=== PATIENT | male | born 1945 | race Caucasian/White ===

== ENCOUNTER 2016-10-09 22:50 | Inpatient (IN) | payer OTHER ==
[~2016-10-09] VITALS: Ht 167.6 cm; Wt 111.5 kg
[~2016-10-09 22:50] MED LIST: ASCO500T16 PO; B CO1CAP2 PO; CHOL1TAB42 PO; DIGO0.1267 PO; FRS/40 PO; HYDR-4079 PO; LISI-788 PO; LOVA10TA3 PO; MULT-506 PO; OMEP40CA PO; POTA20TA16 PO
[2016-10-09] MEDS ORDERED: HYDROCODONE/ACETAMOPHEN 5/325MG TAB PO ONE (23:45)
[2016-10-10] MEDS ORDERED: OXYC-164 PO (01:51)
--- NOTE | 2016-10-10 02:05 | EMERGENCY ROOM VISIT NOTE ---
ED Visit Note First contact with patient: 23:30 I saw this patient in conjunction with Farhan Key PA-C. I agree with his decision-making and treatment plan.
[2016-10-10] MEDS ORDERED: ONDANSETRON INJ 2 MG/ML 2 ML VIAL IV PRN (02:30)
[2016-10-10] MEDS ORDERED: OXYCODONE HCL IR 5 MG TAB (IMMEDIATE RELEASE) ONE (02:33)
[2016-10-10] MEDS: OXYCODONE HCL IR 5 MG TAB (IMMEDIATE RELEASE) PO PRN ×4 (02:36→21:30)
[2016-10-10] MEDS ORDERED: ALBUTEROL 0.083% NEBU SOLN 3 ML VIAL INH PRN (02:45)
[2016-10-10] MEDS ORDERED: IV FLUIDS COMPLETED PRN (02:45)
--- NOTE | 2016-10-10 03:34 | HISTORY & PHYSICAL EXAMINATION ---
DATE OF ADMISSION: 10/09/2016 PRIMARY CARE PHYSICIAN: Dr. Perry. CHIEF COMPLAINT: Status post fall in ice with the injury to the left knee. HISTORY OF PRESENT COMPLAINT: He is a 71-year-old male with significant past medical history including Yairvpk-Nivgo-Pswsf disease with bilateral drop feet, hypertensive heart disease, type 2 diabetes, atrial fibrillation, COPD, chronic kidney disease, peripheral vascular disease, tobacco use/disorder, apparently was outside and walking with a walker and he slipped on ice and fell and injured the left knee with swelling of the knee joint and painful knee joint. He could not get up and ambulance was called in and he was brought into the Emergency Room for further evaluation. At ER x-ray did show swelling in the patellar area, but no fracture, but he was unable to move around. From that point, he was advised for admission. 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 PAST SURGICAL HISTORY: Laparoscopic cholecystectomy, partial amputation of toes 10 years before, neck C-spine fusion by Dr. Conde in 2013. FAMILY HISTORY: Mother had CAD along with COPD. SOCIAL HISTORY: He is single. He has 4 children. He lives alone. He gets some home health. He smokes about half a pack to 1 pack per day. He does not drink and he has been mobile with a walker and he uses a walking boot in both the legs. REVIEW OF SYSTEMS: CENTRAL NERVOUS SYSTEM: No headache, no blurred vision, no numbness or tingling in the extremities negative. RESPIRATORY: No fevers, chills or rigors. No cough or phlegm. No shortness of breath. CARDIOVASCULAR: No chest pain, palpitation. GASTROINTESTINAL: No abdominal pain, nausea, vomiting. GENITOURINARY: No problem with urine or bowel habits. MUSCULOSKELETAL: He does have pain in the left knee with swelling status post fall and injury. Generally he does have swelling in both the legs, chronic in nature with some chronic skin changes and deformity in both the feet. ENT: No acute symptoms. ALLERGIES: PENICILLIN. MEDICATIONS: He has been on ascorbic acid 5 mg daily, aspirin 81 mg daily, Coreg 12.5 mg b.i.d., digoxin 0.125 mg daily, Advair Diskus 250/50 one puff b.i.d., Neurontin 300 mg t.i.d., Glimepiride 2 mg daily, lisinopril/HCTZ 1 tablet daily 20 mg/25, magnesium 400 mg daily, metformin 1000 mg b.i.d., multivitamin 1 tablet daily, niacin extended release 1000 mg twice daily, Flomax 0.4 mg daily, B complex 1 tablet daily, vitamin D 5000 units daily, Mevacor 10 mg at bedtime, omeprazole 40 mg daily, and oxycodone 10 mg q. 6 hourly p.r.n. PHYSICAL EXAMINATION: GENERAL: On examination in the Emergency Room, he was having some pain in the left knee, especially with any movement. HEENT: Unremarkable. VITAL SIGNS: Temperature was 36.6, pulse was 79, blood pressure 132/77, saturation 95% on room air. HEENT: Unremarkable. NECK: Supple. No JVD, no bruit. CHEST: Clear to auscultation bilaterally. HEART: S1, S2 regular. ABDOMEN: Soft, benign, nontender, no organomegaly. Bowel sounds present. EXTREMITIES: Bilaterally edema 1+, chronic skin changes and deformity of both the feet. Examination of the left knee showed swelling of the left knee, especially anteriorly, there may be fluid in the knee joint and some minor abrasion involving the anterior aspect of the knee. CENTRAL NERVOUS SYSTEM: Alert, awake, oriented x3. LABORATORY DATA: Noted today CBC, PRP, PT INR pending. X-ray of the knee did show swelling of the knee joint, but no definite fracture. The full report has been pending. IMPRESSION AND PLAN: 1. Mechanical fall with injury to the left knee. He has swelling of the left knee with some fluid, no obvious fracture. He cannot ambulate with this pain. He will be admitted to medical floor. Ortho evaluation in the morning. PT, OT and go from there. 2. Diabetes type 2. We will hold his oral diabetic medications and put him on sliding scale coverage while in the hospital. Check hemoglobin A1c. 3. Chronic obstructive pulmonary disease, moderate in nature. Continue with his inhalers. No acute exacerbations. 4. Nffchkr-Mkwdu-Rovid disease, has bilateral footdrop and uses specialized foot in both the legs. 5. Paroxysmal atrial fibrillation, does take only aspirin, but no anticoagulation, no acute issues at this time. 6. Chronic kidney disease, seems to be stable. We will monitor. 7. Hypertriglyceridemia. Continue with current medications. Will check his level tomorrow. 8. Gastrointestinal prophylaxis with proton pump inhibitors. 9. Deep venous thrombosis prophylaxis with subQ heparin. CODE STATUS: He will be a full code. In my clinical judgment, the beneficiary meets criteria as per CMS for 2 midnight stay in the hospital. PRABHAKAR
[2016-10-10 04:05] VITALS: BP 145/89; PULSE 78; TEMP 36.6; Ht 167.6 cm; Wt 111.5 kg
[2016-10-10] MEDS ORDERED: GLUCAGON FOR INJ 1 MG VIAL SQ PRN (04:15)
[2016-10-10] MEDS ORDERED: GLUCOSE 10 TABS/TUBE PO PRN (04:15)
[2016-10-10] MEDS ORDERED: GLUCOSE 40% GEL 15 GM TUBE PO PRN (04:15)
[2016-10-10] MEDS ORDERED: DEXTROSE 50% 50 ML SYR IV PRN (04:15)
[2016-10-10] MEDS ORDERED: NURSING VERBAL MED ORDER ONE (06:30)
[2016-10-10] MEDS ORDERED: OXYCODONE HCL IR 5 MG TAB (IMMEDIATE RELEASE) PO STA (06:30)
[2016-10-10 06:44] LABS: HEMATOCRIT 44.3 % (42-52); MEAN CELL VOLUME 92.7 fL (80-100); MEAN CORPUSCULAR HEMOGLOBIN 31.4 pg (25-34); MEAN CORPUSCULAR HGB CONC 33.9 g/dl (32-36); MEAN PLATELET VOLUME 11.6 fL (7.4-10.4); PLATELET COUNT 163 K/uL (130-400); RED BLOOD COUNT 4.78 M/uL (4.7-6.1); WHITE BLOOD COUNT 9.53 K/uL (4.8-10.8)
[2016-10-10 06:52] LABS: PARTIAL THROMBOPLASTIN RATIO 1.1; PROTHROMBIN TIME (PATIENT) 10.7 SECONDS (9.0-12.0)
[2016-10-10 07:05] VITALS: BP 123/68; PULSE 71; TEMP 36.6; O2SAT 93
[2016-10-10 07:15] LABS: BUN/CREATININE RATIO 25.9 (10-20); CALCIUM 9.5 mg/dl (8.5-10.1); CREATININE 0.86 mg/dl (0.60-1.40); POTASSIUM 3.8 mmol/L (3.5-5.1)
--- NOTE | 2016-10-10 07:34 | EMERGENCY ROOM VISIT NOTE ---
History First contact with patient: 23:30 Chief Complaint: KNEEPAIN Stated Complaint: DIABETES 1.5, MANAGED TYPE 2; INJURY-LEFT KNEE History of Present Illness The patient is a 71 year old male who presents to the Emergency Department via EMS for evaluation of his LEFT knee injury. The patient reports that he was ambulating outside his apartment complex this evening when he slipped on ice causing him to fall under a bent LEFT knee. He reports that he was unable to gather himself from the ground which forced him to contact emergency medical services. He initially was helped into his house, but it was obvious that he was unable to bear weight on the affected knee which prompted them to bring the patient to the emergency Department for further evaluation and management. The patient reports that he already walks with a walker secondary to weakness and instability. He reports increasing pain with attempts at weightbearing. He rates his current discomfort as an 8/10. He denies any numbness or tingling into the distal extremity. He denies any headaches, dizziness, lightheadedness , or chest pain prior to the fall. Currently, he denies any neck pain, headaches, chest pain, abdominal pain, low back pain, or other injury. The patient does take hydrocodone daily for ongoing pain control. He has not taken any medications prior to arrival in the emergency department. Review of Systems A complete 10-point Review of Systems was discussed with the patient, with pertinent positives and negatives listed in the History of Present Illness. All remaining Review of Systems questions can be considered negative unless otherwise specified. Past Medical/Surgical History Medical Problems: (1) Atrial fibrillation (2) Benign hypertension (3) Wrupopm-Rhger-Smjlv disease (4) Cholecystitis (5) CMT (Kgeqbvl-Uhjmn-Skeug disease) (6) COPD (chronic obstructive pulmonary disease) (7) Diabetes 1.5, managed as type 2 (8) Diabetes mellitus type 2 (9) Emphysema (10) Heart failure (11) Hyperlipidemia (12) Injury of left knee (13) Spinal stenosis in cervical region (14) Tobacco user Surgical Problems: (1) Hx of tonsillectomy (2) S/P cervical spinal fusion Family History Diabetes mellitus FHx: cancer FHx: gallbladder disease FHx: lung disease Hypertension Social History Smoking Status: Current Every Day Smoker Alcohol Use: none Drug Use: none Marital Status: Occupation Status: disabled Current/Historical Medications Scheduled Ascorbic Acid (Ascorbic Acid), 500 MG PO DAILY Aspirin Enteric Coated (Ecotrin Or Generic), 81 MG PO DAILY B Complex W/ C (Super B Complex/C), 1 TAB PO DAILY Carvedilol (Coreg), 12.5 MG PO BID Cholecalciferol (Vitamin D), 5,000 UNITS PO QPM Digoxin (Lanoxin), 0.125 MG PO DAILY Fluticasone Prop/Salmeterol (Advair Diskus 250/50 60 Dose), 1 PUFF INH BID Gabapentin (Neurontin), 300 MG PO TID Glimepiride (Glimepiride), 2 MG PO DAILY Lisinopril/Hctz (Zestoretic 20MG/25MG), 1 TAB PO DAILY Lovastatin (Mevacor), 10 MG PO HS Magnesium Oxide (Mag-Ox), Unknown Dose PO DAILY Metformin Hcl (Glucophage), 1,000 MG PO BID Multivitamin (Multivitamin), 1 TABLET PO DAILY Niacin Ext Rel (Niaspan Ext Rel), 1,000 MG PO AMHS Omeprazole (Prilosec), 40 MG PO DAILY Tamsulosin Hcl (Flomax), 0.4 MG PO HS Scheduled PRN Oxycodone Hcl (Oxycodone Hcl), 10 MG PO Q6 PRN for Pain Allergies Coded Allergies: Penicillins (Verified Allergy, Mild, RASH, 10/10/16) Physical Exam Vital Signs Date Time Temp Pulse Resp B/P Pulse Ox O2 Delivery O2 Flow Rate FiO2 10/10/16 02:13 81 18 130/70 94 Room Air 10/09/16 22:59 36.6 79 16 132/77 95 Room Air Pain Rating (0-10): 8 Physical Exam VITAL SIGNS - Vital signs and nursing notes were reviewed. GENERAL - 71-year-old male appearing his stated age and in noticeable discomfort throughout the exam. MUSCULOSKELETAL - LEFT knee with moderate edema and abrasion in the infrapatellar area. Moderate tenderness to palpation appreciated over the anterior surface of the knee and infrapatellar area. +3/5 strength appreciated LEFT versus right secondary to patient discomfort. Unable to lift his heel from the bed. Pain with manipulation of the patella. NEUROLOGIC/VASCULAR - Neurovascularly intact distally with +2/5 dorsalis pedis pulses palpated bilaterally. Normal sensation to light and sharp touch appreciated distally. Medical Decision & Procedures ER Provider Diagnostic Interpretation: X-ray of the LEFT knee demonstrates moderate degenerative changes in the infrapatellar area without acute fracture appreciated. The patella does appear to be high riding. Radiologist's impression unavailable at the time of dictation. Medications Administered Medications (Trade) Dose Ordered Sig/Katherine Route Start Time Stop Time Status Last Admin Dose Admin Acetaminophen/ Hydrocodone Bitart (Melville 5/325 Tab) 2 tab NOW ONCE PO 10/09/16 23:45 10/09/16 23:46 DC 10/09/16 23:45 2 TAB Oxycodone HCl (Roxicodone Immediate Rel Tab) 10 mg Q6 PRN PO 10/10/16 02:15 11/09/16 02:14 10/10/16 02:36 10 MG ED Course Patient was seen and evaluated by myself. Patient was provided 2 Melville for his complaints of pain. X-ray of the affected knee was obtained. Imaging results were reviewed by myself and my attending physician and reviewed with the patient who acknowledges understanding. The patient was placed in a knee immobilizer. Ambulatory trial was performed with nursing staff. The patient was found to be very unsteady on his feet and unable to bear significant amounts of weight. Daughter is not comfortable with the patient being discharged home and patient does not feel that he will be able to ambulate well either. Case was reviewed with the [facility] hospitalist who agrees to admit the patient for evaluation and management. Patient admitted in stable condition. Medical Decision Given the patient's presentation and exam findings, I did elect to perform the above-mentioned workup. The patient sustained a mechanical fall on the anterior surface of the knee. He has moderate reproducible tenderness to palpation in this area. I do not appreciate an acute fracture through the patella, however have the patella does appear somewhat high riding on lateral view of the x-ray. There is concern for possible patella tendon injury versus rupture, particularly given the fact the patient is unable to perform full extension while laying flat. His pain was adequately controlled the emergency department, however he had increasing pain and instability with attempted ambulation even with a walker. The patient's medical history is complicated by his Wvjlphq-Sujbp-Qzesa which already registered patient weak and unstable. Because of this, I'm not comfortable with the patient being discharged home in the care of his daughter. I do feel that he warrants evaluation from orthopedics as well as possible rehabilitation placement pending x-ray readings from radiology. Regardless, the patient will be admitted to the [facility] for continued management. Patient admitted in stable condition. In the evaluation and treatment of this patient, the following differential diagnoses were considered: Patellar Fracture, Tibial Plateau Fracture, Distal Femur Fracture, ACL Injury, PCL Injury, Collateral Ligament Injury, Pes Anserine Bursitis, Maisonneuve Fracture. Impression Primary Impression: Contusion of knee, left Additional Impressions: Fall due to ice or snow Patellar tendon rupture Departure Information Dispostion Still a Patient Condition FAIR Referrals Mohan Perry M.D. (PCP) Forms HOME CARE DOCUMENTATION FORM, IMPORTANT VISIT INFORMATION Patient Instructions [facility] Problem Qualifiers Additional Impressions: Fall due to ice or snow Encounter type: initial encounter Qualified Codes: W00.9XXA - Unspecified fall due to ice and snow, initial encounter Patellar tendon rupture Encounter type: initial encounter Laterality: left Qualified Codes: S86.812A - Strain of other muscle(s) and tendon(s) at lower leg level, left leg , initial encounter
--- NOTE | 2016-10-10 09:15 | DIAGNOSTIC IMAGING REPORT ---
LEFT KNEE 3 VIEWS CLINICAL HISTORY: Fall with left knee pain. FINDINGS: AP, crosstable lateral, and sunrise views of the left knee are obtained. No prior studies are available for comparison at the time of dictation. The skeletal structures are osteopenic. There is no radiographic evidence of fracture. There is moderate tricompartmental degenerative joint space narrowing, greatest in the lateral and patellofemoral compartments. There are large marginal osteophytes as well as large patellar enthesophytes. Chondrocalcinosis is present in the medial and lateral compartment. There is a joint effusion. Prepatellar soft tissue edema is noted. Foci of atherosclerotic calcification are seen in the popliteal artery. IMPRESSION: 1. Joint effusion and prepatellar soft tissue swelling. No acute fracture is identified. 2. Osteopenia with degenerative change and chondrocalcinosis as above. Electronically signed by: Eric Escalera M.D. 10/10/2016 9:13 AM Dictated Date/Time: 10/10/2016 9:11 AM
[2016-10-10] MEDS: HEPARIN SOD 5000 UNIT/0.5 ML CARP SQ SCH ×2 (10:11→16:03)
[2016-10-10] MEDS: INSULIN ASPART 100 UNITS/ML 3 ML PEN SC SCH ×4 (10:13→21:19)
[2016-10-10] MEDS: FLUTICASONE/SALMETEROL 250/50 (ADVAIR) 14 PUFF/1 INHALER INH SCH ×2 (10:14→21:01)
[2016-10-10] MEDS: ASPIRIN 81 MG ECTAB PO SCH (10:15)
[2016-10-10] MEDS: MAGNESIUM OXIDE 400 MG TAB PO SCH (10:16)
[2016-10-10] MEDS: GABAPENTIN 300 MG CAP PO SCH ×3 (10:16→21:01)
[2016-10-10] MEDS: MULTIVITAMIN TAB PO SCH (10:16)
[2016-10-10] MEDS: NIASPAN 500 MG TABCR PO SCH ×2 (10:17→21:06)
[2016-10-10] MEDS: LISINOPRIL/HCTZ 20/25MG TAB PO SCH (10:18)
[2016-10-10] MEDS: PANTOprazole SOD 40 MG TAB PO SCH (10:19)
[2016-10-10] MEDS: CARVEDILOL 12.5 MG TAB PO SCH ×2 (10:19→21:04)
[2016-10-10] MEDS: ASCORBIC ACID 500 MG TAB PO SCH (10:19)
[2016-10-10] MEDS: VITAMIN B COMPLEX TAB PO SCH (10:19)
--- NOTE | 2016-10-10 12:29 | Orthopedic Progress Note ---
Orthopedic Progress Note Date of Service Oct 10, 2016. Subjective Additional Notes: Fall onto left knee. Consult dictated. Objective See consult for exam. Date Time Temp Pulse Resp B/P Pulse Ox O2 Delivery O2 Flow Rate FiO2 10/10/16 07:30 Room Air 10/10/16 07:05 36.6 71 16 123/68 93 Room Air 10/10/16 04:05 Room Air 10/10/16 04:05 36.6 78 18 145/89 Room Air 10/10/16 03:31 78 18 145/89 95 10/10/16 02:13 81 18 130/70 94 Room Air 10/09/16 22:59 36.6 79 16 132/77 95 Room Air Laboratory Results 24 Hours: Test 10/10/16 06:18 Hematocrit 44.3 % Hemoglobin 15.0 g/dL Prothromb Time International Ratio 1.0 Prothrombin Time 10.7 SECONDS Assessment & Plan Assessment: Left knee effusion Left knee contusion with probable acute on chronic pain/effusion of left knee osteoarthritis. Plan: Consult dictated to consider aspiration and injection. The meds have been sent by pharmacy. Dr. Potts reviewed the films and would like to obtain a CT of the left knee prior to any steroid injection. CT left knee ordered to r/o tibial plateau fx. Discharge Planning Discharge Planning: uncertain
--- NOTE | 2016-10-10 12:43 | CONSULTATION REPORT ---
DATE OF ADMISSION: 10/10/2016 SUBJECTIVE AND CHIEF COMPLAINT: Left knee pain. HISTORY OF PRESENT ILLNESS: This is a patient who sustained a fall yesterday on 10/09/2016 when he slipped on ice surface. He states he has fallen on to the anterior aspect of the left knee; however, when he fell the knee also flexed behind him significantly more than what happened in recent years. He has significant pain, swelling and was unable to ambulate. He was brought to the Emergency Room here at [facility] where x-rays were performed because of his inability to ambulate and his history of living alone, it was felt that he should be admitted for orthopedic evaluation and also for pain management. Today, he states that the knee is feeling a little bit better that it can be examined a little more today, whereas yesterday he was unable to have the Emergency Room staff do much of an exam. PAST MEDICAL HISTORY: Zfmmfst-Jisad-Nopdw with bilateral footdrop, bilateral lower extremity neuropathy, hypertension, coronary artery disease, type 2 diabetes, atrial fibrillation, COPD, chronic kidney disease, peripheral vascular disease, history of tobacco use, GERD, hypercholesterolemia and benign prostatic hypertrophy. PAST SURGICAL HISTORY: Cholecystectomy, partial amputation of toes and a C spine fusion by Dr. Conde in 2012. FAMILY HISTORY: Noncontributory. SOCIAL HISTORY: The patient is single. He has 4 children and he lives alone. He is a tobacco user. He smokes approximately half to 1 pack per day. Denies alcohol use. ALLERGIES: No known drug allergies. CURRENT MEDICATIONS: Aspirin 81 mg p.o. daily, Coreg 12.5 mg b.i.d., ascorbic acid 5 mg p.o. daily, digoxin 0.125 mg p.o. daily, Advair Diskus 250/50 one puff b.i.d., Neurontin 300 mg p.o. t.i.d., glimepiride 2 mg 1 p.o. daily, lisinopril/HCTZ 20/25 mg 1 p.o. daily, magnesium 400 mg p.o. daily, metformin 1000 mg p.o. b.i.d., multivitamin p.o. daily, niacin extended release 1000 mg p.o. b.i.d., Flomax 0.4 mg p.o. daily, vitamin B complex 1 tablet p.o. daily, vitamin D 5000 units p.o. daily, Mevacor 10 mg 1 p.o. at bedtime, omeprazole 40 mg daily, and oxycodone 10 mg one every 6 hours p.r.n. pain. OBJECTIVE PHYSICAL EXAMINATION: GENERAL: The patient is alert and oriented x3. He is in no acute distress. He is a well-dressed, well-nourished 71-year-old male whose affect is appropriate. He is lying comfortably in bed; however, with any motion of his left knee there is moderate to severe pain within the left knee. MUSCULOSKELETAL: Upon inspection of the patient's left lower extremity he is noted to have moderate swelling of the left lower extremity, he has edema in bilateral lower extremities to the knee. There is an abrasion on the anterior aspect of the left knee that is covered with a bandage. There is no ecchymosis or erythema noted. He is noted to have a moderate joint effusion within the left knee. With palpation of the left knee, he has tenderness throughout the entire knee particularly at the medial aspect of the knee. There is no obvious palpable deformities. With motion of the patella, with the leg straight there is pain elicited. Any passive range of motion is difficult with the patient lying down. However, the patient was able to sit up at the bedside with passive flexion with gravity to approximately 80 degrees of flexion. With active range of motion he is able to extend his knee to approximately negative 15 degrees demonstrating the extensor mechanism of the knee to be intact. Strength testing of lower extremity is inhibited secondary to pain. SKIN: As previously noted, there is an abrasion on the anterior aspect of the left knee; however, there are no other scars or rashes noted. NEUROLOGIC: Sensation is decreased bilateral lower extremities in a stocking distribution. Neurovascularly the patient is intact left lower extremity with dorsalis pedis and posterior tib pulse +1/4. Capillary refill is approximately 2 seconds. Light touch is intact, however, there are paresthesias noted. The knee is slightly worsened on the left side today possibly secondary to inflammation within the left knee. X-RAY EXAM: Multiple views of the left knee demonstrate moderate to severe tricompartmental osteoarthritis of the knee. There is subchondral sclerosis and significant spurring noted. There are no fractures or dislocations noted. ASSESSMENT AND DIAGNOSES: 1. Left knee effusion. 2. Left knee contusion with fall on to the anterior aspect of the left knee and a hyperflexion injury. 3. Left knee osteoarthritis with probable acute on chronic inflammation within the left knee. PLAN: Above assessment was discussed with the patient and his daughter who is present. The daughter was also on the phone with another sibling with whom I had a conversation throughout the exam. At this time, it was discussed that the patient was feeling well enough to be discharged home and medicine felt that he was doing well enough, he certainly could be discharged home with a left knee brace or possible left knee immobilizer for comfort and follow up as an outpatient in our [facility] office this week for probable aspiration and injection of the left knee. If he is going to be here throughout today and overnight until tomorrow, we will order a 60 mL syringe with an 18 gauge needle for aspiration of the left knee and also an injection of 4 mL of 0.5% Marcaine plain and 2 mL of 80 mg per mL of Depo-Medrol to be injected into the knee after the aspiration is performed. We will continue to plan for aspiration and injection tomorrow if the patient is going to be here. Otherwise, we will see him on an outpatient basis. Thank you for the consult and allowing our participation in the care of this patient. We will continue to follow the patient through his admission. ADDENDUM: X-rays were reviewed by Dr. Potts and a CT of the knee was recommended to r/o occult fx. Will await results of CT scan before any aspiration and injection. PRABHAKAR
[2016-10-10] MEDS ORDERED: BUPIVACAINE 0.5 % 5 MG/1 ML MPF 30ML VIAL IA SCH (13:00)
[2016-10-10] MEDS ORDERED: METHYLPREDNISOLONE ACETATE 80 MG/ML VIAL IA SCH (13:00)
--- NOTE | 2016-10-10 14:09 | DIAGNOSTIC IMAGING REPORT ---
CT SCAN OF THE LEFT KNEE WITHOUT IV CONTRAST CLINICAL HISTORY: Left knee injury. COMPARISON STUDY: Radiograph of left knee dated 10/09/2016. TECHNIQUE: CT scan of left knee is performed from the distal femur to the proximal tibia and fibula. Images are reviewed in the axial, sagittal, and coronal planes. IV contrast was not administered for this examination. CT DOSE: 900.73 mGy.cm FINDINGS: The skeletal structures are osteopenic. There is mild cortical irregularity and buckling along the peripheral aspect of the medial femoral condyle. This is best seen on axial image #92. An impaction type fracture is suspected. No additional fracture is identified in the left knee. There is moderate tricompartmental degenerative joint space narrowing. Chondrocalcinosis is observed medial and lateral compartments. There are large marginal osteophytes as well as large patellar enthesophytes. There is a moderate joint effusion. Soft tissue edema is present around the knee. A benign-appearing sclerotic focus is noted in the proximal tibial metaphysis. There is near complete fatty atrophy of the regional musculature. Atherosclerotic calcification is observed in the popliteal artery. A popliteal cyst is incidentally noted. IMPRESSION: 1. There is mild cortical irregularity identified along the peripheral cortex of the medial femoral condyle. An impaction type fracture is suspected. 2. No additional findings are concerning for fracture. 3. Soft tissue edema, joint effusion, and popliteal cyst. 4. Osteopenia with degenerative change and chondrocalcinosis as above. Electronically signed by: Eric Escalera M.D. 10/10/2016 2:08 PM Dictated Date/Time: 10/10/2016 2:00 PM
[2016-10-10 14:50] VITALS: BP 110/66; PULSE 65; TEMP 36.5; O2SAT 92
[2016-10-10] MEDS: DIGOXIN 0.125 MG TAB PO SCH (16:05)
--- NOTE | 2016-10-10 19:08 | Progress Note ---
Medicine Progress Note Date & Time of Visit: Oct 10, 2016 at 19:03. Subjective Patient reports ongoing pain in left knee, states he is unable to move his knee due to excruciating pain and has not been able to ambulate or weight bear without significant pain. No other complaints at this time. Denies any N/V, CP, or SOB. Objective Last 8 Hrs Date Time Temp Pulse Resp B/P Pulse Ox O2 Delivery O2 Flow Rate FiO2 10/10/16 16:05 65 10/10/16 15:55 Room Air 10/10/16 14:50 36.5 65 18 110/66 92 Room Air Physical Exam: GENERAL: Patient is in no acute distress. HEENT: No acute trauma, normocephalic, mucous membranes moist, no nasal congestion, no scleral icterus. NECK: No stridor, trachea is midline. LUNGS: Clear to auscultation bilaterally, no wheeze, no rhonchi, breath sounds equal. HEART: Without murmurs gallops or rubs, regular rate and rhythm. ABDOMEN: Soft, nontender, bowel sounds positive EXTREMITIES: No cyanosis; left swollen, tender NEUROLOGIC: Oriented x 3, no acute motor or sensory deficits, no focal weakness. SKIN: No rash, no jaundice, no diaphoresis. Laboratory Results: Last 24 Hours Test 10/10/16 06:18 10/10/16 07:00 10/10/16 16:28 White Blood Count 9.53 K/uL Red Blood Count 4.78 M/uL Hemoglobin 15.0 g/dL Hematocrit 44.3 % Mean Corpuscular Volume 92.7 fL Mean Corpuscular Hemoglobin 31.4 pg Mean Corpuscular Hemoglobin Concent 33.9 g/dl RDW Standard Deviation 49.3 fL RDW Coefficient of Variation 14.5 % Platelet Count 163 K/uL Mean Platelet Volume 11.6 fL Prothrombin Time 10.7 SECONDS Prothromb Time International Ratio 1.0 Activated Partial Thromboplast Time 28.5 SECONDS Partial Thromboplastin Ratio 1.1 Sodium Level 138 mmol/L Potassium Level 3.8 mmol/L Chloride Level 99 mmol/L Carbon Dioxide Level 28 mmol/L Anion Gap 11.0 mmol/L Blood Urea Nitrogen 22 mg/dl Creatinine 0.86 mg/dl Est Creatinine Clear Calc Drug Dose 95.0 ml/min Estimated GFR () 102.5 Estimated GFR (Non- 88.5 BUN/Creatinine Ratio 25.9 Random Glucose 248 mg/dl Calcium Level 9.5 mg/dl Hepatitis C Antibody Screen NEG Bedside Glucose 229 mg/dl 222 mg/dl Assessment & Plan See H&P from this AM for more details. Current Inpatient Medications: Current Inpatient Medications Medications (Trade) Dose Ordered Sig/Katherine Route Start Time Stop Time Status Last Admin Dose Admin Ascorbic Acid (Vitamin C Tab) 500 mg DAILY PO 10/10/16 09:00 11/09/16 08:59 10/10/16 10:19 500 MG Aspirin (Ecotrin Tab) 81 mg DAILY PO 10/10/16 09:00 11/09/16 08:59 10/10/16 10:15 81 MG Carvedilol (Coreg Tab) 12.5 mg BID PO 10/10/16 09:00 11/09/16 08:59 10/10/16 10:19 12.5 MG Digoxin (Lanoxin Tab) 0.125 mg DAILY@1600 PO 10/10/16 16:00 11/09/16 15:59 10/10/16 16:05 0.125 MG Salmeterol Xinafoate/ Fluticasone (Advair Diskus 250/50 Inh) 1 puff BID INH 10/10/16 09:00 11/09/16 08:59 10/10/16 10:14 1 PUFF Gabapentin (Neurontin Cap) 300 mg TID PO 10/10/16 09:00 11/09/16 08:59 10/10/16 13:11 300 MG HCTZ/Lisinopril (Prinzide 20-25MG Tab) 1 tab DAILY PO 10/10/16 09:00 11/09/16 08:59 10/10/16 10:18 1 TAB Magnesium Oxide (Mag-Ox Tab) 400 mg DAILY PO 10/10/16 09:00 11/09/16 08:59 10/10/16 10:16 400 MG Multivitamins (Multivitamin Tab) 1 tab DAILY PO 10/10/16 09:00 11/09/16 08:59 10/10/16 10:16 1 TAB Niacin (Niaspan Extended Rel Tab) 1,000 mg AMHS PO 10/10/16 09:00 11/09/16 08:59 10/10/16 10:17 1,000 MG Tamsulosin HCl (Flomax Cap) 0.4 mg HS PO 10/10/16 21:00 11/09/16 20:59 Vitamin B Complex (Vitamin B Complex) 1 tab DAILY PO 10/10/16 09:00 11/09/16 08:59 10/10/16 10:19 1 TAB Cholecalciferol (Vitamin D Tab) 5,000 inter.unit QPM PO 10/10/16 21:00 11/09/16 20:59 Lovastatin (Mevacor Tab) 10 mg HS PO 10/10/16 21:00 11/09/16 20:59 Pantoprazole Sodium (Protonix Tab) 40 mg DAILY PO 10/10/16 09:00 11/09/16 08:59 10/10/16 10:19 40 MG Oxycodone HCl (Roxicodone Immediate Rel Tab) 10 mg Q6 PRN PO 10/10/16 02:15 11/09/16 02:14 10/10/16 16:03 10 MG Heparin Sodium (Porcine) (Heparin Sq 5000 Unit/0.5ml) 5,000 unit Q8H SQ 10/10/16 08:00 11/09/16 07:59 10/10/16 16:03 5,000 UNIT Ondansetron HCl (Zofran Inj) 4 mg Q6H PRN IV 10/10/16 02:30 11/09/16 02:29 Albuterol Sulfate (Ventolin 0.083% 2.5MG/3ML Neb) 2.5 mg Q6R PRN INH 10/10/16 02:45 11/09/16 02:44 Miscellaneous (Iv Fluids Completed) 1 ea PRN PRN N/A 10/10/16 02:45 10/10/17 02:44 Insulin Aspart (novoLOG ASPART) SLIDING SCALE G... ACHS SC 10/10/16 07:00 11/09/16 06:59 10/10/16 18:47 8 UNITS Glucose (Glucose 40% Gel) 15-30 GRAMS 15 GRAMS... UD PRN PO 10/10/16 04:15 11/09/16 04:14 Glucose (Glucose Chew Tab) 4-8 Tablets 4 Tabl... UD PRN PO 10/10/16 04:15 11/09/16 04:14 Dextrose (Dextrose 50% 50ML Syringe) 25-50ML OF 50% DW IV FOR... UD PRN IV 10/10/16 04:15 11/09/16 04:14 Glucagon (Glucagon Inj) 1 mg UD PRN SQ 10/10/16 04:15 11/09/16 04:14
[2016-10-10] MEDS: LOVASTATIN 20 MG TAB PO SCH (21:02)
[2016-10-10] MEDS: TAMSULOSIN HCL 0.4 MG CAP PO SCH (21:03)
[2016-10-10] MEDS: CHOLECALCIFEROL 1000 INTER.UNIT TAB PO SCH (21:05)
[2016-10-10 23:10] VITALS: BP 152/78; PULSE 80; TEMP 37; O2SAT 90
[2016-10-11] MEDS: HEPARIN SOD 5000 UNIT/0.5 ML CARP SQ SCH ×4 (00:26→23:31)
[2016-10-11] MEDS: OXYCODONE HCL IR 5 MG TAB (IMMEDIATE RELEASE) PO PRN ×4 (05:35→23:30)
[2016-10-11 06:50] LABS: CHOLESTEROL/HDL RATIO 4.8
[2016-10-11 07:40] LABS: ESTIMATED AVERAGE GLUCOSE 223 mg/dl; HA1C FLAG Normal (Normal)
[2016-10-11 08:11] VITALS: BP 124/74; PULSE 91; TEMP 37.3; O2SAT 90
[2016-10-11] MEDS: FLUTICASONE/SALMETEROL 250/50 (ADVAIR) 14 PUFF/1 INHALER INH SCH ×2 (09:16→20:50)
[2016-10-11] MEDS: ASPIRIN 81 MG ECTAB PO SCH (09:18)
[2016-10-11] MEDS: MAGNESIUM OXIDE 400 MG TAB PO SCH (09:18)
[2016-10-11] MEDS: CARVEDILOL 12.5 MG TAB PO SCH ×2 (09:18→20:57)
[2016-10-11] MEDS: PANTOprazole SOD 40 MG TAB PO SCH (09:19)
[2016-10-11] MEDS: LISINOPRIL/HCTZ 20/25MG TAB PO SCH (09:19)
[2016-10-11] MEDS: MULTIVITAMIN TAB PO SCH (09:19)
[2016-10-11] MEDS: GABAPENTIN 300 MG CAP PO SCH ×3 (09:19→20:52)
[2016-10-11] MEDS: NIASPAN 500 MG TABCR PO SCH ×2 (09:19→20:51)
[2016-10-11] MEDS: VITAMIN B COMPLEX TAB PO SCH (09:20)
[2016-10-11] MEDS: ASCORBIC ACID 500 MG TAB PO SCH (09:20)
[2016-10-11] MEDS: INSULIN ASPART 100 UNITS/ML 3 ML PEN SC SCH ×4 (09:23→20:57)
--- NOTE | 2016-10-11 10:32 | Orthopedic Progress Note ---
Orthopedic Progress Note Date of Service Oct 11, 2016. Subjective Additional Notes: Painful this AM. No new complaints. Nursing relates that the current Immobilizer is too big for his leg. They are in the process of getting him another size. Pt sitting at the side of the bed without immobilizer on. Objective calves soft nontender, N/V intact, A&O x3, toes mobile Left knee with effusion. Date Time Temp Pulse Resp B/P Pulse Ox O2 Delivery O2 Flow Rate FiO2 10/11/16 08:11 37.3 91 20 124/74 90 Room Air 10/11/16 00:15 Room Air 10/10/16 23:10 37.0 80 18 152/78 90 Room Air 10/10/16 16:05 65 10/10/16 15:55 Room Air 10/10/16 14:50 36.5 65 18 110/66 92 Room Air Assessment & Plan Assessment: Left knee effusion Left knee contusion with Medial Femoral Condyle cortical fracture noted on CT. Plan: With noted fracture, no injection will be given at this time. Plan for immobilizer for LLE and PWB with ambulation. If a proper size immobilizer can't be fitted, we may have to have [employer] from orthotics to make a hinged knee brace. Inhouse Planning Pain Management: Oxy IR Discharge Planning Discharge Planning: uncertain
[2016-10-11] MEDS ORDERED: OXYCODONE/ACETAMINOPHEN 10/325MG TAB PO ONE (11:15)
[2016-10-11 15:24] VITALS: BP 113/68; PULSE 69; TEMP 37.3; O2SAT 92
[2016-10-11] MEDS: DIGOXIN 0.125 MG TAB PO SCH (16:33)
--- NOTE | 2016-10-11 17:46 | Progress Note ---
Medicine Progress Note Date & Time of Visit: Oct 11, 2016 at 17:40. Subjective Patient reports feeling LLE pain despite taking the dose of pain medications he takes at home; has required additional doses of pain medication today as well. Still severely limited in mobility. Other than knee pain has no complaints. Denies any CP or SOB. Objective Last 8 Hrs Date Time Temp Pulse Resp B/P Pulse Ox O2 Delivery O2 Flow Rate FiO2 10/11/16 16:33 72 10/11/16 15:24 37.3 69 17 113/68 92 Room Air Physical Exam: GENERAL: Patient is in no acute distress. HEENT: No acute trauma, normocephalic, mucous membranes moist, no nasal congestion, no scleral icterus. NECK: No stridor, trachea is midline. LUNGS: Clear to auscultation bilaterally, no wheeze, no rhonchi, breath sounds equal. HEART: Without murmurs gallops or rubs, regular rate and rhythm. ABDOMEN: Soft, nontender, bowel sounds positive EXTREMITIES: No cyanosis; left swollen, tender NEUROLOGIC: Oriented x 3, no acute motor or sensory deficits, no focal weakness. SKIN: No rash, no jaundice, no diaphoresis. Laboratory Results: Last 24 Hours Test 10/10/16 20:39 10/11/16 05:50 10/11/16 08:07 10/11/16 11:46 Bedside Glucose 206 mg/dl 232 mg/dl 214 mg/dl Estimated Average Glucose 223 mg/dl Hemoglobin A1c 9.4 % Triglycerides Level 521 mg/dl Cholesterol Level 157 mg/dl HDL Cholesterol 33 mg/dl LDL Cholesterol, Calculated mg/dl VLDL Cholesterol, Calculated mg/dl Cholesterol/HDL Ratio 4.8 Test 10/11/16 17:17 Bedside Glucose 218 mg/dl Assessment & Plan Mechanical fall: -with CT of the knee showing: Left knee effusion, Left Medial Femoral Condylar cortical fracture -also with left knee contusion and persistent pain -continued pain control PRN -unable to ambulate with the pain; has a knee immobilizer and pain medications ordered -Ortho consulted, appreciate recs -PT, OT consulted -patient will likely need rehab upon discharge, CM consulted Diabetes mellitus Type II: poorly controlled -hold oral diabetic medications -place on sliding scale coverage while in the hospital with lantus -HbA1c: 9.4% COPD: chronic, moderate -not in acute exacerbation -continue with his home inhalers 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 Chronic kidney disease Stage I/II: -monitor -avoid nephrotoxins -at baseline Hypertriglyceridemia: -continue with current medications -labs show triglycerides over 500 Dispo: Await mera, placement. Current Inpatient Medications: Current Inpatient Medications Medications (Trade) Dose Ordered Sig/Katherine Route Start Time Stop Time Status Last Admin Dose Admin Ascorbic Acid (Vitamin C Tab) 500 mg DAILY PO 10/10/16 09:00 11/09/16 08:59 10/11/16 09:20 500 MG Aspirin (Ecotrin Tab) 81 mg DAILY PO 10/10/16 09:00 11/09/16 08:59 10/11/16 09:18 81 MG Carvedilol (Coreg Tab) 12.5 mg BID PO 10/10/16 09:00 11/09/16 08:59 10/11/16 09:18 12.5 MG Digoxin (Lanoxin Tab) 0.125 mg DAILY@1600 PO 10/10/16 16:00 11/09/16 15:59 10/11/16 16:33 0.125 MG Salmeterol Xinafoate/ Fluticasone (Advair Diskus 250/50 Inh) 1 puff BID INH 10/10/16 09:00 11/09/16 08:59 10/11/16 09:16 1 PUFF Gabapentin (Neurontin Cap) 300 mg TID PO 10/10/16 09:00 11/09/16 08:59 10/11/16 13:40 300 MG HCTZ/Lisinopril (Prinzide 20-25MG Tab) 1 tab DAILY PO 10/10/16 09:00 11/09/16 08:59 10/11/16 09:19 1 TAB Magnesium Oxide (Mag-Ox Tab) 400 mg DAILY PO 10/10/16 09:00 11/09/16 08:59 10/11/16 09:18 400 MG Multivitamins (Multivitamin Tab) 1 tab DAILY PO 10/10/16 09:00 11/09/16 08:59 10/11/16 09:19 1 TAB Niacin (Niaspan Extended Rel Tab) 1,000 mg AMHS PO 10/10/16 09:00 11/09/16 08:59 10/11/16 09:19 1,000 MG Tamsulosin HCl (Flomax Cap) 0.4 mg HS PO 10/10/16 21:00 11/09/16 20:59 10/10/16 21:03 0.4 MG Vitamin B Complex (Vitamin B Complex) 1 tab DAILY PO 10/10/16 09:00 11/09/16 08:59 10/11/16 09:20 1 TAB Cholecalciferol (Vitamin D Tab) 5,000 inter.unit QPM PO 10/10/16 21:00 11/09/16 20:59 10/10/16 21:05 5,000 INTER.UNIT Lovastatin (Mevacor Tab) 10 mg HS PO 10/10/16 21:00 11/09/16 20:59 10/10/16 21:02 10 MG Pantoprazole Sodium (Protonix Tab) 40 mg DAILY PO 10/10/16 09:00 11/09/16 08:59 10/11/16 09:19 40 MG Heparin Sodium (Porcine) (Heparin Sq 5000 Unit/0.5ml) 5,000 unit Q8H SQ 10/10/16 08:00 11/09/16 07:59 10/11/16 16:30 5,000 UNIT Ondansetron HCl (Zofran Inj) 4 mg Q6H PRN IV 10/10/16 02:30 11/09/16 02:29 Albuterol Sulfate (Ventolin 0.083% 2.5MG/3ML Neb) 2.5 mg Q6R PRN INH 10/10/16 02:45 11/09/16 02:44 Miscellaneous (Iv Fluids Completed) 1 ea PRN PRN N/A 10/10/16 02:45 10/10/17 02:44 Insulin Aspart (novoLOG ASPART) SLIDING SCALE G... ACHS SC 10/10/16 07:00 11/09/16 06:59 10/11/16 13:40 4 UNITS Glucose (Glucose 40% Gel) 15-30 GRAMS 15 GRAMS... UD PRN PO 10/10/16 04:15 11/09/16 04:14 Glucose (Glucose Chew Tab) 4-8 Tablets 4 Tabl... UD PRN PO 10/10/16 04:15 11/09/16 04:14 Dextrose (Dextrose 50% 50ML Syringe) 25-50ML OF 50% DW IV FOR... UD PRN IV 10/10/16 04:15 11/09/16 04:14 Glucagon (Glucagon Inj) 1 mg UD PRN SQ 10/10/16 04:15 11/09/16 04:14 Oxycodone HCl (Roxicodone Immediate Rel Tab) 10 mg Q4 PRN PO 10/11/16 18:00 10/25/16 17:59 10/11/16 17:32 10 MG Acetaminophen (Tylenol Tab) 650 mg Q6 PRN PO 10/11/16 17:00 11/10/16 16:59
--- NOTE | 2016-10-11 20:10 | PROGRESS NOTE ---
DATE: 10/11/2016 SUBJECTIVE: Ray was seen at the bedside today. He has complaints of pain in the left knee. Pain began after a mechanical fall. OBJECTIVE: Left knee examination shows moderate to large effusion in the knees. Calf is nontender. Knee is globally tender. Chronic Ivaonah-Dqpbq-Spbcu changes noted in both feet and hands. ASSESSMENT: Left nondisplaced hairline distal femur fracture. PLAN: I discussed the findings of the CAT scan with him. As exam does concur with fracture of the distal femur, we discussed options of treatment with immobilizer and ambulation as tolerated. I also discussed options of aspiration of the knee which would be a consideration if he has significant pain. I hope to try and avoid aspiration given that this would have slight increased risk of infection as well as bleeding. At this point of time, he will follow up in the orthopedic office in 10-14 days after discharge. He will continue on a knee immobilizer, but may take it off when in bed MTDD
[2016-10-11 20:45] VITALS: BP 123/65; PULSE 82
[2016-10-11] MEDS: TAMSULOSIN HCL 0.4 MG CAP PO SCH (20:51)
[2016-10-11] MEDS: CHOLECALCIFEROL 1000 INTER.UNIT TAB PO SCH (20:51)
[2016-10-11] MEDS: LOVASTATIN 20 MG TAB PO SCH (20:59)
[2016-10-11 23:18] VITALS: BP 105/64; PULSE 86; TEMP 37.1; O2SAT 92
[2016-10-12] MEDS: OXYCODONE HCL IR 5 MG TAB (IMMEDIATE RELEASE) PO PRN ×5 (03:38→20:54)
[2016-10-12 05:43] LABS: HEMATOCRIT 43.3 % (42-52); MEAN CELL VOLUME 93.3 fL (80-100); MEAN CORPUSCULAR HEMOGLOBIN 31.5 pg (25-34); MEAN CORPUSCULAR HGB CONC 33.7 g/dl (32-36); MEAN PLATELET VOLUME 11.2 fL (7.4-10.4); PLATELET COUNT 157 K/uL (130-400); RED BLOOD COUNT 4.64 M/uL (4.7-6.1); WHITE BLOOD COUNT 10.11 K/uL (4.8-10.8)
[2016-10-12 06:38] LABS: BUN/CREATININE RATIO 27.2 (10-20); CALCIUM 9.5 mg/dl (8.5-10.1); CREATININE 0.97 mg/dl (0.60-1.40); POTASSIUM 4.1 mmol/L (3.5-5.1)
[2016-10-12 07:28] VITALS: BP 109/70; PULSE 89; TEMP 36.8; O2SAT 88
[2016-10-12] MEDS: FLUTICASONE/SALMETEROL 250/50 (ADVAIR) 14 PUFF/1 INHALER INH SCH ×2 (08:39→20:51)
[2016-10-12] MEDS: ASPIRIN 81 MG ECTAB PO SCH (08:40)
[2016-10-12] MEDS: MAGNESIUM OXIDE 400 MG TAB PO SCH (08:40)
[2016-10-12 08:41] VITALS: BP 100/63; PULSE 98; O2SAT 90
[2016-10-12] MEDS: CARVEDILOL 12.5 MG TAB PO SCH ×2 (08:42→20:51)
[2016-10-12] MEDS: GABAPENTIN 300 MG CAP PO SCH ×3 (08:43→20:52)
[2016-10-12] MEDS: MULTIVITAMIN TAB PO SCH (08:43)
[2016-10-12] MEDS: NIASPAN 500 MG TABCR PO SCH ×2 (08:43→20:52)
[2016-10-12] MEDS: ASCORBIC ACID 500 MG TAB PO SCH (08:44)
[2016-10-12] MEDS: VITAMIN B COMPLEX TAB PO SCH (08:44)
[2016-10-12] MEDS: PANTOprazole SOD 40 MG TAB PO SCH (08:44)
[2016-10-12] MEDS: LISINOPRIL/HCTZ 20/25MG TAB PO SCH (08:44)
[2016-10-12] MEDS: HEPARIN SOD 5000 UNIT/0.5 ML CARP SQ SCH ×2 (08:47→15:55)
[2016-10-12] MEDS: INSULIN ASPART 100 UNITS/ML 3 ML PEN SC SCH ×4 (08:50→20:57)
--- NOTE | 2016-10-12 12:07 | DIAGNOSTIC IMAGING REPORT ---
ULTRASOUND VENOUS DOPPLER LWR EXT BILA CLINICAL HISTORY: Leg swelling. COMPARISON STUDY: 05/19/2013 FINDINGS: Real-time and color flow Doppler imaging were performed. Flow was seen within the femoral, popliteal and calf veins with no intraluminal thrombus demonstrated. The saphenous vein is patent. IMPRESSION: No evidence of lower extremity DVT. Electronically signed by: Justin Israel M.D. 10/12/2016 12:06 PM Dictated Date/Time: 10/12/2016 12:05 PM
[2016-10-12 15:04] VITALS: BP 113/63; PULSE 79; TEMP 36.7; O2SAT 90
[2016-10-12] MEDS ORDERED: PHARMACY GLYCEMIC MGMT CONSULT PRN (15:23)
[2016-10-12] MEDS ORDERED: BISACODYL 10 MG SUPP PR PRN (15:30)
--- NOTE | 2016-10-12 15:38 | Progress Note ---
Medicine Progress Note Date & Time of Visit: Oct 12, 2016 at 15:25. Subjective patient seen resting in bed, appears comfortable states his left knee pain seems to improving but still significant pain medication is adequate leg pain has resolved denies chest pain, dyspnea, dizziness ,nausea, palpitations no other symptom Objective Last 8 Hrs Date Time Temp Pulse Resp B/P Pulse Ox O2 Delivery O2 Flow Rate FiO2 10/12/16 15:04 36.7 79 16 113/63 90 Room Air 10/12/16 08:41 98 100/63 90 Room Air 10/12/16 07:28 36.8 89 16 109/70 88 Room Air Physical Exam: General- oriented x 3, not in distress, speaks in sentences with no effort Head- atraumatic Eyes- EOMI, anictericr Neck- supple, no JVD Lungs- clear breath sounds bilaterally Heart- normal rate, regular rhythm; no murmurs Abdomen- normal bowel sounds, soft, nontender Extremities- right knee: essentially normal left knee: no swelling, erythema, warmth, tenderness no pretibial edema, no calf tenderness; peripheral pulses intact Neuro- alert, oriented x 3; no gross focal deficits Skin- warm & dry Laboratory Results: Last 24 Hours Test 10/11/16 17:17 10/11/16 20:40 10/12/16 05:30 10/12/16 07:43 Bedside Glucose 218 mg/dl 193 mg/dl 206 mg/dl White Blood Count 10.11 K/uL Red Blood Count 4.64 M/uL Hemoglobin 14.6 g/dL Hematocrit 43.3 % Mean Corpuscular Volume 93.3 fL Mean Corpuscular Hemoglobin 31.5 pg Mean Corpuscular Hemoglobin Concent 33.7 g/dl RDW Standard Deviation 50.1 fL RDW Coefficient of Variation 14.8 % Platelet Count 157 K/uL Mean Platelet Volume 11.2 fL Sodium Level 133 mmol/L Potassium Level 4.1 mmol/L Chloride Level 93 mmol/L Carbon Dioxide Level 33 mmol/L Anion Gap 7.0 mmol/L Blood Urea Nitrogen 26 mg/dl Creatinine 0.97 mg/dl Est Creatinine Clear Calc Drug Dose 84.2 ml/min Estimated GFR () 91.9 Estimated GFR (Non- 79.3 BUN/Creatinine Ratio 27.2 Random Glucose 201 mg/dl Calcium Level 9.5 mg/dl Test 10/12/16 08:24 10/12/16 12:17 Bedside Glucose 209 mg/dl 265 mg/dl Assessment & Plan 71 year old male with history o f Charcot Fidelia Tooth Disease, CAD, A fib, DM, COPD, PVD presenting after a fall. Left, Distal Femoral Fracture, Non displaced, Hairline Moderate Joint Effusion s/p Mechanical fall - with CT of the knee showing: Left knee effusion, Left Medial Femoral Condylar cortical fracture - evaluated by Ortho appreciate the input - continue knee immobilizer, pain medication PRN awaiting acceptance to [facility] for further PT/OT Diabetes mellitus Type II: poorly controlled -hold oral diabetic medications - A1c 9.4 - Pharmacy Glycemic control consult History of CAD stable continue Aspirin, Carvedilol hold Lisinopril/HCTZ due to BP being low Paroxysmal atrial fibrillation - on Digoxin -only aspirin, but no anticoagulation - stable COPD: chronic, moderate -not in acute exacerbation -continue with his home inhalers 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 and uses specialized shoes with splints on both the legs however unable to use on the left leg due to knee immobilizer Chronic kidney disease Stage I/II: stable Hypertriglyceridemia: -continue with current medications -labs show triglycerides over 500 Dispo: awaiting acceptance to [facility] Current Inpatient Medications: Current Inpatient Medications Medications (Trade) Dose Ordered Sig/Katherine Route Start Time Stop Time Status Last Admin Dose Admin Ascorbic Acid (Vitamin C Tab) 500 mg DAILY PO 10/10/16 09:00 11/09/16 08:59 10/12/16 08:44 500 MG Aspirin (Ecotrin Tab) 81 mg DAILY PO 10/10/16 09:00 11/09/16 08:59 10/12/16 08:40 81 MG Carvedilol (Coreg Tab) 12.5 mg BID PO 10/10/16 09:00 11/09/16 08:59 10/11/16 20:57 12.5 MG Digoxin (Lanoxin Tab) 0.125 mg DAILY@1600 PO 10/10/16 16:00 11/09/16 15:59 10/11/16 16:33 0.125 MG Salmeterol Xinafoate/ Fluticasone (Advair Diskus 250/50 Inh) 1 puff BID INH 10/10/16 09:00 11/09/16 08:59 10/12/16 08:39 1 PUFF Gabapentin (Neurontin Cap) 300 mg TID PO 10/10/16 09:00 11/09/16 08:59 10/12/16 13:30 300 MG HCTZ/Lisinopril (Prinzide 20-25MG Tab) 1 tab DAILY PO 10/10/16 09:00 11/09/16 08:59 10/11/16 09:19 1 TAB Magnesium Oxide (Mag-Ox Tab) 400 mg DAILY PO 10/10/16 09:00 11/09/16 08:59 10/12/16 08:40 400 MG Multivitamins (Multivitamin Tab) 1 tab DAILY PO 10/10/16 09:00 11/09/16 08:59 10/12/16 08:43 1 TAB Niacin (Niaspan Extended Rel Tab) 1,000 mg AMHS PO 10/10/16 09:00 11/09/16 08:59 10/12/16 08:43 1,000 MG Tamsulosin HCl (Flomax Cap) 0.4 mg HS PO 10/10/16 21:00 11/09/16 20:59 10/11/16 20:51 0.4 MG Vitamin B Complex (Vitamin B Complex) 1 tab DAILY PO 10/10/16 09:00 11/09/16 08:59 10/12/16 08:44 1 TAB Cholecalciferol (Vitamin D Tab) 5,000 inter.unit QPM PO 10/10/16 21:00 11/09/16 20:59 10/11/16 20:51 5,000 INTER.UNIT Lovastatin (Mevacor Tab) 10 mg HS PO 10/10/16 21:00 11/09/16 20:59 10/11/16 20:59 10 MG Pantoprazole Sodium (Protonix Tab) 40 mg DAILY PO 10/10/16 09:00 11/09/16 08:59 10/12/16 08:44 40 MG Heparin Sodium (Porcine) (Heparin Sq 5000 Unit/0.5ml) 5,000 unit Q8H SQ 10/10/16 08:00 11/09/16 07:59 10/12/16 08:47 5,000 UNIT Ondansetron HCl (Zofran Inj) 4 mg Q6H PRN IV 10/10/16 02:30 11/09/16 02:29 Albuterol Sulfate (Ventolin 0.083% 2.5MG/3ML Neb) 2.5 mg Q6R PRN INH 10/10/16 02:45 11/09/16 02:44 Miscellaneous (Iv Fluids Completed) 1 ea PRN PRN N/A 10/10/16 02:45 10/10/17 02:44 Insulin Aspart (novoLOG ASPART) SLIDING SCALE G... ACHS SC 10/10/16 07:00 11/09/16 06:59 10/12/16 13:27 7 UNITS Glucose (Glucose 40% Gel) 15-30 GRAMS 15 GRAMS... UD PRN PO 10/10/16 04:15 11/09/16 04:14 Glucose (Glucose Chew Tab) 4-8 Tablets 4 Tabl... UD PRN PO 10/10/16 04:15 11/09/16 04:14 Dextrose (Dextrose 50% 50ML Syringe) 25-50ML OF 50% DW IV FOR... UD PRN IV 10/10/16 04:15 11/09/16 04:14 Glucagon (Glucagon Inj) 1 mg UD PRN SQ 10/10/16 04:15 11/09/16 04:14 Oxycodone HCl (Roxicodone Immediate Rel Tab) 10 mg Q4 PRN PO 10/11/16 18:00 10/25/16 17:59 10/12/16 12:18 10 MG Acetaminophen (Tylenol Tab) 650 mg Q6 PRN PO 10/11/16 17:00 11/10/16 16:59 Miscellaneous Information (Consult Glycemic Management Pharmacy) 1 ea UD PRN N/A 10/12/16 15:23 11/11/16 15:22 Insulin Glargine (Lantus Solostar Pen) 15 unit NOW ONCE SC 10/12/16 16:00 10/12/16 16:01
[2016-10-12] MEDS: DIGOXIN 0.125 MG TAB PO SCH (15:58)
[2016-10-12] MEDS ORDERED: DOCUSATE SODIUM/SENNA 50/8.6MG TAB PO ONE (16:00)
[2016-10-12] MEDS ORDERED: INSULIN GLARGINE SOLOSTAR 100 UNITS/ML 3 ML PEN SC ONE (16:00)
--- NOTE | 2016-10-12 20:03 | Pharmacy Progress Note ---
Glycemic Control Intl Consult Date of Service Oct 12, 2016. Scope Glycemic Pharmacist consulted by Dr Abbott on 10/12/2016 for glycemic control and to write orders per [facility] inpatient glycemic control protocol Objective Weight (Kilograms): 111.500 Accuchecks BSG (last 24hrs): Test 10/11/16 20:40 10/12/16 05:30 10/12/16 07:43 10/12/16 08:24 Bedside Glucose 193 mg/dl (70-99) 206 mg/dl (70-99) 209 mg/dl (70-99) Random Glucose 201 mg/dl (70-99) Test 10/12/16 12:17 10/12/16 16:46 Bedside Glucose 265 mg/dl (70-99) 235 mg/dl (70-99) Laboratory Data (last 24hrs) Test 10/12/16 05:30 Anion Gap 7.0 mmol/L BUN/Creatinine Ratio 27.2 Blood Urea Nitrogen 26 mg/dl Creatinine 0.97 mg/dl Potassium Level 4.1 mmol/L Sodium Level 133 mmol/L White Blood Count 10.11 K/uL HbA1c Test 10/11/16 05:50 Hemoglobin A1c 9.4 % (4.5-5.6) H Recent Pertinent Medications Outpatient Anti-diabetic Regimen: * Amaryl 2 mg QDB and metformin 1000 mg BID * A1c = 9.4 % 10/11/2016 The patient is currently receiving: * Correctional Insulin: Novolog Correction per scale ACHS Goal Range: Low 110 mg/dL - High 140 mg/dL Correction Factor: 20 mg/dL/unit * Prandial insulin: Per carb ratio of 1 unit per 15 grams CHO consumed Risk Factors for Insulin Resistance: * Steroids: methylpred 160 mg IA on 10/10/2016 * Infection: * Pressors: * IVF: * Recent Surgery * Diet: type 2 diet * Mechanical Ventilation: Assessment & Plan ASSESSMENT: * ADA & AACE recommend a goal blood sugar range 140-180 mg/dl for the majority of critically ill & non-critically ill patients. However, more stringent targets may be selected in individual cases. PLAN FOR INPATIENT GLYCEMIC CONTROL: * Basal insulin with LANTUS 15 units SQ x 1 dose tonight; re-evaluate tomorrow morning if Lantus 10 units or 15 units should be given * Continuing correction factor 20 mg/dl/unit * Continuing carb ratio 1 unit per 15 grams CHO consumed * Continuing goal range Low 110 mg/dL - High 140 mg/dL Will order AccuCheck at 0200 to determine if more insulin need in evening. * Please note that the plan above was derived based on current level of insulin resistance and hospital stress. These recommendations are appropriate for inpatient admission only. Plan of care upon discharge will need to be reassessed to avoid potential outpatient hypo/hyperglycemia. Thank you.
[2016-10-12 20:50] VITALS: BP 118/67; PULSE 88
[2016-10-12] MEDS: TAMSULOSIN HCL 0.4 MG CAP PO SCH (20:51)
[2016-10-12] MEDS: LOVASTATIN 20 MG TAB PO SCH (20:52)
[2016-10-12] MEDS: CHOLECALCIFEROL 1000 INTER.UNIT TAB PO SCH (20:53)
[2016-10-12 23:05] VITALS: BP 106/59; PULSE 80; TEMP 36.7; O2SAT 90
[2016-10-13] MEDS: HEPARIN SOD 5000 UNIT/0.5 ML CARP SQ SCH ×3 (00:40→16:18)
[2016-10-13] MEDS: OXYCODONE HCL IR 5 MG TAB (IMMEDIATE RELEASE) PO PRN ×5 (01:07→20:49)
[2016-10-13] MEDS ORDERED: INSULIN ASPART 100 UNITS/ML 3 ML PEN SC SCH (02:00)
[2016-10-13] MEDS: ACETAMINOPHEN 325 MG TAB PO PRN ×2 (02:27→09:05)
[2016-10-13 07:30] VITALS: BP 110/67; PULSE 75; TEMP 36.4; O2SAT 92
--- NOTE | 2016-10-13 08:43 | Pharmacy Progress Note ---
Glycemic: Assessment & Plan Date of Service Oct 13, 2016. Assessment & Plan Item Value Date Time Bedside Glucose 207 mg/dl H 10/13/16 0740 Bedside Glucose 182 mg/dl H 10/13/16 0202 Bedside Glucose 213 mg/dl H 10/12/16 2031 Bedside Glucose 235 mg/dl H 10/12/16 1646 Bedside Glucose 265 mg/dl H 10/12/16 1217 Bedside Glucose 209 mg/dl H 10/12/16 0824 Bedside Glucose 206 mg/dl H 10/12/16 0743 Hemoglobin A1c 9.4 % H 10/11/16 0550 PLAN: Adding low-dose basal insulin with Lantus. Will titrate over time. * Basal insulin: Lantus 15 units 10/12 @ 1600, then 10 units every 12 hours, give 1/2 dose for BSG < 110mg/dL * Correctional Insulin: Novolog Correction per scale ACHS Goal Range: Low 110 mg/dL - High 140 mg/dL Correction Factor: 20 mg/dL/unit * Prandial insulin: "tightened" carb ratio of 1 unit per 10 grams CHO consumed Pharmacy will continue to monitor patient daily and write orders per [facility] inpatient glycemic control protocol. Thanks. * Please note that the plan above was derived based on current level of insulin resistance and hospital stress. These recommendations are appropriate for inpatient admission only. Plan of care upon discharge will need to be reassessed to avoid potential outpatient hypo/hyperglycemia.
[2016-10-13] MEDS: MAGNESIUM HYDROXIDE SUSP 30 ML UDC PO PRN (09:05)
[2016-10-13] MEDS: GABAPENTIN 300 MG CAP PO SCH ×3 (09:05→20:48)
[2016-10-13] MEDS: FLUTICASONE/SALMETEROL 250/50 (ADVAIR) 14 PUFF/1 INHALER INH SCH ×2 (09:05→20:47)
[2016-10-13] MEDS: MULTIVITAMIN TAB PO SCH (09:06)
[2016-10-13] MEDS: ASCORBIC ACID 500 MG TAB PO SCH (09:06)
[2016-10-13] MEDS: PANTOprazole SOD 40 MG TAB PO SCH (09:06)
[2016-10-13] MEDS: ASPIRIN 81 MG ECTAB PO SCH (09:06)
[2016-10-13] MEDS: MAGNESIUM OXIDE 400 MG TAB PO SCH (09:06)
[2016-10-13] MEDS: VITAMIN B COMPLEX TAB PO SCH (09:06)
[2016-10-13] MEDS: NIASPAN 500 MG TABCR PO SCH ×2 (09:06→20:49)
[2016-10-13] MEDS: DOCUSATE SODIUM/SENNA 50/8.6MG TAB PO SCH (09:07)
[2016-10-13 09:11] VITALS: BP 110/66; PULSE 79; TEMP 37; O2SAT 91
[2016-10-13] MEDS: CARVEDILOL 12.5 MG TAB PO SCH ×2 (09:13→20:47)
[2016-10-13] MEDS: INSULIN ASPART 100 UNITS/ML 3 ML PEN SC SCH ×4 (09:32→20:45)
[2016-10-13] MEDS: INSULIN GLARGINE SOLOSTAR 100 UNITS/ML 3 ML PEN SC SCH ×2 (09:34→20:46)
--- NOTE | 2016-10-13 14:49 | Progress Note ---
Medicine Progress Note Date & Time of Visit: Oct 13, 2016 at 14:44. Subjective states he feels ok overall left knee pain controlled adequately still has left lower leg pain no other symptoms (+) BM today Objective Last 8 Hrs Date Time Temp Pulse Resp B/P Pulse Ox O2 Delivery O2 Flow Rate FiO2 10/13/16 09:11 37.0 79 14 110/66 91 Room Air 10/13/16 07:35 Room Air 10/13/16 07:30 36.4 75 16 110/67 92 Room Air Physical Exam: General- oriented x 3, not in distress, speaks in sentences with no effort Eyes- anicteric Neck- no JVD Lungs- clear breath sounds , no rales/wheeze b/l Heart- normal rate, regular rhythm; no murmurs Abdomen- normal bowel sounds, soft, nontender Extremities- right knee: essentially normal left knee: no swelling, erythema, warmth, tenderness left lower leg edema - mild, no calf tenderness, erythema, warmth; peripheral pulses intact Neuro- alert, oriented x 3; no gross focal deficits Skin- warm & dry Laboratory Results: Last 24 Hours Test 10/12/16 16:46 10/12/16 20:31 10/13/16 02:02 10/13/16 07:40 Bedside Glucose 235 mg/dl 213 mg/dl 182 mg/dl 207 mg/dl Test 10/13/16 11:39 10/13/16 14:41 Bedside Glucose 270 mg/dl Assessment & Plan 71 year old male with history o f Charcot Fidelia Tooth Disease, CAD, A fib, DM, COPD, PVD presenting after a fall. Left, Distal Femoral Fracture, Non displaced, Hairline Moderate Joint Effusion s/p Mechanical fall - with CT of the knee showing: Left knee effusion, Left Medial Femoral Condylar cortical fracture - evaluated by Ortho appreciate the input - continue knee immobilizer, pain medication PRN awaiting acceptance to [facility] for further PT/OT -- will check xrays of lower leg and ankle to r/o fracture patient would like to inquire about cast placement- not tolerating knee immobilizer Constipation Resolved continue Senokot S and Milk of Mg PRN Diabetes mellitus Type II: poorly controlled -hold oral diabetic medications - A1c 9.4 - Pharmacy Glycemic control consult now on Lantus and ISS History of CAD stable continue Aspirin, Carvedilol hold Lisinopril/HCTZ due to BP being low Paroxysmal atrial fibrillation - on Digoxin, Carvedilol - only aspirin, but no anticoagulation - stable COPD: chronic, moderate -not in acute exacerbation -continue with his home inhalers 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 and uses specialized shoes with splints on both the legs however unable to use on the left leg due to knee immobilizer Chronic kidney disease Stage I/II: stable Hypertriglyceridemia: -labs show triglycerides over 500 increase Lovastatin Dispo: awaiting acceptance to [facility] Current Inpatient Medications: Current Inpatient Medications Medications (Trade) Dose Ordered Sig/Katherine Route Start Time Stop Time Status Last Admin Dose Admin Ascorbic Acid (Vitamin C Tab) 500 mg DAILY PO 10/10/16 09:00 11/09/16 08:59 10/13/16 09:06 500 MG Aspirin (Ecotrin Tab) 81 mg DAILY PO 10/10/16 09:00 11/09/16 08:59 10/13/16 09:06 81 MG Carvedilol (Coreg Tab) 12.5 mg BID PO 10/10/16 09:00 11/09/16 08:59 10/13/16 09:13 12.5 MG Digoxin (Lanoxin Tab) 0.125 mg DAILY@1600 PO 10/10/16 16:00 11/09/16 15:59 10/12/16 15:58 0.125 MG Salmeterol Xinafoate/ Fluticasone (Advair Diskus 250/50 Inh) 1 puff BID INH 10/10/16 09:00 11/09/16 08:59 10/13/16 09:05 1 PUFF Gabapentin (Neurontin Cap) 300 mg TID PO 10/10/16 09:00 11/09/16 08:59 10/13/16 13:30 300 MG Magnesium Oxide (Mag-Ox Tab) 400 mg DAILY PO 10/10/16 09:00 11/09/16 08:59 10/13/16 09:06 400 MG Multivitamins (Multivitamin Tab) 1 tab DAILY PO 10/10/16 09:00 11/09/16 08:59 10/13/16 09:06 1 TAB Niacin (Niaspan Extended Rel Tab) 1,000 mg AMHS PO 10/10/16 09:00 11/09/16 08:59 10/13/16 09:06 1,000 MG Tamsulosin HCl (Flomax Cap) 0.4 mg HS PO 10/10/16 21:00 11/09/16 20:59 10/12/16 20:51 0.4 MG Vitamin B Complex (Vitamin B Complex) 1 tab DAILY PO 10/10/16 09:00 11/09/16 08:59 10/13/16 09:06 1 TAB Cholecalciferol (Vitamin D Tab) 5,000 inter.unit QPM PO 10/10/16 21:00 11/09/16 20:59 10/12/16 20:53 5,000 INTER.UNIT Lovastatin (Mevacor Tab) 10 mg HS PO 10/10/16 21:00 11/09/16 20:59 10/12/16 20:52 10 MG Pantoprazole Sodium (Protonix Tab) 40 mg DAILY PO 10/10/16 09:00 11/09/16 08:59 10/13/16 09:06 40 MG Heparin Sodium (Porcine) (Heparin Sq 5000 Unit/0.5ml) 5,000 unit Q8H SQ 10/10/16 08:00 11/09/16 07:59 10/13/16 09:33 5,000 UNIT Ondansetron HCl (Zofran Inj) 4 mg Q6H PRN IV 10/10/16 02:30 11/09/16 02:29 Albuterol Sulfate (Ventolin 0.083% 2.5MG/3ML Neb) 2.5 mg Q6R PRN INH 10/10/16 02:45 11/09/16 02:44 Miscellaneous (Iv Fluids Completed) 1 ea PRN PRN N/A 10/10/16 02:45 10/10/17 02:44 Insulin Aspart (novoLOG ASPART) SLIDING SCALE G... ACHS SC 10/10/16 07:00 11/09/16 06:59 10/13/16 13:34 11 UNITS Glucose (Glucose 40% Gel) 15-30 GRAMS 15 GRAMS... UD PRN PO 10/10/16 04:15 11/09/16 04:14 Glucose (Glucose Chew Tab) 4-8 Tablets 4 Tabl... UD PRN PO 10/10/16 04:15 11/09/16 04:14 Dextrose (Dextrose 50% 50ML Syringe) 25-50ML OF 50% DW IV FOR... UD PRN IV 10/10/16 04:15 11/09/16 04:14 Glucagon (Glucagon Inj) 1 mg UD PRN SQ 10/10/16 04:15 11/09/16 04:14 Oxycodone HCl (Roxicodone Immediate Rel Tab) 10 mg Q4 PRN PO 10/11/16 18:00 10/25/16 17:59 10/13/16 10:26 10 MG Acetaminophen (Tylenol Tab) 650 mg Q6 PRN PO 10/11/16 17:00 11/10/16 16:59 10/13/16 09:05 650 MG Miscellaneous Information (Consult Glycemic Management Pharmacy) 1 ea UD PRN N/A 10/12/16 15:23 11/11/16 15:22 Senna/Docusate Sodium (Senokot S Tab) 1 tab QAM PO 10/13/16 09:00 11/12/16 08:59 10/13/16 09:07 1 TAB Magnesium Hydroxide (Milk Of Magnesia Susp) 30 ml Q6H PRN PO 10/12/16 15:30 11/11/16 15:29 10/13/16 09:05 30 ML Bisacodyl (Dulcolax Supp) 10 mg DAILY PRN NC 10/12/16 15:30 11/11/16 15:29 Insulin Glargine (Lantus Solostar Pen) 10 unit BID SC 10/13/16 09:00 11/12/16 08:59 10/13/16 09:34 10 UNIT
[2016-10-13 15:05] VITALS: BP 117/67; PULSE 82; TEMP 36.6; O2SAT 87
[2016-10-13 15:38] LABS: BUN/CREATININE RATIO 23.3 (10-20); CALCIUM 9.1 mg/dl (8.5-10.1); CREATININE 1.2 mg/dl (0.60-1.40); POTASSIUM 4.5 mmol/L (3.5-5.1)
--- NOTE | 2016-10-13 15:57 | DIAGNOSTIC IMAGING REPORT ---
LEFT TIBIA AND FIBULA 2 VIEWS; LEFT ANKLE 2 VIEWS CLINICAL HISTORY: Left leg injury. Fall. FINDINGS: AP and lateral portable views of the left tibia and fibula as well as AP and lateral portable views of the left ankle are obtained. Correlation is made with CT of the left knee dated 10/12/2016. The skeletal structures are osteopenic. There is no radiographic evidence of fracture in the left tibia or fibula. No fracture is seen at the ankle joint. A benign-appearing sclerotic focus in the proximal tibial metaphysis is unchanged. Degenerative change is seen in the left knee and ankle. There is chronic appearing deformity of the calcaneus with apparent fusion at the talocalcaneal articulation. No ankle joint effusion is clearly identified. Soft tissue edema is present throughout the left lower extremity, greatest around the ankle. IMPRESSION: 1. There is no radiographic evidence of fracture involving the left tibia or fibula , and no fracture is seen at the ankle joint. 2. Soft tissue swelling is present throughout the left lower extremity. 3. Chronic appearing deformity and fusion is noted at the talocalcaneal articulation. 4. A benign-appearing sclerotic focus in the proximal tibial metaphysis is unchanged and was also seen on the recent CT scan of the knee. Electronically signed by: Eric Escalera M.D. 10/13/2016 3:55 PM Dictated Date/Time: 10/13/2016 3:50 PM
[2016-10-13 16:13] VITALS: PULSE 80
[2016-10-13] MEDS: DIGOXIN 0.125 MG TAB PO SCH (16:15)
[2016-10-13 20:30] VITALS: BP 120/66; PULSE 80
[2016-10-13] MEDS: TAMSULOSIN HCL 0.4 MG CAP PO SCH (20:47)
[2016-10-13] MEDS: LOVASTATIN 20 MG TAB PO SCH (20:47)
[2016-10-13] MEDS: CHOLECALCIFEROL 1000 INTER.UNIT TAB PO SCH (20:48)
[2016-10-13 23:07] VITALS: BP 107/63; PULSE 75; TEMP 37.1; O2SAT 91
[2016-10-14] MEDS: HEPARIN SOD 5000 UNIT/0.5 ML CARP SQ SCH ×4 (00:38→23:17)
[2016-10-14] MEDS: OXYCODONE HCL IR 5 MG TAB (IMMEDIATE RELEASE) PO PRN ×5 (00:40→21:24)
[2016-10-14 07:52] VITALS: BP 104/60; PULSE 89; TEMP 37; O2SAT 91
--- NOTE | 2016-10-14 08:16 | Orthopedic Progress Note ---
Orthopedic Progress Note Date of Service Oct 14, 2016. 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 and decreased use of hands.), feeling well Objective calves soft nontender, N/V intact, capillary refill less than 2 sec., A&O x3 Date Time Temp Pulse Resp B/P Pulse Ox O2 Delivery O2 Flow Rate FiO2 10/14/16 07:52 37.0 89 18 104/60 91 Room Air 10/14/16 00:00 Room Air 10/13/16 23:07 37.1 75 18 107/63 91 Room Air 10/13/16 20:30 80 120/66 10/13/16 16:15 80 10/13/16 16:13 80 10/13/16 16:00 Room Air 10/13/16 15:05 36.6 82 18 117/67 87 Room Air 10/13/16 09:11 37.0 79 14 110/66 91 Room Air Assessment & Plan Assessment: Left knee effusion Left knee contusion with Medial Femoral Condyle cortical fracture noted on CT. Plan: Discussed tx with patient. I stopped in last night about 8 PM but no family was present and patient was asleep. Discussed this AM about getting a hinged knee brace that locks in extension that slides on. We may have these at our office. Will discuss with our nurse and fit patient next week if we have them. OK to d/c patient when bed available at [facility]. With noted fracture, no injection will be given at this time. Plan for immobilizer for LLE and PWB with ambulation. If a proper size immobilizer can't be fitted, we may have to have [employer]en [employer] from orth[employer] to make a hinged knee brace. Inhouse Planning Pain Management: Oxy IR Discharge Planning Discharge Planning: uncertain
[2016-10-14] MEDS: GABAPENTIN 300 MG CAP PO SCH ×3 (08:40→21:14)
[2016-10-14] MEDS: MAGNESIUM OXIDE 400 MG TAB PO SCH (08:40)
[2016-10-14] MEDS: FLUTICASONE/SALMETEROL 250/50 (ADVAIR) 14 PUFF/1 INHALER INH SCH ×2 (08:40→21:13)
[2016-10-14] MEDS: ASPIRIN 81 MG ECTAB PO SCH (08:40)
[2016-10-14] MEDS: MULTIVITAMIN TAB PO SCH (08:40)
[2016-10-14] MEDS: VITAMIN B COMPLEX TAB PO SCH (08:41)
[2016-10-14] MEDS: DOCUSATE SODIUM/SENNA 50/8.6MG TAB PO SCH (08:41)
[2016-10-14] MEDS: CARVEDILOL 12.5 MG TAB PO SCH ×2 (08:41→21:13)
[2016-10-14] MEDS: ASCORBIC ACID 500 MG TAB PO SCH (08:41)
[2016-10-14] MEDS: NIASPAN 500 MG TABCR PO SCH ×2 (08:41→21:15)
[2016-10-14] MEDS: PANTOprazole SOD 40 MG TAB PO SCH (08:41)
[2016-10-14] MEDS: INSULIN ASPART 100 UNITS/ML 3 ML PEN SC SCH ×4 (09:40→21:20)
[2016-10-14] MEDS: INSULIN GLARGINE SOLOSTAR 100 UNITS/ML 3 ML PEN SC SCH ×2 (09:40→21:21)
[2016-10-14] MEDS: ACETAMINOPHEN 325 MG TAB PO PRN ×2 (09:41→19:28)
[2016-10-14 11:18] VITALS: BP 106/67
--- NOTE | 2016-10-14 11:22 | Pharmacy Progress Note ---
Glycemic: Assessment & Plan Date of Service Oct 14, 2016. Assessment & Plan ASSESSMENT: * Patient received 56 units of insulin yesterday, with BSGs all above goal range. * Lantus has only been added in the past day or so, so no changes at this time until basal insulin is closer to steady-state. Will titrate as needed until BSGs stable. * Novolog parameters were adjusted yesterday, with not much improvement in BSG control. Will further tighten slightly today. PLAN: * Basal insulin: Lantus 10 units every 12 hours -- give 1/2 dose for BSG < 110mg/dL * Correctional Insulin: Novolog Correction per scale ACHS Goal Range: Low 110 mg/dL - High 140 mg/dL Correction Factor: 20 mg/dL/unit * Prandial insulin: "tightened" carb ratio of 1 unit per 8 grams CHO consumed Pharmacy will continue to monitor patient daily and write orders per [facility] inpatient glycemic control protocol. Thanks. * Please note that the plan above was derived based on current level of insulin resistance and hospital stress. These recommendations are appropriate for inpatient admission only. Plan of care upon discharge will need to be reassessed to avoid potential outpatient hypo/hyperglycemia.
--- NOTE | 2016-10-14 15:51 | Progress Note ---
Medicine Progress Note Date & Time of Visit: Oct 14, 2016 at 15:46. Subjective patient states he feels tired today BSGs elevated no abdominal pain, nausea, dizziness, headache, chest pain, dyspnea knee pain about the same denies other symptoms Objective Last 8 Hrs Date Time Temp Pulse Resp B/P Pulse Ox O2 Delivery O2 Flow Rate FiO2 10/14/16 07:52 37.0 89 18 104/60 91 Room Air Physical Exam: General- oriented x 3, not in distress, speaks in sentences with no effort Eyes- anicteric Neck- no JVD Lungs- clear breath sounds , no rales/wheeze, bilaterally Heart- normal rate, regular rhythm; no murmurs Abdomen- normal bowel sounds, soft, nontender Extremities- right knee: essentially normal left knee: no swelling, erythema, warmth, tenderness left lower leg edema - no edema, calf tenderness, erythema, warmth; peripheral pulses intact Neuro- alert, oriented x 3; no gross focal deficits Skin- warm & dry Laboratory Results: Last 24 Hours Test 10/13/16 16:31 10/13/16 20:24 10/14/16 07:46 10/14/16 11:44 Bedside Glucose 233 mg/dl 240 mg/dl 199 mg/dl 283 mg/dl Assessment & Plan 71 year old male with history o f Charcot Fidelia Tooth Disease, CAD, A fib, DM, COPD, PVD presenting after a fall. Left, Distal Femoral Fracture, Non displaced, Hairline Moderate Joint Effusion s/p Mechanical fall - with CT of the knee showing: Left knee effusion, Left Medial Femoral Condylar cortical fracture - evaluated by Ortho appreciate the input -- will check xrays of lower leg and ankle to r/o fracture: no fractures noted reports pain with knee immobilizer discussed with ortho, will need brace in place of immobilizer on outpatient ff up, for now, may loosen immobilizer - continue knee immobilizer, pain medication PRN awaiting acceptance to [facility] for further PT/OT Constipation continue Senokot S and Milk of Mg PRN add PRN Lactulose Diabetes mellitus Type II: poorly controlled -hold oral diabetic medications - A1c 9.4 - Pharmacy Glycemic control consult now on Lantus and ISS, Pharmacy managing Insulin appreciate the input History of CAD stable continue Aspirin, Carvedilol hold Lisinopril/HCTZ due to BP being low Paroxysmal atrial fibrillation - on Digoxin, Carvedilol - only aspirin, but no anticoagulation - stable COPD: chronic, moderate -not in acute exacerbation -continue with his home inhalers Plckate-Jzqst-Wpoou 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 and uses specialized shoes with splints on both the legs however unable to use on the left leg due to knee immobilizer Chronic kidney disease Stage I/II: stable Hypertriglyceridemia: -labs show triglycerides over 500 increase Lovastatin Dispo: awaiting acceptance to [facility] Current Inpatient Medications: Current Inpatient Medications Medications (Trade) Dose Ordered Sig/Katherine Route Start Time Stop Time Status Last Admin Dose Admin Ascorbic Acid (Vitamin C Tab) 500 mg DAILY PO 10/10/16 09:00 11/09/16 08:59 10/14/16 08:41 500 MG Aspirin (Ecotrin Tab) 81 mg DAILY PO 10/10/16 09:00 11/09/16 08:59 10/14/16 08:40 81 MG Carvedilol (Coreg Tab) 12.5 mg BID PO 10/10/16 09:00 11/09/16 08:59 10/13/16 20:47 12.5 MG Digoxin (Lanoxin Tab) 0.125 mg DAILY@1600 PO 10/10/16 16:00 11/09/16 15:59 10/13/16 16:15 0.125 MG Salmeterol Xinafoate/ Fluticasone (Advair Diskus 250/50 Inh) 1 puff BID INH 10/10/16 09:00 11/09/16 08:59 10/14/16 08:40 1 PUFF Gabapentin (Neurontin Cap) 300 mg TID PO 10/10/16 09:00 11/09/16 08:59 10/14/16 14:44 300 MG Magnesium Oxide (Mag-Ox Tab) 400 mg DAILY PO 10/10/16 09:00 11/09/16 08:59 10/14/16 08:40 400 MG Multivitamins (Multivitamin Tab) 1 tab DAILY PO 10/10/16 09:00 11/09/16 08:59 10/14/16 08:40 1 TAB Niacin (Niaspan Extended Rel Tab) 1,000 mg AMHS PO 10/10/16 09:00 11/09/16 08:59 10/14/16 08:41 1,000 MG Tamsulosin HCl (Flomax Cap) 0.4 mg HS PO 10/10/16 21:00 11/09/16 20:59 10/13/16 20:47 0.4 MG Vitamin B Complex (Vitamin B Complex) 1 tab DAILY PO 10/10/16 09:00 11/09/16 08:59 10/14/16 08:41 1 TAB Cholecalciferol (Vitamin D Tab) 5,000 inter.unit QPM PO 10/10/16 21:00 11/09/16 20:59 10/13/16 20:48 5,000 INTER.UNIT Pantoprazole Sodium (Protonix Tab) 40 mg DAILY PO 10/10/16 09:00 11/09/16 08:59 10/14/16 08:41 40 MG Heparin Sodium (Porcine) (Heparin Sq 5000 Unit/0.5ml) 5,000 unit Q8H SQ 10/10/16 08:00 11/09/16 07:59 10/14/16 07:54 5,000 UNIT Ondansetron HCl (Zofran Inj) 4 mg Q6H PRN IV 10/10/16 02:30 11/09/16 02:29 Albuterol Sulfate (Ventolin 0.083% 2.5MG/3ML Neb) 2.5 mg Q6R PRN INH 10/10/16 02:45 11/09/16 02:44 Miscellaneous (Iv Fluids Completed) 1 ea PRN PRN N/A 10/10/16 02:45 10/10/17 02:44 Insulin Aspart (novoLOG ASPART) SLIDING SCALE G... ACHS SC 10/10/16 07:00 11/09/16 06:59 10/14/16 13:34 10 UNITS Glucose (Glucose 40% Gel) 15-30 GRAMS 15 GRAMS... UD PRN PO 10/10/16 04:15 11/09/16 04:14 Glucose (Glucose Chew Tab) 4-8 Tablets 4 Tabl... UD PRN PO 10/10/16 04:15 11/09/16 04:14 Dextrose (Dextrose 50% 50ML Syringe) 25-50ML OF 50% DW IV FOR... UD PRN IV 10/10/16 04:15 11/09/16 04:14 Glucagon (Glucagon Inj) 1 mg UD PRN SQ 10/10/16 04:15 11/09/16 04:14 Oxycodone HCl (Roxicodone Immediate Rel Tab) 10 mg Q4 PRN PO 10/11/16 18:00 10/25/16 17:59 10/14/16 12:07 10 MG Acetaminophen (Tylenol Tab) 650 mg Q6 PRN PO 10/11/16 17:00 11/10/16 16:59 10/14/16 09:41 650 MG Miscellaneous Information (Consult Glycemic Management Pharmacy) 1 ea UD PRN N/A 10/12/16 15:23 11/11/16 15:22 Senna/Docusate Sodium (Senokot S Tab) 1 tab QAM PO 10/13/16 09:00 11/12/16 08:59 10/14/16 08:41 1 TAB Magnesium Hydroxide (Milk Of Magnesia Susp) 30 ml Q6H PRN PO 10/12/16 15:30 11/11/16 15:29 10/13/16 09:05 30 ML Bisacodyl (Dulcolax Supp) 10 mg DAILY PRN [place] 10/12/16 15:30 11/11/16 15:29 Insulin Glargine (Lantus Solostar Pen) 10 unit BID SC 10/13/16 09:00 11/12/16 08:59 10/14/16 09:40 10 UNIT Lovastatin (Mevacor Tab) 20 mg HS PO 10/13/16 21:00 11/12/16 20:59 10/13/16 20:47 20 MG
[2016-10-14 16:06] VITALS: BP 99/60; PULSE 81; TEMP 36.7; O2SAT 88
[2016-10-14] MEDS: DIGOXIN 0.125 MG TAB PO SCH (16:21)
[2016-10-14] MEDS: LACTULOSE SYRUP 30 GM/45 ML UDP PO PRN (18:03)
[2016-10-14] MEDS: MAGNESIUM HYDROXIDE SUSP 30 ML UDC PO PRN (18:57)
[2016-10-14 21:12] VITALS: BP 139/76; PULSE 76
[2016-10-14] MEDS: TAMSULOSIN HCL 0.4 MG CAP PO SCH (21:14)
[2016-10-14] MEDS: LOVASTATIN 20 MG TAB PO SCH (21:14)
[2016-10-14] MEDS: CHOLECALCIFEROL 1000 INTER.UNIT TAB PO SCH (21:15)
[2016-10-14 23:45] VITALS: BP 126/72; PULSE 78; TEMP 36.9; O2SAT 90
[2016-10-15] MEDS: OXYCODONE HCL IR 5 MG TAB (IMMEDIATE RELEASE) PO PRN ×6 (02:25→23:57)
[2016-10-15] MEDS: ACETAMINOPHEN 325 MG TAB PO PRN ×3 (04:28→19:14)
[2016-10-15 07:32] LABS: BASO % 0.5 %; BASO ABS # 0.05 K/uL (0-0.2); COMPLETE YES; EOS % 1.9 %; HEMATOCRIT 41.5 % (42-52); IG% 0.5 %; LYMPH % 31.5 %; LYMPH ABS # 2.88 K/uL (1.2-3.4); MEAN CELL VOLUME 92.4 fL (80-100); MEAN CORPUSCULAR HEMOGLOBIN 30.7 pg (25-34); MEAN CORPUSCULAR HGB CONC 33.3 g/dl (32-36); MEAN PLATELET VOLUME 11.2 fL (7.4-10.4); MONO % 12.1 %; NEUT % 53.5 %; PLATELET COUNT 201 K/uL (130-400); RED BLOOD COUNT 4.49 M/uL (4.7-6.1); WHITE BLOOD COUNT 9.14 K/uL (4.8-10.8)
[2016-10-15 07:57] LABS: BUN/CREATININE RATIO 21.6 (10-20); CALCIUM 9.3 mg/dl (8.5-10.1); CREATININE 0.85 mg/dl (0.60-1.40); POTASSIUM 4.3 mmol/L (3.5-5.1)
[2016-10-15 08:05] VITALS: BP 106/68; PULSE 80; TEMP 36.6; O2SAT 92
[2016-10-15] MEDS: FLUTICASONE/SALMETEROL 250/50 (ADVAIR) 14 PUFF/1 INHALER INH SCH ×2 (08:11→20:22)
[2016-10-15] MEDS: GABAPENTIN 300 MG CAP PO SCH ×3 (08:12→20:24)
[2016-10-15] MEDS: PANTOprazole SOD 40 MG TAB PO SCH (08:12)
[2016-10-15] MEDS: NIASPAN 500 MG TABCR PO SCH ×2 (08:12→20:25)
[2016-10-15] MEDS: MAGNESIUM OXIDE 400 MG TAB PO SCH (08:12)
[2016-10-15] MEDS: DOCUSATE SODIUM/SENNA 50/8.6MG TAB PO SCH (08:12)
[2016-10-15] MEDS: VITAMIN B COMPLEX TAB PO SCH (08:12)
[2016-10-15] MEDS: CARVEDILOL 12.5 MG TAB PO SCH ×2 (08:13→20:26)
[2016-10-15] MEDS: ASPIRIN 81 MG ECTAB PO SCH (08:13)
[2016-10-15] MEDS: MULTIVITAMIN TAB PO SCH (08:13)
[2016-10-15] MEDS: ASCORBIC ACID 500 MG TAB PO SCH (08:13)
[2016-10-15] MEDS: HEPARIN SOD 5000 UNIT/0.5 ML CARP SQ SCH ×3 (08:15→23:56)
--- NOTE | 2016-10-15 09:06 | Pharmacy Progress Note ---
Glycemic: Assessment & Plan Date of Service Oct 15, 2016. Assessment & Plan The patient is currently receiving about 55 units of insulin per day. BSGs ranging 199 - 283 mg/dl over the past 24hrs. Patient's Blood sugar dropped from 247 to 187mg/dL overnight, even with 6 units of correctional insulin, he did not come back down into range. Patient requires more Lantus. * CHANGE: Basal insulin: INCREASE Lantus to 14 units every 12 hours * Correctional Insulin: Novolog Correction per scale ACHS Goal Range: Low 110 mg/dL - High 140 mg/dL Correction Factor: 20 mg/dL/unit * Prandial insulin: Per carb ratio of 1 unit per 8 grams CHO consumed Pharmacy will continue to monitor patient daily and write orders per [facility] inpatient glycemic control protocol. Thanks. * Please note that the plan above was derived based on current level of insulin resistance and hospital stress. These recommendations are appropriate for inpatient admission only. Plan of care upon discharge will need to be reassessed to avoid potential outpatient hypo/hyperglycemia.
[2016-10-15] MEDS: INSULIN ASPART 100 UNITS/ML 3 ML PEN SC SCH ×4 (09:11→20:33)
[2016-10-15] MEDS: INSULIN GLARGINE SOLOSTAR 100 UNITS/ML 3 ML PEN SC SCH ×2 (09:12→20:34)
[2016-10-15] MEDS: DIGOXIN 0.125 MG TAB PO SCH (15:36)
[2016-10-15 15:42] VITALS: BP 112/73; PULSE 69; TEMP 36.7; O2SAT 90
--- NOTE | 2016-10-15 15:48 | Progress Note ---
Medicine Progress Note Date & Time of Visit: Oct 15, 2016 at 15:45. Subjective in good spirits states his left knee pain is somewhat better still painful with ambulation denies chest pain, dyspnea, dizziness (+) BM today no other symptoms Objective Last 8 Hrs Date Time Temp Pulse Resp B/P Pulse Ox O2 Delivery O2 Flow Rate FiO2 10/15/16 15:36 77 10/15/16 08:39 Room Air 10/15/16 08:05 36.6 80 16 106/68 92 Room Air Physical Exam: General- oriented x 3, not in distress, speaks in sentences with no effort Eyes- anicteric Neck- no JVD Lungs- clear breath sounds bilaterally Heart- normal rate, regular rhythm; no murmurs Abdomen- normal bowel sounds, soft, nontender Extremities- right knee: essentially normal left knee: no swelling, erythema, warmth, tenderness left lower leg edema - no edema, calf tenderness, erythema, warmth; peripheral pulses intact Neuro- alert, oriented x 3; no gross focal deficits Skin- warm & dry Laboratory Results: Last 24 Hours Test 10/14/16 16:43 10/14/16 20:36 10/15/16 07:00 10/15/16 08:00 Bedside Glucose 247 mg/dl 247 mg/dl 187 mg/dl White Blood Count 9.14 K/uL Red Blood Count 4.49 M/uL Hemoglobin 13.8 g/dL Hematocrit 41.5 % Mean Corpuscular Volume 92.4 fL Mean Corpuscular Hemoglobin 30.7 pg Mean Corpuscular Hemoglobin Concent 33.3 g/dl Platelet Count 201 K/uL Mean Platelet Volume 11.2 fL Neutrophils (%) (Auto) 53.5 % Lymphocytes (%) (Auto) 31.5 % Monocytes (%) (Auto) 12.1 % Eosinophils (%) (Auto) 1.9 % Basophils (%) (Auto) 0.5 % Neutrophils # (Auto) 4.88 K/uL Lymphocytes # (Auto) 2.88 K/uL Monocytes # (Auto) 1.11 K/uL Eosinophils # (Auto) 0.17 K/uL Basophils # (Auto) 0.05 K/uL RDW Standard Deviation 50.2 fL RDW Coefficient of Variation 14.7 % Immature Granulocyte % (Auto) 0.5 % Immature Granulocyte # (Auto) 0.05 K/uL Sodium Level 135 mmol/L Potassium Level 4.3 mmol/L Chloride Level 97 mmol/L Carbon Dioxide Level 28 mmol/L Anion Gap 10.0 mmol/L Blood Urea Nitrogen 18 mg/dl Creatinine 0.85 mg/dl Est Creatinine Clear Calc Drug Dose 96.1 ml/min Estimated GFR () 103.0 Estimated GFR (Non- 88.9 BUN/Creatinine Ratio 21.6 Random Glucose 187 mg/dl Calcium Level 9.3 mg/dl Test 10/15/16 12:33 Bedside Glucose 250 mg/dl Assessment & Plan 71 year old male with history o f Charcot Fidelia Tooth Disease, CAD, A fib, DM, COPD, PVD presenting after a fall. Left, Distal Femoral Fracture, Non displaced, Hairline Moderate Joint Effusion s/p Mechanical fall - with CT of the knee showing: Left knee effusion, Left Medial Femoral Condylar cortical fracture - evaluated by Ortho -- xrays of lower leg and ankle to r/o fracture: no fractures noted reports pain with knee immobilizer discussed with ortho, will need brace in place of immobilizer on outpatient ff up, for now, may loosen immobilizer - continue knee immobilizer, pain medication PRN awaiting acceptance to [facility] for further PT/OT Constipation continue Senokot S and Milk of Mg PRN PRN Lactulose Diabetes mellitus Type II: poorly controlled -hold oral diabetic medications - A1c 9.4 - Pharmacy Glycemic control consult now on Lantus and ISS, Pharmacy managing Insulin appreciate the input History of CAD stable continue Aspirin, Carvedilol hold Lisinopril/HCTZ due to BP being low Paroxysmal atrial fibrillation - on Digoxin, Carvedilol - only aspirin, but no anticoagulation - stable COPD: chronic, moderate -not in acute exacerbation -continue with his home inhalers Rhnthoi-Qzezh-Ssvkx 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 and uses specialized shoes with splints on both the legs however unable to use on the left leg due to knee immobilizer Chronic kidney disease Stage I/II: stable Hypertriglyceridemia: -labs show triglycerides over 500 increase Lovastatin Dispo: awaiting acceptance to [facility] Current Inpatient Medications: Current Inpatient Medications Medications (Trade) Dose Ordered Sig/Katherine Route Start Time Stop Time Status Last Admin Dose Admin Ascorbic Acid (Vitamin C Tab) 500 mg DAILY PO 10/10/16 09:00 11/09/16 08:59 10/15/16 08:13 500 MG Aspirin (Ecotrin Tab) 81 mg DAILY PO 10/10/16 09:00 11/09/16 08:59 10/15/16 08:13 81 MG Carvedilol (Coreg Tab) 12.5 mg BID PO 10/10/16 09:00 11/09/16 08:59 10/15/16 08:13 12.5 MG Digoxin (Lanoxin Tab) 0.125 mg DAILY@1600 PO 10/10/16 16:00 11/09/16 15:59 10/15/16 15:36 0.125 MG Salmeterol Xinafoate/ Fluticasone (Advair Diskus 250/50 Inh) 1 puff BID INH 10/10/16 09:00 11/09/16 08:59 10/15/16 08:11 1 PUFF Gabapentin (Neurontin Cap) 300 mg TID PO 10/10/16 09:00 11/09/16 08:59 10/15/16 13:03 300 MG Magnesium Oxide (Mag-Ox Tab) 400 mg DAILY PO 10/10/16 09:00 11/09/16 08:59 10/15/16 08:12 400 MG Multivitamins (Multivitamin Tab) 1 tab DAILY PO 10/10/16 09:00 11/09/16 08:59 10/15/16 08:13 1 TAB Niacin (Niaspan Extended Rel Tab) 1,000 mg AMHS PO 10/10/16 09:00 11/09/16 08:59 10/15/16 08:12 1,000 MG Tamsulosin HCl (Flomax Cap) 0.4 mg HS PO 10/10/16 21:00 11/09/16 20:59 10/14/16 21:14 0.4 MG Vitamin B Complex (Vitamin B Complex) 1 tab DAILY PO 10/10/16 09:00 11/09/16 08:59 10/15/16 08:12 1 TAB Cholecalciferol (Vitamin D Tab) 5,000 inter.unit QPM PO 10/10/16 21:00 11/09/16 20:59 10/14/16 21:15 5,000 INTER.UNIT Pantoprazole Sodium (Protonix Tab) 40 mg DAILY PO 10/10/16 09:00 11/09/16 08:59 10/15/16 08:12 40 MG Heparin Sodium (Porcine) (Heparin Sq 5000 Unit/0.5ml) 5,000 unit Q8H SQ 10/10/16 08:00 11/09/16 07:59 10/15/16 15:32 5,000 UNIT Ondansetron HCl (Zofran Inj) 4 mg Q6H PRN IV 10/10/16 02:30 11/09/16 02:29 Albuterol Sulfate (Ventolin 0.083% 2.5MG/3ML Neb) 2.5 mg Q6R PRN INH 10/10/16 02:45 11/09/16 02:44 Miscellaneous (Iv Fluids Completed) 1 ea PRN PRN N/A 10/10/16 02:45 10/10/17 02:44 Insulin Aspart (novoLOG ASPART) SLIDING SCALE G... ACHS SC 10/10/16 07:00 11/09/16 06:59 10/15/16 13:06 13 UNITS Glucose (Glucose 40% Gel) 15-30 GRAMS 15 GRAMS... UD PRN PO 10/10/16 04:15 11/09/16 04:14 Glucose (Glucose Chew Tab) 4-8 Tablets 4 Tabl... UD PRN PO 10/10/16 04:15 11/09/16 04:14 Dextrose (Dextrose 50% 50ML Syringe) 25-50ML OF 50% DW IV FOR... UD PRN IV 10/10/16 04:15 11/09/16 04:14 Glucagon (Glucagon Inj) 1 mg UD PRN SQ 10/10/16 04:15 11/09/16 04:14 Oxycodone HCl (Roxicodone Immediate Rel Tab) 10 mg Q4 PRN PO 10/11/16 18:00 10/25/16 17:59 10/15/16 13:03 10 MG Acetaminophen (Tylenol Tab) 650 mg Q6 PRN PO 10/11/16 17:00 11/10/16 16:59 10/15/16 10:42 650 MG Miscellaneous Information (Consult Glycemic Management Pharmacy) 1 ea UD PRN N/A 10/12/16 15:23 11/11/16 15:22 Senna/Docusate Sodium (Senokot S Tab) 1 tab QAM PO 10/13/16 09:00 11/12/16 08:59 10/15/16 08:12 1 TAB Magnesium Hydroxide (Milk Of Magnesia Susp) 30 ml Q6H PRN PO 10/12/16 15:30 11/11/16 15:29 10/14/16 18:57 30 ML Bisacodyl (Dulcolax Supp) 10 mg DAILY PRN [place] 10/12/16 15:30 11/11/16 15:29 Lovastatin (Mevacor Tab) 20 mg HS PO 10/13/16 21:00 11/12/16 20:59 10/14/16 21:14 20 MG Lactulose (Chronulac Syrup) 30 gm TID PRN PO 10/14/16 15:45 11/13/16 15:44 10/14/16 18:03 30 GM Insulin Glargine (Lantus Solostar Pen) 14 unit BID SC 10/15/16 09:05 11/14/16 09:04 10/15/16 09:12 14 UNIT
[2016-10-15] MEDS: TAMSULOSIN HCL 0.4 MG CAP PO SCH (20:23)
[2016-10-15] MEDS: CHOLECALCIFEROL 1000 INTER.UNIT TAB PO SCH (20:24)
[2016-10-15] MEDS: LOVASTATIN 20 MG TAB PO SCH (20:24)
[2016-10-15 23:15] VITALS: BP 128/77; PULSE 82; TEMP 37; O2SAT 92
[2016-10-16] MEDS: OXYCODONE HCL IR 5 MG TAB (IMMEDIATE RELEASE) PO PRN ×5 (04:22→23:41)
[2016-10-16 07:39] VITALS: BP 119/69; PULSE 92; TEMP 36.9; O2SAT 90
[2016-10-16] MEDS: FLUTICASONE/SALMETEROL 250/50 (ADVAIR) 14 PUFF/1 INHALER INH SCH ×2 (08:05→21:01)
[2016-10-16] MEDS: VITAMIN B COMPLEX TAB PO SCH (08:05)
[2016-10-16] MEDS: GABAPENTIN 300 MG CAP PO SCH ×3 (08:06→21:00)
[2016-10-16] MEDS: MAGNESIUM OXIDE 400 MG TAB PO SCH (08:06)
[2016-10-16] MEDS: DOCUSATE SODIUM/SENNA 50/8.6MG TAB PO SCH (08:06)
[2016-10-16] MEDS: CARVEDILOL 12.5 MG TAB PO SCH ×2 (08:06→21:00)
[2016-10-16] MEDS: ASPIRIN 81 MG ECTAB PO SCH (08:06)
[2016-10-16] MEDS: NIASPAN 500 MG TABCR PO SCH ×2 (08:06→21:00)
[2016-10-16] MEDS: MULTIVITAMIN TAB PO SCH (08:07)
[2016-10-16] MEDS: ASCORBIC ACID 500 MG TAB PO SCH (08:07)
[2016-10-16] MEDS: PANTOprazole SOD 40 MG TAB PO SCH (08:07)
[2016-10-16] MEDS: HEPARIN SOD 5000 UNIT/0.5 ML CARP SQ SCH ×3 (08:12→23:40)
[2016-10-16] MEDS: INSULIN ASPART 100 UNITS/ML 3 ML PEN SC SCH ×4 (09:14→20:56)
[2016-10-16] MEDS: INSULIN GLARGINE SOLOSTAR 100 UNITS/ML 3 ML PEN SC SCH ×2 (09:15→20:57)
[2016-10-16] MEDS: ACETAMINOPHEN 325 MG TAB PO PRN ×2 (11:41→21:01)
--- NOTE | 2016-10-16 14:42 | Pharmacy Progress Note ---
Glycemic: Assessment & Plan Date of Service Oct 16, 2016. Assessment & Plan The patient received 55 units of insulin on 10/14, 68 units on 10/15. BSGs ranging 224-336 mg/dl over the past 24hrs. 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 Watch for possible lower BSG at suppertime due to insulin stacking. Will reassess in am. * Basal insulin: Lantus 16 units every 12 hours * Correctional Insulin: Novolog Correction per scale ACHS, also 0200 Goal Range: Low 110 mg/dL - High 140 mg/dL Correction Factor: 20 mg/dL/unit * Prandial insulin: Per carb ratio of 1 unit per 7 grams CHO consumed BSGs continue to improve, no other changes needed to inpatient regimen at this time. Pharmacy will continue to monitor patient daily and write orders per [facility] inpatient glycemic control protocol. Thanks. * Please note that the plan above was derived based on current level of insulin resistance and hospital stress. These recommendations are appropriate for inpatient admission only. Plan of care upon discharge will need to be reassessed to avoid potential outpatient hypo/hyperglycemia.
[2016-10-16 15:53] VITALS: BP 115/68; PULSE 70; TEMP 36.4; O2SAT 92
[2016-10-16] MEDS: DIGOXIN 0.125 MG TAB PO SCH (16:12)
[2016-10-16] MEDS: LACTULOSE SYRUP 30 GM/45 ML UDP PO PRN (18:53)
--- NOTE | 2016-10-16 18:57 | Progress Note ---
Medicine Progress Note Date & Time of Visit: Oct 16, 2016 at 18:54. Subjective sitting up in bed comfortable pain still moderate but well controlled no BM yet today, (+) flatus no other symptoms Objective Last 8 Hrs Date Time Temp Pulse Resp B/P Pulse Ox O2 Delivery O2 Flow Rate FiO2 10/16/16 16:12 72 10/16/16 15:53 36.4 70 18 115/68 92 Room Air 10/16/16 15:45 Room Air Physical Exam: General- oriented x 3, not in distress, speaks in sentences with no effort Lungs- clear breath sounds bilaterally, no rales/wheezes Heart- normal rate, regular rhythm; no murmurs Abdomen- normal bowel sounds, soft, nontender Extremities- right knee: essentially normal left knee:immobilizer in place Neuro- alert, oriented x 3; no gross focal deficits Skin- warm & dry Laboratory Results: Last 24 Hours Test 10/15/16 20:18 10/16/16 08:13 10/16/16 12:32 10/16/16 16:55 Bedside Glucose 234 mg/dl 229 mg/dl 336 mg/dl 242 mg/dl Assessment & Plan 71 year old male with history o f Charcot Fidelia Tooth Disease, CAD, A fib, DM, COPD, PVD presenting after a fall. Left, Distal Femoral Fracture, Non displaced, Hairline Moderate Joint Effusion s/p Mechanical fall - with CT of the knee showing: Left knee effusion, Left Medial Femoral Condylar cortical fracture - evaluated by Ortho -- xrays of lower leg and ankle to r/o fracture: no fractures noted reports pain with knee immobilizer discussed with ortho, will need brace in place of immobilizer on outpatient ff up, for now, may loosen immobilizer - continue knee immobilizer, pain medication PRN awaiting acceptance to [facility] for further PT/OT - stable overall Constipation continue Senokot S and Milk of Mg PRN PRN Lactulose Diabetes mellitus Type II: poorly controlled -hold oral diabetic medications - A1c 9.4 - Pharmacy Glycemic control consult now on Lantus and ISS, Pharmacy managing Insulin appreciate the input History of CAD stable continue Aspirin, Carvedilol hold Lisinopril/HCTZ due to BP being low Paroxysmal atrial fibrillation - on Digoxin, Carvedilol - only aspirin, but no anticoagulation - stable COPD: chronic, moderate -not in acute exacerbation -continue with his home inhalers 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 and uses specialized shoes with splints on both the legs however unable to use on the left leg due to knee immobilizer Chronic kidney disease Stage I/II: stable Hypertriglyceridemia: -labs show triglycerides over 500 increase Lovastatin Dispo: awaiting acceptance to [facility] Current Inpatient Medications: Current Inpatient Medications Medications (Trade) Dose Ordered Sig/Katherine Route Start Time Stop Time Status Last Admin Dose Admin Ascorbic Acid (Vitamin C Tab) 500 mg DAILY PO 10/10/16 09:00 11/09/16 08:59 10/16/16 08:07 500 MG Aspirin (Ecotrin Tab) 81 mg DAILY PO 10/10/16 09:00 11/09/16 08:59 10/16/16 08:06 81 MG Carvedilol (Coreg Tab) 12.5 mg BID PO 10/10/16 09:00 11/09/16 08:59 10/16/16 08:06 12.5 MG Digoxin (Lanoxin Tab) 0.125 mg DAILY@1600 PO 10/10/16 16:00 11/09/16 15:59 10/16/16 16:12 0.125 MG Salmeterol Xinafoate/ Fluticasone (Advair Diskus 250/50 Inh) 1 puff BID INH 10/10/16 09:00 11/09/16 08:59 10/16/16 08:05 1 PUFF Gabapentin (Neurontin Cap) 300 mg TID PO 10/10/16 09:00 11/09/16 08:59 10/16/16 13:23 300 MG Magnesium Oxide (Mag-Ox Tab) 400 mg DAILY PO 10/10/16 09:00 11/09/16 08:59 10/16/16 08:06 400 MG Multivitamins (Multivitamin Tab) 1 tab DAILY PO 10/10/16 09:00 11/09/16 08:59 10/16/16 08:07 1 TAB Niacin (Niaspan Extended Rel Tab) 1,000 mg AMHS PO 10/10/16 09:00 11/09/16 08:59 10/16/16 08:06 1,000 MG Tamsulosin HCl (Flomax Cap) 0.4 mg HS PO 10/10/16 21:00 11/09/16 20:59 1/20/17 20:23 0.4 MG Vitamin B Complex (Vitamin B Complex) 1 tab DAILY PO 10/10/16 09:00 11/09/16 08:59 10/16/16 08:05 1 TAB Cholecalciferol (Vitamin D Tab) 5,000 inter.unit QPM PO 10/10/16 21:00 11/09/16 20:59 10/15/16 20:24 5,000 INTER.UNIT Pantoprazole Sodium (Protonix Tab) 40 mg DAILY PO 10/10/16 09:00 11/09/16 08:59 10/16/16 08:07 40 MG Heparin Sodium (Porcine) (Heparin Sq 5000 Unit/0.5ml) 5,000 unit Q8H SQ 10/10/16 08:00 11/09/16 07:59 10/16/16 16:14 5,000 UNIT Ondansetron HCl (Zofran Inj) 4 mg Q6H PRN IV 10/10/16 02:30 11/09/16 02:29 Albuterol Sulfate (Ventolin 0.083% 2.5MG/3ML Neb) 2.5 mg Q6R PRN INH 10/10/16 02:45 11/09/16 02:44 Miscellaneous (Iv Fluids Completed) 1 ea PRN PRN N/A 10/10/16 02:45 10/10/17 02:44 Insulin Aspart (novoLOG ASPART) SLIDING SCALE G... ACHS SC 10/10/16 07:00 11/09/16 06:59 10/16/16 17:45 12 UNITS Glucose (Glucose 40% Gel) 15-30 GRAMS 15 GRAMS... UD PRN PO 10/10/16 04:15 11/09/16 04:14 Glucose (Glucose Chew Tab) 4-8 Tablets 4 Tabl... UD PRN PO 10/10/16 04:15 11/09/16 04:14 Dextrose (Dextrose 50% 50ML Syringe) 25-50ML OF 50% DW IV FOR... UD PRN IV 10/10/16 04:15 11/09/16 04:14 Glucagon (Glucagon Inj) 1 mg UD PRN SQ 10/10/16 04:15 11/09/16 04:14 Oxycodone HCl (Roxicodone Immediate Rel Tab) 10 mg Q4 PRN PO 10/11/16 18:00 10/25/16 17:59 10/16/16 18:53 10 MG Acetaminophen (Tylenol Tab) 650 mg Q6 PRN PO 10/11/16 17:00 11/10/16 16:59 10/16/16 11:41 650 MG Miscellaneous Information (Consult Glycemic Management Pharmacy) 1 ea UD PRN N/A 10/12/16 15:23 11/11/16 15:22 Senna/Docusate Sodium (Senokot S Tab) 1 tab QAM PO 10/13/16 09:00 11/12/16 08:59 10/16/16 08:06 1 TAB Magnesium Hydroxide (Milk Of Magnesia Susp) 30 ml Q6H PRN PO 10/12/16 15:30 11/11/16 15:29 10/14/16 18:57 30 ML Bisacodyl (Dulcolax Supp) 10 mg DAILY PRN [place] 10/12/16 15:30 11/11/16 15:29 Lovastatin (Mevacor Tab) 20 mg HS PO 10/13/16 21:00 11/12/16 20:59 10/15/16 20:24 20 MG Lactulose (Chronulac Syrup) 30 gm TID PRN PO 10/14/16 15:45 11/13/16 15:44 10/16/16 18:53 30 GM Insulin Glargine (Lantus Solostar Pen) 16 unit BID SC 10/16/16 21:00 11/15/16 20:59 Insulin Aspart (novoLOG ASPART) SLIDING SCALE G... 0200 SC 10/17/16 02:00 10/17/16 02:01
[2016-10-16 20:45] VITALS: BP 109/62; PULSE 77
[2016-10-16] MEDS: CHOLECALCIFEROL 1000 INTER.UNIT TAB PO SCH (20:59)
[2016-10-16] MEDS: TAMSULOSIN HCL 0.4 MG CAP PO SCH (20:59)
[2016-10-16] MEDS: LOVASTATIN 20 MG TAB PO SCH (20:59)
[2016-10-16 23:47] VITALS: BP 136/79; PULSE 91; TEMP 37.2; O2SAT 91
[2016-10-17] MEDS ORDERED: INSULIN ASPART 100 UNITS/ML 3 ML PEN SC SCH (02:00)
[2016-10-17] MEDS: OXYCODONE HCL IR 5 MG TAB (IMMEDIATE RELEASE) PO PRN ×4 (06:39→20:27)
[2016-10-17 08:11] VITALS: BP 122/75; PULSE 79; TEMP 36.9; O2SAT 90
[2016-10-17 08:30] VITALS: O2SAT 91
[2016-10-17] MEDS: CARVEDILOL 12.5 MG TAB PO SCH ×2 (08:31→21:10)
[2016-10-17] MEDS: FLUTICASONE/SALMETEROL 250/50 (ADVAIR) 14 PUFF/1 INHALER INH SCH ×2 (08:31→21:09)
[2016-10-17] MEDS: ASPIRIN 81 MG ECTAB PO SCH (08:31)
[2016-10-17] MEDS: MAGNESIUM OXIDE 400 MG TAB PO SCH (08:32)
[2016-10-17] MEDS: ASCORBIC ACID 500 MG TAB PO SCH (08:32)
[2016-10-17] MEDS: MULTIVITAMIN TAB PO SCH (08:32)
[2016-10-17] MEDS: PANTOprazole SOD 40 MG TAB PO SCH (08:32)
[2016-10-17] MEDS: GABAPENTIN 300 MG CAP PO SCH ×3 (08:32→21:11)
[2016-10-17] MEDS: VITAMIN B COMPLEX TAB PO SCH (08:32)
[2016-10-17] MEDS: NIASPAN 500 MG TABCR PO SCH ×2 (08:33→21:12)
[2016-10-17] MEDS: DOCUSATE SODIUM/SENNA 50/8.6MG TAB PO SCH (08:33)
[2016-10-17] MEDS: INSULIN ASPART 100 UNITS/ML 3 ML PEN SC SCH ×4 (08:38→21:18)
[2016-10-17] MEDS: INSULIN GLARGINE SOLOSTAR 100 UNITS/ML 3 ML PEN SC SCH ×2 (08:39→21:21)
[2016-10-17] MEDS: HEPARIN SOD 5000 UNIT/0.5 ML CARP SQ SCH ×2 (08:39→15:47)
[2016-10-17] MEDS ORDERED: INSULIN GLARGINE SOLOSTAR 100 UNITS/ML 3 ML PEN SC ONE ×2 (10:15)
[2016-10-17] MEDS: ACETAMINOPHEN 325 MG TAB PO PRN (13:20)
[2016-10-17 15:22] VITALS: BP 119/73; PULSE 69; TEMP 36.7; O2SAT 92
--- NOTE | 2016-10-17 15:27 | Pharmacy Progress Note ---
Glycemic: Assessment & Plan Date of Service Oct 17, 2016. Assessment & Plan * BSGs mostly elevated > 200mg/dl the past 24 hours. * Based upon the TDD of insulin yesterday will increase Lantus by 20 %. FBG this morning was 221 mg/dl despite 8 units of Novolog correction administered overnight. * Diet: AHA/DM2 * Post-prandial BSGs remain elevated throughout the day and are not correcting to goal BSG range. Therefore, will also tighten Novolog parameters. PLAN FOR INPATIENT GLYCEMIC REGIMEN: * Basal insulin: Increase - Lantus 20 units every 12 hours; 1/2 dose for BSG below 110 mg/dl * Correctional Insulin: Novolog Correction per scale ACHS Goal Range: Low 110 mg/dL - High 140 mg/dL Tighten - Correction Factor: 15 mg/dL/unit * Prandial insulin: Tighten - Per carb ratio of 1 unit per 5 grams CHO consumed Pharmacy will continue to monitor patient daily and write orders per [facility] inpatient glycemic control protocol. Thanks. * Please note that the plan above was derived based on current level of insulin resistance and hospital stress. These recommendations are appropriate for inpatient admission only. Plan of care upon discharge will need to be reassessed to avoid potential outpatient hypo/hyperglycemia.
[2016-10-17] MEDS: DIGOXIN 0.125 MG TAB PO SCH (15:48)
--- NOTE | 2016-10-17 17:31 | Progress Note ---
Medicine Progress Note Date & Time of Visit: Oct 17, 2016 at 17:27. Subjective sitting at the edge of the bed, talking to daughter via skype states knee pain is about the same no leg weakness/numbness no BM today Objective Last 8 Hrs Date Time Temp Pulse Resp B/P Pulse Ox O2 Delivery O2 Flow Rate FiO2 10/17/16 15:48 68 10/17/16 15:22 36.7 69 18 119/73 92 Room Air Physical Exam: General- oriented x 3, not in distress, speaks in sentences with no effort Lungs- clear breath sounds, no rales/wheezes, bilaterally Heart- normal rate, regular rhythm; no murmurs Abdomen- normal bowel sounds, soft, nontender Extremities- right knee: essentially normal left knee:mild knee swelling, no tenderness, lower leg essentially normal Neuro- alert, oriented x 3; no gross focal deficits Skin- warm & dry Laboratory Results: Last 24 Hours Test 10/16/16 20:36 10/17/16 01:57 10/17/16 07:45 10/17/16 12:26 Bedside Glucose 210 mg/dl 209 mg/dl 221 mg/dl 276 mg/dl Test 10/17/16 16:58 Bedside Glucose 184 mg/dl Assessment & Plan 71 year old male with history o f Charcot Fidelia Tooth Disease, CAD, A fib, DM, COPD, PVD presenting after a fall. Left, Distal Femoral Fracture, Non displaced, Hairline Moderate Joint Effusion s/p Mechanical fall - with CT of the knee showing: Left knee effusion, Left Medial Femoral Condylar cortical fracture - evaluated by Ortho -- xrays of lower leg and ankle to r/o fracture: no fractures noted reports pain with knee immobilizer discussed with ortho, will need brace in place of immobilizer on outpatient ff up, for now, may loosen immobilizer - continue knee immobilizer, pain medication PRN awaiting acceptance to [facility] for further PT/OT - pain well controlled, stable overall Constipation continue Senokot S and Milk of Mg PRN PRN Lactulose Diabetes mellitus Type II: poorly controlled -hold oral diabetic medications - A1c 9.4 - Pharmacy Glycemic control consult now on Lantus and ISS, Pharmacy managing Insulin appreciate the input improving History of CAD stable continue Aspirin, Carvedilol hold Lisinopril/HCTZ due to BP being low Paroxysmal atrial fibrillation - on Digoxin, Carvedilol, aspirin - but no anticoagulation - stable COPD: chronic, moderate -not in acute exacerbation -continue with his home inhalers Omrttrl-Zjbwe-Ycpjc 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 and uses specialized shoes with splints on both the legs however unable to use on the left leg due to knee immobilizer Chronic kidney disease Stage I/II: stable Hypertriglyceridemia: -labs show triglycerides over 500 increase Lovastatin Dispo: awaiting acceptance to [facility] Current Inpatient Medications: Current Inpatient Medications Medications (Trade) Dose Ordered Sig/Katherine Route Start Time Stop Time Status Last Admin Dose Admin Ascorbic Acid (Vitamin C Tab) 500 mg DAILY PO 10/10/16 09:00 11/09/16 08:59 10/17/16 08:32 500 MG Aspirin (Ecotrin Tab) 81 mg DAILY PO 10/10/16 09:00 11/09/16 08:59 10/17/16 08:31 81 MG Carvedilol (Coreg Tab) 12.5 mg BID PO 10/10/16 09:00 11/09/16 08:59 10/17/16 08:31 12.5 MG Digoxin (Lanoxin Tab) 0.125 mg DAILY@1600 PO 10/10/16 16:00 11/09/16 15:59 10/17/16 15:48 0.125 MG Salmeterol Xinafoate/ Fluticasone (Advair Diskus 250/50 Inh) 1 puff BID INH 10/10/16 09:00 11/09/16 08:59 10/17/16 08:31 1 PUFF Gabapentin (Neurontin Cap) 300 mg TID PO 10/10/16 09:00 11/09/16 08:59 10/17/16 13:10 300 MG Magnesium Oxide (Mag-Ox Tab) 400 mg DAILY PO 10/10/16 09:00 11/09/16 08:59 10/17/16 08:32 400 MG Multivitamins (Multivitamin Tab) 1 tab DAILY PO 10/10/16 09:00 11/09/16 08:59 10/17/16 08:32 1 TAB Niacin (Niaspan Extended Rel Tab) 1,000 mg AMHS PO 10/10/16 09:00 11/09/16 08:59 10/17/16 08:33 1,000 MG Tamsulosin HCl (Flomax Cap) 0.4 mg HS PO 10/10/16 21:00 11/09/16 20:59 10/16/16 20:59 0.4 MG Vitamin B Complex (Vitamin B Complex) 1 tab DAILY PO 10/10/16 09:00 11/09/16 08:59 10/17/16 08:32 1 TAB Cholecalciferol (Vitamin D Tab) 5,000 inter.unit QPM PO 10/10/16 21:00 11/09/16 20:59 10/16/16 20:59 5,000 INTER.UNIT Pantoprazole Sodium (Protonix Tab) 40 mg DAILY PO 10/10/16 09:00 11/09/16 08:59 10/17/16 08:32 40 MG Heparin Sodium (Porcine) (Heparin Sq 5000 Unit/0.5ml) 5,000 unit Q8H SQ 10/10/16 08:00 11/09/16 07:59 10/17/16 15:47 5,000 UNIT Ondansetron HCl (Zofran Inj) 4 mg Q6H PRN IV 10/10/16 02:30 11/09/16 02:29 Albuterol Sulfate (Ventolin 0.083% 2.5MG/3ML Neb) 2.5 mg Q6R PRN INH 10/10/16 02:45 11/09/16 02:44 Miscellaneous (Iv Fluids Completed) 1 ea PRN PRN N/A 10/10/16 02:45 10/10/17 02:44 Insulin Aspart (novoLOG ASPART) SLIDING SCALE G... ACHS SC 10/10/16 07:00 11/09/16 06:59 10/17/16 13:18 24 UNITS Glucose (Glucose 40% Gel) 15-30 GRAMS 15 GRAMS... UD PRN PO 10/10/16 04:15 11/09/16 04:14 Glucose (Glucose Chew Tab) 4-8 Tablets 4 Tabl... UD PRN PO 10/10/16 04:15 11/09/16 04:14 Dextrose (Dextrose 50% 50ML Syringe) 25-50ML OF 50% DW IV FOR... UD PRN IV 10/10/16 04:15 11/09/16 04:14 Glucagon (Glucagon Inj) 1 mg UD PRN SQ 10/10/16 04:15 11/09/16 04:14 Oxycodone HCl (Roxicodone Immediate Rel Tab) 10 mg Q4 PRN PO 10/11/16 18:00 10/25/16 17:59 10/17/16 15:42 10 MG Acetaminophen (Tylenol Tab) 650 mg Q6 PRN PO 10/11/16 17:00 11/10/16 16:59 10/17/16 13:20 650 MG Miscellaneous Information (Consult Glycemic Management Pharmacy) 1 ea UD PRN N/A 10/12/16 15:23 11/11/16 15:22 Senna/Docusate Sodium (Senokot S Tab) 1 tab QAM PO 10/13/16 09:00 11/12/16 08:59 10/17/16 08:33 1 TAB Magnesium Hydroxide (Milk Of Magnesia Susp) 30 ml Q6H PRN PO 10/12/16 15:30 11/11/16 15:29 10/14/16 18:57 30 ML Bisacodyl (Dulcolax Supp) 10 mg DAILY PRN [place] 10/12/16 15:30 11/11/16 15:29 Lovastatin (Mevacor Tab) 20 mg HS PO 10/13/16 21:00 11/12/16 20:59 10/16/16 20:59 20 MG Lactulose (Chronulac Syrup) 30 gm TID PRN PO 10/14/16 15:45 11/13/16 15:44 10/16/16 18:53 30 GM Insulin Aspart (novoLOG ASPART) SLIDING SCALE G... 0200 SC 10/18/16 02:00 11/17/16 01:59 Insulin Glargine (Lantus Solostar Pen) 20 unit BID SC 10/17/16 21:00 11/16/16 20:59
[2016-10-17] MEDS: LACTULOSE SYRUP 30 GM/45 ML UDP PO PRN (18:33)
[2016-10-17] MEDS: LOVASTATIN 20 MG TAB PO SCH (21:11)
[2016-10-17] MEDS: TAMSULOSIN HCL 0.4 MG CAP PO SCH (21:11)
[2016-10-17] MEDS: CHOLECALCIFEROL 1000 INTER.UNIT TAB PO SCH (21:12)
[2016-10-17 22:48] VITALS: BP 130/71; PULSE 87; TEMP 36.7; O2SAT 93
[2016-10-18] MEDS: HEPARIN SOD 5000 UNIT/0.5 ML CARP SQ SCH ×3 (00:10→16:03)
[2016-10-18] MEDS ORDERED: INSULIN ASPART 100 UNITS/ML 3 ML PEN SC SCH (02:00)
[2016-10-18] MEDS: OXYCODONE HCL IR 5 MG TAB (IMMEDIATE RELEASE) PO PRN ×4 (02:21→22:29)
[2016-10-18] MEDS: ACETAMINOPHEN 325 MG TAB PO PRN ×2 (04:28→12:09)
[2016-10-18 07:58] VITALS: BP 96/63; PULSE 79; TEMP 36.8; O2SAT 90
[2016-10-18] MEDS: INSULIN ASPART 100 UNITS/ML 3 ML PEN SC SCH ×4 (09:56→21:21)
[2016-10-18] MEDS: ASCORBIC ACID 500 MG TAB PO SCH (09:59)
[2016-10-18] MEDS: FLUTICASONE/SALMETEROL 250/50 (ADVAIR) 14 PUFF/1 INHALER INH SCH ×2 (09:59→21:15)
[2016-10-18] MEDS: DOCUSATE SODIUM/SENNA 50/8.6MG TAB PO SCH (10:00)
[2016-10-18] MEDS: MULTIVITAMIN TAB PO SCH (10:00)
[2016-10-18] MEDS: NIASPAN 500 MG TABCR PO SCH ×2 (10:00→21:15)
[2016-10-18] MEDS: PANTOprazole SOD 40 MG TAB PO SCH (10:00)
[2016-10-18] MEDS: VITAMIN B COMPLEX TAB PO SCH (10:01)
[2016-10-18] MEDS: ASPIRIN 81 MG ECTAB PO SCH (10:01)
[2016-10-18] MEDS: CARVEDILOL 12.5 MG TAB PO SCH ×2 (10:01→21:16)
[2016-10-18] MEDS: MAGNESIUM OXIDE 400 MG TAB PO SCH (10:03)
[2016-10-18] MEDS: GABAPENTIN 300 MG CAP PO SCH ×3 (10:04→21:16)
--- NOTE | 2016-10-18 10:37 | Pharmacy Progress Note ---
Glycemic Control: Progress Nt Date of Service Oct 18, 2016. Scope Glycemic Pharmacist consulted by Dr Abbott on 10/12/16 for glycemic control and to write orders per [facility] inpatient glycemic control protocol. Objective Accuchecks BSG (last 24hrs): Test 10/17/16 12:26 10/17/16 16:58 10/17/16 20:45 10/18/16 02:04 Bedside Glucose 276 mg/dl (70-99) 184 mg/dl (70-99) 238 mg/dl (70-99) 181 mg/dl (70-99) Test 10/18/16 08:16 Bedside Glucose 200 mg/dl (70-99) HbA1c: Test 10/11/16 05:50 Hemoglobin A1c 9.4 % (4.5-5.6) H Recent Pertinent Medications Outpatient Anti-diabetic Regimen: * Metformin 1000 mg po BID * Amaryl 2 mg po daily * A1c = 9.4 % on 10/11/16 The patient is currently receiving: * Basal insulin: Lantus 20 units every 12 hours - 1/2 dose for BSG < 110 mg/dL * Correctional Insulin: Novolog Correction per scale ACHS Goal Range: Low 110 mg/dL - High 140 mg/dL Correction Factor: 15 mg/dL/unit * Prandial insulin: Per carb ratio of 1 unit per 5 grams CHO consumed * Oral Agents: On hold Risk Factors for Insulin Resistance: * Diet: T2DM / AHA Assessment & Plan ASSESSMENT: * ADA & AACE recommend a goal blood sugar range 140-180 mg/dl for the majority of critically ill & non-critically ill patients. However, more stringent targets may be selected in individual cases. 10/18/16 * BSG's persistently elevated x24 hours despite change in correction factor and carb ratio yesterday, ranging 181-276 mg/dL * Received 103 units of insulin total yesterday, with about 39% percent as basal. AM fasting BSG elevated to 200 mg/dL this AM. OK to increase basal insulin - will do so by 10%. PLAN FOR INPATIENT GLYCEMIC CONTROL: * Continue to hold outpatient oral diabetes medications * Increase basal insulin with LANTUS 24 units SQ x1 this PM, then 22 units SQ q12 (1/2 dose for BSG < 110 mg/dL) * Correctional Insulin with NOVOLOG per scale ACHS or Q6hrs while NPO - eliminate overnight check * Goal Range: Low 110 mg/dL - High 140 mg/dL * Correction Factor: 15 mg/dL/unit * Nutritional / Prandial insulin per carb ratio of 1 unit per 5 grams CHO consumed * Please note that the plan above was derived based on current level of insulin resistance and hospital stress. These recommendations are appropriate for inpatient admission only. Plan of care upon discharge will need to be reassessed to avoid potential outpatient hypo/hyperglycemia. Thank you.
[2016-10-18] MEDS: INSULIN GLARGINE SOLOSTAR 100 UNITS/ML 3 ML PEN SC SCH (11:16)
[2016-10-18 15:22] VITALS: BP 109/66; PULSE 71; TEMP 37.1; O2SAT 92
[2016-10-18] MEDS: DIGOXIN 0.125 MG TAB PO SCH (16:01)
--- NOTE | 2016-10-18 19:35 | Progress Note ---
Medicine Progress Note Date & Time of Visit: Oct 18, 2016 at 19:35. delayed entry date of service 10/18/16 Subjective resting in bed, comfortable knee pain improving gradually no leg weakness denies chest pain, dyspnea, palpitations no other symptoms Objective Last 8 Hrs Date Time Temp Pulse Resp B/P Pulse Ox O2 Delivery O2 Flow Rate FiO2 10/18/16 16:01 68 10/18/16 15:22 37.1 71 18 109/66 92 Room Air Physical Exam: General- oriented x 3, not in distress, speaks in sentences with no effort Lungs- clear breath sounds bilaterally Heart- normal rate, regular rhythm; no murmurs Abdomen- normal bowel sounds, soft, nontender Extremities- right knee: essentially normal left knee:mild knee swelling, no tenderness, lower leg essentially normal Neuro- alert, oriented x 3; no gross focal deficits Skin- warm & dry Laboratory Results: Last 24 Hours Test 10/17/16 20:45 10/18/16 02:04 10/18/16 08:16 10/18/16 11:45 Bedside Glucose 238 mg/dl 181 mg/dl 200 mg/dl 260 mg/dl Test 10/18/16 16:57 Bedside Glucose 172 mg/dl Assessment & Plan 71 year old male with history of Charcot Fidelia Tooth Disease, CAD, A fib, DM, COPD, PVD presenting after a fall. Left, Distal Femoral Fracture, Non displaced, Hairline Moderate Joint Effusion s/p Mechanical fall - with CT of the knee showing: Left knee effusion, Left Medial Femoral Condylar cortical fracture - evaluated by Ortho -- xrays of lower leg and ankle to r/o fracture: no fractures noted reports pain with knee immobilizer discussed with ortho, will need brace in place of immobilizer on outpatient ff up, for now, may loosen immobilizer - continue knee immobilizer, pain medication PRN awaiting acceptance to [facility] for further PT/OT - pain remains well controlled patient is stable Constipation continue Senokot S and Milk of Mg PRN PRN Lactulose Diabetes mellitus Type II: poorly controlled -hold oral diabetic medications - A1c 9.4 - Pharmacy Glycemic control consult on Lantus and ISS, Pharmacy managing Insulin History of CAD stable continue Aspirin, Carvedilol hold Lisinopril/HCTZ due to BP being low Paroxysmal atrial fibrillation - on Digoxin, Carvedilol, aspirin - but no anticoagulation - stable COPD: chronic, moderate -not in acute exacerbation -continue with his home inhalers Drfvstm-Nqazd-Sorox 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 and uses specialized shoes with splints on both the legs however unable to use on the left leg due to knee immobilizer Chronic kidney disease Stage I/II: stable Hypertriglyceridemia: -labs show triglycerides over 500 increase Lovastatin Dispo: awaiting acceptance to [facility] Current Inpatient Medications: Current Inpatient Medications Medications (Trade) Dose Ordered Sig/Katherine Route Start Time Stop Time Status Last Admin Dose Admin Ascorbic Acid (Vitamin C Tab) 500 mg DAILY PO 10/10/16 09:00 11/09/16 08:59 10/18/16 09:59 500 MG Aspirin (Ecotrin Tab) 81 mg DAILY PO 10/10/16 09:00 11/09/16 08:59 10/18/16 10:01 81 MG Carvedilol (Coreg Tab) 12.5 mg BID PO 10/10/16 09:00 11/09/16 08:59 10/18/16 10:01 12.5 MG Digoxin (Lanoxin Tab) 0.125 mg DAILY@1600 PO 10/10/16 16:00 11/09/16 15:59 10/18/16 16:01 0.125 MG Salmeterol Xinafoate/ Fluticasone (Advair Diskus 250/50 Inh) 1 puff BID INH 10/10/16 09:00 11/09/16 08:59 10/18/16 09:59 1 PUFF Gabapentin (Neurontin Cap) 300 mg TID PO 10/10/16 09:00 11/09/16 08:59 10/18/16 15:12 300 MG Magnesium Oxide (Mag-Ox Tab) 400 mg DAILY PO 10/10/16 09:00 11/09/16 08:59 10/18/16 10:03 400 MG Multivitamins (Multivitamin Tab) 1 tab DAILY PO 10/10/16 09:00 11/09/16 08:59 10/18/16 10:00 1 TAB Niacin (Niaspan Extended Rel Tab) 1,000 mg AMHS PO 10/10/16 09:00 11/09/16 08:59 10/18/16 10:00 1,000 MG Tamsulosin HCl (Flomax Cap) 0.4 mg HS PO 10/10/16 21:00 11/09/16 20:59 10/17/16 21:11 0.4 MG Vitamin B Complex (Vitamin B Complex) 1 tab DAILY PO 10/10/16 09:00 11/09/16 08:59 10/18/16 10:01 1 TAB Cholecalciferol (Vitamin D Tab) 5,000 inter.unit QPM PO 10/10/16 21:00 11/09/16 20:59 10/17/16 21:12 5,000 INTER.UNIT Pantoprazole Sodium (Protonix Tab) 40 mg DAILY PO 10/10/16 09:00 11/09/16 08:59 10/18/16 10:00 40 MG Heparin Sodium (Porcine) (Heparin Sq 5000 Unit/0.5ml) 5,000 unit Q8H SQ 10/10/16 08:00 11/09/16 07:59 10/18/16 16:03 5,000 UNIT Ondansetron HCl (Zofran Inj) 4 mg Q6H PRN IV 10/10/16 02:30 11/09/16 02:29 Albuterol Sulfate (Ventolin 0.083% 2.5MG/3ML Neb) 2.5 mg Q6R PRN INH 10/10/16 02:45 11/09/16 02:44 Miscellaneous (Iv Fluids Completed) 1 ea PRN PRN N/A 10/10/16 02:45 10/10/17 02:44 Insulin Aspart (novoLOG ASPART) SLIDING SCALE G... ACHS SC 10/10/16 07:00 11/09/16 06:59 10/18/16 18:45 10 UNITS Glucose (Glucose 40% Gel) 15-30 GRAMS 15 GRAMS... UD PRN PO 10/10/16 04:15 11/09/16 04:14 Glucose (Glucose Chew Tab) 4-8 Tablets 4 Tabl... UD PRN PO 10/10/16 04:15 11/09/16 04:14 Dextrose (Dextrose 50% 50ML Syringe) 25-50ML OF 50% DW IV FOR... UD PRN IV 10/10/16 04:15 11/09/16 04:14 Glucagon (Glucagon Inj) 1 mg UD PRN SQ 10/10/16 04:15 11/09/16 04:14 Oxycodone HCl (Roxicodone Immediate Rel Tab) 10 mg Q4 PRN PO 10/11/16 18:00 10/25/16 17:59 10/18/16 16:00 10 MG Acetaminophen (Tylenol Tab) 650 mg Q6 PRN PO 10/11/16 17:00 11/10/16 16:59 10/18/16 12:09 650 MG Miscellaneous Information (Consult Glycemic Management Pharmacy) 1 ea UD PRN N/A 10/12/16 15:23 11/11/16 15:22 Senna/Docusate Sodium (Senokot S Tab) 1 tab QAM PO 10/13/16 09:00 11/12/16 08:59 10/18/16 10:00 1 TAB Magnesium Hydroxide (Milk Of Magnesia Susp) 30 ml Q6H PRN PO 10/12/16 15:30 11/11/16 15:29 10/14/16 18:57 30 ML Bisacodyl (Dulcolax Supp) 10 mg DAILY PRN [place] 10/12/16 15:30 11/11/16 15:29 Lovastatin (Mevacor Tab) 20 mg HS PO 10/13/16 21:00 11/12/16 20:59 10/17/16 21:11 20 MG Lactulose (Chronulac Syrup) 30 gm TID PRN PO 10/14/16 15:45 11/13/16 15:44 10/17/16 18:33 30 GM Insulin Glargine (Lantus Solostar Pen) 12 UNITS FOR BSG < 110 MG... BID SC 10/18/16 21:00 10/18/16 23:59 Insulin Glargine (Lantus Solostar Pen) 11 UNITS FOR BSG < 110 MG... BID SC 10/19/16 09:00 11/18/16 08:59
[2016-10-18 20:28] LABS: BASO % 0.6 %; BASO ABS # 0.06 K/uL (0-0.2); COMPLETE YES; EOS % 1.7 %; HEMATOCRIT 42.9 % (42-52); IG% 0.6 %; LYMPH % 29.5 %; LYMPH ABS # 2.78 K/uL (1.2-3.4); MEAN CELL VOLUME 93.7 fL (80-100); MEAN CORPUSCULAR HEMOGLOBIN 31.7 pg (25-34); MEAN CORPUSCULAR HGB CONC 33.8 g/dl (32-36); MEAN PLATELET VOLUME 10.7 fL (7.4-10.4); MONO % 7.5 %; NEUT % 60.1 %; PLATELET COUNT 228 K/uL (130-400); RED BLOOD COUNT 4.58 M/uL (4.7-6.1); WHITE BLOOD COUNT 9.42 K/uL (4.8-10.8)
[2016-10-18] MEDS ORDERED: INSULIN GLARGINE SOLOSTAR 100 UNITS/ML 3 ML PEN SC SCH (21:00)
[2016-10-18 21:13] VITALS: BP 144/73; PULSE 78
[2016-10-18 21:13] LABS: CALCIUM 9.7 mg/dl (8.5-10.1); POTASSIUM 4.5 mmol/L (3.5-5.1)
[2016-10-18] MEDS: LOVASTATIN 20 MG TAB PO SCH (21:16)
[2016-10-18] MEDS: CHOLECALCIFEROL 1000 INTER.UNIT TAB PO SCH (21:17)
[2016-10-18] MEDS: TAMSULOSIN HCL 0.4 MG CAP PO SCH (21:17)
[2016-10-18 23:45] VITALS: BP 139/70; PULSE 91; TEMP 36.8; O2SAT 92
[2016-10-19] MEDS: ACETAMINOPHEN 325 MG TAB PO PRN (00:23)
[2016-10-19] MEDS: HEPARIN SOD 5000 UNIT/0.5 ML CARP SQ SCH ×3 (00:28→15:57)
[2016-10-19] MEDS: OXYCODONE HCL IR 5 MG TAB (IMMEDIATE RELEASE) PO PRN ×4 (02:36→15:55)
[2016-10-19 07:11] VITALS: BP 136/72; PULSE 76; TEMP 36.4; O2SAT 94
[2016-10-19] MEDS: ASPIRIN 81 MG ECTAB PO SCH (08:43)
[2016-10-19] MEDS: FLUTICASONE/SALMETEROL 250/50 (ADVAIR) 14 PUFF/1 INHALER INH SCH (08:43)
[2016-10-19] MEDS: CARVEDILOL 12.5 MG TAB PO SCH (08:43)
[2016-10-19] MEDS: GABAPENTIN 300 MG CAP PO SCH ×2 (08:43→13:24)
[2016-10-19] MEDS: VITAMIN B COMPLEX TAB PO SCH (08:44)
[2016-10-19] MEDS: DOCUSATE SODIUM/SENNA 50/8.6MG TAB PO SCH (08:44)
[2016-10-19] MEDS: MAGNESIUM OXIDE 400 MG TAB PO SCH (08:44)
[2016-10-19] MEDS: PANTOprazole SOD 40 MG TAB PO SCH (08:44)
[2016-10-19] MEDS: MULTIVITAMIN TAB PO SCH (08:45)
[2016-10-19] MEDS: ASCORBIC ACID 500 MG TAB PO SCH (08:46)
[2016-10-19] MEDS: INSULIN ASPART 100 UNITS/ML 3 ML PEN SC SCH ×2 (08:54→13:24)
[2016-10-19] MEDS: NIASPAN 500 MG TABCR PO SCH (08:58)
[2016-10-19] MEDS ORDERED: INSULIN GLARGINE SOLOSTAR 100 UNITS/ML 3 ML PEN SC SCH (09:00)
--- NOTE | 2016-10-19 12:25 | Progress Note ---
Medicine Progress Note Date & Time of Visit: Oct 19, 2016 at 12:14. Subjective seen laying in bed, comfortable pain well controlled, no leg weakness no dyspnea, chest pain,dizziness, palpitations denies other symptoms states he is ready and would like to be discharged today Objective Last 8 Hrs Date Time Temp Pulse Resp B/P Pulse Ox O2 Delivery O2 Flow Rate FiO2 10/19/16 07:11 36.4 76 19 136/72 94 Room Air Physical Exam: General- oriented x 3, not in distress, speaks in sentences with no effort Lungs- clear breath sounds bilaterally, no rales/wheeze Heart- normal rate, regular rhythm; no murmurs Abdomen- normal bowel sounds, soft, nontender Extremities- right knee: essentially normal left knee:mild knee swelling, no tenderness, lower leg essentially normal Neuro- alert, oriented x 3; no gross focal deficits Skin- warm & dry Laboratory Results: Last 24 Hours Test 10/18/16 16:57 10/18/16 20:10 10/19/16 11:24 Bedside Glucose 172 mg/dl 254 mg/dl White Blood Count 9.42 K/uL Red Blood Count 4.58 M/uL Hemoglobin 14.5 g/dL Hematocrit 42.9 % Mean Corpuscular Volume 93.7 fL Mean Corpuscular Hemoglobin 31.7 pg Mean Corpuscular Hemoglobin Concent 33.8 g/dl Platelet Count 228 K/uL Mean Platelet Volume 10.7 fL Neutrophils (%) (Auto) 60.1 % Lymphocytes (%) (Auto) 29.5 % Monocytes (%) (Auto) 7.5 % Eosinophils (%) (Auto) 1.7 % Basophils (%) (Auto) 0.6 % Neutrophils # (Auto) 5.65 K/uL Lymphocytes # (Auto) 2.78 K/uL Monocytes # (Auto) 0.71 K/uL Eosinophils # (Auto) 0.16 K/uL Basophils # (Auto) 0.06 K/uL RDW Standard Deviation 49.8 fL RDW Coefficient of Variation 14.8 % Immature Granulocyte % (Auto) 0.6 % Immature Granulocyte # (Auto) 0.06 K/uL Sodium Level 137 mmol/L Potassium Level 4.5 mmol/L Chloride Level 97 mmol/L Carbon Dioxide Level 26 mmol/L Anion Gap 14.0 mmol/L Blood Urea Nitrogen 21 mg/dl Creatinine 1.00 mg/dl Est Creatinine Clear Calc Drug Dose 81.7 ml/min Estimated GFR () 88.6 Estimated GFR (Non- 76.5 BUN/Creatinine Ratio 21.0 Random Glucose 231 mg/dl Calcium Level 9.7 mg/dl Assessment & Plan 71 year old male with history of Charcot Fidelia Tooth Disease, CAD, A fib, DM, COPD, PVD presenting after a fall. Left, Distal Femoral Fracture, Non displaced, Hairline Moderate Joint Effusion s/p Mechanical fall - CT of the knee showing: Left knee effusion, Left Medial Femoral Condylar cortical fracture -- xrays of lower leg and ankle to r/o fracture: no fractures noted - evaluated by Ortho: BRYAN Burleson/ Dr. Potts no surgical intervention recommended at this time, knee immobilizer placed recommendations: Plan for immobilizer for LLE Partial Weight Bearing with ambulation. If a proper size immobilizer can't be fitted, we may have to have [place] Elizabeth from orthotics to make a hinged knee brace. continue pain management, PT/OT at [facility] ff up with [facility] BRYAN Burleson/Dr. Potts this week Constipation continue Senokot S and Milk of Mg PRN PRN Lactulose Diabetes mellitus Type II: poorly controlled - A1c 9.4 - Pharmacy Glycemic control consult on Lantus and ISS, Pharmacy managed Insulin - BSGs elevated continue usual Metformin and Glimepiride monitor BSGs AC and HS, use Insulin Sliding Scale as needed History of CAD stable continue Aspirin, Carvedilol, Lisinopril/HCTZ monitor BP closely Paroxysmal atrial fibrillation - on Digoxin, Carvedilol, aspirin - but no anticoagulation - stable COPD: chronic, moderate -not in acute exacerbation -continue with his home inhalers Lqgbolu-Qyedc-Xtjcb 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 and uses specialized shoes with splints on both the legs however unable to use on the left leg due to knee immobilizer Chronic kidney disease Stage I/II: stable Hypertriglyceridemia: -labs show triglycerides over 500 increase Lovastatin Dispo: dc to [facility] follow up with [facility] BRYAN Burleson/ Dr. Potts this week follow up with Primary Care Physician in 1 week Current Inpatient Medications: Current Inpatient Medications Medications (Trade) Dose Ordered Sig/Katherine Route Start Time Stop Time Status Last Admin Dose Admin Ascorbic Acid (Vitamin C Tab) 500 mg DAILY PO 10/10/16 09:00 11/09/16 08:59 10/19/16 08:46 500 MG Aspirin (Ecotrin Tab) 81 mg DAILY PO 10/10/16 09:00 11/09/16 08:59 10/19/16 08:43 81 MG Carvedilol (Coreg Tab) 12.5 mg BID PO 10/10/16 09:00 11/09/16 08:59 10/19/16 08:43 12.5 MG Digoxin (Lanoxin Tab) 0.125 mg DAILY@1600 PO 10/10/16 16:00 11/09/16 15:59 10/18/16 16:01 0.125 MG Salmeterol Xinafoate/ Fluticasone (Advair Diskus 250/50 Inh) 1 puff BID INH 10/10/16 09:00 11/09/16 08:59 10/19/16 08:43 1 PUFF Gabapentin (Neurontin Cap) 300 mg TID PO 10/10/16 09:00 11/09/16 08:59 10/19/16 08:43 300 MG Magnesium Oxide (Mag-Ox Tab) 400 mg DAILY PO 10/10/16 09:00 11/09/16 08:59 10/19/16 08:44 400 MG Multivitamins (Multivitamin Tab) 1 tab DAILY PO 10/10/16 09:00 11/09/16 08:59 10/19/16 08:45 1 TAB Niacin (Niaspan Extended Rel Tab) 1,000 mg AMHS PO 10/10/16 09:00 11/09/16 08:59 10/19/16 08:58 1,000 MG Tamsulosin HCl (Flomax Cap) 0.4 mg HS PO 10/10/16 21:00 11/09/16 20:59 10/18/16 21:17 0.4 MG Vitamin B Complex (Vitamin B Complex) 1 tab DAILY PO 10/10/16 09:00 11/09/16 08:59 10/19/16 08:44 1 TAB Cholecalciferol (Vitamin D Tab) 5,000 inter.unit QPM PO 10/10/16 21:00 11/09/16 20:59 10/18/16 21:17 5,000 INTER.UNIT Pantoprazole Sodium (Protonix Tab) 40 mg DAILY PO 10/10/16 09:00 11/09/16 08:59 10/19/16 08:44 40 MG Heparin Sodium (Porcine) (Heparin Sq 5000 Unit/0.5ml) 5,000 unit Q8H SQ 10/10/16 08:00 11/09/16 07:59 10/19/16 08:55 5,000 UNIT Ondansetron HCl (Zofran Inj) 4 mg Q6H PRN IV 10/10/16 02:30 11/09/16 02:29 Albuterol Sulfate (Ventolin 0.083% 2.5MG/3ML Neb) 2.5 mg Q6R PRN INH 10/10/16 02:45 11/09/16 02:44 Miscellaneous (Iv Fluids Completed) 1 ea PRN PRN N/A 10/10/16 02:45 10/10/17 02:44 Insulin Aspart (novoLOG ASPART) SLIDING SCALE G... ACHS SC 10/10/16 07:00 11/09/16 06:59 10/19/16 08:54 9 UNITS Glucose (Glucose 40% Gel) 15-30 GRAMS 15 GRAMS... UD PRN PO 10/10/16 04:15 11/09/16 04:14 Glucose (Glucose Chew Tab) 4-8 Tablets 4 Tabl... UD PRN PO 10/10/16 04:15 11/09/16 04:14 Dextrose (Dextrose 50% 50ML Syringe) 25-50ML OF 50% DW IV FOR... UD PRN IV 10/10/16 04:15 11/09/16 04:14 Glucagon (Glucagon Inj) 1 mg UD PRN SQ 10/10/16 04:15 11/09/16 04:14 Oxycodone HCl (Roxicodone Immediate Rel Tab) 10 mg Q4 PRN PO 10/11/16 18:00 10/25/16 17:59 10/19/16 11:08 10 MG Acetaminophen (Tylenol Tab) 650 mg Q6 PRN PO 10/11/16 17:00 11/10/16 16:59 10/19/16 00:23 650 MG Miscellaneous Information (Consult Glycemic Management Pharmacy) 1 ea UD PRN N/A 10/12/16 15:23 2/16/17 15:22 Senna/Docusate Sodium (Senokot S Tab) 1 tab QAM PO 10/13/16 09:00 11/12/16 08:59 10/19/16 08:44 1 TAB Magnesium Hydroxide (Milk Of Magnesia Susp) 30 ml Q6H PRN PO 10/12/16 15:30 11/11/16 15:29 10/14/16 18:57 30 ML Bisacodyl (Dulcolax Supp) 10 mg DAILY PRN [place] 10/12/16 15:30 11/11/16 15:29 Lovastatin (Mevacor Tab) 20 mg HS PO 10/13/16 21:00 11/12/16 20:59 10/18/16 21:16 20 MG Lactulose (Chronulac Syrup) 30 gm TID PRN PO 10/14/16 15:45 11/13/16 15:44 10/17/16 18:33 30 GM Insulin Glargine (Lantus Solostar Pen) 11 UNITS FOR BSG < 110 MG... BID SC 10/19/16 09:00 11/18/16 08:59 10/19/16 08:55 22 UNIT
[2016-10-19] MEDS ORDERED: MOMLX PO (12:56)
[2016-10-19] MEDS ORDERED: RXC5 PO (12:56)
[2016-10-19] MEDS ORDERED: SENN8.6T7 PO (12:56)
[2016-10-19] MEDS ORDERED: LVNIS80 SC ×2 (12:56→13:07)
[2016-10-19] MEDS ORDERED: MVC20 PO (12:56)
[2016-10-19] MEDS ORDERED: NVLGIPEN SC (12:56)
--- NOTE | 2016-10-19 13:04 | Discharge Instructions ---
Discharge Instructions Admission Reason for Admission: Diabetes 1.5, Managed As Type 2; Injury-Left Knee Discharge Discharge Diagnosis / Problem: LEFT DISTAL FEMORAL FRACTURE Discharge Goals Goal(s): Diagnostic testing, Therapeutic intervention Activity Recommendations Activity Level: Assistance Required Therapies: Physical Therapy, Occupational Therapy Weightbearing Status: Left partial FALL PRECAUTIONS . Additional Information Patient informed of condition: Yes Advance Directives: No (UNKNOWN) DNR: No (PATIENT IS FULL CODE) Level of Care: Skilled Communicable Disease: No Prognosis: Improving [place] Catheter: No Instructions / Follow-Up Instructions / Follow-Up FOLLOW UP WITH [facility] BRYAN JUAREZ/DR. ROLAND THIS WEEK. FOLLOW UP WITH PRIMARY CARE PHYSICIAN IN 1 WEEK. MONITOR BLOOD GLUCOSE WITH MEALS AND AT BEDTIME. INSULIN SLIDING SCALE NEEDED. MONITOR BLOOD PRESSURE AT LEAST TWICE DAILY. FALL PRECAUTIONS. PLEASE REFER TO ACCOMPANYING DISCHARGE SUMMARY FOR FURTHER DETAILS. Current Hospital Diet Patient's current hospital diet: AHA Diet (Heart Healthy), Diabetes Type 2 Diet Discharge Diet Recommended Diet: AHA Diet (Heart Healthy), Low Sodium Diet (2gm Na) Pending Studies Studies pending at discharge: yes List of pending studies: FOLLOW UP WITH ORTHO THIS WEEK Physician Orders On Transfer Special Precautions: FOLLOW UP WITH [facility] BRYAN JUAREZ/DR. ROLAND THIS WEEK. FOLLOW UP WITH PRIMARY CARE PHYSICIAN IN 1 WEEK. MONITOR BLOOD GLUCOSE WITH MEALS AND AT BEDTIME. INSULIN SLIDING SCALE NEEDED. MONITOR BLOOD PRESSURE AT LEAST TWICE DAILY. FALL PRECAUTIONS. PLEASE REFER TO ACCOMPANYING DISCHARGE SUMMARY FOR FURTHER DETAILS. Laboratory Results Hemoglobin A1c Test 10/11/16 05:50 Range/Units Estimated Average Glucose 223 mg/dl Hemoglobin A1c 9.4 H 4.5-5.6 % Lipid Panel Test 10/11/16 05:50 Range/Units Triglycerides Level 521 H 0-150 mg/dl Cholesterol Level 157 0-200 mg/dl HDL Cholesterol 33 mg/dl Cholesterol/HDL Ratio 4.8 LDL Cholesterol, Calculated mg/dl Medical Emergencies . Who to Call and When: Medical Emergencies: If at any time you feel your situation is an emergency, please call 911 immediately. . Non-Emergent Contact Non-Emergency issues call your: Primary Care Provider . 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 "Provider Documentation" section prepared by Sunday Abbott. Core Measure Problem Core Measures: None [place] Drug Monitoring Program Search Results: patient reviewed within database
--- NOTE | 2016-10-19 13:08 | Discharge Summary ---
Discharge Summary Admission Date: Oct 12, 2016 at 15:48 Discharge Date: Oct 19, 2016 Principal Diagnosis: Left, Distal Femoral Fracture, Non displaced, Hairline Moderate Joint Effusion s/p Mechanical fall Secondary Diagnoses/Problems: PLEASE REFER TO HOSPITAL COURSE BELOW. Consultations: ORTHO- PA TUCKER VELÁZQUEZ/DR. POTTS Pending Studies/Follow-Up: FOLLOW UP WITH [facility] BRYAN JUAREZ/DR. POTTS THIS WEEK. FOLLOW UP WITH PRIMARY CARE PHYSICIAN IN 1 WEEK. MONITOR BLOOD GLUCOSE WITH MEALS AND AT BEDTIME. INSULIN SLIDING SCALE NEEDED. MONITOR BLOOD PRESSURE AT LEAST TWICE DAILY. FALL PRECAUTIONS. PLEASE REFER TO ACCOMPANYING DISCHARGE SUMMARY FOR FURTHER DETAILS. Medication Reconciliation New Medications: Insulin Aspart (Novolog Flexpen) 100 Units/Ml Inj 0 UNITS SC ACHS for 15 Days Correctional Insulin with NOVOLOG per scale ACHS or Q6hrs while NPO Goal Range: Low 110 mg/dL - High 140 mg/dL Correction Factor: 15 mg/dL/unit Lovastatin (Lovastatin) 20 Mg Tab 20 MG PO HS for 30 Days, TAB Magnesium Hydroxide (Milk of Magnesia) 30 Ml Susp 30 ML PO Q6H PRN for constipation for 10 Days Oxycodone HCl (Oxycodone HCl) 5 Mg Tab 10 MG PO Q4 PRN for Pain, #10 TAB Sennosides-Docusate Sodium (Senokot S) 1 Tab Tab 1 TAB PO QAM for 10 Days, #10 TAB Continued Medications: Ascorbic Acid (Ascorbic Acid) 500 Mg Tab 500 MG PO DAILY, TAB Aspirin Enteric Coated (Ecotrin Or Generic) 81 Mg Tab 81 MG PO DAILY, 0 Refills B Complex W/ C (Super B Complex/C) 1 Cap Cap 1 TAB PO DAILY Carvedilol (Coreg) 12.5 Mg Tab 12.5 MG PO BID, TAB Cholecalciferol (Vitamin D) 5,000 Unit Tab 5000 UNITS PO QPM Digoxin (Lanoxin) 0.125 Mg Tab 0.125 MG PO DAILY, TAB Fluticasone Prop/Salmeterol (Advair Diskus 250/50 60 Dose) 1 Ea Aerp 1 PUFF INH BID, INHALER Gabapentin (Neurontin) 300 Mg Cap 300 MG PO TID, CAP Glimepiride (Glimepiride) 2 Mg Tab 2 MG PO DAILY Lisinopril/Hctz (Zestoretic 20MG/25MG) Tab 1 TAB PO DAILY, TAB Magnesium Oxide (Mag-Ox) 400 Mg Tab Unknown Dose PO DAILY, TAB Metformin Hcl (Glucophage) 1,000 Mg Tab 1000 MG PO BID, TAB Multivitamin (Multivitamin) Tab 1 TABLET PO DAILY, 0 Refills Niacin Ext Rel (Niaspan Ext Rel) 1,000 Mg Tabcr 1000 MG PO AMHS Omeprazole (Prilosec) 40 Mg Capcr 40 MG PO DAILY, CAP Tamsulosin Hcl (Flomax) 0.4 Mg Cap 0.4 MG PO HS, CAP Discontinued Medications: Lovastatin (Mevacor) 10 Mg Tab 10 MG PO HS, TAB Oxycodone Hcl (Oxycodone Hcl) 10 Mg Tab 10 MG PO Q6 PRN for Pain Admission Information HPI (per Admitting provider): DATE OF ADMISSION: 10/09/2016 PRIMARY CARE PHYSICIAN: Dr. Perry. CHIEF COMPLAINT: Status post fall in ice with the injury to the left knee. HISTORY OF PRESENT COMPLAINT: He is a 71-year-old male with significant past medical history including Vtcbvvt-Ldpoh-Jlbvm disease with bilateral drop feet, hypertensive heart disease, type 2 diabetes, atrial fibrillation, COPD, chronic kidney disease, peripheral vascular disease, tobacco use/disorder, apparently was outside and walking with a walker and he slipped on ice and fell and injured the left knee with swelling of the knee joint and painful knee joint. He could not get up and ambulance was called in and he was brought into the Emergency Room for further evaluation. At ER x-ray did show swelling in the patellar area, but no fracture, but he was unable to move around. From that point, he was advised for admission. PAST MEDICAL HISTORY: Significant for Yvrnvjc-Shaad-Invje disease with bilateral feet drop, neuropathy in other disease, hypertensive heart disease, type 2 diabetes, atrial fibrillation, COPD, chronic kidney disease, peripheral vascular disease, tobacco use/disorder, GERD, hypertriglyceridemia, vitamin D deficiency, hyperlipidemia and benign prostatic hypertrophy. PAST SURGICAL HISTORY: Laparoscopic cholecystectomy, partial amputation of toes 10 years before, neck C-spine fusion by Dr. Conde in 2012. FAMILY HISTORY: Mother had CAD along with COPD. SOCIAL HISTORY: He is single. He has 4 children. He lives alone. He gets some home health. He smokes about half a pack to 1 pack per day. He does not drink and he has been mobile with a walker and he uses a walking boot in both the legs. Physical Exam (per Admitting): GENERAL: On examination in the Emergency Room, he was having some pain in the left knee, especially with any movement. HEENT: Unremarkable. VITAL SIGNS: Temperature was 36.6, pulse was 79, blood pressure 132/77, saturation 95% on room air. HEENT: Unremarkable. NECK: Supple. No JVD, no bruit. CHEST: Clear to auscultation bilaterally. HEART: S1, S2 regular. ABDOMEN: Soft, benign, nontender, no organomegaly. Bowel sounds present. EXTREMITIES: Bilaterally edema 1+, chronic skin changes and deformity of both the feet. Examination of the left knee showed swelling of the left knee, especially anteriorly, there may be fluid in the knee joint and some minor abrasion involving the anterior aspect of the knee. CENTRAL NERVOUS SYSTEM: Alert, awake, oriented x3. Hospital Course 71 year old male with history of Charcot Fidelia Tooth Disease, CAD, A fib, DM, COPD, PVD presenting after a fall. Left, Distal Femoral Fracture, Non displaced, Hairline Moderate Joint Effusion s/p Mechanical fall - CT of the knee showing: Left knee effusion, Left Medial Femoral Condylar cortical fracture -- xrays of lower leg and ankle to r/o fracture: no fractures noted - evaluated by Ortho: BRYAN Velázquez/ Dr. Potts no surgical intervention recommended at this time, knee immobilizer placed recommendations: Plan for immobilizer for LLE Partial Weight Bearing with ambulation. If a proper size immobilizer can't be fitted, we may have to have [place] Elizabeth from orthotics to make a hinged knee brace. continue pain management, PT/OT at [facility] ff up with [facility] BRYAN Velázquez/Dr. Potts this week Constipation continue Senokot S and Milk of Mg PRN PRN Lactulose Diabetes mellitus Type II: poorly controlled - A1c 9.4 - Pharmacy Glycemic control consult on Lantus and ISS, Pharmacy managed Insulin - BSGs elevated continue usual Metformin and Glimepiride monitor BSGs AC and HS, use Insulin Sliding Scale as needed History of CAD stable continue Aspirin, Carvedilol, Lisinopril/HCTZ monitor BP closely Paroxysmal atrial fibrillation - on Digoxin, Carvedilol, aspirin - but no anticoagulation - stable COPD: chronic, moderate -not in acute exacerbation -continue with his home inhalers Hjwvrlk-Bijoa-Tlbsl 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 and uses specialized shoes with splints on both the legs however unable to use on the left leg due to knee immobilizer Chronic kidney disease Stage I/II: stable Hypertriglyceridemia: -labs show triglycerides over 500 increase Lovastatin Dispo: dc to [facility] follow up with [facility] BRYAN Velázquez/ Dr. Potts this week follow up with Primary Care Physician in 1 week Total time spent on discharge = 55 MINUTES This includes examination of the patient, discharge planning, medication reconciliation, and communication with other providers. Discharge Instructions Discharge Instructions Admission Reason for Admission: Diabetes 1.5, Managed As Type 2; Injury-Left Knee Discharge Discharge Diagnosis / Problem: LEFT DISTAL FEMORAL FRACTURE Discharge Goals Goal(s): Diagnostic testing, Therapeutic intervention Activity Recommendations Activity Level: Assistance Required Therapies: Physical Therapy, Occupational Therapy Weightbearing Status: Left partial FALL PRECAUTIONS . Additional Information Patient informed of condition: Yes Advance Directives: No (UNKNOWN) DNR: No (PATIENT IS FULL CODE) Level of Care: Skilled Communicable Disease: No Prognosis: Improving [place] Catheter: No Instructions / Follow-Up Instructions / Follow-Up FOLLOW UP WITH [facility] BRYAN JUAREZ/DR. POTTS THIS WEEK. FOLLOW UP WITH PRIMARY CARE PHYSICIAN IN 1 WEEK. MONITOR BLOOD GLUCOSE WITH MEALS AND AT BEDTIME. INSULIN SLIDING SCALE NEEDED. MONITOR BLOOD PRESSURE AT LEAST TWICE DAILY. FALL PRECAUTIONS. PLEASE REFER TO ACCOMPANYING DISCHARGE SUMMARY FOR FURTHER DETAILS. Current Hospital Diet Patient's current hospital diet: AHA Diet (Heart Healthy), Diabetes Type 2 Diet Discharge Diet Recommended Diet: AHA Diet (Heart Healthy), Low Sodium Diet (2gm Na) Pending Studies Studies pending at discharge: yes List of pending studies: FOLLOW UP WITH ORTHO THIS WEEK Physician Orders On Transfer Special Precautions: FOLLOW UP WITH [facility] BRYAN JUAREZ/DR. POTTS THIS WEEK. FOLLOW UP WITH PRIMARY CARE PHYSICIAN IN 1 WEEK. MONITOR BLOOD GLUCOSE WITH MEALS AND AT BEDTIME. INSULIN SLIDING SCALE NEEDED. MONITOR BLOOD PRESSURE AT LEAST TWICE DAILY. FALL PRECAUTIONS. PLEASE REFER TO ACCOMPANYING DISCHARGE SUMMARY FOR FURTHER DETAILS. Laboratory Results Hemoglobin A1c Test 10/11/16 05:50 Range/Units Estimated Average Glucose 223 mg/dl Hemoglobin A1c 9.4 H 4.5-5.6 % Lipid Panel Test 10/11/16 05:50 Range/Units Triglycerides Level 521 H 0-150 mg/dl Cholesterol Level 157 0-200 mg/dl HDL Cholesterol 33 mg/dl Cholesterol/HDL Ratio 4.8 LDL Cholesterol, Calculated mg/dl Medical Emergencies . Who to Call and When: Medical Emergencies: If at any time you feel your situation is an emergency, please call 911 immediately. . Non-Emergent Contact Non-Emergency issues call your: Primary Care Provider . Past History Medical & Surgical History: (1) Emphysema (2) COPD (chronic obstructive pulmonary disease) (3) Cholecystitis (4) Hyperlipidemia (5) Diabetic neuropathy (6) Heart failure (7) Tobacco user (8) Gout (9) Atrial fibrillation (10) Benign hypertension (11) CMT (Ratcxzn-Lgdki-Itvgw disease) (12) Dtbjrlh-Zxuam-Bxanl disease (13) Spinal stenosis in cervical region (14) Diabetes mellitus type 2 (15) Gastroesophageal reflux disease (16) Hypertensive heart disease (17) Hx of tonsillectomy (18) S/P cervical spinal fusion . "Provider Documentation" section prepared by Sunday Abbott. Core Measure Problem Core Measures: None [place] Drug Monitoring Program Search Results: patient reviewed within database
[2016-10-19 16:01] VITALS: BP 152/79; PULSE 82; TEMP 36.6; O2SAT 90
[2016-10-19] MEDS: DIGOXIN 0.125 MG TAB PO SCH (16:05)
[2016-10-29] MEDS ORDERED: TAMS0.4C38 PO (01:50)
[2016-10-29] MEDS ORDERED: ASPI81TA21 PO (10:24)
[2016-10-29] MEDS ORDERED: MAGN400T6 PO (15:31)
[2016-10-29] MEDS ORDERED: METF1000 PO (17:24)
[2016-10-29] MEDS ORDERED: ADVIN25/60 INH (17:25)
[2016-10-29] MEDS ORDERED: CARV12.52 PO (18:18)
[2016-10-29] MEDS ORDERED: GLIM2TAB2 PO (18:18)
[2016-10-29] MEDS ORDERED: GABA-113 PO (18:18)
[2016-10-31] MEDS ORDERED: CARV6.25 PO (11:25)
[2017-01-07] MEDS ORDERED: ZOLP5TAB6 PO (14:11)
[2017-01-07] MEDS ORDERED: CLB/200 PO (14:11)
[2017-01-07] MEDS ORDERED: CARV6.25 PO (14:11)
[2017-01-07] MEDS ORDERED: GLIM4TAB2 PO (14:11)
[2017-01-07] MEDS ORDERED: LISI-788 PO (14:11)
== END 2016-10-19 17:00 | DRG 534 ==
LOC: ENRESERVDT → ENRESERVTM → EDBD 22:50 → C.EDC 22:51 → C.MSW 10-10 02:34 → OBSVTOIN 10-12 15:48
PROVIDERS: ADMIT Internal Medicine; ATTEND Hospitalist
DX: S72.415A Nondisplaced unspecified condyle fracture of lower end of left femur, initial encounter for closed fracture (principal); I13.0 Hypertensive heart and chronic kidney disease with heart failure and stage 1 through stage 4 chronic kidney disease, or unspecified chronic kidney disease; S86.812A Strain of other muscle(s) and tendon(s) at lower leg level, left leg, initial encounter; W00.9XXA Unspecified fall due to ice and snow, initial encounter; E78.00 Pure hypercholesterolemia, unspecified; K21.9 Gastro-esophageal reflux disease without esophagitis; N40.0 Benign prostatic hyperplasia without lower urinary tract symptoms; I25.10 Atherosclerotic heart disease of native coronary artery without angina pectoris; J44.9 Chronic obstructive pulmonary disease, unspecified; I48.0 Paroxysmal atrial fibrillation; F17.210 Nicotine dependence, cigarettes, uncomplicated; E11.65 Type 2 diabetes mellitus with hyperglycemia; E11.22 Type 2 diabetes mellitus with diabetic chronic kidney disease; E11.40 Type 2 diabetes mellitus with diabetic neuropathy, unspecified; E78.1 Pure hyperglyceridemia; M25.462 Effusion, left knee; N18.2 Chronic kidney disease, stage 2 (mild); I50.9 Heart failure, unspecified; G60.0 Hereditary motor and sensory neuropathy; M21.372 Foot drop, left foot; M21.371 Foot drop, right foot; I73.9 Peripheral vascular disease, unspecified; M10.9 Gout, unspecified; E11.51 Type 2 diabetes mellitus with diabetic peripheral angiopathy without gangrene; S80.02XA Contusion of left knee, initial encounter; M17.12 Unilateral primary osteoarthritis, left knee; K59.00 Constipation, unspecified; E78.5 Hyperlipidemia, unspecified; E55.9 Vitamin D deficiency, unspecified; Z98.1 Arthrodesis status; Z89.429 Acquired absence of other toe(s), unspecified side; Z79.82 Long term (current) use of aspirin; Z79.51 Long term (current) use of inhaled steroids; Z79.891 Long term (current) use of opiate analgesic; Z79.84 Long term (current) use of oral hypoglycemic drugs; Z79.899 Other long term (current) drug therapy

== ENCOUNTER 2016-10-29 19:31 | Inpatient (IN) | payer OTHER ==
[~2016-10-29] VITALS: Ht 167.6 cm; Wt 107.7 kg
[~2016-10-29 19:31] MED LIST changes: +ADVIN25/60 INH; +ASPI81TA21 PO; +CARV12.52 PO; -FRS/40 PO; +GABA-113 PO; +GLIM2TAB2 PO; -HYDR-4079 PO; -LOVA10TA3 PO; +MAGN400T6 PO; +METF1000 PO; +MOMLX PO; +MVC20 PO; +NVLGIPEN SC; -POTA20TA16 PO; +RXC5 PO; +SENN8.6T7 PO; +TAMS0.4C38 PO
[2016-10-29] MEDS ORDERED: NSP500 PO (20:10)
[2016-10-29 20:24] LABS: BASO % 0.6 %; BASO ABS # 0.07 K/uL (0-0.2); COMPLETE YES; EOS % 2.4 %; HEMATOCRIT 47.6 % (42-52); IG% 0.3 %; LYMPH % 16.1 %; LYMPH ABS # 1.94 K/uL (1.2-3.4); MEAN CELL VOLUME 93.7 fL (80-100); MEAN CORPUSCULAR HEMOGLOBIN 31.9 pg (25-34); MEAN PLATELET VOLUME 10.9 fL (7.4-10.4); NEUT % 74.6 %; PLATELET COUNT 280 K/uL (130-400); RED BLOOD COUNT 5.08 M/uL (4.7-6.1); WHITE BLOOD COUNT 12.08 K/uL (4.8-10.8)
[2016-10-29] MEDS ORDERED: B COTAB PO (20:29)
[2016-10-29] MEDS ORDERED: PROAIR HFA INH (20:29)
[2016-10-29] MEDS ORDERED: ACET325T96 PO (20:29)
[2016-10-29] MEDS ORDERED: OXYC1TAB3 PO ×3 (20:29)
[2016-10-29] MEDS ORDERED: SENN-83 PO (20:29)
[2016-10-29] MEDS ORDERED: LISI-729 PO (20:29)
[2016-10-29] MEDS ORDERED: OMEP40CA41 PO (20:29)
[2016-10-29] MEDS ORDERED: LSN/10125 PO (20:29)
[2016-10-29] MEDS ORDERED: LNX125 PO (20:37)
[2016-10-29] MEDS ORDERED: LOVA20TA4 PO (20:37)
[2016-10-29] MEDS ORDERED: CLB/200 PO (20:37)
[2016-10-29] MEDS ORDERED: MULT-513 PO (20:37)
[2016-10-29] MEDS ORDERED: NVLG SQ (20:37)
[2016-10-29 20:44] LABS: BUN/CREATININE RATIO 15.1 (10-20); CALCIUM 9.7 mg/dl (8.5-10.1); CREATININE 2.4 mg/dl (0.60-1.40); POTASSIUM 4.6 mmol/L (3.5-5.1)
[2016-10-29] MEDS ORDERED: SODIUM CHLORIDE 0.9% 1000ML 1,000 ML IV ONE ×2 (20:45→23:45)
[2016-10-29] MEDS ORDERED: PANTOprazole INJ 80 MG in DEXTROSE 5% 100ML IV SCH (21:00)
[2016-10-29] MEDS ORDERED: BISA10SU13 PO (21:03)
[2016-10-29] MEDS ORDERED: ACET-1311 PO (21:03)
[2016-10-29] MEDS ORDERED: MOML PO (21:03)
[2016-10-29] MEDS ORDERED: PANTOprazole INJ 40 MG in DEXTROSE 5% 100ML IV SCH (21:15)
[2016-10-29 21:18] LABS: INR 1.1 (0.9-1.1); PARTIAL THROMBOPLASTIN RATIO 1.2
[2016-10-29] MEDS ORDERED: SODIUM CHLORIDE 0.9% 500ML 500 ML IV ONE (22:15)
--- NOTE | 2016-10-29 22:18 | EMERGENCY ROOM VISIT NOTE ---
ED Visit Note First contact with patient: 19:36 I have personally seen and evaluated the patient with the PA. I agree with the diagnosis and management decisions and have been personally involved in the case. Patient was given 750 mL of IV fluid in route by EMS. He remained hypotensive on arrival to the ER and was given an additional 250 mL. Patient's blood pressure remained low. His laboratory work reveals a creatinine that is 2.4, patient's baseline creatinine is normal at month. Patient was given an additional 500 mL bolus of normal saline solution. He seems to be doing well other than the hypertension. Given the patient's laboratory work, I suspect this is dehydration. Patient seems to have an acquired a viral illness with vomiting and diarrhea. He'll be evaluated by the hospitalist service for further management. Please see Jaret Bell PA-C's notes for further details of the history, physical and visit.
--- NOTE | 2016-10-29 22:21 | DIAGNOSTIC IMAGING REPORT ---
ABDOMEN 2VIEW W/PA CHEST RTN CLINICAL HISTORY: N/V/D pain COMPARISON STUDY: 11/18/2015 FINDINGS: The soft tissues, psoas shadows, renal outlines and intestinal gas pattern appear normal. There is no evidence for bowel obstruction. There is no evidence for free intraperitoneal air. No abnormal abdominal calcifications are seen. A frontal view of the chest was performed and is unremarkable. IMPRESSION: Normal study. Electronically signed by: Derik Nelson M.D. 10/29/2016 10:20 PM Dictated Date/Time: 10/29/2016 10:19 PM
[2016-10-29] MEDS ORDERED: METRONIDAZOLE / NSS 500 MG IV STA (22:47)
[2016-10-29] MEDS ORDERED: HYDROmorphone INJ 1 MG/ML SYR IV PRN (23:45)
[2016-10-29] MEDS ORDERED: ACETAMINOPHEN 325 MG TAB PO PRN (23:45)
[2016-10-29] MEDS ORDERED: GLUCOSE 10 TABS/TUBE PO PRN (23:45)
[2016-10-29] MEDS ORDERED: DEXTROSE 50% 50 ML SYR IV PRN (23:45)
[2016-10-29] MEDS ORDERED: LEVALBUTEROL/IPRATROPIUM NEB INH PRN (23:45)
[2016-10-29] MEDS ORDERED: PROMETHAZINE HCL INJ 12.5 MG in SODIUM CHLORIDE 0.9% 50ML 50 ML IV PRN (23:45)
[2016-10-29] MEDS ORDERED: GLUCAGON FOR INJ 1 MG VIAL SQ PRN (23:45)
[2016-10-29] MEDS ORDERED: OXYCODONE/ACETAMINOPHEN 5-325 TAB PO PRN (23:45)
[2016-10-29] MEDS ORDERED: GLUCOSE 40% GEL 15 GM TUBE PO PRN (23:45)
[2016-10-29] MEDS ORDERED: ONDANSETRON INJ 2 MG/ML 2 ML VIAL IV PRN (23:45)
[2016-10-30] VITALS (8 sets, daily range): BP systolic 89–111; BP diastolic 57–66; PULSE 84–88; TEMP 36.4–36.7; O2SAT 94–97; Ht 167.6 cm; Wt 107.7 kg
[2016-10-30] MEDS ORDERED: OXYCODONE/ACETAMINOPHEN 5-325 TAB PO ONE (01:15)
[2016-10-30] MEDS ORDERED: SODIUM CHLORIDE 0.9% 500ML 500 ML IV ONE (01:30)
[2016-10-30] MEDS ORDERED: LEVALBUTEROL 1.25MG/0.5ML NEB INH PRN (02:00)
[2016-10-30] MEDS: MAGNESIUM SULFATE 1GM / D5W 1 GM in PREMIXED IN D5W 100 ML IV SCH ×3 (02:00→03:00)
[2016-10-30] MEDS ORDERED: IPRATROPIUM BROMIDE NEB SOLN 0.02% 2.5 ML VIAL INH PRN (02:00)
--- NOTE | 2016-10-30 02:34 | EMERGENCY ROOM VISIT NOTE ---
ED Visit Note First contact with patient: 19:36 Chief Complaint: Diarrhea. History of Present Illness: Mr. Cherry is a 71-year-old white male who is brought into the ED via ambulance complaining of diarrhea. Historically patient was discharged from this institution on October 19 for a mechanical fall that resulted in a distal femur fracture. He was discharged to [facility] for rehabilitation. Daughter reports the patient's first 4-5 days he did not eat because he did not like the food. He presents via ambulance tonight and reports that yesterday he was noted to have a decrease in blood pressure by nursing personnel. Today shortly after breakfast he became nauseated and had one episode of vomiting approximately 12 hours ago and throughout the day he reports he's had 6-7 episodes of watery stools. Additionally he does report that nursing personnel did report he had a blood pressure of 70s systolic earlier today. During transport tonight to the ED EMS reports that he had a blood pressure in the 80s systolic and he was bolused with approximately 700 mL of normal saline. The patient's only complaint currently is diarrhea. He does report he had a transient episode of lightheadedness earlier today but that has subsequently resolved. He does report after having his episode after breakfast this morning he feared reoccurrence of vomiting and has not eaten for the rest of the day. He denies fevers, chills, sweats, skin eruptions, headache, dizziness, upper respiratory tract symptoms, cough, shortness of breath, chest pain, palpitations , abdominal pain, nausea, urinary symptoms, back pain, worsening leg pain. In reviewing his medical chart that was transferred with the patient it is been noted that at approximately 6:30 PM that today he had a blood pressure of 67/ 47. Laboratory tests were done today and it is noted that he had elevations of his BUN and creatinine to 34 and 1.9 respectively and his estimated GFR decreased from 60 on October 12 and today is 36.3. Review of Systems: As noted above in history of present illness. At least body systems were reviewed and found to be negative as noted above. Past Medical History: (1) Atrial fibrillation (2) Benign hypertension (3) Bmvyigp-Npbpm-Lpimj disease (4) Cholecystitis (5) CMT (Htrrhii-Yfsmo-Tddzi disease) (6) COPD (chronic obstructive pulmonary disease) (7) Diabetes mellitus type 2 (8) Emphysema (9) Heart failure (10) Hyperlipidemia (11) Knee pain (12) Spinal stenosis in cervical region (13) Tobacco user Surgical Problems: (1) Hx of tonsillectomy (2) S/P cervical spinal fusion Current Medications: Medications Dose Route/Sig Max Daily Dose Days Date Category Dose Instructions Milk Of Magnesia (Magnesium Hydroxide) 30 Ml Susp 30 Ml PO DAILY PRN 10/29/16 Reported Biscolax (Bisacodyl) 10 Mg Sup 10 Mg PO DAILY PRN 10/29/16 Reported Tylenol (Acetaminophen) 325 Mg Tab 650 Mg PO Q4 PRN 10/29/16 Reported Novolog (Insulin Aspart) 100 Units/Ml Inj 6 Units SQ TIDM 10/29/16 Reported HOLD IF EATS LESS THAN 25% OF MEAL Mevacor (Lovastatin) 20 Mg Tab 20 Mg PO HS 10/29/16 Reported Mvi With Minerals (Multivitamins/Minerals) Tab 1 Tab PO DAILY 10/29/16 Reported CeleBREX (Celecoxib) 200 Mg Cap 200 Mg PO BID 10/29/16 Reported Digoxin 0.125 Mg Tab 0.125 Mg PO QAM 10/29/16 Reported [Proair Hfa] 2 Puffs INH Q6 PRN 10/29/16 Reported Roxicodone Ir (Oxycodone HCl) 5 Mg Tab 5 Mg PO Q4H 10/29/16 Reported Roxicodone Ir (Oxycodone HCl) 5 Mg Tab 10 Mg PO Q4H PRN 10/29/16 Reported Senexon-S (Sennosides-Docusate Sodium) 1 Tab Tab 1 Tab PO QAM 10/29/16 Reported Roxicodone Ir (Oxycodone HCl) 5 Mg Tab 5 Mg PO TID 10/29/16 Reported Prinivil (Lisinopril) 5 Mg Tab 5 Mg PO DAILY 10/29/16 Reported Tylenol (Acetaminophen) 325 Mg Tab 650 Mg PO TID 10/29/16 Reported Prilosec (Omeprazole) 40 Mg Cap 40 Mg PO DAILY 10/29/16 Reported B-Complex +C (B Complex W/ C) 1 Tab Tab 1 Tab PO DAILY 10/29/16 Reported Flomax (Tamsulosin Hcl) 0.4 Mg Cap 0.4 Mg PO HS 10/10/16 Reported Vitamin D (Cholecalciferol) 5,000 Unit Tab 5,000 Units PO QPM 10/11/13 Reported Mag-Ox (Magnesium Oxide) 400 Mg Tab 400 Mg PO DAILY 10/11/13 Reported Coreg (Carvedilol) 12.5 Mg Tab 12.5 Mg PO BID 08/11/13 Reported Glimepiride 2 Mg Tab 2 Mg PO DAILY 08/11/13 Reported Neurontin (Gabapentin) 300 Mg Cap 300 Mg PO TID 08/11/13 Reported Advair Diskus 250/50 60 Dose (Fluticasone Prop/Salmeterol) 1 Ea Aerp 1 Puff INH BID 01/20/13 Reported Glucophage (Metformin Hcl) 1,000 Mg Tab 1,000 Mg PO BID 01/20/13 Reported Ascorbic Acid 500 Mg Tab 500 Mg PO DAILY 01/20/13 Reported Ecotrin Or Generic (Aspirin) 81 Mg Tab 81 Mg PO DAILY 01/14/12 Reported Niaspan Ext Rel (Niacin) 1,000 Mg Tabcr 1,000 Mg PO AMHS 06/09/09 Reported Allergies to Medications: Penicillin. Social History: Patient is not currently employed; he feels safe in his home environment; he denies tobacco use and admits to rare social alcohol use. Physical Examination: Vital Signs: Date Time Temp Pulse Resp B/P Pulse Ox O2 Delivery O2 Flow Rate FiO2 10/29/16 22:36 90 16 107/62 10/29/16 22:12 92 16 82/52 10/29/16 21:18 90 16 78/46 91 Room Air 10/29/16 20:22 88 16 83/61 90 Room Air 10/29/16 20:15 89 10/29/16 20:10 91 16 90/48 90 Room Air 10/29/16 20:05 87 16 86/53 91 10/29/16 20:01 86 16 82/55 91 Room Air 10/29/16 19:36 36.5 87 16 111/92 93 Room Air GENERAL: 71-year-old male in no acute distress, chronically ill-appearing, afebrile and hemodynamically stable. NEUROLOGICAL: Awake, alert and oriented to person, place and time. Answering questions appropriately and following commands. Good hand eye coordination. No focal motor sensory deficits. Cranial nerves II through XII grossly intact. SKIN: Warm, dry and pink. No soft tissue eruptions or trauma noted. HEENT: Atraumatic and normocephalic. PERRLA. Sclera white and conjunctiva pale. No drainage from naris. Oral cavity dry and pink. Pharynx is nonerythematous or edematous. Speech normal. No lymphadenopathy. Trachea midline. No jugular venous distention. BACK: No tenderness over the bony spine. No CVA tenderness. THORAX: Lungs sounds are clear to auscultation and equal bilaterally with symmetrical chest wall. No wheezing, rales or rhonchi. No crepitus, tenderness , subcutaneous air or deformities noted. HEART: Regular rate and rhythm. No gallops, rubs or murmurs are appreciated. ABDOMEN: Flat, soft and nontender. Decreased bowel sounds in all quadrants. No guarding, rigidity or organomegaly. RECTAL: External hemorrhoid noted at the 12 o'clock position with no active bleeding. Normal rectal tone. No palpable rectal masses. Stools are not melanotic but does test heme positive. EXTREMITIES: Moves all extremities well on command and with purpose. Contractures of the bilateral fingers were noted. Distal pulses and sensation intact. Lower extremity shows mild dependent edema but no calf tenderness or cords. There is chronic venous stasis changes in both feet. ED Course: Patient is assessed as noted above. Laboratory Testing: Test 10/29/16 19:30 10/29/16 20:32 10/29/16 20:49 10/29/16 22:20 Range/Units White Blood Count 12.08 4.8-10.8 K/uL Red Blood Count 5.08 4.7-6.1 M/uL Hemoglobin 16.2 14.0-18.0 g/dL Hematocrit 47.6 42-52 % Mean Corpuscular Volume 93.7 80-100 fL Mean Corpuscular Hemoglobin 31.9 25-34 pg Mean Corpuscular Hemoglobin Concent 34.0 32-36 g/dl Platelet Count 280 130-400 K/uL Mean Platelet Volume 10.9 7.4-10.4 fL Neutrophils (%) (Auto) 74.6 % Lymphocytes (%) (Auto) 16.1 % Monocytes (%) (Auto) 6.0 % Eosinophils (%) (Auto) 2.4 % Basophils (%) (Auto) 0.6 % Neutrophils # (Auto) 9.01 1.4-6.5 K/uL Lymphocytes # (Auto) 1.94 1.2-3.4 K/uL Monocytes # (Auto) 0.73 0.11-0.59 K/uL Eosinophils # (Auto) 0.29 0-0.5 K/uL Basophils # (Auto) 0.07 0-0.2 K/uL RDW Standard Deviation 49.2 36.4-46.3 fL RDW Coefficient of Variation 14.5 11.5-14.5 % Immature Granulocyte % (Auto) 0.3 % Immature Granulocyte # (Auto) 0.04 0.00-0.02 K/uL Sodium Level 137 136-145 mmol/L Potassium Level 4.6 3.5-5.1 mmol/L Chloride Level 101 98-107 mmol/L Carbon Dioxide Level 24 21-32 mmol/L Anion Gap 12.0 3-11 mmol/L Blood Urea Nitrogen 36 7-18 mg/dl Creatinine 2.40 0.60-1.40 mg/dl Est Creatinine Clear Calc Drug Dose 33.4 ml/min Estimated GFR () 30.7 Estimated GFR (Non- 26.5 BUN/Creatinine Ratio 15.1 10-20 Random Glucose 168 70-99 mg/dl Calcium Level 9.7 8.5-10.1 mg/dl Magnesium Level 1.1 1.8-2.4 mg/dl Total Bilirubin 0.7 0.2-1 mg/dl Direct Bilirubin 0.3 0-0.2 mg/dl Aspartate Amino Transf (AST/SGOT) 38 15-37 U/L Alanine Aminotransferase (ALT/SGPT) 198 12-78 U/L Alkaline Phosphatase 105 45-117 U/L Total Protein 8.3 6.4-8.2 gm/dl Albumin 3.5 3.4-5.0 gm/dl Digoxin Level 1.4 0.8-2.0 ng/ml Bedside Troponin I 0.040 0-0.045 ng/ml Prothrombin Time 12.0 9.0-12.0 SECONDS Prothromb Time International Ratio 1.1 0.9-1.1 Activated Partial Thromboplast Time 30.1 21.0-31.0 SECONDS Partial Thromboplastin Ratio 1.2 Bedside Lactic Acid Venous 1.46 0.90-1.70 mmol/L Shiga Toxin Test: Pending Stool Culture: Pending Acute Abdominal X-Ray Series: Was reviewed by myself and read by the radiologist and shows a normal PA chest with no signs of infiltrates, effusions or pneumothorax. Abdominal component shows a nonspecific bowel gas pattern without signs of bowel obstruction, no free abdominal air. Patient was hydrated with normal saline and received multiple fluid boluses because of his hypotension patient additionally received a 40 mg Protonix bolus and started on a Protonix drip. Patient was reassessed multiple times during his stay in the emergency department. Patient's case was reviewed with Dr. Blanc; she independently assessed the patient we agreed on diagnostic approach, treatment, disposition and plan. Patient's case was consulted with case management and Dr. Mckeon, [facility]ist; for medical observation/admission. Patient and daughter were educated about nima's findings. Clinical Impression: Hypotension. Acute renal failure. Heme positive stools; questionable GI bleed. Elevated liver enzymes; possible Tylenol induced for hepatitis. Decision-Making: Initially my differential diagnosis I considered viral diarrhea , GI bleed, perforated viscus, scheming bowel disease, C. difficile diarrhea, viral diarrhea, gastroenteritis and other causes. Disposition and Plan: Patient be brought in the hospital for observation/ admission by Dr. Mckeon; please see his notes and orders for final disposition and plan.
[2016-10-30] MEDS ORDERED: ACETAMINOPHEN 325 MG TAB PO PRN (03:45)
[2016-10-30 04:46] LABS: BASO % 0.8 %; BASO ABS # 0.06 K/uL (0-0.2); COMPLETE YES; EOS % 2.3 %; HEMATOCRIT 40.3 % (42-52); IG% 0.1 %; LYMPH % 27.2 %; LYMPH ABS # 2.04 K/uL (1.2-3.4); MEAN CELL VOLUME 93.3 fL (80-100); MEAN CORPUSCULAR HGB CONC 33.3 g/dl (32-36); MONO % 4.4 %; NEUT % 65.2 %; PLATELET COUNT 202 K/uL (130-400); RED BLOOD COUNT 4.32 M/uL (4.7-6.1)
[2016-10-30 05:06] LABS: BUN/CREATININE RATIO 16.2 (10-20); CALCIUM 8.5 mg/dl (8.5-10.1); CREATININE 2.4 mg/dl (0.60-1.40); MAGNESIUM 1.7 mg/dl (1.8-2.4); POTASSIUM 4.5 mmol/L (3.5-5.1)
--- NOTE | 2016-10-30 05:14 | HISTORY & PHYSICAL EXAMINATION ---
DATE OF ADMISSION: 10/29/2016 PRIMARY CARE DOCTOR: Dr. Perry. CHIEF COMPLAINT: Hypotension, diarrhea. HISTORY OF PRESENT ILLNESS: Medical history significant for COPD, ongoing tobacco abuse, Charcot-Fidelia- Tooth dse, hypertension, DM2 on oral meds, paroxysmal AFib off anticoagulation because of bleeding in the past. chronic pain 2 to OA, hx internal hemorrhoids/polyps on past colonoscopy Recent confinement last month for left femoral fracture, nondisplaced secondary to a mechanical fall. No surgical intervention. Patient discharged to [facility] for rehabilitation. Patient's appetite was not the best at the [facility]. Yesterday he had nausea, vomiting, diarrhea more than 5 times. No chest pain, no shortness of breath, no abdominal pain. No recent antibiotics. SBPs 70s at the rehab. Patient brought to the Emergency Room. SBP currently 113/62 after fluid bolus given in the Emergency Room. MEDICAL HISTORY: As above. SURGERIES: Cholecystectomy, toe amputation, and neck surgery. HOME MEDICATIONS: Include mag oxide, multivitamins, Niaspan, Prilosec, OxyIR, ProAir, Senokot, Flomax, Neurontin, NovoLog, lisinopril, Mevacor, Glucophage, ascorbic acid, Tylenol, aspirin, Dulcolax, Colace, Celebrex, vitamin D, digoxin, Advair Diskus, glimepiride. ALLERGIES: PENICILLIN. FAMILY HISTORY: Heart disease. PERSONAL AND SOCIAL HISTORY: Half pack daily. No chronic intake of alcoholic beverages. Retired [employer] employee. REVIEW OF SYSTEMS: As per HPI, all other ROS negative. PHYSICAL EXAMINATION: VITAL SIGNS: Blood pressure was noted to be 82/55 later 107/62; pulse rate 86, respirations 18, T 37, O2 sats 91% on room air. GENERAL: Noted to be obese, slightly uncomfortable, no respiratory distress. SKIN: Normal color. HEENT: [place] palpebral conjunctivae. Dry mucosa. NECK: Short neck. LUNGS: Decreased breath sounds. HEART: Regular rate and rhythm. ABDOMEN: Some distention, nontender. EXTREMITIES: Minimal LE edema, tender LLE (chronic) NEUROLOGIC: No gross focality. LABS: Hemoglobin was noted to be 16, hematocrit 47, white cell count 12, platelets 280. Sodium 137, potassium 4.6, chloride 106, CO2 of 24, BUN 36, creatinine 2.4, glucose 108. Lactic acid was 1.4. stool hemoccult positive at the ER ASSESSMENT: 1. Transient hypotension, ARF secondary to hypovolemia secondary to diarrheal illness. Rule out Clostridium difficile recent hospital confinement/rehab facility stay. home meds contributory to ARF PX currently normotensive after initial IV hydration given in the ER. 2. history of paroxysmal atrial fibrillation. px currently, normal sinus rhythm, off anticoagulation because of bleeding in the past. 3. chronic obstructive pulmonary disease, past tobacco abuse episodic hypoxemia noted in the ER px denies sob sx 4. chronic pain 2 to arthritis 5. DM2 on oral meds, suboptimal control as of recent HgA1c of 9.2 last 09/2016. PLAN: GMF stool C. dif, Flagyl for now for presumptive cdif in light of leukocytosis dc Flagyl if stool cdif negative baseline UA, monitor creatinine response to IVF appropriate to hold home NSAIDs, FLORA inhibitor until creatinine at baseline hold home antihypertensives until BP consistently stable Basal insulin, ISS BG goal 140-180 Carb count coverage indicated for suboptimal blood sugar control. Nicotine patch DVT prophylaxis. Heparin subQ. Full code. MTDD
[2016-10-30] MEDS ORDERED: MAGNESIUM SULFATE 1GM / D5W 1 GM in PREMIXED IN D5W 100 ML IV ONE (06:00)
[2016-10-30] MEDS: HEPARIN SOD 5000 UNIT/0.5 ML CARP SQ SCH ×4 (06:11→21:27)
[2016-10-30] MEDS ORDERED: OXYCODONE HCL IR 5 MG TAB (IMMEDIATE RELEASE) PO SCH (08:00)
[2016-10-30] MEDS: NICOTINE 14 MG/24 HR TDSY TD SCH (08:00)
[2016-10-30] MEDS ORDERED: METRONIDAZOLE / NSS 500 MG in PREMIXED NSS 100 ML IV SCH (08:00)
[2016-10-30] MEDS: FLUTICASONE/SALMETEROL 250/50 (ADVAIR) 14 PUFF/1 INHALER INH SCH ×2 (08:54→21:19)
[2016-10-30] MEDS: GABAPENTIN 100 MG CAP PO SCH ×2 (08:54→21:20)
[2016-10-30] MEDS: CEROVITE ADV FORMULA TAB PO SCH (08:54)
[2016-10-30] MEDS: ASPIRIN 81 MG ECTAB PO SCH (08:54)
[2016-10-30] MEDS: PANTOprazole SOD 40 MG TAB PO SCH (08:55)
[2016-10-30] MEDS: VITAMIN B COMPLEX TAB PO SCH (08:55)
[2016-10-30] MEDS: INSULIN GLARGINE SOLOSTAR 100 UNITS/ML 3 ML PEN SC SCH (09:08)
[2016-10-30] MEDS: INSULIN ASPART 100 UNITS/ML 3 ML PEN SC SCH ×4 (09:09→21:15)
[2016-10-30 09:48] LABS: URINE APPEARANCE CLOUDY (CLEAR); URINE BILIRUBIN NEG (NEG); URINE COLOR DK YELLOW; URINE NITRITE NEG (NEG); URINE SPECIFIC GRAVITY 1.014 (1.000-1.030); UROBILINOGEN NEG (NEG); ZZUR CULT IF INDIC CLEAN CATCH NO
[2016-10-30 09:49] LABS: MANUAL MICROSCOPIC REQUIRED? NO; REVIEW REQ? YES
[2016-10-30 09:56] LABS: URINE PATH CASTS 1-5 GRANULAR CASTS /lpf (0)
[2016-10-30] MEDS: OXYCODONE HCL IR 5 MG TAB (IMMEDIATE RELEASE) PO PRN ×2 (13:05→20:02)
[2016-10-30] MEDS ORDERED: DIGOXIN 0.125 MG TAB PO SCH (16:00)
--- NOTE | 2016-10-30 17:55 | Progress Note ---
Internal Med Progress Note Date of Service: Oct 30, 2016. Provider Documentation: SUBJECTIVE: Seen and examined at bedside. States having one loose BM this morning. Denies any abd pain, nausea, vomiting, dizziness. OBJECTIVE: Vital Signs-as noted below Physical Exam: General Appearance:Obese, no apparent distress Head: normocephalic, Atraumatic Eyes: normal inspection, EOMI, PERRLA, Anicteric Neck: supple, no JVD, Trachea midline Respiratory/Chest: decreased breath sounds, CTA, No accessory muscle use Cardiovascular: S1, S2, NSR, No murmur Abdomen/GI:Soft, Non tender, Bowel sounds present Extremities/Musculoskelatal:normal inspection, no edema Neurologic/Psych:AAOX3, grossly no focal neurological deficits Skin: normal color, warm Lab data as noted below. ASSESSMENT & PLAN: Diarrhea/Nausea/Vomiting: Likely Viral gastroenteritis: Also had transient Hypotension and lightheadedness at time of presentation Transferred from rehab facility (Placed for Left, Distal Femoral Fracture) Patient had only 1 Loose BM today, denies nausea, dizziness Stool: negative for C.diff Follow up stool studies DC IV Flagyl Continue IV fluids Hold antihypertensive meds for now Acute renal insufficiency: Likely prerenal Continue IV fluids Check renal USD Hold lisinopril Avoid nephrotoxic agents Positive FOBT: Hb stable H/O hemorrhoids May need colonoscopy as outpatient Continue to monitor H/O P.Afib: Currently in NSR Not on anticoagulation secondary to H/O bleeding in the past Chronic COPD: Former tobacco abuse Episodic hypoxemia noted in the ER Denies any symptoms Taper off oxygen as able Chronic pain: Secondary to arthritis Avoids NSAIDs secondary to renal insufficiency DM II Last HgA1c: 9.2 Painted on oral meds at home Basal insulin, ISS BG goal 140-180 DVT Px: Heparin subQ. Code Status: Full code Disposition: Patient prefers not to return to [facility] and wants to be discharged home PT/OT social work manager consulted Vital Signs: Date Time Temp Pulse Resp B/P Pulse Ox O2 Delivery O2 Flow Rate FiO2 10/30/16 15:53 83 10/30/16 15:28 36.4 84 18 108/63 95 Room Air 10/30/16 11:44 36.7 88 20 111/63 94 Room Air 10/30/16 08:00 Room Air 2.0 Nasal Cannula 10/30/16 07:44 36.4 88 18 107/66 97 Nasal Cannula 2.0 10/30/16 05:27 84 20 108/62 95 Room Air 10/30/16 03:08 85 99/57 10/30/16 01:40 36.4 20 89/57 Nasal Cannula 3.0 10/30/16 01:10 36.4 20 89/57 95 3.0 10/30/16 00:02 93 16 105/59 92 10/29/16 23:45 93 16 105/59 92 Nasal Cannula 2.0 10/29/16 23:35 87 Room Air 10/29/16 23:23 93 16 113/62 91 Room Air 10/29/16 22:36 90 16 107/62 10/29/16 22:12 92 16 82/52 10/29/16 21:18 90 16 78/46 91 Room Air 10/29/16 20:22 88 16 83/61 90 Room Air 10/29/16 20:15 89 10/29/16 20:10 91 16 90/48 90 Room Air 10/29/16 20:05 87 16 86/53 91 10/29/16 20:01 86 16 82/55 91 Room Air 10/29/16 19:36 36.5 87 16 111/92 93 Room Air Lab Results: Results Past 24 Hours Test 10/29/16 19:30 10/29/16 20:32 10/29/16 20:49 10/29/16 22:20 Range/Units White Blood Count 12.08 4.8-10.8 K/uL Red Blood Count 5.08 4.7-6.1 M/uL Hemoglobin 16.2 14.0-18.0 g/dL Hematocrit 47.6 42-52 % Mean Corpuscular Volume 93.7 80-100 fL Mean Corpuscular Hemoglobin 31.9 25-34 pg Mean Corpuscular Hemoglobin Concent 34.0 32-36 g/dl Platelet Count 280 130-400 K/uL Mean Platelet Volume 10.9 7.4-10.4 fL Neutrophils (%) (Auto) 74.6 % Lymphocytes (%) (Auto) 16.1 % Monocytes (%) (Auto) 6.0 % Eosinophils (%) (Auto) 2.4 % Basophils (%) (Auto) 0.6 % Neutrophils # (Auto) 9.01 1.4-6.5 K/uL Lymphocytes # (Auto) 1.94 1.2-3.4 K/uL Monocytes # (Auto) 0.73 0.11-0.59 K/uL Eosinophils # (Auto) 0.29 0-0.5 K/uL Basophils # (Auto) 0.07 0-0.2 K/uL RDW Standard Deviation 49.2 36.4-46.3 fL RDW Coefficient of Variation 14.5 11.5-14.5 % Immature Granulocyte % (Auto) 0.3 % Immature Granulocyte # (Auto) 0.04 0.00-0.02 K/uL Sodium Level 137 136-145 mmol/L Potassium Level 4.6 3.5-5.1 mmol/L Chloride Level 101 98-107 mmol/L Carbon Dioxide Level 24 21-32 mmol/L Anion Gap 12.0 3-11 mmol/L Blood Urea Nitrogen 36 7-18 mg/dl Creatinine 2.40 0.60-1.40 mg/dl Est Creatinine Clear Calc Drug Dose 33.4 ml/min Estimated GFR () 30.7 Estimated GFR (Non- 26.5 BUN/Creatinine Ratio 15.1 10-20 Random Glucose 168 70-99 mg/dl Calcium Level 9.7 8.5-10.1 mg/dl Magnesium Level 1.1 1.8-2.4 mg/dl Total Bilirubin 0.7 0.2-1 mg/dl Direct Bilirubin 0.3 0-0.2 mg/dl Aspartate Amino Transf (AST/SGOT) 38 15-37 U/L Alanine Aminotransferase (ALT/SGPT) 198 12-78 U/L Alkaline Phosphatase 105 45-117 U/L Total Protein 8.3 6.4-8.2 gm/dl Albumin 3.5 3.4-5.0 gm/dl Digoxin Level 1.4 0.8-2.0 ng/ml Bedside Troponin I 0.040 0-0.045 ng/ml Prothrombin Time 12.0 9.0-12.0 SECONDS Prothromb Time International Ratio 1.1 0.9-1.1 Activated Partial Thromboplast Time 30.1 21.0-31.0 SECONDS Partial Thromboplastin Ratio 1.2 Bedside Lactic Acid Venous 1.46 0.90-1.70 mmol/L Test 10/30/16 04:35 10/30/16 07:53 10/30/16 09:21 10/30/16 11:30 Range/Units White Blood Count 7.50 4.8-10.8 K/uL Red Blood Count 4.32 4.7-6.1 M/uL Hemoglobin 13.4 14.0-18.0 g/dL Hematocrit 40.3 42-52 % Mean Corpuscular Volume 93.3 80-100 fL Mean Corpuscular Hemoglobin 31.0 25-34 pg Mean Corpuscular Hemoglobin Concent 33.3 32-36 g/dl Platelet Count 202 130-400 K/uL Mean Platelet Volume 10.0 7.4-10.4 fL Neutrophils (%) (Auto) 65.2 % Lymphocytes (%) (Auto) 27.2 % Monocytes (%) (Auto) 4.4 % Eosinophils (%) (Auto) 2.3 % Basophils (%) (Auto) 0.8 % Neutrophils # (Auto) 4.89 1.4-6.5 K/uL Lymphocytes # (Auto) 2.04 1.2-3.4 K/uL Monocytes # (Auto) 0.33 0.11-0.59 K/uL Eosinophils # (Auto) 0.17 0-0.5 K/uL Basophils # (Auto) 0.06 0-0.2 K/uL RDW Standard Deviation 49.7 36.4-46.3 fL RDW Coefficient of Variation 14.5 11.5-14.5 % Immature Granulocyte % (Auto) 0.1 % Immature Granulocyte # (Auto) 0.01 0.00-0.02 K/uL Sodium Level 140 136-145 mmol/L Potassium Level 4.5 3.5-5.1 mmol/L Chloride Level 106 98-107 mmol/L Carbon Dioxide Level 24 21-32 mmol/L Anion Gap 10.0 3-11 mmol/L Blood Urea Nitrogen 39 7-18 mg/dl Creatinine 2.40 0.60-1.40 mg/dl Est Creatinine Clear Calc Drug Dose 33.4 ml/min Estimated GFR () 30.7 Estimated GFR (Non- 26.5 BUN/Creatinine Ratio 16.2 10-20 Random Glucose 167 70-99 mg/dl Lactic Acid Level 0.9 0.4-2.0 mmol/L Calcium Level 8.5 8.5-10.1 mg/dl Magnesium Level 1.7 1.8-2.4 mg/dl Total Bilirubin 0.4 0.2-1 mg/dl Direct Bilirubin 0.2 0-0.2 mg/dl Aspartate Amino Transf (AST/SGOT) 23 15-37 U/L Alanine Aminotransferase (ALT/SGPT) 133 12-78 U/L Alkaline Phosphatase 78 45-117 U/L Total Protein 6.4 6.4-8.2 gm/dl Albumin 2.9 3.4-5.0 gm/dl Bedside Glucose 149 70-99 mg/dl Urine Color DK YELLOW Urine Appearance CLOUDY CLEAR Urine pH 5.0 4.5-7.5 Urine Specific [place] 1.014 1.000-1.030 Urine Protein 1+ NEG Urine Glucose (UA) 2+ NEG Urine Ketones NEG NEG Urine Occult Blood NEG NEG Urine Nitrite NEG NEG Urine Bilirubin NEG NEG Urine Urobilinogen NEG NEG Urine Leukocyte Esterase NEG NEG Urine WBC (Auto) 1-5 0-5 /hpf Urine RBC (Auto) 0-4 0-4 /hpf Urine Hyaline Casts (Auto) >30 0-5 /lpf Urine Epithelial Cells (Auto) 10-20 0-5 /lpf Urine Bacteria (Auto) NEG NEG Urine Crystals URIC ACID NONE PRSENT Urine Pathogenic Casts 1-5 GRANULAR CASTS 0 /lpf Test 10/30/16 11:51 10/30/16 17:08 Range/Units Bedside Glucose 130 129 70-99 mg/dl Microbiology Results 10/30/16 MRSA DNA Surveillance Screen - Final, Complete Specimen Negative for MRSA by DNA Probe 10/30/16 C.difficile Toxin B Gene (PCR) - Final, Complete No C. difficile toxin B gene detected 10/29/16 Shiga Toxin Test - Preliminary, Resulted 10/29/16 Stool Culture - Preliminary, Resulted NO SALMONELLA ISOLATED TO DATE,...
[2016-10-30] MEDS ORDERED: LOVASTATIN 20 MG TAB PO SCH (21:00)
[2016-10-31 00:13] VITALS: BP 162/71; PULSE 84; TEMP 36.6; O2SAT 97
[2016-10-31] MEDS ORDERED: CARVEDILOL 3.125 MG TAB PO ONE (01:15)
[2016-10-31] MEDS: HEPARIN SOD 5000 UNIT/0.5 ML CARP SQ SCH ×2 (06:00→06:12)
[2016-10-31] MEDS: OXYCODONE HCL IR 5 MG TAB (IMMEDIATE RELEASE) PO PRN ×2 (06:26→11:59)
[2016-10-31 06:55] LABS: BUN/CREATININE RATIO 16.4 (10-20); CALCIUM 8.8 mg/dl (8.5-10.1); CREATININE 1.4 mg/dl (0.60-1.40); POTASSIUM 4.1 mmol/L (3.5-5.1)
[2016-10-31] MEDS: NICOTINE 14 MG/24 HR TDSY TD SCH (08:00)
[2016-10-31 08:23] VITALS: BP 137/70; PULSE 76; TEMP 36.5; O2SAT 96
[2016-10-31] MEDS: ASPIRIN 81 MG ECTAB PO SCH (09:42)
[2016-10-31] MEDS: GABAPENTIN 100 MG CAP PO SCH (09:43)
[2016-10-31] MEDS: VITAMIN B COMPLEX TAB PO SCH (09:43)
[2016-10-31] MEDS: PANTOprazole SOD 40 MG TAB PO SCH (09:43)
[2016-10-31] MEDS: FLUTICASONE/SALMETEROL 250/50 (ADVAIR) 14 PUFF/1 INHALER INH SCH (09:44)
[2016-10-31] MEDS: CEROVITE ADV FORMULA TAB PO SCH (09:44)
[2016-10-31] MEDS: INSULIN ASPART 100 UNITS/ML 3 ML PEN SC SCH ×2 (09:58→12:54)
[2016-10-31] MEDS: INSULIN GLARGINE SOLOSTAR 100 UNITS/ML 3 ML PEN SC SCH (09:59)
--- NOTE | 2016-10-31 11:05 | Progress Note ---
Internal Med Progress Note Date of Service: Oct 31, 2016. Provider Documentation: SUBJECTIVE: Seen and examined at bedside. States feeling well. Denies any abd pain, nausea, vomiting, dizziness, diarrhea. OBJECTIVE: Vital Signs-as noted below Physical Exam: General Appearance:Obese, no apparent distress Head: normocephalic, Atraumatic Eyes: normal inspection, EOMI, PERRLA, Anicteric Neck: supple, no JVD, Trachea midline Respiratory/Chest: decreased breath sounds, CTA, No accessory muscle use Cardiovascular: S1, S2, NSR, No murmur Abdomen/GI:Soft, Non tender, Bowel sounds present Extremities/Musculoskelatal:normal inspection, no edema Neurologic/Psych:AAOX3, grossly no focal neurological deficits Skin: normal color, warm Lab data as noted below. ASSESSMENT & PLAN: Diarrhea/Nausea/Vomiting: Likely Viral gastroenteritis: Also had transient Hypotension and lightheadedness at time of presentation Transferred from rehab facility (Placed for Left, Distal Femoral Fracture) Diarrhea, nausea, dizziness resolved Stool: negative for C.diff stool studies: negative to date DC IV Flagyl which was started empirically Discontinue IV fluids Will resume antihypertensive meds which were held Will his coreg dose to 6.25 BID from 12.5 BID Acute renal insufficiency: Likely prerenal Resolved Cr: levels wnl today DC IV fluids Avoid nephrotoxic agents Positive FOBT: Hb stable H/O hemorrhoids Advised to get colonoscopy as outpatient Continue to monitor H/O P.Afib: Currently in NSR Not on anticoagulation secondary to H/O bleeding in the past Chronic COPD: Former tobacco abuse Episodic hypoxemia noted in the ER Denies any symptoms Saturating 96% on RA Chronic pain: Secondary to arthritis Avoids NSAIDs secondary to renal insufficiency DM II Last HgA1c: 9.4 To resume oral meds at home Basal insulin, ISS BG goal 140-180 Diabetic diet Patient prefers to be only on pills Advised to discuss with PCP regarding need for Insulin therapy DVT Px: Heparin subQ. Code Status: Full code Disposition: Patient prefers not to return to [facility] and wants to be discharged home PT/OT social media assistant consulted Plan to discharge today: Home with home health services Vital Signs: Date Time Temp Pulse Resp B/P Pulse Ox O2 Delivery O2 Flow Rate FiO2 10/31/16 08:23 36.5 76 18 137/70 96 Room Air 10/31/16 08:00 Room Air 2.0 Nasal Cannula 10/31/16 00:13 36.6 84 20 162/71 97 Room Air 10/31/16 00:00 Room Air 10/30/16 16:00 95 Room Air 10/30/16 15:53 83 10/30/16 15:28 36.4 84 18 108/63 95 Room Air 10/30/16 11:44 36.7 88 20 111/63 94 Room Air Lab Results: Results Past 24 Hours Test 10/30/16 11:51 10/30/16 17:08 10/30/16 20:29 10/31/16 05:53 Range/Units Bedside Glucose 130 129 152 70-99 mg/dl Sodium Level 138 136-145 mmol/L Potassium Level 4.1 3.5-5.1 mmol/L Chloride Level 107 98-107 mmol/L Carbon Dioxide Level 20 21-32 mmol/L Anion Gap 11.0 3-11 mmol/L Blood Urea Nitrogen 23 7-18 mg/dl Creatinine 1.40 0.60-1.40 mg/dl Est Creatinine Clear Calc Drug Dose 57.3 ml/min Estimated GFR () 59.0 Estimated GFR (Non- 50.9 BUN/Creatinine Ratio 16.4 10-20 Random Glucose 148 70-99 mg/dl Calcium Level 8.8 8.5-10.1 mg/dl Test 10/31/16 08:13 Range/Units Bedside Glucose 135 70-99 mg/dl
[2016-10-31] MEDS ORDERED: CARV6.25 PO (11:25)
--- NOTE | 2016-10-31 11:32 | Discharge Instructions ---
Discharge Instructions Admission Reason for Admission: ARF Discharge Discharge Diagnosis / Problem: Viral gastroenteritis, TIO Discharge Goals Goal(s): Decrease discomfort, Improve function Activity Recommendations Activity Limitations: resume your previous activity Exercise/Sports Limitations: as tolerated Driving or Machine Use: No driving until cleared by PCP . Instructions / Follow-Up Instructions / Follow-Up Follow up with Dr. Perry on Nov 04 at 2:50pm Your blood pressure medication, Coreg is reduced from 12.5mg to 6.25mg twice a day Follow up with your doctor if your blood pressure is very high or low to get medication dosage adjusted Also follow up with your PCP regarding need for Insulin as your diabetes is not well controlled with oral medications. Follow up with your fibrous wallboard inspector for need for colonoscopy as advised Current Hospital Diet Patient's current hospital diet: AHA Diet (Heart Healthy), Diabetes Type 2 Diet Discharge Diet Recommended Diet: Diabetes Type 2 Diet Pending Studies Studies pending at discharge: no Laboratory Results Hemoglobin A1c Test 10/11/16 05:50 Range/Units Estimated Average Glucose 223 mg/dl Hemoglobin A1c 9.4 H 4.5-5.6 % Lipid Panel Test 10/11/16 05:50 Range/Units Triglycerides Level 521 H 0-150 mg/dl Cholesterol Level 157 0-200 mg/dl HDL Cholesterol 33 mg/dl Cholesterol/HDL Ratio 4.8 LDL Cholesterol, Calculated mg/dl Medical Emergencies . Who to Call and When: Medical Emergencies: If at any time you feel your situation is an emergency, please call 911 immediately. . Non-Emergent Contact Non-Emergency issues call your: Primary Care Provider Call Non-Emergent contact if: you have a fever, wound has increased pain, you have any medication questions . . "Provider Documentation" section prepared by Asa Fuentes. VTE Core Measure Inpt VTE Proph given/why not?: SCD's
[2016-10-31 11:49] VITALS: TEMP 36.5; O2SAT 96
[2016-10-31 12:30] VITALS: BP 142/80; PULSE 102; O2SAT 93
--- NOTE | 2016-10-31 19:17 | Discharge Summary ---
Discharge Summary Admission Date: Oct 29, 2016 at 22:59 Discharge Date: Oct 31, 2016 Discharge Disposition: Home with services Principal Diagnosis: Viral gastroenteritis, TIO Procedures: Chest/Abdomen X ray: Normal study. Pending Studies/Follow-Up: Follow up with Dr. Perry on Nov 04 at 2:50pm Your blood pressure medication, Coreg is reduced from 12.5mg to 6.25mg twice a day Follow up with your doctor if your blood pressure is very high or low to get medication dosage adjusted Also follow up with your PCP regarding need for Insulin as your diabetes is not well controlled with oral medications. Follow up with your self propelled dredge operator for need for colonoscopy as advised Medication Reconciliation New Medications: Carvedilol (Coreg) 6.25 Mg Tab 1 TAB PO BID for 30 Days, #60 TAB 1 Refill Continued Medications: Acetaminophen (Tylenol) 325 Mg Tab 650 MG PO Q4 PRN for MILD PAIN, TAB Ascorbic Acid (Ascorbic Acid) 500 Mg Tab 500 MG PO DAILY, TAB Aspirin Enteric Coated (Ecotrin Or Generic) 81 Mg Tab 81 MG PO DAILY, 0 Refills B Complex W/ C (B-Complex +C) 1 Tab Tab 1 TAB PO DAILY Bisacodyl (Biscolax) 10 Mg Sup 10 MG PO DAILY PRN for MOM NOT EFFECTIVE ON DAY 5 Cholecalciferol (Vitamin D) 5,000 Unit Tab 5000 UNITS PO QPM Digoxin (Digoxin) 0.125 Mg Tab 0.125 MG PO QAM Fluticasone Prop/Salmeterol (Advair Diskus 250/50 60 Dose) 1 Ea Aerp 1 PUFF INH BID, INHALER Gabapentin (Neurontin) 300 Mg Cap 300 MG PO TID, CAP Glimepiride (Glimepiride) 2 Mg Tab 2 MG PO DAILY Lisinopril (Prinivil) 5 Mg Tab 5 MG PO DAILY, TAB Lovastatin (Mevacor) 20 Mg Tab 20 MG PO HS, TAB Magnesium Hydroxide (Milk Of Magnesia) 30 Ml Susp 30 ML PO DAILY PRN for FOR NO BM 3 DAYS, ML Magnesium Oxide (Mag-Ox) 400 Mg Tab 400 MG PO DAILY, TAB Metformin Hcl (Glucophage) 1,000 Mg Tab 1000 MG PO BID, TAB Multivitamins/Minerals (Mvi With Minerals) Tab 1 TAB PO DAILY, TAB Niacin Ext Rel (Niaspan Ext Rel) 1,000 Mg Tabcr 1000 MG PO AMHS Omeprazole (Prilosec) 40 Mg Cap 40 MG PO DAILY, CAP Oxycodone Immediate Rel Tab (Roxicodone Ir) 5 Mg Tab 10 MG PO Q4H PRN for Severe Pain, TAB Oxycodone Immediate Rel Tab (Roxicodone Ir) 5 Mg Tab 5 MG PO Q4H, TAB Sennosides-Docusate Sodium (Senexon-S) 1 Tab Tab 1 TAB PO QAM Tamsulosin Hcl (Flomax) 0.4 Mg Cap 0.4 MG PO HS, CAP [Proair Hfa] () 2 PUFFS INH Q6 PRN for SOB/Wheezing Discontinued Medications: Acetaminophen Tab (Tylenol) 325 Mg Tab 650 MG PO TID for ROUTINE FOR PAIN, TAB Carvedilol (Coreg) 12.5 Mg Tab 12.5 MG PO BID, TAB Celecoxib (CeleBREX) 200 Mg Cap 200 MG PO BID, CAP Insulin Aspart (Novolog) 100 Units/Ml Inj 6 UNITS SQ TIDM HOLD IF EATS LESS THAN 25% OF MEAL Oxycodone Immediate Rel Tab (Roxicodone Ir) 5 Mg Tab 5 MG PO TID, TAB Hospital Course Diarrhea/Nausea/Vomiting: Likely Viral gastroenteritis: Also had transient Hypotension and lightheadedness at time of presentation Transferred from rehab facility (Placed for Left, Distal Femoral Fracture) Diarrhea, nausea, dizziness resolved Stool: negative for C.diff stool studies: negative to date DC IV Flagyl which was started empirically Discontinue IV fluids Will resume antihypertensive meds which were held Will his coreg dose to 6.25 BID from 12.5 BID Acute renal insufficiency: Likely prerenal Resolved Cr: levels wnl today DC IV fluids Avoid nephrotoxic agents Positive FOBT: Hb stable H/O hemorrhoids Advised to get colonoscopy as outpatient Continue to monitor H/O P.Afib: Currently in NSR Not on anticoagulation secondary to H/O bleeding in the past Chronic COPD: Former tobacco abuse Episodic hypoxemia noted in the ER Denies any symptoms Saturating 96% on RA Chronic pain: Secondary to arthritis Avoids NSAIDs secondary to renal insufficiency DM II Last HgA1c: 9.4 To resume oral meds at home Basal insulin, ISS BG goal 140-180 Diabetic diet Patient prefers to be only on pills Advised to discuss with PCP regarding need for Insulin therapy DVT Px: Heparin subQ. Code Status: Full code Disposition: Patient prefers not to return to [facility] and wants to be discharged home PT/OT older adult social work specialist consulted Plan to discharge today: Home with home health services Total time spent on discharge = This includes examination of the patient, discharge planning, medication reconciliation, and communication with other providers. Discharge Instructions Discharge Instructions Admission Reason for Admission: ARF Discharge Discharge Diagnosis / Problem: Viral gastroenteritis, TIO Discharge Goals Goal(s): Decrease discomfort, Improve function Activity Recommendations Activity Limitations: resume your previous activity Exercise/Sports Limitations: as tolerated Driving or Machine Use: No driving until cleared by PCP . Instructions / Follow-Up Instructions / Follow-Up Follow up with Dr. Perry on Nov 04 at 2:50pm Your blood pressure medication, Coreg is reduced from 12.5mg to 6.25mg twice a day Follow up with your doctor if your blood pressure is very high or low to get medication dosage adjusted Also follow up with your PCP regarding need for Insulin as your diabetes is not well controlled with oral medications. Follow up with your self propelled dredge operator for need for colonoscopy as advised Current Hospital Diet Patient's current hospital diet: AHA Diet (Heart Healthy), Diabetes Type 2 Diet Discharge Diet Recommended Diet: Diabetes Type 2 Diet Pending Studies Studies pending at discharge: no Laboratory Results Hemoglobin A1c Test 10/11/16 05:50 Range/Units Estimated Average Glucose 223 mg/dl Hemoglobin A1c 9.4 H 4.5-5.6 % Lipid Panel Test 10/11/16 05:50 Range/Units Triglycerides Level 521 H 0-150 mg/dl Cholesterol Level 157 0-200 mg/dl HDL Cholesterol 33 mg/dl Cholesterol/HDL Ratio 4.8 LDL Cholesterol, Calculated mg/dl Medical Emergencies . Who to Call and When: Medical Emergencies: If at any time you feel your situation is an emergency, please call 911 immediately. . Non-Emergent Contact Non-Emergency issues call your: Primary Care Provider Call Non-Emergent contact if: you have a fever, wound has increased pain, you have any medication questions . . "Provider Documentation" section prepared by Asa Fuentes. VTE Core Measure Inpt VTE Proph given/why not?: SCD's
[2016-10-31] MEDS ORDERED: CARVEDILOL 3.125 MG TAB PO SCH (20:00)
[2016-10-31] MEDS ORDERED: TAMSULOSIN HCL 0.4 MG CAP PO SCH (22:00)
[2016-11-08 16:46] LABS: NOROVIRUS RNA** TC 19098X NOT DETECTED
[2017-01-07] MEDS ORDERED: LISI-788 PO (14:11)
[2017-01-07] MEDS ORDERED: ZOLP5TAB6 PO (14:11)
[2017-01-07] MEDS ORDERED: CARV6.25 PO (14:11)
[2017-01-07] MEDS ORDERED: CLB/200 PO (14:11)
[2017-01-07] MEDS ORDERED: GLIM4TAB2 PO (14:11)
== END 2016-10-31 14:48 | disposition home health service (06) | DRG 392 ==
LOC: ENRESERVDT → ENRESERVTM → EDBD 19:31 → C.EDC 19:34 → C.MS4W 22:59 → EDBEDREQ 23:18
PROVIDERS: ADMIT Internal Medicine; ATTEND Internal Medicine
DX: K29.70 Gastritis, unspecified, without bleeding (principal); N17.9 Acute kidney failure, unspecified; E11.9 Type 2 diabetes mellitus without complications; E78.5 Hyperlipidemia, unspecified; E86.1 Hypovolemia; F17.210 Nicotine dependence, cigarettes, uncomplicated; I10 Essential (primary) hypertension; I48.0 Paroxysmal atrial fibrillation; I50.9 Heart failure, unspecified; J44.9 Chronic obstructive pulmonary disease, unspecified; M19.90 Unspecified osteoarthritis, unspecified site; R09.02 Hypoxemia

== ENCOUNTER → 2017-01-18 | Day surgery (SDC) | payer OTHER ==
[2017-01-07 09:38] VITALS: Ht 167.6 cm; Wt 104.5 kg
[~2017-01-18] VITALS: Ht 167.6 cm; Wt 104.5 kg
[~2017-01-18] MED LIST changes: +500ML BSS 0.3ML EPI 1:1000PF IRRIG ONE; +ACETAMINOPHEN 325 MG TAB PO PRN; +ALBU18002 INH; +AMVISC PLUS 0.8ML SYRINGE INT OCU ONE; +ATROPINE SULFATE 0.1 MG/ML 5ML SYR IV PRN; -B CO1CAP2 PO; +B COTAB PO; +BSS FLUSH ONE; +CANA1TAB PO; -CARV12.52 PO; +CARV6.25 PO; +CLB/200 PO; +CLIN150C PO; +CLIN150C15 PO; +CLIN300C2 PO; -DIGO0.1267 PO; +EpHEDrine SULFATE INJ 50 MG/ML AMP IV PRN; +EpINEphrine INJ 1MG/ML AMP 1 MG/ML AMP ONE; +FINA5TAB PO; -GLIM2TAB2 PO; +GLIM4TAB2 PO; +LACTATED RINGER'S 1000ML 500 ML IV SCH; +LIDOCAINE 3.5% OPH GEL PER APPLICATION CHARGE ONE; +LIDOCAINE HCL 1% MPF 2 ML VIAL ONE; +LNX125 PO; +LOVA20TA4 PO; -MAGN400T6 PO; +MIDAZOLAM HCL 1 MG/ML 2ML VIAL ONE; +MIX: 4ML BSS 1ML EPI 1:1000 PF INSTIL ONE; -MOMLX PO; -MULT-506 PO; +MULT-513 PO; -MVC20 PO; +NSP500 PO; -NVLGIPEN SC; +OCUCOAT 1 ML SOLN IO ONE; -OMEP40CA PO; +OMEP40CA41 PO; +OXYC1TAB3 PO; +PHENYLEPHRINE HCL 10% OP SOLN PER DROP CHARGE OPL SCH; +POVIDONE-IODINE OP SOLN 30 ML BTL ONE; +PRED20TA PO; +PROAIR HFA INH; +PROPARACAINE 0.5% OP SOLN PER DROP CHARGE OPL SCH; -RXC5 PO; +SACC250C3 PO; -SENN8.6T7 PO; +TOBRAMYCIN/DEXAMETHASONE OPH OINT PER APPLN CHARGE ONE; +ZOLP5TAB6 PO
[2017-01-18] MEDS: PHENYLEPHRINE HCL 2.5% OP SOLN PER DROP CHARGE OPL SCH ×2 (08:46→08:51)
[2017-01-18] MEDS: TROPICAMIDE 1% OP SOLN PER DROP CHARGE OPL SCH ×2 (08:47→08:52)
[2017-01-18] MEDS: CYCLOPENTOLATE HCL 1% OP SOLN PER DROP CHARGE OPL SCH ×2 (08:48→08:53)
[2017-01-18] MEDS: KETOROLAC 0.5% OP SOLN PER DROP CHARGE OPL SCH ×2 (08:49→08:54)
[2017-01-18] MEDS: GATIFLOXACIN OP SOLN PER DROP CHARGE OPL SCH ×2 (08:50→09:00)
--- NOTE | 2017-01-18 09:16 | History & Physical Bridge - [place] ---
H&P Re-Evaluation Bridge Note: I have examined the patient, reviewed the History & Physical and in the interval since the performance of the History & Physical I have noted the following changes of clinical significance: No changes noted
--- NOTE | 2017-01-18 09:50 | Discharge Instructions-[facility]urgCtr ---
Discharge Instructions Date of Service Jan 18, 2017. Visit Reason for Visit: Cataract Left Eye Discharge Discharge Diagnosis / Problem: cataract Discharge Goals Goal(s): Improve function Medications Stopped Medications Name(s): metformin, last dose 01/14/17 Activity Recommendations Activity Limitations: per Instructions/Follow-up section Anesthesia . Post Anesthesia Instructions: If you have had General Anesthesia or IV Sedation: * Do not drive today. * Resume driving when surgeon permits. * Do not make important decisions or sign legal documents today. * Call surgeon for: 1. Temperature elevations greater than 101 degrees F. 2. Uncontrollable pain. 3. Excessive bleeding. 4. Persistent nausea and vomiting. 5. Medication intolerance (nausea, vomiting or rash). * For nausea and vomiting use only clear liquids such as: tea, soda, bouillon until nausea subsides, then gradually increase diet as tolerated. * If you have any concerns or questions, call your surgeon's office. If physician is unavailable and it is an emergency, call 911 or go to the nearest emergency room. . Instructions / Follow-Up Instructions / Follow-Up ACTIVITY RECOMMENDATIONS: * No strenuous lifting, jogging or running for 4 days * No swimming or yard work for 1 week. * Limited bending is permitted, such as putting on shoes. RETURN TO SCHOOL/WORK: No work until seen by physician in office. MEDICATIONS: Resume previous medications unless instructed otherwise by your surgeon. This includes eye drops for glaucoma. Zymaxid/Gatifloxacin (tello cap) - one drop every 2 hours until bedtime Nevanac/Ilevro/Prolensa/Ketorolac (haile cap) - one drop every 4 hours until bedtime Prednisolone (white/pink cap, SHAKE WELL) - one drop every 2 hours until bedtime Starting tomorrow - all 3 drops every 4 hours until seen in the office Optive drops - as needed for discomfort SPECIAL CARE INSTRUCTIONS: * Wear eyeshield when sleeping, for four nights. * You may wear your own glasses or sunglasses while awake. * You may read or watch TV * You may shower and wash your face, but be gentle around the eye and pat dry. * Blurry vision and mild irritation are normal. * Call office if pain is more severe or vision becomes dark at . FOLLOW UP VISIT: Follow-up with Dr Morse tomorrow. Diet Recommendations Home Diet: resume previous diet Procedures Procedures Performed: Left Cataract Phacoemulsification With Intraocular Lens Implant Pending Studies Studies pending at discharge: no Medical Emergencies . Who to Call and When: Medical Emergencies: If at any time you feel your situation is an emergency, please call 911 immediately. . Non-Emergent Contact Non-Emergency issues call your: Clinical Education Assistant . . "Provider Documentation" section prepared by Bryce Morse. .
[2017-01-18 09:51] VITALS: TEMP 36.7
--- NOTE | 2017-01-18 09:51 | [facility] Operative Report ---
Operative Report Date of Service Jan 18, 2017. Operative Report 1. PREOPERATIVE DIAGNOSIS: Cataract of the left eye. 2. POSTOPERATIVE DIAGNOSIS: Same. 3. PROCEDURE: Phacoemulsification with intraocular lens implantation of the left eye. SURGEON: Dr. Bryce Morse. ANESTHESIA: Topical Lidocaine gel, 1% Non- Preserved intracameral Lidocaine, and monitored intravenous sedation. INDICATIONS FOR THE PROCEDURE: The patient is a 71 - year-old male with a history of cataract of the left eye causing significant visual impairment. The details of the proposed procedure were explained to the patient who asked appropriate questions and following discussion of all risks, benefits and alternatives agreed to have the procedure done. The patient had a know history of taking of flomax. 4. OPERATION AND FINDINGS: DESCRIPTION OF PROCEDURE: After informed consent was obtained, the patient was brought to the Operating Room at the [facility]. The patient was placed in a supine position and then the left eye was prepped and draped in the usual sterile fashion for intraocular surgery. A drop of topical Lidocaine gel was placed in the operative eye. A wire lid speculum was then placed in the fornices. A corneal paracentesis was then created temporally. The Non-Preserved Lidocaine was then instilled into the anterior chamber. Epinephrine with a 1:4 dilution was instilled into the anterior chamber. The anterior chamber was then pressurized with viscoelastic. A 2.0 mm clear corneal incision was then created temporally. A cystotome was inserted into the anterior chamber and used to create a tear in the anterior lens capsule. This capsular tear was then used to create a small flap and the flap was dragged in a counterclockwise direction in order to create a continuous curvilinear capsulorrhexis. Hydrodissection was accomplished with balanced salt solution. Phacoemulsification of the lens nucleus was then performed in a standard [id number] technique. The phaco time was 27 seconds with an average power of 13 %. The remaining cortical material was removed using irrigation aspiration. The capsular bag was then filled with viscoelastic. A Bausch & Lomb MI60L +23.0 diopters lens was then loaded into the injector and injected into the capsular bag. The remaining viscoelastic was removed with the irrigation aspiration handpiece. The wound was hydrated and then checked and found to be watertight. The intraocular pressure was checked and found to be adequate. The wire lid speculum was removed and the patient's face was cleaned and dried. TobraDex ointment was placed in the inferior fornix. The patient was discharged to the Recovery Room having tolerated the procedure well. There were no complications. The patient will be seen tomorrow in the office for follow-up. I attest to the content of the Intraoperative Record and any orders documented therein. Any exceptions are noted below.
--- NOTE | 2017-01-18 10:07 | Anesthesia Progress Nt - [facility] ---
Anesthesia Post Op Note Date & Time Jan 18, 2017 at 10:06 Vital Signs Pain Intensity: 0 Vital Signs Past 12 Hours Date Time Temp Pulse Resp B/P Pulse Ox O2 Delivery O2 Flow Rate FiO2 01/18/17 08:37 36.7 100 20 124/84 96 Room Air Notes Mental Status: alert / awake / arousable, participated in evaluation Pt Amnestic to Procedure: Yes Nausea / Vomiting: adequately controlled Pain: adequately controlled Airway Patency, RR, SpO2: stable & adequate BP & HR: stable & adequate Hydration State: stable & adequate Anesthetic Complications: no major complications apparent
[2017-01-18 10:22] VITALS: BP 152/88; PULSE 92; O2SAT 95
== END | disposition home or self-care (01) ==
LOC: X.SURG 08:17
PROVIDERS: ATTEND Ophthalmology
DX: H26.9 Unspecified cataract (principal); J44.9 Chronic obstructive pulmonary disease, unspecified; E78.5 Hyperlipidemia, unspecified; E11.9 Type 2 diabetes mellitus without complications; I10 Essential (primary) hypertension; K21.9 Gastro-esophageal reflux disease without esophagitis; F17.200 Nicotine dependence, unspecified, uncomplicated; E55.9 Vitamin D deficiency, unspecified; I73.9 Peripheral vascular disease, unspecified; E66.9 Obesity, unspecified; Z68.41 Body mass index [BMI] 40.0-44.9, adult; Z86.010 Personal history of colon polyps

== ENCOUNTER → 2017-02-08 | Day surgery (SDC) | payer OTHER ==
[2017-02-01 13:02] VITALS: Ht 167.6 cm; Wt 104.5 kg
[~2017-02-08] VITALS: Ht 167.6 cm; Wt 104.5 kg
[~2017-02-08] MED LIST changes: -PHENYLEPHRINE HCL 10% OP SOLN PER DROP CHARGE OPL SCH; +PHENYLEPHRINE HCL 10% OP SOLN PER DROP CHARGE OPR SCH; -PROPARACAINE 0.5% OP SOLN PER DROP CHARGE OPL SCH; +PROPARACAINE 0.5% OP SOLN PER DROP CHARGE OPR SCH; -ZOLP5TAB6 PO
[2017-02-08] MEDS: PHENYLEPHRINE HCL 2.5% OP SOLN PER DROP CHARGE OPR SCH ×2 (07:28→07:33)
[2017-02-08] MEDS: TROPICAMIDE 1% OP SOLN PER DROP CHARGE OPR SCH ×2 (07:29→07:34)
[2017-02-08] MEDS: CYCLOPENTOLATE HCL 1% OP SOLN PER DROP CHARGE OPR SCH ×2 (07:30→07:35)
[2017-02-08] MEDS: KETOROLAC 0.5% OP SOLN PER DROP CHARGE OPR SCH ×2 (07:31→07:36)
[2017-02-08] MEDS: GATIFLOXACIN OP SOLN PER DROP CHARGE OPR SCH ×2 (07:32→07:45)
--- NOTE | 2017-02-08 08:37 | Discharge Instructions-SurgCtr ---
Discharge Instructions Date of Service February 08, 2017. Visit Reason for Visit: Cataract Right Eye Discharge Discharge Diagnosis / Problem: cataract Discharge Goals Goal(s): Improve function Medications Stopped Medications Name(s): Metformin stopped Tuesday Activity Recommendations Activity Limitations: per Instructions/Follow-up section Anesthesia . Post Anesthesia Instructions: If you have had General Anesthesia or IV Sedation: * Do not drive today. * Resume driving when surgeon permits. * Do not make important decisions or sign legal documents today. * Call surgeon for: 1. Temperature elevations greater than 101 degrees F. 2. Uncontrollable pain. 3. Excessive bleeding. 4. Persistent nausea and vomiting. 5. Medication intolerance (nausea, vomiting or rash). * For nausea and vomiting use only clear liquids such as: tea, soda, bouillon until nausea subsides, then gradually increase diet as tolerated. * If you have any concerns or questions, call your surgeon's office. If physician is unavailable and it is an emergency, call 911 or go to the nearest emergency room. . Instructions / Follow-Up Instructions / Follow-Up ACTIVITY RECOMMENDATIONS: * No strenuous lifting, jogging or running for 4 days * No swimming or yard work for 1 week. * Limited bending is permitted, such as putting on shoes. RETURN TO SCHOOL/WORK: No work until seen by physician in office. MEDICATIONS: Resume previous medications unless instructed otherwise by your surgeon. This includes eye drops for glaucoma. Zymaxid/Gatifloxacin (tello cap) - one drop every 2 hours until bedtime Nevanac/Ilevro/Prolensa/Ketorolac (haile cap) - one drop every 4 hours until bedtime Prednisolone (white/pink cap, SHAKE WELL) - one drop every 2 hours until bedtime Starting tomorrow - all 3 drops every 4 hours until seen in the office Optive drops - as needed for discomfort SPECIAL CARE INSTRUCTIONS: * Wear eyeshield when sleeping, for four nights. * You may wear your own glasses or sunglasses while awake. * You may read or watch TV * You may shower and wash your face, but be gentle around the eye and pat dry. * Blurry vision and mild irritation are normal. * Call office if pain is more severe or vision becomes dark at . FOLLOW UP VISIT: Follow-up with Dr Morse tomorrow. Diet Recommendations Home Diet: resume previous diet Procedures Procedures Performed: Right Cataract Phacoemulsification With Intraocular Lens Implant Pending Studies Studies pending at discharge: no Medical Emergencies . Who to Call and When: Medical Emergencies: If at any time you feel your situation is an emergency, please call 911 immediately. . Non-Emergent Contact Non-Emergency issues call your: Resident Care Associate . . "Provider Documentation" section prepared by Bryce Morse. .
[2017-02-08 08:38] VITALS: TEMP 36.4
--- NOTE | 2017-02-08 08:38 | [facility] Operative Report ---
Operative Report Date of Service February 08, 2017. Operative Report 1. PREOPERATIVE DIAGNOSIS: Cataract of the right eye. 2. POSTOPERATIVE DIAGNOSIS: Same. 3. PROCEDURE: Phacoemulsification with intraocular lens implantation of the right eye. SURGEON: Dr. Bryce Morse. ANESTHESIA: Topical Lidocaine gel, 1% Non- Preserved intracameral Lidocaine, and monitored intravenous sedation. INDICATIONS FOR THE PROCEDURE: The patient is a 71 - year-old male with a history of cataract of the right eye causing significant visual impairment. The details of the proposed procedure were explained to the patient who asked appropriate questions and following discussion of all risks, benefits and alternatives agreed to have the procedure done. The patient had a know history of taking of flomax. 4. OPERATION AND FINDINGS: DESCRIPTION OF PROCEDURE: After informed consent was obtained, the patient was brought to the Operating Room at the [facility]. The patient was placed in a supine position and then the right eye was prepped and draped in the usual sterile fashion for intraocular surgery. A drop of topical Lidocaine gel was placed in the operative eye. A wire lid speculum was then placed in the fornices. A corneal paracentesis was then created temporally. The Non-Preserved Lidocaine was then instilled into the anterior chamber. Epinephrine with a 1:4 dilution was instilled into the anterior chamber. The anterior chamber was then pressurized with viscoelastic. A 2.0 mm clear corneal incision was then created temporally. A cystotome was inserted into the anterior chamber and used to create a tear in the anterior lens capsule. This capsular tear was then used to create a small flap and the flap was dragged in a counterclockwise direction in order to create a continuous curvilinear capsulorrhexis. Hydrodissection was accomplished with balanced salt solution. Phacoemulsification of the lens nucleus was then performed in a standard [id number] technique. The phaco time was 21 seconds with an average power of 11 %. The remaining cortical material was removed using irrigation aspiration. The capsular bag was then filled with viscoelastic. A Bausch & Lomb MI60L +23.0 diopters lens was then loaded into the injector and injected into the capsular bag. The remaining viscoelastic was removed with the irrigation aspiration handpiece. The wound was hydrated and then checked and found to be watertight. The intraocular pressure was checked and found to be adequate. The wire lid speculum was removed and the patient's face was cleaned and dried. TobraDex ointment was placed in the inferior fornix. The patient was discharged to the Recovery Room having tolerated the procedure well. There were no complications. The patient will be seen tomorrow in the office for follow-up. I attest to the content of the Intraoperative Record and any orders documented therein. Any exceptions are noted below.
--- NOTE | 2017-02-08 08:49 | Anesthesiology Progress Note ---
Anesthesia Post Op Note Date & Time February 08, 2017 at 08:49 Vital Signs Pain Intensity: 0 Vital Signs Past 12 Hours Date Time Temp Pulse Resp B/P Pulse Ox O2 Delivery O2 Flow Rate FiO2 02/08/17 08:38 36.4 89 16 146/89 95 Room Air 02/08/17 07:20 36.4 94 20 138/92 95 Room Air Notes Mental Status: alert / awake / arousable, participated in evaluation Pt Amnestic to Procedure: Yes Nausea / Vomiting: adequately controlled Pain: adequately controlled Airway Patency, RR, SpO2: stable & adequate BP & HR: stable & adequate Hydration State: stable & adequate Anesthetic Complications: no major complications apparent
[2017-02-08 08:57] VITALS: BP 158/81; PULSE 86; O2SAT 95
== END | disposition home or self-care (01) ==
LOC: X.SURG 07:00
PROVIDERS: ATTEND Ophthalmology
DX: H26.9 Unspecified cataract (principal); J44.9 Chronic obstructive pulmonary disease, unspecified; E11.36 Type 2 diabetes mellitus with diabetic cataract; I10 Essential (primary) hypertension; I48.91 Unspecified atrial fibrillation; E66.9 Obesity, unspecified; Z88.0 Allergy status to penicillin; F17.200 Nicotine dependence, unspecified, uncomplicated; Z90.49 Acquired absence of other specified parts of digestive tract

== ENCOUNTER 2017-04-30 11:43 | Emergency (ER) | payer OTHER ==
[~2017-04-30] VITALS: Ht 170.2 cm; Wt 104.0 kg
[~2017-04-30 11:43] MED LIST changes: -500ML BSS 0.3ML EPI 1:1000PF IRRIG ONE; -ACETAMINOPHEN 325 MG TAB PO PRN; -ALBU18002 INH; -AMVISC PLUS 0.8ML SYRINGE INT OCU ONE; -ATROPINE SULFATE 0.1 MG/ML 5ML SYR IV PRN; -BSS FLUSH ONE; -CANA1TAB PO; -CLIN150C PO; -CLIN150C15 PO; -CLIN300C2 PO; -EpHEDrine SULFATE INJ 50 MG/ML AMP IV PRN; -EpINEphrine INJ 1MG/ML AMP 1 MG/ML AMP ONE; -FINA5TAB PO; -LACTATED RINGER'S 1000ML 500 ML IV SCH; -LIDOCAINE 3.5% OPH GEL PER APPLICATION CHARGE ONE; -LIDOCAINE HCL 1% MPF 2 ML VIAL ONE; -MIDAZOLAM HCL 1 MG/ML 2ML VIAL ONE; -MIX: 4ML BSS 1ML EPI 1:1000 PF INSTIL ONE; -OCUCOAT 1 ML SOLN IO ONE; -PHENYLEPHRINE HCL 10% OP SOLN PER DROP CHARGE OPR SCH; -POVIDONE-IODINE OP SOLN 30 ML BTL ONE; -PRED20TA PO; -PROPARACAINE 0.5% OP SOLN PER DROP CHARGE OPR SCH; -SACC250C3 PO; -TOBRAMYCIN/DEXAMETHASONE OPH OINT PER APPLN CHARGE ONE
[2017-04-30 11:53] VITALS: TEMP 36.5; Ht 170.2 cm; Wt 104.0 kg
--- NOTE | 2017-04-30 12:17 | EMERGENCY ROOM VISIT NOTE ---
History Report prepared by Kristinaibxi: Dayami Salgado Under the Supervision of: Dr. Fco Bañuelos M.D. First contact with patient: 12:04 Chief Complaint: WOUND INFECTION Stated Complaint: LEG BLISTER Nursing Triage Summary: Had two smaller blisters on left can area and they went away by themselves. Today the blister is much larger. Due to hx of diabetes, pt is seeking evaluation. Denies pain to left leg. History of Present Illness The patient is a 72 year old male who presents to the Emergency Room with complaints of a worsening wound infection. He is accompanied by his daughter. Approximately 1 week ago, he noticed 2 small blisters on his left can, but they eventually resolved. He denies any recent injury or trauma to the area. Last night, he developed a large blister on the left can that continues to increase in size. He denies any pain or discomfort in the area. He has never experienced this type of lesion before. The patient is an insulin dependent type 2 diabetic. He takes daily Metformin. His daughter reports the patient has a history of osteomyelitis in his right foot back in 2013. He underwent 2 different surgeries to clean out the area, both performed by Dr. Gardner at [facility], and was on IV antibiotics for 6 months. The patient denies any history of autoimmune diseases. He denies any recent fevers, chills, cold symptoms, nausea, or vomiting. Source of History: patient Onset: last night Position: leg (left) Symptom Intensity: 0/10 Timing: worsening Associated Symptoms: No fevers, No chills, No nausea, No vomiting Review of Systems See HPI for pertinent positives and negatives. A total of ten systems were reviewed and were otherwise negative. 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) (6) COPD (chronic obstructive pulmonary disease) (7) Diabetes mellitus type 2 (8) Emphysema (9) Gastroesophageal reflux disease (10) Heart failure (11) Hyperlipidemia (12) Hypertensive heart disease (13) Hypotension (14) Knee pain (15) Tobacco user Surgical Problems: (1) Hx of tonsillectomy (2) S/P cervical spinal fusion Family History Diabetes mellitus FHx: cancer FHx: gallbladder disease FHx: lung disease Hypertension Social History Smoking Status: Current Every Day Smoker Alcohol Use: none Drug Use: none Marital Status: Housing Status: lives with family Occupation Status: disabled Current/Historical Medications Scheduled Ascorbic Acid (Ascorbic Acid), 500 MG PO QAM Aspirin Enteric Coated (Ecotrin Or Generic), 81 MG PO QAM B Complex W/ C (B-Complex +C), 1 TAB PO QAM Carvedilol (Coreg), 6.25 MG PO BID Celecoxib (CeleBREX), 200 MG PO BID Cholecalciferol (Vitamin D), 5,000 UNITS PO QAM Clindamycin Hcl (Clindamycin Hcl), 3 CAP PO QID Digoxin (Digoxin), 0.125 MG PO QAM Fluticasone Prop/Salmeterol (Advair Diskus 250/50 60 Dose), 1 PUFF INH BID Gabapentin (Neurontin), 300 MG PO TID Glimepiride (Glimepiride), 1 TAB PO QAM Lisinopril/Hctz (Zestoretic 20MG/25MG), 1 TAB PO QAM Lovastatin (Mevacor), 10 MG PO HS Metformin Hcl (Glucophage), 1,000 MG PO BID Multivitamins/Minerals (Mvi With Minerals), 1 TAB PO QAM Niacin Ext Rel (Niaspan Ext Rel), 1,000 MG PO BID Omeprazole (Prilosec), 40 MG PO QAM Saccharomyces Boulardii (Florastor), 1 CAP PO BID Tamsulosin Hcl (Flomax), 0.4 MG PO HS Scheduled PRN Albuterol Sulfate (Proair Respiclick), 2 PUFFS INH UD PRN for SOB/Wheezing Oxycodone Immediate Rel Tab (Roxicodone Ir), 10 MG PO Q6H PRN for Severe Pain Allergies Coded Allergies: Penicillins (Verified Allergy, Intermediate, RASH, 04/30/17) Physical Exam Vital Signs Date Time Temp Pulse Resp B/P (MAP) Pulse Ox O2 Delivery O2 Flow Rate FiO2 04/30/17 17:30 73 19 97/61 95 04/30/17 15:11 81 20 133/81 93 Room Air 04/30/17 11:53 36.5 94 20 160/76 96 Room Air Physical Exam GENERAL: Awake, alert, well-appearing, in no distress HENT: Normocephalic, atraumatic. Oropharynx unremarkable. EYES: Normal conjunctiva. Sclera non-icteric. NECK: Supple. No nuchal rigidity. FROM. No JVD. RESPIRATORY: Clear to auscultation. CARDIAC: Regular rate, normal rhythm. Extremities warm and well perfused. Pulses equal. ABDOMEN: Soft, non-distended. No tenderness to palpation. No rebound or guarding. No masses. RECTAL: Deferred. MUSCULOSKELETAL: Chest examination reveals no tenderness. The back is symmetrical on inspection without obvious abnormality. There is no CVA tenderness to palpation. No joint edema. LOWER EXTREMITIES: Thin blistering of 5 cm area of fluctuance in the anterior lower, left leg, with no significant induration, no warmth, no erythema, no crepitus. There is 1+ pitting edema bilaterally. Pulses are intact, distal motor and sensory are intact. NEURO: Normal sensorium. No sensory or motor deficits noted. SKIN: No rash or jaundice noted. Medical Decision & Procedures ER Provider Diagnostic Interpretation: Bedside US of the Left Leg: Positive cobblestoning, no signs of gas or air. Radiology results as stated below per my review and radiologist interpretation: LEFT TIBIA/FIBULA 2 VIEWS ROUTINE CLINICAL HISTORY: Right leg pain soft tissue lesion. Evaluate for osseous involvement. COMPARISON: None. DISCUSSION: Osteoarthritic changes are present within the knee. There are no acute fractures. There is no conventional radiographic evidence of osteomyelitis. There are nonaggressive linear parosteal calcifications at the mid tibial level anteriorly. There is anterior soft tissue lesion at the mid tibial level. IMPRESSION: 1. No acute fractures 2. Anterior pretibial soft tissue lesion 3. No evidence of osteomyelitis Electronically signed by: Justin Israel M.D. 04/30/2017 12:48 PM Laboratory Results 04/30/17 12:15 Red Blood Count 5.15, Mean Corpuscular Volume 93.0, Mean Corpuscular Hemoglobin 30.9, Mean Corpuscular Hemoglobin Concent 33.2, Mean Platelet Volume 11.1, Neutrophils (%) (Auto) 66.9, Lymphocytes (%) (Auto) 25.4, Monocytes (%) (Auto) 5.3, Eosinophils (%) (Auto) 1.4, Basophils (%) (Auto) 0.5, Neutrophils # (Auto) 5.84, Lymphocytes # (Auto) 2.21, Monocytes # (Auto) 0.46, Eosinophils # (Auto) 0.12, Basophils # (Auto) 0.04 04/30/17 12:15 Test 04/30/17 12:15 White Blood Count 8.71 K/uL (4.8-10.8) Red Blood Count 5.15 M/uL (4.7-6.1) Hemoglobin 15.9 g/dL (14.0-18.0) Hematocrit 47.9 % (42-52) Mean Corpuscular Volume 93.0 fL (80-100) Mean Corpuscular Hemoglobin 30.9 pg (25-34) Mean Corpuscular Hemoglobin Concent 33.2 g/dl (32-36) Platelet Count 187 K/uL (130-400) Mean Platelet Volume 11.1 fL (7.4-10.4) Neutrophils (%) (Auto) 66.9 % Lymphocytes (%) (Auto) 25.4 % Monocytes (%) (Auto) 5.3 % Eosinophils (%) (Auto) 1.4 % Basophils (%) (Auto) 0.5 % Neutrophils # (Auto) 5.84 K/uL (1.4-6.5) Lymphocytes # (Auto) 2.21 K/uL (1.2-3.4) Monocytes # (Auto) 0.46 K/uL (0.11-0.59) Eosinophils # (Auto) 0.12 K/uL (0-0.5) Basophils # (Auto) 0.04 K/uL (0-0.2) RDW Standard Deviation 49.6 fL (36.4-46.3) RDW Coefficient of Variation 14.6 % (11.5-14.5) Immature Granulocyte % (Auto) 0.5 % Immature Granulocyte # (Auto) 0.04 K/uL (0.00-0.02) Erythrocyte Sedimentation Rate 39 mm/hr (0-14) Anion Gap 7.0 mmol/L (3-11) Est Creatinine Clear Calc Drug Dose 85.9 ml/min Estimated GFR () 97.3 Estimated GFR (Non- 84.0 BUN/Creatinine Ratio 21.7 (10-20) Calcium Level 9.2 mg/dl (8.5-10.1) C-Reactive Protein 1.14 mg/dl (0-0.29) Beta-Hydroxybutyric Acid 2.95 mg/dL (0.2-2.81) Laboratory results reviewed by me Medications Administered Medications (Trade) Dose Ordered Sig/Katherine Route Start Time Stop Time Status Last Admin Dose Admin Clindamycin Phosphate 900 mg/ Dextrose 106 ml @ 106 mls/hr NOW ONCE IV 04/30/17 16:00 04/30/17 16:59 DC 04/30/17 16:00 106 MLS/HR ED Course 1206: The patient was evaluated in room B3B. A complete history and physical exam was performed. 1435: I reevaluated the patient. He is resting comfortably. I discussed my recommendation he remain in the hospital for further evaluation and management and he and his daughter verbalized complete understanding and agreement. 1449: I discussed the patients case with Dr. Alamo, [facility] Hospitalist. The patient will be further evaluated. 1510: Cefepime HCl 2000 mg/Dextrose 122.6 @ 200 mls/hr IV, Flagyl 500 mg IV, Vancomycin HCl 2000 mg/NSS 540 ml @ 200 mls/hr IV. 1525: Nursing informed me the patient would like to go home. 1600: Clindamycin Phosphate 900 mg/Dextrose 106 ml @ 106 mls/hr IV. 1640: I reevaluated the patient. He is feeling well. I discussed his results and discharge instructions and he verbalized complete understanding and agreement. Medical Decision I reviewed the patient's past medical history, medications, and the nursing notes as described above. The differential diagnoses considered include abscess, cellulitis, gas gangrene , osteomyelitis and possible pemphigus vulgaris. The patient is a 72 gentleman with a pmhx of DM, prior osteomyelitis with right foot who presents to the ED with worsening left lower leg blistering and redness per HPI. On arrival the patient is in NAD, AFVSS. Exam of lower leg shows 5cm area of blistering with surrounding erythema/edema. No crepitus. Bedside US negative for abscess or air/gas but with cobblestoning of soft tissue c/w cellulitis. Xray negative osseous involvement. WBC wnl. ESR and CRP elevated concerning for evolving infection. Considering the patient's h/o osteo in the setting of his uncontrolled DM I d/w patient option for hospital observation for IV abx vs discharge to oral abx and close f/u. Patient initally agreeable admission/observation however admitting team met with patient and he changed his mind preferring discharge. Considering the patient appears reliable and will have close f/u this option is reasonable. Patient given RX for clinda with inital IV dose given in ED. Patient agreeable with plan and d/c per instructions. Medication Reconcilliation Current Medication List: was personally reviewed by me Blood Pressure Screening Patient's blood pressure: Elevated blood pressure Blood pressure disposition: Elevated BP felt to be situational Consults Time Called: 1445 Consulting Physician: Amor [facility] Hospitalist Returned Call: [phone] I discussed the patients case with Amor Phillip Hospitalist. The patient will be further evaluated. Impression Primary Impression: Cellulitis Scribe Attestation The scribe's documentation has been prepared under my direction and personally reviewed by me in its entirety. I confirm that the note above accurately reflects all work, treatment, procedures, and medical decision making performed by me. Departure Information Dispostion Being Evaluated By Hospitalist Prescriptions Saccharomyces Boulardii (Florastor) 250 Mg Cap 1 CAP PO BID for 14 Days, #28 CAP Prov: Fco Bañuelos M.D. 04/30/17 Clindamycin Hcl (CLINDAMYCIN HCL) 150 Mg Cap 3 CAP PO QID for 10 Days, #120 CAP Prov: Fco Bañuelos M.D. 04/30/17 Referrals Mohan Perry M.D. (PCP) Patient Instructions Cellulitis Dc, My [facility], Osteomyelitis Dc Additional Instructions Please follow up with your primary care physician on Tuesday. You have a skin infection in your leg but there were no signs of bone involvement at this time. Your white blood cells were normal but your inflammatory markers were elevated. You were given the option for admission however you preferred discharge and close follow-up with your doctor. Take antibiotics as directed and probiotic to help prevent antibiotic associated diarrhea. Return to the emergency department for worsening symptoms as described in the accompanying instructions.
[2017-04-30 12:42] LABS: BASO % 0.5 %; BASO ABS # 0.04 K/uL (0-0.2); COMPLETE YES; EOS % 1.4 %; HEMATOCRIT 47.9 % (42-52); IG% 0.5 %; LYMPH % 25.4 %; LYMPH ABS # 2.21 K/uL (1.2-3.4); MEAN CORPUSCULAR HEMOGLOBIN 30.9 pg (25-34); MEAN CORPUSCULAR HGB CONC 33.2 g/dl (32-36); MEAN PLATELET VOLUME 11.1 fL (7.4-10.4); MONO % 5.3 %; NEUT % 66.9 %; PLATELET COUNT 187 K/uL (130-400); RED BLOOD COUNT 5.15 M/uL (4.7-6.1); WHITE BLOOD COUNT 8.71 K/uL (4.8-10.8)
--- NOTE | 2017-04-30 12:49 | DIAGNOSTIC IMAGING REPORT ---
LEFT TIBIA/FIBULA 2 VIEWS ROUTINE CLINICAL HISTORY: Right leg pain soft tissue lesion. Evaluate for osseous involvement. COMPARISON: None. DISCUSSION: Osteoarthritic changes are present within the knee. There are no acute fractures. There is no conventional radiographic evidence of osteomyelitis. There are nonaggressive linear parosteal calcifications at the mid tibial level anteriorly. There is anterior soft tissue lesion at the mid tibial level. IMPRESSION: 1. No acute fractures 2. Anterior pretibial soft tissue lesion 3. No evidence of osteomyelitis Electronically signed by: Justin Israel M.D. 04/30/2017 12:48 PM Dictated Date/Time: 04/30/2017 12:45 PM
[2017-04-30 12:55] LABS: BUN/CREATININE RATIO 21.7 (10-20); CALCIUM 9.2 mg/dl (8.5-10.1); CREATININE 0.92 mg/dl (0.60-1.40)
[2017-04-30 12:57] LABS: C-REACTIVE PROTEIN 1.14 mg/dl (0-0.29)
[2017-04-30 13:04] LABS: BETA-HYDROXYBUTYRATE 2.95 mg/dL (0.2-2.81)
[2017-04-30] MEDS ORDERED: ALBU18002 INH (13:53)
[2017-04-30] MEDS ORDERED: VANCOMYCIN INJ 2,000 MG in SODIUM CHLORIDE 0.9% 500ML 500 ML IV STA (15:10)
[2017-04-30] MEDS ORDERED: SODIUM CHLORIDE 0.9% 1000ML 1,000 ML IV STA (15:10)
[2017-04-30] MEDS ORDERED: CEFEPIME IV 2,000 MG in DEXTROSE 5% 100ML 100 ML IV STA (15:10)
[2017-04-30] MEDS ORDERED: METRONIDAZOLE 500MG / 100ML NSS IV STA (15:10)
[2017-04-30] MEDS ORDERED: CLINDAMYCIN 600 MG/54 ML D5W IV STA (15:35)
--- NOTE | 2017-04-30 15:43 | Medical Consult ---
Consultation Date of Consultation: Apr 30, 2017. Attending Physician: Reason for Consultation: Left can blister/cellulitis History of Present Illness Patient is a 72 yo male who presented to the hospital for complaints of left can blister that he first noticed yesterday, but has gotten larger since then. He states a week ago he had 2-3 small blisters which ruptured spontaneously but then this larger blister appeared yesterday just distal to the others. He states his legs are always red and swollen and actually believes the swelling is better today. He denies any injury to the area and states he has no pain or discomfort with the wound. No other complaints noted. Past Medical/Surgical History Medical Problems: (1) Cellulitis Status: Acute Family History Diabetes mellitus FHx: cancer FHx: gallbladder disease FHx: lung disease Hypertension Social History Smoking Status: Current Every Day Smoker Drug Use: none Marital Status: Housing Status: lives with family Occupation Status: disabled Allergies Coded Allergies: Penicillins (Verified Allergy, Intermediate, RASH, 04/30/17) Current Inpatient Medications Current Inpatient Medications Medications (Trade) Dose Ordered Sig/Katherine Route Start Time Stop Time Status Last Admin Dose Admin Vancomycin HCl 2000 mg/Sodium Chloride 540 ml @ 200 mls/hr ONE STAT IV 04/30/17 15:10 04/30/17 17:51 Cefepime HCl 2000 mg/Dextrose 122.6 ml @ 200 mls/hr NOW STAT IV 04/30/17 15:10 04/30/17 15:46 Sodium Chloride 1,000 ml @ 125 mls/hr Q8H STAT IV 04/30/17 15:10 04/30/17 23:09 Review of Systems Constitutional: No fever, No chills, No sweats, No weight loss, No fatigue Eyes: No worsening of vision, No eye pain, No redness, No diplopia ENT: No hearing loss, No nasal symptoms, No sore throat, No trouble swallowing Respiratory: No cough, No sputum, No wheezing, No shortness of breath Cardiovascular: + edema, No chest pain, No claudication, No palpitations Abdomen: No pain, No nausea, No vomiting, No diarrhea Musculoskeletal: No joint pain, No muscle pain, No calf pain Genitourinary - Male: + urinary frequency, No hematuria, No dysuria, No urinary urgency Neurologic: No memory loss, No weakness, No vertigo Psychiatric: No problem reported Endocrine: No problem reported Hematologic / Lymphatic: No problem reported Integumentary: + problem reported (blister on left can) Physical Exam Date Time Temp Pulse Resp B/P (MAP) Pulse Ox O2 Delivery O2 Flow Rate FiO2 04/30/17 15:11 81 20 133/81 93 Room Air 04/30/17 11:53 36.5 94 20 160/76 96 Room Air General Appearance: WD/WN, no apparent distress Head: normocephalic, atraumatic Eyes: PERRL, EOMI, sclerae normal ENT: hearing grossly normal Neck: supple, no JVD, no carotid bruits, trachea midline Respiratory/Chest: chest non-tender, lungs clear, normal breath sounds, no respiratory distress Cardiovascular: regular rate, rhythm, no JVD, no murmur, normal peripheral pulses Abdomen/GI: normal bowel sounds, non tender, soft, no organomegaly Extremities/Musculoskelatal: no calf tenderness, non-tender, + pedal edema, + swelling, + pertinent finding (left distal can with intact blister, non purulent, stasis skin changes to bilateral can noted ) Neurologic/Psych: no motor/sensory deficits, alert, normal mood/affect, oriented x 3 Skin: normal color, warm/dry Laboratory Results Last 24 Hours Test 04/30/17 12:15 White Blood Count 8.71 K/uL Red Blood Count 5.15 M/uL Hemoglobin 15.9 g/dL Hematocrit 47.9 % Mean Corpuscular Volume 93.0 fL Mean Corpuscular Hemoglobin 30.9 pg Mean Corpuscular Hemoglobin Concent 33.2 g/dl Platelet Count 187 K/uL Mean Platelet Volume 11.1 fL Neutrophils (%) (Auto) 66.9 % Lymphocytes (%) (Auto) 25.4 % Monocytes (%) (Auto) 5.3 % Eosinophils (%) (Auto) 1.4 % Basophils (%) (Auto) 0.5 % Neutrophils # (Auto) 5.84 K/uL Lymphocytes # (Auto) 2.21 K/uL Monocytes # (Auto) 0.46 K/uL Eosinophils # (Auto) 0.12 K/uL Basophils # (Auto) 0.04 K/uL RDW Standard Deviation 49.6 fL RDW Coefficient of Variation 14.6 % Immature Granulocyte % (Auto) 0.5 % Immature Granulocyte # (Auto) 0.04 K/uL Erythrocyte Sedimentation Rate 39 mm/hr Sodium Level 133 mmol/L Potassium Level 4.0 mmol/L Chloride Level 97 mmol/L Carbon Dioxide Level 29 mmol/L Anion Gap 7.0 mmol/L Blood Urea Nitrogen 20 mg/dl Creatinine 0.92 mg/dl Est Creatinine Clear Calc Drug Dose 85.9 ml/min Estimated GFR () 97.3 Estimated GFR (Non- 84.0 BUN/Creatinine Ratio 21.7 Random Glucose 332 mg/dl Calcium Level 9.2 mg/dl C-Reactive Protein 1.14 mg/dl Beta-Hydroxybutyric Acid 2.95 mg/dL Assessment & Plan Left Can Blister: -with possible early developing surrounding cellulitis -treat with PO abx as patient has not yet had a trial of outpatient treatment for this wound; PO cephalosporin or clindamycin -informed patient to leave the blister intact and informed him of the risk for infection should the blister slough off or is tampered with -also discussed with the patient the signs to watch for that could indicate worsening of his wound -[facility] for follow up appointment with Dr. Rodney, they stated they would contact him directly on his cell phone number to schedule an appointment for this upcoming week -x ray confirms soft tissue swelling, no evidence of osteomyelitis -informed patient also of the need to monitor and control blood glucose levels and the effect on wound healing -patient had osteomyelitis on the right foot following wound infection after surgery; would recommend outpatient follow up with wound care clinic for care of this blister although it is superficial, the patient would benefit from their expertise COPD: -stable -not in exacerbation -continue home meds Additional Copies To Mohan Perry M.D.
[2017-04-30] MEDS ORDERED: CLINDAMYCIN IV 900 MG in DEXTROSE 5% 100ML 100 ML IV ONE (16:00)
[2017-04-30] MEDS ORDERED: CLIN150C15 PO (16:49)
[2017-04-30] MEDS ORDERED: SACC250C3 PO (16:53)
[2017-04-30 17:30] VITALS: BP 97/61; PULSE 73; O2SAT 95
[2017-07-05] MEDS ORDERED: CANA1TAB PO (09:00)
== END 2017-04-30 17:22 | disposition home or self-care (01) ==
LOC: C.EDB 11:46
DX: S80.822A Blister (nonthermal), left lower leg, initial encounter (principal); X58.XXXA Exposure to other specified factors, initial encounter; E11.9 Type 2 diabetes mellitus without complications; Z98.890 Other specified postprocedural states; I10 Essential (primary) hypertension; I48.91 Unspecified atrial fibrillation; G60.0 Hereditary motor and sensory neuropathy; J44.9 Chronic obstructive pulmonary disease, unspecified; K21.9 Gastro-esophageal reflux disease without esophagitis; F17.200 Nicotine dependence, unspecified, uncomplicated; Z98.1 Arthrodesis status; Z90.89 Acquired absence of other organs; Z83.3 Family history of diabetes mellitus; Z82.49 Family history of ischemic heart disease and other diseases of the circulatory system; Z79.84 Long term (current) use of oral hypoglycemic drugs; Z79.82 Long term (current) use of aspirin; Z79.899 Other long term (current) drug therapy

== ENCOUNTER 2017-06-19 21:15 | Emergency (ER) | payer OTHER ==
[~2017-06-19] VITALS: Ht 165.1 cm; Wt 105.0 kg
[~2017-06-19 21:15] MED LIST changes: +ALBU18002 INH; +CLIN150C15 PO; -PROAIR HFA INH; +SACC250C3 PO
[2017-06-19 21:18] VITALS: TEMP 36.4; Ht 165.1 cm; Wt 105.0 kg
--- NOTE | 2017-06-19 21:47 | EMERGENCY ROOM VISIT NOTE ---
History Report prepared by Isatu: Edwige Xavier Under the Supervision of: Dr. Nella Seo D.O. First contact with patient: 21:31 Chief Complaint: WOUND INFECTION Stated Complaint: PAINFUL LEFT LEG WOUND History of Present Illness The patient is a 72 year old male who presents to the Emergency Room with complaints of a wound infection on his left lower leg. The patient reports that 5 weeks ago he noticed 3 fluid-filled bubbles on his leg. The patient states that he came to the ED and had tests and labs done, and was placed on Clindamycin for the skin infection. Per his family, the patient's skin looked like it was healing, but then he got a blister. Now his leg has been red, swollen, and painful. He rates the pain at a 5/10. Per his family, the patient was in pain tonight, and he states that he took Oxycodone for pain. The patient also notes a rash on his right arm. The patient denies a history of MRSA and blood clots, but has had VRE. The patient states that he is diabetic and takes baby aspirin daily. Pt denies headache, change in vision, fevers, chest pain, shortness of breath, nausea, vomiting, diarrhea, pain with urination, and melena. Source of History: patient, family Onset: 5 weeks ago Position: leg (left) Symptom Intensity: rated at a 5/10 Quality: other (wound infection ) Associated Symptoms: + rash (right arm ), No fevers, No chest pain, No SOB, No nausea, No vomiting, No melena Review of Systems See HPI for pertinent positives & negatives. A total of 10 systems reviewed and were otherwise negative. 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) (6) COPD (chronic obstructive pulmonary disease) (7) Diabetes mellitus type 2 (8) Emphysema (9) Gastroesophageal reflux disease (10) Heart failure (11) Hyperlipidemia (12) Hypertensive heart disease (13) Hypotension (14) Knee pain (15) Tobacco user Surgical Problems: (1) Hx of tonsillectomy (2) S/P cervical spinal fusion Family History Diabetes mellitus FHx: cancer FHx: gallbladder disease FHx: lung disease Hypertension Social History Smoking Status: Never Smoker Alcohol Use: none Drug Use: none Marital Status: Housing Status: lives with family Occupation Status: disabled Current/Historical Medications Scheduled Ascorbic Acid (Ascorbic Acid), 1,000 MG PO QAM Aspirin Enteric Coated (Ecotrin Or Generic), 81 MG PO QAM B Complex W/ C (B-Complex +C), 1 TAB PO QAM Carvedilol (Coreg), 6.25 MG PO BID Celecoxib (CeleBREX), 200 MG PO BID Cholecalciferol (Vitamin D), 5,000 UNITS PO QAM Clindamycin Hcl (Cleocin), 450 MG PO TID Digoxin (Digoxin), 0.125 MG PO QAM Finasteride (Proscar), 5 MG PO DAILY Fluticasone Prop/Salmeterol (Advair Diskus 250/50 60 Dose), 1 PUFF INH BID Gabapentin (Neurontin), 300 MG PO TID Glimepiride (Glimepiride), 1 TAB PO QAM Lisinopril/Hctz (Zestoretic 20MG/25MG), 1 TAB PO QAM Lovastatin (Mevacor), 10 MG PO HS Metformin Hcl (Glucophage), 1,000 MG PO BID Multivitamins/Minerals (Mvi With Minerals), 1 TAB PO QAM Niacin Ext Rel (Niaspan Ext Rel), 1,000 MG PO BID Omeprazole (Prilosec), 40 MG PO QAM Prednisone (Prednisone), 20 MG PO DAILY Tamsulosin Hcl (Flomax), 0.4 MG PO HS Scheduled PRN Albuterol Sulfate (Proair Respiclick), 2 PUFFS INH UD PRN for SOB/Wheezing Oxycodone Immediate Rel Tab (Roxicodone Ir), 10 MG PO Q6H PRN for Severe Pain Allergies Coded Allergies: Penicillins (Verified Allergy, Intermediate, RASH, 06/21/17) Physical Exam Vital Signs Date Time Temp Pulse Resp B/P (MAP) Pulse Ox O2 Delivery O2 Flow Rate FiO2 06/20/17 00:41 81 119/69 94 06/19/17 23:30 78 18 120/65 93 Room Air 06/19/17 21:18 36.4 91 18 142/76 92 Room Air Physical Exam GENERAL: alert, well appearing, well nourished, no distress, non-toxic, poor dentition EYE EXAM: normal conjunctiva, PERRL and EOM's grossly intact OROPHARYNX: no exudate, no erythema, lips, buccal mucosa, and tongue normal and mucous membranes are moist NECK: supple, no nuchal rigidity, no adenopathy, non-tender LUNGS: Clear to auscultation. Normal chest wall mechanics HEART: no murmurs, S1 normal and S2 normal ABDOMEN: abdomen soft, non-tender, normo-active bowel sounds, no masses, no rebound or guarding. BACK: Back is symmetrical on inspection and there is no deformity, no midline tenderness, no CVA tenderness. SKIN: no rashes and no bruising UPPER EXTREMITIES: upper extremities are grossly normal. LOWER EXTREMITIES: Right lower extremity: chronic deformity of the first and second digits. Left lower extremity: area of increased erythema around mid pre-tibial area with increased warmth, increased edema, and no calf tenderness. Central area appears as if a blister ruptured. No joint effusion. Good pulses distally. Surgical scars that are well-healed and chronic. NEURO EXAM: Normal sensorium, cranial nerves II-XII intact, normal speech, no weakness of arms, no weakness of legs. No drift. Finger to nose intact. Gross sensation intact. Medical Decision & Procedures ER Provider Diagnostic Interpretation: Radiology results have been interpreted by [facility]. US VENOUS LEFT LOWER EXTREMITY: No DVT demonstrated. Soft tissue edema. Laboratory Results 06/19/17 22:15 Red Blood Count 4.93, Mean Corpuscular Volume 94.5, Mean Corpuscular Hemoglobin 32.9, Mean Corpuscular Hemoglobin Concent 34.8, Mean Platelet Volume 11.3, Neutrophils (%) (Auto) 62.3, Lymphocytes (%) (Auto) 28.8, Monocytes (%) (Auto) 6.0, Eosinophils (%) (Auto) 1.8, Basophils (%) (Auto) 0.5, Neutrophils # (Auto) 6.75, Lymphocytes # (Auto) 3.11, Monocytes # (Auto) 0.65, Eosinophils # (Auto) 0.19, Basophils # (Auto) 0.05 06/19/17 22:15 Test 06/19/17 22:15 White Blood Count 10.81 K/uL (4.8-10.8) Red Blood Count 4.93 M/uL (4.7-6.1) Hemoglobin 16.2 g/dL (14.0-18.0) Hematocrit 46.6 % (42-52) Mean Corpuscular Volume 94.5 fL (80-100) Mean Corpuscular Hemoglobin 32.9 pg (25-34) Mean Corpuscular Hemoglobin Concent 34.8 g/dl (32-36) Platelet Count 201 K/uL (130-400) Mean Platelet Volume 11.3 fL (7.4-10.4) Neutrophils (%) (Auto) 62.3 % Lymphocytes (%) (Auto) 28.8 % Monocytes (%) (Auto) 6.0 % Eosinophils (%) (Auto) 1.8 % Basophils (%) (Auto) 0.5 % Neutrophils # (Auto) 6.75 K/uL (1.4-6.5) Lymphocytes # (Auto) 3.11 K/uL (1.2-3.4) Monocytes # (Auto) 0.65 K/uL (0.11-0.59) Eosinophils # (Auto) 0.19 K/uL (0-0.5) Basophils # (Auto) 0.05 K/uL (0-0.2) RDW Standard Deviation 51.1 fL (36.4-46.3) RDW Coefficient of Variation 14.9 % (11.5-14.5) Immature Granulocyte % (Auto) 0.6 % Immature Granulocyte # (Auto) 0.06 K/uL (0.00-0.02) Prothrombin Time 11.1 SECONDS (9.0-12.0) Prothromb Time International Ratio 1.0 (0.9-1.1) Anion Gap 13.0 mmol/L (3-11) Est Creatinine Clear Calc Drug Dose 63.9 ml/min Estimated GFR () 70.6 Estimated GFR (Non- 60.9 BUN/Creatinine Ratio 21.3 (10-20) Calcium Level 9.2 mg/dl (8.5-10.1) Laboratory results per my review. Medications Administered Medications (Trade) Dose Ordered Sig/Katherine Route Start Time Stop Time Status Last Admin Dose Admin Ceftriaxone Sodium (Rocephin Inj) 1 gm NOW STAT IV 06/19/17 23:20 06/19/17 23:22 DC 06/19/17 23:59 1 GM Insulin Human Regular (novoLIN-R U-100 PER UNIT) 2 units NOW STAT IV 06/19/17 23:49 06/19/17 23:50 DC 06/20/17 00:00 2 UNITS ED Course 2130: The patient was evaluated in room B4. A complete history and physical exam was performed. 0: Ordered Rocephin Inj 1 gm IV. 9: Ordered Insulin Human Regular 2 units IV. 2355: I updated the patient. 0010: Upon reevaluation, the patient is feeling better. I discussed the findings and the treatment plan with the patient. He verbalizes agreement and understanding. He was discharged home. Medical Decision Differential diagnosis: Etiologies such as cellulitis, abscess, MRSA infection, DVT, necrotizing fasciitis, dermatitis, drug eruption, as well as others were entertained.. No evidence of dvt, exam and labs not consistent with nec fasc, more likely cellulitis. Pt with poor Dm control. No evidence of DKA. Pt previously responded well to clindamycin. I feel this is reasonable given risk of MRSA despite no prior hx. Discussed close f/u, appt with wound clinic already scheduled for this week. Discussed sx to watch/return for, use of probiotics while on antibiotics, hydration, better DM control, adherence to a DM diet and frequent glucose checks. Pt verbalized understanding of all of this and was agreeable with plan. Medication Reconcilliation Current Medication List: was personally reviewed by me Blood Pressure Screening Patient's blood pressure: Elevated blood pressure Blood pressure disposition: Elevated BP felt to be situational Impression Primary Impression: Cellulitis Additional Impressions: Diabetes mellitus type 2 Hyperglycemia Scribe Attestation The scribe's documentation has been prepared under my direction and personally reviewed by me in its entirety. I confirm that the note above accurately reflects all work, treatment, procedures, and medical decision making performed by me. Departure Information Dispostion Home / Self-Care Referrals Mohan Perry M.D. (PCP) Forms HOME CARE DOCUMENTATION FORM, IMPORTANT VISIT INFORMATION, WORK / SCHOOL INSTRUCTIONS Patient Instructions My [facility] Additional Instructions Please take the antibiotics as prescribed. Please follow up with the wound care clinic as scheduled. Please consider using a probiotic daily while you're taking the antibiotics. Please take your blood sugar daily, adhere to a diabetic diet, drink plenty of water. Please check your blood sugars daily. Please elevate the leg when at rest to help minimize any additional swelling. If the area appears to be getting worse, you have increasing pain or swelling, increasing redness, redness streaking up the leg, worsening numbness or tingling , additional discoloration, fevers or chills, vomiting, or you have any other new concerns, please return the emergency room. Problem Qualifiers Primary Impression: Cellulitis Site of cellulitis: extremity Site of cellulitis of extremity: lower extremity Laterality: left Qualified Codes: L03.116 - Cellulitis of left lower limb
[2017-06-19 22:34] LABS: BASO % 0.5 %; BASO ABS # 0.05 K/uL (0-0.2); COMPLETE YES; EOS % 1.8 %; HEMATOCRIT 46.6 % (42-52); IG% 0.6 %; LYMPH % 28.8 %; LYMPH ABS # 3.11 K/uL (1.2-3.4); MEAN CELL VOLUME 94.5 fL (80-100); MEAN CORPUSCULAR HEMOGLOBIN 32.9 pg (25-34); MEAN CORPUSCULAR HGB CONC 34.8 g/dl (32-36); MEAN PLATELET VOLUME 11.3 fL (7.4-10.4); NEUT % 62.3 %; PLATELET COUNT 201 K/uL (130-400); RED BLOOD COUNT 4.93 M/uL (4.7-6.1); WHITE BLOOD COUNT 10.81 K/uL (4.8-10.8)
[2017-06-19 22:45] LABS: PROTHROMBIN TIME (PATIENT) 11.1 SECONDS (9.0-12.0)
[2017-06-19 23:20] LABS: BUN/CREATININE RATIO 21.3 (10-20); CALCIUM 9.2 mg/dl (8.5-10.1); CREATININE 1.2 mg/dl (0.60-1.40)
[2017-06-19] MEDS ORDERED: CEFTRIAXONE SOD INJ 1 GM ADDVIAL IV STA (23:20)
[2017-06-19 23:30] LABS: POTASSIUM 4.3 mmol/L (3.5-5.1)
[2017-06-19] MEDS ORDERED: NovoLIN-R INSULIN PER UNIT CHARGE IV STA (23:49)
[2017-06-20] MEDS ORDERED: CLIN150C PO (00:09)
[2017-06-20 00:41] VITALS: BP 119/69; PULSE 81; O2SAT 94
--- NOTE | 2017-06-20 07:10 | DIAGNOSTIC IMAGING REPORT ---
LEFT LOWER EXTREMITY VENOUS DOPPLER HISTORY: edema COMPARISON STUDY: None. FINDINGS: There is normal compressibility, flow, and augmentation within the left lower extremity deep venous system. There is calf subcutaneous edema resulting in suboptimal evaluation of the calf veins. IMPRESSION: No DVT within the visualized left lower extremity. Electronically signed by: Mina Buchanan M.D. 06/20/2017 7:09 AM Dictated Date/Time: 06/20/2017 7:08 AM
[2017-06-21] MEDS ORDERED: CLIN150C PO (03:04)
[2017-06-21] MEDS ORDERED: FINA5TAB PO (03:05)
[2017-06-21] MEDS ORDERED: PRED20TA PO (05:02)
[2017-07-05] MEDS ORDERED: CANA1TAB PO (09:00)
== END 2017-06-20 00:30 | disposition home or self-care (01) ==
LOC: C.EDB 21:17
DX: L03.116 Cellulitis of left lower limb (principal); E11.9 Type 2 diabetes mellitus without complications; Z79.82 Long term (current) use of aspirin; I48.91 Unspecified atrial fibrillation; G60.0 Hereditary motor and sensory neuropathy; J44.9 Chronic obstructive pulmonary disease, unspecified; K21.9 Gastro-esophageal reflux disease without esophagitis; E78.5 Hyperlipidemia, unspecified; Z98.1 Arthrodesis status; I50.9 Heart failure, unspecified; I11.0 Hypertensive heart disease with heart failure; Z79.899 Other long term (current) drug therapy

== ENCOUNTER 2017-06-21 02:20 | Emergency (ER) | payer OTHER ==
[~2017-06-21] VITALS: Ht 167.6 cm; Wt 104.5 kg
[~2017-06-21 02:20] MED LIST changes: +CLIN150C PO; -SACC250C3 PO
[2017-06-21 02:27] VITALS: TEMP 37; Ht 167.6 cm; Wt 104.5 kg
[2017-06-21] MEDS ORDERED: ALBUT/IPRATROP 3MG/0.5MG NEB 3 ML VIAL INH STA (03:00)
[2017-06-21] MEDS ORDERED: METHYLPREDNISOLONE 125 MG VIAL IV STA (03:00)
--- NOTE | 2017-06-21 03:03 | EMERGENCY ROOM VISIT NOTE ---
History Report prepared by Isatu: Edwige Xavier Under the Supervision of: Dr. Mercedes Blanc M.D. First contact with patient: 02:43 Chief Complaint: RESPIRATORY PROBLEMS Stated Complaint: BREATHING DIFFICULTY Nursing Triage Summary: pt brought to main ED from home. ALS reports pt has worstening sob tonight, hx copd and afib. pt currently being treated for cellulitis in left lower leg. ALS reports pt was 88% on room air, 97% on 6L NC. ALS attempted a duoneb, reports pt stated it makes breathing worse for him. pt denies cough. c/o sob beginning tonight. pt is a smoker, states "i'm quitting as of today, i'm sick of this." pt alert and oriented x4. pt able to ambulate from stretcher to litter. no edema noted. History of Present Illness The patient is a 72 year old male who presents to the Emergency Room with complaints of worsening respiratory problems beginning 3 hours prior to arrival. He states that he has been short of breath, but denies having a fever. The patient states that he does not have a nebulizer. The patient is currently being treated for cellulitis of his left leg. He reports that he smokes about a pack of cigarettes per day and that he is diabetic. Source of History: patient Onset: 3 hours prior to arrival Position: other (global) Quality: other (respiratory problems ) Timing: worsening Associated Symptoms: + SOB, No fevers Review of Systems See HPI for pertinent positives & negatives. A total of 10 systems reviewed and were otherwise negative. Past Medical & Surgical Medical Problems: (1) ARF (acute renal failure) (2) Atrial fibrillation (3) Benign hypertension (4) Splxzxa-Eyojn-Ephwu disease (5) CMT (Qsacurj-Lbkni-Zoldi disease) (6) COPD (chronic obstructive pulmonary disease) (7) Diabetes mellitus type 2 (8) Emphysema (9) Gastroesophageal reflux disease (10) Heart failure (11) Hyperlipidemia (12) Hypertensive heart disease (13) Hypotension (14) Knee pain (15) Tobacco user Surgical Problems: (1) Hx of tonsillectomy (2) S/P cervical spinal fusion Family History Diabetes mellitus FHx: cancer FHx: gallbladder disease FHx: lung disease Hypertension Social History Smoking Status: Current Every Day Smoker Alcohol Use: none Drug Use: none Marital Status: Housing Status: lives with family Occupation Status: disabled Current/Historical Medications Scheduled Ascorbic Acid (Ascorbic Acid), 1,000 MG PO QAM Aspirin Enteric Coated (Ecotrin Or Generic), 81 MG PO QAM B Complex W/ C (B-Complex +C), 1 TAB PO QAM Carvedilol (Coreg), 6.25 MG PO BID Celecoxib (CeleBREX), 200 MG PO BID Cholecalciferol (Vitamin D), 5,000 UNITS PO QAM Clindamycin Hcl (Cleocin), 450 MG PO TID Digoxin (Digoxin), 0.125 MG PO QAM Finasteride (Proscar), 5 MG PO DAILY Fluticasone Prop/Salmeterol (Advair Diskus 250/50 60 Dose), 1 PUFF INH BID Gabapentin (Neurontin), 300 MG PO TID Glimepiride (Glimepiride), 1 TAB PO QAM Lisinopril/Hctz (Zestoretic 20MG/25MG), 1 TAB PO QAM Lovastatin (Mevacor), 10 MG PO HS Metformin Hcl (Glucophage), 1,000 MG PO BID Multivitamins/Minerals (Mvi With Minerals), 1 TAB PO QAM Niacin Ext Rel (Niaspan Ext Rel), 1,000 MG PO BID Omeprazole (Prilosec), 40 MG PO QAM Prednisone (Prednisone), 20 MG PO DAILY Tamsulosin Hcl (Flomax), 0.4 MG PO HS Scheduled PRN Albuterol Sulfate (Proair Respiclick), 2 PUFFS INH UD PRN for SOB/Wheezing Oxycodone Immediate Rel Tab (Roxicodone Ir), 10 MG PO Q6H PRN for Severe Pain Allergies Coded Allergies: Penicillins (Verified Allergy, Intermediate, RASH, 06/21/17) Physical Exam Vital Signs Date Time Temp Pulse Resp B/P (MAP) Pulse Ox O2 Delivery O2 Flow Rate FiO2 06/21/17 06:32 109 20 112/76 93 06/21/17 05:59 112 18 99/68 93 Room Air 06/21/17 04:44 109 16 112/67 92 Nasal Cannula 2.0 06/21/17 03:55 93 Nasal Cannula 2.0 06/21/17 03:53 89 Room Air 06/21/17 03:00 111 20 133/75 90 Room Air 06/21/17 02:27 92 Room Air 06/21/17 02:27 92 Room Air 06/21/17 02:27 37.0 111 18 152/78 93 Room Air 06/21/17 02:26 110 Physical Exam Vital signs reviewed. General: Chronically-ill male, in no significant distress. Noted to be on room air. HEENT: No scleral icterus, PERRLA, neck supple. Atraumatic. Cardiovascular: Regular rate and rhythm, no extra sounds. Pulmonary: Wheezes throughout bilateral lung graff. Abdomen: Soft, nontender, nondistended, positive bowel sounds. Musculoskeletal: Atraumatic, no peripheral edema. Neurologic: Patient awake alert and oriented x 3, full strength in all 4 extremities. Cranial nerves 2 through 12 grossly intact. Skin: Warm, dry, no rash Medical Decision & Procedures ER Provider Diagnostic Interpretation: Chest X-ray: Mild pulmonary congestion. No focal lung consolidation. No failure. Laboratory Results 06/21/17 02:35 Red Blood Count 5.06, Mean Corpuscular Volume 94.1, Mean Corpuscular Hemoglobin 31.2, Mean Corpuscular Hemoglobin Concent 33.2, Mean Platelet Volume 11.2, Neutrophils (%) (Auto) 86.8, Lymphocytes (%) (Auto) 5.4, Monocytes (%) (Auto) 5.9, Eosinophils (%) (Auto) 1.4, Basophils (%) (Auto) 0.2, Neutrophils # (Auto) 10.67, Lymphocytes # (Auto) 0.66, Monocytes # (Auto) 0.73, Eosinophils # (Auto) 0.17, Basophils # (Auto) 0.03 06/21/17 02:35 Test 06/21/17 02:35 06/21/17 03:09 06/21/17 05:45 White Blood Count 12.30 K/uL (4.8-10.8) Red Blood Count 5.06 M/uL (4.7-6.1) Hemoglobin 15.8 g/dL (14.0-18.0) Hematocrit 47.6 % (42-52) Mean Corpuscular Volume 94.1 fL (80-100) Mean Corpuscular Hemoglobin 31.2 pg (25-34) Mean Corpuscular Hemoglobin Concent 33.2 g/dl (32-36) Platelet Count 177 K/uL (130-400) Mean Platelet Volume 11.2 fL (7.4-10.4) Neutrophils (%) (Auto) 86.8 % Lymphocytes (%) (Auto) 5.4 % Monocytes (%) (Auto) 5.9 % Eosinophils (%) (Auto) 1.4 % Basophils (%) (Auto) 0.2 % Neutrophils # (Auto) 10.67 K/uL (1.4-6.5) Lymphocytes # (Auto) 0.66 K/uL (1.2-3.4) Monocytes # (Auto) 0.73 K/uL (0.11-0.59) Eosinophils # (Auto) 0.17 K/uL (0-0.5) Basophils # (Auto) 0.03 K/uL (0-0.2) RDW Standard Deviation 50.7 fL (36.4-46.3) RDW Coefficient of Variation 14.9 % (11.5-14.5) Immature Granulocyte % (Auto) 0.3 % Immature Granulocyte # (Auto) 0.04 K/uL (0.00-0.02) Anion Gap 11.0 mmol/L (3-11) Est Creatinine Clear Calc Drug Dose 86.5 ml/min Estimated GFR () 99.9 Estimated GFR (Non- 86.2 BUN/Creatinine Ratio 27.4 (10-20) Calcium Level 9.2 mg/dl (8.5-10.1) Total Bilirubin 0.6 mg/dl (0.2-1) Direct Bilirubin 0.2 mg/dl (0-0.2) Aspartate Amino Transf (AST/SGOT) 44 U/L (15-37) Alanine Aminotransferase (ALT/SGPT) 67 U/L (12-78) Alkaline Phosphatase 186 U/L (45-117) Total Protein 7.4 gm/dl (6.4-8.2) Albumin 3.0 gm/dl (3.4-5.0) Bedside Troponin I 0.030 ng/ml (0-0.045) Bedside Glucose 278 mg/dl (70-99) Laboratory results per my review. Medications Administered Medications (Trade) Dose Ordered Sig/Katherine Route Start Time Stop Time Status Last Admin Dose Admin Albuterol/ Ipratropium (Duoneb) 3 ml NOW STAT INH 06/21/17 03:00 06/21/17 03:03 DC 06/21/17 03:10 3 ML Methylprednisolone Sodium Succinate (Solu-Medrol IV) 125 mg NOW STAT IV 06/21/17 03:00 06/21/17 03:03 DC 06/21/17 03:10 125 MG Insulin Human Regular (novoLIN-R U-100 PER UNIT) 6 units NOW STAT SC 06/21/17 03:45 06/21/17 03:46 DC 06/21/17 04:03 6 UNITS Insulin Human Regular (novoLIN-R U-100 PER UNIT) 6 units NOW STAT SC 06/21/17 05:02 06/21/17 05:04 DC 06/21/17 05:08 6 UNITS Oxycodone HCl (Roxicodone Immediate Rel Tab) 10 mg NOW STAT PO 06/21/17 05:50 06/21/17 05:51 DC 06/21/17 05:58 10 MG ECG Indication: SOB/dyspnea Rate (beats per minute): 110 Rhythm: sinus tachycardia Findings: no acute ischemic change, no ectopy ED Course 0258: Past medical records reviewed. The patient was evaluated in room B5. A complete history and physical examination was performed. 0300: Ordered Methylprednisolone Sodium Succinate 125 mg IV, Duoneb 3 ml INH. 0345: Ordered Insulin Human Regular 6 units SC. 0500: Upon reevaluation, the patient appeared to have improvement of his symptoms. I discussed findings with him. He verbalized agreement of the treatment plan. He was discharged home. Medical Decision Differential diagnosis: Etiologies such as infections, reactive airway disease, pneumonia, pneumothorax , COPD, CHF, cardiac ischemia, pulmonary embolism, musculoskeletal, gastrointestinal, as well as others were entertained. This patient was evaluated and appeared to be in no significant distress. IV access was obtained and laboratory work was drawn. The patient was placed on the rn cardiac and found to be in no distress. Patient's oxygenation fluctuates between 89 and 92% on room air. He was given a DuoNeb treatment, he had one in route. Patient was given IV site and Medrol 125 mg. Patient's blood sugar is noted to be elevated. He was given subcutaneous regular insulin 6 units. He did require a second dose for persistent hyperglycemia. I suspect the steroids have made this more difficult to control. The patient seems comfortable with the plan for discharge. I do not think the patient requires hospitalization at this time. He was strongly advised to follow-up with his PCP this week. Patient has an albuterol inhaler and does use Advair. He was strongly advised to stop smoking. He was given low-dose prednisone 20 mg daily for 4 more days. The patient was advised to watch his blood sugars closely and minimize any carbohydrate intake this week. He will return to the ER for worsening of symptoms or any medical concerns. Patient was discharged to care of his daughter. Medication Reconcilliation Current Medication List: was personally reviewed by me Blood Pressure Screening Patient's blood pressure: Elevated blood pressure Blood pressure disposition: Elevated BP felt to be situational Impression Primary Impression: COPD exacerbation Additional Impression: Hyperglycemia Scribe Attestation The scribe's documentation has been prepared under my direction and personally reviewed by me in its entirety. I confirm that the note above accurately reflects all work, treatment, procedures, and medical decision making performed by me. Departure Information Dispostion Home / Self-Care Prescriptions Prednisone (Prednisone) 20 Mg Tab 20 MG PO DAILY, #4 TAB Prov: Mercedes Blanc M.D. 06/21/17 Referrals Mohan Perry M.D. (PCP) Forms HOME CARE DOCUMENTATION FORM, IMPORTANT VISIT INFORMATION, WORK / SCHOOL INSTRUCTIONS Patient Instructions My [facility] Additional Instructions Diagnosis: COPD exacerbation, hyperglycemia Please stop smoking. Prednisone 20 mg daily for 4 more days, start tomorrow. Monitor your blood sugars closely, minimize any carbohydrate intake well on the prednisone. Follow-up with your physician this week for reevaluation. Return to the ER for worsening of symptoms or any medical concerns. Problem Qualifiers
[2017-06-21] MEDS ORDERED: CLIN150C PO (03:04)
[2017-06-21] MEDS ORDERED: FINA5TAB PO (03:05)
[2017-06-21 03:13] LABS: BASO % 0.2 %; BASO ABS # 0.03 K/uL (0-0.2); COMPLETE YES; EOS % 1.4 %; HEMATOCRIT 47.6 % (42-52); IG% 0.3 %; LYMPH % 5.4 %; LYMPH ABS # 0.66 K/uL (1.2-3.4); MEAN CELL VOLUME 94.1 fL (80-100); MEAN CORPUSCULAR HEMOGLOBIN 31.2 pg (25-34); MEAN CORPUSCULAR HGB CONC 33.2 g/dl (32-36); MEAN PLATELET VOLUME 11.2 fL (7.4-10.4); MONO % 5.9 %; NEUT % 86.8 %; PLATELET COUNT 177 K/uL (130-400); RED BLOOD COUNT 5.06 M/uL (4.7-6.1)
[2017-06-21 03:41] LABS: BUN/CREATININE RATIO 27.4 (10-20); CALCIUM 9.2 mg/dl (8.5-10.1); CREATININE 0.9 mg/dl (0.60-1.40)
[2017-06-21] MEDS ORDERED: NovoLIN-R INSULIN PER UNIT CHARGE SC STA ×2 (03:45→05:02)
[2017-06-21 03:55] VITALS: O2SAT 93
[2017-06-21 03:55] LABS: POTASSIUM 4.4 mmol/L (3.5-5.1)
[2017-06-21] MEDS ORDERED: PRED20TA PO (05:02)
[2017-06-21] MEDS ORDERED: OXYCODONE HCL IR 5 MG TAB (IMMEDIATE RELEASE) PO STA (05:50)
[2017-06-21 06:32] VITALS: BP 112/76; PULSE 109; O2SAT 93
--- NOTE | 2017-06-21 06:46 | DIAGNOSTIC IMAGING REPORT ---
CHEST ONE VIEW PORTABLE HISTORY: 72 years-old Male SOB acute shortness of breath with COPD. COMPARISON: Acute abdominal series radiographs 10/29/2016, chest radiograph 11/18/2015. TECHNIQUE: Portable upright AP view of the chest FINDINGS: Cardiomediastinal and hilar silhouettes are within normal limits. There is no pneumothorax or pleural effusion. There is improved aeration of the right lung base from prior study. Hazy right basilar opacity is unchanged from multiple comparisons. Degenerative changes are seen about the shoulders and spine. IMPRESSION: Improved aeration of the right lung base from comparison study. Hazy opacity of the medial right lung base suggest atelectasis or scarring. The above report was generated using voice recognition software. It may contain grammatical, syntax or spelling errors. Electronically signed by: Iván Murphy M.D. 06/21/2017 6:45 AM Dictated Date/Time: 06/21/2017 6:42 AM
[2017-07-05] MEDS ORDERED: CANA1TAB PO (09:00)
== END 2017-06-21 06:32 | disposition home or self-care (01) ==
LOC: EDBD 02:20 → C.EDB 02:21
DX: J44.1 Chronic obstructive pulmonary disease with (acute) exacerbation (principal); I48.91 Unspecified atrial fibrillation; L03.116 Cellulitis of left lower limb; F17.210 Nicotine dependence, cigarettes, uncomplicated; E11.65 Type 2 diabetes mellitus with hyperglycemia; G60.0 Hereditary motor and sensory neuropathy; K21.9 Gastro-esophageal reflux disease without esophagitis; I11.0 Hypertensive heart disease with heart failure; Z98.1 Arthrodesis status; Z83.3 Family history of diabetes mellitus; Z80.9 Family history of malignant neoplasm, unspecified; Z82.49 Family history of ischemic heart disease and other diseases of the circulatory system; Z79.82 Long term (current) use of aspirin; Z79.899 Other long term (current) drug therapy; Z79.84 Long term (current) use of oral hypoglycemic drugs

== ENCOUNTER 2017-11-10 10:25 | Inpatient (IN) | payer OTHER ==
[~2017-11-10] VITALS: Ht 167.6 cm; Wt 97.1 kg
[2017-11-10] VITALS (7 sets, daily range): BP systolic 94–117; BP diastolic 58–74; PULSE 94–108; TEMP 36.6–36.8; O2SAT 91–93; BMI 36.8
[~2017-11-10 10:25] MED LIST changes: +CANA1TAB PO; -CLIN150C PO; -CLIN150C15 PO; +CLIN300C2 PO; +FINA5TAB PO; +PRED20TA PO
[2017-11-10] MEDS ORDERED: ACETAMINOPHEN 325 MG TAB PO ONE (11:15)
[2017-11-10 11:44] LABS: HEMATOCRIT 49.2 % (42-52); HEMOGLOBIN 16.9 g/dL (14.0-18.0); MEAN CELL VOLUME 92.1 fL (80-100); MEAN CORPUSCULAR HEMOGLOBIN 31.6 pg (25-34); MEAN CORPUSCULAR HGB CONC 34.3 g/dl (32-36); MEAN PLATELET VOLUME 11.1 fL (7.4-10.4); PLATELET COUNT 137 K/uL (130-400); RED CELL DISTRIBUTION WIDTH CV 14.9 % (11.5-14.5); WHITE BLOOD COUNT 11.75 K/uL (4.8-10.8)
[2017-11-10] MEDS ORDERED: MELA1TAB5 PO (11:46)
--- NOTE | 2017-11-10 11:50 | DIAGNOSTIC IMAGING REPORT ---
CHEST ONE VIEW PORTABLE HISTORY: 72 years-old Male Sepsis acute sepsis. COMPARISON: Chest radiograph 06/21/2017, acute abdominal series radiographs 10/29/2016, chest radiograph 11/18/2015 TECHNIQUE: Portable AP view of the chest FINDINGS: Cardiomediastinal and hilar silhouettes are within normal limits. There is no pneumothorax. Mild blunting of the right costophrenic angle suggests trace effusion. Hazy subsegmental right basilar opacities are noted. Left lung is generally clear. No overt pulmonary edema. Fusion hardware of the cervical spine is noted. Advanced degenerative changes of the shoulders. IMPRESSION: 1. Subsegmental right basilar opacities suggest atelectasis or pneumonitis. 2. Suspected trace right pleural effusion. The above report was generated using voice recognition software. It may contain grammatical, syntax or spelling errors. Electronically signed by: Iván Murphy M.D. 11/10/2017 11:49 AM Dictated Date/Time: 11/10/2017 11:46 AM
[2017-11-10 11:52] LABS: INR 1.1 (0.9-1.1); PTT PATIENT 29.8 SECONDS (21.0-31.0)
[2017-11-10 11:58] LABS: INFLUENZA A PCR POS for Influ A (NEG); INFLUENZA B PCR Neg for Influ B (NEG)
[2017-11-10 12:03] LABS: CALCIUM 9.3 mg/dl (8.5-10.1); CREATININE 1.28 mg/dl (0.60-1.40); POTASSIUM 4.2 mmol/L (3.5-5.1)
[2017-11-10 12:06] LABS: BASO % 0.3 %; BASO ABS # 0.03 K/uL (0-0.2); IG# 0.03 K/uL (0.00-0.02); LYMPH % 9.9 %; LYMPH ABS # 1.16 K/uL (1.2-3.4); MONO % 11.7 %; MONO ABS # 1.37 K/uL (0.11-0.59); NEUT % 77.8 %; NEUT ABS # 9.16 K/uL (1.4-6.5); TOTAL PROTEIN 7.5 gm/dl (6.4-8.2)
[2017-11-10] MEDS ORDERED: OSELTAMIVIR PHOSPHATE 75 MG CAP PO STA (12:06)
[2017-11-10] MEDS ORDERED: LEVAQUIN 750MG / 150ML D5W IV STA (12:06)
[2017-11-10] MEDS ORDERED: ACETAMINOPHEN 325 MG TAB PO PRN (12:30)
[2017-11-10] MEDS ORDERED: CARVEDILOL 6.25 MG TAB PO ONE (13:54)
[2017-11-10] MEDS ORDERED: CHN/1 PO (14:24)
--- NOTE | 2017-11-10 14:29 | History and Physical ---
History & Physical Date & Time of Service: Nov 10, 2017 at 14:07 Chief Complaint: weakness, fall . Primary Care Physician: Mohan Perry M.D. . History of Present Illness Source: patient, family 72-year-old male followed by Dr. Rodney. History of atrial fibrillation, hypertensive heart disease, hypertension, COPD, diabetes mellitus type 2, and other problems noted below. Became ill about 4 days prior to admission with malaise and cough. He has a chronic cough, but no worse than baseline. Cough is not productive. He experienced some sweats, but no documented fever at home. Progressive weakness over the last 24 hours. He has Kdugwcx-Kjjtp-Uguew, usually ambulatory with cane or walker but spends much of the time in a wheelchair. He fell twice, once when he fell asleep in a wheelchair and slipped out and once when he tried to stand and ambulate. Injured his legs when he fell with abrasions and skin tears. Tried xxgf-hke-aeiaaak cold medicine without relief. 1 of his caretakers recently had a cold. No other sick contacts. . Past Medical/Surgical History Chronic and Resolved Medical Problems: (1) Atrial fibrillation Status: Chronic (2) Benign hypertension Status: Chronic (3) Tzdeynh-Hjwzq-Xszda disease Status: Chronic (4) CMT (Gdgekry-Xkjix-Humym disease) Status: Chronic (5) COPD (chronic obstructive pulmonary disease) Status: Chronic (6) Diabetes mellitus type 2 Status: Chronic (7) Emphysema Status: Chronic (8) Gastroesophageal reflux disease Status: Chronic (10) Hyperlipidemia Status: Chronic (11) Hypertensive heart disease Status: Chronic (12) Tobacco user Status: Chronic Surgical Problems: (1) Hx of tonsillectomy (2) S/P cervical spinal fusion . Family History MOTHER COPD (chronic obstructive pulmonary disease) Coronary artery disease DAUGHTER Imbwkmg-Tfyee-Qbrya disease Social History Smoking Status: Current Every Day Smoker Alcohol Use: none Drug Use: none Marital Status: single Occupational Status: retired Immunizations History of Influenza Vaccine: N/A History of Tetanus Vaccine?: Yes Tetanus Immunization Date: May 16, 2005 History of Pneumococcal: Yes Pneumococcal Date: May 16, 2005 History of Hepatitis B Vaccine: No Hepatitis Immunization Date: Jan 14, 2008 Multi-Drug Resistant Organisms History of MDRO: Yes Type of MDRO: VRE Allergies Coded Allergies: Penicillins (Verified Allergy, Intermediate, RASH, 11/10/17) Home Medications Scheduled Ascorbic Acid (Ascorbic Acid), 500 MG PO QAM Aspirin Enteric Coated (Ecotrin Or Generic), 81 MG PO QAM B Complex W/ C (B-Complex +C), 1 TAB PO QAM Canagliflozin (Invokana), 100 MG PO DAILY Carvedilol (Coreg), 6.25 MG PO BID Celecoxib (CeleBREX), 200 MG PO BID Cholecalciferol (Vitamin D), 5,000 UNITS PO QAM Digoxin (Digoxin), 0.125 MG PO QAM Finasteride (Proscar), 5 MG PO DAILY Fluticasone Prop/Salmeterol (Advair Diskus 250/50 60 Dose), 1 PUFF INH BID Gabapentin (Neurontin), 300 MG PO TID Glimepiride (Glimepiride), 4 MG PO QAM Lisinopril/Hctz (Zestoretic 20MG/25MG), 1 TAB PO QAM Lovastatin (Mevacor), 10 MG PO HS Melatonin (Kp Melatonin), 1 TAB PO HS Metformin Hcl (Glucophage), 1,000 MG PO BID Multivitamins/Minerals (Mvi With Minerals), 1 TAB PO QAM Niacin Ext Rel (Niaspan Ext Rel), 1,000 MG PO BID Omeprazole (Prilosec), 40 MG PO QAM Tamsulosin Hcl (Flomax), 0.4 MG PO HS Varenicline (Chantix), 1 MG PO BID Scheduled PRN Albuterol Sulfate (Proair Respiclick), 2 PUFFS INH UD PRN for SOB/Wheezing Oxycodone Immediate Rel Tab (Roxicodone Ir), 5-10 MG PO Q6H PRN for Severe Pain Review of Systems Constitutional: + fever, + sweats Eyes: No worsening of vision, No diplopia ENT: + sore throat Respiratory: + problem reported (as noted in HPI) Cardiovascular: No chest pain, No edema, No palpitations Abdomen: No pain, No nausea, No vomiting, No diarrhea, No GI bleeding Musculoskeletal: + joint pain (chronic) Genitourinary - Male: No hematuria, No dysuria Endocrine: + fatigue, + problem reported (has not been checking blood sugars), No excessive thirst, No excessive urination Hematologic / Lymphatic: No abnormal bleeding/bruising, No swollen lymph nodes Integumentary: No rash Physical Exam Vital Signs Date Time Temp Pulse Resp B/P (MAP) Pulse Ox O2 Delivery O2 Flow Rate FiO2 11/10/17 13:32 36.7 105 117/67 11/10/17 13:16 108 11/10/17 12:19 94 Nasal Cannula 2.0 11/10/17 12:19 119 22 113/57 92 Nasal Cannula 11/10/17 10:47 38.4 118 22 103/74 93 Room Air 11/10/17 10:39 121 General Appearance: + moderate distress, + obese Head: normocephalic, atraumatic Eyes: PERRL, EOMI, sclerae normal ENT: normal ENT inspection, + pertinent finding (edentulous) Neck: supple, no adenopathy, thyroid normal, trachea midline Respiratory/Chest: no respiratory distress, + pertinent finding (scattered rhonchi, diffuse mild wheezing) Cardiovascular: regular rate, rhythm, no JVD, + tachycardia, + pertinent finding (no murmur, gallop, rub appreciated; trace pretibial edema; pedal pulses diminished; capillary refill to toes less than 2 seconds) Abdomen/GI: normal bowel sounds, non tender, soft, no organomegaly, + pertinent finding (exam limited due to body habitus) Extremities/Musculoskelatal: normal capillary refill, + pertinent finding (CMT deformities of hands and feet) 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/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: 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 nml as tested (PERRL, EOMI, no dysarthria, no facial palsy), alert, oriented x 3, + pertinent finding (generalized weakness) Skin: normal color, no rash, + diaphoresis Lymphatic: no adenopathy (cervical, axillary) Diagnostics Laboratory Results Results Past 24 Hours Test 11/10/17 11:00 11/10/17 11:15 11/10/17 11:26 11/10/17 13:45 Range/Units Influenza Type A (RT-PCR) POS for Influ A NEG Influenza Type B (RT-PCR) Neg for Influ B NEG White Blood Count 11.75 4.8-10.8 K/uL Red Blood Count 5.34 4.7-6.1 M/uL Hemoglobin 16.9 14.0-18.0 g/dL Hematocrit 49.2 42-52 % Mean Corpuscular Volume 92.1 80-100 fL Mean Corpuscular Hemoglobin 31.6 25-34 pg Mean Corpuscular Hemoglobin Concent 34.3 32-36 g/dl Platelet Count 137 130-400 K/uL Mean Platelet Volume 11.1 7.4-10.4 fL Neutrophils (%) (Auto) 77.8 % Lymphocytes (%) (Auto) 9.9 % Monocytes (%) (Auto) 11.7 % Eosinophils (%) (Auto) 0.0 % Basophils (%) (Auto) 0.3 % Neutrophils # (Auto) 9.16 1.4-6.5 K/uL Lymphocytes # (Auto) 1.16 1.2-3.4 K/uL Monocytes # (Auto) 1.37 0.11-0.59 K/uL Eosinophils # (Auto) 0.00 0-0.5 K/uL Basophils # (Auto) 0.03 0-0.2 K/uL RDW Standard Deviation 50.0 36.4-46.3 fL RDW Coefficient of Variation 14.9 11.5-14.5 % Immature Granulocyte % (Auto) 0.3 % Immature Granulocyte # (Auto) 0.03 0.00-0.02 K/uL Prothrombin Time 11.2 9.0-12.0 SECONDS Prothromb Time International Ratio 1.1 0.9-1.1 Activated Partial Thromboplast Time 29.8 21.0-31.0 SECONDS Partial Thromboplastin Ratio 1.1 Sodium Level 131 136-145 mmol/L Potassium Level 4.2 3.5-5.1 mmol/L Chloride Level 94 98-107 mmol/L Carbon Dioxide Level 27 21-32 mmol/L Anion Gap 10.0 3-11 mmol/L Blood Urea Nitrogen 33 7-18 mg/dl Creatinine 1.28 0.60-1.40 mg/dl Est Creatinine Clear Calc Drug Dose 60.5 ml/min Estimated GFR () 65.3 Estimated GFR (Non- 56.3 BUN/Creatinine Ratio 26.0 10-20 Random Glucose 204 70-99 mg/dl Calcium Level 9.3 8.5-10.1 mg/dl Total Bilirubin 0.9 0.2-1 mg/dl Aspartate Amino Transf (AST/SGOT) 160 15-37 U/L Alanine Aminotransferase (ALT/SGPT) 139 12-78 U/L Alkaline Phosphatase 157 45-117 U/L Total Protein 7.5 6.4-8.2 gm/dl Albumin 3.0 3.4-5.0 gm/dl Globulin 4.5 2.5-4.0 gm/dl Albumin/Globulin Ratio 0.7 0.9-2 Bedside Lactic Acid Venous 2.03 0.90-1.70 mmol/L Microbiology Results 11/10/17 Blood Culture, Received Pending 11/10/17 Blood Culture, Received Pending Diagnostic Radiology Chest x-ray reviewed by the undersigned and formally reviewed by Radiology: no apparent infiltrates per my review subsegmental right basilar opacities suggesting atelectasis or pneumonitis and suspected trace right pleural effusion per Radiology . EKG EKG performed at 11:04 reviewed and demonstrated sinus tachycardia at 113/minute , poor R-wave progression, no acute ST or T-wave abnormalities. . Impression Assessment and Plan INFLUENZA A 4 day illness with fever, sweats, cough, malaise. Nasopharyngeal swab in ED positive for influenza A. Therapy initiated with oseltamivir which will be continued to complete 5 day course. Droplet isolation. POSSIBLE PNEUMONIA Chest x-ray demonstrated atelectasis versus infiltrate at right base. Blood cultures obtained in ED. Received IV levofloxacin. Transition to oral therapy with doxycycline. POSSIBLE SEPSIS Met criteria for sepsis per 2001 definition and current CMS guidelines (fever, tachycardia, tachypnea). Possible sepsis secondary to pulmonary source. Hemodynamically stable. Serum lactate 2.03. Recheck within 6 hours of presentation. Monitor vital signs and clinical status. HISTORY OF ATRIAL FIBRILLATION Rhythm currently sinus tachycardia. On warfarin in the past, but discontinued probably because of fall risk. Continue carvedilol. HYPERTENSIVE HEART DISEASE Continue carvedilol, lisinopril, hydrochlorothiazide. Monitor for CHF. HYPERTENSION Continue carvedilol, lisinopril, hydrochlorothiazide. COPD Supplemental oxygen as needed. Levalbuterol nebulizers PRN. ELEVATED TRANSAMINASES AST 160, ALT 139, alkaline phosphatase 157, total bilirubin 0.9. Hold lovastatin and niacin. Check ultrasound of right upper quadrant. Follow. DIABETES MELLITUS TYPE 2 Glycemic control at home uncertain because patient has not been testing his sugars recently. Random blood sugar in the ED 204. Check hemoglobin A1c. Hold oral agents during hospital stay. Lantus/NovoLog per protocol. ABRASIONS/SKIN TEARS LOWER EXTREMITIES Local care. Monitor. GENERALIZED WEAKNESS/FALLS Secondary to influenza. PT / OT. VTE PROPHYLAXIS Moderate risk for VTE. Subcutaneous enoxaparin. RESUSCITATION STATUS Discussed with patient. He has a living will. He would like resuscitation attempted in the event of a cardiopulmonary arrest if there is a reasonable chance of a meaningful recovery. However, he does not wish to have prolonged extraordinary measures continued if prognosis is poor. DISPOSITION Admit to Telemetry Unit. Family Medicine follow-up with Dr. Perry. . Advanced Directives Existing Living Will: No Existing Power of Regional Hr Manager: No VTE Prophylaxis VTE Risk Assessment Done? Y/N: Yes Risk Level: Moderate Given or contraindicated: Enoxaparin (Lovenox)SQ
[2017-11-10] MEDS ORDERED: GLUCOSE 40% GEL 15 GM TUBE PO PRN (15:00)
[2017-11-10] MEDS ORDERED: GLUCAGON FOR INJ 1 MG VIAL SQ PRN (15:00)
[2017-11-10] MEDS ORDERED: GLUCOSE 10 TABS/TUBE PO PRN (15:00)
[2017-11-10] MEDS ORDERED: DEXTROSE 50% 50 ML SYR IV PRN (15:00)
[2017-11-10] MEDS ORDERED: SODIUM CHLORIDE 0.9% 1000ML 1,000 ML IV SCH (15:00)
[2017-11-10] MEDS ORDERED: LEVALBUTEROL 0.63MG/3 ML NEB INH PRN (15:15)
[2017-11-10 15:52] LABS: HEMOGLOBIN A1C 8.1 % (4.5-5.6)
[2017-11-10] MEDS: OXYCODONE HCL IR 5 MG TAB (IMMEDIATE RELEASE) PO PRN ×2 (15:58→23:45)
[2017-11-10] MEDS: GABAPENTIN 300 MG CAP PO SCH ×2 (16:32→21:08)
[2017-11-10] MEDS: INSULIN ASPART 100 UNITS/ML 3 ML PEN SC SCH ×2 (17:46→21:00)
--- NOTE | 2017-11-10 18:05 | EMERGENCY ROOM VISIT NOTE ---
History Report prepared by Isatu: Mehul Adler Under the Supervision of: Dr. Martin Stafford M.D. First contact with patient: 10:52 Chief Complaint: FALL Stated Complaint: FALL History of Present Illness The patient is a 72 year old male who presents to the Emergency Room with complaints of two sudden falls occurring last night. The patient states that he fell asleep in his wheel chair last night, and he slid out of it. EMS had to help him get back into his wheelchair. He additionally states that he got up to go to the bathroom this morning, and he fell again. He states that he did not hit his head while falling. He states he only injured his can, mostly by trying to get back up, and denies any other injuries. The patient additionally notes that he has been feeling ill for the past three days. He states that he feels weak, and he has a cough, runny nose, body aches, fever up to 101, and a sore throat. The patient denies any chest pain, abdominal pain, vomiting, and rashes. He reports that he got his flu shot this year, and he states that he has not taken any Tylenol this morning. Source of History: patient Onset: last night Position: other (global) Quality: other (fall) Timing: other (sudden) Associated Symptoms: + fevers, + sorethroat, + cough, + weakness, No chest pain, No vomiting, No abdominal pain, No rash Note: Associated symptoms: Runny nose and body aches. Review of Systems See HPI for pertinent positives & negatives. A total of 10 systems reviewed and were otherwise negative. Past Medical & Surgical Medical Problems: (1) ARF (acute renal failure) (2) Benign hypertension (3) Kkrwjyv-Gtnik-Pzpoh disease (4) CMT (Hdnbzvf-Atlxz-Iwzbw disease) (5) COPD (chronic obstructive pulmonary disease) (6) Diabetes mellitus type 2 (7) Foot deformity (8) Foot drop (9) Gastroesophageal reflux disease (10) Gout (11) History of atrial fibrillation (12) History of diabetic ulcer of foot (13) Hyperlipidemia (14) Hypertensive heart disease (15) Hypotension (16) Influenza A (17) Knee pain (18) Loss of sensation (19) Pneumonia (20) Tobacco user Surgical Problems: (1) Hx of tonsillectomy (2) S/P cervical spinal fusion (3) Status post cholecystectomy Family History Diabetes mellitus FHx: cancer FHx: gallbladder disease FHx: lung disease Hypertension Social History Smoking Status: Current Every Day Smoker Alcohol Use: none Drug Use: none Marital Status: single Housing Status: lives with family Occupation Status: retired Current/Historical Medications Scheduled Ascorbic Acid (Ascorbic Acid), 500 MG PO QAM Aspirin Enteric Coated (Ecotrin Or Generic), 81 MG PO QAM B Complex W/ C (B-Complex +C), 1 TAB PO QAM Canagliflozin (Invokana), 100 MG PO DAILY Carvedilol (Coreg), 6.25 MG PO BID Celecoxib (CeleBREX), 200 MG PO BID Cholecalciferol (Vitamin D), 5,000 UNITS PO QAM Digoxin (Digoxin), 0.125 MG PO QAM Finasteride (Proscar), 5 MG PO DAILY Fluticasone Prop/Salmeterol (Advair Diskus 250/50 60 Dose), 1 PUFF INH BID Gabapentin (Neurontin), 300 MG PO TID Glimepiride (Glimepiride), 4 MG PO QAM Lisinopril/Hctz (Zestoretic 20MG/25MG), 1 TAB PO QAM Lovastatin (Mevacor), 10 MG PO HS Melatonin (Kp Melatonin), 1 TAB PO HS Metformin Hcl (Glucophage), 1,000 MG PO BID Multivitamins/Minerals (Mvi With Minerals), 1 TAB PO QAM Niacin Ext Rel (Niaspan Ext Rel), 1,000 MG PO BID Omeprazole (Prilosec), 40 MG PO QAM Tamsulosin Hcl (Flomax), 0.4 MG PO HS Varenicline (Chantix), 1 MG PO BID Scheduled PRN Albuterol Sulfate (Proair Respiclick), 2 PUFFS INH UD PRN for SOB/Wheezing Oxycodone Immediate Rel Tab (Roxicodone Ir), 5-10 MG PO Q6H PRN for Severe Pain Allergies Coded Allergies: Penicillins (Verified Allergy, Intermediate, RASH, 11/10/17) Physical Exam Vital Signs Date Time Temp Pulse Resp B/P (MAP) Pulse Ox O2 Delivery O2 Flow Rate FiO2 11/10/17 12:19 94 Nasal Cannula 2.0 11/10/17 12:19 119 22 113/57 92 Nasal Cannula 11/10/17 10:47 38.4 118 22 103/74 93 Room Air 11/10/17 10:39 121 Physical Exam Constitutional: Vital signs reviewed. Eyes: Pupils are equal round reactive to light. Conjunctiva are noninjected. ENT: Pharynx is clear without erythema or exudate. Mucous membranes are moist. Neck supple without meningeal signs. Respiratory: Clear to auscultation bilaterally. Breath sounds are equal bilaterally. Cardiovascular:Tachycardic rate and regular rhythm. No rubs or gallops. GI: Soft, nondistended and nontender. Bowel sounds are present. Musculoskeletal: No peripheral edema. No lower extremity tenderness. Abrasions along the left can without cellulitis. Healed ulcer on the right great toe. Integumentary: No cyanosis. Neurological: The patient is awake and alert. Psychiatric: Normal affect. Medical Decision & Procedures ER Provider Diagnostic Interpretation: Radiology results as stated below per my review and the radiologist's interpretation: CHEST ONE VIEW PORTABLE HISTORY: 72 years-old Male Sepsis acute sepsis. COMPARISON: Chest radiograph 06/21/2017, acute abdominal series radiographs 10/29/2016, chest radiograph 11/18/2015 TECHNIQUE: Portable AP view of the chest FINDINGS: Cardiomediastinal and hilar silhouettes are within normal limits. There is no pneumothorax. Mild blunting of the right costophrenic angle suggests trace effusion. Hazy subsegmental right basilar opacities are noted. Left lung is generally clear. No overt pulmonary edema. Fusion hardware of the cervical spine is noted. Advanced degenerative changes of the shoulders. IMPRESSION: 1. Subsegmental right basilar opacities suggest atelectasis or pneumonitis. 2. Suspected trace right pleural effusion. The above report was generated using voice recognition software. It may contain grammatical, syntax or spelling errors. Electronically signed by: Iván Murphy M.D. 11/10/2017 11:49 AM Dictated Date/Time: 11/10/2017 11:46 AM Laboratory Results 11/10/17 11:15 Red Blood Count 5.34, Mean Corpuscular Volume 92.1, Mean Corpuscular Hemoglobin 31.6, Mean Corpuscular Hemoglobin Concent 34.3, Mean Platelet Volume 11.1, Neutrophils (%) (Auto) 77.8, Lymphocytes (%) (Auto) 9.9, Monocytes (%) (Auto) 11.7, Eosinophils (%) (Auto) 0.0, Basophils (%) (Auto) 0.3, Neutrophils # (Auto ) 9.16, Lymphocytes # (Auto) 1.16, Monocytes # (Auto) 1.37, Eosinophils # (Auto ) 0.00, Basophils # (Auto) 0.03 11/10/17 11:15 Test 11/10/17 00:00 11/10/17 11:00 11/10/17 11:15 11/10/17 11:26 Urine Color DK YELLOW Urine Appearance CLEAR (CLEAR) Urine pH 5.0 (4.5-7.5) Urine Specific Dawn 1.030 (1.000-1.030) Urine Protein TRACE (NEG) Urine Glucose (UA) 3+ (NEG) Urine Ketones TRACE (NEG) Urine Occult Blood NEG (NEG) Urine Nitrite NEG (NEG) Urine Bilirubin NEG (NEG) Urine Urobilinogen NEG (NEG) Urine Leukocyte Esterase NEG (NEG) Urine WBC (Auto) 1-5 /hpf (0-5) Urine RBC (Auto) 0-4 /hpf (0-4) Urine Hyaline Casts (Auto) 1-5 /lpf (0-5) Urine Epithelial Cells (Auto) 5-10 /lpf (0-5) Urine Bacteria (Auto) NEG (NEG) Influenza Type A (RT-PCR) POS for Influ A (NEG) Influenza Type B (RT-PCR) Neg for Influ B (NEG) White Blood Count 11.75 K/uL (4.8-10.8) Red Blood Count 5.34 M/uL (4.7-6.1) Hemoglobin 16.9 g/dL (14.0-18.0) Hematocrit 49.2 % (42-52) Mean Corpuscular Volume 92.1 fL (80-100) Mean Corpuscular Hemoglobin 31.6 pg (25-34) Mean Corpuscular Hemoglobin Concent 34.3 g/dl (32-36) Platelet Count 137 K/uL (130-400) Mean Platelet Volume 11.1 fL (7.4-10.4) Neutrophils (%) (Auto) 77.8 % Lymphocytes (%) (Auto) 9.9 % Monocytes (%) (Auto) 11.7 % Eosinophils (%) (Auto) 0.0 % Basophils (%) (Auto) 0.3 % Neutrophils # (Auto) 9.16 K/uL (1.4-6.5) Lymphocytes # (Auto) 1.16 K/uL (1.2-3.4) Monocytes # (Auto) 1.37 K/uL (0.11-0.59) Eosinophils # (Auto) 0.00 K/uL (0-0.5) Basophils # (Auto) 0.03 K/uL (0-0.2) RDW Standard Deviation 50.0 fL (36.4-46.3) RDW Coefficient of Variation 14.9 % (11.5-14.5) Immature Granulocyte % (Auto) 0.3 % Immature Granulocyte # (Auto) 0.03 K/uL (0.00-0.02) Prothrombin Time 11.2 SECONDS (9.0-12.0) Prothromb Time International Ratio 1.1 (0.9-1.1) Activated Partial Thromboplast Time 29.8 SECONDS (21.0-31.0) Partial Thromboplastin Ratio 1.1 Anion Gap 10.0 mmol/L (3-11) Est Creatinine Clear Calc Drug Dose 60.5 ml/min Estimated GFR () 65.3 Estimated GFR (Non- 56.3 BUN/Creatinine Ratio 26.0 (10-20) Calcium Level 9.3 mg/dl (8.5-10.1) Total Bilirubin 0.9 mg/dl (0.2-1) Aspartate Amino Transf (AST/SGOT) 160 U/L (15-37) Alanine Aminotransferase (ALT/SGPT) 139 U/L (12-78) Alkaline Phosphatase 157 U/L (45-117) Total Protein 7.5 gm/dl (6.4-8.2) Albumin 3.0 gm/dl (3.4-5.0) Globulin 4.5 gm/dl (2.5-4.0) Albumin/Globulin Ratio 0.7 (0.9-2) Bedside Lactic Acid Venous 2.03 mmol/L (0.90-1.70) Laboratory results as reviewed by me. Medications Administered Medications (Trade) Dose Ordered Sig/Katherine Route Start Time Stop Time Status Last Admin Dose Admin Acetaminophen (Tylenol Tab) 650 mg ONE ONCE PO 11/10/17 11:15 11/10/17 11:16 DC 11/10/17 11:19 650 MG Levofloxacin (Levaquin / D5W) 750 mg NOW STAT IV 11/10/17 12:06 11/10/17 12:07 DC 11/10/17 12:16 750 MG Oseltamivir Phosphate (Tamiflu Cap) 75 mg NOW STAT PO 11/10/17 12:06 11/10/17 12:07 DC 11/10/17 12:19 75 MG ECG Per My Interpretation Indication: weakness Rate (beats per minute): 113 Rhythm: sinus tachycardia Findings: Q waves (Inferior), other (QS waves in the precordial leads) ED Course 1052: The patient was evaluated in room B10. A complete history and physical exam was performed. 1115: Tylenol Tab 650mg PO 1206: Tamiflu Cap 75mg PO, Levofloxacin 750mg IV 1207: I reevaluated the patient, and he states that he is feeling better. I discussed the treatment plan with him. 1221: I spoke with Dr. Garcia - [facility] Hospitalist. We discussed the patient and his results. The patient will be further evaluated. Medical Decision This is a 72-year-old male who presents with illness and fever. Differential diagnosis includes influenza, sepsis, SIRS, pneumonia, UTI, bronchitis. I did perform a limited focused review of portions of the patient's old chart on the electronic medical record. The patient has had no recent pertinent visits to this hospital. I did evaluate the patient as noted above. IV access was established. The patient was placed on a continuous sewing machine maintenance mechanic. I did order and personally review the patient's 12-lead EKG and chest x-ray as described above. His chest x-ray is concerning for a developing right lower lobe infiltrate. Blood cultures ordered. I did treat him with Levaquin IV. I did order and review the patient's blood work as noted in the electronic medical record. He does have hyponatremia. His white blood cell count is elevated. POC lactic acid is slightly elevated. PCR flu testing is positive for influenza A. Urinalysis does not show infection. I did discuss the test results with the patient. He was treated with Tylenol for his fever. He was also given Tamiflu. I did discuss the case with the hospitalist and nurse case manager. Medication Reconcilliation Current Medication List: was personally reviewed by me Blood Pressure Screening Patient's blood pressure: Normal blood pressure Consults Time Called: 1208 Consulting Physician: Dr. Jose Chinchilla Hospitalist Returned Call: [address] Jose Stone [facility] Hospitalist. We discussed the patient and his results. The patient will be further evaluated. Impression Primary Impression: Influenza A Additional Impressions: Right lower lobe pneumonia Hyponatremia Hyperglycemia Abnormal LFTs Scribe Attestation The scribe's documentation has been prepared under my direct and personally reviewed by me in its entirety. I confirm that the note above accurately reflects all work, treatment, procedures, and medical decision making performed by me. Departure Information Dispostion Being Evaluated By Hospitalist Referrals Mohan Perry M.D. (PCP) Patient Instructions My [facility] Problem Qualifiers Additional Impressions: Right lower lobe pneumonia Pneumonia type: due to unspecified organism Qualified Codes: J18.1 - Lobar pneumonia, unspecified organism
[2017-11-10] MEDS: GUAIFENESIN SUGAR FREE 100 MG/5 ML UDC PO PRN (18:28)
[2017-11-10] MEDS: HYDROmorphone INJ 1 MG/ML SYR IV PRN (18:28)
[2017-11-10 19:27] LABS: CALCIUM 8.9 mg/dl (8.5-10.1); CREATININE 1.28 mg/dl (0.60-1.40)
[2017-11-10] MEDS: NEOMYCIN/POLYMYX/BACITR OINT 15 GM TUBE EXT SCH (20:05)
[2017-11-10] MEDS: FLUTICASONE/SALMETEROL 250/50 (ADVAIR) 14 PUFF/1 INHALER INH SCH (20:06)
[2017-11-10] MEDS: CeleBREX 200 MG CAP PO SCH (20:06)
[2017-11-10] MEDS: VARENICLINE 0.5 MG TAB PO SCH (20:07)
[2017-11-10] MEDS: TAMSULOSIN HCL 0.4 MG CAP PO SCH (20:09)
[2017-11-10] MEDS: CARVEDILOL 6.25 MG TAB PO SCH (20:09)
[2017-11-10] MEDS: OSELTAMIVIR PHOSPHATE 75 MG CAP PO SCH (20:10)
[2017-11-10] MEDS: DOXYCYCLINE HYCLATE 100 MG CAP PO SCH (20:11)
[2017-11-10] MEDS: ENOXAPARIN 40 MG/0.4 ML SYR SC SCH (20:13)
--- NOTE | 2017-11-10 20:58 | DIAGNOSTIC IMAGING REPORT ---
ABDOMINAL ULTRASOUND, RIGHT UPPER QUADRANT HISTORY: elevated LFT's. COMPARISON: Abdominal ultrasound 09/26/2012. FINDINGS: Pancreas: Obscured by overlying bowel gas. Liver: The liver is echogenic consistent with fatty change. Mildly enlarged measuring 20 cm in length. Liver echotexture is also slightly heterogeneous. Gallbladder: The gallbladder is surgically absent. CBD: 8 mm. Right kidney: No hydronephrosis. IMPRESSION: 1. Mild hepatomegaly demonstrating fatty change. The liver echotexture is heterogeneous. No focal masses identified. 2. Cholecystectomy. 3. The pancreas was obscured by overlying bowel gas. Electronically signed by: Mina Buchanan M.D. 11/10/2017 8:57 PM Dictated Date/Time: 11/10/2017 8:55 PM
[2017-11-10] MEDS ORDERED: LOVASTATIN 20 MG TAB PO SCH (21:00)
[2017-11-10] MEDS ORDERED: NIASPAN 500 MG TABCR PO SCH (21:00)
[2017-11-10] MEDS: INSULIN GLARGINE SOLOSTAR 100 UNITS/ML 3 ML PEN SC SCH (21:11)
[2017-11-11 00:10] VITALS: BP 95/59; PULSE 81; TEMP 36.8; O2SAT 92
[2017-11-11 04:42] VITALS: BP 101/64; PULSE 75; TEMP 36.5; O2SAT 93
[2017-11-11 06:55] LABS: HEMATOCRIT 43.2 % (42-52); HEMOGLOBIN 14.8 g/dL (14.0-18.0); MEAN CELL VOLUME 91.5 fL (80-100); MEAN CORPUSCULAR HEMOGLOBIN 31.4 pg (25-34); MEAN CORPUSCULAR HGB CONC 34.3 g/dl (32-36); RED CELL DISTRIBUTION WIDTH CV 15.2 % (11.5-14.5); RED CELL DISTRIBUTION WIDTH SD 51.4 fL (36.4-46.3); WHITE BLOOD COUNT 11.87 K/uL (4.8-10.8)
[2017-11-11 07:27] LABS: ALBUMIN 2.4 gm/dl (3.4-5.0); CALCIUM 8.6 mg/dl (8.5-10.1); CREATININE 1.16 mg/dl (0.60-1.40); POTASSIUM 3.7 mmol/L (3.5-5.1)
[2017-11-11 07:28] LABS: MEAN PLATELET VOLUME 10.5 fL (7.4-10.4); PLATELET COUNT 99 K/uL (130-400)
[2017-11-11 07:29] LABS: TOTAL PROTEIN 6.6 gm/dl (6.4-8.2)
[2017-11-11 07:56] VITALS: BP 117/73; PULSE 87; TEMP 37.4; O2SAT 92
[2017-11-11] MEDS: INSULIN ASPART 100 UNITS/ML 3 ML PEN SC SCH ×4 (08:13→21:51)
[2017-11-11] MEDS: INSULIN GLARGINE SOLOSTAR 100 UNITS/ML 3 ML PEN SC SCH ×2 (08:14→21:51)
[2017-11-11] MEDS: FLUTICASONE/SALMETEROL 250/50 (ADVAIR) 14 PUFF/1 INHALER INH SCH ×2 (08:16→21:45)
[2017-11-11] MEDS: CeleBREX 200 MG CAP PO SCH (08:17)
[2017-11-11] MEDS: VARENICLINE 0.5 MG TAB PO SCH (08:18)
[2017-11-11] MEDS: CARVEDILOL 6.25 MG TAB PO SCH ×2 (08:19→21:00)
[2017-11-11] MEDS: ASPIRIN 81 MG ECTAB PO SCH (08:19)
[2017-11-11] MEDS: GABAPENTIN 300 MG CAP PO SCH ×3 (08:20→21:45)
[2017-11-11] MEDS: LISINOPRIL/HCTZ 20/25MG TAB PO SCH (08:20)
[2017-11-11] MEDS: FINASTERIDE 5 MG TAB PO SCH (08:21)
[2017-11-11] MEDS: PANTOprazole SOD 40 MG TAB PO SCH (08:21)
[2017-11-11] MEDS: OSELTAMIVIR PHOSPHATE 75 MG CAP PO SCH ×2 (08:21→21:45)
[2017-11-11] MEDS: ASCORBIC ACID 500 MG TAB PO SCH (08:22)
[2017-11-11] MEDS: DOXYCYCLINE HYCLATE 100 MG CAP PO SCH ×2 (08:22→21:45)
[2017-11-11] MEDS: HYDROmorphone INJ 1 MG/ML SYR IV PRN ×2 (08:22→20:04)
[2017-11-11] MEDS ORDERED: KETOROLAC TROMETHAMINE 10 MG TAB PO PRN (09:00)
[2017-11-11] MEDS: NEOMYCIN/POLYMYX/BACITR OINT 15 GM TUBE EXT SCH ×2 (09:00→21:44)
--- NOTE | 2017-11-11 09:04 | Progress Note ---
Internal Med Progress Note Date of Service: Nov 11, 2017. Provider Documentation: SUBJECTIVE: Seen and examined at bedside States feeling better today Less cough Has generalized weakness Denies chest pain, SOB, dizziness, abd pain Family at bedside No other complaints OBJECTIVE: Vital Signs-as noted below Physical Exam: Vitals signs as noted above General Appearance:Moderately built and nourished, no apparent distress Head: normocephalic, Atraumatic Eyes: normal inspection, EOMI, PERRL Neck: supple, Trachea midline Respiratory/Chest: Normal breath sounds, CTA Cardiovascular: S1, S2, No murmur Abdomen/GI:Soft, Non tender, Bowel sounds present Extremities/Musculoskelatal:normal inspection, no edema, LLE in bandage, Hands and feet deformities from CMT Neurologic/Psych:AAOX3, grossly no focal neurological deficits Skin: normal color, warm, Multiple abrasions on LE Lab data as noted below. ASSESSMENT & PLAN: Influenza A . Continue oseltamivir Day 2/ Droplet isolation. Oxygen support PRN, Wean of oxygen as able Possible Pneumonia/Pneumonitis Possible sepsis Chest x-ray suggestive of atelectasis/Pneumonitis Blood cultures:pending Continue levofloxacin >> doxycycline Lactate levels normalized H/O Afib On warfarin in the past, but discontinued probably because of fall risk. Continue carvedilol, Digoxin for rate control Hypertensive Heart disease: Continue carvedilol, lisinopril, hydrochlorothiazide. No signs of CHF/Volume overload HTN Continue carvedilol, lisinopril, hydrochlorothiazide. COPD Supplemental oxygen as needed. Levalbuterol nebulizers PRN. Continue home inhalers Elevated Transaminases Hold lovastatin, Celebrex, niacin. Ultrasound: Suggestive of fatty change Check Hepatitis panel Denies abd pain Monitor LFTs DM II Glycemic control at home uncertain because patient has not been testing his sugars recently. A1c:8.1 Hold oral agents Continue Lantus, ISS LE abrasions: 2/2 fall per patient Continue wound care H/O falls: PT/OT DVT Px: Lovenox SQ Code Status: Full Code Disposition: Monitor in Tele Family Medicine follow-up with Dr. Perry. Vital Signs: Date Time Temp Pulse Resp B/P (MAP) Pulse Ox O2 Delivery O2 Flow Rate FiO2 11/11/17 07:56 37.4 87 18 117/73 (88) 92 2.0 11/11/17 05:00 Nasal Cannula 2.0 11/11/17 04:42 36.5 75 18 101/64 (76) 93 Nasal Cannula 11/11/17 00:10 36.8 81 18 95/59 (71) 92 Nasal Cannula 2.0 11/11/17 00:00 Nasal Cannula 2.0 11/10/17 21:07 36.6 94 18 115/74 (88) 92 Nasal Cannula 2.0 11/10/17 20:00 93 Nasal Cannula 2.0 11/10/17 18:27 109/67 (81) 11/10/17 17:00 36.8 100 18 94/58 (70) 91 Nasal Cannula 2.0 11/10/17 16:00 92 Nasal Cannula 2.0 11/10/17 16:00 115/74 (88) 11/10/17 14:38 36.8 108 20 117/67 (84) 92 Nasal Cannula 2.0 11/10/17 13:32 36.7 105 117/67 11/10/17 13:30 92 Nasal Cannula 2.0 11/10/17 13:16 108 11/10/17 12:19 94 Nasal Cannula 2.0 11/10/17 12:19 119 22 113/57 92 Nasal Cannula 11/10/17 10:47 38.4 118 22 103/74 93 Room Air 11/10/17 10:39 121 Lab Results: Results Past 24 Hours Test 11/10/17 11:00 11/10/17 11:15 11/10/17 11:26 11/10/17 13:45 Range/Units Influenza Type A (RT-PCR) POS for Influ A NEG Influenza Type B (RT-PCR) Neg for Influ B NEG White Blood Count 11.75 4.8-10.8 K/uL Red Blood Count 5.34 4.7-6.1 M/uL Hemoglobin 16.9 14.0-18.0 g/dL Hematocrit 49.2 42-52 % Mean Corpuscular Volume 92.1 80-100 fL Mean Corpuscular Hemoglobin 31.6 25-34 pg Mean Corpuscular Hemoglobin Concent 34.3 32-36 g/dl Platelet Count 137 130-400 K/uL Mean Platelet Volume 11.1 7.4-10.4 fL Neutrophils (%) (Auto) 77.8 % Lymphocytes (%) (Auto) 9.9 % Monocytes (%) (Auto) 11.7 % Eosinophils (%) (Auto) 0.0 % Basophils (%) (Auto) 0.3 % Neutrophils # (Auto) 9.16 1.4-6.5 K/uL Lymphocytes # (Auto) 1.16 1.2-3.4 K/uL Monocytes # (Auto) 1.37 0.11-0.59 K/uL Eosinophils # (Auto) 0.00 0-0.5 K/uL Basophils # (Auto) 0.03 0-0.2 K/uL RDW Standard Deviation 50.0 36.4-46.3 fL RDW Coefficient of Variation 14.9 11.5-14.5 % Immature Granulocyte % (Auto) 0.3 % Immature Granulocyte # (Auto) 0.03 0.00-0.02 K/uL Prothrombin Time 11.2 9.0-12.0 SECONDS Prothromb Time International Ratio 1.1 0.9-1.1 Activated Partial Thromboplast Time 29.8 21.0-31.0 SECONDS Partial Thromboplastin Ratio 1.1 Sodium Level 131 136-145 mmol/L Potassium Level 4.2 3.5-5.1 mmol/L Chloride Level 94 98-107 mmol/L Carbon Dioxide Level 27 21-32 mmol/L Anion Gap 10.0 3-11 mmol/L Blood Urea Nitrogen 33 7-18 mg/dl Creatinine 1.28 0.60-1.40 mg/dl Est Creatinine Clear Calc Drug Dose 60.5 ml/min Estimated GFR () 65.3 Estimated GFR (Non- 56.3 BUN/Creatinine Ratio 26.0 10-20 Random Glucose 204 70-99 mg/dl Calcium Level 9.3 8.5-10.1 mg/dl Total Bilirubin 0.9 0.2-1 mg/dl Aspartate Amino Transf (AST/SGOT) 160 15-37 U/L Alanine Aminotransferase (ALT/SGPT) 139 12-78 U/L Alkaline Phosphatase 157 45-117 U/L Total Protein 7.5 6.4-8.2 gm/dl Albumin 3.0 3.4-5.0 gm/dl Globulin 4.5 2.5-4.0 gm/dl Albumin/Globulin Ratio 0.7 0.9-2 Bedside Lactic Acid Venous 2.03 0.90-1.70 mmol/L Estimated Average Glucose 186 mg/dl Hemoglobin A1c 8.1 4.5-5.6 % Lactic Acid Level 2.0 0.4-2.0 mmol/L Test 11/10/17 16:32 11/10/17 19:00 11/10/17 21:04 11/11/17 06:48 Range/Units Bedside Glucose 194 160 70-99 mg/dl Sodium Level 134 133 136-145 mmol/L Potassium Level 4.0 3.7 3.5-5.1 mmol/L Chloride Level 96 96 98-107 mmol/L Carbon Dioxide Level 28 28 21-32 mmol/L Anion Gap 10.0 9.0 3-11 mmol/L Blood Urea Nitrogen 37 37 7-18 mg/dl Creatinine 1.28 1.16 0.60-1.40 mg/dl Est Creatinine Clear Calc Drug Dose 60.5 65.3 ml/min Estimated GFR () 65.3 73.5 Estimated GFR (Non- 56.3 63.5 BUN/Creatinine Ratio 29.1 32.2 10-20 Random Glucose 205 152 70-99 mg/dl Lactic Acid Level 1.8 0.4-2.0 mmol/L Calcium Level 8.9 8.6 8.5-10.1 mg/dl White Blood Count 11.87 4.8-10.8 K/uL Red Blood Count 4.72 4.7-6.1 M/uL Hemoglobin 14.8 14.0-18.0 g/dL Hematocrit 43.2 42-52 % Mean Corpuscular Volume 91.5 80-100 fL Mean Corpuscular Hemoglobin 31.4 25-34 pg Mean Corpuscular Hemoglobin Concent 34.3 32-36 g/dl RDW Standard Deviation 51.4 36.4-46.3 fL RDW Coefficient of Variation 15.2 11.5-14.5 % Platelet Count 99 130-400 K/uL Mean Platelet Volume 10.5 7.4-10.4 fL Platelet Estimate DECREASED Total Bilirubin 0.9 0.2-1 mg/dl Aspartate Amino Transf (AST/SGOT) 254 15-37 U/L Alanine Aminotransferase (ALT/SGPT) 186 12-78 U/L Alkaline Phosphatase 129 45-117 U/L Total Protein 6.6 6.4-8.2 gm/dl Albumin 2.4 3.4-5.0 gm/dl Globulin 4.2 2.5-4.0 gm/dl Albumin/Globulin Ratio 0.6 0.9-2 Test 11/11/17 06:54 11/11/17 08:51 Range/Units Bedside Glucose 225 70-99 mg/dl Microbiology Results 11/10/17 Blood Culture, Received Pending 11/10/17 Blood Culture, Received Pending
[2017-11-11 12:20] VITALS: BP 93/56; PULSE 76; TEMP 36.5; O2SAT 93
[2017-11-11] MEDS: GUAIFENESIN SUGAR FREE 100 MG/5 ML UDC PO PRN (14:19)
[2017-11-11] MEDS: OXYCODONE HCL IR 5 MG TAB (IMMEDIATE RELEASE) PO PRN (14:20)
[2017-11-11 15:08] VITALS: Ht 167.6 cm; Wt 97.1 kg
[2017-11-11] MEDS: DIGOXIN 0.125 MG TAB PO SCH (16:48)
[2017-11-11 20:00] VITALS: BP 96/56; PULSE 76; TEMP 36.6; O2SAT 95
[2017-11-11] MEDS: VARENICLINE (CHANTIX) 1 MG TAB PO SCH (21:44)
[2017-11-11] MEDS: ENOXAPARIN 40 MG/0.4 ML SYR SC SCH (21:46)
[2017-11-11] MEDS: TAMSULOSIN HCL 0.4 MG CAP PO SCH (21:46)
[2017-11-11 23:56] VITALS: BP 122/70; PULSE 84; TEMP 37; O2SAT 94
[2017-11-12] VITALS (8 sets, daily range): BP systolic 101–109; BP diastolic 61–67; PULSE 80–91; TEMP 36.5–36.8; O2SAT 92–95
[2017-11-12] MEDS: HYDROmorphone INJ 1 MG/ML SYR IV PRN ×2 (01:42→20:50)
[2017-11-12 06:55] LABS: HEMATOCRIT 41.8 % (42-52); HEMOGLOBIN 14.2 g/dL (14.0-18.0); MEAN CELL VOLUME 91.5 fL (80-100); MEAN CORPUSCULAR HEMOGLOBIN 31.1 pg (25-34); RED CELL DISTRIBUTION WIDTH CV 15.2 % (11.5-14.5); RED CELL DISTRIBUTION WIDTH SD 51.1 fL (36.4-46.3); WHITE BLOOD COUNT 10.35 K/uL (4.8-10.8)
[2017-11-12 07:01] LABS: MEAN PLATELET VOLUME 10.4 fL (7.4-10.4); PLATELET COUNT 94 K/uL (130-400)
[2017-11-12] MEDS: CeleBREX 200 MG CAP PO SCH (07:17)
[2017-11-12] MEDS: OXYCODONE HCL IR 5 MG TAB (IMMEDIATE RELEASE) PO PRN (07:27)
[2017-11-12 07:29] LABS: ALBUMIN 2.3 gm/dl (3.4-5.0); CALCIUM 8.7 mg/dl (8.5-10.1); POTASSIUM 4.3 mmol/L (3.5-5.1); TOTAL PROTEIN 6.6 gm/dl (6.4-8.2)
[2017-11-12] MEDS: NEOMYCIN/POLYMYX/BACITR OINT 15 GM TUBE EXT SCH ×2 (07:38→20:25)
[2017-11-12] MEDS: GABAPENTIN 300 MG CAP PO SCH ×3 (07:38→20:25)
[2017-11-12] MEDS: GUAIFENESIN SUGAR FREE 100 MG/5 ML UDC PO PRN ×2 (07:38→20:23)
[2017-11-12] MEDS: ASCORBIC ACID 500 MG TAB PO SCH (07:39)
[2017-11-12] MEDS: FINASTERIDE 5 MG TAB PO SCH (07:39)
[2017-11-12] MEDS: PANTOprazole SOD 40 MG TAB PO SCH (07:39)
[2017-11-12] MEDS: ASPIRIN 81 MG ECTAB PO SCH (07:41)
[2017-11-12] MEDS: VARENICLINE (CHANTIX) 1 MG TAB PO SCH ×2 (07:41→20:25)
[2017-11-12] MEDS: DOXYCYCLINE HYCLATE 100 MG CAP PO SCH ×2 (07:41→20:25)
[2017-11-12] MEDS: LISINOPRIL/HCTZ 20/25MG TAB PO SCH (07:41)
[2017-11-12] MEDS: CARVEDILOL 6.25 MG TAB PO SCH ×2 (07:41→20:25)
[2017-11-12] MEDS: FLUTICASONE/SALMETEROL 250/50 (ADVAIR) 14 PUFF/1 INHALER INH SCH ×2 (07:41→20:24)
[2017-11-12] MEDS: OSELTAMIVIR PHOSPHATE 75 MG CAP PO SCH ×2 (07:42→20:26)
[2017-11-12 08:22] LABS: HEPATITIS A IGM TC 51813E NON-REACTIVE (NON-REACTIVE); HEPATITIS B CORE IGM TC51854R NON-REACTIVE (NON-REACTIVE)
[2017-11-12] MEDS: INSULIN ASPART 100 UNITS/ML 3 ML PEN SC SCH ×4 (08:40→20:46)
[2017-11-12] MEDS: INSULIN GLARGINE SOLOSTAR 100 UNITS/ML 3 ML PEN SC SCH ×2 (08:41→20:45)
[2017-11-12] MEDS: MAGNESIUM SULFATE 1GM / D5W 1 GM in PREMIXED IN D5W 100 ML IV SCH ×2 (09:59→10:51)
--- NOTE | 2017-11-12 10:01 | Progress Note ---
Internal Med Progress Note Date of Service: Nov 12, 2017. Provider Documentation: SUBJECTIVE: Seen and examined at bedside Overall Feels better today Less cough Has generalized weakness Denies chest pain, SOB, dizziness, abd pain Family at bedside No other complaints OBJECTIVE: Vital Signs-as noted below Physical Exam: Vitals signs as noted above General Appearance:Moderately built and nourished, no apparent distress Head: normocephalic, Atraumatic Eyes: normal inspection, EOMI, PERRL Neck: supple, Trachea midline Respiratory/Chest: Normal breath sounds, CTA Cardiovascular: S1, S2, No murmur Abdomen/GI:Soft, Non tender, Bowel sounds present Extremities/Musculoskelatal:normal inspection, no edema, LLE in bandage, Hands and feet deformities from CMT Neurologic/Psych:AAOX3, grossly no focal neurological deficits Skin: normal color, warm, Multiple abrasions on LE Lab data as noted below. ASSESSMENT & PLAN: Influenza A . Continue oseltamivir Day 3/5 Droplet isolation. Oxygen support PRN, Wean of oxygen as able Possible Pneumonia/Pneumonitis Possible sepsis Chest x-ray suggestive of atelectasis/Pneumonitis Blood cultures:No growth to date Continue levofloxacin >> doxycycline Lactate levels normalized Hypomagnesemia/Hyponatremia Likely secondary to diuretic Replace and monitor H/O Afib On warfarin in the past, but discontinued probably because of fall risk. Continue carvedilol, Digoxin for rate control Hypertensive Heart disease: Continue carvedilol, lisinopril, hydrochlorothiazide. No signs of CHF/Volume overload HTN Continue carvedilol, lisinopril, hydrochlorothiazide. COPD Supplemental oxygen as needed. Levalbuterol nebulizers PRN. Continue home inhalers Elevated Transaminases Hold lovastatin, Celebrex, niacin. Ultrasound: Suggestive of fatty change Acute Hepatitis panel negative Denies abd pain Monitor LFTs Consult GI and LFTs trending up DM II Glycemic control at home uncertain because patient has not been testing his sugars recently. A1c:8.1 Hold oral agents Continue Lantus, ISS LE abrasions: 2/2 fall per patient Continue wound care H/O falls: PT/OT DVT Px: Lovenox SQ Code Status: Full Code Disposition: Family Medicine follow-up with Dr. Perry. Vital Signs: Date Time Temp Pulse Resp B/P (MAP) Pulse Ox O2 Delivery O2 Flow Rate FiO2 11/12/17 08:23 36.8 90 20 109/66 (80) 92 Nasal Cannula 2.0 11/12/17 04:00 Nasal Cannula 2.0 11/12/17 03:09 36.7 80 20 101/61 (74) 94 Nasal Cannula 2.0 11/12/17 00:00 Nasal Cannula 2.0 11/11/17 23:56 37.0 84 20 122/70 (87) 94 Nasal Cannula 2.0 11/11/17 20:00 Nasal Cannula 2.0 11/11/17 20:00 36.6 76 18 96/56 (69) 95 Nasal Cannula 2.0 11/11/17 16:48 81 11/11/17 12:20 36.5 76 19 93/56 (68) 93 Lab Results: Results Past 24 Hours Test 11/11/17 11:28 11/11/17 16:15 11/11/17 20:27 11/12/17 06:41 Range/Units Bedside Glucose 194 162 212 70-99 mg/dl White Blood Count 10.35 4.8-10.8 K/uL Red Blood Count 4.57 4.7-6.1 M/uL Hemoglobin 14.2 14.0-18.0 g/dL Hematocrit 41.8 42-52 % Mean Corpuscular Volume 91.5 80-100 fL Mean Corpuscular Hemoglobin 31.1 25-34 pg Mean Corpuscular Hemoglobin Concent 34.0 32-36 g/dl RDW Standard Deviation 51.1 36.4-46.3 fL RDW Coefficient of Variation 15.2 11.5-14.5 % Platelet Count 94 130-400 K/uL Mean Platelet Volume 10.4 7.4-10.4 fL Sodium Level 132 136-145 mmol/L Potassium Level 4.3 3.5-5.1 mmol/L Chloride Level 96 98-107 mmol/L Carbon Dioxide Level 28 21-32 mmol/L Anion Gap 8.0 3-11 mmol/L Blood Urea Nitrogen 33 7-18 mg/dl Creatinine 1.00 0.60-1.40 mg/dl Est Creatinine Clear Calc Drug Dose 75.0 ml/min Estimated GFR () 88.0 Estimated GFR (Non- 75.9 BUN/Creatinine Ratio 33.3 10-20 Random Glucose 172 70-99 mg/dl Calcium Level 8.7 8.5-10.1 mg/dl Magnesium Level 1.4 1.8-2.4 mg/dl Total Bilirubin 0.7 0.2-1 mg/dl Direct Bilirubin 0.4 0-0.2 mg/dl Aspartate Amino Transf (AST/SGOT) 324 15-37 U/L Alanine Aminotransferase (ALT/SGPT) 266 12-78 U/L Alkaline Phosphatase 156 45-117 U/L Total Protein 6.6 6.4-8.2 gm/dl Albumin 2.3 3.4-5.0 gm/dl Test 11/12/17 06:58 Range/Units Bedside Glucose 263 70-99 mg/dl
--- NOTE | 2017-11-12 12:52 | Gastrointestinal Consultation ---
Gastrointestinal Consultation Date of Consultation: Nov 12, 2017 History of Present Illness Patient is a 72 year old male with a history of [id number], diabetes, COPD, atrial fibrillation, who presented with a viral febrile illness and is now tested positive for influenza A. I was asked to see him in regards to elevated transaminases. He was noted since admission to have elevations of AST/ALT that has been mildly increasing since admission. He denies any chronic liver disease, however, did have elevations to the several hundreds a few years ago with excessive tylenol useage. He has no evidence of decompensated liver disease such as ascites, bleeding, or peripheral edema. Evidence of prior hepatic encephalopathy. AST is 324 and ALT is 256. Normal bilirubin, normal INR on admission. Right upper quadrant ultrasound has shown fatty liver, no changes of chronic liver disease, no evidence of biliary extraction. He states he is feeling mildly better, but still feels weak and unwell. Past Medical/Surgical History Medical Problems: (1) Abnormal LFTs Status: Acute (2) Cellulitis Status: Acute (3) Cellulitis Status: Acute (4) COPD exacerbation Status: Acute (5) Hyperglycemia Status: Acute (6) Hyperglycemia Status: Acute (7) Hyperglycemia Status: Acute (8) Hyponatremia Status: Acute (9) Right lower lobe pneumonia Status: Acute Family History COPD (chronic obstructive pulmonary disease) MOTHER Onpvzov-Sgshb-Wpiqv disease DAUGHTER Coronary artery disease MOTHER Social History Smoking Status: Current Every Day Smoker Alcohol Use: none Drug Use: none Marital Status: single Housing Status: lives with family Occupation Status: retired Allergies Coded Allergies: Penicillins (Verified Allergy, Intermediate, RASH, 11/10/17) Current Medications Home Meds and Scripts Medications Dose Route/Sig Max Daily Dose Days Date Category Chantix (Varenicline) 1 Mg Tab 1 Mg PO BID 11/10/17 Reported Kp Melatonin (Melatonin) 3 Mg Tab 1 Tab PO HS 30 11/10/17 Reported Invokana (Canagliflozin) 100 Mg Tab 100 Mg PO DAILY 07/05/17 Reported Proscar (Finasteride) 5 Mg Tab 5 Mg PO DAILY 06/21/17 Reported Proair Respiclick (Albuterol Sulfate) 108 Mcg/Act Aer 2 Puffs INH UD PRN 04/30/17 Reported CeleBREX (Celecoxib) 200 Mg Cap 200 Mg PO BID 01/07/17 Reported Coreg (Carvedilol) 6.25 Mg Tab 6.25 Mg PO BID 01/07/17 Reported Zestoretic 20MG/25MG (HCTZ/Lisinopril) Tab 1 Tab PO QAM 01/07/17 Reported Glimepiride 4 Mg Tab 4 Mg PO QAM 01/07/17 Reported Mevacor (Lovastatin) 20 Mg Tab 10 Mg PO HS 10/29/16 Reported Mvi With Minerals (Multivitamins/Minerals) Tab 1 Tab PO QAM 10/29/16 Reported Digoxin 0.125 Mg Tab 0.125 Mg PO QAM 10/29/16 Reported Roxicodone Ir (Oxycodone HCl) 5 Mg Tab 5-10 Mg PO Q6H PRN 10/29/16 Reported Prilosec (Omeprazole) 40 Mg Cap 40 Mg PO QAM 10/29/16 Reported B-Complex +C (B Complex W/ C) 1 Tab Tab 1 Tab PO QAM 10/29/16 Reported Flomax (Tamsulosin Hcl) 0.4 Mg Cap 0.4 Mg PO HS 10/10/16 Reported Vitamin D (Cholecalciferol) 5,000 Unit Tab 5,000 Units PO QAM 10/11/13 Reported Neurontin (Gabapentin) 300 Mg Cap 300 Mg PO TID 08/11/13 Reported Advair Diskus 250/50 60 Dose (Fluticasone Prop/Salmeterol) 1 Ea Aerp 1 Puff INH BID 01/20/13 Reported Glucophage (Metformin Hcl) 1,000 Mg Tab 1,000 Mg PO BID 01/20/13 Reported Ascorbic Acid 500 Mg Tab 500 Mg PO QAM 01/20/13 Reported Ecotrin Or Generic (Aspirin) 81 Mg Tab 81 Mg PO QAM 01/14/12 Reported Niaspan Ext Rel (Niacin) 1,000 Mg Tabcr 1,000 Mg PO BID 06/09/09 Reported Review of Systems Constitutional: + see HPI, No fever, No chills, No sweats, No weight loss, No weakness, No fatigue, No problem reported Eyes: No see HPI, No worsening of vision, No eye pain, No redness, No discharge , No diplopia, No problem reported ENT: No see HPI, No hearing loss, No unusual epistaxis, No nasal symptoms, No sore throat, No tinnitus, No dental problems, No trouble swallowing, No pain on swallowing, No problem reported Respiratory: No see HPI, No cough, No sputum, No wheezing, No shortness of breath, No dyspnea on exertion, No dyspnea at rest, No hemoptysis, No problem reported Cardiac: No see HPI, No chest pain, No orthopnea, No PND, No edema, No claudication, No palpitations, No problem reported Abdomen: No see HPI, No pain, No nausea, No vomiting, No diarrhea, No constipation, No GI bleeding, No dysphagia, No odynophagia, No acolic stools, No jaundice, No dark urine, No problem reported Musculoskeletal: + see HPI Physical Exam Date Time Temp Pulse Resp B/P (MAP) Pulse Ox O2 Delivery O2 Flow Rate FiO2 11/12/17 08:23 36.8 90 20 109/66 (80) 92 Nasal Cannula 2.0 11/12/17 08:00 94 Nasal Cannula 2.0 11/12/17 04:00 Nasal Cannula 2.0 11/12/17 03:09 36.7 80 20 101/61 (74) 94 Nasal Cannula 2.0 11/12/17 00:00 Nasal Cannula 2.0 11/11/17 23:56 37.0 84 20 122/70 (87) 94 Nasal Cannula 2.0 11/11/17 20:00 Nasal Cannula 2.0 11/11/17 20:00 36.6 76 18 96/56 (69) 95 Nasal Cannula 2.0 11/11/17 16:48 81 General Appearance: WD/WN Eyes: normal inspection ENT: normal ENT inspection Neck: supple Respiratory/Chest: chest non-tender, lungs clear Cardiovascular: regular rate, rhythm, no edema Abdomen: normal bowel sounds, non tender Extremities: normal range of motion, non-tender 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, no motor/sensory deficits Laboratory Results Last 24 Hours Test 11/11/17 16:15 11/11/17 20:27 11/12/17 06:41 11/12/17 06:58 Bedside Glucose 162 mg/dl 212 mg/dl 263 mg/dl White Blood Count 10.35 K/uL Red Blood Count 4.57 M/uL Hemoglobin 14.2 g/dL Hematocrit 41.8 % Mean Corpuscular Volume 91.5 fL Mean Corpuscular Hemoglobin 31.1 pg Mean Corpuscular Hemoglobin Concent 34.0 g/dl RDW Standard Deviation 51.1 fL RDW Coefficient of Variation 15.2 % Platelet Count 94 K/uL Mean Platelet Volume 10.4 fL Sodium Level 132 mmol/L Potassium Level 4.3 mmol/L Chloride Level 96 mmol/L Carbon Dioxide Level 28 mmol/L Anion Gap 8.0 mmol/L Blood Urea Nitrogen 33 mg/dl Creatinine 1.00 mg/dl Est Creatinine Clear Calc Drug Dose 75.0 ml/min Estimated GFR () 88.0 Estimated GFR (Non- 75.9 BUN/Creatinine Ratio 33.3 Random Glucose 172 mg/dl Calcium Level 8.7 mg/dl Magnesium Level 1.4 mg/dl Total Bilirubin 0.7 mg/dl Direct Bilirubin 0.4 mg/dl Aspartate Amino Transf (AST/SGOT) 324 U/L Alanine Aminotransferase (ALT/SGPT) 266 U/L Alkaline Phosphatase 156 U/L Total Protein 6.6 gm/dl Albumin 2.3 gm/dl Impression Patient is a 72 year old male who presented to the hospital with influenza A now with mildly increasing transaminases. He has evidence of mildly increasing LFTs without cholestasis throughout admission. Elevation of liver transaminase levels is a frequent observation during systemic infections and this may be all due to influenza. Influenza it is not A virus that commonly causes dramatic elevations of liver function test, however, as it is in patients that seemed to have issues with hypoxia is he's having saturations are low 90s in spite of oxygen therapy. Tamiflu can also cause mild elevations, although not commonly. Fortunately he is not exhibiting any evidence of liver dysfunction. Hepatitis A, B, and C are all negative at this time. Plan 1. Continue to fall LFTs daily 2. Will add other infectious disease etiologies. 3. No obvious drug reaction from his medicine list. 4. Will continue to follow.
[2017-11-12] MEDS: DIGOXIN 0.125 MG TAB PO SCH (16:45)
[2017-11-12] MEDS ORDERED: GUAIFENESIN SUGAR FREE 100 MG/5 ML UDC PO PRN (18:30)
[2017-11-12] MEDS: TAMSULOSIN HCL 0.4 MG CAP PO SCH (20:27)
[2017-11-12] MEDS: ENOXAPARIN 40 MG/0.4 ML SYR SC SCH (20:27)
[2017-11-12] MEDS ORDERED: GUAIFENESIN 600 MG TABCR PO ONE (21:10)
[2017-11-13] MEDS: HYDROmorphone INJ 1 MG/ML SYR IV PRN ×2 (04:48→18:44)
[2017-11-13] MEDS: GUAIFENESIN SUGAR FREE 100 MG/5 ML UDC PO PRN ×2 (05:18→14:31)
[2017-11-13 07:06] LABS: HEMATOCRIT 41.4 % (42-52); HEMOGLOBIN 14.1 g/dL (14.0-18.0); MEAN CELL VOLUME 91.6 fL (80-100); MEAN CORPUSCULAR HEMOGLOBIN 31.2 pg (25-34); MEAN CORPUSCULAR HGB CONC 34.1 g/dl (32-36); MEAN PLATELET VOLUME 10.3 fL (7.4-10.4); PLATELET COUNT 114 K/uL (130-400); RED CELL DISTRIBUTION WIDTH CV 15.1 % (11.5-14.5); RED CELL DISTRIBUTION WIDTH SD 50.8 fL (36.4-46.3)
[2017-11-13] MEDS: OXYCODONE HCL IR 5 MG TAB (IMMEDIATE RELEASE) PO PRN ×2 (07:41→12:49)
[2017-11-13] MEDS: FLUTICASONE/SALMETEROL 250/50 (ADVAIR) 14 PUFF/1 INHALER INH SCH ×2 (07:42→20:07)
[2017-11-13] MEDS: VARENICLINE (CHANTIX) 1 MG TAB PO SCH ×2 (07:42→20:08)
[2017-11-13] MEDS: NEOMYCIN/POLYMYX/BACITR OINT 15 GM TUBE EXT SCH ×2 (07:42→20:08)
[2017-11-13] MEDS: ASPIRIN 81 MG ECTAB PO SCH (07:44)
[2017-11-13] MEDS: GABAPENTIN 300 MG CAP PO SCH ×3 (07:44→20:08)
[2017-11-13] MEDS: CARVEDILOL 6.25 MG TAB PO SCH ×2 (07:44→20:08)
[2017-11-13 07:45] LABS: ALBUMIN 2.3 gm/dl (3.4-5.0); CALCIUM 8.9 mg/dl (8.5-10.1); CREATININE 0.85 mg/dl (0.60-1.40); POTASSIUM 3.8 mmol/L (3.5-5.1)
[2017-11-13] MEDS: FINASTERIDE 5 MG TAB PO SCH (07:45)
[2017-11-13] MEDS: LISINOPRIL/HCTZ 20/25MG TAB PO SCH (07:45)
[2017-11-13] MEDS: PANTOprazole SOD 40 MG TAB PO SCH (07:45)
[2017-11-13] MEDS: DOXYCYCLINE HYCLATE 100 MG CAP PO SCH ×2 (07:46→20:07)
[2017-11-13] MEDS: OSELTAMIVIR PHOSPHATE 75 MG CAP PO SCH ×2 (07:46→20:08)
[2017-11-13] MEDS: ASCORBIC ACID 500 MG TAB PO SCH (07:47)
[2017-11-13] MEDS: GUAIFENESIN 600 MG TABCR PO SCH ×2 (07:47→20:08)
[2017-11-13 08:00] VITALS: O2SAT 93
[2017-11-13 08:23] VITALS: BP 115/72; PULSE 81; TEMP 36.7; O2SAT 95
[2017-11-13] MEDS: INSULIN ASPART 100 UNITS/ML 3 ML PEN SC SCH ×4 (08:32→20:56)
[2017-11-13] MEDS: INSULIN GLARGINE SOLOSTAR 100 UNITS/ML 3 ML PEN SC SCH ×2 (08:32→20:57)
--- NOTE | 2017-11-13 10:40 | Gastroenterology Progress Note ---
Progress Note Date of Service: Nov 13, 2017 Subjective Pt evaluation today including: conversation w/ patient Feels mildly improved, no abdominal discomfort Medications Current Inpatient Medications Medications (Trade) Dose Ordered Sig/Katherine Route Start Time Stop Time Status Last Admin Dose Admin Enoxaparin Sodium (Lovenox Inj) 40 mg HS SC 11/10/17 21:00 12/10/17 20:59 11/12/17 20:27 40 MG Ascorbic Acid (Vitamin C Tab) 500 mg QAM PO 11/11/17 09:00 12/11/17 08:59 11/13/17 07:47 500 MG Aspirin (Ecotrin Tab) 81 mg QAM PO 11/11/17 09:00 12/11/17 08:59 11/13/17 07:44 81 MG Carvedilol (Coreg Tab) 6.25 mg BID PO 11/10/17 21:00 12/10/17 20:59 11/13/17 07:44 6.25 MG Digoxin (Lanoxin Tab) 0.125 mg DAILY@1600 PO 11/11/17 16:00 12/11/17 15:59 11/12/17 16:45 0.125 MG Finasteride (Proscar Tab) 5 mg DAILY PO 11/11/17 09:00 12/11/17 08:59 11/13/17 07:45 5 MG Salmeterol Xinafoate/ Fluticasone (Advair Diskus 250/50 Inh) 1 puff BID INH 11/10/17 21:00 12/10/17 20:59 11/13/17 07:42 1 PUFF Gabapentin (Neurontin Cap) 300 mg TID PO 11/10/17 14:00 12/10/17 13:59 11/13/17 07:44 300 MG HCTZ/Lisinopril (Prinzide 20-25MG Tab) 1 tab QAM PO 11/11/17 09:00 12/11/17 08:59 11/13/17 07:45 1 TAB Oxycodone HCl (Roxicodone Immediate Rel Tab) 10 mg Q6H PRN PO 11/10/17 14:00 11/24/17 13:59 11/13/17 07:41 10 MG Tamsulosin HCl (Flomax Cap) 0.4 mg HS PO 11/10/17 21:00 12/10/17 20:59 11/12/17 20:27 0.4 MG Pantoprazole Sodium (Protonix Tab) 40 mg QAM PO 11/11/17 09:00 12/11/17 08:59 11/13/17 07:45 40 MG Insulin Glargine (Lantus Solostar Pen) BSG LANTUS units S... BID SC 11/10/17 21:00 12/10/17 20:59 11/13/17 08:32 17 UNITS Insulin Aspart (novoLOG ASPART) SLIDING SCALE G... ACHS SC 11/10/17 16:15 12/10/17 16:14 11/13/17 08:32 4 UNITS Doxycycline Hyclate (Vibramycin Cap) 100 mg BID PO 11/10/17 21:00 11/17/17 20:59 11/13/17 07:46 100 MG Oseltamivir Phosphate (Tamiflu Cap) 75 mg BID PO 11/10/17 21:00 11/15/17 20:59 11/13/17 07:46 75 MG Neomycin/ Polymyxin/ Bacitracin (Neosporin Oint) 1 appln BID EXT 11/10/17 21:00 12/10/17 20:59 11/13/17 07:42 1 APPLN Glucose (Glucose 40% Gel) 15-30 GRAMS 15 GRAMS... UD PRN PO 11/10/17 15:00 12/10/17 14:59 Glucose (Glucose Chew Tab) 4-8 Tablets 4 Tabl... UD PRN PO 11/10/17 15:00 12/10/17 14:59 Dextrose (Dextrose 50% 50ML Syringe) 25-50ML OF 50% DW IV FOR... UD PRN IV 11/10/17 15:00 12/10/17 14:59 Glucagon (Glucagon Inj) 1 mg UD PRN SQ 11/10/17 15:00 12/10/17 14:59 Levalbuterol (Xopenex 0.63 Mg/ 3 Ml Neb) 0.63 mg Q6H PRN INH 11/10/17 15:15 12/10/17 15:14 11/12/17 19:34 0.63 MG Hydromorphone HCl (Dilaudid Inj) 1 mg Q3H PRN IV 11/10/17 18:00 3/1/18 17:59 11/13/17 04:48 1 MG Guaifenesin (Robitussin Sugar Free Syrup) 100 mg Q6H PRN PO 11/10/17 18:00 12/10/17 17:59 11/13/17 05:18 100 MG Varenicline (Chantix) 1 mg BID PO 11/11/17 21:00 12/11/17 20:59 11/13/17 07:42 1 MG Senna/Docusate Sodium (Senokot S Tab) 1 tab BID PRN PO 11/12/17 18:30 12/12/17 18:29 Guaifenesin (Mucinex Contr Rel Tab) 600 mg Q12 PO 11/13/17 09:00 12/13/17 08:59 11/13/17 07:47 600 MG Objective Vital Signs Date Time Temp Pulse Resp B/P (MAP) Pulse Ox O2 Delivery O2 Flow Rate FiO2 11/13/17 08:23 36.7 81 16 115/72 (86) 95 Nasal Cannula 2.0 11/13/17 08:00 93 Nasal Cannula 2.0 11/13/17 00:30 Nasal Cannula 2.0 11/12/17 23:48 36.5 83 20 107/64 (78) 95 Nasal Cannula 2.0 11/12/17 21:00 Nasal Cannula 2.0 11/12/17 19:34 91 18 93 Nasal Cannula 2.0 11/12/17 16:45 80 11/12/17 16:00 92 Nasal Cannula 2.0 11/12/17 15:51 36.6 80 20 107/67 (80) 93 11/12/17 11:30 92 Nasal Cannula 2.0 Physical Exam General Appearance: WD/WN, no apparent distress Neck: supple Respiratory/Chest: chest non-tender, lungs clear, normal breath sounds Cardiovascular: regular rate, rhythm, no edema, no gallop Abdomen: normal bowel sounds, non tender, soft Extremities: normal range of motion, non-tender 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, no motor/sensory deficits Laboratory Results Last 24 Hours Test 11/12/17 12:43 11/12/17 13:06 11/12/17 16:37 11/12/17 19:46 Bedside Glucose 218 mg/dl 201 mg/dl 200 mg/dl Test 11/13/17 06:47 11/13/17 08:13 White Blood Count 9.60 K/uL Red Blood Count 4.52 M/uL Hemoglobin 14.1 g/dL Hematocrit 41.4 % Mean Corpuscular Volume 91.6 fL Mean Corpuscular Hemoglobin 31.2 pg Mean Corpuscular Hemoglobin Concent 34.1 g/dl RDW Standard Deviation 50.8 fL RDW Coefficient of Variation 15.1 % Platelet Count 114 K/uL Mean Platelet Volume 10.3 fL Sodium Level 131 mmol/L Potassium Level 3.8 mmol/L Chloride Level 94 mmol/L Carbon Dioxide Level 28 mmol/L Anion Gap 9.0 mmol/L Blood Urea Nitrogen 29 mg/dl Creatinine 0.85 mg/dl Est Creatinine Clear Calc Drug Dose 88.2 ml/min Estimated GFR () 102.3 Estimated GFR (Non- 88.3 BUN/Creatinine Ratio 33.8 Random Glucose 179 mg/dl Calcium Level 8.9 mg/dl Magnesium Level 1.7 mg/dl Total Bilirubin 0.9 mg/dl Direct Bilirubin 0.4 mg/dl Aspartate Amino Transf (AST/SGOT) 201 U/L Alanine Aminotransferase (ALT/SGPT) 256 U/L Alkaline Phosphatase 158 U/L Total Protein 7.0 gm/dl Albumin 2.3 gm/dl Bedside Glucose 195 mg/dl Assessment and Plan Patient is a 72 year old male who presented to the hospital with influenza A now with mildly increasing transaminases. He has evidence of mildly increasing LFTs without cholestasis throughout admission. Elevation of liver transaminase levels is a frequent observation during systemic infections and this may be all due to influenza. Influenza it is not A virus that commonly causes dramatic elevations of liver function test, however, as it is in patients that seemed to have issues with hypoxia is he's having saturations are low 90s in spite of oxygen therapy. Tamiflu can also cause mild elevations, although not commonly. Fortunately he is not exhibiting any evidence of liver dysfunction. Hepatitis A, B, and C are all negative at this time. Plan 1. Continue to fall LFTs daily they have improved with supportive care 2. Labs pending for other infectious etiologies 3. No obvious drug reaction from his medicine list. 4. Will continue to follow.
--- NOTE | 2017-11-13 15:12 | Progress Note ---
Internal Med Progress Note Date of Service: Nov 13, 2017. Provider Documentation: SUBJECTIVE: Seen and examined at bedside Complains of mild R knee pain Has cough with clear expectoration Denies chest pain, SOB, dizziness, abd pain No other complaints OBJECTIVE: Vital Signs-as noted below Physical Exam: Vitals signs as noted above General Appearance:Moderately built and nourished, no apparent distress Head: normocephalic, Atraumatic Eyes: normal inspection, EOMI, PERRL Neck: supple, Trachea midline Respiratory/Chest: Normal breath sounds, CTA Cardiovascular: S1, S2, No murmur Abdomen/GI:Soft, Non tender, Bowel sounds present Extremities/Musculoskelatal:normal inspection, no edema, LLE in bandage, Hands and feet deformities from CMT Neurologic/Psych:AAOX3, grossly no focal neurological deficits Skin: normal color, warm, Multiple abrasions on LE Lab data as noted below. ASSESSMENT & PLAN: Influenza A . Continue oseltamivir Day 4/5 Droplet isolation. Oxygen support PRN, Wean of oxygen as able Possible Pneumonia/Pneumonitis Possible sepsis Chest x-ray suggestive of atelectasis/Pneumonitis Blood cultures:No growth to date Continue levofloxacin >> doxycycline Lactate levels normalized Hypomagnesemia/Hyponatremia Likely secondary to diuretic Replace and monitor H/O Afib On warfarin in the past, but discontinued probably because of fall risk. Continue carvedilol, Digoxin for rate control Hypertensive Heart disease: Continue carvedilol, lisinopril, hydrochlorothiazide. No signs of CHF/Volume overload HTN Continue carvedilol, lisinopril, hydrochlorothiazide. COPD Supplemental oxygen as needed. Levalbuterol nebulizers PRN. Continue home inhalers Elevated Transaminases Hold lovastatin, Celebrex, niacin. Ultrasound: Suggestive of fatty change Acute Hepatitis panel negative Denies abd pain Monitor LFTs Appreciate GI Input Monitor LFTs Other labs pending DM II Glycemic control at home uncertain because patient has not been testing his sugars recently. A1c:8.1 Hold oral agents Continue Lantus, ISS LE abrasions: 2/2 fall per patient Continue wound care H/O falls: PT/OT DVT Px: Lovenox SQ Code Status: Full Code Disposition: Family Medicine follow-up with Dr. Perry May need Rehab PT/OT Likely plan to discharge in 1-2 days if stable Vital Signs: Date Time Temp Pulse Resp B/P (MAP) Pulse Ox O2 Delivery O2 Flow Rate FiO2 11/13/17 08:23 36.7 81 16 115/72 (86) 95 Nasal Cannula 2.0 11/13/17 08:00 93 Nasal Cannula 2.0 11/13/17 00:30 Nasal Cannula 2.0 11/12/17 23:48 36.5 83 20 107/64 (78) 95 Nasal Cannula 2.0 11/12/17 21:00 Nasal Cannula 2.0 11/12/17 19:34 91 18 93 Nasal Cannula 2.0 11/12/17 16:45 80 11/12/17 16:00 92 Nasal Cannula 2.0 11/12/17 15:51 36.6 80 20 107/67 (80) 93 Lab Results: Results Past 24 Hours Test 11/12/17 16:37 11/12/17 19:46 11/13/17 06:47 11/13/17 08:13 Range/Units Bedside Glucose 201 200 195 70-99 mg/dl White Blood Count 9.60 4.8-10.8 K/uL Red Blood Count 4.52 4.7-6.1 M/uL Hemoglobin 14.1 14.0-18.0 g/dL Hematocrit 41.4 42-52 % Mean Corpuscular Volume 91.6 80-100 fL Mean Corpuscular Hemoglobin 31.2 25-34 pg Mean Corpuscular Hemoglobin Concent 34.1 32-36 g/dl RDW Standard Deviation 50.8 36.4-46.3 fL RDW Coefficient of Variation 15.1 11.5-14.5 % Platelet Count 114 130-400 K/uL Mean Platelet Volume 10.3 7.4-10.4 fL Sodium Level 131 136-145 mmol/L Potassium Level 3.8 3.5-5.1 mmol/L Chloride Level 94 98-107 mmol/L Carbon Dioxide Level 28 21-32 mmol/L Anion Gap 9.0 3-11 mmol/L Blood Urea Nitrogen 29 7-18 mg/dl Creatinine 0.85 0.60-1.40 mg/dl Est Creatinine Clear Calc Drug Dose 88.2 ml/min Estimated GFR () 102.3 Estimated GFR (Non- 88.3 BUN/Creatinine Ratio 33.8 10-20 Random Glucose 179 70-99 mg/dl Calcium Level 8.9 8.5-10.1 mg/dl Magnesium Level 1.7 1.8-2.4 mg/dl Total Bilirubin 0.9 0.2-1 mg/dl Direct Bilirubin 0.4 0-0.2 mg/dl Aspartate Amino Transf (AST/SGOT) 201 15-37 U/L Alanine Aminotransferase (ALT/SGPT) 256 12-78 U/L Alkaline Phosphatase 158 45-117 U/L Total Protein 7.0 6.4-8.2 gm/dl Albumin 2.3 3.4-5.0 gm/dl Test 11/13/17 11:48 Range/Units Bedside Glucose 233 70-99 mg/dl
[2017-11-13 16:00] VITALS: O2SAT 93
[2017-11-13 16:05] VITALS: BP 100/64; PULSE 84; TEMP 36.7; O2SAT 94
[2017-11-13] MEDS: DIGOXIN 0.125 MG TAB PO SCH (16:48)
[2017-11-13] MEDS: TAMSULOSIN HCL 0.4 MG CAP PO SCH (20:08)
[2017-11-13] MEDS: ENOXAPARIN 40 MG/0.4 ML SYR SC SCH (20:52)
[2017-11-13] MEDS: MAGNESIUM OXIDE 400 MG TAB PO SCH (21:42)
[2017-11-13 22:49] VITALS: BP 112/60; PULSE 73; TEMP 36.6; O2SAT 96
[2017-11-14] MEDS: HYDROmorphone INJ 1 MG/ML SYR IV PRN ×2 (00:39→12:29)
[2017-11-14] MEDS: DOCUSATE SODIUM/SENNA 50/8.6MG TAB PO PRN ×2 (00:41→12:28)
[2017-11-14] MEDS: GUAIFENESIN SUGAR FREE 100 MG/5 ML UDC PO PRN ×2 (00:45→21:51)
[2017-11-14 07:17] VITALS: BP 109/69; PULSE 72; TEMP 36.5; O2SAT 94
[2017-11-14 07:49] LABS: HEMATOCRIT 40.4 % (42-52); HEMOGLOBIN 13.8 g/dL (14.0-18.0); MEAN CELL VOLUME 92.4 fL (80-100); MEAN CORPUSCULAR HEMOGLOBIN 31.6 pg (25-34); MEAN CORPUSCULAR HGB CONC 34.2 g/dl (32-36); MEAN PLATELET VOLUME 10.9 fL (7.4-10.4); PLATELET COUNT 119 K/uL (130-400); RED CELL DISTRIBUTION WIDTH CV 14.7 % (11.5-14.5); RED CELL DISTRIBUTION WIDTH SD 49.6 fL (36.4-46.3); WHITE BLOOD COUNT 8.87 K/uL (4.8-10.8)
[2017-11-14 08:00] VITALS: O2SAT 94
[2017-11-14 08:15] LABS: ALBUMIN 2.1 gm/dl (3.4-5.0); CALCIUM 9.3 mg/dl (8.5-10.1); CREATININE 0.83 mg/dl (0.60-1.40); POTASSIUM 3.8 mmol/L (3.5-5.1)
[2017-11-14 08:18] LABS: TOTAL PROTEIN 6.7 gm/dl (6.4-8.2)
[2017-11-14] MEDS: OXYCODONE HCL IR 5 MG TAB (IMMEDIATE RELEASE) PO PRN ×2 (08:22→19:40)
[2017-11-14] MEDS: NEOMYCIN/POLYMYX/BACITR OINT 15 GM TUBE EXT SCH ×2 (08:23→19:29)
[2017-11-14] MEDS: FLUTICASONE/SALMETEROL 250/50 (ADVAIR) 14 PUFF/1 INHALER INH SCH ×2 (08:24→19:29)
[2017-11-14] MEDS: CARVEDILOL 6.25 MG TAB PO SCH ×2 (08:24→19:31)
[2017-11-14] MEDS: ASCORBIC ACID 500 MG TAB PO SCH (08:25)
[2017-11-14] MEDS: DOXYCYCLINE HYCLATE 100 MG CAP PO SCH ×2 (08:25→19:34)
[2017-11-14] MEDS: GUAIFENESIN 600 MG TABCR PO SCH ×2 (08:25→20:37)
[2017-11-14] MEDS: PANTOprazole SOD 40 MG TAB PO SCH (08:25)
[2017-11-14] MEDS: OSELTAMIVIR PHOSPHATE 75 MG CAP PO SCH ×2 (08:25→19:33)
[2017-11-14] MEDS: VARENICLINE (CHANTIX) 1 MG TAB PO SCH ×2 (08:26→19:30)
[2017-11-14] MEDS: ASPIRIN 81 MG ECTAB PO SCH (08:26)
[2017-11-14] MEDS: GABAPENTIN 300 MG CAP PO SCH ×3 (08:26→19:33)
[2017-11-14] MEDS: FINASTERIDE 5 MG TAB PO SCH (08:26)
[2017-11-14] MEDS: LISINOPRIL/HCTZ 20/25MG TAB PO SCH (08:26)
[2017-11-14] MEDS: MAGNESIUM OXIDE 400 MG TAB PO SCH ×2 (08:27→19:33)
[2017-11-14] MEDS: INSULIN ASPART 100 UNITS/ML 3 ML PEN SC SCH ×4 (08:33→21:07)
[2017-11-14] MEDS: INSULIN GLARGINE SOLOSTAR 100 UNITS/ML 3 ML PEN SC SCH ×2 (08:34→21:06)
--- NOTE | 2017-11-14 13:44 | Progress Note ---
Progress Note Date of Service Nov 14, 2017. (Mary Salazar,C.R.N.P.) Progress Note Mr. Cherry is a 72 year old male with Influenza A and moderate transaminase elevation, improving. ASTwas 160 on arrival, peaked at 329, today 121 ALT 139 on arrival, peaked at 256, today 195. Alk Phos and bili have been normal. LFT elevation most likely caused by the Influenza A. GI will sign off. Please call us for any new/worsening GI issues. Please follow LFTs periodically (1-2 times/week) until resolution. (Mary Salazar,C.R.N.P.)
--- NOTE | 2017-11-14 15:49 | Progress Note ---
Internal Med Progress Note Date of Service: Nov 14, 2017. Provider Documentation: SUBJECTIVE: Seen and examined at bedside Complains of generalized pain from Physical therapy earlier today Less cough Denies chest pain, SOB, dizziness, abd pain No other complaints OBJECTIVE: Vital Signs-as noted below Physical Exam: Vitals signs as noted above General Appearance:Moderately built and nourished, no apparent distress Head: normocephalic, Atraumatic Eyes: normal inspection, EOMI, PERRL Neck: supple, Trachea midline Respiratory/Chest: Normal breath sounds, scattered wheezes Cardiovascular: S1, S2, No murmur Abdomen/GI:Soft, Non tender, Bowel sounds present Extremities/Musculoskelatal:normal inspection, no edema, LLE in bandage, Hands and feet deformities from CMT Neurologic/Psych:AAOX3, grossly no focal neurological deficits Skin: normal color, warm, Multiple abrasions on LE Lab data as noted below. ASSESSMENT & PLAN: Influenza A . Continue oseltamivir Day 01/28 Droplet isolation. Oxygen support PRN, Wean of oxygen as able Possible Pneumonia/Pneumonitis Possible sepsis Chest x-ray suggestive of atelectasis/Pneumonitis Blood cultures:No growth to date Continue levofloxacin >> doxycycline Day 01/30 Lactate levels normalized Wean off oxygen as able Hypomagnesemia/Hyponatremia Likely secondary to diuretic Replace and monitor H/O Afib On warfarin in the past, but discontinued probably because of fall risk. Continue carvedilol, Digoxin for rate control Hypertensive Heart disease: Continue carvedilol, lisinopril, hydrochlorothiazide. No signs of CHF/Volume overload HTN Continue carvedilol, lisinopril, hydrochlorothiazide. COPD Supplemental oxygen as needed. Levalbuterol nebulizers PRN. Continue home inhalers Add Pulmicort Elevated Transaminases Hold lovastatin, Celebrex, niacin. Ultrasound: Suggestive of fatty change Acute Hepatitis panel negative Denies abd pain Monitor LFTs Appreciate GI Input LFTs trending towards normal Other labs pending DM II Glycemic control at home uncertain because patient has not been testing his sugars recently. A1c:8.1 Hold oral agents Continue Lantus, ISS LE abrasions: 2/2 fall per patient Continue wound care H/O falls: PT/OT DVT Px: Lovenox SQ Code Status: Full Code Disposition: Family Medicine follow-up with Dr. Pilgram Needs Rehab placement PT/OT Plan to discharge allen accepted at Rehab facility Vital Signs: Date Time Temp Pulse Resp B/P (MAP) Pulse Ox O2 Delivery O2 Flow Rate FiO2 11/14/17 08:00 94 Nasal Cannula 1.0 11/14/17 07:17 36.5 72 18 109/69 (82) 94 Nasal Cannula 1.0 11/14/17 01:10 Nasal Cannula 1.0 11/13/17 22:49 36.6 73 22 112/60 (77) 96 Nasal Cannula 11/13/17 21:00 Nasal Cannula 1.0 11/13/17 16:48 82 11/13/17 16:05 36.7 84 24 100/64 (76) 94 Nasal Cannula 1.0 Lab Results: Results Past 24 Hours Test 11/13/17 16:34 11/13/17 20:44 11/14/17 07:13 11/14/17 07:38 Range/Units Bedside Glucose 216 235 164 70-99 mg/dl White Blood Count 8.87 4.8-10.8 K/uL Red Blood Count 4.37 4.7-6.1 M/uL Hemoglobin 13.8 14.0-18.0 g/dL Hematocrit 40.4 42-52 % Mean Corpuscular Volume 92.4 80-100 fL Mean Corpuscular Hemoglobin 31.6 25-34 pg Mean Corpuscular Hemoglobin Concent 34.2 32-36 g/dl RDW Standard Deviation 49.6 36.4-46.3 fL RDW Coefficient of Variation 14.7 11.5-14.5 % Platelet Count 119 130-400 K/uL Mean Platelet Volume 10.9 7.4-10.4 fL Sodium Level 132 136-145 mmol/L Potassium Level 3.8 3.5-5.1 mmol/L Chloride Level 94 98-107 mmol/L Carbon Dioxide Level 30 21-32 mmol/L Anion Gap 8.0 3-11 mmol/L Blood Urea Nitrogen 25 7-18 mg/dl Creatinine 0.83 0.60-1.40 mg/dl Est Creatinine Clear Calc Drug Dose 90.3 ml/min Estimated GFR () 103.3 Estimated GFR (Non- 89.2 BUN/Creatinine Ratio 29.8 10-20 Random Glucose 154 70-99 mg/dl Calcium Level 9.3 8.5-10.1 mg/dl Magnesium Level 1.5 1.8-2.4 mg/dl Total Bilirubin 0.9 0.2-1 mg/dl Direct Bilirubin 0.4 0-0.2 mg/dl Aspartate Amino Transf (AST/SGOT) 121 15-37 U/L Alanine Aminotransferase (ALT/SGPT) 195 12-78 U/L Alkaline Phosphatase 145 45-117 U/L Total Protein 6.7 6.4-8.2 gm/dl Albumin 2.1 3.4-5.0 gm/dl Test 11/14/17 11:55 Range/Units Bedside Glucose 283 70-99 mg/dl
[2017-11-14 16:00] VITALS: O2SAT 90
[2017-11-14] MEDS ORDERED: MAGNESIUM SULFATE 1GM / D5W 1 GM in PREMIXED IN D5W 100 ML IV ONE (16:00)
[2017-11-14] MEDS: DIGOXIN 0.125 MG TAB PO SCH (16:08)
[2017-11-14 16:31] VITALS: BP 90/60; PULSE 83; TEMP 36.4; O2SAT 90
[2017-11-14 19:22] VITALS: PULSE 84; O2SAT 90
[2017-11-14] MEDS: BUDESONIDE 0.5 MG/2 ML VIAL (PULMICORT) INH SCH (19:22)
[2017-11-14] MEDS: TAMSULOSIN HCL 0.4 MG CAP PO SCH (20:37)
[2017-11-14] MEDS: ENOXAPARIN 40 MG/0.4 ML SYR SC SCH (20:38)
[2017-11-14 23:16] VITALS: BP 120/71; PULSE 92; TEMP 36.8; O2SAT 90
[2017-11-15] MEDS: OXYCODONE HCL IR 5 MG TAB (IMMEDIATE RELEASE) PO PRN ×3 (05:26→17:05)
[2017-11-15 06:15] LABS: HEMOGLOBIN 14.1 g/dL (14.0-18.0); MEAN CELL VOLUME 91.3 fL (80-100); MEAN CORPUSCULAR HEMOGLOBIN 31.4 pg (25-34); MEAN CORPUSCULAR HGB CONC 34.4 g/dl (32-36); MEAN PLATELET VOLUME 10.5 fL (7.4-10.4); PLATELET COUNT 140 K/uL (130-400); RED CELL DISTRIBUTION WIDTH CV 14.5 % (11.5-14.5); RED CELL DISTRIBUTION WIDTH SD 48.7 fL (36.4-46.3)
[2017-11-15 06:45] LABS: ALBUMIN 2.2 gm/dl (3.4-5.0); CALCIUM 9.2 mg/dl (8.5-10.1); CREATININE 0.82 mg/dl (0.60-1.40); POTASSIUM 3.9 mmol/L (3.5-5.1)
[2017-11-15 07:17] VITALS: BP 111/65; PULSE 82; TEMP 36.3; O2SAT 91
[2017-11-15 07:25] VITALS: PULSE 81; O2SAT 90
[2017-11-15] MEDS: BUDESONIDE 0.5 MG/2 ML VIAL (PULMICORT) INH SCH ×2 (07:25→19:34)
[2017-11-15] MEDS ORDERED: MAGNESIUM SULFATE 1GM / D5W 1 GM in PREMIXED IN D5W 100 ML IV ONE (08:00)
[2017-11-15] MEDS: VARENICLINE (CHANTIX) 1 MG TAB PO SCH ×2 (08:13→21:54)
[2017-11-15] MEDS: GUAIFENESIN SUGAR FREE 100 MG/5 ML UDC PO PRN (08:13)
[2017-11-15] MEDS: MAGNESIUM OXIDE 400 MG TAB PO SCH ×2 (08:13→21:54)
[2017-11-15] MEDS: CARVEDILOL 6.25 MG TAB PO SCH ×2 (08:13→21:53)
[2017-11-15] MEDS: PANTOprazole SOD 40 MG TAB PO SCH (08:13)
[2017-11-15] MEDS: GUAIFENESIN 600 MG TABCR PO SCH ×2 (08:13→21:51)
[2017-11-15] MEDS: OSELTAMIVIR PHOSPHATE 75 MG CAP PO SCH ×2 (08:13→21:53)
[2017-11-15] MEDS: DOCUSATE SODIUM/SENNA 50/8.6MG TAB PO PRN (08:13)
[2017-11-15] MEDS: DOXYCYCLINE HYCLATE 100 MG CAP PO SCH ×2 (08:13→21:49)
[2017-11-15] MEDS: ASPIRIN 81 MG ECTAB PO SCH (08:14)
[2017-11-15] MEDS: ASCORBIC ACID 500 MG TAB PO SCH (08:14)
[2017-11-15] MEDS: GABAPENTIN 300 MG CAP PO SCH ×3 (08:14→21:49)
[2017-11-15] MEDS: LISINOPRIL/HCTZ 20/25MG TAB PO SCH (08:14)
[2017-11-15] MEDS: FINASTERIDE 5 MG TAB PO SCH (08:14)
[2017-11-15] MEDS: NEOMYCIN/POLYMYX/BACITR OINT 15 GM TUBE EXT SCH ×2 (08:14→21:55)
[2017-11-15] MEDS: FLUTICASONE/SALMETEROL 250/50 (ADVAIR) 14 PUFF/1 INHALER INH SCH ×2 (08:15→21:47)
[2017-11-15] MEDS: INSULIN GLARGINE SOLOSTAR 100 UNITS/ML 3 ML PEN SC SCH ×2 (08:22→21:02)
[2017-11-15] MEDS: INSULIN ASPART 100 UNITS/ML 3 ML PEN SC SCH ×4 (08:22→21:01)
[2017-11-15] MEDS ORDERED: NURSING VERBAL MED ORDER ONE ×2 (09:30→11:00)
[2017-11-15] MEDS ORDERED: BISACODYL 10 MG SUPP PR ONE (11:30)
[2017-11-15] MEDS: DICLOFENAC SOD 1% GEL 100 GM TUBE EXT PRN (12:13)
--- NOTE | 2017-11-15 13:01 | Progress Note ---
Internal Med Progress Note Date of Service: Nov 15, 2017. Provider Documentation: SUBJECTIVE: Seen and examined at bedside Complains of multiple joint pain (CMT) which is improving Minimal cough Denies chest pain, SOB, dizziness, abd pain No other complaints Still has constipation OBJECTIVE: Vital Signs-as noted below Physical Exam: Vitals signs as noted above General Appearance:Moderately built and nourished, no apparent distress Head: normocephalic, Atraumatic Eyes: normal inspection, EOMI, PERRL Neck: supple, Trachea midline Respiratory/Chest: Normal breath sounds, CTA Cardiovascular: S1, S2, No murmur Abdomen/GI:Soft, Non tender, Bowel sounds present Extremities/Musculoskelatal:normal inspection, no edema, LLE in bandage, Hands and feet deformities from CMT Neurologic/Psych:AAOX3, grossly no focal neurological deficits Skin: normal color, warm, Multiple abrasions on LE Lab data as noted below. ASSESSMENT & PLAN: Influenza A . Continue oseltamivir Day 5/ Droplet isolation. Oxygen support PRN, Wean of oxygen as able Possible Pneumonia/Pneumonitis Possible sepsis Chest x-ray suggestive of atelectasis/Pneumonitis Blood cultures:No growth to date Continue levofloxacin >> doxycycline Day 6/7 Lactate levels normalized Wean off oxygen as able Hypomagnesemia/Hyponatremia Likely secondary to diuretic Replace and monitor as needed H/O Afib On warfarin in the past, but discontinued probably because of fall risk. Continue carvedilol, Digoxin for rate control Hypertensive Heart disease: Continue carvedilol, lisinopril, hydrochlorothiazide. No signs of CHF/Volume overload HTN Continue carvedilol, lisinopril, hydrochlorothiazide. COPD Supplemental oxygen as needed. Levalbuterol nebulizers PRN. Continue home inhalers Elevated Transaminases Hold lovastatin, Celebrex, niacin. Ultrasound: Suggestive of fatty change Acute Hepatitis panel negative Denies abd pain Monitor LFTs Appreciate GI Input LFTs trending towards normal Other Serology pending DM II Glycemic control at home uncertain because patient has not been testing his sugars recently. A1c:8.1 Hold oral agents Continue Lantus, ISS Adjust ISS, Lantus for better glycemic ontrol LE abrasions: 2/2 fall per patient Continue wound care H/O falls: PT/OT Constipation: Continue bowel regimen DVT Px: Lovenox SQ Code Status: Full Code Disposition: Family Medicine follow-up with Dr. Perry Plan to discharge to [facility] when accepted. Medically stable for discharge. Vital Signs: Date Time Temp Pulse Resp B/P (MAP) Pulse Ox O2 Delivery O2 Flow Rate FiO2 11/15/17 09:30 Room Air 11/15/17 08:00 Room Air 11/15/17 07:25 81 16 90 Room Air 11/15/17 07:17 36.3 82 20 111/65 (80) 91 Room Air 11/15/17 00:00 Room Air 11/14/17 23:16 36.8 92 20 120/71 (87) 90 Room Air 11/14/17 19:22 84 16 90 Room Air 11/14/17 19:00 Room Air 11/14/17 16:31 36.4 83 18 90/60 (70) 90 Room Air 11/14/17 16:08 72 11/14/17 16:00 90 Room Air Lab Results: Results Past 24 Hours Test 11/14/17 17:18 11/14/17 19:59 11/15/17 05:58 11/15/17 08:07 Range/Units Bedside Glucose 245 187 156 70-99 mg/dl White Blood Count 8.60 4.8-10.8 K/uL Red Blood Count 4.49 4.7-6.1 M/uL Hemoglobin 14.1 14.0-18.0 g/dL Hematocrit 41.0 42-52 % Mean Corpuscular Volume 91.3 80-100 fL Mean Corpuscular Hemoglobin 31.4 25-34 pg Mean Corpuscular Hemoglobin Concent 34.4 32-36 g/dl RDW Standard Deviation 48.7 36.4-46.3 fL RDW Coefficient of Variation 14.5 11.5-14.5 % Platelet Count 140 130-400 K/uL Mean Platelet Volume 10.5 7.4-10.4 fL Sodium Level 133 136-145 mmol/L Potassium Level 3.9 3.5-5.1 mmol/L Chloride Level 97 98-107 mmol/L Carbon Dioxide Level 29 21-32 mmol/L Anion Gap 7.0 3-11 mmol/L Blood Urea Nitrogen 21 7-18 mg/dl Creatinine 0.82 0.60-1.40 mg/dl Est Creatinine Clear Calc Drug Dose 91.4 ml/min Estimated GFR () 103.8 Estimated GFR (Non- 89.6 BUN/Creatinine Ratio 26.0 10-20 Random Glucose 154 70-99 mg/dl Calcium Level 9.2 8.5-10.1 mg/dl Magnesium Level 1.7 1.8-2.4 mg/dl Total Bilirubin 1.0 0.2-1 mg/dl Direct Bilirubin 0.5 0-0.2 mg/dl Aspartate Amino Transf (AST/SGOT) 91 15-37 U/L Alanine Aminotransferase (ALT/SGPT) 176 12-78 U/L Alkaline Phosphatase 169 45-117 U/L Total Protein 7.0 6.4-8.2 gm/dl Albumin 2.2 3.4-5.0 gm/dl Test 11/15/17 11:40 Range/Units Bedside Glucose 241 70-99 mg/dl
[2017-11-15] MEDS ORDERED: POLYETHYLENE (MIRALAX) 17 GM PACK PO PRN (13:15)
[2017-11-15] MEDS: DOCUSATE SODIUM/SENNA 50/8.6MG TAB PO SCH ×2 (14:18→21:51)
[2017-11-15 14:35] LABS: ANA SCREEN TC 249X NEGATIVE (NEGATIVE)
[2017-11-15 15:23] VITALS: BP 125/74; PULSE 81; TEMP 36.3; O2SAT 92
[2017-11-15] MEDS: DIGOXIN 0.125 MG TAB PO SCH (15:35)
[2017-11-15 19:34] VITALS: PULSE 78; O2SAT 91
[2017-11-15 21:50] VITALS: BP 109/70; PULSE 76
[2017-11-15] MEDS: ENOXAPARIN 40 MG/0.4 ML SYR SC SCH (21:52)
[2017-11-15] MEDS: TAMSULOSIN HCL 0.4 MG CAP PO SCH (21:55)
[2017-11-16] VITALS (7 sets, daily range): BP systolic 90–116; BP diastolic 52–70; PULSE 12–91; TEMP 36.6–36.8; O2SAT 90–92
[2017-11-16] MEDS: OXYCODONE HCL IR 5 MG TAB (IMMEDIATE RELEASE) PO PRN ×3 (05:47→23:20)
[2017-11-16] MEDS: BUDESONIDE 0.5 MG/2 ML VIAL (PULMICORT) INH SCH ×2 (07:33→19:40)
[2017-11-16] MEDS: DOXYCYCLINE HYCLATE 100 MG CAP PO SCH ×2 (08:14→21:32)
[2017-11-16] MEDS: FLUTICASONE/SALMETEROL 250/50 (ADVAIR) 14 PUFF/1 INHALER INH SCH ×2 (08:14→21:25)
[2017-11-16] MEDS: ASPIRIN 81 MG ECTAB PO SCH (08:14)
[2017-11-16] MEDS: GUAIFENESIN 600 MG TABCR PO SCH ×2 (08:14→21:32)
[2017-11-16] MEDS: DICLOFENAC SOD 1% GEL 100 GM TUBE EXT PRN (08:14)
[2017-11-16] MEDS: GABAPENTIN 300 MG CAP PO SCH ×3 (08:14→21:30)
[2017-11-16] MEDS: PANTOprazole SOD 40 MG TAB PO SCH (08:14)
[2017-11-16] MEDS: VARENICLINE (CHANTIX) 1 MG TAB PO SCH ×2 (08:15→21:26)
[2017-11-16] MEDS: ASCORBIC ACID 500 MG TAB PO SCH (08:15)
[2017-11-16] MEDS: LISINOPRIL/HCTZ 20/25MG TAB PO SCH (08:15)
[2017-11-16] MEDS: CARVEDILOL 6.25 MG TAB PO SCH ×2 (08:15→21:31)
[2017-11-16] MEDS: NEOMYCIN/POLYMYX/BACITR OINT 15 GM TUBE EXT SCH ×2 (08:15→21:25)
[2017-11-16] MEDS: MAGNESIUM OXIDE 400 MG TAB PO SCH (08:15)
[2017-11-16] MEDS: FINASTERIDE 5 MG TAB PO SCH (08:15)
[2017-11-16] MEDS: INSULIN GLARGINE SOLOSTAR 100 UNITS/ML 3 ML PEN SC SCH ×2 (08:27→21:40)
[2017-11-16] MEDS: INSULIN ASPART 100 UNITS/ML 3 ML PEN SC SCH ×4 (08:28→21:39)
[2017-11-16 08:50] LABS: ALBUMIN 2.3 gm/dl (3.4-5.0); CALCIUM 9.3 mg/dl (8.5-10.1); CREATININE 0.85 mg/dl (0.60-1.40); POTASSIUM 4.3 mmol/L (3.5-5.1)
[2017-11-16 08:53] LABS: TOTAL PROTEIN 7.2 gm/dl (6.4-8.2)
[2017-11-16] MEDS: HYDROmorphone INJ 1 MG/ML SYR IV PRN ×3 (09:55→21:22)
[2017-11-16] MEDS: MAGNESIUM SULFATE 1GM / D5W 1 GM in PREMIXED IN D5W 100 ML IV SCH ×2 (09:56→11:12)
--- NOTE | 2017-11-16 12:19 | DIAGNOSTIC IMAGING REPORT ---
L FOREARM 2 VIEWS ROUTINE CLINICAL HISTORY: left arm pain pain COMPARISON: None. DISCUSSION: The bones and joint spaces appear intact. There is no evidence of fracture, dislocation or bony disease. There is no evidence for soft tissue swelling. IMPRESSION: Negative study. The above report was generated using voice recognition software. It may contain grammatical, syntax or spelling errors. Electronically signed by: Derik Nelson M.D. 11/16/2017 12:17 PM Dictated Date/Time: 11/16/2017 12:17 PM
--- NOTE | 2017-11-16 12:21 | DIAGNOSTIC IMAGING REPORT ---
L ELBOW MIN 3 VIEWS ROUTINE CLINICAL HISTORY: left arm pain pain COMPARISON: None. DISCUSSION: No evidence for acute bony abnormality. Slight cortical defect lateral margin radial head felt to be old. No significant joint effusion. Bony alignment is anatomic. There is no evidence for soft tissue swelling. IMPRESSION: No acute process. The above report was generated using voice recognition software. It may contain grammatical, syntax or spelling errors. Electronically signed by: Derik Nelson M.D. 11/16/2017 12:19 PM Dictated Date/Time: 11/16/2017 12:17 PM
--- NOTE | 2017-11-16 12:24 | DIAGNOSTIC IMAGING REPORT ---
L HUMERUS MIN 2 VIEWS ROUTINE CLINICAL HISTORY: left arm pain pain COMPARISON: None. DISCUSSION: Considerable degenerative change left shoulder. Narrowing acromiohumeral joint space. This may indicate deterioration of the rotator cuff. Humerus shows no well-defined acute abnormality. Cortical margins appear intact. There is no evidence for soft tissue swelling. IMPRESSION: No acute process of the left humerus. Significant degenerative change left shoulder The above report was generated using voice recognition software. It may contain grammatical, syntax or spelling errors. Electronically signed by: Derik Nelson M.D. 11/16/2017 12:22 PM Dictated Date/Time: 11/16/2017 12:21 PM
[2017-11-16] MEDS: DIGOXIN 0.125 MG TAB PO SCH (17:37)
--- NOTE | 2017-11-16 18:17 | Progress Note ---
Internal Med Progress Note Date of Service: Nov 16, 2017. Provider Documentation: SUBJECTIVE: Patient has been medically cleared for discharge and awaiting placement. Had been having left arm pain. No fractures on X rays. Patient to resume pain medications. OBJECTIVE: Vital Signs-as noted below Physical Exam: General Appearance: no apparent distress Head: normocephalic, Atraumatic Eyes: normal inspection, EOMI Neck: supple, Trachea midline Respiratory/Chest: Normal breath sounds, CTABL Cardiovascular: S1, S2, No murmur Abdomen/GI:Soft, Non tender, Bowel sounds present Extremities/Musculoskelatal:normal inspection, no edema, LLE in bandage, Hands and feet deformities from CMT Neurologic/Psych:AAOX3, grossly no focal neurological deficits Skin: normal color, warm, Multiple abrasions on LE ASSESSMENT & PLAN: Influenza A . Completed oseltamivir Day Droplet isolation stopped Possible Pneumonia/Pneumonitis Possible sepsis Chest x-ray suggestive of atelectasis/Pneumonitis Blood cultures:No growth to date have been treated with Levaquin and Doxycycline Hypomagnesemia/Hyponatremia Likely secondary to diuretic Needed IV magnesium repletion today H/O Afib On warfarin in the past, but discontinued probably because of fall risk. Continue carvedilol, Digoxin for rate control Hypertensive Heart disease: Continue carvedilol, lisinopril, hydrochlorothiazide. No signs of CHF/Volume overload HTN Continue carvedilol, lisinopril, hydrochlorothiazide. COPD Supplemental oxygen as needed. Levalbuterol nebulizers PRN. Continue home inhalers Elevated Transaminases Hold lovastatin, niacin; minimize doses of celebrex Ultrasound: Suggestive of fatty change Acute Hepatitis panel negative Denies abd pain DM II A1c:8.1 Hold oral agents Continue Lantus, ISS LE abrasions: 2/2 fall per patient Continue wound care H/O falls: PT/OT Constipation: Continue bowel regimen DVT Px: Lovenox SQ Code Status: Full Code Disposition: Family Medicine follow-up with Dr. Perry Medically stable for discharge. Vital Signs: Date Time Temp Pulse Resp B/P (MAP) Pulse Ox O2 Delivery O2 Flow Rate FiO2 11/16/17 17:37 62 11/16/17 16:00 Room Air 11/16/17 15:39 36.8 84 90/52 (65) 90 Room Air 12 11/16/17 12:28 36.7 82 12 98/62 (74) 90 Room Air 11/16/17 09:15 Room Air 11/16/17 07:54 Room Air 11/16/17 07:52 36.6 91 22 107/66 (80) 91 Room Air 11/16/17 07:37 81 16 90 Room Air 11/16/17 01:35 36.6 81 20 114/66 (82) 92 Room Air 11/16/17 00:00 Room Air 11/15/17 21:50 76 109/70 (83) 11/15/17 19:34 78 16 91 Room Air Lab Results: Results Past 24 Hours Test 11/15/17 20:44 11/16/17 07:58 11/16/17 08:11 11/16/17 12:40 Range/Units Bedside Glucose 198 181 253 70-99 mg/dl Sodium Level 132 136-145 mmol/L Potassium Level 4.3 3.5-5.1 mmol/L Chloride Level 95 98-107 mmol/L Carbon Dioxide Level 31 21-32 mmol/L Anion Gap 6.0 3-11 mmol/L Blood Urea Nitrogen 18 7-18 mg/dl Creatinine 0.85 0.60-1.40 mg/dl Est Creatinine Clear Calc Drug Dose 88.2 ml/min Estimated GFR () 102.3 Estimated GFR (Non- 88.3 BUN/Creatinine Ratio 21.4 10-20 Random Glucose 192 70-99 mg/dl Calcium Level 9.3 8.5-10.1 mg/dl Magnesium Level 1.4 1.8-2.4 mg/dl Total Bilirubin 1.1 0.2-1 mg/dl Direct Bilirubin 0.6 0-0.2 mg/dl Aspartate Amino Transf (AST/SGOT) 62 15-37 U/L Alanine Aminotransferase (ALT/SGPT) 132 12-78 U/L Alkaline Phosphatase 149 45-117 U/L Total Protein 7.2 6.4-8.2 gm/dl Albumin 2.3 3.4-5.0 gm/dl Test 11/16/17 16:40 Range/Units Bedside Glucose 223 70-99 mg/dl
[2017-11-16] MEDS: DOCUSATE SODIUM/SENNA 50/8.6MG TAB PO SCH (21:28)
[2017-11-16] MEDS: TAMSULOSIN HCL 0.4 MG CAP PO SCH (21:28)
[2017-11-16] MEDS: CeleBREX 100 MG CAP PO SCH (21:29)
[2017-11-16] MEDS: ENOXAPARIN 40 MG/0.4 ML SYR SC SCH (21:32)
[2017-11-17] VITALS: BP 112/71; PULSE 81; TEMP 36.8; O2SAT 91
[2017-11-17] MEDS: DICLOFENAC SOD 1% GEL 100 GM TUBE EXT PRN (00:36)
[2017-11-17] MEDS: GUAIFENESIN SUGAR FREE 100 MG/5 ML UDC PO PRN (02:23)
[2017-11-17] MEDS: HYDROmorphone INJ 1 MG/ML SYR IV PRN (05:19)
[2017-11-17 07:09] VITALS: PULSE 70; O2SAT 92
[2017-11-17] MEDS: BUDESONIDE 0.5 MG/2 ML VIAL (PULMICORT) INH SCH (07:09)
[2017-11-17 07:38] LABS: ALBUMIN 2.2 gm/dl (3.4-5.0); CALCIUM 9.3 mg/dl (8.5-10.1); CREATININE 0.84 mg/dl (0.60-1.40); POTASSIUM 4.4 mmol/L (3.5-5.1)
[2017-11-17 08:02] VITALS: BP 113/69; PULSE 70; TEMP 36.5; O2SAT 90
[2017-11-17] MEDS: CARVEDILOL 6.25 MG TAB PO SCH (09:56)
[2017-11-17] MEDS: ASCORBIC ACID 500 MG TAB PO SCH (09:57)
[2017-11-17] MEDS: CeleBREX 100 MG CAP PO SCH (09:57)
[2017-11-17] MEDS: ASPIRIN 81 MG ECTAB PO SCH (09:58)
[2017-11-17] MEDS: FINASTERIDE 5 MG TAB PO SCH (09:59)
[2017-11-17] MEDS: NEOMYCIN/POLYMYX/BACITR OINT 15 GM TUBE EXT SCH (10:00)
[2017-11-17] MEDS: LISINOPRIL/HCTZ 20/25MG TAB PO SCH (10:00)
[2017-11-17] MEDS: FLUTICASONE/SALMETEROL 250/50 (ADVAIR) 14 PUFF/1 INHALER INH SCH (10:00)
[2017-11-17] MEDS: DOXYCYCLINE HYCLATE 100 MG CAP PO SCH (10:01)
[2017-11-17] MEDS: GABAPENTIN 300 MG CAP PO SCH ×2 (10:01→14:14)
[2017-11-17] MEDS: PANTOprazole SOD 40 MG TAB PO SCH (10:02)
[2017-11-17] MEDS: GUAIFENESIN 600 MG TABCR PO SCH (10:02)
[2017-11-17] MEDS: VARENICLINE (CHANTIX) 1 MG TAB PO SCH (10:03)
[2017-11-17] MEDS: INSULIN ASPART 100 UNITS/ML 3 ML PEN SC SCH ×2 (10:07→13:16)
[2017-11-17] MEDS: INSULIN GLARGINE SOLOSTAR 100 UNITS/ML 3 ML PEN SC SCH (10:08)
[2017-11-17] MEDS: OXYCODONE HCL IR 5 MG TAB (IMMEDIATE RELEASE) PO PRN (10:11)
[2017-11-17] MEDS: MAGNESIUM SULFATE 1GM / D5W 1 GM in PREMIXED IN D5W 100 ML IV SCH ×2 (10:18→11:33)
--- NOTE | 2017-11-17 11:55 | Progress Note ---
Internal Med Progress Note Date of Service: Nov 17, 2017. Provider Documentation: SUBJECTIVE: Magnesium level low today as 1.6 and was given 2 grams of IV magnesium in addition to oral magnesium. Patient reports left arm pain improving OBJECTIVE: Vital Signs-as noted below Physical Exam: General Appearance: no apparent distress Head: normocephalic, Atraumatic Eyes: normal inspection, EOMI Neck: supple, Trachea midline Respiratory/Chest: Normal breath sounds, CTABL Cardiovascular: S1, S2, No murmur Abdomen/GI:Soft, Non tender, Bowel sounds present Extremities/Musculoskelatal:normal inspection, no edema, LLE in bandage, Hands and feet deformities from CMT Neurologic/Psych:AAOX3, grossly no focal neurological deficits Skin: normal color, warm ASSESSMENT & PLAN: Influenza A Completed oseltamivir Droplet isolation stopped Possible Pneumonia/Pneumonitis Possible sepsis Chest x-ray suggestive of atelectasis/Pneumonitis Blood cultures:No growth to date have been treated with Levaquin and Doxycycline Hypomagnesemia/Hyponatremia Needed IV magnesium repletions intermittently H/O Afib On warfarin in the past, but discontinued probably because of fall risk. Continue carvedilol, Digoxin for rate control Hypertensive Heart disease: Continue carvedilol, lisinopril, hydrochlorothiazide. No signs of CHF/Volume overload HTN Continue carvedilol, lisinopril, hydrochlorothiazide. COPD Supplemental oxygen as needed. Levalbuterol nebulizers PRN. Continue home inhalers Left arm pain: X rays without fractures, has left shoulder arthritis Elevated Transaminases resolving Ultrasound: Suggestive of fatty change Acute Hepatitis panel negative Can restart lovastatin, niacin, celebrex DM II A1c:8.1 Can resume oral agents on discharge Continue Lantus, ISS LE abrasions: 2/2 fall per patient Continue wound care H/O falls: PT/OT provided in the hospital Constipation: Continue bowel regimen Code Status: Full Code Disposition: Family Medicine follow-up with Dr. Perry 11/11/17 at 2:[address] [place] [id number] Vital Signs: Date Time Temp Pulse Resp B/P (MAP) Pulse Ox O2 Delivery O2 Flow Rate FiO2 11/17/17 08:30 Room Air 11/17/17 08:02 36.5 70 18 113/69 (84) 90 Room Air 11/17/17 07:09 70 16 92 Room Air 11/17/17 00:05 Room Air 11/17/17 00:00 36.8 81 22 112/71 (85) 91 Room Air 11/16/17 20:05 Room Air 11/16/17 19:44 36.7 87 16 116/70 (85) 91 Room Air 11/16/17 19:40 87 16 91 Room Air 11/16/17 17:37 62 11/16/17 16:00 Room Air 11/16/17 15:39 36.8 84 90/52 (65) 90 Room Air 12 11/16/17 12:28 36.7 82 12 98/62 (74) 90 Room Air Lab Results: Results Past 24 Hours Test 11/16/17 12:40 11/16/17 16:40 11/16/17 19:38 11/17/17 06:18 Range/Units Bedside Glucose 253 223 219 70-99 mg/dl Sodium Level 131 136-145 mmol/L Potassium Level 4.4 3.5-5.1 mmol/L Chloride Level 92 98-107 mmol/L Carbon Dioxide Level 34 21-32 mmol/L Anion Gap 5.0 3-11 mmol/L Blood Urea Nitrogen 21 7-18 mg/dl Creatinine 0.84 0.60-1.40 mg/dl Est Creatinine Clear Calc Drug Dose 89.2 ml/min Estimated GFR () 102.8 Estimated GFR (Non- 88.7 BUN/Creatinine Ratio 24.6 10-20 Random Glucose 150 70-99 mg/dl Calcium Level 9.3 8.5-10.1 mg/dl Magnesium Level 1.6 1.8-2.4 mg/dl Total Bilirubin 0.9 0.2-1 mg/dl Aspartate Amino Transf (AST/SGOT) 39 15-37 U/L Alanine Aminotransferase (ALT/SGPT) 101 12-78 U/L Alkaline Phosphatase 140 45-117 U/L Total Protein 7.0 6.4-8.2 gm/dl Albumin 2.2 3.4-5.0 gm/dl Globulin 4.8 2.5-4.0 gm/dl Albumin/Globulin Ratio 0.5 0.9-2
--- NOTE | 2017-11-17 12:09 | Discharge Instructions ---
Discharge Instructions Date of Service Nov 17, 2017. Admission Reason for Admission: Influenza A, Pneumonia Discharge Discharge Diagnosis / Problem: Influenza A /Pneumonia, Hypomagnesemia, Diabetes Discharge Goals Goal(s): Improve function Activity Recommendations Activity Limitations: per Instructions/Follow-up section Shower/Bathe: no limitations . Instructions / Follow-Up Instructions / Follow-Up Influenza A Completed oseltamivir Droplet isolation stopped Possible Pneumonia/Pneumonitis Possible sepsis Chest x-ray suggestive of atelectasis/Pneumonitis Blood cultures:No growth to date have been treated with Levaquin and Doxycycline Hypomagnesemia/Hyponatremia Needed IV magnesium repletions intermittently H/O Afib On warfarin in the past, but discontinued probably because of fall risk. Continue carvedilol, Digoxin for rate control Hypertensive Heart disease: Continue carvedilol, lisinopril, hydrochlorothiazide. No signs of CHF/Volume overload HTN Continue carvedilol, lisinopril, hydrochlorothiazide. COPD Supplemental oxygen as needed. Levalbuterol nebulizers PRN. Continue home inhalers Left arm pain: X rays without fractures, has left shoulder arthritis Elevated Transaminases resolving Ultrasound: Suggestive of fatty change Acute Hepatitis panel negative Can restart lovastatin, niacin, celebrex DM II A1c:8.1 Can resume oral agents on discharge Continue Lantus, ISS LE abrasions: 2/2 fall per patient Continue wound care H/O falls: PT/OT provided in the hospital Constipation: Continue bowel regimen Code Status: Full Code Disposition: Family Medicine follow-up with Dr. Perry 11/11/17 at 2:[address] [place] [id number] Current Hospital Diet Patient's current hospital diet: AHA Diet (Heart Healthy), Diabetes Type 2 Diet Discharge Diet Recommended Diet: AHA Diet (Heart Healthy), Diabetes Type 2 Diet Pending Studies Studies pending at discharge: no Laboratory Results 11/15/17 05:58 11/17/17 06:18 Test 11/10/17 00:00 11/10/17 11:00 11/10/17 11:15 11/10/17 11:26 Urine Color DK YELLOW Urine Appearance CLEAR (CLEAR) Urine pH 5.0 (4.5-7.5) Urine Specific [place] 1.030 (1.000-1.030) Urine Protein TRACE (NEG) Urine Glucose (UA) 3+ (NEG) Urine Ketones TRACE (NEG) Urine Occult Blood NEG (NEG) Urine Nitrite NEG (NEG) Urine Bilirubin NEG (NEG) Urine Urobilinogen NEG (NEG) Urine Leukocyte Esterase NEG (NEG) Urine WBC (Auto) 1-5 /hpf (0-5) Urine RBC (Auto) 0-4 /hpf (0-4) Urine Hyaline Casts (Auto) 1-5 /lpf (0-5) Urine Epithelial Cells (Auto) 5-10 /lpf (0-5) Urine Bacteria (Auto) NEG (NEG) Influenza Type A (RT-PCR) POS for Influ A (NEG) Influenza Type B (RT-PCR) Neg for Influ B (NEG) Immature Granulocyte % (Auto) 0.3 % White Blood Count 11.75 K/uL (4.8-10.8) Red Blood Count 5.34 M/uL (4.7-6.1) Hemoglobin 16.9 g/dL (14.0-18.0) Hematocrit 49.2 % (42-52) Mean Corpuscular Volume 92.1 fL (80-100) Mean Corpuscular Hemoglobin 31.6 pg (25-34) Mean Corpuscular Hemoglobin Concent 34.3 g/dl (32-36) Platelet Count 137 K/uL (130-400) Mean Platelet Volume 11.1 fL (7.4-10.4) Neutrophils (%) (Auto) 77.8 % Lymphocytes (%) (Auto) 9.9 % Monocytes (%) (Auto) 11.7 % Eosinophils (%) (Auto) 0.0 % Basophils (%) (Auto) 0.3 % Neutrophils # (Auto) 9.16 K/uL (1.4-6.5) Lymphocytes # (Auto) 1.16 K/uL (1.2-3.4) Monocytes # (Auto) 1.37 K/uL (0.11-0.59) Eosinophils # (Auto) 0.00 K/uL (0-0.5) Basophils # (Auto) 0.03 K/uL (0-0.2) Immature Granulocyte # (Auto) 0.03 K/uL (0.00-0.02) Prothrombin Time 11.2 SECONDS (9.0-12.0) Prothromb Time International Ratio 1.1 (0.9-1.1) Activated Partial Thromboplast Time 29.8 SECONDS (21.0-31.0) Partial Thromboplastin Ratio 1.1 Bedside Lactic Acid Venous 2.03 mmol/L (0.90-1.70) Test 11/10/17 13:45 11/10/17 19:00 11/11/17 06:48 11/11/17 09:37 Estimated Average Glucose 186 mg/dl Hemoglobin A1c 8.1 % (4.5-5.6) Lactic Acid Level 1.8 mmol/L (0.4-2.0) Platelet Estimate DECREASED Hepatitis A IgM Antibody NON-REACTIVE (NON-REACTIVE) Hepatitis B Surface Antigen NEG (NEG) Hepatitis B Core IgM Antibody NON-REACTIVE (NON-REACTIVE) Hepatitis C Antibody NON-REACTIVE (NON-REACTIVE) Hepatitis C Ab Signal/Cutoff Ratio 0.01 (LESS THAN 1.0) Test 11/12/17 13:06 11/15/17 05:58 11/16/17 07:58 11/16/17 19:38 Anti-Nuclear Antibody Screen NEGATIVE (NEGATIVE) Cytomegalovirus IgM Antibody <30.00 Au/mL Pamela-[place] Virus Capsid Ag IgG Ab >750.00 U/ML E-B Virus Capsid Ag IgM Ab Index < 36.00 U/ML Herpes Simplex Virus I IgM Ab (IFA) Negative (Negative) Herpes Simplex Virus II IgM Ab (IFA Negative (Negative) Red Blood Count 4.49 M/uL (4.7-6.1) Mean Corpuscular Volume 91.3 fL (80-100) Mean Corpuscular Hemoglobin 31.4 pg (25-34) Mean Corpuscular Hemoglobin Concent 34.4 g/dl (32-36) RDW Standard Deviation 48.7 fL (36.4-46.3) RDW Coefficient of Variation 14.5 % (11.5-14.5) Mean Platelet Volume 10.5 fL (7.4-10.4) Direct Bilirubin 0.6 mg/dl (0-0.2) Bedside Glucose 219 mg/dl (70-99) Test 11/17/17 06:18 Anion Gap 5.0 mmol/L (3-11) Est Creatinine Clear Calc Drug Dose 89.2 ml/min Estimated GFR () 102.8 Estimated GFR (Non- 88.7 BUN/Creatinine Ratio 24.6 (10-20) Calcium Level 9.3 mg/dl (8.5-10.1) Magnesium Level 1.6 mg/dl (1.8-2.4) Total Bilirubin 0.9 mg/dl (0.2-1) Aspartate Amino Transf (AST/SGOT) 39 U/L (15-37) Alanine Aminotransferase (ALT/SGPT) 101 U/L (12-78) Alkaline Phosphatase 140 U/L (45-117) Total Protein 7.0 gm/dl (6.4-8.2) Albumin 2.2 gm/dl (3.4-5.0) Globulin 4.8 gm/dl (2.5-4.0) Albumin/Globulin Ratio 0.5 (0.9-2) Date/Time Source Procedure Growth Status 11/10/17 11:15 Blood Blood Culture - Final NO GROWTH Complete Hemoglobin A1c Test 11/10/17 13:45 Range/Units Estimated Average Glucose 186 mg/dl Hemoglobin A1c 8.1 H 4.5-5.6 % Medical Emergencies . Who to Call and When: Medical Emergencies: If at any time you feel your situation is an emergency, please call 911 immediately. . Non-Emergent Contact Non-Emergency issues call your: Primary Care Provider Call Non-Emergent contact if: you have any medication questions . . "Provider Documentation" section prepared by Georges Bray. . VTE Core Measure Inpt VTE Proph given/why not?: Enoxaparin (Lovenox)SQ
--- NOTE | 2017-11-17 12:18 | Discharge Summary ---
Discharge Summary Date of Service Nov 17, 2017. Discharge Summary Admission Date: Nov 10, 2017 at 12:30 Discharge Date: Nov 17, 2017 Discharge Disposition: Rehab Principal Diagnosis: Influenza A /Pneumonia, Hypomagnesemia, Diabetes Medication Reconciliation New Medications: Magnesium Oxide (Mag-Ox) 400 Mg Tab 400 MG PO BID for 5 Days, #10 TAB Continued Medications: Albuterol Sulfate (Proair Respiclick) 108 Mcg/Act Aer 2 PUFFS INH UD PRN for SOB/Wheezing Ascorbic Acid (Ascorbic Acid) 500 Mg Tab 500 MG PO QAM Aspirin Enteric Coated (Ecotrin Or Generic) 81 Mg Tab 81 MG PO QAM B Complex W/ C (B-Complex +C) 1 Tab Tab 1 TAB PO QAM Canagliflozin (Invokana) 100 Mg Tab 100 MG PO DAILY Carvedilol (Coreg) 6.25 Mg Tab 6.25 MG PO BID Celecoxib (CeleBREX) 200 Mg Cap 200 MG PO BID Cholecalciferol (Vitamin D) 5,000 Unit Tab 5000 UNITS PO QAM Digoxin (Digoxin) 0.125 Mg Tab 0.125 MG PO QAM Finasteride (Proscar) 5 Mg Tab 5 MG PO DAILY, TAB Fluticasone Prop/Salmeterol (Advair Diskus 250/50 60 Dose) 1 Ea Aerp 1 PUFF INH BID, INHALER Gabapentin (Neurontin) 300 Mg Cap 300 MG PO TID, CAP Glimepiride (Glimepiride) 4 Mg Tab 4 MG PO QAM Lisinopril/Hctz (Zestoretic 20MG/25MG) Tab 1 TAB PO QAM Lovastatin (Mevacor) 20 Mg Tab 10 MG PO HS, TAB Melatonin (Kp Melatonin) 3 Mg Tab 1 TAB PO HS for 30 Days, #30 TAB Metformin Hcl (Glucophage) 1,000 Mg Tab 1000 MG PO BID, TAB Multivitamins/Minerals (Mvi With Minerals) Tab 1 TAB PO QAM Niacin Ext Rel (Niaspan Ext Rel) 1,000 Mg Tabcr 1000 MG PO BID Omeprazole (Prilosec) 40 Mg Cap 40 MG PO QAM Tamsulosin Hcl (Flomax) 0.4 Mg Cap 0.4 MG PO HS, CAP Varenicline (Chantix) 1 Mg Tab 1 MG PO BID, TAB Discontinued Medications: Oxycodone Immediate Rel Tab (Roxicodone Ir) 5 Mg Tab 5-10 MG PO Q6H PRN for Severe Pain Admission Information HPI (per Admitting provider): 72-year-old male followed by Dr. Rodney. History of atrial fibrillation, hypertensive heart disease, hypertension, COPD, diabetes mellitus type 2, and other problems noted below. Became ill about 4 days prior to admission with malaise and cough. He has a chronic cough, but no worse than baseline. Cough is not productive. He experienced some sweats, but no documented fever at home. Progressive weakness over the last 24 hours. He has [id number]-Neelg-Fpfdl, usually ambulatory with cane or walker but spends much of the time in a wheelchair. He fell twice, once when he fell asleep in a wheelchair and slipped out and once when he tried to stand and ambulate. Injured his legs when he fell with abrasions and skin tears. Tried [id number]-bip-aetkcog cold medicine without relief. 1 of his caretakers recently had a cold. No other sick contacts. . Physical Exam (per Admitting): General Appearance: + moderate distress, + obese Head: normocephalic, atraumatic Eyes: PERRL, EOMI, sclerae normal ENT: normal ENT inspection, + pertinent finding (edentulous) Neck: supple, no adenopathy, thyroid normal, trachea midline Respiratory/Chest: no respiratory distress, + pertinent finding (scattered rhonchi, diffuse mild wheezing) Cardiovascular: regular rate, rhythm, no JVD, + tachycardia, + pertinent finding (no murmur, gallop, rub appreciated; trace pretibial edema; pedal pulses diminished; capillary refill to toes less than 2 seconds) Abdomen/GI: normal bowel sounds, non tender, soft, no organomegaly, + pertinent finding (exam limited due to body habitus) Extremities/Musculoskelatal: normal capillary refill, + pertinent finding ( CMT deformities of hands and feet) Neurologic/Psych: checker II-XII nml as tested (PERRL, EOMI, no dysarthria, no facial palsy), alert, oriented x 3, + pertinent finding (generalized weakness) Skin: normal color, no rash, + diaphoresis Lymphatic: no adenopathy (cervical, axillary) Hospital Course Influenza A Completed oseltamivir Droplet isolation stopped Possible Pneumonia/Pneumonitis Possible sepsis Chest x-ray suggestive of atelectasis/Pneumonitis Blood cultures:No growth to date have been treated with Levaquin and Doxycycline Hypomagnesemia/Hyponatremia Needed IV magnesium repletions intermittently H/O Afib On warfarin in the past, but discontinued probably because of fall risk. Continue carvedilol, Digoxin for rate control Hypertensive Heart disease: Continue carvedilol, lisinopril, hydrochlorothiazide. No signs of CHF/Volume overload HTN Continue carvedilol, lisinopril, hydrochlorothiazide. COPD Supplemental oxygen as needed. Levalbuterol nebulizers PRN. Continue home inhalers Left arm pain: X rays without fractures, has left shoulder arthritis Elevated Transaminases resolving Ultrasound: Suggestive of fatty change Acute Hepatitis panel negative Can restart lovastatin, niacin, celebrex DM II A1c:8.1 Can resume oral agents on discharge Continue Lantus, ISS LE abrasions: 2/2 fall per patient Continue wound care H/O falls: PT/OT provided in the hospital Constipation: Continue bowel regimen Code Status: Full Code Disposition: Family Medicine follow-up with Dr. Perry 11/11/17 at 2:[address] [place], [place] [address] Total time spent on discharge = This includes examination of the patient, discharge planning, medication reconciliation, and communication with other providers. Discharge Instructions see above
[2017-11-17] MEDS ORDERED: MAGN400T5 PO (12:20)
[2017-11-17 14:04] VITALS: BP 113/69; PULSE 70; TEMP 36.5; O2SAT 90
== END 2017-11-17 14:38 | DRG 871 ==
LOC: EDBD 10:25 → C.EDB 10:26 → C.2T 12:30 → UNDOADMIN 12:30 → EDBEDREQ 12:40 → ENRESERV 13:53 → EDBEDREQ 11-12 10:35 → C.4E 11-12 11:27 → C.MS4W 11-16 11:34
PROVIDERS: ADMIT Hospitalist; ATTEND Hospitalist
DX: A41.9 Sepsis, unspecified organism (principal); J10.00 Influenza due to other identified influenza virus with unspecified type of pneumonia; J18.9 Pneumonia, unspecified organism; E87.1 Hypo-osmolality and hyponatremia; I10 Essential (primary) hypertension; E83.42 Hypomagnesemia; J44.9 Chronic obstructive pulmonary disease, unspecified; E11.9 Type 2 diabetes mellitus without complications; K21.9 Gastro-esophageal reflux disease without esophagitis; M10.9 Gout, unspecified; I48.91 Unspecified atrial fibrillation; M79.602 Pain in left arm; G60.0 Hereditary motor and sensory neuropathy; K59.00 Constipation, unspecified; E78.5 Hyperlipidemia, unspecified; F17.200 Nicotine dependence, unspecified, uncomplicated; Z79.82 Long term (current) use of aspirin; Z79.84 Long term (current) use of oral hypoglycemic drugs; Z79.899 Other long term (current) drug therapy; Z88.0 Allergy status to penicillin; Z91.81 History of falling

== ENCOUNTER 2017-11-28 20:49 | Inpatient (IN) | payer OTHER ==
[~2017-11-28] VITALS: Ht 167.6 cm; Wt 103.0 kg
[~2017-11-28 20:49] MED LIST changes: +CHN/1 PO; -CLIN300C2 PO; +MELA1TAB5 PO; -OXYC1TAB3 PO; -PRED20TA PO
[2017-11-28] MEDS ORDERED: SODIUM CHLORIDE 0.9% 1000ML 1,000 ML IV STA ×2 (21:14→23:58)
--- NOTE | 2017-11-28 21:18 | EMERGENCY ROOM VISIT NOTE ---
History Report prepared by Isatu: Mohan Garcia Under the Supervision of: Dr. Vincenzo Hudson M.D. First contact with patient: 21:11 Chief Complaint: WEAKNESS Stated Complaint: ELEVATED HR,LOW BP History of Present Illness The patient is a 72 year old male who presents to the Emergency Room with complaints of constant, weakness which began several days ago. The patient's daughter notes he was having a low blood pressure for the past several days with systolic pressures in the 70-80 range. He also reports that his heart rate was elevated to 120 today. The patient notes that he was recently released from [facility] after being treated for flu and pneumonia. The patient's daughter reports that the patient has not been drinking fluids regularly and notes that the patient has not had his prescribed beta abilio or Lisinopril for the past several days. The patient notes that he is currently taking Aspirin as well as Digoxin; his recent dig level was therapeutic. The patient reports a minor intermittent cough, vomiting this morning, constipation, experiencing baseline pain levels, a history fo A-fib, a history of hypertension, and a history of COPD. He also notes that he is diabetic, and that he was a life long smoker. The patient reports that his most recent sugar levels were 230. He also states that he quit smoking several weeks ago. The patient does not feel that a breathing treatment is neccesary at this time. The patient denies any chest pain , shortness of breath, history of congestive heart failure, blood in vomit, blood in stools, or any dark black stools. Source of History: patient, family (daughter ) Onset: several days ago Position: other (global ) Quality: other (weakness) Timing: constant Associated Symptoms: + cough, + vomiting, No chest pain, No SOB, No melena Note: Associated Symptoms: Low blood pressure, elevated heart rate, constipation, baseline pain levels Denies: History of congestive heart failure, blood in vomit, blood in stools, or any dark black stools. Review of Systems See HPI for pertinent positives and negatives. A total of ten systems were reviewed and were otherwise negative. Past Medical & Surgical Medical Problems: (1) ARF (acute renal failure) (2) Benign hypertension (3) Bkawtqf-Xbkys-Owwgz disease (4) CMT (Mafwfrx-Nmxyx-Zxhem disease) (5) COPD (chronic obstructive pulmonary disease) (6) Diabetes mellitus type 2 (7) Foot deformity (8) Foot drop (9) Gastroesophageal reflux disease (10) Gout (11) History of atrial fibrillation (12) History of diabetic ulcer of foot (13) Hyperlipidemia (14) Hypertensive heart disease (15) Hypotension (16) Influenza A (17) Knee pain (18) Loss of sensation (19) Pneumonia (20) Tobacco user Surgical Problems: (1) Hx of tonsillectomy (2) S/P cervical spinal fusion (3) Status post cholecystectomy Family History COPD (chronic obstructive pulmonary disease) MOTHER [place]bl-[place]un[place]eb[place] disease DAUGHTER Coronary artery disease MOTHER Social History Smoking Status: Former Smoker Alcohol Use: none Drug Use: none Marital Status: single Housing Status: lives with family Occupation Status: retired Current/Historical Medications Scheduled Ascorbic Acid (Ascorbic Acid), 500 MG PO QAM Aspirin (Aspirin Ec), 81 MG PO QAM B Complex W/ C (Vitamin B Complex-C), 1 CAP PO QAM Canagliflozin (Invokana), 100 MG PO DAILY Carvedilol (Coreg), 6.25 MG PO BID Celecoxib (CeleBREX), 200 MG PO BID Cholecalciferol (Vitamin D3 Ultra Strength), 5,000 UNITS PO QAM Digoxin (Digoxin), 0.125 MG PO DAILY Fluticasone Prop/Salmeterol (Advair Diskus 250/50 60 Dose), 1 PUFF INH BID Gabapentin (Neurontin), 300 MG PO TID Glimepiride (Glimepiride), 4 MG PO QAM Lisinopril/Hctz (Zestoretic 20MG/25MG), 1 TAB PO QAM Lovastatin (Mevacor), 10 MG PO HS Magnesium Oxide (Mag-Ox), 400 MG PO BID Melatonin (Kp Melatonin), 3 MG PO HS Metformin Hcl (Glucophage), 1,000 MG PO BID Multivitamin (Multivitamin), 1 TAB PO DAILY Niacin Ext Rel (Niaspan Ext Rel), 1,000 MG PO BID Omeprazole (Prilosec), 40 MG PO QAM Tamsulosin Hcl (Flomax), 0.4 MG PO HS Varenicline (Chantix), 1 MG PO BID Scheduled PRN Albuterol Sulfate (Proair Respiclick), 2 PUFFS INH UD PRN for SOB/Wheezing Allergies Coded Allergies: Penicillins (Verified Allergy, Intermediate, RASH, 11/10/17) Physical Exam Vital Signs Date Time Temp Pulse Resp B/P (MAP) Pulse Ox O2 Delivery O2 Flow Rate FiO2 11/29/17 00:02 88 20 109/71 96 Room Air 11/28/17 23:27 78 11/28/17 22:52 98 20 105/83 95 Room Air 11/28/17 22:16 102/57 11/28/17 22:03 87 20 89/58 95 Room Air 11/28/17 21:00 36.7 100 20 89/54 95 Room Air Physical Exam Physical Exam GENERAL: He is oriented to person, place, and time. He appears well-developed and well-nourished. He does not appear distressed. ____ HENT: Exam performed. Head: Normocephalic and atraumatic. Right Ear: External ear normal. No mastoid tenderness. Left Ear: External ear normal. No mastoid tenderness. Mouth/Throat: The oropharynx is clear and moist. No trismus in the jaw. No dental abscesses or uvula swelling. No oropharyngeal exudate or tonsillar abscesses. ____ EYES: Conjunctivae and EOM are normal. Pupils are equal, round, and reactive to light. Right eye exhibits no discharge. Left eye exhibits no discharge. No scleral icterus. ____ NECK: Normal range of motion. Neck supple. No JVD present. No spinous process tenderness present. No carotid bruit present. No rigidity. No tracheal deviation and normal range of motion present. No Brudzinski's sign and no Kernig 's sign noted. ____ CV: Tachycardic, regular rhythm, normal heart sounds and intact distal pulses. There is no peripheral edema. Palpable radial pulses bue. ____ PULM/CHEST: Scant expiratory wheezes and 1 plus pitting edema bilaterally. Chest Wall: He exhibits no tenderness. ____ ABD: The abdomen is soft. Bowel sounds are normal. He has no distension. No mass is present. There is no tenderness. There is no rebound, no guarding, no Noyola's sign and no tenderness at McBurney's point. Rovsig negative MUSC/SKEL: Normal range of motion. There is 1+ peripheral edema bilateral lower extremities, tenderness or deformity. LYMPH: No cervical adenopathy. ____ NEURO: He is alert and oriented to person, place, and time. He has normal strength. No cranial nerve deficit or sensory deficit. Coordination and gait normal. GCS eye subscore is 4. GCS verbal subscore is 5. GCS motor subscore is 6. Cerebellar tests wnl. ____ SKIN: Skin is warm and dry. He is not diaphoretic. ____ PSYCH: He has a normal mood and affect. His behavior is normal. Judgment and thought content normal. ____ Medical Decision & Procedures ER Provider Diagnostic Interpretation: Radiology results as stated below per my review and radiologist interpretation: CHEST ONE VIEW PORTABLE CLINICAL HISTORY: cough fever vomitting nausea. Vomiting. COMPARISON STUDY: 11/10/2017 FINDINGS: Minimal right basilar atelectatic or infiltrative change. This is unaltered from the prior exam. Lungs otherwise are clear. No significant cardiac enlargement. IMPRESSION: Minimal infiltrate versus atelectasis versus right base. No change from the prior study. The above report was generated using voice recognition software. It may contain grammatical, syntax or spelling errors. Electronically signed by: Derik Nelson M.D. 11/28/2017 9:57 PM Dictated Date/Time: 11/28/2017 9:56 PM Laboratory Results 11/28/17 21:35 Red Blood Count 4.76, Mean Corpuscular Volume 92.2, Mean Corpuscular Hemoglobin 30.9, Mean Corpuscular Hemoglobin Concent 33.5, Mean Platelet Volume 10.4, Neutrophils (%) (Auto) 50.8, Lymphocytes (%) (Auto) 39.7, Monocytes (%) (Auto) 7.2, Eosinophils (%) (Auto) 1.3, Basophils (%) (Auto) 0.7, Neutrophils # (Auto) 4.84, Lymphocytes # (Auto) 3.79, Monocytes # (Auto) 0.69, Eosinophils # (Auto) 0.12, Basophils # (Auto) 0.07 11/29/17 00:30 Test 11/28/17 21:35 11/28/17 21:50 11/28/17 23:20 11/28/17 23:34 White Blood Count 9.54 K/uL (4.8-10.8) Red Blood Count 4.76 M/uL (4.7-6.1) Hemoglobin 14.7 g/dL (14.0-18.0) Hematocrit 43.9 % (42-52) Mean Corpuscular Volume 92.2 fL (80-100) Mean Corpuscular Hemoglobin 30.9 pg (25-34) Mean Corpuscular Hemoglobin Concent 33.5 g/dl (32-36) Platelet Count 255 K/uL (130-400) Mean Platelet Volume 10.4 fL (7.4-10.4) Neutrophils (%) (Auto) 50.8 % Lymphocytes (%) (Auto) 39.7 % Monocytes (%) (Auto) 7.2 % Eosinophils (%) (Auto) 1.3 % Basophils (%) (Auto) 0.7 % Neutrophils # (Auto) 4.84 K/uL (1.4-6.5) Lymphocytes # (Auto) 3.79 K/uL (1.2-3.4) Monocytes # (Auto) 0.69 K/uL (0.11-0.59) Eosinophils # (Auto) 0.12 K/uL (0-0.5) Basophils # (Auto) 0.07 K/uL (0-0.2) RDW Standard Deviation 50.5 fL (36.4-46.3) RDW Coefficient of Variation 15.0 % (11.5-14.5) Immature Granulocyte % (Auto) 0.3 % Immature Granulocyte # (Auto) 0.03 K/uL (0.00-0.02) Prothrombin Time 12.7 SECONDS (9.0-12.0) Prothromb Time International Ratio 1.2 (0.9-1.1) Activated Partial Thromboplast Time 28.6 SECONDS (21.0-31.0) Partial Thromboplastin Ratio 1.1 Troponin I 0.015 ng/ml (0-0.045) Digoxin Level 0.7 ng/ml (0.8-2.0) Influenza Type A Antigen Neg for Influ A (NEG) Influenza Type B Antigen Neg for Influ B (NEG) Urine Color DK YELLOW Urine Appearance CLEAR (CLEAR) Urine pH 5.0 (4.5-7.5) Urine Specific Finley 1.030 (1.000-1.030) Urine Protein NEG (NEG) Urine Glucose (UA) 3+ (NEG) Urine Ketones TRACE (NEG) Urine Occult Blood NEG (NEG) Urine Nitrite NEG (NEG) Urine Bilirubin NEG (NEG) Urine Urobilinogen NEG (NEG) Urine Leukocyte Esterase NEG (NEG) Bedside Hemoglobin 14.6 g/dl (14.0-18.0) Bedside Hematocrit 43 % (42-52) Bedside Sodium 136 mEq/L (135-144) Bedside Potassium 4.6 mEq/L (3.3-5.0) Bedside Chloride 97 mEq/L (101-112) Bedside Total CO2 26 mEq/l (24-31) Bedside Blood Urea Nitrogen 31 mg/dl (7-18) Bedside Creatinine 1.6 mg/dl (0.6-1.3) Bedside Glucose (other) 140 mg/dl (70-99) Bedside Ionized Calcium (Matty) 1.19 mmol/l (1.12-1.32) Test 11/29/17 00:30 Anion Gap 9.0 mmol/L (3-11) Estimated GFR () 51.0 Estimated GFR (Non- 44.0 BUN/Creatinine Ratio 19.6 (10-20) Lactic Acid Level 2.0 mmol/L (0.4-2.0) Calcium Level 8.6 mg/dl (8.5-10.1) Magnesium Level 1.0 mg/dl (1.8-2.4) Total Bilirubin 0.8 mg/dl (0.2-1) Aspartate Amino Transf (AST/SGOT) 96 U/L (15-37) Alanine Aminotransferase (ALT/SGPT) 157 U/L (12-78) Alkaline Phosphatase 183 U/L (45-117) Total Protein 7.0 gm/dl (6.4-8.2) Albumin 2.8 gm/dl (3.4-5.0) Globulin 4.2 gm/dl (2.5-4.0) Albumin/Globulin Ratio 0.7 (0.9-2) Lipase 255 U/L (73-393) Procalcitonin 0.07 ng/ml (0-0.5) Thyroid Stimulating Hormone (TSH) 2.710 uIu/ml (0.300-4.500) Laboratory results reviewed by me Medications Administered Medications (Trade) Dose Ordered Sig/Katherine Route Start Time Stop Time Status Last Admin Dose Admin Sodium Chloride 1,000 ml @ 999 mls/hr Q1H1M STAT IV 11/28/17 21:14 11/28/17 22:14 DC 11/28/17 21:14 999 MLS/HR Aztreonam 2000 mg/ Dextrose 110 ml @ 100 mls/hr ONE STAT IV 11/28/17 23:43 11/29/17 00:48 DC 11/28/17 23:58 100 MLS/HR Vancomycin HCl (Vancomycin 1gm/ 270ml Nss) 1 gm NOW STAT IV 11/28/17 23:43 11/28/17 23:46 DC 11/29/17 00:29 1 GM Sodium Chloride 1,000 ml @ 125 mls/hr Q8H STAT IV 11/28/17 23:58 11/29/17 07:57 11/29/17 00:05 125 MLS/HR ECG Per My Interpretation Indication: SOB/dyspnea Rate (beats per minute): 84 Rhythm: sinus rhythm Findings: no ectopy, other (pr, qrs, qt levels within normal limits, no st elevation or depression. ) ED Course 2117: The patient was evaluated in room C7. A complete history and physical exam was performed. Patient was immediately seen on arrival in the emergency department. He is noted to be hypotensive and tachycardic. Large-bore intravenous access was obtained. Patient was placed on the monitor. Fluids were started.Ordered Sodium Chloride 1000 ml @ 999 mls/hr IV 2357: I re-evaluated the patient. His vital signs are stable status post IV fluids. The patient has acute kidney injury. Previous creatinine of 0.8, today his levels are 1.6. Elevation is likely due to not eating and drinking properly. Lactic acid levels are also elevated. Unclear if this is due to the patient not eating or drinking properly or due to possible pneumonia on chest x- ray. The patient will be treated imperially with broad spectrum antibiotics for pneumonia as he was recently in a senior living. I discussed the patient's case with Dr. Shanika Bales, he agrees with the treatment plan. Blood culture sent. Medical Decision vital signs are stable status post IV fluids. The patient has acute kidney injury. Previous creatinine of 0.8, today his levels are 1.6. Elevation is likely due to not eating and drinking properly. Lactic acid levels are also elevated. Unclear if this is due to the patient not eating or drinking properly or due to possible pneumonia on chest x-ray. The patient will be treated imperially with broad spectrum antibiotics for pneumonia as he was recently in a senior living. I discussed the patient's case with Dr. Shanika Bales, he agrees with the treatment plan. Blood culture sent. Medication Reconcilliation Current Medication List: was personally reviewed by me Blood Pressure Screening Patient's blood pressure: Normal blood pressure Consults Time Called: [phone] Consulting Physician: Dr. Shanika Stone [facility] Returned Call: [phone] I discussed the patient's case with Dr. Shanika Stone [facility]. He will evaluate the patient for further care and treatment. Impression Primary Impression: TIO (acute kidney injury) Additional Impressions: HCAP (healthcare-associated pneumonia) Sepsis Critical Care I have personally spent greater than 76 minutes of critical care time in the direct management of this patient. This includes bedside care, interpretation of diagnostic studies, and testing, discussion with consultants, patient, and family members, and other required patient management activities. This 76 minutes is in excess of all separately billable procedures. Scribe Attestation The scribe's documentation has been prepared under my direction and personally reviewed by me in its entirety. I confirm that the note above accurately reflects all work, treatment, procedures, and medical decision making performed by me. The chart was completed utilizing [employer] Speech voice recognition software. Grammatical errors, random word insertions, pronoun errors, and incomplete sentences are an occasional consequence of this system due to software limitations, ambient noise, and hardware issues. Any formal questions or concerns about the content, text, or information contained within the body of this dictation should be directly addressed to the physician for clarification. Departure Information Dispostion Being Evaluated By Hospitalist Referrals Mohan Perry M.D. (PCP) Patient Instructions My [facility] Problem Qualifiers Additional Impressions: Sepsis Sepsis type: sepsis due to unspecified organism Qualified Codes: A41.9 - Sepsis, unspecified organism
[2017-11-28] MEDS ORDERED: ALBU18002 INH (21:56)
[2017-11-28] MEDS ORDERED: ASCO500T16 PO (21:57)
[2017-11-28] MEDS ORDERED: ASPI81TA28 PO (21:58)
--- NOTE | 2017-11-28 21:58 | DIAGNOSTIC IMAGING REPORT ---
CHEST ONE VIEW PORTABLE CLINICAL HISTORY: cough fever vomitting nausea. Vomiting. COMPARISON STUDY: 11/10/2017 FINDINGS: Minimal right basilar atelectatic or infiltrative change. This is unaltered from the prior exam. Lungs otherwise are clear. No significant cardiac enlargement. IMPRESSION: Minimal infiltrate versus atelectasis versus right base. No change from the prior study. The above report was generated using voice recognition software. It may contain grammatical, syntax or spelling errors. Electronically signed by: Derik Nelson M.D. 11/28/2017 9:57 PM Dictated Date/Time: 11/28/2017 9:56 PM
[2017-11-28] MEDS ORDERED: B COCAP3 PO (21:59)
[2017-11-28 22:00] LABS: BASO % 0.7 %; BASO ABS # 0.07 K/uL (0-0.2); EOS % 1.3 %; EOS ABS # 0.12 K/uL (0-0.5); HEMATOCRIT 43.9 % (42-52); HEMOGLOBIN 14.7 g/dL (14.0-18.0); IG# 0.03 K/uL (0.00-0.02); LYMPH % 39.7 %; LYMPH ABS # 3.79 K/uL (1.2-3.4); MEAN CELL VOLUME 92.2 fL (80-100); MEAN CORPUSCULAR HEMOGLOBIN 30.9 pg (25-34); MEAN CORPUSCULAR HGB CONC 33.5 g/dl (32-36); MEAN PLATELET VOLUME 10.4 fL (7.4-10.4); MONO % 7.2 %; MONO ABS # 0.69 K/uL (0.11-0.59); NEUT % 50.8 %; NEUT ABS # 4.84 K/uL (1.4-6.5); PLATELET COUNT 255 K/uL (130-400); RED CELL DISTRIBUTION WIDTH SD 50.5 fL (36.4-46.3); WHITE BLOOD COUNT 9.54 K/uL (4.8-10.8)
[2017-11-28] MEDS ORDERED: CANA1TAB PO (22:00)
[2017-11-28] MEDS ORDERED: CARV6.252 PO (22:01)
[2017-11-28] MEDS ORDERED: CLB/200 PO (22:02)
[2017-11-28] MEDS ORDERED: CHOL500015 PO (22:04)
[2017-11-28] MEDS ORDERED: LNX125 PO (22:05)
[2017-11-28] MEDS ORDERED: GABA-113 PO (22:06)
[2017-11-28] MEDS ORDERED: ADVIN25/60 INH (22:06)
[2017-11-28] MEDS ORDERED: GLIM4TAB2 PO (22:08)
[2017-11-28] MEDS ORDERED: LISI-788 PO (22:09)
[2017-11-28 22:10] LABS: INR 1.2 (0.9-1.1); PTT PATIENT 28.6 SECONDS (21.0-31.0)
[2017-11-28] MEDS ORDERED: LOVA20TA4 PO (22:10)
[2017-11-28] MEDS ORDERED: MAGN400T6 PO (22:11)
[2017-11-28] MEDS ORDERED: MELA1TAB5 PO (22:12)
[2017-11-28] MEDS ORDERED: MULT-506 PO (22:13)
[2017-11-28] MEDS ORDERED: METF-384 PO (22:13)
[2017-11-28] MEDS ORDERED: NSP500 PO (22:16)
[2017-11-28] MEDS ORDERED: OMEP40CA41 PO (22:17)
[2017-11-28] MEDS ORDERED: TAMS0.4C38 PO (22:18)
[2017-11-28] MEDS ORDERED: CHN/1 PO (22:19)
[2017-11-28 23:10] LABS: INFLUENZA B ANTIGEN Neg for Influ B (NEG)
[2017-11-28] MEDS ORDERED: AZTREONAM IV 2,000 MG in DEXTROSE 5% 100ML 100 ML IV STA (23:43)
[2017-11-28] MEDS ORDERED: VANCOMYCIN 1GM/270ML NSS IV STA ×2 (23:43→23:58)
[2017-11-28 23:45] LABS: ISTAT CREATININE 1.6 mg/dl (0.6-1.3); ISTAT IONIZED CALCIUM 1.19 mmol/l (1.12-1.32); ISTAT POTASSIUM 4.6 mEq/L (3.3-5.0)
[2017-11-29 01:20] LABS: ALBUMIN 2.8 gm/dl (3.4-5.0); ALKALINE PHOSPHATASE 183 U/L (45-117); ALT/SGPT 157 U/L (12-78); AST/SGOT 96 U/L (15-37); BLOOD UREA NITROGEN 31 mg/dl (7-18); CALCIUM 8.6 mg/dl (8.5-10.1); CARBON DIOXIDE 26 mmol/L (21-32); CREATININE 1.57 mg/dl (0.60-1.40); GLUCOSE 140 mg/dl (70-99); LIPASE 255 U/L (73-393); POTASSIUM 4.3 mmol/L (3.5-5.1); SODIUM 135 mmol/L (136-145)
[2017-11-29] MEDS ORDERED: INSULIN ASPART 100 UNITS/ML 3 ML PEN SC ONE (02:47)
[2017-11-29] MEDS ORDERED: DOCUSATE SODIUM 100 MG CAP PO ONE (02:55)
[2017-11-29] MEDS ORDERED: POLYETHYLENE (MIRALAX) 17 GM PACK PO ONE (02:55)
[2017-11-29] MEDS ORDERED: GLUCOSE 10 TABS/TUBE PO PRN (03:00)
[2017-11-29] MEDS ORDERED: POLYETHYLENE (MIRALAX) 17 GM PACK PO PRN (03:00)
[2017-11-29] MEDS ORDERED: HYDROmorphone INJ 0.5 MG/0.5 ML SYR IV PRN (03:00)
[2017-11-29] MEDS ORDERED: DEXTROSE 50% 50 ML SYR IV PRN (03:00)
[2017-11-29] MEDS ORDERED: GLUCOSE 40% GEL 15 GM TUBE PO PRN (03:00)
[2017-11-29] MEDS ORDERED: GLUCAGON FOR INJ 1 MG VIAL SQ PRN (03:00)
[2017-11-29] MEDS ORDERED: TRAMADOL HCL 50 MG TAB PO PRN (03:00)
[2017-11-29] MEDS ORDERED: SODIUM CHLORIDE 0.9% 1000ML 1,000 ML IV ONE (03:00)
[2017-11-29] MEDS ORDERED: PROCHLORPERAZINE INJ 5 MG in SYRINGE 4 ML IV PRN (03:00)
[2017-11-29] MEDS ORDERED: ACETAMINOPHEN 325 MG TAB PO PRN (03:00)
[2017-11-29] MEDS: MAGNESIUM SULFATE 1GM / D5W 1 GM in PREMIXED IN D5W 100 ML IV SCH ×4 (04:16→07:17)
[2017-11-29 04:35] VITALS: BP 106/63; PULSE 81; TEMP 36.3; O2SAT 95; Ht 167.6 cm; Wt 103.0 kg
[2017-11-29] MEDS ORDERED: HEPARIN SOD 5000 UNIT/0.5 ML CARP SQ SCH (06:00)
[2017-11-29] MEDS: INSULIN ASPART 100 UNITS/ML 3 ML PEN SC SCH ×2 (06:30→11:00)
--- NOTE | 2017-11-29 06:34 | DIAGNOSTIC IMAGING REPORT ---
HEAD WITHOUT CONTRAST (CT) CLINICAL HISTORY: 72 years-old Male with allen. Acute headache TECHNIQUE: Multiple axial CT images of the head were obtained without contrast. A dose lowering technique was utilized adhering to the principles of ALARA. CT DOSE: 614.27 mGy.cm COMPARISON: None. FINDINGS: No acute intracranial hemorrhage, midline shift, intracranial mass, hydrocephalus, territorial ischemia or abnormal extra-axial collection. Mild atrophy. Ill-defined areas of low-attenuation within the periventricular white matter suggest chronic microvascular ischemic changes. Cerebral vascular calcifications are seen at the level of the skull base. The calvarium is intact. Mastoid air cells and middle ear cavities are clear. Mild to moderate mucosal thickening with bubbly secretions and air-fluid level of the right maxillary sinus. Mild left maxillary sinus disease. Mild ethmoid sinus disease. The right frontal sinus is completely opacified. Soft tissues are unremarkable. Orbits are within normal limits. IMPRESSION: No acute intracranial abnormality. The above report was generated using voice recognition software. It may contain grammatical, syntax or spelling errors. Electronically signed by: Iván Murphy M.D. 11/29/2017 6:33 AM Dictated Date/Time: 11/29/2017 6:31 AM
[2017-11-29 06:57] VITALS: BP 144/62; PULSE 87; TEMP 36.2; O2SAT 95
--- NOTE | 2017-11-29 07:46 | DIAGNOSTIC IMAGING REPORT ---
CT SCAN OF THE ABDOMEN AND PELVIS WITHOUT IV CONTRAST CLINICAL HISTORY: Generalized abdominal pain. Constipation. COMPARISON STUDY: Pelvic CT dated 03/17/2010. Chest CT dated 06/08/2009. TECHNIQUE: CT scan of the abdomen and pelvis is performed from the lung bases to the proximal femora. Images are reviewed in the axial, sagittal, and coronal planes. IV contrast was not administered for this examination as per the referring clinician. Note that the examination was performed in suboptimal fashion without oral and IV contrast. A dose lowering technique was utilized adhering to the principles of ALARA. CT DOSE: 1159.98 mGy.cm FINDINGS: Lung bases: The heart is normal in size and without pericardial effusion. The coronary arteries and aortic valve leaflets are densely calcified. There is a 1.5 cm pulmonary nodule at the right lung base seen on image #52. Foci of scarring versus atelectasis are present at both lung bases. No airspace consolidation or pleural effusion is identified. Calcified pleural plaque is seen at the right lung base. Liver: The unenhanced liver is normal in size, contour, and attenuation. There is no intrahepatic biliary ductal dilatation. There are scattered calcified hepatic granulomas. A subcentimeter hypodensity in the right lobe seen on image #94 likely represents a cyst but is too small for definitive characterization. Gallbladder: Surgically absent noting clips in the gallbladder fossa. Spleen: The spleen is mildly enlarged measuring 14.0 cm and length. Pancreas: Unremarkable. Adrenal glands: Unremarkable. Kidneys: The unenhanced kidneys demonstrate cortical atrophy and are without hydronephrosis. There is a punctate nonobstructing calculus in the lower pole the right kidney. No left renal calculi are identified. There is no evidence of contour deforming renal mass lesion. Abdominal vasculature: The abdominal aorta is normal in course and caliber noting moderate to advanced atherosclerotic calcification. Bowel: There is moderate colonic fecal retention. No bowel obstruction is seen. The appendix is well-visualized and normal. Peritoneum: There is no intraperitoneal free air or abdominal ascites. There is asymmetric atrophy of the left iliopsoas muscular tear. Lymphadenopathy: None. Pelvic viscera: The bladder, prostate, and seminal vesicles are normal as visualized. Skeletal structures: The skeletal structures are osteopenic. There is moderate to advanced lumbosacral spondylosis and scoliosis. Arthritic change is also seen in the hips and sacroiliac joints. No lytic or blastic lesions are seen. There are numerous healed right-sided rib fractures. IMPRESSION: 1. Suboptimal examination without oral and IV contrast 2. There are no acute infectious or inflammatory findings in the abdomen or pelvis. 3. Moderate colonic fecal retention. No bowel obstruction is identified. 4. There is a 1.5 cm pulmonary nodule at the right lung base. This is been seen dating back to at least 2008 when measured it up to 0.9 cm. A slow growing low-grade neoplasm such as carcinoid is a differential consideration. Nonemergent follow-up with a thoracic surgeon is recommended. 5. Nonobstructing right renal calculus. 6. Additional findings as above. Electronically signed by: Eric Escalera M.D. 11/29/2017 7:44 AM Dictated Date/Time: 11/29/2017 7:16 AM
[2017-11-29 08:00] VITALS: O2SAT 95
[2017-11-29] MEDS ORDERED: MULTIVITAMIN TAB PO SCH (08:00)
[2017-11-29] MEDS ORDERED: PANTOprazole SOD 40 MG TAB PO SCH (08:00)
[2017-11-29] MEDS ORDERED: NIASPAN 500 MG TABCR PO SCH (08:00)
[2017-11-29] MEDS ORDERED: DOCUSATE SODIUM 100 MG CAP PO SCH (08:00)
[2017-11-29] MEDS ORDERED: METOPROLOL TARTRATE 25 MG TAB PO SCH (08:00)
[2017-11-29] MEDS ORDERED: INSULIN GLARGINE SOLOSTAR 100 UNITS/ML 3 ML PEN SC SCH (08:00)
[2017-11-29] MEDS ORDERED: VARENICLINE 0.5 MG TAB PO SCH (08:00)
[2017-11-29] MEDS ORDERED: ASPIRIN 81 MG ECTAB PO SCH (08:00)
[2017-11-29] MEDS: GABAPENTIN 100 MG CAP PO SCH ×2 (08:22→13:04)
[2017-11-29] MEDS ORDERED: MAGNESIUM SULFATE 1GM / D5W 1 GM in PREMIXED IN D5W 100 ML IV SCH ×2 (09:15→11:30)
[2017-11-29] MEDS: OXYCODONE/ACETAMINOPHEN 5-325 TAB PO PRN ×2 (09:44→16:51)
--- NOTE | 2017-11-29 10:30 | HISTORY & PHYSICAL EXAMINATION ---
DATE OF ADMISSION: 11/29/2017 PRIMARY CARE PHYSICIAN: Dr. Perry. CHIEF COMPLAINT: Dizziness, weakness, elevated heart rate, and low BP as per records. HISTORY OF PRESENT ILLNESS: History is obtained from the patient and records. Medical history is significant for hypertension, PAFib not on anticoagulation due to bleeding hx, PVD, DM2 on oral meds, NAFLD, COPD, past tobacco abuse, Lydszqb-Zqhtu-Vvsic as per records, Recent confinement 3 weeks ago for influenza pneumonia. Patient discharged to [facility] for rehabilitation. Patient discharged home from [facility] about 5 days ago. At home, the patient noted by daughter to have decreased fluid intake. Usual cough symptoms. No chest pain. No shortness of breath. Achy lower abdominal pain. Constipated for 2 days, transient emesis. Vague achy headache symptoms. Heart beat little fast, blood pressure a little low. Patient denies unusual anxiety or depression. Patient brought to the Emergency Room initially 80s. SBP initially 80s later 100s after IVF bolus. Given IV Vancomycin, Azactam for possible sepsis. MEDICAL HISTORY: As above. 2D echo 2012 EF 55-60% aortic valve sclerosis, LVH SURGERIES: He has had nasal reconstruction, toe surgery, neck surgery, tonsillectomy HOME MEDICATIONS: Include ascorbic acid, aspirin, ProAir, vitamin D, Invokana, Coreg, Celebrex, vitamin D3, digoxin, Advair Diskus, glimepiride, Neurontin, lisinopril, Mevacor, melatonin, Glucophage, mag ox, multivitamins, Niaspan, Prilosec, Flomax and Chantix. ALLERGIES: PENICILLIN. FAMILY HISTORY: Heart disease. PERSONAL AND SOCIAL HISTORY: Past tobacco abuse. No chronic intake of alcohol. Retired [employer] employee. REVIEW OF SYSTEMS: As per HPI, all 10 systems reviewed, all other ROS negative. PHYSICAL EXAMINATION: VITAL SIGNS: Blood pressure was noted to be 89/54, later 100/60, DC 100, RR 18 T 36.7, and sats 95 on room air. GENERAL: Noted to be comfortable, obese and distress. SKIN: Normal color and warm. HEENT: alopecia. [place] palpebral conjunctivae, no ptosis, dry buccal mucosa NECK: Short neck, supple, nontender. LUNGS: Decreased breath sounds. No tenderness. HEART: RRRr. No murmur. ABDOMEN: Some distension. Hypogastric tenderness. EXTREMITIES: No edema. No tenderness, no gross deformities NEUROLOGIC: No gross deformities. Coherent. Slightly hard of hearing. Decreased lower extremity strength (chronic) LABORATORY DATA: Hemoglobin was noted to be 14 WBC 9.5 and platelets noted to be 255. Sodium noted to be 135, potassium 4.3, chloride 100, CO2 of 26, BUN 31, and creatinine 1.7 from 0.84. Hemoglobin A1c from 10/2017 was 8.1. EKG as per my interpretation rate 80, NSR, TW flattening inferior leads , low voltage Trace ketones in the UA. CT head showed no acute pathology. Chest x-ray, atelectasis. CT abdomen and pelvis showed moderate colonic fecal retention. ASSESSMENT: 1. Episodic hypotension multifactorial : ARF, ketonuria, clinical dehydration secondary to decreased p.o. intake as per daughter constipation mismatch between antihypertensive regimen (Coreg, etc) and patient baseline BP (review of inpatient BP monitoring from 05/2017 discloses a somewhat low SBP range of 90-110s) ro structural cardiac dysfunction 2. PAF, px NSR not on Coumadin secondary to past history of bleeding 3. hx PVD 4. Chronic obstructive pulmonary disease, no acute exacerbation 5. past tobacco abuse. 6. DM2, oral meds suboptimal control as of recent inpatient HgA1c of 8.1 in October,. 7. Recent confinement for flu pneumonia No new cough symptoms as per patient. PLAN: GMF Monitor creatinine response to IV fluids. Change Coreg to Lopressor. Hold home FLORA inhibitor, diuretics for now until creatinine at baseline. stop home NSAIDs. home ACEI may need to be initiated at a lower dos following normal renal function given borderline BP. TTE RE episodic hypotension bowel regimen hold off on additional antibiotics as patient does not have new cough symptoms and is not septic. PT/OT eval. ISS BG goal 140-180 DVT prophylaxis, Heparin subQ. Full code. MTDD
[2017-11-29 10:37] LABS: ALBUMIN 2.5 gm/dl (3.4-5.0); CALCIUM 8.5 mg/dl (8.5-10.1); CREATININE 1.12 mg/dl (0.60-1.40); POTASSIUM 3.9 mmol/L (3.5-5.1)
[2017-11-29 10:40] LABS: TOTAL PROTEIN 6.2 gm/dl (6.4-8.2)
[2017-11-29] MEDS ORDERED: NURSING VERBAL MED ORDER ONE (11:00)
[2017-11-29 15:53] VITALS: BP 120/76; PULSE 81; TEMP 36.3; O2SAT 96
[2017-11-29 16:00] VITALS: O2SAT 96
[2017-11-29] MEDS ORDERED: DIGOXIN 0.125 MG TAB PO SCH (16:00)
[2017-11-29 16:01] VITALS: BP 120/76; PULSE 81; TEMP 36.3; O2SAT 96
--- NOTE | 2017-11-29 16:56 | Progress Note ---
Internal Med Progress Note Date of Service: Nov 29, 2017. Provider Documentation: SUBJECTIVE: Patient denies pain or weakness OBJECTIVE: Exam: General- no acute distress Eyes- EOMI Neck- trachea midline, no JVD Lungs- CTABL Heart- RRR Abdomen- soft, nontender, + bowel sounds Extremities- no edema Neuro- no focal neurological deficits ASSESSMENT & PLAN: Patient was treated for low blood pressure (hypotension) with IV fluids, Hypotension likely due to dehydration vs blood pressure medications. Patient had inpatient echocardiogram performed which was ordered by the admitting physician as part of hypotension workup - full results pending Patient also treated for hypomagnesemia, admission serum magnesium was originally 1, Patient received IV magnesium and started on oral magnesium supplements. Patient is asked to stop medications that has diuretics for blood pressure control. Patient also has Chronic Kidney Disease and is asked to stop Celebrex for musculoskeletal pain and to see a nephrology doctor for chronic kidney disease DISPOSITION Discharge home with changes made to blood pressure medications Follow up 12/02/2017 1:20 PM Mohan Perry MD Internal Medicine [facility] 12/09/2017 1:50 PM Vianey Pickard MD Nephrology [facility] Vital Signs: Date Time Temp Pulse Resp B/P (MAP) Pulse Ox O2 Delivery O2 Flow Rate FiO2 11/29/17 16:01 36.3 81 18 96 Room Air 11/29/17 16:00 96 Room Air 11/29/17 15:53 36.3 81 18 120/76 (91) 96 Room Air 11/29/17 15:40 82 11/29/17 08:00 95 Room Air 11/29/17 06:57 36.2 87 20 144/62 (89) 95 Room Air 11/29/17 04:35 36.3 81 18 106/63 95 Room Air 11/29/17 02:18 88 20 140/86 96 11/29/17 01:30 81 20 97/54 97 Room Air 11/29/17 00:02 88 20 109/71 96 Room Air 11/28/17 23:27 78 11/28/17 22:52 98 20 105/83 95 Room Air 11/28/17 22:16 102/57 11/28/17 22:03 87 20 89/58 95 Room Air 11/28/17 21:00 36.7 100 20 89/54 95 Room Air Lab Results: Results Past 24 Hours Test 11/28/17 21:35 11/28/17 21:45 11/28/17 21:50 11/28/17 23:20 Range/Units White Blood Count 9.54 4.8-10.8 K/uL Red Blood Count 4.76 4.7-6.1 M/uL Hemoglobin 14.7 14.0-18.0 g/dL Hematocrit 43.9 42-52 % Mean Corpuscular Volume 92.2 80-100 fL Mean Corpuscular Hemoglobin 30.9 25-34 pg Mean Corpuscular Hemoglobin Concent 33.5 32-36 g/dl Platelet Count 255 130-400 K/uL Mean Platelet Volume 10.4 7.4-10.4 fL Neutrophils (%) (Auto) 50.8 % Lymphocytes (%) (Auto) 39.7 % Monocytes (%) (Auto) 7.2 % Eosinophils (%) (Auto) 1.3 % Basophils (%) (Auto) 0.7 % Neutrophils # (Auto) 4.84 1.4-6.5 K/uL Lymphocytes # (Auto) 3.79 1.2-3.4 K/uL Monocytes # (Auto) 0.69 0.11-0.59 K/uL Eosinophils # (Auto) 0.12 0-0.5 K/uL Basophils # (Auto) 0.07 0-0.2 K/uL RDW Standard Deviation 50.5 36.4-46.3 fL RDW Coefficient of Variation 15.0 11.5-14.5 % Immature Granulocyte % (Auto) 0.3 % Immature Granulocyte # (Auto) 0.03 0.00-0.02 K/uL Prothrombin Time 12.7 9.0-12.0 SECONDS Prothromb Time International Ratio 1.2 0.9-1.1 Activated Partial Thromboplast Time 28.6 21.0-31.0 SECONDS Partial Thromboplastin Ratio 1.1 Troponin I 0.015 0-0.045 ng/ml Digoxin Level 0.7 0.8-2.0 ng/ml Lactic Acid Level 2.7 0.4-2.0 mmol/L Influenza Type A Antigen Neg for Influ A NEG Influenza Type B Antigen Neg for Influ B NEG Urine Color DK YELLOW Urine Appearance CLEAR CLEAR Urine pH 5.0 4.5-7.5 Urine Specific [place] 1.030 1.000-1.030 Urine Protein NEG NEG Urine Glucose (UA) 3+ NEG Urine Ketones TRACE NEG Urine Occult Blood NEG NEG Urine Nitrite NEG NEG Urine Bilirubin NEG NEG Urine Urobilinogen NEG NEG Urine Leukocyte Esterase NEG NEG Test 11/28/17 23:34 11/29/17 00:30 11/29/17 04:11 11/29/17 07:44 Range/Units Bedside Hemoglobin 14.6 14.0-18.0 g/dl Bedside Hematocrit 43 42-52 % Bedside Sodium 136 135-144 mEq/L Bedside Potassium 4.6 3.3-5.0 mEq/L Bedside Chloride 97 101-112 mEq/L Bedside Total CO2 26 24-31 mEq/l Anion Gap 19.0 9.0 3-11 mmol/L Bedside Blood Urea Nitrogen 31 7-18 mg/dl Bedside Creatinine 1.6 0.6-1.3 mg/dl Bedside Glucose (other) 140 70-99 mg/dl Bedside Ionized Calcium (Matty) 1.19 1.12-1.32 mmol/l Sodium Level 135 136-145 mmol/L Potassium Level 4.3 3.5-5.1 mmol/L Chloride Level 100 98-107 mmol/L Carbon Dioxide Level 26 21-32 mmol/L Blood Urea Nitrogen 31 7-18 mg/dl Creatinine 1.57 0.60-1.40 mg/dl Estimated GFR () 51.0 Estimated GFR (Non- 44.0 BUN/Creatinine Ratio 19.6 10-20 Random Glucose 140 70-99 mg/dl Lactic Acid Level 2.0 0.4-2.0 mmol/L Calcium Level 8.6 8.5-10.1 mg/dl Magnesium Level 1.0 1.8-2.4 mg/dl Total Bilirubin 0.8 0.2-1 mg/dl Aspartate Amino Transf (AST/SGOT) 96 15-37 U/L Alanine Aminotransferase (ALT/SGPT) 157 12-78 U/L Alkaline Phosphatase 183 45-117 U/L Total Protein 7.0 6.4-8.2 gm/dl Albumin 2.8 3.4-5.0 gm/dl Globulin 4.2 2.5-4.0 gm/dl Albumin/Globulin Ratio 0.7 0.9-2 Lipase 255 73-393 U/L Procalcitonin 0.07 0-0.5 ng/ml Thyroid Stimulating Hormone (TSH) 2.710 0.300-4.500 uIu/ml Bedside Glucose 137 137 70-99 mg/dl Test 11/29/17 09:55 11/29/17 11:45 Range/Units Sodium Level 133 136-145 mmol/L Potassium Level 3.9 3.5-5.1 mmol/L Chloride Level 100 98-107 mmol/L Carbon Dioxide Level 26 21-32 mmol/L Anion Gap 7.0 3-11 mmol/L Blood Urea Nitrogen 26 7-18 mg/dl Creatinine 1.12 0.60-1.40 mg/dl Est Creatinine Clear Calc Drug Dose 69.0 ml/min Estimated GFR () 76.7 Estimated GFR (Non- 66.2 BUN/Creatinine Ratio 23.1 10-20 Random Glucose 128 70-99 mg/dl Calcium Level 8.5 8.5-10.1 mg/dl Magnesium Level 1.8 1.8-2.4 mg/dl Total Bilirubin 0.5 0.2-1 mg/dl Aspartate Amino Transf (AST/SGOT) 81 15-37 U/L Alanine Aminotransferase (ALT/SGPT) 128 12-78 U/L Alkaline Phosphatase 152 45-117 U/L Total Protein 6.2 6.4-8.2 gm/dl Albumin 2.5 3.4-5.0 gm/dl Globulin 3.7 2.5-4.0 gm/dl Albumin/Globulin Ratio 0.7 0.9-2 Bedside Glucose 129 70-99 mg/dl Microbiology Results 11/28/17 Blood Culture, Received Pending 11/28/17 Blood Culture, Received Pending
[2017-11-29] MEDS ORDERED: MGNO400 PO (17:04)
--- NOTE | 2017-11-29 17:04 | Discharge Instructions ---
Discharge Instructions Date of Service Nov 29, 2017. Admission Reason for Admission: ARF Discharge Discharge Diagnosis / Problem: hypotension, hypomagnesemia, CKD, dehydration Discharge Goals Goal(s): Improve disease control Activity Recommendations Activity Limitations: per Instructions/Follow-up section Shower/Bathe: no limitations . Instructions / Follow-Up Instructions / Follow-Up Patient was treated for low blood pressure (hypotension) with IV fluids, Hypotension likely due to dehydration vs blood pressure medications. Patient had inpatient echocardiogram performed which was ordered by the admitting physician as part of hypotension workup - full results pending Patient also treated for hypomagnesemia, admission serum magnesium was originally 1, Patient received IV magnesium and started on oral magnesium supplements. Patient is asked to stop medications that has diuretics for blood pressure control. Patient also has Chronic Kidney Disease and is asked to stop Celebrex for musculoskeletal pain and to see a nephrology doctor for chronic kidney disease DISPOSITION Discharge home with changes made to blood pressure medications Follow up 12/02/2017 1:20 PM Mohan Perry MD Internal Medicine [facility] 12/09/2017 1:50 PM Vianey Pickard MD Nephrology [facility] Current Hospital Diet Patient's current hospital diet: AHA Diet (Heart Healthy), Diabetes Type 2 Diet Discharge Diet Recommended Diet: AHA Diet (Heart Healthy), Diabetes Type 2 Diet Pending Studies Studies pending at discharge: yes List of pending studies: echocardiogram results Laboratory Results 11/28/17 21:35 Red Blood Count 4.76, Mean Corpuscular Volume 92.2, Mean Corpuscular Hemoglobin 30.9, Mean Corpuscular Hemoglobin Concent 33.5, Mean Platelet Volume 10.4, Neutrophils (%) (Auto) 50.8, Lymphocytes (%) (Auto) 39.7, Monocytes (%) (Auto) 7.2, Eosinophils (%) (Auto) 1.3, Basophils (%) (Auto) 0.7, Neutrophils # (Auto) 4.84, Lymphocytes # (Auto) 3.79, Monocytes # (Auto) 0.69, Eosinophils # (Auto) 0.12, Basophils # (Auto) 0.07 11/29/17 09:55 Test 11/28/17 21:35 11/28/17 21:50 11/28/17 23:20 11/28/17 23:34 White Blood Count 9.54 K/uL (4.8-10.8) Red Blood Count 4.76 M/uL (4.7-6.1) Hemoglobin 14.7 g/dL (14.0-18.0) Hematocrit 43.9 % (42-52) Mean Corpuscular Volume 92.2 fL (80-100) Mean Corpuscular Hemoglobin 30.9 pg (25-34) Mean Corpuscular Hemoglobin Concent 33.5 g/dl (32-36) Platelet Count 255 K/uL (130-400) Mean Platelet Volume 10.4 fL (7.4-10.4) Neutrophils (%) (Auto) 50.8 % Lymphocytes (%) (Auto) 39.7 % Monocytes (%) (Auto) 7.2 % Eosinophils (%) (Auto) 1.3 % Basophils (%) (Auto) 0.7 % Neutrophils # (Auto) 4.84 K/uL (1.4-6.5) Lymphocytes # (Auto) 3.79 K/uL (1.2-3.4) Monocytes # (Auto) 0.69 K/uL (0.11-0.59) Eosinophils # (Auto) 0.12 K/uL (0-0.5) Basophils # (Auto) 0.07 K/uL (0-0.2) RDW Standard Deviation 50.5 fL (36.4-46.3) RDW Coefficient of Variation 15.0 % (11.5-14.5) Immature Granulocyte % (Auto) 0.3 % Immature Granulocyte # (Auto) 0.03 K/uL (0.00-0.02) Prothrombin Time 12.7 SECONDS (9.0-12.0) Prothromb Time International Ratio 1.2 (0.9-1.1) Activated Partial Thromboplast Time 28.6 SECONDS (21.0-31.0) Partial Thromboplastin Ratio 1.1 Troponin I 0.015 ng/ml (0-0.045) Digoxin Level 0.7 ng/ml (0.8-2.0) Influenza Type A Antigen Neg for Influ A (NEG) Influenza Type B Antigen Neg for Influ B (NEG) Urine Color DK YELLOW Urine Appearance CLEAR (CLEAR) Urine pH 5.0 (4.5-7.5) Urine Specific [place] 1.030 (1.000-1.030) Urine Protein NEG (NEG) Urine Glucose (UA) 3+ (NEG) Urine Ketones TRACE (NEG) Urine Occult Blood NEG (NEG) Urine Nitrite NEG (NEG) Urine Bilirubin NEG (NEG) Urine Urobilinogen NEG (NEG) Urine Leukocyte Esterase NEG (NEG) Bedside Hemoglobin 14.6 g/dl (14.0-18.0) Bedside Hematocrit 43 % (42-52) Bedside Sodium 136 mEq/L (135-144) Bedside Potassium 4.6 mEq/L (3.3-5.0) Bedside Chloride 97 mEq/L (101-112) Bedside Total CO2 26 mEq/l (24-31) Bedside Blood Urea Nitrogen 31 mg/dl (7-18) Bedside Creatinine 1.6 mg/dl (0.6-1.3) Bedside Glucose (other) 140 mg/dl (70-99) Bedside Ionized Calcium (Matty) 1.19 mmol/l (1.12-1.32) Test 11/29/17 00:30 11/29/17 09:55 11/29/17 11:45 Lactic Acid Level 2.0 mmol/L (0.4-2.0) Lipase 255 U/L (73-393) Procalcitonin 0.07 ng/ml (0-0.5) Thyroid Stimulating Hormone (TSH) 2.710 uIu/ml (0.300-4.500) Anion Gap 7.0 mmol/L (3-11) Est Creatinine Clear Calc Drug Dose 69.0 ml/min Estimated GFR () 76.7 Estimated GFR (Non- 66.2 BUN/Creatinine Ratio 23.1 (10-20) Calcium Level 8.5 mg/dl (8.5-10.1) Magnesium Level 1.8 mg/dl (1.8-2.4) Total Bilirubin 0.5 mg/dl (0.2-1) Aspartate Amino Transf (AST/SGOT) 81 U/L (15-37) Alanine Aminotransferase (ALT/SGPT) 128 U/L (12-78) Alkaline Phosphatase 152 U/L (45-117) Total Protein 6.2 gm/dl (6.4-8.2) Albumin 2.5 gm/dl (3.4-5.0) Globulin 3.7 gm/dl (2.5-4.0) Albumin/Globulin Ratio 0.7 (0.9-2) Bedside Glucose 129 mg/dl (70-99) Date/Time Source Procedure Growth Status 11/28/17 21:40 Blood Blood Culture Pending Received Hemoglobin A1c Test 11/10/17 13:45 Range/Units Estimated Average Glucose 186 mg/dl Hemoglobin A1c 8.1 H 4.5-5.6 % Medical Emergencies . Who to Call and When: Medical Emergencies: If at any time you feel your situation is an emergency, please call 911 immediately. . Non-Emergent Contact Non-Emergency issues call your: Primary Care Provider, Fruit Raiser . . "Provider Documentation" section prepared by Georges Bray. .
--- NOTE | 2017-11-29 17:21 | ECHOCARDIOGRAM REPORT ---
*NOTICE TO RECEIVING LIBERTARIAN AGENCY This information is strictly Confidential and protected under [place] law. [place] law prohibits you from making any further disclosure of this information unless further disclosure is expressly permitted by the written consent of the person to whom it pertains or is authorized by law. A general authorization for the release of medical or other information is not sufficient for this purpose. Hospital accepts no responsibility if the information is made available to any other person, INCLUDING THE PATIENT. Interpretation Summary * Name: AVINASH LEE Study Date: 11/29/2017 07:38 AM BP: 106/63 mmHg * Patient Location: .[id number] HR: 76 * : 1945 (M/d/yyy) Gender: Male Height: 66 in * Age: 72 yrs Ethnicity: CA Weight: 224 lb * Ordering Physician: Donovan Carey * Referring Physician: Self, Referred * Performed By: Mukesh Klein RCS * * Reason For Study: Low BP * BSA: 2.1 m2 * -- Conclusions -- * The left ventricle is grossly normal size. * There is mild concentric left ventricular hypertrophy. * Left ventricular systolic function is normal. * Ejection Fraction = 60-65%. * The left atrial size is normal. * Right atrial size is normal. * Grossly normal heart valves. Procedure Details * A complete two-dimensional transthoracic echocardiogram was performed (2D, M-mode, Doppler and color flow Doppler). * There were technical limitations due to patient'sPoor acoustic windows secondary to severe lung disease. * A contrast injection of Definity was performed to improve assessment of LV function. * Contrast was injected into an intravenous site in the left arm. * One vial of Definity ultrasound contrast was diluted in normal saline to a total volume of 10 ml. A total of '3' ml of solution was administered during imaging. * Lot # [id number] of Definity utilized for procedure. * Expiration date . * The attending nurse who injected the contrast agent was Gerardo Cuellar RN. * The study was technically difficult. Left Ventricle * The left ventricle is grossly normal size. * There is mild concentric left ventricular hypertrophy. * Ejection Fraction = 60-65%. * Left ventricular systolic function is normal. * The left ventricular wall motion is normal. Right Ventricle * The right ventricle is normal size. * The right ventricular systolic function is normal. Atria * The left atrial size is normal. * Right atrial size is normal. * No ASD detected; PFO is not assessed. Mitral Valve * The mitral valve anatomy is normal. * Significant mitral regurgitation is absent. Tricuspid Valve * The tricuspid valve anatomy is normal. * Significant tricuspid regurgitation is absent. Aortic Valve * The aortic valve is not well visualized. * No hemodynamically significant valvular aortic stenosis. * There is no significant aortic regurgitation. Pulmonic Valve * The pulmonic valve is not well visualized. Great Vessels * The aortic root and proximal ascending aorta are normal sized. Pericardium/Pleural * There is no pericardial effusion. MMode 2D Measurements and Calculations IVSd 1.2 cm IVSs 1.5 cm LVIDd 4.9 cm LVIDs 3.3 cm LVPWd 1.1 cm LVPWs 1.4 cm IVS/LVPW 1.2 FS 32.1 % EDV(Teich) 111.6 ml ESV(Teich) 44.5 ml EF(Teich) 60.2 % EDV(cubed) 116.1 ml ESV(cubed) 36.3 ml EF(cubed) 68.7 % % IVS thick 21.9 % % LVPW thick 34.4 % LV mass(C)d 213.0 grams LV mass(C)dI 101.5 grams/m\S\2 LV mass(C)s 174.4 grams LV mass(C)sI 83.1 grams/m\S\2 SV(Teich) 67.1 ml SI(Teich) 32.0 ml/m\S\2 SV(cubed) 79.8 ml SI(cubed) 38.0 ml/m\S\2 Ao root diam 3.9 cm Ao root area 11.7 cm\S\2 ACS 1.5 cm LA dimension 3.8 cm LA/Ao 0.99 LVAd ap4 32.7 cm\S\2 LVLd ap4 8.6 cm EDV(MOD-sp4) 101.8 ml EDV(sp4-el) 105.5 ml LVAs ap4 16.5 cm\S\2 LVLs ap4 6.6 cm ESV(MOD-sp4) 34.8 ml ESV(sp4-el) 34.9 ml EF(MOD-sp4) 65.9 % EF(sp4-el) 66.9 % LVAd ap2 24.2 cm\S\2 LVLd ap2 7.6 cm EDV(MOD-sp2) 63.4 ml EDV(sp2-el) 65.3 ml LVAs ap2 14.2 cm\S\2 LVLs ap2 6.5 cm ESV(MOD-sp2) 25.3 ml ESV(sp2-el) 26.1 ml EF(MOD-sp2) 60.0 % EF(sp2-el) 60.0 % LVLd %diff -13.73 % EDV(MOD-bp) 85.0 ml LVLs %diff -0.52 % ESV(MOD-bp) 29.4 ml EF(MOD-bp) 65.4 % SV(MOD-sp4) 67.0 ml SI(MOD-sp4) 31.9 ml/m\S\2 SV(MOD-sp2) 38.0 ml SI(MOD-sp2) 18.1 ml/m\S\2 SV(MOD-bp) 55.5 ml SI(MOD-bp) 26.5 ml/m\S\2 SV(sp4-el) 70.6 ml SI(sp4-el) 33.6 ml/m\S\2 SV(sp2-el) 39.2 ml SI(sp2-el) 18.7 ml/m\S\2 Doppler Measurements and Calculations MV E max daryl 72.8 cm/sec MV A max daryl 59.2 cm/sec MV E/A 1.2 MV P1/2t max daryl 102.0 cm/sec MV P1/2t 59.5 msec MVA(P1/2t) 3.7 cm\S\2 MV dec slope 502.2 cm/sec\S\2 MV dec time 0.21 sec Ao V2 max 161.6 cm/sec Ao max PG 10.4 mmHg Ao max PG (full) 6.4 mmHg LV V1 max PG 4.0 mmHg LV V1 max 99.9 cm/sec PA V2 max 100.8 cm/sec PA max PG 4.1 mmHg
--- NOTE | 2017-11-29 18:45 | Discharge Summary ---
Discharge Summary Date of Service Nov 29, 2017. Discharge Summary Admission Date: Nov 29, 2017 at 01:48 Discharge Date: Nov 29, 2017 Discharge Disposition: Home Principal Diagnosis: hypotension, hypomagnesemia, CKD, dehydration Medication Reconciliation New Medications: Magnesium Oxide (Magnesium-Oxide) 400 Mg Tab 400 MG PO BID for 5 Days, #10 TAB Continued Medications: Albuterol Sulfate (Proair Respiclick) 108 Mcg/Act Aer 2 PUFFS INH UD PRN for SOB/Wheezing Ascorbic Acid (Ascorbic Acid) 500 Mg Tab 500 MG PO QAM Aspirin (Aspirin Ec) 81 Mg Tab 81 MG PO QAM B Complex W/ C (Vitamin B Complex-C) 1 Cap Cap 1 CAP PO QAM Canagliflozin (Invokana) 100 Mg Tab 100 MG PO DAILY Carvedilol (Coreg) 6.25 Mg Tab 6.25 MG PO BID Cholecalciferol (Vitamin D3 Ultra Strength) 5,000 Unit Cap 5000 UNITS PO QAM Digoxin (Digoxin) 0.125 Mg Tab 0.125 MG PO DAILY Fluticasone Prop/Salmeterol (Advair Diskus 250/50 60 Dose) 1 Ea Aerp 1 PUFF INH BID Gabapentin (Neurontin) 300 Mg Cap 300 MG PO TID Glimepiride (Glimepiride) 4 Mg Tab 4 MG PO QAM Lovastatin (Mevacor) 20 Mg Tab 10 MG PO HS Magnesium Oxide (Mag-Ox) 400 Mg Tab 400 MG PO BID, TAB Melatonin (Kp Melatonin) 3 Mg Tab 3 MG PO HS Metformin Hcl (Glucophage) 1,000 Mg Tab 1000 MG PO BID, TAB Multivitamin (Multivitamin) Tab 1 TAB PO DAILY, TAB Niacin Ext Rel (Niaspan Ext Rel) 1,000 Mg Tabcr 1000 MG PO BID Tamsulosin Hcl (Flomax) 0.4 Mg Cap 0.4 MG PO HS Varenicline (Chantix) 1 Mg Tab 1 MG PO BID Discontinued Medications: Celecoxib (CeleBREX) 200 Mg Cap 200 MG PO BID Lisinopril/Hctz (Zestoretic 20MG/25MG) Tab 1 TAB PO QAM, TAB Omeprazole (Prilosec) 40 Mg Cap 40 MG PO QAM Admission Information HPI (per Admitting provider): CHIEF COMPLAINT: Dizziness, weakness, elevated heart rate, and low BP as per records. HISTORY OF PRESENT ILLNESS: History is obtained from the patient and records. Medical history is significant for hypertension, PAFib not on anticoagulation due to bleeding hx, PVD, DM2 on oral meds, NAFLD, COPD, past tobacco abuse, Nsjtufj-Ohsbq-Uxgkm as per records, Recent confinement 3 weeks ago for influenza pneumonia. Patient discharged to [facility] for rehabilitation. Patient discharged home from [facility] about 5 days ago. At home, the patient noted by daughter to have decreased fluid intake. Usual cough symptoms. No chest pain. No shortness of breath. Achy lower abdominal pain. Constipated for 2 days, transient emesis. Vague achy headache symptoms. Heart beat little fast, blood pressure a little low. Patient denies unusual anxiety or depression. Patient brought to the Emergency Room initially 80s. SBP initially 80s later 100s after IVF bolus. Given IV Vancomycin, Azactam for possible sepsis. MEDICAL HISTORY: As above. 2D echo 2013 EF 55-60% aortic valve sclerosis, LVH SURGERIES: He has had nasal reconstruction, toe surgery, neck surgery, tonsillectomy HOME MEDICATIONS: Include ascorbic acid, aspirin, ProAir, vitamin D, Invokana, Coreg, Celebrex, vitamin D3, digoxin, Advair Diskus, glimepiride, Neurontin, lisinopril, Mevacor, melatonin, Glucophage, mag ox, multivitamins, Niaspan, Prilosec, Flomax and Chantix. ALLERGIES: PENICILLIN. FAMILY HISTORY: Heart disease. PERSONAL AND SOCIAL HISTORY: Past tobacco abuse. No chronic intake of alcohol. Retired [employer] employee. REVIEW OF SYSTEMS: As per HPI, all 10 systems reviewed, all other ROS negative. Physical Exam (per Admitting): PHYSICAL EXAMINATION: VITAL SIGNS: Blood pressure was noted to be 89/54, later 100/60, ME 100, RR 18 T 36.7, and sats 95 on room air. GENERAL: Noted to be comfortable, obese and distress. SKIN: Normal color and warm. HEENT: alopecia. [place] palpebral conjunctivae, no ptosis, dry buccal mucosa NECK: Short neck, supple, nontender. LUNGS: Decreased breath sounds. No tenderness. HEART: RRRr. No murmur. ABDOMEN: Some distension. Hypogastric tenderness. EXTREMITIES: No edema. No tenderness, no gross deformities NEUROLOGIC: No gross deformities. Coherent. Slightly hard of hearing. Decreased lower extremity strength (chronic) Hospital Course Patient was treated for low blood pressure (hypotension) with IV fluids, Hypotension likely due to dehydration vs blood pressure medications. Patient had inpatient echocardiogram performed which was ordered by the admitting physician as part of hypotension workup - full results pending Patient also treated for hypomagnesemia, admission serum magnesium was originally 1, Patient received IV magnesium and started on oral magnesium supplements. Patient is asked to stop medications that has diuretics for blood pressure control. Patient also has Chronic Kidney Disease and is asked to stop Celebrex for musculoskeletal pain and to see a nephrology doctor for chronic kidney disease DISPOSITION Discharge home with changes made to blood pressure medications Follow up 12/02/2017 1:20 PM Mohan Perry MD Internal Medicine [facility] 12/09/2017 1:50 PM Vianey Pickard MD Nephrology [facility] Total time spent on discharge = 60 minutes This includes examination of the patient, discharge planning, medication reconciliation, and communication with other providers. Discharge Instructions see above
[2017-11-29] MEDS ORDERED: VARENICLINE (CHANTIX) 1 MG TAB PO SCH (20:00)
[2017-11-29] MEDS ORDERED: MAGNESIUM OXIDE 400 MG TAB PO SCH (20:00)
[2017-11-29] MEDS ORDERED: LOVASTATIN 20 MG TAB PO SCH (21:00)
[2017-11-29] MEDS ORDERED: TAMSULOSIN HCL 0.4 MG CAP PO SCH (21:00)
--- NOTE | 2017-12-01 06:54 | EDITING REQUIRED CODING QUERY ---
CHRONIC KIDNEY DISEASE To promote full compliance with coding requirements relating to patient care, physician participation is requested in all cases of clinical coder uncertainty. Please assist us with the question(s) below: Coding Question(s): The record reflects the following clinical findings: Please specify the known or suspected type by placing an "X" within the parenthesis (x). If other, please document type. Please document staging if known: ( ) Stage I >90 Kidney damage with normal or elevated GFR. (x ) Stage II 60-89 Kidney damage with mildly decreased kidney function ( ) Stage III 30-59 Moderately decreased kidney function ( ) Stage IV 15-29 Severely decreased kidney function ( ) Stage V <15 Renal failure (or dialysis) ( ) End Stage ( ) Unknown Thank you! Oriana Hall
--- NOTE | 2017-12-01 06:56 | EDITING REQUIRED CODING QUERY ---
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 Please assist us with the question(s) below: Coding Question: Acute Kidney Failure was documented in the ED note and H&P; please clarify below to the best of your knowledge. Thank you so much for your help! (X) TIO, present on admission () TIO, ruled-out () Other, explain Thank you! Oriana Hall Principal Diagnosis: "_that condition established after study, to be chiefly responsible for occasioning the admission of the patient to the hospital for care." Co-Existing Principal Diagnosis: "_when two or more diagnoses equally meet the criteria for principal diagnosis as determined by the circumstances of admission, diagnostic work up, and/or therapy provided, and the Alphabetic Index, Tabular List, or another coding guideline does not provide sequencing direction, any one of the diagnoses may be sequenced first." "When the physician has documented what appears to be a current diagnosis in the body of the record, but has not included the diagnosis in the final diagnostic statement, the physician should be asked whether the diagnosis should be added." (Source Coding Clinic 2 QTR90. p3-4)
== END 2017-11-29 17:43 | disposition home or self-care (01) | DRG 315 ==
LOC: C.EDB 20:49 → C.MS4W 11-29 01:48 → ENRESERV 11-29 02:11
PROVIDERS: ADMIT Hospitalist; ATTEND Hospitalist
DX: I95.9 Hypotension, unspecified (principal); N17.9 Acute kidney failure, unspecified; E86.0 Dehydration; R82.4 Acetonuria; N18.2 Chronic kidney disease, stage 2 (mild); I12.9 Hypertensive chronic kidney disease with stage 1 through stage 4 chronic kidney disease, or unspecified chronic kidney disease; E11.9 Type 2 diabetes mellitus without complications; J44.9 Chronic obstructive pulmonary disease, unspecified; M10.9 Gout, unspecified; K21.9 Gastro-esophageal reflux disease without esophagitis; I48.0 Paroxysmal atrial fibrillation; G60.0 Hereditary motor and sensory neuropathy; E83.42 Hypomagnesemia; Z79.82 Long term (current) use of aspirin; Z79.84 Long term (current) use of oral hypoglycemic drugs; Z79.899 Other long term (current) drug therapy; Z87.01 Personal history of pneumonia (recurrent); Z87.891 Personal history of nicotine dependence; Z88.0 Allergy status to penicillin; Z82.5 Family history of asthma and other chronic lower respiratory diseases

== ENCOUNTER 2017-12-28 20:47 | Emergency (ER) | payer OTHER ==
[~2017-12-28] VITALS: Ht 167.6 cm; Wt 115.8 kg
[~2017-12-28 20:47] MED LIST changes: -ASPI81TA21 PO; +ASPI81TA28 PO; +B COCAP3 PO; -B COTAB PO; -CARV6.25 PO; +CARV6.252 PO; -CHOL1TAB42 PO; +CHOL500015 PO; -CLB/200 PO; -FINA5TAB PO; -LISI-788 PO; +MAGN400T6 PO; +METF-384 PO; -METF1000 PO; +MGNO400 PO; +MULT-506 PO; -MULT-513 PO; -OMEP40CA41 PO
[2017-12-28 21:08] VITALS: TEMP 37.1; Ht 167.6 cm; Wt 115.8 kg
--- NOTE | 2017-12-28 21:17 | DIAGNOSTIC IMAGING REPORT ---
SINGLE VIEW CHEST CLINICAL HISTORY: Change in mental status. Weakness. FINDINGS: An AP, portable, upright chest radiograph is compared to study dated 11/28/2017 and correlated with abdominal CT dated 11/29/2017. The examination is significantly degraded by portable technique and patient rotation. The cardiomediastinal silhouette is unremarkable. Chronic interstitial thickening is similar to previous. No airspace consolidation or large pleural effusion is identified. Mild bibasilar atelectasis is noted. The pulmonary nodule the right lung base seen by CT is not apparent on x-ray. No pneumothorax is seen. The skeletal structures are osteopenic. The bony thorax is grossly intact. Arthritic change is seen in the shoulders. Fusion hardware is noted in the lower cervical spine. IMPRESSION: No acute cardiopulmonary abnormality. Electronically signed by: Eric Escalera M.D. 12/28/2017 9:16 PM Dictated Date/Time: 12/28/2017 9:14 PM
[2017-12-28 21:25] LABS: BASO % 0.6 %; BASO ABS # 0.06 K/uL (0-0.2); EOS % 0.1 %; EOS ABS # 0.01 K/uL (0-0.5); HEMATOCRIT 46.6 % (42-52); HEMOGLOBIN 15.9 g/dL (14.0-18.0); IG# 0.03 K/uL (0.00-0.02); LYMPH % 13.2 %; LYMPH ABS # 1.23 K/uL (1.2-3.4); MEAN CELL VOLUME 93.4 fL (80-100); MEAN CORPUSCULAR HEMOGLOBIN 31.9 pg (25-34); MEAN CORPUSCULAR HGB CONC 34.1 g/dl (32-36); MEAN PLATELET VOLUME 10.5 fL (7.4-10.4); MONO % 11.5 %; MONO ABS # 1.07 K/uL (0.11-0.59); NEUT % 74.3 %; NEUT ABS # 6.89 K/uL (1.4-6.5); PLATELET COUNT 180 K/uL (130-400); RED CELL DISTRIBUTION WIDTH CV 15.1 % (11.5-14.5); RED CELL DISTRIBUTION WIDTH SD 51.4 fL (36.4-46.3); WHITE BLOOD COUNT 9.29 K/uL (4.8-10.8)
[2017-12-28] MEDS ORDERED: OXYCODONE/ACETAMINOPHEN 10/325MG TAB PO STA (21:39)
[2017-12-28 21:46] LABS: ALBUMIN 3.2 gm/dl (3.4-5.0); ALT/SGPT 140 U/L (12-78); BLOOD UREA NITROGEN 20 mg/dl (7-18); CALCIUM 9.6 mg/dl (8.5-10.1); CARBON DIOXIDE 27 mmol/L (21-32); CREATININE 1.04 mg/dl (0.60-1.40); GLUCOSE 144 mg/dl (70-99); LIPASE 172 U/L (73-393); POTASSIUM 4.1 mmol/L (3.5-5.1); SODIUM 134 mmol/L (136-145)
[2017-12-28 21:49] LABS: INR 1.1 (0.9-1.1); PTT PATIENT 28.6 SECONDS (21.0-31.0)
[2017-12-28 21:54] LABS: ALKALINE PHOSPHATASE 275 U/L (45-117); AST/SGOT 100 U/L (15-37); TOTAL PROTEIN 7.7 gm/dl (6.4-8.2)
[2017-12-28] MEDS ORDERED: FINA5TAB4 PO (21:54)
[2017-12-28] MEDS ORDERED: LSX20 PO (21:56)
[2017-12-28] MEDS ORDERED: MAGN500C PO (22:00)
[2017-12-28] MEDS ORDERED: MELATAB2 PO (22:00)
[2017-12-28] MEDS ORDERED: METO25TA56 PO (22:02)
[2017-12-28] MEDS ORDERED: OXYC-164 PO (22:05)
[2017-12-28] MEDS ORDERED: VNTHFA/IN INH (22:06)
[2017-12-28] MEDS ORDERED: ASCOGRA PO (22:07)
[2017-12-28] MEDS ORDERED: RANI150T3 PO (22:09)
[2017-12-28] MEDS ORDERED: TAMS0.4C38 PO (22:17)
[2017-12-28] MEDS ORDERED: LOVA10TA2 PO (22:19)
--- NOTE | 2017-12-29 00:09 | EMERGENCY ROOM VISIT NOTE ---
History Report prepared by Isatu: Raul Menendez Under the Supervision of: Dr. Zhang Banks D.O. First contact with patient: 21:00 Stated Complaint: WEAKNESS, UNABLE TO STAND History of Present Illness The patient is a 72 year old male who presents to the Emergency Room with complaints of constant weakness that began prior to arrival. He rates his pain as 0/10. The patient states that he went to sit on a toilet and was too weak to get up. He normally gets arounds his home with his wheelchair or with assitance from his aid. He states that he vomited 4 hours ago. Per family, the PCP reviewed his BNP which was high; he is scheduled to see Dr. Reynaga for a follow up appointment. He was previously admitted to [facility] for the flu and pneumonia. He denies chest pain, SOB, and abdominal pain. 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 A total of 10 systems reviewed and were otherwise negative. 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) (5) COPD (chronic obstructive pulmonary disease) (6) Diabetes mellitus type 2 (7) Foot deformity (8) Foot drop (9) Gastroesophageal reflux disease (10) Gout (11) History of atrial fibrillation (12) History of diabetic ulcer of foot (13) Hyperlipidemia (14) Hypertensive heart disease (15) Hypotension (16) Influenza A (17) Knee pain (18) Loss of sensation (19) Pneumonia (20) Tobacco user Surgical Problems: (1) Hx of tonsillectomy (2) S/P cervical spinal fusion (3) Status post cholecystectomy Family History COPD (chronic obstructive pulmonary disease) MOTHER Mqpebls-Nuoui-Pigze disease DAUGHTER Coronary artery disease MOTHER Social History Smoking Status: Current Every Day Smoker Alcohol Use: none Drug Use: none Marital Status: single Housing Status: lives with family Occupation Status: retired Current/Historical Medications Scheduled Ascorbic Acid (Ascorbic Acid), 1 GM PO DAILY Aspirin (Aspirin Ec), 81 MG PO QAM B Complex W/ C (Vitamin B Complex-C), 1 CAP PO QAM Canagliflozin (Invokana), 100 MG PO DAILY Cholecalciferol (Vitamin D3 Ultra Strength), 5,000 UNITS PO QPM Digoxin (Digoxin), 0.125 MG PO DAILY Finasteride (Proscar), 5 MG PO QPM Fluticasone Prop/Salmeterol (Advair Diskus 250/50 60 Dose), 1 PUFF INH BID Furosemide (Furosemide), 10 MG PO QAM Gabapentin (Neurontin), 300 MG PO TID Glimepiride (Glimepiride), 4 MG PO QAM Lovastatin (Mevacor), 10 MG PO QPM Magnesium Oxide (Mg Supplement (Magnesium), 500 MG PO DAILY Melatonin (Melatonin Maximum Strengt), 5 MG PO HS Metformin Hcl (Glucophage), 1,000 MG PO BID Metoprolol Tartrate (Lopressor) (Lopressor), 12.5 MG PO BID Multivitamin (Multivitamin), 1 TAB PO DAILY Niacin Ext Rel (Niaspan Ext Rel), 1,000 MG PO BID Ranitidine Hcl (Zantac), 150-300 MG PO DAILY Tamsulosin Hcl (Flomax), 0.4 MG PO QPM Varenicline (Chantix), 1 MG PO BID Scheduled PRN Albuterol Hfa (Ventolin Hfa), 2 PUFFS INH Q6H PRN for SOB/Wheezing Oxycodone Hcl (Oxycodone Hcl), 10 MG PO Q6H PRN for Pain Allergies Coded Allergies: Penicillins (Verified Allergy, Intermediate, RASH, 12/28/17) Physical Exam Vital Signs Date Time Temp Pulse Resp B/P (MAP) Pulse Ox O2 Delivery O2 Flow Rate FiO2 12/28/17 21:47 93 24 99/75 93 Room Air 12/28/17 21:08 37.1 94 22 130/95 94 Room Air 12/28/17 21:06 97 Physical Exam CONSTITUTIONAL/VITAL SIGNS: Reviewed / noted above. GENERAL: Non-toxic in appearance. Generalized weakness. INTEGUMENTARY: Warm, dry, and [place]. HEAD: Normocephalic. EYES: without scleral icterus or trauma. ENT/OROPHARYNX: clear and moist. LYMPHADENOPATHY/NECK: Is supple without lymphadenopathy or meningismus. RESPIRATORY: Lungs clear and equal. CARDIOVASCULAR: Regular rate and rhythm. GI/ABDOMEN: Soft and nontender. No organomegaly or pulsatile mass. No rebound or guarding. Normal bowel sounds. EXTREMITIES: Warm and well perfused. BACK: No CVA tenderness. NEUROLOGICAL: Intact without focal deficits. PSYCHIATRIC: normal affect. MUSCULOSKELETAL: Normally developed with good muscle tone. Medical Decision & Procedures ER Provider Diagnostic Interpretation: Radiology results as stated below per my review and radiologist interpretation: SINGLE VIEW CHEST CLINICAL HISTORY: Change in mental status. Weakness. FINDINGS: An AP, portable, upright chest radiograph is compared to study dated 11/28/2017 and correlated with abdominal CT dated 11/29/2017. The examination is significantly degraded by portable technique and patient rotation. The cardiomediastinal silhouette is unremarkable. Chronic interstitial thickening is similar to previous. No airspace consolidation or large pleural effusion is identified. Mild bibasilar atelectasis is noted. The pulmonary nodule the right lung base seen by CT is not apparent on x-ray. No pneumothorax is seen. The skeletal structures are osteopenic. The bony thorax is grossly intact. Arthritic change is seen in the shoulders. Fusion hardware is noted in the lower cervical spine. IMPRESSION: No acute cardiopulmonary abnormality. Electronically signed by: Eric Escalera M.D. 12/28/2017 9:16 PM Dictated Date/Time: 12/28/2017 9:14 PM Laboratory Results 12/28/17 21:03 Red Blood Count 4.99, Mean Corpuscular Volume 93.4, Mean Corpuscular Hemoglobin 31.9, Mean Corpuscular Hemoglobin Concent 34.1, Mean Platelet Volume 10.5, Neutrophils (%) (Auto) 74.3, Lymphocytes (%) (Auto) 13.2, Monocytes (%) (Auto) 11.5, Eosinophils (%) (Auto) 0.1, Basophils (%) (Auto) 0.6, Neutrophils # (Auto ) 6.89, Lymphocytes # (Auto) 1.23, Monocytes # (Auto) 1.07, Eosinophils # (Auto ) 0.01, Basophils # (Auto) 0.06 12/28/17 21:03 Test 12/28/17 21:03 12/28/17 22:09 White Blood Count 9.29 K/uL (4.8-10.8) Red Blood Count 4.99 M/uL (4.7-6.1) Hemoglobin 15.9 g/dL (14.0-18.0) Hematocrit 46.6 % (42-52) Mean Corpuscular Volume 93.4 fL (80-100) Mean Corpuscular Hemoglobin 31.9 pg (25-34) Mean Corpuscular Hemoglobin Concent 34.1 g/dl (32-36) Platelet Count 180 K/uL (130-400) Mean Platelet Volume 10.5 fL (7.4-10.4) Neutrophils (%) (Auto) 74.3 % Lymphocytes (%) (Auto) 13.2 % Monocytes (%) (Auto) 11.5 % Eosinophils (%) (Auto) 0.1 % Basophils (%) (Auto) 0.6 % Neutrophils # (Auto) 6.89 K/uL (1.4-6.5) Lymphocytes # (Auto) 1.23 K/uL (1.2-3.4) Monocytes # (Auto) 1.07 K/uL (0.11-0.59) Eosinophils # (Auto) 0.01 K/uL (0-0.5) Basophils # (Auto) 0.06 K/uL (0-0.2) RDW Standard Deviation 51.4 fL (36.4-46.3) RDW Coefficient of Variation 15.1 % (11.5-14.5) Immature Granulocyte % (Auto) 0.3 % Immature Granulocyte # (Auto) 0.03 K/uL (0.00-0.02) Prothrombin Time 11.4 SECONDS (9.0-12.0) Prothromb Time International Ratio 1.1 (0.9-1.1) Activated Partial Thromboplast Time 28.6 SECONDS (21.0-31.0) Partial Thromboplastin Ratio 1.1 Anion Gap 10.0 mmol/L (3-11) Est Creatinine Clear Calc Drug Dose 79.1 ml/min Estimated GFR () 83.9 Estimated GFR (Non- 72.4 BUN/Creatinine Ratio 18.8 (10-20) Calcium Level 9.6 mg/dl (8.5-10.1) Magnesium Level 1.7 mg/dl (1.8-2.4) Total Bilirubin 0.7 mg/dl (0.2-1) Direct Bilirubin 0.3 mg/dl (0-0.2) Aspartate Amino Transf (AST/SGOT) 100 U/L (15-37) Alanine Aminotransferase (ALT/SGPT) 140 U/L (12-78) Alkaline Phosphatase 275 U/L (45-117) Total Creatine Kinase 173 U/L (39-308) Creatine Kinase MB 2.0 ng/ml (0.5-3.6) Creatine Kinase MB Ratio 1.2 (0-3.0) Troponin I < 0.015 ng/ml (0-0.045) Total Protein 7.7 gm/dl (6.4-8.2) Albumin 3.2 gm/dl (3.4-5.0) Lipase 172 U/L (73-393) Thyroid Stimulating Hormone (TSH) 1.170 uIu/ml (0.300-4.500) Urine Color DK YELLOW Urine Appearance CLEAR (CLEAR) Urine pH 5.0 (4.5-7.5) Urine Specific [place] 1.036 (1.000-1.030) Urine Protein 2+ (NEG) Urine Glucose (UA) 3+ (NEG) Urine Ketones 1+ (NEG) Urine Occult Blood NEG (NEG) Urine Nitrite NEG (NEG) Urine Bilirubin NEG (NEG) Urine Urobilinogen NEG (NEG) Urine Leukocyte Esterase NEG (NEG) Urine WBC (Auto) 1-5 /hpf (0-5) Urine RBC (Auto) 0-4 /hpf (0-4) Urine Hyaline Casts (Auto) 0 /lpf (0-5) Urine Epithelial Cells (Auto) 5-10 /lpf (0-5) Urine Bacteria (Auto) NEG (NEG) Laboratory results as stated above per my review. Medications Administered Medications (Trade) Dose Ordered Sig/Katherine Route Start Time Stop Time Status Last Admin Dose Admin Oxycodone/ Acetaminophen (Percocet 10-325MG Tab) 1 tab NOW STAT PO 12/28/17 21:39 12/28/17 21:40 DC 12/28/17 21:46 1 TAB ECG Per My Interpretation Indication: weakness Rate (beats per minute): 94 Rhythm: normal sinus Findings: no ectopy, other (No ST elevation) ED Course 2100: Previous medical records were reviewed. The patient was evaluated in room A2. A complete history and physical examination was performed. 2138: Percocet, 10-325 mg, 1 tab, PO. 2330: I checked on the patient and he is resting comfortably. We are going to do an ambulatory trial and see if he can ambulate with a walker. 2355: On reevaluation, the patient is resting. I discussed the results and findings with the patient. He and his family verbalized agreement of the treatment plan. He was discharged home. Medical Decision Differential includes acute coronary syndrome, myocardial infarction, CVA, TIA, anemia, infection, pneumonia, UTI, pyelonephritis, poor nutrition, dehydration, electrolyte disturbance,hypoglycemia. This is a 72-year-old male who presents to the ED with a chief complaint of generalized weakness. The patient states that he normally gets around in a wheelchair and/or walker. He states that he has been relying on the electric wheelchair more recently. Today after sitting down on the toilet to urinate, he was unable to get up. He came in for this reason. The patient denies any chest pains, shortness of breath, fevers. He does report one episode of vomiting earlier today. He has no other specific complaints. His physical exam reveals no focal deficits but he does have some generalized weakness. His vital signs are normal. A 12-lead EKG shows a normal sinus rhythm at a rate of 94. Chest x-ray did not show acute process. The patient was reassessed. He states that he is feeling better. An ambulatory trial was performed and he was able to ambulate with a walker as per his baseline. He was felt to be stable for discharge. The patient desires to go home. Medication Reconcilliation Current Medication List: was personally reviewed by me Blood Pressure Screening Patient's blood pressure: Normal blood pressure Blood pressure disposition: Did not require urgent referral Impression Primary Impression: Weakness Scribe Attestation The scribe's documentation has been prepared under my direction and personally reviewed by me in its entirety. I confirm that the note above accurately reflects all work, treatment, procedures, and medical decision making performed by me. Departure Information Dispostion Home / Self-Care Referrals Mohan Perry M.D. (PCP) Additional Instructions Follow-up with your doctor for further care and evaluation in 1-2 days. Return to the emergency department for worsening or new symptoms or any concerns. You have been examined and treated today on an emergency basis only. This is not a substitute for, or an effort to provide, complete comprehensive medical care. It is impossible to recognize and treat all injuries or illnesses in a single emergency department visit. It is therefore important that you follow up closely with your doctor. Call as soon as possible for an appointment.
[2017-12-29 00:33] VITALS: BP 105/67; PULSE 82; O2SAT 95
[2017-12-30] MEDS ORDERED: OMEP40CA41 PO (15:51)
[2017-12-30] MEDS ORDERED: CALC500T72 PO (15:51)
[2018-01-02] MEDS ORDERED: SENN8.6T7 PO (16:35)
[2018-01-02] MEDS ORDERED: LDDP5 TD (16:35)
[2018-01-02] MEDS ORDERED: DRGTP12 TD (16:35)
[2018-01-02] MEDS ORDERED: LRS10 PO (16:35)
== END 2017-12-29 00:26 | disposition home or self-care (01) ==
LOC: EDBD 20:47 → C.EDA 20:48
DX: R53.1 Weakness (principal); N17.9 Acute kidney failure, unspecified; I10 Essential (primary) hypertension; J44.9 Chronic obstructive pulmonary disease, unspecified; E11.9 Type 2 diabetes mellitus without complications; K21.9 Gastro-esophageal reflux disease without esophagitis; M10.9 Gout, unspecified; E78.5 Hyperlipidemia, unspecified; F17.200 Nicotine dependence, unspecified, uncomplicated; Z79.82 Long term (current) use of aspirin; Z88.0 Allergy status to penicillin

== ENCOUNTER 2017-12-30 11:10 | Observation (INO) | payer OTHER ==
[~2017-12-30] VITALS: Ht 167.6 cm; Wt 100.1 kg
[~2017-12-30 11:10] MED LIST changes: -ALBU18002 INH; -ASCO500T16 PO; +ASCOGRA PO; -CARV6.252 PO; +FINA5TAB4 PO; +LOVA10TA2 PO; -LOVA20TA4 PO; +LSX20 PO; -MAGN400T6 PO; +MAGN500C PO; -MELA1TAB5 PO; +MELATAB2 PO; +METO25TA56 PO; -MGNO400 PO; +OXYC-164 PO; +RANI150T3 PO; +VNTHFA/IN INH
[2017-12-30 11:51] LABS: BASO % 0.5 %; BASO ABS # 0.03 K/uL (0-0.2); EOS % 0.2 %; EOS ABS # 0.01 K/uL (0-0.5); HEMATOCRIT 43.6 % (42-52); HEMOGLOBIN 14.7 g/dL (14.0-18.0); IG# 0.03 K/uL (0.00-0.02); LYMPH % 15.1 %; LYMPH ABS # 0.88 K/uL (1.2-3.4); MEAN CELL VOLUME 92.2 fL (80-100); MEAN CORPUSCULAR HEMOGLOBIN 31.1 pg (25-34); MEAN CORPUSCULAR HGB CONC 33.7 g/dl (32-36); MEAN PLATELET VOLUME 10.2 fL (7.4-10.4); MONO % 12.9 %; MONO ABS # 0.75 K/uL (0.11-0.59); NEUT % 70.8 %; NEUT ABS # 4.13 K/uL (1.4-6.5); PLATELET COUNT 138 K/uL (130-400); RED CELL DISTRIBUTION WIDTH CV 15.4 % (11.5-14.5); RED CELL DISTRIBUTION WIDTH SD 52.9 fL (36.4-46.3); WHITE BLOOD COUNT 5.83 K/uL (4.8-10.8)
[2017-12-30 12:00] LABS: PTT PATIENT 28.6 SECONDS (21.0-31.0)
[2017-12-30 12:03] LABS: ALBUMIN 2.8 gm/dl (3.4-5.0); CALCIUM 8.9 mg/dl (8.5-10.1)
[2017-12-30 12:14] LABS: TOTAL PROTEIN 7.3 gm/dl (6.4-8.2)
[2017-12-30] MEDS ORDERED: HYDROmorphone INJ 0.5 MG/0.5 ML SYR IV STA ×2 (12:30→14:22)
--- NOTE | 2017-12-30 13:50 | DIAGNOSTIC IMAGING REPORT ---
LEFT HIP 2 VIEWS HISTORY: bilat hip pain, no trauma COMPARISON: None. FINDINGS: There is no fracture or dislocation. Soft tissues are unremarkable. The visualized pelvic bones are intact. Cartilage spaces are maintained for age. Small marginal osteophytes at the left hip. IMPRESSION: Minor arthritic change within the left hip. No fracture or dislocation. Electronically signed by: Mina Buchanan M.D. 12/30/2017 1:49 PM Dictated Date/Time: 12/30/2017 1:48 PM
--- NOTE | 2017-12-30 13:50 | DIAGNOSTIC IMAGING REPORT ---
RIGHT HIP 2 VIEWS CLINICAL HISTORY: Right hip pain. FINDINGS: AP and frog-leg views of the right hip are correlated with pelvic CT dated 11/29/2017. The skeletal structures are osteopenic. No fracture is identified in the right hip. The visualized right hemipelvis appears maintained. Mild arthritic change and joint space narrowing is noted in the right hip. Sclerotic change is noted in the right sacroiliac joint. The overlying soft tissues are within normal limits. IMPRESSION: Osteopenia and mild arthritic change as above. No acute bony abnormality is seen in the right hip. Electronically signed by: Eric Escalera M.D. 12/30/2017 1:49 PM Dictated Date/Time: 12/30/2017 1:47 PM
--- NOTE | 2017-12-30 13:50 | DIAGNOSTIC IMAGING REPORT ---
CHEST ONE VIEW PORTABLE CLINICAL HISTORY: 72 years-old Male presenting with fever, recent pneumonia. TECHNIQUE: Portable upright AP view of the chest was obtained. COMPARISON: 12/28/2017. FINDINGS: Cardiomediastinal silhouette normal. Mildly low lung volumes with hypoventilatory changes. No focal opacity. No large effusion or pneumothorax. Chronic superior subluxation of the humeral heads suggesting bilateral chronic rotator cuff tears. Partially visualized cervical fusion hardware. Upper abdomen normal. IMPRESSION: 1. Mildly low lung volumes with hypoventilatory changes. No focal infiltrate to suggest pneumonia. Electronically signed by: Tulio Kruse M.D. 12/30/2017 1:49 PM Dictated Date/Time: 12/30/2017 1:47 PM
--- NOTE | 2017-12-30 13:57 | DIAGNOSTIC IMAGING REPORT ---
L-SPINE MIN 4 VIEWS ROUTINE CLINICAL HISTORY: Bilateral hip pain. No trauma. COMPARISON: Lumbar spine MRI April 20, 2013. FINDINGS: There is mild levoscoliosis of the lumbar spine. Vertebral body heights are maintained. There is no fracture or suspicious lesion. There is mild retrolisthesis of L5 on S1 which is likely due to severe facet arthrosis. There is severe multilevel disc space narrowing ossified ptosis and vacuum disc phenomenon. There is severe facet arthrosis. IMPRESSION: 1. No acute lumbar spine fracture or subluxation. 2. Severe multilevel degenerative disc disease and facet arthrosis. 3. Mild levoscoliosis of the lumbar spine and grade I anterolisthesis of L5 on S1 likely due to severe facet arthrosis. Electronically signed by: Darwin Bedolla M.D. 12/30/2017 1:55 PM Dictated Date/Time: 12/30/2017 1:48 PM
[2017-12-30] MEDS ORDERED: LORAZEPAM 1 MG TAB SL STA (15:26)
[2017-12-30] MEDS ORDERED: ACETAMINOPHEN 325 MG TAB PO PRN (15:45)
[2017-12-30] MEDS ORDERED: MAGNESIUM HYDROXIDE SUSP 30 ML UDC PO PRN (15:45)
[2017-12-30] MEDS ORDERED: ONDANSETRON INJ 2 MG/ML 2 ML VIAL IV PRN (15:45)
--- NOTE | 2017-12-30 15:48 | EMERGENCY ROOM VISIT NOTE ---
History Report prepared by Isatu: Ashley Otoole Under the Supervision of: Dr. Jaret Son M.D. First contact with patient: 11:24 Chief Complaint: HIP PAIN Stated Complaint: WEAK, FEVER 101, EXTREME HIP PAIN History of Present Illness The patient is a 72 year old male who presents to the Emergency Room with complaints of persistent hip pain starting 2 days ago. The pain is mostly in his right hip. The pain worsens with movement. He rates his discomfort as an 8-9 /10 at worst. He tried taking 20 mg of oxycodone at 0800 to no significant relief. He also took 650 mg of aspirin today at 1000. The patient has a history of chronic pain in his shoulders, knees, and lower back. He vomited 2 days ago. He has had a wound on his left leg. He was seen in the ED 2 days ago with weakness in the legs. He developed fever and hip pain after getting home. He denies any history of hip surgery. Pt denies LOC, headache, chills, diaphoresis , visual changes, neck pain, chest pain, breathing difficulties, nausea, abdominal pain, melena, hematochezia, urinary symptoms, numbness, lymphadenopathy, rash, or other complaints. Source of History: patient, family Onset: 2 days ago Position: other (right hip) Symptom Intensity: 8-9/10 Quality: other (pain) Timing: other (persistent) Modifying Factors (Worsening): movement Associated Symptoms: + fevers, + vomiting, + weakness Review of Systems See HPI for pertinent positives and negatives. A total of ten systems were reviewed and were otherwise negative. 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) (6) COPD (chronic obstructive pulmonary disease) (7) Diabetes mellitus type 2 (8) Foot deformity (9) Foot drop (10) Gastroesophageal reflux disease (11) Gout (12) Hip pain (13) History of atrial fibrillation (14) History of diabetic ulcer of foot (15) Hyperlipidemia (16) Hypertensive heart disease (17) Hypotension (18) Influenza A (19) Knee pain (20) Loss of sensation (21) Pneumonia (22) Tobacco user Surgical Problems: (1) Hx of tonsillectomy (2) S/P cervical spinal fusion (3) Status post cholecystectomy Family History COPD (chronic obstructive pulmonary disease) MOTHER Qbknjte-Bmwef-Wajgh disease DAUGHTER Coronary artery disease MOTHER Social History Smoking Status: Former Smoker Alcohol Use: none Drug Use: none Marital Status: single Housing Status: lives with family Occupation Status: retired Current/Historical Medications Scheduled Ascorbic Acid (Ascorbic Acid), 1 GM PO DAILY Aspirin (Aspirin Ec), 81 MG PO QAM B Complex W/ C (Vitamin B Complex-C), 1 CAP PO QAM Canagliflozin (Invokana), 100 MG PO DAILY Cholecalciferol (Vitamin D3 Ultra Strength), 5,000 UNITS PO QPM Digoxin (Digoxin), 0.125 MG PO DAILY Finasteride (Proscar), 5 MG PO QPM Fluticasone Prop/Salmeterol (Advair Diskus 250/50 60 Dose), 1 PUFF INH BID Furosemide (Furosemide), 10 MG PO QAM Gabapentin (Neurontin), 300 MG PO TID Glimepiride (Glimepiride), 4 MG PO QAM Lovastatin (Mevacor), 10 MG PO QPM Magnesium Oxide (Mg Supplement (Magnesium), 500 MG PO DAILY Melatonin (Melatonin Maximum Strengt), 5 MG PO HS Metformin Hcl (Glucophage), 1,000 MG PO BID Metoprolol Tartrate (Lopressor) (Lopressor), 12.5 MG PO BID Multivitamin (Multivitamin), 1 TAB PO DAILY Niacin Ext Rel (Niaspan Ext Rel), 1,000 MG PO BID Ranitidine Hcl (Zantac), 150-300 MG PO DAILY Tamsulosin Hcl (Flomax), 0.4 MG PO QPM Varenicline (Chantix), 1 MG PO BID Scheduled PRN Albuterol Hfa (Ventolin Hfa), 2 PUFFS INH Q6H PRN for SOB/Wheezing Oxycodone Hcl (Oxycodone Hcl), 10 MG PO Q6H PRN for Pain Allergies Coded Allergies: Penicillins (Verified Allergy, Intermediate, RASH, 12/30/17) Physical Exam Vital Signs Date Time Temp Pulse Resp B/P (MAP) Pulse Ox O2 Delivery O2 Flow Rate FiO2 12/30/17 15:33 64 18 126/88 94 12/30/17 14:45 69 14 96 12/30/17 14:31 129/72 12/30/17 14:15 66 16 95 12/30/17 14:01 113/55 12/30/17 13:15 74 18 12/30/17 13:10 69 24 94 12/30/17 13:01 98/56 12/30/17 12:56 96/60 12/30/17 12:40 71 20 92 12/30/17 12:36 37.0 12/30/17 12:10 73 20 94 12/30/17 11:44 78 12/30/17 11:42 109/63 12/30/17 11:40 78 16 95 12/30/17 11:30 94 Room Air 12/30/17 11:17 36.9 80 18 112/68 94 Room Air Physical Exam GENERAL: Awake, alert, uncomfortable-appearing, in no distress HENT: Normocephalic, atraumatic. Oropharynx unremarkable. EYES: Normal conjunctiva. Sclera non-icteric. NECK: Supple. No nuchal rigidity. FROM. No masses. RESPIRATORY: Clear to auscultation. No wheezes. No rales. Normal respiratory effort. CARDIAC: Normal rate. Normal rhythm. No murmurs. No rubs. Extremities warm and well perfused. Pulses equal. No JVD. GI: Soft, non-distended. No tenderness to palpation. No rebound or guarding. No masses. RECTAL: Deferred. MUSCULOSKELETAL: Atraumatic. Chest examination reveals no tenderness. The back is symmetrical on inspection without obvious abnormality. There is no CVA tenderness to palpation. No joint edema. LOWER EXTREMITIES: Calves are equal size bilaterally and non-tender. 1+ edema. No discoloration. Tenderness to palpation of the sciatic notch bilaterally, moderate right hip tenderness, ROM relatively well preserved although pain elicited on the right. NEURO: Normal sensorium. No sensory or motor deficits noted. SKIN: No rash or jaundice noted. Medical Decision & Procedures ER Provider Diagnostic Interpretation: Radiology results as stated below per my review and radiologist interpretation: CHEST ONE VIEW PORTABLE CLINICAL HISTORY: 72 years-old Male presenting with fever, recent pneumonia. TECHNIQUE: Portable upright AP view of the chest was obtained. COMPARISON: 12/28/2017. FINDINGS: Cardiomediastinal silhouette normal. Mildly low lung volumes with hypoventilatory changes. No focal opacity. No large effusion or pneumothorax. Chronic superior subluxation of the humeral heads suggesting bilateral chronic rotator cuff tears. Partially visualized cervical fusion hardware. Upper abdomen normal. IMPRESSION: 1. Mildly low lung volumes with hypoventilatory changes. No focal infiltrate to suggest pneumonia. Electronically signed by: Tulio Kruse M.D. 12/30/2017 1:49 PM Dictated Date/Time: 12/30/2017 1:47 PM LEFT HIP 2 VIEWS HISTORY: bilat hip pain, no trauma COMPARISON: None. FINDINGS: There is no fracture or dislocation. Soft tissues are unremarkable. The visualized pelvic bones are intact. Cartilage spaces are maintained for age. Small marginal osteophytes at the left hip. IMPRESSION: Minor arthritic change within the left hip. No fracture or dislocation. Electronically signed by: Mina Buchanan M.D. 12/30/2017 1:49 PM Dictated Date/Time: 12/30/2017 1:48 PM RIGHT HIP 2 VIEWS CLINICAL HISTORY: Right hip pain. FINDINGS: AP and frog-leg views of the right hip are correlated with pelvic CT dated 11/29/2017. The skeletal structures are osteopenic. No fracture is identified in the right hip. The visualized right hemipelvis appears maintained. Mild arthritic change and joint space narrowing is noted in the right hip. Sclerotic change is noted in the right sacroiliac joint. The overlying soft tissues are within normal limits. IMPRESSION: Osteopenia and mild arthritic change as above. No acute bony abnormality is seen in the right hip. Electronically signed by: Eric Escalera M.D. 12/30/2017 1:49 PM Dictated Date/Time: 12/30/2017 1:47 PM L-SPINE MIN 4 VIEWS ROUTINE CLINICAL HISTORY: Bilateral hip pain. No trauma. COMPARISON: Lumbar spine MRI April 20, 2013. FINDINGS: There is mild levoscoliosis of the lumbar spine. Vertebral body heights are maintained. There is no fracture or suspicious lesion. There is mild retrolisthesis of L5 on S1 which is likely due to severe facet arthrosis. There is severe multilevel disc space narrowing ossified ptosis and vacuum disc phenomenon. There is severe facet arthrosis. IMPRESSION: 1. No acute lumbar spine fracture or subluxation. 2. Severe multilevel degenerative disc disease and facet arthrosis. 3. Mild levoscoliosis of the lumbar spine and grade I anterolisthesis of L5 on S1 likely due to severe facet arthrosis. Electronically signed by: Darwin Bedolla M.D. 12/30/2017 1:55 PM Dictated Date/Time: 12/30/2017 1:48 PM Laboratory Results 12/30/17 11:35 Red Blood Count 4.73, Mean Corpuscular Volume 92.2, Mean Corpuscular Hemoglobin 31.1, Mean Corpuscular Hemoglobin Concent 33.7, Mean Platelet Volume 10.2, Neutrophils (%) (Auto) 70.8, Lymphocytes (%) (Auto) 15.1, Monocytes (%) (Auto) 12.9, Eosinophils (%) (Auto) 0.2, Basophils (%) (Auto) 0.5, Neutrophils # (Auto ) 4.13, Lymphocytes # (Auto) 0.88, Monocytes # (Auto) 0.75, Eosinophils # (Auto ) 0.01, Basophils # (Auto) 0.03 12/30/17 11:35 Test 12/30/17 11:30 12/30/17 11:35 12/30/17 15:36 Urine Color YELLOW Urine Appearance CLEAR (CLEAR) Urine pH 5.0 (4.5-7.5) Urine Specific [place] 1.027 (1.000-1.030) Urine Protein NEG (NEG) Urine Glucose (UA) 3+ (NEG) Urine Ketones TRACE (NEG) Urine Occult Blood NEG (NEG) Urine Nitrite NEG (NEG) Urine Bilirubin NEG (NEG) Urine Urobilinogen NEG (NEG) Urine Leukocyte Esterase NEG (NEG) White Blood Count 5.83 K/uL (4.8-10.8) Red Blood Count 4.73 M/uL (4.7-6.1) Hemoglobin 14.7 g/dL (14.0-18.0) Hematocrit 43.6 % (42-52) Mean Corpuscular Volume 92.2 fL (80-100) Mean Corpuscular Hemoglobin 31.1 pg (25-34) Mean Corpuscular Hemoglobin Concent 33.7 g/dl (32-36) Platelet Count 138 K/uL (130-400) Mean Platelet Volume 10.2 fL (7.4-10.4) Neutrophils (%) (Auto) 70.8 % Lymphocytes (%) (Auto) 15.1 % Monocytes (%) (Auto) 12.9 % Eosinophils (%) (Auto) 0.2 % Basophils (%) (Auto) 0.5 % Neutrophils # (Auto) 4.13 K/uL (1.4-6.5) Lymphocytes # (Auto) 0.88 K/uL (1.2-3.4) Monocytes # (Auto) 0.75 K/uL (0.11-0.59) Eosinophils # (Auto) 0.01 K/uL (0-0.5) Basophils # (Auto) 0.03 K/uL (0-0.2) RDW Standard Deviation 52.9 fL (36.4-46.3) RDW Coefficient of Variation 15.4 % (11.5-14.5) Immature Granulocyte % (Auto) 0.5 % Immature Granulocyte # (Auto) 0.03 K/uL (0.00-0.02) Erythrocyte Sedimentation Rate 60 mm/hr (0-14) Prothrombin Time 11.0 SECONDS (9.0-12.0) Prothromb Time International Ratio 1.0 (0.9-1.1) Activated Partial Thromboplast Time 28.6 SECONDS (21.0-31.0) Partial Thromboplastin Ratio 1.1 Anion Gap 9.0 mmol/L (3-11) Est Creatinine Clear Calc Drug Dose 76.9 ml/min Estimated GFR () 88.0 Estimated GFR (Non- 75.9 BUN/Creatinine Ratio 21.3 (10-20) Calcium Level 8.9 mg/dl (8.5-10.1) Magnesium Level 1.8 mg/dl (1.8-2.4) Total Bilirubin 0.7 mg/dl (0.2-1) Direct Bilirubin 0.3 mg/dl (0-0.2) Aspartate Amino Transf (AST/SGOT) 106 U/L (15-37) Alanine Aminotransferase (ALT/SGPT) 112 U/L (12-78) Alkaline Phosphatase 257 U/L (45-117) Troponin I 0.015 ng/ml (0-0.045) C-Reactive Protein 6.46 mg/dl (0-0.29) Total Protein 7.3 gm/dl (6.4-8.2) Albumin 2.8 gm/dl (3.4-5.0) Lipase 135 U/L (73-393) Thyroid Stimulating Hormone (TSH) 1.690 uIu/ml (0.300-4.500) Laboratory results reviewed by me Medications Administered Medications (Trade) Dose Ordered Sig/Katherine Route Start Time Stop Time Status Last Admin Dose Admin Hydromorphone HCl (Dilaudid Inj) 0.5 mg NOW STAT IV 12/30/17 12:30 12/30/17 12:33 DC 12/30/17 12:50 0.5 MG Hydromorphone HCl (Dilaudid Inj) 0.5 mg NOW STAT IV 12/30/17 14:22 12/30/17 14:25 DC 12/30/17 14:22 0.5 MG Lorazepam (Ativan Tab) 1 mg NOW STAT SL 12/30/17 15:26 12/30/17 15:27 DC 12/30/17 15:33 1 MG ECG Per My Interpretation Indication: weakness Rate (beats per minute): 73 Rhythm: normal sinus Findings: Q waves (anteroseptal), no acute ischemic change, no ectopy, other ( normal intervals) ED Course 1219: The patient was evaluated in room A11B. A complete history and physical exam was performed. 1230: Dilaudid Inj 0.5 mg IV. 1415: Upon reexamination, the patient was resting comfortably. I discussed the test results and treatment plan with him. The patient will be evaluated for further management. 1422: Dilaudid Inj 0.5 mg IV. 1429: I discussed the patient's case with Ewa Patton PA-C [facility] Hospitalist. The patient will be evaluated for further treatment and disposition. Medical Decision Triage Nursing notes reviewed. The patient's presentation and history were concerning for fever, recent pneumonia, hip pain and weakness. Etiologies such as soft tissue injury, fracture, dislocation, neurovascular compromise, pneumonia, septic joint, sciatica, as well as others were entertained. The patient was evaluated. He was given IV Dilaudid for comfort. He had tenderness in the sciatic notch. Record review indicated that he has had significant degenerative disc disease in the lumbar spine. He had elevated inflammatory markers but a normal white blood cell count. Given his recent infection this raises concerns about infectious etiology for the hip pain. He had arthritic changes in the spine and hips on normal imaging. The daughter stated he was having a tough time getting around today at home. He did take 2 doses of oxycodone at home which did not help. MRI imaging was ordered. He was given Ativan prior to imaging. Consultation was made with internal medicine. Patient was evaluated in the ER for further management. MRI results are pending. Medication Reconcilliation Current Medication List: was personally reviewed by me Blood Pressure Screening Patient's blood pressure: Normal blood pressure Blood pressure disposition: Did not require urgent referral Consults Time Called: [id number] Consulting Physician: JUDE Wong hospitalist Returned Call: [phone] Discussed the patient's case. The patient will be evaluated for further treatment and disposition. Impression Primary Impression: Hip pain Additional Impressions: Fever Ambulatory dysfunction Degenerative disc disease, lumbar Scribe Attestation The scribe's documentation has been prepared under my direction and personally reviewed by me in its entirety. I confirm that the note above accurately reflects all work, treatment, procedures, and medical decision making performed by me. Departure Information Dispostion Being Evaluated By Hospitalist Referrals Mohan Perry M.D. (PCP) Patient Instructions My [facility] Problem Qualifiers
[2017-12-30] MEDS ORDERED: CALC500T72 PO (15:51)
[2017-12-30] MEDS ORDERED: OMEP40CA41 PO (15:51)
[2017-12-30] MEDS ORDERED: ALBUTEROL HFA 8 GM INHALER INH PRN (16:00)
[2017-12-30] MEDS ORDERED: OXYCODONE HCL IR 5 MG TAB (IMMEDIATE RELEASE) PO PRN (16:00)
[2017-12-30] MEDS ORDERED: GLUCOSE 40% GEL 15 GM TUBE PO PRN (16:15)
[2017-12-30] MEDS ORDERED: GLUCOSE 10 TABS/TUBE PO PRN (16:15)
[2017-12-30] MEDS ORDERED: GLUCAGON FOR INJ 1 MG VIAL SQ PRN (16:15)
[2017-12-30] MEDS ORDERED: DEXTROSE 50% 50 ML SYR IV PRN (16:15)
[2017-12-30] MEDS ORDERED: IV FLUIDS COMPLETED PRN (16:30)
--- NOTE | 2017-12-30 16:57 | DIAGNOSTIC IMAGING REPORT ---
MRI THE RIGHT HIP NO CONTRAST CLINICAL HISTORY: Back and right hip pain. Fever. COMPARISON STUDY: Conventional radiographic study dated 12/30/2017 FINDINGS: Imaging was performed in the axial coronal and oblique sagittal views. There is no pathologic adenopathy. There are no areas of marrow edema to indicate occult fracture. There is no evidence of avascular necrosis. There is edema within the quadratus femoris muscle. The findings are indicative of a myotendinous injury.. IMPRESSION: 1. No evidence of occult fracture 2. No evidence of avascular necrosis 3. Edema within the right quadratus femoris muscle, indicative of a myotendinous injury Electronically signed by: Justin Israel M.D. 12/30/2017 4:56 PM Dictated Date/Time: 12/30/2017 4:47 PM
[2017-12-30] MEDS: DIGOXIN 0.125 MG TAB PO SCH (17:00)
--- NOTE | 2017-12-30 17:02 | History and Physical ---
History & Physical Date & Time of Service: Dec 30, 2017 at 16:17 Chief Complaint: Weak, Fever 101, Extreme Hip Pain Primary Care Physician: Mohan Perry M.D. History of Present Illness Source: patient, clinic records, hospital records Pt is 72 y/o M with PMH Cqiafib-Ohsfu-Gwxwg, DM II, WAGNER, CKD II, COPD, paroxysmal atrial fibrillation, hyperlipidemia, GERD, presented to ER with complaint of hip pain. Patient states some chronic low back pain however past couple of days been having bilateral hip pain. Right hip greater than left. Patient complains of pain in right buttock right lateral hip pain radiates right posterior leg to knee. He has been taking his oxycodone without relief. This morning took 20 mg without relief. Was on Celebrex in the past however that was discontinued secondary to CKD. History neuropathy denies any increased paresthesias. Chronic joint pain from Jgyvjnq-Frhdw-Xybzk and difficulty ambulating. Patient uses electric wheelchair and uses cane. Patient states 2 days ago had extreme lower extremity weakness and was on unable to get off the toilet. Patient and daughter concerned with patient's increased trouble with ambulation and completing daily tasks. Patient has home caregiver and home 8 hours a day to assist with ADLs. Patient denies any falls or head injury. Patient states 2 evenings ago had a temperature 101 F he took aspirin and fever resolved. States this morning had temperature 101F again took aspirin. Patient denies any noted erythema or rashes to hips or back. History of chronic wound to lower extremity and passive follow-up with wound clinic, wound has since closed and patient continues to wear tube socks. Patient history neck degenerative changes & surgery done by Dr. Conde in the past. Denies diaphoresis, N/V/D/C, TELLO, dizziness, syncope, vision changes, CP, SOB, orthopnea, palpitations, cough, sore throat, choking, otalgia, rhinorrhea, abdominal pain, extremity edema, urinary symptoms. Denies history surgery to L- spine or hips. Denies recent injury or trauma. Patient was seen in ER on 12/28/17 for lower extremity weakness and discharged home. Patient has history of admission 11/2017 hypertension secondary to dehydration versus BP meds. Hospitalization 10/2017 for influenza A and pneumonia. Past Medical/Surgical History Medical Problems: (1) Benign hypertension Status: Chronic (2) Axfvobs-Dmloc-Wrtcd disease Status: Chronic (3) CMT (Hfrdzts-Xalbo-Sstlk disease) Status: Chronic (4) COPD (chronic obstructive pulmonary disease) Status: Chronic (5) Diabetes mellitus type 2 Status: Chronic (6) Gastroesophageal reflux disease Status: Chronic (7) Gout Status: Chronic (8) Hyperlipidemia Status: Chronic (9) Hypertensive heart disease Status: Chronic (10) Tobacco user Status: Chronic Surgical Problems: (1) Hx of tonsillectomy Status: Chronic (2) S/P cervical spinal fusion Status: Chronic (3) Status post cholecystectomy Status: Chronic Family History COPD (chronic obstructive pulmonary disease) MOTHER Vutusfe-Gnyba-Llyzj disease DAUGHTER Coronary artery disease MOTHER Social History Smoking Status: Former Smoker (quit 2 months ago, on chantix) Smokeless Tobacco Use: No Alcohol Use: none Drug Use: none Marital Status: single Housing status: lives alone Occupational Status: retired Immunizations History of Influenza Vaccine: N/A History of Tetanus Vaccine?: Yes Tetanus Immunization Date: May 16, 2005 History of Pneumococcal: Yes Pneumococcal Date: May 16, 2005 History of Hepatitis B Vaccine: No Hepatitis Immunization Date: Jan 14, 2008 Allergies Coded Allergies: Penicillins (Verified Allergy, Intermediate, RASH, 12/30/17) Home Medications Scheduled Aspirin (Aspirin Ec), 81 MG PO QAM B Complex W/ C (Vitamin B Complex-C), 1 CAP PO QAM Calcium Ascorbate (Vitamin C), 1 TAB PO DAILY Canagliflozin (Invokana), 100 MG PO DAILY Cholecalciferol (Vitamin D3 Ultra Strength), 5,000 UNITS PO QPM Digoxin (Digoxin), 0.125 MG PO DAILY Finasteride (Proscar), 5 MG PO QPM Fluticasone Prop/Salmeterol (Advair Diskus 250/50 60 Dose), 1 PUFF INH BID Furosemide (Furosemide), 10 MG PO QAM Gabapentin (Neurontin), 300 MG PO TID Glimepiride (Glimepiride), 4 MG PO QAM Lovastatin (Mevacor), 10 MG PO QPM Magnesium Oxide (Mg Supplement (Magnesium), 500 MG PO DAILY Melatonin (Melatonin Maximum Strengt), 5 MG PO HS Metformin Hcl (Glucophage), 1,000 MG PO BID Metoprolol Tartrate (Lopressor) (Lopressor), 12.5 MG PO BID Multivitamin (Multivitamin), 1 TAB PO DAILY Niacin Ext Rel (Niaspan Ext Rel), 1,000 MG PO BID Omeprazole (Prilosec), 40 MG PO DAILY Tamsulosin Hcl (Flomax), 0.4 MG PO QPM Varenicline (Chantix), 1 MG PO BID Scheduled PRN Albuterol Hfa (Ventolin Hfa), 2 PUFFS INH Q6H PRN for SOB/Wheezing Oxycodone Hcl (Oxycodone Hcl), 10 MG PO Q6H PRN for Pain Review of Systems See HPI for pertinent positives & negatives. All other systems reviewed and were otherwise negative Physical Exam Vital Signs Date Time Temp Pulse Resp B/P (MAP) Pulse Ox O2 Delivery O2 Flow Rate FiO2 12/30/17 15:33 64 18 126/88 94 12/30/17 14:45 69 14 96 12/30/17 14:31 129/72 12/30/17 14:15 66 16 95 12/30/17 14:01 113/55 12/30/17 13:15 74 18 12/30/17 13:10 69 24 94 12/30/17 13:01 98/56 12/30/17 12:56 96/60 12/30/17 12:40 71 20 92 12/30/17 12:36 37.0 12/30/17 12:10 73 20 94 12/30/17 11:44 78 12/30/17 11:42 109/63 12/30/17 11:40 78 16 95 12/30/17 11:30 94 Room Air 12/30/17 11:17 36.9 80 18 112/68 94 Room Air General Appearance: no apparent distress, + obese Head: normocephalic, atraumatic Eyes: normal inspection, sclerae normal ENT: hearing grossly normal, pharynx normal, + pertinent finding (Mucous membranes moist) Neck: supple, trachea midline Respiratory/Chest: lungs clear, normal breath sounds, no respiratory distress Cardiovascular: regular rate, rhythm, + systolic murmur Abdomen/GI: normal bowel sounds, non tender, soft Back: no CVA tenderness, + pertinent finding (Tenderness lower lumbar region bilaterally. No rashes or discolorations to the skin noted. Limited range of motion secondary to tenderness.) Extremities/Musculoskelatal: no calf tenderness, non-tender, + pedal edema ( Mild), + pertinent finding (Active flexion bilateral hip reproduces pain to the posterior hips and buttocks. Active internal rotation bilateral hips with tenderness. Active external rotation bilateral hips without tenderness. Bilateral straight leg raise to approximately 45 tenderness. Left anterior lower leg with patches of erythema and dry skin no open areas no red streaking.) Neurologic/Psych: alert, normal mood/affect, oriented x 3 Skin: warm/dry Diagnostics Laboratory Results Results Past 24 Hours Test 12/30/17 11:30 12/30/17 11:35 12/30/17 15:36 Range/Units Urine Color YELLOW Urine Appearance CLEAR CLEAR Urine pH 5.0 4.5-7.5 Urine Specific [place] 1.027 1.000-1.030 Urine Protein NEG NEG Urine Glucose (UA) 3+ NEG Urine Ketones TRACE NEG Urine Occult Blood NEG NEG Urine Nitrite NEG NEG Urine Bilirubin NEG NEG Urine Urobilinogen NEG NEG Urine Leukocyte Esterase NEG NEG White Blood Count 5.83 4.8-10.8 K/uL Red Blood Count 4.73 4.7-6.1 M/uL Hemoglobin 14.7 14.0-18.0 g/dL Hematocrit 43.6 42-52 % Mean Corpuscular Volume 92.2 80-100 fL Mean Corpuscular Hemoglobin 31.1 25-34 pg Mean Corpuscular Hemoglobin Concent 33.7 32-36 g/dl Platelet Count 138 130-400 K/uL Mean Platelet Volume 10.2 7.4-10.4 fL Neutrophils (%) (Auto) 70.8 % Lymphocytes (%) (Auto) 15.1 % Monocytes (%) (Auto) 12.9 % Eosinophils (%) (Auto) 0.2 % Basophils (%) (Auto) 0.5 % Neutrophils # (Auto) 4.13 1.4-6.5 K/uL Lymphocytes # (Auto) 0.88 1.2-3.4 K/uL Monocytes # (Auto) 0.75 0.11-0.59 K/uL Eosinophils # (Auto) 0.01 0-0.5 K/uL Basophils # (Auto) 0.03 0-0.2 K/uL RDW Standard Deviation 52.9 36.4-46.3 fL RDW Coefficient of Variation 15.4 11.5-14.5 % Immature Granulocyte % (Auto) 0.5 % Immature Granulocyte # (Auto) 0.03 0.00-0.02 K/uL Erythrocyte Sedimentation Rate 60 0-14 mm/hr Prothrombin Time 11.0 9.0-12.0 SECONDS Prothromb Time International Ratio 1.0 0.9-1.1 Activated Partial Thromboplast Time 28.6 21.0-31.0 SECONDS Partial Thromboplastin Ratio 1.1 Sodium Level 132 136-145 mmol/L Potassium Level 4.0 3.5-5.1 mmol/L Chloride Level 97 98-107 mmol/L Carbon Dioxide Level 26 21-32 mmol/L Anion Gap 9.0 3-11 mmol/L Blood Urea Nitrogen 21 7-18 mg/dl Creatinine 1.00 0.60-1.40 mg/dl Est Creatinine Clear Calc Drug Dose 76.9 ml/min Estimated GFR () 88.0 Estimated GFR (Non- 75.9 BUN/Creatinine Ratio 21.3 10-20 Random Glucose 189 70-99 mg/dl Calcium Level 8.9 8.5-10.1 mg/dl Magnesium Level 1.8 1.8-2.4 mg/dl Total Bilirubin 0.7 0.2-1 mg/dl Direct Bilirubin 0.3 0-0.2 mg/dl Aspartate Amino Transf (AST/SGOT) 106 15-37 U/L Alanine Aminotransferase (ALT/SGPT) 112 12-78 U/L Alkaline Phosphatase 257 45-117 U/L Troponin I 0.015 0-0.045 ng/ml C-Reactive Protein 6.46 0-0.29 mg/dl Total Protein 7.3 6.4-8.2 gm/dl Albumin 2.8 3.4-5.0 gm/dl Lipase 135 73-393 U/L Thyroid Stimulating Hormone (TSH) 1.690 0.300-4.500 uIu/ml Microbiology Results 12/30/17 Urine Culture, Received Pending Diagnostic Radiology CXR: IMPRESSION: 1. Mildly low lung volumes with hypoventilatory changes. No focal infiltrate to suggest pneumonia. L-SPINE X-RAY: IMPRESSION: 1. No acute lumbar spine fracture or subluxation. 2. Severe multilevel degenerative disc disease and facet arthrosis. 3. Mild levoscoliosis of the lumbar spine and grade I anterolisthesis of L5 on S1 likely due to severe facet arthrosis. RIGHT HIP X-RAY: IMPRESSION: Osteopenia and mild arthritic change as above. No acute bony abnormality is seen in the right hip. LEFT HIP X-RAY: IMPRESSION: Minor arthritic change within the left hip. No fracture or dislocation. EKG EKG: Normal sinus rhythm, rate 73 Read by cardiology: Normal sinus rhythm Low voltage QRS Cannot rule out Inferior infarct (cited on or before 10-NOV-2017) Cannot rule out Anterior infarct (cited on or before 21-JUN-2017) Abnormal ECG When compared with ECG of 28-DEC-2017 20:59, No significant change was found Confirmed by PRATIBHA BOSE ([id number]) on 12/30/2017 1:47:00 PM Impression Assessment and Plan AMBULATORY DYSFUNCTION SECONDARY TO BILATERAL HIP PAIN/LUMBAR BACK PAIN patient reports increased lumbar spine pain and bilateral hip pain right greater than left. Pain right hip radiating to right upper leg. Denies injury or trauma. ER L-spine and bilateral hip x-rays no fractures. -Pending MRI L-spine and hip -Fentanyl patch -Morphine as needed severe pain -PT/OT eval -May need orthopedic consult, pain management consult -online education manager consult as patient may require further services/rehab FEVER Reported fever 101F 2 nights ago and this morning relieved with aspirin. No fever noted in ER. Negative UA. Negative CXR. No leukocytosis. no N/V/D or abdominal pain. No skin discolorations that states hip and back pain. Pending MRI. -Pending urine culture -will continue to monitor at this time [id number] -Continue gabapentin -hold oxycodone, fentanyl patch and morphine prn breakthrough pain DM II HA1c 8.1 on 11/13 -Hold home meds -Lantus, NovoLog sliding scale per protocol COPD No cough or wheezing or shortness of breath. -Continue home inhalers -Advair, albuterol as needed HISTORY OF PAROXYSMAL ATRIAL FIBRILLATION Current sinus rhythm. Not on Coumadin secondary to bleeding in past. -Continue beta-abilio, aspirin GERD -Continue PPI HYPERLIPIDEMIA -Continue statin WAGNER Liver functions at approximate baseline today -Continue to monitor CKD II Cr: 1. At baseline -Monitor renal function -Avoid nephrotoxic agents when possible HISTORY OF TOBACCO ABUSE Patient quit smoking 2 months ago is currently on Chantix -Continue Chantix DVT Prophylaxis -Heparin SQ Disposition admit MedSurg Full code code as per discussion with pt, however states does not want extended heroic measures if poor progress Follows with Dr Rodney for routine care Pt was seen with Dr Lee. See addendum ADDENDUM: This is a 72 year old male with a PMH of Mqhbtfu-Aqkrz-Yklfw, paroxysmal a. Fib , fatty liver - presents with worsening low back, bilateral hip and lower extremity pain. He uses a walker and an electric wheelchair to get around because of muscle atrophy from CMT. He states that he has required the wheelchair the past two days because the pain became severe. He gets oxycodone for pain by his PCP - for his CMT pain. States that this did not work for his back pain. MRI was done - reveals multilevel foraminal narrowing/spinal stenosis and degenerative changes at the lumbar (L2-L4) region. Plan: Will add a Fentanyl patch for pain, Oxycodone or Morphine for breakthrough pain will consult ortho and pain management. PT/OT discharge planning monitor signs of infection; as patient mentioned having a fever at home Resuscitation Status VTE Prophylaxis Will order VTE Prophylaxis: Yes Additional Copies To Mohan Perry M.D.
--- NOTE | 2017-12-30 17:03 | DIAGNOSTIC IMAGING REPORT ---
MRI LUMBAR SPINE W/O CONTRAST CLINICAL HISTORY: Back and bilateral hip pain. TECHNIQUE: Sagittal and axial T1, T2 and STIR images were obtained. COMPARISON STUDY: No previous studies for comparison. OBSERVATIONS: The vertebral bodies and posterior elements appear intact. There is no abnormal bony signal present to suggest a marrow replacement process. L1-2: There is a circumferential disc bulge present. There is no significant spinal stenosis. There is bilateral right greater than left foraminal narrowing. L2-3: There is a circumferential disc bulge and broad-based central disc protrusion. There is mild spinal stenosis. There is bilateral foraminal narrowing right greater than left. L3-4: There is a circumferential disc bulge. There is moderate spinal stenosis. There is severe bilateral foraminal narrowing. L4-5: There is a mild circumferential disc bulge. There is a slight triangular configuration of the thecal sac. There is mild bilateral foraminal narrowing L5-S1: There is a small central disc protrusion. There is mild spinal canal narrowing. There is facet joint arthropathy. There is bilateral foraminal narrowing. The conus medullaris and cauda equina appear normal. IMPRESSION: 1. Advanced multilevel spondylitic changes 2. Spinal stenosis, most severe at the L3-4 level. 3. Multilevel foraminal narrowing which is severe bilaterally at the L3-4 level. Electronically signed by: Justin Israel M.D. 12/30/2017 5:02 PM Dictated Date/Time: 12/30/2017 4:58 PM
[2017-12-30 18:00] VITALS: BP 135/77; PULSE 78; TEMP 36.7; O2SAT 96; Ht 167.6 cm; Wt 100.1 kg
[2017-12-30] MEDS ORDERED: FENTANYL 12 MCG/HR TDSY TD SCH (18:00)
[2017-12-30 18:12] VITALS: BP 135/77; PULSE 73; TEMP 36.7; O2SAT 96
[2017-12-30] MEDS: VARENICLINE (CHANTIX) 1 MG TAB PO SCH (19:05)
[2017-12-30] MEDS: HEPARIN SOD 5000 UNIT/0.5 ML CARP SQ SCH (19:09)
[2017-12-30] MEDS ORDERED: KETOROLAC TROMETHAMINE 15 MG/ML VIAL IV. STA (19:18)
[2017-12-30] MEDS: OXYCODONE HCL IR 5 MG TAB (IMMEDIATE RELEASE) PO PRN (19:40)
[2017-12-30] MEDS: INSULIN ASPART 100 UNITS/ML 3 ML PEN SC SCH (21:00)
[2017-12-30] MEDS ORDERED: NON-FORMULARY MEDICATION (Melatonin (Melatonin Maximum Strengt) 5 MG) PO SCH (21:00)
[2017-12-30] MEDS: FLUTICASONE/SALMETEROL 250/50 (ADVAIR) 14 PUFF/1 INHALER INH SCH (21:59)
[2017-12-30] MEDS: GABAPENTIN 300 MG CAP PO SCH (22:02)
[2017-12-30] MEDS: METOPROLOL TARTRATE 25 MG TAB PO SCH (22:02)
[2017-12-30] MEDS: INSULIN GLARGINE SOLOSTAR 100 UNITS/ML 3 ML PEN SC SCH (22:04)
[2017-12-30] MEDS: NIASPAN 500 MG TABCR PO SCH (22:05)
[2017-12-30] MEDS: TAMSULOSIN HCL 0.4 MG CAP PO SCH (22:05)
[2017-12-30] MEDS: FINASTERIDE 5 MG TAB PO SCH (22:05)
[2017-12-30] MEDS: LOVASTATIN 20 MG TAB PO SCH (22:05)
[2017-12-30] MEDS: CHOLECALCIFEROL 1000 INTER.UNIT TAB PO SCH (22:06)
[2017-12-30] MEDS: MoRPHine SULFATE 2 MG/ML CARP IV PRN (22:08)
[2017-12-30 22:15] VITALS: TEMP 37
[2017-12-30 23:30] VITALS: BP 131/66; PULSE 86; TEMP 36.9; O2SAT 93
[2017-12-30] MEDS: CHECK FENTANYL PATCH PLACEMENT SCH (23:58)
[2017-12-31] MEDS: OXYCODONE HCL IR 5 MG TAB (IMMEDIATE RELEASE) PO PRN ×5 (00:18→23:53)
[2017-12-31] MEDS: HEPARIN SOD 5000 UNIT/0.5 ML CARP SQ SCH ×2 (06:36→19:27)
[2017-12-31 07:49] VITALS: BP 138/79; PULSE 83; TEMP 37.3; O2SAT 94
[2017-12-31 07:52] LABS: HEMATOCRIT 41.8 % (42-52); HEMOGLOBIN 14.3 g/dL (14.0-18.0); MEAN CELL VOLUME 93.1 fL (80-100); MEAN CORPUSCULAR HEMOGLOBIN 31.8 pg (25-34); MEAN CORPUSCULAR HGB CONC 34.2 g/dl (32-36); MEAN PLATELET VOLUME 10.4 fL (7.4-10.4); PLATELET COUNT 132 K/uL (130-400); RED CELL DISTRIBUTION WIDTH CV 15.2 % (11.5-14.5); RED CELL DISTRIBUTION WIDTH SD 51.4 fL (36.4-46.3); WHITE BLOOD COUNT 5.51 K/uL (4.8-10.8)
[2017-12-31] MEDS: CHECK FENTANYL PATCH PLACEMENT SCH ×3 (08:00→23:53)
[2017-12-31] MEDS: MoRPHine SULFATE 2 MG/ML CARP IV PRN (08:06)
[2017-12-31 08:24] LABS: ALBUMIN 2.7 gm/dl (3.4-5.0); CALCIUM 8.9 mg/dl (8.5-10.1); CREATININE 0.91 mg/dl (0.60-1.40); POTASSIUM 3.9 mmol/L (3.5-5.1)
[2017-12-31 08:26] LABS: TOTAL PROTEIN 6.8 gm/dl (6.4-8.2)
[2017-12-31] MEDS: VARENICLINE (CHANTIX) 1 MG TAB PO SCH ×2 (09:26→18:01)
[2017-12-31] MEDS: FLUTICASONE/SALMETEROL 250/50 (ADVAIR) 14 PUFF/1 INHALER INH SCH ×2 (09:26→21:24)
[2017-12-31] MEDS: GABAPENTIN 300 MG CAP PO SCH ×3 (09:27→21:27)
[2017-12-31] MEDS: ASPIRIN 81 MG ECTAB PO SCH (09:27)
[2017-12-31] MEDS: NIASPAN 500 MG TABCR PO SCH ×2 (09:27→21:25)
[2017-12-31] MEDS: PANTOprazole SOD 40 MG TAB PO SCH (09:27)
[2017-12-31] MEDS: MAGNESIUM OXIDE 400 MG TAB PO SCH (09:28)
[2017-12-31] MEDS: FUROSEMIDE 20 MG TAB PO SCH (09:28)
[2017-12-31] MEDS: METOPROLOL TARTRATE 25 MG TAB PO SCH ×2 (09:30→21:27)
[2017-12-31] MEDS: INSULIN GLARGINE SOLOSTAR 100 UNITS/ML 3 ML PEN SC SCH ×2 (09:32→21:37)
[2017-12-31] MEDS: INSULIN ASPART 100 UNITS/ML 3 ML PEN SC SCH ×4 (09:34→21:36)
--- NOTE | 2017-12-31 10:31 | Orthopedic Consultation ---
Orthopedic Consultation Date of Consultation: Dec 31, 2017. Attending Physician: Sunday Abbott MD Reason for Consultation: Back and bilateral leg pain History of Present Illness This is a very pleasant 72-year-old male well-known to me from management in the past regarding his cervical spine. He notes decline in status beginning of this week. He was unable to get out of his chair. He required EMS visit to the home seen in the emergency room but eventually discharge as he was able to ambulate. Unfortunately he continued to decline and to return to the hospital. He describes his pain across lumbosacral junction bilateral buttocks and posterior thighs. It is markedly exacerbated by standing and walking. He still has some discomfort even at rest in bed. Denies any numbness and tingling in the thighs. He does have Fbwjgjs-Dnzhi-Wjccd disease affecting his lower extremities. This is well-established. He denies any loss of bowel or bladder function. He denies any recent significant trauma fall or event. Past Medical/Surgical History Medical Problems: (1) Abnormal LFTs Status: Acute (2) TIO (acute kidney injury) Status: Acute (3) Cellulitis Status: Acute (4) Cellulitis Status: Acute (5) COPD exacerbation Status: Acute (6) Degenerative disc disease, lumbar Status: Acute (7) Fever Status: Acute (8) HCAP (healthcare-associated pneumonia) Status: Acute (9) Hyperglycemia Status: Acute (10) Hyperglycemia Status: Acute (11) Hyperglycemia Status: Acute (12) Hyponatremia Status: Acute (13) Right lower lobe pneumonia Status: Acute (14) Sepsis Status: Acute (15) Weakness Status: Acute Family History COPD (chronic obstructive pulmonary disease) MOTHER Vhmizql-Sczbr-Ntfrr disease DAUGHTER Coronary artery disease MOTHER Social History Smoking Status: Former Smoker Smokeless Tobacco Use: No Alcohol Use: none Drug Use: none Marital Status: single Housing Status: lives with family Occupation Status: retired Allergies Coded Allergies: Penicillins (Verified Allergy, Intermediate, RASH, 12/30/17) Unclassified Drugs (Verified Allergy, Intermediate, 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, 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) See list of potentially neurotoxic medications Home Medications Scheduled Aspirin (Aspirin Ec), 81 MG PO QAM B Complex W/ C (Vitamin B Complex-C), 1 CAP PO QAM Calcium Ascorbate (Vitamin C), 1 TAB PO DAILY Canagliflozin (Invokana), 100 MG PO DAILY Cholecalciferol (Vitamin D3 Ultra Strength), 5,000 UNITS PO QPM Digoxin (Digoxin), 0.125 MG PO DAILY Finasteride (Proscar), 5 MG PO QPM Fluticasone Prop/Salmeterol (Advair Diskus 250/50 60 Dose), 1 PUFF INH BID Furosemide (Furosemide), 10 MG PO QAM Gabapentin (Neurontin), 300 MG PO TID Glimepiride (Glimepiride), 4 MG PO QAM Lovastatin (Mevacor), 10 MG PO QPM Magnesium Oxide (Mg Supplement (Magnesium), 500 MG PO DAILY Melatonin (Melatonin Maximum Strengt), 5 MG PO HS Metformin Hcl (Glucophage), 1,000 MG PO BID Metoprolol Tartrate (Lopressor) (Lopressor), 12.5 MG PO BID Multivitamin (Multivitamin), 1 TAB PO DAILY Niacin Ext Rel (Niaspan Ext Rel), 1,000 MG PO BID Omeprazole (Prilosec), 40 MG PO DAILY Tamsulosin Hcl (Flomax), 0.4 MG PO QPM Varenicline (Chantix), 1 MG PO BID Scheduled PRN Albuterol Hfa (Ventolin Hfa), 2 PUFFS INH Q6H PRN for SOB/Wheezing Oxycodone Hcl (Oxycodone Hcl), 10 MG PO Q6H PRN for Pain Current Inpatient Medications Current Inpatient Medications Medications (Trade) Dose Ordered Sig/Katherine Route Start Time Stop Time Status Last Admin Dose Admin Acetaminophen (Tylenol Tab) 650 mg Q4H PRN PO 12/30/17 15:45 01/29/18 15:44 Magnesium Hydroxide (Milk Of Magnesia Susp) 30 ml Q6H PRN PO 12/30/17 15:45 01/29/18 15:44 Ondansetron HCl (Zofran Inj) 4 mg Q6H PRN IV 12/30/17 15:45 01/29/18 15:44 Heparin Sodium (Porcine) (Heparin Sq 5000 Unit/0.5ml) 5,000 unit Q12H SQ 12/30/17 19:00 01/29/18 18:59 12/30/17 19:09 5,000 UNIT Albuterol (Ventolin Hfa Inhaler) 2 puffs Q6H PRN INH 12/30/17 16:00 01/29/18 15:59 Aspirin (Ecotrin Tab) 81 mg QAM PO 12/31/17 09:00 01/30/18 08:59 Digoxin (Lanoxin Tab) 0.125 mg DAILY@1600 PO 12/30/17 17:00 01/29/18 16:59 Finasteride (Proscar Tab) 5 mg QPM PO 12/30/17 21:00 01/29/18 20:59 12/30/17 22:05 5 MG Salmeterol Xinafoate/ Fluticasone (Advair Diskus 250/50 Inh) 1 puff BID INH 12/30/17 21:00 01/29/18 20:59 12/30/17 21:59 1 PUFF Furosemide (Lasix Tab) 10 mg QAM PO 12/31/17 09:00 01/30/18 08:59 Gabapentin (Neurontin Cap) 300 mg TID PO 12/30/17 21:00 01/29/18 20:59 12/30/17 22:02 300 MG Lovastatin (Mevacor Tab) 10 mg QPM PO 12/30/17 21:00 01/29/18 20:59 12/30/17 22:05 10 MG Metoprolol Tartrate (Lopressor Tab) 12.5 mg BID PO 12/30/17 21:00 01/29/18 20:59 12/30/17 22:02 12.5 MG Niacin (Niaspan Extended Rel Tab) 1,000 mg BID PO 12/30/17 21:00 01/29/18 20:59 12/30/17 22:05 1,000 MG Tamsulosin HCl (Flomax Cap) 0.4 mg QPM PO 12/30/17 21:00 01/29/18 20:59 12/30/17 22:05 0.4 MG Varenicline (Chantix) 1 mg BIDM PO 12/30/17 17:55 01/29/18 17:59 12/30/17 19:05 1 MG Cholecalciferol (Vitamin D Tab) 5,000 inter.unit QPM PO 12/30/17 21:00 01/29/18 20:59 12/30/17 22:06 5,000 INTER.UNIT Magnesium Oxide (Mag-Ox Tab) 400 mg DAILY PO 12/31/17 09:00 01/30/18 08:59 Pantoprazole Sodium (Protonix Tab) 40 mg DAILY PO 12/31/17 09:00 01/30/18 08:59 Morphine Sulfate (MoRPHine SULFATE INJ) 2 mg Q4 PRN IV 12/30/17 16:00 01/13/18 15:59 12/31/17 08:06 2 MG Insulin Glargine (Lantus Solostar Pen) 5 units Q12 SC 12/30/17 21:00 01/29/18 20:59 12/30/17 22:04 5 UNITS Insulin Aspart (novoLOG ASPART) SLIDING SCALE If C... ACHS SC 12/30/17 21:00 01/29/18 20:59 Glucose (Glucose 40% Gel) 15-30 GRAMS 15 GRAMS... UD PRN PO 12/30/17 16:15 01/29/18 16:14 Glucose (Glucose Chew Tab) 4-8 Tablets 4 Tabl... UD PRN PO 12/30/17 16:15 01/29/18 16:14 Dextrose (Dextrose 50% 50ML Syringe) 25-50ML OF 50% DW IV FOR... UD PRN IV 12/30/17 16:15 01/29/18 16:14 Glucagon (Glucagon Inj) 1 mg UD PRN SQ 12/30/17 16:15 01/29/18 16:14 Miscellaneous (Iv Fluids Completed) 1 ea PRN PRN N/A 12/30/17 16:30 12/30/18 16:29 Fentanyl (Duragesic Patch) 12 mcg Q72H TD 12/30/17 18:00 01/13/18 17:59 12/30/17 19:09 12 MCG Miscellaneous (Fentanyl Patch Remove & Waste) 1 ea Q3D@1759 N/A 01/02/18 17:59 02/01/18 17:58 Miscellaneous Information (Check Fentanyl Patch Placement) 1 ea QS N/A 12/31/17 00:00 01/30/18 00:00 12/30/17 23:58 1 EA Oxycodone HCl (Roxicodone Immediate Rel Tab) 10 mg Q4 PRN PO 12/30/17 18:45 01/13/18 18:44 12/31/17 05:38 10 MG Physical Exam Date Time Temp Pulse Resp B/P (MAP) Pulse Ox O2 Delivery O2 Flow Rate FiO2 12/31/17 07:49 37.3 83 18 138/79 (98) 94 Room Air 12/30/17 23:50 Room Air 12/30/17 23:30 36.9 86 20 131/66 (87) 93 Room Air 12/30/17 22:15 37.0 12/30/17 18:12 36.7 73 18 135/77 (96) 96 Room Air 12/30/17 18:00 36.7 78 16 135/77 96 Room Air 12/30/17 17:37 71 18 116/65 94 Room Air 12/30/17 15:33 64 18 126/88 94 12/30/17 14:45 69 14 96 12/30/17 14:31 129/72 12/30/17 14:15 66 16 95 12/30/17 14:01 113/55 12/30/17 13:15 74 18 12/30/17 13:10 69 24 94 12/30/17 13:01 98/56 12/30/17 12:56 96/60 12/30/17 12:40 71 20 92 12/30/17 12:36 37.0 12/30/17 12:10 73 20 94 12/30/17 11:44 78 12/30/17 11:42 109/63 12/30/17 11:40 78 16 95 12/30/17 11:30 94 Room Air 12/30/17 11:17 36.9 80 18 112/68 94 Room Air On physical exam he is alert and oriented. He demonstrates no gross tension signs. 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 He has full sensation over. Reasonable quad strength to testing. He does have soreness to palpation bilateral quadriceps and bilateral buttock musculature. Negative logroll. Laboratory Results Last 24 Hours Test 12/30/17 11:30 12/30/17 11:35 12/30/17 18:02 12/30/17 18:29 Urine Color YELLOW Urine Appearance CLEAR Urine pH 5.0 Urine Specific [place] 1.027 Urine Protein NEG Urine Glucose (UA) 3+ Urine Ketones TRACE Urine Occult Blood NEG Urine Nitrite NEG Urine Bilirubin NEG Urine Urobilinogen NEG Urine Leukocyte Esterase NEG White Blood Count 5.83 K/uL Red Blood Count 4.73 M/uL Hemoglobin 14.7 g/dL Hematocrit 43.6 % Mean Corpuscular Volume 92.2 fL Mean Corpuscular Hemoglobin 31.1 pg Mean Corpuscular Hemoglobin Concent 33.7 g/dl Platelet Count 138 K/uL Mean Platelet Volume 10.2 fL Neutrophils (%) (Auto) 70.8 % Lymphocytes (%) (Auto) 15.1 % Monocytes (%) (Auto) 12.9 % Eosinophils (%) (Auto) 0.2 % Basophils (%) (Auto) 0.5 % Neutrophils # (Auto) 4.13 K/uL Lymphocytes # (Auto) 0.88 K/uL Monocytes # (Auto) 0.75 K/uL Eosinophils # (Auto) 0.01 K/uL Basophils # (Auto) 0.03 K/uL RDW Standard Deviation 52.9 fL RDW Coefficient of Variation 15.4 % Immature Granulocyte % (Auto) 0.5 % Immature Granulocyte # (Auto) 0.03 K/uL Erythrocyte Sedimentation Rate 60 mm/hr Prothrombin Time 11.0 SECONDS Prothromb Time International Ratio 1.0 Activated Partial Thromboplast Time 28.6 SECONDS Partial Thromboplastin Ratio 1.1 Sodium Level 132 mmol/L Potassium Level 4.0 mmol/L Chloride Level 97 mmol/L Carbon Dioxide Level 26 mmol/L Anion Gap 9.0 mmol/L Blood Urea Nitrogen 21 mg/dl Creatinine 1.00 mg/dl Est Creatinine Clear Calc Drug Dose 76.9 ml/min Estimated GFR () 88.0 Estimated GFR (Non- 75.9 BUN/Creatinine Ratio 21.3 Random Glucose 189 mg/dl Calcium Level 8.9 mg/dl Magnesium Level 1.8 mg/dl Total Bilirubin 0.7 mg/dl Direct Bilirubin 0.3 mg/dl Aspartate Amino Transf (AST/SGOT) 106 U/L Alanine Aminotransferase (ALT/SGPT) 112 U/L Alkaline Phosphatase 257 U/L Troponin I 0.015 ng/ml C-Reactive Protein 6.46 mg/dl Total Protein 7.3 gm/dl Albumin 2.8 gm/dl Lipase 135 U/L Thyroid Stimulating Hormone (TSH) 1.690 uIu/ml Bedside Glucose 168 mg/dl Digoxin Level 0.6 ng/ml Test 12/30/17 20:18 12/31/17 07:35 12/31/17 08:17 Bedside Glucose 145 mg/dl 126 mg/dl White Blood Count 5.51 K/uL Red Blood Count 4.49 M/uL Hemoglobin 14.3 g/dL Hematocrit 41.8 % Mean Corpuscular Volume 93.1 fL Mean Corpuscular Hemoglobin 31.8 pg Mean Corpuscular Hemoglobin Concent 34.2 g/dl RDW Standard Deviation 51.4 fL RDW Coefficient of Variation 15.2 % Platelet Count 132 K/uL Mean Platelet Volume 10.4 fL Sodium Level 133 mmol/L Potassium Level 3.9 mmol/L Chloride Level 96 mmol/L Carbon Dioxide Level 29 mmol/L Anion Gap 8.0 mmol/L Blood Urea Nitrogen 22 mg/dl Creatinine 0.91 mg/dl Est Creatinine Clear Calc Drug Dose 84.5 ml/min Estimated GFR () 98.6 Estimated GFR (Non- 85.1 BUN/Creatinine Ratio 23.8 Random Glucose 125 mg/dl Calcium Level 8.9 mg/dl Total Bilirubin 0.9 mg/dl Aspartate Amino Transf (AST/SGOT) 97 U/L Alanine Aminotransferase (ALT/SGPT) 105 U/L Alkaline Phosphatase 214 U/L Total Protein 6.8 gm/dl Albumin 2.7 gm/dl Globulin 4.1 gm/dl Albumin/Globulin Ratio 0.7 Assessment & Plan Assessment severe multilevel spinal stenosis. Plan had a long discussion with this patient and his family he was in the room during our evaluation. The MRI demonstrates evidence of severe multilevel spinal stenosis with spondylolisthesis L5-S1. There are significant bilateral neural foraminal disease at the L5-S1 levels. This may very well account for his bilateral leg pain and weakness. However his laboratory chemistries demonstrate evidence of underlying inflammatory process possible infection. I am recommending that we continue with observation only. We may consider consultation with pain management Tuesday if we consider possible epidural injections. Obviously would like to avoid any surgical intervention if possible.
--- NOTE | 2017-12-31 10:36 | Progress Note ---
Medicine Progress Note Date & Time of Visit: Dec 31, 2017 at 10:36. Subjective Seen sleeping in bed but easily arousable States pain scale is about moderate Denies leg weakness or numbness No fever chills, headache, cough, abdominal pain, changes in urination or bowel movements No other symptoms Objective Last 8 Hrs Date Time Temp Pulse Resp B/P (MAP) Pulse Ox O2 Delivery O2 Flow Rate FiO2 12/31/17 07:49 37.3 83 18 138/79 (98) 94 Room Air Physical Exam: General-oriented 3 not in distress speaking sentences Head- atraumatic Eyes- PERRL, EOMI, anicteric ENT- oropharynx clear Neck- supple, no JVD, no adenopathy, no thyromegaly Lungs- clear breath sounds bilaterally Heart- regular rhythm; no murmur, normal rate Abdomen- normal bowel sounds, soft, nontender Extremities- no pretibial edema, no calf tenderness; peripheral pulses intact Neuro- alert, oriented x 3; no gross focal motor or sensory deficits Skin- warm & dry Laboratory Results: Last 24 Hours Test 12/30/17 11:30 12/30/17 11:35 12/30/17 18:02 12/30/17 18:29 Urine Color YELLOW Urine Appearance CLEAR Urine pH 5.0 Urine Specific [place] 1.027 Urine Protein NEG Urine Glucose (UA) 3+ Urine Ketones TRACE Urine Occult Blood NEG Urine Nitrite NEG Urine Bilirubin NEG Urine Urobilinogen NEG Urine Leukocyte Esterase NEG White Blood Count 5.83 K/uL Red Blood Count 4.73 M/uL Hemoglobin 14.7 g/dL Hematocrit 43.6 % Mean Corpuscular Volume 92.2 fL Mean Corpuscular Hemoglobin 31.1 pg Mean Corpuscular Hemoglobin Concent 33.7 g/dl Platelet Count 138 K/uL Mean Platelet Volume 10.2 fL Neutrophils (%) (Auto) 70.8 % Lymphocytes (%) (Auto) 15.1 % Monocytes (%) (Auto) 12.9 % Eosinophils (%) (Auto) 0.2 % Basophils (%) (Auto) 0.5 % Neutrophils # (Auto) 4.13 K/uL Lymphocytes # (Auto) 0.88 K/uL Monocytes # (Auto) 0.75 K/uL Eosinophils # (Auto) 0.01 K/uL Basophils # (Auto) 0.03 K/uL RDW Standard Deviation 52.9 fL RDW Coefficient of Variation 15.4 % Immature Granulocyte % (Auto) 0.5 % Immature Granulocyte # (Auto) 0.03 K/uL Erythrocyte Sedimentation Rate 60 mm/hr Prothrombin Time 11.0 SECONDS Prothromb Time International Ratio 1.0 Activated Partial Thromboplast Time 28.6 SECONDS Partial Thromboplastin Ratio 1.1 Sodium Level 132 mmol/L Potassium Level 4.0 mmol/L Chloride Level 97 mmol/L Carbon Dioxide Level 26 mmol/L Anion Gap 9.0 mmol/L Blood Urea Nitrogen 21 mg/dl Creatinine 1.00 mg/dl Est Creatinine Clear Calc Drug Dose 76.9 ml/min Estimated GFR () 88.0 Estimated GFR (Non- 75.9 BUN/Creatinine Ratio 21.3 Random Glucose 189 mg/dl Calcium Level 8.9 mg/dl Magnesium Level 1.8 mg/dl Total Bilirubin 0.7 mg/dl Direct Bilirubin 0.3 mg/dl Aspartate Amino Transf (AST/SGOT) 106 U/L Alanine Aminotransferase (ALT/SGPT) 112 U/L Alkaline Phosphatase 257 U/L Troponin I 0.015 ng/ml C-Reactive Protein 6.46 mg/dl Total Protein 7.3 gm/dl Albumin 2.8 gm/dl Lipase 135 U/L Thyroid Stimulating Hormone (TSH) 1.690 uIu/ml Bedside Glucose 168 mg/dl Digoxin Level 0.6 ng/ml Test 12/30/17 20:18 12/31/17 07:35 12/31/17 08:17 Bedside Glucose 145 mg/dl 126 mg/dl White Blood Count 5.51 K/uL Red Blood Count 4.49 M/uL Hemoglobin 14.3 g/dL Hematocrit 41.8 % Mean Corpuscular Volume 93.1 fL Mean Corpuscular Hemoglobin 31.8 pg Mean Corpuscular Hemoglobin Concent 34.2 g/dl RDW Standard Deviation 51.4 fL RDW Coefficient of Variation 15.2 % Platelet Count 132 K/uL Mean Platelet Volume 10.4 fL Sodium Level 133 mmol/L Potassium Level 3.9 mmol/L Chloride Level 96 mmol/L Carbon Dioxide Level 29 mmol/L Anion Gap 8.0 mmol/L Blood Urea Nitrogen 22 mg/dl Creatinine 0.91 mg/dl Est Creatinine Clear Calc Drug Dose 84.5 ml/min Estimated GFR () 98.6 Estimated GFR (Non- 85.1 BUN/Creatinine Ratio 23.8 Random Glucose 125 mg/dl Calcium Level 8.9 mg/dl Total Bilirubin 0.9 mg/dl Aspartate Amino Transf (AST/SGOT) 97 U/L Alanine Aminotransferase (ALT/SGPT) 105 U/L Alkaline Phosphatase 214 U/L Total Protein 6.8 gm/dl Albumin 2.7 gm/dl Globulin 4.1 gm/dl Albumin/Globulin Ratio 0.7 Date/Time Source Procedure Growth Status 12/30/17 19:42 Blood Blood Culture Pending Received 12/30/17 19:32 Blood Blood Culture Pending Received 12/30/17 11:30 Urine , Clean Catch Urine Culture Pending Received Assessment & Plan AMBULATORY DYSFUNCTION SECONDARY TO BILATERAL HIP PAIN/LUMBAR BACK PAIN patient reports increased lumbar spine pain and bilateral hip pain right greater than left. Pain right hip radiating to right upper leg. Denies injury or trauma. ER L-spine and bilateral hip x-rays no fractures. - MRI L-spine and hip: Moderate spinal stenosis Dr. Conde consulted, conservative management for now, appreciate recommendations -Continue fentanyl patch As needed morphine As needed oxycodone If pain uncontrolled, we will need consultation with pain medicine service -Continue physical therapy FEVER Reported fever 101F 2 nights ago and this morning relieved with aspirin. No fever noted in ER. Negative UA. Negative CXR. No leukocytosis. no N/V/D or abdominal pain. No skin discolorations that states hip and back pain. --Pending results of urine and blood culture --Patient remains afebrile, no leukocytosis-no focus of infection identified at this time [id number] -Continue gabapentin Oxycodone, fentanyl patch and morphine prn breakthrough pain DM II HA1c 8.1 on 11/13 -Hold home meds -Lantus, NovoLog sliding scale per protocol COPD Not exacerbation -Continue home inhalers -Advair, albuterol as needed HISTORY OF PAROXYSMAL ATRIAL FIBRILLATION Current sinus rhythm. Not on Coumadin secondary to bleeding in past. 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 At baseline -Monitor renal function -Avoid nephrotoxic agents when possible HISTORY OF TOBACCO ABUSE Patient quit smoking 2 months ago is currently on Chantix -Continue Chantix DVT Prophylaxis -Heparin SQ Disposition Pending May need transitioning to rehab/group home facility Follows with Dr Rodney for routine care Pt was seen with Dr Lee. See addendum Current Inpatient Medications: Current Inpatient Medications Medications (Trade) Dose Ordered Sig/Katherine Route Start Time Stop Time Status Last Admin Dose Admin Acetaminophen (Tylenol Tab) 650 mg Q4H PRN PO 12/30/17 15:45 01/29/18 15:44 Magnesium Hydroxide (Milk Of Magnesia Susp) 30 ml Q6H PRN PO 12/30/17 15:45 01/29/18 15:44 Ondansetron HCl (Zofran Inj) 4 mg Q6H PRN IV 12/30/17 15:45 01/29/18 15:44 Heparin Sodium (Porcine) (Heparin Sq 5000 Unit/0.5ml) 5,000 unit Q12H SQ 12/30/17 19:00 01/29/18 18:59 12/30/17 19:09 5,000 UNIT Albuterol (Ventolin Hfa Inhaler) 2 puffs Q6H PRN INH 12/30/17 16:00 01/29/18 15:59 Aspirin (Ecotrin Tab) 81 mg QAM PO 12/31/17 09:00 01/30/18 08:59 Digoxin (Lanoxin Tab) 0.125 mg DAILY@1600 PO 12/30/17 17:00 01/29/18 16:59 Finasteride (Proscar Tab) 5 mg QPM PO 12/30/17 21:00 01/29/18 20:59 12/30/17 22:05 5 MG Salmeterol Xinafoate/ Fluticasone (Advair Diskus 250/50 Inh) 1 puff BID INH 12/30/17 21:00 01/29/18 20:59 12/30/17 21:59 1 PUFF Furosemide (Lasix Tab) 10 mg QAM PO 12/31/17 09:00 01/30/18 08:59 Gabapentin (Neurontin Cap) 300 mg TID PO 12/30/17 21:00 01/29/18 20:59 12/30/17 22:02 300 MG Lovastatin (Mevacor Tab) 10 mg QPM PO 12/30/17 21:00 01/29/18 20:59 12/30/17 22:05 10 MG Metoprolol Tartrate (Lopressor Tab) 12.5 mg BID PO 12/30/17 21:00 01/29/18 20:59 12/30/17 22:02 12.5 MG Niacin (Niaspan Extended Rel Tab) 1,000 mg BID PO 12/30/17 21:00 01/29/18 20:59 12/30/17 22:05 1,000 MG Tamsulosin HCl (Flomax Cap) 0.4 mg QPM PO 12/30/17 21:00 01/29/18 20:59 12/30/17 22:05 0.4 MG Varenicline (Chantix) 1 mg BIDM PO 12/30/17 17:55 01/29/18 17:59 12/30/17 19:05 1 MG Cholecalciferol (Vitamin D Tab) 5,000 inter.unit QPM PO 12/30/17 21:00 01/29/18 20:59 12/30/17 22:06 5,000 INTER.UNIT Magnesium Oxide (Mag-Ox Tab) 400 mg DAILY PO 12/31/17 09:00 01/30/18 08:59 Pantoprazole Sodium (Protonix Tab) 40 mg DAILY PO 12/31/17 09:00 01/30/18 08:59 Morphine Sulfate (MoRPHine SULFATE INJ) 2 mg Q4 PRN IV 12/30/17 16:00 01/13/18 15:59 12/31/17 08:06 2 MG Insulin Glargine (Lantus Solostar Pen) 5 units Q12 SC 12/30/17 21:00 01/29/18 20:59 12/30/17 22:04 5 UNITS Insulin Aspart (novoLOG ASPART) SLIDING SCALE If C... ACHS SC 12/30/17 21:00 01/29/18 20:59 Glucose (Glucose 40% Gel) 15-30 GRAMS 15 GRAMS... UD PRN PO 12/30/17 16:15 01/29/18 16:14 Glucose (Glucose Chew Tab) 4-8 Tablets 4 Tabl... UD PRN PO 12/30/17 16:15 01/29/18 16:14 Dextrose (Dextrose 50% 50ML Syringe) 25-50ML OF 50% DW IV FOR... UD PRN IV 12/30/17 16:15 01/29/18 16:14 Glucagon (Glucagon Inj) 1 mg UD PRN SQ 12/30/17 16:15 01/29/18 16:14 Miscellaneous (Iv Fluids Completed) 1 ea PRN PRN N/A 12/30/17 16:30 12/30/18 16:29 Fentanyl (Duragesic Patch) 12 mcg Q72H TD 12/30/17 18:00 01/13/18 17:59 12/30/17 19:09 12 MCG Miscellaneous (Fentanyl Patch Remove & Waste) 1 ea Q3D@1759 N/A 01/02/18 17:59 02/01/18 17:58 Miscellaneous Information (Check Fentanyl Patch Placement) 1 ea QS N/A 12/31/17 00:00 01/30/18 00:00 12/30/17 23:58 1 EA Oxycodone HCl (Roxicodone Immediate Rel Tab) 10 mg Q4 PRN PO 12/30/17 18:45 01/13/18 18:44 12/31/17 05:38 10 MG
[2017-12-31 15:42] VITALS: BP_SYST 115; BP_DIAS 68; BP_DIAS 8; PULSE 79; TEMP 36.4; O2SAT 92
[2017-12-31] MEDS: DIGOXIN 0.125 MG TAB PO SCH (15:59)
[2017-12-31] MEDS: CHOLECALCIFEROL 1000 INTER.UNIT TAB PO SCH (21:25)
[2017-12-31] MEDS: FINASTERIDE 5 MG TAB PO SCH (21:25)
[2017-12-31] MEDS: TAMSULOSIN HCL 0.4 MG CAP PO SCH (21:26)
[2017-12-31] MEDS: LOVASTATIN 20 MG TAB PO SCH (21:26)
[2017-12-31 22:50] VITALS: BP 128/78; PULSE 74; TEMP 37.1; O2SAT 93
[2018-01-01] MEDS: HEPARIN SOD 5000 UNIT/0.5 ML CARP SQ SCH ×2 (05:45→19:00)
[2018-01-01 06:58] VITALS: BP 116/74; PULSE 73; TEMP 36.6; O2SAT 95
[2018-01-01 09:03] VITALS: BP 116/74; O2SAT 95
[2018-01-01] MEDS: CHECK FENTANYL PATCH PLACEMENT SCH ×2 (09:47→15:50)
[2018-01-01] MEDS: METOPROLOL TARTRATE 25 MG TAB PO SCH ×3 (09:49→21:37)
[2018-01-01] MEDS: NIASPAN 500 MG TABCR PO SCH ×2 (09:49→21:39)
[2018-01-01] MEDS: GABAPENTIN 300 MG CAP PO SCH ×3 (09:49→21:38)
[2018-01-01] MEDS: PANTOprazole SOD 40 MG TAB PO SCH (09:49)
[2018-01-01] MEDS: ASPIRIN 81 MG ECTAB PO SCH (09:50)
[2018-01-01] MEDS: MAGNESIUM OXIDE 400 MG TAB PO SCH (09:50)
[2018-01-01] MEDS: FLUTICASONE/SALMETEROL 250/50 (ADVAIR) 14 PUFF/1 INHALER INH SCH ×2 (09:51→21:35)
[2018-01-01] MEDS: FUROSEMIDE 20 MG TAB PO SCH (09:51)
[2018-01-01] MEDS: VARENICLINE (CHANTIX) 1 MG TAB PO SCH ×2 (09:52→19:01)
[2018-01-01] MEDS: INSULIN ASPART 100 UNITS/ML 3 ML PEN SC SCH ×4 (09:55→21:34)
[2018-01-01] MEDS: INSULIN GLARGINE SOLOSTAR 100 UNITS/ML 3 ML PEN SC SCH ×2 (09:57→21:34)
[2018-01-01 10:00] VITALS: BP 99/63; PULSE 73
[2018-01-01] MEDS: OXYCODONE HCL IR 5 MG TAB (IMMEDIATE RELEASE) PO PRN (10:07)
--- NOTE | 2018-01-01 10:53 | Progress Note ---
Progress Note Date of Service Jan 01, 2018. Progress Note Patient states he is overall improved today. Still has some pain in the buttock region but it is clearly better than yesterday. He is ambulating to the restroom with a walker without difficulty. On exam he is in the chair at the bedside. He demonstrates good strength bilateral lower extremities. He definitely appears more comfortable. Plan at this time will continue observation. I have emphasized we would very much like to avoid any surgical intervention as it would be multilevel in nature. He understands and agrees.
[2018-01-01] MEDS ORDERED: FENTANYL PATCH REMOVE & WASTE SCH (10:59)
[2018-01-01] MEDS ORDERED: FENTANYL 12 MCG/HR TDSY TD SCH (11:00)
[2018-01-01] MEDS: MoRPHine SULFATE 2 MG/ML CARP IV PRN ×2 (12:46→23:02)
[2018-01-01 15:02] VITALS: BP 106/67; PULSE 84; TEMP 36.5; O2SAT 94
[2018-01-01] MEDS: DIGOXIN 0.125 MG TAB PO SCH (15:55)
--- NOTE | 2018-01-01 17:01 | Progress Note ---
Medicine Progress Note Date & Time of Visit: Jan 01, 2018 at 16:57. Subjective Seen resting bedside chair comfortable in better spirits States he feels improved today Low back pain and hip pain resolving Has chronic pain on the shoulders and joints Denies chest pain shortness of breath palpitations nausea headache dizziness no other symptoms Objective Last 8 Hrs Date Time Temp Pulse Resp B/P (MAP) Pulse Ox O2 Delivery O2 Flow Rate FiO2 01/01/18 15:55 86 01/01/18 15:02 36.5 84 18 106/67 (80) 94 Room Air 01/01/18 10:00 73 99/63 (75) 01/01/18 09:03 95 Physical Exam: General-oriented 3 not in distress speaking sentences Head- atraumatic Eyes- anicteric Neck- supple, no JVD Lungs- clear breath sounds bilaterally, no rales no wheezes Heart- regular rhythm; no murmur, normal rate Abdomen- normal bowel sounds, soft, nontender Extremities- no pretibial edema, no calf tenderness; peripheral pulses intact Neuro- alert, oriented x 3; no gross focal motor or sensory deficit Skin- warm & dry Laboratory Results: Last 24 Hours Test 12/31/17 17:02 12/31/17 20:10 01/01/18 08:15 01/01/18 12:23 Bedside Glucose 159 mg/dl 193 mg/dl 157 mg/dl 219 mg/dl Assessment & Plan AMBULATORY DYSFUNCTION SECONDARY TO BILATERAL HIP PAIN/LUMBAR BACK PAIN patient reports increased lumbar spine pain and bilateral hip pain right greater than left. Pain right hip radiating to right upper leg. Denies injury or trauma. ER L-spine and bilateral hip x-rays no fractures. - MRI L-spine and hip: Moderate spinal stenosis Dr. Conde consulted, conservative management for now, appreciate recommendations -Pain improving -Continue fentanyl patch As needed morphine As needed oxycodone NSAIDs avoided due to having CKD stage II -Pain management consultation pending -Continue physical therapy FEVER Reported fever 101F 2 nights ago and this morning relieved with aspirin. No fever noted in ER. Negative UA. Negative CXR. No leukocytosis. no N/V/D or abdominal pain. No skin discolorations that states hip and back pain. Urine culture negative Blood cultures negative --Patient remains afebrile, no leukocytosis-no focus of infection identified at this time [id number] -Continue gabapentin Oxycodone, fentanyl patch and morphine prn breakthrough pain DM II HA1c 8.1 on 11/13 -Hold home meds -Lantus, NovoLog sliding scale per protocol COPD Not exacerbation -Continue home inhalers -Advair, albuterol as needed HISTORY OF PAROXYSMAL ATRIAL FIBRILLATION Current sinus rhythm. Not on Coumadin secondary to bleeding in past. 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 At baseline -Monitor renal function -Avoid nephrotoxic agents when possible HISTORY OF TOBACCO ABUSE Patient quit smoking 2 months ago is currently on Chantix -Continue Chantix DVT Prophylaxis -Heparin SQ Disposition Pending May need transitioning to rehab/assisted facility pending PT OT evaluation Follows with Dr Rodney for routine care Current Inpatient Medications: Current Inpatient Medications Medications (Trade) Dose Ordered Sig/Katherine Route Start Time Stop Time Status Last Admin Dose Admin Acetaminophen (Tylenol Tab) 650 mg Q4H PRN PO 12/30/17 15:45 01/29/18 15:44 12/31/17 19:57 650 MG Magnesium Hydroxide (Milk Of Magnesia Susp) 30 ml Q6H PRN PO 12/30/17 15:45 01/29/18 15:44 12/31/17 19:50 30 ML Ondansetron HCl (Zofran Inj) 4 mg Q6H PRN IV 12/30/17 15:45 01/29/18 15:44 Heparin Sodium (Porcine) (Heparin Sq 5000 Unit/0.5ml) 5,000 unit Q12H SQ 12/30/17 19:00 01/29/18 18:59 12/31/17 19:27 5,000 UNIT Albuterol (Ventolin Hfa Inhaler) 2 puffs Q6H PRN INH 12/30/17 16:00 01/29/18 15:59 Aspirin (Ecotrin Tab) 81 mg QAM PO 12/31/17 09:00 01/30/18 08:59 01/01/18 09:50 81 MG Digoxin (Lanoxin Tab) 0.125 mg DAILY@1600 PO 12/30/17 17:00 01/29/18 16:59 01/01/18 15:55 0.125 MG Finasteride (Proscar Tab) 5 mg QPM PO 12/30/17 21:00 01/29/18 20:59 12/31/17 21:25 5 MG Salmeterol Xinafoate/ Fluticasone (Advair Diskus 250/50 Inh) 1 puff BID INH 12/30/17 21:00 01/29/18 20:59 01/01/18 09:51 1 PUFF Furosemide (Lasix Tab) 10 mg QAM PO 12/31/17 09:00 01/30/18 08:59 01/01/18 09:51 10 MG Gabapentin (Neurontin Cap) 300 mg TID PO 12/30/17 21:00 01/29/18 20:59 01/01/18 13:26 300 MG Lovastatin (Mevacor Tab) 10 mg QPM PO 12/30/17 21:00 01/29/18 20:59 12/31/17 21:26 10 MG Metoprolol Tartrate (Lopressor Tab) 12.5 mg BID PO 12/30/17 21:00 01/29/18 20:59 12/31/17 21:27 12.5 MG Niacin (Niaspan Extended Rel Tab) 1,000 mg BID PO 12/30/17 21:00 01/29/18 20:59 01/01/18 09:49 1,000 MG Tamsulosin HCl (Flomax Cap) 0.4 mg QPM PO 12/30/17 21:00 01/29/18 20:59 12/31/17 21:26 0.4 MG Varenicline (Chantix) 1 mg BIDM PO 12/30/17 17:55 01/29/18 17:59 01/01/18 09:52 1 MG Cholecalciferol (Vitamin D Tab) 5,000 inter.unit QPM PO 12/30/17 21:00 01/29/18 20:59 12/31/17 21:25 5,000 INTER.UNIT Magnesium Oxide (Mag-Ox Tab) 400 mg DAILY PO 12/31/17 09:00 01/30/18 08:59 01/01/18 09:50 400 MG Pantoprazole Sodium (Protonix Tab) 40 mg DAILY PO 12/31/17 09:00 01/30/18 08:59 01/01/18 09:49 40 MG Insulin Glargine (Lantus Solostar Pen) 5 units Q12 SC 12/30/17 21:00 01/29/18 20:59 01/01/18 09:57 5 UNITS Insulin Aspart (novoLOG ASPART) SLIDING SCALE If C... ACHS SC 12/30/17 21:00 01/29/18 20:59 01/01/18 13:29 2 UNITS Glucose (Glucose 40% Gel) 15-30 GRAMS 15 GRAMS... UD PRN PO 12/30/17 16:15 01/29/18 16:14 Glucose (Glucose Chew Tab) 4-8 Tablets 4 Tabl... UD PRN PO 12/30/17 16:15 01/29/18 16:14 Dextrose (Dextrose 50% 50ML Syringe) 25-50ML OF 50% DW IV FOR... UD PRN IV 12/30/17 16:15 01/29/18 16:14 Glucagon (Glucagon Inj) 1 mg UD PRN SQ 12/30/17 16:15 01/29/18 16:14 Miscellaneous (Iv Fluids Completed) 1 ea PRN PRN N/A 12/30/17 16:30 12/30/18 16:29 Oxycodone HCl (Roxicodone Immediate Rel Tab) 10 mg Q4 PRN PO 12/30/17 18:45 01/13/18 18:44 01/01/18 10:07 10 MG Morphine Sulfate (MoRPHine SULFATE INJ) 4 mg Q4 PRN IV 12/31/17 10:45 01/13/18 15:59 01/01/18 12:46 4 MG Fentanyl (Duragesic Patch) 12 mcg Q72H TD 01/01/18 11:00 01/15/18 10:59 01/01/18 11:36 12 MCG Miscellaneous (Fentanyl Patch Remove & Waste) 1 ea Q3D N/A 01/01/18 10:59 01/31/18 10:58 Miscellaneous Information (Check Fentanyl Patch Placement) 1 ea QS N/A 01/01/18 16:00 01/31/18 15:59 01/01/18 15:50 1 EA Senna/Docusate Sodium (Senokot S Tab) 1 tab QAM PO 01/02/18 09:00 02/01/18 08:59
[2018-01-01] MEDS: TAMSULOSIN HCL 0.4 MG CAP PO SCH (21:37)
[2018-01-01] MEDS: LOVASTATIN 20 MG TAB PO SCH (21:38)
[2018-01-01] MEDS: CHOLECALCIFEROL 1000 INTER.UNIT TAB PO SCH (21:39)
[2018-01-01] MEDS: FINASTERIDE 5 MG TAB PO SCH (21:39)
[2018-01-01 22:55] VITALS: BP 120/71; PULSE 73; TEMP 36.6; O2SAT 94
[2018-01-02] VITALS (7 sets, daily range): BP systolic 105–121; BP diastolic 68–76; PULSE 78–98; TEMP 36.4–36.6; O2SAT 93–96
[2018-01-02] MEDS: HEPARIN SOD 5000 UNIT/0.5 ML CARP SQ SCH ×2 (06:23→18:23)
[2018-01-02 06:35] LABS: HEMOGLOBIN 13.3 g/dL (14.0-18.0); MEAN CORPUSCULAR HEMOGLOBIN 30.6 pg (25-34); MEAN CORPUSCULAR HGB CONC 33.3 g/dl (32-36); MEAN PLATELET VOLUME 10.4 fL (7.4-10.4); PLATELET COUNT 146 K/uL (130-400); RED CELL DISTRIBUTION WIDTH CV 15.2 % (11.5-14.5); RED CELL DISTRIBUTION WIDTH SD 51.6 fL (36.4-46.3); WHITE BLOOD COUNT 6.34 K/uL (4.8-10.8)
[2018-01-02] MEDS: CHECK FENTANYL PATCH PLACEMENT SCH ×3 (07:51→16:28)
[2018-01-02] MEDS: VARENICLINE (CHANTIX) 1 MG TAB PO SCH ×2 (08:37→16:30)
[2018-01-02] MEDS: GABAPENTIN 300 MG CAP PO SCH ×2 (08:39→13:41)
[2018-01-02] MEDS: FLUTICASONE/SALMETEROL 250/50 (ADVAIR) 14 PUFF/1 INHALER INH SCH (08:40)
[2018-01-02] MEDS: ASPIRIN 81 MG ECTAB PO SCH (08:41)
[2018-01-02] MEDS: FUROSEMIDE 20 MG TAB PO SCH (08:43)
[2018-01-02] MEDS: MAGNESIUM OXIDE 400 MG TAB PO SCH (08:44)
[2018-01-02] MEDS: NIASPAN 500 MG TABCR PO SCH (08:46)
[2018-01-02] MEDS: PANTOprazole SOD 40 MG TAB PO SCH (08:47)
[2018-01-02] MEDS: METOPROLOL TARTRATE 25 MG TAB PO SCH (08:57)
[2018-01-02] MEDS ORDERED: DOCUSATE SODIUM/SENNA 50/8.6MG TAB PO SCH (09:00)
[2018-01-02] MEDS: INSULIN ASPART 100 UNITS/ML 3 ML PEN SC SCH ×3 (09:09→18:21)
[2018-01-02] MEDS: INSULIN GLARGINE SOLOSTAR 100 UNITS/ML 3 ML PEN SC SCH (09:11)
[2018-01-02] MEDS: OXYCODONE HCL IR 5 MG TAB (IMMEDIATE RELEASE) PO PRN ×2 (10:16→16:56)
--- NOTE | 2018-01-02 10:28 | Pain Management Consultation ---
Pain Management Consultation Date of Consultation Jan 02, 2018. Reason for Consultation Right-sided hip pain Pain Location 1 - 2 - 3 - History 72-year-old male with history of Yxnqxiw-Uwikb-Alytc and persistent right hip pain starting 2 days prior to admission. He denies any trauma to the area. He states that since he had the addition of a fentanyl patch and his typical home dose of oxycodone he has had diminished pain. He notes that he has pain in almost every joint of his body. He states currently he has significant amount of right shoulder pain with any movement, though while he is talking to me he easily puts his right arm up above his head and a "hammock style" position and cradles his head with his hands. He states that he has had a long history of cervicalgia and lumbar ago and had a cervical fusion in the past by Dr. Conde. He was worked up for multifactorial multilevel lumbar spinal stenosis worst at L3-4 during this admission and surgery was deferred by Dr. Conde at this time. The patient reports that his pain over his lumbar spine is minimal and tolerable at this time. He reports that he has had recent fever and workup to date apparently has been negative. He admits that he has bilateral gluteal spasm and it feels like there is a "basketball in each buttock cheek". He does have recent history of skin ulceration over bilateral tibias and did see the wound clinic for healing purposes. He denies any other constitutional complaints, bowel or bladder incontinence, new motor weakness (patient has chronic bilateral foot drop), or falls. He does admit that he has assistance at home for activities of daily living as it has become difficult for him to move around. He admits to sleep disturbance secondary to pain as well as minor mood changes. He denies seeing rheumatology in the past and has not seen interventional pain management. He denies ever utilizing a TENS unit, massage therapy, iontophoresis. He states that his current narcotics are prescribed by his primary care physician. 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 (10) Diabetes mellitus type 2 (11) Gastroesophageal reflux disease (12) Hypertensive heart disease (13) Knee pain (14) Hypotension (15) ARF (acute renal failure) (16) Foot deformity (17) Foot drop (18) History of atrial fibrillation (19) Loss of sensation (20) History of diabetic ulcer of foot (21) Pneumonia (22) Influenza A (23) Hx of tonsillectomy (24) S/P cervical spinal fusion (25) Status post cholecystectomy Family History COPD (chronic obstructive pulmonary disease) MOTHER Uptujtu-Vhixl-Wqrka disease DAUGHTER Coronary artery disease MOTHER Family Hx Review: history personally reviewed by me Social / Work History Smoking Status: Former smoker Smokeless Tobacco Use: No Alcohol Use: none Drug Use: none Marital Status: single Housing Status: lives alone Occupation: retired Allergies Coded Allergies: Penicillins (Verified Allergy, Intermediate, RASH, 12/30/17) Unclassified Drugs (Verified Allergy, Intermediate, 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, 12/30/17) See list of potentially neurotoxic medications Acetaminophen (Verified Allergy, Unknown, to avoid due to FATTY LIVER, 01/01) Medications Current Inpatient Medications Medications (Trade) Dose Ordered Sig/Katherine Route Start Time Stop Time Status Last Admin Dose Admin Acetaminophen (Tylenol Tab) 650 mg Q4H PRN PO 12/30/17 15:45 01/29/18 15:44 12/31/17 19:57 650 MG Magnesium Hydroxide (Milk Of Magnesia Susp) 30 ml Q6H PRN PO 12/30/17 15:45 01/29/18 15:44 12/31/17 19:50 30 ML Ondansetron HCl (Zofran Inj) 4 mg Q6H PRN IV 12/30/17 15:45 01/29/18 15:44 Heparin Sodium (Porcine) (Heparin Sq 5000 Unit/0.5ml) 5,000 unit Q12H SQ 12/30/17 19:00 01/29/18 18:59 12/31/17 19:27 5,000 UNIT Albuterol (Ventolin Hfa Inhaler) 2 puffs Q6H PRN INH 12/30/17 16:00 01/29/18 15:59 Aspirin (Ecotrin Tab) 81 mg QAM PO 12/31/17 09:00 01/30/18 08:59 01/02/18 08:41 81 MG Digoxin (Lanoxin Tab) 0.125 mg DAILY@1600 PO 12/30/17 17:00 01/29/18 16:59 01/01/18 15:55 0.125 MG Finasteride (Proscar Tab) 5 mg QPM PO 12/30/17 21:00 01/29/18 20:59 01/01/18 21:39 5 MG Salmeterol Xinafoate/ Fluticasone (Advair Diskus 250/50 Inh) 1 puff BID INH 12/30/17 21:00 01/29/18 20:59 01/02/18 08:40 1 PUFF Furosemide (Lasix Tab) 10 mg QAM PO 12/31/17 09:00 01/30/18 08:59 01/02/18 08:43 10 MG Gabapentin (Neurontin Cap) 300 mg TID PO 12/30/17 21:00 01/29/18 20:59 01/02/18 08:39 300 MG Lovastatin (Mevacor Tab) 10 mg QPM PO 12/30/17 21:00 01/29/18 20:59 01/01/18 21:38 10 MG Metoprolol Tartrate (Lopressor Tab) 12.5 mg BID PO 12/30/17 21:00 01/29/18 20:59 01/02/18 08:57 12.5 MG Niacin (Niaspan Extended Rel Tab) 1,000 mg BID PO 12/30/17 21:00 01/29/18 20:59 01/02/18 08:46 1,000 MG Tamsulosin HCl (Flomax Cap) 0.4 mg QPM PO 12/30/17 21:00 01/29/18 20:59 01/01/18 21:37 0.4 MG Varenicline (Chantix) 1 mg BIDM PO 12/30/17 17:55 01/29/18 17:59 01/02/18 08:37 1 MG Cholecalciferol (Vitamin D Tab) 5,000 inter.unit QPM PO 12/30/17 21:00 01/29/18 20:59 01/01/18 21:39 5,000 INTER.UNIT Magnesium Oxide (Mag-Ox Tab) 400 mg DAILY PO 12/31/17 09:00 01/30/18 08:59 01/02/18 08:44 400 MG Pantoprazole Sodium (Protonix Tab) 40 mg DAILY PO 12/31/17 09:00 01/30/18 08:59 01/02/18 08:47 40 MG Insulin Glargine (Lantus Solostar Pen) 5 units Q12 SC 12/30/17 21:00 01/29/18 20:59 01/02/18 09:11 5 UNITS Insulin Aspart (novoLOG ASPART) SLIDING SCALE If C... ACHS SC 12/30/17 21:00 01/29/18 20:59 01/02/18 09:09 5 UNITS Glucose (Glucose 40% Gel) 15-30 GRAMS 15 GRAMS... UD PRN PO 12/30/17 16:15 01/29/18 16:14 Glucose (Glucose Chew Tab) 4-8 Tablets 4 Tabl... UD PRN PO 12/30/17 16:15 01/29/18 16:14 Dextrose (Dextrose 50% 50ML Syringe) 25-50ML OF 50% DW IV FOR... UD PRN IV 12/30/17 16:15 01/29/18 16:14 Glucagon (Glucagon Inj) 1 mg UD PRN SQ 12/30/17 16:15 01/29/18 16:14 Miscellaneous (Iv Fluids Completed) 1 ea PRN PRN N/A 12/30/17 16:30 12/30/18 16:29 Oxycodone HCl (Roxicodone Immediate Rel Tab) 10 mg Q4 PRN PO 12/30/17 18:45 01/13/18 18:44 01/01/18 10:07 10 MG Morphine Sulfate (MoRPHine SULFATE INJ) 4 mg Q4 PRN IV 12/31/17 10:45 01/13/18 15:59 01/01/18 23:02 4 MG Fentanyl (Duragesic Patch) 12 mcg Q72H TD 01/01/18 11:00 01/15/18 10:59 01/01/18 11:36 12 MCG Miscellaneous (Fentanyl Patch Remove & Waste) 1 ea Q3D N/A 01/01/18 10:59 01/31/18 10:58 Miscellaneous Information (Check Fentanyl Patch Placement) 1 ea QS N/A 01/01/18 16:00 01/31/18 15:59 01/02/18 07:51 1 EA Senna/Docusate Sodium (Senokot S Tab) 1 tab QAM PO 01/02/18 09:00 02/01/18 08:59 01/02/18 09:13 1 TAB Baclofen (Lioresal Tab) 10 mg HS PO 01/02/18 21:00 02/01/18 20:59 Lidocaine (Lidoderm Patch 5%) 1 patch QAM TD 01/03/18 09:00 02/02/18 08:59 Miscellaneous (Remove Lidoderm Patch) 1 ea DAILY@21 N/A 01/02/18 21:00 02/01/18 20:59 Review of Systems Constitutional: Negative for fever, chills, sweats currently Eyes: Negative for eye pain, photophobia, drainage Ear, nose, mouth, throat: Negative for ear pain, nasal congestion, mouth lesions , change in voice Respiratory: Negative for wheezing, sputum production Cardiovascular: Negative for chest pain, palpitations, calf pain Gastrointestinal: Negative for abdominal pain, belching, bloating Genitourinary: Negative for dysuria, urinary incontinence, urinary urgency Musculoskeletal: Positive for myofascial spasm over bilateral gluteal muscles Integumentary: Negative for nail changes, skin yellowing, pruritus Neurological: Negative for abnormal speech, seizure type activity Physical Exam Height & Weight: Height 5 feet, 6.00 inches. Weight 100.100 (Kilograms) 220 (Pounds) Last Vital Signs Documentation Date Time Temp Pulse Resp B/P (MAP) Pulse Ox O2 Delivery O2 Flow Rate FiO2 01/02/18 07:49 96 Room Air 01/02/18 07:47 36.4 90 14 111/71 (84) Exam: Constitutional: Well-developed, obese Psych: Awake, alert, and oriented 3 with normal affect and mood. Recent memory appears grossly intact Eyes: Pupils are equally round and reactive to light with normal size pupils, eyelids appear normal Ear, nose, mouth, and throat: Moist nasal and oral membranes, lips and tongues appear normal, no external ear abnormalities are noted Neck: The trachea is midline without deviation and no thyromegaly is noted Respiratory: Normal respiratory effort without distress, no audible wheezes or rhonchi CV: Normal S1 and S2, carotid upstroke is within normal limits Chest: Deferred GI/abdomen: Non-tender without guarding, no masses noted Musculoskeletal: Head is normocephalic and atraumatic, gait is not observed Cervical: Lordotic curve: Decreased with a well-healed midline surgical incision posteriorly Range of motion is decreased with extension, flexion, side- bending, rotation Tenderness: Mildly tender over the axial midline Facet provocation: Negative bilaterally Hoffmans maneuver: Negative bilaterally Step-off injuries: None Strength: Strength is grossly equal bilaterally with 5 out of 5 strength in all planes Sensation of upper extremities: Intact bilaterally Myofascial spasm: No appreciable spasm. No discrete trigger points noted Thoracic: Kyphotic curve: Normal Range of motion is normal with extension, flexion, side- bending, rotation Tenderness: Nontender over the axial midline Lumbar: Lordotic curve: Slightly decreased Range of motion is decreased with extension, flexion, side- bending, rotation Tenderness: Marginally tender over the axial midline Facet provocation: Negative bilaterally Straight leg raise: Negative bilaterally Step-off injuries: None Strength: Strength is equal bilaterally with 5 out of 5 strength in all planes with the exception of dorsiflexion bilaterally rated at 2 out of 5 Sensation of lower extremities: Slightly decreased in a nondermatomal distribution Deep tendon reflexes: Rated at 1 + in bilateral L4 and S1 Myofascial spasm: Moderate spasm noted over bilateral gluteal musculature and piriformis. No discrete trigger points noted Greater trochanters: Mildly tender bilaterally Sacroiliac joints: Moderately tender bilaterally Fabere and Gaenslens: Unable to perform secondary to body habitus Pathologic reflexes noted: None Skin: There are healing wounds over bilateral tibias Neuro: No nystagmus noted, the tongue is midline, the patient is able to rotate their head bilaterally : Deferred Laboratory Laboratory Review: results personally reviewed by ok Laboratory Results (Last CBC): 01/02/18 06:06 Imaging MRI Findings Patient: AVINASH LEE Address1: [address] [place] [address] [address] [facility] Rec: [id number] Address2: Acct ID: [id number] [facility] Zip: [place] [address] Date: 1945 Sex: M Room/Bed: Ref Phy: Mohan Perry M.D. SC: ASHLEY Att Phy: Report #: [id number] Cira Phy: Mohan Perry M.D. Test: LEJWO Admit Phy: Waiter/Waitress First Class: DANIEL Interpreting Phy: Justin Israel M.D. Diagnosis: WEAK, FEVER 101, EXTREME HIP PAIN Ordering Phy: Jaret Son MD Service Date: 12/30/17 Admit Date: 12/30/17 MNE: PWRSCRIBE CONF: DICTATED BY: Justin Israel M.D.]] CC: Jaret Son MD Pilgram, Philip A., M.D. Endcc: [~ rep ct add3]] MRI THE RIGHT HIP NO CONTRAST CLINICAL HISTORY: Back and right hip pain. Fever. COMPARISON STUDY: Conventional radiographic study dated 12/30/2017 FINDINGS: Imaging was performed in the axial coronal and oblique sagittal views. There is no pathologic adenopathy. There are no areas of marrow edema to indicate occult fracture. There is no evidence of avascular necrosis. There is edema within the quadratus femoris muscle. The findings are indicative of a myotendinous injury.. IMPRESSION: 1. No evidence of occult fracture 2. No evidence of avascular necrosis 3. Edema within the right quadratus femoris muscle, indicative of a myotendinous injury Patient: AVINASH LEE Farrah Address1: [address] [place] [address] [address] [facility] Rec: [id number] Address2: Acct ID: [id number] [facility] Zip: [place] [id number] Date: 1945 Sex: M Room/Bed: Ref Phy: Mohan Perry M.D. SC: ASHLEY Att Phy: Report #: [id number] Cira Phy: Mohan Perry M.D. Test: LSWOC Admit Phy: Waiter/Waitress First Class: DANIEL Interpreting Phy: Justin Israel M.D. Diagnosis: WEAK, FEVER 101, EXTREME HIP PAIN Ordering Phy: Jaret Son MD Service Date: 12/30/17 Admit Date: 12/30/17 MNE: PWRSCRIBE CONF: DICTATED BY: Justin Israel M.D.]] CC: Jaret Son MD Pilgram, Philip A., M.D. Endcc: [~ rep ct add3]] MRI LUMBAR SPINE W/O CONTRAST CLINICAL HISTORY: Back and bilateral hip pain. TECHNIQUE: Sagittal and axial T1, T2 and STIR images were obtained. COMPARISON STUDY: No previous studies for comparison. OBSERVATIONS: The vertebral bodies and posterior elements appear intact. There is no abnormal bony signal present to suggest a marrow replacement process. L1-2: There is a circumferential disc bulge present. There is no significant spinal stenosis. There is bilateral right greater than left foraminal narrowing. L2-3: There is a circumferential disc bulge and broad-based central disc protrusion. There is mild spinal stenosis. There is bilateral foraminal narrowing right greater than left. L3-4: There is a circumferential disc bulge. There is moderate spinal stenosis. There is severe bilateral foraminal narrowing. L4-5: There is a mild circumferential disc bulge. There is a slight triangular configuration of the thecal sac. There is mild bilateral foraminal narrowing L5-S1: There is a small central disc protrusion. There is mild spinal canal narrowing. There is facet joint arthropathy. There is bilateral foraminal narrowing. The conus medullaris and cauda equina appear normal. IMPRESSION: 1. Advanced multilevel spondylitic changes 2. Spinal stenosis, most severe at the L3-4 level. 3. Multilevel foraminal narrowing which is severe bilaterally at the L3-4 level. Radiology Findings Patient: AVINASH LEE Address1: [address] [place] [address] [address] [facility] Rec: [id number] Address2: Acct ID: [id number] [facility] Zip: [place] [id number] Date: 1945 Sex: M Room/Bed: Ref Phy: Mohan Perry M.D. SC: SAHLEY Att Phy: Report #: [id number] Cira Phy: Mohan Perry M.D. Test: HIP Admit Phy: Waiter/Waitress First Class: KAROL Interpreting Phy: Mina Buchanan MD Diagnosis: WEAK, FEVER 101, EXTREME HIP PAIN Ordering Phy: Jaret Son MD Service Date: 12/30/17 Admit Date: 12/30/17 MNE: PWRSCRIBE CONF: DICTATED BY: Mina Buchanan M.D.]] CC: Jaret Son MD Pilgram, Philip A., M.D. Endcc: [~ rep ct add3]] LEFT HIP 2 VIEWS HISTORY: bilat hip pain, no trauma COMPARISON: None. FINDINGS: There is no fracture or dislocation. Soft tissues are unremarkable. The visualized pelvic bones are intact. Cartilage spaces are maintained for age. Small marginal osteophytes at the left hip. IMPRESSION: Minor arthritic change within the left hip. No fracture or dislocation. Patient: AVINASH LEE Address1: [address] [facility] Rec: [id number] Address2: Acct ID: [id number] [facility] Zip: [place] [address] Date: 1945 Sex: M Room/Bed: Ref Phy: Mohan Perry M.D. SC: ASHLEY Att Phy: Report #: [id number] Cira Phy: Mohan Perry M.D. Test: HIP Admit Phy: Waiter/Waitress First Class: KAROL Interpreting Phy: Eric Escalera M.D. Diagnosis: WEAK, FEVER 101, EXTREME HIP PAIN Ordering Phy: Jaret Son MD Service Date: 12/30/17 Admit Date: 12/30/17 MNE: PWRSCRIBE CONF: DICTATED BY: Eric Escalera M.D.]] CC: Jaret Son MD Pilgram, Philip A., M.D. Endcc: [~ rep ct add3]] RIGHT HIP 2 VIEWS CLINICAL HISTORY: Right hip pain. FINDINGS: AP and frog-leg views of the right hip are correlated with pelvic CT dated 11/29/2017. The skeletal structures are osteopenic. No fracture is identified in the right hip. The visualized right hemipelvis appears maintained. Mild arthritic change and joint space narrowing is noted in the right hip. Sclerotic change is noted in the right sacroiliac joint. The overlying soft tissues are within normal limits. IMPRESSION: Osteopenia and mild arthritic change as above. No acute bony abnormality is seen in the right hip. Patient: AVINASH LEE Address1: [address] Med Rec: [id number] Address2: Acct ID: [id number] [facility] Zip: [place] [address] Date: 1945 Sex: M Room/Bed: Ref Phy: Mohan Perry M.D. SC: ASHLEY Abdul Phy: Report #: [id number] [facility] Phy: Mohan Perry M.D. Test: LS Admit Phy: Waiter/Waitress First Class: KAROL Interpreting Phy: Darwin Bedolla MD Diagnosis: WEAK, FEVER 101, EXTREME HIP PAIN Ordering Phy: Jaret Son MD Service Date: 12/30/17 Admit Date: 12/30/17 MNE: PWRSCRIBE CONF: DICTATED BY: Darwin Bedolla MD]] CC: Jaret Son MD Pilgram, Philip A., M.D. Endcc: [~ rep ct add3]] L-SPINE MIN 4 VIEWS ROUTINE CLINICAL HISTORY: Bilateral hip pain. No trauma. COMPARISON: Lumbar spine MRI April 20, 2013. FINDINGS: There is mild levoscoliosis of the lumbar spine. Vertebral body heights are maintained. There is no fracture or suspicious lesion. There is mild retrolisthesis of L5 on S1 which is likely due to severe facet arthrosis. There is severe multilevel disc space narrowing ossified ptosis and vacuum disc phenomenon. There is severe facet arthrosis. IMPRESSION: 1. No acute lumbar spine fracture or subluxation. 2. Severe multilevel degenerative disc disease and facet arthrosis. 3. Mild levoscoliosis of the lumbar spine and grade I anterolisthesis of L5 on S1 likely due to severe facet arthrosis. Past Records Previous Records: none available for review [place] Drug Monitoring Program Search Results: patient reviewed within database Opioid Risk Assessment Risk assessment performed, minimal risk identified Assessment 1. Eppnbdk-Uywuc-Rizmj disease 2. Right-sided hip pain 3. Left-sided shoulder pain 4. Lumbago 5. Multifactorial multilevel lumbar spinal stenosis 6. Opiate dependency Recommendations 1. I discussed with the patient that I could not sanction fentanyl patches for long-term use as he is not tried lesser pain management techniques including iontophoresis, TENS unit, Lidoderm patch, massage therapy. I do not have issue with him using fentanyl in the very short-term (2 weeks) to recover from this current flare but I do not agree with long-term utilization prior to failing all other conservative measures. 2. Recommend maintaining home dosage of oxycodone. 3. Recommend utilization of Lidoderm patch 4. Recommend utilization of baclofen 10 mg p.o. nightly and possibly as needed to minimize myofascial spasm 5. Recommend course of outpatient physical therapy. 6. Recommend possible outpatient rheumatologic evaluation. 7. There are no plans for interventional pain injections at this time, as the patient reports that his predominant pain is his chronic right shoulder pain which is already being worked up by orthopedics as an outpatient 8. Please call with any questions, will sign off at this time.
[2018-01-02] MEDS: DIGOXIN 0.125 MG TAB PO SCH (16:29)
--- NOTE | 2018-01-02 16:29 | Progress Note ---
Medicine Progress Note Date & Time of Visit: Jan 02, 2018 at 16:25. Subjective seen resting in bed, comfortable states his back pain and hip pain is well controlled ambulating with no problems, using the walker states he is much improved, ready and would like to be discharged today denies other symptoms Objective Last 8 Hrs Date Time Temp Pulse Resp B/P (MAP) Pulse Ox O2 Delivery O2 Flow Rate FiO2 01/02/18 15:08 36.5 78 18 117/70 (86) 93 Room Air 01/02/18 11:41 36.6 98 14 105/68 (80) 95 Room Air 01/02/18 09:00 121/76 (91) Physical Exam: General-oriented 3 not in distress speaking sentences Eyes- anicteric Neck- no JVD Lungs- clear breath sounds bilaterally Heart- regular rhythm; no murmur, normal rate Abdomen- normal bowel sounds, soft, nontender Extremities- no pretibial edema, no calf tenderness Neuro- alert, oriented x 3; no gross focal motor or sensory deficit Skin- warm & dry Laboratory Results: Last 24 Hours Test 01/01/18 17:02 01/01/18 20:39 01/02/18 06:06 01/02/18 07:58 Bedside Glucose 296 mg/dl 269 mg/dl 187 mg/dl White Blood Count 6.34 K/uL Red Blood Count 4.35 M/uL Hemoglobin 13.3 g/dL Hematocrit 40.0 % Mean Corpuscular Volume 92.0 fL Mean Corpuscular Hemoglobin 30.6 pg Mean Corpuscular Hemoglobin Concent 33.3 g/dl RDW Standard Deviation 51.6 fL RDW Coefficient of Variation 15.2 % Platelet Count 146 K/uL Mean Platelet Volume 10.4 fL Test 01/02/18 12:05 Bedside Glucose 243 mg/dl Assessment & Plan AMBULATORY DYSFUNCTION SECONDARY TO BILATERAL HIP PAIN/LUMBAR BACK PAIN patient reports increased lumbar spine pain and bilateral hip pain right greater than left. Pain right hip radiating to right upper leg. Denies injury or trauma. ER L-spine and bilateral hip x-rays no fractures. - MRI L-spine and hip: Moderate spinal stenosis Dr. Conde consulted, conservative management for now -Pain improved significantly - Consulted Pain Management- Dr. Pickard, recommend: short term Fentanyl patch (2 weeks) Lidoderm patch Baclofen at -Ff up with [facility] in 1-2 weeks -Continue physical therapy FEVER Reported fever 101F 2 nights ago and this morning relieved with aspirin. No fever noted in ER. Negative UA. Negative CXR. No leukocytosis. no N/V/D or abdominal pain. No skin discolorations that states hip and back pain. Urine culture negative Blood cultures negative --Patient remains afebrile, no leukocytosis-no focus of infection identified at this time [id number] -Continue gabapentin DM II HA1c 8.1 on 11/13 continue usual medications at home monitor as outpatient COPD Not exacerbation -Continue home inhalers -Advair, albuterol as needed HISTORY OF PAROXYSMAL ATRIAL FIBRILLATION Current sinus rhythm. Not on Coumadin secondary to bleeding in past. 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 At baseline -Monitor renal function -Avoid nephrotoxic agents when possible HISTORY OF TOBACCO ABUSE Patient quit smoking 2 months ago is currently on Chantix -Continue Chantix DVT Prophylaxis -Heparin SQ Disposition d/c home ff up with PCP in 3-5 days ff up with [facility] Management [facility] in 1 week Current Inpatient Medications: Current Inpatient Medications Medications (Trade) Dose Ordered Sig/Katherine Route Start Time Stop Time Status Last Admin Dose Admin Acetaminophen (Tylenol Tab) 650 mg Q4H PRN PO 12/30/17 15:45 01/29/18 15:44 12/31/17 19:57 650 MG Magnesium Hydroxide (Milk Of Magnesia Susp) 30 ml Q6H PRN PO 12/30/17 15:45 01/29/18 15:44 12/31/17 19:50 30 ML Ondansetron HCl (Zofran Inj) 4 mg Q6H PRN IV 12/30/17 15:45 01/29/18 15:44 Heparin Sodium (Porcine) (Heparin Sq 5000 Unit/0.5ml) 5,000 unit Q12H SQ 12/30/17 19:00 01/29/18 18:59 12/31/17 19:27 5,000 UNIT Albuterol (Ventolin Hfa Inhaler) 2 puffs Q6H PRN INH 12/30/17 16:00 01/29/18 15:59 Aspirin (Ecotrin Tab) 81 mg QAM PO 4/7/18 09:00 01/30/18 08:59 01/02/18 08:41 81 MG Digoxin (Lanoxin Tab) 0.125 mg DAILY@1600 PO 12/30/17 17:00 01/29/18 16:59 01/01/18 15:55 0.125 MG Finasteride (Proscar Tab) 5 mg QPM PO 12/30/17 21:00 01/29/18 20:59 01/01/18 21:39 5 MG Salmeterol Xinafoate/ Fluticasone (Advair Diskus 250/50 Inh) 1 puff BID INH 12/30/17 21:00 01/29/18 20:59 01/02/18 08:40 1 PUFF Furosemide (Lasix Tab) 10 mg QAM PO 12/31/17 09:00 01/30/18 08:59 01/02/18 08:43 10 MG Gabapentin (Neurontin Cap) 300 mg TID PO 12/30/17 21:00 01/29/18 20:59 01/02/18 13:41 300 MG Lovastatin (Mevacor Tab) 10 mg QPM PO 12/30/17 21:00 01/29/18 20:59 01/01/18 21:38 10 MG Metoprolol Tartrate (Lopressor Tab) 12.5 mg BID PO 12/30/17 21:00 01/29/18 20:59 01/02/18 08:57 12.5 MG Niacin (Niaspan Extended Rel Tab) 1,000 mg BID PO 12/30/17 21:00 01/29/18 20:59 01/02/18 08:46 1,000 MG Tamsulosin HCl (Flomax Cap) 0.4 mg QPM PO 12/30/17 21:00 01/29/18 20:59 01/01/18 21:37 0.4 MG Varenicline (Chantix) 1 mg BIDM PO 12/30/17 17:55 01/29/18 17:59 01/02/18 08:37 1 MG Cholecalciferol (Vitamin D Tab) 5,000 inter.unit QPM PO 12/30/17 21:00 01/29/18 20:59 01/01/18 21:39 5,000 INTER.UNIT Magnesium Oxide (Mag-Ox Tab) 400 mg DAILY PO 12/31/17 09:00 5/7/18 08:59 01/02/18 08:44 400 MG Pantoprazole Sodium (Protonix Tab) 40 mg DAILY PO 12/31/17 09:00 01/30/18 08:59 01/02/18 08:47 40 MG Insulin Glargine (Lantus Solostar Pen) 5 units Q12 SC 12/30/17 21:00 01/29/18 20:59 01/02/18 09:11 5 UNITS Insulin Aspart (novoLOG ASPART) SLIDING SCALE If C... ACHS SC 12/30/17 21:00 01/29/18 20:59 01/02/18 12:59 6 UNITS Glucose (Glucose 40% Gel) 15-30 GRAMS 15 GRAMS... UD PRN PO 12/30/17 16:15 01/29/18 16:14 Glucose (Glucose Chew Tab) 4-8 Tablets 4 Tabl... UD PRN PO 12/30/17 16:15 01/29/18 16:14 Dextrose (Dextrose 50% 50ML Syringe) 25-50ML OF 50% DW IV FOR... UD PRN IV 12/30/17 16:15 01/29/18 16:14 Glucagon (Glucagon Inj) 1 mg UD PRN SQ 12/30/17 16:15 01/29/18 16:14 Miscellaneous (Iv Fluids Completed) 1 ea PRN PRN N/A 12/30/17 16:30 12/30/18 16:29 Oxycodone HCl (Roxicodone Immediate Rel Tab) 10 mg Q4 PRN PO 12/30/17 18:45 01/13/18 18:44 01/02/18 10:16 10 MG Morphine Sulfate (MoRPHine SULFATE INJ) 4 mg Q4 PRN IV 12/31/17 10:45 01/13/18 15:59 01/01/18 23:02 4 MG Fentanyl (Duragesic Patch) 12 mcg Q72H TD 01/01/18 11:00 01/15/18 10:59 01/01/18 11:36 12 MCG Miscellaneous (Fentanyl Patch Remove & Waste) 1 ea Q3D N/A 01/01/18 10:59 01/31/18 10:58 Miscellaneous Information (Check Fentanyl Patch Placement) 1 ea QS N/A 01/01/18 16:00 01/31/18 15:59 01/02/18 07:51 1 EA Senna/Docusate Sodium (Senokot S Tab) 1 tab QAM PO 01/02/18 09:00 02/01/18 08:59 01/02/18 09:13 1 TAB Baclofen (Lioresal Tab) 10 mg HS PO 01/02/18 21:00 02/01/18 20:59 Lidocaine (Lidoderm Patch 5%) 1 patch QAM TD 01/03/18 09:00 02/02/18 08:59 Miscellaneous (Remove Lidoderm Patch) 1 ea DAILY@21 N/A 01/02/18 21:00 02/01/18 20:59
[2018-01-02] MEDS ORDERED: LRS10 PO (16:35)
[2018-01-02] MEDS ORDERED: DRGTP12 TD (16:35)
[2018-01-02] MEDS ORDERED: SENN8.6T7 PO (16:35)
[2018-01-02] MEDS ORDERED: LDDP5 TD (16:35)
--- NOTE | 2018-01-02 16:44 | Discharge Instructions ---
Discharge Instructions Date of Service Jan 02, 2018. Admission Reason for Admission: Ambulatory Dysfunction, Hip Pain Discharge Discharge Diagnosis / Problem: INTRACTABLE BACK PAIN Discharge Goals Goal(s): Diagnostic testing, Therapeutic intervention Activity Recommendations Activity Limitations: as noted below (RESUME ACTIVITY GRADUALLY TOLERATED. ALWAYS USE WALKER.) Lifting Limitations: until after follow-up appointment Exercise/Sports Limitations: until after follow-up appointment Driving or Machine Use: NO DRIVING WHILE USING FENTANYL PATCH AND BACLOFEN. . Instructions / Follow-Up Instructions / Follow-Up PLEASE REFER TO YOUR NEW MEDICATION LIST AND FOLLOW INSTRUCTIONS CAREFULLY. CALL YOUR PRIMARY CARE PHYSICIAN OR RETURN TO ER IMMEDIATELY IF WITH RECURRENCE OF SYMPTOMS, INCREASING BACK OR LEG PAIN, WEAKNESS/NUMBNESS/TINGLING SENSATION OF LEGS, INCONTINENCE. FOLLOW UP WITH DR. CHAPA ON WEDNESDAY JANUARY 10, 2018 AT 11:05AM. FOLLOW UP WITH PAIN MANAGEMENT CLINIC- DR. JONES OR DR. ROSS IN 1-2 WEEKS. ADDRESS:[address] [place] [address], [place] [address] TELEPHONE: Current Hospital Diet Patient's current hospital diet: AHA Diet (Heart Healthy), Diabetes Type 2 Diet Discharge Diet Recommended Diet: AHA Diet (Heart Healthy), Diabetes Type 2 Diet Procedures Procedures Performed: MRI LUMBAR SPINE Pending Studies Studies pending at discharge: no Laboratory Results Hemoglobin A1c Test 11/10/17 13:45 Range/Units Estimated Average Glucose 186 mg/dl Hemoglobin A1c 8.1 H 4.5-5.6 % Medical Emergencies . Who to Call and When: Medical Emergencies: If at any time you feel your situation is an emergency, please call 911 immediately. . Non-Emergent Contact Non-Emergency issues call your: Primary Care Provider, Specialist (PAIN MANAGEMENT CLINIC) Call Non-Emergent contact if: you have a fever, your pain is not controlled, your pain is worsening, you have any medication questions . . "Provider Documentation" section prepared by Sunday Abbott. . [place] Drug Monitoring Program Search Results: patient reviewed within database, no issues identified
--- NOTE | 2018-01-02 16:45 | Progress Note ---
Medicine Progress Note Date & Time of Visit: Jan 02, 2018 at 16:45. Subjective duplicate template Objective Last 8 Hrs Date Time Temp Pulse Resp B/P (MAP) Pulse Ox O2 Delivery O2 Flow Rate FiO2 01/02/18 16:29 78 01/02/18 15:08 36.5 78 18 117/70 (86) 93 Room Air 01/02/18 11:41 36.6 98 14 105/68 (80) 95 Room Air 01/02/18 09:00 121/76 (91) Physical Exam: General-oriented 3 not in distress speaking sentences Eyes- anicteric Neck- no JVD Lungs- clear breath sounds bilaterally Heart- regular rhythm; no murmur, normal rate Abdomen- normal bowel sounds, soft, nontender Extremities- no pretibial edema, no calf tenderness Neuro- alert, oriented x 3; no gross focal motor or sensory deficit Skin- warm & dry Laboratory Results: Last 24 Hours Test 01/01/18 17:02 01/01/18 20:39 01/02/18 06:06 01/02/18 07:58 Bedside Glucose 296 mg/dl 269 mg/dl 187 mg/dl White Blood Count 6.34 K/uL Red Blood Count 4.35 M/uL Hemoglobin 13.3 g/dL Hematocrit 40.0 % Mean Corpuscular Volume 92.0 fL Mean Corpuscular Hemoglobin 30.6 pg Mean Corpuscular Hemoglobin Concent 33.3 g/dl RDW Standard Deviation 51.6 fL RDW Coefficient of Variation 15.2 % Platelet Count 146 K/uL Mean Platelet Volume 10.4 fL Test 01/02/18 12:05 Bedside Glucose 243 mg/dl Assessment & Plan AMBULATORY DYSFUNCTION SECONDARY TO BILATERAL HIP PAIN/LUMBAR BACK PAIN patient reports increased lumbar spine pain and bilateral hip pain right greater than left. Pain right hip radiating to right upper leg. Denies injury or trauma. ER L-spine and bilateral hip x-rays no fractures. - MRI L-spine and hip: Moderate spinal stenosis Dr. Conde consulted, conservative management for now -Pain improved significantly - Consulted Pain Management- Dr. Pickard, recommend: short term Fentanyl patch (2 weeks) Lidoderm patch Baclofen at HS -Ff up with [facility] Management Clinic in 1-2 weeks -Continue physical therapy FEVER Reported fever 101F 2 nights ago and this morning relieved with aspirin. No fever noted in ER. Negative UA. Negative CXR. No leukocytosis. no N/V/D or abdominal pain. No skin discolorations that states hip and back pain. Urine culture negative Blood cultures negative --Patient remains afebrile, no leukocytosis-no focus of infection identified at this time [id number] -Continue gabapentin DM II HA1c 8.1 on 11/13 continue usual medications at home monitor as outpatient COPD Not exacerbation -Continue home inhalers -Advair, albuterol as needed HISTORY OF PAROXYSMAL ATRIAL FIBRILLATION Current sinus rhythm. Not on Coumadin secondary to bleeding in past. 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 At baseline -Monitor renal function -Avoid nephrotoxic agents when possible HISTORY OF TOBACCO ABUSE Patient quit smoking 2 months ago is currently on Chantix -Continue Chantix DVT Prophylaxis -Heparin SQ Disposition d/c home ff up with PCP in 3-5 days ff up with [facility] in 1 week Current Inpatient Medications: Current Inpatient Medications Medications (Trade) Dose Ordered Sig/Katherine Route Start Time Stop Time Status Last Admin Dose Admin Acetaminophen (Tylenol Tab) 650 mg Q4H PRN PO 12/30/17 15:45 01/29/18 15:44 12/31/17 19:57 650 MG Magnesium Hydroxide (Milk Of Magnesia Susp) 30 ml Q6H PRN PO 12/30/17 15:45 01/29/18 15:44 12/31/17 19:50 30 ML Ondansetron HCl (Zofran Inj) 4 mg Q6H PRN IV 12/30/17 15:45 01/29/18 15:44 Heparin Sodium (Porcine) (Heparin Sq 5000 Unit/0.5ml) 5,000 unit Q12H SQ 12/30/17 19:00 01/29/18 18:59 12/31/17 19:27 5,000 UNIT Albuterol (Ventolin Hfa Inhaler) 2 puffs Q6H PRN INH 12/30/17 16:00 01/29/18 15:59 Aspirin (Ecotrin Tab) 81 mg QAM PO 12/31/17 09:00 01/30/18 08:59 01/02/18 08:41 81 MG Digoxin (Lanoxin Tab) 0.125 mg DAILY@1600 PO 12/30/17 17:00 01/29/18 16:59 01/02/18 16:29 0.125 MG Finasteride (Proscar Tab) 5 mg QPM PO 12/30/17 21:00 01/29/18 20:59 01/01/18 21:39 5 MG Salmeterol Xinafoate/ Fluticasone (Advair Diskus 250/50 Inh) 1 puff BID INH 12/30/17 21:00 01/29/18 20:59 01/02/18 08:40 1 PUFF Furosemide (Lasix Tab) 10 mg QAM PO 12/31/17 09:00 01/30/18 08:59 01/02/18 08:43 10 MG Gabapentin (Neurontin Cap) 300 mg TID PO 12/30/17 21:00 01/29/18 20:59 01/02/18 13:41 300 MG Lovastatin (Mevacor Tab) 10 mg QPM PO 12/30/17 21:00 01/29/18 20:59 01/01/18 21:38 10 MG Metoprolol Tartrate (Lopressor Tab) 12.5 mg BID PO 12/30/17 21:00 01/29/18 20:59 01/02/18 08:57 12.5 MG Niacin (Niaspan Extended Rel Tab) 1,000 mg BID PO 12/30/17 21:00 01/29/18 20:59 01/02/18 08:46 1,000 MG Tamsulosin HCl (Flomax Cap) 0.4 mg QPM PO 12/30/17 21:00 01/29/18 20:59 01/01/18 21:37 0.4 MG Varenicline (Chantix) 1 mg BIDM PO 12/30/17 17:55 01/29/18 17:59 01/02/18 16:30 1 MG Cholecalciferol (Vitamin D Tab) 5,000 inter.unit QPM PO 12/30/17 21:00 01/29/18 20:59 01/01/18 21:39 5,000 INTER.UNIT Magnesium Oxide (Mag-Ox Tab) 400 mg DAILY PO 12/31/17 09:00 01/30/18 08:59 01/02/18 08:44 400 MG Pantoprazole Sodium (Protonix Tab) 40 mg DAILY PO 12/31/17 09:00 01/30/18 08:59 01/02/18 08:47 40 MG Insulin Glargine (Lantus Solostar Pen) 5 units Q12 SC 12/30/17 21:00 01/29/18 20:59 01/02/18 09:11 5 UNITS Insulin Aspart (novoLOG ASPART) SLIDING SCALE If C... ACHS SC 12/30/17 21:00 01/29/18 20:59 01/02/18 12:59 6 UNITS Glucose (Glucose 40% Gel) 15-30 GRAMS 15 GRAMS... UD PRN PO 12/30/17 16:15 01/29/18 16:14 Glucose (Glucose Chew Tab) 4-8 Tablets 4 Tabl... UD PRN PO 12/30/17 16:15 01/29/18 16:14 Dextrose (Dextrose 50% 50ML Syringe) 25-50ML OF 50% DW IV FOR... UD PRN IV 12/30/17 16:15 01/29/18 16:14 Glucagon (Glucagon Inj) 1 mg UD PRN SQ 12/30/17 16:15 01/29/18 16:14 Miscellaneous (Iv Fluids Completed) 1 ea PRN PRN N/A 12/30/17 16:30 12/30/18 16:29 Oxycodone HCl (Roxicodone Immediate Rel Tab) 10 mg Q4 PRN PO 12/30/17 18:45 01/13/18 18:44 01/02/18 10:16 10 MG Morphine Sulfate (MoRPHine SULFATE INJ) 4 mg Q4 PRN IV 12/31/17 10:45 01/13/18 15:59 01/01/18 23:02 4 MG Fentanyl (Duragesic Patch) 12 mcg Q72H TD 01/01/18 11:00 01/15/18 10:59 01/01/18 11:36 12 MCG Miscellaneous (Fentanyl Patch Remove & Waste) 1 ea Q3D N/A 01/01/18 10:59 01/31/18 10:58 Miscellaneous Information (Check Fentanyl Patch Placement) 1 ea QS N/A 01/01/18 16:00 01/31/18 15:59 01/02/18 16:28 1 EA Senna/Docusate Sodium (Senokot S Tab) 1 tab QAM PO 01/02/18 09:00 02/01/18 08:59 01/02/18 09:13 1 TAB Baclofen (Lioresal Tab) 10 mg HS PO 01/02/18 21:00 02/01/18 20:59 Lidocaine (Lidoderm Patch 5%) 1 patch QAM TD 01/03/18 09:00 02/02/18 08:59 Miscellaneous (Remove Lidoderm Patch) 1 ea DAILY@21 N/A 01/02/18 21:00 02/01/18 20:59
[2018-01-02] MEDS ORDERED: FENTANYL PATCH REMOVE & WASTE SCH (17:59)
[2018-01-02] MEDS ORDERED: BACLOFEN 10 MG TAB PO SCH (21:00)
[2018-01-03] MEDS ORDERED: LIDODERM (LIDOCAINE) PATCH 5% TD SCH (09:00)
--- NOTE | 2018-01-03 15:18 | Discharge Summary ---
Discharge Summary Date of Service Jan 03, 2018. Discharge Summary Admission Date: Dec 30, 2017 at 15:54 Discharge Date: Jan 02, 2018 Discharge Disposition: Home Principal Diagnosis: AMBULATORY DYSFUNCTION SECONDARY TO BILATERAL HIP PAIN/LUMBAR BACK PAIN Secondary Diagnoses/Problems: Please refer to hospital course below. Procedures: MRI LUMBAR SPINE W/O CONTRAST CLINICAL HISTORY: Back and bilateral hip pain. TECHNIQUE: Sagittal and axial T1, T2 and STIR images were obtained. COMPARISON STUDY: No previous studies for comparison. OBSERVATIONS: The vertebral bodies and posterior elements appear intact. There is no abnormal bony signal present to suggest a marrow replacement process. L1-2: There is a circumferential disc bulge present. There is no significant spinal stenosis. There is bilateral right greater than left foraminal narrowing. L2-3: There is a circumferential disc bulge and broad-based central disc protrusion. There is mild spinal stenosis. There is bilateral foraminal narrowing right greater than left. L3-4: There is a circumferential disc bulge. There is moderate spinal stenosis. There is severe bilateral foraminal narrowing. L4-5: There is a mild circumferential disc bulge. There is a slight triangular configuration of the thecal sac. There is mild bilateral foraminal narrowing L5-S1: There is a small central disc protrusion. There is mild spinal canal narrowing. There is facet joint arthropathy. There is bilateral foraminal narrowing. The conus medullaris and cauda equina appear normal. IMPRESSION: 1. Advanced multilevel spondylitic changes 2. Spinal stenosis, most severe at the L3-4 level. 3. Multilevel foraminal narrowing which is severe bilaterally at the L3-4 level. Electronically signed by: Justin Israel M.D. 12/30/2017 5:02 PM MRI THE RIGHT HIP NO CONTRAST CLINICAL HISTORY: Back and right hip pain. Fever. COMPARISON STUDY: Conventional radiographic study dated 12/30/2017 FINDINGS: Imaging was performed in the axial coronal and oblique sagittal views. There is no pathologic adenopathy. There are no areas of marrow edema to indicate occult fracture. There is no evidence of avascular necrosis. There is edema within the quadratus femoris muscle. The findings are indicative of a myotendinous injury.. IMPRESSION: 1. No evidence of occult fracture 2. No evidence of avascular necrosis 3. Edema within the right quadratus femoris muscle, indicative of a myotendinous injury Electronically signed by: Justin Israel M.D. 12/30/2017 4:56 PM Consultations: Ortho Dr. Conde, Pain Management Dr. Jones Pending Studies/Follow-Up: Please refer to hospital course below. Medication Reconciliation New Medications: Baclofen (Baclofen) 10 Mg Tab 10 MG PO HS for 10 Days, #10 TAB 0 Refills no driving while taking Baclofen Fentanyl (Fentanyl) 12 Mcg Tdsy 12 MCG TD Q72H for 7 Days, #3 PATCH 0 Refills Lidocaine (Lidocaine) 1 Patch Tdsy 1 PATCH TD QAM for 10 Days, #10 PATCH 0 Refills Sennosides-Docusate Sodium (Senokot S) 1 Tab Tab 1 TAB PO QAM for 10 Days, #10 TAB 1 Refill Continued Medications: Albuterol Hfa (Ventolin Hfa) 200 Puffs/87483 Mcg Aers 2 PUFFS INH Q6H PRN for SOB/Wheezing, #1 INHALER Aspirin (Aspirin Ec) 81 Mg Tab 81 MG PO QAM B Complex W/ C (Vitamin B Complex-C) 1 Cap Cap 1 CAP PO QAM Calcium Ascorbate (Vitamin C) 500 Mg Tab 1 TAB PO DAILY Canagliflozin (Invokana) 100 Mg Tab 100 MG PO DAILY Cholecalciferol (Vitamin D3 Ultra Strength) 5,000 Unit Cap 5000 UNITS PO QPM Digoxin (Digoxin) 0.125 Mg Tab 0.125 MG PO DAILY Finasteride (Proscar) 5 Mg Tab 5 MG PO QPM, TAB Fluticasone Prop/Salmeterol (Advair Diskus 250/50 60 Dose) 1 Ea Aerp 1 PUFF INH BID Furosemide (Furosemide) 20 Mg Tab 10 MG PO QAM Gabapentin (Neurontin) 300 Mg Cap 300 MG PO TID Glimepiride (Glimepiride) 4 Mg Tab 4 MG PO QAM Lovastatin (Mevacor) 10 Mg Tab 10 MG PO QPM, TAB Magnesium Oxide (Mg Supplement (Magnesium) 500 Mg Cap 500 MG PO DAILY Melatonin (Melatonin Maximum Strengt) 5 Mg Tab 5 MG PO HS for 30 Days, #30 TAB 1 Refill Metformin Hcl (Glucophage) 1,000 Mg Tab 1000 MG PO BID, TAB Metoprolol Tartrate (Lopressor) (Lopressor) 25 Mg Tab 12.5 MG PO BID, TAB Multivitamin (Multivitamin) Tab 1 TAB PO DAILY, TAB Niacin Ext Rel (Niaspan Ext Rel) 1,000 Mg Tabcr 1000 MG PO BID Omeprazole (Prilosec) 40 Mg Cap 40 MG PO DAILY, CAP Oxycodone Hcl (Oxycodone Hcl) 10 Mg Tab 10 MG PO Q6H PRN for Pain for 30 Days, #120 TAB Tamsulosin Hcl (Flomax) 0.4 Mg Cap 0.4 MG PO QPM, CAP Varenicline (Chantix) 1 Mg Tab 1 MG PO BID Admission Information HPI (per Admitting provider): Pt is 72 y/o M with PMH Nuqjtdf-Rgjkr-Qdhmb, DM II, WAGNER, CKD II, COPD, paroxysmal atrial fibrillation, hyperlipidemia, GERD, presented to ER with complaint of hip pain. Patient states some chronic low back pain however past couple of days been having bilateral hip pain. Right hip greater than left. Patient complains of pain in right buttock right lateral hip pain radiates right posterior leg to knee. He has been taking his oxycodone without relief. This morning took 20 mg without relief. Was on Celebrex in the past however that was discontinued secondary to CKD. History neuropathy denies any increased paresthesias. Chronic joint pain from Tpvxmrp-Yuezv-Boqzr and difficulty ambulating. Patient uses electric wheelchair and uses cane. Patient states 2 days ago had extreme lower extremity weakness and was on unable to get off the toilet. Patient and daughter concerned with patient's increased trouble with ambulation and completing daily tasks. Patient has home caregiver and home 8 hours a day to assist with ADLs. Patient denies any falls or head injury. Patient states 2 evenings ago had a temperature 101 F he took aspirin and fever resolved. States this morning had temperature 101F again took aspirin. Patient denies any noted erythema or rashes to hips or back. History of chronic wound to lower extremity and passive follow-up with wound clinic, wound has since closed and patient continues to wear tube socks. Patient history neck degenerative changes & surgery done by Dr. Conde in the past. Denies diaphoresis, N/V/D/C, TELLO, dizziness, syncope, vision changes, CP, SOB, orthopnea, palpitations, cough, sore throat, choking, otalgia, rhinorrhea, abdominal pain, extremity edema, urinary symptoms. Denies history surgery to L- spine or hips. Denies recent injury or trauma. Patient was seen in ER on 12/28/17 for lower extremity weakness and discharged home. Patient has history of admission 11/2017 hypertension secondary to dehydration versus BP meds. Hospitalization 10/2017 for influenza A and pneumonia. Physical Exam (per Admitting): General Appearance: no apparent distress, + obese Head: normocephalic, atraumatic Eyes: normal inspection, sclerae normal ENT: hearing grossly normal, pharynx normal, + pertinent finding (Mucous membranes moist) Neck: supple, trachea midline Respiratory/Chest: lungs clear, normal breath sounds, no respiratory distress Cardiovascular: regular rate, rhythm, + systolic murmur Abdomen/GI: normal bowel sounds, non tender, soft Back: no CVA tenderness, + pertinent finding (Tenderness lower lumbar region bilaterally. No rashes or discolorations to the skin noted. Limited range of motion secondary to tenderness.) Extremities/Musculoskelatal: no calf tenderness, non-tender, + pedal edema ( Mild), + pertinent finding (Active flexion bilateral hip reproduces pain to the posterior hips and buttocks. Active internal rotation bilateral hips with tenderness. Active external rotation bilateral hips without tenderness. Bilateral straight leg raise to approximately 45 tenderness. Left anterior lower leg with patches of erythema and dry skin no open areas no red streaking.) Neurologic/Psych: alert, normal mood/affect, oriented x 3 Skin: warm/dry Hospital Course AMBULATORY DYSFUNCTION SECONDARY TO BILATERAL HIP PAIN/LUMBAR BACK PAIN patient reports increased lumbar spine pain and bilateral hip pain right greater than left. Pain right hip radiating to right upper leg. Denies injury or trauma. ER L-spine and bilateral hip x-rays no fractures. - MRI L-spine and hip: Moderate spinal stenosis Dr. Conde consulted, conservative management for now -Pain improved significantly - Consulted Pain Management- Dr. Jones, recommend: short term Fentanyl patch (2 weeks) Lidoderm patch Baclofen at -Ff up with Pain Management Clinic in 1-2 weeks -Continue physical therapy FEVER Reported fever 101F 2 nights ago and this morning relieved with aspirin. No fever noted in ER. Negative UA. Negative CXR. No leukocytosis. no N/V/D or abdominal pain. No skin discolorations that states hip and back pain. Urine culture negative Blood cultures negative --Patient remains afebrile, no leukocytosis-no focus of infection identified at this time [id number] -Continue gabapentin DM II HA1c 8.1 on 11/13 continue usual medications at home monitor as outpatient COPD Not exacerbation -Continue home inhalers -Advair, albuterol as needed HISTORY OF PAROXYSMAL ATRIAL FIBRILLATION Current sinus rhythm. Not on Coumadin secondary to bleeding in past. 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 At baseline -Monitor renal function -Avoid nephrotoxic agents when possible HISTORY OF TOBACCO ABUSE Patient quit smoking 2 months ago is currently on Chantix -Continue Chantix DVT Prophylaxis -Heparin SQ Disposition d/c home ff up with PCP in 3-5 days ff up with Pain Management Clinic in 1 week Total time spent on discharge = This includes examination of the patient, discharge planning, medication reconciliation, and communication with other providers. Discharge Instructions Discharge Instructions Date of Service Jan 02, 2018. Admission Reason for Admission: Ambulatory Dysfunction, Hip Pain Discharge Discharge Diagnosis / Problem: INTRACTABLE BACK PAIN Discharge Goals Goal(s): Diagnostic testing, Therapeutic intervention Activity Recommendations Activity Limitations: as noted below (RESUME ACTIVITY GRADUALLY TOLERATED. ALWAYS USE WALKER.) Lifting Limitations: until after follow-up appointment Exercise/Sports Limitations: until after follow-up appointment Driving or Machine Use: NO DRIVING WHILE USING FENTANYL PATCH AND BACLOFEN. . Instructions / Follow-Up Instructions / Follow-Up PLEASE REFER TO YOUR NEW MEDICATION LIST AND FOLLOW INSTRUCTIONS CAREFULLY. CALL YOUR PRIMARY CARE PHYSICIAN OR RETURN TO ER IMMEDIATELY IF WITH RECURRENCE OF SYMPTOMS, INCREASING BACK OR LEG PAIN, WEAKNESS/NUMBNESS/TINGLING SENSATION OF LEGS, INCONTINENCE. FOLLOW UP WITH DR. CHAPA ON WEDNESDAY JANUARY 10, 2018 AT 11:05AM. FOLLOW UP WITH PAIN MANAGEMENT CLINIC- DR. JONES OR DR. ROSS IN 1-2 WEEKS. ADDRESS:[address] [place] [address], [place] [address] TELEPHONE: Current Hospital Diet Patient's current hospital diet: AHA Diet (Heart Healthy), Diabetes Type 2 Diet Discharge Diet Recommended Diet: AHA Diet (Heart Healthy), Diabetes Type 2 Diet Procedures Procedures Performed: MRI LUMBAR SPINE Pending Studies Studies pending at discharge: no Laboratory Results Hemoglobin A1c Test 11/10/17 13:45 Range/Units Estimated Average Glucose 186 mg/dl Hemoglobin A1c 8.1 H 4.5-5.6 % Medical Emergencies . Who to Call and When: Medical Emergencies: If at any time you feel your situation is an emergency, please call 911 immediately. . Non-Emergent Contact Non-Emergency issues call your: Primary Care Provider, Specialist (PAIN MANAGEMENT CLINIC) Call Non-Emergent contact if: you have a fever, your pain is not controlled, your pain is worsening, you have any medication questions . . "Provider Documentation" section prepared by Sunday Abbott. . [place] Drug Monitoring Program Search Results: patient reviewed within database, no issues identified <Electronically signed by Sunday Abbott MD> Signed: 01/02/18 1644 Signed: The status of this report is Signed * If report status is Draft, the document has not been finalized by the responsible provider.
== END 2018-01-02 18:37 | disposition home health service (06) ==
LOC: C.EDB 11:12 → UNDOADMOB 15:54 → C.MSN 15:54 → EDBEDREQ 15:59 → ENRESERV 16:06
PROVIDERS: ADMIT Family Medicine; ATTEND Internal Medicine
DX: R26.2 Difficulty in walking, not elsewhere classified (principal); M48.061 Spinal stenosis, lumbar region without neurogenic claudication; M25.551 Pain in right hip; M25.511 Pain in right shoulder; M51.36 Other intervertebral disc degeneration, lumbar region; G60.0 Hereditary motor and sensory neuropathy; J44.9 Chronic obstructive pulmonary disease, unspecified; E11.9 Type 2 diabetes mellitus without complications; K21.9 Gastro-esophageal reflux disease without esophagitis; I48.0 Paroxysmal atrial fibrillation; E78.5 Hyperlipidemia, unspecified; I11.9 Hypertensive heart disease without heart failure; Z87.01 Personal history of pneumonia (recurrent); Z90.89 Acquired absence of other organs; Z98.1 Arthrodesis status; Z90.49 Acquired absence of other specified parts of digestive tract; Z83.6 Family history of other diseases of the respiratory system; Z82.0 Family history of epilepsy and other diseases of the nervous system; Z82.49 Family history of ischemic heart disease and other diseases of the circulatory system; Z87.891 Personal history of nicotine dependence; Z79.82 Long term (current) use of aspirin; Z79.84 Long term (current) use of oral hypoglycemic drugs; Z88.0 Allergy status to penicillin; N18.2 Chronic kidney disease, stage 2 (mild)

== ENCOUNTER 2018-04-28 21:21 | Observation (INO) | payer OTHER ==
[~2018-04-28] VITALS: Ht 167.6 cm; Wt 107.0 kg
[~2018-04-28 21:21] MED LIST changes: +ASCO100061 PO; -ASCOGRA PO; -B COCAP3 PO; +B-COTAB18 PO; +BACL10TA PO; -CANA1TAB PO; -CHN/1 PO; -CHOL500015 PO; +CHOLCAP5 PO; +CLB/200 PO; +EMPA1TAB PO; +FINA5TAB PO; -FINA5TAB4 PO; +FNTTP25 TD; -LOVA10TA2 PO; +LOVA10TA3 PO; -LSX20 PO; +NALO1TAB2 PO; +OMEP40CA41 PO; -OXYC-164 PO; +OXYC-90 PO; -RANI150T3 PO; +RANI150T85 PO; +SENN-91 PO; -TAMS0.4C38 PO
[2018-04-28] MEDS ORDERED: ONDANSETRON INJ 2 MG/ML 2 ML VIAL IV STA (21:28)
[2018-04-28] MEDS ORDERED: MoRPHine SULFATE 4 MG/ML 1 ML CARP\\VIAL IV STA (21:28)
[2018-04-28 21:52] LABS: BASO % 0.4 %; BASO ABS # 0.04 K/uL (0-0.2); EOS % 1.4 %; EOS ABS # 0.15 K/uL (0-0.5); HEMOGLOBIN 14.1 g/dL (14.0-18.0); IG# 0.05 K/uL (0.00-0.02); LYMPH % 22.6 %; LYMPH ABS # 2.39 K/uL (1.2-3.4); MEAN CELL VOLUME 91.5 fL (80-100); MEAN CORPUSCULAR HGB CONC 32.8 g/dl (32-36); MEAN PLATELET VOLUME 11.2 fL (7.4-10.4); MONO % 7.3 %; MONO ABS # 0.77 K/uL (0.11-0.59); NEUT % 67.8 %; NEUT ABS # 7.17 K/uL (1.4-6.5); PLATELET COUNT 180 K/uL (130-400); RED CELL DISTRIBUTION WIDTH CV 15.6 % (11.5-14.5); RED CELL DISTRIBUTION WIDTH SD 52.6 fL (36.4-46.3); WHITE BLOOD COUNT 10.57 K/uL (4.8-10.8)
--- NOTE | 2018-04-28 22:02 | DIAGNOSTIC IMAGING REPORT ---
CHEST ONE VIEW PORTABLE CLINICAL HISTORY: CHEST PAIN dyspnea COMPARISON STUDY: 03/23/2018 FINDINGS: Mild accentuation basal lung markings. Mid and upper lungs are clear. Diaphragms smooth. IMPRESSION: Mild basilar bronchitis. The above report was generated using voice recognition software. It may contain grammatical, syntax or spelling errors. Electronically signed by: Derik Nelson M.D. 04/28/2018 10:01 PM Dictated Date/Time: 04/28/2018 10:01 PM
--- NOTE | 2018-04-28 22:04 | DIAGNOSTIC IMAGING REPORT ---
L SHOULDER MIN 2 VIEWS ROUTINE CLINICAL HISTORY: left shoulder pain pain COMPARISON: None. DISCUSSION: Secondary evidence for rotator cuff tear. Narrowing of the left acromiohumeral space. Findings of calcific synovitis and/or tendinitis. There is no evidence for fracture. There is no evidence for soft tissue swelling. IMPRESSION: 1. Secondary evidence for rotator cuff tear. 2. Moderate degenerative change. 3. Calcific synovitis and/or tendinitis. 4. No evidence for fracture. The above report was generated using voice recognition software. It may contain grammatical, syntax or spelling errors. Electronically signed by: Derik Nelson M.D. 04/28/2018 10:03 PM Dictated Date/Time: 04/28/2018 10:02 PM
[2018-04-28 22:05] LABS: PTT PATIENT 29.5 SECONDS (21.0-31.0)
[2018-04-28] MEDS ORDERED: HYDROmorphone INJ 1 MG/ML SYR IV STA (22:10)
[2018-04-28 22:25] LABS: CALCIUM 9.4 mg/dl (8.5-10.1); CKMB 3.5 ng/ml (0.5-3.6); CREATININE 0.97 mg/dl (0.60-1.40); POTASSIUM 4.2 mmol/L (3.5-5.1)
--- NOTE | 2018-04-28 22:32 | EMERGENCY ROOM VISIT NOTE ---
History First contact with patient: 21:21 Chief Complaint: SHOULDER PAIN Stated Complaint: L SHOULDER PAIN History of Present Illness History is obtained from the patient as well as the paramedics and the daughter who arrived The patient is a 73 year old male who presents to the Emergency Room with complaints of left shoulder pain. It started this evening. He does have a history of arthritis. It started on top of the shoulder now moves into his chest. It hurts a little bit with movement but mostly with breathing. He has had no fall or trauma. No not new numbness weakness no fever or chills. No cough. No recent illness. No lower extremity pain or swelling beyond his baseline. No headache neck pain or stiffness. Review of Systems As above. All other systems reviewed were negative unless otherwise stated in history. At least 10 were reviewed Past Medical/Surgical History Medical Problems: (1) Afib (2) Ambulatory dysfunction (3) ARF (acute renal failure) (4) Arthritis (5) Benign hypertension (6) Vpnuegc-Qkefo-Lckez disease (7) Chest pain (8) CMT (Dhnlyek-Nnyty-Xhhgf disease) (9) COPD (chronic obstructive pulmonary disease) (10) Diabetes mellitus type 2 (11) Foot deformity (12) Foot drop (13) Gastroesophageal reflux disease (14) Gout (15) Hip pain (16) History of atrial fibrillation (17) History of diabetic ulcer of foot (18) Hyperlipidemia (19) Hypertensive heart disease (20) Hypotension (21) Influenza A (22) Loss of sensation (23) Pneumonia (24) Tobacco user Surgical Problems: (1) Hx of tonsillectomy (2) S/P cervical spinal fusion (3) Status post cholecystectomy Old medical records were reviewed. Nurse's notes were reviewed and I agree with. Family History COPD (chronic obstructive pulmonary disease) MOTHER Owjxqhm-Kttem-Ixxko disease DAUGHTER Coronary artery disease MOTHER Noncontributory Social History Smoking Status: Former Smoker Alcohol Use: none Drug Use: none Marital Status: Housing Status: lives with family Occupation Status: retired Current/Historical Medications Scheduled Ascorbic Acid (Ascorbic Acid), 1,000 MG PO QAM Aspirin (Aspirin Ec), 81 MG PO QAM B-Complex Vitamins (Vitamin B Complex), 1 TAB PO QPM Baclofen (Lioresal), 10 MG PO HS Cholecalciferol (Vitamin D3), 5,000 UNITS PO QPM Digoxin (Digoxin), 0.125 MG PO QAM Empagliflozin (Jardiance), 10 MG PO QAM Fentanyl (Fentanyl), 25 MCG TD Q72H Finasteride (Proscar), 5 MG PO QPM Fluticasone Prop/Salmeterol (Advair Diskus 250/50 60 Dose), 1 PUFFS INH BID Gabapentin (Neurontin), 300 MG PO TID Glimepiride (Glimepiride), 2 TAB PO DAILY Lovastatin (Mevacor), 10 MG PO HS Magnesium Oxide (Mg Supplement (Magnesium), 500 MG PO BID Melatonin (Melatonin Maximum Strengt), 5 MG PO HS Metformin Hcl (Glucophage), 1,000 MG PO BIDM Metoprolol Tartrate (Lopressor) (Lopressor), 12.5 MG PO BID Multivitamin (Multivitamin), 1 TAB PO DAILY Niacin Ext Rel (Niaspan Ext Rel), 1,000 MG PO BID Omeprazole (Prilosec), 40 MG PO QAM Sennosides-Docusate Sodium (Senna S), 1 TAB PO QAM Scheduled PRN Albuterol Hfa (Ventolin Hfa), 2 PUFFS INH Q6H PRN for SOB/Wheezing Celecoxib (CeleBREX), 200 MG PO DAILY PRN for Pain Naloxegol Oxalate (Movantik), 25 MG PO DAILY PRN for Constipation Oxycodone Ir (Roxicodone Ir), 10 MG PO Q6H PRN for Pain Ranitidine (Zantac), 150 MG PO BID PRN for GI Upset Allergies Coded Allergies: Penicillins (Verified Allergy, Intermediate, RASH, 12/30/17) Physical Exam Vital Signs Date Time Temp Pulse Resp B/P (MAP) Pulse Ox O2 Delivery O2 Flow Rate FiO2 04/28/18 23:10 88 15 149/77 94 Room Air 04/28/18 21:39 76 04/28/18 21:25 37.1 79 12 164/87 94 Room Air Physical Exam General: Well developed well nourished uncomfortable appearing older male who appears in pain secondary left shoulder pain but in no acute respiratory distress, breathing comfortably on room air. Normal speech HEENT: Normal cephalic atraumatic. Pupils are equal round and reactive to light. Sclerae anicteric. Extraocular movements are intact. Oropharynx is pink with moist mucous membranes. No swelling of the mouth lips or tongue. Neck: Supple with a midline trachea. No meningeal signs or stiffness, no JVD or bruits. No Stridor. Chest: Clear to auscultation bilaterally. No wheezes or rhonchi. No increased work of breathing. Heart: Regular rate and rhythm without murmurs or gallops. Abdomen: Soft nontender, nondistended without rebound guarding or rigidity. Extremities: No cyanosis clubbing or edema. No calf tenderness or assymetry Spine/Back. Non tender to palpation. No CVA tenderness Skin: Good turgor without rashes. Neurologic exam: Cranial nerves two through 12 are intact. Motor and sensation are intact and symmetrical throughout. Medical Decision & Procedures ER Provider Diagnostic Interpretation: EKG: Normal sinus rhythm with first-degree AV block. Rate is 74. Poor R-wave progression. No acute ischemic changes or ectopy. When compared to the most recent EKG on 04-08-2018 there is no acute change Chest x-ray: No acute infiltrate failure or pneumothorax seen Note: I have personally interpreted the x-ray and clinical decision-making is based upon my interpretation Shoulder x-ray: No fracture. There are findings that suggest rotator cuff injuries/calcific tendinitis Chest CT: Please refer to report. No evidence of PE Laboratory Results 04/28/18 21:40 Red Blood Count 4.70, Mean Corpuscular Volume 91.5, Mean Corpuscular Hemoglobin 30.0, Mean Corpuscular Hemoglobin Concent 32.8, Mean Platelet Volume 11.2, Neutrophils (%) (Auto) 67.8, Lymphocytes (%) (Auto) 22.6, Monocytes (%) (Auto) 7.3, Eosinophils (%) (Auto) 1.4, Basophils (%) (Auto) 0.4, Neutrophils # (Auto) 7.17, Lymphocytes # (Auto) 2.39, Monocytes # (Auto) 0.77, Eosinophils # (Auto) 0.15, Basophils # (Auto) 0.04 04/28/18 21:40 Test 04/28/18 21:40 04/28/18 21:48 04/28/18 23:27 04/28/18 23:31 White Blood Count 10.57 K/uL (4.8-10.8) Red Blood Count 4.70 M/uL (4.7-6.1) Hemoglobin 14.1 g/dL (14.0-18.0) Hematocrit 43.0 % (42-52) Mean Corpuscular Volume 91.5 fL (80-100) Mean Corpuscular Hemoglobin 30.0 pg (25-34) Mean Corpuscular Hemoglobin Concent 32.8 g/dl (32-36) Platelet Count 180 K/uL (130-400) Mean Platelet Volume 11.2 fL (7.4-10.4) Neutrophils (%) (Auto) 67.8 % Lymphocytes (%) (Auto) 22.6 % Monocytes (%) (Auto) 7.3 % Eosinophils (%) (Auto) 1.4 % Basophils (%) (Auto) 0.4 % Neutrophils # (Auto) 7.17 K/uL (1.4-6.5) Lymphocytes # (Auto) 2.39 K/uL (1.2-3.4) Monocytes # (Auto) 0.77 K/uL (0.11-0.59) Eosinophils # (Auto) 0.15 K/uL (0-0.5) Basophils # (Auto) 0.04 K/uL (0-0.2) RDW Standard Deviation 52.6 fL (36.4-46.3) RDW Coefficient of Variation 15.6 % (11.5-14.5) Immature Granulocyte % (Auto) 0.5 % Immature Granulocyte # (Auto) 0.05 K/uL (0.00-0.02) Prothrombin Time 10.7 SECONDS (9.0-12.0) Prothromb Time International Ratio 1.0 (0.9-1.1) Activated Partial Thromboplast Time 29.5 SECONDS (21.0-31.0) Partial Thromboplastin Ratio 1.1 D-Dimer 1680 ug/L FEU (0-500) Anion Gap 9.0 mmol/L (3-11) Est Creatinine Clear Calc Drug Dose 80.6 ml/min Estimated GFR () 90.7 Estimated GFR (Non- 78.2 BUN/Creatinine Ratio 28.5 (10-20) Calcium Level 9.4 mg/dl (8.5-10.1) Total Creatine Kinase 124 U/L (39-308) Creatine Kinase MB 3.5 ng/ml (0.5-3.6) Creatine Kinase MB Ratio 2.8 (0-3.0) Bedside Troponin I 0.030 ng/ml (0-0.045) Medications Administered Medications (Trade) Dose Ordered Sig/Katherine Route Start Time Stop Time Status Last Admin Dose Admin Morphine Sulfate (MoRPHine SULFATE INJ) 4 mg NOW STAT IV 04/28/18 21:28 04/28/18 21:32 DC 04/28/18 21:46 4 MG Ondansetron HCl (Zofran Inj) 4 mg NOW STAT IV 04/28/18 21:28 04/28/18 21:32 DC 04/28/18 21:46 4 MG Hydromorphone HCl (Dilaudid Inj) 1 mg NOW STAT IV 04/28/18 22:10 04/28/18 22:11 DC 04/28/18 22:17 1 MG ECG Indication: chest pain Rate (beats per minute): 74 Rhythm: normal sinus Findings: 1st degree AV block Change: no significant change Change: No significant change when compared to 04-08-2018. Poor R-wave progression. Medical Decision This patient comes in as described above appears placed in room C6. He is here for treatment and evaluation of left shoulder pain. He appears uncomfortable. IV access established and given 4 mg morphine for IV Zofran and felt that it did not help. EKG does not show any acute ischemic changes troponin was negative. Chest x-ray is unremarkable. He has no pneumothorax or acute abnormality seen. His daughter arrived and talk to her at length he was given additional IV Dilaudid and he said that morphine typically does not help him. His d-dimer did come back elevated. I did do a chest CT there is no evidence of PE or pneumonia or pneumothorax. Symptoms are atypical for cardiac disease. Impression Primary Impression: Left sided chest pain Additional Impressions: Left shoulder pain Pleurisy Departure Information Referrals Mohan Perry M.D. (PCP) Patient Instructions My [facility] Problem Qualifiers
[2018-04-28] MEDS ORDERED: OPTIRAY 320 IV PRN (22:45)
--- NOTE | 2018-04-28 22:52 | DIAGNOSTIC IMAGING REPORT ---
(CHEST FOR PE) ANGIO WITH CT DOSE: 755.12 mGy.cm HISTORY: Chest pain dyspnea TECHNIQUE: Multiaxial CT images of the chest were performed following the intravenous administration of contrast to evaluate the pulmonary arteries. Maximal intensity projection images were also obtained. A dose lowering technique was utilized adhering to the principles of ALARA. COMPARISON STUDY: 03/23/2018 FINDINGS: Thoracic aorta is unremarkable. Pulmonary vasculature enhances appropriately. There are no filling defects. Lung parenchyma shows moderate emphysematous change. There are findings of mild peribronchial thickening in the mid to lower lung regions suggesting bronchitis. There are no focal infiltrates. 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 There are several old right-sided rib fractures. Chronic pleural plaques are identified bilaterally. IMPRESSION: 1. No evidence for pulmonary embolus. 2. Mild/moderate basilar bronchitis. 3. Stable baseline emphysematous change. 4. 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 The above report was generated using voice recognition software. It may contain grammatical, syntax or spelling errors. Electronically signed by: Derik Nelson M.D. 04/28/2018 10:51 PM Dictated Date/Time: 04/28/2018 10:48 PM
[2018-04-28] MEDS ORDERED: NITROGLYCERIN 0.4 MG SL PER TAB CHARGE SL STA (23:46)
[2018-04-29] VITALS (7 sets, daily range): BP systolic 96–150; BP diastolic 58–82; PULSE 68–93; TEMP 36.5–36.8; O2SAT 90–93; Ht 167.6 cm; Wt 107.0 kg
[2018-04-29] MEDS ORDERED: KETOROLAC TROMETHAMINE 30 MG/ML VIAL IV STA (00:07)
[2018-04-29] MEDS ORDERED: KETOROLAC TROMETHAMINE 15 MG/ML VIAL ONE (00:12)
[2018-04-29] MEDS ORDERED: ATOR-22 PO (00:13)
[2018-04-29] MEDS ORDERED: GLUCOSE 40% GEL 15 GM TUBE PO PRN (00:15)
[2018-04-29] MEDS ORDERED: GLUCOSE 10 TABS/TUBE PO PRN (00:15)
[2018-04-29] MEDS ORDERED: RANITIDINE HCL 150 MG TAB PO PRN (00:15)
[2018-04-29] MEDS ORDERED: CARBOHYDRATES FOR HYPOGLYCEMIA PO PRN (00:15)
[2018-04-29] MEDS ORDERED: LORAZEPAM 2 MG/ML 1 ML VIAL IV PRN (00:15)
[2018-04-29] MEDS ORDERED: ACETAMINOPHEN 325 MG TAB PO PRN (00:15)
[2018-04-29] MEDS ORDERED: OXYCODONE/ACETAMINOPHEN 5-325 TAB PO PRN (00:15)
[2018-04-29] MEDS ORDERED: GLUCAGON FOR INJ 1 MG VIAL SQ PRN (00:15)
[2018-04-29] MEDS ORDERED: DEXTROSE 50% 50 ML SYR IV PRN (00:15)
[2018-04-29] MEDS ORDERED: PROCHLORPERAZINE INJ 5 MG in SYRINGE 4 ML IV PRN (00:15)
[2018-04-29] MEDS ORDERED: GABA-112 PO (00:17)
[2018-04-29] MEDS ORDERED: GLIM4TAB2 PO (00:19)
[2018-04-29] MEDS ORDERED: EMPA1TAB PO (00:21)
[2018-04-29] MEDS ORDERED: OXYB5TAB PO (00:26)
[2018-04-29] MEDS ORDERED: RAMI2.5C PO (00:27)
[2018-04-29 00:44] LABS: ALBUMIN 3.2 gm/dl (3.4-5.0); TOTAL PROTEIN 7.6 gm/dl (6.4-8.2)
[2018-04-29] MEDS ORDERED: KETOROLAC TROMETHAMINE 15 MG/ML VIAL IV. STA (00:51)
[2018-04-29] MEDS ORDERED: GABAPENTIN 300 MG CAP PO ONE (01:00)
[2018-04-29] MEDS ORDERED: INSULIN ASPART 100 UNITS/ML 3 ML PEN SC ONE (01:00)
[2018-04-29] MEDS ORDERED: SODIUM CHLORIDE 0.9% 1000ML 1,000 ML IV ONE (01:00)
[2018-04-29] MEDS ORDERED: MAGNESIUM SULFATE 1GM / D5W 100 ML IV ONE (01:15)
[2018-04-29] MEDS ORDERED: BACLOFEN 10 MG TAB PO ONE (01:15)
[2018-04-29] MEDS ORDERED: OXYCODONE/ACETAMINOPHEN 5-325 TAB PO ONE (01:15)
[2018-04-29] MEDS ORDERED: IV FLUIDS COMPLETED PRN (01:30)
[2018-04-29] MEDS ORDERED: OXYCODONE HCL IR 5 MG TAB (IMMEDIATE RELEASE) PO ONE (01:42)
[2018-04-29] MEDS ORDERED: INSULIN GLARGINE SOLOSTAR 100 UNITS/ML 3 ML PEN SC ONE (02:50)
[2018-04-29] MEDS: KETOROLAC TROMETHAMINE 15 MG/ML VIAL IV. PRN ×2 (04:52→10:54)
[2018-04-29] MEDS: ENOXAPARIN 40 MG/0.4 ML SYR SC SCH (06:20)
[2018-04-29] MEDS: HYDROmorphone INJ 1 MG/ML SYR IV PRN ×2 (06:26→23:12)
[2018-04-29 07:13] LABS: BASO % 0.4 %; BASO ABS # 0.04 K/uL (0-0.2); EOS % 0.2 %; EOS ABS # 0.02 K/uL (0-0.5); HEMATOCRIT 42.7 % (42-52); HEMOGLOBIN 13.6 g/dL (14.0-18.0); IG# 0.02 K/uL (0.00-0.02); LYMPH % 13.5 %; LYMPH ABS # 1.44 K/uL (1.2-3.4); MEAN CELL VOLUME 91.4 fL (80-100); MEAN CORPUSCULAR HEMOGLOBIN 29.1 pg (25-34); MEAN CORPUSCULAR HGB CONC 31.9 g/dl (32-36); MEAN PLATELET VOLUME 11.2 fL (7.4-10.4); MONO % 11.9 %; MONO ABS # 1.27 K/uL (0.11-0.59); NEUT % 73.8 %; NEUT ABS # 7.84 K/uL (1.4-6.5); PLATELET COUNT 173 K/uL (130-400); RED CELL DISTRIBUTION WIDTH CV 15.5 % (11.5-14.5); RED CELL DISTRIBUTION WIDTH SD 52.2 fL (36.4-46.3); WHITE BLOOD COUNT 10.63 K/uL (4.8-10.8)
--- NOTE | 2018-04-29 07:22 | HISTORY & PHYSICAL EXAMINATION ---
DATE OF ADMISSION: 04/29/2018 PRIMARY CARE PHYSICIAN: Mohan Perry MD CHIEF COMPLAINT: Left shoulder pain, chest pain. HISTORY OF PRESENT ILLNESS: History obtained from patient, daughter, and records. Medical history significant for PAFib, off Coumadin, secondary to GI bleed, hypertension, PVD as per records, DM2 on oral meds, Vnidsyo-Duhge-Ctiir neuropathy, chronic pain on narcotics, history of bilateral lower extremity venous ulcers. Recent confinement 3 weeks ago for a fall secondary to left knee pain. Last night, the patient was watching television when he experienced pleuritic left-sided upper chest pain and shoulder pain. No cough, no diaphoresis,no fever, no chills No trauma. No previous episodes. Some shortness of breath because of inability to take a deep breath. Unrelieved by narcotics at home and Nitro at the ER. MEDICAL HISTORY: As above. Cardiac workup from admission in 02/2018 for left-sided chest pain. A 2D echo showed EF 55% and grade 1 diastolic dysfunction, no pericardial effusion. Chest pain felt to be atypical for angina. SURGERIES: He has had tonsillectomy, neck surgery, cholecystectomy, nasal reconstruction, toe surgery. HOME MEDICATIONS: Include Ventolin, ascorbic acid, aspirin, B complex, baclofen, Celebrex, vitamin D3, digoxin, Jardiance, Advair Diskus, fentanyl patch, Proscar, gabapentin, Mevacor, magnesium, melatonin, Glucophage, Lopressor, Senokot-S, multivitamins, Movantik, Niaspan, Prilosec, Oxy.IR, Zantac. ALLERGIES: PENICILLIN. FAMILY HISTORY: There is a family history of heart disease. PERSONAL AND SOCIAL HISTORY: Past smoker. No EtOH intake. 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 REVIEW OF SYSTEMS: As per HPI, all 10 systems reviewed, all other ROS negative. PHYSICAL EXAMINATION: VITAL SIGNS: Blood pressure was noted to be 149/70, pulse rate 88, RR 15, temperature 36.6, sats 94 on room air. GENERAL: Noted to be obese, uncomfortable, moaning in pain. No respiratory distress. SKIN: Normal color, warm. HEENT: Alopecia. [place] palpebral conjunctivae. No ptosis. Dry mucosa. NECK: Short neck. Supple. CHEST: Decreased breath sounds. No tenderness. HEART: Regular rate rhythm, no murmur. ABDOMEN: Some distention, nontender. EXTREMITIES: Chronic hand muscle atrophy/contractures.Tenderness on the superior shoulder, minimal pain on range of motion. NEUROLOGIC: No gross deformity. No facial asymmetry. Gait and stance not assessed. LABORATORY DATA: Hemoglobin was noted to be 14.1, WBC 10 platelets 180. Sodium noted to be 135, potassium 4.2, glucose 159. Point of care troponin was noted to be 0.03. EKG as per my interpretation 75, NSR, 1AVB, some T-wave flattening inversion in inferior leads, PRWP, low voltage. CTA showed no PE, bronchitis, stable hamartoma right lung base. Left shoulder x-ray rotator cuff tear, synovial, calcific tendinitis, degenerative disease ASSESSMENT: 1. Atypical chest pain likely musculoskeletal Abnormal left shoulder x-ray Anxiety contributory. 2. Hypertension, slightly elevated 3. chronic pain on narcotics 4. History of PAF Patient normal sinus rhythm not on Coumadin due to hx GI bleed 5. PVD as per records 6. DM2, on oral meds, suboptimal control as of recent inpatient hemoglobin A1c of 8.6 last 03/2018. 7. Chronic obstructive pulmonary disease. Past tobacco use Pulmo status at baseline. 8. Ozvgjcy-Yhcsk-Iszld neuropathy. PLAN: Observation PCU NSAID trial for musculoskeletal pain. Home in a.m. if patient comfortable and next troponin negative. May benefit from Orthopedics opinion if still w/ left shoulder discomfort in a.m. Basal insulin, ISS BG goal 140-180, carb count coverage DVT prophylaxis, Lovenox subQ. Full code. MTDD
[2018-04-29 07:48] LABS: BLOOD UREA NITROGEN 31 mg/dl (7-18); CALCIUM 9.3 mg/dl (8.5-10.1); CARBON DIOXIDE 27 mmol/L (21-32); CREATININE 0.98 mg/dl (0.60-1.40); GLUCOSE 190 mg/dl (70-99); POTASSIUM 4.5 mmol/L (3.5-5.1); SODIUM 135 mmol/L (136-145)
[2018-04-29] MEDS: OXYCODONE HCL IR 5 MG TAB (IMMEDIATE RELEASE) PO PRN ×2 (08:26→15:32)
[2018-04-29] MEDS: OXYBUTYNIN CHLORIDE 5 MG TABCR PO SCH (08:27)
[2018-04-29] MEDS: FLUTICASONE/SALMETEROL 250/50 (ADVAIR) 14 PUFF/1 INHALER INH SCH ×2 (08:27→21:26)
[2018-04-29] MEDS: PANTOprazole SOD 40 MG TAB PO SCH (08:28)
[2018-04-29] MEDS: METOPROLOL TARTRATE 25 MG TAB PO SCH ×2 (08:29→21:00)
[2018-04-29] MEDS: INSULIN ASPART 100 UNITS/ML 3 ML PEN SC SCH ×4 (08:32→21:30)
[2018-04-29] MEDS: GABAPENTIN 100 MG CAP PO SCH ×2 (08:33→17:04)
[2018-04-29] MEDS: ASPIRIN 81 MG ECTAB PO SCH (08:34)
[2018-04-29] MEDS: MULTIVITAMIN TAB PO SCH (08:34)
[2018-04-29] MEDS: NIASPAN 500 MG TABCR PO SCH ×2 (08:34→21:26)
[2018-04-29] MEDS: DOCUSATE SODIUM/SENNA 50/8.6MG TAB PO SCH (08:35)
[2018-04-29] MEDS ORDERED: ATORVASTATIN 20 MG TAB PO SCH (09:00)
[2018-04-29] MEDS ORDERED: GABAPENTIN 300 MG CAP PO SCH ×2 (09:00→21:00)
[2018-04-29] MEDS ORDERED: LIDODERM (LIDOCAINE) PATCH 5% TD ONE (12:15)
[2018-04-29] MEDS ORDERED: LIDOCAINE/EPINEPHRINE 2% 1:200,000 20 ML SDV INFIL ONE (14:30)
[2018-04-29] MEDS ORDERED: METHYLPREDNISOLONE ACETATE 80 MG/ML VIAL IA ONE (14:30)
[2018-04-29] MEDS: DIGOXIN 0.125 MG TAB PO SCH (15:33)
--- NOTE | 2018-04-29 16:22 | Progress Note ---
Medicine Progress Note Date & Time of Visit: Apr 29, 2018 at 16:05. Subjective Pt was seen and examined Sitting in bed with no distress eating lunch Pt said that he continue to have tenderness in his left shoulder He said that pain improves with the pain med He said that sometimes the shoulder pain radiates around the right side of her chest He said that movement of the left shoulder increases the pain Denies any chest pain, palpitation, dizziness and SOB Objective Last 8 Hrs Date Time Temp Pulse Resp B/P (MAP) Pulse Ox O2 Delivery O2 Flow Rate FiO2 04/29/18 15:36 36.7 68 24 122/77 (92) 92 Room Air 04/29/18 15:33 69 04/29/18 10:56 36.7 70 20 106/62 (77) 93 Room Air Physical Exam: General- No acute Head- atraumatic Eyes- PERRL, EOMI ENT- oropharynx clear Neck- supple, no JVD Lungs- clear to auscultation Heart- regular rhythm, tenderness on palpation Abdomen- normal bowel sounds, soft, nontender Extremities- no calf tenderness Neuro- alert, oriented x 3; PERRL, EOMI; no facial palsy; Skin- warm & dry Laboratory Results: Last 24 Hours Test 04/28/18 21:28 04/28/18 21:40 04/28/18 21:48 04/29/18 00:54 Creatine Kinase MB Ratio 2.8 White Blood Count 10.57 K/uL Red Blood Count 4.70 M/uL Hemoglobin 14.1 g/dL Hematocrit 43.0 % Mean Corpuscular Volume 91.5 fL Mean Corpuscular Hemoglobin 30.0 pg Mean Corpuscular Hemoglobin Concent 32.8 g/dl Platelet Count 180 K/uL Mean Platelet Volume 11.2 fL Neutrophils (%) (Auto) 67.8 % Lymphocytes (%) (Auto) 22.6 % Monocytes (%) (Auto) 7.3 % Eosinophils (%) (Auto) 1.4 % Basophils (%) (Auto) 0.4 % Neutrophils # (Auto) 7.17 K/uL Lymphocytes # (Auto) 2.39 K/uL Monocytes # (Auto) 0.77 K/uL Eosinophils # (Auto) 0.15 K/uL Basophils # (Auto) 0.04 K/uL RDW Standard Deviation 52.6 fL RDW Coefficient of Variation 15.6 % Immature Granulocyte % (Auto) 0.5 % Immature Granulocyte # (Auto) 0.05 K/uL Prothrombin Time 10.7 SECONDS Prothromb Time International Ratio 1.0 Activated Partial Thromboplast Time 29.5 SECONDS Partial Thromboplastin Ratio 1.1 D-Dimer 1680 ug/L FEU Sodium Level 135 mmol/L Potassium Level 4.2 mmol/L Chloride Level 102 mmol/L Carbon Dioxide Level 24 mmol/L Anion Gap 9.0 mmol/L Blood Urea Nitrogen 28 mg/dl Creatinine 0.97 mg/dl Est Creatinine Clear Calc Drug Dose 80.6 ml/min Estimated GFR () 90.7 Estimated GFR (Non- 78.2 BUN/Creatinine Ratio 28.5 Random Glucose 159 mg/dl Calcium Level 9.4 mg/dl Magnesium Level 1.6 mg/dl Total Bilirubin 0.7 mg/dl Direct Bilirubin 0.2 mg/dl Aspartate Amino Transf (AST/SGOT) 33 U/L Alanine Aminotransferase (ALT/SGPT) 43 U/L Alkaline Phosphatase 133 U/L Total Creatine Kinase 124 U/L Creatine Kinase MB 3.5 ng/ml Total Protein 7.6 gm/dl Albumin 3.2 gm/dl Lipase 271 U/L Bedside Troponin I 0.030 ng/ml Digoxin Level 0.7 ng/ml Test 04/29/18 00:56 04/29/18 06:49 04/29/18 07:41 04/29/18 11:53 Bedside Glucose 195 mg/dl 178 mg/dl 148 mg/dl White Blood Count 10.63 K/uL Red Blood Count 4.67 M/uL Hemoglobin 13.6 g/dL Hematocrit 42.7 % Mean Corpuscular Volume 91.4 fL Mean Corpuscular Hemoglobin 29.1 pg Mean Corpuscular Hemoglobin Concent 31.9 g/dl Platelet Count 173 K/uL Mean Platelet Volume 11.2 fL Neutrophils (%) (Auto) 73.8 % Lymphocytes (%) (Auto) 13.5 % Monocytes (%) (Auto) 11.9 % Eosinophils (%) (Auto) 0.2 % Basophils (%) (Auto) 0.4 % Neutrophils # (Auto) 7.84 K/uL Lymphocytes # (Auto) 1.44 K/uL Monocytes # (Auto) 1.27 K/uL Eosinophils # (Auto) 0.02 K/uL Basophils # (Auto) 0.04 K/uL RDW Standard Deviation 52.2 fL RDW Coefficient of Variation 15.5 % Immature Granulocyte % (Auto) 0.2 % Immature Granulocyte # (Auto) 0.02 K/uL Sodium Level 135 mmol/L Potassium Level 4.5 mmol/L Chloride Level 101 mmol/L Carbon Dioxide Level 27 mmol/L Anion Gap 8.0 mmol/L Blood Urea Nitrogen 31 mg/dl Creatinine 0.98 mg/dl Est Creatinine Clear Calc Drug Dose 78.9 ml/min Estimated GFR () 89.5 Estimated GFR (Non- 77.3 BUN/Creatinine Ratio 31.6 Random Glucose 190 mg/dl Calcium Level 9.3 mg/dl Troponin I < 0.015 ng/ml Assessment & Plan Atypical chest pain Mostly musculoskeletal due to the shoulder pain Tenderness on palpation Troponin negative EKG showed no ischemic changes Continue Aspirin, statin and metoprolol Currently denies any chest pain Chronic pain syndrome Chronic Shoulder pain Xray of L shoulder showed secondary evidence for rotator cuff tear. Calcific synovitis and/or tendinitis. On fentanyl patch, gabapentin, Toradol and prn Dilaudid Ortho consulted Pt does not want any surgical intervention at this time Case discussed with ortho team that plan to do left shoulder injection Hypertension BP stable History of PAF Currently on normal sinus rhythm Continue digoxin Not on coumadin due to hx GI bleed DM2 HbA1c of 8.6 last 03/2018. Continue Lantus Monitor BS COPD Stable Faqetzz-Lowtb-Zikup neuropathy. Stable DVT px on Lovenox CODE STATUS FULL CODE Current Inpatient Medications: Current Inpatient Medications Medications (Trade) Dose Ordered Sig/Katherine Route Start Time Stop Time Status Last Admin Dose Admin Ioversol (Optiray 320) 100 ml UD PRN IV 04/28/18 22:45 05/02/18 22:44 Enoxaparin Sodium (Lovenox Inj) 40 mg Q24H SC 04/29/18 06:00 05/29/18 05:59 04/29/18 06:20 40 MG Sodium Chloride 1,000 ml @ 60 mls/hr [id number] ONCE IV 04/29/18 01:00 04/29/18 17:39 04/29/18 01:18 60 MLS/HR Acetaminophen (Tylenol Tab) 650 mg Q4H PRN PO 04/29/18 00:15 05/29/18 00:14 Insulin Aspart (novoLOG ASPART) SLIDING SCALE If C... ACHS SC 04/29/18 07:00 05/29/18 06:59 04/29/18 08:32 2 UNITS Glucose (Glucose 40% Gel) 15-30 GRAMS 15 GRAMS... UD PRN PO 04/29/18 00:15 05/29/18 00:14 Glucose (Glucose Chew Tab) 4-8 Tablets 4 Tabl... UD PRN PO 04/29/18 00:15 05/29/18 00:14 Dextrose (Dextrose 50% 50ML Syringe) 25-50ML 25ML FOR ... UD PRN IV 04/29/18 00:15 05/29/18 00:14 Glucagon (Glucagon Inj) 1 mg UD PRN SQ 04/29/18 00:15 05/29/18 00:14 Carbohydrates (Carbohydrates For Hypoglycemia) 15-30 GRAMS 15 grams if BSG 54-69... UD PRN PO 04/29/18 00:15 05/29/18 00:14 Hydromorphone HCl (Dilaudid Inj) 1 mg Q6H PRN IV 04/29/18 00:15 05/13/18 00:14 04/29/18 06:26 1 MG Aspirin (Ecotrin Tab) 81 mg QAM PO 04/29/18 09:00 05/29/18 08:59 04/29/18 08:34 81 MG Baclofen (Lioresal Tab) 10 mg HS PO 04/29/18 21:00 05/29/18 20:59 Digoxin (Lanoxin Tab) 0.125 mg DAILY@1600 PO 04/29/18 16:00 05/29/18 15:59 04/29/18 15:33 0.125 MG Fentanyl (Duragesic Patch) 25 mcg Q3D@0900 TD 05/01/18 09:00 05/15/18 08:59 Finasteride (Proscar Tab) 5 mg QPM PO 04/29/18 21:00 05/29/18 20:59 Salmeterol Xinafoate/ Fluticasone (Advair Diskus 250/50 Inh) 1 puff BID INH 04/29/18 09:00 05/29/18 08:59 04/29/18 08:27 1 PUFF Metoprolol Tartrate (Lopressor Tab) 12.5 mg BID PO 04/29/18 09:00 05/29/18 08:59 04/29/18 08:29 12.5 MG Multivitamins (Multivitamin Tab) 1 tab DAILY PO 04/29/18 09:00 05/29/18 08:59 04/29/18 08:34 1 TAB Niacin (Niaspan Extended Rel Tab) 1,000 mg BID PO 04/29/18 09:00 05/29/18 08:59 04/29/18 08:34 1,000 MG Ranitidine HCl (zANTac TAB) 150 mg BID PRN PO 04/29/18 00:15 05/29/18 00:14 Senna/Docusate Sodium (Senokot S Tab) 1 tab QAM PO 04/29/18 09:00 05/29/18 08:59 Lovastatin (Mevacor Tab) 10 mg HS PO 04/29/18 21:00 05/29/18 20:59 Miscellaneous Information (Order Awaiting Action) 1 ea QS N/A 04/29/18 08:00 05/29/18 07:59 Pantoprazole Sodium (Protonix Tab) 40 mg QAM PO 04/29/18 09:00 05/29/18 08:59 04/29/18 08:28 40 MG Prochlorperazine Edisylate 5 mg/ Syringe 5 ml @ 5 mls/min Q6H PRN IV 04/29/18 00:15 05/29/18 00:14 Lorazepam (Ativan Inj) 0.25 mg Q4H PRN IV 04/29/18 00:15 05/29/18 00:14 Miscellaneous (Iv Fluids Completed) 1 ea PRN PRN N/A 04/29/18 01:30 04/29/19 01:29 Gabapentin (Neurontin Cap) 300 mg HS PO 04/29/18 21:00 05/29/18 08:59 Gabapentin (Neurontin Cap) 100 mg BIDPC PO 04/29/18 09:00 05/29/18 08:59 04/29/18 08:33 100 MG Oxybutynin Chloride (Ditropan-Xl Tab) 5 mg DAILY PO 04/29/18 09:00 05/29/18 08:59 04/29/18 08:27 5 MG Oxycodone HCl (Roxicodone Immediate Rel Tab) 10 mg Q4H PRN PO 04/29/18 01:45 05/13/18 01:44 04/29/18 15:32 10 MG Insulin Glargine (Lantus Solostar Pen) 10 units DAILY SC 04/30/18 09:00 05/30/18 08:59 Ketorolac Tromethamine (Toradol Inj) 15 mg Q6H PRN IV. 04/29/18 03:00 05/04/18 02:59 04/29/18 10:54 15 MG Lidocaine (Lidoderm Patch 5%) 1 patch QAM TD 04/30/18 09:00 05/30/18 08:59 Miscellaneous (Remove Lidoderm Patch) 1 ea DAILY@21 N/A 04/29/18 21:00 05/29/18 20:59
--- NOTE | 2018-04-29 16:39 | ORTHOPEDIC CONSULTATION ---
DATE OF CONSULTATION: 04/29/2018 HISTORY OF PRESENT ILLNESS: This is a 73-year-old gentleman well known to our orthopedic service, seen at the request of Dr. Yo Hodges and Dr. Rodney. The patient presented to [facility] with aggravating shoulder and chest pain on the left side, underwent workup for potential cardiac causes and was then admitted to the telemetry unit for further care and management. The patient had a pleuritic-type pain without trauma. He had a similar episode prior to this several years ago. Some shortness of breath, difficulty in taking deep breaths, unrelieved by narcotics and Nitro at the ER. PAST MEDICAL HISTORY: AFib, chronic Coumadin use, history of GI bleed, hypertension, peripheral vascular disease, diabetes mellitus type 2, Charcot-Fidelia tooth, neuroarthropathy, chronic pain, bilateral lower extremity venous ulcers. PAST SURGICAL HISTORY: Bilateral foot surgery, tonsillectomy, neck fusion, cholecystectomy, nasal reconstruction. ALLERGIES: PENICILLIN. MEDICATIONS: Ventolin, ascorbic acid, aspirin, B complex, baclofen, Celebrex, vitamin D3, digoxin, Jardiance, Advair Diskus, fentanyl patch, Proscar, gabapentin, Mevacor, magnesium, melatonin, Glucophage, Lopressor, Senokot S, multivitamins, Movantik, Niaspan, Prilosec, OxyIR, and Zantac. SOCIAL HISTORY: He is retired. He is a past smoker, stopped smoking. Denies drug use. PHYSICAL EXAMINATION: GENERAL: This is a pleasant 73-year-old gentleman lying supine in his hospital room bed. Speech clear and fluent. Affect is appropriate. EXTREMITIES: Examination of left shoulder demonstrates skin warm, dry, and intact. Cap refill less than 2 seconds. Radial pulse 2/4. He has wasting in bilateral upper and lower extremities consistent with Fxcdxeu-Ihcdb-Wlnql disorder. He has limited abduction and external rotation of the left compared to the right. He has weakness of the rotator cuff musculature and he has a positive drop arm test on the left. Positive empty can test on the left. He has tenderness over the anterior aspect of the shoulder and tenderness over the bicipital groove and he has a positive Speed's test. He has pain with cross arm impingement of the left. Radiographs of the left shoulder demonstrate advanced rotator cuff arthropathy with loss of the normal alignment of the shoulder with proximal migration of the humeral head. He has sclerosis at the glenohumeral joint. He also has sclerosis at the acromiohumeral joint. Marginal osteophyte, subchondral sclerosis are noted throughout the shoulder. IMPRESSION: 1. Left shoulder degenerative joint disease. 2. Left shoulder rotator cuff arthropathy. 3. Left shoulder osteoarthritis. 4. Changes related to Xejkqlm-Wsyds-Guxgx disorder. RECOMMENDATIONS: At this time, patient will be given a steroid injection of the left shoulder, ice to the affected area, and follow up as an outpatient with Dr. Gardner in clinic at [facility]. PROCEDURE NOTE: After obtaining verbal consent from the patient, I explained him the potential risks and benefits of steroid injection. The patient then underwent a sterile prep of the left shoulder with Betadine and alcohol and 1 mL of Depo-Medrol 80 mg and 6 mL of 0.5% Marcaine plain was injected in the left shoulder joint in the anterior approach with a 22 gauge needle. The injection progressed without difficulty. The patient tolerated the procedure well. Sterile Band-Aid was placed over the site. Thank you for the opportunity to consult in care of this patient. Will follow up as an outpatient.
[2018-04-29] MEDS ORDERED: FINASTERIDE 5 MG TAB PO SCH (21:00)
[2018-04-29] MEDS ORDERED: LOVASTATIN 20 MG TAB PO SCH (21:00)
[2018-04-29] MEDS ORDERED: BACLOFEN 10 MG TAB PO SCH (21:00)
[2018-04-30 00:04] VITALS: BP 118/68; PULSE 74; TEMP 36.7; O2SAT 92
[2018-04-30 03:16] VITALS: BP 145/71; PULSE 81; TEMP 36.5; O2SAT 92
[2018-04-30] MEDS: OXYCODONE HCL IR 5 MG TAB (IMMEDIATE RELEASE) PO PRN ×2 (03:28→08:35)
[2018-04-30] MEDS: ENOXAPARIN 40 MG/0.4 ML SYR SC SCH (06:16)
[2018-04-30 07:44] VITALS: BP 148/77; PULSE 96; TEMP 36.4; O2SAT 93
[2018-04-30] MEDS: NIASPAN 500 MG TABCR PO SCH (08:20)
[2018-04-30] MEDS: FLUTICASONE/SALMETEROL 250/50 (ADVAIR) 14 PUFF/1 INHALER INH SCH (08:21)
[2018-04-30] MEDS: METOPROLOL TARTRATE 25 MG TAB PO SCH (08:21)
[2018-04-30] MEDS: PANTOprazole SOD 40 MG TAB PO SCH (08:21)
[2018-04-30] MEDS: OXYBUTYNIN CHLORIDE 5 MG TABCR PO SCH (08:22)
[2018-04-30] MEDS: ASPIRIN 81 MG ECTAB PO SCH (08:22)
[2018-04-30] MEDS: MULTIVITAMIN TAB PO SCH (08:22)
[2018-04-30] MEDS: GABAPENTIN 100 MG CAP PO SCH (08:23)
[2018-04-30] MEDS: DOCUSATE SODIUM/SENNA 50/8.6MG TAB PO SCH (08:24)
[2018-04-30] MEDS: INSULIN ASPART 100 UNITS/ML 3 ML PEN SC SCH ×2 (08:27→11:58)
[2018-04-30] MEDS ORDERED: LIDODERM (LIDOCAINE) PATCH 5% TD SCH (09:00)
[2018-04-30] MEDS ORDERED: INSULIN GLARGINE SOLOSTAR 100 UNITS/ML 3 ML PEN SC SCH (09:00)
[2018-04-30] MEDS: HYDROmorphone INJ 1 MG/ML SYR IV PRN (11:11)
[2018-04-30 11:16] VITALS: BP 109/70; PULSE 82; TEMP 36.4; O2SAT 94
[2018-04-30] MEDS ORDERED: METHYLPREDNISOLONE ACETATE 80 MG/ML VIAL IA ONE (14:30)
[2018-04-30 14:45] VITALS: BP 109/70; PULSE 82; TEMP 36.4; O2SAT 94
[2018-04-30 14:52] VITALS: BP 104/63; PULSE 90; TEMP 36.4; O2SAT 92
--- NOTE | 2018-04-30 14:56 | Orthopedic Progress Note ---
Orthopedic Progress Note Date of Service Apr 30, 2018. Subjective Reports: feeling well, Denies: complaints (right shoulder mild discomfort, left shoulder pain resolved), chest pain, SOB, nausea / vomiting, light headedness, calf pain Additional Notes: Left shoulder improved. Objective calves soft nontender, capillary refill less than 2 sec., A&O x3 Left shoulder AROM/PROM improved. Limited pain with palpation and motion left shoulder. Radial pulse 2/4 b UE. CMT changes B UE. Date Time Temp Pulse Resp B/P (MAP) Pulse Ox O2 Delivery O2 Flow Rate FiO2 04/30/18 14:45 36.4 82 20 94 Room Air 04/30/18 11:16 36.4 82 109/70 (83) 94 Room Air 04/30/18 08:00 Room Air 04/30/18 07:44 36.4 96 20 148/77 (100) 93 Room Air 04/30/18 03:16 36.5 81 16 145/71 (95) 92 Room Air 04/30/18 00:04 36.7 74 18 118/68 (85) 92 Room Air 04/29/18 20:00 Room Air 04/29/18 19:18 36.8 79 22 96/58 (71) 90 Room Air 04/29/18 15:36 36.7 68 24 122/77 (92) 92 Room Air 04/29/18 15:33 69 Assessment & Plan Assessment: 1. Left shoulder degenerative joint disease. 2. Left shoulder rotator cuff arthropathy. 3. Left shoulder osteoarthritis. 4. Changes related to Eahxhmi-Tsais-Mrjla disorder. Plan: Activity as tolerated. F/U w/ Dr Kendra lazo shoulder pain as outpatient. Thank you for the consultation.
--- NOTE | 2018-04-30 15:34 | Progress Note ---
Medicine Progress Note Date & Time of Visit: Apr 30, 2018 at 15:31. Subjective Pt was seen and examined Sitting in bed with no distress Pt said that his left shoulder feels much better He said that he does not have any pain in the left shoulder Pt said that his HR increased during therapy and now back to normal. Pt said that today, he is able to take a deep breath without discomfort Denies any chest pain, palpitation, dizziness and SOB Objective Last 8 Hrs Date Time Temp Pulse Resp B/P (MAP) Pulse Ox O2 Delivery O2 Flow Rate FiO2 04/30/18 14:52 36.4 90 20 104/63 (77) 92 Room Air 04/30/18 14:45 36.4 82 20 94 Room Air 04/30/18 11:16 36.4 82 109/70 (83) 94 Room Air 04/30/18 08:00 Room Air 04/30/18 07:44 36.4 96 20 148/77 (100) 93 Room Air Physical Exam: General- No acute Head- atraumatic Eyes- PERRL, EOMI ENT- oropharynx clear Neck- supple, no JVD Lungs- clear to auscultation Heart- irregular rhythm Abdomen- normal bowel sounds, soft, nontender Extremities- no calf tenderness Neuro- alert, oriented x 3; PERRL, EOMI; no facial palsy; Skin- warm & dry Laboratory Results: Last 24 Hours Test 04/29/18 16:24 04/29/18 20:35 04/30/18 06:05 04/30/18 07:42 Bedside Glucose 156 mg/dl 263 mg/dl 235 mg/dl Magnesium Level 2.3 mg/dl Test 04/30/18 11:14 Bedside Glucose 288 mg/dl Assessment & Plan Atypical chest pain Mostly musculoskeletal due to the shoulder pain Tenderness on palpation Troponin negative EKG showed no ischemic changes Continue Aspirin, statin and metoprolol Currently denies any chest pain Resolved Chronic pain syndrome Chronic Shoulder pain Xray of L shoulder showed secondary evidence for rotator cuff tear. Calcific synovitis and/or tendinitis. On fentanyl patch, gabapentin, Toradol and prn Dilaudid Ortho consulted Pt does not want any surgical intervention at this time Had left shoulder injection yesterday by Dr. Gardner Pain improved Hypertension BP stable History of PAF Currently on Afib with rate control Case discussed with cardiology (unofficial consult) As per cardiology, no intervention needed since pt HR control and asymptomatic Continue digoxin Not on coumadin due to hx GI bleed Follow up with cardiology Dr. Reynaga DM2 HbA1c of 8.6 last 03/2018. Continue Lantus Monitor BS COPD Stable Qjbyjtr-Wgvvn-Sgyap neuropathy. Stable DVT px on Lovenox CODE STATUS FULL CODE Disposition Discharge home today Current Inpatient Medications: Current Inpatient Medications Medications (Trade) Dose Ordered Sig/Katherine Route Start Time Stop Time Status Last Admin Dose Admin Ioversol (Optiray 320) 100 ml UD PRN IV 04/28/18 22:45 05/02/18 22:44 Enoxaparin Sodium (Lovenox Inj) 40 mg Q24H SC 04/29/18 06:00 05/29/18 05:59 04/30/18 06:16 40 MG Acetaminophen (Tylenol Tab) 650 mg Q4H PRN PO 04/29/18 00:15 05/29/18 00:14 Insulin Aspart (novoLOG ASPART) SLIDING SCALE If C... ACHS SC 04/29/18 07:00 05/29/18 06:59 04/30/18 11:58 7 UNITS Glucose (Glucose 40% Gel) 15-30 GRAMS 15 GRAMS... UD PRN PO 04/29/18 00:15 05/29/18 00:14 Glucose (Glucose Chew Tab) 4-8 Tablets 4 Tabl... UD PRN PO 04/29/18 00:15 05/29/18 00:14 Dextrose (Dextrose 50% 50ML Syringe) 25-50ML 25ML FOR ... UD PRN IV 04/29/18 00:15 05/29/18 00:14 Glucagon (Glucagon Inj) 1 mg UD PRN SQ 04/29/18 00:15 05/29/18 00:14 Carbohydrates (Carbohydrates For Hypoglycemia) 15-30 GRAMS 15 grams if BSG 54-69... UD PRN PO 04/29/18 00:15 05/29/18 00:14 Hydromorphone HCl (Dilaudid Inj) 1 mg Q6H PRN IV 04/29/18 00:15 18 00:14 04/30/18 11:11 1 MG Aspirin (Ecotrin Tab) 81 mg QAM PO 04/29/18 09:00 05/29/18 08:59 85/18 08:22 81 MG Baclofen (Lioresal Tab) 10 mg HS PO 04/29/18 21:00 05/29/18 20:59 04/29/18 21:26 10 MG Digoxin (Lanoxin Tab) 0.125 mg DAILY@1600 PO 04/29/18 16:00 05/29/18 15:59 04/29/18 15:33 0.125 MG Fentanyl (Duragesic Patch) 25 mcg Q3D@0900 TD 05/01/18 09:00 05/15/18 08:59 Finasteride (Proscar Tab) 5 mg QPM PO 04/29/18 21:00 05/29/18 20:59 04/29/18 21:26 5 MG Salmeterol Xinafoate/ Fluticasone (Advair Diskus 250/50 Inh) 1 puff BID INH 04/29/18 09:00 05/29/18 08:59 04/30/18 08:21 1 PUFF Metoprolol Tartrate (Lopressor Tab) 12.5 mg BID PO 04/29/18 09:00 05/29/18 08:59 04/30/18 08:21 12.5 MG Multivitamins (Multivitamin Tab) 1 tab DAILY PO 04/29/18 09:00 05/29/18 08:59 04/30/18 08:22 1 TAB Niacin (Niaspan Extended Rel Tab) 1,000 mg BID PO 04/29/18 09:00 05/29/18 08:59 04/29/18 21:26 1,000 MG Ranitidine HCl (zANTac TAB) 150 mg BID PRN PO 04/29/18 00:15 05/29/18 00:14 Senna/Docusate Sodium (Senokot S Tab) 1 tab QAM PO 04/29/18 09:00 05/29/18 08:59 Lovastatin (Mevacor Tab) 10 mg HS PO 04/29/18 21:00 05/29/18 20:59 04/29/18 21:26 10 MG Miscellaneous Information (Order Awaiting Action) 1 ea QS N/A 04/29/18 08:00 05/29/18 07:59 Pantoprazole Sodium (Protonix Tab) 40 mg QAM PO 04/29/18 09:00 05/29/18 08:59 04/30/18 08:21 40 MG Prochlorperazine Edisylate 5 mg/ Syringe 5 ml @ 5 mls/min Q6H PRN IV 04/29/18 00:15 05/29/18 00:14 Lorazepam (Ativan Inj) 0.25 mg Q4H PRN IV 04/29/18 00:15 05/29/18 00:14 Miscellaneous (Iv Fluids Completed) 1 ea PRN PRN N/A 04/29/18 01:30 04/29/19 01:29 Gabapentin (Neurontin Cap) 300 mg HS PO 04/29/18 21:00 05/29/18 08:59 04/29/18 21:26 300 MG Gabapentin (Neurontin Cap) 100 mg BIDPC PO 04/29/18 09:00 05/29/18 08:59 04/30/18 08:23 100 MG Oxybutynin Chloride (Ditropan-Xl Tab) 5 mg DAILY PO 04/29/18 09:00 05/29/18 08:59 04/30/18 08:22 5 MG Oxycodone HCl (Roxicodone Immediate Rel Tab) 10 mg Q4H PRN PO 04/29/18 01:45 05/13/18 01:44 04/30/18 08:35 10 MG Insulin Glargine (Lantus Solostar Pen) 10 units DAILY SC 04/30/18 09:00 05/30/18 08:59 04/30/18 08:28 10 UNITS Ketorolac Tromethamine (Toradol Inj) 15 mg Q6H PRN IV. 04/29/18 03:00 05/04/18 02:59 04/29/18 10:54 15 MG Lidocaine (Lidoderm Patch 5%) 1 patch QAM TD 04/30/18 09:00 05/30/18 08:59 04/30/18 08:36 1 PATCH Miscellaneous (Remove Lidoderm Patch) 1 ea DAILY@21 N/A 04/29/18 21:00 05/29/18 20:59 04/29/18 21:00 1 EA
[2018-04-30] MEDS: DIGOXIN 0.125 MG TAB PO SCH (16:01)
--- NOTE | 2018-04-30 16:04 | Discharge Instructions ---
Discharge Instructions Date of Service Apr 30, 2018. Admission Reason for Admission: Chest Pain Discharge Discharge Diagnosis / Problem: Atypical chest pain, Left shoulder pain Discharge Goals Goal(s): Decrease discomfort, Improve function, Improve disease control Activity Recommendations Activity Limitations: resume your previous activity (as tolerated ) . Instructions / Follow-Up Instructions / Follow-Up Follow up with your primary care provider Dr. Perry ( Office will call you tomorrow for the appointment) Follow up with ortho as needed Follow up with cardiology dr. 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 Who to Call and When: Medical Emergencies: If at any time you feel your situation is an emergency, please call 911 immediately. . Non-Emergent Contact Non-Emergency issues call your: Primary Care Provider Call Non-Emergent contact if: temperature is above 101, your pain is not controlled, your pain is worsening, you have any medication questions . . "Provider Documentation" section prepared by Yo Hodges. .
[2018-05-01] MEDS ORDERED: FENTANYL 25 MCG/HR TDSY TD SCH (09:00)
== END 2018-04-30 16:26 | disposition home or self-care (01) ==
LOC: EDBD 21:21 → C.EDC 21:23 → C.2T 23:56 → ENRESERV 04-29 00:03
PROVIDERS: ADMIT Internal Medicine; ATTEND Internal Medicine
DX: R07.89 Other chest pain (principal); M25.512 Pain in left shoulder; G89.4 Chronic pain syndrome; M75.102 Unspecified rotator cuff tear or rupture of left shoulder, not specified as traumatic; M19.012 Primary osteoarthritis, left shoulder; I10 Essential (primary) hypertension; I48.0 Paroxysmal atrial fibrillation; E11.51 Type 2 diabetes mellitus with diabetic peripheral angiopathy without gangrene; I73.9 Peripheral vascular disease, unspecified; J44.9 Chronic obstructive pulmonary disease, unspecified; G60.0 Hereditary motor and sensory neuropathy; Z79.82 Long term (current) use of aspirin; Z79.01 Long term (current) use of anticoagulants; Z88.0 Allergy status to penicillin; Z87.891 Personal history of nicotine dependence; Z90.49 Acquired absence of other specified parts of digestive tract; Z98.1 Arthrodesis status

== ENCOUNTER 2019-07-29 14:34 | Inpatient (IN) ==
[2019-07-29] MEDS ORDERED: ONDANSETRON INJ 2 MG/ML 2 ML VIAL IV STA (15:08)
[2019-07-29] MEDS ORDERED: HYDROmorphone INJ 1 MG/ML SYRINGE IV STA ×2 (15:08→16:29)
--- NOTE | 2019-07-29 15:58 | XRay Report ---
AP CHEST WITH LEFT-SIDED RIB SERIES CLINICAL HISTORY: Fall. Left-sided chest wall injury. FINDINGS: An AP upright chest radiograph with 4 additional views from a left-sided rib series is comp ared to chest x-ray and chest CT dated 04/28/2018. The AP views degraded by patient rotation. The heart is enlarged. The pulmonary vasculature is noncongested. Emphysematous change and chronic interstitia l thickening are similar to previous. There is bibasilar scarring/atelectasis. No airspace consolidat ion or large pleural effusion is identified. No pneumothorax is seen. The skeletal structures are ost eopenic. There is no radiographic evidence of acute/distracted left-sided rib fracture on the rib ser ies. The remainder of the bony thorax is grossly intact. Fusion hardware is noted in the lower cervic al spine. Advanced arthritic changes seen in the shoulders. Superior subluxation of the humeral heads suggest chronic rotator cuff injuries. There is atherosclerotic calcification of the carotid bulbs. IMPRESSION: 1. Cardiomegaly and emphysema with no acute cardiopulmonary abnormality. 2. There is no radiographic evidence of acute/distracted left-sided rib fracture on the rib series as clinically queried. Electronically signed by: Eric Escalera M.D. 07/29/2019 3:56 PM
[2019-07-29 16:00] LABS: Basophils # (auto) 0.05 K/uL (0-0.2); Basophils % (auto) 0.5 %; Eosinophils # (auto) 0.15 K/uL (0-0.5); Eosinophils % (auto) 1.5 %; Hematocrit (blood only) 45.4 % (42-52); Immature Granulocytes # (auto) 0.25 K/uL (0.00-0.02); Immature Granulocytes % (auto) 2.6 %; Lymphocytes # (auto) 2.33 K/uL (1.2-3.4); Lymphocytes % (auto) 23.9 %; Mean Corpuscular Hemoglobin 29.5 pg (25-34); Mean Corpuscular Volume 89.4 fL (80-100); Mean Platelet Volume 11.6 fL (7.4-10.4); Monocytes # (auto) 0.71 K/uL (0.11-0.59); Monocytes % (auto) 7.3 %; Neutrophils # (auto) 6.24 K/uL (1.4-6.5); Neutrophils % (auto) 64.2 %; Platelet Count 216 K/uL (130-400); RDW Coefficient of Variation 17.2 % (11.5-14.5); RDW Standard Deviation 55.6 fL (36.4-46.3); Red Blood Count 5.08 M/uL (4.7-6.1); White Blood Count 9.73 K/uL (4.8-10.8)
--- NOTE | 2019-07-29 16:00 | XRay Report ---
SINGLE VIEW PELVIS CLINICAL HISTORY: Fall. FINDINGS: 2 AP supine pelvic radiographs are correlated with pelvic CT dated 11/29/2017. The skeletal s tructures are osteopenic. There is no radiographic evidence of fracture involving the hips or bony pe lvis. Mild degenerative joint space narrowing is seen in the hips. Degenerative sclerosis is noted in the sacroiliac joints. Lumbosacral spondylosis is partially visualized. The overlying soft tissues a re within normal limits. No bowel obstruction is seen. IMPRESSION: No acute osseous abnormality is identified. Electronically signed by: Eric Escalera M.D. 07/29/2019 3:58 PM
[2019-07-29 16:08] LABS: BUN Creatinine Ratio 35.7 (10-20); Calcium 9.7 mg/dl (8.5-10.1); Creatinine Clr Calc Pharmacy 79.6 ml/min; Est GFR (Non-African American) 77.7; Potassium 5.1 mmol/L (3.5-5.1)
[2019-07-29 16:17] LABS: INR 1.1 (0.9-1.1); Partial Thromboplastin Ratio 1.1; Partial Thromboplastin Time 29.5 Seconds (21.0-31.0); Prothrombin Time 10.8 Seconds (9.0-12.0)
[2019-07-29] MEDS ORDERED: IOVERSOL 100ml IV PRN (16:45)
--- NOTE | 2019-07-29 17:06 | CT Scan Report ---
CT SCAN OF THE BRAIN WITHOUT IV CONTRAST CLINICAL HISTORY: Trauma. Fall. COMPARISON STUDY: CT of the brain dated 11/29/2017. TECHNIQUE: Unenhanced axial CT scan of the brain is performed from the vertex to the skull base. A do se lowering technique was utilized adhering to the principles of ALARA. FINDINGS: Brain parenchyma: There are age-related involutional changes noting mild subcortical and periventric ular microangiopathic change. There is no hemorrhage, mass effect, or evidence of acute territorial i schemia by CT criteria. Granados-white matter differentiation is preserved. No extra-axial fluid collecti on is seen. Ventricles, sulci, cisterns: Prominent secondary to involutional change. Intracranial vasculature: There is atherosclerotic calcification of the cavernous carotid and vertebr al arteries. Calvarium: There is no depressed calvarial fracture. Sinuses and mastoids: There is evidence of previous paranasal sinus surgery. There is complete opacif ication of the right frontal sinuses. Mild mucosal thickening is noted in the right maxillary antrum and the anterior left ethmoid sinuses. The mastoid air cells are well pneumatized. Orbits: The bony orbits are grossly intact. There are bilateral ocular lens implants. IMPRESSION: There is no hemorrhage, mass effect, or evidence of acute territorial ischemia by CT emily madsen. Electronically signed by: Eric Escalera M.D. 07/29/2019 5:05 PM
--- NOTE | 2019-07-29 17:12 | CT Scan Report ---
CT SCAN OF THE CERVICAL SPINE CLINICAL HISTORY: Fall. COMPARISON STUDY: MRI of the cervical spine dated 04/20/2013. TECHNIQUE: CT scan of the cervical spine is performed from the skull base to the upper thoracic spine . Images are reviewed in the axial, sagittal, and coronal planes. IV contrast was not administered fo r this examination. A dose lowering technique was utilized adhering to the principles of ALARA. FINDINGS: Skeletal structures: The skeletal structures are osteopenic. There is no evidence of fracture or subl uxation involving the cervical spine. Vertebral body height and alignment are maintained. There is st raightening of the cervical lordosis. There is postoperative change from anterior fusion and posterio r fusion seen from C3-C5. There is near complete bony incorporation at these levels. The orthopedic h ardware appears intact. The odontoid process and lateral masses are intact. The atlantoaxial articula tion is preserved noting productive degenerative change. The remaining spinous processes appear intac t. Intervertebral discs: There is advanced disc space narrowing seen at C6-C7 mild disc space narrowing is noted at C2-C3.. Central canal: Grossly patent. Soft tissues: The prevertebral and paraspinous soft tissues are within normal limits. There is athero sclerotic calcification of the carotid bulbs. Calvarium: The visualized calvarium at the skull base appears intact. Brain parenchyma: Partially visualized brain parenchyma the skull base is within normal limits. Sinuses and mastoids: The visualized paranasal sinuses are clear. The mastoid air cells are well pneu matized. Cerumen is noted in the left external auditory canal. Lung apices: Clear as visualized. IMPRESSION: 1. There is no evidence of fracture or subluxation involving the cervical spine. 2. Osteopenia with postoperative and spondylotic change as above. Electronically signed by: Eric Escalera M.D. 07/29/2019 5:10 PM
--- NOTE | 2019-07-29 17:37 | CT Scan Report ---
CT SCAN OF THE CHEST, ABDOMEN, AND PELVIS WITH IV CONTRAST; CT SCAN OF THE THORACIC SPINE WITHOUT IV CONTRAST CLINICAL HISTORY: Fall. COMPARISON STUDY: Chest CT scans dated 04/28/2018 and 06/08/2009. Abdominal CT dated 11/29/2017. TECHNIQUE: Following the IV administration of 94 of Optiray 320, CT scan of the chest, abdomen, and p ron was performed from the thoracic inlet to the proximal femora. Images are reviewed in the axial, sagittal, and coronal planes. IV contrast was administered without complication. Additionally, unen hanced CT scan of the thoracic spine is performed from the lower cervical spine to the upper lumbar s pine. The thoracic spinal CT scanner is reviewed in the axial, sagittal, and coronal planes. IV contr ast was not administered specifically for the thoracic spine CT A dose lowering technique was utilize d adhering to the principles of ALARA. CT DOSE: 3948.53 mGy.cm FINDINGS: CHEST: Thyroid: Imaged portions of the thyroid gland are normal in size and attenuation. Thoracic aorta: There is atherosclerotic calcification of the thoracic aorta, which is normal in haseeb viraj and demonstrates bovine variant arch anatomy. No dissection is seen. Pulmonary vasculature: The main pulmonary arteries are dilated suggesting pulmonary artery hypertensi on. There are no filling defects identified in the central pulmonary vessels to indicate pulmonary em bolus. Note that this examination was not protocoled for evaluation of the pulmonary arteries. Heart: The heart is enlarged and without pericardial effusion. The coronary arteries are densely calc ified. Lungs and pleural spaces: Exam is change is noted. There is no airspace consolidation, pleural effusi on, or pneumothorax. Calcified pleural plaque is noted at the right lung base. There is bibasilar sca rring/atelectasis. The trachea and central airways are clear. A 1.6 cm nodule at the right lung base seen on image #181 contains macroscopic fat and has been present dating back to 2008. This likely rep resents a hamartoma. Mediastinum: There is no mediastinal hematoma or lymphadenopathy. Vandana: Clear. Axillae: There is no axillary lymphadenopathy. Bony thorax: See below for dedicated assessment of the thoracic spine. The skeletal structures are os teopenic. There are acute nondistracted left lateral 7th and posterior 8th and 9th rib fractures. The re are numerous chronic/healed right-sided rib fractures. No acute right-sided rib fracture is identi fied. Advanced arthritic change is seen in the partially visualized right shoulder. No lytic or blast ic lesions are identified. THORACIC SPINE: Vertebral body height and alignment are maintained throughout the thoracic spine. The re is no evidence of fracture or malalignment. Anterior osteophytes are seen throughout. The transver se and spinous processes are intact. There is mild multilevel degenerative disc space narrowing. Ther e is no evidence of large disc herniation or high-grade central canal stenosis by CT. There is no kenny dence of high-grade neural foraminal stenosis. The paraspinous soft tissues are normal in appearance. ABDOMEN AND PELVIS: Liver: The contrast-enhanced liver is enlarged, measuring 23.6 cm in length. The liver demonstrates d iffusely diminished attenuation consistent with hepatic steatosis. There is minimal central intrahepa tic biliary ductal dilatation. The hepatic veins and portal veins are patent. Gallbladder: Surgically absent noting clips in the gallbladder fossa. There are intraluminal filling defects within the distal common bile duct near the pancreatic head (axial images #160 and #167). Thi s is highly concerning for choledocholithiasis. Spleen: Normal in size and attenuation. Pancreas: Unremarkable. Adrenal glands: Unremarkable. Kidneys: The contrast enhanced kidneys demonstrate cortical atrophy and are without hydronephrosis. T he kidneys enhance symmetrically. There is a 3 mm nonobstructing calculus in the right lower pole. Abdominal vasculature: The abdominal aorta is normal in course and caliber noting advanced atheroscle rotic calcification. Bowel: There is moderate colonic fecal retention. No bowel obstruction is seen. The appendix is well -visualized and normal. Peritoneum: There is no intraperitoneal free air or abdominal ascites. There is a fat-containing umbi lical hernia. Lymphadenopathy: None. Pelvic viscera: The prostate gland is diminutive and heterogeneous. The bladder is distended but othe rwise normal as imaged. Skeletal structures: The skeletal structures are osteopenic. The lumbosacral spine and bony pelvis ap pear intact. There is moderate to advanced lumbosacral spondylosis. No lytic or blastic lesions are s een. Bursal fluid is noted around the right hip. There is asymmetric atrophy of the left iliopsoas mu sculature as compared to the right. IMPRESSION: 1. There are acute nondistracted left 7th, 8th, and 9th rib fractures as above. 2. Cardiomegaly and emphysema. 3. There is no airspace consolidation, pleural effusion, or pneumothorax. 4. There is no evidence of fracture or malalignment involving the thoracic spine. 5. There is no evidence of solid organ injury in the abdomen or pelvis. 6. Hepatomegaly and hepatic steatosis. 7. 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 This is been slowly growing dating back to at least 2008. 8. Findings are highly concerning for choledocholithiasis. Follow-up with GI is recommended. 9. Right-sided nephrolithiasis. 10. Additional findings as above. Electronically signed by: Eric Escalera M.D. 07/29/2019 5:34 PM
[2019-07-29] MEDS ORDERED: HYDROmorphone INJ 0.5 MG/0.5 ML SYR IV STA (18:42)
--- NOTE | 2019-07-29 20:32 | Emergency Department Note ---
Entered by Brittany Holbrook acting as a scribe for Vincenzo Hudson History of Present Illness General Chief complaint: Fall Time Seen by Provider: 07/29/19 14:49 Source: patient History of Present Illness Onset (ago): hour(s) 1 Location: left (left-sided pain from fall) Pain Consistency: + other (episode) Maximum Pain Intensity: 8 Relieved By: + none Associated symptoms: + denies other symptoms (back pain and elbow pain), + chest pain (left lateral chest pain) and + other (LUQ abdominal pain) The patient is a 74 year old M who presents to the Emergency Room with complaints of an episode of a fall that occurred 1 hour ago. He states that he was walking into [facility] when he tripped and fell on the curb. He notes that he fell on his left-side which is where he states he has pain. He adds that his pain is located in the LUQ of his abdomen and the left lateral chest. He denies experiencing any back pain and elbow pain. He states that he is on Elliquis and baby aspirin. He notes that he has a history of chronic pain. Home Medications Home Medications Medication Instructions Recorded Confirmed Type albuterol sulfate [Ventolin HFA] 2 puff INHALATION Q6H PRN 01/06/19 07/29/19 History apixaban [Eliquis] 5 mg PO BID 01/06/19 07/29/19 History ascorbic acid (vitamin C) [Vitamin 1,000 mg PO DAILY 01/06/19 07/29/19 History C] aspirin 81 mg PO DAILY 01/06/19 07/29/19 History atorvastatin [Lipitor] 20 mg PO DAILY 01/06/19 07/29/19 History baclofen 10 mg PO DAILY 01/06/19 07/29/19 History celecoxib [Celebrex] 200 mg PO BID PRN 01/06/19 07/29/19 History cholecalciferol (vitamin D3) 5,000 unit PO DAILY 01/06/19 07/29/19 History [Vitamin D3] digoxin [Digox] 125 mcg PO DAILY 01/06/19 07/29/19 History empagliflozin [Jardiance] 10 mg PO DAILY 01/06/19 07/29/19 History fentanyl 1 patch TRANSDERMAL Q72H 01/06/19 07/29/19 History finasteride 5 mg PO DAILY 01/06/19 07/29/19 History glimepiride 4 mg PO QAM 01/06/19 07/29/19 History metformin 1,000 mg PO BID 01/06/19 07/29/19 History metoprolol succinate 12.5 mg PO BID 01/06/19 07/29/19 History omeprazole 40 mg PO DAILY 01/06/19 07/29/19 History oxycodone 10 mg PO Q6H PRN 01/06/19 07/29/19 History pregabalin [Lyrica] 25 mg PO TID 01/06/19 07/29/19 History ranitidine HCl 150 mg PO BID PRN 01/06/19 07/29/19 History B-complex with vitamin C [Super B 1 tab PO DAILY 07/19/19 07/29/19 History Complex-Vitamin C] fluticasone propion-salmeterol 1 inh INHALATION BID 07/19/19 07/29/19 History [Advair Diskus] furosemide 20 mg PO 3XWK 07/19/19 07/29/19 History omega 4-lpk-lpp-fish oil [Fish Oil] 1 cap PO DAILY 07/19/19 07/29/19 History ramipril 5 mg PO BID 07/19/19 07/29/19 History varenicline [Chantix] 1 mg PO BID 07/19/19 07/29/19 History sulfamethoxazole-trimethoprim 1 tab PO BID 07/29/19 07/29/19 History [Bactrim DS] Allergies Allergy/AdvReac Type Severity Reaction Status Date / Time Penicillins Allergy Intermediate RASH Verified 07/29/19 14:54 Past Med/Surg History Social History Preferred Language: Irish Communication Ability: Effective Visual Impairment: Limited Hearing Ability: Hard of Hearing Beliefs That Will Affect Care: None marital status: Single Current Living Situation: Alone current occupational status: retired Feels Safe at Home: Yes Smoking Status: Current some day smoker packs per day: 0.5 ; Hx Alcohol Use: No Hx Substance Use: No Review of Systems See HPI for pertinent positives & negatives. and A total of 10 systems reviewed and were otherwise negative Physical Exam Vital Signs Vital Signs - 24 hr 07/29/19 14:41 07/29/19 16:55 07/29/19 17:50 Temperature 36.6 C Temperature Source Oral Sepsis Recent Fever Within 48 Hours No Sepsis New/Unexplained Change in Mental Status No Sepsis Action Taken by Nursing No Action Required Pulse Rate 79 Pulse Rate [Right Finger] 78 79 Respiratory Rate 21 19 20 Respiratory Effort / Characteristics Non-Labored Spontaneous Respiratory Depth Normal Respiratory Pattern Regular Blood Pressure 135/85 Blood Pressure [Left Arm] 135/85 114/73 Blood Pressure Mean 101 Blood Pressure Mean [Left Arm] 101 86 Pulse Oximetry 96 96 95 Oxygen Delivery Method Room Air Room Air Room Air 07/29/19 19:00 Temperature Temperature Source Sepsis Recent Fever Within 48 Hours Sepsis New/Unexplained Change in Mental Status Sepsis Action Taken by Nursing Pulse Rate Pulse Rate [Right Finger] 82 Respiratory Rate 20 Respiratory Effort / Characteristics Respiratory Depth Respiratory Pattern Blood Pressure Blood Pressure [Left Arm] 123/95 Blood Pressure Mean Blood Pressure Mean [Left Arm] 104 Pulse Oximetry 96 Oxygen Delivery Method GENERAL: He is oriented to person, place, and time. He appears well-developed and well-nourished. He does not appear distressed. HENT: Exam performed. - Head: Normocephalic and atraumatic. - Right Ear: External ear normal. No mastoid tenderness. - Left Ear: External ear normal. No mastoid tenderness. - Mouth/Throat: The oropharynx is clear and moist. No trismus in the jaw. No dental abscesses or uvula swelling. No oropharyngeal exudate or tonsillar abscesses. EYES: Conjunctivae and EOM are normal. Pupils are equal, round, and reactive to light. Right eye exhibits no discharge. Left eye exhibits no discharge. No scleral icterus. NECK: Normal range of motion. Neck supple. No JVD present. No spinous process tenderness present. No carotid bruit present. No rigidity. No tracheal deviation and normal range of motion present. No Brudzinski's sign and no Kernig's sign noted. CV: Normal rate, regular rhythm, normal heart sounds and intact distal pulses. There is no peripheral edema. Palpable radial pulses bue. PULM/CHEST: Effort normal and breath sounds normal. No respiratory distress. No stridor. He has no wheezes. He has no rales. - Chest Wall: Pain on palpation of the inferior lateral ribs on the left, no crepitus bilaterally. ABD: The abdomen is soft. Bowel sounds are normal. He has no distension. No mass is present. Pain with palpation of the LUQ. There is no rebound, no guarding, no Noyola's sign and no tenderness at McBurney's point. Rovsig negative. MUSC/SKEL: No C, T, or L-spine tenderness. Pelvis stable. LYMPH: No cervical adenopathy. NEURO: Motor and sensation grossly normal. SKIN: Skin is warm and dry. He is not diaphoretic. PSYCH: He has a normal mood and affect. Behavior is normal. Judgment and thought content normal. Course 1501: The patient was evaluated in room C10. A complete history and physical exam was performed. 1832: The patients vital signs are stable. The labs are within normal limits. The imaging shows a left-sided 7th, 8th, and 9th rib fracture. I had a long discussion with the patient and the patients family at bedside. The patient states that he still has increasing pain. The patients family states the patients pain will be too much to handle at home. The patient will be admitted to the hospital service for pain management. 1836: I reviewed the patient's case with Dr. Bray, [facility] Hospitalist. He will evaluate the patient for further management. Administered Medications Ioversol (Optiray 320 100ml) 94 ml IV ONCE PRN PRN Reason: Interaction Checking Stop: 08/02/19 16:44 Last Admin: 07/29/19 16:45 Dose: 94 ml Documented by: [id number] Discontinued Medications Hydromorphone HCl (Dilaudid) 1 mg IV NOW STA Stop: 07/29/19 15:09 Last Admin: 07/29/19 15:28 Dose: 1 mg Documented by: [id number] Hydromorphone HCl (Dilaudid) 1 mg IV NOW STA Stop: 07/29/19 16:30 Last Admin: 07/29/19 16:40 Dose: 1 mg Documented by: [id number] Hydromorphone HCl (Dilaudid) 0.5 mg IV NOW STA Stop: 07/29/19 18:43 Last Admin: 07/29/19 19:01 Dose: 0.5 mg Documented by: [id number] Ondansetron HCl (Zofran) 4 mg IV NOW STA Stop: 07/29/19 15:09 Last Admin: 07/29/19 15:28 Dose: 4 mg Documented by: [id number] Medical Decision Making Medical Records Attestation: I reviewed the patient's medical records. Home Medications Current Medication List: was personally reviewed by me Laboratory Data Attestation: I reviewed the patient's lab results. Result diagrams: 07/29/19 15:20 07/29/19 15:20 Lab Results 07/29/19 07/29/19 07/29/19 Range/Units 15:20 15:20 15:20 WBC 9.73 (4.8-10.8) K/uL RBC 5.08 (4.7-6.1) M/uL Hgb 15.0 (14.0-18.0) g/dL Hct 45.4 (42-52) % MCV 89.4 (80-100) fL MCH 29.5 (25-34) pg MCHC 33.0 (32-36) g/dL RDW Std Deviation 55.6 H (36.4-46.3) fL RDW Coeff of Naomi 17.2 H (11.5-14.5) % Plt Count 216 (130-400) K/uL MPV 11.6 H (7.4-10.4) fL Immature Gran % (Auto) 2.6 % Neut % (Auto) 64.2 % Lymph % (Auto) 23.9 % Cloud % (Auto) 7.3 % Eos % (Auto) 1.5 % Baso % (Auto) 0.5 % Immature Gran # (Auto) 0.25 H (0.00-0.02) K/uL Neut # (Auto) 6.24 (1.4-6.5) K/uL Lymph # (Auto) 2.33 (1.2-3.4) K/uL Cloud # (Auto) 0.71 H (0.11-0.59) K/uL Eos # (Auto) 0.15 (0-0.5) K/uL Baso # (Auto) 0.05 (0-0.2) K/uL PT 10.8 (9.0-12.0) Seconds INR 1.1 (0.9-1.1) APTT 29.5 (21.0-31.0) Seconds PTT Ratio 1.1 Sodium 134 L (136-145) mmol/L Potassium 5.1 (3.5-5.1) mmol/L Chloride 100 (98-107) mmol/L Carbon Dioxide 27 (21-32) mmol/L Anion Gap 7.0 (3-11) BUN 35 H (7-18) mg/dl Creatinine 0.97 (0.6-1.4) mg/dl Est Cr Clr Drug Dosing 79.6 ml/min Est GFR ( Amer) 90.0 Est GFR (Non-Af Amer) 77.7 BUN/Creatinine Ratio 35.7 H (10-20) Glucose 229 H (70-99) mg/dl Calcium 9.7 (8.5-10.1) mg/dl Imaging Data Radiologist's Impression: Radiology results as stated below per my review and the radiologist's interpretation: CT SCAN OF THE CHEST, ABDOMEN, AND PELVIS WITH IV CONTRAST; CT SCAN OF THE THORACIC SPINE WITHOUT IV CONTRAST CLINICAL HISTORY: Fall. COMPARISON STUDY: Chest CT scans dated 04/28/2018 and 06/08/2009. Abdominal CT dated 11/29/2017. TECHNIQUE: Following the IV administration of 94 of Optiray 320, CT scan of the chest, abdomen, and pelvis was performed from the thoracic inlet to the proximal femora. Images are reviewed in the axial, sagittal, and coronal planes. IV contrast was administered without complication. Additionally, unenhanced CT scan of the thoracic spine is performed from the lower cervical spine to the upper lumbar spine. The thoracic spinal CT scanner is reviewed in the axial, sagittal, and coronal planes. IV contrast was not administered specifically for the thoracic spine CT A dose lowering technique was utilized adhering to the principles of ALARA. CT DOSE: 3948.53 mGy.cm FINDINGS: CHEST: Thyroid: Imaged portions of the thyroid gland are normal in size and attenuation. Thoracic aorta: There is atherosclerotic calcification of the thoracic aorta, which is normal in caliber and demonstrates bovine variant arch anatomy. No dissection is seen. Pulmonary vasculature: The main pulmonary arteries are dilated suggesting pulmonary artery hypertension. There are no filling defects identified in the central pulmonary vessels to indicate pulmonary embolus. Note that this examination was not protocoled for evaluation of the pulmonary arteries. Heart: The heart is enlarged and without pericardial effusion. The coronary arteries are densely calcified. Lungs and pleural spaces: Exam is change is noted. There is no airspace consolidation, pleural effusion, or pneumothorax. Calcified pleural plaque is noted at the right lung base. There is bibasilar scarring/atelectasis. The trachea and central airways are clear. A 1.6 cm nodule at the right lung base seen on image #181 contains macroscopic fat and has been present dating back to 2008. 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 Mediastinum: There is no mediastinal hematoma or lymphadenopathy. Vandana: Clear. Axillae: There is no axillary lymphadenopathy. Bony thorax: See below for dedicated assessment of the thoracic spine. The skeletal structures are osteopenic. There are acute nondistracted left lateral 7th and posterior 8th and 9th rib fractures. There are numerous chronic/healed right-sided rib fractures. No acute right-sided rib fracture is identified. Advanced arthritic change is seen in the partially visualized right shoulder. No lytic or blastic lesions are identified. THORACIC SPINE: Vertebral body height and alignment are maintained throughout the thoracic spine. There is no evidence of fracture or malalignment. Anterior osteophytes are seen throughout. The transverse and spinous processes are intact. There is mild multilevel degenerative disc space narrowing. There is no evidence of large disc herniation or high-grade central canal stenosis by CT. There is no evidence of high-grade neural foraminal stenosis. The paraspinous soft tissues are normal in appearance. ABDOMEN AND PELVIS: Liver: The contrast-enhanced liver is enlarged, measuring 23.6 cm in length. The liver demonstrates diffusely diminished attenuation consistent with hepatic steatosis. There is minimal central intrahepatic biliary ductal dilatation. The hepatic veins and portal veins are patent. Gallbladder: Surgically absent noting clips in the gallbladder fossa. There are intraluminal filling defects within the distal common bile duct near the pancreatic head (axial images #160 and #167). This is highly concerning for choledocholithiasis. Spleen: Normal in size and attenuation. Pancreas: Unremarkable. Adrenal glands: Unremarkable. Kidneys: The contrast enhanced kidneys demonstrate cortical atrophy and are without hydronephrosis. The kidneys enhance symmetrically. There is a 3 mm nonobstructing calculus in the right lower pole. Abdominal vasculature: The abdominal aorta is normal in course and caliber noting advanced atherosclerotic calcification. Bowel: There is moderate colonic fecal retention. No bowel obstruction is seen. The appendix is well-visualized and normal. Peritoneum: There is no intraperitoneal free air or abdominal ascites. There is a fat-containing umbilical hernia. Lymphadenopathy: None. Pelvic viscera: The prostate gland is diminutive and heterogeneous. The bladder is distended but otherwise normal as imaged. Skeletal structures: The skeletal structures are osteopenic. The lumbosacral spine and bony pelvis appear intact. There is moderate to advanced lumbosacral spondylosis. No lytic or blastic lesions are seen. Bursal fluid is noted around the right hip. There is asymmetric atrophy of the left iliopsoas musculature as compared to the right. IMPRESSION: 1. There are acute nondistracted left 7th, 8th, and 9th rib fractures as above. 2. Cardiomegaly and emphysema. 3. There is no airspace consolidation, pleural effusion, or pneumothorax. 4. There is no evidence of fracture or malalignment involving the thoracic spine. 5. There is no evidence of solid organ injury in the abdomen or pelvis. 6. Hepatomegaly and hepatic steatosis. 7. 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 This is been slowly growing dating back to at least 2008. 8. Findings are highly concerning for choledocholithiasis. Follow-up with GI is recommended. 9. Right-sided nephrolithiasis. 10. Additional findings as above. Electronically signed by: Eric Escalera M.D. 07/29/2019 5:[address] SCAN OF THE CERVICAL SPINE CLINICAL HISTORY: Fall. COMPARISON STUDY: MRI of the cervical spine dated 04/20/2013. TECHNIQUE: CT scan of the cervical spine is performed from the skull base to the upper thoracic spine. Images are reviewed in the axial, sagittal, and coronal planes. IV contrast was not administered for this examination. A dose lowering technique was utilized adhering to the principles of ALARA. FINDINGS: Skeletal structures: The skeletal structures are osteopenic. There is no evidence of fracture or subluxation involving the cervical spine. Vertebral body height and alignment are maintained. There is straightening of the cervical lordosis. There is postoperative change from anterior fusion and posterior fusion seen from C3-C5. There is near complete bony incorporation at these levels. The orthopedic hardware appears intact. The odontoid process and lateral masses are intact. The atlantoaxial articulation is preserved noting productive degenerative change. The remaining spinous processes appear intact. Intervertebral discs: There is advanced disc space narrowing seen at C6-C7 mild disc space narrowing is noted at C2-C3.. Central canal: Grossly patent. Soft tissues: The prevertebral and paraspinous soft tissues are within normal limits. There is atherosclerotic calcification of the carotid bulbs. Calvarium: The visualized calvarium at the skull base appears intact. Brain parenchyma: Partially visualized brain parenchyma the skull base is within normal limits. Sinuses and mastoids: The visualized paranasal sinuses are clear. The mastoid air cells are well pneumatized. Cerumen is noted in the left external auditory canal. Lung apices: Clear as visualized. IMPRESSION: 1. There is no evidence of fracture or subluxation involving the cervical spine. 2. Osteopenia with postoperative and spondylotic change as above. Electronically signed by: Eric Escalera M.D. 07/29/2019 5:[address] SCAN OF THE BRAIN WITHOUT IV CONTRAST CLINICAL HISTORY: Trauma. Fall. COMPARISON STUDY: CT of the brain dated 11/29/2017. TECHNIQUE: Unenhanced axial CT scan of the brain is performed from the vertex to the skull base. A dose lowering technique was utilized adhering to the [facility] of SHANNA. FINDINGS: Brain parenchyma: There are age-related involutional changes noting mild subcortical and periventricular microangiopathic change. There is no hemorrhage, mass effect, or evidence of acute territorial ischemia by CT criteria. Granados- white matter differentiation is preserved. No extra-axial fluid collection is seen. Ventricles, sulci, cisterns: Prominent secondary to involutional change. Intracranial vasculature: There is atherosclerotic calcification of the cavernous carotid and vertebral arteries. Calvarium: There is no depressed calvarial fracture. Sinuses and mastoids: There is evidence of previous paranasal sinus surgery. There is complete opacification of the right frontal sinuses. Mild mucosal thickening is noted in the right maxillary antrum and the anterior left ethmoid sinuses. The mastoid air cells are well pneumatized. Orbits: The bony orbits are grossly intact. There are bilateral ocular lens implants. IMPRESSION: There is no hemorrhage, mass effect, or evidence of acute territorial ischemia by CT criteria. Electronically signed by: Eric Escalera M.D. 07/29/2019 5:05 PM AP CHEST WITH LEFT-SIDED RIB SERIES CLINICAL HISTORY: Fall. Left-sided chest wall injury. FINDINGS: An AP upright chest radiograph with 4 additional views from a left- sided rib series is compared to chest x-ray and chest CT dated 04/28/2018. The AP views degraded by patient rotation. The heart is enlarged. The pulmonary vasculature is noncongested. Emphysematous change and chronic interstitial thickening are similar to previous. There is bibasilar scarring/atelectasis. No airspace consolidation or large pleural effusion is identified. No pneumothorax is seen. The skeletal structures are osteopenic. There is no radiographic evidence of acute/distracted left-sided rib fracture on the rib series. The remainder of the bony thorax is grossly intact. Fusion hardware is noted in the lower cervical spine. Advanced arthritic changes seen in the shoulders. Superior subluxation of the humeral heads suggest chronic rotator cuff injuries. There is atherosclerotic calcification of the carotid bulbs. IMPRESSION: 1. Cardiomegaly and emphysema with no acute cardiopulmonary abnormality. 2. There is no radiographic evidence of acute/distracted left-sided rib fracture on the rib series as clinically queried. Electronically signed by: Eric Escalera M.D. 07/29/2019 3:56 PM SINGLE VIEW PELVIS CLINICAL HISTORY: Fall. FINDINGS: 2 AP supine pelvic radiographs are correlated with pelvic CT dated 11/29/2017. The skeletal structures are osteopenic. There is no radiographic evide nce of fracture involving the hips or bony pelvis. Mild degenerative joint space narrowing is seen in the hips. Degenerative sclerosis is noted in the sacroiliac joints. Lumbosacral spondylosis is partially visualized. The overlying soft tissues are within normal limits. No bowel obstruction is seen. IMPRESSION: No acute osseous abnormality is identified. Electronically signed by: Eric Escalera M.D. 07/29/2019 3:[address] SCAN OF THE CHEST, ABDOMEN, AND PELVIS WITH IV CONTRAST; CT SCAN OF THE THORACIC SPINE WITHOUT IV CONTRAST CLINICAL HISTORY: Fall. COMPARISON STUDY: Chest CT scans dated 04/28/2018 and 06/08/2009. Abdominal CT dated 11/29/2017. TECHNIQUE: Following the IV administration of 94 of Optiray 320, CT scan of the chest, abdomen, and pelvis was performed from the thoracic inlet to the proximal femora. Images are reviewed in the axial, sagittal, and coronal planes. IV contrast was administered without complication. Additionally, unenhanced CT scan of the thoracic spine is performed from the lower cervical spine to the upper lumbar spine. The thoracic spinal CT scanner is reviewed in the axial, sagittal, and coronal planes. IV contrast was not administered specifically for the thoracic spine CT A dose lowering technique was utilized adhering to the principles of ALARA. CT DOSE: 3948.53 mGy.cm FINDINGS: CHEST: Thyroid: Imaged portions of the thyroid gland are normal in size and attenuation. Thoracic aorta: There is atherosclerotic calcification of the thoracic aorta, which is normal in caliber and demonstrates bovine variant arch anatomy. No dissection is seen. Pulmonary vasculature: The main pulmonary arteries are dilated suggesting pulmonary artery hypertension. There are no filling defects identified in the ce ntral pulmonary vessels to indicate pulmonary embolus. Note that this examination was not protocoled for evaluation of the pulmonary arteries. Heart: The heart is enlarged and without pericardial effusion. The coronary arteries are densely calcified. Lungs and pleural spaces: Exam is change is noted. There is no airspace consolidation, pleural effusion, or pneumothorax. Calcified pleural plaque is noted at the right lung base. There is bibasilar scarring/atelectasis. The trachea and central airways are clear. A 1.6 cm nodule at the right lung base seen on image #181 contains macroscopic fat and has been present dating back to 2008. 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 Mediastinum: There is no mediastinal hematoma or lymphadenopathy. Vandana: Clear. Axillae: There is no axillary lymphadenopathy. Bony thorax: See below for dedicated assessment of the thoracic spine. The skeletal structures are osteopenic. There are acute nondistracted left lateral 7th and posterior 8th and 9th rib fractures. There are numerous chronic/healed right-sided rib fractures. No acute right-sided rib fracture is identified. Advanced arthritic change is seen in the partially visualized right shoulder. No lytic or blastic lesions are identified. THORACIC SPINE: Vertebral body height and alignment are maintained throughout the thoracic spine. There is no evidence of fracture or malalignment. Anterior osteophytes are seen throughout. The transverse and spinous processes are intact. There is mild multilevel degenerative disc space narrowing. There is no evidence of large disc herniation or high-grade central canal stenosis by CT. There is no evidence of high-grade neural foraminal stenosis. The paraspinous soft tissues are normal in appearance. ABDOMEN AND PELVIS: Liver: The contrast-enhanced liver is enlarged, measuring 23.6 cm in length. The liver demonstrates diffusely diminished attenuation consistent with hepatic steatosis. There is minimal central intrahepatic biliary ductal dilatation. The hepatic veins and portal veins are patent. Gallbladder: Surgically absent noting clips in the gallbladder fossa. There are intraluminal filling defects within the distal common bile duct near the pancreatic head (axial images #160 and #167). This is highly concerning for choledocholithiasis. Spleen: Normal in size and attenuation. Pancreas: Unremarkable. Adrenal glands: Unremarkable. Kidneys: The contrast enhanced kidneys demonstrate cortical atrophy and are without hydronephrosis. The kidneys enhance symmetrically. There is a 3 mm nonobstructing calculus in the right lower pole. Abdominal vasculature: The abdominal aorta is normal in course and caliber noting advanced atherosclerotic calcification. Bowel: There is moderate colonic fecal retention. No bowel obstruction is seen. The appendix is well-visualized and normal. Peritoneum: There is no intraperitoneal free air or abdominal ascites. There is a fat-containing umbilical hernia. Lymphadenopathy: None. Pelvic viscera: The prostate gland is diminutive and heterogeneous. The bladder is distended but otherwise normal as imaged. Skeletal structures: The skeletal structures are osteopenic. The lumbosacral spine and bony pelvis appear intact. There is moderate to advanced lumbosacral spondylosis. No lytic or blastic lesions are seen. Bursal fluid is noted around the right hip. There is asymmetric atrophy of the left iliopsoas musculature as compared to the right. IMPRESSION: 1. There are acute nondistracted left 7th, 8th, and 9th rib fractures as above. 2. Cardiomegaly and emphysema. 3. There is no airspace consolidation, pleural effusion, or pneumothorax. 4. There is no evidence of fracture or malalignment involving the thoracic spine. 5. There is no evidence of solid organ injury in the abdomen or pelvis. 6. Hepatomegaly and hepatic steatosis. 7. 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 This is been slowly growing dating back to at least 2008. 8. Findings are highly concerning for choledocholithiasis. Follow-up with GI is recommended. 9. Right-sided nephrolithiasis. 10. Additional findings as above. Electronically signed by: Eric Escalera M.D. 07/29/2019 5:[address] SCAN OF THE CHEST, ABDOMEN, AND PELVIS WITH IV CONTRAST; CT SCAN OF THE THORACIC SPINE WITHOUT IV CONTRAST CLINICAL HISTORY: Fall. COMPARISON STUDY: Chest CT scans dated 04/28/2018 and 06/08/2009. Abdominal CT dated 11/29/2017. TECHNIQUE: Following the IV administration of 94 of Optiray 320, CT scan of the chest, abdomen, and pelvis was performed from the thoracic inlet to the proximal femora. Images are reviewed in the axial, sagittal, and coronal planes. IV contrast was administered without complication. Additionally, unenhanced CT scan of the thoracic spine is performed from the lower cervical spine to the upper lumbar spine. The thoracic spinal CT scanner is reviewed in the axial, sagittal, and coronal planes. IV contrast was not administered specifically for the thoracic spine CT A dose lowering technique was utilized adhering to the principles of ALARA. CT DOSE: 3948.53 mGy.cm FINDINGS: CHEST: Thyroid: Imaged portions of the thyroid gland are normal in size and attenuation. Thoracic aorta: There is atherosclerotic calcification of the thoracic aorta, which is normal in caliber and demonstrates bovine variant arch anatomy. No dissection is seen. Pulmonary vasculature: The main pulmonary arteries are dilated suggesting pulmonary artery hypertension. There are no filling defects identified in the central pulmonary vessels to indicate pulmonary embolus. Note that this examination was not protocoled for evaluation of the pulmonary arteries. Heart: The heart is enlarged and without pericardial effusion. The coronary arteries are densely calcified. Lungs and pleural spaces: Exam is change is noted. There is no airspace consolidation, pleural effusion, or pneumothorax. Calcified pleural plaque is noted at the right lung base. There is bibasilar scarring/atelectasis. The trachea and central airways are clear. A 1.6 cm nodule at the right lung base seen on image #181 contains macroscopic fat and has been present dating back to 2008. 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 Mediastinum: There is no mediastinal hematoma or lymphadenopathy. Vandana: Clear. Axillae: There is no axillary lymphadenopathy. Bony thorax: See below for dedicated assessment of the thoracic spine. The skel etal structures are osteopenic. There are acute nondistracted left lateral 7th and posterior 8th and 9th rib fractures. There are numerous chronic/healed right-sided rib fractures. No acute right-sided rib fracture is identified. Advanced arthritic change is seen in the partially visualized right shoulder. No lytic or blastic lesions are identified. THORACIC SPINE: Vertebral body height and alignment are maintained throughout the thoracic spine. There is no evidence of fracture or malalignment. Anterior osteophytes are seen throughout. The transverse and spinous processes are intact. There is mild multilevel degenerative disc space narrowing. There is no evidence of large disc herniation or high-grade central canal stenosis by CT. There is no evidence of high-grade neural foraminal stenosis. The paraspinous soft tissues are normal in appearance. ABDOMEN AND PELVIS: Liver: The contrast-enhanced liver is enlarged, measuring 23.6 cm in length. The liver demonstrates diffusely diminished attenuation consistent with hepatic steatosis. There is minimal central intrahepatic biliary ductal dilatation. The hepatic veins and portal veins are patent. Gallbladder: Surgically absent noting clips in the gallbladder fossa. There are intraluminal filling defects within the distal common bile duct near the pancreatic head (axial images #160 and #167). This is highly concerning for choledocholithiasis. Spleen: Normal in size and attenuation. Pancreas: Unremarkable. Adrenal glands: Unremarkable. Kidneys: The contrast enhanced kidneys demonstrate cortical atrophy and are without hydronephrosis. The kidneys enhance symmetrically. There is a 3 mm nonobstructing calculus in the right lower pole. Abdominal vasculature: The abdominal aorta is normal in course and caliber noting advanced atherosclerotic calcification. Bowel: There is moderate colonic fecal retention. No bowel obstruction is seen. The appendix is well-visualized and normal. Peritoneum: There is no intraperitoneal free air or abdominal ascites. There is a fat-containing umbilical hernia. Lymphadenopathy: None. Pelvic viscera: The prostate gland is diminutive and heterogeneous. The bladder is distended but otherwise normal as imaged. Skeletal structures: The skeletal structures are osteopenic. The lumbosacral spine and bony pelvis appear intact. There is moderate to advanced lumbosacral spondylosis. No lytic or blastic lesions are seen. Bursal fluid is noted around the right hip. There is asymmetric atrophy of the left iliopsoas musculature as compared to the right. IMPRESSION: 1. There are acute nondistracted left 7th, 8th, and 9th rib fractures as above. 2. Cardiomegaly and emphysema. 3. There is no airspace consolidation, pleural effusion, or pneumothorax. 4. There is no evidence of fracture or malalignment involving the thoracic spine. 5. There is no evidence of solid organ injury in the abdomen or pelvis. 6. Hepatomegaly and hepatic steatosis. 7. 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 This is been slowly growing dating back to at least 2008. 8. Findings are highly concerning for choledocholithiasis. Follow-up with GI is recommended. 9. Right-sided nephrolithiasis. 10. Additional findings as above. Electronically signed by: Eric Escalera M.D. 07/29/2019 5:34 PM Blood Pressure Blood Pressure Findings: Elevated blood pressure Blood Pressure Disposition: further management by hospitalist PARKER Narrative 1501: The patient was evaluated in room C10. A complete history and physical exam was performed. 1832: The patients vital signs are stable. The labs are within normal limits. The imaging shows a left-sided 7th, 8th, and 9th rib fracture. I had a long discussion with the patient and the patients family at bedside. The patient states that he still has increasing pain. The patients family states the patients pain will be too much to handle at home. The patient will be admitted to the hospital service for pain management. 1836: I reviewed the patient's case with Amor Ortega Hospitalist. He will evaluate the patient for further management. Impression & Plan Multiple closed fractures of ribs of left side, Fall Discharge Plan Visit Data Chief Complaint: Fall ED Provider: Vincenzo Hudson Discharge Problem: Multiple closed fractures of ribs of left side, Fall Patient Disposition: Admitted As Inpatient Discharge Instructions Interventions: ED Discharge Assessment Last Done: 07/29/19 20:25 Discharge Problem: Multiple closed fractures of ribs of left side Qualifiers: Encounter type: initial encounter Qualified Code(s): S22.42XA - Multiple fractures of ribs, left side, initial encounter for closed fracture Fall Qualifiers: Encounter type: initial encounter Qualified Code(s): W19.XXXA - Unspecified fall, initial encounter The scribe's documentation has been prepared under my direction and personally reviewed by me in its entirety. I confirm that the note above accurately reflect s all work, treatment, procedures, and medical decision making performed by me.
[2019-07-29] MEDS ORDERED: NITROGLYCERIN SL 0.4 MG/TAB TAB SL PRN (20:35)
[2019-07-29] MEDS ORDERED: ALBUTEROL HFA 8 GM INHALER INH PRN (20:35)
[2019-07-29] MEDS ORDERED: ONDANSETRON INJ 2 MG/ML 2 ML VIAL IV PRN (20:35)
[2019-07-29] MEDS ORDERED: CARBOHYDRATES FOR HYPOGLYCEMIA PO PRN (20:45)
[2019-07-29] MEDS ORDERED: GLUCOSE 40% GEL 15 GM TUBE PO PRN (20:45)
[2019-07-29] MEDS ORDERED: GLUCOSE 10 TABS/TUBE PO PRN (20:45)
[2019-07-29] MEDS ORDERED: DEXTROSE 50% 50 ML SYRINGE IV PRN (20:45)
[2019-07-29] MEDS ORDERED: GLUCAGON FOR INJ 1 MG VIAL IM PRN (20:45)
[2019-07-29] MEDS: FLUTICASONE/SALMETEROL 250/50 (ADVAIR) 14 PUFF/1 INHALER INH SCH (21:33)
[2019-07-29] MEDS: DIGOXIN 0.125 MG TAB PO SCH (21:35)
[2019-07-29] MEDS: VARENICLINE 1 MG TAB PO SCH (21:37)
[2019-07-29] MEDS: SULFAMETHOXAZOLE/TRIMETHOPRIM DS 800/160MG TAB PO SCH (21:38)
[2019-07-29] MEDS: METOPROLOL SUCC 25MG EXT REL TAB PO SCH (21:42)
[2019-07-29] MEDS: ENALAPRIL MALEATE 10 MG TAB PO SCH (21:43)
[2019-07-29] MEDS: APIXABAN 5 MG TABLET PO SCH (21:46)
[2019-07-29] MEDS: PREGABALIN 25 MG CAP PO SCH (21:57)
[2019-07-29] MEDS: HYDROmorphone INJ 0.5 MG/0.5 ML SYR IV PRN (21:58)
[2019-07-29] MEDS ORDERED: fentaNYL 25 MCG/HR TDSY TD SCH (22:00)
[2019-07-29] MEDS: INSULIN GLARGINE SOLOSTAR 100 UNITS/ML 3 ML PEN SC SCH (22:02)
[2019-07-29] MEDS: INSULIN ASPART 100 UNITS/ML 3 ML PEN SC SCH (22:03)
--- NOTE | 2019-07-29 22:36 | History and Physical Report ---
DATE OF ADMISSION: 07/29/2019 CHIEF COMPLAINT: Status post fall and left-sided rib fracture. HISTORY OF PRESENT ILLNESS: A 74-year-old male with past medical history significant for type 2 diabetes, hypertriglyceridemia, diabetes with peripheral vascular disease, COPD, history of lung nodule, paroxysmal atrial fibrillation on Eliquis, chronic kidney disease stage III, hypertension, morbid obesity, GERD, BPH, bilateral foot drop, rotator cuff arthropathy of left shoulder, Lxzevuv-Ceyes-Xhjiw disease, neuropathy, tobacco use disorder, degenerative cervical spine stenosis. Presents with fall and left-sided rib fractures. The patient's daughter who is a nurse says that the patient was having chronic arthritis with severe pains which is limiting his ambulation, he generally uses a walker. A few days back he had left hip steroid shot which helped his pain in the left hip and today is the first time he went outside after a long time. They went to the [facility] pharmacy. He was using a cane and tripped over the curb and fell down on the left side. He did not hit his head, no loss of consciousness. Severe pain in his left ribcage on the posterior aspect. Imaging studies showed acute nondistracted left 7th, 8th, and 9th rib fractures. No pneumothorax. 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 There is question of choledocholithiasis, right-sided nephrolithiasis, moderate colon fecal retention. The patient also has significant pain medications at home and he recently was also having rash in his pannus and also cellulitis of the sacrum. He is on Bactrim started on 07/24/2019, to be taken until 08/03/2019. Daughter saw yesterday and the cellulitis seemed to be improving. Rash in the pannus also much improved using nystatin. No recent fever, chills. No headache, no dizziness, no blurred visions, no earache, no runny nose, no sore throat, no difficulty swallowing. Occasional cough. Has some shortness of breath on exertion from his COPD. No chest pain. Appetite is good. Does not sleep well. He is supposed to get a sleep study done by the end of this month. No nausea, no vomiting, no abdominal pain No diarrhea, somewhat is constipated. No blood in the stools or black stools. No burning micturition, no hematuria. Currently no Swelling in the legs. He takes Lasix 3 times a week, but did not take for the last 4 days. He is elevating his legs while sleeping. Currently resting comfortably and hemodynamically stable. On movement, he is having pain in his left ribcage.Had an episode of palpitations couple of days ago with sweating. ALLERGIES: PENICILLINS. PAST MEDICAL HISTORY: As mentioned above. PAST SURGICAL HISTORY: Colonoscopy with polypectomy, laparoscopic cholecystectomy with cholangiography, partial amputation of left big toe due to ingrown nail, reconstruction of the nose septum in high school after fracture, cataract surgeries, bilateral cervical spinal fusion surgery. MEDICATIONS: The patient is on nystatin 365421 apply b.i.d., Bactrim 1 tablet b.i.d. until 08/03/2019, Lasix 20 mg 3 times a week, fentanyl patch 25 mcg q. 72 hours, ramipril 5 mg p.o. b.i.d., oxycodone 10 mg p.o. q. 6 hours p.r.n., digoxin 125 mcg p.o. daily, metformin 1000 mg p.o. b.i.d., Eliquis 5 mg p.o. b.i.d., omega 3 fatty acids 1 capsule daily, Glimepiride 4 mg p.o. daily, Celebrex 200 mg p.o. b.i.d. p.r.n., baclofen 10 mg p.o. at bedtime, Proscar 5 mg p.o. daily, Chantix 1 tablet p.o. b.i.d., Lyrica 25 mg p.o. t.i.d., atorvastatin 20 mg p.o. daily, Lopressor 12.5 mg p.o. b.i.d., Advair Diskus 250/50 mcg 1 puff b.i.d., Jardiance 10 mg p.o. daily, Prilosec 40 mg p.o. daily, albuterol 2 puffs every 6 hours p.r.n., Zantac 150 mg p.o. b.i.d., aspirin 81 mg p.o. daily, B complex 1 tablet daily, vitamin D 5000 units p.o. daily, vitamin C 500 mg p.o. daily. FAMILY HISTORY: Significant for mother had CAD, COPD; daughter has Cpjjygl-Nhxgv-Zfzvy disease. SOCIAL HISTORY: . Smokes half pack a day for 57 years. Alcohol rarely. No drug use. REVIEW OF SYSTEMS: As per HPI. Rest of review of systems negative. PHYSICAL EXAMINATION: GENERAL: The patient is obese, not in acute distress. VITAL SIGNS: Temperature 36.6, pulse 82, respiratory rate 20, blood pressure 123/95, oxygen 96% on room air. HEENT: No pallor, no icterus. Pupils equal, round, and reactive to light. NECK: No JVD, no neck masses, no carotid bruits. CARDIOVASCULAR: S1, S2 heard, regular rate and rhythm, no murmur, no gallop. RESPIRATORY SYSTEM: Normal AP diameter. No accessory muscle use. No wheezing, no crackles. ABDOMEN: Soft, bowel sounds present, nontender. No distention. CENTRAL NERVOUS SYSTEM: Alert and awake and oriented. Cranial nerves II-XII grossly intact. Moves extremities. Nonfocal. EXTREMITIES: Mild chronic erythematous changes in the lower extremity, no edema seen. LABORATORY DATA: WBC 9.7, hemoglobin 15, hematocrit 45.4, platelets 216. PT 10.8, INR 1.1, APTT 29.5. Sodium 134, potassium 5.1, chloride 100, bicarbonate 27, BUN 35, creatinine 0.9, serum glucose 229, calcium 9.7. There are acute nondistracted left 7th, 8th and 9th rib fractures, cardiomegaly and emphysema. No airspace consolidation, pleural effusion, or pneumothorax. No evidence of fracture of thoracic spine. No evidence of solid organ injury in the abdomen or pelvis. Hepatomegaly and hepatic steatosis. A 1.6 cm nodule in the right lung base consistent with microscope fat and likely represents hamartoma. This has been slowly growing dating back to at least 2008. Findings are highly concerning for choledocholithiasis. Followup with GI is recommended. Right-sided nephrolithiasis. Chronic moderate colonic fecal retention. Fat-containing umbilical hernia. CT of the head, no acute findings. Cervical spine CT, no acute findings. ASSESSMENT AND PLAN: This is a 74-year-old male who presents with mechanical fall at [facility] and comes with left-sided rib fracture. 1. Mechanical fall, left-sided rib fractures, left 7th, 8th and 9th rib fractures, nondistracted, pain controlled. Placed him on IV Dilaudid p.r.n. PT/OT when stable. Monitor in the hospital. 2. Palpitations. The patient had palpitations a couple of days ago in the night with some sweating. History of atrial fibrillation, currently seems stable. We will monitor in the med/surg tele. Continue his Home Lopressor, digoxin and eliquis.. 3. Question of choledocholithiasis on the CAT scan of the abdomen and pelvis. We will get gallbladder ultrasound. NPO after midnight for ultrasound. Consult GI for further recommendations. 6. Chronic arthritis. Continue his home pain medications of oxycodone and Duragesic patch. PT and OT when stable. May need placement. 7. Diabetes, hold his Jardiance, glimepiride, and Metformin. We will place on Lantus 5 units b.i.d. and insulin sliding scale. Follow hemoglobin A1c. Diabetic diet. 8. Benign prostatic hyperplasia, continue his Proscar. 9. Diabetic neuropathy, on Lyrica. 10. Hyperlipidemia, on statin. 11. High blood pressure, on Lopressor, Ramipril, and Lasix. Monitor his blood pressure. 12. Sacral cellulitis, not able to examine today because the patient has pain with movement. Daughter says checked yesterday and , it was improving. Continue Bactrim until 08/03/2019, . Rash in the pannus, on nystatin, improving. 13. Gastroesophageal reflux disease, on Prilosec. 14. Tobacco abuse disorder, needs counseling. 15. History of chronic obstructive pulmonary disease. Albuterol p.r.n. and Advair Diskus, currently stable. 16. History of lung nodule, seems stable. Follow up with PCP. 17. Morbid obesity, supposed to get sleep study at the end of this month. 18. Chronic back pain,lumbar stenosis. Seen by Dr. Conde, and requests consult for . 19. Constipation. On Ct owusu. Will start on miralax daily for now. 20.. Deep venous thrombosis prophylaxis, on Eliquis. DISPOSITION: Admit to med/surg tele. Level 1 full code. PT and OT prior to discharge. Social service to help with discharge planning. [facility]
[2019-07-29] MEDS: CHECK FENTANYL PATCH PLACEMENT SCH (23:46)
[2019-07-29] MEDS: OXYCODONE HCL IR 5 MG TAB (IMMEDIATE RELEASE) PO PRN (23:48)
[2019-07-30] MEDS: HYDROmorphone INJ 0.5 MG/0.5 ML SYR IV PRN ×3 (03:18→14:02)
[2019-07-30 05:53] LABS: Basophils # (auto) 0.06 K/uL (0-0.2); Basophils % (auto) 0.5 %; Eosinophils # (auto) 0.18 K/uL (0-0.5); Eosinophils % (auto) 1.6 %; Hematocrit (blood only) 43.6 % (42-52); Hemoglobin 14.6 g/dL (14.0-18.0); Immature Granulocytes # (auto) 0.17 K/uL (0.00-0.02); Immature Granulocytes % (auto) 1.5 %; Lymphocytes # (auto) 2.83 K/uL (1.2-3.4); Lymphocytes % (auto) 24.6 %; Mean Corpuscular Hemoglobin 29.8 pg (25-34); Mean Corpuscular Hgb Conc 33.5 g/dL (32-36); Mean Platelet Volume 10.6 fL (7.4-10.4); Monocytes # (auto) 0.87 K/uL (0.11-0.59); Monocytes % (auto) 7.6 %; Neutrophils % (auto) 64.2 %; Platelet Count 201 K/uL (130-400); RDW Coefficient of Variation 17.5 % (11.5-14.5); RDW Standard Deviation 56.9 fL (36.4-46.3); White Blood Count 11.51 K/uL (4.8-10.8)
[2019-07-30 06:21] LABS: Estimated Average Glucose 249 mg/dl; Hemoglobin A1C 10.3 % (4.5-5.6)
[2019-07-30 06:26] LABS: BUN Creatinine Ratio 32.7 (10-20); Calcium 9.5 mg/dl (8.5-10.1); Creatinine Clr Calc Pharmacy 64.6 ml/min; Est GFR (African American) 72.5; Est GFR (Non-African American) 62.6; Magnesium 1.7 mg/dl (1.8-2.4); Potassium 5.1 mmol/L (3.5-5.1)
[2019-07-30] MEDS ORDERED: MAGNESIUM SULFATE / D5W 1 GM/100 ML BAG IV ONE (06:56)
[2019-07-30] MEDS: PREGABALIN 25 MG CAP PO SCH ×3 (08:01→20:51)
[2019-07-30] MEDS: FLUTICASONE/SALMETEROL 250/50 (ADVAIR) 14 PUFF/1 INHALER INH SCH ×2 (08:01→20:41)
[2019-07-30] MEDS: METOPROLOL SUCC 25MG EXT REL TAB PO SCH ×2 (08:01→20:42)
[2019-07-30] MEDS: OXYCODONE HCL IR 5 MG TAB (IMMEDIATE RELEASE) PO PRN ×2 (08:01→16:55)
[2019-07-30] MEDS: PANTOprazole 40 MG TAB PO SCH (08:02)
[2019-07-30] MEDS: ASCORBIC ACID 500 MG TAB PO SCH (08:02)
[2019-07-30] MEDS: VITAMIN B COMPLEX TAB PO SCH (08:02)
[2019-07-30] MEDS: FINASTERIDE 5 MG TAB PO SCH (08:02)
[2019-07-30] MEDS: BACLOFEN 10 MG TAB PO SCH (08:02)
[2019-07-30] MEDS: ENALAPRIL MALEATE 10 MG TAB PO SCH ×2 (08:02→20:43)
[2019-07-30] MEDS: VARENICLINE 1 MG TAB PO SCH ×2 (08:03→20:44)
[2019-07-30] MEDS: CHOLECALCIFEROL 1,000 UNITS TAB PO SCH (08:03)
[2019-07-30] MEDS: SULFAMETHOXAZOLE/TRIMETHOPRIM DS 800/160MG TAB PO SCH ×2 (08:03→20:44)
[2019-07-30] MEDS: ATORVASTATIN 20 MG TAB PO SCH (08:03)
[2019-07-30] MEDS: APIXABAN 5 MG TABLET PO SCH (08:04)
[2019-07-30] MEDS: CHECK FENTANYL PATCH PLACEMENT SCH ×2 (08:09→18:00)
[2019-07-30] MEDS ORDERED: ASPIRIN 81 MG ECTAB PO SCH (09:00)
--- NOTE | 2019-07-30 09:01 | Ultrasound Report ---
US gallbladder HISTORY: 74 years-old Male choledocholithiasis? Acute upper abdominal pain with history of recent fa ll. Question choledocholithiasis described on recent CT abdomen and pelvis COMPARISON: CT abdomen and pelvis 07/29/2018 TECHNIQUE: Multiple real-time sonographic images of the abdominal right upper quadrant were obtained assessing grayscale appearance and color flow FINDINGS: Hepatomegaly with hepatic steatosis. Visualized pancreas appears unremarkable. Cholecystectomy. Commo n bile duct is dilated measuring up to 9.5 mm. No significant intrahepatic biliary ductal dilation. P reviously described choledocholithiasis not identified by ultrasound. The imaged right kidney is unre markable. IMPRESSION: 1. Cholecystectomy. 2. Mild dilation of the common bile duct with previously questioned choledocholithiasis not appreciat ed by ultrasound. 3. Hepatomegaly with hepatic steatosis. The above report was generated using voice recognition software. It may contain grammatical, syntax o r spelling errors. Electronically signed by: Iván Murphy M.D. 07/30/2019 9:00 AM
[2019-07-30] MEDS: INSULIN ASPART 100 UNITS/ML 3 ML PEN SC SCH ×4 (09:45→20:44)
[2019-07-30] MEDS: INSULIN GLARGINE SOLOSTAR 100 UNITS/ML 3 ML PEN SC SCH ×2 (09:46→20:46)
[2019-07-30] MEDS: POLYETHYLENE (MIRALAX) 17 GM PACK PO SCH (09:51)
--- NOTE | 2019-07-30 10:01 | Gastrointestinal Consultation ---
Date of Consultation July 30, 2019 Assessment & Plan (1) Choledocholithiasis: Pt with CT with distal bile duct stones and intermittent abdominal pain (though unsure if from constipation or choledocholithiasis). 1. Discussed recommendation for ERCP including procedure, possible complications with the pt and his two daughters at bedside. Pt and family would like to go forward with ERCP during this admission. 2. ERCP planned for this . Hold Eliquis 3 days prior. Present on Admission?: Yes Supervising Physician Co-Signing Physician Notes I performed a history and physical examination of the patient, including specifically on physical exam - soft, nontender abdomen. I have discussed the patient's management with Mary. Please refer to the nurse practitioner's note for the documented findings and plan of care. 74 yrs old male patient admitted after a fall and management of pain related to multi level rib fractures. CT scan of the abdomen found incidental Choledocholithiasis. He reports intermittent RUQ biliary type abdominal pain. Labs showed mild elevation in ALP. Plan: ERCP on once Eliquis is held for 3 days. History of Present Illness Reason for Consultation: Choledocholithiasis Requesting Physician: Dr. Carey Attending Physician: Charissa Doty MD History of Present Illness Mr. Ray Cherry is a 74 ye old male pt of Dr. Perry with a hx of 74-year-old male with hx of DM-2, PVD, neuropathy, COPD, A-fib on Eliquis, CKD- 3, HTN, morbid obesity, GERD, BPH, bilat foot drop, osteoarthritis and Charcot- Fidelia Tooth disease. He fell yesterday and was brought to [facility] ED. GI is consulted for choledocholithiasis. The pt tells me that he has intermittent generalized abdominal pain, across both sides of the lower abdomen and also in the RUQ and epigastric area. He tells me that this pain is similar to when he had pancreatitis years ago. He is S/P distant cholecystectomy. He lives with his daughter Sharon. He does have ongoing constipation, present on imaging and recognized by the pt and family. He reports passing a BM about every 2-3 days. To address this, he just started using one Colace daily. On arrival, CT abd/pelvis and thoracic spine with acute fx of three ribs as well as old right sided rib fx. The CT also suggests fatty liver and distal bile duct choledocholithiasis. LFTs and lipase are normal. WBC is mildly elevated at 11. He denies any jaundice, icterus, dark urine or acholic stools. Allergies Allergy/AdvReac Type Severity Reaction Status Date / Time Penicillins Allergy Intermediate RASH Verified 07/29/19 14:54 Home Medications Home Medications Medication Instructions Recorded Confirmed Type albuterol sulfate [Ventolin HFA] 2 puff INHALATION Q6H PRN 01/06/19 07/29/19 History apixaban [Eliquis] 5 mg PO BID 01/06/19 07/29/19 History ascorbic acid (vitamin C) [Vitamin 1,000 mg PO DAILY 01/06/19 07/29/19 History C] aspirin 81 mg PO DAILY 01/06/19 07/29/19 History atorvastatin [Lipitor] 20 mg PO DAILY 01/06/19 07/29/19 History baclofen 10 mg PO DAILY 01/06/19 07/29/19 History celecoxib [Celebrex] 200 mg PO BID PRN 01/06/19 07/29/19 History cholecalciferol (vitamin D3) 5,000 unit PO DAILY 01/06/19 07/29/19 History [Vitamin D3] digoxin [Digox] 125 mcg PO DAILY 01/06/19 07/29/19 History empagliflozin [Jardiance] 10 mg PO DAILY 01/06/19 07/29/19 History fentanyl 1 patch TRANSDERMAL Q72H 01/06/19 07/29/19 History finasteride 5 mg PO DAILY 01/06/19 07/29/19 History glimepiride 4 mg PO QAM 01/06/19 07/29/19 History metformin 1,000 mg PO BID 01/06/19 07/29/19 History metoprolol succinate 12.5 mg PO BID 01/06/19 07/29/19 History omeprazole 40 mg PO DAILY 01/06/19 07/29/19 History oxycodone 10 mg PO Q6H PRN 01/06/19 07/29/19 History pregabalin [Lyrica] 25 mg PO TID 01/06/19 07/29/19 History ranitidine HCl 150 mg PO BID PRN 01/06/19 07/29/19 History B-complex with vitamin C [Super B 1 tab PO DAILY 07/19/19 07/29/19 History Complex-Vitamin C] fluticasone propion-salmeterol 1 inh INHALATION BID 07/19/19 07/29/19 History [Advair Diskus] furosemide 20 mg PO 3XWK 07/19/19 07/29/19 History omega 9-wuf-ome-fish oil [Fish Oil] 1 cap PO DAILY 07/19/19 07/29/19 History ramipril 5 mg PO BID 07/19/19 07/29/19 History varenicline [Chantix] 1 mg PO BID 07/19/19 07/29/19 History sulfamethoxazole-trimethoprim 1 tab PO BID 07/29/19 07/29/19 History [Bactrim DS] Patient History Social History Preferred Language: Russian Communication Ability: Effective Visual Impairment: Limited Hearing Ability: Hard of Hearing Horticultural Agent Required: No Beliefs That Will Affect Care: None marital status: Current Living Situation: Alone current occupational status: retired Feels Safe at Home: Yes Safety Concerns: Feels Safe At This Time Smoking Status: Former smoker packs per day: 0.5 ; Hx Alcohol Use: No Hx Substance Use: No Review of Systems Review of Systems: ROS: M/S: Right sided thoracic back pain since fall. Gen: Denies weakness, fevers, weight loss Eyes: No eye redness, or pain, no recent vision changes Resp: No SOB, no cough Cardio: No palpitations/irregular beats, no chest pain GI: + intermittent abdominal pain, see HPI. + constipation. No nausea/vomiting : Denies pain on urination Skin: No jaundice, itching or new rashes Physical Exam Constitutional: WD/WN, vitals as above + obese Eyes: PERRL, conjunctivae normal, anicteric sclerae ENMT: external ear and nose normal, oropharynx normal Neck: trachea midline, no thyromegaly Respiratory: normal respiratory effort, lungs clear to auscultation Though painful with deep breath, he is able to take deep breaths and no adventitious lung sounds are present. Cardiovascular: Rate/Rhythm: regular rate and regular rhythm Trace bilateral lower leg edema. Gastrointestinal (Abdomen): normal bowel sounds, soft, nontender, no hepatosplenomegaly large, soft, non tender abdomen (obese) Skin: no rashes, warm and dry Neurologic: PERRL, EOMI, accommodation nl, no face palsy, no dysarthria Psychiatric: A+Ox3, euthymic affect Lymphatic: no cervical or axillary lymphadenopathy Results & Data Vital Signs (Past 12 Hours) Vital Signs Temp Pulse Pulse Resp BP Pulse Ox 07/30/19 07:26 36.3 C L 76 18 126/74 93 07/30/19 04:31 36.4 C L 78 18 122/69 95 07/29/19 22:52 36.5 C 81 20 100/58 L 92 07/29/19 22:[address] with IV, no oral 07/29: Are acute nondistracted left lateral 7th and posterior 8th and 9th rib fractures. There are numerous chronic/healed right-sided rib fractures. No acute right-sided rib fracture is identified. Advanced arthritic change is seen in the partially visualized right shoulder. No lytic or blastic lesions are identified. THORACIC SPINE: Vertebral body height and alignment are maintained throughout the thoracic spine. There is no evidence of fracture or malalignment. Anterior osteophytes are seen throughout. The transverse and spinous processes are intact. There is mild multilevel degenerative disc space narrowing. There is no evidence of large disc herniation or high-grade central canal stenosis by CT. There is no evidence of high-grade neural foraminal stenosis. The paraspinous soft tissues are normal in appearance. ABDOMEN AND PELVIS: Liver: The contrast-enhanced liver is enlarged, measuring 23.6 cm in length. The liver demonstrates diffusely diminished attenuation consistent with hepatic steatosis. There is minimal central intrahepatic biliary ductal dilatation. The hepatic veins and portal veins are patent. Gallbladder: Surgically absent noting clips in the gallbladder fossa. There are intraluminal filling defects within the distal common bile duct near the pancreatic head (axial images #160 and #167). This is highly concerning for choledocholithiasis. US on 07/30/19: 1. Cholecystectomy. 2. Mild dilation of the common bile duct with previously questioned choledocholithiasis not appreciated by ultrasound. 3. Hepatomegaly with hepatic steatosis.
[2019-07-30 10:12] LABS: Bilirubin Direct 0.2 mg/dl (0-0.2); Bilirubin,Total 0.5 mg/dl (0.2-1)
[2019-07-30] MEDS: DIGOXIN 0.125 MG TAB PO SCH (16:57)
--- NOTE | 2019-07-30 18:25 | Hospitalist Progress Note ---
Date of Service July 30, 2019 Assessment & Plan (1) Multiple closed fractures of ribs of left side: S/p losing balance and fall cont pain control , insentive spirometry pt denies of any SOB , florez (2) Choledocholithiasis: incidental finding in CT abdomen /pelvis USG of liver shows , no stone in biliary duct appreciate input form GI recommends ERCP needs to hold Eliquis for 3 days prior to procedure diet ordered tolerating well no pain or discomfort on rt upper quadrant HX OF PAROXYSMAL AFIB: cont on Digoxin Eliquis on hold for possible ERCP on thrusday (3) Spinal stenosis, lumbar region with neurogenic claudication: Appreciate input from Spinal surgery Dr Conde Patient had a MRI from December 2017 of lumbar spine : demonstrate severe multilevel facet arthropathy with significant spinal stenosis at L3-4. repeat MRI ordered to assess new changes (4) Diabetes mellitus type 2, uncontrolled: cont Insulin SSI CODE STATUS : FULL CODE DVT prophylaxis : eliquis on hold ordered for SCD and teds encourage to ambulate DISPOSITION : expected to be discharged home when medically stable Subjective complains of tenderness and pain on left chest wall no cough no fever or chills diet advanced no nausea vomiting or abdominal pain Physical Exam Constitutional: WD/WN, vitals as above + obese Eyes: PERRL, conjunctivae normal, anicteric sclerae ENMT: external ear and nose normal, oropharynx normal Neck: trachea midline, no thyromegaly Respiratory: normal respiratory effort, lungs clear to auscultation Cardiovascular: Rate/Rhythm: regular rate and regular rhythm Gastrointestinal (Abdomen): normal bowel sounds, soft, nontender, no hepatosplenomegaly Skin: no rashes, warm and dry Neurologic: PERRL, EOMI, accommodation nl, no face palsy, no dysarthria Psychiatric: A+Ox3, euthymic affect Lymphatic: no cervical or axillary lymphadenopathy Results & Data Vital Signs (Past 12 Hours) Vital Signs Temp Pulse Pulse Resp BP Pulse Ox 07/30/19 16:57 80 07/30/19 15:40 95 07/30/19 14:29 36.4 C L 80 20 115/63 93 07/30/19 11:00 36.7 C 89 20 122/76 94 07/30/19 07:26 36.3 C L 76 18 126/74 93 (1) Multiple closed fractures of ribs of left side Encounter type: initial encounter Qualified Code(s): S22.42XA - Multiple fractures of ribs, left side, initial encounter for closed fracture
[2019-07-30] MEDS: HYDROmorphone INJ 1 MG/ML SYRINGE IV PRN (22:05)
[2019-07-31] MEDS: CHECK FENTANYL PATCH PLACEMENT SCH ×3 (00:05→15:18)
[2019-07-31] MEDS: HYDROmorphone INJ 1 MG/ML SYRINGE IV PRN ×4 (01:28→22:19)
--- NOTE | 2019-07-31 06:50 | Gastroenterology Progress Note ---
Date of Service July 31, 2019 Assessment & Plan (1) Choledocholithiasis: Pt with CT with distal bile duct stones and intermittent abdominal pain. 1. ERCP planned for this . 2. Continue to Hold Eliquis. 3. May have regular diet until dinner on 08/01 which should be clear liquids. Then NPO after midnight 08/01 for ERCP on 08/02. Supervising Physician Co-Signing Physician Notes I have discussed the patient's management with Mary. Please refer to the nurse practitioner's note for the documented findings and plan of care. Subjective Mr. Cherry is a 74 yr old male admitted for a fall. Findings of choledocholithiasis on imaging and pt reports intermittent biliary colic type pain. Plavix held. Plan is for ERCP on 08/02. Pt awake, alert, oriented. Tells me he has rib and back pain, no abdominal pain today. Review of Systems Review of Systems: ROS: M/S: Right sided thoracic back pain since fall. Gen: Denies weakness, fevers, weight loss Eyes: No eye redness, or pain, no recent vision changes Resp: No SOB, no cough Cardio: No palpitations/irregular beats, no chest pain GI: + intermittent abdominal pain, see HPI. + constipation. No nausea/vomiting : Denies pain on urination Skin: No jaundice, itching or new rashes Physical Exam Constitutional: WD/WN, vitals as above + obese Eyes: PERRL, conjunctivae normal, anicteric sclerae ENMT: external ear and nose normal, oropharynx normal Neck: trachea midline, no thyromegaly Respiratory: normal respiratory effort, lungs clear to auscultation Cardiovascular: Rate/Rhythm: regular rate and regular rhythm Gastrointestinal (Abdomen): normal bowel sounds, soft, nontender, no hepatosplenomegaly Skin: no rashes, warm and dry Neurologic: PERRL, EOMI, accommodation nl, no face palsy, no dysarthria Psychiatric: A+Ox3, euthymic affect Lymphatic: no cervical or axillary lymphadenopathy Results & Data Vital Signs (Past 12 Hours) Vital Signs Temp Pulse Pulse Resp BP Pulse Ox 07/30/19 23:23 36.5 C 78 20 123/71 94 07/30/19 19:04 80
[2019-07-31] MEDS: FLUTICASONE/SALMETEROL 250/50 (ADVAIR) 14 PUFF/1 INHALER INH SCH ×2 (08:01→21:16)
[2019-07-31] MEDS: VARENICLINE 1 MG TAB PO SCH ×2 (08:02→21:18)
[2019-07-31] MEDS: METOPROLOL SUCC 25MG EXT REL TAB PO SCH ×2 (08:02→21:17)
[2019-07-31] MEDS: ENALAPRIL MALEATE 10 MG TAB PO SCH ×2 (08:02→21:17)
[2019-07-31] MEDS: FUROSEMIDE 20 MG TAB PO SCH (08:02)
[2019-07-31] MEDS: PANTOprazole 40 MG TAB PO SCH (08:02)
[2019-07-31] MEDS: FINASTERIDE 5 MG TAB PO SCH (08:02)
[2019-07-31] MEDS: ASCORBIC ACID 500 MG TAB PO SCH (08:03)
[2019-07-31] MEDS: VITAMIN B COMPLEX TAB PO SCH (08:03)
[2019-07-31] MEDS: ATORVASTATIN 20 MG TAB PO SCH (08:03)
[2019-07-31] MEDS: SULFAMETHOXAZOLE/TRIMETHOPRIM DS 800/160MG TAB PO SCH ×2 (08:03→21:16)
[2019-07-31] MEDS: BACLOFEN 10 MG TAB PO SCH (08:04)
[2019-07-31] MEDS: POLYETHYLENE (MIRALAX) 17 GM PACK PO SCH (08:04)
[2019-07-31] MEDS: CHOLECALCIFEROL 1,000 UNITS TAB PO SCH (08:04)
[2019-07-31] MEDS: INSULIN GLARGINE SOLOSTAR 100 UNITS/ML 3 ML PEN SC SCH ×2 (08:05→21:19)
[2019-07-31] MEDS: INSULIN ASPART 100 UNITS/ML 3 ML PEN SC SCH ×4 (08:05→21:18)
[2019-07-31] MEDS: PREGABALIN 25 MG CAP PO SCH ×3 (08:10→21:22)
--- NOTE | 2019-07-31 10:16 | Orthopedic Consultation ---
Date of Consultation July 31, 2019 Assessment & Plan (1) Spinal stenosis, lumbar region with neurogenic claudication: Patient does have an MRI from December 2017 of lumbar spine available for review. Does demonstrate severe multilevel facet arthropathy with significant spinal stenosis at L3-4. I discussed with this patient updating MRI lumbar spine to review its findings and make further recommendations. Patient understands and agrees with this plan. Present on Admission?: Yes History of Present Illness Reason for Consultation: Patient is complaining of back pain and bilateral leg weakness. Attending Physician: Charissa Doty MD History of Present Illness This is a 74-year-old male known to me that presents with worsening back and bilateral leg pain. Is been admitted after a fall and having suffered some fractured ribs. He is other multiple medical issues he is being managed for. He states he is noticed a steady decline in his strength in his lower extremities. He does have a history of Charcot Fidelia tooth disease which complicates his presentation. Allergies Allergy/AdvReac Type Severity Reaction Status Date / Time Penicillins Allergy Intermediate RASH Verified 07/29/19 14:54 Home Medications Home Medications Medication Instructions Recorded Confirmed Type albuterol sulfate [Ventolin HFA] 2 puff INHALATION Q6H PRN 01/06/19 07/29/19 History apixaban [Eliquis] 5 mg PO BID 01/06/19 07/29/19 History ascorbic acid (vitamin C) [Vitamin 1,000 mg PO DAILY 01/06/19 07/29/19 History C] aspirin 81 mg PO DAILY 01/06/19 07/29/19 History atorvastatin [Lipitor] 20 mg PO DAILY 01/06/19 07/29/19 History baclofen 10 mg PO DAILY 01/06/19 07/29/19 History celecoxib [Celebrex] 200 mg PO BID PRN 01/06/19 07/29/19 History cholecalciferol (vitamin D3) 5,000 unit PO DAILY 01/06/19 07/29/19 History [Vitamin D3] digoxin [Digox] 125 mcg PO DAILY 01/06/19 07/29/19 History empagliflozin [Jardiance] 10 mg PO DAILY 01/06/19 07/29/19 History fentanyl 1 patch TRANSDERMAL Q72H 01/06/19 07/29/19 History finasteride 5 mg PO DAILY 01/06/19 07/29/19 History glimepiride 4 mg PO QAM 01/06/19 07/29/19 History metformin 1,000 mg PO BID 01/06/19 07/29/19 History metoprolol succinate 12.5 mg PO BID 01/06/19 07/29/19 History omeprazole 40 mg PO DAILY 01/06/19 07/29/19 History oxycodone 10 mg PO Q6H PRN 01/06/19 07/29/19 History pregabalin [Lyrica] 25 mg PO TID 01/06/19 07/29/19 History ranitidine HCl 150 mg PO BID PRN 01/06/19 07/29/19 History B-complex with vitamin C [Super B 1 tab PO DAILY 07/19/19 07/29/19 History Complex-Vitamin C] fluticasone propion-salmeterol 1 inh INHALATION BID 07/19/19 07/29/19 History [Advair Diskus] furosemide 20 mg PO 3XWK 07/19/19 07/29/19 History omega 4-kxf-ove-fish oil [Fish Oil] 1 cap PO DAILY 07/19/19 07/29/19 History ramipril 5 mg PO BID 07/19/19 07/29/19 History varenicline [Chantix] 1 mg PO BID 07/19/19 07/29/19 History sulfamethoxazole-trimethoprim 1 tab PO BID 07/29/19 07/29/19 History [Bactrim DS] Patient History Social History Preferred Language: Portuguese Communication Ability: Effective Visual Impairment: Limited Hearing Ability: Hard of Hearing Vacuum System Tester Required: No Beliefs That Will Affect Care: None marital status: Current Living Situation: Alone current occupational status: retired Feels Safe at Home: Yes Safety Concerns: Feels Safe At This Time Smoking Status: Former smoker packs per day: 0.5 ; Hx Alcohol Use: No Hx Substance Use: No Physical Exam Physical Exam: On exam he is in the chair at the bedside. He has weakness to plantar flexion dorsiflexion lower extremities. His quadriceps are 4-4+ or 5 bilaterally. Sensory intact. He is uncomfortable to palpation lumbosacral junction. Sensory is diminished bilaterally. Results & Data Vital Signs (Past 12 Hours) Vital Signs Temp Pulse Resp BP Pulse Ox 07/31/19 07:11 36.4 C L 77 20 118/67 95 07/30/19 23:23 36.5 C 78 20 123/71 94
[2019-07-31] MEDS: OXYCODONE HCL IR 5 MG TAB (IMMEDIATE RELEASE) PO PRN (12:18)
[2019-07-31] MEDS: DIGOXIN 0.125 MG TAB PO SCH (15:54)
--- NOTE | 2019-07-31 18:28 | Hospitalist Progress Note ---
Date of Service July 31, 2019 Assessment & Plan (1) Multiple closed fractures of ribs of left side: S/p losing balance and fall cont pain control , inc entive spirometry pt denies of any SOB , florez (2) Choledocholithiasis: incidental finding in CT abdomen /pelvis USG of liver shows , no stone in biliary duct appreciate input form GI pt has hx of intermittent rt upper quadrent colicky pain no symptom at present recommends ERCP needs to hold Eliquis for 3 days prior to procedure ( has been on hold since admission ) ERCP procedure scheduled for Thrusday HX OF PAROXYSMAL AFIB: cont on Digoxin Eliquis on hold for possible ERCP on thrusday (3) Spinal stenosis, lumbar region with neurogenic claudication: Appreciate input from Spinal surgery Dr Conde Patient had a MRI from December 2017 of lumbar spine : demonstrate severe multilevel facet arthropathy with significant spinal stenosis at L3-4. repeat MRI ordered to assess new changes (4) Diabetes mellitus type 2, uncontrolled: cont Insulin SSI CODE STATUS : FULL CODE DVT prophylaxis : eliquis on hold ordered for SCD and teds encourage to ambulate DISPOSITION : expected to be discharged home when medically stable Subjective no complain of abdominal pain or nausea still has left sided chest wall pain /rib pain while taking deep breath no cough no fever or chills Physical Exam Constitutional: WD/WN, vitals as above + obese Eyes: PERRL, conjunctivae normal, anicteric sclerae ENMT: external ear and nose normal, oropharynx normal Neck: trachea midline, no thyromegaly Respiratory: normal respiratory effort, lungs clear to auscultation Cardiovascular: Rate/Rhythm: regular rate and regular rhythm Gastrointestinal (Abdomen): normal bowel sounds, soft, nontender, no hepatosplenomegaly Skin: no rashes, warm and dry Neurologic: PERRL, EOMI, accommodation nl, no face palsy, no dysarthria Psychiatric: A+Ox3, euthymic affect Lymphatic: no cervical or axillary lymphadenopathy Results & Data Vital Signs (Past 12 Hours) Vital Signs Temp Pulse Pulse Resp BP Pulse Ox 07/31/19 15:54 78 07/31/19 15:01 36.5 C 78 20 101/62 93 07/31/19 07:11 36.4 C L 77 20 118/67 95 (1) Multiple closed fractures of ribs of left side Encounter type: initial encounter Qualified Code(s): S22.42XA - Multiple fractures of ribs, left side, initial encounter for closed fracture
[2019-07-31] MEDS: fentaNYL 25 MCG/HR TDSY TD SCH (21:55)
[2019-08-01] MEDS: CHECK FENTANYL PATCH PLACEMENT SCH ×3 (00:35→16:01)
[2019-08-01] MEDS: HYDROmorphone INJ 1 MG/ML SYRINGE IV PRN ×3 (04:14→17:33)
[2019-08-01] MEDS: OXYCODONE HCL IR 5 MG TAB (IMMEDIATE RELEASE) PO PRN ×3 (07:22→21:53)
[2019-08-01] MEDS: CHOLECALCIFEROL 1,000 UNITS TAB PO SCH (07:33)
[2019-08-01] MEDS: PREGABALIN 25 MG CAP PO SCH ×3 (07:33→20:50)
[2019-08-01] MEDS: VITAMIN B COMPLEX TAB PO SCH (07:33)
[2019-08-01] MEDS: METOPROLOL SUCC 25MG EXT REL TAB PO SCH ×2 (07:34→21:03)
[2019-08-01] MEDS: ENALAPRIL MALEATE 10 MG TAB PO SCH ×2 (07:34→21:03)
[2019-08-01] MEDS: POLYETHYLENE (MIRALAX) 17 GM PACK PO SCH (07:35)
[2019-08-01] MEDS: FINASTERIDE 5 MG TAB PO SCH (07:35)
[2019-08-01] MEDS: FLUTICASONE/SALMETEROL 250/50 (ADVAIR) 14 PUFF/1 INHALER INH SCH ×2 (07:35→20:52)
[2019-08-01] MEDS: SULFAMETHOXAZOLE/TRIMETHOPRIM DS 800/160MG TAB PO SCH ×2 (07:35→20:52)
[2019-08-01] MEDS: ATORVASTATIN 20 MG TAB PO SCH (07:35)
[2019-08-01] MEDS: BACLOFEN 10 MG TAB PO SCH (07:35)
[2019-08-01] MEDS: VARENICLINE 1 MG TAB PO SCH ×2 (07:35→20:51)
[2019-08-01] MEDS: PANTOprazole 40 MG TAB PO SCH (07:35)
[2019-08-01] MEDS: ASCORBIC ACID 500 MG TAB PO SCH (07:35)
[2019-08-01] MEDS: INSULIN ASPART 100 UNITS/ML 3 ML PEN SC SCH ×4 (09:15→20:56)
[2019-08-01] MEDS: INSULIN GLARGINE SOLOSTAR 100 UNITS/ML 3 ML PEN SC SCH ×2 (09:16→20:55)
--- NOTE | 2019-08-01 11:08 | Gastroenterology Progress Note ---
Date of Service August 01, 2019 Assessment & Plan (1) Choledocholithiasis: Pt with CT with distal bile duct stones and intermittent abdominal pain. 1. ERCP planned for tomorrow. 2. Continue to Hold Eliquis. 3. May have regular diet until dinner on 08/01, then NPO after midnight. T4. Pt is somewhat reluctant to go through with ERCP during this admission (OK with doing ERCP in 6 weeks). He is fearful that undergoing ERCP will cause more rib pain which we explained is unlikely. He agreed to be NPO after midnight, then tomorrow morning, with the help of his daughter (who is not available right now), decide for or against ERCP. Supervising Physician Co-Signing Physician Notes I performed a history and physical examination of the patient, including specifically on physical exam - soft, nontender abdomen. I have discussed the patient's management with Mary. Please refer to the nurse practitioner's note for the documented findings and plan of care. Tentative ERCP tomorrow. Subjective Recall that Mr. Ray Cherry is a 74 yr old male who presented for a fall, with rib fx's. Choledocholethiasis was seen on imaging and when pt was questioned he reported a hx of biliary colic type pain. Eliquis held (most recent dose 07/30) with plan for ERCP on 08/02. Pt's ribs more painful today. Review of Systems Review of Systems: ROS: M/S: Right sided thoracic back pain since fall. Gen: Denies weakness, fevers, weight loss Eyes: No eye redness, or pain, no recent vision changes Resp: No SOB, no cough Cardio: No palpitations/irregular beats, no chest pain GI: + intermittent abdominal pain, see HPI. + constipation. No nausea/vomiting : Denies pain on urination Skin: No jaundice, itching or new rashes Physical Exam Constitutional: WD/WN, vitals as above + obese Eyes: PERRL, conjunctivae normal, anicteric sclerae ENMT: external ear and nose normal, oropharynx normal Neck: trachea midline, no thyromegaly Respiratory: normal respiratory effort, lungs clear to auscultation Cardiovascular: Rate/Rhythm: regular rate and regular rhythm Gastrointestinal (Abdomen): normal bowel sounds, soft, nontender, no hepatosplenomegaly Skin: no rashes, warm and dry Neurologic: PERRL, EOMI, accommodation nl, no face palsy, no dysarthria Psychiatric: A+Ox3, euthymic affect Lymphatic: no cervical or axillary lymphadenopathy Results & Data Vital Signs (Past 12 Hours) Vital Signs Temp Pulse Pulse Resp BP Pulse Ox 08/01/19 07:30 36.5 C 74 16 113/72 93 07/31/19 23:09 36.8 C 80 16 96/62 L 94
[2019-08-01] MEDS: ACETAMINOPHEN 325 MG TAB PO PRN (15:53)
[2019-08-01] MEDS: DIGOXIN 0.125 MG TAB PO SCH (15:54)
--- NOTE | 2019-08-01 16:40 | Hospitalist Progress Note ---
Date of Service August 01, 2019 Assessment & Plan (1) Multiple closed fractures of ribs of left side: S/p losing balance and fall cont pain control , incentive spirometry pt denies of any SOB , florez Pain due to multiple rib fractures Pain more difficult to control, as patient has also history of chronic pain Says at home takes oxycodone, which has not been adequate while in the hospital IV Dilaudid was added and patient complains that also is inadequate Pain management consulted for their input Patient has been considering not to undergo ERCP tomorrow, he also declined MR today due to being uncomfortable/pain (2) Choledocholithiasis: incidental finding in CT abdomen /pelvis USG of liver shows , no stone in biliary duct appreciate input form GI pt has hx of intermittent rt upper quadrant colicky pain no symptom at present recommends ERCP needs to hold Eliquis for 3 days prior to procedure ( has been on hold since admission ) ERCP procedure scheduled for (08/02/2019) HX OF PAROXYSMAL AFIB: cont on Digoxin Eliquis on hold for possible ERCP on (3) Spinal stenosis, lumbar region with neurogenic claudication: Appreciate input from Spinal surgery Dr Conde Patient had a MRI from December 2017 of lumbar spine : demonstrate severe multilevel facet arthropathy with significant spinal stenosis at L3-4. repeat MRI ordered to assess new changes (4) Diabetes mellitus type 2, uncontrolled: cont Insulin SSI CODE STATUS : FULL CODE DVT prophylaxis : Eliquis on hold ordered for SCD and teds encourage to ambulate DISPOSITION : expected to be discharged home when medically stable Subjective Elderly male, lying in bed, appears uncomfortable due to pain. Patient says that he has a chronic pain but also now exacerbated with acute rib fractures. He cannot get comfortable and is even considering not to proceed with ERCP tomorrow. He otherwise denies any fevers, chills, shortness of breath, chest pain. He mostly has pain in his rib cage area and his joints. Patient then seen again by me in the evening, both patient's daughters present at the bedside. 1 of his daughters is RN working at endoscopy suite. She will be also present here in the morning, wondering about the pain management options/nerve block. Review of Systems Review of Systems: All systems reviewed & are unremarkable except as noted in HPI & below Constitutional: + body aches; no fever and no chills Respiratory: no cough and no dyspnea Cardiovascular: no chest pain, no dyspnea on exertion, no palpitations and no edema Gastrointestinal: no abdominal pain, no nausea and no vomiting Physical Exam Physical Exam: Constitutional: Elderly male lying in bed, appears uncomfortable due to pain, WD/WN + obese Eyes: PERRL, conjunctivae normal, anicteric sclerae ENMT: external ear and nose normal, oropharynx normal Neck: trachea midline, no thyromegaly Respiratory: normal respiratory effort, lungs clear to auscultation Cardiovascular: Rate/Rhythm: regular rate and regular rhythm Gastrointestinal (Abdomen): normal bowel sounds, soft, nontender, no hepatosplenomegaly Skin: warm and dry Neurologic: PERRL, EOMI, accommodation nl, no face palsy, no dysarthria Psychiatric: A+Ox3, euthymic affect Lymphatic: no cervical or axillary lymphadenopathy Results & Data Vital Signs (Past 12 Hours) Vital Signs Temp Pulse Pulse Resp BP BP Pulse Ox 08/01/19 15:54 75 08/01/19 15:23 36.4 C L 75 17 125/67 94 08/01/19 07:30 36.5 C 74 16 113/72 93 Laboratory Results 08/01/19 08/01/19 08/01/19 Range/Units 12:13 12:11 12:09 POC Glucose 295 H 247 H 301 H* (70-99) 08/01/19 07/31/19 Range/Units 08:54 20:23 POC Glucose 247 H 216 H (70-99) Medications Administered Current Inpatient Medications Acetaminophen (Tylenol) 650 mg PO Q4H PRN PRN Reason: Pain or Fever Stop: 08/28/19 20:34 Last Admin: 08/01/19 15:53 Dose: 650 mg Documented by: Albuterol (Ventolin Hfa) 2 puffs INH Q6H PRN PRN Reason: Shortness Of Breath Stop: 08/28/19 20:34 Ascorbic Acid (Vitamin C) 1,000 mg PO DAILY [facility] Stop: 08/29/19 08:59 Last Admin: 08/01/19 07:35 Dose: 1,000 mg Documented by: Atorvastatin Calcium (Lipitor) 20 mg PO DAILY [facility] Stop: 08/29/19 08:59 Last Admin: 08/01/19 07:35 Dose: 20 mg Documented by: Baclofen (Lioresal) 10 mg PO DAILY [facility] Stop: 08/29/19 08:59 Last Admin: 08/01/19 07:35 Dose: 10 mg Documented by: Dextrose (Dextrose 50%) 25 - 50 ml IV UD PRN; Protocol PRN Reason: Hypoglycemia Protocol Stop: 08/28/19 20:44 Digoxin (Lanoxin) 0.125 mg PO DAILY@1600 [facility] Stop: 08/28/19 20:34 Last Admin: 08/01/19 15:54 Dose: 0.125 mg Documented by: Enalapril Maleate (Vasotec) 20 mg PO BID [facility] Stop: 08/28/19 20:59 Last Admin: 08/01/19 07:34 Dose: 20 mg Documented by: Fentanyl (Duragesic) 25 mcg TD Q72H [facility] Stop: 08/14/19 21:44 Last Admin: 07/31/19 21:55 Dose: 25 mcg Documented by: Finasteride (Proscar) 5 mg PO DAILY [facility] Stop: 08/29/19 08:59 Last Admin: 08/01/19 07:35 Dose: 5 mg Documented by: Furosemide (Lasix) 20 mg PO TuThSa@0900 [facility] Stop: 08/30/19 08:59 Last Admin: 07/31/19 08:02 Dose: 20 mg Documented by: Glucagon (Glucagen) 1 mg IM UD PRN; Protocol PRN Reason: Hypoglycemia Protocol Stop: 08/28/19 20:44 Glucose (Glucose 40%) 15 - 30 gm PO UD PRN; Protocol PRN Reason: Hypoglycemia Protocol Stop: 08/28/19 20:44 Glucose (Dex4 Glucose) 4 - 8 tabs PO UD PRN; Protocol PRN Reason: Hypoglycemia Protocol Stop: 08/28/19 20:44 Hydromorphone HCl (Dilaudid) 2 mg IV Q5H PRN PRN Reason: Pain Stop: 08/14/19 20:41 Insulin Aspart (Novolog Flexpen) 0 units SC ACHS [facility] Stop: 08/28/19 20:59 Last Admin: 08/01/19 12:56 Dose: 12 units Documented by: Insulin Glargine (Lantus Solostar Pen) 5 units SC BID [facility] Stop: 08/28/19 20:59 Last Admin: 08/01/19 09:16 Dose: 5 units Documented by: Metoprolol Succinate (Toprol Xl) 12.5 mg PO BID [facility] Stop: 08/28/19 20:59 Last Admin: 08/01/19 07:34 Dose: 12.5 mg Documented by: Miscellaneous (Fentanyl Patch Check Placement) 1 ea N/A QS [facility] Stop: 08/29/19 00:00 Last Admin: 08/01/19 16:01 Dose: 1 ea Documented by: Miscellaneous (Carbohydrates For Hypoglycemia) 15 - 30 gm PO UD PRN PRN Reason: Hypoglycemia Treatment Stop: 08/28/19 20:44 Miscellaneous (Fentanyl Patch Remove & Waste) 1 ea N/A Q3D@2144 [facility] Stop: 08/30/19 21:43 Last Admin: 07/31/19 21:54 Dose: 1 ea Documented by: Nitroglycerin (Nitrostat) 0.4 mg SL UD PRN PRN Reason: Chest Pain Stop: 08/28/19 20:34 Ondansetron HCl (Zofran) 4 mg IV Q6H PRN PRN Reason: Nausea Stop: 08/28/19 20:34 Oxycodone HCl (Roxicodone Immediate Rel) 10 mg PO Q4 PRN PRN Reason: Pain Stop: 08/12/19 20:34 Last Admin: 08/01/19 13:00 Dose: 10 mg Documented by: Pantoprazole Sodium (Protonix) 40 mg PO DAILY [facility]; Protocol Stop: 08/29/19 08:59 Last Admin: 08/01/19 07:35 Dose: 40 mg Documented by: Polyethylene Glycol (Miralax Powder Packet) 17 gm PO DAILY [facility] Stop: 08/29/19 08:59 Last Admin: 08/01/19 07:35 Dose: 17 gm Documented by: Pregabalin (Lyrica) 25 mg PO TID [facility] Stop: 08/28/19 20:59 Last Admin: 08/01/19 13:00 Dose: 25 mg Documented by: Ranitidine HCl (Zantac) 150 mg PO BID PRN PRN Reason: Gastric Reflux Stop: 08/28/19 20:34 Fluticasone/Salmeterol (Advair Diskus 250/50) 1 puffs INH BID [facility] Stop: 08/28/19 20:59 Last Admin: 08/01/19 07:35 Dose: 1 puffs Documented by: Trimethoprim/Sulfamethoxazole (Septra Ds 800/160mg Tab) 1 tab PO BID [facility] Stop: 08/08/19 20:59 Last Admin: 08/01/19 07:35 Dose: 1 tab Documented by: Varenicline (Chantix) 1 mg PO BID [facility] Stop: 08/28/19 20:59 Last Admin: 08/01/19 07:35 Dose: 1 mg Documented by: Vitamin B Complex (Vitamin B Complex) 1 tab PO DAILY [facility] Stop: 08/29/19 08:59 Last Admin: 08/01/19 07:33 Dose: 1 tab Documented by: Vitamin D (Vitamin D3) 5,000 units PO DAILY [facility] Stop: 08/29/19 08:59 Last Admin: 08/01/19 07:33 Dose: 5,000 units Documented by: (1) Multiple closed fractures of ribs of left side Encounter type: initial encounter Qualified Code(s): S22.42XA - Multiple fractures of ribs, left side, initial encounter for closed fracture
--- NOTE | 2019-08-01 17:16 | Anesthesiology Consultation ---
Date of Service August 01, 2019 Assessment & Plan (1) Encounter for pre-operative examination: Chart Review Chart Review: Acceptable Risk for Surgery and carpentry specialist initiated Consults Requested none Additional Notes Repeat EKG ordered (Patient presented with a history of fall with rib fractures. By description, the fall sounds mechanical, but will order updated EKG for preoperative clearance.) In addition, will recheck PRP tomorrow morning due to last K being 5.1. Patient to be further evaluated by the attending anesthesiologist on the day of surgery. History Surgery Operation Date: 08/02/19 12:15 Proposed Procedures p Endoscopic Retrograde Cholangiopancreatogram - Anahy Hall MD Height/Weight Height: 5 ft 5 in Weight: 106 kg Allergies Allergy/AdvReac Type Severity Reaction Status Date / Time Penicillins Allergy Intermediate RASH Verified 07/29/19 14:54 Medications Home Medications Medication Instructions Recorded Confirmed Last Taken albuterol sulfate [Ventolin HFA] 2 puff INHALATION Q6H PRN 01/06/19 07/29/19 Unknown apixaban [Eliquis] 5 mg PO BID 01/06/19 07/29/19 07/19/19 5mg ascorbic acid (vitamin C) [Vitamin 1,000 mg PO DAILY 01/06/19 07/29/19 07/19/19 C] 1gm aspirin 81 mg PO DAILY 01/06/19 07/29/19 07/19/19 81mg atorvastatin [Lipitor] 20 mg PO DAILY 01/06/19 07/29/19 07/19/19 20mg baclofen 10 mg PO DAILY 01/06/19 07/29/19 07/19/19 10mg celecoxib [Celebrex] 200 mg PO BID PRN 01/06/19 07/29/19 Unknown cholecalciferol (vitamin D3) 5,000 unit PO DAILY 01/06/19 07/29/19 07/19/19 [Vitamin D3] digoxin [Digox] 125 mcg PO DAILY 01/06/19 07/29/19 07/19/19 empagliflozin [Jardiance] 10 mg PO DAILY 01/06/19 07/29/19 07/19/19 fentanyl 1 patch TRANSDERMAL Q72H 01/06/19 07/29/19 07/19/19 finasteride 5 mg PO DAILY 01/06/19 07/29/19 07/19/19 glimepiride 4 mg PO QAM 01/06/19 07/29/19 07/19/19 metformin 1,000 mg PO BID 01/06/19 07/29/19 07/19/19 1gm metoprolol succinate 12.5 mg PO BID 01/06/19 07/29/19 07/19/19 12.5mg omeprazole 40 mg PO DAILY 01/06/19 07/29/19 07/19/19 oxycodone 10 mg PO Q6H PRN 01/06/19 07/29/19 07/19/19 pregabalin [Lyrica] 25 mg PO TID 01/06/19 07/29/19 07/19/19 25mg ranitidine HCl 150 mg PO BID PRN 01/06/19 07/29/19 Unknown B-complex with vitamin C [Super B 1 tab PO DAILY 07/19/19 07/29/19 07/19/19 Complex-Vitamin C] fluticasone propion-salmeterol 1 inh INHALATION BID 07/19/19 07/29/19 07/19/19 [Advair Diskus] 1puff furosemide 20 mg PO 3XWK 07/19/19 07/29/19 07/19/19 omega 3-[id number]-[id number]-fish oil [Fish Oil] 1 cap PO DAILY 07/19/19 07/29/19 07/19/19 ramipril 5 mg PO BID 07/19/19 07/29/19 07/19/19 varenicline [Chantix] 1 mg PO BID 07/19/19 07/29/19 07/19/19 1mg sulfamethoxazole-trimethoprim 1 tab PO BID 07/29/19 07/29/19 Unknown [Bactrim DS] Active Medications Generic Name Dose Route Start Last Admin Trade Name Freq PRN Reason Stop Dose Admin Acetaminophen 650 mg 07/29/19 20:35 08/01/19 15:53 Tylenol PO 08/28/19 20:34 650 mg Q4H PRN Administration Pain or Fever Ascorbic Acid 1,000 mg 07/30/19 09:00 08/01/19 07:35 Vitamin C PO 08/29/19 08:59 1,000 mg DAILY [facility] Administration Atorvastatin Calcium 20 mg 07/30/19 09:00 08/01/19 07:35 Lipitor PO 08/29/19 08:59 20 mg DAILY [facility] Administration Baclofen 10 mg 07/30/19 09:00 08/01/19 07:35 Lioresal PO 08/29/19 08:59 10 mg DAILY [facility] Administration Digoxin 0.125 mg 07/29/19 20:35 08/01/19 15:54 Lanoxin PO 08/28/19 20:34 0.125 mg DAILY@1600 [facility] Administration Enalapril Maleate 20 mg 07/29/19 21:00 08/01/19 07:34 Vasotec PO 08/28/19 20:59 20 mg BID [facility] Administration Fentanyl 25 mcg 07/31/19 21:45 07/31/19 21:55 Duragesic TD 08/14/19 21:44 25 mcg Q72H [facility] Administration Finasteride 5 mg 07/30/19 09:00 08/01/19 07:35 Proscar PO 08/29/19 08:59 5 mg DAILY [facility] Administration Furosemide 20 mg 07/31/19 09:00 07/31/19 08:02 Lasix PO 08/30/19 08:59 20 mg TuThSa@0900 [facility] Administration Hydromorphone HCl 2 mg 08/01/19 16:39 08/01/19 17:33 Dilaudid IV 08/14/19 20:41 2 mg Q5H PRN Administration Pain Insulin Aspart 0 units 07/29/19 21:00 08/01/19 12:56 Novolog Flexpen SC 08/28/19 20:59 12 units ACHS [facility] Administration Insulin Glargine 5 units 07/29/19 21:00 08/01/19 09:16 Lantus Solostar Pen SC 08/28/19 20:59 5 units BID [facility] Administration Metoprolol Succinate 12.5 mg 07/29/19 21:00 08/01/19 07:34 Toprol Xl PO 08/28/19 20:59 12.5 mg BID [facility] Administration Miscellaneous 1 ea 07/30/19 00:00 08/01/19 16:01 Fentanyl Patch Check Placement N/A 08/29/19 00:00 1 ea QS [facility] Administration Miscellaneous 1 ea 07/31/19 21:44 07/31/19 21:54 Fentanyl Patch Remove & Waste N/A 08/30/19 21:43 1 ea Q3D@2144 [facility] Administration Oxycodone HCl 10 mg 07/30/19 18:39 08/01/19 13:00 Roxicodone Immediate Rel PO 08/12/19 20:34 10 mg Q4 PRN Administration Pain Pantoprazole Sodium 40 mg 07/30/19 09:00 08/01/19 07:35 Protonix PO 08/29/19 08:59 40 mg DAILY [facility] Administration Protocol Polyethylene Glycol 17 gm 07/30/19 09:00 08/01/19 07:35 Miralax Powder Packet PO 08/29/19 08:59 17 gm DAILY [facility] Administration Pregabalin 25 mg 07/29/19 21:00 08/01/19 13:00 Lyrica PO 08/28/19 20:59 25 mg TID [facility] Administration Fluticasone/Salmeterol 1 puffs 07/29/19 21:00 08/01/19 07:35 Advair Diskus 250/50 INH 08/28/19 20:59 1 puffs BID [facility] Administration Trimethoprim/Sulfamethoxazole 1 tab 07/29/19 21:00 08/01/19 07:35 Septra Ds 800/160mg Tab PO 08/08/19 20:59 1 tab BID [facility] Administration Varenicline 1 mg 07/29/19 21:00 08/01/19 07:35 Chantix PO 08/28/19 20:59 1 mg BID [facility] Administration Vitamin B Complex 1 tab 07/30/19 09:00 08/01/19 07:33 Vitamin B Complex PO 08/29/19 08:59 1 tab DAILY [facility] Administration Vitamin D 5,000 units 07/30/19 09:00 08/01/19 07:33 Vitamin D3 PO 08/29/19 08:59 5,000 units DAILY [facility] Administration Past Medical History Medical History Spinal stenosis, lumbar region with neurogenic claudication Choledocholithiasis Multiple closed fractures of ribs of left side (Acute) Diabetic peripheral neuropathy associated with type 2 diabetes mellitus (Chronic) Gastroesophageal reflux disease (Acute) Hypertensive heart disease (Acute) Tobacco user (Acute 09/27/11) COPD (chronic obstructive pulmonary disease) (Chronic) Hyperlipidemia (Chronic) CMT (Dupeydi-Olfzq-Bpdvi disease) (Chronic) Acquired claw toe of right foot (Acute) Acquired hallux valgus of right foot (Acute) Diabetes mellitus with diabetic polyneuropathy (Acute) Hallux valgus (acquired), left foot (Acute) Left foot drop (Acute) Right foot drop (Acute) Past Family History Family History Other COPD (chronic obstructive pulmonary disease) Coronary heart disease Past Surgical History Surgical History Hx of tonsillectomy (Chronic) S/P cervical spinal fusion (Chronic) Status post cholecystectomy (Chronic) S/P cataract extraction (Acute) S/P foot surgery, right (Acute) Social History Smoking Status: Former smoker Hx Alcohol Use: No Hx Substance Use: No Physical Exam Vital Signs Last Vital Signs Temp 36.4 C L 08/01/19 15:23 Pulse 75 08/01/19 15:54 Resp 17 08/01/19 15:23 BP 125/67 08/01/19 15:23 Pulse Ox 94 08/01/19 15:23 Testing Laboratory Results 07/30/19 05:19 07/30/19 05:19 PT 10.8 Seconds (9.0-12.0) 07/29/19 15:20 INR 1.1 (0.9-1.1) 07/29/19 15:20 APTT 29.5 Seconds (21.0-31.0) 07/29/19 15:20 Hemoglobin A1c 10.3 % (4.5-5.6) H 07/30/19 05:19 08/01/19 08/01/19 08/01/19 12:13 12:11 12:09 POC Glucose 295 H 247 H 301 H* 08/01/19 08:54 POC Glucose 247 H Electrocardiogram Date: 01/06/19 A.Flutter (rate of 86), Left anterior fascicular block, Inferior infarct , age undetermined, Anterolateral infarct , age undetermined, When compared with ECG of 30-APR-2018 07:35, Atrial flutter has replaced Atrial fibrillation Echocardiogram Date: 03/23/19 EF: 55-60% LV Function: normal moderate aortic valve sclerosis without significant stenosis, grade 1 diastolic dysfunction Other Testing 07/29/19 - Chest CT IMPRESSION: 1. There are acute nondistracted left 7th, 8th, and 9th rib fractures as above. 2. Cardiomegaly and emphysema. 3. There is no airspace consolidation, pleural effusion, or pneumothorax. 4. There is no evidence of fracture or malalignment involving the thoracic spine. 5. There is no evidence of solid organ injury in the abdomen or pelvis. 6. Hepatomegaly and hepatic steatosis. 7. 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 This is been slowly growing dating back to at least 2 009. 8. Findings are highly concerning for choledocholithiasis. Follow-up with GI is recommended. 9. Right-sided nephrolithiasis. 10. Additional findings as above.
[2019-08-02] MEDS: CHECK FENTANYL PATCH PLACEMENT SCH ×3 (00:16→17:32)
[2019-08-02] MEDS: HYDROmorphone INJ 1 MG/ML SYRINGE IV PRN ×2 (00:25→08:40)
[2019-08-02] MEDS ORDERED: Nursing to Pharmacy Communication ONE ×2 (01:50→19:00)
[2019-08-02] MEDS: INSULIN ASPART 100 UNITS/ML 3 ML PEN SC SCH ×4 (02:44→18:50)
[2019-08-02] MEDS: OXYCODONE HCL IR 5 MG TAB (IMMEDIATE RELEASE) PO PRN ×2 (03:01→16:48)
[2019-08-02] MEDS: ACETAMINOPHEN 325 MG TAB PO PRN (05:18)
[2019-08-02 06:26] LABS: Basophils # (auto) 0.03 K/uL (0-0.2); Basophils % (auto) 0.2 %; Eosinophils # (auto) 0.08 K/uL (0-0.5); Eosinophils % (auto) 0.6 %; Hematocrit (blood only) 42.8 % (42-52); Hemoglobin 14.2 g/dL (14.0-18.0); Immature Granulocytes # (auto) 0.05 K/uL (0.00-0.02); Immature Granulocytes % (auto) 0.3 %; Lymphocytes # (auto) 1.73 K/uL (1.2-3.4); Lymphocytes % (auto) 12.1 %; Mean Corpuscular Hemoglobin 29.3 pg (25-34); Mean Corpuscular Hgb Conc 33.2 g/dL (32-36); Mean Corpuscular Volume 88.4 fL (80-100); Mean Platelet Volume 11.7 fL (7.4-10.4); Monocytes # (auto) 1.05 K/uL (0.11-0.59); Monocytes % (auto) 7.3 %; Neutrophils # (auto) 11.35 K/uL (1.4-6.5); Neutrophils % (auto) 79.5 %; Platelet Count 202 K/uL (130-400); RDW Coefficient of Variation 17.3 % (11.5-14.5); RDW Standard Deviation 56.1 fL (36.4-46.3); Red Blood Count 4.84 M/uL (4.7-6.1); White Blood Count 14.29 K/uL (4.8-10.8)
[2019-08-02 06:52] LABS: BUN Creatinine Ratio 34.6 (10-20); Calcium 9.4 mg/dl (8.5-10.1); Est GFR (African American) 71.8; Est GFR (Non-African American) 61.9
--- NOTE | 2019-08-02 07:43 | Hospitalist Progress Note ---
Date of Service August 02, 2019 Assessment & Plan (1) Multiple closed fractures of ribs of left side: Osteoporosis with current osteoporotic fracture of L sided ribs S/p losing balance and fall cont pain control , incentive spirometry pt denies of any SOB , florez Pain due to multiple rib fractures Pain more difficult to control, as patient has also history of chronic pain Says at home takes oxycodone, which has not been adequate while in the hospital, pain management was consulted, and recommended to increase his oxycodone to 10 to 20 mg every 4 hours as needed cont. IV Dilaudid as needed for now Pain management consulted for their input, plan for nerve block tomorrow 8 AM (08/03/2019) (2) Choledocholithiasis: incidental finding in CT abdomen /pelvis USG of liver shows , no stone in biliary duct appreciate input form GI pt has hx of intermittent rt upper quadrant colicky pain no symptom at present recommends ERCP needs to hold Eliquis for 3 days prior to procedure ( has been on hold since admission ) ERCP procedure scheduled for today (08/02/2019) HX OF PAROXYSMAL AFIB: cont on Digoxin Eliquis on hold for possible ERCP on (3) Spinal stenosis, lumbar region with neurogenic claudication: Appreciate input from Spinal surgery Dr Conde Patient had a MRI from December 2017 of lumbar spine : demonstrate severe multilevel facet arthropathy with significant spinal stenosis at L3-4. repeat MRI ordered to assess new changes (patient declined the study as he was in too much pain, plan for nerve block and pain meds adjustment) (4) Diabetes mellitus type 2, uncontrolled: cont Insulin SSI CODE STATUS : FULL CODE DVT prophylaxis : Eliquis on hold ordered for SCD and teds encourage to ambulate DISPOSITION : will obtain PT/OT after his procedures, for now, expected to be discharged home when medically stable Subjective No acute events overnight. Patient is still complaining of pain especially in his rib cage area due to multiple rib fracture. Plan for ERCP later today. Pain management also evaluated the patient, plan for nerve block tomorrow a.m. also will increase his oxycodone to 15 mg every 4 hours as needed. Currently patient denies any fevers, chills, nausea, vomiting, increased abdominal pain. Both of patient's daughters are present at the bedside, and aware of all the updates. Review of Systems Review of Systems: All systems reviewed & are unremarkable except as noted in HPI & below Constitutional: + body aches; no fever and no chills Respiratory: no cough and no dyspnea Cardiovascular: no palpitations and no edema Gastrointestinal: no abdominal pain, no nausea and no vomiting Physical Exam Physical Exam: Physical Exam: Constitutional: Elderly male lying in bed, appears uncomfortable due to pain, WD/WN + obese Eyes: PERRL, conjunctivae normal, anicteric sclerae ENMT: external ear and nose normal, oropharynx normal Neck: trachea midline, no thyromegaly Respiratory: normal respiratory effort, lungs clear to auscultation Cardiovascular: Rate/Rhythm: regular rate and regular rhythm Gastrointestinal (Abdomen): normal bowel sounds, soft, nontender, no guarding Skin: warm and dry Neurologic: PERRL, EOMI, accommodation nl, no face palsy, no dysarthria Psychiatric: A+Ox3, euthymic affect Lymphatic: no cervical or axillary lymphadenopathy Results & Data Vital Signs (Past 12 Hours) Vital Signs Temp Pulse Resp BP Pulse Ox 08/01/19 23:06 36.5 C 75 16 126/65 94 Laboratory Results 08/02/19 08/02/19 08/02/19 Range/Units 05:57 05:57 05:19 WBC 14.29 H (4.8-10.8) K/uL RBC 4.84 (4.7-6.1) M/uL Hgb 14.2 (14.0-18.0) g/dL Hct 42.8 (42-52) % MCV 88.4 (80-100) fL MCH 29.3 (25-34) pg MCHC 33.2 (32-36) g/dL RDW Std Deviation 56.1 H (36.4-46.3) fL RDW Coeff of Naomi 17.3 H (11.5-14.5) % Plt Count 202 (130-400) K/uL MPV 11.7 H (7.4-10.4) fL Immature Gran % (Auto) 0.3 % Neut % (Auto) 79.5 % Lymph % (Auto) 12.1 % [place] % (Auto) 7.3 % Eos % (Auto) 0.6 % Baso % (Auto) 0.2 % Immature Gran # (Auto) 0.05 H (0.00-0.02) K/uL Neut # (Auto) 11.35 H (1.4-6.5) K/uL Lymph # (Auto) 1.73 (1.2-3.4) K/uL [place] # (Auto) 1.05 H (0.11-0.59) K/uL Eos # (Auto) 0.08 (0-0.5) K/uL Baso # (Auto) 0.03 (0-0.2) K/uL Sodium 129 L (136-145) mmol/L Potassium 5.0 (3.5-5.1) mmol/L Chloride 99 (98-107) mmol/L Carbon Dioxide 23 (21-32) mmol/L Anion Gap 7.0 (3-11) BUN 40 H (7-18) mg/dl Creatinine 1.17 (0.6-1.4) mg/dl Est Cr Clr Drug Dosing 64.0 ml/min Est GFR ( Amer) 71.8 Est GFR (Non-Af Amer) 61.9 BUN/Creatinine Ratio 34.6 H (10-20) Glucose 208 H (70-99) mg/dl POC Glucose 193 H (70-99) Calcium 9.4 (8.5-10.1) mg/dl 08/02/19 08/01/19 08/01/19 Range/Units 02:42 20:29 18:29 WBC (4.8-10.8) K/uL RBC (4.7-6.1) M/uL Hgb (14.0-18.0) g/dL Hct (42-52) % MCV (80-100) fL MCH (25-34) pg MCHC (32-36) g/dL RDW Std Deviation (36.4-46.3) fL RDW Coeff of Naomi (11.5-14.5) % Plt Count (130-400) K/uL MPV (7.4-10.4) fL Immature Gran % (Auto) % Neut % (Auto) % Lymph % (Auto) % [place] % (Auto) % Eos % (Auto) % Baso % (Auto) % Immature Gran # (Auto) (0.00-0.02) K/uL Neut # (Auto) (1.4-6.5) K/uL Lymph # (Auto) (1.2-3.4) K/uL [place] # (Auto) (0.11-0.59) K/uL Eos # (Auto) (0-0.5) K/uL Baso # (Auto) (0-0.2) K/uL Sodium (136-145) mmol/L Potassium (3.5-5.1) mmol/L Chloride (98-107) mmol/L Carbon Dioxide (21-32) mmol/L Anion Gap (3-11) BUN (7-18) mg/dl Creatinine (0.6-1.4) mg/dl Est Cr Clr Drug Dosing ml/min Est GFR ( Amer) Est GFR (Non-Af Amer) BUN/Creatinine Ratio (10-20) Glucose (70-99) mg/dl POC Glucose 200 H 222 H 221 H (70-99) Calcium (8.5-10.1) mg/dl 08/01/19 08/01/19 08/01/19 Range/Units 12:13 12:11 12:09 WBC (4.8-10.8) K/uL RBC (4.7-6.1) M/uL Hgb (14.0-18.0) g/dL Hct (42-52) % MCV (80-100) fL MCH (25-34) pg MCHC (32-36) g/dL RDW Std Deviation (36.4-46.3) fL RDW Coeff of Naomi (11.5-14.5) % Plt Count (130-400) K/uL MPV (7.4-10.4) fL Immature Gran % (Auto) % Neut % (Auto) % Lymph % (Auto) % [place] % (Auto) % Eos % (Auto) % Baso % (Auto) % Immature Gran # (Auto) (0.00-0.02) K/uL Neut # (Auto) (1.4-6.5) K/uL Lymph # (Auto) (1.2-3.4) K/uL [place] # (Auto) (0.11-0.59) K/uL Eos # (Auto) (0-0.5) K/uL Baso # (Auto) (0-0.2) K/uL Sodium (136-145) mmol/L Potassium (3.5-5.1) mmol/L Chloride (98-107) mmol/L Carbon Dioxide (21-32) mmol/L Anion Gap (3-11) BUN (7-18) mg/dl Creatinine (0.6-1.4) mg/dl Est Cr Clr Drug Dosing ml/min Est GFR ( Amer) Est GFR (Non-Af Amer) BUN/Creatinine Ratio (10-20) Glucose (70-99) mg/dl POC Glucose 295 H 247 H 301 H* (70-99) Calcium (8.5-10.1) mg/dl 08/01/19 Range/Units 08:54 WBC (4.8-10.8) K/uL RBC (4.7-6.1) M/uL Hgb (14.0-18.0) g/dL Hct (42-52) % MCV (80-100) fL MCH (25-34) pg MCHC (32-36) g/dL RDW Std Deviation (36.4-46.3) fL RDW Coeff of Naomi (11.5-14.5) % Plt Count (130-400) K/uL MPV (7.4-10.4) fL Immature Gran % (Auto) % Neut % (Auto) % Lymph % (Auto) % [place] % (Auto) % Eos % (Auto) % Baso % (Auto) % Immature Gran # (Auto) (0.00-0.02) K/uL Neut # (Auto) (1.4-6.5) K/uL Lymph # (Auto) (1.2-3.4) K/uL [place] # (Auto) (0.11-0.59) K/uL Eos # (Auto) (0-0.5) K/uL Baso # (Auto) (0-0.2) K/uL Sodium (136-145) mmol/L Potassium (3.5-5.1) mmol/L Chloride (98-107) mmol/L Carbon Dioxide (21-32) mmol/L Anion Gap (3-11) BUN (7-18) mg/dl Creatinine (0.6-1.4) mg/dl Est Cr Clr Drug Dosing ml/min Est GFR ( Amer) Est GFR (Non-Af Amer) BUN/Creatinine Ratio (10-20) Glucose (70-99) mg/dl POC Glucose 247 H (70-99) Calcium (8.5-10.1) mg/dl Medications Administered Current Inpatient Medications Acetaminophen (Tylenol) 650 mg PO Q4H PRN PRN Reason: Pain or Fever Stop: 08/28/19 20:34 Last Admin: 08/02/19 05:18 Dose: 650 mg Documented by: Albuterol (Ventolin Hfa) 2 puffs INH Q6H PRN PRN Reason: Shortness Of Breath Stop: 08/28/19 20:34 Ascorbic Acid (Vitamin C) 1,000 mg PO DAILY [facility] Stop: 08/29/19 08:59 Last Admin: 08/01/19 07:35 Dose: 1,000 mg Documented by: Atorvastatin Calcium (Lipitor) 20 mg PO DAILY [facility] Stop: 08/29/19 08:59 Last Admin: 08/01/19 07:35 Dose: 20 mg Documented by: Baclofen (Lioresal) 10 mg PO DAILY [facility] Stop: 08/29/19 08:59 Last Admin: 08/01/19 07:35 Dose: 10 mg Documented by: Dextrose (Dextrose 50%) 25 - 50 ml IV UD PRN; Protocol PRN Reason: Hypoglycemia Protocol Stop: 08/28/19 20:44 Digoxin (Lanoxin) 0.125 mg PO DAILY@1600 [facility] Stop: 08/28/19 20:34 Last Admin: 08/01/19 15:54 Dose: 0.125 mg Documented by: Enalapril Maleate (Vasotec) 20 mg PO BID [facility] Stop: 08/28/19 20:59 Last Admin: 08/01/19 21:03 Dose: Not Given Documented by: Fentanyl (Duragesic) 25 mcg TD Q72H [facility] Stop: 08/14/19 21:44 Last Admin: 07/31/19 21:55 Dose: 25 mcg Documented by: Finasteride (Proscar) 5 mg PO DAILY [facility] Stop: 08/29/19 08:59 Last Admin: 08/01/19 07:35 Dose: 5 mg Documented by: Furosemide (Lasix) 20 mg PO TuThSa@0900 [facility] Stop: 08/30/19 08:59 Last Admin: 07/31/19 08:02 Dose: 20 mg Documented by: Glucagon (Glucagen) 1 mg IM UD PRN; Protocol PRN Reason: Hypoglycemia Protocol Stop: 12/03/19 20:44 Glucose (Glucose 40%) 15 - 30 gm PO UD PRN; Protocol PRN Reason: Hypoglycemia Protocol Stop: 08/28/19 20:44 Glucose (Dex4 Glucose) 4 - 8 tabs PO UD PRN; Protocol PRN Reason: Hypoglycemia Protocol Stop: 08/28/19 20:44 Hydromorphone HCl (Dilaudid) 2 mg IV Q5H PRN PRN Reason: Pain Stop: 08/14/19 20:41 Last Admin: 08/02/19 00:25 Dose: 2 mg Documented by: Insulin Aspart (Novolog Flexpen) 0 units SC Q6 [facility] Stop: 09/01/19 01:59 Last Admin: 08/02/19 05:20 Dose: 2 units Documented by: Insulin Glargine (Lantus Solostar Pen) 5 units SC BID [facility] Stop: 08/28/19 20:59 Last Admin: 08/01/19 20:55 Dose: 5 units Documented by: Metoprolol Succinate (Toprol Xl) 12.5 mg PO BID [facility] Stop: 08/28/19 20:59 Last Admin: 08/01/19 21:03 Dose: Not Given Documented by: Miscellaneous (Fentanyl Patch Check Placement) 1 ea N/A QS [facility] Stop: 08/29/19 00:00 Last Admin: 08/02/19 00:16 Dose: 1 ea Documented by: Miscellaneous (Carbohydrates For Hypoglycemia) 15 - 30 gm PO UD PRN PRN Reason: Hypoglycemia Treatment Stop: 08/28/19 20:44 Miscellaneous (Fentanyl Patch Remove & Waste) 1 ea N/A Q3D@2144 [facility] Stop: 08/30/19 21:43 Last Admin: 07/31/19 21:54 Dose: 1 ea Documented by: Nitroglycerin (Nitrostat) 0.4 mg SL UD PRN PRN Reason: Chest Pain Stop: 08/28/19 20:34 Ondansetron HCl (Zofran) 4 mg IV Q6H PRN PRN Reason: Nausea Stop: 08/28/19 20:34 Oxycodone HCl (Roxicodone Immediate Rel) 10 mg PO Q4 PRN PRN Reason: Pain Stop: 08/12/19 20:34 Last Admin: 08/02/19 03:01 Dose: 10 mg Documented by: Pantoprazole Sodium (Protonix) 40 mg PO DAILY [facility]; Protocol Stop: 08/29/19 08:59 Last Admin: 08/01/19 07:35 Dose: 40 mg Documented by: Polyethylene Glycol (Miralax Powder Packet) 17 gm PO DAILY [facility] Stop: 08/29/19 08:59 Last Admin: 08/01/19 07:35 Dose: 17 gm Documented by: Pregabalin (Lyrica) 25 mg PO TID [facility] Stop: 08/28/19 20:59 Last Admin: 08/01/19 20:50 Dose: 25 mg Documented by: Ranitidine HCl (Zantac) 150 mg PO BID PRN PRN Reason: Gastric Reflux Stop: 08/28/19 20:34 Fluticasone/Salmeterol (Advair Diskus 250/50) 1 puffs INH BID [facility] Stop: 08/28/19 20:59 Last Admin: 08/01/19 20:52 Dose: 1 puffs Documented by: Trimethoprim/Sulfamethoxazole (Septra Ds 800/160mg Tab) 1 tab PO BID [facility] Stop: 08/08/19 20:59 Last Admin: 08/01/19 20:52 Dose: 1 tab Documented by: Varenicline (Chantix) 1 mg PO BID [facility] Stop: 08/28/19 20:59 Last Admin: 08/01/19 20:51 Dose: 1 mg Documented by: Vitamin B Complex (Vitamin B Complex) 1 tab PO DAILY [facility] Stop: 08/29/19 08:59 Last Admin: 08/01/19 07:33 Dose: 1 tab Documented by: Vitamin D (Vitamin D3) 5,000 units PO DAILY [facility] Stop: 08/29/19 08:59 Last Admin: 08/01/19 07:33 Dose: 5,000 units Documented by: (1) Multiple closed fractures of ribs of left side Encounter type: initial encounter Qualified Code(s): S22.42XA - Multiple fractures of ribs, left side, initial encounter for closed fracture
[2019-08-02] MEDS: FLUTICASONE/SALMETEROL 250/50 (ADVAIR) 14 PUFF/1 INHALER INH SCH ×2 (08:31→20:37)
[2019-08-02] MEDS: ATORVASTATIN 20 MG TAB PO SCH (08:31)
[2019-08-02] MEDS: CHOLECALCIFEROL 1,000 UNITS TAB PO SCH (08:31)
[2019-08-02] MEDS: METOPROLOL SUCC 25MG EXT REL TAB PO SCH ×2 (08:31→20:42)
[2019-08-02] MEDS: BACLOFEN 10 MG TAB PO SCH (08:31)
[2019-08-02] MEDS: ENALAPRIL MALEATE 10 MG TAB PO SCH ×2 (08:32→20:43)
[2019-08-02] MEDS: VARENICLINE 1 MG TAB PO SCH ×2 (08:32→20:38)
[2019-08-02] MEDS: VITAMIN B COMPLEX TAB PO SCH (08:32)
[2019-08-02] MEDS: ASCORBIC ACID 500 MG TAB PO SCH (08:32)
[2019-08-02] MEDS: SULFAMETHOXAZOLE/TRIMETHOPRIM DS 800/160MG TAB PO SCH ×2 (08:32→20:38)
[2019-08-02] MEDS: PANTOprazole 40 MG TAB PO SCH (08:33)
[2019-08-02] MEDS: FINASTERIDE 5 MG TAB PO SCH (08:33)
[2019-08-02] MEDS: PREGABALIN 25 MG CAP PO SCH ×3 (08:40→20:37)
[2019-08-02] MEDS: FUROSEMIDE 20 MG TAB PO SCH (08:42)
[2019-08-02] MEDS: INSULIN GLARGINE SOLOSTAR 100 UNITS/ML 3 ML PEN SC SCH ×3 (09:42→20:45)
--- NOTE | 2019-08-02 11:05 | Pain Management Consultation ---
Date of Consultation August 02, 2019 Assessment & Plan (1) Multiple closed fractures of ribs of left side: Encounter type: initial encounter Qualified Code(s): S22.42XA - Multiple fractures of ribs, left side, initial encounter for closed fracture Present on Admission?: Yes (2) CMT (Ksrgsms-Jfaon-Jrjaf disease): Present on Admission?: Yes (3) Cellulitis: Site of cellulitis: buttock Qualified Code(s): L03.317 - Cellulitis of buttock Present on Admission?: Yes (4) Opioid dependence: 1. Will recommend addition of Lidoderm patches applied to the left posterior lateral chest wall recommend application of 2 patches to the affected area x12 hours/day and off for 12 hours 2. We briefly discussed his potential candidacy for rib block of the left seventh, eighth and ninth rib. The side effects versus benefits of this procedure were discussed at length. After discussing the case further with Dr. Garcia/Neeraj the patient will be scheduled in the OR for the rib block at 8 AM. Please continue to hold Eliquis therapy. Patient will also be n.p.o. after midnight. 3. Recommend that the sacral region be visualized and documented during the day today whenever the patient is out of bed-this was discussed with the nursing staff who will relate to hospitalist service 4. We will consider increasing OxyIR to 10-20 mg every 4 hours PRN for breakthrough pain 5. Could consider increasing fentanyl, but will hold at 25 mcg every 72 hours dosing pending response to above Present on Admission?: Yes History of Present Illness Reason for Consultation: Intractable chest wall pain with history of multiple rib fractures status post fall Attending Physician: Adrian Oh MD History of Present Illness Mr. Lee is a 74-year-old white male who was admitted after the patient suffered a fall on 07/29/2019 with left sided chest wall pain. The patient was found to have 3 non-distracted lateral rib fractures of the left seventh, eighth and ninth ribs. The patient has significant past medical history for type 2 diabetes mellitus, hypertriglyceridemia, peripheral vascular disease, COPD, history of lung nodule, paroxysmal atrial fibrillation on Eliquis which has been held over the past few days, chronic kidney disease, hypertension, morbid obesity, Klwdjcw-Mmjgw-Ketnx disease, peripheral neuropathy and opioid dependency due to severe osteoarthritis. The patient has been on chronic opiate therapy currently utilizing fentanyl 25 mcg every 72 hours and OxyIR 10 mg 40-70 mg total daily dosing. Patient also has history of choledocholithiasis and ERCP is being considered today. The patient also has a history of intergluteal wound/cellulitis and has been on Bactrim therapy started by his PCP on 07/24/2019. Nobody has reportedly visualized to the intergluteal region upon this admission as the patient is too painful to roll although has been out of bed at least once daily. The patient is reporting his pain is slightly improved today with the use of ice in the lateral chest wall. He reports sharp pain in the left posterior lateral chest wall with movement and any deep breathing. He is unable to cough due to the discomfort. The patient has been minimally ambulatory recently due to significant right-sided hip pain although did undergo a steroid injection into the hip which was significantly helpful at diminishing the severity of his pain and allowed him to ambulate which led to his fall. Patient has chronic axial low back pain but denies axial thoracic pain at this time. He denies any fevers, chills or night sweats. He reports difficulties with sedation and cognitive side effects with hydromorphone IV. He reports that he is able to typically tolerate his OxyIR without side effects. Patient has no further contours complaints. Plan of care discussed with Dr. Concepción Pickard. Pain Assessment Full Body Front + Back: 1. Left lateral and anterior chest wall 2. Left posterior and lateral chest wall Pain scale - at its best (0-10): 4 Pain scale - at its worst (0-10): 9 Allergies Allergy/AdvReac Type Severity Reaction Status Date / Time Penicillins Allergy Intermediate RASH Verified 07/29/19 14:54 Home Medications Home Medications Medication Instructions Recorded Confirmed Type albuterol sulfate [Ventolin HFA] 2 puff INHALATION Q6H PRN 01/06/19 07/29/19 History apixaban [Eliquis] 5 mg PO BID 01/06/19 07/29/19 History ascorbic acid (vitamin C) [Vitamin 1,000 mg PO DAILY 01/06/19 07/29/19 History C] aspirin 81 mg PO DAILY 01/06/19 07/29/19 History atorvastatin [Lipitor] 20 mg PO DAILY 01/06/19 07/29/19 History baclofen 10 mg PO DAILY 01/06/19 07/29/19 History celecoxib [Celebrex] 200 mg PO BID PRN 01/06/19 07/29/19 History cholecalciferol (vitamin D3) 5,000 unit PO DAILY 01/06/19 07/29/19 History [Vitamin D3] digoxin [Digox] 125 mcg PO DAILY 01/06/19 07/29/19 History empagliflozin [Jardiance] 10 mg PO DAILY 01/06/19 07/29/19 History fentanyl 1 patch TRANSDERMAL Q72H 01/06/19 07/29/19 History finasteride 5 mg PO DAILY 01/06/19 07/29/19 History glimepiride 4 mg PO QAM 01/06/19 07/29/19 History metformin 1,000 mg PO BID 01/06/19 07/29/19 History metoprolol succinate 12.5 mg PO BID 01/06/19 07/29/19 History omeprazole 40 mg PO DAILY 01/06/19 07/29/19 History oxycodone 10 mg PO Q6H PRN 01/06/19 07/29/19 History pregabalin [Lyrica] 25 mg PO TID 01/06/19 07/29/19 History ranitidine HCl 150 mg PO BID PRN 01/06/19 07/29/19 History B-complex with vitamin C [Super B 1 tab PO DAILY 07/19/19 07/29/19 History Complex-Vitamin C] fluticasone propion-salmeterol 1 inh INHALATION BID 07/19/19 07/29/19 History [Advair Diskus] furosemide 20 mg PO 3XWK 07/19/19 07/29/19 History omega 6-crc-wet-fish oil [Fish Oil] 1 cap PO DAILY 07/19/19 07/29/19 History ramipril 5 mg PO BID 07/19/19 07/29/19 History varenicline [Chantix] 1 mg PO BID 07/19/19 07/29/19 History sulfamethoxazole-trimethoprim 1 tab PO BID 07/29/19 07/29/19 History [Bactrim DS] Pain History Pain Intensity Pain scale - at its best (0-10): 4 Pain scale - at its worst (0-10): 9 Patient History Medical History Hallux valgus (acquired), left foot (Chronic) Acquired hallux valgus of right foot (Chronic) 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) Diabetes mellitus with diabetic polyneuropathy (Chronic) Left foot drop (Chronic) Right foot drop (Chronic) Spinal stenosis, lumbar region with neurogenic claudication (Chronic) Choledocholithiasis Multiple closed fractures of ribs of left side (Acute) Diabetic peripheral neuropathy associated with type 2 diabetes mellitus (Chronic) Gastroesophageal reflux disease (Acute) Hypertensive heart disease (Acute) Tobacco user (Acute 09/27/11) COPD (chronic obstructive pulmonary disease) (Chronic) Hyperlipidemia (Chronic) CMT (Qkyppcc-Pucpm-Gfaoe disease) (Chronic) Surgical History S/P cataract extraction (Resolved) S/P foot surgery, right (Resolved) Hx of tonsillectomy (Chronic) S/P cervical spinal fusion (Chronic) Status post cholecystectomy (Chronic) Family History Other COPD (chronic obstructive pulmonary disease) Coronary heart disease Social History Preferred Language: Japanese Communication Ability: Effective Visual Impairment: Limited Hearing Ability: Hard of Hearing Metabolic Specialist Required: No Beliefs That Will Affect Care: None marital status: Current Living Situation: Alone current occupational status: retired Feels Safe at Home: Yes Safety Concerns: Feels Safe At This Time Smoking Status: Former smoker packs per day: 0.5 ; Hx Alcohol Use: No Hx Substance Use: No Physical Exam Physical Exam: General: Mr. Lee is lying quietly in exam room in no acute distress accompanied by his daughter. Speech and thought process appropriate. Mood and affect was appropriate. Cognition was intact. Chest: Ice pack in place in the left posterior lateral chest wall. Patient is tender to AP and lateral compression of the chest wall. He is tender to palpation along the posterior lateral chest wall to direct palpation at approximate level of the T7-9 ribs. Patient is nontender over the costosternal junction. Extremities: Patient has significant thickening of MCP, PIP and DIP joints on bilateral hands with flexion contraction. Chronic erythematous change involving the foot and ankle and distal pretibial region bilaterally with trace edema. Significant hallux valgus as well as acquired claw toe of the right foot. There is no overt skin breakdown appreciated of the feet bilaterally. Lumbosacral spine: Patient unwilling to logroll for physical exam. Neurologic: Cranial nerves grossly intact. Results Diagnostic Review CT: enhanced, non enhanced and reports reviewed CT Findings: [place], [place] [phone] CT Scan Report Patient: AVINASH LEE Date: 07/29/19 MR#: [id number]: [address] Acct ID:[id number]: Date: 1945City Zip: [place] [address] Age: 74Location: ED Sex: M Room/Bed: Att Phy:Diagnosis: FALL Cira Phy: Mohan Perry, LINDSAYervana Date: 07/29/19 Fam Phy:Interpreting Phy: Eric Escalera MD Admit Phy: Ordering Phy: Vincenzo Hudson M.D. cc: ~ CT SCAN OF THE CHEST, ABDOMEN, AND PELVIS WITH IV CONTRAST; CT SCAN OF THE THORACIC SPINE WITHOUT IV CONTRAST CLINICAL HISTORY: Fall. COMPARISON STUDY: Chest CT scans dated 04/28/2018 and 06/08/2009. Abdominal CT dated 11/29/2017. TECHNIQUE: Following the IV administration of 94 of Optiray 320, CT scan of the chest, abdomen, and pelvis was performed from the thoracic inlet to the proximal femora. Images are reviewed in the axial, sagittal, and coronal planes. IV contrast was administered without complication. Additionally, unenhanced CT scan of the thoracic spine is performed from the lower cervical spine to the upper lumbar spine. The thoracic spinal CT scanner is reviewed in the axial, sagittal, and coronal planes. IV contrast was not administered specifically for the thoracic spine CT A dose lowering technique was utilized adhering to the principles of ALARA. CT DOSE: 3948.53 mGy.cm FINDINGS: CHEST: Thyroid: Imaged portions of the thyroid gland are normal in size and attenuation. Thoracic aorta: There is atherosclerotic calcification of the thoracic aorta, which is normal in caliber and demonstrates bovine variant arch anatomy. No dissection is seen. Pulmonary vasculature: The main pulmonary arteries are dilated suggesting pulmonary artery hypertension. There are no filling defects identified in the central pulmonary vessels to indicate pulmonary embolus. Note that this examination was not protocoled for evaluation of the pulmonary arteries. Heart: The heart is enlarged and without pericardial effusion. The coronary arteries are densely calcified. Lungs and pleural spaces: Exam is change is noted. There is no airspace consolidation, pleural effusion, or pneumothorax. Calcified pleural plaque is noted at the right lung base. There is bibasilar scarring/atelectasis. The trachea and central airways are clear. A 1.6 cm nodule at the right lung base seen on image #181 contains macroscopic fat and has been present dating back to 2008. 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 Mediastinum: There is no mediastinal hematoma or lymphadenopathy. Vandana: Clear. Axillae: There is no axillary lymphadenopathy. Bony thorax: See below for dedicated assessment of the thoracic spine. The skeletal structures are osteopenic. There are acute nondistracted left lateral 7th and posterior 8th and 9th rib fractures. There are numerous chronic/healed right-sided rib fractures. No acute right-sided rib fracture is identified. Advanced arthritic change is seen in the partially visualized right shoulder. No lytic or blastic lesions are identified. THORACIC SPINE: Vertebral body height and alignment are maintained throughout the thoracic spine. There is no evidence of fracture or malalignment. Anterior osteophytes are seen throughout. The transverse and spinous processes are intact. There is mild multilevel degenerative disc space narrowing. There is no evidence of large disc herniation or high-grade central canal stenosis by CT. There is no evidence of high-grade neural foraminal stenosis. The paraspinous soft tissues are normal in appearance. ABDOMEN AND PELVIS: Liver: The contrast-enhanced liver is enlarged, measuring 23.6 cm in length. The liver demonstrates diffusely diminished attenuation consistent with hepatic steatosis. There is minimal central intrahepatic biliary ductal dilatation. The hepatic veins and portal veins are patent. Gallbladder: Surgically absent noting clips in the gallbladder fossa. There are intraluminal filling defects within the distal common bile duct near the panc reatic head (axial images #160 and #167). This is highly concerning for choledocholithiasis. Spleen: Normal in size and attenuation. Pancreas: Unremarkable. Adrenal glands: Unremarkable. Kidneys: The contrast enhanced kidneys demonstrate cortical atrophy and are without hydronephrosis. The kidneys enhance symmetrically. There is a 3 mm nonobstructing calculus in the right lower pole. Abdominal vasculature: The abdominal aorta is normal in course and caliber noting advanced atherosclerotic calcification. Bowel: There is moderate colonic fecal retention. No bowel obstruction is seen. The appendix is well-visualized and normal. Peritoneum: There is no intraperitoneal free air or abdominal ascites. There is a fat-containing umbilical hernia. Lymphadenopathy: None. Pelvic viscera: The prostate gland is diminutive and heterogeneous. The bladder is distended but otherwise normal as imaged. Skeletal structures: The skeletal structures are osteopenic. The lumbosacral spine and bony pelvis appear intact. There is moderate to advanced lumbosacral spondylosis. No lytic or blastic lesions are seen. Bursal fluid is noted around the right hip. There is asymmetric atrophy of the left iliopsoas musculature as compared to the right. IMPRESSION: 1. There are acute nondistracted left 7th, 8th, and 9th rib fractures as above. 2. Cardiomegaly and emphysema. 3. There is no airspace consolidation, pleural effusion, or pneumothorax. 4. There is no evidence of fracture or malalignment involving the thoracic spine. 5. There is no evidence of solid organ injury in the abdomen or pelvis. 6. Hepatomegaly and hepatic steatosis. 7. 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 This is been slowly growing dating back to at least 2 009. 8. Findings are highly concerning for choledocholithiasis. Follow-up with GI is recommended. 9. Right-sided nephrolithiasis. 10. Additional findings as above. Electronically signed by: Eric Escalera M.D. 07/29/2019 5:34 PM Dictated: 07/29/191710 Transcribed: 07/29/191710 [place], [place] [phone] CT Scan Report Patient: AVINASH LEE Date: 07/29/19 MR#: [id number]: [address] Acct ID:[id number]: Date: 1945[facility] [place] Zip: [place] [address] Age: 74Location: ED Sex: M Room/Bed: Att Phy:Diagnosis: FALL Cira Phy: Mohan Perry MDService Date: 07/29/19 [facility] Phy:Interpreting Phy: Eric Escalera MD Admit Phy: Ordering Phy: Vincenzo Hudson M.D. cc: ~ CT SCAN OF THE CERVICAL SPINE CLINICAL HISTORY: Fall. COMPARISON STUDY: MRI of the cervical spine dated 04/20/2013. TECHNIQUE: CT scan of the cervical spine is performed from the skull base to the upper thoracic spine. Images are reviewed in the axial, sagittal, and coronal planes. IV contrast was not administered for this examination. A dose lowering technique was utilized adhering to the principles of ALARA. FINDINGS: Skeletal structures: The skeletal structures are osteopenic. There is no evidence of fracture or subluxation involving the cervical spine. Vertebral body height and alignment are maintained. There is straightening of the cervical lordosis. There is postoperative change from anterior fusion and posterior fusion seen from C3-C5. There is near complete bony incorporation at these levels. The orthopedic hardware appears intact. The odontoid process and lateral masses are intact. The atlantoaxial articulation is preserved noting productive degenerative change. The remaining spinous processes appear intact. Intervertebral discs: There is advanced disc space narrowing seen at C6-C7 mild disc space narrowing is noted at C2-C3.. Central canal: Grossly patent. Soft tissues: The prevertebral and paraspinous soft tissues are within normal limits. There is atherosclerotic calcification of the carotid bulbs. Calvarium: The visualized calvarium at the skull base appears intact. Brain parenchyma: Partially visualized brain parenchyma the skull base is within normal limits. Sinuses and mastoids: The visualized paranasal sinuses are clear. The mastoid air cells are well pneumatized. Cerumen is noted in the left external auditory canal. Lung apices: Clear as visualized. IMPRESSION: 1. There is no evidence of fracture or subluxation involving the cervical spine. 2. Osteopenia with postoperative and spondylotic change as above. Electronically signed by: Eric Escalera M.D. 07/29/2019 5:10 PM Dictated: 07/29/191705 Transcribed: 07/29/191705 Radiology: reports reviewed Radiology Findings: [facility], [place] [phone] XRay Report Patient: AVINASH LEE Date: 07/29/19 MR#: [id number]: [address] Acct ID:[id number]: Date: 1945[facility] [place] Zip: [place] [address] Age: 74Location: ED Sex: M Room/Bed: Att Phy:Diagnosis: FALL Cira Phy: Mohan Perry MDService Date: 07/29/19 Fam Phy:Interpreting Phy: Eric Escalera MD Admit Phy: Ordering Phy: Vincenzo Hudson M.D. cc: ~ SINGLE VIEW PELVIS CLINICAL HISTORY: Fall. FINDINGS: 2 AP supine pelvic radiographs are correlated with pelvic CT dated 11/29/2017. The skeletal structures are osteopenic. There is no radiographic evidence of fracture involving the hips or bony pelvis. Mild degenerative joint space narrowing is seen in the hips. Degenerative sclerosis is noted in the sacroiliac joints. Lumbosacral spondylosis is partially visualized. The overlying soft tissues are within normal limits. No bowel obstruction is seen. IMPRESSION: No acute osseous abnormality is identified. Electronically signed by: Eric Escalera M.D. 07/29/2019 3:58 PM Dictated: 07/29/19 1556 Transcribed: 07/29/19 1556 [place], [place] [phone] XRay Report Patient: AVINASH LEE Date: 07/29/19 MR#: [id number]: [address] Acct ID:[id number]: Date: 1945[facility] [place] Zip: [place] [address] Age: 74Location: ED Sex: M Room/Bed: Att Phy:Diagnosis: FALL Cira Phy: Mohan Perry, MDService Date: 07/29/19 Fam Phy:Interpreting Phy: Eric Escalera MD Admit Phy: Ordering Phy: Vincenzo Hudson M.D. cc: ~ AP CHEST WITH LEFT-SIDED RIB SERIES CLINICAL HISTORY: Fall. Left-sided chest wall injury. FINDINGS: An AP upright chest radiograph with 4 additional views from a left-si ded rib series is compared to chest x-ray and chest CT dated 04/28/2018. The AP views degraded by patient rotation. The heart is enlarged. The pulmonary vasculature is noncongested. Emphysematous change and chronic interstitial thickening are similar to previous. There is bibasilar scarring/atelectasis. No airspace consolidation or large pleural effusion is identified. No pneumothorax is seen. The skeletal structures are osteopenic. There is no radiographic evidence of acute/distracted left-sided rib fracture on the rib series. The remainder of the bony thorax is grossly intact. Fusion hardware is noted in the lower cervical spine. Advanced arthritic changes seen in the shoulders. Superior subluxation of the humeral heads suggest chronic rotator cuff injuries. There is atherosclerotic calcification of the carotid bulbs. IMPRESSION: 1. Cardiomegaly and emphysema with no acute cardiopulmonary abnormality. 2. There is no radiographic evidence of acute/distracted left-sided rib fracture on the rib series as clinically queried. Electronically signed by: Eric Escalera M.D. 07/29/2019 3:56 PM Dictated: 07/29/19 1553 Transcribed: 07/29/19 1553
--- NOTE | 2019-08-02 12:03 | History & Physical Bridge Note ---
Date of Service August 02, 2019 History & Physical Bridge Note I have examined the patient, reviewed the History & Physical and in the interval since the performance of the History & Physical I have noted the following changes of clinical significance: no changes noted
[2019-08-02] MEDS ORDERED: INDOMETHACIN 50 MG SUPP PR ONE (12:24)
[2019-08-02] MEDS ORDERED: ONDANSETRON INJ 2 MG/ML 2 ML VIAL IV PRN (13:24)
[2019-08-02] MEDS ORDERED: ePHEDrine sulfate 50 MG/ML AMP IV PRN (13:24)
[2019-08-02] MEDS ORDERED: ATROPINE SULFATE 0.1 MG/ML 10ML SYR IV PRN (13:24)
[2019-08-02] MEDS ORDERED: fentaNYL citrate 100 MCG/2 ML VIAL ONE (13:25)
[2019-08-02] MEDS ORDERED: PROPOFOL IV EMULSION 10 MG/ML 20 ML VIAL IV ONE ×2 (13:25→14:10)
[2019-08-02] MEDS ORDERED: ONDANSETRON INJ 2 MG/ML 2 ML VIAL ONE (14:10)
[2019-08-02] MEDS ORDERED: ROCURONIUM BROMIDE 10 MG/ML 5 ML VIAL ONE ×2 (14:10→14:35)
[2019-08-02] MEDS ORDERED: LIDOCAINE HCL 2% 2 ML VIAL/AMP(20MG/ML) INFIL ONE (14:10)
[2019-08-02] MEDS ORDERED: PHENYLEPHRINE HCL 10 MG/ML VIAL ONE (14:11)
[2019-08-02] MEDS ORDERED: NEOSTIGMINE METHYLSULFATE 5 MG/5 ML SYR ONE (14:30)
[2019-08-02] MEDS ORDERED: GLYCOPYRROLATE 0.2 MG/ML VIAL ONE (14:30)
--- NOTE | 2019-08-02 14:51 | Operative Report ---
Post Operative Report Pre & Post Diagnosis Operation Date: 08/02/19 12:15 Pre-Op Diagnosis: Common Bile Duct Stones Post-Op Diagnosis: Common Bile Duct Stones Operation Date: 08/03/19 07:15 <No data on this case meets the specified criteria> I identified the patient and participated in the time-out.: Yes Procedure Operation Date: 08/02/19 12:15 Actual Procedures p Endoscopic Retrograde Cholangiopancreatogram(Not Applicable) - Anahy Hall MD Operation Date: 08/03/19 07:15 <No data on this case meets the specified criteria> Surgeon Anahy Hall MD Golf Ball Winder None Estimated Blood Loss 0 Findings See Below (CBD stones removed) Specimens None Description of Procedure ERCP I attest to the content of the Intraoperative Record and any orders documented therein. Any exceptions are noted below.
--- NOTE | 2019-08-02 15:06 | Fluoroscopy Report ---
FL ERCP biliary ductal CLINICAL HISTORY: 74 years-old Male presenting with ERCP IN OR. TECHNIQUE: Fluoroscopy was provided for endoscopic retrograde cholangiopancreatography. 15 fluoroscop ic image(s) recorded. COMPARISON: CT from 07/29/2019 and ultrasound of the right upper quadrant from 07/30/2019. FINDINGS: Procedure: An endoscope projects over the descending duodenum. A catheter was inserted into the commo n bile duct, which was opacified with contrast. Cholecystectomy clips evident. Filling defect within the distal common duct as seen on recent CT. Balloon clearance of the duct was performed several time s. No intrahepatic biliary duct dilatation is apparent. No abnormal distention of the cystic duct. No filling defects within the intrahepatic biliary tree. Peritoneal spillage: No evidence of peritoneal spillage of contrast. Extrahepatic bile ducts: Mild distention of the common bile duct may in part relate to a reservoir ef fect in the post cholecystectomy state as well as the choledocholithiasis in the distal common duct. Contrast extends into the small bowel by the conclusion of the exam. Intrahepatic bile ducts: Mild intrahepatic biliary ductal prominence likely a reservoir effect in the post cholecystectomy state as well as due to forced injection of contrast. Fluoroscopy dosage (mGy): 101.43. Fluoroscopy time: 137 seconds. Number or time of high level fluoroscopy (HLF), digital spot, or digital subtraction images: 0. IMPRESSION: Clearance of distal common bile duct choledocholithiasis. No evidence of choledocholithiasis at the c onclusion of the procedure. Electronically signed by: Tulio Kruse M.D. 08/02/2019 3:04 PM
[2019-08-02] MEDS: fentaNYL citrate 100 MCG/2 ML VIAL IV PRN ×3 (15:07→15:25)
--- NOTE | 2019-08-02 15:44 | GI REPORT ---
Patient Name: Ray Cherry Procedure Date: 08/02/2019 2:33 PM Date of : 1945 Admit Type: Inpatient Age: 74 Gender: Male Attending MD: Anahy Hall MD Procedure: Upper GI endoscopy Providers: Anahy Hall MD Referring MD: Adrian Oh Md Indications: Abdominal pain in the right upper quadrant Medicines: Propofol per Anesthesia Complications: No immediate complications. Estimated Blood Loss: Estimated blood loss: none. Procedure: Pre-Anesthesia Assessment: - Prior to the procedure, a History and Physical was performed, and patient medications, allergies and sensitivities were reviewed. The patient's tolerance of previous anesthesia was reviewed. - The risks and benefits of the procedure and the sedation options and risks were discussed with the patient. All questions were answered and informed consent was obtained. - Patient identification and proposed procedure were verified prior to the procedure by the physician and the nurse. The procedure was verified in the procedure room. - Pre-procedure physical examination revealed no contraindications to sedation. After obtaining informed consent, the endoscope was passed under direct vision. Throughout the procedure, the patient's blood pressure, pulse, and oxygen saturations were monitored continuously. The Scope was introduced through the mouth, and advanced to the second part of duodenum. The upper GI endoscopy was accomplished without difficulty. The patient tolerated the procedure well. Findings: One tongue of salmon-colored mucosa was present at 40 cm. The maximum longitudinal extent of these esophageal mucosal changes was 1 cm in length. Biopsies were taken with a cold forceps for histology. Verification of patient identification for the specimen was done by the physician and nurse using the patient's name and date. The entire examined stomach was normal. A single 8 mm sessile polyp was found in the distal duodenal bulb at the sweep. This could also represent a prominent minor papilla hence did not resect. Will need EUS to clarify. The duodenal bulb and second portion of the duodenum were normal. Impression: - New [place]-colored mucosa classified as Tim's stage C0-M1 per [place] criteria. Biopsied. - Normal stomach. - A single duodenal polyp Vs Prominent minor papilla. - Normal duodenal bulb and second portion of the duodenum. Recommendation: - Perform an upper endoscopic ultrasound (UEUS) at appointment to be scheduled to evaluate the duodenal polyp/ EMR. - Await pathology results. - Repeat upper endoscopy for surveillance based on pathology results. Anahy Hall MD 08/02/2019 3:44:27 PM This report has been signed electronically. Note Initiated On: 08/02/2019 2:33 PM Number of Addenda: 0 I attest to the content of the Intraoperative Record and orders documented therein, exceptions below {[id number]}
--- NOTE | 2019-08-02 15:44 | Anesthesiology Consultation ---
Date of Service August 02, 2019 Assessment & Plan (1) Encounter for pre-operative examination: Chart Review Chart Review: Acceptable Risk for Surgery Consults Requested none History Surgery Operation Date: 08/02/19 12:15 Proposed Procedures p Endoscopic Retrograde Cholangiopancreatogram - Anahy Hall MD Operation Date: 08/03/19 07:15 Proposed Procedures p Left 7, 8, 9 Intercostal Nerve Block - Bishnu Connelly MD, FIPP Height/Weight Height: 5 ft 5 in Weight: 106 kg Allergies Allergy/AdvReac Type Severity Reaction Status Date / Time Penicillins Allergy Intermediate RASH Verified 07/29/19 14:54 Medications Home Medications Medication Instructions Recorded Confirmed Last Taken albuterol sulfate [Ventolin HFA] 2 puff INHALATION Q6H PRN 01/06/19 07/29/19 Unknown apixaban [Eliquis] 5 mg PO BID 01/06/19 07/29/19 07/19/19 5mg ascorbic acid (vitamin C) [Vitamin 1,000 mg PO DAILY 01/06/19 07/29/19 07/19/19 C] 1gm aspirin 81 mg PO DAILY 01/06/19 07/29/19 07/19/19 81mg atorvastatin [Lipitor] 20 mg PO DAILY 01/06/19 07/29/19 07/19/19 20mg baclofen 10 mg PO DAILY 01/06/19 07/29/19 07/19/19 10mg celecoxib [Celebrex] 200 mg PO BID PRN 01/06/19 07/29/19 Unknown cholecalciferol (vitamin D3) 5,000 unit PO DAILY 01/06/19 07/29/19 07/19/19 [Vitamin D3] digoxin [Digox] 125 mcg PO DAILY 01/06/19 07/29/19 07/19/19 empagliflozin [Jardiance] 10 mg PO DAILY 01/06/19 07/29/19 07/19/19 fentanyl 1 patch TRANSDERMAL Q72H 01/06/19 07/29/19 07/19/19 finasteride 5 mg PO DAILY 01/06/19 07/29/19 07/19/19 glimepiride 4 mg PO QAM 01/06/19 07/29/19 07/19/19 metformin 1,000 mg PO BID 01/06/19 07/29/19 07/19/19 1gm metoprolol succinate 12.5 mg PO BID 01/06/19 07/29/19 07/19/19 12.5mg omeprazole 40 mg PO DAILY 01/06/19 07/29/19 07/19/19 oxycodone 10 mg PO Q6H PRN 01/06/19 07/29/19 07/19/19 pregabalin [Lyrica] 25 mg PO TID 01/06/19 07/29/19 07/19/19 25mg ranitidine HCl 150 mg PO BID PRN 01/06/19 07/29/19 Unknown B-complex with vitamin C [Super B 1 tab PO DAILY 07/19/19 07/29/19 07/19/19 Complex-Vitamin C] fluticasone propion-salmeterol 1 inh INHALATION BID 07/19/19 07/29/19 07/19/19 [Advair Diskus] 1puff furosemide 20 mg PO 3XWK 07/19/19 07/29/19 07/19/19 omega 2-ekh-qju-fish oil [Fish Oil] 1 cap PO DAILY 07/19/19 07/29/19 07/19/19 ramipril 5 mg PO BID 07/19/19 07/29/19 07/19/19 varenicline [Chantix] 1 mg PO BID 07/19/19 07/29/19 07/19/19 1mg sulfamethoxazole-trimethoprim 1 tab PO BID 07/29/19 07/29/19 Unknown [Bactrim DS] Active Medications Generic Name Dose Route Start Last Admin Trade Name Jose Jq PRN Reason Stop Dose Admin Acetaminophen 650 mg 07/29/19 20:35 08/02/19 05:18 Tylenol PO 08/28/19 20:34 650 mg Q4H PRN Administration Pain or Fever Ascorbic Acid 1,000 mg 07/30/19 09:00 08/02/19 08:32 Vitamin C PO 08/29/19 08:59 1,000 mg DAILY BETHANY Administration Atorvastatin Calcium 20 mg 07/30/19 09:00 08/02/19 08:31 Lipitor PO 08/29/19 08:59 20 mg DAILY BETHANY Administration Baclofen 10 mg 07/30/19 09:00 08/02/19 08:31 Lioresal PO 08/29/19 08:59 10 mg DAILY BETHANY Administration Digoxin 0.125 mg 07/29/19 20:35 08/01/19 15:54 Lanoxin PO 08/28/19 20:34 0.125 mg DAILY@1600 BETHANY Administration Enalapril Maleate 20 mg 07/29/19 21:00 08/02/19 08:32 Vasotec PO 08/28/19 20:59 20 mg BID BETHANY Administration Fentanyl 25 mcg 07/31/19 21:45 07/31/19 21:55 Duragesic TD 08/14/19 21:44 25 mcg Q72H BETHANY Administration Fentanyl Citrate 25 mcg 08/02/19 13:24 08/02/19 15:25 Fentanyl Citrate IV 08/02/19 18:24 25 mcg Q5M PRN Administration PACU Use Only-Pain Finasteride 5 mg 07/30/19 09:00 08/02/19 08:33 Proscar PO 08/29/19 08:59 5 mg DAILY BETHANY Administration Furosemide 20 mg 07/31/19 09:00 08/02/19 08:42 Lasix PO 08/30/19 08:59 20 mg TuThSa@0900 BETHANY Administration Hydromorphone HCl 2 mg 08/01/19 16:39 08/02/19 08:40 Dilaudid IV 08/14/19 20:41 2 mg Q5H PRN Administration Pain Insulin Aspart 0 units 08/02/19 02:00 08/02/19 05:20 Novolog Flexpen SC 09/01/19 01:59 2 units Q6 BETHANY Administration Insulin Glargine 3 units 08/02/19 10:00 08/02/19 09:55 Lantus Solostar Pen SC 09/01/19 09:59 3 units BID BETHANY Administration Metoprolol Succinate 12.5 mg 07/29/19 21:00 08/02/19 08:31 Toprol Xl PO 08/28/19 20:59 12.5 mg BID BETHANY Administration Miscellaneous 1 ea 07/30/19 00:00 08/02/19 08:29 Fentanyl Patch Check Placement N/A 08/29/19 00:00 1 ea QS BETHANY Administration Miscellaneous 1 ea 07/31/19 21:44 07/31/19 21:54 Fentanyl Patch Remove & Waste N/A 08/30/19 21:43 1 ea Q3D@2144 BETHANY Administration Pantoprazole Sodium 40 mg 07/30/19 09:00 08/02/19 08:33 Protonix PO 08/29/19 08:59 40 mg DAILY BETHANY Administration Protocol Polyethylene Glycol 17 gm 07/30/19 09:00 08/01/19 07:35 Miralax Powder Packet PO 08/29/19 08:59 17 gm DAILY BETHANY Administration Pregabalin 25 mg 07/29/19 21:00 08/02/19 08:40 Lyrica PO 08/28/19 20:59 25 mg TID BETHANY Administration Fluticasone/Salmeterol 1 puffs 07/29/19 21:00 08/02/19 08:31 Advair Diskus 250/50 INH 08/28/19 20:59 1 puffs BID BETHANY Administration Trimethoprim/Sulfamethoxazole 1 tab 07/29/19 21:00 08/02/19 08:32 Septra Ds 800/160mg Tab PO 08/08/19 20:59 1 tab BID BETHANY Administration Varenicline 1 mg 07/29/19 21:00 08/02/19 08:32 Chantix PO 08/28/19 20:59 1 mg BID BETHANY Administration Vitamin B Complex 1 tab 07/30/19 09:00 08/02/19 08:32 Vitamin B Complex PO 08/29/19 08:59 1 tab DAILY BETHANY Administration Vitamin D 5,000 units 07/30/19 09:00 08/02/19 08:31 Vitamin D3 PO 08/29/19 08:59 5,000 units DAILY BETHANY Administration NPO Date Last Intake of Fluids: 08/01/19 Time Last Intake of Fluids: 17:15 Date Last Intake of Solids: 08/01/19 Time Last Intake of Solids: 20:00 Past Medical History Medical History Hallux valgus (acquired), left foot (Chronic) Acquired hallux valgus of right foot (Chronic) 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) Diabetes mellitus with diabetic polyneuropathy (Chronic) Left foot drop (Chronic) Right foot drop (Chronic) Spinal stenosis, lumbar region with neurogenic claudication (Chronic) Choledocholithiasis Multiple closed fractures of ribs of left side (Acute) Diabetic peripheral neuropathy associated with type 2 diabetes mellitus (Chronic) Gastroesophageal reflux disease (Acute) Hypertensive heart disease (Acute) Tobacco user (Acute 09/27/11) COPD (chronic obstructive pulmonary disease) (Chronic) Hyperlipidemia (Chronic) CMT (Zgmwnjz-Zkadd-Wzrbo disease) (Chronic) Past Family History Family History Other COPD (chronic obstructive pulmonary disease) Coronary heart disease Past Surgical History Surgical History S/P cataract extraction (Resolved) S/P foot surgery, right (Resolved) Hx of tonsillectomy (Chronic) S/P cervical spinal fusion (Chronic) Status post cholecystectomy (Chronic) Social History Smoking Status: Former smoker Hx Alcohol Use: No Hx Substance Use: No Physical Exam Vital Signs Last Vital Signs Temp 97.2 F L 08/02/19 15:02 Pulse 75 08/02/19 15:10 Resp 16 08/02/19 15:10 BP 150/117 H 08/02/19 15:10 Pulse Ox 98 08/02/19 15:10 Testing Laboratory Results 08/02/19 05:57 08/02/19 05:57 PT 10.8 Seconds (9.0-12.0) 07/29/19 15:20 INR 1.1 (0.9-1.1) 07/29/19 15:20 APTT 29.5 Seconds (21.0-31.0) 07/29/19 15:20 Hemoglobin A1c 10.3 % (4.5-5.6) H 07/30/19 05:19 08/02/19 05:19 POC Glucose 193 H Electrocardiogram Date: 01/06/19 A.Flutter (rate of 86), Left anterior fascicular block, Inferior infarct , age undetermined, Anterolateral infarct , age undetermined, When compared with ECG of 30-APR-2018 07:35, Atrial flutter has replaced Atrial fibrillation Echocardiogram Date: 03/23/19 EF: 55-60% LV Function: normal moderate aortic valve sclerosis without significant stenosis, grade 1 diastolic dysfunction Other Testing 07/29/19 - Chest CT IMPRESSION: 1. There are acute nondistracted left 7th, 8th, and 9th rib fractures as above. 2. Cardiomegaly and emphysema. 3. There is no airspace consolidation, pleural effusion, or pneumothorax. 4. There is no evidence of fracture or malalignment involving the thoracic spine. 5. There is no evidence of solid organ injury in the abdomen or pelvis. 6. Hepatomegaly and hepatic steatosis. 7. 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 This is been slowly growing dating back to at least 2008. 8. Findings are highly concerning for choledocholithiasis. Follow-up with GI is recommended. 9. Right-sided nephrolithiasis. 10. Additional findings as above.
--- NOTE | 2019-08-02 15:51 | GI REPORT ---
Patient Name: Ray Cherry Procedure Date: 08/02/2019 1:34 PM Date of : 1945 Admit Type: Inpatient Age: 74 Gender: Male Attending MD: Anahy Hall MD Procedure: ERCP Providers: Anahy Hall MD Referring MD: Adrian Oh Md Indications: Abdominal pain of suspected biliary origin, Bile duct stone on Computed Tomogram Scan, For therapy of bile duct stone(s) Medicines: General Anesthesia Complications: No immediate complications. Estimated Blood Loss: Estimated blood loss: none. Procedure: Pre-Anesthesia Assessment: - Prior to the procedure, a History and Physical was performed, and patient medications, allergies and sensitivities were reviewed. The patient's tolerance of previous anesthesia was reviewed. - The risks and benefits of the procedure and the sedation options and risks were discussed with the patient. All questions were answered and informed consent was obtained. - Patient identification and proposed procedure were verified prior to the procedure by the physician and the nurse. The procedure was verified in the procedure room. - Pre-procedure physical examination revealed no contraindications to sedation. After obtaining informed consent, the scope was passed under direct vision. Throughout the procedure, the patient's blood pressure, pulse, and oxygen saturations were monitored continuously. The Scope was introduced through the mouth, and advanced to the duodenum and used to inject contrast into the bile duct. The ERCP was accomplished without difficulty. The patient tolerated the procedure well. Findings: A wedding transportation driver film of the abdomen was obtained. Surgical clips, consistent with a previous cholecystectomy, were seen in the area of the right upper quadrant of the abdomen. The esophagus was successfully intubated under direct vision. The scope was advanced to a normal major papilla in the descending duodenum without detailed examination of the pharynx, larynx and associated structures, and upper GI tract. The upper GI tract was grossly normal. A 0.035 inch straight standard wire was passed into the biliary tree. The Fusion OMNI sphincterotome was passed over the guidewire and the bile duct was then deeply cannulated. Contrast was injected. I personally interpreted the bile duct images. Ductal flow of contrast was adequate. Image quality was adequate. Contrast extended to the main bile duct. The main bile duct was dilated. The largest diameter was 10 mm. The lower third of the main bile duct contained multiple stones, the largest of which was 10 mm in diameter. Biliary sphincterotomy was made with a monofilament traction (standard) sphincterotome using ERBE electrocautery. There was no post-sphincterotomy bleeding. Bile duct orifice was successfully dilated with a 10 mm balloon dilator. The biliary tree was swept with an 11.5 mm balloon starting at the bifurcation. Many stones were removed. No stones remained. Indomethacin 100 mg was given via suppository to decrease the risk of post-ERCP pancreatitis (PEP). Pancreatic duct was not cannulated nor injected with contrast. Impression: - Choledocholithiasis was found. Complete removal was accomplished by biliary sphincterotomy, sphincteroplasty and balloon extraction. Recommendation: - Return patient to [facility] for [facility] care. - Avoid aspirin and nonsteroidal anti-inflammatory medicines for 5 days. - Resume Eliquis (apixaban) at prior dose in 2 days. Anahy Hall MD 08/02/2019 3:51:31 PM This report has been signed electronically. Note Initiated On: 08/02/2019 1:34 PM Number of Addenda: 0 I attest to the content of the Intraoperative Record and orders documented therein, exceptions below {[id number]}
--- NOTE | 2019-08-02 15:57 | Anesthesiology Progress Note ---
Date of Service August 02, 2019 Anesthesia Post Procedure Vital Signs Vital Signs: Temp Pulse Pulse Resp BP Pulse Ox 08/02/19 15:50 97.5 F L 77 17 136/75 96 08/02/19 15:40 97.5 F L 77 17 142/75 H 98 08/02/19 15:30 97.5 F L 66 17 138/72 97 08/02/19 15:20 97.5 F L 76 17 146/75 H 98 08/02/19 15:10 75 16 150/117 H 98 08/02/19 15:02 97.2 F L 93 H 18 182/136 H 98 08/02/19 08:18 97.7 F 75 18 120/69 95 08/01/19 23:06 97.7 F 75 16 126/65 94 Pain Intensity Left Abdomen: Pain Intensity: 8 Left Ribs: Pain Intensity: 2 Right Shoulder: Pain Intensity: 4 Left Back: Pain Intensity: 2 Transfer of Care Handoff Completed per policy Notes Mental Status: alert / awake / arousable and participated in evaluation Patient Amnestic to Procedure: Yes Nausea / Vomiting: adequately controlled Pain: adequately controlled Airway Patency, RR, SpO2: stable & adequate BP & HR: stable & adequate Hydration State: stable & adequate Anesthetic Complications: no major complications apparent and Pt Satisfied with anesthetic care
[2019-08-02] MEDS: LIDOCAINE 5% 1 PATCH TD SCH (17:25)
[2019-08-02] MEDS: SENNA 8.6 MG TAB PO SCH (17:32)
[2019-08-02] MEDS: DIGOXIN 0.125 MG TAB PO SCH (17:33)
[2019-08-02] MEDS: POLYETHYLENE (MIRALAX) 17 GM PACK PO SCH (17:37)
[2019-08-02] MEDS ORDERED: INSULIN GLARGINE SOLOSTAR 100 UNITS/ML 3 ML PEN SC SCH (21:00)
[2019-08-02] MEDS ORDERED: INSULIN ASPART 100 UNITS/ML 3 ML PEN SC SCH (21:00)
[2019-08-03] MEDS: CHECK FENTANYL PATCH PLACEMENT SCH ×3 (00:09→17:20)
[2019-08-03] MEDS: INSULIN ASPART 100 UNITS/ML 3 ML PEN SC SCH ×5 (00:10→21:06)
[2019-08-03] MEDS: OXYCODONE HCL IR 5 MG TAB (IMMEDIATE RELEASE) PO PRN ×3 (05:06→21:19)
[2019-08-03] MEDS ORDERED: fentaNYL citrate 100 MCG/2 ML VIAL ONE (06:30)
[2019-08-03] MEDS ORDERED: PROPOFOL IV EMULSION 10 MG/ML 20 ML VIAL IV ONE (06:30)
[2019-08-03] MEDS ORDERED: EPINEPHrine INJ 1 MG/ML AMP ONE (06:59)
[2019-08-03] MEDS ORDERED: TRIAMCINOLONE ACET 40 MG/ML VIAL ONE (06:59)
[2019-08-03] MEDS ORDERED: BUPIVACAINE 0.5 % 5 MG/1 ML MPF 30ML VIAL ONE (06:59)
[2019-08-03] MEDS ORDERED: DEXAMETHASONE **PF** INJ 10 MG/ML VIAL ONE (06:59)
[2019-08-03] MEDS ORDERED: EPINEPHrine HCL INJ 1 MG/ML 30ML ONE (07:00)
[2019-08-03] MEDS ORDERED: LIDOCAINE HCL 1% 20 ML VIAL ONE (07:00)
[2019-08-03] MEDS ORDERED: MIDAZOLAM HCL 1 MG/ML 2ML VIAL ONE (07:05)
[2019-08-03] MEDS ORDERED: IOPAMIDOL INJ 61% 15 ML VIAL ONE (07:35)
--- NOTE | 2019-08-03 07:41 | History & Physical Bridge Note ---
Date of Service August 03, 2019 History & Physical Bridge Note I have examined the patient, reviewed the History & Physical and in the interval since the performance of the History & Physical I have noted the following changes of clinical significance: no changes noted
[2019-08-03] MEDS ORDERED: ePHEDrine sulfate 50 MG/ML AMP IV PRN (07:44)
[2019-08-03] MEDS ORDERED: fentaNYL citrate 100 MCG/2 ML VIAL IV PRN (07:44)
[2019-08-03] MEDS ORDERED: ATROPINE SULFATE 0.1 MG/ML 10ML SYR IV PRN (07:44)
[2019-08-03] MEDS ORDERED: ONDANSETRON INJ 2 MG/ML 2 ML VIAL IV PRN (07:44)
--- NOTE | 2019-08-03 08:54 | Operative Report ---
Post Operative Report Pre & Post Diagnosis Operation Date: 08/03/19 07:15 Pre-Op Diagnosis: left 7th, 8th, 9th rib fractures Post-Op Diagnosis: left 7th, 8th, 9th rib fractures I identified the patient and participated in the time-out.: Yes Procedure Operation Date: 08/03/19 07:15 Actual Procedures p Left 7, 8, 9 Intercostal Nerve Block(Left) - Bishnu Connelly MD, LACI Surgeon Bishnu Connelly MD, LACI [employer] Sales Agent None Estimated Blood Loss 0 Findings Consistent with Post-Op Diagnosis Specimens None Drains None Anesthesia Type Local Complications none Disposition Disposition: Recovery Room Indications Rib fractures. Description of Procedure INTERCOSTAL NERVE BLOCK Diagnosis: Intercostal neuralgia. Side/Level injected: Left seventh, eighth and ninth intercostal nerves Surgeon: Dr. Connelly Prior to starting, the Patients diagnosis and the procedure were reviewed with the patient in detail. Possible risks and complications including infection, bleeding, damage to surrounding structures and increased pain were discussed. Alternative therapies were also reviewed. Patients questions were answered and they agreed to proceed. Informed consent was obtained. Allergies and medication list was reviewed. The patient was brought to the procedure room and placed in prone position. Immediately prior to starting the procedure, a ``time out was conducted with the staff and the patient where the patient was identified, proposed procedure was verified, consent was reviewed and the proper site for the planned procedure was identified. Monitors used included intermittent blood pressure with automated device, continuous pulse oximetry and level of consciousness. Patient was not given any intravenous sedation and constant verbal contact was m aintained throughout the procedure. Biplanar fluoroscopy was used to assist in placement of the needle as well as to evaluate final needle position prior to the injection. On examination, no signs of skin breakdown or infection were noted at the injection site. The site was cleansed with DuraPrep followed by Betadine. Sterile drapes were applied. Next, appropriate rib on the appropriate side identified under fluoroscopy to true AP view. Skin was infiltrated with 1 cc of 1% Xylocaine MPF. A 22 gauge, 3.5 needle was introduced through the anesthetized area and placed at the inferior edge of the rib. C-arm was lateral view and the needle was then ``walked off the inferior margin of the rib into the neurovascular bundle. No blood, paresthesia or air was aspirated upon removed the stylette. 0.5 mL of Omnipaque M3 100 was injected. Spread on the neurovascular bundle was noted. No vascular uptake was seen. 2.5 ml of 0.5% bupivacaine MPF containing 1:100,000 epinephrine containing 25 milligrams of Kenalog was injected. Needle was flushed with additional local anesthetic and withdrawn. Hemostasis was noted. Band-Aids were applied at the site. Chest x-ray was obtained to evaluate for any hemo or pneumothorax. Patient tolerated the procedure uneventfully without complications. Patient was brought to recovery area and observed. Vital signs were stable prior to dis charge. Patient was discharged home with standard discharge instructions after approximately 30 minutes with an adult hazmat tanker driver. I attest to the content of the Intraoperative Record and any orders documented therein. Any exceptions are noted below.
--- NOTE | 2019-08-03 09:07 | Anesthesiology Progress Note ---
Date of Service August 03, 2019 Anesthesia Post Procedure Vital Signs Vital Signs: Temp Pulse Pulse Pulse Resp BP Pulse Ox 08/03/19 08:55 36.3 C L 71 14 107/64 96 08/03/19 08:45 61 12 94/57 L 95 08/03/19 08:35 36.6 C 66 16 86/55 L 95 08/03/19 06:25 36.5 C 76 16 118/73 95 08/03/19 03:34 36.5 C 77 17 116/68 94 08/03/19 00:00 36.4 C L 78 16 116/67 95 08/02/19 20:34 96 08/02/19 19:21 36.4 C L 76 18 107/66 96 08/02/19 18:20 36.6 C 55 L 18 105/69 99 08/02/19 17:33 66 08/02/19 17:20 36.4 C L 66 18 111/68 96 08/02/19 16:50 36.4 C L 71 16 147/84 H 98 08/02/19 16:20 36.7 C 75 16 135/74 94 08/02/19 15:50 36.4 C L 77 17 136/75 96 08/02/19 15:40 36.4 C L 77 17 142/75 H 98 08/02/19 15:30 36.4 C L 66 17 138/72 97 08/02/19 15:20 36.4 C L 76 17 146/75 H 98 08/02/19 15:10 75 16 150/117 H 98 08/02/19 15:02 36.2 C L 93 H 18 182/136 H 98 Pain Intensity Left Abdomen: Pain Intensity: 8 Left Ribs: Pain Intensity: 2 Right Shoulder: Pain Intensity: 4 Left Back: Pain Intensity: 8 Transfer of Care Handoff Completed per policy Notes Mental Status: alert / awake / arousable and participated in evaluation Nausea / Vomiting: adequately controlled Pain: adequately controlled Airway Patency, RR, SpO2: stable & adequate BP & HR: stable & adequate Hydration State: stable & adequate Anesthetic Complications: no major complications apparent and Pt Satisfied with anesthetic care
--- NOTE | 2019-08-03 10:36 | XRay Report ---
XR chest 1V portable CLINICAL HISTORY: Post-Op COMPARISON STUDY: No previous studies for comparison. FINDINGS: No evidence for pneumothorax. Interval bibasilar parenchymal infiltrative change. The lungs are clear. IMPRESSION: 1. No evidence of pneumothorax. 2. Mild bibasilar parenchymal infiltrates. The above report was generated using voice recognition software. It may contain grammatical, syntax or spelling errors. Electronically signed by: Derik Nelson M.D. 08/03/2019 10:34 AM
[2019-08-03] MEDS ORDERED: Nursing to Pharmacy Communication ONE (11:19)
[2019-08-03] MEDS: PREGABALIN 25 MG CAP PO SCH ×3 (11:32→20:53)
[2019-08-03] MEDS: FLUTICASONE/SALMETEROL 250/50 (ADVAIR) 14 PUFF/1 INHALER INH SCH ×2 (11:35→20:53)
[2019-08-03] MEDS: LIDOCAINE 5% 1 PATCH TD SCH (11:35)
[2019-08-03] MEDS: POLYETHYLENE (MIRALAX) 17 GM PACK PO SCH (11:38)
[2019-08-03] MEDS: CHOLECALCIFEROL 1,000 UNITS TAB PO SCH (11:40)
[2019-08-03] MEDS: BACLOFEN 10 MG TAB PO SCH (11:40)
[2019-08-03] MEDS: PANTOprazole 40 MG TAB PO SCH (11:41)
[2019-08-03] MEDS: ENALAPRIL MALEATE 10 MG TAB PO SCH ×2 (11:41→20:53)
[2019-08-03] MEDS: METOPROLOL SUCC 25MG EXT REL TAB PO SCH ×2 (11:41→20:59)
[2019-08-03] MEDS: ASCORBIC ACID 500 MG TAB PO SCH (11:42)
[2019-08-03] MEDS: ATORVASTATIN 20 MG TAB PO SCH (11:42)
[2019-08-03] MEDS: VITAMIN B COMPLEX TAB PO SCH (11:42)
[2019-08-03] MEDS: VARENICLINE 1 MG TAB PO SCH ×2 (11:43→20:55)
[2019-08-03] MEDS: SULFAMETHOXAZOLE/TRIMETHOPRIM DS 800/160MG TAB PO SCH ×2 (11:43→20:59)
[2019-08-03] MEDS: FINASTERIDE 5 MG TAB PO SCH (11:43)
[2019-08-03] MEDS: SENNA 8.6 MG TAB PO SCH (11:43)
[2019-08-03] MEDS: INSULIN GLARGINE SOLOSTAR 100 UNITS/ML 3 ML PEN SC SCH ×2 (11:51→20:55)
--- NOTE | 2019-08-03 13:47 | Hospitalist Progress Note ---
Date of Service August 03, 2019 Assessment & Plan (1) Multiple closed fractures of ribs of left side: Osteoporosis with current osteoporotic fracture of L sided ribs S/p losing balance and fall cont pain control , incentive spirometry pt denies of any SOB , florez Pain due to multiple rib fractures Pain more difficult to control, as patient has also history of chronic pain Says at home takes oxycodone, which has not been adequate while in the hospital, pain management was consulted, and recommended to increase his oxycodone to 10 to 20 mg every 4 hours as needed cont. IV Dilaudid as needed for now Pain management consulted for their input, pt is now s/p left 7,8,9 intercostal nerve block (08/03/2019) (2) Choledocholithiasis: incidental finding in CT abdomen /pelvis USG of liver shows no stone in biliary duct pt has hx of intermittent rt upper quadrant colicky pain Held Eliquis for 3 days prior to procedure ( has been on hold since admission ) , plan to re-start tomorrow (08/04/2019) Pt now s/p ERCP with sphincterotomy, balloon extraction of stones (08/02/2019) Tolerated procedure well, denies any abdominal pain, nausea, vomiting HX OF PAROXYSMAL AFIB: cont on Digoxin Eliquis held for procedures (ERCP and nerve block), will restart tomorrow (3) Spinal stenosis, lumbar region with neurogenic claudication: Appreciate input from Spinal surgery Dr Conde Patient had a MRI from December 2017 of lumbar spine : demonstrate severe multilevel facet arthropathy with significant spinal stenosis at L3-4. repeat MRI ordered to assess new changes (patient declined the study as he was in too much pain, plan for nerve block and pain meds adjustment) (4) Diabetes mellitus type 2, uncontrolled: cont Insulin SSI CODE STATUS : FULL CODE DVT prophylaxis : Eliquis on hold, will restart tomorrow ordered for SCD and teds encourage to ambulate DISPOSITION : will obtain PT/OT after his procedures, for now, expected to be discharged home when medically stable Subjective Patient is currently lying in bed, in no acute distress. He underwent ERCP with sphincterotomy, balloon extraction of stones yesterday (08/02/2019). Tolerated procedure well, then this morning he underwent left 7, 8, 9 intercostal nerve block for his rib pain due to rib fractures. He says that he still has pain, however he certainly looks more comfortable than previously. He says he did not have any issues after ERCP, and denies any abdominal pain, nausea, vomiting. Also denies any fevers, chills, chest pain, shortness of breath. He is very concerned about his ambulation, says that he was only able to stand for a few seconds and had to quit PT/OT session. Review of Systems Review of Systems: All systems reviewed & are unremarkable except as noted in HPI & below Constitutional: + body aches; no fever and no chills Respiratory: no cough and no dyspnea Cardiovascular: no chest pain, no dyspnea on exertion and no palpitations Gastrointestinal: no abdominal pain, no nausea and no vomiting Physical Exam Physical Exam: Physical Exam: Constitutional: Elderly male lying in bed, in no acute distress, WD/WN + obese Eyes: PERRL, conjunctivae normal, anicteric sclerae ENMT: external ear and nose normal, oropharynx normal Neck: trachea midline, no thyromegaly Respiratory: normal respiratory effort, lungs clear to auscultation Cardiovascular: Rate/Rhythm: regular rate and regular rhythm Gastrointestinal (Abdomen): normal bowel sounds, soft, nontender, no guarding Skin: warm and dry Neurologic: PERRL, EOMI, accommodation nl, no face palsy, no dysarthria Psychiatric: A+Ox3, euthymic affect Lymphatic: no cervical or axillary lymphadenopathy Results & Data Vital Signs (Past 12 Hours) Vital Signs Temp Pulse Pulse Resp BP BP Pulse Ox 08/03/19 13:14 36.4 C L 67 18 91/57 L 95 08/03/19 12:15 36.4 C L 62 18 107/67 95 08/03/19 11:15 36.5 C 69 18 92/56 L 93 08/03/19 10:47 73 18 98/62 L 95 08/03/19 10:00 65 13 117/60 97 08/03/19 09:50 36.6 C 62 12 109/61 85 L 08/03/19 09:40 63 12 85 L 08/03/19 09:30 60 18 104/54 L 96 08/03/19 09:20 67 16 101/58 L 95 08/03/19 09:10 65 16 101/63 98 08/03/19 08:55 36.3 C L 71 14 107/64 96 08/03/19 08:45 61 12 94/57 L 95 08/03/19 08:35 36.6 C 66 16 86/55 L 95 08/03/19 06:25 36.5 C 76 16 118/73 95 08/03/19 03:34 36.5 C 77 17 116/68 94 Laboratory Results 08/03/19 08/03/19 08/03/19 Range/Units 11:18 08:37 05:01 POC Glucose 179 H 165 H 176 H (70-99) 08/03/19 08/02/19 08/02/19 Range/Units 00:08 20:27 17:02 POC Glucose 181 H 208 H 231 H (70-99) 08/02/19 Range/Units 16:05 POC Glucose 223 H (70-99) Medications Administered Current Inpatient Medications Acetaminophen (Tylenol) 650 mg PO Q4H PRN PRN Reason: Pain or Fever Stop: 08/28/19 20:34 Last Admin: 08/02/19 05:18 Dose: 650 mg Documented by: Albuterol (Ventolin Hfa) 2 puffs INH Q6H PRN PRN Reason: Shortness Of Breath Stop: 08/28/19 20:34 Ascorbic Acid (Vitamin C) 1,000 mg PO DAILY [facility] Stop: 08/29/19 08:59 Last Admin: 08/03/19 11:42 Dose: 1,000 mg Documented by: Atorvastatin Calcium (Lipitor) 20 mg PO DAILY [facility] Stop: 08/29/19 08:59 Last Admin: 08/03/19 11:42 Dose: 20 mg Documented by: Baclofen (Lioresal) 10 mg PO DAILY [facility] Stop: 08/29/19 08:59 Last Admin: 08/03/19 11:40 Dose: 10 mg Documented by: Dextrose (Dextrose 50%) 25 - 50 ml IV UD PRN; Protocol PRN Reason: Hypoglycemia Protocol Stop: 08/28/19 20:44 Digoxin (Lanoxin) 0.125 mg PO DAILY@1600 [facility] Stop: 08/28/19 20:34 Last Admin: 08/02/19 17:33 Dose: 0.125 mg Documented by: Enalapril Maleate (Vasotec) 20 mg PO BID [facility] Stop: 08/28/19 20:59 Last Admin: 08/03/19 11:41 Dose: Not Given Documented by: Fentanyl (Duragesic) 25 mcg TD Q72H [facility] Stop: 08/14/19 21:44 Last Admin: 07/31/19 21:55 Dose: 25 mcg Documented by: Finasteride (Proscar) 5 mg PO DAILY [facility] Stop: 08/29/19 08:59 Last Admin: 08/03/19 11:43 Dose: 5 mg Documented by: Furosemide (Lasix) 20 mg PO TuThSa@0900 [facility] Stop: 08/30/19 08:59 Last Admin: 08/02/19 08:42 Dose: 20 mg Documented by: Glucagon (Glucagen) 1 mg IM UD PRN; Protocol PRN Reason: Hypoglycemia Protocol Stop: 08/28/19 20:44 Glucose (Glucose 40%) 15 - 30 gm PO UD PRN; Protocol PRN Reason: Hypoglycemia Protocol Stop: 08/28/19 20:44 Glucose (Dex4 Glucose) 4 - 8 tabs PO UD PRN; Protocol PRN Reason: Hypoglycemia Protocol Stop: 08/28/19 20:44 Insulin Aspart (Novolog Flexpen) 0 units SC ACHS [facility] Stop: 09/02/19 11:29 Last Admin: 08/03/19 13:07 Dose: 8 units Documented by: Insulin Glargine (Lantus Solostar Pen) 3 units SC BID [facility] Stop: 09/01/19 09:59 Last Admin: 08/03/19 11:51 Dose: 3 units Documented by: Lidocaine (Lidoderm 5%) 2 patch TD QAM [facility] Stop: 09/01/19 08:59 Last Admin: 08/03/19 11:35 Dose: 2 patch Documented by: Metoprolol Succinate (Toprol Xl) 12.5 mg PO BID [facility] Stop: 08/28/19 20:59 Last Admin: 08/03/19 11:41 Dose: Not Given Documented by: Miscellaneous (Fentanyl Patch Check Placement) 1 ea N/A QS [facility] Stop: 08/29/19 00:00 Last Admin: 08/03/19 11:36 Dose: 1 ea Documented by: Miscellaneous (Carbohydrates For Hypoglycemia) 15 - 30 gm PO UD PRN PRN Reason: Hypoglycemia Treatment Stop: 08/28/19 20:44 Miscellaneous (Fentanyl Patch Remove & Waste) 1 ea N/A Q3D@2144 [facility] Stop: 08/30/19 21:43 Last Admin: 07/31/19 21:54 Dose: 1 ea Documented by: Miscellaneous (Remove Lidoderm Patch) 1 ea N/A DAILY@2100 [facility] Stop: 09/01/19 20:59 Last Admin: 08/02/19 20:39 Dose: 1 ea Documented by: Nitroglycerin (Nitrostat) 0.4 mg SL UD PRN PRN Reason: Chest Pain Stop: 08/28/19 20:34 Ondansetron HCl (Zofran) 4 mg IV Q6H PRN PRN Reason: Nausea Stop: 08/28/19 20:34 Oxycodone HCl (Roxicodone Immediate Rel) 15 mg PO Q4 PRN PRN Reason: Pain Stop: 08/12/19 20:34 Last Admin: 08/03/19 12:36 Dose: 15 mg Documented by: Pantoprazole Sodium (Protonix) 40 mg PO DAILY [facility]; Protocol Stop: 08/29/19 08:59 Last Admin: 08/03/19 11:41 Dose: 40 mg Documented by: Polyethylene Glycol (Miralax Powder Packet) 17 gm PO DAILY [facility] Stop: 08/29/19 08:59 Last Admin: 08/03/19 11:38 Dose: 17 gm Documented by: Pregabalin (Lyrica) 25 mg PO TID [facility] Stop: 08/28/19 20:59 Last Admin: 08/03/19 13:10 Dose: 25 mg Documented by: Ranitidine HCl (Zantac) 150 mg PO BID PRN PRN Reason: Gastric Reflux Stop: 08/28/19 20:34 Fluticasone/Salmeterol (Advair Diskus 250/50) 1 puffs INH BID [facility] Stop: 08/28/19 20:59 Last Admin: 08/03/19 11:35 Dose: 1 puffs Documented by: Sennosides (Senokot) 8.6 mg PO QAM [facility] Stop: 09/01/19 15:29 Last Admin: 08/03/19 11:43 Dose: 8.6 mg Documented by: Trimethoprim/Sulfamethoxazole (Septra Ds 800/160mg Tab) 1 tab PO BID [facility] Stop: 08/08/19 20:59 Last Admin: 08/03/19 11:43 Dose: 1 tab Documented by: Varenicline (Chantix) 1 mg PO BID [facility] Stop: 08/28/19 20:59 Last Admin: 08/03/19 11:43 Dose: 1 mg Documented by: Vitamin B Complex (Vitamin B Complex) 1 tab PO DAILY [facility] Stop: 08/29/19 08:59 Last Admin: 08/03/19 11:42 Dose: 1 tab Documented by: Vitamin D (Vitamin D3) 5,000 units PO DAILY [facility] Stop: 08/29/19 08:59 Last Admin: 08/03/19 11:40 Dose: 5,000 units Documented by: (1) Multiple closed fractures of ribs of left side Encounter type: initial encounter Qualified Code(s): S22.42XA - Multiple fractures of ribs, left side, initial encounter for closed fracture
[2019-08-03] MEDS ORDERED: LIDOCAINE 2% JELLY 5 ML TUBE ONE (14:29)
--- NOTE | 2019-08-03 15:08 | Gastroenterology Progress Note ---
Date of Service August 03, 2019 Assessment & Plan (1) Choledocholithiasis: Post ERCP day #1. 1. Advance to regular consistency diet. 2. May restart Eliquis PM. 3. OK to restart ASA 81mg now. 4. OP EUS to investigate duodenal polyp in 3 - 6 months. Our office will contact the pt to arrange. 5. GI will sign off. Please notify us if new GI issues. Supervising Physician Co-Signing Physician Notes I performed a history and physical examination of the patient, including specifically on physical exam - soft, nontender abdomen. I have discussed the patient's management with Mary. Please refer to the nurse practitioner's note for the documented findings and plan of care. Feels great today after nerve block. No abdominal pain. EUS as OP. Recall GI if needed. Subjective Pt admitted for fall, rib fx. Imaging with choledocholithiasis. He is post procedure day #1 from ERCP with sphincterotomy, balloon extraction of stones. Today he underwent nerve block for rib pain and is comfortable. No melena/hematochezia. Hb stable post ERCP at 14. Review of Systems Review of Systems: ROS: M/S: Right sided thoracic back pain since fall. Gen: Denies weakness, fevers, weight loss Eyes: No eye redness, or pain, no recent vision changes Resp: No SOB, no cough Cardio: No palpitations/irregular beats, no chest pain GI: no further abdominal pain. No nausea/vomiting : Denies pain on urination Skin: No jaundice, itching or new rashes Physical Exam Constitutional: WD/WN, vitals as above + obese Eyes: PERRL, conjunctivae normal, anicteric sclerae ENMT: external ear and nose normal, oropharynx normal Neck: trachea midline, no thyromegaly Respiratory: normal respiratory effort, lungs clear to auscultation Cardiovascular: Rate/Rhythm: regular rate and regular rhythm Gastrointestinal (Abdomen): normal bowel sounds, soft, nontender, no hepatosplenomegaly Skin: no rashes, warm and dry Neurologic: PERRL, EOMI, accommodation nl, no face palsy, no dysarthria Psychiatric: A+Ox3, euthymic affect Lymphatic: no cervical or axillary lymphadenopathy Results & Data Vital Signs (Past 12 Hours) Vital Signs Temp Pulse Pulse Resp BP BP Pulse Ox 08/03/19 13:14 36.4 C L 67 18 91/57 L 95 08/03/19 12:15 36.4 C L 62 18 107/67 95 08/03/19 11:15 36.5 C 69 18 92/56 L 93 08/03/19 10:47 73 18 98/62 L 95 08/03/19 10:00 65 13 117/60 97 08/03/19 09:50 36.6 C 62 12 109/61 85 L 08/03/19 09:40 63 12 85 L 08/03/19 09:30 60 18 104/54 L 96 08/03/19 09:20 67 16 101/58 L 95 08/03/19 09:10 65 16 101/63 98 08/03/19 08:55 36.3 C L 71 14 107/64 96 08/03/19 08:45 61 12 94/57 L 95 08/03/19 08:35 36.6 C 66 16 86/55 L 95 08/03/19 06:25 36.5 C 76 16 118/73 95 08/03/19 03:34 36.5 C 77 17 116/68 94 Diagnostic Findings EGD 08/02 with [facility], single duodenal polyp. ERCP 08/02 with choledocholithiasis, removal with sphincterotomy, balloon extraction.
[2019-08-03] MEDS: DIGOXIN 0.125 MG TAB PO SCH (17:20)
[2019-08-03] MEDS: ASPIRIN 81 MG ECTAB PO SCH (20:55)
[2019-08-03] MEDS: fentaNYL 25 MCG/HR TDSY TD SCH (21:09)
[2019-08-04] MEDS: CHECK FENTANYL PATCH PLACEMENT SCH ×4 (00:49→23:54)
[2019-08-04] MEDS: OXYCODONE HCL IR 5 MG TAB (IMMEDIATE RELEASE) PO PRN ×4 (01:29→19:21)
[2019-08-04] MEDS: PREGABALIN 25 MG CAP PO SCH ×3 (08:47→22:17)
[2019-08-04] MEDS: INSULIN GLARGINE SOLOSTAR 100 UNITS/ML 3 ML PEN SC SCH ×2 (08:48→22:11)
[2019-08-04] MEDS: INSULIN ASPART 100 UNITS/ML 3 ML PEN SC SCH ×5 (08:49→22:15)
[2019-08-04] MEDS: ASCORBIC ACID 500 MG TAB PO SCH (08:49)
[2019-08-04] MEDS: FUROSEMIDE 20 MG TAB PO SCH (08:50)
[2019-08-04] MEDS: METOPROLOL SUCC 25MG EXT REL TAB PO SCH ×2 (08:50→22:13)
[2019-08-04] MEDS: PANTOprazole 40 MG TAB PO SCH (08:50)
[2019-08-04] MEDS: FINASTERIDE 5 MG TAB PO SCH (08:50)
[2019-08-04] MEDS: VITAMIN B COMPLEX TAB PO SCH (08:50)
[2019-08-04] MEDS: SENNA 8.6 MG TAB PO SCH (08:51)
[2019-08-04] MEDS: ENALAPRIL MALEATE 10 MG TAB PO SCH ×2 (08:51→22:13)
[2019-08-04] MEDS: ATORVASTATIN 20 MG TAB PO SCH (08:52)
[2019-08-04] MEDS: BACLOFEN 10 MG TAB PO SCH (08:52)
[2019-08-04] MEDS: SULFAMETHOXAZOLE/TRIMETHOPRIM DS 800/160MG TAB PO SCH ×2 (08:53→22:12)
[2019-08-04] MEDS: FLUTICASONE/SALMETEROL 250/50 (ADVAIR) 14 PUFF/1 INHALER INH SCH ×2 (08:53→22:10)
[2019-08-04] MEDS: CHOLECALCIFEROL 1,000 UNITS TAB PO SCH (08:53)
[2019-08-04] MEDS: LIDOCAINE 5% 1 PATCH TD SCH (08:54)
[2019-08-04] MEDS: VARENICLINE 1 MG TAB PO SCH ×2 (08:54→22:11)
[2019-08-04] MEDS: ASPIRIN 81 MG ECTAB PO SCH (08:54)
[2019-08-04] MEDS: POLYETHYLENE (MIRALAX) 17 GM PACK PO SCH (08:57)
[2019-08-04] MEDS ORDERED: APIXABAN 5 MG TABLET PO SCH ×2 (09:00→21:00)
--- NOTE | 2019-08-04 09:18 | Orthopedic Progress Note ---
Date of Service August 04, 2019 Assessment & Plan (1) Spinal stenosis, lumbar region with neurogenic claudication: I did have a discussion with this patient this morning regarding obtaining an MRI lumbar spine if he is more comfortable. He is concerned he would not be able to tolerate a scan at this point. He is comfortable waiting to have it done an outpatient basis hopefully in an open scanner. Present on Admission?: Yes Subjective Patient still struggling with some rib pain on the left side. Overall he does feel improvement however. Physical Exam Physical Exam: Patient is in bed does appear more comfortable. Neurologic status unchanged. Results & Data Vital Signs (Past 12 Hours) Vital Signs Temp Pulse Resp BP Pulse Ox 08/04/19 07:48 36.5 C 75 16 146/83 H 95 08/04/19 04:11 36.7 C 76 16 117/67 92 08/04/19 00:00 36.6 C 77 16 134/73 94
--- NOTE | 2019-08-04 12:54 | Anesthesiology Progress Note ---
Date of Service August 04, 2019 Anesthesia Post Procedure Vital Signs Vital Signs: Temp Pulse Pulse Pulse Resp BP BP 08/04/19 07:48 36.5 C 75 16 146/83 H 08/04/19 04:11 36.7 C 76 16 117/67 08/04/19 00:00 36.6 C 77 16 134/73 08/03/19 20:51 72 119/63 08/03/19 19:36 36.7 C 72 16 102/64 08/03/19 17:20 82 08/03/19 17:19 82 08/03/19 15:54 36.6 C 72 17 99/63 L 08/03/19 13:14 36.4 C L 67 18 91/57 L Pulse Ox 08/04/19 07:48 95 08/04/19 04:11 92 08/04/19 00:00 94 08/03/19 20:51 08/03/19 19:36 93 08/03/19 17:20 08/03/19 17:19 08/03/19 15:54 93 08/03/19 13:14 95 Pain Intensity Left Abdomen: Pain Intensity: 8 Left Ribs: Pain Intensity: 7 Right Shoulder: Pain Intensity: 7 Left Back: Pain Intensity: 4 Notes Mental Status: alert / awake / arousable and participated in evaluation Nausea / Vomiting: adequately controlled Pain: adequately controlled Airway Patency, RR, SpO2: stable & adequate BP & HR: stable & adequate Hydration State: stable & adequate Anesthetic Complications: no major complications apparent and Pt Satisfied with anesthetic care
[2019-08-04] MEDS: DIGOXIN 0.125 MG TAB PO SCH (15:20)
--- NOTE | 2019-08-04 17:57 | Hospitalist Progress Note ---
Date of Service August 04, 2019 Assessment & Plan (1) Multiple closed fractures of ribs of left side: Osteoporosis with current osteoporotic fracture of L sided ribs S/p losing balance and fall cont pain control , incentive spirometry pt denies of any SOB , florez Pain due to multiple rib fractures Pain more difficult to control, as patient has also history of chronic pain Consulted pain management, pt is now s/p left 7,8,9 intercostal nerve block (08/03/2019) -at home takes oxycodone, which has not been adequate while in the hospital, pain management was consulted, and recommended to increase his oxycodone to 10- 20 mg every 4 hours as needed (2) Choledocholithiasis: incidental finding in CT abdomen /pelvis USG of liver shows no stone in biliary duct pt has hx of intermittent rt upper quadrant colicky pain Held Eliquis for 3 days prior to procedure, will re-start today (08/04/2019) Pt now s/p ERCP with sphincterotomy, balloon extraction of stones (08/02/2019) Tolerated procedure well, denies any abdominal pain, nausea, vomiting HX OF PAROXYSMAL AFIB: cont on Digoxin Eliquis held for procedures (ERCP and nerve block), restarted on 08/04 (3) Spinal stenosis, lumbar region with neurogenic claudication: Appreciate input from Spinal surgery Dr Conde Patient had a MRI from December 2017 of lumbar spine : demonstrate severe multilevel facet arthropathy with significant spinal stenosis at L3-4. repeat MRI ordered to assess new changes (patient declined the study as he was in too much pain) Discussed possible MRI with patient now when his pain is better controlled, pt decided to do this as an outpatient, patient says that he discussed this with Dr. Conde and both agreed that they can wait until he feels better, from his recent multiple rib fracture, and then undergo MRI in an outpatient setting (4) Diabetes mellitus type 2, uncontrolled: cont Insulin SSI CODE STATUS : FULL CODE DVT prophylaxis : Eliquis held d/t procedures, will re-start today ordered for SCD and teds encourage to ambulate DISPOSITION : Plan to discharge to an acute rehab Subjective No acute events overnight. Patient says that he still has pain, and that the nerve block did not quite take pain away. However he looks much more comfortable, and he denies any fevers, chills, chest pain, shortness of breath, abdominal pain, nausea or vomiting. Daughter at the bedside, discussed patient's clinical course, will aim for better pain control. Daughter also agrees that patient looks much more comfortable after the nerve block, but still concerns about his ambulation and function after discharge and function after discharge. Review of Systems Review of Systems: All systems reviewed & are unremarkable except as noted in HPI & below Constitutional: + body aches; no fever and no chills Respiratory: no cough, no chest congestion and no dyspnea Cardiovascular: no chest pain, no dyspnea on exertion, no palpitations and no edema Gastrointestinal: no abdominal pain, no nausea and no vomiting Physical Exam Physical Exam: Physical Exam: Constitutional: Elderly male lying in bed, in no acute distress, WD/WN + obese Eyes: PERRL, EOMI, conjunctivae normal, anicteric sclerae ENMT: external ear and nose normal, oropharynx normal Neck: trachea midline, no thyromegaly Respiratory: normal respiratory effort, lungs clear to auscultation, no wheezing, rhonchi or crackles Cardiovascular: Rate/Rhythm: regular rate and regular rhythm Gastrointestinal (Abdomen): normal bowel sounds, soft, obese, nontender, no guarding Skin: warm and dry Neurologic: PERRL, EOMI, accommodation nl, no facial asymmetry palsy, no dysarthria, moves all 4 extrem. spontaneously Psychiatric: A+Ox3, euthymic affect Lymphatic: no cervical or axillary lymphadenopathy Results & Data Vital Signs (Past 12 Hours) Vital Signs Temp Pulse Pulse Resp BP BP Pulse Ox 08/04/19 15:50 36.6 C 80 17 130/71 92 08/04/19 15:20 80 08/04/19 07:48 36.5 C 75 16 146/83 H 95 Laboratory Results 08/04/19 08/04/19 08/04/19 Range/Units 17:25 12:03 08:19 POC Glucose 269 H 236 H 211 H (70-99) 08/03/19 08/03/19 Range/Units 20:31 17:03 POC Glucose 218 H 290 H (70-99) Medications Administered Current Inpatient Medications Acetaminophen (Tylenol) 650 mg PO Q4H PRN PRN Reason: Pain or Fever Stop: 08/28/19 20:34 Last Admin: 08/02/19 05:18 Dose: 650 mg Documented by: Albuterol (Ventolin Hfa) 2 puffs INH Q6H PRN PRN Reason: Shortness Of Breath Stop: 08/28/19 20:34 Apixaban (Eliquis) 5 mg PO BID [facility] Stop: 09/03/19 20:59 Apixaban (Eliquis) 5 mg PO BID [facility] Stop: 08/05/19 21:01 Ascorbic Acid (Vitamin C) 1,000 mg PO DAILY [facility] Stop: 08/29/19 08:59 Last Admin: 08/04/19 08:49 Dose: 1,000 mg Documented by: Aspirin (Ecotrin Ectab) 81 mg PO QAM [facility] Stop: 09/02/19 20:59 Last Admin: 08/04/19 08:54 Dose: 81 mg Documented by: Atorvastatin Calcium (Lipitor) 20 mg PO DAILY [facility] Stop: 08/29/19 08:59 Last Admin: 08/04/19 08:52 Dose: 20 mg Documented by: Baclofen (Lioresal) 10 mg PO DAILY [facility] Stop: 08/29/19 08:59 Last Admin: 08/04/19 08:52 Dose: 10 mg Documented by: Dextrose (Dextrose 50%) 25 - 50 ml IV UD PRN; Protocol PRN Reason: Hypoglycemia Protocol Stop: 08/28/19 20:44 Digoxin (Lanoxin) 0.125 mg PO DAILY@1600 [facility] Stop: 08/28/19 20:34 Last Admin: 08/04/19 15:20 Dose: 0.125 mg Documented by: Enalapril Maleate (Vasotec) 20 mg PO BID [facility] Stop: 08/28/19 20:59 Last Admin: 08/04/19 08:51 Dose: 20 mg Documented by: Fentanyl (Duragesic) 25 mcg TD Q72H [facility] Stop: 08/14/19 21:44 Last Admin: 08/03/19 21:09 Dose: 25 mcg Documented by: Finasteride (Proscar) 5 mg PO DAILY [facility] Stop: 08/29/19 08:59 Last Admin: 08/04/19 08:50 Dose: 5 mg Documented by: Furosemide (Lasix) 20 mg PO TuThSa@0900 [facility] Stop: 08/30/19 08:59 Last Admin: 08/04/19 08:50 Dose: 20 mg Documented by: Glucagon (Glucagen) 1 mg IM UD PRN; Protocol PRN Reason: Hypoglycemia Protocol Stop: 08/28/19 20:44 Glucose (Glucose 40%) 15 - 30 gm PO UD PRN; Protocol PRN Reason: Hypoglycemia Protocol Stop: 08/28/19 20:44 Glucose (Dex4 Glucose) 4 - 8 tabs PO UD PRN; Protocol PRN Reason: Hypoglycemia Protocol Stop: 08/28/19 20:44 Insulin Aspart (Novolog Flexpen) 0 units SC ACHS [facility] Stop: 09/02/19 11:29 Last Admin: 08/04/19 17:34 Dose: 15 units Documented by: Insulin Glargine (Lantus Solostar Pen) 3 units SC BID [facility] Stop: 09/01/19 09:59 Last Admin: 08/04/19 08:48 Dose: 3 units Documented by: Lidocaine (Lidoderm 5%) 2 patch TD QAM [facility] Stop: 09/01/19 08:59 Last Admin: 08/04/19 08:54 Dose: 2 patch Documented by: Metoprolol Succinate (Toprol Xl) 12.5 mg PO BID [facility] Stop: 08/28/19 20:59 Last Admin: 08/04/19 08:50 Dose: 12.5 mg Documented by: Miscellaneous (Fentanyl Patch Check Placement) 1 ea N/A QS [facility] Stop: 08/29/19 00:00 Last Admin: 08/04/19 15:22 Dose: 1 ea Documented by: Miscellaneous (Carbohydrates For Hypoglycemia) 15 - 30 gm PO UD PRN PRN Reason: Hypoglycemia Treatment Stop: 08/28/19 20:44 Miscellaneous (Fentanyl Patch Remove & Waste) 1 ea N/A Q3D@2144 [facility] Stop: 08/30/19 21:43 Last Admin: 08/03/19 21:08 Dose: 1 ea Documented by: Miscellaneous (Remove Lidoderm Patch) 1 ea N/A DAILY@2100 [facility] Stop: 09/01/19 20:59 Last Admin: 08/03/19 20:56 Dose: 1 ea Documented by: Nitroglycerin (Nitrostat) 0.4 mg SL UD PRN PRN Reason: Chest Pain Stop: 08/28/19 20:34 Ondansetron HCl (Zofran) 4 mg IV Q6H PRN PRN Reason: Nausea Stop: 08/28/19 20:34 Oxycodone HCl (Roxicodone Immediate Rel) 15 mg PO Q4 PRN PRN Reason: Pain Stop: 08/12/19 20:34 Last Admin: 08/04/19 14:59 Dose: 15 mg Documented by: Pantoprazole Sodium (Protonix) 40 mg PO DAILY [facility]; Protocol Stop: 08/29/19 08:59 Last Admin: 08/04/19 08:50 Dose: 40 mg Documented by: Polyethylene Glycol (Miralax Powder Packet) 17 gm PO DAILY [facility] Stop: 08/29/19 08:59 Last Admin: 08/04/19 08:57 Dose: 17 gm Documented by: Pregabalin (Lyrica) 25 mg PO TID [facility] Stop: 08/28/19 20:59 Last Admin: 08/04/19 13:41 Dose: 25 mg Documented by: Ranitidine HCl (Zantac) 150 mg PO BID PRN PRN Reason: Gastric Reflux Stop: 08/28/19 20:34 Fluticasone/Salmeterol (Advair Diskus 250/50) 1 puffs INH BID [facility] Stop: 08/28/19 20:59 Last Admin: 08/04/19 08:53 Dose: 1 puffs Documented by: Sennosides (Senokot) 8.6 mg PO QAM [facility] Stop: 09/01/19 15:29 Last Admin: 08/04/19 08:51 Dose: 8.6 mg Documented by: Trimethoprim/Sulfamethoxazole (Septra Ds 800/160mg Tab) 1 tab PO BID [facility] Stop: 08/08/19 20:59 Last Admin: 08/04/19 08:53 Dose: 1 tab Documented by: Varenicline (Chantix) 1 mg PO BID [facility] Stop: 08/28/19 20:59 Last Admin: 08/04/19 08:54 Dose: 1 mg Documented by: Vitamin B Complex (Vitamin B Complex) 1 tab PO DAILY [facility] Stop: 08/29/19 08:59 Last Admin: 08/04/19 08:50 Dose: 1 tab Documented by: Vitamin D (Vitamin D3) 5,000 units PO DAILY [facility] Stop: 08/29/19 08:59 Last Admin: 08/04/19 08:53 Dose: 5,000 units Documented by: (1) Multiple closed fractures of ribs of left side Encounter type: initial encounter Qualified Code(s): S22.42XA - Multiple fractures of ribs, left side, initial encounter for closed fracture
[2019-08-04] MEDS ORDERED: BISACODYL 10 MG SUPP PR ONE (18:55)
[2019-08-04] MEDS ORDERED: BISACODYL 10 MG SUPP PR STA (19:02)
[2019-08-04] MEDS ORDERED: BISACODYL 10 MG SUPP PR PRN (22:53)
[2019-08-05 05:09] LABS: Hematocrit (blood only) 40.7 % (42-52); Hemoglobin 13.5 g/dL (14.0-18.0); Mean Corpuscular Hemoglobin 29.3 pg (25-34); Mean Corpuscular Hgb Conc 33.2 g/dL (32-36); Mean Corpuscular Volume 88.5 fL (80-100); Mean Platelet Volume 10.9 fL (7.4-10.4); Platelet Count 209 K/uL (130-400); RDW Coefficient of Variation 16.9 % (11.5-14.5); RDW Standard Deviation 54.7 fL (36.4-46.3); White Blood Count 8.03 K/uL (4.8-10.8)
[2019-08-05 05:35] LABS: BUN Creatinine Ratio 36.6 (10-20); Calcium 9.7 mg/dl (8.5-10.1); Creatinine Clr Calc Pharmacy 74.2 ml/min; Est GFR (African American) 85.7
--- NOTE | 2019-08-05 08:11 | Hospitalist Progress Note ---
Date of Service August 05, 2019 Assessment & Plan (1) Multiple closed fractures of ribs of left side: Osteoporosis with current osteoporotic fracture of L sided ribs S/p losing balance and fall cont pain control , incentive spirometry pt denies of any SOB , florez Pain due to multiple rib fractures Pain more difficult to control, as patient has also history of chronic pain Consulted pain management, pt is now s/p left 7,8,9 intercostal nerve block (08/03/2019) -at home takes oxycodone, which has not been adequate while in the hospital, pain management was consulted, and recommended to increase his oxycodone to 10- 20 mg every 4 hours as needed Opiate-induced constipation -Patient says he did not have a bowel movement for some time -We will adjust his bowel regimen -Discussed the importance of bowel regimen to prevent constipation, while on opiates (2) Choledocholithiasis: incidental finding in CT abdomen /pelvis USG of liver shows no stone in biliary duct pt has hx of intermittent rt upper quadrant colicky pain Held Eliquis for 3 days prior to procedure, re-started yesterday (08/04/2019) Pt now s/p ERCP with sphincterotomy, balloon extraction of stones (08/02/2019) Tolerated procedure well, denies any abdominal pain, nausea, vomiting HX OF PAROXYSMAL AFIB: cont on Digoxin Eliquis held for procedures (ERCP and nerve block), restarted on 08/04 (3) Spinal stenosis, lumbar region with neurogenic claudication: Appreciate input from Spinal surgery Dr Conde Patient had a MRI from December 2017 of lumbar spine : demonstrate severe multilevel facet arthropathy with significant spinal stenosis at L3-4. repeat MRI ordered to assess new changes (patient declined the study as he was in too much pain) Discussed possible MRI with patient now when his pain is better controlled, pt decided to do this as an outpatient, patient says that he discussed this with Dr. Conde and both agreed that they can wait until he feels better, from his recent multiple rib fracture, and then undergo MRI in an outpatient setting (4) Diabetes mellitus type 2, uncontrolled: cont Insulin SSI CODE STATUS : FULL CODE DVT prophylaxis : Eliquis ordered for SCD and teds encourage to ambulate DISPOSITION : Plan to discharge to an acute rehab Subjective No acute events overnight, patient still says that he is uncomfortable due to pain, he has chronic pain in addition to this new fracture, also uncomfortable laying in bed but feels too weak to ambulate. He also mentions that he has not had a bowel movement for some time. Discussed with him that this is something to watch out for especially because of his opiate use, discussed a bowel regimen to follow. He otherwise denies fevers, chills, chest pain, shortness of breath, palpitations, nausea, vomiting. Review of Systems Review of Systems: All systems reviewed & are unremarkable except as noted in HPI & below Constitutional: + body aches; no fever and no chills Respiratory: no cough, no dyspnea and no pain on inspiration Cardiovascular: no chest pain, no dyspnea on exertion, no palpitations and no edema Gastrointestinal: + abdominal pain and + constipation; no nausea and no vomiting Physical Exam Physical Exam: Physical Exam: Constitutional: Elderly male lying in bed, in no acute distress, WD/WN + obese Eyes: PERRL, EOMI, conjunctivae normal, anicteric sclerae ENMT: external ear and nose normal, oropharynx normal Neck: trachea midline, no thyromegaly Respiratory: normal respiratory effort, lungs clear to auscultation, no wheezing, rhonchi or crackles Cardiovascular: Rate/Rhythm: regular rate and regular rhythm Gastrointestinal (Abdomen): + bowel sounds,obese and somewhat distended, mildly tender to palp. diffusely, no guarding Skin: warm and dry Neurologic: PERRL, EOMI, accommodation nl, no facial asymmetry palsy, no dysarthria, moves all 4 extrem. spontaneously Psychiatric: A+Ox3, euthymic affect Lymphatic: no cervical or axillary lymphadenopathy Results & Data Vital Signs (Past 12 Hours) Vital Signs Temp Pulse Resp BP Pulse Ox 08/04/19 22:55 36.6 C 70 16 130/77 93 Laboratory Results 08/05/19 08/05/19 08/04/19 Range/Units 04:51 04:51 22:08 WBC 8.03 (4.8-10.8) K/uL RBC 4.60 L (4.7-6.1) M/uL Hgb 13.5 L (14.0-18.0) g/dL Hct 40.7 L (42-52) % MCV 88.5 (80-100) fL MCH 29.3 (25-34) pg MCHC 33.2 (32-36) g/dL RDW Std Deviation 54.7 H (36.4-46.3) fL RDW Coeff of Naomi 16.9 H (11.5-14.5) % Plt Count 209 (130-400) K/uL MPV 10.9 H (7.4-10.4) fL Sodium 131 L (136-145) mmol/L Potassium 5.0 (3.5-5.1) mmol/L Chloride 98 (98-107) mmol/L Carbon Dioxide 25 (21-32) mmol/L Anion Gap 8.0 (3-11) BUN 37 H (7-18) mg/dl Creatinine 1.01 (0.6-1.4) mg/dl Est Cr Clr Drug Dosing 74.2 ml/min Est GFR ( Amer) 85.7 Est GFR (Non-Af Amer) 74.0 BUN/Creatinine Ratio 36.6 H (10-20) Glucose 225 H (70-99) mg/dl POC Glucose 240 H (70-99) Calcium 9.7 (8.5-10.1) mg/dl 08/04/19 08/04/19 08/04/19 Range/Units 20:38 17:25 12:03 WBC (4.8-10.8) K/uL RBC (4.7-6.1) M/uL Hgb (14.0-18.0) g/dL Hct (42-52) % MCV (80-100) fL MCH (25-34) pg MCHC (32-36) g/dL RDW Std Deviation (36.4-46.3) fL RDW Coeff of Naomi (11.5-14.5) % Plt Count (130-400) K/uL MPV (7.4-10.4) fL Sodium (136-145) mmol/L Potassium (3.5-5.1) mmol/L Chloride (98-107) mmol/L Carbon Dioxide (21-32) mmol/L Anion Gap (3-11) BUN (7-18) mg/dl Creatinine (0.6-1.4) mg/dl Est Cr Clr Drug Dosing ml/min Est GFR ( Amer) Est GFR (Non-Af Amer) BUN/Creatinine Ratio (10-20) Glucose (70-99) mg/dl POC Glucose 271 H 269 H 236 H (70-99) Calcium (8.5-10.1) mg/dl 08/04/19 Range/Units 08:19 WBC (4.8-10.8) K/uL RBC (4.7-6.1) M/uL Hgb (14.0-18.0) g/dL Hct (42-52) % MCV (80-100) fL MCH (25-34) pg MCHC (32-36) g/dL RDW Std Deviation (36.4-46.3) fL RDW Coeff of Naomi (11.5-14.5) % Plt Count (130-400) K/uL MPV (7.4-10.4) fL Sodium (136-145) mmol/L Potassium (3.5-5.1) mmol/L Chloride (98-107) mmol/L Carbon Dioxide (21-32) mmol/L Anion Gap (3-11) BUN (7-18) mg/dl Creatinine (0.6-1.4) mg/dl Est Cr Clr Drug Dosing ml/min Est GFR ( Amer) Est GFR (Non-Af Amer) BUN/Creatinine Ratio (10-20) Glucose (70-99) mg/dl POC Glucose 211 H (70-99) Calcium (8.5-10.1) mg/dl Medications Administered Current Inpatient Medications Acetaminophen (Tylenol) 650 mg PO Q4H PRN PRN Reason: Pain or Fever Stop: 08/28/19 20:34 Last Admin: 08/02/19 05:18 Dose: 650 mg Documented by: Albuterol (Ventolin Hfa) 2 puffs INH Q6H PRN PRN Reason: Shortness Of Breath Stop: 08/28/19 20:34 Apixaban (Eliquis) 5 mg PO BID [facility] Stop: 09/03/19 20:59 Last Admin: 08/04/19 21:58 Dose: 5 mg Documented by: Ascorbic Acid (Vitamin C) 1,000 mg PO DAILY [facility] Stop: 08/29/19 08:59 Last Admin: 08/04/19 08:49 Dose: 1,000 mg Documented by: Aspirin (Ecotrin Ectab) 81 mg PO QAM [facility] Stop: 09/02/19 20:59 Last Admin: 08/04/19 08:54 Dose: 81 mg Documented by: Atorvastatin Calcium (Lipitor) 20 mg PO DAILY [facility] Stop: 08/29/19 08:59 Last Admin: 08/04/19 08:52 Dose: 20 mg Documented by: Baclofen (Lioresal) 10 mg PO DAILY [facility] Stop: 08/29/19 08:59 Last Admin: 08/04/19 08:52 Dose: 10 mg Documented by: Bisacodyl (Dulcolax) 10 mg OK BID PRN PRN Reason: Constipation Stop: 09/03/19 22:52 Dextrose (Dextrose 50%) 25 - 50 ml IV UD PRN; Protocol PRN Reason: Hypoglycemia Protocol Stop: 08/28/19 20:44 Digoxin (Lanoxin) 0.125 mg PO DAILY@1600 [facility] Stop: 08/28/19 20:34 Last Admin: 08/04/19 15:20 Dose: 0.125 mg Documented by: Enalapril Maleate (Vasotec) 20 mg PO BID [facility] Stop: 08/28/19 20:59 Last Admin: 08/04/19 22:13 Dose: 20 mg Documented by: Fentanyl (Duragesic) 25 mcg TD Q72H [facility] Stop: 08/14/19 21:44 Last Admin: 08/03/19 21:09 Dose: 25 mcg Documented by: Finasteride (Proscar) 5 mg PO DAILY [facility] Stop: 08/29/19 08:59 Last Admin: 08/04/19 08:50 Dose: 5 mg Documented by: Furosemide (Lasix) 20 mg PO TuThSa@0900 [facility] Stop: 08/30/19 08:59 Last Admin: 08/04/19 08:50 Dose: 20 mg Documented by: Glucagon (Glucagen) 1 mg IM UD PRN; Protocol PRN Reason: Hypoglycemia Protocol Stop: 08/28/19 20:44 Glucose (Glucose 40%) 15 - 30 gm PO UD PRN; Protocol PRN Reason: Hypoglycemia Protocol Stop: 08/28/19 20:44 Glucose (Dex4 Glucose) 4 - 8 tabs PO UD PRN; Protocol PRN Reason: Hypoglycemia Protocol Stop: 08/28/19 20:44 Insulin Aspart (Novolog Flexpen) 0 units SC ACHS [facility] Stop: 09/02/19 11:29 Last Admin: 08/04/19 22:15 Dose: 8 units Documented by: Insulin Glargine (Lantus Solostar Pen) 5 units SC BID [facility] Stop: 09/04/19 08:59 Lidocaine (Lidoderm 5%) 2 patch TD QAM [facility] Stop: 09/01/19 08:59 Last Admin: 08/04/19 08:54 Dose: 2 patch Documented by: Metoprolol Succinate (Toprol Xl) 12.5 mg PO BID [facility] Stop: 08/28/19 20:59 Last Admin: 08/04/19 22:13 Dose: 12.5 mg Documented by: Miscellaneous (Fentanyl Patch Check Placement) 1 ea N/A QS [facility] Stop: 08/29/19 00:00 Last Admin: 08/04/19 23:54 Dose: 1 ea Documented by: Miscellaneous (Carbohydrates For Hypoglycemia) 15 - 30 gm PO UD PRN PRN Reason: Hypoglycemia Treatment Stop: 08/28/19 20:44 Miscellaneous (Fentanyl Patch Remove & Waste) 1 ea N/A Q3D@2144 [facility] Stop: 08/30/19 21:43 Last Admin: 08/03/19 21:08 Dose: 1 ea Documented by: Miscellaneous (Remove Lidoderm Patch) 1 ea N/A DAILY@2100 [facility] Stop: 09/01/19 20:59 Last Admin: 08/04/19 22:13 Dose: 1 ea Documented by: Nitroglycerin (Nitrostat) 0.4 mg SL UD PRN PRN Reason: Chest Pain Stop: 08/28/19 20:34 Ondansetron HCl (Zofran) 4 mg IV Q6H PRN PRN Reason: Nausea Stop: 08/28/19 20:34 Oxycodone HCl (Roxicodone Immediate Rel) 15 mg PO Q4 PRN PRN Reason: Pain Stop: 08/12/19 20:34 Last Admin: 08/04/19 19:21 Dose: 15 mg Documented by: Pantoprazole Sodium (Protonix) 40 mg PO DAILY [facility]; Protocol Stop: 08/29/19 08:59 Last Admin: 08/04/19 08:50 Dose: 40 mg Documented by: Polyethylene Glycol (Miralax Powder Packet) 17 gm PO DAILY [facility] Stop: 08/29/19 08:59 Last Admin: 08/04/19 08:57 Dose: 17 gm Documented by: Pregabalin (Lyrica) 25 mg PO TID [facility] Stop: 08/28/19 20:59 Last Admin: 08/04/19 22:17 Dose: 25 mg Documented by: Ranitidine HCl (Zantac) 150 mg PO BID PRN PRN Reason: Gastric Reflux Stop: 08/28/19 20:34 Fluticasone/Salmeterol (Advair Diskus 250/50) 1 puffs INH BID [facility] Stop: 08/28/19 20:59 Last Admin: 08/04/19 22:10 Dose: 1 puffs Documented by: Sennosides (Senokot) 8.6 mg PO QAM [facility] Stop: 09/01/19 15:29 Last Admin: 08/04/19 08:51 Dose: 8.6 mg Documented by: Trimethoprim/Sulfamethoxazole (Septra Ds 800/160mg Tab) 1 tab PO BID [facility] Stop: 08/08/19 20:59 Last Admin: 08/04/19 22:12 Dose: 1 tab Documented by: Varenicline (Chantix) 1 mg PO BID [facility] Stop: 08/28/19 20:59 Last Admin: 08/04/19 22:11 Dose: 1 mg Documented by: Vitamin B Complex (Vitamin B Complex) 1 tab PO DAILY [facility] Stop: 08/29/19 08:59 Last Admin: 08/04/19 08:50 Dose: 1 tab Documented by: Vitamin D (Vitamin D3) 5,000 units PO DAILY [facility] Stop: 08/29/19 08:59 Last Admin: 08/04/19 08:53 Dose: 5,000 units Documented by: (1) Multiple closed fractures of ribs of left side Encounter type: initial encounter Qualified Code(s): S22.42XA - Multiple fractures of ribs, left side, initial encounter for closed fracture
[2019-08-05] MEDS: CHECK FENTANYL PATCH PLACEMENT SCH ×3 (08:38→23:36)
[2019-08-05] MEDS: ATORVASTATIN 20 MG TAB PO SCH (08:39)
[2019-08-05] MEDS: OXYCODONE HCL IR 5 MG TAB (IMMEDIATE RELEASE) PO PRN ×3 (08:39→18:59)
[2019-08-05] MEDS: FLUTICASONE/SALMETEROL 250/50 (ADVAIR) 14 PUFF/1 INHALER INH SCH ×2 (08:39→20:41)
[2019-08-05] MEDS: CHOLECALCIFEROL 1,000 UNITS TAB PO SCH (08:39)
[2019-08-05] MEDS: FINASTERIDE 5 MG TAB PO SCH (08:40)
[2019-08-05] MEDS: ASCORBIC ACID 500 MG TAB PO SCH (08:40)
[2019-08-05] MEDS: PANTOprazole 40 MG TAB PO SCH (08:40)
[2019-08-05] MEDS: SENNA 8.6 MG TAB PO SCH (08:41)
[2019-08-05] MEDS: ENALAPRIL MALEATE 10 MG TAB PO SCH ×2 (08:41→20:42)
[2019-08-05] MEDS: VITAMIN B COMPLEX TAB PO SCH (08:41)
[2019-08-05] MEDS: SULFAMETHOXAZOLE/TRIMETHOPRIM DS 800/160MG TAB PO SCH ×2 (08:41→20:43)
[2019-08-05] MEDS: ASPIRIN 81 MG ECTAB PO SCH (08:41)
[2019-08-05] MEDS: METOPROLOL SUCC 25MG EXT REL TAB PO SCH ×2 (08:41→20:43)
[2019-08-05] MEDS: BACLOFEN 10 MG TAB PO SCH (08:41)
[2019-08-05] MEDS: APIXABAN 2.5 MG TAB PO SCH ×2 (08:42→20:43)
[2019-08-05] MEDS: PREGABALIN 25 MG CAP PO SCH ×3 (08:42→20:45)
[2019-08-05] MEDS: VARENICLINE 1 MG TAB PO SCH ×2 (08:42→20:42)
[2019-08-05] MEDS: LIDOCAINE 5% 1 PATCH TD SCH ×2 (08:43→11:06)
[2019-08-05] MEDS: INSULIN GLARGINE SOLOSTAR 100 UNITS/ML 3 ML PEN SC SCH ×2 (08:44→20:44)
[2019-08-05] MEDS: POLYETHYLENE (MIRALAX) 17 GM PACK PO SCH (08:46)
[2019-08-05] MEDS: INSULIN ASPART 100 UNITS/ML 3 ML PEN SC SCH ×4 (08:46→20:46)
[2019-08-05] MEDS ORDERED: APIXABAN 2.5 MG TAB PO SCH (09:00)
[2019-08-05] MEDS: DIGOXIN 0.125 MG TAB PO SCH (16:27)
[2019-08-05] MEDS: SOD PHOSPHATE/SOD BIPHOSPHATE ENEMA 132 ML BTL PR SCH (19:01)
[2019-08-06] MEDS: OXYCODONE HCL IR 5 MG TAB (IMMEDIATE RELEASE) PO PRN ×4 (02:14→17:47)
[2019-08-06 05:01] LABS: Hematocrit (blood only) 42.9 % (42-52); Hemoglobin 14.2 g/dL (14.0-18.0); Mean Corpuscular Hemoglobin 29.3 pg (25-34); Mean Corpuscular Hgb Conc 33.1 g/dL (32-36); Mean Corpuscular Volume 88.6 fL (80-100); Mean Platelet Volume 11.3 fL (7.4-10.4); Platelet Count 216 K/uL (130-400); RDW Coefficient of Variation 16.7 % (11.5-14.5); RDW Standard Deviation 54.8 fL (36.4-46.3); Red Blood Count 4.84 M/uL (4.7-6.1); White Blood Count 9.69 K/uL (4.8-10.8)
[2019-08-06 05:27] LABS: BUN Creatinine Ratio 35.1 (10-20); Calcium 9.5 mg/dl (8.5-10.1); Creatinine Clr Calc Pharmacy 65.7 ml/min; Est GFR (African American) 74.1; Est GFR (Non-African American) 63.9; Magnesium 1.6 mg/dl (1.8-2.4); Potassium 5.2 mmol/L (3.5-5.1)
[2019-08-06] MEDS: SOD PHOSPHATE/SOD BIPHOSPHATE ENEMA 132 ML BTL PR SCH (08:32)
--- NOTE | 2019-08-06 08:32 | Pain Management Progress Note ---
Date of Service August 06, 2019 Assessment & Plan (1) Multiple closed fractures of ribs of left side: Encounter type: initial encounter Qualified Code(s): S22.42XA - Multiple fractures of ribs, left side, initial encounter for closed fracture (2) CMT (Nfywyon-Luste-Abamf disease): (3) Cellulitis: Site of cellulitis: buttock Qualified Code(s): L03.317 - Cellulitis of buttock (4) Opioid dependence: 1. Recommend continuation of Lyrica, Lidoderm patches, bowel regimen at this time. 2. Recommend increasing fentanyl to 37.5 mcg every 72 hours and continuing OxyIR 15 mg p.o. every 6 as needed pain. 3. Recommend solitary dose of mag citrate this morning to augment bowel regimen. Consider Relistor should this fail to to produce bowel movement. 4. Pleased with the patient has had mild response to the intercostal nerve block. Could consider repeat as an outpatient. 5. Will follow back up with the patient tomorrow morning to confirm efficacy of increased narcotics as well as bowel regimen. Subjective 74-year-old white male admitted after a fall on 07/29/2019 and diagnosed with with left sided 7 through 9 rib fractures. He is status post a left 7 through 9 intercostal nerve block performed on 08/03/2019 with mild benefit in diminishing his overall pain. He continues on fentanyl 25 mcg every 72 hour patches as well as OxyIR 15 mg p.o. every 6 as needed. He notes his pain is still significant with coughing and deep breathing. Pain is 5 out of 10 at rest but can escalate to 8 out of 10 with movement or coughing. Pain is characterized as sharp and stabbing not radicular. He denies any side effects from Lyrica or opiate dosing with the exception of constipation. He does note a small bowel movement yesterday but still feels that he has significant stool volume. He denies any other constitutional complaints on today's examination. Physical Exam Physical Exam: General: 74yoM moving from bed to chair with the assist of 2 nurses this morning and appears to have no acute distress at this time. Speech and thought process appropriate. Mood and affect was appropriate. Cognition was intact. Cervical spine: A posterior cervical fusion is noted with loss of typical cervical lordosis. Chest: Moderate tenderness over the left posteriolateral chest wall. Patient is tender to AP and lateral compression of the chest wall. He is tender to palpation along the posterior lateral chest wall to direct palpation at approximate level of the T7-9 ribs. Injection sites from intercostal nerve block are well-healed without erythema fluctuance drainage. Extremities: Patient has significant thickening of MCP, PIP and DIP joints on bilateral hands with flexion contraction. Chronic erythematous change involving the foot and ankle and distal pretibial region bilaterally with trace edema. Significant hallux valgus as well as acquired claw toe of the right foot. OPTi foam noted over the sacral region. Lumbosacral spine: Loss of lumbar lordosis is noted without significant tenderness on examination today. Neurologic: Cranial nerves grossly intact. Gait is slow with the assist of a rolling walker.
[2019-08-06] MEDS: POLYETHYLENE (MIRALAX) 17 GM PACK PO SCH (08:35)
[2019-08-06] MEDS: PREGABALIN 25 MG CAP PO SCH ×3 (08:36→20:51)
[2019-08-06] MEDS: FLUTICASONE/SALMETEROL 250/50 (ADVAIR) 14 PUFF/1 INHALER INH SCH ×2 (08:37→20:39)
[2019-08-06] MEDS: METOPROLOL SUCC 25MG EXT REL TAB PO SCH ×2 (08:38→20:47)
[2019-08-06] MEDS: PANTOprazole 40 MG TAB PO SCH (08:38)
[2019-08-06] MEDS: BACLOFEN 10 MG TAB PO SCH (08:39)
[2019-08-06] MEDS: CHOLECALCIFEROL 1,000 UNITS TAB PO SCH (08:39)
[2019-08-06] MEDS: SULFAMETHOXAZOLE/TRIMETHOPRIM DS 800/160MG TAB PO SCH (08:39)
[2019-08-06] MEDS: ASPIRIN 81 MG ECTAB PO SCH (08:40)
[2019-08-06] MEDS: ENALAPRIL MALEATE 10 MG TAB PO SCH ×2 (08:40→20:47)
[2019-08-06] MEDS: ASCORBIC ACID 500 MG TAB PO SCH (08:40)
[2019-08-06] MEDS: FINASTERIDE 5 MG TAB PO SCH (08:40)
[2019-08-06] MEDS: ATORVASTATIN 20 MG TAB PO SCH (08:41)
[2019-08-06] MEDS: VARENICLINE 1 MG TAB PO SCH ×2 (08:41→20:40)
[2019-08-06] MEDS: SENNA 8.6 MG TAB PO SCH (08:41)
[2019-08-06] MEDS: VITAMIN B COMPLEX TAB PO SCH (08:41)
[2019-08-06] MEDS: LIDOCAINE 5% 1 PATCH TD SCH (08:44)
[2019-08-06] MEDS ORDERED: MAGNESIUM CITRATE 296 ML/BTL PO SCH (08:45)
[2019-08-06] MEDS: APIXABAN 5 MG TABLET PO SCH ×2 (08:47→20:40)
[2019-08-06] MEDS: INSULIN ASPART 100 UNITS/ML 3 ML PEN SC SCH ×5 (08:55→20:49)
[2019-08-06] MEDS: INSULIN GLARGINE SOLOSTAR 100 UNITS/ML 3 ML PEN SC SCH ×2 (08:57→20:42)
[2019-08-06] MEDS ORDERED: fentaNYL 12 MCG/HR TDSY TD SCH (09:00)
[2019-08-06] MEDS ORDERED: fentaNYL 25 MCG/HR TDSY TD SCH (09:00)
[2019-08-06] MEDS ORDERED: SODIUM POLYSTYRENE SULFONATE 15G/60ML SUSP PO ONE (09:00)
[2019-08-06] MEDS: CHECK FENTANYL PATCH PLACEMENT SCH ×2 (09:01→16:12)
--- NOTE | 2019-08-06 09:28 | Hospitalist Progress Note ---
Date of Service August 06, 2019 Assessment & Plan (1) Multiple closed fractures of ribs of left side: Osteoporosis with current osteoporotic fracture of L sided ribs S/p losing balance and fall cont pain control , incentive spirometry pt denies of any SOB , florez Pain due to multiple rib fractures Pain more difficult to control, as patient has also history of chronic pain Pain management consulted for their input, pt is now s/p left 7,8,9 intercostal nerve block (08/03/2019) At home takes oxycodone, which has not been adequate while in the hospital, pain management was consulted, and recommended to increase his oxycodone to 10 to 20 mg every 6 hours as needed, and increase fentanyl to 37.5 MCG every 72 hours -Continue Lyrica, Lidoderm patches Opiate-induced constipation -Very difficult to manage, patient received multiple different bowel regimens, will adjust again -Discussed the importance of bowel regimen to prevent constipation, while on opiates Sacral cellulitis -Started treatment with Bactrim, with his PCP prior to his admission to the hospital, he finished his course, will d/c -continue wound care,plan to bring a special pillow for him to help take pressure off sacrum Mild hyperkalemia - K 5.2 -Most likely secondary to current Bactrim use -We will discontinue Bactrim as patient has finished his antibiotic course for cellulitis -We will give Kayexalate, and will continue to monitor (2) Choledocholithiasis: incidental finding in CT abdomen /pelvis USG of liver shows no stone in biliary duct pt has hx of intermittent R upper quadrant colicky pain Held Eliquis for 3 days prior to procedure, re-started on (08/04/2019) Pt now s/p ERCP with sphincterotomy, balloon extraction of stones (08/02/2019) Tolerated procedure well Hx of paroxysmal Afib: cont on Digoxin Eliquis held for procedures (ERCP and nerve block), re-started on 08/04 (3) Spinal stenosis, lumbar region with neurogenic claudication: Appreciate input from Spinal surgery Dr Conde Patient had a MRI from December 2017 of lumbar spine : demonstrate severe multilevel facet arthropathy with significant spinal stenosis at L3-4. repeat MRI ordered to assess new changes (patient declined the study as he was in too much pain) Patient discussed with Dr. Conde, that he can do MRI in an outpatient setting, and he will follow-up with Dr. Conde (4) Diabetes mellitus type 2, uncontrolled: cont Insulin SSI CODE STATUS : FULL CODE DVT prophylaxis : Eliquis ordered for SCD and teds encourage to ambulate DISPOSITION : Plan to discharge to acute rehab Subjective Pt is sitting up in chair, in no acute distress. Nursing staff at the bedside. Denies any fever, chills, chest pain, shortness of breath, nausea, vomiting. Also discussed the next steps and discharge, pt thinks he is not ready to return home after this hospital stay and agrees that he needs PT. Today K mildly elevated, will give Kayexalate. Pain management following, appreciate their input. Review of Systems Review of Systems: All systems reviewed & are unremarkable except as noted in HPI & below Constitutional: no fever and no chills Respiratory: no cough, no dyspnea and no pain on inspiration Cardiovascular: no chest pain, no dyspnea on exertion, no palpitations and no edema Gastrointestinal: + abdominal pain and + constipation; no nausea and no vomiting Physical Exam Physical Exam: Physical Exam: Constitutional: Elderly male lying in bed, in no acute distress, WD/WN + obese Eyes: PERRL, EOMI, conjunctivae normal, anicteric sclerae ENMT: external ear and nose normal, oropharynx normal Neck: trachea midline, no thyromegaly Respiratory: normal respiratory effort, lungs clear to auscultation Cardiovascular: Rate/Rhythm: regular rate and regular rhythm Gastrointestinal (Abdomen): + bowel sounds, soft, but somewhat distended,mildly tender to palp. diffusely, obese, no guarding Skin: warm and dry Neurologic: PERRL, EOMI, accommodation nl, no facial asymmetry, no dysarthria, moves all 4 extremities spontaneously Psychiatric: A+Ox3, euthymic affect Lymphatic: no cervical or axillary lymphadenopathy Results & Data Vital Signs (Past 12 Hours) Vital Signs Temp Pulse Resp BP Pulse Ox 08/06/19 07:00 36.4 C L 58 L 16 118/73 94 08/05/19 22:56 36.5 C 73 16 115/71 93 Laboratory Results 08/06/19 08/06/19 08/06/19 Range/Units 08:01 04:46 04:46 WBC 9.69 (4.8-10.8) K/uL RBC 4.84 (4.7-6.1) M/uL Hgb 14.2 (14.0-18.0) g/dL Hct 42.9 (42-52) % MCV 88.6 (80-100) fL MCH 29.3 (25-34) pg MCHC 33.1 (32-36) g/dL RDW Std Deviation 54.8 H (36.4-46.3) fL RDW Coeff of Naomi 16.7 H (11.5-14.5) % Plt Count 216 (130-400) K/uL MPV 11.3 H (7.4-10.4) fL Sodium 132 L (136-145) mmol/L Potassium 5.2 H (3.5-5.1) mmol/L Chloride 99 (98-107) mmol/L Carbon Dioxide 24 (21-32) mmol/L Anion Gap 9.0 (3-11) BUN 40 H (7-18) mg/dl Creatinine 1.14 (0.6-1.4) mg/dl Est Cr Clr Drug Dosing 65.7 ml/min Est GFR ( Amer) 74.1 Est GFR (Non-Af Amer) 63.9 BUN/Creatinine Ratio 35.1 H (10-20) Glucose 234 H (70-99) mg/dl POC Glucose 206 H (70-99) Calcium 9.5 (8.5-10.1) mg/dl Magnesium 1.6 L (1.8-2.4) mg/dl 08/05/19 08/05/19 08/05/19 Range/Units 20:33 17:06 12:11 WBC (4.8-10.8) K/uL RBC (4.7-6.1) M/uL Hgb (14.0-18.0) g/dL Hct (42-52) % MCV (80-100) fL MCH (25-34) pg MCHC (32-36) g/dL RDW Std Deviation (36.4-46.3) fL RDW Coeff of Naomi (11.5-14.5) % Plt Count (130-400) K/uL MPV (7.4-10.4) fL Sodium (136-145) mmol/L Potassium (3.5-5.1) mmol/L Chloride (98-107) mmol/L Carbon Dioxide (21-32) mmol/L Anion Gap (3-11) BUN (7-18) mg/dl Creatinine (0.6-1.4) mg/dl Est Cr Clr Drug Dosing ml/min Est GFR ( Amer) Est GFR (Non-Af Amer) BUN/Creatinine Ratio (10-20) Glucose (70-99) mg/dl POC Glucose 222 H 214 H 260 H (70-99) Calcium (8.5-10.1) mg/dl Magnesium (1.8-2.4) mg/dl Medications Administered Current Inpatient Medications Acetaminophen (Tylenol) 650 mg PO Q4H PRN PRN Reason: Pain or Fever Stop: 08/28/19 20:34 Last Admin: 08/02/19 05:18 Dose: 650 mg Documented by: Albuterol (Ventolin Hfa) 2 puffs INH Q6H PRN PRN Reason: Shortness Of Breath Stop: 08/28/19 20:34 Apixaban (Eliquis) 5 mg PO BID [facility] Stop: 09/05/19 08:59 Last Admin: 08/06/19 08:47 Dose: 5 mg Documented by: Ascorbic Acid (Vitamin C) 1,000 mg PO DAILY [facility] Stop: 08/29/19 08:59 Last Admin: 08/06/19 08:40 Dose: 1,000 mg Documented by: Aspirin (Ecotrin Ectab) 81 mg PO QAM [facility] Stop: 09/02/19 20:59 Last Admin: 08/06/19 08:40 Dose: 81 mg Documented by: Atorvastatin Calcium (Lipitor) 20 mg PO DAILY [facility] Stop: 08/29/19 08:59 Last Admin: 08/06/19 08:41 Dose: 20 mg Documented by: Baclofen (Lioresal) 10 mg PO DAILY [facility] Stop: 08/29/19 08:59 Last Admin: 08/06/19 08:39 Dose: 10 mg Documented by: Bisacodyl (Dulcolax) 10 mg PA BID PRN PRN Reason: Constipation Stop: 09/03/19 22:52 Last Admin: 08/05/19 16:27 Dose: 10 mg Documented by: Dextrose (Dextrose 50%) 25 - 50 ml IV UD PRN; Protocol PRN Reason: Hypoglycemia Protocol Stop: 08/28/19 20:44 Digoxin (Lanoxin) 0.125 mg PO DAILY@1600 [facility] Stop: 08/28/19 20:34 Last Admin: 08/05/19 16:27 Dose: 0.125 mg Documented by: Diphenhydramine HCl (Benadryl Capsule) 25 mg PO HS PRN PRN Reason: insomnia Stop: 09/04/19 22:03 Enalapril Maleate (Vasotec) 20 mg PO BID [facility] Stop: 08/28/19 20:59 Last Admin: 08/06/19 08:40 Dose: 20 mg Documented by: Fentanyl (Duragesic) 25 mcg TD Q72H [facility] Stop: 08/20/19 08:59 Last Admin: 08/06/19 08:57 Dose: 25 mcg Documented by: Fentanyl (Duragesic) 12 mcg TD Q72H [facility] Stop: 08/20/19 08:59 Last Admin: 08/06/19 08:51 Dose: 12 mcg Documented by: Finasteride (Proscar) 5 mg PO DAILY [facility] Stop: 08/29/19 08:59 Last Admin: 08/06/19 08:40 Dose: 5 mg Documented by: Furosemide (Lasix) 20 mg PO TuThSa@0900 [facility] Stop: 08/30/19 08:59 Last Admin: 08/04/19 08:50 Dose: 20 mg Documented by: Glucagon (Glucagen) 1 mg IM UD PRN; Protocol PRN Reason: Hypoglycemia Protocol Stop: 08/28/19 20:44 Glucose (Glucose 40%) 15 - 30 gm PO UD PRN; Protocol PRN Reason: Hypoglycemia Protocol Stop: 08/28/19 20:44 Glucose (Dex4 Glucose) 4 - 8 tabs PO UD PRN; Protocol PRN Reason: Hypoglycemia Protocol Stop: 08/28/19 20:44 Insulin Aspart (Novolog Flexpen) 0 units SC ACHS [facility] Stop: 09/02/19 11:29 Last Admin: 08/06/19 08:55 Dose: 9 units Documented by: Insulin Glargine (Lantus Solostar Pen) 5 units SC BID [facility] Stop: 09/04/19 08:59 Last Admin: 08/06/19 08:57 Dose: 5 units Documented by: Lidocaine (Lidoderm 5%) 2 patch TD QAM [facility] Stop: 09/01/19 08:59 Last Admin: 08/06/19 08:44 Dose: 2 patch Documented by: Magnesium Citrate (Citrate) 148 ml PO TODAY@0845 [facility] Stop: 08/06/19 12:00 Metoprolol Succinate (Toprol Xl) 12.5 mg PO BID [facility] Stop: 08/28/19 20:59 Last Admin: 08/06/19 08:38 Dose: 12.5 mg Documented by: Miscellaneous (Carbohydrates For Hypoglycemia) 15 - 30 gm PO UD PRN PRN Reason: Hypoglycemia Treatment Stop: 08/28/19 20:44 Miscellaneous (Remove Lidoderm Patch) 1 ea N/A DAILY@2100 [facility] Stop: 09/01/19 20:59 Last Admin: 08/05/19 20:47 Dose: 1 ea Documented by: Miscellaneous (Fentanyl Patch Check Placement) 1 ea N/A QS [facility] Stop: 09/05/19 15:59 Miscellaneous (Fentanyl Patch Remove & Waste) 1 ea N/A Q3D@0845 [facility] Stop: 09/05/19 08:44 Last Admin: 08/06/19 08:56 Dose: 1 ea Documented by: Nitroglycerin (Nitrostat) 0.4 mg SL UD PRN PRN Reason: Chest Pain Stop: 08/28/19 20:34 Ondansetron HCl (Zofran) 4 mg IV Q6H PRN PRN Reason: Nausea Stop: 08/28/19 20:34 Oxycodone HCl (Roxicodone Immediate Rel) 15 mg PO Q4 PRN PRN Reason: Pain Stop: 08/12/19 20:34 Last Admin: 08/06/19 07:34 Dose: 15 mg Documented by: Pantoprazole Sodium (Protonix) 40 mg PO DAILY [facility]; Protocol Stop: 08/29/19 08:59 Last Admin: 08/06/19 08:38 Dose: 40 mg Documented by: Polyethylene Glycol (Miralax Powder Packet) 17 gm PO DAILY [facility] Stop: 08/29/19 08:59 Last Admin: 08/06/19 08:35 Dose: 17 gm Documented by: Pregabalin (Lyrica) 25 mg PO TID [facility] Stop: 08/28/19 20:59 Last Admin: 08/06/19 08:36 Dose: 25 mg Documented by: Ranitidine HCl (Zantac) 150 mg PO BID PRN PRN Reason: Gastric Reflux Stop: 08/28/19 20:34 Fluticasone/Salmeterol (Advair Diskus 250/50) 1 puffs INH BID [facility] Stop: 08/28/19 20:59 Last Admin: 08/06/19 08:37 Dose: 1 puffs Documented by: Sennosides (Senokot) 8.6 mg PO QAM [facility] Stop: 09/01/19 15:29 Last Admin: 08/06/19 08:41 Dose: 8.6 mg Documented by: Sodium Biphosphate/Sodium Phosphate (Fleet Enema) 132 ml PA DAILY [facility] Stop: 09/04/19 19:14 Last Admin: 08/06/19 08:32 Dose: Not Given Documented by: Trimethoprim/Sulfamethoxazole (Septra Ds 800/160mg Tab) 1 tab PO BID [facility] Stop: 08/08/19 20:59 Last Admin: 08/06/19 08:39 Dose: 1 tab Documented by: Varenicline (Chantix) 1 mg PO BID [facility] Stop: 08/28/19 20:59 Last Admin: 08/06/19 08:41 Dose: 1 mg Documented by: Vitamin B Complex (Vitamin B Complex) 1 tab PO DAILY [facility] Stop: 08/29/19 08:59 Last Admin: 08/06/19 08:41 Dose: 1 tab Documented by: Vitamin D (Vitamin D3) 5,000 units PO DAILY [facility] Stop: 08/29/19 08:59 Last Admin: 08/06/19 08:39 Dose: 5,000 units Documented by: (1) Multiple closed fractures of ribs of left side Encounter type: initial encounter Qualified Code(s): S22.42XA - Multiple fractures of ribs, left side, initial encounter for closed fracture
[2019-08-06] MEDS ORDERED: INSULIN GLARGINE SOLOSTAR 100 UNITS/ML 3 ML PEN SC ONE (09:45)
[2019-08-06] MEDS: ACETAMINOPHEN 325 MG TAB PO PRN (15:02)
[2019-08-06] MEDS: DIGOXIN 0.125 MG TAB PO SCH (17:09)
[2019-08-06] MEDS ORDERED: SOD PHOSPHATE/SOD BIPHOSPHATE ENEMA 132 ML BTL PR STA (18:24)
[2019-08-07] MEDS: CHECK FENTANYL PATCH PLACEMENT SCH ×4 (00:19→23:56)
[2019-08-07] MEDS: OXYCODONE HCL IR 5 MG TAB (IMMEDIATE RELEASE) PO PRN ×5 (03:35→22:28)
[2019-08-07] MEDS: FLUTICASONE/SALMETEROL 250/50 (ADVAIR) 14 PUFF/1 INHALER INH SCH ×2 (07:46→22:14)
[2019-08-07] MEDS: METOPROLOL SUCC 25MG EXT REL TAB PO SCH ×2 (07:47→23:55)
[2019-08-07] MEDS: ENALAPRIL MALEATE 10 MG TAB PO SCH ×2 (07:48→23:55)
[2019-08-07] MEDS: CHOLECALCIFEROL 1,000 UNITS TAB PO SCH (07:48)
[2019-08-07] MEDS: BACLOFEN 10 MG TAB PO SCH (07:48)
[2019-08-07] MEDS: PANTOprazole 40 MG TAB PO SCH (07:48)
[2019-08-07] MEDS: ASCORBIC ACID 500 MG TAB PO SCH (07:49)
[2019-08-07] MEDS: ASPIRIN 81 MG ECTAB PO SCH (07:49)
[2019-08-07] MEDS: FINASTERIDE 5 MG TAB PO SCH (07:49)
[2019-08-07] MEDS: ATORVASTATIN 20 MG TAB PO SCH (07:49)
[2019-08-07] MEDS: VITAMIN B COMPLEX TAB PO SCH (07:49)
[2019-08-07] MEDS: SENNA 8.6 MG TAB PO SCH (07:49)
[2019-08-07] MEDS: FUROSEMIDE 20 MG TAB PO SCH (07:49)
[2019-08-07] MEDS: VARENICLINE 1 MG TAB PO SCH ×2 (07:49→22:15)
[2019-08-07] MEDS: APIXABAN 5 MG TABLET PO SCH ×2 (07:49→22:15)
[2019-08-07] MEDS: LIDOCAINE 5% 1 PATCH TD SCH (07:50)
[2019-08-07] MEDS: SOD PHOSPHATE/SOD BIPHOSPHATE ENEMA 132 ML BTL PR SCH (07:50)
--- NOTE | 2019-08-07 08:21 | Pain Management Progress Note ---
Date of Service August 07, 2019 Assessment & Plan (1) Multiple closed fractures of ribs of left side: Encounter type: initial encounter Qualified Code(s): S22.42XA - Multiple fractures of ribs, left side, initial encounter for closed fracture (2) CMT (Wuqdwvo-Axyji-Djqpw disease): (3) Cellulitis: Site of cellulitis: buttock Qualified Code(s): L03.317 - Cellulitis of buttock (4) Opioid dependence: 1. Recommend continuation of current doses of fentanyl 37 mcg every 72 hours, OxyIR 50 mg p.o. every 6 as needed, Lyrica, Lidoderm patches, bowel regimen at discharge through his current PCP prescriber. 2. Pleased with the patient has had mild response to the intercostal nerve block. Could consider repeat as an outpatient, but recommend conservative management at this time as he seems to be improving. 3. Please call with any questions, will sign off at this time. Subjective 74-year-old white male admitted after a fall on 07/29/2019 and diagnosed with with left sided 7 through 9 rib fractures. He is status post a left 7 through 9 intercostal nerve block performed on 08/03/2019 with mild benefit in diminishing his overall pain. He reports significant benefit with escalation of fentanyl dosing to 37 mcg every 72 hour patches yesterday as well as continuation of OxyIR 15 mg p.o. every 6 as needed. He notes his pain is now tolerable rating it about 6 out of 10 and only escalates with more forceful coughing and deep breathing. Pain is 5-6 out of 10 currently. Pain is characterized as aching at rest but as sharp and stabbing with activity. He denies any side effects from Lyrica or opiate dosing with the exception of constipation which was alleviated yesterday with enema dosing. He reports he slept better last evening than he has in a significant portion of time. He denies any other constitutional complaints on today's examination. Physical Exam Physical Exam: General: 74yoM sitting in the bedside chair in no acute distress at this time. Speech and thought process appropriate. Mood and affect was appropriate. Cognition was intact. Cervical spine: A posterior cervical fusion is noted with loss of typical cervical lordosis. Chest: Mild to moderate tenderness over the left posteriolateral chest wall. Patient is tender to AP and lateral compression of the chest wall. He is tender to palpation along the posterior lateral chest wall to direct palpation at approximate level of the T7-9 ribs. Extremities: Patient has significant thickening of MCP, PIP and DIP joints on bilateral hands with flexion contraction. Chronic erythematous change involving the foot and ankle and distal pretibial region bilaterally with trace edema. Significant hallux valgus as well as acquired claw toe of the right foot. Lumbosacral spine: Loss of lumbar lordosis is noted without significant tenderness on examination today. Neurologic: Cranial nerves grossly intact. Gait not observed this morning
[2019-08-07] MEDS: INSULIN GLARGINE SOLOSTAR 100 UNITS/ML 3 ML PEN SC SCH ×2 (08:29→22:18)
[2019-08-07] MEDS: INSULIN ASPART 100 UNITS/ML 3 ML PEN SC SCH ×4 (08:30→22:15)
[2019-08-07] MEDS: POLYETHYLENE (MIRALAX) 17 GM PACK PO SCH (08:34)
[2019-08-07] MEDS: PREGABALIN 25 MG CAP PO SCH ×3 (08:35→22:15)
[2019-08-07 10:14] LABS: Hematocrit (blood only) 43.5 % (42-52); Hemoglobin 14.6 g/dL (14.0-18.0); Mean Corpuscular Hemoglobin 29.8 pg (25-34); Mean Corpuscular Hgb Conc 33.6 g/dL (32-36); Mean Corpuscular Volume 88.8 fL (80-100); Mean Platelet Volume 10.8 fL (7.4-10.4); Platelet Count 258 K/uL (130-400); RDW Coefficient of Variation 16.9 % (11.5-14.5); RDW Standard Deviation 54.6 fL (36.4-46.3); White Blood Count 12.15 K/uL (4.8-10.8)
[2019-08-07 10:49] LABS: BUN Creatinine Ratio 45.2 (10-20); Calcium 10.1 mg/dl (8.5-10.1); Creatinine Clr Calc Pharmacy 69.6 ml/min; Est GFR (African American) 79.1; Est GFR (Non-African American) 68.2; Potassium 5.1 mmol/L (3.5-5.1)
[2019-08-07] MEDS: DIGOXIN 0.125 MG TAB PO SCH (16:29)
--- NOTE | 2019-08-07 21:54 | Hospitalist Progress Note ---
Date of Service August 07, 2019 Assessment & Plan (1) Multiple closed fractures of ribs of left side: Osteoporosis with current osteoporotic fracture of L sided ribs S/p losing balance and fall cont pain control , incentive spirometry pt denies of any SOB , florez Pain due to multiple rib fractures Pain more difficult to control, as patient has also history of chronic pain Pain management consulted for their input, pt is now s/p left 7,8,9 intercostal nerve block (08/03/2019) At home takes oxycodone, which has not been adequate while in the hospital, pain management was consulted, and recommended to increase his oxycodone to 10 to 20 mg every 6 hours as needed, and increase fentanyl to 37.5 MCG every 72 hours -Continue Lyrica, Lidoderm patches Opiate-induced constipation -Patient finally had a bowel movement last night -Very difficult to manage, patient received multiple different bowel regimens, including several enemas -Discussed the importance of bowel regimen to prevent constipation, while on opiates Sacral cellulitis -Started treatment with Bactrim, with his PCP prior to his admission to the hospital, he finished his course, and bactrim was d/c'ed -continue wound care, use a special pillow to sit on to help take pressure off sacrum Mild hyperkalemia - resolved, K 5.1 today and Cr 1.08 - expect normal K level now when bactrim was stopped - yesterday K mildly elevated at 5.2 (2) Choledocholithiasis: incidental finding in CT abdomen /pelvis USG of liver shows no stone in biliary duct pt has a hx of intermittent R upper quadrant colicky pain Held Eliquis for 3 days prior to procedure, then re-started on (08/04/2019) Pt now s/p ERCP with sphincterotomy, balloon extraction of stones (08/02/2019) Tolerated procedure well, denies any abdominal pain, nausea, vomiting Hx of paroxysmal Afib cont on Digoxin Eliquis held for procedures (ERCP and nerve block), re-started on 08/04 (3) Spinal stenosis, lumbar region with neurogenic claudication: Appreciate input from Spinal surgery Dr Conde Patient had a MRI from December 2017 of lumbar spine : demonstrate severe multilevel facet arthropathy with significant spinal stenosis at L3-4. repeat MRI ordered to assess new changes (patient declined the study as he was in too much pain) Patient discussed with Dr. Conde, that he can do MRI in an outpatient setting, and he will follow-up with Dr. Conde (4) Diabetes mellitus type 2, uncontrolled: cont Insulin SSI CODE STATUS : FULL CODE DVT prophylaxis : Eliquis ordered for SCD and teds encourage to ambulate DISPOSITION : Plan to discharge to an acute rehab Subjective No acute events overnight. Patient finally had a large bowel movement yesterday, (constipation, opiate induced), and feels much better now. Denies any fevers, chills, chest pain or shortness of breath, abdominal discomfort now resolved, denies any nausea or vomiting. Daughter present at the bedside, discussed discharge to acute rehab, plans to take him tomorrow morning. Review of Systems Review of Systems: All systems reviewed & are unremarkable except as noted in HPI & below Constitutional: no fever and no chills Respiratory: no cough, no chest congestion and no dyspnea Cardiovascular: no chest pain, no dyspnea on exertion, no palpitations and no edema Gastrointestinal: no abdominal pain, no nausea and no vomiting Physical Exam Physical Exam: Physical Exam: Constitutional: Elderly male lying in bed, in no acute distress, WD/WN + obese Eyes: PERRL, EOMI, conjunctivae normal, anicteric sclerae ENMT: external ear and nose normal, oropharynx normal Neck: trachea midline, no thyromegaly Respiratory: normal respiratory effort, lungs clear to auscultation Cardiovascular: Rate/Rhythm: regular rate and regular rhythm Gastrointestinal (Abdomen): normal bowel sounds, soft, nontender, obese, no guarding Skin: warm and dry Neurologic: PERRL, EOMI, accommodation nl, no facial asymmetry, no dysarthria, moves all 4 extremities spontaneously Psychiatric: A+Ox3, euthymic affect Lymphatic: no cervical or axillary lymphadenopathy Results & Data Vital Signs (Past 12 Hours) Vital Signs Temp Pulse Pulse Resp BP Pulse Ox 08/07/19 16:29 68 08/07/19 15:22 36.8 C 68 16 93/53 L 93 Laboratory Results 08/07/19 08/07/19 08/07/19 Range/Units 20:23 17:00 11:58 WBC (4.8-10.8) K/uL RBC (4.7-6.1) M/uL Hgb (14.0-18.0) g/dL Hct (42-52) % MCV (80-100) fL MCH (25-34) pg MCHC (32-36) g/dL RDW Std Deviation (36.4-46.3) fL RDW Coeff of Naomi (11.5-14.5) % Plt Count (130-400) K/uL MPV (7.4-10.4) fL Sodium (136-145) mmol/L Potassium (3.5-5.1) mmol/L Chloride (98-107) mmol/L Carbon Dioxide (21-32) mmol/L Anion Gap (3-11) BUN (7-18) mg/dl Creatinine (0.6-1.4) mg/dl Est Cr Clr Drug Dosing ml/min Est GFR ( Amer) Est GFR (Non-Af Amer) BUN/Creatinine Ratio (10-20) Glucose (70-99) mg/dl POC Glucose 237 H 204 H 203 H (70-99) Calcium (8.5-10.1) mg/dl 08/07/19 08/07/19 08/07/19 Range/Units 09:58 09:58 08:12 WBC 12.15 H (4.8-10.8) K/uL RBC 4.90 (4.7-6.1) M/uL Hgb 14.6 (14.0-18.0) g/dL Hct 43.5 (42-52) % MCV 88.8 (80-100) fL MCH 29.8 (25-34) pg MCHC 33.6 (32-36) g/dL RDW Std Deviation 54.6 H (36.4-46.3) fL RDW Coeff of Naomi 16.9 H (11.5-14.5) % Plt Count 258 (130-400) K/uL MPV 10.8 H (7.4-10.4) fL Sodium 131 L (136-145) mmol/L Potassium 5.1 (3.5-5.1) mmol/L Chloride 97 L (98-107) mmol/L Carbon Dioxide 28 (21-32) mmol/L Anion Gap 6.0 (3-11) BUN 49 H (7-18) mg/dl Creatinine 1.08 (0.6-1.4) mg/dl Est Cr Clr Drug Dosing 69.6 ml/min Est GFR ( Amer) 79.1 Est GFR (Non-Af Amer) 68.2 BUN/Creatinine Ratio 45.2 H (10-20) Glucose 218 H (70-99) mg/dl POC Glucose 176 H (70-99) Calcium 10.1 (8.5-10.1) mg/dl Medications Administered Current Inpatient Medications Acetaminophen (Tylenol) 650 mg PO Q4H PRN PRN Reason: Pain or Fever Stop: 08/28/19 20:34 Last Admin: 08/06/19 15:02 Dose: 650 mg Documented by: Albuterol (Ventolin Hfa) 2 puffs INH Q6H PRN PRN Reason: Shortness Of Breath Stop: 08/28/19 20:34 Apixaban (Eliquis) 5 mg PO BID [facility] Stop: 09/05/19 08:59 Last Admin: 08/07/19 07:49 Dose: 5 mg Documented by: Ascorbic Acid (Vitamin C) 1,000 mg PO DAILY [facility] Stop: 08/29/19 08:59 Last Admin: 08/07/19 07:49 Dose: 1,000 mg Documented by: Aspirin (Ecotrin Ectab) 81 mg PO QAM [facility] Stop: 09/02/19 20:59 Last Admin: 08/07/19 07:49 Dose: 81 mg Documented by: Atorvastatin Calcium (Lipitor) 20 mg PO DAILY [facility] Stop: 08/29/19 08:59 Last Admin: 08/07/19 07:49 Dose: 20 mg Documented by: Baclofen (Lioresal) 10 mg PO DAILY [facility] Stop: 08/29/19 08:59 Last Admin: 08/07/19 07:48 Dose: 10 mg Documented by: Bisacodyl (Dulcolax) 10 mg [place] BID PRN PRN Reason: Constipation Stop: 09/03/19 22:52 Last Admin: 08/05/19 16:27 Dose: 10 mg Documented by: Dextrose (Dextrose 50%) 25 - 50 ml IV UD PRN; Protocol PRN Reason: Hypoglycemia Protocol Stop: 08/28/19 20:44 Digoxin (Lanoxin) 0.125 mg PO DAILY@1600 [facility] Stop: 08/28/19 20:34 Last Admin: 08/07/19 16:29 Dose: 0.125 mg Documented by: Diphenhydramine HCl (Benadryl Capsule) 25 mg PO HS PRN PRN Reason: insomnia Stop: 09/04/19 22:03 Enalapril Maleate (Vasotec) 20 mg PO BID [facility] Stop: 08/28/19 20:59 Last Admin: 08/07/19 07:48 Dose: 20 mg Documented by: Fentanyl (Duragesic) 25 mcg TD Q72H [facility] Stop: 08/20/19 08:59 Last Admin: 08/06/19 08:57 Dose: 25 mcg Documented by: Fentanyl (Duragesic) 12 mcg TD Q72H [facility] Stop: 08/20/19 08:59 Last Admin: 08/06/19 08:51 Dose: 12 mcg Documented by: Finasteride (Proscar) 5 mg PO DAILY [facility] Stop: 08/29/19 08:59 Last Admin: 08/07/19 07:49 Dose: 5 mg Documented by: Furosemide (Lasix) 20 mg PO TuThSa@0900 [facility] Stop: 08/30/19 08:59 Last Admin: 08/07/19 07:49 Dose: 20 mg Documented by: Glucagon (Glucagen) 1 mg IM UD PRN; Protocol PRN Reason: Hypoglycemia Protocol Stop: 08/28/19 20:44 Glucose (Glucose 40%) 15 - 30 gm PO UD PRN; Protocol PRN Reason: Hypoglycemia Protocol Stop: 08/28/19 20:44 Glucose (Dex4 Glucose) 4 - 8 tabs PO UD PRN; Protocol PRN Reason: Hypoglycemia Protocol Stop: 08/28/19 20:44 Insulin Aspart (Novolog Flexpen) 0 units SC ACHS [facility] Stop: 09/02/19 09:59 Last Admin: 08/07/19 18:26 Dose: 10 units Documented by: Insulin Glargine (Lantus Solostar Pen) 7 units SC BID [facility] Stop: 09/05/19 20:59 Last Admin: 08/07/19 08:29 Dose: 7 units Documented by: Lidocaine (Lidoderm 5%) 2 patch TD QAM [facility] Stop: 09/01/19 08:59 Last Admin: 08/07/19 07:50 Dose: 2 patch Documented by: Magnesium Oxide (Mag-Ox) 400 mg PO QAM [facility] Stop: 09/06/19 19:44 Metoprolol Succinate (Toprol Xl) 12.5 mg PO BID [facility] Stop: 08/28/19 20:59 Last Admin: 08/07/19 07:47 Dose: 12.5 mg Documented by: Miscellaneous (Carbohydrates For Hypoglycemia) 15 - 30 gm PO UD PRN PRN Reason: Hypoglycemia Treatment Stop: 08/28/19 20:44 Miscellaneous (Remove Lidoderm Patch) 1 ea N/A DAILY@2100 [facility] Stop: 09/01/19 20:59 Last Admin: 08/06/19 20:44 Dose: 1 ea Documented by: Miscellaneous (Fentanyl Patch Check Placement) 1 ea N/A QS [facility] Stop: 09/05/19 15:59 Last Admin: 08/07/19 16:28 Dose: 1 ea Documented by: Miscellaneous (Fentanyl Patch Remove & Waste) 1 ea N/A Q3D@0845 [facility] Stop: 09/05/19 08:44 Last Admin: 08/06/19 08:56 Dose: 1 ea Documented by: Nitroglycerin (Nitrostat) 0.4 mg SL UD PRN PRN Reason: Chest Pain Stop: 08/28/19 20:34 Ondansetron HCl (Zofran) 4 mg IV Q6H PRN PRN Reason: Nausea Stop: 08/28/19 20:34 Oxycodone HCl (Roxicodone Immediate Rel) 15 mg PO Q4 PRN PRN Reason: Pain Stop: 08/12/19 20:34 Last Admin: 08/07/19 18:31 Dose: 15 mg Documented by: Pantoprazole Sodium (Protonix) 40 mg PO DAILY [facility]; Protocol Stop: 08/29/19 08:59 Last Admin: 08/07/19 07:48 Dose: 40 mg Documented by: Polyethylene Glycol (Miralax Powder Packet) 17 gm PO DAILY [facility] Stop: 08/29/19 08:59 Last Admin: 08/07/19 08:34 Dose: 17 gm Documented by: Pregabalin (Lyrica) 25 mg PO TID [facility] Stop: 08/28/19 20:59 Last Admin: 08/07/19 13:39 Dose: 25 mg Documented by: Ranitidine HCl (Zantac) 150 mg PO BID PRN PRN Reason: Gastric Reflux Stop: 08/28/19 20:34 Fluticasone/Salmeterol (Advair Diskus 250/50) 1 puffs INH BID [facility] Stop: 08/28/19 20:59 Last Admin: 08/07/19 07:46 Dose: 1 puffs Documented by: Sennosides (Senokot) 8.6 mg PO QAM [facility] Stop: 09/01/19 15:29 Last Admin: 08/07/19 07:49 Dose: 8.6 mg Documented by: Sodium Biphosphate/Sodium Phosphate (Fleet Enema) 132 ml [place] DAILY [facility] Stop: 09/04/19 19:14 Last Admin: 08/07/19 07:50 Dose: Not Given Documented by: Varenicline (Chantix) 1 mg PO BID [facility] Stop: 08/28/19 20:59 Last Admin: 08/07/19 07:49 Dose: 1 mg Documented by: Vitamin B Complex (Vitamin B Complex) 1 tab PO DAILY [facility] Stop: 08/29/19 08:59 Last Admin: 08/07/19 07:49 Dose: 1 tab Documented by: Vitamin D (Vitamin D3) 5,000 units PO DAILY [facility] Stop: 08/29/19 08:59 Last Admin: 08/07/19 07:48 Dose: 5,000 units Documented by: (1) Multiple closed fractures of ribs of left side Encounter type: initial encounter Qualified Code(s): S22.42XA - Multiple fractures of ribs, left side, initial encounter for closed fracture
[2019-08-07] MEDS: MAGNESIUM OXIDE 400 MG TAB PO SCH (22:14)
[2019-08-08] MEDS: OXYCODONE HCL IR 5 MG TAB (IMMEDIATE RELEASE) PO PRN ×3 (04:08→13:12)
[2019-08-08] MEDS: CHECK FENTANYL PATCH PLACEMENT SCH ×2 (07:44→15:14)
[2019-08-08] MEDS: FLUTICASONE/SALMETEROL 250/50 (ADVAIR) 14 PUFF/1 INHALER INH SCH (08:18)
[2019-08-08] MEDS: MAGNESIUM OXIDE 400 MG TAB PO SCH (08:19)
[2019-08-08] MEDS: APIXABAN 5 MG TABLET PO SCH (08:20)
[2019-08-08] MEDS: ASCORBIC ACID 500 MG TAB PO SCH (08:20)
[2019-08-08] MEDS: VARENICLINE 1 MG TAB PO SCH (08:20)
[2019-08-08] MEDS: FINASTERIDE 5 MG TAB PO SCH (08:21)
[2019-08-08] MEDS: SENNA 8.6 MG TAB PO SCH (08:21)
[2019-08-08] MEDS: ASPIRIN 81 MG ECTAB PO SCH (08:21)
[2019-08-08] MEDS: METOPROLOL SUCC 25MG EXT REL TAB PO SCH (08:23)
[2019-08-08] MEDS: VITAMIN B COMPLEX TAB PO SCH (08:23)
[2019-08-08] MEDS: PANTOprazole 40 MG TAB PO SCH (08:23)
[2019-08-08] MEDS: ATORVASTATIN 20 MG TAB PO SCH (08:24)
[2019-08-08] MEDS: BACLOFEN 10 MG TAB PO SCH (08:24)
[2019-08-08] MEDS: ENALAPRIL MALEATE 10 MG TAB PO SCH (08:24)
[2019-08-08] MEDS: SOD PHOSPHATE/SOD BIPHOSPHATE ENEMA 132 ML BTL PR SCH (08:25)
[2019-08-08] MEDS: CHOLECALCIFEROL 1,000 UNITS TAB PO SCH (08:25)
[2019-08-08] MEDS: POLYETHYLENE (MIRALAX) 17 GM PACK PO SCH (08:33)
[2019-08-08] MEDS: PREGABALIN 25 MG CAP PO SCH ×2 (08:33→13:30)
[2019-08-08] MEDS: INSULIN GLARGINE SOLOSTAR 100 UNITS/ML 3 ML PEN SC SCH (08:37)
[2019-08-08] MEDS: INSULIN ASPART 100 UNITS/ML 3 ML PEN SC SCH ×2 (08:39→13:06)
[2019-08-08] MEDS: LIDOCAINE 5% 1 PATCH TD SCH (08:39)
[2019-08-08] MEDS ORDERED: POLYETHYLENE (MIRALAX) 17 GM PACK PO PRN (09:26)
--- NOTE | 2019-08-08 10:43 | Discharge Summary ---
Date of Service August 08, 2019 Admission HPI Per Admitting Provider A 74-year-old male with past medical history significant for type 2 diabetes, hypertriglyceridemia, diabetes with peripheral vascular disease, COPD, history of lung nodule, paroxysmal atrial fibrillation on Eliquis, chronic kidney disease stage III, hypertension, morbid obesity, GERD, BPH, bilateral foot drop, rotator cuff arthropathy of left shoulder, Brvuxkj-Plrbw-Wdrbm disease, neuropathy, tobacco use disorder, degenerative cervical spine stenosis. Presents with fall and left-sided rib fractures. The patient's daughter who is a nurse says that the patient was having chronic arthritis with severe pains which is limiting his ambulation, he generally uses a walker. A few days back he had left hip steroid shot which helped his pain in the left hip and today is the first time he went outside after a long time. They went to the [facility] pharmacy. He was using a cane and tripped over the curb and fell down on the left side. He did not hit his head, no loss of consciousness. Severe pain in his left ribcage on the posterior aspect. Imaging studies showed acute nondistracted left 7th, 8th, and 9th rib fractures. No pneumothorax. 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 There is question of choledocholithiasis, right-sided nephrolithiasis, moderate colon fecal retention. The patient also has significant pain medications at home and he recently was also having rash in his pannus and also cellulitis of the sacrum. He is on Bactrim started on 07/24/2019, to be taken until 08/03/2019. Daughter saw yesterday and the cellulitis seemed to be improving. Rash in the pannus also much improved using nystatin. No recent fever, chills. No headache, no dizziness, no blurred visions, no earache, no runny nose, no sore throat, no difficulty swallowing. Occasional cough. Has some shortness of breath on exertion from his COPD. No chest pain. Appetite is good. Does not sleep well. He is supposed to get a sleep study done by the end of this month. No nausea, no vomiting, no abdominal pain No diarrhea, somewhat is constipated. No blood in the stools or black stools. No burning micturition, no hematuria. Currently no Swelling in the legs. He takes Lasix 3 times a week, but did not take for the last 4 days. He is elevating his legs while sleeping. Currently resting comfortably and hemodynamically stable. On movement, he is having pain in his left ribcage.Had an episode of palpitations couple of days ago with sweating. Admission Exam Per Admitting Provider GENERAL: The patient is obese, not in acute distress. VITAL SIGNS: Temperature 36.6, pulse 82, respiratory rate 20, blood pressure 123/95, oxygen 96% on room air. HEENT: No pallor, no icterus. Pupils equal, round, and reactive to light. NECK: No JVD, no neck masses, no carotid bruits. CARDIOVASCULAR: S1, S2 heard, regular rate and rhythm, no murmur, no gallop. RESPIRATORY SYSTEM: Normal AP diameter. No accessory muscle use. No wheezing, no crackles. ABDOMEN: Soft, bowel sounds present, nontender. No distention. CENTRAL NERVOUS SYSTEM: Alert and awake and oriented. Cranial nerves II-XII grossly intact. Moves extremities. Nonfocal. EXTREMITIES: Mild chronic erythematous changes in the lower extremity, no edema seen. Principal Diagnosis Multiple closed fractures of ribs of left side, Pain d/t rib fractures and chronic pain, Opiate induced constipation, Sacral cellulitis, pAfib, spinal stenosis, DM type 2 Discharge Exam Physical Exam: Constitutional: Elderly male lying in bed, in no acute distress, WD/WN + obese Eyes: PERRL, EOMI, conjunctivae normal, anicteric sclerae ENMT: external ear and nose normal, oropharynx normal Neck: trachea midline, no thyromegaly Respiratory: normal respiratory effort, lungs clear to auscultation Cardiovascular: Rate/Rhythm: regular rate and regular rhythm Gastrointestinal (Abdomen): normal bowel sounds, soft, nontender, obese, no guarding Skin: warm and dry Neurologic: PERRL, EOMI, accommodation nl, no facial asymmetry, no dysarthria, moves all 4 extremities spontaneously Psychiatric: A+Ox3, euthymic affect Lymphatic: no cervical or axillary lymphadenopathy Discharge Data Allergies Allergy/AdvReac Type Severity Reaction Status Date / Time Penicillins Allergy Intermediate RASH Verified 07/29/19 14:54 Consultations 07/29/19 18:36 ED Decision to Admit Stat 07/29/19 20:35 Consult Case Management - Discharge Planning Routine 07/30/19 08:00 Consult Gastroenterology Routine Consult Orthopedic Surgery Routine 08/01/19 09:57 Consult Pain Management Routine Procedures Performed Operation Date: 08/02/19 12:15 Actual Procedures p Endoscopic Retrograde Cholangiopancreatogram(Not Applicable) - Anahy Hall MD Operation Date: 08/03/19 07:15 Actual Procedures p Left 7, 8, 9 Intercostal Nerve Block(Left) - Bishnu Connelly MD, FIPP Ordered Studies 07/29/19 15:05 CT abd pelvis IV con only Stat 07/29/19 15:07 CT cervical spine wo con Stat CT head/brain wo con Stat 07/29/19 16:29 CT chest w con Stat CT thoracic spine wo con Stat 07/30/19 00:00 US gallbladder Routine 08/02/19 12:15 FL ERCP biliary ductal Routine 08/03/19 07:15 FL fluoroscopy <1hr Routine FL spine 1V any level Routine Hospital Course (1) Multiple closed fractures of ribs of left side: Osteoporosis with current osteoporotic fracture of L sided ribs S/p losing balance and fall cont pain control , incentive spirometry pt denies of any SOB , florez Pain due to multiple rib fractures Pain more difficult to control, as patient has also history of chronic pain Pain management consulted for their input, pt is now s/p left 7,8,9 intercostal nerve block (08/03/2019) At home takes oxycodone, which has not been adequate while in the hospital, pain management was consulted, and recommended to increase his oxycodone to 15 mg every 4 hours as needed, and increase fentanyl to 37.5 MCG every 72 hours -Continue Lyrica, Lidoderm patches Opiate-induced constipation -Now resolved -difficult to manage, patient required multiple different bowel regimens, including several enemas -Discussed the importance of bowel regimen to prevent constipation, while on opiates Sacral cellulitis -Started treatment with Bactrim, with his PCP prior to his admission to the hospital, he finished his course, and bactrim was d/c'ed -continue wound care, use a special pillow to sit on to help take pressure off sacrum Mild hyperkalemia - resolved, K 5.1 yesterday and Cr 1.08 - expect normal K level now when bactrim was stopped - previously K mildly elevated at 5.2 (2) Choledocholithiasis: incidental finding in CT abdomen /pelvis USG of liver shows no stone in biliary duct pt has a hx of intermittent R upper quadrant colicky pain Held Eliquis for 3 days prior to procedure, then re-started on (08/04/2019) Pt now s/p ERCP with sphincterotomy, balloon extraction of stones (08/02/2019) Tolerated procedure well, denies any abdominal pain, nausea, vomiting Hx of paroxysmal Afib cont on Digoxin Eliquis held for procedures (ERCP and nerve block), re-started on 08/04 (3) Spinal stenosis, lumbar region with neurogenic claudication: Appreciate input from Spinal surgery Dr Conde Patient had a MRI from December 2017 of lumbar spine : demonstrate severe multilevel facet arthropathy with significant spinal stenosis at L3-4. repeat MRI ordered to assess new changes (patient declined the study as he was in too much pain) Patient discussed with Dr. Conde, that he can do MRI in an outpatient setting, and he will follow-up with Dr. Conde (4) Diabetes mellitus type 2, uncontrolled: - held pt's outpt oral medications while inpt - currently here on Lantus 7 units BID and Insulin Novolog sliding scale CODE STATUS : FULL CODE DVT prophylaxis : Eliquis ordered for SCD and teds encourage to ambulate DISPOSITION : Plan to discharge to acute rehab Total Time Total Time Spent Total Time Spent (In Minutes): 40 Total Time Includes: Examination of the Patient, Discharge Planning, Medication Reconciliation and Communication With Other Providers Discharge Plan Discharge Items Patient Disposition: Transfer Inpatient Rehab Fac Reason For Visit: FALL Discharge Diagnosis: Multiple closed fractures of ribs of left side, Pain d/t rib fractures and chronic pain, Opiate induced constipation, Sacral cellulitis, pAfib, spinal stenosis, DM type 2 Activity: Resume your previous activity Activity Comment: as tolerated, follow instructions from physical therapist Non-emergency contact: Primary Care Provider Call non-emergency contact if: you have any medication questions and your symptoms worsen Follow-up/Referrals: Mohan Perry MD [Primary Care Provider] - Diet: Carb Consistent or DM2 Addtl Attending Provider Instructions: Your oxycodone was increased to 15 mg, you can take it every 4 hours as needed, to control your pain. Your fentanyl was increased to 37mcg, every 72 hours, to control your pain. Make sure you use laxatives as needed to help move your bowels -- you should take Senokot twice a day, unless you have loose stools. You can also use MiraLAX daily as needed, or suppository daily as needed, if you do not have a bowel movement. You should have a bowel movement every day. Pending Studies at Discharge: No Stand-Alone Forms: [facility] [employer], Opioid Pain Management Skilled Items Patient informed of condition?: Yes DNR: No Discharge Level of Care: Acute rehab Communicable Disease: No Discharge Prognosis: Stable Lines: None Urinary Catheter: No Medications and DC Order Prescriptions: New sennosides [Senokot] 8.6 mg Tablet 8.6 mg PO BID 7 Days Qty: 14 RF: 0 acetaminophen [Mapap (acetaminophen)] 325 mg Tablet 650 mg PO Q4H PRN (Reason: pain) 7 Days Qty: 7 RF: 0 polyethylene glycol 3350 [Miralax] 17 gram Powder In Packet 17 g PO DAILY PRN (Reason: constipation) 7 Days Qty: 10 RF: 0 magnesium oxide 400 mg (241.3 mg magnesium) Tablet 400 mg PO QAM 7 Days Qty: 7 RF: 0 bisacodyl [Laxative (bisacodyl)] 10 mg Suppository 10 mg [place] BID PRN (Reason: constipation) 7 Days Qty: 8 RF: 0 lidocaine 5 % Adhesive Patch,Medicated 2 patch transdermal QAM 7 Days Qty: 15 RF: 0 oxycodone 5 mg Tablet 15 mg PO Q4 PRN (Reason: pain) 3 Days Qty: 20 RF: 0 fentanyl 12 mcg/hr Patch 72 Hour 12 mcg transdermal Q72H 3 Days Qty: 1 RF: 0 Continued celecoxib [Celebrex] 200 mg Capsule 200 mg PO BID PRN (Reason: Pain) RF: 0 ascorbic acid (vitamin C) [Vitamin C] 1,000 mg Tablet 1,000 mg PO DAILY RF: 0 atorvastatin [Lipitor] 20 mg Tablet 20 mg PO DAILY RF: 0 omeprazole 40 mg Capsule,Delayed Release(Dr/Ec) 40 mg PO DAILY RF: 0 aspirin 81 mg Tablet,Delayed Release (Dr/Ec) 81 mg PO DAILY RF: 0 baclofen 10 mg Tablet 10 mg PO DAILY RF: 0 metformin 1,000 mg Tablet 1,000 mg PO BID RF: 0 ranitidine HCl 150 mg Tablet 150 mg PO BID PRN (Reason: Gastric Reflux) RF: 0 glimepiride 4 mg Tablet 4 mg PO QAM RF: 0 digoxin [Digox] 125 mcg Tablet 125 mcg PO DAILY RF: 0 metoprolol succinate 25 mg Tablet Extended Release 24 Hr 12.5 mg PO BID RF: 0 fentanyl 25 mcg/hr Patch 72 Hour 1 patch TRANSDERMAL Q72H RF: 0 albuterol sulfate [Ventolin HFA] 90 mcg/actuation Hfa Aerosol Inhaler 2 puff INHALATION Q6H PRN (Reason: Shortness Of Breath) RF: 0 finasteride 5 mg Tablet 5 mg PO DAILY RF: 0 pregabalin [Lyrica] 25 mg Capsule 25 mg PO TID RF: 0 Eliquis 5 mg Tablet 5 mg PO BID RF: 0 Jardiance 10 mg Tablet 10 mg PO DAILY RF: 0 cholecalciferol (vitamin D3) [Vitamin D3] 5,000 unit Tablet 5,000 unit PO DAILY RF: 0 ramipril 5 mg Capsule 5 mg PO BID RF: 0 B-complex with vitamin C [Super B Complex-Vitamin C] Tablet 1 tab PO DAILY RF: 0 Chantix 1 mg Tablet 1 mg PO BID RF: 0 omega 1-kqj-qty-fish oil [Fish Oil] 1,000 mg (120 mg-180 mg) Capsule 1 cap PO DAILY RF: 0 furosemide 20 mg Tablet 20 mg PO [id number] RF: 0 fluticasone propion-salmeterol [Advair Diskus] 250-50 mcg/dose Blister With Device 1 inh INHALATION BID RF: 0 Changed oxycodone 10 mg Tablet 15 mg PO Q6H PRN (Reason: Pain) Qty: 0 RF: 0 Discontinued sulfamethoxazole-trimethoprim [Bactrim DS] 800-160 mg Tablet 1 tab PO BID RF: 0 Discharge Orders: Discharge Order (Routine); Ordered 08/08/19 Ordered By: Adrian Malagon/Other Patient Handouts: DVT Prevent, Falls Change Living Space, Falls Prevent Prepare What Do Admission Data Admit Date/Time: 07/30/19 18:32 Attending Provider: Adrian Oh Admit Provider: Jamel Eckert Primary Care Provider: Mohan Perry Other Providers: Sharda Suazo ; Charissa Doty ; Georges Bray ; Mary Salazar ; Willem Marcos ; Marylu Coffey ; Luis Lizarraga ; Iesha Trent ; Aristeo Germain ; Leslie Bermudez ; Woo Tavares ; Anjel Adamson ; Cathy Bender ; Penelope Meredith ; Angle Mariee ; Zarina Mcfadden ; Anahy Hall ; James Conde ; Bishnu Connelly Other Interventions: Discharge Summary Assessment (RN) Last Done: 08/08/19 10:38
[2019-08-08] MEDS: ACETAMINOPHEN 325 MG TAB PO PRN (14:44)
[2019-08-08] MEDS: DIGOXIN 0.125 MG TAB PO SCH (15:29)
[2019-08-08] MEDS ORDERED: SENNA 8.6 MG TAB PO SCH (21:00)
== END 2019-08-08 17:40 | DRG 543 ==
LOC: ED 14:34 → 2W 14:34 → SUATTDRO 07-30 18:32 → 3E 07-31 22:07

== ENCOUNTER 2019-09-27 12:54 | Inpatient (IN) ==
[2019-09-27] MEDS ORDERED: SODIUM CHLORIDE 0.9% 1000ML 1,000 ML IV SCH (13:30)
[2019-09-27 13:32] LABS: Appearance Urine Clear (Clear); Bacteria Urine Automated Negative (Negative); Bilirubin Urine Negative (Negative); Blood Urine Negative (Negative); Cast Urine Automated 0 /lpf (0-5); Color Urine Yellow; Epithelial Cell Urine Auto 0-5 /lpf (0-5); Glucose Urine UA 3+ (Negative); Ketones Urine Negative (Negative); Leukocyte Esterase Urine Negative (Negative); Nitrite Urine Negative (Negative); Protein Urine 2+ (Negative); RBC Urine Automated 0-4 /hpf (0-4); Specific Gravity Urine 1.028 (1.000-1.030); Urobilinogen Urine Negative (Negative)
--- NOTE | 2019-09-27 13:43 | XRay Report ---
XR chest 1V portable HISTORY: 74 years-old Male weakness acute weakness COMPARISON: Chest radiograph 08/03/2018, CT abdomen and pelvis 07/29/2019. TECHNIQUE: Portable AP view of the chest FINDINGS: Cardiac silhouette is mildly enlarged, unchanged. Pulmonary vascular congestion is noted with mild in terstitial opacities redemonstrated within the left midlung and lung bases. No pneumothorax, large pl eural effusion or overt pulmonary edema. Ill-defined 1.47 m nodular opacity project over the lateral right lung base. Degenerative changes of the shoulders and spine. Fusion hardware of the cervical spi ne. Subacute appearing mildly displaced fractures of the posterior left eighth and ninth ribs appear new from comparison. IMPRESSION: 1. Mildly displaced acute or subacute fractures of the posterior left eighth and ninth ribs, new from 08/03/2019. No pneumothorax. 2. Mild cardiomegaly with interstitial opacities of the lung bases and left midlung suggestive of ate lectasis/scarring with superimposed pneumonitis considered less likely. 3. 1.4 cm pulmonary nodule of the basal right lower lobe redemonstrated. ACT 112: Negative or not required by law. The above report was generated using voice recognition software. It may contain grammatical, syntax o r spelling errors. Electronically signed by: Iván Murphy M.D. 09/27/2019 1:41 PM
--- NOTE | 2019-09-27 14:02 | CT Scan Report ---
CT head/brain wo con CLINICAL HISTORY: 74 years-old Male with weakness. Acute weakness TECHNIQUE: Multiple axial CT images of the head were obtained without contrast. A dose lowering tech nique was utilized adhering to the principles of ALARA. CT DOSE: 788.63 mGycm COMPARISON: Head CT 07/29/2019. FINDINGS: No acute intracranial hemorrhage, midline shift, intracranial mass, hydrocephalus, territorial ischem ia or abnormal extra-axial collection. Mild age-related involutional changes. Mild patchy white matte r hypodensities are suggestive of chronic microvascular ischemic disease. Cerebral vascular calcifica tions are noted. The calvarium is intact. Mastoid air cells are clear. Mild mucosal thickening of the paranasal sinus es with near complete opacification of the right frontal sinuses. 2.0 cm focus of polypoid mucosal th ickening involves the mid right maxillary antrum. Soft tissues and orbits are unremarkable. Prior morgan ateral cataract repair. IMPRESSION: No acute intracranial abnormality. ACT 112: Negative or not required by law. The above report was generated using voice recognition software. It may contain grammatical, syntax o r spelling errors. Electronically signed by: Iván Murphy M.D. 09/27/2019 2:01 PM
[2019-09-27 14:09] LABS: Influenza A virus by PCR Neg for Influ A (Neg); Influenza B virus by PCR Neg for Influ B (Neg)
[2019-09-27 14:23] LABS: Basophils # (auto) 0.04 K/uL (0-0.2); Basophils % (auto) 0.4 %; Eosinophils # (auto) 0.03 K/uL (0-0.5); Eosinophils % (auto) 0.3 %; Hematocrit (blood only) 44.6 % (42-52); Hemoglobin 14.4 g/dL (14.0-18.0); Immature Granulocytes # (auto) 0.05 K/uL (0.00-0.02); Immature Granulocytes % (auto) 0.4 %; Lymphocytes # (auto) 1.48 K/uL (1.2-3.4); Lymphocytes % (auto) 13.1 %; Mean Corpuscular Hemoglobin 29.6 pg (25-34); Mean Corpuscular Hgb Conc 32.3 g/dL (32-36); Mean Corpuscular Volume 91.6 fL (80-100); Monocytes # (auto) 1.31 K/uL (0.11-0.59); Monocytes % (auto) 11.6 %; Neutrophils # (auto) 8.38 K/uL (1.4-6.5); Neutrophils % (auto) 74.2 %; Platelet Count 207 K/uL (130-400); Red Blood Count 4.87 M/uL (4.7-6.1); White Blood Count 11.29 K/uL (4.8-10.8)
[2019-09-27 14:41] LABS: Albumin Level 3.1 gm/dl (3.4-5.0); BUN Creatinine Ratio 27.2 (10-20); Calcium 9.4 mg/dl (8.5-10.1); Creatinine Clr Calc Pharmacy 85.1 ml/min; Est GFR (African American) 98.5; Potassium 4.4 mmol/L (3.5-5.1)
[2019-09-27 14:52] LABS: Albumin Globulin Ratio 0.7 (0.9-2); Bilirubin,Total 0.5 mg/dl (0.2-1); Globulin 4.6 gm/dl (2.5-4.0); Thyroid Stimulating Hormone 1.79 uIu/ml (0.300-4.500); Total Protein 7.7 gm/dl (6.4-8.2); Troponin I 0.017 ng/ml (0-0.045)
[2019-09-27 17:26] LABS: Amphetamines+Metham, Urine Neg (Neg); Barbiturates, Urine Neg (Neg); Benzodiazepine, Urine Neg (Neg); Cocaine, Urine Neg (Neg); MDMA (Ecstacy), Urine Neg (Neg); Methadone, Urine Neg (Neg); Opiate, Urine Neg (Neg); Phencyclidine, Urine Neg (Neg)
[2019-09-27] MEDS ORDERED: OXYCODONE HCL IR 5 MG TAB (IMMEDIATE RELEASE) PO STA (17:47)
--- NOTE | 2019-09-27 18:10 | Emergency Department Note ---
Entered by Loretta Joseph acting as a scribe for Mercedes Blanc MD History of Present Illness General Chief complaint: Illness Time Seen by Provider: 09/27/19 12:59 Source: patient and family (daughter) History of Present Illness Provider complaint: weakness Onset (ago): hour(s) 2 Location: left and right Pain Consistency: + constant Quality: + other (weakness) Associated symptoms: + other (Positive right shoulder pain; Positive right eye dryness; Positive skin hot to touch; Negative fall; Negative diarrhea ); no chest pain, no fever/chills, no headaches, no nausea/vomiting and no shortness of breath Treatments prior to arrival: other (Oxycodone adminsitration; ) The patient, who is a 74 year old male with a medical history of choledocholithiasis, gout and arthritis, presents to the Emergency Room with complaints of generalized weakness that occurred earlier this morning. The patient states that he was using the bathroom when he was unable to get up. The patient denies a fall, chest pain, vomiting, diarrhea, shortness of breath or headache. The patient expresses that he has constant dryness in his right eye. The patient expresses that he has constant pain to his right shoulder. The patient denies any other pain. The patient explains that he currently uses an electric wheelchair and is able to transfer himself from the chair to the toilet without difficulties. The patient expresses that this episode is unusual for him. The patient's daughter states that the patient's skin was hot to touch however he did not present with a fever. The patient's daughter was informed by the home nurse that the patient took two 10 mg oxycodone tablets for breakthrough pain and was concerned he took too many. The patient denies a history of a stroke. The patient confirms that he received his flu vaccination. Home Medications Home Medications Medication Instructions Recorded Confirmed Type Eliquis 5 mg PO BID 01/06/19 09/27/19 History Jardiance 10 mg PO QAM 01/06/19 09/27/19 History albuterol sulfate [Ventolin HFA] 2 puff INHALATION Q6H PRN 01/06/19 09/27/19 History ascorbic acid (vitamin C) [Vitamin 1,000 mg PO QAM 01/06/19 09/27/19 History C] aspirin 81 mg PO QAM 01/06/19 09/27/19 History atorvastatin [Lipitor] 20 mg PO HS 01/06/19 09/27/19 History baclofen 10 mg PO HS 01/06/19 09/27/19 History celecoxib [Celebrex] 200 mg PO BID PRN 01/06/19 09/27/19 History cholecalciferol (vitamin D3) 5,000 unit PO HS 01/06/19 09/27/19 History [Vitamin D3] digoxin [Digox] 125 mcg PO DAILY@1600 01/06/19 09/27/19 History finasteride 5 mg PO QDD 01/06/19 09/27/19 History glimepiride 4 mg PO QAM 01/06/19 09/27/19 History metformin 1,000 mg PO BID 01/06/19 09/27/19 History metoprolol succinate 12.5 mg PO BID 01/06/19 09/27/19 History omeprazole 40 mg PO QAM 01/06/19 09/27/19 History pregabalin [Lyrica] 25 mg PO TID 01/06/19 09/27/19 History B-complex with vitamin C [Super B 1 tab PO HS 07/19/19 09/27/19 History Complex-Vitamin C] Chantix 1 mg PO BID 07/19/19 09/27/19 History fluticasone propion-salmeterol 1 inh INHALATION BID 07/19/19 09/27/19 History [Advair Diskus] furosemide 20 mg PO TUTHSA@0800 07/19/19 09/27/19 History omega 4-dra-phe-fish oil [Fish Oil] 1 cap PO QDD 07/19/19 09/27/19 History ramipril 5 mg PO BID 07/19/19 09/27/19 History diclofenac sodium 2 g TOPICAL BID 09/27/19 09/27/19 History fentanyl 1 patch TRANSDERMAL Q72H 09/27/19 09/27/19 History magnesium 500 mg PO HS 09/27/19 09/27/19 History nystatin 1 applic TOPICAL BID 09/27/19 09/27/19 History oxycodone 15 mg PO Q6H PRN 09/27/19 09/27/19 History polyethylene glycol 3350 [Miralax] 17 g PO QAM 09/27/19 09/27/19 History prednisolone acetate 1 drp OPHTHALMIC (EYE) QID 09/27/19 09/27/19 History Allergies Allergy/AdvReac Type Severity Reaction Status Date / Time Penicillins Allergy Intermediate RASH Verified 09/27/19 14:58 Past Med/Surg History Medical History 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) Acquired hallux valgus of right foot (Chronic) 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) COPD (chronic obstructive pulmonary disease) (Chronic) Degenerative disc disease Diabetes mellitus with diabetic polyneuropathy (Chronic) Diabetic peripheral neuropathy associated with type 2 diabetes mellitus (Chronic) Gastroesophageal reflux disease (Acute) Hallux valgus (acquired), left foot (Chronic) Hyperlipidemia (Chronic) Hypertensive heart disease (Acute) Left foot drop (Chronic) Multiple closed fractures of ribs of left side (Acute) Right foot drop (Chronic) Spinal stenosis, lumbar region with neurogenic claudication (Chronic) Tobacco user (Acute 09/27/11) Surgical History Hx of tonsillectomy (Chronic) S/P cataract extraction (Resolved) S/P cervical spinal fusion (Chronic) S/P foot surgery, right (Resolved) Status post cholecystectomy (Chronic) Family History Other COPD (chronic obstructive pulmonary disease) Coronary heart disease Social History Preferred Language: Upper Sorbian Communication Ability: Effective Visual Impairment: Limited Hearing Ability: Hard of Hearing Doping Supervisor Required: No Beliefs That Will Affect Care: None marital status: Current Living Situation: Alone current occupational status: retired Other Information That Helps Us Care for You: No Feels Safe at Home: Yes Safety Concerns: Feels Safe At This Time Smoking Status: Former smoker packs per day: 0.5 ; Hx Alcohol Use: No Hx Substance Use: No Review of Systems See HPI for pertinent positives & negatives. and A total of 10 systems reviewed and were otherwise negative Physical Exam Vital Signs Vital Signs - 24 hr 09/27/19 12:55 09/27/19 13:00 09/27/19 15:10 Temperature 37.4 C Temperature Source Oral Pulse Rate 104 H Pulse Rate [Apical] 87 Pulse Rhythm Regular Pulse Strength Normal Respiratory Rate 24 25 H Respiratory Effort / Characteristics Non-Labored Spontaneous Non-Labored Respiratory Depth Normal Normal Respiratory Pattern Regular Blood Pressure 142/87 H Blood Pressure [Left Arm] 113/60 Blood Pressure Mean 105 Blood Pressure Mean [Left Arm] 77 Blood Pressure Position Lying Blood Pressure Position [Left Arm] Sitting Pulse Oximetry 86 L 91 93 Oxygen Delivery Method Room Air Nasal Cannula Room Air Oxygen Flow Rate 2 Sepsis Recent Fever Within 48 Hours Yes Sepsis New/Unexplained Change in Mental Status No Sepsis Action Taken by Nursing Physician Notified 09/27/19 17:00 Temperature Temperature Source Pulse Rate Pulse Rate [Apical] 92 H Pulse Rhythm Pulse Strength Respiratory Rate 14 Respiratory Effort / Characteristics Non-Labored Spontaneous Respiratory Depth Normal Respiratory Pattern Regular Blood Pressure Blood Pressure [Left Arm] 140/77 Blood Pressure Mean Blood Pressure Mean [Left Arm] 98 Blood Pressure Position Blood Pressure Position [Left Arm] Lying Pulse Oximetry 92 Oxygen Delivery Method Room Air Oxygen Flow Rate Sepsis Recent Fever Within 48 Hours Sepsis New/Unexplained Change in Mental Status Sepsis Action Taken by Nursing Vital signs reviewed. General: Chronically illl-appearing male, in no significant distress. HEENT: No scleral icterus, PERRLA, neck supple. Atraumatic. Cardiovascular: Regular rate and rhythm, no extra sounds. Pulmonary: Clear to auscultation bilaterally, normal work of breathing. Abdomen: Soft, nontender, obese, nondistended, positive bowel sounds. Musculoskeletal: Atraumatic, no peripheral edema. Arthritic changes to the distal hands and feet. Small ecchymotic area to the right AC region of the shoulder. debilitated and arthritis BLE Neurologic: Patient awake alert and oriented x 3 Skin: Warm, dry, no rash Course Course 1313: Past medical records reviewed. The patient was evaluated in room A11. A complete history and physical exam was performed. 1658: I reviewed the patient's case with Ligia Francisco [facility] Hospitalist. She will evaluate the patient for further management. Consultations Consultation #1: I reviewed the patient's case with Ligia Francisco [facility] Hospitalist. She will evaluate the patient for further management. Time: 16:58 Administered Medications Sodium Chloride (Nss 1000ml) 1,000 mls @ 125 mls/hr IV .Q8H BETHANY Stop: 09/27/19 21:29 Last Admin: 09/27/19 13:39 Dose: 125 mls/hr Documented by: [id number] Discontinued Medications Oxycodone HCl (Roxicodone Immediate Rel) 10 mg PO NOW STA Stop: 09/27/19 17:48 Last Admin: 09/27/19 18:41 Dose: 10 mg Documented by: [id number] Medical Decision Making Differential Diagnosis Differential Diagnosis includes but is not limited to dehydration, stroke, anemia, hypoglycemia, hyponatremia, hypernatremia, urinary tract infection, pneumonia, bronchitis, sepsis, gastroenteritis, additional abdominal pathology, metabolic abnormalities and infections, medication misuse, as well as others were entertained. Medical Records Attestation: I reviewed the patient's medical records. Home Medications Current Medication List: was personally reviewed by me Laboratory Data Attestation: I reviewed the patient's lab results. Result diagrams: 09/27/19 14:11 09/27/19 14:11 Lab Results 09/27/19 09/27/19 09/27/19 Range/Units 13:08 13:08 13:26 WBC (4.8-10.8) K/uL RBC (4.7-6.1) M/uL Hgb (14.0-18.0) g/dL Hct (42-52) % MCV (80-100) fL MCH (25-34) pg MCHC (32-36) g/dL RDW Std Deviation (36.4-46.3) fL RDW Coeff of Naomi (11.5-14.5) % Plt Count (130-400) K/uL MPV (7.4-10.4) fL Immature Gran % (Auto) % Neut % (Auto) % Lymph % (Auto) % [place] % (Auto) % Eos % (Auto) % Baso % (Auto) % Immature Gran # (Auto) (0.00-0.02) K/uL Neut # (Auto) (1.4-6.5) K/uL Lymph # (Auto) (1.2-3.4) K/uL [place] # (Auto) (0.11-0.59) K/uL Eos # (Auto) (0-0.5) K/uL Baso # (Auto) (0-0.2) K/uL Sodium (136-145) mmol/L Potassium (3.5-5.1) mmol/L Chloride (98-107) mmol/L Carbon Dioxide (21-32) mmol/L Anion Gap (3-11) BUN (7-18) mg/dl Creatinine (0.6-1.4) mg/dl Est Cr Clr Drug Dosing ml/min Est GFR ( Amer) Est GFR (Non-Af Amer) BUN/Creatinine Ratio (10-20) Glucose (70-99) mg/dl Calcium (8.5-10.1) mg/dl Total Bilirubin (0.2-1) mg/dl AST (15-37) U/L ALT (12-78) U/L Alkaline Phosphatase (45-117) U/L Troponin I (0-0.045) ng/ml Total Protein (6.4-8.2) gm/dl Albumin (3.4-5.0) gm/dl Globulin (2.5-4.0) gm/dl Albumin/Globulin Ratio (0.9-2) TSH (0.300-4.500) uIu/ml Urine Color Yellow Urine Appearance Clear (Clear) Urine pH 7.0 (4.5-7.5) Ur Specific [place] 1.028 (1.000-1.030) Urine Protein 2+ H (Negative) Urine Glucose (UA) 3+ H (Negative) Urine Ketones Negative (Negative) Urine Blood Negative (Negative) Urine Nitrite Negative (Negative) Urine Bilirubin Negative (Negative) Urine Urobilinogen Negative (Negative) Ur Leukocyte Esterase Negative (Negative) Urine WBC (Auto) 1-5 (0-5) /hpf Urine RBC (Auto) 0-4 (0-4) /hpf U Hyaline Cast (Auto) 0 (0-5) /lpf U Epithel Cells (Auto) 0-5 (0-5) /lpf Urine Bacteria (Auto) Negative (Negative) Urine Opiates Screen Neg (Neg) Ur Methadone, Qual Neg (Neg) Urine Barbiturates Neg (Neg) Ur Phencyclidine (PCP) Neg (Neg) U Amphetamin/Meth Scrn Neg (Neg) MDMA (Ecstasy) Screen Neg (Neg) U Benzodiazepines Scrn Neg (Neg) Ur Cocaine Metabolite Neg (Neg) U Marijuana (THC) Screen Neg (Neg) Influenza Type A (PCR) Neg for Influ A (Neg) Influenza Type B (PCR) Neg for Influ B (Neg) 09/27/19 09/27/19 Range/Units 14:11 14:11 WBC 11.29 H (4.8-10.8) K/uL RBC 4.87 (4.7-6.1) M/uL Hgb 14.4 (14.0-18.0) g/dL Hct 44.6 (42-52) % MCV 91.6 (80-100) fL MCH 29.6 (25-34) pg MCHC 32.3 (32-36) g/dL RDW Std Deviation 54.0 H (36.4-46.3) fL RDW Coeff of Naomi 16.0 H (11.5-14.5) % Plt Count 207 (130-400) K/uL MPV 11.0 H (7.4-10.4) fL Immature Gran % (Auto) 0.4 % Neut % (Auto) 74.2 % Lymph % (Auto) 13.1 % [place] % (Auto) 11.6 % Eos % (Auto) 0.3 % Baso % (Auto) 0.4 % Immature Gran # (Auto) 0.05 H (0.00-0.02) K/uL Neut # (Auto) 8.38 H (1.4-6.5) K/uL Lymph # (Auto) 1.48 (1.2-3.4) K/uL [place] # (Auto) 1.31 H (0.11-0.59) K/uL Eos # (Auto) 0.03 (0-0.5) K/uL Baso # (Auto) 0.04 (0-0.2) K/uL Sodium 135 L (136-145) mmol/L Potassium 4.4 (3.5-5.1) mmol/L Chloride 100 (98-107) mmol/L Carbon Dioxide 29 (21-32) mmol/L Anion Gap 6.0 (3-11) BUN 24 H (7-18) mg/dl Creatinine 0.90 (0.6-1.4) mg/dl Est Cr Clr Drug Dosing 85.1 ml/min Est GFR ( Amer) 98.5 Est GFR (Non-Af Amer) 85.0 BUN/Creatinine Ratio 27.2 H (10-20) Glucose 206 H (70-99) mg/dl Calcium 9.4 (8.5-10.1) mg/dl Total Bilirubin 0.5 (0.2-1) mg/dl AST 17 (15-37) U/L ALT 27 (12-78) U/L Alkaline Phosphatase 120 H (45-117) U/L Troponin I 0.017 (0-0.045) ng/ml Total Protein 7.7 (6.4-8.2) gm/dl Albumin 3.1 L (3.4-5.0) gm/dl Globulin 4.6 H (2.5-4.0) gm/dl Albumin/Globulin Ratio 0.7 L (0.9-2) TSH 1.790 (0.300-4.500) uIu/ml Urine Color Urine Appearance (Clear) Urine pH (4.5-7.5) Ur Specific [place] (1.000-1.030) Urine Protein (Negative) Urine Glucose (UA) (Negative) Urine Ketones (Negative) Urine Blood (Negative) Urine Nitrite (Negative) Urine Bilirubin (Negative) Urine Urobilinogen (Negative) Ur Leukocyte Esterase (Negative) Urine WBC (Auto) (0-5) /hpf Urine RBC (Auto) (0-4) /hpf U Hyaline Cast (Auto) (0-5) /lpf U Epithel Cells (Auto) (0-5) /lpf Urine Bacteria (Auto) (Negative) Urine Opiates Screen (Neg) Ur Methadone, Qual (Neg) Urine Barbiturates (Neg) Ur Phencyclidine (PCP) (Neg) U Amphetamin/Meth Scrn (Neg) MDMA (Ecstasy) Screen (Neg) U Benzodiazepines Scrn (Neg) Ur Cocaine Metabolite (Neg) U Marijuana (THC) Screen (Neg) Influenza Type A (PCR) (Neg) Influenza Type B (PCR) (Neg) Imaging Data Radiologist's Impression: Radiology results as stated below per my review and the radiologist's interpretation: XR chest 1V portable HISTORY: 74 years-old Male weakness acute weakness COMPARISON: Chest radiograph 08/03/2018, CT abdomen and pelvis 07/29/2019. TECHNIQUE: Portable AP view of the chest FINDINGS: Cardiac silhouette is mildly enlarged, unchanged. Pulmonary vascular congestion is noted with mild interstitial opacities redemonstrated within the left midlung and lung bases. No pneumothorax, large pleural effusion or overt pulmonary edema. Ill-defined 1.47 m nodular opacity project over the lateral right lung base. Degenerative changes of the shoulders and spine. Fusion hardware of the cervical spine. Subacute appearing mildly displaced fractures of the posterior l eft eighth and ninth ribs appear new from comparison. IMPRESSION: 1. Mildly displaced acute or subacute fractures of the posterior left eighth and ninth ribs, new from 08/03/2019. No pneumothorax. 2. Mild cardiomegaly with interstitial opacities of the lung bases and left midlung suggestive of atelectasis/scarring with superimposed pneumonitis considered less likely. 3. 1.4 cm pulmonary nodule of the basal right lower lobe redemonstrated. ACT 112: Negative or not required by law. The above report was generated using voice recognition software. It may contain grammatical, syntax or spelling errors. Electronically signed by: Iván Murphy M.D. 09/27/2019 1:[address] head/brain wo con CLINICAL HISTORY: 74 years-old Male with weakness. Acute weakness TECHNIQUE: Multiple axial CT images of the head were obtained without contrast. A dose lowering technique was utilized adhering to the principles of ALARA. CT DOSE: 788.63 mGycm COMPARISON: Head CT 07/29/2019. FINDINGS: No acute intracranial hemorrhage, midline shift, intracranial mass, hydrocephalus, territorial ischemia or abnormal extra-axial collection. Mild age-related involutional changes. Mild patchy white matter hypodensities are suggestive of chronic microvascular ischemic disease. Cerebral vascular calcifications are noted. The calvarium is intact. Mastoid air cells are clear. Mild mucosal thickening of the paranasal sinuses with near complete opacification of the right frontal sinuses. 2.0 cm focus of polypoid mucosal thickening involves the mid right maxillary antrum. Soft tissues and orbits are unremarkable. Prior bilateral cataract repair. IMPRESSION: No acute intracranial abnormality. ACT 112: Negative or not required by law. The above report was generated using voice recognition software. It may contain grammatical, syntax or spelling errors. Electronically signed by: Iván Murphy M.D. 09/27/2019 2:01 PM ECG Data Indication: + tachycardia Rate (beats per minute): 92 Rhythm: + atrial flutter ECG [place]: + Left axis deviation ECG Findings: + Other (Previous inferior infarct; Previous anterior lateral infarct; No ectopy; No acute ischemia) Comparison ECG Date: from (08/02/19) Change: the following changes noted (T wave abnormality inferiorly has resolved;) Blood Pressure Blood Pressure Findings: Normal blood pressure MDM Narrative This patient was evaluated and appeared to be in no significant distress. Physical examination reveals a deconditioned debilitated elderly male. Patient has significant arthritic deformity of the hands, right shoulder and lower extremities. He states he is unable to ambulate, he does stand for a pivot to the toilet and back to his chair from an electronic wheelchair. Patient has caregivers in his home 12 hours a day. He is on chronic narcotics including fentanyl and OxyIR. It appears that the patient may be misusing his Oxy IR, he admits to to 10 mg tablets this morning. The timeline is unclear as he states this was after he was found unable to get up off of the toilet. He recently had his fentanyl patch increased to 37.5 mcg. He does have significant reason for chronic pain however it is concerning that he may be taking too much too often. Patient's daughters do not feel comfortable with the current situation. He has agreed to stay for physical therapy but adamantly refuses admission to an inpatient rehab. Case management will likely need to be heavily involved. [facility] for further management. Impression & Plan Generalized weakness, Narcotic dependency, continuous, Total self-care deficit Discharge Plan Visit Data *Final* Discharge Date/Time: 09/27/19 19:04 Chief Complaint: Illness ED Provider: Mercedes Blanc Discharge Problem: Generalized weakness, Narcotic dependency, continuous, Total self-care deficit Patient Disposition: Admitted As Inpatient Discharge Instructions Interventions: ED Discharge Assessment Last Done: 09/27/19 19:04 The scribe's documentation has been prepared under my direction and personally reviewed by me in its entirety. I confirm that the note above accurately reflects all work, treatment, procedures, and medical decision making performed by me.
--- NOTE | 2019-09-27 18:45 | History & Physical Report ---
Date of Service September 27, 2019 Assessment & Plan (1) Ambulatory dysfunction: (2) Generalized weakness: (3) CMT (Dbmjfne-Nqzfp-Cowmn disease): This is a 74-year-old male with PMH of DM II COPD, chronic pain with opioid dependence, paroxysmal atrial fibrillation on Eliquis, CKD 3, Charcot-M tyrone-Tooth disease, neuropathy, recent rib fractures, rotator cuff arthropathy of left shoulder, cervical spine stenosis and other medical problems listed below who presents after episode of generalized weakness and ambulatory dysfunction earlier today. 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 Denies recent falls, confusion, head trauma Ambulates with motorized chair at baseline and can pivot transfer with at least 1 assist but usually 2 (4) Ribs, multiple fractures: CXR with mildly displaced acute or subacute fractures of the posterior left eighth and ninth ribs, new from 08/03/2019. No pneumothorax Contributing to overall pain. Denies falls but cannot fully recall due to living alone, heavy narcotic use Continue home pain regimen (5) Degenerative disc disease: History of diffuse degenerative disease of spine Has outpatient evaluation scheduled with Dr. Conde in October 11 Daughter requesting orthopedic consult while patient is hospitalized Routine consult with Dr. Acevedo placed (6) Narcotic dependency, continuous: During July admission, fentanyl dose increased to 37.5 and oxycodone increased to 15 mg every 6 hours as needed Patient has been taking 20mg oxycodone Q6H regularly due to being unable to cut the pills on his own Concern that opioids are contributing to falls and that patient needs more supervision at home vs. placement Pain mgmt involved with care- routine consult placed (7) Diabetes mellitus type 2, uncontrolled: A1c of 10.3 in Jul 2019 Hold home agents SSI while in-patient BSG AC HS (8) Sacral back pain: H/o sacral cellulitis on bactrim Skin breakdown without open wounds visualized. Area unclean with matted fecal material Wound care consult place for care, patient sedentary with limited mobility- high risk for ulcer (9) Skin abnormalities: Continue nystatin cream for groin and abdominal folds (10) Paroxysmal atrial fibrillation: Rate controlled. Continue digoxin and Toprol Anticoagulated on Eliquis DVT Ppx: Continue Eliquis Code status: FULL PCP: Vicky Dispo: OBSERVATION med/surg. PT/OT consults placed, case mgmt placed Patient seen in collaboration with Dr. Hodges. Please see addendum. History of Present Illness Chief Complaint: Ambulatory dysfunction Primary Care Provider: Mohan Perry MD This is a 74-year-old male with PMH of DM II COPD, chronic pain with opioid dependence, paroxysmal atrial fibrillation on Eliquis, CKD 3, Charcot-Fidelia- Tooth disease, neuropathy, recent rib fractures, rotator cuff arthropathy of left shoulder, cervical spine stenosis and other medical problems listed below who presents after episode of generalized weakness and ambulatory dysfunction earlier today. Patient is limited in mobility due to chronic arthritis and severe pain but is able to ambulate with motorized chair and pivot support transferring on and off the toilet. Patient has daughter who is a nurse and cares for him frequently, but she is on vacation in [place]. Also has [facility] present for approximately 8 hours a day. Patient with long-term narcotic use and during July admission, was seen by pain management and fentanyl patch was increased to 37.5 transdermal patch and oxycodone was increased from 10 to 15 mg every 6 hours as needed. Patient states he receives his oxycodone 10 mg tablets and with arthritic deformities in hands, states that he is unable to cut them in half, so he has been taking oxycodone 20 mg Q6H. Remembers getting up during the night and taking a dose of oxy 20mg around 0300. Woke up this morning on his toilet and was unable to get up on his own. Thinks he fell asleep there but is unsure of the exact events or timing. Waited for 2 hours until home health arrived and was able to assist patient. He feels much weaker than usual. Denies taking more pain medications than usual, but cannot remember exact activities last night. Was recently dispensed 180 tabs of 10mg oxycodone on September 05 by PCP, per review of PDMP. New fentanyl patch placed yesterday as well. Patient currently endorsing pain in left shoulder, hips and sacrum. History of sacral cellulitis on Bactrim that daughter reports has healed. Patient not interested in placement but daughter at bedside feels that patient needs more oversight with medication as well as help with ADLs. Denies fever, chills, lightheadedness, visual changes, chest pain, palpitations, shortness of breath, nausea, vomiting, abdominal pain, dysuria, diarrhea or constipation. Allergies Allergy/AdvReac Type Severity Reaction Status Date / Time Penicillins Allergy Intermediate RASH Verified 09/27/19 14:58 Home Medications Home Medications Medication Instructions Recorded Confirmed Type Eliquis 5 mg PO BID 01/06/19 09/27/19 History Jardiance 10 mg PO QAM 01/06/19 09/27/19 History albuterol sulfate [Ventolin HFA] 2 puff INHALATION Q6H PRN 01/06/19 09/27/19 History ascorbic acid (vitamin C) [Vitamin 1,000 mg PO QAM 01/06/19 09/27/19 History C] aspirin 81 mg PO QAM 01/06/19 09/27/19 History atorvastatin [Lipitor] 20 mg PO HS 01/06/19 09/27/19 History baclofen 10 mg PO HS 01/06/19 09/27/19 History celecoxib [Celebrex] 200 mg PO BID PRN 01/06/19 09/27/19 History cholecalciferol (vitamin D3) 5,000 unit PO HS 01/06/19 09/27/19 History [Vitamin D3] digoxin [Digox] 125 mcg PO DAILY@1600 01/06/19 09/27/19 History finasteride 5 mg PO QDD 01/06/19 09/27/19 History glimepiride 4 mg PO QAM 01/06/19 09/27/19 History metformin 1,000 mg PO BID 01/06/19 09/27/19 History metoprolol succinate 12.5 mg PO BID 01/06/19 09/27/19 History omeprazole 40 mg PO QAM 01/06/19 09/27/19 History pregabalin [Lyrica] 25 mg PO TID 01/06/19 09/27/19 History B-complex with vitamin C [Super B 1 tab PO HS 07/19/19 09/27/19 History Complex-Vitamin C] Chantix 1 mg PO BID 07/19/19 09/27/19 History fluticasone propion-salmeterol 1 inh INHALATION BID 07/19/19 09/27/19 History [Advair Diskus] furosemide 20 mg PO TUTHSA@0800 07/19/19 09/27/19 History omega 1-dzz-trz-fish oil [Fish Oil] 1 cap PO QDD 07/19/19 09/27/19 History ramipril 5 mg PO BID 07/19/19 09/27/19 History diclofenac sodium 2 g TOPICAL BID 09/27/19 09/27/19 History fentanyl 1 patch TRANSDERMAL Q72H 09/27/19 09/27/19 History magnesium 500 mg PO HS 09/27/19 09/27/19 History nystatin 1 applic TOPICAL BID 09/27/19 09/27/19 History oxycodone 15 mg PO Q6H PRN 09/27/19 09/27/19 History polyethylene glycol 3350 [Miralax] 17 g PO QAM 09/27/19 09/27/19 History prednisolone acetate 1 drp OPHTHALMIC (EYE) QID 09/27/19 09/27/19 History Past Med/Surg History Medical History 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) Acquired hallux valgus of right foot (Chronic) Choledocholithiasis CMT (Pllxvpd-Pgavv-Phska disease) (Chronic) COPD (chronic obstructive pulmonary disease) (Chronic) Degenerative disc disease Diabetes mellitus with diabetic polyneuropathy (Chronic) Diabetic peripheral neuropathy associated with type 2 diabetes mellitus (Chronic) Gastroesophageal reflux disease (Acute) Hallux valgus (acquired), left foot (Chronic) Hyperlipidemia (Chronic) Hypertensive heart disease (Acute) Left foot drop (Chronic) Multiple closed fractures of ribs of left side (Acute) Right foot drop (Chronic) Spinal stenosis, lumbar region with neurogenic claudication (Chronic) Tobacco user (Acute 09/27/11) Surgical History Hx of tonsillectomy (Chronic) S/P cataract extraction (Resolved) S/P cervical spinal fusion (Chronic) S/P foot surgery, right (Resolved) Status post cholecystectomy (Chronic) Family History Other COPD (chronic obstructive pulmonary disease) Coronary heart disease Social History Preferred Language: Pashto Communication Ability: Effective Visual Impairment: Limited Hearing Ability: Hard of Hearing Physical Therapy Aid Required: No Beliefs That Will Affect Care: None marital status: Current Living Situation: Alone current occupational status: retired Other Information That Helps Us Care for You: No Feels Safe at Home: Yes Safety Concerns: Feels Safe At This Time Smoking Status: Former smoker packs per day: 0.5 ; Hx Alcohol Use: No Hx Substance Use: No Review of Systems Review of Systems: At least ten systems reviewed and negative except as noted in the HPI. Physical Exam Physical Exam: General Appearance: WD/WN, vitals as above, NAD, sitting up in bed, occasionally grimacing in pain, poorly groomed, appears chronically ill Head: normocephalic, atraumatic Eyes: normal inspection, PERRL, conjunctivae normal, matting of bilateral eyelids but no no scleral injection ENT: external ear and nose normal, oropharynx normal Neck: trachea midline, no thyromegaly normal visual inspection Respiratory: normal respiratory effort, lungs clear to auscultation, no wheeze, rales, rhonchi. Normal insp/exp effort, no accessory muscle use Cardiovascular: regular rate, rhythm, no murmur, normal peripheral pulses. Vessels: no JVD or carotid bruit Chest: normal inspection of chest Abdomen/GI: normal bowel sounds, soft, nontender, no hepatosplenomegaly Extremities/Musculoskelatal: no cyanosis or clubbing, extremities motor strength 5/5 Neurologic: PERRL, EOMI, accommodation nl, no face palsy, no dysarthria, CN's II-XI intact bilaterally and moves all extremities Psychiatric: A+Ox3, euthymic affect Skin: no rashes, normal color, warm/dry. +anterior LLE with chronic skin change. Sacrum erythematous but no open wound. Presence of dried fecal material surrounding backside. Erythematous rash present in groin folds and under abdominal fold. Results & Data Vital Signs (Past 12 Hours) Vital Signs Temp Pulse Pulse Resp BP BP Pulse Ox 09/27/19 15:10 87 25 H 113/60 93 09/27/19 13:00 91 09/27/19 12:55 37.4 C 104 H 24 142/87 H 86 L Laboratory Results Short CBC 09/27/19 Range/Units 14:11 WBC 11.29 H (4.8-10.8) K/uL Hgb 14.4 (14.0-18.0) g/dL Hct 44.6 (42-52) % Plt Count 207 (130-400) K/uL BMP 09/27/19 14:11 Sodium 135 L Potassium 4.4 Chloride 100 Carbon Dioxide 29 BUN 24 H Creatinine 0.90 Glucose 206 H Calcium 9.4 Cardiac Enzymes 09/27/19 Range/Units 14:11 Troponin I 0.017 (0-0.045) ng/ml Liver Function 09/27/19 Range/Units 14:11 Total Bilirubin 0.5 (0.2-1) mg/dl AST 17 (15-37) U/L ALT 27 (12-78) U/L Alkaline Phosphatase 120 H (45-117) U/L Albumin 3.1 L (3.4-5.0) gm/dl Urine 09/27/19 Range/Units 13:08 Urine Color Yellow Urine Appearance Clear (Clear) Urine pH 7.0 (4.5-7.5) Ur Specific [place] 1.028 (1.000-1.030) Urine Protein 2+ H (Negative) Urine Glucose (UA) 3+ H (Negative) Diagnostic Findings CT head: IMPRESSION: No acute intracranial abnormality. CXR: IMPRESSION: 1. Mildly displaced acute or subacute fractures of the posterior left eighth and ninth ribs, new from 08/03/2019. No pneumothorax. 2. Mild cardiomegaly with interstitial opacities of the lung bases and left midlung suggestive of atelectasis/scarring with superimposed pneumonitis considered less likely. 3. 1.4 cm pulmonary nodule of the basal right lower lobe redemonstrated. Supervising Physician Co-Signing Physician Notes Pt was seen and examined. Agreed with Ligia ROQUE exam, assessment and plan. 74-year-old male with PMH of DM II COPD, chronic pain with opioid dependence, paroxysmal atrial fibrillation on Eliquis, CKD 3, Ixxhnpi-Lunrb-Niazw disease, neuropathy, recent rib fractures, rotator cuff arthropathy of left shoulder, cervical spine stenosis who presents to the ER for generalized weakness and ambulatory dysfunction. Pt said that this morning he felt weak and was not able to get up from the toilet seat. He was prescribed oxycodone 15mg but he has been taking 20mg q6hr because he is not able to cut the 10mg to half tab. CT head showed no acute intracranial abnormality. No focal neuro deficit on exam. Will do PT/OT eval. Fall precaution. Will consult pain management for narcotic management. MD Carroll
[2019-09-27] MEDS ORDERED: POLYETHYLENE (MIRALAX) 17 GM PACK PO PRN (19:59)
[2019-09-27] MEDS ORDERED: ALBUTEROL HFA 8 GM INHALER INH PRN (19:59)
[2019-09-27] MEDS ORDERED: NON-FORMULARY MEDICATION (Fentanyl 1 PATCH) TD SCH (19:59)
[2019-09-27] MEDS: VARENICLINE 1 MG TAB PO SCH (21:17)
[2019-09-27] MEDS: FLUTICASONE/SALMETEROL 250/50 (ADVAIR) 14 PUFF/1 INHALER INH SCH (21:17)
[2019-09-27] MEDS: ATORVASTATIN 20 MG TAB PO SCH (21:18)
[2019-09-27] MEDS: PREGABALIN 25 MG CAP PO SCH (21:18)
[2019-09-27] MEDS: BACLOFEN 10 MG TAB PO SCH (21:18)
[2019-09-27] MEDS: NYSTATIN CR 15 GM TUBE EXT SCH (21:18)
[2019-09-27] MEDS: prednisoLONE acetate 1% OP SUSP 5 ML BTL OP SCH (21:18)
[2019-09-27] MEDS: METOPROLOL SUCC 25MG EXT REL TAB PO SCH (21:19)
[2019-09-27] MEDS: ENALAPRIL MALEATE 10 MG TAB PO SCH (21:20)
[2019-09-27] MEDS: CHOLECALCIFEROL 1,000 UNITS TAB PO SCH (21:21)
[2019-09-27] MEDS: VITAMIN B COMPLEX TAB PO SCH (21:22)
[2019-09-27] MEDS: DICLOFENAC SOD 1% GEL 100 GM TUBE EXT SCH (21:22)
[2019-09-27] MEDS ORDERED: CARBOHYDRATES FOR HYPOGLYCEMIA PO PRN (22:54)
[2019-09-27] MEDS ORDERED: GLUCOSE 10 TABS/TUBE PO PRN (22:54)
[2019-09-27] MEDS ORDERED: GLUCOSE 40% GEL 15 GM TUBE PO PRN (22:54)
[2019-09-27] MEDS ORDERED: GLUCAGON FOR INJ 1 MG VIAL SQ PRN (22:54)
[2019-09-27] MEDS ORDERED: DEXTROSE 50% 50 ML SYRINGE IV PRN (22:54)
[2019-09-27] MEDS ORDERED: INSULIN GLARGINE SOLOSTAR 100 UNITS/ML 3 ML PEN SC STA (22:56)
[2019-09-27] MEDS: INSULIN ASPART 100 UNITS/ML 3 ML PEN SC SCH (23:51)
[2019-09-27] MEDS: OXYCODONE HCL IR 5 MG TAB (IMMEDIATE RELEASE) PO PRN (23:59)
[2019-09-28] MEDS: CHECK FENTANYL PATCH PLACEMENT SCH ×8 (01:08→23:42)
[2019-09-28 06:46] LABS: Hematocrit (blood only) 40.5 % (42-52); Hemoglobin 12.9 g/dL (14.0-18.0); Mean Corpuscular Hgb Conc 31.9 g/dL (32-36); Mean Platelet Volume 10.8 fL (7.4-10.4); Platelet Count 175 K/uL (130-400); RDW Coefficient of Variation 16.1 % (11.5-14.5); RDW Standard Deviation 54.1 fL (36.4-46.3); Red Blood Count 4.45 M/uL (4.7-6.1); White Blood Count 7.73 K/uL (4.8-10.8)
[2019-09-28 07:16] LABS: BUN Creatinine Ratio 28.1 (10-20); Calcium 9.1 mg/dl (8.5-10.1); Creatinine Clr Calc Pharmacy 99.5 ml/min; Est GFR (African American) 105.1; Est GFR (Non-African American) 90.7; Potassium 4.1 mmol/L (3.5-5.1)
--- NOTE | 2019-09-28 08:10 | Pain Management Consultation ---
Date of Consultation September 28, 2019 Assessment & Plan (1) Opioid dependence: * Recommend patient be continued on transdermal fentanyl 37 mcg every 72 hours as well as 15 mg oxycodone for breakthrough and not 20 mg as he is taking. When discharged, it is recommended that he be prescribed and milligrams oxycodone as well as 5 mg oxycodone so he can take a total of 15 mg and try not to cut the 10 mg pill as he is unable to do so due to deformities of his hands. Present on Admission?: Yes (2) Chronic pain associated with significant psychosocial dysfunction: * Recommend patient be prescribed History of Present Illness Attending Physician: Stefani Andrew DO Allergies Allergy/AdvReac Type Severity Reaction Status Date / Time Penicillins Allergy Intermediate RASH Verified 09/27/19 14:58 Home Medications Home Medications Medication Instructions Recorded Confirmed Type Eliquis 5 mg PO BID 01/06/19 09/27/19 History Jardiance 10 mg PO QAM 01/06/19 09/27/19 History albuterol sulfate [Ventolin HFA] 2 puff INHALATION Q6H PRN 01/06/19 09/27/19 History ascorbic acid (vitamin C) [Vitamin 1,000 mg PO QAM 01/06/19 09/27/19 History C] aspirin 81 mg PO QAM 01/06/19 09/27/19 History atorvastatin [Lipitor] 20 mg PO HS 01/06/19 09/27/19 History baclofen 10 mg PO HS 01/06/19 09/27/19 History celecoxib [Celebrex] 200 mg PO BID PRN 01/06/19 09/27/19 History cholecalciferol (vitamin D3) 5,000 unit PO HS 01/06/19 09/27/19 History [Vitamin D3] digoxin [Digox] 125 mcg PO DAILY@1600 01/06/19 09/27/19 History finasteride 5 mg PO QDD 01/06/19 09/27/19 History glimepiride 4 mg PO QAM 01/06/19 09/27/19 History metformin 1,000 mg PO BID 01/06/19 09/27/19 History metoprolol succinate 12.5 mg PO BID 01/06/19 09/27/19 History omeprazole 40 mg PO QAM 01/06/19 09/27/19 History pregabalin [Lyrica] 25 mg PO TID 01/06/19 09/27/19 History B-complex with vitamin C [Super B 1 tab PO HS 07/19/19 09/27/19 History Complex-Vitamin C] Chantix 1 mg PO BID 07/19/19 09/27/19 History fluticasone propion-salmeterol 1 inh INHALATION BID 07/19/19 09/27/19 History [Advair Diskus] furosemide 20 mg PO TUTHSA@0800 07/19/19 09/27/19 History omega 3-tek-izq-fish oil [Fish Oil] 1 cap PO QDD 07/19/19 09/27/19 History ramipril 5 mg PO BID 07/19/19 09/27/19 History diclofenac sodium 2 g TOPICAL BID 09/27/19 09/27/19 History fentanyl 1 patch TRANSDERMAL Q72H 09/27/19 09/27/19 History magnesium 500 mg PO HS 09/27/19 09/27/19 History nystatin 1 applic TOPICAL BID 09/27/19 09/27/19 History oxycodone 15 mg PO Q6H PRN 09/27/19 09/27/19 History polyethylene glycol 3350 [Miralax] 17 g PO QAM 09/27/19 09/27/19 History prednisolone acetate 1 drp OPHTHALMIC (EYE) QID 09/27/19 09/27/19 History Pain History Chief Complaint Chief Complaint: Mr. Cherry is a 74-year-old male who [facility] with amatory dysfunction and chronic pain with psychosocial dysfunction. He has history of mild conditions including peripheral neuropathy, lumbar spinal stenosis, will be dependent, as is chronic opiate use. He has been managed with use of transdermal fentanyl 37 mcg every 6 hours and oxycodone 20 mg every 6 hours. He was admitted as he was found on a commode confused after he took his oxycodone. Although he does not remember specific details, he feels that he took his oxycodone more frequently and after short duration that he was typically taking it instead of every 6 hours. He has been on this regimen since last admission in July and has not experienced any ill effects recently. He reports that he experiences pain in both lower extremities, bilateral knees, as well as right shoulders. He has been on chronic opiate therapy for "many years". 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 Prior to his last admission July, he was a transdermal fentanyl and oxycodone with persistent pain and therefore his transdermal fentanyl was increased to 37 mcg with improved efficacy. Also, because he is unable to cut the 10 mg oxycodone pill that is prescribed to him to make a total of 15 mg, he typically uses 20 mg oxycodone for breakthrough. Pain Location Full Body Front + Back: 1. 2. 3. 4. 5. Pain Intensity [facility] Combined Pain Scale: 6-Mod to Severe - Significant limit ations of ADLs. Hard to do anything Cause Cause of Pain: Spontaneous Timing Timing: all day and episodic Character Pain character: burning, dull, sharp and intermittent Activity Factors Exacerbated by: prolonged standing and lying in bed Previous Treatment Treatments: surgery and heat Medications: Acetaminophen and Gabapentin Current Therapy Current Medication Therapy: Opiods Patient History Medical History 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) Acquired hallux valgus of right foot (Chronic) Choledocholithiasis CMT (Chupfeb-Kjhnc-Rlwue disease) (Chronic) COPD (chronic obstructive pulmonary disease) (Chronic) Degenerative disc disease Diabetes mellitus with diabetic polyneuropathy (Chronic) Diabetic peripheral neuropathy associated with type 2 diabetes mellitus (Chronic) Gastroesophageal reflux disease (Acute) Hallux valgus (acquired), left foot (Chronic) Hyperlipidemia (Chronic) Hypertensive heart disease (Acute) Left foot drop (Chronic) Multiple closed fractures of ribs of left side (Acute) Right foot drop (Chronic) Spinal stenosis, lumbar region with neurogenic claudication (Chronic) Tobacco user (Acute 09/27/11) Surgical History Hx of tonsillectomy (Chronic) S/P cataract extraction (Resolved) S/P cervical spinal fusion (Chronic) S/P foot surgery, right (Resolved) Status post cholecystectomy (Chronic) Family History Other COPD (chronic obstructive pulmonary disease) Coronary heart disease Social History Preferred Language: Arabic Communication Ability: Effective Visual Impairment: Limited Hearing Ability: Hard of Hearing Patent Leather Sorter Required: No Beliefs That Will Affect Care: None marital status: Current Living Situation: Alone current occupational status: retired Other Information That Helps Us Care for You: No Feels Safe at Home: Yes Safety Concerns: Feels Safe At This Time Smoking Status: Former smoker packs per day: 0.5 ; Hx Alcohol Use: No Hx Substance Use: No Physical Exam Constitutional: WD/WN, vitals as above no acute distress and no physical limitations Musculoskeletal: Spine: + loss of normal cervical lordosis, + pain with cervical ROM, + pain with thoraco-lumbar ROM and + paraspinal tenderness; normal thoraco-lumbar ROM Extremities: + abnormal strength (4/5 in lower extremities) Shoulder: + deformity (Right side), + limited ROM (Right side), + ROM with crepitation (Right shoulder) and + joint line tenderness Knee: + limited ROM of knee Skin: Trauma: + abrasion Neurologic: Motor/Sensory: + sensory deficit (Feet)
[2019-09-28] MEDS: INSULIN ASPART 100 UNITS/ML 3 ML PEN SC SCH ×4 (08:14→20:59)
[2019-09-28] MEDS: fentaNYL 25 MCG/HR TDSY TD SCH (08:15)
--- NOTE | 2019-09-28 08:15 | Electrocardiogram Report ---
Test Reason : Blood Pressure : / mmHG Vent. Rate : 092 BPM Atrial Rate : 241 BPM P-R Int : 000 ms QRS Dur : 106 ms QT Int : 356 ms P-R-T Axes : 000 -76 067 degrees QTc Int : 440 ms Atrial flutter Left axis deviation Inferior infarct (cited on or before 06-JAN-2019) Anterolateral infarct (cited on or before 06-JAN-2019) Abnormal ECG When compared with ECG of 02-AUG-2019 13:06, Nonspecific T wave abnormality no longer evident in Inferior leads Confirmed by Kyrie Schneider ([id number]) on 09/27/2019 5:51:13 PM Referred By: REFERRED SELF Confirmed By:John Schneider
[2019-09-28] MEDS: FLUTICASONE/SALMETEROL 250/50 (ADVAIR) 14 PUFF/1 INHALER INH SCH ×2 (08:16→21:04)
[2019-09-28] MEDS: INSULIN GLARGINE SOLOSTAR 100 UNITS/ML 3 ML PEN SC SCH ×2 (08:16→20:58)
[2019-09-28] MEDS: fentaNYL 12 MCG/HR TDSY TD SCH (08:16)
[2019-09-28] MEDS: PANTOprazole 40 MG TAB PO SCH (08:17)
[2019-09-28] MEDS: DICLOFENAC SOD 1% GEL 100 GM TUBE EXT SCH ×2 (08:17→21:00)
[2019-09-28] MEDS: ASPIRIN 81 MG ECTAB PO SCH (08:17)
[2019-09-28] MEDS: ENALAPRIL MALEATE 10 MG TAB PO SCH ×2 (08:17→21:05)
[2019-09-28] MEDS: VARENICLINE 1 MG TAB PO SCH ×2 (08:17→21:08)
[2019-09-28] MEDS: METOPROLOL SUCC 25MG EXT REL TAB PO SCH ×2 (08:17→21:07)
[2019-09-28] MEDS: MAGNESIUM OXIDE 400 MG TAB PO SCH (08:17)
[2019-09-28] MEDS: ASCORBIC ACID 500 MG TAB PO SCH (08:17)
[2019-09-28] MEDS: prednisoLONE acetate 1% OP SUSP 5 ML BTL OP SCH ×4 (08:18→21:08)
[2019-09-28] MEDS: NYSTATIN CR 15 GM TUBE EXT SCH ×2 (08:18→21:09)
[2019-09-28] MEDS: POLYETHYLENE (MIRALAX) 17 GM PACK PO SCH (08:18)
[2019-09-28] MEDS: PREGABALIN 25 MG CAP PO SCH ×3 (08:20→21:00)
[2019-09-28] MEDS: OXYCODONE HCL IR 5 MG TAB (IMMEDIATE RELEASE) PO PRN ×2 (08:37→19:20)
--- NOTE | 2019-09-28 16:11 | Hospitalist Progress Note ---
Date of Service September 28, 2019 Assessment & Plan (1) Ambulatory dysfunction: present at baseline. uses motorized scooter (2) Generalized weakness: self-limited episode with unclear etiology. (3) CMT (Yqdwwxm-Xzhuf-Mipha disease): contributes to falls, severe chronic pain, narcotic use, and weakness (4) Ribs, multiple fractures: has a fall from Nov with rib fractures in the same area, now displaced without further falls reported. PT/OT to help guide placement needs. Pain control as needed. (5) Degenerative disc disease: h/o spinal stenosis and has an outpatient consultation with Dr. Conde coming up as patient feels this is worsening and contributing to worsened subjective leg weakness. 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 Pain management saw him and adjusted his medication regimen. Seems to be doing well with this. (7) Diabetes mellitus type 2, uncontrolled: Uncontrolled A1C that is significantly improved from 10 to 7.5, Basal/Bolus insulin as needed, currently at goal. (8) Sacral back pain: H/o sacral cellulitis on bactrim Skin breakdown without open wounds visualized on admission. Area unclean with matted fecal material Wound care consult place for care, patient sedentary with limited mobility- high risk for ulcer. (9) Skin abnormalities: Continue nystatin cream for groin and abdominal folds (10) Paroxysmal atrial fibrillation: Rate controlled. Continue digoxin and Toprol Anticoagulated on Eliquis (11) Tobacco use: cont Chantix per home regimen. (12) DVT prophylaxis: Eliquis Full Code Dispo-uncertain, pending PT/OT recommendations. Stefani Andrew DO [facility] Hospitalist Subjective 74 yo M who presented to the ER after a severe episode of weakness. He reports intermittent episodes of weakness in his legs over the past year and has come to rely more on his motorized scooter. He has known spinal stenosis and feels this may have gotten worse, so has an upcoming appointment with Ortho Spine. He reports severe chronic pain for which he was recently issued an increased dose of fentanyl and oxycodone. He manages his own medications and felt he might have taken too many mediations too close together prior to the onset of weakness that drove him to remain seated on the toilet for a few hours until the home health nurse arrived. He denies any respiratory symptoms, UTI symptoms or other infectious symptoms. Workup included a head CT and CXR which were negative. He is moving around his baseline today. Review of Systems Review of Systems: All systems reviewed & are unremarkable except as noted in HPI & below Physical Exam Physical Exam: CONSTITUTIONAL: WNWD, vitals as above, generally well- appearing EYES: normal conjunctivae, no scleral icterus ENT: MMM RESPIRATORY: clear to auscultation bilaterally, no crackles, rales or wheezes, normal respiratory effort CARDIOVASCULAR: regular rate and rhythm, S1 and 2 heard without murmurs, gallops or rubs, no JVD, no peripheral edema GASTROINTESTINAL: soft, nontender, nondistended MUSCULOSKELETAL: strength 5/5 throughout, head is normocephalic and atraumatic, severe joint destruction in hands and feet limiting mobility. SKIN: warm and dry NEUROLOGIC: CN 2-12 grossly intact, no sensory deficit, normal cognition, normal speech, no gross focal deficits. PSYCHIATRIC: alert cooperative and oriented to person, place and time. Results & Data Vital Signs (Past 12 Hours) Vital Signs Temp Pulse Resp BP Pulse Ox 09/28/19 15:39 36.4 C L 80 20 120/73 96 09/28/19 07:09 36.7 C 79 16 147/70 H 94 Laboratory Results Short CBC 09/28/19 Range/Units 06:29 WBC 7.73 (4.8-10.8) K/uL Hgb 12.9 L (14.0-18.0) g/dL Hct 40.5 L (42-52) % Plt Count 175 (130-400) K/uL BMP 09/28/19 06:29 Sodium 135 L Potassium 4.1 Chloride 102 Carbon Dioxide 29 BUN 22 H Creatinine 0.77 Glucose 175 H Calcium 9.1 Medications Administered Current Inpatient Medications Acetaminophen (Tylenol) 650 mg PO Q4H PRN PRN Reason: pain/fever Stop: 10/27/19 19:58 Albuterol (Ventolin Hfa) 2 puffs INH Q6H PRN PRN Reason: Shortness Of Breath Stop: 10/27/19 19:58 Ascorbic Acid (Vitamin C) [facility]: 10/28/19 08:59 Last Admin: 09/28/19 08:17 Dose: 1,000 mg Documented by: Aspirin (Ecotrin Ectab) [facility]: 10/28/19 08:59 Last Admin: 09/28/19 08:17 Dose: 81 mg Documented by: Atorvastatin Calcium (Lipitor) 20 mg PO [facility] Stop: 10/27/19 20:59 Last Admin: 09/27/19 21:18 Dose: 20 mg Documented by: Baclofen (Lioresal) 10 mg PO [facility] Stop: 10/27/19 20:59 Last Admin: 09/27/19 21:18 Dose: 10 mg Documented by: Dextrose (Dextrose 50%) 25 - 50 ml IV UD PRN; Protocol PRN Reason: Hypoglycemia Protocol Stop: 10/27/19 22:53 Diclofenac Sodium (Voltaren 1% Top) 2 gm EXT BID [facility] Stop: 10/27/19 20:59 Last Admin: 09/28/19 08:17 Dose: 2 gm Documented by: Digoxin (Lanoxin) 0.125 mg PO DAILY@1600 [facility] Stop: 10/28/19 15:59 Enalapril Maleate (Vasotec) 20 mg PO BID [facility] Stop: 10/27/19 20:59 Last Admin: 09/28/19 08:17 Dose: 20 mg Documented by: Fentanyl (Duragesic) 12 mcg TD Q3D [facility] Stop: 10/12/19 08:59 Last Admin: 09/28/19 08:16 Dose: 12 mcg Documented by: Fentanyl (Duragesic) 25 mcg TD Q3D [facility] Stop: 10/12/19 08:59 Last Admin: 09/28/19 08:15 Dose: 25 mcg Documented by: Finasteride (Proscar) 5 mg PO QDD [facility] Stop: 10/28/19 16:29 Fish Oil (Ralph-3 (Purified Fish Oil)) 1 gm PO QDD [facility] Stop: 10/28/19 16:29 Furosemide (Lasix) 20 mg PO TUTHSA@0800 [facility] Stop: 10/29/19 07:59 Glucagon (Glucagen) 1 mg SQ UD PRN; Protocol PRN Reason: Hypoglycemia Protocol Stop: 10/27/19 22:53 Glucose (Dex4 Glucose) 4 - 8 tabs PO UD PRN; Protocol PRN Reason: Hypoglycemia Protocol Stop: 10/27/19 22:53 Glucose (Glucose 40%) 15 - 30 gm PO UD PRN; Protocol PRN Reason: Hypoglycemia Protocol Stop: 10/27/19 22:53 Insulin Aspart (Novolog Flexpen) 0 units SC ACHS [facility] Stop: 10/27/19 22:59 Last Admin: 09/28/19 12:19 Dose: 5 units Documented by: Insulin Glargine (Lantus Solostar Pen) 20 units SC BID [facility] Stop: 10/28/19 08:59 Last Admin: 09/28/19 08:16 Dose: 20 units Documented by: Magnesium Oxide (Mag-Ox) 400 mg PO DAILY [facility] Stop: 10/28/19 08:59 Last Admin: 09/28/19 08:17 Dose: 400 mg Documented by: Metoprolol Succinate (Toprol Xl) 12.5 mg PO BID [facility] Stop: 10/27/19 20:59 Last Admin: 09/28/19 08:17 Dose: 12.5 mg Documented by: Miconazole Nitrate (Desenex) 1 appln EXT PRN PRN PRN Reason: Affected Skin Folds Stop: 10/28/19 07:42 Miscellaneous (Fentanyl Patch Remove & Waste) 1 ea N/A Q72H [facility] Stop: 10/28/19 08:58 Last Admin: 09/28/19 08:15 Dose: 1 ea Documented by: Miscellaneous (Fentanyl Patch Check Placement) 1 ea N/A QS [facility] Stop: 10/28/19 00:00 Last Admin: 09/28/19 08:15 Dose: 1 ea Documented by: Miscellaneous (Fentanyl Patch Remove & Waste) 1 ea N/A Q72H [facility] Stop: 10/28/19 08:58 Last Admin: 09/28/19 08:15 Dose: 1 ea Documented by: Miscellaneous (Fentanyl Patch Check Placement) 1 ea N/A QS [facility] Stop: 10/28/19 00:00 Last Admin: 09/28/19 08:15 Dose: 1 ea Documented by: Miscellaneous (Carbohydrates For Hypoglycemia) 15 - 30 gm PO UD PRN PRN Reason: Hypoglycemia Protocol Stop: 10/27/19 22:53 Nystatin (Nystatin) 1 appln EXT BID [facility] Stop: 10/27/19 20:59 Last Admin: 09/28/19 08:18 Dose: 1 appln Documented by: Oxycodone HCl (Roxicodone Immediate Rel) 15 mg PO Q6H PRN PRN Reason: Pain Stop: 10/11/19 19:58 Last Admin: 09/28/19 08:37 Dose: 15 mg Documented by: Pantoprazole Sodium (Protonix) 40 mg PO QAM [facility] Stop: 10/28/19 08:59 Last Admin: 09/28/19 08:17 Dose: 40 mg Documented by: Polyethylene Glycol (Miralax Powder Packet) 17 gm PO DAILY PRN PRN Reason: Constipation Stop: 10/27/19 19:58 Polyethylene Glycol (Miralax Powder Packet) 17 gm PO QAM [facility] Stop: 10/28/19 08:59 Last Admin: 09/28/19 08:18 Dose: 17 gm Documented by: Prednisolone Acetate (Pred Forte 1%) 1 drops OP QID [facility] Stop: 10/27/19 20:59 Last Admin: 09/28/19 12:19 Dose: 1 drops Documented by: Pregabalin (Lyrica) 25 mg PO TID [facility] Stop: 10/27/19 20:59 Last Admin: 09/28/19 14:14 Dose: 25 mg Documented by: Fluticasone/Salmeterol (Advair Diskus 250/50) 1 puffs INH BID [facility] Stop: 10/27/19 20:59 Last Admin: 09/28/19 08:16 Dose: 1 puffs Documented by: Varenicline (Chantix) 1 mg PO BID [facility] Stop: 10/27/19 20:59 Last Admin: 09/28/19 08:17 Dose: 1 mg Documented by: Vitamin B Complex (Vitamin B Complex) 1 tab PO [facility] Stop: 10/27/19 20:59 Last Admin: 09/27/19 21:22 Dose: 1 tab Documented by: Vitamin D (Vitamin D3) 5,000 units PO [facility] Stop: 10/27/19 20:59 Last Admin: 09/27/19 21:21 Dose: 5,000 units Documented by:
[2019-09-28] MEDS: OMEGA-3 (PURIFIED FISH OIL) 1 GM CAP PO SCH (17:02)
[2019-09-28] MEDS: DIGOXIN 0.125 MG TAB PO SCH (17:02)
[2019-09-28] MEDS: FINASTERIDE 5 MG TAB PO SCH (17:03)
[2019-09-28] MEDS: MICONAZOLE NITRATE POWDER 43 GM EXT PRN ×2 (17:11→21:10)
[2019-09-28] MEDS: BACLOFEN 10 MG TAB PO SCH (21:01)
[2019-09-28] MEDS: CHOLECALCIFEROL 1,000 UNITS TAB PO SCH (21:05)
[2019-09-28] MEDS: ATORVASTATIN 20 MG TAB PO SCH (21:08)
[2019-09-28] MEDS: VITAMIN B COMPLEX TAB PO SCH (21:09)
[2019-09-29 07:17] LABS: Hematocrit (blood only) 40.3 % (42-52); Hemoglobin 12.9 g/dL (14.0-18.0); Mean Corpuscular Hemoglobin 28.9 pg (25-34); Mean Corpuscular Volume 90.2 fL (80-100); Mean Platelet Volume 11.3 fL (7.4-10.4); Platelet Count 178 K/uL (130-400); RDW Coefficient of Variation 15.9 % (11.5-14.5); RDW Standard Deviation 52.6 fL (36.4-46.3); Red Blood Count 4.47 M/uL (4.7-6.1); White Blood Count 7.42 K/uL (4.8-10.8)
[2019-09-29 07:44] LABS: BUN Creatinine Ratio 28.7 (10-20); Calcium 9.3 mg/dl (8.5-10.1); Creatinine Clr Calc Pharmacy 100.8 ml/min; Est GFR (African American) 105.6; Est GFR (Non-African American) 91.1; Potassium 4.2 mmol/L (3.5-5.1)
[2019-09-29] MEDS: VARENICLINE 1 MG TAB PO SCH ×3 (09:02→20:59)
[2019-09-29] MEDS: CHECK FENTANYL PATCH PLACEMENT SCH ×4 (09:04→15:40)
[2019-09-29] MEDS: INSULIN ASPART 100 UNITS/ML 3 ML PEN SC SCH ×4 (09:05→21:02)
[2019-09-29] MEDS: FLUTICASONE/SALMETEROL 250/50 (ADVAIR) 14 PUFF/1 INHALER INH SCH ×2 (09:07→20:49)
[2019-09-29] MEDS: FUROSEMIDE 20 MG TAB PO SCH (09:07)
[2019-09-29] MEDS: INSULIN GLARGINE SOLOSTAR 100 UNITS/ML 3 ML PEN SC SCH ×2 (09:08→21:00)
[2019-09-29] MEDS: PREGABALIN 25 MG CAP PO SCH ×3 (09:08→20:50)
[2019-09-29] MEDS: ASPIRIN 81 MG ECTAB PO SCH (09:08)
[2019-09-29] MEDS: MAGNESIUM OXIDE 400 MG TAB PO SCH (09:09)
[2019-09-29] MEDS: POLYETHYLENE (MIRALAX) 17 GM PACK PO SCH (09:09)
[2019-09-29] MEDS: prednisoLONE acetate 1% OP SUSP 5 ML BTL OP SCH ×4 (09:10→20:50)
[2019-09-29] MEDS: PANTOprazole 40 MG TAB PO SCH (09:10)
[2019-09-29] MEDS: DICLOFENAC SOD 1% GEL 100 GM TUBE EXT SCH ×2 (09:13→20:53)
[2019-09-29] MEDS: ENALAPRIL MALEATE 10 MG TAB PO SCH ×2 (09:13→20:51)
[2019-09-29] MEDS: ASCORBIC ACID 500 MG TAB PO SCH (09:13)
[2019-09-29] MEDS: METOPROLOL SUCC 25MG EXT REL TAB PO SCH ×2 (09:14→20:51)
[2019-09-29] MEDS: NYSTATIN CR 15 GM TUBE EXT SCH ×2 (09:23→20:50)
[2019-09-29] MEDS: MICONAZOLE NITRATE POWDER 43 GM EXT PRN (09:24)
[2019-09-29] MEDS: OXYCODONE HCL IR 5 MG TAB (IMMEDIATE RELEASE) PO PRN (15:36)
[2019-09-29] MEDS: DIGOXIN 0.125 MG TAB PO SCH (15:39)
--- NOTE | 2019-09-29 16:55 | Hospitalist Progress Note ---
Date of Service September 29, 2019 Assessment & Plan (1) Ambulatory dysfunction: present at baseline. uses motorized scooter (2) Generalized weakness: self-limited episode with unclear etiology. Appears to have improved and he is close to baseline, but lacks confidence to go home at this time. Awaiting PT/OT to re-evaluate and make solid recommendations. (3) CMT (Jvqzjlh-Rfpjm-Kxvtj disease): contributes to falls, severe chronic pain, narcotic use, and weakness (4) Ribs, multiple fractures: has a fall from Nov with rib fractures in the same area, now displaced without further falls reported. PT/OT to help guide placement needs. Pain control as needed. (5) Degenerative disc disease: h/o spinal stenosis and has an outpatient consultation with Dr. Conde coming up as patient feels this is worsening and contributing to worsened subjective leg weakness. (6) Narcotic dependency, continuous: alf opioid use. Pain management saw him and adjusted his medication regimen. (7) Diabetes mellitus type 2, uncontrolled: Uncontrolled A1C that is significantly improved from 10 to 7.5, Basal/Bolus insulin as needed, currently at goal. (8) Sacral back pain: H/o sacral cellulitis on bactrim Skin breakdown without open wounds visualized on admission. Area unclean with matted fecal material Wound care consult place for care, patient sedentary with limited mobility- high risk for ulcer. (9) Skin abnormalities: Continue nystatin cream for groin and abdominal folds (10) Paroxysmal atrial fibrillation: Rate controlled. Continue digoxin and Toprol Anticoagulated on Eliquis (11) Tobacco use: cont Chantix per home regimen. (12) DVT prophylaxis: Eliquis Full Code Dispo-uncertain, pending PT/OT recommendations. Stefani Andrew DO [facility] Hospitalist Subjective feeling better today weakness is improved but he doesn't feel safe to go home would like to reliably work with PT and OT before making the decision to leave. pain is under control. tolerating PO Review of Systems Review of Systems: All systems reviewed & are unremarkable except as noted in HPI & below Physical Exam Physical Exam: CONSTITUTIONAL: WNWD, vitals as above, generally well- appearing EYES: normal conjunctivae, no scleral icterus ENT: MMM RESPIRATORY: clear to auscultation bilaterally, no crackles, rales or wheezes, normal respiratory effort CARDIOVASCULAR: regular rate and rhythm, S1 and 2 heard without murmurs, gallops or rubs, no JVD, no peripheral edema GASTROINTESTINAL: soft, nontender, nondistended MUSCULOSKELETAL: strength 5/5 throughout, head is normocephalic and atraumatic, severe joint destruction in hands and feet limiting mobility. Some TTP on lower anterior left rib cage. SKIN: warm and dry NEUROLOGIC: CN 2-12 grossly intact, no sensory deficit, normal cognition, normal speech, no gross focal deficits. PSYCHIATRIC: alert cooperative and oriented to person, place and time. Results & Data Vital Signs (Past 12 Hours) Vital Signs Temp Pulse Pulse Resp BP Pulse Ox 09/29/19 15:56 36.4 C L 80 16 113/69 95 09/29/19 15:39 80 09/29/19 15:38 80 94 09/29/19 09:10 78 134/77 09/29/19 07:29 36.5 C 77 16 138/74 94 Laboratory Results Short CBC 09/29/19 Range/Units 06:50 WBC 7.42 (4.8-10.8) K/uL Hgb 12.9 L (14.0-18.0) g/dL Hct 40.3 L (42-52) % Plt Count 178 (130-400) K/uL BMP 09/29/19 06:50 Sodium 134 L Potassium 4.2 Chloride 98 Carbon Dioxide 28 BUN 22 H Creatinine 0.76 Glucose 204 H Calcium 9.3 Medications Administered Current Inpatient Medications Acetaminophen (Tylenol) 650 mg PO Q4H PRN PRN Reason: pain/fever Stop: 10/27/19 19:58 Albuterol (Ventolin Hfa) 2 puffs INH Q6H PRN PRN Reason: Shortness Of Breath Stop: 10/27/19 19:58 Apixaban (Eliquis) 5 mg PO BID [facility] Stop: 10/29/19 20:59 Ascorbic Acid (Vitamin C) 1,000 mg PO QAM [facility] Stop: 10/28/19 08:59 Last Admin: 09/29/19 09:13 Dose: 1,000 mg Documented by: Aspir[facility] ([facility]rin [facility]ctab) [facility]: 10/28/19 08:59 Last Admin: 09/29/19 09:08 Dose: 81 mg Documented by: Atorvastatin Calcium (Lipitor) 20 mg PO [facility] Stop: 10/27/19 20:59 Last Admin: 09/28/19 21:08 Dose: 20 mg Documented by: Baclofen (Lioresal) 10 mg PO [facility] Stop: 10/27/19 20:59 Last Admin: 09/28/19 21:01 Dose: 10 mg Documented by: Dextrose (Dextrose 50%) 25 - 50 ml IV UD PRN; Protocol PRN Reason: Hypoglycemia Protocol Stop: 10/27/19 22:53 Diclofenac Sodium (Voltaren 1% Top) 2 gm EXT BID [facility] Stop: 10/27/19 20:59 Last Admin: 09/29/19 09:13 Dose: 2 gm Documented by: Digoxin (Lanoxin) 0.125 mg PO DAILY@1600 [facility] Stop: 10/28/19 15:59 Last Admin: 09/29/19 15:39 Dose: 0.125 mg Documented by: Enalapril Maleate (Vasotec) 20 mg PO BID [facility] Stop: 10/27/19 20:59 Last Admin: 09/29/19 09:13 Dose: 20 mg Documented by: Fentanyl (Duragesic) 12 mcg TD Q3D [facility] Stop: 10/12/19 08:59 Last Admin: 09/28/19 08:16 Dose: 12 mcg Documented by: Fentanyl (Duragesic) 25 mcg TD Q3D [facility] Stop: 10/12/19 08:59 Last Admin: 09/28/19 08:15 Dose: 25 mcg Documented by: Finasteride (Proscar) 5 mg PO QDD [facility] Stop: 10/28/19 16:29 Last Admin: 09/28/19 17:03 Dose: 5 mg Documented by: Fish Oil (Cabazon-3 (Purified Fish Oil)) 1 gm PO QDD [facility] Stop: 10/28/19 16:29 Last Admin: 09/28/19 17:02 Dose: 1 gm Documented by: Furosemide (Lasix) 20 mg PO TUTHSA@0800 [facility] Stop: 10/29/19 07:59 Last Admin: 09/29/19 09:07 Dose: 20 mg Documented by: Glucagon (Glucagen) 1 mg SQ UD PRN; Protocol PRN Reason: Hypoglycemia Protocol Stop: 10/27/19 22:53 Glucose (Dex4 Glucose) 4 - 8 tabs PO UD PRN; Protocol PRN Reason: Hypoglycemia Protocol Stop: 10/27/19 22:53 Glucose (Glucose 40%) 15 - 30 gm PO UD PRN; Protocol PRN Reason: Hypoglycemia Protocol Stop: 10/27/19 22:53 Insulin Aspart (Novolog Flexpen) 0 units SC ACHS [facility] Stop: 10/27/19 22:59 Last Admin: 09/29/19 12:52 Dose: 24 units Documented by: Insulin Glargine (Lantus Solostar Pen) 20 units SC BID [facility] Stop: 10/28/19 08:59 Last Admin: 09/29/19 09:08 Dose: 20 units Documented by: Magnesium Oxide (Mag-Ox) 400 mg PO DAILY [facility] Stop: 10/28/19 08:59 Last Admin: 09/29/19 09:09 Dose: 400 mg Documented by: Metoprolol Succinate (Toprol Xl) 12.5 mg PO BID [facility] Stop: 10/27/19 20:59 Last Admin: 09/29/19 09:14 Dose: 12.5 mg Documented by: Miconazole Nitrate (Desenex) 1 appln EXT PRN PRN PRN Reason: Affected Skin Folds Stop: 10/28/19 07:42 Last Admin: 09/29/19 09:24 Dose: 1 appln Documented by: Miscellaneous (Fentanyl Patch Remove & Waste) 1 ea N/A Q72H [facility] Stop: 10/28/19 08:58 Last Admin: 09/28/19 08:15 Dose: 1 ea Documented by: Miscellaneous (Fentanyl Patch Check Placement) 1 ea N/A QS [facility] Stop: 10/28/19 00:00 Last Admin: 09/29/19 15:39 Dose: 1 ea Documented by: Miscellaneous (Fentanyl Patch Remove & Waste) 1 ea N/A Q72H [facility] Stop: 10/28/19 08:58 Last Admin: 09/28/19 08:15 Dose: 1 ea Documented by: Miscellaneous (Fentanyl Patch Check Placement) 1 ea N/A QS [facility] Stop: 10/28/19 00:00 Last Admin: 09/29/19 15:40 Dose: 1 ea Documented by: Miscellaneous (Carbohydrates For Hypoglycemia) 15 - 30 gm PO UD PRN PRN Reason: Hypoglycemia Protocol Stop: 10/27/19 22:53 Nystatin (Nystatin) 1 appln EXT BID [facility] Stop: 10/27/19 20:59 Last Admin: 09/29/19 09:23 Dose: 1 appln Documented by: Oxycodone HCl (Roxicodone Immediate Rel) 15 mg PO Q6H PRN PRN Reason: Pain Stop: 10/11/19 19:58 Last Admin: 09/29/19 15:36 Dose: 15 mg Documented by: Pantoprazole Sodium (Protonix) 40 mg PO QAM [facility] Stop: 10/28/19 08:59 Last Admin: 09/29/19 09:10 Dose: 40 mg Documented by: Polyethylene Glycol (Miralax Powder Packet) 17 gm PO DAILY PRN PRN Reason: Constipation Stop: 10/27/19 19:58 Polyethylene Glycol (Miralax Powder Packet) 17 gm PO QAM [facility] Stop: 10/28/19 08:59 Last Admin: 09/29/19 09:09 Dose: 17 gm Documented by: Prednisolone Acetate (Pred Forte 1%) 1 drops OP QID [facility] Stop: 10/27/19 20:59 Last Admin: 09/29/19 12:53 Dose: 1 drops Documented by: Pregabalin (Lyrica) 25 mg PO TID [facility] Stop: 10/27/19 20:59 Last Admin: 09/29/19 13:43 Dose: 25 mg Documented by: Fluticasone/Salmeterol (Advair Diskus 250/50) 1 puffs INH BID [facility] Stop: 10/27/19 20:59 Last Admin: 09/29/19 09:07 Dose: 1 puffs Documented by: Varenicline (Chantix) 1 mg PO BID [facility] Stop: 10/27/19 20:59 Last Admin: 09/29/19 09:02 Dose: Not Given Documented by: Vitamin B Complex (Vitamin B Complex) 1 tab PO [facility] Stop: 10/27/19 20:59 Last Admin: 09/28/19 21:09 Dose: 1 tab Documented by: Vitamin D (Vitamin D3) 5,000 units PO [facility] Stop: 10/27/19 20:59 Last Admin: 09/28/19 21:05 Dose: 5,000 units Documented by:
[2019-09-29] MEDS: FINASTERIDE 5 MG TAB PO SCH (17:07)
[2019-09-29] MEDS: OMEGA-3 (PURIFIED FISH OIL) 1 GM CAP PO SCH (17:08)
--- NOTE | 2019-09-29 17:40 | XRay Report ---
XR chest 1V portable HISTORY: recent rib fx with displacement, check if dev eff COMPARISON: Chest 09/27/2019. FINDINGS: Left posterior rib fractures are again noted. These are not significantly changed and appea r to be healing. No pneumothorax. No pleural effusions. Left basilar linear densities favor subsegmen bharat atelectasis. The heart is normal in size. There is mild central pulmonary vascular congestion wit hout overt edema. Redemonstration of the 1.4 cm nodule within the right lung base. IMPRESSION: 1. Healing left posterior rib fractures. No pneumothorax. 2. Redemonstration of the 1.4 cm right lower lobe nodule. ACT 112: Negative or not required by law. Electronically signed by: Mina Buchanan M.D. 09/29/2019 5:39 PM
[2019-09-29] MEDS: ACETAMINOPHEN 325 MG TAB PO PRN (20:08)
[2019-09-29] MEDS: APIXABAN 5 MG TABLET PO SCH (20:48)
[2019-09-29] MEDS: ATORVASTATIN 20 MG TAB PO SCH (20:49)
[2019-09-29] MEDS: BACLOFEN 10 MG TAB PO SCH (20:49)
[2019-09-29] MEDS: VITAMIN B COMPLEX TAB PO SCH (20:52)
[2019-09-29] MEDS: CHOLECALCIFEROL 1,000 UNITS TAB PO SCH (20:52)
[2019-09-30] MEDS: CHECK FENTANYL PATCH PLACEMENT SCH ×8 (00:11→23:19)
[2019-09-30] MEDS: PREGABALIN 25 MG CAP PO SCH ×3 (08:18→20:55)
[2019-09-30] MEDS: APIXABAN 5 MG TABLET PO SCH ×2 (08:18→20:45)
[2019-09-30] MEDS: PANTOprazole 40 MG TAB PO SCH (08:18)
[2019-09-30] MEDS: ASCORBIC ACID 500 MG TAB PO SCH (08:18)
[2019-09-30] MEDS: ASPIRIN 81 MG ECTAB PO SCH (08:19)
[2019-09-30] MEDS: MAGNESIUM OXIDE 400 MG TAB PO SCH (08:19)
[2019-09-30] MEDS: ENALAPRIL MALEATE 10 MG TAB PO SCH ×2 (08:19→20:47)
[2019-09-30] MEDS: METOPROLOL SUCC 25MG EXT REL TAB PO SCH ×2 (08:19→20:54)
[2019-09-30] MEDS: VARENICLINE 1 MG TAB PO SCH (08:19)
[2019-09-30] MEDS: INSULIN ASPART 100 UNITS/ML 3 ML PEN SC SCH ×4 (08:20→21:03)
[2019-09-30] MEDS: FLUTICASONE/SALMETEROL 250/50 (ADVAIR) 14 PUFF/1 INHALER INH SCH ×2 (08:20→20:44)
[2019-09-30] MEDS: DICLOFENAC SOD 1% GEL 100 GM TUBE EXT SCH ×2 (08:21→20:47)
[2019-09-30] MEDS: INSULIN GLARGINE SOLOSTAR 100 UNITS/ML 3 ML PEN SC SCH ×3 (08:21→20:57)
[2019-09-30] MEDS: NYSTATIN CR 15 GM TUBE EXT SCH ×2 (08:22→20:47)
[2019-09-30] MEDS: POLYETHYLENE (MIRALAX) 17 GM PACK PO SCH (08:22)
[2019-09-30] MEDS: prednisoLONE acetate 1% OP SUSP 5 ML BTL OP SCH ×4 (08:22→20:48)
[2019-09-30] MEDS: OXYCODONE HCL IR 5 MG TAB (IMMEDIATE RELEASE) PO PRN ×2 (11:10→21:36)
[2019-09-30] MEDS: ACETAMINOPHEN 325 MG TAB PO PRN (16:08)
[2019-09-30] MEDS: DIGOXIN 0.125 MG TAB PO SCH (16:08)
[2019-09-30] MEDS: OMEGA-3 (PURIFIED FISH OIL) 1 GM CAP PO SCH (16:09)
[2019-09-30] MEDS: FINASTERIDE 5 MG TAB PO SCH (16:09)
--- NOTE | 2019-09-30 19:16 | Hospitalist Progress Note ---
Date of Service September 30, 2019 Assessment & Plan (1) Ambulatory dysfunction: present at baseline. uses motorized scooter (2) Generalized weakness: self-limited episode with unclear etiology. Appears to have improved and he is close to baseline, but lacks confidence to go home at this time. Awaiting PT/OT to re-evaluate and make solid recommendations. (3) CMT (Ihqkzfb-Lhlah-Wognt disease): contributes to falls, severe chronic pain, narcotic use, and weakness (4) Ribs, multiple fractures: has a fall from Nov with rib fractures in the same area, now displaced without further falls reported. PT/OT to help guide placement needs. Pain control as needed. (5) Degenerative disc disease: h/o spinal stenosis and has an outpatient consultation with Dr. Conde coming up as patient feels this is worsening and contributing to worsened subjective leg weakness. (6) Narcotic dependency, continuous: penitentiary opioid use. Pain management saw him and adjusted his medication regimen. (7) Diabetes mellitus type 2, uncontrolled: Uncontrolled A1C that is significantly improved from 10 to 7.5, Basal/Bolus insulin as needed, currently at goal. (8) Sacral back pain: H/o sacral cellulitis on bactrim Skin breakdown without open wounds visualized on admission. Area unclean with matted fecal material Wound care consult place for care, patient sedentary with limited mobility- high risk for ulcer. (9) Skin abnormalities: Continue nystatin cream for groin and abdominal folds (10) Paroxysmal atrial fibrillation: Rate controlled. Continue digoxin and Toprol Anticoagulated on Eliquis (11) Tobacco use: discontinue this now in case it may be contributing to symptoms of weakness. (12) DVT prophylaxis: Eliquis Full Code Dispo-uncertain, pending PT/OT recommendations. Stefani Andrew DO [facility] Hospitalist Subjective we spoke about medications somewhat, and the fact that chantix is a new medication pain is controlled still feeling subjectively weak but improved since admission. Review of Systems Review of Systems: All systems reviewed & are unremarkable except as noted in HPI & below Physical Exam Physical Exam: CONSTITUTIONAL: WNWD, vitals as above, generally well- appearing EYES: normal conjunctivae, no scleral icterus ENT: MMM RESPIRATORY: clear to auscultation bilaterally, no crackles, rales or wheezes, normal respiratory effort CARDIOVASCULAR: regular rate and rhythm, S1 and 2 heard without murmurs, gallops or rubs, no JVD, no peripheral edema GASTROINTESTINAL: soft, nontender, nondistended MUSCULOSKELETAL: strength 5/5 throughout, head is normocephalic and atraumatic, severe joint destruction in hands and feet limiting mobility. Some TTP on lower anterior left rib cage. SKIN: warm and dry NEUROLOGIC: CN 2-12 grossly intact, no sensory deficit, normal cognition, normal speech, no gross focal deficits. PSYCHIATRIC: alert cooperative and oriented to person, place and time. Results & Data Vital Signs (Past 12 Hours) Vital Signs Temp Pulse Resp BP Pulse Ox 09/30/19 15:18 36.8 C 79 16 132/83 98 09/30/19 07:40 36.7 C 64 18 143/75 H 95 Medications Administered Current Inpatient Medications Acetaminophen (Tylenol) 650 mg PO Q4H PRN PRN Reason: pain/fever Stop: 10/27/19 19:58 Last Admin: 09/30/19 16:08 Dose: 650 mg Documented by: Albuterol (Ventolin Hfa) 2 puffs INH Q6H PRN PRN Reason: Shortness Of Breath Stop: 10/27/19 19:58 Apixaban (Eliquis) 5 mg PO BID [facility] Stop: 10/29/19 20:59 Last Admin: 09/30/19 08:18 Dose: 5 mg Documented by: Ascorbic Acid (Vitamin C) 1,000 mg PO QAM [facility] Stop: 10/28/19 08:59 Last Admin: 09/30/19 08:18 Dose: 1,000 mg Documented by: Aspirin (Ecotrin Ectab) 81 mg PO QAM [facility] Stop: 10/28/19 08:59 Last Admin: 09/30/19 08:19 Dose: 81 mg Documented by: Atorvastatin Calcium (Lipitor) 20 mg PO [facility] Stop: 10/27/19 20:59 Last Admin: 09/29/19 20:49 Dose: 20 mg Documented by: Baclofen (Lioresal) 10 mg PO HS [facility] Stop: 10/27/19 20:59 Last Admin: 09/29/19 20:49 Dose: 10 mg Documented by: Dextrose (Dextrose 50%) 25 - 50 ml IV UD PRN; Protocol PRN Reason: Hypoglycemia Protocol Stop: 10/27/19 22:53 Diclofenac Sodium (Voltaren 1% Top) 2 gm EXT BID [facility] Stop: 10/27/19 20:59 Last Admin: 09/30/19 08:21 Dose: 2 gm Documented by: Digoxin (Lanoxin) 0.125 mg PO DAILY@1600 [facility] Stop: 10/28/19 15:59 Last Admin: 09/30/19 16:08 Dose: 0.125 mg Documented by: Enalapril Maleate (Vasotec) 20 mg PO BID [facility] Stop: 10/27/19 20:59 Last Admin: 09/30/19 08:19 Dose: 20 mg Documented by: Fentanyl (Duragesic) 12 mcg TD Q3D [facility] Stop: 10/12/19 08:59 Last Admin: 09/28/19 08:16 Dose: 12 mcg Documented by: Fentanyl (Duragesic) 25 mcg TD Q3D [facility] Stop: 10/12/19 08:59 Last Admin: 09/28/19 08:15 Dose: 25 mcg Documented by: Finasteride (Proscar) 5 mg PO QDD [facility] Stop: 10/28/19 16:29 Last Admin: 09/30/19 16:09 Dose: 5 mg Documented by: Fish Oil (Jermyn-3 (Purified Fish Oil)) 1 gm PO QDD [facility] Stop: 10/28/19 16:29 Last Admin: 09/30/19 16:09 Dose: 1 gm Documented by: Furosemide (Lasix) 20 mg PO TUTHSA@0800 [facility] Stop: 10/29/19 07:59 Last Admin: 09/29/19 09:07 Dose: 20 mg Documented by: Glucagon (Glucagen) 1 mg SQ UD PRN; Protocol PRN Reason: Hypoglycemia Protocol Stop: 10/27/19 22:53 Glucose (Dex4 Glucose) 4 - 8 tabs PO UD PRN; Protocol PRN Reason: Hypoglycemia Protocol Stop: 10/27/19 22:53 Glucose (Glucose 40%) 15 - 30 gm PO UD PRN; Protocol PRN Reason: Hypoglycemia Protocol Stop: 10/27/19 22:53 Insulin Aspart (Novolog Flexpen) 0 units SC ACHS [facility] Stop: 10/27/19 22:59 Last Admin: 09/30/19 17:51 Dose: 19 units Documented by: Insulin Glargine (Lantus Solostar Pen) 25 units SC BID [facility] Stop: 10/30/19 08:59 Last Admin: 09/30/19 08:58 Dose: 25 units Documented by: Magnesium Oxide (Mag-Ox) 400 mg PO DAILY [facility] Stop: 10/28/19 08:59 Last Admin: 09/30/19 08:19 Dose: 400 mg Documented by: Metoprolol Succinate (Toprol Xl) 12.5 mg PO BID [facility] Stop: 10/27/19 20:59 Last Admin: 09/30/19 08:19 Dose: 12.5 mg Documented by: Miconazole Nitrate (Desenex) 1 appln EXT PRN PRN PRN Reason: Affected Skin Folds Stop: 10/28/19 07:42 Last Admin: 09/29/19 09:24 Dose: 1 appln Documented by: Miscellaneous (Fentanyl Patch Remove & Waste) 1 ea N/A Q72H [facility] Stop: 10/28/19 08:58 Last Admin: 09/28/19 08:15 Dose: 1 ea Documented by: Miscellaneous (Fentanyl Patch Check Placement) 1 ea N/A QS [facility] Stop: 10/28/19 00:00 Last Admin: 09/30/19 16:07 Dose: 1 ea Documented by: Miscellaneous (Fentanyl Patch Remove & Waste) 1 ea N/A Q72H [facility] Stop: 10/28/19 08:58 Last Admin: 09/28/19 08:15 Dose: 1 ea Documented by: Miscellaneous (Fentanyl Patch Check Placement) 1 ea N/A QS [facility] Stop: 10/28/19 00:00 Last Admin: 09/30/19 16:07 Dose: 1 ea Documented by: Miscellaneous (Carbohydrates For Hypoglycemia) 15 - 30 gm PO UD PRN PRN Reason: Hypoglycemia Protocol Stop: 10/27/19 22:53 Nystatin (Nystatin) 1 appln EXT BID [facility] Stop: 10/27/19 20:59 Last Admin: 09/30/19 08:22 Dose: 1 appln Documented by: Oxycodone HCl (Roxicodone Immediate Rel) 15 mg PO Q6H PRN PRN Reason: Pain Stop: 10/11/19 19:58 Last Admin: 09/30/19 11:10 Dose: 15 mg Documented by: Pantoprazole Sodium (Protonix) 40 mg PO QAM [facility] Stop: 10/28/19 08:59 Last Admin: 09/30/19 08:18 Dose: 40 mg Documented by: Polyethylene Glycol (Miralax Powder Packet) 17 gm PO DAILY PRN PRN Reason: Constipation Stop: 10/27/19 19:58 Polyethylene Glycol (Miralax Powder Packet) 17 gm PO QAM [facility] Stop: 10/28/19 08:59 Last Admin: 09/30/19 08:22 Dose: 17 gm Documented by: Prednisolone Acetate (Pred Forte 1%) 1 drops OP QID [facility] Stop: 10/27/19 20:59 Last Admin: 09/30/19 16:09 Dose: 1 drops Documented by: Pregabalin (Lyrica) 25 mg PO TID [facility] Stop: 10/27/19 20:59 Last Admin: 09/30/19 12:59 Dose: 25 mg Documented by: Fluticasone/Salmeterol (Advair Diskus 250/50) 1 puffs INH BID [facility] Stop: 10/27/19 20:59 Last Admin: 09/30/19 08:20 Dose: 1 puffs Documented by: Varenicline (Chantix) 1 mg PO BID [facility] Stop: 10/27/19 20:59 Last Admin: 09/30/19 08:19 Dose: 1 mg Documented by: Vitamin B Complex (Vitamin B Complex) 1 tab PO HS [facility] Stop: 10/27/19 20:59 Last Admin: 09/29/19 20:52 Dose: 1 tab Documented by: Vitamin D (Vitamin D3) 5,000 units PO HS [facility] Stop: 10/27/19 20:59 Last Admin: 09/29/19 20:52 Dose: 5,000 units Documented by:
[2019-09-30] MEDS: VITAMIN B COMPLEX TAB PO SCH (20:44)
[2019-09-30] MEDS: BACLOFEN 10 MG TAB PO SCH (20:45)
[2019-09-30] MEDS: ATORVASTATIN 20 MG TAB PO SCH (20:45)
[2019-09-30] MEDS: CHOLECALCIFEROL 1,000 UNITS TAB PO SCH (20:46)
[2019-10-01 06:06] LABS: Estimated Average Glucose 169 mg/dl; Hemoglobin A1C 7.5 % (4.5-5.6)
[2019-10-01] MEDS: MICONAZOLE NITRATE POWDER 43 GM EXT PRN (07:11)
[2019-10-01] MEDS: OXYCODONE HCL IR 5 MG TAB (IMMEDIATE RELEASE) PO PRN ×3 (07:14→22:07)
[2019-10-01] MEDS: CHECK FENTANYL PATCH PLACEMENT SCH ×6 (07:47→23:40)
[2019-10-01] MEDS: fentaNYL 25 MCG/HR TDSY TD SCH (08:47)
[2019-10-01] MEDS: fentaNYL 12 MCG/HR TDSY TD SCH (08:47)
[2019-10-01] MEDS: ASPIRIN 81 MG ECTAB PO SCH (08:53)
[2019-10-01] MEDS: FLUTICASONE/SALMETEROL 250/50 (ADVAIR) 14 PUFF/1 INHALER INH SCH ×2 (08:53→20:58)
[2019-10-01] MEDS: APIXABAN 5 MG TABLET PO SCH ×2 (08:54→20:59)
[2019-10-01] MEDS: PREGABALIN 25 MG CAP PO SCH ×3 (08:54→21:12)
[2019-10-01] MEDS: MAGNESIUM OXIDE 400 MG TAB PO SCH ×2 (08:54→21:00)
[2019-10-01] MEDS: NYSTATIN CR 15 GM TUBE EXT SCH ×2 (08:55→20:58)
[2019-10-01] MEDS: prednisoLONE acetate 1% OP SUSP 5 ML BTL OP SCH ×4 (08:55→20:58)
[2019-10-01] MEDS: METOPROLOL SUCC 25MG EXT REL TAB PO SCH ×2 (08:56→20:59)
[2019-10-01] MEDS: PANTOprazole 40 MG TAB PO SCH (08:56)
[2019-10-01] MEDS: ENALAPRIL MALEATE 10 MG TAB PO SCH ×2 (08:57→20:59)
[2019-10-01] MEDS: ASCORBIC ACID 500 MG TAB PO SCH (08:58)
[2019-10-01] MEDS: DICLOFENAC SOD 1% GEL 100 GM TUBE EXT SCH ×2 (09:00→20:59)
[2019-10-01] MEDS: INSULIN GLARGINE SOLOSTAR 100 UNITS/ML 3 ML PEN SC SCH ×2 (09:06→21:00)
[2019-10-01] MEDS: INSULIN ASPART 100 UNITS/ML 3 ML PEN SC SCH ×4 (09:07→21:01)
[2019-10-01] MEDS: POLYETHYLENE (MIRALAX) 17 GM PACK PO SCH (09:13)
[2019-10-01] MEDS: DIGOXIN 0.125 MG TAB PO SCH (15:54)
[2019-10-01] MEDS: OMEGA-3 (PURIFIED FISH OIL) 1 GM CAP PO SCH (15:55)
[2019-10-01] MEDS: FINASTERIDE 5 MG TAB PO SCH (15:55)
--- NOTE | 2019-10-01 18:00 | Hospitalist Progress Note ---
Date of Service October 01, 2019 Assessment & Plan (1) Ambulatory dysfunction: present at baseline. uses motorized scooter. Was able to ambulate with walking device in the hallway with PT today. However, patient declines rehab as a transition to home. May benefit from home PT/OT (2) Generalized weakness: self-limited episode with unclear etiology. Appears to have improved and he is close to baseline, but lacks confidence to go home at this time. Awaiting PT/OT to re-evaluate and make solid recommendations. (3) CMT (Vjostxc-Figke-Smmyl disease): terminal disease, contributes to falls, severe chronic pain, narcotic use, and weakness (4) Ribs, multiple fractures: has a fall from Nov with rib fractures in the same area, now displaced without further falls reported. PT/OT to help guide placement needs. Pain control as needed. (5) Degenerative disc disease: h/o spinal stenosis and has an outpatient consultation with Dr. Conde coming up as patient feels this is worsening and contributing to worsened subjective leg weakness. 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 Pain management saw him and adjusted his medication regimen. (7) Diabetes mellitus type 2, uncontrolled: Uncontrolled A1C that is significantly improved from 10 to 7.5, Basal/Bolus insulin as needed, currently at goal. (8) Sacral back pain: H/o sacral cellulitis on bactrim Skin breakdown without open wounds visualized on admission. Pt states this is getting better. Cont wound care. (9) Skin abnormalities: Continue nystatin cream for groin and abdominal folds (10) Paroxysmal atrial fibrillation: Rate controlled. Continue digoxin and Toprol Anticoagulated on Eliquis (11) Tobacco use: Chantix discontinued yesterday (12) DVT prophylaxis: Eliquis Full Code Dispo-likely to home with home health for PT/OT. Stefani Andrew DO [facility] Hospitalist Subjective doing well today feeling stronger and ambulated in the hallway with his cane with PT today appears to have more pep and confidence in going home tomorrow I reviewed his medications with daughter Shantell who is a nurse, by phone this evening, and we discussed potential changes to discuss with his primary care physician moving forward Review of Systems Review of Systems: All systems reviewed & are unremarkable except as noted in HPI & below Physical Exam Physical Exam: CONSTITUTIONAL: WNWD, vitals as above, generally well-lexy earing EYES: normal conjunctivae, no scleral icterus ENT: MMM RESPIRATORY: clear to auscultation bilaterally, no crackles, rales or wheezes, normal respiratory effort CARDIOVASCULAR: regular rate and rhythm, S1 and 2 heard without murmurs, gallops or rubs, no JVD, no peripheral edema GASTROINTESTINAL: soft, nontender, nondistended MUSCULOSKELETAL: strength 5/5 throughout, head is normocephalic and atraumatic, severe joint destruction in hands and feet limiting mobility. SKIN: warm and dry NEUROLOGIC: CN 2-12 grossly intact, no sensory deficit, normal cognition, normal speech, no gross focal deficits. PSYCHIATRIC: alert cooperative and oriented to person, place and time. Results & Data Vital Signs (Past 12 Hours) Vital Signs Temp Pulse Pulse Resp BP Pulse Ox 10/01/19 15:54 78 10/01/19 07:02 36.5 C 78 18 156/84 H 98 Medications Administered Current Inpatient Medications Acetaminophen (Tylenol) 650 mg PO Q4H PRN PRN Reason: pain/fever Stop: 10/27/19 19:58 Last Admin: 09/30/19 16:08 Dose: 650 mg Documented by: Albuterol (Ventolin Hfa) 2 puffs INH Q6H PRN PRN Reason: Shortness Of Breath Stop: 10/27/19 19:58 Apixaban (Eliquis) 5 mg PO BID [facility] Stop: 10/29/19 20:59 Last Admin: 10/01/19 08:54 Dose: 5 mg Documented by: Ascorbic Acid (Vitamin C) 1,000 mg PO QAM [facility] Stop: 10/28/19 08:59 Last Admin: 10/01/19 08:58 Dose: 1,000 mg Documented by: Aspirin (Ecotrin Ectab) 81 mg PO QAM [facility] Stop: 10/28/19 08:59 Last Admin: 10/01/19 08:53 Dose: 81 mg Documented by: Atorvastatin Calcium (Lipitor) 20 mg PO [facility] Stop: 10/27/19 20:59 Last Admin: 09/30/19 20:45 Dose: 20 mg Documented by: Dextrose (Dextrose 50%) 25 - 50 ml IV UD PRN; Protocol PRN Reason: Hypoglycemia Protocol Stop: 10/27/19 22:53 Diclofenac Sodium (Voltaren 1% Top) 2 gm EXT BID [facility] Stop: 10/27/19 20:59 Last Admin: 10/01/19 09:00 Dose: 2 gm Documented by: Digoxin (Lanoxin) 0.125 mg PO DAILY@1600 [facility] Stop: 10/28/19 15:59 Last Admin: 10/01/19 15:54 Dose: 0.125 mg Documented by: Enalapril Maleate (Vasotec) 20 mg PO BID [facility] Stop: 10/27/19 20:59 Last Admin: 10/01/19 08:57 Dose: 20 mg Documented by: Fentanyl (Duragesic) 12 mcg TD Q3D [facility] Stop: 10/12/19 08:59 Last Admin: 10/01/19 08:47 Dose: 12 mcg Documented by: Fentanyl (Duragesic) 25 mcg TD Q3D [facility] Stop: 10/12/19 08:59 Last Admin: 10/01/19 08:47 Dose: 25 mcg Documented by: Finasteride (Proscar) 5 mg PO QDD [facility] Stop: 10/28/19 16:29 Last Admin: 10/01/19 15:55 Dose: 5 mg Documented by: Fish Oil (Martin-3 (Purified Fish Oil)) 1 gm PO QDD [facility] Stop: 10/28/19 16:29 Last Admin: 10/01/19 15:55 Dose: 1 gm Documented by: Furosemide (Lasix) 20 mg PO TUTHSA@0800 [facility] Stop: 10/29/19 07:59 Last Admin: 09/29/19 09:07 Dose: 20 mg Documented by: Glucagon (Glucagen) 1 mg SQ UD PRN; Protocol PRN Reason: Hypoglycemia Protocol Stop: 10/27/19 22:53 Glucose (Dex4 Glucose) 4 - 8 tabs PO UD PRN; Protocol PRN Reason: Hypoglycemia Protocol Stop: 10/27/19 22:53 Glucose (Glucose 40%) 15 - 30 gm PO UD PRN; Protocol PRN Reason: Hypoglycemia Protocol Stop: 10/27/19 22:53 Insulin Aspart (Novolog Flexpen) 0 units SC ACHS [facility] Stop: 10/27/19 22:59 Last Admin: 10/01/19 17:38 Dose: 18 units Documented by: Insulin Glargine (Lantus Solostar Pen) 25 units SC BID [facility] Stop: 10/30/19 08:59 Last Admin: 10/01/19 09:06 Dose: 25 units Documented by: Magnesium Oxide (Mag-Ox) 400 mg PO BID [facility] Stop: 10/31/19 20:59 Metoprolol Succinate (Toprol Xl) 12.5 mg PO BID [facility] Stop: 10/27/19 20:59 Last Admin: 10/01/19 08:56 Dose: 12.5 mg Documented by: Miconazole Nitrate (Desenex) 1 appln EXT PRN PRN PRN Reason: Affected Skin Folds Stop: 10/28/19 07:42 Last Admin: 10/01/19 07:11 Dose: 1 appln Documented by: Miscellaneous (Fentanyl Patch Remove & Waste) 1 ea N/A Q72H [facility] Stop: 10/28/19 08:58 Last Admin: 10/01/19 08:47 Dose: 1 ea Documented by: Miscellaneous (Fentanyl Patch Check Placement) 1 ea N/A QS [facility] Stop: 10/28/19 00:00 Last Admin: 10/01/19 15:54 Dose: 1 ea Documented by: Miscellaneous (Fentanyl Patch Remove & Waste) 1 ea N/A Q72H [facility] Stop: 10/28/19 08:58 Last Admin: 10/01/19 08:47 Dose: 1 ea Documented by: Miscellaneous (Fentanyl Patch Check Placement) 1 ea N/A QS [facility] Stop: 10/28/19 00:00 Last Admin: 10/01/19 15:54 Dose: 1 ea Documented by: Miscellaneous (Carbohydrates For Hypoglycemia) 15 - 30 gm PO UD PRN PRN Reason: Hypoglycemia Protocol Stop: 10/27/19 22:53 Nystatin (Nystatin) 1 appln EXT BID [facility] Stop: 10/27/19 20:59 Last Admin: 10/01/19 08:55 Dose: 1 appln Documented by: Oxycodone HCl (Roxicodone Immediate Rel) 15 mg PO Q6H PRN PRN Reason: Pain Stop: 10/11/19 19:58 Last Admin: 10/01/19 15:52 Dose: 15 mg Documented by: Pantoprazole Sodium (Protonix) 40 mg PO QAM [facility] Stop: 10/28/19 08:59 Last Admin: 10/01/19 08:56 Dose: 40 mg Documented by: Polyethylene Glycol (Miralax Powder Packet) 17 gm PO DAILY PRN PRN Reason: Constipation Stop: 10/27/19 19:58 Polyethylene Glycol (Miralax Powder Packet) 17 gm PO QAM [facility] Stop: 10/28/19 08:59 Last Admin: 10/01/19 09:13 Dose: 17 gm Documented by: Prednisolone Acetate (Pred Forte 1%) 1 drops OP QID [facility] Stop: 10/27/19 20:59 Last Admin: 10/01/19 16:00 Dose: 1 drops Documented by: Pregabalin (Lyrica) 25 mg PO TID [facility] Stop: 10/27/19 20:59 Last Admin: 10/01/19 14:14 Dose: 25 mg Documented by: Fluticasone/Salmeterol (Advair Diskus 250/50) 1 puffs INH BID [facility] Stop: 10/27/19 20:59 Last Admin: 10/01/19 08:53 Dose: 1 puffs Documented by: Vitamin B Complex (Vitamin B Complex) 1 tab PO [facility] Stop: 10/27/19 20:59 Last Admin: 09/30/19 20:44 Dose: 1 tab Documented by: Vitamin D (Vitamin D3) 5,000 units PO HS [facility] Stop: 10/27/19 20:59 Last Admin: 09/30/19 20:46 Dose: 5,000 units Documented by:
[2019-10-01] MEDS: VITAMIN B COMPLEX TAB PO SCH (20:59)
[2019-10-01] MEDS: CHOLECALCIFEROL 1,000 UNITS TAB PO SCH (20:59)
[2019-10-01] MEDS: ATORVASTATIN 20 MG TAB PO SCH (20:59)
[2019-10-02] MEDS: ACETAMINOPHEN 325 MG TAB PO PRN ×2 (02:46→14:28)
[2019-10-02] MEDS: MICONAZOLE NITRATE POWDER 43 GM EXT PRN (02:46)
[2019-10-02] MEDS: OXYCODONE HCL IR 5 MG TAB (IMMEDIATE RELEASE) PO PRN ×2 (04:05→13:21)
[2019-10-02 05:48] LABS: Hematocrit (blood only) 40.1 % (42-52); Hemoglobin 12.6 g/dL (14.0-18.0); Mean Corpuscular Hemoglobin 28.9 pg (25-34); Mean Corpuscular Hgb Conc 31.4 g/dL (32-36); Platelet Count 207 K/uL (130-400); RDW Coefficient of Variation 15.4 % (11.5-14.5); RDW Standard Deviation 52.4 fL (36.4-46.3); Red Blood Count 4.36 M/uL (4.7-6.1)
[2019-10-02 06:21] LABS: BUN Creatinine Ratio 25.2 (10-20); Calcium 9.3 mg/dl (8.5-10.1); Creatinine Clr Calc Pharmacy 89.1 ml/min; Est GFR (African American) 100.4; Est GFR (Non-African American) 86.6; Magnesium 1.7 mg/dl (1.8-2.4); Potassium 4.2 mmol/L (3.5-5.1)
[2019-10-02] MEDS: CHECK FENTANYL PATCH PLACEMENT SCH ×2 (08:40)
[2019-10-02] MEDS: FUROSEMIDE 20 MG TAB PO SCH (08:40)
[2019-10-02] MEDS: APIXABAN 5 MG TABLET PO SCH (08:41)
[2019-10-02] MEDS: FLUTICASONE/SALMETEROL 250/50 (ADVAIR) 14 PUFF/1 INHALER INH SCH (08:41)
[2019-10-02] MEDS: ASPIRIN 81 MG ECTAB PO SCH (08:41)
[2019-10-02] MEDS: PREGABALIN 25 MG CAP PO SCH ×2 (08:42→13:21)
[2019-10-02] MEDS: DICLOFENAC SOD 1% GEL 100 GM TUBE EXT SCH (08:43)
[2019-10-02] MEDS: POLYETHYLENE (MIRALAX) 17 GM PACK PO SCH (08:43)
[2019-10-02] MEDS: MAGNESIUM OXIDE 400 MG TAB PO SCH (08:43)
[2019-10-02] MEDS: NYSTATIN CR 15 GM TUBE EXT SCH (08:43)
[2019-10-02] MEDS: ENALAPRIL MALEATE 10 MG TAB PO SCH (08:44)
[2019-10-02] MEDS: METOPROLOL SUCC 25MG EXT REL TAB PO SCH (08:44)
[2019-10-02] MEDS: PANTOprazole 40 MG TAB PO SCH (08:45)
[2019-10-02] MEDS: prednisoLONE acetate 1% OP SUSP 5 ML BTL OP SCH ×3 (08:45→12:22)
[2019-10-02] MEDS: ASCORBIC ACID 500 MG TAB PO SCH (08:46)
[2019-10-02] MEDS: INSULIN ASPART 100 UNITS/ML 3 ML PEN SC SCH ×2 (08:53→13:13)
[2019-10-02] MEDS: INSULIN GLARGINE SOLOSTAR 100 UNITS/ML 3 ML PEN SC SCH (08:54)
[2019-10-02] MEDS: MAGNESIUM SULFATE / D5W 1 GM/100 ML BAG IV SCH ×2 (11:13→12:21)
--- NOTE | 2019-10-02 13:04 | Discharge Summary ---
Date of Service October 02, 2019 Admission HPI Per Admitting Provider This is a 74-year-old male with PMH of DM II COPD, chronic pain with opioid dependence, paroxysmal atrial fibrillation on Eliquis, CKD 3, Efdlzlg-Msbim-Jqchd disease, neuropathy, recent rib fractures, rotator cuff arth ropathy of left shoulder, cervical spine stenosis and other medical problems listed below who presents after episode of generalized weakness and ambulatory dysfunction earlier today. Patient is limited in mobility due to chronic arthritis and severe pain but is able to ambulate with motorized chair and pivot support transferring on and off the toilet. Patient has daughter who is a nurse and cares for him frequently, but she is on vacation in [place]. Also has [employer] [facility] present for approximately 8 hours a day. Patient with long-term narcotic use and during July admission, was seen by pain management and fentanyl patch was increased to 37.5 transdermal patch and oxycodone was increased from 10 to 15 mg every 6 hours as needed. Patient states he receives his oxycodone 10 mg tablets and with arthritic deformities in hands, states that he is unable to cut them in half, so he has been taking oxycodone 20 mg Q6H. Remembers getting up during the night and taking a dose of oxy 20mg around 0300. Woke up this morning on his toilet and was unable to get up on his own. Thinks he fell asleep there but is unsure of the exact events or timing. Waited for 2 hours until home health arrived and was able to assist patient. He feels much weaker than usual. Denies taking more pain medications than usual, but cannot remember exact activities last night. Was recently dispensed 180 tabs of 10mg oxycodone on September 05 by PCP, per review of PDMP. New fentanyl patch placed yesterday as well. Patient currently endorsing pain in left shoulder, hips and sacrum. History of sacral cellulitis on Bactrim that daughter reports has healed. Patient not interested in placement but daughter at bedside feels that patient needs more oversight with medication as well as help with ADLs. Denies fever, chills, lightheadedness, visual changes, chest pain, palpitations, shortness of breath, nausea, vomiting, abdominal pain, dysuria, diarrhea or constipation. Admission Exam Per Admitting Provider General Appearance: WD/WN, vitals as above, NAD, sitting up in bed, occasionally grimacing in pain, poorly groomed, appears chronically ill Head: normocephalic, atraumatic Eyes: normal inspection, PERRL, conjunctivae normal, matting of bilateral eyelids but no no scleral injection ENT: external ear and nose normal, oropharynx normal Neck: trachea midline, no thyromegaly normal visual inspection Respiratory: normal respiratory effort, lungs clear to auscultation, no wheeze, rales, rhonchi. Normal insp/exp effort, no accessory muscle use Cardiovascular: regular rate, rhythm, no murmur, normal peripheral pulses. Vessels: no JVD or carotid bruit Chest: normal inspection of chest Abdomen/GI: normal bowel sounds, soft, nontender, no hepatosplenomegaly Extremities/Musculoskelatal: no cyanosis or clubbing, extremities motor strength 5/5 Neurologic: PERRL, EOMI, accommodation nl, no face palsy, no dysarthria, CN's II-XI intact bilaterally and moves all extremities Psychiatric: A+Ox3, euthymic affect Skin: no rashes, normal color, warm/dry. +anterior LLE with chronic skin change. Sacrum erythematous but no open wound. Presence of dried fecal material surrounding backside. Erythematous rash present in groin folds and under abdominal fold. Principal Diagnosis ambulatory dysfunction, narcotic dependence, smoking, weakness-improved, subacute displaced left rib fractures. Discharge Data Allergies Allergy/AdvReac Type Severity Reaction Status Date / Time Penicillins Allergy Intermediate RASH Verified 09/27/19 14:58 Consultations 09/27/19 17:02 ED Decision to Admit Stat 09/27/19 19:59 Consult Case Management - Discharge Planning Routine 09/28/19 08:00 Consult Orthopedic Surgery Routine Consult Pain Management Routine Ordered Studies 09/27/19 13:20 CT head/brain wo con Stat Hospital Course (1) Ambulatory dysfunction: (2) Generalized weakness: (3) CMT (Gexhkyi-Ipadw-Tfcwh disease): (4) Ribs, multiple fractures: (5) Degenerative disc disease: (6) Narcotic dependency, continuous: (7) Diabetes mellitus type 2, uncontrolled: (8) Tobacco use: 74-year-old man with multiple medical problems presented to the ER after an episode of weakness and ambulatory dysfunction. He has been more dependent on motorized wheelchair at the last 6 to 12 months. He is notably on long-term narcotics for severe chronic joint pain in the ER chest x-ray revealed mildly displaced acute or subacute fractures of the posterior left eighth and ninth ribs which were new from August 04, 2019, at time when he was noted to have fallen and had rib fractures in the same area. The new displacement did cause him some discomfort but not severe pain. There was no evidence of pneumothorax or other organ injury beneath this. He has been taking his narcotics differently than he was prescribed and it was thought his episode of weakness may have been related to that, however it was unclear. He also has a history of spinal stenosis and felt that this had become worsened. He already has an outpatient consultation with Dr. Conde coming up, and the patient feels this is contributing to his subjective leg weakness. On physical exam he has full s trength intact throughout. He was admitted to the hospitalist service for further work-up and monitoring. Pain management was consulted and recommended continuation on his fentanyl patch at 37 mcg every 72 hours as well as 15 mg oxycodone for breakthrough and not the 20 mg he is currently taking. Lab work revealed his previously uncontrolled A1c of 10 was improved to 7.5 and he was praised for his efforts. PT and OT were consulted and work with the patient over the next couple of days. He continued to do well and improved from a strength and mentation standpoint. Chantix was discontinued and his medications were reviewed in depth with his daughter who is also a nurse. Multiple medication changes were recommended to her to further discuss with the primary care physician on follow-up. At time of discharge he was hemodynamically stable and afebrile and tolerating p.o. He was oxygenating well on room air. He was mentating and ambulating at baseline and considered safe to return home with current nursing care and family support in place. Total Time Total Time Spent Total Time Spent (In Minutes): 60 Total Time Includes: Examination of the Patient, Discharge Planning, Medication Reconciliation and Communication With Other Providers Discharge Plan Discharge Items Patient Disposition: Home - Home Health Services Reason For Visit: ABULATORY DYSFUNCTION, NARCOTIC DEPENDENCE Discharge Diagnosis: ambulatory dysfunction, narcotic dependence, smoking, weakness-improved, subacute displaced left rib fractures. Condition on Discharge: Good Goals: Quit smoking Activity: Resume your previous activity Non-emergency contact: Primary Care Provider Call non-emergency contact if: you have any medication questions, your symptoms worsen and your pain is not controlled Follow-up/Referrals: Mohan Perry MD [Primary Care Provider] - Diet: Carb Consistent or DM2 and Heart Healthy Addtl Attending Provider Instructions: Please take all medications as instructed on discharge list below. Pending Studies at Discharge: No Stand-Alone Forms: My [facility] [employer], Opioid Pain Management, Smoking Cessation Medications and DC Order Prescriptions: New magnesium oxide 400 mg (241.3 mg magnesium) Tablet 400 mg PO BID 30 Days Qty: 60 RF: 1 cholecalciferol (vitamin D3) 2,000 unit tablet 2,000 units PO DAILY Qty: 30 RF: 1 Continued ascorbic acid (vitamin C) [Vitamin C] 1,000 mg Tablet 1,000 mg PO QAM RF: 0 atorvastatin [Lipitor] 20 mg Tablet 20 mg PO HS RF: 0 omeprazole 40 mg Capsule,Delayed Release(Dr/Ec) 40 mg PO QAM RF: 0 aspirin 81 mg Tablet,Delayed Release (Dr/Ec) 81 mg PO QAM RF: 0 metformin 1,000 mg Tablet 1,000 mg PO BID RF: 0 glimepiride 4 mg Tablet 4 mg PO QAM RF: 0 digoxin [Digox] 125 mcg Tablet 125 mcg PO DAILY@1600 RF: 0 metoprolol succinate 25 mg Tablet Extended Release 24 Hr 12.5 mg PO BID RF: 0 albuterol sulfate [Ventolin HFA] 90 mcg/actuation Hfa Aerosol Inhaler 2 puff INHALATION Q6H PRN (Reason: Shortness Of Breath) RF: 0 finasteride 5 mg Tablet 5 mg PO QDD RF: 0 pregabalin [Lyrica] 25 mg Capsule 25 mg PO TID RF: 0 Eliquis 5 mg Tablet 5 mg PO BID RF: 0 Jardiance 10 mg Tablet 10 mg PO QAM RF: 0 ramipril 5 mg Capsule 5 mg PO BID RF: 0 B-complex with vitamin C [Super B Complex-Vitamin C] Tablet 1 tab PO HS RF: 0 omega 8-odc-cab-fish oil [Fish Oil] 1,000 mg (120 mg-180 mg) Capsule 1 cap PO QDD RF: 0 furosemide 20 mg Tablet 20 mg PO TUTHSA@0800 RF: 0 fluticasone propion-salmeterol [Advair Diskus] 250-50 mcg/dose Blister With Device 1 inh INHALATION BID RF: 0 polyethylene glycol 3350 [Miralax] 17 gram Powder In Packet 17 g PO QAM RF: 0 oxycodone 10 mg tablet 15 mg PO Q6H PRN (Reason: Pain) RF: 0 fentanyl 37.5 mcg/hour Patch 72 Hour 1 patch TRANSDERMAL Q72H RF: 0 prednisolone acetate 1 % Drops,Suspension 1 drp OPHTHALMIC (EYE) QID RF: 0 nystatin 100,000 unit/gram Cream 1 applic TOPICAL BID RF: 0 diclofenac sodium 1 % Gel 2 g TOPICAL BID RF: 0 Discontinued celecoxib [Celebrex] 200 mg Capsule 200 mg PO BID PRN (Reason: Pain) RF: 0 baclofen 10 mg Tablet 10 mg PO HS RF: 0 cholecalciferol (vitamin D3) [Vitamin D3] 5,000 unit Tablet 5,000 unit PO HS RF: 0 Chantix 1 mg Tablet 1 mg PO BID RF: 0 magnesium 250 mg Tablet 500 mg PO HS RF: 0 Discharge Orders: Discharge Order (Routine); Ordered 10/02/19 Ordered By: Stefani Andrew Admission Data Admit Date/Time: 09/27/19 17:51 Attending Provider: Stefani Andrew Admit Provider: Yo Hodges Primary Care Provider: Mohan Perry Other Providers: Yo Hodges ; Jaret Acevedo ; Concepción Pickard Other Interventions: Discharge Summary Assessment (RN) Last Done: 10/02/19 13:39 DC Date/Time DO NOT enter until pt leaves facility: 10/02/19 14:50
--- NOTE | 2019-10-05 09:39 | Coding Query ---
CODING QUERY To promote full compliance with coding requirements relating to patient care, provider participation is requested in all cases of hand shoes sewer uncertainty. Please assist us with the question(s) below: Coding Question(s): Patient admitted with ambulatory dysfunction and weakness. Multiple arthropathy, on Fentanyl and Oxycodone. Patient presecribed 10 mg dose Oxy and because he could not split the pill, had been taking the full 20 mg Oxy pill. Please document , if known or suspected, the etiology of the ambulatory dysfunction and weakness- & reason for admission. Thanks for you help! Monty Lamb [facility] Physician's Response(s): No clear understanding of the cause. Possibly could have been from taking narcotics too close together, but that is from an uncertain patient report. ?2/2 polypharmacy. It is simply not clear, and then he improved. Principal Diagnosis: "that condition established after study, to be chiefly responsible for occasioning the admission of the patient to the hospital for care." Co-Existing Principal Diagnosis: "when two or more diagnoses equally meet the criteria for principal diagnosis as determined by the circumstances of admission, diagnostic work up, and/or therapy provided, and the Alphabetic Index, Tabular List, or another coding guideline does not provide sequencing direction, any one of the diagnoses may be sequenced first." "When the physician has documented what appears to be a current diagnosis in the body of the record, but has not included the diagnosis in the final diagnostic statement, the physician should be asked whether the diagnosis should be added." (Source Coding [facility] 2 QTR90. p3-4) PRABHAKAR
== END 2019-10-02 14:50 | disposition home health service (06) | DRG 92 ==
LOC: 2W 12:54 → ED 12:54 → SUATTDRO 17:51 → 2W 19:04 → 3E 09-29 07:26

== ENCOUNTER 2019-10-29 19:25 | Inpatient (IN) ==
--- NOTE | 2019-10-29 20:23 | Emergency Department Note ---
Entered by Vincent Adams acting as a scribe for [place] DO History of Present Illness General Chief complaint: Hypotension Stated complaint: BLOOD PRESSURE LOW Time Seen by Provider: 10/29/19 19:46 Source: patient and family (daughter) Limitations: no limitations History of Present Illness Onset (ago): hour(s) (earlier today) Location: head Pain Consistency: + constant Maximum Pain Intensity: 7 Quality: + constant Associated symptoms: + denies other symptoms (neck pain, back pain, abdominal pain, hip pain, leg pain, increased swelling, ) and + other (trouble urinating) Treatments prior to arrival: other (oxycodone) The patient is a 74 year old male who presents to the Emergency Room with complaints of constant hypotension starting earlier today. The patient's mario r states the patient fell this morning while he was trying to put on his shorts. The patient states he lost his balance and fell at 0700. He notes he hit his head. The daughter states the patient felt okay after the fall. She states the patient went to his doctors appointment and then came home. She states the patient took 2 oxycodone when he got home. She notes the patient was really tired when he got home. She states the patient noted his hands were shaking. She states she took the patient's BP and it was between 80 and 90 systolic. She states the patient's pupils were dilated. She states she took the patient's fentanyl patch out. The patient states he has been having somre trouble urinati ng for the past few days. The patient denies being in any pain, having neck pain, headaches, hip pain, neck pain, back pain, leg pain, abdominal pain, and increased swelling. She states the patient's BP is normally around 120 to 140 systolic. She states the patient takes Eliquis. The patient denies hitting his abdomen or chest. The patient states he took 4 oxycodone total today and states that is normal for him. Home Medications Home Medications Medication Instructions Recorded Confirmed Type Eliquis 5 mg PO BID 01/06/19 10/10/19 History Jardiance 10 mg PO QAM 01/06/19 10/10/19 History albuterol sulfate [Ventolin HFA] 2 puff INHALATION Q6H PRN 01/06/19 10/10/19 History ascorbic acid (vitamin C) [Vitamin 1,000 mg PO QAM 01/06/19 10/10/19 History C] aspirin 81 mg PO QAM 01/06/19 10/10/19 History digoxin [Digox] 125 mcg PO DAILY@1600 01/06/19 10/10/19 History finasteride 5 mg PO QDD 01/06/19 10/10/19 History glimepiride 4 mg PO QAM 01/06/19 10/10/19 History metformin 1,000 mg PO BID 01/06/19 10/10/19 History metoprolol succinate 12.5 mg PO BID 01/06/19 10/10/19 History omeprazole 40 mg PO QAM 01/06/19 10/10/19 History pregabalin [Lyrica] 25 mg PO TID 01/06/19 10/10/19 History B-complex with vitamin C [Super B 1 tab PO HS 07/19/19 10/10/19 History Complex-Vitamin C] fluticasone propion-salmeterol 1 inh INHALATION BID 07/19/19 10/10/19 History [Advair Diskus] furosemide 20 mg PO TUTHSA@0800 07/19/19 10/10/19 History omega 2-dhd-uws-fish oil [Fish Oil] 1 cap PO QDD 07/19/19 10/10/19 History ramipril 5 mg PO BID 07/19/19 10/10/19 History diclofenac sodium 2 g TOPICAL BID 09/27/19 10/10/19 History fentanyl 1 patch TRANSDERMAL Q72H 09/27/19 10/10/19 History nystatin 1 applic TOPICAL BID 09/27/19 10/10/19 History oxycodone 15 mg PO Q6H PRN 09/27/19 10/10/19 History polyethylene glycol 3350 [Miralax] 17 g PO QAM 09/27/19 10/10/19 History prednisolone acetate 1 drp OPHTHALMIC (EYE) QID 09/27/19 10/10/19 History cholecalciferol (vitamin D3) 2,000 units PO DAILY #30 tab 10/02/19 10/10/19 Rx magnesium oxide 400 mg PO BID 30 Days #60 tab 10/02/19 10/10/19 Rx acetaminophen [Tylenol Extra 1,000 mg PO Q6H PRN 10/10/19 10/10/19 History Strength] multivitamin 1 tab PO DAILY 10/10/19 10/10/19 History Allergies Allergy/AdvReac Type Severity Reaction Status Date / Time Penicillins Allergy Intermediate RASH Verified 10/10/19 15:19 Past Med/Surg History Medical History 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) Acquired hallux valgus of right foot (Chronic) Choledocholithiasis CMT (Sexuavv-Zjsot-Knzba disease) (Chronic) COPD (chronic obstructive pulmonary disease) (Chronic) Degenerative disc disease Diabetes mellitus with diabetic polyneuropathy (Chronic) Diabetic peripheral neuropathy associated with type 2 diabetes mellitus (Chronic) Gastroesophageal reflux disease (Acute) Hallux valgus (acquired), left foot (Chronic) Hyperlipidemia (Chronic) Hypertensive heart disease (Acute) Left foot drop (Chronic) Multiple closed fractures of ribs of left side (Acute) Right foot drop (Chronic) Spinal stenosis, lumbar region with neurogenic claudication (Chronic) Tobacco user (Acute 09/27/11) Surgical History Hx of tonsillectomy (Chronic) S/P cataract extraction (Resolved) S/P cervical spinal fusion (Chronic) S/P foot surgery, right (Resolved) Status post cholecystectomy (Chronic) Family History Other COPD (chronic obstructive pulmonary disease) Coronary heart disease Social History Preferred Language: [place] Communication Ability: Effective Visual Impairment: Limited Hearing Ability: Hard of Hearing Spool Sander Required: No Beliefs That Will Affect Care: None marital status: Current Living Situation: Alone current occupational status: retired Feels Safe at Home: Yes Smoking Status: Current every day smoker packs per day: 0.5 ; Hx Alcohol Use: No Hx Substance Use: No Review of Systems See HPI for pertinent positives & negatives. and A total of 10 systems reviewed and were otherwise negative Physical Exam Vital Signs Vital Signs - 24 hr 10/29/19 19:28 10/29/19 20:34 10/29/19 22:04 Temperature 36.3 C L Temperature Source Oral Pulse Rate 71 Pulse Rate [Right Finger] 84 71 Pulse Rhythm [Right Finger] Regular Pulse Strength [Right Finger] Normal Respiratory Rate 20 20 18 Respiratory Effort / Characteristics Non-Labored Spontaneous Non-Labored Spontaneous Respiratory Depth Normal Normal Respiratory Pattern Regular Regular Blood Pressure 111/62 Blood Pressure [Right Arm] 96/54 L 94/57 L Blood Pressure Mean 78 Blood Pressure Mean [Right Arm] 68 69 Blood Pressure Position [Right Arm] Lying Pulse Oximetry 97 96 92 Oxygen Delivery Method Room Air Room Air Room Air Sepsis Recent Fever Within 48 Hours No Sepsis New/Unexplained Change in Mental Status No Sepsis Action Taken by Nursing No Action Required GENERAL: The patient is awake and alert. He is not anxious appearing. EYES: The conjunctivae are clear. The pupils are constricted and minimally reactive bilaterally. EARS, NOSE, MOUTH AND THROAT: The nose is without any evidence of any deformity. Mucous membranes are moist. Tongue is midline. NECK: The neck is nontender and supple. RESPIRATORY: Normal respiratory effort was noted. There were no retractions or conversational dyspnea. Diminished breath sounds are noted at both bases. There were faint rales at both bases. CARDIOVASCULAR: Irregular rhythm was noted to auscultation. No definite murmur was noted. GASTROINTESTINAL: The abdomen is soft. Abdomen is nontender. BACK: No midline tenderness or or step-off noted range of motion in flexion extension as well as rotation no signs of muscle spasm noted MUSCULOSKELETAL/EXTREMITIES: There is no evidence of gross deformity full range of motion is noted in the hips and shoulders. SKIN: Pedal edema was noted bilaterally. NEUROLOGIC: Patient is awake alert and oriented x3. Strength was symmetric. There is no facial droop. Patient is able to extend both legs. Course Course 1951: The patient was evaluated in room C4, and a complete history and physical examination were performed. 2140: I discussed the patient's case with Dr. Aurelio Chinchilla Hospitalist. He will evaluate the patient for further management. Administered Medications Discontinued Medications Sodium Chloride (Nss 1000ml) 1,000 mls @ 999 mls/hr IV .Q1H1M ONE Stop: 10/29/19 22:32 Last Admin: 10/29/19 22:03 Dose: 999 mls/hr Documented by: [id number] Medical Decision Making Differential Diagnosis Differential Diagnosis includes but is not limited to dehydration, stroke, anemia, hypoglycemia, hyponatremia, hypernatremia, urinary tract infection, pneumonia, bronchitis, sepsis, gastroenteritis, additional abdominal pathology, metabolic abnormalities and infections. Medical Records Attestation: I reviewed the patient's medical records. Home Medications Current Medication List: was personally reviewed by me Laboratory Data Attestation: I reviewed the patient's lab results. Result diagrams: 10/29/19 20:28 10/29/19 20:28 Lab Results 10/29/19 10/29/19 10/29/19 Range/Units 20:28 20:28 20:28 WBC 9.17 (4.8-10.8) K/uL RBC 5.07 (4.7-6.1) M/uL Hgb 14.5 (14.0-18.0) g/dL Hct 43.3 (42-52) % MCV 85.4 (80-100) fL MCH 28.6 (25-34) pg MCHC 33.5 (32-36) g/dL RDW Std Deviation 49.5 H (36.4-46.3) fL RDW Coeff of Naomi 15.8 H (11.5-14.5) % Plt Count 236 (130-400) K/uL MPV 11.7 H (7.4-10.4) fL Immature Gran % (Auto) 0.5 % Neut % (Auto) 59.8 % Lymph % (Auto) 27.3 % [place] % (Auto) 8.6 % Eos % (Auto) 3.1 % Baso % (Auto) 0.7 % Immature Gran # (Auto) 0.05 H (0.00-0.02) K/uL Neut # (Auto) 5.49 (1.4-6.5) K/uL Lymph # (Auto) 2.50 (1.2-3.4) K/uL [place] # (Auto) 0.79 H (0.11-0.59) K/uL Eos # (Auto) 0.28 (0-0.5) K/uL Baso # (Auto) 0.06 (0-0.2) K/uL PT 10.6 (9.0-12.0) Seconds INR 1.0 (0.9-1.1) APTT 33.3 H (21.0-31.0) Seconds PTT Ratio 1.2 Sodium 130 L (136-145) mmol/L Potassium 5.3 H (3.5-5.1) mmol/L Chloride 95 L (98-107) mmol/L Carbon Dioxide 26 (21-32) mmol/L Anion Gap 9.0 (3-11) BUN 90 H (7-18) mg/dl Creatinine 2.18 H (0.6-1.4) mg/dl Est Cr Clr Drug Dosing Not Reportable Est GFR ( Amer) 33.8 Est GFR (Non-Af Amer) 29.2 BUN/Creatinine Ratio 41.4 H (10-20) Glucose 166 H (70-99) mg/dl Calcium 9.4 (8.5-10.1) mg/dl Magnesium 2.1 (1.8-2.4) mg/dl Total Bilirubin 0.3 (0.2-1) mg/dl AST 24 (15-37) U/L ALT 40 (12-78) U/L Alkaline Phosphatase 142 H (45-117) U/L Total Creatine Kinase 134 (39-308) U/L Troponin I < 0.015 (0-0.045) ng/ml Total Protein 7.8 (6.4-8.2) gm/dl Albumin 3.4 (3.4-5.0) gm/dl Globulin 4.4 H (2.5-4.0) gm/dl Albumin/Globulin Ratio 0.8 L (0.9-2) TSH 3.360 (0.300-4.500) uIu/ml Urine Color Urine Appearance (Clear) Urine pH (4.5-7.5) Ur Specific [place] (1.000-1.030) Urine Protein (Negative) Urine Glucose (UA) (Negative) Urine Ketones (Negative) Urine Blood (Negative) Urine Nitrite (Negative) Urine Bilirubin (Negative) Urine Urobilinogen (Negative) Ur Leukocyte Esterase (Negative) 10/29/19 Range/Units 20:35 WBC (4.8-10.8) K/uL RBC (4.7-6.1) M/uL Hgb (14.0-18.0) g/dL Hct (42-52) % MCV (80-100) fL MCH (25-34) pg MCHC (32-36) g/dL RDW Std Deviation (36.4-46.3) fL RDW Coeff of Naomi (11.5-14.5) % Plt Count (130-400) K/uL MPV (7.4-10.4) fL Immature Gran % (Auto) % Neut % (Auto) % Lymph % (Auto) % [place] % (Auto) % Eos % (Auto) % Baso % (Auto) % Immature Gran # (Auto) (0.00-0.02) K/uL Neut # (Auto) (1.4-6.5) K/uL Lymph # (Auto) (1.2-3.4) K/uL [place] # (Auto) (0.11-0.59) K/uL Eos # (Auto) (0-0.5) K/uL Baso # (Auto) (0-0.2) K/uL PT (9.0-12.0) Seconds INR (0.9-1.1) APTT (21.0-31.0) Seconds PTT Ratio Sodium (136-145) mmol/L Potassium (3.5-5.1) mmol/L Chloride (98-107) mmol/L Carbon Dioxide (21-32) mmol/L Anion Gap (3-11) BUN (7-18) mg/dl Creatinine (0.6-1.4) mg/dl Est Cr Clr Drug Dosing Est GFR ( Amer) Est GFR (Non-Af Amer) BUN/Creatinine Ratio (10-20) Glucose (70-99) mg/dl Calcium (8.5-10.1) mg/dl Magnesium (1.8-2.4) mg/dl Total Bilirubin (0.2-1) mg/dl AST (15-37) U/L ALT (12-78) U/L Alkaline Phosphatase (45-117) U/L Total Creatine Kinase (39-308) U/L Troponin I (0-0.045) ng/ml Total Protein (6.4-8.2) gm/dl Albumin (3.4-5.0) gm/dl Globulin (2.5-4.0) gm/dl Albumin/Globulin Ratio (0.9-2) TSH (0.300-4.500) uIu/ml Urine Color Yellow Urine Appearance Clear (Clear) Urine pH 5.0 (4.5-7.5) Ur Specific [place] 1.014 (1.000-1.030) Urine Protein Negative (Negative) Urine Glucose (UA) 2+ H (Negative) Urine Ketones Negative (Negative) Urine Blood Negative (Negative) Urine Nitrite Negative (Negative) Urine Bilirubin Negative (Negative) Urine Urobilinogen Negative (Negative) Ur Leukocyte Esterase Negative (Negative) Imaging Data Radiologist's Impression: Radiology results as stated below per my review and the radiologist's interpretation: ABDOMEN AND PELVIS CT WITHOUT CONTRAST CT DOSE: 3337.93 mGy.cm HISTORY: weak, dysuria TECHNIQUE: Multiaxial CT images of the abdomen and pelvis were performed without contrast. A dose lowering technique was utilized adhering to the principles of ALARA. COMPARISON STUDY: Abdomen and pelvis CT 07/29/2019. FINDINGS: Stable 1.5 cm nodule within the base of the right lower lobe containing fat. Therefore, this likely represents a hamartoma. Right posterior calcified plaque is again noted. A few bibasilar linear densities consistent with subsegmental atelectasis. No pneumoperitoneum. No pneumatosis. Multiple healing left-sided rib fractures. There are also old, healed right-sided rib fractures. No acute rib fractures identified. The bladder is mildly distended. No bladder wall thickening. The prostate gland is normal in size. Advanced degenerative changes within the lumbar spine. The unenhanced spleen, adrenal glands, and pancreas are unremarkable. Prior cholecystectomy. Hepatic steatosis. Mild bilateral perinephric edema which is likely chronic. No hydronephrosis. There is a punctate stone within the lower pole of the right kidney. No ureteral stones. Normal caliber abdominal aorta. No retroperitoneal lymphadenopathy. Chronic atrophy of the left iliopsoas muscle. This remains unchanged. Suboptimal evaluation for bowel pathology due to the lack of intravenous and oral contrast. However, there is no definite bowel wall thickening or obstruction. Normal appendix. Moderate stool within the colon. IMPRESSION: 1. Right-sided nephrolithiasis. No ureteral stones. No hydronephrosis. 2. The bladder is mildly distended. No bladder wall thickening. 3. No definite bowel wall thickening or obstruction. 4. Cholecystectomy. 5. Hepatic steatosis. 6. Stable 1.5 cm nodule within the base of the right lower lobe consistent with a hamartoma. ACT 112: Negative or not required by law. Electronically signed by: Mina Buchanan M.D. 10/29/2019 9:[address] DOSE: HISTORY: fall TECHNIQUE: Multiaxial CT images of the cervical spine were performed and reformatted in the sagittal and coronal plane without the use of contrast. A dose lowering technique was utilized adhering to the principles of ALARA. COMPARISON: Cervical spine CT 07/29/2019. FINDINGS: No fractures. No subluxation. Prevertebral soft tissues and the C1-C2 interval are intact. No pneumothorax. Anterior and posterior cervical spinal fusion from C3 through C5. The hardware appears intact. Straightening of the cervical spine. IMPRESSION: No fractures within the cervical spine. ACT 112: Negative or not required by law. Electronically signed by: Mina Buchanan M.D. 10/29/2019 9:21 PM XR chest 1V portable HISTORY: Fall. weakness COMPARISON: Chest 10/10/2019. FINDINGS: There are low lung volumes. Mild interstitial thickening which is likely chronic. This is similar to the prior study. A few bibasilar linear densities favor subsegmental atelectasis or scarring. No new focal lung consolidations to suggest pneumonia. No evidence for pulmonary edema. No pleural effusions. No pneumothorax. The heart is normal in size. Old, healed left-sided rib fractures. IMPRESSION: Chronic changes as described above. No acute process within the chest. ACT 112: Negative or not required by law. Electronically signed by: Mina Buchanan M.D. 10/29/2019 8:[address]AST CT DOSE: HISTORY: Fall. weak TECHNIQUE: Multiaxial CT images of the head were performed without the use of intravenous contrast. Automated exposure control was utilized for this study. A dose lowering technique was utilized adhering to the principles of ALARA. Comparison: Head CT 09/27/2019. Findings: Chronic opacification of the right frontal sinus and mild mucosal thickening within the anterior ethmoid air cells. There is a 2 cm polypoid focus within the right maxillary sinus. This remains unchanged. The mastoid air cells are clear. The calvarium and skull base are intact. There is no mass, hematoma, midline shift, acute infarct. White matter hypodensity is nonspecific but suggestive of microvascular ischemic change. The ventricles and sulci demonstrate mild age-related involutional changes. Impression: No significant change compared to the prior study. No acute intracranial abnormality. ACT 112: Negative or not required by law. Electronically signed by: Mina Buchanan M.D. 10/29/2019 9:16 PM ECG Data Attestation: I personally reviewed and interpreted this ECG as follows: Indication: + weakness Rate (beats per minute): 75 Rhythm: + atrial flutter ECG ST segments: no ST depression and no ST elevation ECG Findings: + Poor R wave progression and + Other (low voltage throughout); no PVCs Comparison ECG Date: from (10/10/19) Change: no significant change Blood Pressure Blood Pressure Findings: Normal blood pressure Blood Pressure Disposition: did not require urgent referral MDM Narrative The patient is a 74-year-old male who presented to the emergency department for an evaluation of low blood pressure. The patient arrives at the emergency department with his daughter who is a nurse. She states that she was concerned that the patient may have taken too much of his pain medication because of his pupillary exam as well as his low blood pressure. The patient had no specific c omplaints. He did not have any abdominal tenderness on physical exam. The patient was treated with IV fluids in the emergency department. I discussed the patient's laboratory and radiographic studies with him. At this time he was found to have an elevated creatinine as well as an elevated potassium. It is possible the patient may be having signs of renal insufficiency. He does have a cardiac history so he was only given 1 fluid bolus in the emergency department. I discussed the patient's case with the on-call [facility] hospitalist group. They have agreed to evaluate the patient in the emergency department for further management and disposition. Impression & Plan Renal failure, Hypotension, Dehydration Discharge Plan Visit Data Chief Complaint: Hypotension Stated Complaint: BLOOD PRESSURE LOW ED Provider: [place] Discharge Problem: Renal failure, Hypotension, Dehydration Patient Disposition: Being Evaluated by Hospitalist Forms Stand Alone Forms: My [facility] [employer] Prescriptions Prescriptions: No Action ascorbic acid (vitamin C) [Vitamin C] 1,000 mg Tablet 1,000 mg PO QAM RF: 0 omeprazole 40 mg Capsule,Delayed Release(Dr/Ec) 40 mg PO QAM RF: 0 aspirin 81 mg Tablet,Delayed Release (Dr/Ec) 81 mg PO QAM RF: 0 metformin 1,000 mg Tablet 1,000 mg PO BID RF: 0 glimepiride 4 mg Tablet 4 mg PO QAM RF: 0 digoxin [Digox] 125 mcg Tablet 125 mcg PO DAILY@1600 RF: 0 metoprolol succinate 25 mg Tablet Extended Release 24 Hr 12.5 mg PO BID RF: 0 albuterol sulfate [Ventolin HFA] 90 mcg/actuation Hfa Aerosol Inhaler 2 puff INHALATION Q6H PRN (Reason: Shortness Of Breath) RF: 0 finasteride 5 mg Tablet 5 mg PO QDD RF: 0 pregabalin [Lyrica] 25 mg Capsule 25 mg PO TID RF: 0 Eliquis 5 mg Tablet 5 mg PO BID RF: 0 Jardiance 10 mg Tablet 10 mg PO QAM RF: 0 ramipril 5 mg Capsule 5 mg PO BID RF: 0 B-complex with vitamin C [Super B Complex-Vitamin C] Tablet 1 tab PO HS RF: 0 omega 8-yzu-uwe-fish oil [Fish Oil] 1,000 mg (120 mg-180 mg) Capsule 1 cap PO QDD RF: 0 furosemide 20 mg Tablet 20 mg PO TUTHSA@0800 RF: 0 fluticasone propion-salmeterol [Advair Diskus] 250-50 mcg/dose Blister With Device 1 inh INHALATION BID RF: 0 polyethylene glycol 3350 [Miralax] 17 gram Powder In Packet 17 g PO QAM RF: 0 oxycodone 10 mg tablet 15 mg PO Q6H PRN (Reason: Pain) RF: 0 fentanyl 37.5 mcg/hour Patch 72 Hour 1 patch TRANSDERMAL Q72H RF: 0 prednisolone acetate 1 % Drops,Suspension 1 drp OPHTHALMIC (EYE) QID RF: 0 nystatin 100,000 unit/gram Cream 1 applic TOPICAL BID RF: 0 diclofenac sodium 1 % Gel 2 g TOPICAL BID RF: 0 magnesium oxide 400 mg (241.3 mg magnesium) Tablet 400 mg PO BID 30 Days Qty: 60 RF: 1 cholecalciferol (vitamin D3) 2,000 unit tablet 2,000 units PO DAILY Qty: 30 RF: 1 multivitamin Tablet 1 tab PO DAILY RF: 0 acetaminophen [Tylenol Extra Strength] 500 mg Tablet 1,000 mg PO Q6H PRN (Reason: Pain) RF: 0 Referrals Referrals: Mohan Perry MD [Primary Care Provider] - Discharge Problem: Renal failure Qualifiers: Renal failure chronicity: unspecified chronicity Qualified Code(s): N19 - Unspecified kidney failure Hypotension Qualifiers: Hypotension type: unspecified hypotension type Qualified Code(s): I95.9 - Hypotension, unspecified The scribe's documentation has been prepared under my direction and personally reviewed by me in its entirety. I confirm that the note above accurately reflects all work, treatment, procedures, and medical decision making performed by me.
--- NOTE | 2019-10-29 20:46 | XRay Report ---
XR chest 1V portable HISTORY: Fall. weakness COMPARISON: Chest 10/10/2019. FINDINGS: There are low lung volumes. Mild interstitial thickening which is likely chronic. This is s imilar to the prior study. A few bibasilar linear densities favor subsegmental atelectasis or scarrin g. No new focal lung consolidations to suggest pneumonia. No evidence for pulmonary edema. No pleural effusions. No pneumothorax. The heart is normal in size. Old, healed left-sided rib fractures. IMPRESSION: Chronic changes as described above. No acute process within the chest. ACT 112: Negative or not required by law. Electronically signed by: Mina Buchanan M.D. 10/29/2019 8:45 PM
[2019-10-29 20:57] LABS: Basophils # (auto) 0.06 K/uL (0-0.2); Basophils % (auto) 0.7 %; Eosinophils # (auto) 0.28 K/uL (0-0.5); Eosinophils % (auto) 3.1 %; Hematocrit (blood only) 43.3 % (42-52); Hemoglobin 14.5 g/dL (14.0-18.0); Immature Granulocytes # (auto) 0.05 K/uL (0.00-0.02); Immature Granulocytes % (auto) 0.5 %; Lymphocytes % (auto) 27.3 %; Mean Corpuscular Hemoglobin 28.6 pg (25-34); Mean Corpuscular Hgb Conc 33.5 g/dL (32-36); Mean Corpuscular Volume 85.4 fL (80-100); Mean Platelet Volume 11.7 fL (7.4-10.4); Monocytes # (auto) 0.79 K/uL (0.11-0.59); Monocytes % (auto) 8.6 %; Neutrophils # (auto) 5.49 K/uL (1.4-6.5); Neutrophils % (auto) 59.8 %; Platelet Count 236 K/uL (130-400); RDW Coefficient of Variation 15.8 % (11.5-14.5); RDW Standard Deviation 49.5 fL (36.4-46.3); Red Blood Count 5.07 M/uL (4.7-6.1); White Blood Count 9.17 K/uL (4.8-10.8)
[2019-10-29 20:57] LABS: Appearance Urine Clear (Clear); Bilirubin Urine Negative (Negative); Blood Urine Negative (Negative); Color Urine Yellow; Glucose Urine UA 2+ (Negative); Ketones Urine Negative (Negative); Leukocyte Esterase Urine Negative (Negative); Nitrite Urine Negative (Negative); Protein Urine Negative (Negative); Specific Gravity Urine 1.014 (1.000-1.030); Urobilinogen Urine Negative (Negative)
[2019-10-29 21:01] LABS: Alanine Aminotransferase 40 U/L (12-78); Albumin Level 3.4 gm/dl (3.4-5.0); Aspartate Aminotransferase 24 U/L (15-37); BUN Creatinine Ratio 41.4 (10-20); Blood Urea Nitrogen 90 mg/dl (7-18); Calcium 9.4 mg/dl (8.5-10.1); Carbon Dioxide 26 mmol/L (21-32); Chloride 95 mmol/L (98-107); Est GFR (African American) 33.8; Est GFR (Non-African American) 29.2; Glucose 166 mg/dl (70-99); Magnesium 2.1 mg/dl (1.8-2.4); Potassium 5.3 mmol/L (3.5-5.1); Sodium 130 mmol/L (136-145)
[2019-10-29 21:03] LABS: Partial Thromboplastin Ratio 1.2; Partial Thromboplastin Time 33.3 Seconds (21.0-31.0); Prothrombin Time 10.6 Seconds (9.0-12.0)
[2019-10-29 21:12] LABS: Albumin Globulin Ratio 0.8 (0.9-2); Alkaline Phosphatase 142 U/L (45-117); Bilirubin,Total 0.3 mg/dl (0.2-1); Creatine Kinase 134 U/L (39-308); Globulin 4.4 gm/dl (2.5-4.0); Total Protein 7.8 gm/dl (6.4-8.2); Troponin I < 0.015 ng/ml (0-0.045)
--- NOTE | 2019-10-29 21:12 | CT Scan Report ---
ABDOMEN AND PELVIS CT WITHOUT CONTRAST CT DOSE: 3337.93 mGy.cm HISTORY: weak, dysuria TECHNIQUE: Multiaxial CT images of the abdomen and pelvis were performed without contrast. A dose lo wering technique was utilized adhering to the principles of ALARA. COMPARISON STUDY: Abdomen and pelvis CT 07/29/2019. FINDINGS: Stable 1.5 cm nodule within the base of the right lower lobe containing fat. Therefore, thi s likely represents a hamartoma. Right posterior calcified plaque is again noted. A few bibasilar tiffani ear densities consistent with subsegmental atelectasis. No pneumoperitoneum. No pneumatosis. Multiple healing left-sided rib fractures. There are also old, healed right-sided rib fractures. No acute rib fractures identified. The bladder is mildly distended. No bladder wall thickening. The prostate glan d is normal in size. Advanced degenerative changes within the lumbar spine. The unenhanced spleen, ad renal glands, and pancreas are unremarkable. Prior cholecystectomy. Hepatic steatosis. Mild bilateral perinephric edema which is likely chronic. No hydronephrosis. There is a punctate stone within the l ower pole of the right kidney. No ureteral stones. Normal caliber abdominal aorta. No retroperitoneal lymphadenopathy. Chronic atrophy of the left iliopsoas muscle. This remains unchanged. Suboptimal ev aluation for bowel pathology due to the lack of intravenous and oral contrast. However, there is no d efinite bowel wall thickening or obstruction. Normal appendix. Moderate stool within the colon. IMPRESSION: 1. Right-sided nephrolithiasis. No ureteral stones. No hydronephrosis. 2. The bladder is mildly distended. No bladder wall thickening. 3. No definite bowel wall thickening or obstruction. 4. Cholecystectomy. 5. Hepatic steatosis. 6. Stable 1.5 cm nodule within the base of the right lower lobe consistent with a hamartoma. ACT 112: Negative or not required by law. Electronically signed by: Mina Buchanan M.D. 10/29/2019 9:10 PM
--- NOTE | 2019-10-29 21:18 | CT Scan Report ---
HEAD CT NONCONTRAST CT DOSE: HISTORY: Fall. weak TECHNIQUE: Multiaxial CT images of the head were performed without the use of intravenous contrast. A utomated exposure control was utilized for this study. A dose lowering technique was utilized adheri ng to the principles of ALARA. Comparison: Head CT 09/27/2019. Findings: Chronic opacification of the right frontal sinus and mild mucosal thickening within the ant erior ethmoid air cells. There is a 2 cm polypoid focus within the right maxillary sinus. This remain s unchanged. The mastoid air cells are clear. The calvarium and skull base are intact. There is no ma ss, hematoma, midline shift, acute infarct. White matter hypodensity is nonspecific but suggestive of microvascular ischemic change. The ventricles and sulci demonstrate mild age-related involutional ch anges. Impression: No significant change compared to the prior study. No acute intracranial abnormality. ACT 112: Negative or not required by law. Electronically signed by: Mina Buchanan M.D. 10/29/2019 9:16 PM
--- NOTE | 2019-10-29 21:22 | CT Scan Report ---
CERVICAL SPINE CT CT DOSE: HISTORY: fall TECHNIQUE: Multiaxial CT images of the cervical spine were performed and reformatted in the sagittal and coronal plane without the use of contrast. A dose lowering technique was utilized adhering to th e principles of ALARA. COMPARISON: Cervical spine CT 07/29/2019. FINDINGS: No fractures. No subluxation. Prevertebral soft tissues and the C1-C2 interval are intact. No pneumothorax. Anterior and posterior cervical spinal fusion from C3 through C5. The hardware appea rs intact. Straightening of the cervical spine. IMPRESSION: No fractures within the cervical spine. ACT 112: Negative or not required by law. Electronically signed by: Mina Buchanan M.D. 10/29/2019 9:21 PM
[2019-10-29] MEDS ORDERED: SODIUM CHLORIDE 0.9% 1000ML 1,000 ML IV ONE (21:32)
[2019-10-29] MEDS ORDERED: SODIUM CHLORIDE 0.9% 1000ML 1,000 ML IV SCH (22:15)
[2019-10-29 23:02] LABS: BUN Creatinine Ratio 42.5 (10-20); Blood Urea Nitrogen 88 mg/dl (7-18); Calcium 9.3 mg/dl (8.5-10.1); Carbon Dioxide 26 mmol/L (21-32); Chloride 97 mmol/L (98-107); Est GFR (Non-African American) 31.1; Glucose 141 mg/dl (70-99); Potassium 5.4 mmol/L (3.5-5.1); Sodium 131 mmol/L (136-145)
[2019-10-29] MEDS ORDERED: INSULIN HUMAN REGULAR PER UNIT 10 UNITS in SYRINGE 9.9 ML IV STA (23:42)
[2019-10-29] MEDS ORDERED: DEXTROSE 50% 50 ML SYRINGE IV STA (23:42)
--- NOTE | 2019-10-30 | History & Physical Report ---
Date of Service October 30, 2019 Assessment & Plan (1) Encephalopathy: Hypovolemia, ARF on CRI, recent outpatient diuretic change/antibiotic Rx for leg/toe infection Opiate toxicity, chronic pain on narcotics Improved mentation after initial IV hydration at the ER Hyperkalemia secondary to decreased renal function and home medications AF/AFL, rate controlled on Eliquis LE cellulitis, right great toe infection, improved on outpatient antibiotic regimen, no sepsis COPD as per records, pulmonary status at baseline PVD as per records DM2 on oral meds, well-controlled as of recent hemoglobin A1c of 7.26 September 2019 Bnazrhd-Jcdfx-Pjhaa neuropathy, Functional disability - possibility of patient transitioning to assisted living facility as per daughter past tobacco use Medical telemetry IVF Hold diuretics, FLORA inhibitor, Bactrim, for now Hold fentanyl patch until patient mentation at baseline Regular insulin for hyperkalemia Doxycycline for LE cellulitis, right great toe infection (safer renal side effect profile ) Basal insulin, ISS BG goal 265015, carb count coverage PT OT eval DVT prophylaxis Eliquis dosed for renal function Full code Patient daughter requesting updates from providers. Miss Shantell Cherry, contact #[phone]. History of Present Illness Episodic twitching as per daughter. Primary Care Provider: Mohan Perry MD History obtained from patient, daughter, and records. Medical history significant for AFib/atrial flutter on Eliquis, hypertension, COPD as per records, PVD as per records, DM2 on oral meds, Dauhwqg-Trjaz-Eiuzg neuropathy, chronic pain on narcotics, history of bilateral lower extremity venous ulcers, past tobacco use. Recent confinement last month for ambulatory dysfunction. Patient seen at PCPs office last week for right great toe infection. No fever, no chills. Patient told PCP that legs were more swollen than usual and he could not catch his breath particularly at night. Sores noted on both lower legs as per notes. Patient prescribed torsemide daily in place of home Lasix. Keflex and Bactrim prescriptions given for leg/right great toe infections. Improved swelling, infection with compliance as per patient/daughter. Yesterday morning, patient lost his balance leading to a fall at his home while trying to put on his shorts. Some head trauma without LOC. Patient daughter (retired nurse help desk specialist) checked on patient at his home. Patient was later noted to be sleepier than usual. SBP noted to be 80 to 90s. Pupils were pinpoint as per daughter. Patient daughter took off patient's fentanyl patch. Episodic twitching as per daughter. Patient brought to the ER for evaluation. MEDICAL HISTORY: As above. SURGERIES: He has had tonsillectomy, neck surgery, cholecystectomy, nasal reconstruction, toe surgery, cataract surgery FAMILY HISTORY: There is a family history of heart disease, COPD, Htepkay-Ipggb-Gtoxu disease. PERSONAL AND SOCIAL HISTORY: Past smoker. Occasional EtOH intake. 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 Allergies Allergy/AdvReac Type Severity Reaction Status Date / Time Penicillins Allergy Intermediate RASH Verified 10/10/19 15:19 sulfamethoxazole AdvReac Mild arf, Verified 10/30/19 00:01 [From Bactrim] hyperkalemia trimethoprim [From Bactrim] AdvReac Mild arf, Verified 10/30/19 00:01 hyperkalemia Home Medications Home Medications Medication Instructions Recorded Confirmed Type Eliquis 5 mg PO BID 01/06/19 10/29/19 History Jardiance 10 mg PO QAM 01/06/19 10/29/19 History albuterol sulfate [Ventolin HFA] 2 puff INHALATION Q6H PRN 01/06/19 10/29/19 History ascorbic acid (vitamin C) [Vitamin 1,000 mg PO QAM 01/06/19 10/29/19 History C] aspirin 81 mg PO QAM 01/06/19 10/29/19 History digoxin [Digox] 125 mcg PO DAILY@1600 01/06/19 10/29/19 History finasteride 5 mg PO QDD 01/06/19 10/29/19 History glimepiride 4 mg PO QAM 01/06/19 10/29/19 History metformin 1,000 mg PO BID 01/06/19 10/29/19 History metoprolol succinate 12.5 mg PO BID 01/06/19 10/29/19 History omeprazole 40 mg PO QAM 01/06/19 10/29/19 History pregabalin [Lyrica] 25 mg PO TID 01/06/19 10/29/19 History B-complex with vitamin C [Super B 1 tab PO HS 07/19/19 10/29/19 History Complex-Vitamin C] fluticasone propion-salmeterol 1 inh INHALATION BID 07/19/19 10/29/19 History [Advair Diskus] omega [id number]-[id number]-fish oil [Fish Oil] 1 cap PO QDD 07/19/19 10/29/19 History ramipril 5 mg PO BID 07/19/19 10/29/19 History diclofenac sodium 2 g TOPICAL BID 09/27/19 10/29/19 History fentanyl 1 patch TRANSDERMAL Q72H 09/27/19 10/29/19 History nystatin 1 applic TOPICAL BID 09/27/19 10/29/19 History oxycodone 15 mg PO Q6H PRN 09/27/19 10/29/19 History polyethylene glycol 3350 [Miralax] 17 g PO QAM 09/27/19 10/29/19 History prednisolone acetate 1 drp OPHTHALMIC (EYE) QID 09/27/19 10/29/19 History cholecalciferol (vitamin D3) 2,000 units PO DAILY #30 tab 10/02/19 10/29/19 Rx magnesium oxide 400 mg PO BID 30 Days #60 tab 10/02/19 10/29/19 Rx acetaminophen [Tylenol Extra 1,000 mg PO Q6H PRN 10/10/19 10/29/19 History Strength] multivitamin 1 tab PO DAILY 10/10/19 10/29/19 History celecoxib [Celebrex] 200 mg PO BID PRN 10/29/19 10/29/19 History cephalexin [Keflex] 500 mg PO TID 10/29/19 10/29/19 History fenofibrate nanocrystallized 48 mg PO DAILY 10/29/19 10/29/19 History [Tricor] lactobacillus combination no.4 0 cell PO DAILY 10/29/19 10/29/19 History [Probiotic] menthol-zinc oxide [Calmoseptine] 1 applic TOPICAL UD PRN 10/29/19 10/29/19 History pravastatin [Pravachol] 20 mg PO DAILY 10/29/19 10/29/19 History sulfamethoxazole-trimethoprim 1 tab PO BID 10/29/19 10/29/19 History [Bactrim DS] torsemide 20 mg PO DAILY 10/29/19 10/29/19 History Past Med/Surg History Medical History 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) Acquired hallux valgus of right foot (Chronic) Choledocholithiasis CMT (Pthwlck-Yfdqp-Xowoo disease) (Chronic) COPD (chronic obstructive pulmonary disease) (Chronic) Degenerative disc disease Diabetes mellitus with diabetic polyneuropathy (Chronic) Diabetic peripheral neuropathy associated with type 2 diabetes mellitus (Chronic) Gastroesophageal reflux disease (Acute) Hallux valgus (acquired), left foot (Chronic) Hyperlipidemia (Chronic) Hypertensive heart disease (Acute) Left foot drop (Chronic) Multiple closed fractures of ribs of left side (Acute) Right foot drop (Chronic) Spinal stenosis, lumbar region with neurogenic claudication (Chronic) Tobacco user (Acute 09/27/11) Surgical History Hx of tonsillectomy (Chronic) S/P cataract extraction (Resolved) S/P cervical spinal fusion (Chronic) S/P foot surgery, right (Resolved) Status post cholecystectomy (Chronic) Family History Other COPD (chronic obstructive pulmonary disease) Coronary heart disease Social History Preferred Language: Azeri Communication Ability: Effective Visual Impairment: Limited Hearing Ability: Hard of Hearing 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 Beliefs That Will Affect Care: None marital status: Unknown Current Living Situation: Personal Care Facility current occupational status: retired Other Information That Helps Us Care for You: No Feels Safe at Home: Yes Smoking Status: Current some day smoker Tobacco Type: cigarettes ; packs per day: 0.5 ; Cigarettes Per Day: 1 every two weeks ; Hx Alcohol Use: No Hx Substance Use: No Review of Systems Review of Systems: As per HPI, all 10 systems reviewed, all other ROS negative Physical Exam Physical Exam: GENERAL: Comfortable, slightly hard of hearing, obese, episodic myoclonic jerks, no respiratory distress SKIN: Normal color, warm HEENT: [place] palpebral conjunctivae, no ptosis, dry buccal mucosa NECK : Supple, short neck, no tenderness CHEST : CTA, no tenderness HEART : RRR, no obvious murmurs ABDOMEN: Some distention, nontender EXTREMITIES : Bilateral LE venous stasis with some open sores with scant serosanguineous drainage with minimal LE tenderness, dressing around LLE, dressing over Rt great toe, no other conspicuous deformities noted NEUROLOGIC : Coherent, slightly hard of hearing, no facial asymmetry, episodic myoclonic jerks, gait and stance not assessed, no other gross focality Results & Data Vital Signs (Past 12 Hours) Vital Signs Temp Pulse Pulse Resp BP BP Pulse Ox 10/29/19 22:04 71 18 94/57 L 92 10/29/19 20:34 84 20 96/54 L 96 10/29/19 19:28 36.3 C L 71 20 111/62 97 Laboratory Results Laboratory Results WBC 9.17 K/uL (4.8-10.8) 10/29/19: RBC 5.07 M/uL (4.7-6.1) 10/29/19 20: Hgb 14.5 g/dL (14.0-18.0) 10/29/19: Hct 43.3 % (42-52) 10/29/19 20: MCV 85.4 fL (80-100) 10/29/19 20: MCH 28.6 pg (25-34) 10/29/19: MCHC 33.5 g/dL (32-36) 10/29/19: RDW Std Deviation 49.5 fL (36.4-46.3) H 10/29/19: RDW Coeff of Naomi 15.8 % (11.5-14.5) H 10/29/19: Plt Count 236 K/uL (130-400) 10/29/19 20: MPV 11.7 fL (7.4-10.4) H 10/29/19 20: Immature Gran % (Auto) 0.5 % 10/29/19 20: Neut % (Auto) 59.8 % 10/29/19 20: Lymph % (Auto) 27.3 % 10/29/19 20: Levy % (Auto) 8.6 % 10/29/19 20: Eos % (Auto) 3.1 % 10/29/19 20: Baso % (Auto) 0.7 % 10/29/19 20: Immature Gran # (Auto) 0.05 K/uL (0.00-0.02) H 10/29/19 20: Neut # (Auto) 5.49 K/uL (1.4-6.5) 10/29/19 20:28 Lymph # (Auto) 2.50 K/uL (1.2-3.4) 10/29/19 20:28 Levy # (Auto) 0.79 K/uL (0.11-0.59) H 10/29/19 20:28 Eos # (Auto) 0.28 K/uL (0-0.5) 10/29/19 20:28 Baso # (Auto) 0.06 K/uL (0-0.2) 10/29/19 20:28 PT 10.6 Seconds (9.0-12.0) 10/29/19 20: INR 1.0 (0.9-1.1) 10/29/19 20: APTT 33.3 Seconds (21.0-31.0) H 10/29/19 20: PTT Ratio 1.2 10/29/19 20:28 Sodium 131 mmol/L (136-145) L 10/29/19 22:34 Potassium 5.4 mmol/L (3.5-5.1) H 10/29/19 22:34 Chloride 97 mmol/L (98-107) L 10/29/19 22:34 Carbon Dioxide 26 mmol/L (21-32) 10/29/19 22:34 Anion Gap 8.0 (3-11) 10/29/19 22:34 BUN 88 mg/dl (7-18) H 10/29/19 22:34 Creatinine 2.07 mg/dl (0.6-1.4) H 10/29/19 22:34 Est Cr Clr Drug Dosing Not Reportable 10/29/19 22:34 Est GFR ( Amer) 36.0 10/29/19 22:34 Est GFR (Non-Af Amer) 31.1 10/29/19 22:34 BUN/Creatinine Ratio 42.5 (10-20) H 10/29/19 22:34 Glucose 141 mg/dl (70-99) H 10/29/19 22:34 Lactate 1.8 mmol/L (0.4-2.0) 10/29/19 22:34 Calcium 9.3 mg/dl (8.5-10.1) 10/29/19 22:34 Magnesium 2.1 mg/dl (1.8-2.4) 10/29/19 20:28 Total Bilirubin 0.3 mg/dl (0.2-1) 10/29/19 20: AST 24 U/L (15-37) 10/29/19 20: ALT 40 U/L (12-78) 10/29/19 20: Alkaline Phosphatase 142 U/L (45-117) H 10/29/19 20: Total Creatine Kinase 134 U/L (39-308) 10/29/19 20: Troponin I < 0.015 ng/ml (0-0.045) 10/29/19 20: Total Protein 7.8 gm/dl (6.4-8.2) 10/29/19 20: Albumin 3.4 gm/dl (3.4-5.0) 10/29/19 Globulin 4.4 gm/dl (2.5-4.0) H 10/29/19 20: Albumin/Globulin Ratio 0.8 (0.9-2) L 10/29/19: TSH 3.360 uIu/ml (0.300-4.500) 10/29/19 20: Urine Color Yellow 10/29/19 20:35 Urine Appearance Clear (Clear) 10/29/19 20: Urine pH 5.0 (4.5-7.5) 10/29/19 20: Ur Specific [place] 1.014 (1.000-1.030) 10/29/19 20: Urine Protein Negative (Negative) 10/29/19 20:35 Urine Glucose (UA) 2+ (Negative) H 10/29/19 20:35 Urine Ketones Negative (Negative) 10/29/19 20:35 Urine Blood Negative (Negative) 10/29/19 20:35 Urine Nitrite Negative (Negative) 10/29/19 20:35 Urine Bilirubin Negative (Negative) 10/29/19 20:35 Urine Urobilinogen Negative (Negative) 10/29/19 20: Ur Leukocyte Esterase Negative (Negative) 10/29/19 20:[address] head: No significant change compared to the prior study. No acute intracranial abnormality. CT cervical spine: No fractures within the cervical spine. CT abdomen pelvis: 1. Right-sided nephrolithiasis. No ureteral stones. No hydronephrosis. 2. The bladder is mildly distended. No bladder wall thickening. 3. No definite bowel wall thickening or obstruction. 4. Cholecystectomy. 5. Hepatic steatosis. 6. Stable 1.5 cm nodule within the base of the right lower lobe consistent with a hamartoma. Chest x-ray : Chronic changes as described above. No acute process within the chest. EKG as per my interpretation : Rate 75, LAD, LAFB, septal infarct, inferior infarct, low voltage
[2019-10-30 00:40] LABS: Amphetamines+Metham, Urine Neg (Neg); Barbiturates, Urine Neg (Neg); Benzodiazepine, Urine Neg (Neg); Cocaine, Urine Neg (Neg); MDMA (Ecstacy), Urine Neg (Neg); Methadone, Urine Neg (Neg); Opiate, Urine Pos (Neg); Phencyclidine, Urine Neg (Neg)
[2019-10-30] MEDS ORDERED: DEXTROSE 50% 50 ML SYRINGE IV PRN (01:59)
[2019-10-30] MEDS ORDERED: PROMETHAZINE HCL 12.5 MG in SODIUM CHLORIDE 0.9% 50 ML IV PRN (01:59)
[2019-10-30] MEDS ORDERED: GLUCAGON FOR INJ 1 MG VIAL SQ PRN (01:59)
[2019-10-30] MEDS ORDERED: GLUCOSE 10 TABS/TUBE PO PRN (01:59)
[2019-10-30] MEDS ORDERED: NITROGLYCERIN SL 0.4 MG/TAB TAB SL PRN (01:59)
[2019-10-30] MEDS ORDERED: GLUCOSE 40% GEL 15 GM TUBE PO PRN (01:59)
[2019-10-30] MEDS ORDERED: CARBOHYDRATES FOR HYPOGLYCEMIA PO PRN (01:59)
[2019-10-30] MEDS ORDERED: INSULIN GLARGINE SOLOSTAR 100 UNITS/ML 3 ML PEN SC STA (02:11)
[2019-10-30] MEDS ORDERED: PATIENT'S HEIGHT AND/OR WEIGHT NEEDED SCH (02:15)
[2019-10-30] MEDS: OXYCODONE HCL IR 5 MG TAB (IMMEDIATE RELEASE) PO PRN ×4 (02:21→21:09)
[2019-10-30] MEDS: INSULIN ASPART 100 UNITS/ML 3 ML PEN SC SCH ×5 (02:25→21:15)
[2019-10-30 03:13] LABS: Basophils # (auto) 0.06 K/uL (0-0.2); Basophils % (auto) 0.7 %; Eosinophils # (auto) 0.22 K/uL (0-0.5); Eosinophils % (auto) 2.6 %; Hematocrit (blood only) 43.3 % (42-52); Hemoglobin 14.4 g/dL (14.0-18.0); Immature Granulocytes # (auto) 0.05 K/uL (0.00-0.02); Immature Granulocytes % (auto) 0.6 %; Lymphocytes # (auto) 2.34 K/uL (1.2-3.4); Lymphocytes % (auto) 27.6 %; Mean Corpuscular Hemoglobin 28.6 pg (25-34); Mean Corpuscular Hgb Conc 33.3 g/dL (32-36); Mean Corpuscular Volume 85.9 fL (80-100); Mean Platelet Volume 11.2 fL (7.4-10.4); Monocytes # (auto) 0.82 K/uL (0.11-0.59); Monocytes % (auto) 9.7 %; Neutrophils % (auto) 58.8 %; Platelet Count 214 K/uL (130-400); RDW Coefficient of Variation 15.7 % (11.5-14.5); RDW Standard Deviation 49.4 fL (36.4-46.3); Red Blood Count 5.04 M/uL (4.7-6.1); White Blood Count 8.49 K/uL (4.8-10.8)
[2019-10-30] MEDS: ACETAMINOPHEN 325 MG TAB PO PRN (03:33)
[2019-10-30 03:34] LABS: Blood Urea Nitrogen 82 mg/dl (7-18); Calcium 9.2 mg/dl (8.5-10.1); Carbon Dioxide 27 mmol/L (21-32); Chloride 97 mmol/L (98-107); Est GFR (African American) 38.5; Est GFR (Non-African American) 33.2; Glucose 123 mg/dl (70-99); Potassium 4.8 mmol/L (3.5-5.1); Sodium 132 mmol/L (136-145)
[2019-10-30] MEDS ORDERED: SODIUM CHLORIDE 0.9% 1000ML 1,000 ML IV ONE (03:50)
[2019-10-30] MEDS: FLUTICASONE/VILANTEROL 100/25MCG 14 PUFFS/INHALER INH SCH (08:37)
[2019-10-30] MEDS: APIXABAN 5 MG TABLET PO SCH ×2 (08:37→21:17)
[2019-10-30] MEDS: FENOFIBRATE NANOCRYSTALLIZED 48 MG TABLET PO SCH (08:38)
[2019-10-30] MEDS: ASPIRIN 81 MG ECTAB PO SCH (08:38)
[2019-10-30] MEDS: PRAVASTATIN SOD 20 MG TAB PO SCH (08:38)
[2019-10-30] MEDS: MULTIVITAMIN TAB PO SCH (08:38)
[2019-10-30] MEDS ORDERED: DOXYCYCLINE HYCLATE 100 MG in DEXTROSE 5% 100 ML IV SCH (09:00)
--- NOTE | 2019-10-30 11:52 | Electrocardiogram Report ---
Test Reason : Blood Pressure : / mmHG Vent. Rate : 075 BPM Atrial Rate : 220 BPM P-R Int : 000 ms QRS Dur : 102 ms QT Int : 366 ms P-R-T Axes : 096 -47 -61 degrees QTc Int : 408 ms Atrial flutter with variable A-V block Low voltage QRS Left anterior fascicular block Anterolateral infarct (cited on or before 06-JAN-2019) Cannot rule out Inferior infarct , age undetermined Abnormal ECG When compared with ECG of 10-OCT-2019 13:45, No significant change was found Confirmed by Woo Bernard ([id number]) on 10/30/2019 11:52:41 AM Referred By: REFERRED SELF Confirmed By:Woo Bernard
[2019-10-30] MEDS ORDERED: CeleBREX 200 MG CAP PO PRN (15:24)
[2019-10-30] MEDS ORDERED: NON-FORMULARY MEDICATION (Fentanyl 1 PATCH) TD SCH (15:30)
[2019-10-30] MEDS ORDERED: fentaNYL 12 MCG/HR TDSY TD SCH (16:00)
[2019-10-30] MEDS ORDERED: fentaNYL 25 MCG/HR TDSY TD SCH (16:00)
[2019-10-30] MEDS: CHECK FENTANYL PATCH PLACEMENT SCH ×2 (16:35)
[2019-10-30] MEDS: FINASTERIDE 5 MG TAB PO SCH (16:36)
--- NOTE | 2019-10-30 16:42 | XRay Report ---
RIGHT SHOULDER 3 VIEWS HISTORY: fall, limited ROM of R shoulder COMPARISON: None. FINDINGS: There is no fracture or dislocation. Soft tissues are unremarkable. Narrowing of the subacr omial space consistent with chronic rotator cuff injury. There is moderate degenerative changes withi n the right shoulder. Cervical spinal fusion hardware is partially visualized. The right clavicle lexy ears intact. IMPRESSION: 1. No fracture or dislocation within the right shoulder. 2. Narrowing of the subacromial space consistent with chronic rotator cuff injury. ACT 112: Negative or not required by law. Electronically signed by: Mina Buchanan M.D. 10/30/2019 4:41 PM
[2019-10-30] MEDS: DIGOXIN 0.125 MG TAB PO SCH (17:00)
[2019-10-30] MEDS: LIDOCAINE 5% 1 PATCH TD SCH (17:01)
[2019-10-30] MEDS: TROLAMINE SALICYLATE 10% CRM 255 APPLN/85 GM TUBE EXT PRN (17:09)
--- NOTE | 2019-10-30 18:58 | Hospitalist Progress Note ---
Date of Service October 30, 2019 Assessment & Plan (1) Toe infection: Recent Bactrim use in addition to Keflex. Toe infection is improved, however, the patient had some confusion on arrival in addition to TIO likely from the Bactrim use. Continue Keflex and doxycycline now. Wound care nurse to see. (2) Acute metabolic encephalopathy: Resolved with improvement in renal function (3) TIO (acute kidney injury): Improved with IV fluids overnight. Continue 1 more bag of IV fluids and trend BMP in a.m. (4) Hyperkalemia: Secondary to TIO. This has trended down and is now within normal range. (5) Opioid dependence: Restarted opiates including fentanyl patch and oxycodone 15 mg every 6 hours. He has been on these long-term. 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 He actually had his head with his recent fall and likely did not sustain a major injury. (7) Ambulatory dysfunction: Chronic, uses scooter more now with worsening spinal stenosis and comorbidities. (8) Fall: Multiple falls in the last 6 months. Minimize offensive medications. (9) Diabetic peripheral neuropathy associated with type 2 diabetes mellitus: Continue medical management (10) DMII (diabetes mellitus, type 2): Basal bolus insulin while hospitalized (11) Zzjwhql-Rzisv-Yyqkx disease: Continue medical management of pain. (12) DVT prophylaxis: Eliquis Full code Disposition-uncertain disposition at this time. PT/OT for recommendations. 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 The patient is now reporting right shoulder immobility and an x-ray was performed revealing no acute fracture or dislocation. Soft tissue injury is probable. He is now mentating at baseline. He is mostly wheelchair-bound from a mobility standpoint. Medications were reviewed with his daughter and care plan was reviewed with his daughter and the patient in the room. All questions were answered. Review of systems reveals chronic pain but an overall improvement since yesterday. The patient does report cold intolerance. Review of Systems Review of Systems: All systems reviewed & are unremarkable except as noted in Subjective Physical Exam Physical Exam: CONSTITUTIONAL: WNWD, vitals as above,NAD, appears cold under many heavy blankets and still cannot get warm EYES: normal conjunctivae, no scleral icterus ENT: MMM RESPIRATORY: clear to auscultation bilaterally, no crackles, rales or wheezes, normal respiratory effort CARDIOVASCULAR: regular rate and rhythm, S1 and 2 heard without murmurs, gallops or rubs, no JVD, no peripheral edema GASTROINTESTINAL: normal bowel sounds, soft, nontender, nondistended MUSCULOSKELETAL: strength 5/5 throughout, head is normocephalic and atraumatic SKIN: warm and dry, multiple wounds on feet and on toe NEUROLOGIC: CN 2-12 grossly intact, normal cognition, normal speech PSYCHIATRIC: alert cooperative and oriented to person, place and time. Results & Data ([facility]) Vital Signs (Past 12 Hours) Vital Signs Temp Pulse Pulse Resp BP Pulse Ox 10/30/19 17:31 85 10/30/19 17:00 101 H 10/30/19 15:51 36.5 C 81 18 126/70 93 10/30/19 11:23 36.7 C 78 16 116/73 94 10/30/19 07:59 36.5 C 75 18 114/66 95 10/30/19 07:09 77 Laboratory Results Short CBC 10/29/19 10/30/19 Range/Units 20:28 03:04 WBC 9.17 8.49 (4.8-10.8) K/uL Hgb 14.5 14.4 (14.0-18.0) g/dL Hct 43.3 43.3 (42-52) % Plt Count 236 214 (130-400) K/uL BMP 10/29/19 10/29/19 10/30/19 20:28 22:34 03:04 Sodium 130 L 131 L 132 L Potassium 5.3 H 5.4 H 4.8 Chloride 95 L 97 L 97 L Carbon Dioxide 26 26 27 BUN 90 H 88 H 82 H Creatinine 2.18 H 2.07 H 1.96 H Glucose 166 H 141 H 123 H Calcium 9.4 9.3 9.2 Cardiac Enzymes 10/29/19 Range/Units 20:28 Total Creatine Kinase 134 (39-308) U/L Troponin I < 0.015 (0-0.045) ng/ml Liver Function 10/29/19 Range/Units 20:28 Total Bilirubin 0.3 (0.2-1) mg/dl AST 24 (15-37) U/L ALT 40 (12-78) U/L Alkaline Phosphatase 142 H (45-117) U/L Albumin 3.4 (3.4-5.0) gm/dl Urine 10/29/19 Range/Units 20:35 Urine Color Yellow Urine Appearance Clear (Clear) Urine pH 5.0 (4.5-7.5) Ur Specific [place] 1.014 (1.000-1.030) Urine Protein Negative (Negative) Urine Glucose (UA) 2+ H (Negative) Medications Administered Current Inpatient Medications Acetaminophen (Tylenol) 650 mg PO Q4H PRN PRN Reason: Pain or Fever Stop: 11/29/19 01:58 Last Admin: 10/30/19 03:33 Dose: 650 mg Documented by: Apixaban (Eliquis) 5 mg PO BID [facility] Stop: 11/29/19 08:59 Last Admin: 10/30/19 08:37 Dose: 5 mg Documented by: Ascorbic Acid (Vitamin C) 1,000 mg PO QAM [facility] Stop: 11/30/19 08:59 Aspirin (Ecotrin Ectab) 81 mg PO QAM [facility] Stop: 11/29/19 08:59 Last Admin: 10/30/19 08:38 Dose: 81 mg Documented by: Celecoxib (Celebrex) 200 mg PO BID PRN PRN Reason: Pain Stop: 11/29/19 15:23 Cephalexin HCl (Keflex) 250 mg PO TID [facility]; Protocol Stop: 11/09/19 20:59 Dextrose (Dextrose 50%) 25 - 50 ml IV UD PRN; Protocol PRN Reason: Hypoglycemia Protocol Stop: 11/29/19 01:58 Digoxin (Lanoxin) 0.125 mg PO DAILY@1600 [facility] Stop: 11/29/19 15:59 Last Admin: 10/30/19 17:00 Dose: 0.125 mg Documented by: Fenofibrate (Fenofibrate) 48 mg PO DAILY [facility] Stop: 11/29/19 08:59 Last Admin: 10/30/19 08:38 Dose: 48 mg Documented by: Fentanyl (Duragesic) 12 mcg TD Q3D@0900 [facility] Stop: 11/13/19 15:59 Last Admin: 10/30/19 16:28 Dose: 12 mcg Documented by: Fentanyl (Duragesic) 25 mcg TD Q3D@0900 [facility] Stop: 11/13/19 15:59 Last Admin: 10/30/19 16:28 Dose: 25 mcg Documented by: Finasteride (Proscar) 5 mg PO QDD [facility] Stop: 11/29/19 16:29 Last Admin: 10/30/19 16:36 Dose: 5 mg Documented by: Fluticasone/Vilanterol (Breo Ellipta 100/25 Mcg Inh) 1 puffs INH DAILY [facility] Stop: 11/29/19 08:59 Last Admin: 10/30/19 08:37 Dose: 1 puffs Documented by: Glucagon (Glucagen) 1 mg SQ UD PRN; Protocol PRN Reason: Hypoglycemia Protocol Stop: 11/29/19 01:58 Glucose (Dex4 Glucose) 4 - 8 tabs PO UD PRN; Protocol PRN Reason: Hypoglycemia Protocol Stop: 11/29/19 01:58 Glucose (Glucose 40%) 15 - 30 gm PO UD PRN; Protocol PRN Reason: Hypoglycemia Protocol Stop: 11/29/19 01:58 Promethazine HCl 12.5 mg/ (Sodium Chloride) 50.5 mls @ 202 mls/hr IV Q6H PRN PRN Reason: Nausea And Vomiting Stop: 11/29/19 01:58 Insulin Aspart (Novolog Flexpen) 0 units SC ACHS [facility] Stop: 11/29/19 01:58 Last Admin: 10/30/19 17:03 Dose: 8 units Documented by: Insulin Glargine (Lantus Solostar Pen) 10 units SC HS [facility] Stop: 11/29/19 20:59 Lidocaine (Lidoderm 5%) 1 patch TD QAM [facility] Stop: 11/29/19 15:59 Last Admin: 10/30/19 17:01 Dose: 1 patch Documented by: Magnesium Oxide (Mag-Ox) 400 mg PO BID [facility] Stop: 11/29/19 20:59 Metoprolol Succinate (Toprol Xl) 12.5 mg PO BID [facility] Stop: 11/29/19 20:59 Miscellaneous (Carbohydrates For Hypoglycemia) 15 - 30 gm PO UD PRN PRN Reason: Hypoglycemia Protocol Stop: 11/29/19 01:58 Miscellaneous (Remove Lidoderm Patch) 1 ea N/A DAILY@2100 [facility] Stop: 11/29/19 22:59 Miscellaneous (Fentanyl Patch Remove & Waste) 1 ea N/A Q72H [facility] Stop: 12/02/19 08:58 Miscellaneous (Fentanyl Patch Check Placement) 1 ea N/A QS [facility] Stop: 11/29/19 15:59 Last Admin: 10/30/19 16:35 Dose: 1 ea Documented by: Miscellaneous (Fentanyl Patch Remove & Waste) 1 ea N/A Q72H [facility] Stop: 12/02/19 08:58 Miscellaneous (Fentanyl Patch Check Placement) 1 ea N/A QS [facility] Stop: 11/29/19 15:59 Last Admin: 10/30/19 16:35 Dose: 1 ea Documented by: Multivitamins (Multivitamin Tab) 1 tab PO DAILY [facility] Stop: 11/29/19 08:59 Last Admin: 10/30/19 08:38 Dose: 1 tab Documented by: Nitroglycerin (Nitrostat) 0.4 mg SL UD PRN PRN Reason: Chest Pain Stop: 11/29/19 01:58 Oxycodone HCl (Roxicodone Immediate Rel) 5 mg PO Q4H PRN PRN Reason: Pain Stop: 11/13/19 01:58 Last Admin: 10/30/19 16:29 Dose: 5 mg Documented by: Oxycodone HCl (Roxicodone Immediate Rel) 15 mg PO Q6H PRN PRN Reason: Pain Stop: 11/13/19 15:23 Pantoprazole Sodium (Protonix) 40 mg PO QAM [facility] Stop: 11/30/19 08:59 Polyethylene Glycol (Miralax Powder Packet) 17 gm PO QAM [facility] Stop: 11/30/19 08:59 Pravastatin Sodium (Pravachol) 20 mg PO DAILY [facility] Stop: 11/29/19 08:59 Last Admin: 10/30/19 08:38 Dose: 20 mg Documented by: Pregabalin (Lyrica) 25 mg PO TID [facility] Stop: 11/29/19 20:59 Trolamine Salicylate (Myoflex) 1 appln EXT TID PRN PRN Reason: Pain Stop: 11/29/19 15:20 Last Admin: 10/30/19 17:09 Dose: 1 appln Documented by: Vitamin B Complex (Vitamin B Complex) 1 tab PO HS [facility] Stop: 11/29/19 20:59 Vitamin D (Vitamin D3) 2,000 units PO DAILY [facility] Stop: 11/30/19 08:59 (1) Fall Encounter type: initial encounter Qualified Code(s): W19.XXXA - Unspecified fall, initial encounter
[2019-10-30] MEDS: PREGABALIN 25 MG CAP PO SCH (21:09)
[2019-10-30] MEDS: VITAMIN B COMPLEX TAB PO SCH (21:10)
[2019-10-30] MEDS: MAGNESIUM OXIDE 400 MG TAB PO SCH (21:11)
[2019-10-30] MEDS: METOPROLOL SUCC 25MG EXT REL TAB PO SCH (21:12)
[2019-10-30] MEDS: cephALEXin 250 MG CAP PO SCH (21:12)
[2019-10-30] MEDS: INSULIN GLARGINE SOLOSTAR 100 UNITS/ML 3 ML PEN SC SCH (21:14)
[2019-10-31] MEDS: CHECK FENTANYL PATCH PLACEMENT SCH ×8 (00:46→23:22)
[2019-10-31] MEDS: OXYCODONE HCL IR 5 MG TAB (IMMEDIATE RELEASE) PO PRN ×4 (02:00→23:20)
[2019-10-31] MEDS: TROLAMINE SALICYLATE 10% CRM 255 APPLN/85 GM TUBE EXT PRN ×3 (03:19→16:27)
[2019-10-31] MEDS: ACETAMINOPHEN 325 MG TAB PO PRN (04:36)
[2019-10-31] MEDS: INSULIN ASPART 100 UNITS/ML 3 ML PEN SC SCH ×4 (08:04→20:49)
[2019-10-31] MEDS: LIDOCAINE 5% 1 PATCH TD SCH (08:19)
[2019-10-31] MEDS: FLUTICASONE/VILANTEROL 100/25MCG 14 PUFFS/INHALER INH SCH (08:19)
[2019-10-31] MEDS: APIXABAN 5 MG TABLET PO SCH ×2 (08:20→20:48)
[2019-10-31] MEDS: FENOFIBRATE NANOCRYSTALLIZED 48 MG TABLET PO SCH (08:20)
[2019-10-31] MEDS: ASPIRIN 81 MG ECTAB PO SCH (08:21)
[2019-10-31] MEDS: cephALEXin 250 MG CAP PO SCH ×3 (08:21→20:47)
[2019-10-31] MEDS: PRAVASTATIN SOD 20 MG TAB PO SCH (08:21)
[2019-10-31] MEDS: METOPROLOL SUCC 25MG EXT REL TAB PO SCH ×2 (08:21→20:44)
[2019-10-31] MEDS: MULTIVITAMIN TAB PO SCH (08:21)
[2019-10-31] MEDS: MAGNESIUM OXIDE 400 MG TAB PO SCH ×2 (08:22→20:47)
[2019-10-31] MEDS: PANTOprazole 40 MG TAB PO SCH (08:22)
[2019-10-31] MEDS: ASCORBIC ACID 500 MG TAB PO SCH (08:22)
[2019-10-31] MEDS: CHOLECALCIFEROL 1,000 UNITS 25 MCG TAB PO SCH (08:22)
[2019-10-31] MEDS: POLYETHYLENE (MIRALAX) 17 GM PACK PO SCH (08:23)
[2019-10-31] MEDS: PREGABALIN 25 MG CAP PO SCH ×3 (08:33→20:55)
[2019-10-31] MEDS ORDERED: INSULIN GLARGINE SOLOSTAR 100 UNITS/ML 3 ML PEN SC SCH (09:00)
--- NOTE | 2019-10-31 12:22 | Hospitalist Progress Note ---
Date of Service October 31, 2019 Assessment & Plan (1) Toe infection: Chronic toe infection on on right foot secondary to Mqldulz-Tvddi-Phdng Antibiotic changed to p.o. Keflex and doxycycline, patient is clinically improved No fever, No pain or discomfort on right foot Present on Admission?: Yes (2) Acute metabolic encephalopathy: Possible secondary to acute renal failure and electrolyte imbalance Resolved, mental status back to baseline, alert awake oriented x3 conversing appropriately, (3) TIO (acute kidney injury): Possible secondary to antibiotic induced: P.o. Bactrim Baseline creatinine 1-0.8 Admitted with creatinine 2.18 Bactrim discontinued, given IV fluids creatinine gradually improving to 1.96, Repeat BMP, avoid NSAIDs, contrast studies (4) Hyperkalemia: Admitted with potassium 5.4, secondary to acute renal failure, antibiotic induced: Bactrim Potassium level improved to normal with IV fluids and discontinuation of Bactrim (5) Opioid dependence: Restarted opiates including fentanyl patch and oxycodone 15 mg every 6 hours. He has been on these long-term for his chronic joint pains (6) Paroxysmal atrial fibrillation: Continue Eliquis (7) Ambulatory dysfunction: Chronic, uses scooter more now with worsening spinal stenosis and comorbidities. (8) Fall: Multiple falls in the last 6 months. Order for PT OT, fall precaution (9) Diabetic peripheral neuropathy associated with type 2 diabetes mellitus: Continue medical management (10) DMII (diabetes mellitus, type 2): Basal bolus insulin while hospitalized (11) Izfobss-Dbkzs-Fhczx disease: Continue medical management of pain. (12) DVT prophylaxis: Eliquis Full code Disposition- Expected to be discharged home in next 1-2 days, Patient has: nurse aide evaluator to help with his ADL approximately 12-13 hours a day Home health visiting nurse as well Patient will benefit with wound care clinic [id number] will be scheduled prior to patient's being discharged Update given to patient's daughter Shantell over phone Subjective Doing well, sitting up in chair, no fever chills no cough no shortness of breath Right great to wound healing well, no active drainage, patient denies of any pain or discomfort, able to bear weight Review of Systems Review of Systems: As per HPI, all 10 systems reviewed, all other ROS negative Physical Exam Constitutional: WD/WN, vitals as above no acute distress Eyes: PERRL, conjunctivae normal, anicteric sclerae ENMT: external ear and nose normal, oropharynx normal Neck: trachea midline, no thyromegaly Respiratory: normal respiratory effort, lungs clear to auscultation Cardiovascular: RRR, no murmur, no edema Gastrointestinal (Abdomen): normal bowel sounds, soft, nontender, no hepatosplenomegaly Musculoskeletal: Extremities: + hand abnormality (Multiple different fingers joints secondary to Klplbzg-Yyzol-Zrtnj) Bilateral and + foot abnormality (Called in toes secondary to patient's known diagnosis of Mensuep-Riwzz-Kcisf, wound on right great toe bandage present no active drainage noted) Bilateral Neurologic: PERRL, EOMI, accommodation nl, no face palsy, no dysarthria Psychiatric: A+Ox3, euthymic affect Results & Data ([facility]) Vital Signs (Past 12 Hours) Vital Signs Temp Pulse Pulse Resp BP Pulse Ox 10/31/19 11:17 36.4 C L 75 16 133/72 97 10/31/19 07:34 75 10/31/19 07:19 36.5 C 74 16 119/72 95 10/31/19 03:00 36.4 C L 75 20 135/77 96 (1) Fall Encounter type: initial encounter Qualified Code(s): W19.XXXA - Unspecified fall, initial encounter
[2019-10-31] MEDS: DIGOXIN 0.125 MG TAB PO SCH (16:25)
[2019-10-31] MEDS: FINASTERIDE 5 MG TAB PO SCH (16:26)
[2019-10-31] MEDS ORDERED: SODIUM CHLORIDE 0.9% 1000ML 1,000 ML IV SCH (16:45)
[2019-10-31] MEDS: INSULIN GLARGINE SOLOSTAR 100 UNITS/ML 3 ML PEN SC SCH (20:48)
[2019-10-31] MEDS: VITAMIN B COMPLEX TAB PO SCH (20:50)
[2019-11-01] MEDS: OXYCODONE HCL IR 5 MG TAB (IMMEDIATE RELEASE) PO PRN ×2 (08:07→14:07)
[2019-11-01] MEDS: PREGABALIN 25 MG CAP PO SCH ×2 (08:07→14:08)
[2019-11-01] MEDS: MAGNESIUM OXIDE 400 MG TAB PO SCH (08:08)
[2019-11-01] MEDS: PRAVASTATIN SOD 20 MG TAB PO SCH (08:08)
[2019-11-01] MEDS: FLUTICASONE/VILANTEROL 100/25MCG 14 PUFFS/INHALER INH SCH (08:09)
[2019-11-01] MEDS: cephALEXin 250 MG CAP PO SCH ×2 (08:09→14:03)
[2019-11-01] MEDS: MULTIVITAMIN TAB PO SCH (08:09)
[2019-11-01] MEDS: ASPIRIN 81 MG ECTAB PO SCH (08:09)
[2019-11-01] MEDS: FENOFIBRATE NANOCRYSTALLIZED 48 MG TABLET PO SCH (08:09)
[2019-11-01] MEDS: APIXABAN 5 MG TABLET PO SCH (08:09)
[2019-11-01] MEDS: PANTOprazole 40 MG TAB PO SCH (08:09)
[2019-11-01] MEDS: LIDOCAINE 5% 1 PATCH TD SCH (08:10)
[2019-11-01] MEDS: CHOLECALCIFEROL 1,000 UNITS 25 MCG TAB PO SCH (08:10)
[2019-11-01] MEDS: ASCORBIC ACID 500 MG TAB PO SCH (08:10)
[2019-11-01] MEDS: POLYETHYLENE (MIRALAX) 17 GM PACK PO SCH (08:11)
[2019-11-01] MEDS: CHECK FENTANYL PATCH PLACEMENT SCH ×4 (08:11→15:27)
[2019-11-01] MEDS: INSULIN ASPART 100 UNITS/ML 3 ML PEN SC SCH ×2 (08:12→12:07)
[2019-11-01] MEDS: METOPROLOL SUCC 25MG EXT REL TAB PO SCH (08:12)
[2019-11-01 08:43] LABS: Calcium 9.9 mg/dl (8.5-10.1); Creatinine Clr Calc Pharmacy 80.3 ml/min; Est GFR (African American) 94.7; Est GFR (Non-African American) 81.7; Potassium 4.4 mmol/L (3.5-5.1)
[2019-11-01 11:07] LABS: Codeine Urine NEGATIVE ng/mL (<50); Hydrocodone Urine NEGATIVE ng/mL (<50); Hydromor Urine NEGATIVE ng/mL (<50); Morphine Urine NEGATIVE ng/mL (<50); Norhydrocodone Conf Ur NEGATIVE ng/mL (<50); Noroxycodone Urine 1630 ng/mL (<50); Oxycodone Urine 1940 ng/mL (<50); Oxymorph Urine NEGATIVE ng/mL (<50)
[2019-11-01] MEDS: DIGOXIN 0.125 MG TAB PO SCH (15:28)
[2019-11-01] MEDS: TROLAMINE SALICYLATE 10% CRM 255 APPLN/85 GM TUBE EXT PRN (15:28)
[2019-11-01] MEDS: FINASTERIDE 5 MG TAB PO SCH (15:30)
--- NOTE | 2019-11-01 15:58 | Hospitalist Progress Note ---
Date of Service November 01, 2019 Assessment & Plan (1) Toe infection: Chronic toe infection on on right foot secondary to Zjvbkbd-Mmnls-Uqgwk Antibiotic changed to p.o. Keflex and doxycycline, patient is clinically improved No fever, No pain or discomfort on right foot DC doxycycline, patient will be discharged with p.o. Keflex only (2) Acute metabolic encephalopathy: Possible secondary to acute renal failure and electrolyte imbalance Resolved, mental status back to baseline, alert awake oriented x3 conversing appropriately, (3) TIO (acute kidney injury): Possible secondary to antibiotic induced: P.o. Bactrim Baseline creatinine 1-0.8 Admitted with creatinine 2.18 Bactrim discontinued, given IV fluids creatinine gradually improving to 1.96, Right knee improved to approximate baseline, stable to be discharged home today (4) Hyperkalemia: Admitted with potassium 5.4, secondary to acute renal failure, antibiotic induced: Bactrim Potassium level improved to normal with IV fluids and discontinuation of Bactrim Bactrim added to patient's allergy list (5) Opioid dependence: Restarted opiates including fentanyl patch and oxycodone 15 mg every 6 hours. He has been on these long-term for his chronic joint pains (6) Paroxysmal atrial fibrillation: Continue Eliquis (7) Ambulatory dysfunction: Chronic, uses scooter more now with worsening spinal stenosis and comorbidities. (8) Fall: Multiple falls in the last 6 months. Order for PT OT, fall precaution/appreciate input Patient is 12 hours aid service at home, stable to be return home with previous service (9) Diabetic peripheral neuropathy associated with type 2 diabetes mellitus: Continue medical management (10) DMII (diabetes mellitus, type 2): Basal bolus insulin while hospitalized (11) Sfeyesq-Nadwo-Sfcfn disease: Continue medical management of pain. (12) DVT prophylaxis: Eliquis Full code Disposition- Stable to be discharged home today Patient has: rehab aide to help with his ADL approximately 12-13 hours a day Home health visiting nurse as well Follow-up with wound clinic in 3 to 4 weeks Daughter Shantell updated at bedside Subjective No complaint of pain or discomfort on right great toe, no fever or chills Feeling fine, stable to be discharged home today Review of Systems Review of Systems: As per HPI, all 10 systems reviewed, all other ROS negative Physical Exam Constitutional: WD/WN, vitals as above no acute distress Eyes: PERRL, conjunctivae normal, anicteric sclerae ENMT: external ear and nose normal, oropharynx normal Neck: trachea midline, no thyromegaly Respiratory: normal respiratory effort, lungs clear to auscultation Cardiovascular: RRR, no murmur, no edema Gastrointestinal (Abdomen): normal bowel sounds, soft, nontender, no hepatosplenomegaly Musculoskeletal: Extremities: + hand abnormality (Multiple different fingers joints secondary to Fygshja-Bzjpc-Jwced) and + foot abnormality (Deformities in toes secondary to patient's known diagnosis of Oflygwd-Virdr-Yoiff, wound on right great toe bandage present no active drainage noted) Bilateral Neurologic: PERRL, EOMI, accommodation nl, no face palsy, no dysarthria Psychiatric: A+Ox3, euthymic affect Results & Data ([facility]) Vital Signs (Past 12 Hours) Vital Signs Temp Pulse Pulse Resp BP Pulse Ox 11/01/19 15:44 74 11/01/19 15:39 36.3 C L 76 16 123/71 96 11/01/19 15:28 69 11/01/19 11:46 36.5 C 78 20 111/71 95 11/01/19 08:07 36.7 C 70 20 119/73 93 11/01/19 07:15 73 (1) Fall Encounter type: initial encounter Qualified Code(s): W19.XXXA - Unspecified fall, initial encounter
--- NOTE | 2019-11-02 15:24 | Discharge Summary ---
Date of Service November 02, 2019 Admission HPI Per Admitting Provider History obtained from patient, daughter, and records. Medical history significant for AFib/atrial flutter on Eliquis, hypertension, COPD as per records, PVD as per records, DM2 on oral meds, Kqyduam-Sqexz-Zsjev neuropathy, chronic pain on narcotics, history of bilateral lower extremity venous ulcers, past tobacco use. Recent confinement last month for ambulatory dysfunction. Patient seen at PCPs office last week for right great toe infection. No fever, no chills. Patient told PCP that legs were more swollen than usual and he could not catch his breath particularly at night. Sores noted on both lower legs as per notes. Patient prescribed torsemide daily in place of home Lasix. Keflex and Bactrim prescriptions given for leg/right great toe infections. Improved swelling, infection with compliance as per patient/daughter. Yesterday morning, patient lost his balance leading to a fall at his home while trying to put on his shorts. Some head trauma without LOC. Patient daughter (retired nurse social organization professor) checked on patient at his home. Patient was later noted to be sleepier than usual. SBP noted to be 80 to 90s. Pupils were pinpoint as per daughter. Patient daughter took off patient's fentanyl patch. Episodic twitching as per daughter. Patient brought to the ER for evaluation. MEDICAL HISTORY: As above. SURGERIES: He has had tonsillectomy, neck surgery, cholecystectomy, nasal reconstruction, toe surgery, cataract surgery FAMILY HISTORY: There is a family history of heart disease, COPD, Tyrvbbq-Rikjl-Ytcuy disease. PERSONAL AND SOCIAL HISTORY: Past smoker. Occasional EtOH intake. 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 Principal Diagnosis Infection of toe/Nbpwbym-Puxpq-Prrzm disease/type 2 diabetes Discharge Exam Constitutional WD/WN, vitals as above no acute distress Eyes PERRL, conjunctivae normal, anicteric sclerae ENMT external ear and nose normal, oropharynx normal Neck trachea midline, no thyromegaly Respiratory normal respiratory effort, lungs clear to auscultation Cardiovascular RRR, no murmur, no edema Gastrointestinal (Abdomen) normal bowel sounds, soft, nontender, no hepatosplenomegaly Musculoskeletal Extremities: + hand abnormality (Multiple different fingers joints secondary to Kkpprro-Vlvve-Nktnf) and + foot abnormality (Deformities in toes secondary to patient's known diagnosis of Phkquwn-Sijov-Cyblq, wound on right great toe bandage present no active drainage noted) Neurologic PERRL, EOMI, accommodation nl, no face palsy, no dysarthria Psychiatric A+Ox3, euthymic affect Discharge Data Allergies Allergy/AdvReac Type Severity Reaction Status Date / Time Penicillins Allergy Intermediate RASH Verified 10/10/19 15:19 sulfamethoxazole AdvReac Mild arf, Verified 10/30/19 00:01 [From Bactrim] hyperkalemia trimethoprim [From Bactrim] AdvReac Mild arf, Verified 10/30/19 00:01 hyperkalemia Consultations 10/29/19 21:43 ED Decision to Admit Stat 10/30/19 01:59 Consult Case Management - Discharge Planning Routine 10/30/19 06:06 Consult Case Management - Discharge Planning Routine Ordered Studies 10/29/19 19:59 CT abd pelvis wo con Stat CT cervical spine wo con Stat CT head/brain wo con Stat Hospital Course (1) Toe infection: Chronic toe infection on on right foot secondary to Lpdgirx-Yuevt-Bfgis Antibiotic changed to p.o. Keflex and doxycycline, patient is clinically improved No fever, No pain or discomfort on right foot DC doxycycline, patient will be discharged with p.o. Keflex only (2) Acute metabolic encephalopathy: Possible secondary to acute renal failure and electrolyte imbalance Resolved, mental status back to baseline, alert awake oriented x3 conversing a ppropriately, (3) TIO (acute kidney injury): Possible secondary to antibiotic induced: P.o. Bactrim Baseline creatinine 1-0.8 Admitted with creatinine 2.18 Bactrim discontinued, given IV fluids creatinine gradually improving to 1.96, Right knee improved to approximate baseline, stable to be discharged home today (4) Hyperkalemia: Admitted with potassium 5.4, secondary to acute renal failure, antibiotic induced: Bactrim Potassium level improved to normal with IV fluids and discontinuation of Bactrim Bactrim added to patient's allergy list (5) Opioid dependence: Restarted opiates including fentanyl patch and oxycodone 15 mg every 6 hours. He has been on these long-term for his chronic joint pains (6) Paroxysmal atrial fibrillation: Continue Eliquis (7) Ambulatory dysfunction: Chronic, uses scooter more now with worsening spinal stenosis and comorbidities. (8) Fall: Multiple falls in the last 6 months. Order for PT OT, fall precaution/appreciate input Patient is 12 hours aid service at home, stable to be return home with previous service (9) Diabetic peripheral neuropathy associated with type 2 diabetes mellitus: Continue medical management (10) DMII (diabetes mellitus, type 2): Basal bolus insulin while hospitalized (11) Nqfhuwg-Arjxs-Efxrz disease: Continue medical management of pain. (12) DVT prophylaxis: Eliquis Full code Disposition- Stable to be discharged home today Patient has: physical therapist aide to help with his ADL approximately 12-13 hours a day Home health visiting nurse as well Follow-up with wound clinic in 3 to 4 weeks Daughter Shantell updated at bedside Total Time Total Time Spent Total Time Spent (In Minutes): Approximately 40 minutes Total Time Includes: Examination of the Patient, Discharge Planning and Medication Reconciliation Discharge Plan Discharge Items Patient Disposition: Home - Home Health Services Reason For Visit: BLOOD PRESSURE LOW Discharge Diagnosis: Infection of toe/Kbmjxzp-Tprlu-Bpdfx disease/type 2 diabetes Activity: Resume your previous activity Non-emergency contact: Primary Care Provider Call non-emergency contact if: you have any medication questions Follow-up/Referrals: Mohan Perry MD [Primary Care Provider] - 11/05/19 2:45 pm Juliocesar Branch, [Physician] - (please call to schedule you an appointment in 2 to 3 weeks) Diet: Carb Consistent or DM2 Addtl Attending Provider Instructions: Please follow-up with wound care clinic in 2-3 weeks for wound check Do not take high-dose aspirin, Aleve, Motrin, Advil, naproxen, ibuprofen, Celebrex-this is a group of pain medication/drugs will call worsening of your kidney function Continue to take torsemide 20 mg dose reduced to 3 times a week, can take extra dose as needed for increased leg swelling Pending Studies at Discharge: No Stand-Alone Forms: My Certain, Smoking Cessation Medications and DC Order Prescriptions: New cephalexin 250 mg Capsule 250 mg PO TID 4 Days Qty: 12 RF: 0 Continued ascorbic acid (vitamin C) [Vitamin C] 1,000 mg Tablet 1,000 mg PO QAM RF: 0 omeprazole 40 mg Capsule,Delayed Release(Dr/Ec) 40 mg PO QAM RF: 0 aspirin 81 mg Tablet,Delayed Release (Dr/Ec) 81 mg PO QAM RF: 0 metformin 1,000 mg Tablet 1,000 mg PO BID RF: 0 glimepiride 4 mg Tablet 4 mg PO QAM RF: 0 digoxin [Digox] 125 mcg Tablet 125 mcg PO DAILY@1600 RF: 0 metoprolol succinate 25 mg Tablet Extended Release 24 Hr 12.5 mg PO BID RF: 0 albuterol sulfate [Ventolin HFA] 90 mcg/actuation Hfa Aerosol Inhaler 2 puff INHALATION Q6H PRN (Reason: Shortness Of Breath) RF: 0 finasteride 5 mg Tablet 5 mg PO QDD RF: 0 pregabalin [Lyrica] 25 mg Capsule 25 mg PO TID RF: 0 Eliquis 5 mg Tablet 5 mg PO BID RF: 0 Jardiance 10 mg Tablet 10 mg PO QAM RF: 0 pravastatin [Pravachol] 20 mg tablet 20 mg PO DAILY RF: 0 fenofibrate nanocrystallized [Tricor] 48 mg tablet 48 mg PO DAILY RF: 0 Calmoseptine 0.44-20.6 % Ointment 1 applic TOPICAL UD PRN (Reason: REDNESS ON BUTT) RF: 0 Probiotic 3 billion cell Capsule 0 cell PO DAILY RF: 0 ramipril 5 mg Capsule 5 mg PO BID RF: 0 B-complex with vitamin C [Super B Complex-Vitamin C] Tablet 1 tab PO HS RF: 0 omega 4-olj-vbs-fish oil [Fish Oil] 1,000 mg (120 mg-180 mg) Capsule 1 cap PO QDD RF: 0 fluticasone propion-salmeterol [Advair Diskus] 250-50 mcg/dose Blister With Device 1 inh INHALATION BID RF: 0 polyethylene glycol 3350 [Miralax] 17 gram Powder In Packet 17 g PO QAM RF: 0 oxycodone 10 mg tablet 15 mg PO Q6H PRN (Reason: Pain) RF: 0 fentanyl 37.5 mcg/hour Patch 72 Hour 1 patch TRANSDERMAL Q72H RF: 0 prednisolone acetate 1 % Drops,Suspension 1 drp OPHTHALMIC (EYE) QID RF: 0 nystatin 100,000 unit/gram Cream 1 applic TOPICAL BID RF: 0 diclofenac sodium 1 % Gel 2 g TOPICAL BID RF: 0 magnesium oxide 400 mg (241.3 mg magnesium) Tablet 400 mg PO BID 30 Days Qty: 60 RF: 1 cholecalciferol (vitamin D3) 2,000 unit tablet 2,000 units PO DAILY Qty: 30 RF: 1 multivitamin Tablet 1 tab PO DAILY RF: 0 acetaminophen [Tylenol Extra Strength] 500 mg Tablet 1,000 mg PO Q6H PRN (Reason: Pain) RF: 0 Changed torsemide 20 mg tablet 20 mg PO UD Qty: 30 RF: 3 Discontinued sulfamethoxazole-trimethoprim [Bactrim DS] 800-160 mg tablet 1 tab PO BID RF: 0 cephalexin [Keflex] 500 mg capsule 500 mg PO TID RF: 0 celecoxib [Celebrex] 200 mg Capsule 200 mg PO BID PRN (Reason: Pain) RF: 0 Discharge Orders: Discharge Order (Routine); Ordered 11/01/19 Ordered By: Charissa Doty Admission Data Admit Date/Time: 10/30/19 00:07 Attending Provider: Charissa Doty Admit Provider: Donovan Carey Primary Care Provider: Mohan Perry Other Providers: Donovan Carey Other Interventions: Discharge Summary Assessment (RN) Last Done: 11/01/19 16:07 DC Date/Time DO NOT enter until pt leaves facility: 11/01/19 17:12
== END 2019-11-01 17:12 | disposition home health service (06) | DRG 682 ==
LOC: ED 19:25 → SUATTDRO 10-30 00:07 → 2W 10-30 00:07

== ENCOUNTER 2019-11-06 00:14 | Inpatient (IN) ==
[2019-11-06 01:12] LABS: Basophils # (auto) 0.07 K/uL (0-0.2); Basophils % (auto) 0.5 %; Eosinophils # (auto) 0.24 K/uL (0-0.5); Eosinophils % (auto) 1.9 %; Hematocrit (blood only) 41.2 % (42-52); Hemoglobin 13.7 g/dL (14.0-18.0); Immature Granulocytes # (auto) 0.06 K/uL (0.00-0.02); Immature Granulocytes % (auto) 0.5 %; Lymphocytes # (auto) 2.05 K/uL (1.2-3.4); Mean Corpuscular Hemoglobin 28.5 pg (25-34); Mean Corpuscular Hgb Conc 33.3 g/dL (32-36); Mean Corpuscular Volume 85.7 fL (80-100); Mean Platelet Volume 11.3 fL (7.4-10.4); Monocytes # (auto) 0.99 K/uL (0.11-0.59); Monocytes % (auto) 7.7 %; Neutrophils # (auto) 9.38 K/uL (1.4-6.5); Neutrophils % (auto) 73.4 %; Platelet Count 220 K/uL (130-400); RDW Standard Deviation 49.8 fL (36.4-46.3); Red Blood Count 4.81 M/uL (4.7-6.1); White Blood Count 12.79 K/uL (4.8-10.8)
[2019-11-06 01:18] LABS: Appearance Urine Clear (Clear); Bacteria Urine Automated Negative (Negative); Bilirubin Urine Negative (Negative); Blood Urine Negative (Negative); Cast Urine Automated 0 /lpf (0-5); Color Urine Dark Yellow; Epithelial Cell Urine Auto 0-5 /lpf (0-5); Glucose Urine UA 3+ (Negative); Ketones Urine Negative (Negative); Leukocyte Esterase Urine Negative (Negative); Nitrite Urine Negative (Negative); Protein Urine 1+ (Negative); RBC Urine Automated 0-4 /hpf (0-4); Specific Gravity Urine 1.021 (1.000-1.030); Urobilinogen Urine Negative (Negative); WBC Urine Automated 0 /hpf (0-5)
[2019-11-06 01:31] LABS: Alanine Aminotransferase 35 U/L (12-78); Albumin Level 3.3 gm/dl (3.4-5.0); Aspartate Aminotransferase 21 U/L (15-37); BUN Creatinine Ratio 35.9 (10-20); Bilirubin Direct < 0.1 mg/dl (0-0.2); Blood Urea Nitrogen 48 mg/dl (7-18); Calcium 9.5 mg/dl (8.5-10.1); Carbon Dioxide 29 mmol/L (21-32); Chloride 100 mmol/L (98-107); Est GFR (African American) 60.4; Est GFR (Non-African American) 52.1; Glucose 210 mg/dl (70-99); Magnesium 1.9 mg/dl (1.8-2.4); Potassium 4.3 mmol/L (3.5-5.1); Sodium 136 mmol/L (136-145)
[2019-11-06 01:36] LABS: Alkaline Phosphatase 136 U/L (45-117); Bilirubin,Total 0.3 mg/dl (0.2-1); Total Protein 7.8 gm/dl (6.4-8.2); Troponin I < 0.015 ng/ml (0-0.045)
[2019-11-06] MEDS ORDERED: cefTRIAXone SODIUM 2,000 MG/70 ML BAG IV STA (01:42)
[2019-11-06] MEDS ORDERED: VANCOMYCIN CONSULT ACTIVE PRN ×2 (01:42→04:07)
[2019-11-06] MEDS ORDERED: VANCOMYCIN HCL 2,000 MG in SODIUM CHLORIDE 0.9% 500 ML IV ONE (01:42)
[2019-11-06] MEDS ORDERED: SODIUM CHLORIDE 0.9% 1000ML 1,000 ML IV ONE (01:48)
[2019-11-06] MEDS ORDERED: ONDANSETRON INJ 2 MG/ML 2 ML VIAL IV PRN (04:07)
[2019-11-06] MEDS ORDERED: VANCOMYCIN HCL 1,000 MG in SODIUM CHLORIDE 0.9% 250 ML IV SCH (04:07)
[2019-11-06] MEDS ORDERED: ACETAMINOPHEN 325 MG TAB PO PRN (04:07)
[2019-11-06] MEDS ORDERED: NYSTATIN CR 15 GM TUBE EXT PRN (04:07)
[2019-11-06] MEDS ORDERED: ALBUTEROL HFA 8 GM INHALER INH PRN (04:07)
[2019-11-06] MEDS ORDERED: NON-FORMULARY MEDICATION (Fentanyl 1 PATCH) TD SCH (04:07)
[2019-11-06] MEDS: SODIUM CHLORIDE 0.9% 1000ML 1,000 ML IV SCH ×3 (04:40→23:31)
[2019-11-06] MEDS ORDERED: CEFEPIME CONSULT ACTIVE PRN (05:00)
[2019-11-06] MEDS: OXYCODONE HCL IR 5 MG TAB (IMMEDIATE RELEASE) PO PRN ×4 (05:02→23:38)
[2019-11-06] MEDS ORDERED: prednisoLONE acetate 1% OP SUSP 5 ML BTL OP PRN (05:13)
[2019-11-06] MEDS ORDERED: CARBOHYDRATES FOR HYPOGLYCEMIA PO PRN (05:15)
[2019-11-06] MEDS ORDERED: GLUCAGON FOR INJ 1 MG VIAL IM PRN (05:15)
[2019-11-06] MEDS ORDERED: DEXTROSE 50% 50 ML SYRINGE IV PRN (05:15)
[2019-11-06] MEDS ORDERED: GLUCOSE 10 TABS/TUBE PO PRN (05:15)
[2019-11-06] MEDS ORDERED: GLUCOSE 40% GEL 15 GM TUBE PO PRN (05:15)
--- NOTE | 2019-11-06 05:49 | History and Physical Report ---
DATE OF ADMISSION: 11/06/2019 CHIEF COMPLAINT: Right foot infection. HISTORY OF PRESENT ILLNESS: This is a 74-year-old male with past medical history significant for type 2 diabetes; hypertriglyceridemia; hyperlipidemia; peripheral vascular disease; COPD; moderate lung nodule; chronic kidney disease stage III; morbid obesity; GERD; BPH; bilateral foot drops; history of partial amputation of the left toe; left rotator cuff arthropathy; lumbar back pain; radiculopathy affecting left lower extremity; Ftjfomd-Gekon-Nuewj disease; tobacco disorder; degenerative cervical spinal stenosis; AFib, atrial flutter, on Eliquis; chronic pain, on narcotics; bilateral lower extremity venous ulcers. He has been having infection of the right great toe about a month now, initially treated with Bactrim and Keflex, but had developed renal failure and hyperkalemia with Bactrim. He was admitted to the hospital on 10/28/2019 because of fall and some lethargy and thought to be from toe infection and TIO from Bactrim and the antibiotic was changed to Keflex and doxycycline and he seemed to be improved. At that time, he also had hyperkalemia, which improved with discontinuation of Bactrim and fluids and he was discharged back home with Keflex, but it was not getting better, so he came to the ER early in the morning on 11/05/2019 and he was advised to get admitted to the hospital for IV antibiotics. The patient wanted to go home and discharged on oral doxycycline and Omnicef. He lives alone. He is wheelchair bound. He walks few steps. He has a caregiver who comes home daily, but last few days, his daughter is living with him.He was notified to come back to ER if anything changes, but in the evening again he was developing some low-grade fever about 99.5 and also having some chills and the daughter brought him to the hospital again. His lab work showed white count of 12.7 and lactate 3. So we are called for admission. Currently resting comfortably and hemodynamically stable. He is afebrile. He is also having decubitus ulcers in the sacral region. He has some superficial wounds in the left lower extremity from bumping into things and has some blisters on his right big toe and second toe and some erythematous changes in the foot. Otherwise, he is doing okay. Denies any headache. No blurred vision, double vision. No earache, no runny nose, no sore throat, no cough. Appetite is okay. No dysphagia, no odynophagia. No chest pain, no shortness of breath, no nausea, no vomiting, no abdominal pain. Normal bowel and bladder movements. No blood in stool or black stools. No hematuria or burning micturition. ALLERGIES: PENICILLIN, BACTRIM. PAST MEDICAL HISTORY: As mentioned above. PAST SURGICAL HISTORY: Colonoscopy with polypectomy, EGDs, laparoscopic cholecystectomy with cholangiography, nerve block in the right ribs, neck spine fusion surgery below C2, partial amputation of the left big toe, reconstructions of nose septum in high school after fracture, cataract surgeries. MEDICATIONS: Currently, the patient is on Tylenol Extra Strength 1000 mg p.o. q. 6 hours p.r.n., albuterol 2 puffs q. 6 hours p.r.n., ascorbic acid 1000 mg p.o. a.m., aspirin 81 mg p.o. a.m., atorvastatin 20 mg p.o. daily, B complex with vitamin C 1 tablet p.o. at bedtime, cefdinir 300 mg p.o. b.i.d., vitamin D 1000 units p.o. daily, diclofenac sodium 2 g topically b.i.d., digoxin 125 mcg p.o. daily, doxycycline 100 mg p.o. b.i.d., Eliquis 5 mg p.o. b.i.d., fenofibrate 48 mg p.o. daily, fentanyl patch q. 72 hours, finasteride 5 mg p.o. daily, Advair Diskus one inhalation b.i.d., glimepiride 4 mg p.o. a.m., Jardiance 10 mg p.o. a.m., lidocaine patch topical as directed, magnesium 400 mg p.o. b.i.d., metformin 1000 mg p.o. b.i.d., Toprol-XL 12.5 mg p.o. b.i.d., multivitamin 1 tablet daily, nystatin topical b.i.d. p.r.n., omega 3 fish oil 1 capsule daily, omeprazole 40 mg p.o. daily, oxycodone 50 mg p.o. q. 6 hours p.r.n., MiraLax 17 grams p.o. daily, pravastatin 20 mg p.o. daily, prednisolone acetate 1 drop ophthalmic q.i.d. p.r.n., Lyrica 25 mg p.o. t.i.d., probiotic daily, ramipril 5 mg p.o. b.i.d., torsemide 20 mg p.o. Tuesday, Tuesday, Tuesday. FAMILY HISTORY: Significant for mother had CAD, COPD; daughter has Vundzmw-Eomqv-Cepbr disease. SOCIAL HISTORY: , lives alone, has caregiver. Smokes on average half pack a day for 57 years. Alcohol rarely. No drug use. REVIEW OF SYSTEMS: As per HPI. Rest of review of systems negative. PHYSICAL EXAMINATION: GENERAL: The patient is obese, currently not in acute distress. VITAL SIGNS: Temperature 36.5, pulse 78, respiratory rate 18, blood pressure 107/58, oxygen 92% on room air. HEENT: No pallor, no icterus. NECK: No JVD, no neck masses. CARDIOVASCULAR: S1, S2 heard, regular rate and rhythm, no murmur, no gallop. RESPIRATORY SYSTEM: Normal AP diameter. No accessory muscle use. No wheezing, no crackles. ABDOMEN: Soft, bowel sounds present, nontender. No distention. CENTRAL NERVOUS SYSTEM: Alert and oriented. Obeys commands. Moves extremities. EXTREMITIES: Multiple finger joints deformity secondary to patient's known diagnosis of Cegnxnt-Aljmc-Uyisl. Wound in the right great toe with some blisters seen and also some blisters in the right second toe and left lower extremity has some superficial wounds. No drainage seen. Lower extremity edema present. SKIN: Stage II sacral decubitus ulcer present. LABORATORY DATA: WBC 12.7, hemoglobin 13.7, hematocrit 41.2, platelets 220. Sodium 136, potassium 4.3, chloride 100, bicarbonate 29, BUN 48, creatinine 1.35. Serum glucose 210. Lactate 3, calcium 9.5, magnesium 1.9, total bilirubin 0.3, direct bilirubin less than 0.1, AST 21, ALT 35, alkaline phosphatase 136. Troponin I less than 0.015. Urinalysis, +3 glucose. Digoxin 0.9. ASSESSMENT AND PLAN: This is a 74-year-old male who presents with ongoing infection of the right great toe. 1. Ongoing infection of great toe and also cellulitis that started in the right foot, superficial wounds on the left lower extremity from the bumping on things and also stage II sacral decubitus ulcer, history of VRE in the past as per daughter. Lactic acid 3 in the ER. Though his hemodynamics are stable, possible early sepsis with elevated lactic acid and elevated white count and ongoing infection. We will empirically treat him with IV cefepime and IV vancomycin. Blood cultures drawn in the ER when he came in the morning. We will follow the cultures. Because of his ongoing infection, not responding to oral antibiotics, we will consult ID in the a.m. for further recommendations. The patient states if he needs IV antibiotics, he wants to go home with IV antibiotics. Social service to help with discharge planning. 2. Diabetes. We will hold his home p.o. medication, place on Lantus 8 units b.i.d. and insulin sliding scale and follow his blood sugars. 3. Chronic pain syndrome. Continue his home fentanyl patch and oxycodone p.r.n. 4. Diabetic peripheral neuropathy. Continue pregabalin. 5. History of paroxysmal atrial fibrillation, rate controlled with Toprol-XL, digoxin. Continue his Eliquis. 6. Ambulatory dysfunction. Using a wheelchair, has help at home and history of falls. PT and OT when stable. 7. History of Afegatn-Vozkx-Vfzip disease. Needs followup with systems consultant. 8. Chronic kidney disease stage III, baseline creatinine of 1.3. Has lower extremity edema, on torsemide, which will continue. 9. Hyperlipidemia, on fenofibrate and statin. 10. Benign prostatic hypertrophy, on Proscar. 11. Hypertension, on Toprol-XL, ramipril. We will monitor his blood pressure. 12. History of chronic obstructive pulmonary disease. Continue home inhalers, currently stable. 13. Peripheral vascular disease, on statin and Eliquis. 14. Deep venous thrombosis prophylaxis, on Eliquis. 15. Disposition: Admit to medical floor. Expect to discharge home and follow with his family doctor. Level 1 full code. Social service to help with discharge planning. We will follow the repeat lactic acid. MTDD
[2019-11-06] MEDS ORDERED: CEFEPIME 2,000 MG in SYRINGE 7.5 ML IV SCH (06:00)
--- NOTE | 2019-11-06 06:05 | Emergency Department Note ---
Entered by Shiv Polo acting as a scribe for ED Provider Note Name: Ray Cherry Age: 74 Arrives Via: Walk in Informant: Patient CC: Right leg redness HPI: The patient is a 74 year old male who presents to the emergency department with complaints of worsening right leg redness beginning today. The patient states that he has had an infection on his right big toe for a few weeks. He notes that he came into the emergency department today, but he reports that he was discharged home. The patient states that his right leg has been getting r luc since discharge. He notes that he is on Doxycycline and Cefdinir. He reports that he as on Keflex until today, and he states that he just started Doxycycline today. He also complains of a low fever. He denies any pain, vomiting, LOC, SOB, CP, diarrhea, and urinary/bowel issues. ROS: See above HPI for pertinent positives & negatives. A total of 10 systems reviewed and were otherwise negative. Past Medical History: Please see past medical history Past Surgical History: Tonsillectomy, cervical spinal fusion, cholecystectomy Family History: CAD, COPD Social History: Lives in personal care facility, retired, current some day smoker, does not use alcohol/drugs Home Medications: Please see medication list Allergies: Penicillin, sulfamethoxazole, trimethoprim Physical: Vitals: BP 121/65, Pulse 79, Resp 20, Temp 97.7 F, O2 Sat 97 Exam: GENERAL: Patient is chronically unwell appearing and in minimal distress. EYES: No scleral icterus, unremarkable pupils. ENT: Mucous membranes moist, no nasal congestion. NECK: No masses appreciated, no meningismus, trachea is midline. RESPIRATORY: No dyspnea. Clear to auscultation and equal bilaterally. No wheeze, no rhonchi. CARDIOVASCULAR: Regular rate and rhythm. No murmurs, rubs, gallops appreciated. GASTROINTESTINAL: Abdomen soft, non-tender, no peritonitis. Bowel sounds positive. No masses appreciated. BACK: No midline tenderness, no CVA tenderness EXTREMITIES: Normal motion all extremities, no cyanosis. Erythema of right lower leg from just below the knee to the toes, anterior can primarily, right foot has swelling and erythema of most of toes with drainage from multiple spots on the right great toe including under the nail bed, multiple ulcerations and blisters of the foot, moderate edema of bilateral feet, wound dressing over left lower leg. NEUROLOGIC: Alert and oriented, no acute motor or sensory deficits, no focal weakness, cranial nerves grossly intact. SKIN: No rash, no jaundice, no diaphoresis. ED Course: Prior Medical Record, Triage/Nursing Notes, Medications, Allergies reviewed by Me 0031: The patient was evaluated in room B9. A complete history and physical exam was performed. 0036: Per review of EMR, the patient has no wound cultures in the system. Labs earlier today showed an elevated lactic acid. The patient has no foot X-rays within the system. 0142: [facility]. [facility], was paged. 0153: Upon reevaluation, the patient is stable. I discussed the findings and the treatment plan with the patient. She expresses agreement and understanding. [facility] The patient will be evaluated for further management. Vital Signs: reviewed and remarkable for wnl Labs: Reviewed and remarkable for +lactic acidosis Interventions: Saline lock, nss bolus, rocephin IV, Vanco IV Imaging: TOE X-RAY: Xray Results per my interpretation: 3 view, severe arthritic changes and deformity with difficulty ruling out evidence of osteo Consults: 0153: I [facility] the [facility] will evaluate the patient for further management. Blood pressure: Normal. No Referral necessary Disposition: Hospitalization Medical Decision Makin yr old chronically unwell male with DMII, CMT Dz, chronic pain, PAF, GERD, HTN, COPD, HLP, amongst others. Admitted last week after syncope and right foot infection in setting of acute renal failure on bactrim. Improving in hospital and infection resolving on doxy/keflex. Discharged 4 days ago on keflex and since infection worsening. Seen this morning and advised to stay though he declined. He looks dehydrated and labs with elevated lactic acid which is above his baseline. Fluids started though will hold on 30ml/kg bolus given concerns for overload and fact BP and HR good without him looking severe sepsis. Infection of toe is quite poor and now with spreading up leg. Vanco/Rocephin for coverage. He will need to come in for further management. Impression: Right foot cellulitis Right toe infection Failure of outpatient therapy hyperglycemia and lactic acidosis Lamberto Mandujano MD The scribe's documentation has been prepared under my direction and personally reviewed by me in its entirety. I confirm that the note above accurately reflects all work, treatment, procedures, and medical decision making performed by me. Impression & Plan Cellulitis of foot, right, Infection of toe, Failure of outpatient treatment, Hyperglycemia, Acidosis, lactic Past Med/Surg History Medical History 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) Acquired hallux valgus of right foot (Chronic) TIO (acute kidney injury) Choledocholithiasis CMT (Bgjqios-Kpkul-Nfcuu disease) (Chronic) COPD (chronic obstructive pulmonary disease) (Chronic) Degenerative disc disease Diabetes mellitus with diabetic polyneuropathy (Chronic) Diabetic peripheral neuropathy associated with type 2 diabetes mellitus (Chronic) DMII (diabetes mellitus, type 2) Gastroesophageal reflux disease (Acute) Hallux valgus (acquired), left foot (Chronic) History of infection with vancomycin resistant Enterococcus (VRE) Hyperlipidemia (Chronic) Hypertensive heart disease (Acute) Left foot drop (Chronic) Multiple closed fractures of ribs of left side (Acute) Renal failure (Acute) Right foot drop (Chronic) Spinal stenosis, lumbar region with neurogenic claudication (Chronic) Tobacco user (Acute 09/27/11) Surgical History Hx of tonsillectomy (Chronic) S/P cataract extraction (Resolved) S/P cervical spinal fusion (Chronic) S/P foot surgery, right (Resolved) Status post cholecystectomy (Chronic) Social History Preferred Language: Uzbek Communication Ability: Effective Visual Impairment: Limited Hearing Ability: Hard of Hearing Cement Handler Required: No Beliefs That Will Affect Care: None marital status: Unknown Current Living Situation: Alone and Other Current Living Situation Comment: "55 and older community" current occupational status: retired Other Information That Helps Us Care for You: No Feels Safe at Home: Yes Safety Concerns: Feels Safe At This Time Smoking Status: Former smoker Tobacco Type: cigarettes ; packs per day: 0.5 ; Cigarettes Per Day: 1 every two weeks ; Do You Dip or Chew Tobacco: No ; Second Hand Exposure: No ; Hx Alcohol Use: No Hx Substance Use: No Results & Data Vital Signs Vital Signs - 24 hr 11/06/19 00:22 11/06/19 01:56 Temperature 36.5 C Temperature Source Oral Pulse Rate 79 Pulse Rate [Apical] 78 Respiratory Rate 20 18 Blood Pressure 121/65 Blood Pressure [Left Arm] 107/58 L Blood Pressure Mean 83 Blood Pressure Mean [Left Arm] 74 Blood Pressure Position Sitting Pulse Oximetry 97 92 Oxygen Delivery Method Room Air Room Air Sepsis Recent Fever Within 48 Hours No Sepsis Action Taken by Nursing No Action Required Home Medications Current Medication List: was personally reviewed by me Laboratory Data Attestation: I reviewed the patient's lab results. Result diagrams: 11/06/19 00:37 11/06/19 00:37 Lab Results 11/06/19 11/06/19 11/06/19 Range/Units 00:37 00:37 00:37 WBC 12.79 H (4.8-10.8) K/uL RBC 4.81 (4.7-6.1) M/uL Hgb 13.7 L (14.0-18.0) g/dL Hct 41.2 L (42-52) % MCV 85.7 (80-100) fL MCH 28.5 (25-34) pg MCHC 33.3 (32-36) g/dL RDW Std Deviation 49.8 H (36.4-46.3) fL RDW Coeff of Naomi 16.0 H (11.5-14.5) % Plt Count 220 (130-400) K/uL MPV 11.3 H (7.4-10.4) fL Immature Gran % (Auto) 0.5 % Neut % (Auto) 73.4 % Lymph % (Auto) 16.0 % [place] % (Auto) 7.7 % Eos % (Auto) 1.9 % Baso % (Auto) 0.5 % Immature Gran # (Auto) 0.06 H (0.00-0.02) K/uL Neut # (Auto) 9.38 H (1.4-6.5) K/uL Lymph # (Auto) 2.05 (1.2-3.4) K/uL Denali # (Auto) 0.99 H (0.11-0.59) K/uL Eos # (Auto) 0.24 (0-0.5) K/uL Baso # (Auto) 0.07 (0-0.2) K/uL Sodium 136 (136-145) mmol/L Potassium 4.3 (3.5-5.1) mmol/L Chloride 100 (98-107) mmol/L Carbon Dioxide 29 (21-32) mmol/L Anion Gap 7.0 (3-11) BUN 48 H (7-18) mg/dl Creatinine 1.35 (0.6-1.4) mg/dl Est Cr Clr Drug Dosing Not Reportable Est GFR ( Amer) 60.4 Est GFR (Non-Af Amer) 52.1 BUN/Creatinine Ratio 35.9 H (10-20) Glucose 210 H (70-99) mg/dl Lactate (0.4-2.0) mmol/L Calcium 9.5 (8.5-10.1) mg/dl Magnesium 1.9 (1.8-2.4) mg/dl Total Bilirubin 0.3 (0.2-1) mg/dl Direct Bilirubin < 0.1 (0-0.2) mg/dl AST 21 (15-37) U/L ALT 35 (12-78) U/L Alkaline Phosphatase 136 H (45-117) U/L Troponin I < 0.015 (0-0.045) ng/ml Total Protein 7.8 (6.4-8.2) gm/dl Albumin 3.3 L (3.4-5.0) gm/dl Urine Color Urine Appearance (Clear) Urine pH (4.5-7.5) Ur Specific [place] (1.000-1.030) Urine Protein (Negative) Urine Glucose (UA) (Negative) Urine Ketones (Negative) Urine Blood (Negative) Urine Nitrite (Negative) Urine Bilirubin (Negative) Urine Urobilinogen (Negative) Ur Leukocyte Esterase (Negative) Urine WBC (Auto) (0-5) /hpf Urine RBC (Auto) (0-4) /hpf U Hyaline Cast (Auto) (0-5) /lpf U Epithel Cells (Auto) (0-5) /lpf Urine Bacteria (Auto) (Negative) Digoxin 0.9 (0.8-2.0) ng/ml 11/06/19 11/06/19 Range/Units 01:04 01:05 WBC (4.8-10.8) K/uL RBC (4.7-6.1) M/uL Hgb (14.0-18.0) g/dL Hct (42-52) % MCV (80-100) fL MCH (25-34) pg MCHC (32-36) g/dL RDW Std Deviation (36.4-46.3) fL RDW Coeff of Naomi (11.5-14.5) % Plt Count (130-400) K/uL MPV (7.4-10.4) fL Immature Gran % (Auto) % Neut % (Auto) % Lymph % (Auto) % Den[place] % (Auto) % Eos % (Auto) % Baso % (Auto) % Immature Gran # (Auto) (0.00-0.02) K/uL Neut # (Auto) (1.4-6.5) K/uL Lymph # (Auto) (1.2-3.4) K/uL Den[place] # (Auto) (0.11-0.59) K/uL Eos # (Auto) (0-0.5) K/uL Baso # (Auto) (0-0.2) K/uL Sodium (136-145) mmol/L Potassium (3.5-5.1) mmol/L Chloride (98-107) mmol/L Carbon Dioxide (21-32) mmol/L Anion Gap (3-11) BUN (7-18) mg/dl Creatinine (0.6-1.4) mg/dl Est Cr Clr Drug Dosing Est GFR ( Amer) Est GFR (Non-Af Amer) BUN/Creatinine Ratio (10-20) Glucose (70-99) mg/dl Lactate 3.0 H* (0.4-2.0) mmol/L Calcium (8.5-10.1) mg/dl Magnesium (1.8-2.4) mg/dl Total Bilirubin (0.2-1) mg/dl Direct Bilirubin (0-0.2) mg/dl AST (15-37) U/L ALT (12-78) U/L Alkaline Phosphatase (45-117) U/L Troponin I (0-0.045) ng/ml Total Protein (6.4-8.2) gm/dl Albumin (3.4-5.0) gm/dl Urine Color Dark Yellow Urine Appearance Clear (Clear) Urine pH 5.0 (4.5-7.5) Ur Specific [place] 1.021 (1.000-1.030) Urine Protein 1+ H (Negative) Urine Glucose (UA) 3+ H (Negative) Urine Ketones Negative (Negative) Urine Blood Negative (Negative) Urine Nitrite Negative (Negative) Urine Bilirubin Negative (Negative) Urine Urobilinogen Negative (Negative) Ur Leukocyte Esterase Negative (Negative) Urine WBC (Auto) 0 (0-5) /hpf Urine RBC (Auto) 0-4 (0-4) /hpf U Hyaline Cast (Auto) 0 (0-5) /lpf U Epithel Cells (Auto) 0-5 (0-5) /lpf Urine Bacteria (Auto) Negative (Negative) Digoxin (0.8-2.0) ng/ml Administered Medications Cefepime HCl 2,000 mg/ Syringe 20 mls @ 5.5 mls/min IV Q24H BETHANY; Protocol Stop: 11/16/19 05:59 Last Admin: 11/06/19 05:51 Dose: 5.5 mls/min Documented by: [id number] Sodium Chloride (Nss 1000ml) 1,000 mls @ 100 mls/hr IV .Q10H BETHANY Stop: 12/06/19 04:06 Last Admin: 11/06/19 04:40 Dose: 100 mls/hr Documented by: [id number] Oxycodone HCl (Roxicodone Immediate Rel) 15 mg PO Q6H PRN PRN Reason: Pain Stop: 11/20/19 04:06 Last Admin: 11/06/19 05:02 Dose: 15 mg Documented by: [id number] Discontinued Medications Vancomycin HCl 2,000 mg/ (Sodium Chloride) 540 mls @ 200 mls/hr IV NOW ONE Stop: 11/06/19 04:11 Last Infusion: 11/06/19 05:19 Dose: 0 mls/hr Documented by: [id number] Admin: 11/06/19 02:25 Dose: 200 mls/hr Documented by: [id number] Ceftriaxone Sodium (Rocephin) 2,000 mg in 70 mls @ 140 mls/hr IV NOW STA Stop: 11/06/19 02:11 Last Infusion: 11/06/19 03:40 Dose: 0 mls/hr Documented by: [id number] Admin: 11/06/19 01:50 Dose: 140 mls/hr Documented by: [id number] Sodium Chloride (Nss 1000ml) 1,000 mls @ 999 mls/hr IV .Q1H1M ONE Stop: 11/06/19 02:48 Last Infusion: 11/06/19 03:39 Dose: 0 mls/hr Documented by: [id number] Admin: 11/06/19 01:50 Dose: 999 mls/hr Documented by: [id number] Discharge Plan Visit Data *Final* Discharge Date/Time: 11/06/19 03:36 Chief Complaint: Fever Stated Complaint: FEVER,CHILLS,CELLULITIS-HERE EARLIER TODAY ED Provider: Lamberto Mandujano Discharge Problem: Cellulitis of foot, right, Infection of toe, Failure of outpatient treatment, Hyperglycemia, Acidosis, lactic Patient Disposition: Admitted As Inpatient Discharge Instructions Interventions: ED Discharge Assessment Last Done: 11/06/19 03:36 The scribe's documentation has been prepared under my direction and personally reviewed by me in its entirety. I confirm that the note above accurately refl ects all work, treatment, procedures, and medical decision making performed by me.
--- NOTE | 2019-11-06 06:43 | XRay Report ---
XR toe(s) RT min 2V CLINICAL HISTORY: infection multiple right toes COMPARISON: Right foot radiographs January 14, 2012. FINDINGS: Chronic deformity of multiple metatarsophalangeal joints is noted. Irregularity of the seco nd and third metatarsal heads is unchanged since radiographs of January 06, 2020. There is fusion of th e interphalangeal joint of the right great toe. No acute fracture is noted. No soft tissue gas is not ed. There is soft tissue swelling. There is moderate osteoarthritis of the right first metatarsophala ngeal joint. Tarsometatarsal joints are intact. There is no definite bony destruction to suggest oste omyelitis by radiography. IMPRESSION: 1. Chronic deformity of multiple metatarsophalangeal joints and the second and third metatarsal heads which is unchanged since radiographs of January 14, 2012. 2. Moderate osteoarthritis within multiple articulations. 3. No definite bony destruction to suggest osteomyelitis by radiography. ACT 112: Negative or not required by law. Electronically signed by: Darwin Bedolla M.D. 11/06/2019 6:41 AM
--- NOTE | 2019-11-06 08:44 | Pharmacy Report ---
Pharmacy Abx Initial Consult - Date of Service November 06, 2019 - Pharmacy Dosing Scope Date of Consult: 11/06/2019 Consultation requested by: Dr. Eckert Pharmacy is consulted to initiate vancomycin and cefepime IV dosing therapy, order appropriate labs and adjust drug dose/frequency. - Subjective The patient is a 74 year old M admitted on 11/06/19 02:45 with worsening foot infection. - Objective Height: 5 ft 5 in Weight: 106.5 kg Vital Signs (Past 12hrs): Vital Signs Temp Pulse Pulse Pulse Resp BP BP 11/06/19 07:45 36.5 C 78 16 119/62 11/06/19 04:10 36.8 C 73 16 11/06/19 01:56 78 18 107/58 L 11/06/19 00:22 36.5 C 79 20 121/65 BP Pulse Ox 11/06/19 07:45 94 11/06/19 04:10 130/71 94 11/06/19 01:56 92 11/06/19 00:22 97 Lab Results (24hrs): Laboratory Tests (24 Hours) 11/06/19 11/06/19 00:37 00:37 WBC 12.79 H Neut # (Auto) 9.38 H Creatinine 1.35 Est Cr Clr Drug Dosing Not Reportable Micro Results: 11/06/19 01:15 Aerobic Blood Culture - Pending Blood Anaerobic Blood Culture - Pending 11/06/19 00:37 Aerobic Blood Culture - Pending Blood Anaerobic Blood Culture - Pending - Risk Factors for Resistance * Hospitalization for 48 hours or more within the past 90 days * Antimicrobial use within the last 90 days (keflex) - Assessment & Plan Assessment 74 year old M admitted with worsening cellulitis. Plan vancomycin/cefepime for treatment of worsening cellulitis Vancomycin IV * Estimated PK Parameters: Vd 0.65 L/kg, Hamzah 0.047 hr-1, t1/2 14.7 hr * Loading dose: 2000 mg (19 mg/kg) * Maintenance dose: 1250 mg IV (11.6 mg/kg) every 16 hours * Goal trough level for cellulitis : ~15 mcg/mL * Trough ordered for 11/07/2019 prior to 3rd dose to ensure no accumulation. * A less than traditional dose has been selected due to likelihood of drug accumulation in obese patient. Cefepime * Target dose = 2 gm IV q8 hours .... for creatinine clearance 30-60 mL/min c hange dose to cefepime 2 gm IV q12 hours. Pharmacy will continue to follow and will adjust dose/frequency as necessary. Thank you.
[2019-11-06] MEDS ORDERED: LACTOBACILLUS COMBINATION NO 4 PO SCH (09:00)
[2019-11-06] MEDS ORDERED: fentaNYL 12 MCG/HR TDSY TD SCH (09:00)
[2019-11-06] MEDS: FLUTICASONE/VILANTEROL 100/25MCG 14 PUFFS/INHALER INH SCH (09:01)
[2019-11-06] MEDS: POLYETHYLENE (MIRALAX) 17 GM PACK PO SCH (09:01)
[2019-11-06] MEDS: CHOLECALCIFEROL 1,000 UNITS 25 MCG TAB PO SCH (09:02)
[2019-11-06] MEDS: ENALAPRIL MALEATE 10 MG TAB PO SCH ×2 (09:02→21:18)
[2019-11-06] MEDS: ASCORBIC ACID 500 MG TAB PO SCH (09:02)
[2019-11-06] MEDS: METOPROLOL SUCC 25MG EXT REL TAB PO SCH ×2 (09:02→21:18)
[2019-11-06] MEDS: ASPIRIN 81 MG ECTAB PO SCH (09:02)
[2019-11-06] MEDS: PANTOprazole 40 MG TAB PO SCH (09:02)
[2019-11-06] MEDS: APIXABAN 5 MG TABLET PO SCH ×2 (09:02→21:19)
[2019-11-06] MEDS: FENOFIBRATE NANOCRYSTALLIZED 48 MG TABLET PO SCH (09:02)
[2019-11-06] MEDS: MAGNESIUM OXIDE 400 MG TAB PO SCH ×2 (09:02→21:20)
[2019-11-06] MEDS: PRAVASTATIN SOD 20 MG TAB PO SCH (09:03)
[2019-11-06] MEDS: LIDOCAINE 5% 1 PATCH TD SCH (09:03)
[2019-11-06] MEDS: PREGABALIN 25 MG CAP PO SCH ×3 (09:03→21:32)
[2019-11-06] MEDS: ATORVASTATIN 20 MG TAB PO SCH (09:03)
[2019-11-06] MEDS: MULTIVITAMIN TAB PO SCH (09:03)
[2019-11-06] MEDS: CHECK FENTANYL PATCH PLACEMENT SCH ×6 (09:08→23:39)
[2019-11-06] MEDS: DICLOFENAC SOD 1% GEL 100 GM TUBE EXT SCH ×2 (09:09→21:17)
[2019-11-06] MEDS: INSULIN GLARGINE SOLOSTAR 100 UNITS/ML 3 ML PEN SC SCH ×2 (09:11→21:21)
[2019-11-06] MEDS: INSULIN ASPART 100 UNITS/ML 3 ML PEN SC SCH ×4 (09:12→21:22)
--- NOTE | 2019-11-06 14:07 | Infectious Disease Consult ---
Date of Consultation November 06, 2019 Assessment & Plan (1) Cellulitis of foot, right: can continue IV abx for now, follow blood cultures, if negative, would suggest resume outpt po abx or would suggest IV Dalvance x 2 at [facility] post d/c. History of Present Illness Attending Physician: Charissa Doty MD pt admitted wtih left leg ulcers. has been on multiple po abx recently, tmp, keflex, doxy, omnicef. Does not follow with ID at [facility]. states he follows with [facility]. does not appear to follow with wound center either. he does not know who is managing wounds, only states he has [facility] home nursing at his house. He was in ER yesterday and was d/c home returned later in the day with pain, and was admitted for IV abx. states today he is feeling better and would like to be d/c home with IV abx. 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 blood cultures pending. denies f/c. no abd pain, no n/v/d. denies pain or drainage from wounds currenlty. no wound eval pending. afebrile. on cefepime and vanco, wbc 12, no wound culture obtained, x ray unchanged from 2011, no osteo. Allergies Allergy/AdvReac Type Severity Reaction Status Date / Time Penicillins Allergy Intermediate RASH Verified 11/06/19 01:27 sulfamethoxazole AdvReac Mild arf, Verified 11/06/19 01:27 [From Bactrim] hyperkalemia trimethoprim [From Bactrim] AdvReac Mild arf, Verified 11/06/19 01:27 hyperkalemia Home Medications Home Medications Medication Instructions Recorded Confirmed Type Eliquis 5 mg PO BID 01/06/19 11/06/19 History Jardiance 10 mg PO QAM 01/06/19 11/06/19 History albuterol sulfate [Ventolin HFA] 2 puff INHALATION Q6H PRN 01/06/19 11/06/19 History ascorbic acid (vitamin C) [Vitamin 1,000 mg PO QAM 01/06/19 11/06/19 History C] aspirin 81 mg PO QAM 01/06/19 11/06/19 History digoxin [Digox] 125 mcg PO DAILY@1600 01/06/19 11/06/19 History finasteride 5 mg PO QDD 01/06/19 11/06/19 History glimepiride 4 mg PO QAM 01/06/19 11/06/19 History metformin 1,000 mg PO BID 01/06/19 11/06/19 History metoprolol succinate 12.5 mg PO BID 01/06/19 11/06/19 History omeprazole 40 mg PO QAM 01/06/19 11/06/19 History pregabalin [Lyrica] 25 mg PO TID 01/06/19 11/06/19 History B-complex with vitamin C [Super B 1 tab PO HS 07/19/19 11/06/19 History Complex-Vitamin C] fluticasone propion-salmeterol 1 inh INHALATION BID 07/19/19 11/06/19 History [Advair Diskus] omega 1-lxz-hhi-fish oil [Fish Oil] 1 cap PO QDD 07/19/19 11/06/19 History ramipril 5 mg PO BID 07/19/19 11/06/19 History diclofenac sodium 2 g TOPICAL BID 09/27/19 11/06/19 History fentanyl 1 patch TRANSDERMAL Q72H 09/27/19 11/06/19 History nystatin 1 applic TOPICAL BID PRN 09/27/19 11/06/19 History oxycodone 15 mg PO Q6H PRN 09/27/19 11/06/19 History polyethylene glycol 3350 [Miralax] 17 g PO QAM 09/27/19 11/06/19 History prednisolone acetate 1 drp OPHTHALMIC (EYE) QID PRN 09/27/19 11/06/19 History cholecalciferol (vitamin D3) 2,000 units PO DAILY #30 tab 10/02/19 11/06/19 Rx magnesium oxide 400 mg PO BID 30 Days #60 tab 10/02/19 11/06/19 Rx acetaminophen [Tylenol Extra 1,000 mg PO Q6H PRN 10/10/19 11/06/19 History Strength] multivitamin 1 tab PO DAILY 10/10/19 11/06/19 History Probiotic 0 cell PO DAILY 10/29/19 11/06/19 History fenofibrate nanocrystallized 48 mg PO DAILY 10/29/19 11/06/19 History [Tricor] pravastatin [Pravachol] 20 mg PO DAILY 10/29/19 11/06/19 History cefdinir 300 mg PO BID #14 cap 11/05/19 11/06/19 Rx doxycycline hyclate 100 mg PO BID 7 Days #14 tab 11/05/19 11/06/19 Rx lidocaine 1 patch TOPICAL UD 11/05/19 11/06/19 History torsemide 20 mg PO MOWEFR 11/05/19 11/06/19 History atorvastatin 20 mg PO DAILY 11/06/19 11/06/19 History Patient History Medical History 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) Acquired hallux valgus of right foot (Chronic) TIO (acute kidney injury) Choledocholithiasis CMT (Fgtyssf-Hxlfq-Xwjeg disease) (Chronic) COPD (chronic obstructive pulmonary disease) (Chronic) Degenerative disc disease Diabetes mellitus with diabetic polyneuropathy (Chronic) Diabetic peripheral neuropathy associated with type 2 diabetes mellitus (Chronic) DMII (diabetes mellitus, type 2) Gastroesophageal reflux disease (Acute) Hallux valgus (acquired), left foot (Chronic) History of infection with vancomycin resistant Enterococcus (VRE) Hyperlipidemia (Chronic) Hypertensive heart disease (Acute) Left foot drop (Chronic) Multiple closed fractures of ribs of left side (Acute) Renal failure (Acute) Right foot drop (Chronic) Spinal stenosis, lumbar region with neurogenic claudication (Chronic) Tobacco user (Acute 09/27/11) Surgical History Hx of tonsillectomy (Chronic) S/P cataract extraction (Resolved) S/P cervical spinal fusion (Chronic) S/P foot surgery, right (Resolved) Status post cholecystectomy (Chronic) Family History Other COPD (chronic obstructive pulmonary disease) Coronary heart disease Social History Preferred Language: Amharic Communication Ability: Effective Visual Impairment: Limited Hearing Ability: Hard of Hearing Cone Machine Feeder Required: No Beliefs That Will Affect Care: None marital status: Current Living Situation: Alone and Other Current Living Situation Comment: "55 and older community" current occupational status: retired Other Information That Helps Us Care for You: No Feels Safe at Home: Yes Safety Concerns: Feels Safe At This Time Smoking Status: Former smoker Tobacco Type: cigarettes ; packs per day: 0.5 ; Cigarettes Per Day: 1 every two weeks ; Do You Dip or Chew Tobacco: No ; Second Hand Exposure: No ; Hx Alcohol Use: No Hx Substance Use: No Review of Systems Review of Systems: All systems reviewed & are unremarkable except as noted in HPI & below Physical Exam Constitutional: WD/WN, vitals as above Eyes: PERRL, conjunctivae normal, anicteric sclerae ENMT: external ear and nose normal, oropharynx normal Neck: normal visual inspection Respiratory: normal respiratory effort, lungs clear to auscultation Cardiovascular: RRR, no murmur, no edema Gastrointestinal (Abdomen): normal bowel sounds, soft, nontender, no hepatosplenomegaly Musculoskeletal: Head/Neck/Chest: normocephalic, head atraumatic and neck supple Skin: no rashes, warm and dry + wound (dressing c/d/i) Psychiatric: A+Ox3, euthymic affect Results & Data ([facility]) Vital Signs (Past 12 Hours) Vital Signs Temp Pulse Pulse Resp BP BP Pulse Ox 11/06/19 07:45 36.5 C 78 16 119/62 94 11/06/19 04:10 36.8 C 73 16 130/71 94 PG Care Time/CCT Total # of Minutes Spent Total Time Spent with Patient: Total time spent is greater than 50% in coordination of care (as documented) at patient's floor/unit and/or counseling patient: Coding Level of Care Code 78658 Inpt Consult Level 4 Diagnoses Cellulitis of foot, right L03.115
--- NOTE | 2019-11-06 14:31 | Hospitalist Progress Note ---
Date of Service November 06, 2019 Assessment & Plan (1) Cellulitis of foot, right: persistent recent admission with similar complain , was discharged with PO Keflex readmitted with worsening of symptom rt great toe -noted worsening of erythema , pus drainage on IV Cefepime and Vancomycin wound swab and blood culture ordered ID eval requested , appreciate input pt may need bedside debridement , wound care Dr Branch consulted (2) Jlfxffw-Svgql-Ekmuk disease: with underlying Type 2 DM recurrent toe cellulitis , non healing wounds possible due to to deformity , friction injury pt reports of wearing special shoes given evidence of new blood filled blister , fitting of the shoes may need to be evaluated by Orthotics -can be done after discharge from hospital wound care consulted , appreciate input depending on further healing /tx of great to ulcer during the hospital stay on discharge pt will need instructions for wt bearing status , and avoid close toe shoes till the wound is healed (3) TIO (acute kidney injury): underlying CKD stage 3 worsening of renal function possible due to dehydration , poor PO intake in setting of recurrent cellulitis of rt foot ordered IV fluids monitor BMP CODE STATUS : FULL CODE DISPOSITION : lives at home , has 12 hrs day aid service Daughter now living with him since the last discharge from hospital possible DC home with home health , support will need PT/OT eval prior to dc home Admission and Anticipated Discharge Date Admission Date: November 06, 2019 Subjective pt sitting on chair wants to know if he can be discharged home /willing to do IV abx at home says he could not sleep in the hospital bed, the recliner is not comfortable wants to go home today has wound clinic follow up tomorrow 11/07/19 does not have any fever since yesterday he feels fine rt great toe wound -noted to have drainage with pus /blood filled /black blisters noted on rt great toe which was not there few days Before ( was discharged a week back ) counselling provided -pt may need bedside debridement /I & D then ongoing wound care and needs arrangements for IV antibiotics pt lives alone with home day care provider coming in given this is his 2nd admission with same wound in matter of weeks cultures results are still not available it will be prudent to stay in hospital for at least 1-2 days will let wound team know , pt will be seen by wound care physician Dr Branch in AM Review of Systems Review of Systems: All systems reviewed & are unremarkable except as noted in HPI & below Constitutional: no fever, no chills, no fatigue and no malaise Integumentary: + new lesions (blood filled blisters on rt great toe ), + non- healing lesions (on rt great toe ) and + wounds (rt great toe non healing wound ) Physical Exam Constitutional: WD/WN, vitals as above no acute distress Eyes: PERRL, conjunctivae normal, anicteric sclerae ENMT: external ear and nose normal, oropharynx normal Neck: trachea midline, no thyromegaly Respiratory: normal respiratory effort, lungs clear to auscultation Cardiovascular: RRR, no murmur, no edema Gastrointestinal (Abdomen): normal bowel sounds, soft, nontender, no hepatosplenomegaly Musculoskeletal: chronic deformity on bilateral hands and toe for known Dx of Charcoe Fidelia Tooth joints open wound noted near the nail base of rt great toe , with pus coming out multiple dark blood filled blisters with black base on rt great toe Neurologic: PERRL, EOMI, accommodation nl, no face palsy, no dysarthria Psychiatric: A+Ox3, euthymic affect Results & Data ([facility]) Vital Signs (Past 12 Hours) Vital Signs Temp Pulse Pulse Resp BP BP Pulse Ox 11/06/19 07:45 36.5 C 78 16 119/62 94 11/06/19 04:10 36.8 C 73 16 130/71 94
[2019-11-06] MEDS: VANCOMYCIN HCL 1,250 MG in SODIUM CHLORIDE 0.9% 250 ML IV SCH (17:27)
[2019-11-06] MEDS: FINASTERIDE 5 MG TAB PO SCH ×2 (17:37→19:15)
[2019-11-06] MEDS: DIGOXIN 0.125 MG TAB PO SCH ×2 (17:37→19:15)
[2019-11-06] MEDS: CEFEPIME 2,000 MG in SYRINGE 7.5 ML IV SCH (18:59)
[2019-11-06] MEDS: VITAMIN B COMPLEX TAB PO SCH (21:16)
[2019-11-07] MEDS: CEFEPIME 2,000 MG in SYRINGE 7.5 ML IV SCH ×3 (05:55→22:42)
[2019-11-07] MEDS: OXYCODONE HCL IR 5 MG TAB (IMMEDIATE RELEASE) PO PRN ×3 (05:55→18:09)
[2019-11-07] MEDS ORDERED: VANCOMYCIN TROUGH ONE (07:30)
[2019-11-07 07:54] LABS: Basophils # (auto) 0.02 K/uL (0-0.2); Basophils % (auto) 0.3 %; Eosinophils % (auto) 2.7 %; Hematocrit (blood only) 37.6 % (42-52); Hemoglobin 12.3 g/dL (14.0-18.0); Immature Granulocytes # (auto) 0.05 K/uL (0.00-0.02); Immature Granulocytes % (auto) 0.7 %; Lymphocytes # (auto) 1.32 K/uL (1.2-3.4); Mean Corpuscular Hemoglobin 28.7 pg (25-34); Mean Corpuscular Hgb Conc 32.7 g/dL (32-36); Mean Corpuscular Volume 87.9 fL (80-100); Mean Platelet Volume 11.7 fL (7.4-10.4); Monocytes # (auto) 0.55 K/uL (0.11-0.59); Monocytes % (auto) 7.5 %; Neutrophils # (auto) 5.18 K/uL (1.4-6.5); Neutrophils % (auto) 70.8 %; Platelet Count 173 K/uL (130-400); RDW Coefficient of Variation 16.1 % (11.5-14.5); Red Blood Count 4.28 M/uL (4.7-6.1); White Blood Count 7.32 K/uL (4.8-10.8)
[2019-11-07] MEDS: SODIUM CHLORIDE 0.9% 1000ML 1,000 ML IV SCH (08:13)
[2019-11-07] MEDS: VANCOMYCIN HCL 1,250 MG in SODIUM CHLORIDE 0.9% 250 ML IV SCH (08:13)
[2019-11-07 08:23] LABS: BUN Creatinine Ratio 31.3 (10-20); Calcium 9.1 mg/dl (8.5-10.1); Creatinine Clr Calc Pharmacy 81.6 ml/min; Est GFR (Non-African American) 82.8; Magnesium 1.9 mg/dl (1.8-2.4); Potassium 4.4 mmol/L (3.5-5.1)
[2019-11-07] MEDS: LIDOCAINE 5% 1 PATCH TD SCH (09:16)
[2019-11-07] MEDS: APIXABAN 5 MG TABLET PO SCH ×2 (09:16→21:17)
[2019-11-07] MEDS: TORSEMIDE 20 MG TAB PO SCH (09:16)
[2019-11-07] MEDS: PANTOprazole 40 MG TAB PO SCH (09:16)
[2019-11-07] MEDS: ASCORBIC ACID 500 MG TAB PO SCH (09:16)
[2019-11-07] MEDS: MAGNESIUM OXIDE 400 MG TAB PO SCH ×2 (09:16→21:19)
[2019-11-07] MEDS: MULTIVITAMIN TAB PO SCH (09:17)
[2019-11-07] MEDS: PRAVASTATIN SOD 20 MG TAB PO SCH (09:17)
[2019-11-07] MEDS: POLYETHYLENE (MIRALAX) 17 GM PACK PO SCH (09:17)
[2019-11-07] MEDS: METOPROLOL SUCC 25MG EXT REL TAB PO SCH ×2 (09:18→21:20)
[2019-11-07] MEDS: ENALAPRIL MALEATE 10 MG TAB PO SCH ×2 (09:18→21:20)
[2019-11-07] MEDS: ATORVASTATIN 20 MG TAB PO SCH (09:18)
[2019-11-07] MEDS: FENOFIBRATE NANOCRYSTALLIZED 48 MG TABLET PO SCH (09:19)
[2019-11-07] MEDS: ASPIRIN 81 MG ECTAB PO SCH (09:19)
[2019-11-07] MEDS: FLUTICASONE/VILANTEROL 100/25MCG 14 PUFFS/INHALER INH SCH (09:19)
[2019-11-07] MEDS: CHECK FENTANYL PATCH PLACEMENT SCH ×4 (09:20→15:32)
[2019-11-07] MEDS: PREGABALIN 25 MG CAP PO SCH ×3 (09:20→21:17)
[2019-11-07] MEDS: CHOLECALCIFEROL 1,000 UNITS 25 MCG TAB PO SCH (09:21)
[2019-11-07] MEDS: DICLOFENAC SOD 1% GEL 100 GM TUBE EXT SCH ×2 (09:25→21:22)
[2019-11-07] MEDS: INSULIN GLARGINE SOLOSTAR 100 UNITS/ML 3 ML PEN SC SCH ×2 (09:25→21:18)
[2019-11-07] MEDS: INSULIN ASPART 100 UNITS/ML 3 ML PEN SC SCH ×4 (09:31→21:19)
--- NOTE | 2019-11-07 14:21 | Pharmacy Report ---
Pharmacy Abx Dose Short Note - Date of Service November 07, 2019 - Assessment & Plan Assessment 74 year old M receiving vancomycin for cellulitis of foot Day # 2 of antimicrobial therapy. Plan Vancomycin * Trough level came back slightly subtherapeutic today at ~13 mcg/ml - however drawn before steady state * Anticipate patient to accumulate vancomycin d/t BMI >/=35 kg/m2 therefore will continue with current vancomycin regimen for now * Scr is improving - will monitor. Waiting wound cx results from toe Cefepime * Target dose = 2 gm IV q8 hours - adjust to dosing today (CrCl >60 ml/min) Pharmacy will continue to follow and will adjust dose/frequency as necessary. Thank you.
[2019-11-07] MEDS: FINASTERIDE 5 MG TAB PO SCH (15:39)
[2019-11-07] MEDS: DIGOXIN 0.125 MG TAB PO SCH (15:39)
[2019-11-07] MEDS: ACETAMINOPHEN 500 MG TAB PO PRN (15:53)
--- NOTE | 2019-11-07 20:40 | Hospitalist Progress Note ---
Date of Service November 07, 2019 Assessment & Plan (1) Cellulitis of foot, right: Presented with worsening infection right foot with purulent drainage from toe, bullae, cellulitis. Did not meet criteria for sepsis, although WBC and lactic acid elevated. Blood cultures and wound cultures obtained. Receiving IV vancomycin and cefepime. ID and Wound Care consulted. (2) Toe infection: As noted above. (3) Hypertensive heart disease: Compensated. (4) Atrial flutter: Rate controlled. Continue metoprolol, digoxin, apixaban. (5) Hypertension: Continue metoprolol and enalapril. (6) COPD (chronic obstructive pulmonary disease): Pulm status stable. (7) CKD (chronic kidney disease), stage III: Recent TIO attributed to TMP/sulfa. TIO resolved. Creatinine today = 0.92. Follow. (8) Diabetes mellitus type 2 with complications: Hgb A1C 7.5 09/30/19. Hold oral agents during hospital stay. Lantus / NovoLog per protocol. FBS today = 176. (9) Chronic pain associated with significant psychosocial dysfunction: Continue usual analgesics. (10) DVT prophylaxis: Receiving apixaban for atrial fib / flutter. (11) Discharge planning issues: Anticipated discharge to home, probably with home health services. Family Medicine follow-up with Dr. Perry. Admission and Anticipated Discharge Date Admission Date: November 06, 2019 Subjective Recheck for foot ulcer and other problems. Patient seen in their room around 1530. No fever. No foot pain. Seen earlier today by Wound Care Team. Still receiving IV fluids and complaining of frequent urination. Chronic right shoulder pain. Review of Systems: Constitutional- as noted above. Cardiac- no chest pain. Pulmonary- no cough or SOB. GI- no nausea, vomiting, diarrhea, melena, hematochezia. - no urinary symptoms. Otherwise, as noted above. Physical Exam Constitutional: no acute distress Respiratory: no respiratory distress Auscultation: lungs clear to auscultation bilaterally Cardiovascular: Rate/Rhythm: regular rate and regular rhythm Heart Sounds: no gallop, no murmur and no cardiac rub Vessels: no JVD Extremities: + edema (1+); no calf tenderness Gastrointestinal (Abdomen): normal bowel sounds, soft, nontender, no hepatosplenomegaly Musculoskeletal: right foot bandaged Skin: no rashes, warm and dry Psychiatric: Orientation: alert and oriented x 3 Results & Data ([facility]) Vital Signs (Past 12 Hours) Vital Signs Temp Pulse Pulse Resp BP Pulse Ox 11/07/19 15:39 80 11/07/19 14:59 36.4 C L 80 16 106/63 95 Laboratory Results 11/07/19 07:19 11/07/19 07:19 Microbiology 11/07/19 11:45 Toe,Right Great Gram Stain - Final 11/06/19 21:00 Toe,Right Great Gram Stain - Final 11/06/19 21:00 Toe,Right Great Wound Culture - Preliminary Pin-point growth present, reincubating. 11/06/19 00:37 Blood Aerobic Blood Culture - Preliminary No growth in Aerobic bottle after 24 hours. 11/06/19 00:37 Blood Anaerobic Blood Culture - Preliminary No growth in Anaerobic bottle after 24 hours. 11/06/19 01:15 Blood Aerobic Blood Culture - Preliminary No growth in Aerobic bottle after 24 hours. 11/06/19 01:15 Blood Anaerobic Blood Culture - Preliminary No growth in Anaerobic bottle after 24 hours.
[2019-11-07] MEDS: VITAMIN B COMPLEX TAB PO SCH (21:22)
[2019-11-08] MEDS: VANCOMYCIN HCL 1,250 MG in SODIUM CHLORIDE 0.9% 250 ML IV SCH ×2 (01:32→16:35)
[2019-11-08] MEDS: CHECK FENTANYL PATCH PLACEMENT SCH ×8 (01:32→23:36)
[2019-11-08] MEDS: OXYCODONE HCL IR 5 MG TAB (IMMEDIATE RELEASE) PO PRN ×4 (03:51→23:38)
[2019-11-08] MEDS: CEFEPIME 2,000 MG in SYRINGE 7.5 ML IV SCH ×3 (06:16→23:12)
[2019-11-08 07:48] LABS: BUN Creatinine Ratio 29.8 (10-20); Calcium 9.4 mg/dl (8.5-10.1); Creatinine Clr Calc Pharmacy 68.3 ml/min; Est GFR (African American) 77.3; Est GFR (Non-African American) 66.7; Potassium 4.4 mmol/L (3.5-5.1)
[2019-11-08] MEDS: LACTOBACILLUS ACIDOPHILUS (FLORANEX) TAB PO SCH ×4 (08:27→21:13)
[2019-11-08] MEDS: ASPIRIN 81 MG ECTAB PO SCH (08:28)
[2019-11-08] MEDS: FLUTICASONE/VILANTEROL 100/25MCG 14 PUFFS/INHALER INH SCH (08:28)
[2019-11-08] MEDS: APIXABAN 5 MG TABLET PO SCH ×2 (08:29→21:13)
[2019-11-08] MEDS: FENOFIBRATE NANOCRYSTALLIZED 48 MG TABLET PO SCH (08:29)
[2019-11-08] MEDS: PRAVASTATIN SOD 20 MG TAB PO SCH (08:31)
[2019-11-08] MEDS: MULTIVITAMIN TAB PO SCH (08:31)
[2019-11-08] MEDS: MAGNESIUM OXIDE 400 MG TAB PO SCH ×2 (08:31→21:14)
[2019-11-08] MEDS: METOPROLOL SUCC 25MG EXT REL TAB PO SCH ×2 (08:31→21:15)
[2019-11-08] MEDS: PANTOprazole 40 MG TAB PO SCH (08:32)
[2019-11-08] MEDS: ENALAPRIL MALEATE 10 MG TAB PO SCH ×2 (08:32→21:15)
[2019-11-08] MEDS: ASCORBIC ACID 500 MG TAB PO SCH (08:33)
[2019-11-08] MEDS: CHOLECALCIFEROL 1,000 UNITS 25 MCG TAB PO SCH (08:33)
[2019-11-08] MEDS: LIDOCAINE 5% 1 PATCH TD SCH (08:36)
[2019-11-08] MEDS: DICLOFENAC SOD 1% GEL 100 GM TUBE EXT SCH ×2 (08:37→21:17)
[2019-11-08] MEDS: POLYETHYLENE (MIRALAX) 17 GM PACK PO SCH (08:58)
[2019-11-08] MEDS ORDERED: fentaNYL 25 MCG/HR TDSY TD SCH (09:00)
[2019-11-08] MEDS: PREGABALIN 25 MG CAP PO SCH ×3 (09:27→21:26)
[2019-11-08] MEDS: INSULIN GLARGINE SOLOSTAR 100 UNITS/ML 3 ML PEN SC SCH ×2 (09:28→21:17)
[2019-11-08] MEDS: INSULIN ASPART 100 UNITS/ML 3 ML PEN SC SCH ×4 (10:02→21:18)
[2019-11-08] MEDS ORDERED: fentaNYL 12 MCG/HR TDSY TD SCH (11:30)
--- NOTE | 2019-11-08 11:32 | Infectious Disease Progress Nt ---
Date of Service November 08, 2019 Assessment & Plan (1) Cellulitis of foot, right: can continue IV abx for now, follow blood cultures, if negative, would suggest resume outpt po abx or would suggest IV Dalvance x 2 at [facility] post d/c. Admission and Anticipated Discharge Date Admission Date: November 06, 2019 Subjective 11/06, 11/07 wound culture pending, blood cultures negative. afebrile, remains on cefepime and vanco, tolerating well. Results & Data ([facility]) Vital Signs (Past 12 Hours) Vital Signs Temp Pulse Resp BP BP Pulse Ox 11/08/19 11:04 36.8 C 74 18 132/68 96 11/08/19 08:02 36.7 C 78 18 121/67 95 11/07/19 23:33 36.4 C L 65 16 101/52 L 95 Laboratory Results Microbiology 11/06/19 00:37 Blood Aerobic Blood Culture - Preliminary No growth in Aerobic bottle after 48 hours. 11/06/19 00:37 Blood Anaerobic Blood Culture - Preliminary No growth in Anaerobic bottle after 48 hours. 11/06/19 01:15 Blood Aerobic Blood Culture - Preliminary No growth in Aerobic bottle after 48 hours. 11/06/19 01:15 Blood Anaerobic Blood Culture - Preliminary No growth in Anaerobic bottle after 48 hours. 11/07/19 11:45 Toe,Right Great Gram Stain - Final 11/06/19 21:00 Toe,Right Great Gram Stain - Final 11/06/19 21:00 Toe,Right Great Wound Culture - Preliminary Pin-point growth present, reincubating. PG Care Time/CCT Total # of Minutes Spent Total Time Spent with Patient: Total time spent is greater than 50% in coordination of care (as documented) at patient's floor/unit and/or counseling patient: Coding Level of Care Code 06920 Subseq Hosp Care Lvl 1 Diagnoses Cellulitis of foot, right L03.115
--- NOTE | 2019-11-08 14:46 | Wound Consultation ---
Date of Consultation November 08, 2019 History of Present Illness Reason for Consultation: diabetic foot ulcer Attending Physician: Jaret Garcia MD Allergies Allergy/AdvReac Type Severity Reaction Status Date / Time Penicillins Allergy Intermediate RASH Verified 11/06/19 01:27 sulfamethoxazole AdvReac Mild arf, Verified 11/06/19 01:27 [From Bactrim] hyperkalemia trimethoprim [From Bactrim] AdvReac Mild arf, Verified 11/06/19 01:27 hyperkalemia Home Medications Home Medications Medication Instructions Recorded Confirmed Type Eliquis 5 mg PO BID 01/06/19 11/06/19 History Jardiance 10 mg PO QAM 01/06/19 11/06/19 History albuterol sulfate [Ventolin HFA] 2 puff INHALATION Q6H PRN 01/06/19 11/06/19 History ascorbic acid (vitamin C) [Vitamin 1,000 mg PO QAM 01/06/19 11/06/19 History C] aspirin 81 mg PO QAM 01/06/19 11/06/19 History digoxin [Digox] 125 mcg PO DAILY@1600 01/06/19 11/06/19 History finasteride 5 mg PO QDD 01/06/19 11/06/19 History glimepiride 4 mg PO QAM 01/06/19 11/06/19 History metformin 1,000 mg PO BID 01/06/19 11/06/19 History metoprolol succinate 12.5 mg PO BID 01/06/19 11/06/19 History omeprazole 40 mg PO QAM 01/06/19 11/06/19 History pregabalin [Lyrica] 25 mg PO TID 01/06/19 11/06/19 History B-complex with vitamin C [Super B 1 tab PO HS 07/19/19 11/06/19 History Complex-Vitamin C] fluticasone propion-salmeterol 1 inh INHALATION BID 07/19/19 11/06/19 History [Advair Diskus] omega 7-kyo-ufd-fish oil [Fish Oil] 1 cap PO QDD 07/19/19 11/06/19 History ramipril 5 mg PO BID 07/19/19 11/06/19 History diclofenac sodium 2 g TOPICAL BID 09/27/19 11/06/19 History fentanyl 1 patch TRANSDERMAL Q72H 09/27/19 11/06/19 History nystatin 1 applic TOPICAL BID PRN 09/27/19 11/06/19 History oxycodone 15 mg PO Q6H PRN 09/27/19 11/06/19 History polyethylene glycol 3350 [Miralax] 17 g PO QAM 09/27/19 11/06/19 History prednisolone acetate 1 drp OPHTHALMIC (EYE) QID PRN 09/27/19 11/06/19 History cholecalciferol (vitamin D3) 2,000 units PO DAILY #30 tab 10/02/19 11/06/19 Rx magnesium oxide 400 mg PO BID 30 Days #60 tab 10/02/19 11/06/19 Rx acetaminophen [Tylenol Extra 1,000 mg PO Q6H PRN 10/10/19 11/06/19 History Strength] multivitamin 1 tab PO DAILY 10/10/19 11/06/19 History Probiotic 0 cell PO DAILY 10/29/19 11/06/19 History fenofibrate nanocrystallized 48 mg PO DAILY 10/29/19 11/06/19 History [Tricor] pravastatin [Pravachol] 20 mg PO DAILY 10/29/19 11/06/19 History cefdinir 300 mg PO BID #14 cap 11/05/19 11/06/19 Rx doxycycline hyclate 100 mg PO BID 7 Days #14 tab 11/05/19 11/06/19 Rx lidocaine 1 patch TOPICAL UD 11/05/19 11/06/19 History torsemide 20 mg PO MOWEFR 11/05/19 11/06/19 History atorvastatin 20 mg PO DAILY 11/06/19 11/06/19 History Patient History Medical History (Updated 11/08/19 @ 00:03 by Background Lisandro) 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) Acquired hallux valgus of right foot (Chronic) Atrial flutter Choledocholithiasis (Resolved) CKD (chronic kidney disease), stage III CMT (Dvkcvtz-Uvurp-Jabbt disease) (Chronic) COPD (chronic obstructive pulmonary disease) (Chronic) Degenerative disc disease 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) Diabetic peripheral neuropathy associated with type 2 diabetes mellitus (Chronic) Gastroesophageal reflux disease (Acute) Hallux valgus (acquired), left foot (Chronic) History of infection with vancomycin resistant Enterococcus (VRE) Hyperlipidemia (Chronic) Hypertension Hypertensive heart disease (Acute) Left foot drop (Chronic) Multiple closed fractures of ribs of left side (Acute) Pneumonia (Resolved) Right foot drop (Chronic) Spinal stenosis, lumbar region with neurogenic claudication (Chronic) Surgical History (Updated 11/07/19 @ 21:33 by Jaret Garcia MD) Hx of tonsillectomy (Inactive) S/P cataract extraction (Resolved) S/P cervical spinal fusion (Inactive) S/P foot surgery, right Status post cholecystectomy (Inactive) Family History Other COPD (chronic obstructive pulmonary disease) Coronary heart disease Social History Preferred Language: Greenlandic Communication Ability: Effective Visual Impairment: Limited Hearing Ability: Hard of Hearing Lines Tender Required: No Beliefs That Will Affect Care: None marital status: Current Living Situation: Alone and Other Current Living Situation Comment: "55 and older community" current occupational status: retired Other Information That Helps Us Care for You: No Feels Safe at Home: Yes Safety Concerns: Feels Safe At This Time Smoking Status: Former smoker Tobacco Type: cigarettes ; packs per day: 0.5 ; Cigarettes Per Day: 1 every two weeks ; Do You Dip or Chew Tobacco: No ; Second Hand Exposure: No ; Hx Alcohol Use: No Hx Substance Use: No Results & Data Vital Signs (Past 12 Hours) Vital Signs Temp Pulse Resp BP BP Pulse Ox 11/08/19 11:04 36.8 C 74 18 132/68 96 11/08/19 08:02 36.7 C 78 18 121/67 95 PG Care Time/CCT Total # of Minutes Spent Total Time Spent with Patient: Total time spent is greater than 50% in coordination of care (as documented) at patient's floor/unit and/or counseling patient: Coding
--- NOTE | 2019-11-08 15:11 | Wound Consultation ---
Date of Consultation November 07, 2019 Assessment & Plan (1) Diabetic foot ulcer associated with type 2 diabetes mellitus: This is a 74-year-old male with diabetic foot ulcer in the setting of cellulitis and chronic venous insufficiency. Wound needed debridement. After obtaining permission topical Xylocaine was applied. Using scissors and forceps nonviable skin, fibrin and slough were removed. Scant bleeding was controlled with pressure. Patient tolerated the procedure well with no complications. This represents non-excisional debridement less than 20 cm. Wound culture was obtained. Wounds on foot legs will be dressed with Aquacel Ag and OPTi foam. We will see patient in the office after discharge. Thank for limited participate in the care of this patient. Please hesitate to call with any questions. (2) Cellulitis of foot, right: History of Present Illness Reason for Consultation: Diabetic foot ulcer Attending Physician: Jaret Garcia MD History of Present Illness This is a 74-year-old male who is known to the wound clinic with a medical history including hypertension, atrial flutter, CKD stage III, type 2 diabetes, Tdsgydk-Tjfpj-Ffakk disease, chronic pain, GERD, gout, hypertensive heart disease, COPD, dyslipidemia and chronic venous stasis was admitted with cellulitis and failure of outpatient therapy. Wound is being dressed with foam. Currently on IV antibiotics. Patient was admitted October 30 and discharged with oral antibiotics. He returned twice on Tuesday and was finally agreeable to admission. Patient has no other complaints. Denies fevers or chills at this time. Allergies Allergy/AdvReac Type Severity Reaction Status Date / Time Penicillins Allergy Intermediate RASH Verified 11/06/19 01:27 sulfamethoxazole AdvReac Mild arf, Verified 11/06/19 01:27 [From Bactrim] hyperkalemia trimethoprim [From Bactrim] AdvReac Mild arf, Verified 11/06/19 01:27 hyperkalemia Home Medications Home Medications Medication Instructions Recorded Confirmed Type Eliquis 5 mg PO BID 01/06/19 11/06/19 History Jardiance 10 mg PO QAM 01/06/19 11/06/19 History albuterol sulfate [Ventolin HFA] 2 puff INHALATION Q6H PRN 01/06/19 11/06/19 History ascorbic acid (vitamin C) [Vitamin 1,000 mg PO QAM 01/06/19 11/06/19 History C] aspirin 81 mg PO QAM 01/06/19 11/06/19 History digoxin [Digox] 125 mcg PO DAILY@1600 01/06/19 11/06/19 History finasteride 5 mg PO QDD 01/06/19 11/06/19 History glimepiride 4 mg PO QAM 01/06/19 11/06/19 History metformin 1,000 mg PO BID 01/06/19 11/06/19 History metoprolol succinate 12.5 mg PO BID 01/06/19 11/06/19 History omeprazole 40 mg PO QAM 01/06/19 11/06/19 History pregabalin [Lyrica] 25 mg PO TID 01/06/19 11/06/19 History B-complex with vitamin C [Super B 1 tab PO HS 07/19/19 11/06/19 History Complex-Vitamin C] fluticasone propion-salmeterol 1 inh INHALATION BID 07/19/19 11/06/19 History [Advair Diskus] omega 8-wgz-nli-fish oil [Fish Oil] 1 cap PO QDD 07/19/19 11/06/19 History ramipril 5 mg PO BID 07/19/19 11/06/19 History diclofenac sodium 2 g TOPICAL BID 09/27/19 11/06/19 History fentanyl 1 patch TRANSDERMAL Q72H 09/27/19 11/06/19 History nystatin 1 applic TOPICAL BID PRN 09/27/19 11/06/19 History oxycodone 15 mg PO Q6H PRN 09/27/19 11/06/19 History polyethylene glycol 3350 [Miralax] 17 g PO QAM 09/27/19 11/06/19 History prednisolone acetate 1 drp OPHTHALMIC (EYE) QID PRN 09/27/19 11/06/19 History cholecalciferol (vitamin D3) 2,000 units PO DAILY #30 tab 10/02/19 11/06/19 Rx magnesium oxide 400 mg PO BID 30 Days #60 tab 10/02/19 11/06/19 Rx acetaminophen [Tylenol Extra 1,000 mg PO Q6H PRN 10/10/19 11/06/19 History Strength] multivitamin 1 tab PO DAILY 10/10/19 11/06/19 History Probiotic 0 cell PO DAILY 10/29/19 11/06/19 History fenofibrate nanocrystallized 48 mg PO DAILY 10/29/19 11/06/19 History [Tricor] pravastatin [Pravachol] 20 mg PO DAILY 10/29/19 11/06/19 History cefdinir 300 mg PO BID #14 cap 11/05/19 11/06/19 Rx doxycycline hyclate 100 mg PO BID 7 Days #14 tab 11/05/19 11/06/19 Rx lidocaine 1 patch TOPICAL UD 11/05/19 11/06/19 History torsemide 20 mg PO MOWEFR 11/05/19 11/06/19 History atorvastatin 20 mg PO DAILY 11/06/19 11/06/19 History Patient History Medical History (Updated 11/08/19 @ 15:08 by Juliocesar Branch DO) 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) Acquired hallux valgus of right foot (Chronic) Atrial flutter Choledocholithiasis (Resolved) CKD (chronic kidney disease), stage III CMT (Titufer-Nyrrm-Nhfta disease) (Chronic) COPD (chronic obstructive pulmonary disease) (Chronic) Degenerative disc disease 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) Diabetic foot ulcer associated with type 2 diabetes mellitus Diabetic peripheral neuropathy associated with type 2 diabetes mellitus (Chronic) Gastroesophageal reflux disease (Acute) Hallux valgus (acquired), left foot (Chronic) History of infection with vancomycin resistant Enterococcus (VRE) Hyperlipidemia (Chronic) Hypertension Hypertensive heart disease (Acute) Left foot drop (Chronic) Multiple closed fractures of ribs of left side (Acute) Pneumonia (Resolved) Right foot drop (Chronic) Spinal stenosis, lumbar region with neurogenic claudication (Chronic) Surgical History (Updated 11/07/19 @ 21:33 by Jaret Garcia MD) Hx of tonsillectomy (Inactive) S/P cataract extraction (Resolved) S/P cervical spinal fusion (Inactive) S/P foot surgery, right Status post cholecystectomy (Inactive) Family History Other COPD (chronic obstructive pulmonary disease) Coronary heart disease Social History Preferred Language: Tamazight Communication Ability: Effective Visual Impairment: Limited Hearing Ability: Hard of Hearing Spice Cleaner Required: No Beliefs That Will Affect Care: None marital status: Current Living Situation: Alone and Other Current Living Situation Comment: "55 and older community" current occupational status: retired Other Information That Helps Us Care for You: No Feels Safe at Home: Yes Safety Concerns: Feels Safe At This Time Smoking Status: Former smoker Tobacco Type: cigarettes ; packs per day: 0.5 ; Cigarettes Per Day: 1 every two weeks ; Do You Dip or Chew Tobacco: No ; Second Hand Exposure: No ; Hx Alcohol Use: No Hx Substance Use: No Review of Systems Review of Systems: All systems reviewed & are unremarkable except as noted in HPI & below Physical Exam Constitutional: WD/WN, vitals as above Eyes: PERRL, conjunctivae normal, anicteric sclerae ENMT: external ear and nose normal, oropharynx normal Ears: no hearing impairment Skin: Wound measuring is recorded in nursing documentation. Patient's right distal foot/great toe there are 2 fluid-filled blisters. Periwound is erythematous. There is no drainage at this time. Neurologic: awake; not confused Psychiatric: A+Ox3, euthymic affect Results & Data Vital Signs (Past 12 Hours) Vital Signs Temp Pulse Pulse Resp BP Pulse Ox 11/07/19 14:59 36.4 C L 80 16 106/63 95 11/07/19 07:52 36.6 C 76 16 104/60 96 Diagnostic Findings X-ray of right great toe showed no definitive evidence of osteomyelitis. PG Care Time/CCT Total # of Minutes Spent Total Time Spent with Patient: Total time spent is greater than 50% in coordination of care (as documented) at patient's floor/unit and/or counseling patient: Coding Level of Care Code 57840 Inpt Consult Level 3 Diagnoses Diabetic foot ulcer associated with type 2 diabetes mellitus E11.621; L97.509 Cellulitis of foot, right L03.115
[2019-11-08] MEDS ORDERED: VANCOMYCIN TROUGH ONE (15:30)
[2019-11-08] MEDS: FINASTERIDE 5 MG TAB PO SCH (16:37)
--- NOTE | 2019-11-08 16:38 | Pharmacy Report ---
Pharmacy Abx Dose Short Note - Date of Service November 08, 2019 - Assessment & Plan Assessment 74 year old M receiving vancomycin/cefepime for treatment of R foot infection Day # 3 of antimicrobial therapy. Plan Vancomycin * Trough level of 16.1 mcg/mL is therapeutic. (Dose at midnight hung 1.5 hours late but okay with current trough as patient is improving). * Continue dose of 1250 mg IV every 16 hours * Goal trough level for foot infection : ~15 mcg/mL * Re-order troughs based upon clinical picture. Pharmacy will continue to follow and will adjust dose/frequency as necessary. Thank you.
[2019-11-08] MEDS: DIGOXIN 0.125 MG TAB PO SCH (16:40)
[2019-11-08] MEDS: ACETAMINOPHEN 500 MG TAB PO PRN (18:51)
[2019-11-08] MEDS ORDERED: MICONAZOLE NITRATE POWDER 43 GM EXT PRN (19:18)
[2019-11-08] MEDS: VITAMIN B COMPLEX TAB PO SCH (21:16)
--- NOTE | 2019-11-08 22:03 | Hospitalist Progress Note ---
Date of Service November 08, 2019 Assessment & Plan (1) Cellulitis of foot, right: Presented with worsening infection right foot with purulent drainage from toe, bullae, cellulitis. Did not meet criteria for sepsis, although WBC and lactic acid elevated. Blood cultures and wound cultures obtained. Receiving IV vancomycin and cefepime. ID and Wound Care consulted. Blood cultures negative so far. (2) Toe infection: As noted above. (3) Hypertensive heart disease: Compensated. (4) Atrial flutter: Rate controlled. Continue metoprolol, digoxin, apixaban. (5) Hypertension: Continue metoprolol and enalapril. (6) COPD (chronic obstructive pulmonary disease): Pulm status stable. (7) CKD (chronic kidney disease), stage III: Recent TIO attributed to TMP/sulfa. TIO resolved. Creatinine today = 1.10. Follow. (8) Diabetes mellitus type 2 with complications: Hgb A1C 7.5 09/30/19. Hold oral agents during hospital stay. Lantus / NovoLog per protocol. FBS today = 206. (9) Chronic pain associated with significant psychosocial dysfunction: Continue usual analgesics. (10) DVT prophylaxis: Receiving apixaban for atrial fib / flutter. (11) Discharge planning issues: Anticipated discharge to home, probably with home health services. Family Medicine follow-up with Dr. Perry. Admission and Anticipated Discharge Date Admission Date: November 06, 2019 Subjective Recheck for foot ulcer and other problems. Patient seen in their room around 1910. No fever. No foot pain. Chronic right shoulder pain. Review of Systems: Constitutional- as noted above. Cardiac- no chest pain. Pulmonary- no cough or SOB. GI- no nausea, vomiting, diarrhea, melena, hematochezia. - no urinary symptoms. Otherwise, as noted above. Physical Exam Constitutional: no acute distress Respiratory: no respiratory distress Auscultation: lungs clear to auscultation bilaterally Cardiovascular: Rate/Rhythm: regular rate and regular rhythm Heart Sounds: no gallop, no murmur and no cardiac rub Vessels: no JVD Extremities: + edema (1+); no calf tenderness Gastrointestinal (Abdomen): normal bowel sounds, soft, nontender, no hepatosplenomegaly Musculoskeletal: right foot bandaged Skin: no rashes, warm and dry Psychiatric: Orientation: alert and oriented x 3 Results & Data ([facility]) Vital Signs (Past 12 Hours) Vital Signs Temp Pulse Pulse Resp BP Pulse Ox 11/08/19 16:40 80 11/08/19 15:13 36.7 C 80 16 123/70 95 11/08/19 11:04 36.8 C 74 18 132/68 96 Laboratory Results 11/07/19 07:19 11/08/19 07:01
[2019-11-09] MEDS: CEFEPIME 2,000 MG in SYRINGE 7.5 ML IV SCH ×2 (06:08→14:03)
[2019-11-09 07:28] LABS: Hematocrit (blood only) 38.1 % (42-52); Hemoglobin 12.5 g/dL (14.0-18.0); Mean Corpuscular Hemoglobin 28.1 pg (25-34); Mean Corpuscular Hgb Conc 32.8 g/dL (32-36); Mean Corpuscular Volume 85.6 fL (80-100); Mean Platelet Volume 11.3 fL (7.4-10.4); Platelet Count 198 K/uL (130-400); RDW Coefficient of Variation 16.1 % (11.5-14.5); RDW Standard Deviation 50.3 fL (36.4-46.3); Red Blood Count 4.45 M/uL (4.7-6.1)
[2019-11-09 07:59] LABS: BUN Creatinine Ratio 28.2 (10-20); Calcium 9.9 mg/dl (8.5-10.1); Creatinine Clr Calc Pharmacy 66.4 ml/min; Est GFR (African American) 74.8; Est GFR (Non-African American) 64.6; Potassium 4.6 mmol/L (3.5-5.1)
[2019-11-09] MEDS: OXYCODONE HCL IR 5 MG TAB (IMMEDIATE RELEASE) PO PRN ×2 (10:21→16:31)
[2019-11-09] MEDS: PANTOprazole 40 MG TAB PO SCH (10:23)
[2019-11-09] MEDS: VANCOMYCIN HCL 1,250 MG in SODIUM CHLORIDE 0.9% 250 ML IV SCH (10:23)
[2019-11-09] MEDS: LIDOCAINE 5% 1 PATCH TD SCH (10:23)
[2019-11-09] MEDS: ASCORBIC ACID 500 MG TAB PO SCH (10:24)
[2019-11-09] MEDS: LACTOBACILLUS ACIDOPHILUS (FLORANEX) TAB PO SCH ×3 (10:24→17:37)
[2019-11-09] MEDS: FENOFIBRATE NANOCRYSTALLIZED 48 MG TABLET PO SCH (10:24)
[2019-11-09] MEDS: CHOLECALCIFEROL 1,000 UNITS 25 MCG TAB PO SCH (10:25)
[2019-11-09] MEDS: METOPROLOL SUCC 25MG EXT REL TAB PO SCH (10:25)
[2019-11-09] MEDS: ASPIRIN 81 MG ECTAB PO SCH (10:25)
[2019-11-09] MEDS: ENALAPRIL MALEATE 10 MG TAB PO SCH (10:25)
[2019-11-09] MEDS: MAGNESIUM OXIDE 400 MG TAB PO SCH (10:25)
[2019-11-09] MEDS: TORSEMIDE 20 MG TAB PO SCH (10:25)
[2019-11-09] MEDS: CHECK FENTANYL PATCH PLACEMENT SCH ×4 (10:26→16:44)
[2019-11-09] MEDS: MULTIVITAMIN TAB PO SCH (10:26)
[2019-11-09] MEDS: APIXABAN 5 MG TABLET PO SCH (10:26)
[2019-11-09] MEDS: PRAVASTATIN SOD 20 MG TAB PO SCH (10:26)
[2019-11-09] MEDS: FLUTICASONE/VILANTEROL 100/25MCG 14 PUFFS/INHALER INH SCH (10:27)
[2019-11-09] MEDS: POLYETHYLENE (MIRALAX) 17 GM PACK PO SCH (10:28)
[2019-11-09] MEDS: DICLOFENAC SOD 1% GEL 100 GM TUBE EXT SCH (10:28)
[2019-11-09] MEDS: INSULIN GLARGINE SOLOSTAR 100 UNITS/ML 3 ML PEN SC SCH (10:30)
[2019-11-09] MEDS: INSULIN ASPART 100 UNITS/ML 3 ML PEN SC SCH ×3 (10:32→17:41)
[2019-11-09] MEDS: PREGABALIN 25 MG CAP PO SCH ×2 (10:53→14:03)
--- NOTE | 2019-11-09 15:29 | Hospitalist Progress Note ---
Date of Service November 09, 2019 Assessment & Plan (1) Cellulitis of foot, right: Presented with worsening infection right foot with purulent drainage from toe, bullae, cellulitis. Did not meet criteria for sepsis, although WBC and lactic acid elevated. Blood cultures and wound cultures obtained. X-ray of right toes showed chronic changes, no apparent osteomyelitis. ID and Wound Care consulted. Blood cultures negative. Received IV vancomycin and cefepime with improvement. Discharge on cefdinir and doxycycline to complete total of 14 day course of therapy. (Was taking cefdinir and doxy, but only for 1 day before admission.) Ongoing wound care as directed by Wound Care Nursing. Foot care discussed. Has appointment for follow-up in [facility]ound Clinic next week. (2) Toe infection: As noted above. (3) Hypertensive heart disease: Compensated. Continue torsemide 3 times a week. (4) Atrial flutter: Rate controlled. Continue metoprolol, digoxin, apixaban. (5) Hypertension: Continue metoprolol and enalapril. (6) COPD (chronic obstructive pulmonary disease): Pulm status stable. (7) CKD (chronic kidney disease), stage III: Recent TIO attributed to TMP/sulfa. TIO resolved. Creatinine stable at 1.13. Follow. (8) Diabetes mellitus type 2 with complications: Hgb A1C 7.5 09/30/19. Hold oral agents during hospital stay. Lantus / NovoLog per protocol. FBS today = 230. Discharge on usual regimen. Follow and titrate Rx. (9) Chronic pain associated with significant psychosocial dysfunction: Continue usual analgesics. (10) DVT prophylaxis: Receiving apixaban for atrial fib / flutter. (11) Discharge planning issues: Discharge to home, probably with home health services. Family Medicine follow-up with Dr. Perry. Arrangements made for follow-up at [facility]. Admission and Anticipated Discharge Date Admission Date: November 06, 2019 Subjective Recheck for foot ulcer and other problems. Patient seen in their room around 1530. Daughter visiting. No fever. No foot pain. Seen early today by Wound Care Nursing for wound check and dressing change. Cellulitis improved. No nausea, vomiting, diarrhea. Patient would like to go home. Physical Exam Constitutional: no acute distress Respiratory: no respiratory distress Auscultation: lungs clear to auscultation bilaterally Cardiovascular: Rate/Rhythm: regular rate and regular rhythm Heart Sounds: no gallop, no murmur and no cardiac rub Vessels: no JVD Extremities: + edema (1+); no calf tenderness Gastrointestinal (Abdomen): normal bowel sounds, soft, nontender, no hepatosplenomegaly Musculoskeletal: right foot with new dressing Please refer to Wound Care Nursing assessment Skin: no rashes, warm and dry Psychiatric: Orientation: alert and oriented x 3 Results & Data ([facility]) Vital Signs (Past 12 Hours) Vital Signs Temp Pulse Resp BP Pulse Ox 11/09/19 07:37 36.5 C 72 18 138/69 97 Laboratory Results 11/09/19 06:49 11/09/19 06:49 Microbiology 11/06/19 21:00 Toe,Right Great Gram Stain - Final 11/06/19 21:00 Toe,Right Great Wound Culture - Final Low counts mixed probable skin microbiota. No further identifications or sensitivities to follow. 11/07/19 11:45 Toe,Right Great Gram Stain - Final 11/07/19 11:45 Toe,Right Great Wound Culture - Final No growth 11/06/19 00:37 Blood Aerobic Blood Culture - Preliminary No growth in Aerobic bottle after 48 hours. 11/06/19 00:37 Blood Anaerobic Blood Culture - Preliminary No growth in Anaerobic bottle after 48 hours. 11/06/19 01:15 Blood Aerobic Blood Culture - Preliminary No growth in Aerobic bottle after 48 hours. 11/06/19 01:15 Blood Anaerobic Blood Culture - Preliminary No growth in Anaerobic bottle after 48 hours.
[2019-11-09] MEDS: ACETAMINOPHEN 500 MG TAB PO PRN (15:34)
[2019-11-09] MEDS: DIGOXIN 0.125 MG TAB PO SCH (16:34)
[2019-11-09] MEDS: FINASTERIDE 5 MG TAB PO SCH (17:38)
--- NOTE | 2019-11-10 10:10 | Discharge Summary ---
Date of Service Date of Admission: 11/06/19 Date of Discharge: 11/09/19 Admission HPI Per Admitting Provider This is a 74-year-old male with past medical history significant for type 2 diabetes; hypertriglyceridemia; hyperlipidemia; peripheral vascular disease; COPD; moderate lung nodule; chronic kidney disease stage III; morbid obesity; GERD; BPH; bilateral foot drops; history of partial amputation of the left toe; left rotator cuff arthropathy; lumbar back pain; radiculopathy affecting left lower extremity; Clrgckc-Vznnl-Pfqlt disease; tobacco disorder; degenerative cervical spinal stenosis; AFib, atrial flutter, on Eliquis; chronic pain, on narcotics; bilateral lower extremity venous ulcers. He has been having infection of the right great toe about a month now, initially treated with Bactrim and Keflex, but had developed renal failure and hyperkalemia with Bactrim. He was admitted to the hospital on 10/28/2019 because of fall and some lethargy and thought to be from toe infection and TIO from Bactrim and the antibiotic was changed to Keflex and doxycycline and he seemed to be improved. At that time, he also had hyperkalemia, which improved with discontinuation of Bactrim and fluids and he was discharged back home with Keflex, but it was not getting better, so he came to the ER early in the morning on 11/05/2019 and he was advised to get admitted to the hospital for IV antibiotics. The patient wanted to go home and discharged on oral doxycycline and Omnicef. He lives alone. He is wheelchair bound. He walks few steps. He has a caregiver who comes home daily, but last few days, his daughter is living with him.He was notified to come back to ER if anything changes, but in the evening again he was developing some low-grade fever about 99.5 and also having some chills and the daughter brought him to the hospital again. His lab work showed white count of 12.7 and lactate 3. So we are called for admission. Currently resting comfortably and hemodynamically stable. He is afebrile. He is also having decubitus ulcers in the sacral region. He has some superficial wounds in the left lower extremity from bumping into things and has some blisters on his right big toe and second toe and some erythematous changes in the foot. Otherwise, he is doing okay. Denies any headache. No blurred vision, double vision. No earache, no runny nose, no sore throat, no cough. Appetite is okay. No dysphagia, no odynophagia. No chest pain, no shortness of breath, no nausea, no vomiting, no abdominal pain. Normal bowel and bladder movements. No blood in stool or black stools. No hematuria or burning micturition. Principal Diagnosis ulcer right great toe cellulitis right great toe + foot Discharge Data Allergies Allergy/AdvReac Type Severity Reaction Status Date / Time Penicillins Allergy Intermediate RASH Verified 11/06/19 01:27 sulfamethoxazole AdvReac Mild arf, Verified 11/06/19 01:27 [From Bactrim] hyperkalemia trimethoprim [From Bactrim] AdvReac Mild arf, Verified 11/06/19 01:27 hyperkalemia Consultations 11/06/19 01:44 ED Decision to Admit Stat 11/06/19 04:07 Consult Case Management - Discharge Planning Routine 11/06/19 08:00 Consult Infectious Diseases Routine 11/06/19 15:58 Consult Wound Care Provider Routine Hospital Course (1) Cellulitis of foot, right: Presented with worsening infection right foot with purulent drainage from toe, bullae, cellulitis. Did not meet criteria for sepsis, although WBC and lactic acid elevated. Blood cultures and wound cultures obtained. X-ray of right toes showed chronic changes, no apparent osteomyelitis. ID and Wound Care consulted. Blood cultures negative. Received IV vancomycin and cefepime with improvement. Discharged on cefdinir and doxycycline to complete total of 14 day course of th erapy. (Was taking cefdinir and doxy, but only for 1 day before admission.) Ongoing wound care as directed by Wound Care Nursing. Foot care discussed. Has appointment for follow-up in [facility] Clinic next week. (2) Toe infection: As noted above. (3) Hypertensive heart disease: Compensated. Continue torsemide 3 times a week. (4) Atrial flutter: Rate controlled. Continue metoprolol, digoxin, apixaban. (5) Hypertension: Continue metoprolol and enalapril. (6) COPD (chronic obstructive pulmonary disease): Pulm status stable. (7) CKD (chronic kidney disease), stage III: Recent TIO attributed to TMP/sulfa. TIO resolved. Creatinine stable at 1.13. Follow. (8) Diabetes mellitus type 2 with complications: Hgb A1C 7.5 09/30/19. Hold oral agents during hospital stay. Lantus / NovoLog per protocol. FBS day of discharge 230. Discharge on usual regimen. Follow and titrate Rx. (9) Chronic pain associated with significant psychosocial dysfunction: Continue usual analgesics. (10) DVT prophylaxis: Receiving apixaban for atrial fib / flutter. (11) Discharge planning issues: Discharged to home with home health services. Family Medicine follow-up with Dr. Perry. Arrangements made for follow-up at [facility]. Total Time Total Time Spent Total Time Spent (In Minutes): 45 Discharge Plan Discharge Items Patient Disposition: Home - Home Health Services Reason For Visit: FEVER, FOOT INFECTION Discharge Diagnosis: infection foot and toe Activity: Resume your previous activity Non-emergency contact: Primary Care Provider and Hospitalist Call non-emergency contact if: you have any medication questions, your symptoms worsen and you have a fever Follow-up/Referrals: Mohan Perry MD [Primary Care Provider] - 11/16/19 1:20 pm (11/16/2019 1:20 PM Mohan Perry MD) Juliocesar Branch DO [Physician] - 11/15/19 8:00 am Diet: Carb Consistent or DM2 and Heart Healthy Addtl Attending Provider Instructions: MEDICATION CHANGES: Continue taking cefdinir and doxycycline as previously prescribed. New prescriptions sent to [facility] to extend treatment for 4 additional days. SUMMARY OF TEST RESULTS: Blood cultures did not show any infection in blood stream. RECOMMENDATIONS FOR FOLLOW-UP: Follow-up with [facility] as scheduled. OTHER INSTRUCTIONS: Avoid pressure on toes and feet. Elevate feet when able to reduce swelling. Avoid pressure on back and buttocks. Reposition yourself often. Wound care as directed by Wound Care Nursing. Seek medical attention if you have: * temperature above 101 * chest pain or trouble breathing * abdominal pain, nausea, vomiting * diarrhea, dark stools or bloody stools * any unanswered questions or concerns Call 911 if symptoms are severe. Please take good care of yourself. Call if you have any questions or problems. You can reach a [facility] hospitalist on duty at [facility] 24 hours a day by calling [phone]. My cell # is [phone]. Pending Studies at Discharge: No Stand-Alone Forms: My [facility], Smoking Cessation Medications and DC Order Prescriptions: New cefdinir 300 mg capsule 300 mg PO BID Qty: 8 RF: 0 doxycycline hyclate 100 mg tablet 100 mg PO BID Qty: 8 RF: 0 Continued ascorbic acid (vitamin C) [Vitamin C] 1,000 mg Tablet 1,000 mg PO QAM RF: 0 omeprazole 40 mg Capsule,Delayed Release(Dr/Ec) 40 mg PO QAM RF: 0 aspirin 81 mg Tablet,Delayed Release (Dr/Ec) 81 mg PO QAM RF: 0 metformin 1,000 mg Tablet 1,000 mg PO BID RF: 0 glimepiride 4 mg Tablet 4 mg PO QAM RF: 0 digoxin [Digox] 125 mcg Tablet 125 mcg PO DAILY@1600 RF: 0 metoprolol succinate 25 mg Tablet Extended Release 24 Hr 12.5 mg PO BID RF: 0 albuterol sulfate [Ventolin HFA] 90 mcg/actuation Hfa Aerosol Inhaler 2 puff INHALATION Q6H PRN (Reason: Shortness Of Breath) RF: 0 finasteride 5 mg Tablet 5 mg PO QDD RF: 0 pregabalin [Lyrica] 25 mg Capsule 25 mg PO TID RF: 0 Eliquis 5 mg Tablet 5 mg PO BID RF: 0 Jardiance 10 mg Tablet 10 mg PO QAM RF: 0 pravastatin [Pravachol] 20 mg tablet 20 mg PO DAILY RF: 0 fenofibrate nanocrystallized [Tricor] 48 mg tablet 48 mg PO DAILY RF: 0 Probiotic 3 billion cell Capsule 0 cell PO DAILY RF: 0 ramipril 5 mg Capsule 5 mg PO BID RF: 0 B-complex with vitamin C [Super B Complex-Vitamin C] Tablet 1 tab PO HS RF: 0 omega 6-byz-lev-fish oil [Fish Oil] 1,000 mg (120 mg-180 mg) Capsule 1 cap PO QDD RF: 0 fluticasone propion-salmeterol [Advair Diskus] 250-50 mcg/dose Blister With Device 1 inh INHALATION BID RF: 0 polyethylene glycol 3350 [Miralax] 17 gram Powder In Packet 17 g PO QAM RF: 0 oxycodone 10 mg tablet 15 mg PO Q6H PRN (Reason: Pain) RF: 0 fentanyl 37.5 mcg/hour Patch 72 Hour 1 patch TRANSDERMAL Q72H RF: 0 prednisolone acetate 1 % Drops,Suspension 1 drp OPHTHALMIC (EYE) QID PRN (Reason: prn) RF: 0 nystatin 100,000 unit/gram Cream 1 applic TOPICAL BID PRN (Reason: redness) RF: 0 diclofenac sodium 1 % Gel 2 g TOPICAL BID RF: 0 magnesium oxide 400 mg (241.3 mg magnesium) Tablet 400 mg PO BID 30 Days Qty: 60 RF: 1 cholecalciferol (vitamin D3) 2,000 unit tablet 2,000 units PO DAILY Qty: 30 RF: 1 multivitamin Tablet 1 tab PO DAILY RF: 0 acetaminophen [Tylenol Extra Strength] 500 mg Tablet 1,000 mg PO Q6H PRN (Reason: Pain) RF: 0 lidocaine 5 % adhesive patch,medicated 1 patch topical UD RF: 0 torsemide 20 mg tablet 20 mg PO MOWEFR RF: 0 Discharge Orders: Discharge Order (Routine); Ordered 11/09/19 Ordered By: Jaret Garcia Admission Data Admit Date/Time: 11/06/19 02:45 Attending Provider: Jaret Garcia Admit Provider: Jamel Eckert Primary Care Provider: Mohan Perry Other Providers: Jamel Eckert ; Concepción Wilson ; Juliocesar Branch ; Charissa Doty Other Interventions: Discharge Summary Assessment (RN) Last Done: 11/09/19 17:25 DC Date/Time DO NOT enter until pt leaves facility: 11/09/19 18:27
== END 2019-11-09 18:27 | disposition home health service (06) | DRG 603 ==
LOC: ED 00:14 → 3W 02:45 → SUATTDRO 02:45 → 3W 03:36

== ENCOUNTER 2020-04-13 16:31 | Inpatient (IN) ==
--- NOTE | 2020-04-13 16:48 | Emergency Department Note ---
Impression & Plan Sepsis, Fever, Ulcer, Pneumonia ED Provider Note NAME: AVINASH LEE AGE: 75 SEX: M : 1945 ARRIVES VIA: Ambulance INFORMANT: Patient ED PROVIDER(S): Gregorio Izaguirre DO CHIEF COMPLAINT: fever and shaking HPI: Patient is a 75-year-old male who presents the ER for confusion. He was found passed out on the toilet by his daughter. He has an extensive history of multiple infections and just finished up several antibiotics for multiple infected ulcers per patient about two days ago. He notes that he has been shaking since early this morning. He is unable to stop. He has a cough which is unchanged. No new sputum. No increased frequency. He denies any headache or neck pain. He has chronic right shoulder pain. Denies any chest pain, dysuria urgency, or frequency. Does not believe the wounds are worsening. No other exacerbating or remitting factors. No exposure with anyone has coronavirus. He notes one family member is been tested as they are traveling but they have absolutely no symptoms. ROS: See above HPI for pertinent positives & negatives. A total of 10 systems reviewed and were otherwise negative. PAST MEDICAL HISTORY:See Below PAST SURGICAL HISTORY:See Below FAMILY HISTORY:See Below SOCIAL HISTORY:See Below HOME MEDICATIONS:See Below ALLERGIES:See Below VITALS:See Below PHYSICAL EXAMINATION: GENERAL: Sitting up in bed, alert, chronically ill-appearing, agitated, shaking EYE EXAM: normal conjunctiva. OROPHARYNX: no exudate, no erythema, lips, buccal mucosa, and tongue normal and mucous membranes are moist NECK: supple, no nuchal rigidity, no adenopathy, non-tender LUNGS: Clear to auscultation. Normal chest wall mechanics HEART: no murmurs, S1 normal and S2 normal BUTTOCKS: 2 small open wounds at the base of the sacrum. No drainage or discharge. No surrounding erythema. ABDOMEN: abdomen soft, non-tender, normo-active bowel sounds, no masses, no rebound or guarding. BACK: Back is symmetrical on inspection and there is no deformity, no midline tenderness, no CVA tenderness. UPPER EXTREMITIES: upper extremities are grossly normal. LOWER EXTREMITIES: Several small ulcers on bilateral lower extremities. NEURO EXAM: Normal sensorium, cranial nerves II-XII grossly intact, normal speech, no gross weakness of arms, no gross weakness of legs. MEDICAL DECISION MAKING: Patient is a 75-year-old male past medical history of diabetes, multiple foot ulcers hypertension, A. fib and CKD that presents the ER for confusion. Upon arrival he is found to be febrile and tachycardic. IVs were established and blood work was obtained. Labs show no significant leukocytosis or anemia. INR was unremarkable. He was taking a NOAC. BMP with LFTs bilirubin was negative. Troponin was detectable but not positive. UA was clean. Patient was given IV antibiotics. Chest x-ray with questionable right lower lobe infiltrate. He was covered with IV antibiotics as discussed previously. He had no exposure to COVID. Discussed with hospitalist and patient was admitted for further work-up. Triage Nursing notes reviewed. Prior medical records reviewed Vital Signs: reviewed and remarkable for febrile Differential diagnosis: Differential diagnosis includes etiologies such as sepsis, UTI, pneumonia, metabolic, electrolyte abnormalities, cardiac sources, intracerebral event, toxicologic, neurological, as well as others were entertained. ER treatment provided: See below Diagnostics interpreted by me: ECG: A. fib rate of 93 Left axis No PVCs Poor baseline Cardiac Monitoring: An order was placed for continuous cardiac monitoring. The monitor shows a rate of 98 with sinus rhythm. Laboratory studies: As stated above and show below. Imaging studies: Portable AP upright 1 view of the chest shows questionable infiltrate. Consultation(s): Discussed with hospitalist for admission. 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) Diabetic foot ulcer associated with type 2 diabetes mellitus Diabetic peripheral neuropathy associated with type 2 diabetes mellitus (Chronic) Gastroesophageal reflux disease (Acute) Hallux valgus (acquired), left foot (Chronic) History of infection with vancomycin resistant Enterococcus (VRE) Hyperlipidemia (Chronic) Hypertension Hypertensive heart disease (Acute) Hypertrophy of nasal turbinates Left foot drop (Chronic) Perirectal abscess Pneumonia (Resolved) Right foot drop (Chronic) Spinal stenosis, lumbar region with neurogenic claudication (Chronic) Surgical History H/O reduction of closed fracture nasal bone fracture Hx of tonsillectomy (Inactive) S/P cataract extraction (Resolved) S/P cervical spinal fusion (Inactive) S/P foot surgery, right Status post cholecystectomy (Inactive) Status post left foot surgery Social History Preferred Language: [place] Communication Ability: Effective Visual Impairment: Limited Hearing Ability: Hard of Hearing Generator Repairer Required: No Beliefs That Will Affect Care: None marital status: Current Living Situation: Alone and Other Current Living Situation Comment: "55 and older community" current occupational status: retired Feels Safe at Home: Yes Smoking Status: Current every day smoker Tobacco Type: cigarettes ; packs per day: 0.5 ; Cigarettes Per Day: 1 every two weeks ; Second Hand Exposure: No ; Hx Alcohol Use: No Hx Substance Use: No Allergies Allergies Allergy/AdvReac Type Severity Reaction Status Date / Time Penicillins Allergy Intermediate RASH Verified 04/13/20 18:09 sulfamethoxazole AdvReac Mild arf, Verified 04/13/20 18:09 [From Bactrim] hyperkalemia trimethoprim [From Bactrim] AdvReac Mild arf, Verified 04/13/20 18:09 hyperkalemia Home Meds Home Medications Medication Instructions Recorded Confirmed Eliquis 5 mg PO BID 01/06/19 04/13/20 Jardiance 10 mg PO QAM 01/06/19 04/13/20 albuterol sulfate [Ventolin HFA] 2 puff INHALATION Q6H PRN 01/06/19 04/13/20 ascorbic acid (vitamin C) [Vitamin 1,000 mg PO QAM 01/06/19 04/13/20 C] digoxin [Digox] 125 mcg PO DAILY@1600 01/06/19 04/13/20 finasteride 5 mg PO QDD 01/06/19 04/13/20 glimepiride 4 mg PO QAM 01/06/19 04/13/20 metformin 1,000 mg PO BID 01/06/19 04/13/20 metoprolol succinate 12.5 mg PO BID 01/06/19 04/13/20 omeprazole 40 mg PO QAM 01/06/19 04/13/20 B-complex with vitamin C [Super B 1 tab PO QPM 07/19/19 04/13/20 Complex-Vitamin C] fluticasone propion-salmeterol 1 inh INHALATION BID 07/19/19 04/13/20 [Advair Diskus] omega 6-[id number]-fish oil [Fish Oil] 1 cap PO QDD 07/19/19 04/13/20 ramipril 5 mg PO BID 07/19/19 04/13/20 diclofenac sodium 2 g TOPICAL BID 09/27/19 04/13/20 oxycodone 15 mg PO Q6H PRN 09/27/19 04/13/20 polyethylene glycol 3350 [Miralax] 17 g PO QAM 09/27/19 04/13/20 prednisolone acetate 1 drp OPHTHALMIC (EYE) QID PRN 09/27/19 04/13/20 acetaminophen [Tylenol Extra 1,000 mg PO Q6H PRN 10/10/19 04/13/20 Strength] multivitamin 1 tab PO QAM 10/10/19 04/13/20 fenofibrate nanocrystallized 48 mg PO HS 10/29/19 04/13/20 [Tricor] pravastatin [Pravachol] 20 mg PO HS 10/29/19 04/13/20 lidocaine 1 patch TOPICAL UD 11/05/19 04/13/20 torsemide 20 mg PO MOWEFR 11/05/19 04/13/20 celecoxib 200 mg capsule 200 mg PO DAILY PRN 11/15/19 04/13/20 baclofen 10 mg PO HS 04/13/20 04/13/20 cholecalciferol (vitamin D3) 2,000 units PO QPM 04/13/20 04/13/20 fentanyl 37.5 mcg TRANSDERMAL USEASDIRECTD 04/13/20 04/13/20 gabapentin [Neurontin] 100 mg PO BID 04/13/20 04/13/20 gabapentin [Neurontin] 300 mg PO HS 04/13/20 04/13/20 magnesium oxide 400 mg PO HS 04/13/20 04/13/20 menthol-zinc oxide [Calmoseptine] 1 applic TOPICAL DAILY PRN 04/13/20 04/13/20 nystatin 1 applic TOPICAL BID 04/13/20 04/13/20 Results & Data (ED) Vital Signs Vital Signs - 24 hr 04/13/20 16:44 04/13/20 16:45 04/13/20 16:46 Temperature 37.9 C H Temperature Source Rectal Pulse Rate 88 92 H 86 Pulse Rate [Left Finger] Pulse Rate from SpO2 Sensor 86 87 Respiratory Rate 23 24 20 Blood Pressure 129/66 113/71 Blood Pressure [Left Arm] Blood Pressure Mean 80 85 Blood Pressure Mean [Left Arm] Pulse Oximetry 92 93 Oxygen Delivery Method Room Air Room Air Room Air Sepsis Recent Fever Within 48 Hours Yes Sepsis New/Unexplained Change in Mental Status Yes Sepsis Action Taken by Nursing No Action Required 04/13/20 16:50 04/13/20 17:00 04/13/20 17:10 Temperature Temperature Source Pulse Rate 84 92 H 92 H Pulse Rate [Left Finger] Pulse Rate from SpO2 Sensor 85 92 H 89 Respiratory Rate 19 19 21 Blood Pressure Blood Pressure [Left Arm] Blood Pressure Mean Blood Pressure Mean [Left Arm] Pulse Oximetry 92 92 94 Oxygen Delivery Method Room Air Room Air Room Air Sepsis Recent Fever Within 48 Hours Sepsis New/Unexplained Change in Mental Status Sepsis Action Taken by Nursing 04/13/20 17:20 04/13/20 17:26 04/13/20 17:30 Temperature Temperature Source Pulse Rate 84 94 H 95 H Pulse Rate [Left Finger] 89 Pulse Rate from SpO2 Sensor 83 93 H 95 H Respiratory Rate 20 18 22 Blood Pressure 127/69 122/80 Blood Pressure [Left Arm] 127/69 Blood Pressure Mean 100 100 Blood Pressure Mean [Left Arm] 88 Pulse Oximetry 91 90 91 Oxygen Delivery Method Room Air Room Air Room Air Sepsis Recent Fever Within 48 Hours Sepsis New/Unexplained Change in Mental Status Sepsis Action Taken by Nursing 04/13/20 17:31 04/13/20 17:40 04/13/20 17:50 Temperature Temperature Source Pulse Rate 89 114 H 103 H Pulse Rate [Left Finger] Pulse Rate from SpO2 Sensor 89 101 H Respiratory Rate 20 18 16 Blood Pressure Blood Pressure [Left Arm] Blood Pressure Mean Blood Pressure Mean [Left Arm] Pulse Oximetry 94 Oxygen Delivery Method Room Air Room Air Room Air Sepsis Recent Fever Within 48 Hours Sepsis New/Unexplained Change in Mental Status Sepsis Action Taken by Nursing 04/13/20 18:00 Temperature Temperature Source Pulse Rate 98 H Pulse Rate [Left Finger] Pulse Rate from SpO2 Sensor Respiratory Rate 16 Blood Pressure Blood Pressure [Left Arm] Blood Pressure Mean Blood Pressure Mean [Left Arm] Pulse Oximetry Oxygen Delivery Method Room Air Sepsis Recent Fever Within 48 Hours Sepsis New/Unexplained Change in Mental Status Sepsis Action Taken by Nursing Laboratory Data Result diagrams: 04/13/20 16:56 04/13/20 16:56 Lab Results 04/13/20 04/13/20 04/13/20 Range/Units 16:56 16:56 16:56 WBC 10.33 (4.8-10.8) K/uL RBC 5.85 (4.7-6.1) M/uL Hgb 14.0 (14.0-18.0) g/dL Hct 44.8 (42-52) % MCV 76.6 L (80-100) fL MCH 23.9 L (25-34) pg MCHC 31.3 L (32-36) g/dL RDW Std Deviation 51.2 H (36.4-46.3) fL RDW Coeff of Naomi 18.3 H (11.5-14.5) % Plt Count 231 (130-400) K/uL MPV 10.5 H (7.4-10.4) fL Immature Gran % (Auto) 0.4 % Neut % (Auto) 72.6 % Lymph % (Auto) 15.3 % [place] % (Auto) 10.6 % Eos % (Auto) 0.6 % Baso % (Auto) 0.5 % Neut # (Auto) 7.51 H (1.4-6.5) K/uL Lymph # (Auto) 1.58 (1.2-3.4) K/uL [place] # (Auto) 1.09 H (0.11-0.59) K/uL Eos # (Auto) 0.06 (0-0.5) K/uL Baso # (Auto) 0.05 (0-0.2) K/uL Immature Gran # (Auto) 0.04 H (0.00-0.02) K/uL PT (9.0-12.0) Seconds INR (0.9-1.1) APTT (21.0-31.0) Seconds PTT Ratio Sodium 139 (136-145) mmol/L Potassium 4.6 (3.5-5.1) mmol/L Chloride 100 (98-107) mmol/L Carbon Dioxide 30 (21-32) mmol/L Anion Gap 9.0 (3-11) BUN 37 H (7-18) mg/dl Creatinine 1.25 (0.6-1.4) mg/dl Est Cr Clr Drug Dosing 58.7 ml/min Est GFR ( Amer) 65.8 Est GFR (Non-Af Amer) 56.8 BUN/Creatinine Ratio 29.3 H (10-20) Glucose 130 H (70-99) mg/dl Lactate 2.0 (0.4-2.0) mmol/L Calcium 9.9 (8.5-10.1) mg/dl Magnesium 2.1 (1.8-2.4) mg/dl Total Bilirubin 0.4 (0.2-1) mg/dl AST 17 (15-37) U/L ALT 29 (12-78) U/L Alkaline Phosphatase 113 (45-117) U/L Troponin I 0.019 (0-0.045) ng/ml NT-Pro-B Natriuret Pep 597 (0-900) pg/ml Total Protein 9.4 H (6.4-8.2) gm/dl Albumin 3.5 (3.4-5.0) gm/dl Globulin 5.9 H (2.5-4.0) gm/dl Albumin/Globulin Ratio 0.6 L (0.9-2) Procalcitonin (0-0.5) ng/ml Urine Color Urine Appearance (Clear) Urine pH (4.5-7.5) Ur Specific [place] (1.000-1.030) Urine Protein (Negative) Urine Glucose (UA) (Negative) Urine Ketones (Negative) Urine Blood (Negative) Urine Nitrite (Negative) Urine Bilirubin (Negative) Urine Urobilinogen (Negative) Ur Leukocyte Esterase (Negative) Urine WBC (Auto) (0-5) /hpf Urine RBC (Auto) (0-4) /hpf U Hyaline Cast (Auto) (0-5) /lpf U Epithel Cells (Auto) (0-5) /lpf Urine Bacteria (Auto) (Negative) Digoxin (0.8-2.0) ng/ml 04/13/20 04/13/20 04/13/20 Range/Units 17:02 17:02 17:02 WBC (4.8-10.8) K/uL RBC (4.7-6.1) M/uL Hgb (14.0-18.0) g/dL Hct (42-52) % MCV (80-100) fL MCH (25-34) pg MCHC (32-36) g/dL RDW Std Deviation (36.4-46.3) fL RDW Coeff of Naomi (11.5-14.5) % Plt Count (130-400) K/uL MPV (7.4-10.4) fL Immature Gran % (Auto) % Neut % (Auto) % Lymph % (Auto) % [place] % (Auto) % Eos % (Auto) % Baso % (Auto) % Neut # (Auto) (1.4-6.5) K/uL Lymph # (Auto) (1.2-3.4) K/uL [place] # (Auto) (0.11-0.59) K/uL Eos # (Auto) (0-0.5) K/uL Baso # (Auto) (0-0.2) K/uL Immature Gran # (Auto) (0.00-0.02) K/uL PT 11.4 (9.0-12.0) Seconds INR 1.1 (0.9-1.1) APTT 33.9 H (21.0-31.0) Seconds PTT Ratio 1.2 Sodium (136-145) mmol/L Potassium (3.5-5.1) mmol/L Chloride (98-107) mmol/L Carbon Dioxide (21-32) mmol/L Anion Gap (3-11) BUN (7-18) mg/dl Creatinine (0.6-1.4) mg/dl Est Cr Clr Drug Dosing ml/min Est GFR ( Amer) Est GFR (Non-Af Amer) BUN/Creatinine Ratio (10-20) Glucose (70-99) mg/dl Lactate (0.4-2.0) mmol/L Calcium (8.5-10.1) mg/dl Magnesium (1.8-2.4) mg/dl Total Bilirubin (0.2-1) mg/dl AST (15-37) U/L ALT (12-78) U/L Alkaline Phosphatase (45-117) U/L Troponin I (0-0.045) ng/ml NT-Pro-B Natriuret Pep (0-900) pg/ml Total Protein (6.4-8.2) gm/dl Albumin (3.4-5.0) gm/dl Globulin (2.5-4.0) gm/dl Albumin/Globulin Ratio (0.9-2) Procalcitonin 0.05 (0-0.5) ng/ml Urine Color Urine Appearance (Clear) Urine pH (4.5-7.5) Ur Specific [place] (1.000-1.030) Urine Protein (Negative) Urine Glucose (UA) (Negative) Urine Ketones (Negative) Urine Blood (Negative) Urine Nitrite (Negative) Urine Bilirubin (Negative) Urine Urobilinogen (Negative) Ur Leukocyte Esterase (Negative) Urine WBC (Auto) (0-5) /hpf Urine RBC (Auto) (0-4) /hpf U Hyaline Cast (Auto) (0-5) /lpf U Epithel Cells (Auto) (0-5) /lpf Urine Bacteria (Auto) (Negative) Digoxin 0.9 (0.8-2.0) ng/ml // Range/Units 17:06 WBC (4.8-10.8) K/uL RBC (4.7-6.1) M/uL Hgb (14.0-18.0) g/dL Hct (42-52) % MCV (80-100) fL MCH (25-34) pg MCHC (32-36) g/dL RDW Std Deviation (36.4-46.3) fL RDW Coeff of Naomi (11.5-14.5) % Plt Count (130-400) K/uL MPV (7.4-10.4) fL Immature Gran % (Auto) % Neut % (Auto) % Lymph % (Auto) % [place] % (Auto) % Eos % (Auto) % Baso % (Auto) % Neut # (Auto) (1.4-6.5) K/uL Lymph # (Auto) (1.2-3.4) K/uL [place] # (Auto) (0.11-0.59) K/uL Eos # (Auto) (0-0.5) K/uL Baso # (Auto) (0-0.2) K/uL Immature Gran # (Auto) (0.00-0.02) K/uL PT (9.0-12.0) Seconds INR (0.9-1.1) APTT (21.0-31.0) Seconds PTT Ratio Sodium (136-145) mmol/L Potassium (3.5-5.1) mmol/L Chloride (98-107) mmol/L Carbon Dioxide (21-32) mmol/L Anion Gap (3-11) BUN (7-18) mg/dl Creatinine (0.6-1.4) mg/dl Est Cr Clr Drug Dosing ml/min Est GFR ( Amer) Est GFR (Non-Af Amer) BUN/Creatinine Ratio (10-20) Glucose (70-99) mg/dl Lactate (0.4-2.0) mmol/L Calcium (8.5-10.1) mg/dl Magnesium (1.8-2.4) mg/dl Total Bilirubin (0.2-1) mg/dl AST (15-37) U/L ALT (12-78) U/L Alkaline Phosphatase (45-117) U/L Troponin I (0-0.045) ng/ml NT-Pro-B Natriuret Pep (0-900) pg/ml Total Protein (6.4-8.2) gm/dl Albumin (3.4-5.0) gm/dl Globulin (2.5-4.0) gm/dl Albumin/Globulin Ratio (0.9-2) Procalcitonin (0-0.5) ng/ml Urine Color Yellow Urine Appearance Clear (Clear) Urine pH 5.0 (4.5-7.5) Ur Specific [place] 1.017 (1.000-1.030) Urine Protein 1+ H (Negative) Urine Glucose (UA) 3+ H (Negative) Urine Ketones Negative (Negative) Urine Blood Negative (Negative) Urine Nitrite Negative (Negative) Urine Bilirubin Negative (Negative) Urine Urobilinogen Negative (Negative) Ur Leukocyte Esterase Negative (Negative) Urine WBC (Auto) 0 (0-5) /hpf Urine RBC (Auto) 0-4 (0-4) /hpf U Hyaline Cast (Auto) 1-5 (0-5) /lpf U Epithel Cells (Auto) 0-5 (0-5) /lpf Urine Bacteria (Auto) Negative (Negative) Digoxin (0.8-2.0) ng/ml Administered Medications Discontinued Medications Vancomycin HCl 2,000 mg/ (Sodium Chloride) 540 mls @ 200 mls/hr IV NOW ONE Stop: 04/13/20 19:37 Last Infusion: 04/13/20 20:17 Dose: 0 mls/hr Documented by: [id number] Admin: 04/13/20 17:29 Dose: 200 mls/hr Documented by: [id number] Cefepime HCl 1,000 mg/ Syringe 11.3 mls @ 5.5 mls/min IV NOW STA; Protocol Stop: 04/13/20 17:26 Last Admin: 04/13/20 17:58 Dose: 5.5 mls/min Documented by: [id number] Discharge Plan Visit Data *Final* Discharge Date/Time: 04/13/20 20:38 Chief Complaint: Illness ED Provider: Gregorio Izaguirre Discharge Problem: Sepsis, Fever, Ulcer, Pneumonia Patient Disposition: Admitted As Inpatient Discharge Instructions Interventions: ED Discharge Assessment Last Done: 04/13/20 20:38 Discharge Problem: Sepsis Qualifiers: Sepsis type: sepsis due to unspecified organism Sepsis acute organ dysfunction status: unspecified Qualified Code(s): A41.9 - Sepsis, unspecified organism Fever Qualifiers: Fever type: unspecified Qualified Code(s): R50.9 - Fever, unspecified Pneumonia Qualifiers: Pneumonia type: due to unspecified organism Laterality: unspecified laterality Lung location: unspecified part of lung Qualified Code(s): J18.9 - Pneumonia, unspecified organism
[2020-04-13] MEDS ORDERED: VANCOMYCIN CONSULT ACTIVE PRN (16:56)
[2020-04-13] MEDS ORDERED: VANCOMYCIN HCL 2,000 MG in SODIUM CHLORIDE 0.9% 500 ML IV ONE (16:56)
[2020-04-13 17:03] LABS: Basophils # (auto) 0.05 K/uL (0-0.2); Basophils % (auto) 0.5 %; Eosinophils # (auto) 0.06 K/uL (0-0.5); Eosinophils % (auto) 0.6 %; Hematocrit (blood only) 44.8 % (42-52); Immature Granulocytes # (auto) 0.04 K/uL (0.00-0.02); Immature Granulocytes % (auto) 0.4 %; Lymphocytes # (auto) 1.58 K/uL (1.2-3.4); Lymphocytes % (auto) 15.3 %; Mean Corpuscular Hemoglobin 23.9 pg (25-34); Mean Corpuscular Hgb Conc 31.3 g/dL (32-36); Mean Corpuscular Volume 76.6 fL (80-100); Mean Platelet Volume 10.5 fL (7.4-10.4); Monocytes # (auto) 1.09 K/uL (0.11-0.59); Monocytes % (auto) 10.6 %; Neutrophils # (auto) 7.51 K/uL (1.4-6.5); Neutrophils % (auto) 72.6 %; Platelet Count 231 K/uL (130-400); RDW Coefficient of Variation 18.3 % (11.5-14.5); RDW Standard Deviation 51.2 fL (36.4-46.3); Red Blood Count 5.85 M/uL (4.7-6.1); White Blood Count 10.33 K/uL (4.8-10.8)
[2020-04-13 17:16] LABS: Appearance Urine Clear (Clear); Bacteria Urine Automated Negative (Negative); Bilirubin Urine Negative (Negative); Blood Urine Negative (Negative); Color Urine Yellow; Epithelial Cell Urine Auto 0-5 /lpf (0-5); Glucose Urine UA 3+ (Negative); Ketones Urine Negative (Negative); Leukocyte Esterase Urine Negative (Negative); Nitrite Urine Negative (Negative); Protein Urine 1+ (Negative); RBC Urine Automated 0-4 /hpf (0-4); Specific Gravity Urine 1.017 (1.000-1.030); Urobilinogen Urine Negative (Negative); WBC Urine Automated 0 /hpf (0-5)
[2020-04-13 17:20] LABS: INR 1.1 (0.9-1.1); Partial Thromboplastin Ratio 1.2; Partial Thromboplastin Time 33.9 Seconds (21.0-31.0); Prothrombin Time 11.4 Seconds (9.0-12.0)
[2020-04-13 17:22] LABS: Albumin Level 3.5 gm/dl (3.4-5.0); BUN Creatinine Ratio 29.3 (10-20); Calcium 9.9 mg/dl (8.5-10.1); Creatinine Clr Calc Pharmacy 58.7 ml/min; Est GFR (African American) 65.8; Est GFR (Non-African American) 56.8; Magnesium 2.1 mg/dl (1.8-2.4); Potassium 4.6 mmol/L (3.5-5.1)
[2020-04-13] MEDS ORDERED: CEFEPIME 1,000 MG in SYRINGE 0 ML IV STA (17:24)
[2020-04-13 17:27] LABS: Albumin Globulin Ratio 0.6 (0.9-2); Bilirubin,Total 0.4 mg/dl (0.2-1); Globulin 5.9 gm/dl (2.5-4.0); Total Protein 9.4 gm/dl (6.4-8.2); Troponin I 0.019 ng/ml (0-0.045)
[2020-04-13] MEDS ORDERED: MENTHOL-ZINC OXIDE 360 APPLN/120 GM TUBE EXT SCH (17:45)
--- NOTE | 2020-04-13 18:32 | XRay Report ---
XR chest 1V portable HISTORY: SEPSIS COMPARISON: Chest 10/29/2019. FINDINGS: No pneumothorax. No pleural effusions. There are low lung volumes. The heart is mildly enla rged. Old, healed left-sided rib fractures. Increased markings within the right medial lung base. The upper lung zones are clear. No evidence for pulmonary edema. Cervical spinal fusion hardware. IMPRESSION: Increased markings within the right medial lung base. This favors atelectasis given the low lung volu mes. A pneumonia cannot be excluded. ACT 112: Negative or not required by law. Electronically signed by: Mina Buchanan M.D. 04/13/2020 6:31 PM
[2020-04-13 18:41] LABS: Base Excess VBG 6.5 mEq/L; HCO3 VBG 32 mmol/L; Oxygen Saturation VBG < 60.0 %; PCO2 VBG 52 mmHg (38-50); PO2 VBG 23 mmHg; pH VBG 7.41 (7.36-7.41)
--- NOTE | 2020-04-13 18:53 | History & Physical Report ---
Date of Service April 13, 2020 Assessment & Plan (1) Altered mental status: Patient with possible syncopal episode on the toilet this evening where his daughter found him. He had confusion and weakness upon arousing which is unusual for him. Admit to med/surg with tele Patient is on high doses of opioids, so consider this a possible contributing factor. Infectious source could also be a reason for AMS. Abx initiated in the ED. Head CT ordered. Urine unremarkable. Vitals stable. Low grade fever. Fall precautions/aspiration precautions. Recheck labs in AM (2) COPD (chronic obstructive pulmonary disease): (3) Pneumonia: (4) Fever: (5) Hypoxia: RLL possible pneumonia on CXR. Start Cefepime and Doxy. MRSA swab pending- no hx of MRSA COVID pending Continue supplemental O2 to maintain SaO2 >90% Sputum culture if able to obtain (6) Diabetes mellitus type 2 with complications: (7) Diabetic peripheral neuropathy associated with type 2 diabetes mellitus: Insulin while inpatient Stop PO meds. (8) Lower extremity edema: (9) Venous ulcers of both lower extremities: (10) Stage II pressure ulcer of left buttock: (11) Gfxhrkb-Jzsip-Sgnku disease: (12) Hypertension: (13) CKD (chronic kidney disease), stage III: (14) Tobacco use: Encourage cessation (15) Opioid dependence: Possible contributing factor to AMS. Monitor use. Discuss misuse. (16) Paroxysmal atrial fibrillation: (17) Hypertensive heart disease: Chronically on Eliquis. Continue while inpatient pending Head CT. Monitor on Med/Surg with Tele. (18) Ambulatory dysfunction: PT/OT Fall precautions (19) Arthritis: Chronic pain medications- see Dr. Fuentes's addendum for any changes. (20) DVT prophylaxis: Continue Eliquis History of Present Illness Chief Complaint: AMS Primary Care Provider: Mohan Perry MD Patient is a 75 yo male with a complicated PMHx who presented to the ED for confusion. The history is taken primarily from the record and the patient's daughter, Shantell because of AMS. The patient's daughter found his asleep on his toilet this afternoon. When she tried to arouse him, the patient was very disoriented and didn't know where he was or what day it was. He was very wobbly and weak. He tried to get up from the toilet and fell back down onto the seat. The daughter says that the confusion and weakness is very unlike him. He does have chronic lower extremity wounds. He is seen by the wound clinic on a regular basis. He was recently on a course of Cipro and Clindamycin x 2 weeks for his LE wounds. He finished this about 1 week ago. His daughter states that his legs "always look bad", but look better than they have in a while. His left posterior leg has been swollen and more tender than usual though. He does also have a right great toe wound, small sacral decubitus wound, and overall has blistering on the anterior legs often. He is on high doses of narcotic pain medications at home because of chronic pain. He has neuropathic pain, osteoarthritis pain, and possibly claudication pain per his daughter. He is anticipated to have studies done for PAD in the near future. He has been using Non-THC CBD oil at home from time to time as well to try to help with his pain. His daughter also notes that he is supposed to take 1.5 tablets of 10 mg Oxycodone Q6h PRN pain throughout the day, but he often takes 2 tablets at a time and takes this 3-4 times per day regularly. He does have Narcan at home, and she thought about using it this morning but did not. He has chronic right shoulder pain. He recently has been smoking more at home, and his daughter has noted 3-4 days of increased coughing at home. He has been slightly more SOB at home as well because of the cough. He has been using his albuterol inhaler more over the past couple of days. He was previously offered a spot in an assisted living facility but refused to go. Since presentation to the ED, the patient was noted to have a normal WBC count, within normal Lactic acid, and negative procalcitonin. Troponin was detectable but not elevated. BNP was normal. Urine was unremarkable. CXR showed increased marking in the RLL which could favor pneumonia. SaO2 has been ranging from 85-94% on room air per ED doc. Allergies Allergy/AdvReac Type Severity Reaction Status Date / Time Penicillins Allergy Intermediate RASH Verified 04/13/20 18:09 sulfamethoxazole AdvReac Mild arf, Verified 04/13/20 18:09 [From Bactrim] hyperkalemia trimethoprim [From Bactrim] AdvReac Mild arf, Verified 04/13/20 18:09 hyperkalemia Home Medications Home Medications Medication Instructions Recorded Confirmed Type Eliquis 5 mg PO BID 01/06/19 04/13/20 History Jardiance 10 mg PO QAM 01/06/19 04/13/20 History albuterol sulfate [Ventolin HFA] 2 puff INHALATION Q6H PRN 01/06/19 04/13/20 History ascorbic acid (vitamin C) [Vitamin 1,000 mg PO QAM 01/06/19 04/13/20 History C] digoxin [Digox] 125 mcg PO DAILY@1600 01/06/19 04/13/20 History finasteride 5 mg PO QDD 01/06/19 04/13/20 History glimepiride 4 mg PO QAM 01/06/19 04/13/20 History metformin 1,000 mg PO BID 01/06/19 04/13/20 History metoprolol succinate 12.5 mg PO BID 01/06/19 04/13/20 History omeprazole 40 mg PO QAM 01/06/19 04/13/20 History B-complex with vitamin C [Super B 1 tab PO QPM 07/19/19 04/13/20 History Complex-Vitamin C] fluticasone propion-salmeterol 1 inh INHALATION BID 07/19/19 04/13/20 History [Advair Diskus] omega 5-klo-vxl-fish oil [Fish Oil] 1 cap PO QDD 07/19/19 04/13/20 History ramipril 5 mg PO BID 07/19/19 04/13/20 History diclofenac sodium 2 g TOPICAL BID 09/27/19 04/13/20 History oxycodone 15 mg PO Q6H PRN 09/27/19 04/13/20 History polyethylene glycol 3350 [Miralax] 17 g PO QAM 09/27/19 04/13/20 History prednisolone acetate 1 drp OPHTHALMIC (EYE) QID PRN 09/27/19 04/13/20 History acetaminophen [Tylenol Extra 1,000 mg PO Q6H PRN 10/10/19 04/13/20 History Strength] multivitamin 1 tab PO QAM 10/10/19 04/13/20 History fenofibrate nanocrystallized 48 mg PO HS 10/29/19 04/13/20 History [Tricor] pravastatin [Pravachol] 20 mg PO HS 10/29/19 04/13/20 History lidocaine 1 patch TOPICAL UD 11/05/19 04/13/20 History torsemide 20 mg PO MOWEFR 11/05/19 04/13/20 History celecoxib 200 mg capsule 200 mg PO DAILY PRN 11/15/19 04/13/20 History baclofen 10 mg PO HS 04/13/20 04/13/20 History cholecalciferol (vitamin D3) 2,000 units PO QPM 04/13/20 04/13/20 History fentanyl 37.5 mcg TRANSDERMAL USEASDIRECTD 04/13/20 04/13/20 History gabapentin [Neurontin] 100 mg PO BID 04/13/20 04/13/20 History gabapentin [Neurontin] 300 mg PO HS 04/13/20 04/13/20 History magnesium oxide 400 mg PO HS 04/13/20 04/13/20 History menthol-zinc oxide [Calmoseptine] 1 applic TOPICAL DAILY PRN 04/13/20 04/13/20 History nystatin 1 applic TOPICAL BID 04/13/20 04/13/20 History Past Med/Surg History Medical History (Updated 04/13/20 @ 19:08 by Malaika Gordon PA-C) 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) Acquired deviated nasal septum Acquired hallux valgus of right foot (Chronic) Atrial fibrillation Atrial flutter (Inactive) Choledocholithiasis (Resolved) Chronic sinusitis CKD (chronic kidney disease), stage III CMT (Pluxlde-Fdaks-Agtze disease) (Chronic) COPD (chronic obstructive pulmonary disease) (Chronic) Degenerative disc disease 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) Diabetic foot ulcer associated with type 2 diabetes mellitus Diabetic peripheral neuropathy associated with type 2 diabetes mellitus (Chronic) Gastroesophageal reflux disease (Acute) Hallux valgus (acquired), left foot (Chronic) History of infection with vancomycin resistant Enterococcus (VRE) Hyperlipidemia (Chronic) Hypertension Hypertensive heart disease (Acute) Hypertrophy of nasal turbinates Left foot drop (Chronic) Perirectal abscess Pneumonia (Resolved) Right foot drop (Chronic) Spinal stenosis, lumbar region with neurogenic claudication (Chronic) Surgical History H/O reduction of closed fracture nasal bone fracture Hx of tonsillectomy (Inactive) S/P cataract extraction (Resolved) S/P cervical spinal fusion (Inactive) S/P foot surgery, right Status post cholecystectomy (Inactive) Status post left foot surgery Social History Preferred Language: Moroccan Communication Ability: Effective Visual Impairment: Limited Hearing Ability: Hard of Hearing Drug Enforcement Administration Agent Required: No Beliefs That Will Affect Care: None marital status: Current Living Situation: Alone and Other Current Living Situation Comment: "55 and older community" current occupational status: retired Feels Safe at Home: Yes Smoking Status: Current every day smoker Tobacco Type: cigarettes ; packs per day: 0.5 ; Cigarettes Per Day: 1 every two weeks ; Second Hand Exposure: No ; Hx Alcohol Use: No Hx Substance Use: No Review of Systems Review of Systems: All systems reviewed & are unremarkable except as noted in HPI & below Physical Exam Physical Exam: See Dr. Fuentes's addendum for Physical Exam. Results & Data Results & Data ([facility]) Vital Signs (Past 12 Hours) Vital Signs Temp Pulse Pulse Resp BP BP Pulse Ox 04/13/20 17:26 89 20 127/69 91 04/13/20 16:45 37.9 C H 92 H 24 113/71 93 Laboratory Results Laboratory Results - last 24 hr 04/13/20 04/13/20 04/13/20 16:56 16:56 16:56 WBC 10.33 RBC 5.85 Hgb 14.0 Hct 44.8 MCV 76.6 L MCH 23.9 L MCHC 31.3 L RDW Std Deviation 51.2 H RDW Coeff of Naomi 18.3 H Plt Count 231 MPV 10.5 H Immature Gran % (Auto) 0.4 Neut % (Auto) 72.6 Lymph % (Auto) 15.3 Barrow % (Auto) 10.6 Eos % (Auto) 0.6 Baso % (Auto) 0.5 Neut # (Auto) 7.51 H Lymph # (Auto) 1.58 Barrow # (Auto) 1.09 H Eos # (Auto) 0.06 Baso # (Auto) 0.05 Immature Gran # (Auto) 0.04 H PT INR APTT PTT Ratio VBG pH VBG pCO2 VBG pO2 VBG HCO3 VBG O2 Saturation VBG Base Excess Barometric Pressure Sodium 139 Potassium 4.6 Chloride 100 Carbon Dioxide 30 Anion Gap 9.0 BUN 37 H Creatinine 1.25 Est Cr Clr Drug Dosing 58.7 Est GFR ( Amer) 65.8 Est GFR (Non-Af Amer) 56.8 BUN/Creatinine Ratio 29.3 H Glucose 130 H Lactate 2.0 Calcium 9.9 Magnesium 2.1 Total Bilirubin 0.4 AST 17 ALT 29 Alkaline Phosphatase 113 Troponin I 0.019 NT-Pro-B Natriuret Pep 597 Total Protein 9.4 H Albumin 3.5 Globulin 5.9 H Albumin/Globulin Ratio 0.6 L Procalcitonin Urine Color Urine Appearance Urine pH Ur Specific Dutton Urine Protein Urine Glucose (UA) Urine Ketones Urine Blood Urine Nitrite Urine Bilirubin Urine Urobilinogen Ur Leukocyte Esterase Urine WBC (Auto) Urine RBC (Auto) U Hyaline Cast (Auto) U Epithel Cells (Auto) Urine Bacteria (Auto) Digoxin COVID-19 PCR 04/13/20 04/13/20 04/13/20 17:02 17:02 17:02 WBC RBC Hgb Hct MCV MCH MCHC RDW Std Deviation RDW Coeff of Naomi Plt Count MPV Immature Gran % (Auto) Neut % (Auto) Lymph % (Auto) Barrow % (Auto) Eos % (Auto) Baso % (Auto) Neut # (Auto) Lymph # (Auto) Barrow # (Auto) Eos # (Auto) Baso # (Auto) Immature Gran # (Auto) PT 11.4 INR 1.1 APTT 33.9 H PTT Ratio 1.2 VBG pH VBG pCO2 VBG pO2 VBG HCO3 VBG O2 Saturation VBG Base Excess Barometric Pressure Sodium Potassium Chloride Carbon Dioxide Anion Gap BUN Creatinine Est Cr Clr Drug Dosing Est GFR ( Amer) Est GFR (Non-Af Amer) BUN/Creatinine Ratio Glucose Lactate Calcium Magnesium Total Bilirubin AST ALT Alkaline Phosphatase Troponin I NT-Pro-B Natriuret Pep Total Protein Albumin Globulin Albumin/Globulin Ratio Procalcitonin 0.05 Urine Color Urine Appearance Urine pH Ur Specific Dutton Urine Protein Urine Glucose (UA) Urine Ketones Urine Blood Urine Nitrite Urine Bilirubin Urine Urobilinogen Ur Leukocyte Esterase Urine WBC (Auto) Urine RBC (Auto) U Hyaline Cast (Auto) U Epithel Cells (Auto) Urine Bacteria (Auto) Digoxin 0.9 COVID-19 PCR 04/13/20 04/13/20 04/13/20 17:06 18:24 18:50 WBC RBC Hgb Hct MCV MCH MCHC RDW Std Deviation RDW Coeff of Naomi Plt Count MPV Immature Gran % (Auto) Neut % (Auto) Lymph % (Auto) Barrow % (Auto) Eos % (Auto) Baso % (Auto) Neut # (Auto) Lymph # (Auto) Barrow # (Auto) Eos # (Auto) Baso # (Auto) Immature Gran # (Auto) PT INR APTT PTT Ratio VBG pH 7.41 VBG pCO2 52 H VBG pO2 23 VBG HCO3 32 VBG O2 Saturation < 60.0 VBG Base Excess 6.5 Barometric Pressure 729.0 Sodium Potassium Chloride Carbon Dioxide Anion Gap BUN Creatinine Est Cr Clr Drug Dosing Est GFR ( Amer) Est GFR (Non-Af Amer) BUN/Creatinine Ratio Glucose Lactate Calcium Magnesium Total Bilirubin AST ALT Alkaline Phosphatase Troponin I NT-Pro-B Natriuret Pep Total Protein Albumin Globulin Albumin/Globulin Ratio Procalcitonin Urine Color Yellow Urine Appearance Clear Urine pH 5.0 Ur Specific Dutton 1.017 Urine Protein 1+ H Urine Glucose (UA) 3+ H Urine Ketones Negative Urine Blood Negative Urine Nitrite Negative Urine Bilirubin Negative Urine Urobilinogen Negative Ur Leukocyte Esterase Negative Urine WBC (Auto) 0 Urine RBC (Auto) 0-4 U Hyaline Cast (Auto) 1-5 U Epithel Cells (Auto) 0-5 Urine Bacteria (Auto) Negative Digoxin COVID-19 PCR Pending Diagnostic Findings CXR: IMPRESSION: Increased markings within the right medial lung base. This favors atelectasis given the low lung volumes. A pneumonia cannot be excluded. CT head:Mild motion artifact. No definite acute intracranial abnormality. Code Status & VTE Plan VTE Prophylaxis Plan VTE Prophylaxis will be ordered: Yes Supervising Physician Co-Signing Physician Notes Patient is a 75-year-old man with history of diabetes, CKD stage III, obesity, GERD, tobacco use disorder, Charcot's Fidelia tooth disease, atrial fibrillation, chronic bilateral lower extremity wounds/venous ulcers and other medical problems presents with a history of altered mental status, possible syncope, imbalance issues, worsening cough with whitish expectoration, chronic pain. Patient's daughter concerned about excessive use of narcotics by the patient which probably causing the change in mental status. Currently while in ED on my examination, patient is oriented x3. Daughter agrees that his mental status improved while in ED. Patient's daughter states that she removed the fentanyl patch today. He denies losing consciousness yesterday. He admits to sleeping while on toilet. CT head showed no acute intracranial abnormality. Chest x-ray showed increased markings within the right medial lung base. Currently saturating low 90s on room air. Physical Exam: Vitals signs as noted above General Appearance:Obese, no apparent distress Head: normocephalic, Atraumatic Eyes: normal inspection, EOMI Neck: supple, Trachea midline Respiratory/Chest: Decreased breath sounds, CTA, No accessory muscle use Cardiovascular: Irregularly irregular, tachycardia, No murmur Abdomen/GI:Soft, Non tender, Obese, Bowel sounds present Extremities/Musculoskelatal:normal inspection, B/L LE edema, Erythema, mild warmth Multiple wounds/ulcers, Chronic venous stasis changes, Charcot's Jts Neurologic/Psych:AAOX3, grossly no focal neurological deficits Skin: normal color, warm Altered Mental Status Likely multifactorial: Medications, Infection Minimize narcotic use as able CT head showed no acute findings Mental status improved while in ED Check Tox screen, Digoxin levels Monitor Community-acquired pneumonia Hypoxia COPD Ongoing tobacco use R/O COVID No volume overload changes on chest x-ray No wheezing on exam Supplemental oxygen as needed Broad-spectrum IV antibiotics Blood Cx Nebs PRN on Eliquis for afib Biofire pending Update echo May need to step prior to discharge Possible leg Cellulitis B/L LE wounds/Swelling R/O DVT Could have underlying PAD Wound Care Check Venous Doppler I personally reviewed the record. Patient is interviewed and examined at bedside. Patient's care is coordinated with Malaika Gordon PA-C. Please refer to the documentation above for details of patient's presentation and for discussion of other issues.
--- NOTE | 2020-04-13 19:31 | CT Scan Report ---
HEAD CT NONCONTRAST CT DOSE: 810.83 mGy.cm HISTORY: Confusion TECHNIQUE: Multiaxial CT images of the head were performed without the use of intravenous contrast. A utomated exposure control was utilized for this study. A dose lowering technique was utilized adheri ng to the principles of ALARA. Comparison: Head CT 10/29/2019. Findings: Stable 2 cm polypoid focus within the right maxillary sinus and opacified right frontal sin us. There is partial opacification of the anterior ethmoid air cells. The calvarium and skull base ar e intact. There is no mass, hematoma, midline shift, acute infarct. White matter hypodensity is nonsp ecific but suggestive of microvascular ischemic change. The ventricles and sulci demonstrate mild age -related involutional changes. Mild motion artifact. Impression: Mild motion artifact. No definite acute intracranial abnormality. ACT 112: Negative or not required by law. Electronically signed by: Mina Buchanan M.D. 04/13/2020 7:29 PM
[2020-04-13 19:56] LABS: Adenovirus PCR Not Detected (NotDetected); Bordetella parapertussis PCR Not Detected (NotDetected); Bordetella pertussis PCR Not Detected (NotDetected); Chlamydia pneumoniae PCR Not Detected (NotDetected); Coronavirus 229E PCR Not Detected (NotDetected); Coronavirus HKU1 PCR Not Detected (NotDetected); Coronavirus NL63 PCR Not Detected (NotDetected); Coronavirus OC43PCR Not Detected (NotDetected); Human Metapneumovirus PCR Not Detected (NotDetected); Influenza A PCR Not Detected (NotDetected); Influenza B PCR Not Detected (NotDetected); Mycoplasma pneumoniae PCR Not Detected (NotDetected); Parainfluenza Virus 1 PCR Not Detected (NotDetected); Parainfluenza Virus 2 PCR Not Detected (NotDetected); Parainfluenza Virus 3 PCR Not Detected (NotDetected); Parainfluenza Virus 4 PCR Not Detected (NotDetected); Respiratory Syncytial VirusPCR Not Detected (NotDetected); Rhinovirus/Enterovirus PCR Not Detected (NotDetected)
[2020-04-13] MEDS ORDERED: GLUCAGON FOR INJ 1 MG VIAL SQ PRN (21:10)
[2020-04-13] MEDS ORDERED: GLUCOSE 10 TABS/TUBE PO PRN (21:10)
[2020-04-13] MEDS ORDERED: DEXTROSE 50% 50 ML SYRINGE IV PRN (21:10)
[2020-04-13] MEDS ORDERED: GLUCOSE 40% GEL 15 GM TUBE PO PRN (21:10)
[2020-04-13] MEDS ORDERED: ALBUT/IPRATROP 3MG/0.5MG NEB 3 ML VIAL NEB PRN (21:10)
[2020-04-13] MEDS ORDERED: CARBOHYDRATES FOR HYPOGLYCEMIA PO PRN (21:10)
[2020-04-13] MEDS ORDERED: MENTHOL-ZINC OXIDE 360 APPLN/120 GM TUBE EXT PRN (21:10)
[2020-04-13] MEDS ORDERED: POLYETHYLENE (MIRALAX) 17 GM PACK PO PRN (21:10)
[2020-04-13] MEDS ORDERED: CEFEPIME CONSULT ACTIVE PRN (21:41)
[2020-04-13] MEDS: DICLOFENAC SOD 1% GEL 100 GM TUBE EXT SCH (22:25)
[2020-04-13] MEDS: APIXABAN 5 MG TABLET PO SCH (22:26)
[2020-04-13] MEDS: OXYCODONE HCL IR 5 MG TAB (IMMEDIATE RELEASE) PO PRN (22:26)
[2020-04-13] MEDS: DOXYCYCLINE HYCLATE 100 MG CAP PO SCH (22:27)
[2020-04-13] MEDS: FENOFIBRATE NANOCRYSTALLIZED 48 MG TABLET PO SCH (22:28)
[2020-04-13] MEDS: GABAPENTIN 100 MG CAP PO SCH (22:29)
[2020-04-13] MEDS: BACLOFEN 10 MG TAB PO SCH (22:29)
[2020-04-13] MEDS: CHOLECALCIFEROL 1,000 UNITS 25 MCG TAB PO SCH (22:29)
[2020-04-13] MEDS: METOPROLOL SUCC 25MG EXT REL TAB PO SCH (22:30)
[2020-04-13] MEDS: ENALAPRIL MALEATE 10 MG TAB PO SCH (22:31)
[2020-04-13] MEDS: PRAVASTATIN SOD 20 MG TAB PO SCH (22:32)
[2020-04-13] MEDS: INSULIN ASPART 100 UNITS/ML 3 ML PEN SC SCH (22:33)
[2020-04-13] MEDS: INSULIN GLARGINE SOLOSTAR 100 UNITS/ML 3 ML PEN SC SCH (22:34)
[2020-04-13 23:48] LABS: Amphetamines+Metham, Urine Neg (Neg); Barbiturates, Urine Neg (Neg); Benzodiazepine, Urine Neg (Neg); Cocaine, Urine Neg (Neg); MDMA (Ecstacy), Urine Neg (Neg); Methadone, Urine Neg (Neg); Opiate, Urine Neg (Neg); Phencyclidine, Urine Neg (Neg)
[2020-04-14] MEDS: CEFEPIME 2,000 MG in SYRINGE 7.5 ML IV SCH ×3 (01:23→17:23)
[2020-04-14] MEDS: ACETAMINOPHEN 325 MG TAB PO PRN ×3 (02:44→18:47)
[2020-04-14] MEDS: OXYCODONE HCL IR 5 MG TAB (IMMEDIATE RELEASE) PO PRN ×4 (04:50→20:53)
[2020-04-14 06:58] LABS: Basophils # (auto) 0.04 K/uL (0-0.2); Basophils % (auto) 0.4 %; Eosinophils # (auto) 0.11 K/uL (0-0.5); Eosinophils % (auto) 1.2 %; Hematocrit (blood only) 39.6 % (42-52); Hemoglobin 12.1 g/dL (14.0-18.0); Immature Granulocytes # (auto) 0.04 K/uL (0.00-0.02); Immature Granulocytes % (auto) 0.4 %; Lymphocytes # (auto) 1.76 K/uL (1.2-3.4); Lymphocytes % (auto) 19.7 %; Mean Corpuscular Hemoglobin 23.3 pg (25-34); Mean Corpuscular Hgb Conc 30.6 g/dL (32-36); Mean Corpuscular Volume 76.2 fL (80-100); Mean Platelet Volume 10.6 fL (7.4-10.4); Monocytes # (auto) 1.04 K/uL (0.11-0.59); Monocytes % (auto) 11.6 %; Neutrophils # (auto) 5.96 K/uL (1.4-6.5); Neutrophils % (auto) 66.7 %; Platelet Count 229 K/uL (130-400); RDW Coefficient of Variation 18.3 % (11.5-14.5); RDW Standard Deviation 50.8 fL (36.4-46.3); White Blood Count 8.95 K/uL (4.8-10.8)
[2020-04-14 07:38] LABS: Calcium 9.3 mg/dl (8.5-10.1); Creatinine Clr Calc Pharmacy 71.2 ml/min; Est GFR (African American) 83.1; Est GFR (Non-African American) 71.7; Magnesium 1.9 mg/dl (1.8-2.4); Potassium 3.9 mmol/L (3.5-5.1)
[2020-04-14] MEDS: DICLOFENAC SOD 1% GEL 100 GM TUBE EXT SCH ×2 (08:48→20:58)
[2020-04-14] MEDS: GABAPENTIN 100 MG CAP PO SCH ×2 (08:57→14:27)
[2020-04-14] MEDS: PANTOprazole 40 MG TAB PO SCH (08:57)
[2020-04-14] MEDS: ENALAPRIL MALEATE 10 MG TAB PO SCH ×3 (08:57→20:59)
[2020-04-14] MEDS: APIXABAN 5 MG TABLET PO SCH ×2 (08:59→20:56)
[2020-04-14] MEDS: DOXYCYCLINE HYCLATE 100 MG CAP PO SCH ×2 (08:59→20:56)
[2020-04-14] MEDS: NICOTINE 21 MG/24 HR TDSY TD SCH (09:00)
[2020-04-14] MEDS: METOPROLOL SUCC 25MG EXT REL TAB PO SCH ×3 (09:00→21:00)
[2020-04-14] MEDS ORDERED: TORSEMIDE 10 MG TAB PO SCH (09:00)
[2020-04-14] MEDS: FLUTICASONE/VILANTEROL 100/25MCG 14 PUFFS/INHALER INH SCH (09:01)
[2020-04-14 09:24] LABS: Estimated Average Glucose 194 mg/dl; Hemoglobin A1C 8.4 % (4.5-5.6)
[2020-04-14] MEDS ORDERED: VANCOMYCIN HCL 1,500 MG in SODIUM CHLORIDE 0.9% 500 ML IV SCH (10:00)
[2020-04-14] MEDS: INSULIN ASPART 100 UNITS/ML 3 ML PEN SC SCH ×4 (10:50→20:54)
[2020-04-14] MEDS: INSULIN GLARGINE SOLOSTAR 100 UNITS/ML 3 ML PEN SC SCH ×2 (10:51→20:55)
--- NOTE | 2020-04-14 12:04 | Ultrasound Report ---
BILATERAL LOWER EXTREMITY VENOUS DOPPLER HISTORY: Acute pain and swelling of the bilateral lower extremity swelling R/O DVT COMPARISON STUDY: Duplex venous Doppler study 03/23/2018 FINDINGS: There is normal compressibility, flow, and augmentation within the bilateral lower extremit y deep venous systems. IMPRESSION: No DVT within the right or left lower extremity. ACT 112: Negative or not required by law. Electronically signed by: Iván Murphy M.D. 04/14/2020 12:03 PM
[2020-04-14] MEDS ORDERED: NON-FORMULARY MEDICATION (Fentanyl 37.5 MCG) TD SCH (12:30)
[2020-04-14] MEDS ORDERED: MICONAZOLE NITRATE POWDER 43 GM EXT PRN (12:32)
--- NOTE | 2020-04-14 12:32 | Hospitalist Progress Note ---
Date of Service April 14, 2020 Assessment & Plan (1) Acute metabolic encephalopathy: resolved and he is back on his home dosage of narcotics and doing well. Likely related to pneumonia and improved with antibiotics overnight. (2) Pneumonia: MRSA neg so will stop Vanc with clinical improvement. Cont cefepime for now, however, do not feel his wounds were contributing to this with the report of the harsh acute cough and the smoking. COVID-19 serology is negative. Transition to PO abx in am pending blood cultures and continued clinical improvement. (3) COPD (chronic obstructive pulmonary disease): stable, no evidence of COPD exacerbation. (4) Hypoxia: Present initially likely 2/2 pneumonia, however, this resolved with treatment. (5) Diabetes mellitus type 2 with complications: basal/bolus insulin during his hospitalization. A1C is >8 reflecting poor control, which daughter reports is actually improved. (6) Stage II pressure ulcer of left buttock: (7) Pusayot-Otlvr-Dlbuw disease: Cont narcotics for pain control. (8) Hypertension: around goal but somewhat situational elevation after being off narcotics for a day. Cont ramipril and torsemide per home regimen. (9) CKD (chronic kidney disease), stage III: at goal, avoid nephrotoxic substances. (10) Tobacco use: Avidly encouraged smoking cessation. Contemplating nicotine patches at discharge as he has failed a trial of Chantix in the past. (11) Opioid dependence: This is chronic for him, and he is tolerant. Mental status has greatly improved and he is back on his home dosages and feeling better. (12) Paroxysmal atrial fibrillation: Cont Eliquis, Digoxin, and metoprolol per home regimen. (13) Ambulatory dysfunction: Pt and OT to evaluate for safety to retuen home. He is alone for 12 hours overnight and has caregivers with him the other half day. He can stand and independently transfer from his wheelchair at baseline, and appears there now. (14) DVT prophylaxis: Eliquis Full Code Dispo-to home tomorrow with continued HH DO Amor Nolan Hospitalist Admission and Anticipated Discharge Date Admission Date: April 13, 2020 Subjective Patient doing much better this evening, he is tolerating all his food. He is speaking with no conversational dyspnea and denies any shortness of breath. After discussion with his daughters he has had a nasty cough for 1 week and some fever prior to arrival. Work-up reveals a right sided pneumonia with no evid ence of leukocytosis. He is remained hemodynamically stable and afebrile oxygenating well on room air all day. He is asking to go home, however, is fine with staying overnight. His home narcotics were increased around lunchtime to his home dosing, which improved his pain. He denied needing any IV narcotic at this time. Review of Systems Review of Systems: All systems reviewed & are unremarkable except as noted in Subjective Physical Exam Physical Exam: CONSTITUTIONAL: WNWD, vitals as above, generally well- appearing EYES: normal conjunctivae, no scleral icterus ENT: external ear and nose normal, oropharynx clear,MMM RESPIRATORY: clear except for slight wheezing at the right base with some scant coarse crackles in this area, also. No increased respiratory effort and no conversational dyspnea on room air. CARDIOVASCULAR: regular rate and rhythm, S1 and 2 heard without murmurs, gallops or rubs, no JVD, no peripheral edema GASTROINTESTINAL: normal bowel sounds, soft, nontender, nondistended. MUSCULOSKELETAL: strength 5/5 throughout, head is normocephalic and atraumatic, significant bilateral hand deformities 2/2 known comorbidities. SKIN: warm and dry, wound on feet are covered with no surrounding areas of redness. NEUROLOGIC: No facial palsy, no dysarthria. CN 2-12 grossly intact, normal cognition, normal speech, no tremor. No gross focal deficit. PSYCHIATRIC: alert cooperative and oriented to person, place and time. Results & Data Results & Data ([facility] Vital Signs (Past 12 Hours) Vital Signs Temp Pulse Pulse Resp BP Pulse Ox 04/14/20 11:39 95 H 18 125/75 91 04/14/20 07:17 36.5 C 80 18 133/67 95 04/14/20 07:01 78 04/14/20 03:00 36.5 C 04/14/20 02:04 107 H Laboratory Results Short CBC 04/13/20 04/14/20 Range/Units 16:56 06:39 WBC 10.33 8.95 (4.8-10.8) K/uL Hgb 14.0 12.1 L (14.0-18.0) g/dL Hct 44.8 39.6 L (42-52) % Plt Count 231 229 (130-400) K/uL BMP 04/13/20 04/14/20 16:56 06:39 Sodium 139 136 Potassium 4.6 3.9 D Chloride 100 102 Carbon Dioxide 30 28 BUN 37 H 33 H Creatinine 1.25 1.03 Glucose 130 H 140 H Calcium 9.9 9.3 Cardiac Enzymes 04/13/20 Range/Units 16:56 Troponin I 0.019 (0-0.045) ng/ml Liver Function 04/13/20 Range/Units 16:56 Total Bilirubin 0.4 (0.2-1) mg/dl AST 17 (15-37) U/L ALT 29 (12-78) U/L Alkaline Phosphatase 113 (45-117) U/L Albumin 3.5 (3.4-5.0) gm/dl Urine 04/13/20 Range/Units 17:06 Urine Color Yellow Urine Appearance Clear (Clear) Urine pH 5.0 (4.5-7.5) Ur Specific [place] 1.017 (1.000-1.030) Urine Protein 1+ H (Negative) Urine Glucose (UA) 3+ H (Negative) Medications Administered Current Inpatient Medications Acetaminophen (Tylenol) 650 mg PO Q4H PRN PRN Reason: pain/fever Stop: 05/13/20 21:09 Last Admin: 04/14/20 08:53 Dose: 650 mg Documented by: Albuterol (Duoneb) 3 ml NEB Q4R PRN PRN Reason: Shortness Of Breath Or Wheezing Stop: 05/13/20 21:09 Apixaban (Eliquis) 5 mg PO BID BETHANY Stop: 05/13/20 21:09 Last Admin: 04/14/20 08:59 Dose: 5 mg Documented by: Baclofen (Lioresal) 10 mg PO HS BETHANY Stop: 05/13/20 21:09 Last Admin: 04/13/20 22:29 Dose: 10 mg Documented by: Calamine/Phenol (Calmoseptine) 1 appln EXT DAILY PRN PRN Reason: Rash Stop: 05/13/20 21:09 Dextrose (Dextrose 50%) 25 - 50 ml IV UD PRN; Protocol PRN Reason: Hypoglycemia Protocol Stop: 05/13/20 21:09 Diclofenac Sodium (Voltaren 1% Top) 2 gm EXT BID BETHANY Stop: 08/18/20 21:09 Last Admin: 04/14/20 08:48 Dose: 2 gm Documented by: Digoxin (Lanoxin) 0.125 mg PO DAILY@1600 [facility] Stop: 05/14/20 15:59 Doxycycline Hyclate (Vibramycin) 100 mg PO BID [facility] Stop: 04/20/20 21:09 Last Admin: 04/14/20 08:59 Dose: 100 mg Documented by: Enalapril Maleate (Vasotec) 20 mg PO BID [facility] Stop: 05/13/20 21:09 Last Admin: 04/14/20 08:57 Dose: 20 mg Documented by: Fenofibrate (Fenofibrate) 48 mg PO HS [facility] Stop: 05/13/20 21:09 Last Admin: 04/13/20 22:28 Dose: 48 mg Documented by: Finasteride (Proscar) 5 mg PO QDD [facility] Stop: 05/14/20 16:29 Fluticasone/Vilanterol (Breo Ellipta 100/25 Mcg Inh) 1 puffs INH DAILY [facility] Stop: 05/14/20 08:59 Last Admin: 04/14/20 09:01 Dose: 1 puffs Documented by: Gabapentin (Neurontin) 100 mg PO BID [facility] Stop: 05/13/20 21:09 Last Admin: 04/14/20 08:57 Dose: 100 mg Documented by: Gabapentin (Neurontin) 300 mg PO HS [facility] Stop: 05/14/20 20:59 Glucagon (Glucagen) 1 mg SQ UD PRN; Protocol PRN Reason: Hypoglycemia Protocol Stop: 05/13/20 21:09 Glucose (Dex4 Glucose) 4 - 8 tabs PO UD PRN; Protocol PRN Reason: Hypoglycemia Protocol Stop: 05/13/20 21:09 Glucose (Glucose 40%) 15 - 30 gm PO UD PRN; Protocol PRN Reason: Hypoglycemia Protocol Stop: 05/13/20 21:09 Cefepime HCl 2,000 mg/ Syringe 20 mls @ 5 mls/min IV Q8H [facility]; Protocol Stop: 04/21/20 01:59 Last Admin: 04/14/20 10:48 Dose: 5 mls/min Documented by: Vancomycin HCl 1,500 mg/ (Sodium Chloride) 530 mls @ 200 mls/hr IV Q18H [facility] Stop: 04/21/20 09:59 Last Admin: 07/20/20 10:48 Dose: 200 mls/hr Documented by: Insulin Aspart (Novolog Flexpen) 0 units SC ACHS [facility] Stop: 05/13/20 21:09 Last Admin: 04/14/20 10:50 Dose: Not Given Documented by: Insulin Glargine (Lantus Solostar Pen) 10 units SC BID [facility] Stop: 05/13/20 21:09 Last Admin: 04/14/20 10:51 Dose: 10 units Documented by: Metoprolol Succinate (Toprol Xl) 12.5 mg PO BID [facility] Stop: 05/13/20 21:09 Last Admin: 04/14/20 09:00 Dose: 12.5 mg Documented by: Miscellaneous (Carbohydrates For Hypoglycemia) 15 - 30 gm PO UD PRN PRN Reason: Hypoglycemia Protocol Stop: 05/13/20 21:09 Miscellaneous (Remove Nicoderm Patch) 1 ea N/A DAILY@0859 [facility] Stop: 05/14/20 08:58 Last Admin: 04/14/20 09:01 Dose: Not Given Documented by: Miscellaneous Information (Consult) 1 ea N/A UD PRN PRN Reason: Consult Stop: 05/13/20 16:55 Miscellaneous Information (Cefepime Consult Active) 1 ea N/A UD PRN PRN Reason: Consult Stop: 05/13/20 21:40 Nicotine (Nicoderm Cq) 21 mg TD QAM [facility] Stop: 05/14/20 08:59 Last Admin: 04/14/20 09:00 Dose: 21 mg Documented by: Non-Formulary Medication (Fentanyl) 37.5 mcg TD USEASDIRECTD [facility] Stop: 05/14/20 12:29 Oxycodone HCl (Roxicodone Immediate Rel) 15 mg PO Q6H PRN PRN Reason: Pain Stop: 04/28/20 12:29 Pantoprazole Sodium (Protonix) 40 mg PO QAM [facility] Stop: 05/14/20 08:59 Last Admin: 04/14/20 08:57 Dose: 40 mg Documented by: Polyethylene Glycol (Miralax Powder Packet) 17 gm PO DAILY PRN PRN Reason: Constipation Stop: 05/13/20 21:09 Pravastatin Sodium (Pravachol) 20 mg PO HS [facility] Stop: 05/13/20 21:09 Last Admin: 04/13/20 22:32 Dose: 20 mg Documented by: Torsemide (Demadex) 20 mg PO MoWeFr@0900 [facility] Stop: 05/14/20 08:59 Last Admin: 04/14/20 08:59 Dose: 20 mg Documented by: Vitamin D (Vitamin D3) 2,000 units PO QPM [facility] Stop: 05/13/20 20:59 Last Admin: 04/13/20 22:29 Dose: 2,000 units Documented by:
[2020-04-14] MEDS ORDERED: fentaNYL 12 MCG/HR TDSY TD SCH (13:00)
[2020-04-14] MEDS ORDERED: fentaNYL 25 MCG/HR TDSY TD SCH (13:00)
--- NOTE | 2020-04-14 14:58 | Electrocardiogram Report ---
Test Reason : Blood Pressure : / mmHG Vent. Rate : 093 BPM Atrial Rate : 093 BPM P-R Int : 000 ms QRS Dur : 100 ms QT Int : 338 ms P-R-T Axes : 000 -58 093 degrees QTc Int : 420 ms Atrial fibrillation with premature ventricular or aberrantly conducted complexes Left anterior fascicular block Anterolateral infarct (cited on or before 06-JAN-2019) Abnormal ECG When compared with ECG of 29-OCT-2019 20:22, Atrial fibrillation has replaced Atrial flutter Nonspecific T wave abnormality no longer evident in Inferior leads Confirmed by Woo Bernard ([id number]) on 04/14/2020 2:58:07 PM Referred By: REFERRED SELF Confirmed By:Woo Bernard
[2020-04-14] MEDS ORDERED: DIGOXIN 0.125 MG TAB PO SCH (16:00)
[2020-04-14] MEDS ORDERED: FINASTERIDE 5 MG TAB PO SCH (16:30)
[2020-04-14] MEDS: CHECK FENTANYL PATCH PLACEMENT SCH ×2 (17:22)
[2020-04-14] MEDS: PRAVASTATIN SOD 20 MG TAB PO SCH (20:56)
[2020-04-14] MEDS: CHOLECALCIFEROL 1,000 UNITS 25 MCG TAB PO SCH (20:57)
[2020-04-14] MEDS: FENOFIBRATE NANOCRYSTALLIZED 48 MG TABLET PO SCH (20:57)
[2020-04-14] MEDS: BACLOFEN 10 MG TAB PO SCH (20:57)
[2020-04-14] MEDS ORDERED: GABAPENTIN 300 MG CAP PO SCH (21:00)
[2020-04-15] MEDS: CHECK FENTANYL PATCH PLACEMENT SCH ×4 (01:11→08:56)
[2020-04-15] MEDS: CEFEPIME 2,000 MG in SYRINGE 7.5 ML IV SCH ×2 (01:11→09:08)
[2020-04-15] MEDS: OXYCODONE HCL IR 5 MG TAB (IMMEDIATE RELEASE) PO PRN ×2 (05:17→11:20)
[2020-04-15 07:06] VITALS: BP 105/58; PULSE 104; TEMP 98.2; O2SAT 92
[2020-04-15] MEDS: NICOTINE 21 MG/24 HR TDSY TD SCH (08:57)
[2020-04-15] MEDS: DOXYCYCLINE HYCLATE 100 MG CAP PO SCH (08:57)
[2020-04-15] MEDS: PANTOprazole 40 MG TAB PO SCH (08:57)
[2020-04-15] MEDS: APIXABAN 5 MG TABLET PO SCH (08:57)
[2020-04-15] MEDS: GABAPENTIN 100 MG CAP PO SCH ×2 (08:58→12:56)
[2020-04-15] MEDS: METOPROLOL SUCC 25MG EXT REL TAB PO SCH (08:59)
[2020-04-15] MEDS: FLUTICASONE/VILANTEROL 100/25MCG 14 PUFFS/INHALER INH SCH (08:59)
[2020-04-15] MEDS: ENALAPRIL MALEATE 10 MG TAB PO SCH (09:00)
[2020-04-15] MEDS: INSULIN GLARGINE SOLOSTAR 100 UNITS/ML 3 ML PEN SC SCH (09:04)
[2020-04-15] MEDS: INSULIN ASPART 100 UNITS/ML 3 ML PEN SC SCH ×2 (09:05→12:54)
[2020-04-15] MEDS: DICLOFENAC SOD 1% GEL 100 GM TUBE EXT SCH (09:08)
[2020-04-15] MEDS ORDERED: INSULIN GLARGINE SOLOSTAR 100 UNITS/ML 3 ML PEN SC ONE (11:00)
--- NOTE | 2020-04-15 13:01 | Discharge Summary ---
Date of Service April 15, 2020 Admission HPI Per Admitting Provider Patient is a 75 yo male with a complicated PMHx who presented to the ED for confusion. The history is taken primarily from the record and the patient's daughter, Shantell because of AMS. The patient's daughter found his asleep on his toilet this afternoon. When she tried to arouse him, the patient was very disoriented and didn't know where he was or what day it was. He was very wobbly and weak. He tried to get up from the toilet and fell back down onto the seat. The daughter says that the confusion and weakness is very unlike him. He does have chronic lower extremity wounds. He is seen by the wound clinic on a regular basis. He was recently on a course of Cipro and Clindamycin x 2 weeks for his LE wounds. He finished this about 1 week ago. His daughter states that his legs "always look bad", but look better than they have in a while. His left posterior leg has been swollen and more tender than usual though. He does also have a right great toe wound, small sacral decubitus wound, and overall has blistering on the anterior legs often. He is on high doses of narcotic pain medications at home because of chronic pain. He has neuropathic pain, osteoarthritis pain, and possibly claudication pain per his daughter. He is anticipated to have studies done for PAD in the near future. He has been using Non-THC CBD oil at home from time to time as well to try to help with his pain. His daughter also notes that he is supposed to take 1.5 tablets of 10 mg Oxycodone Q6h PRN pain throughout the day, but he often takes 2 tablets at a time and takes this 3-4 times per day regularly. He does have Narcan at home, an d she thought about using it this morning but did not. He has chronic right shoulder pain. He recently has been smoking more at home, and his daughter has noted 3-4 days of increased coughing at home. He has been slightly more SOB at home as well because of the cough. He has been using his albuterol inhaler more over the past couple of days. He was previously offered a spot in an assisted living facility but refused to go. Since presentation to the ED, the patient was noted to have a normal WBC count, within normal Lactic acid, and negative procalcitonin. Troponin was detectable but not elevated. BNP was normal. Urine was unremarkable. CXR showed increased marking in the RLL which could favor pneumonia. SaO2 has been ranging from 85-94% on room air per ED doc. Principal Diagnosis Community-acquired pneumonia Tobacco abuse Discharge Exam CONSTITUTIONAL: WNWD, generally well-appearing EYES: normal conjunctivae, no scleral icterus ENT: external ear and nose normal, oropharynx clear,MMM RESPIRATORY: clear except for slight wheezing at the right and left base, crackles have resolved since yesterday. No increased respiratory effort and no conversational dyspnea on room air. Moving air well on auscultation. CARDIOVASCULAR: regular rate and rhythm, S1 and 2 heard without murmurs, gallops or rubs, no JVD, no peripheral edema GASTROINTESTINAL: normal bowel sounds, soft, nontender, nondistended. MUSCULOSKELETAL: strength 5/5 throughout, head is normocephalic and atraumatic, significant bilateral hand deformities 2/2 known comorbidities. SKIN: warm and dry, wound on feet are covered with no surrounding areas of redness. NEUROLOGIC: No facial palsy, no dysarthria. CN 2-12 grossly intact, normal cognition, normal speech, no tremor. No gross focal deficit. PSYCHIATRIC: alert cooperative and oriented to person, place and time. Discharge Data Allergies Allergy/AdvReac Type Severity Reaction Status Date / Time Penicillins Allergy Intermediate RASH Verified 04/13/20 18:09 sulfamethoxazole AdvReac Mild arf, Verified 04/13/20 18:09 [From Bactrim] hyperkalemia trimethoprim [From Bactrim] AdvReac Mild arf, Verified 04/13/20 18:09 hyperkalemia Consultations 04/13/20 17:38 ED Decision to Admit Stat 04/13/20 21:10 Consult Case Management - Discharge Planning Routine Ordered Studies 04/13/20 17:55 CT head/brain wo con Stat 04/14/20 21:10 US venous doppler LE BI Routine Hospital Course (1) Acute metabolic encephalopathy: (2) Pneumonia: (3) Mtewqro-Znrev-Utofc disease: (4) Tobacco use: (5) Opioid dependence: 75-year-old man presented to the hospital via EMS after daughter found him asleep on the toilet with some concerns for confusion. The patient is on a significant amount of chronic narcotics and has multiple medical conditions. Furthermore he had been coughing with what was described a "barky cough" for the past week and daughter reported a fever and generalized weakness. The patient thought that was a result of his continued smoking, however, work-up revealed evidence of a right-sided pneumonia. He was initially placed on broad-spectrum antibiotics and improved clinically. Initial temp was 37.9 C which improved on hospital day 2. Blood cultures were drawn and negative. He did have evidence of an elevated troponin likely secondary to demand ischemia in setting of acute illness. An echocardiogram was performed revealing normal LV systolic function with an ejection fraction 60 to 65%. No segmental left ventricular wall motion abnormalities were noted with grade 2 diastolic dysfunction seen. Additionally, aortic valve sclerosis was moderate without significant aortic valvular stenosis. By hospital day 2 he felt back to baseline and regain some strength. He had been feeling generally weak and transferred independently at baseline. He was seen by Occupational Therapy which cleared him to return home with his current home health in place. His daughters are very involved in his care and were updated throughout the hospitalization. He did have some initial hypoxia which also resolved with treatment and was resolved prior to discharge. Although his hemoglobin A1c is greater than 8 reflecting poor control, his daughter reports this is actually improved. Smoking cessation is strongly encouraged and the patient requested nicotine patches as an alternative to Chantix therapy which he had failed in the past. Chronic opiate therapy was decreased on arrival secondary to a concern of confusion and possible metabolic encephalopathy. This was increased back to his baseline oxycodone 15 mg every 6 hours and fentanyl patch 37.5mcg q72hrs on hospital day 2. Pain was still present at time of discharge but was manageable, and the pain was reported to be at baseline for him. He also has additional wounds on his feet which are being followed by the wound care clinic. These do not appear superficially infected. Additionally, a wound culture was performed which was negative for organisms. The likely etiology of his weakness and recent respiratory symptoms was thought to be the community-acquired pneumonia. He will continue a 7-day course of antibiotics and close primary care follow-up is recommended including a chest x- ray in 4 weeks to ensure complete resolution of infiltrate. Total Time Total Time Spent Total Time Spent (In Minutes): 60 Total Time Includes: Examination of the Patient, Discharge Planning, Medication Reconciliation and Communication With Other Providers Discharge Plan Discharge Items Patient Disposition: Home - Home Health Services Reason For Visit: FEVER Discharge Diagnosis: Community-acquired pneumonia Tobacco abuse Activity: Resume your previous activity Non-emergency contact: Primary Care Provider Call non-emergency contact if: you have any medication questions, your symptoms worsen, your pain is not controlled, your pain is worsening, your pain is unusual for you and you have a fever Follow-up/Referrals: Mohan Perry MD [Primary Care Provider] - Diet: Carb Consistent or DM2 and Heart Healthy Addtl Attending Provider Instructions: Please take all medications as instructed on discharge list below. You were diagnosed with pneumonia. A repeat chest xray is recommended in 4 weeks to ensure complete resolution of pneumonia. This may be ordered by your primary care physician (PCP) at follow-up. It is recommended that you follow-up with your PCP within 1-2 weeks of hospital discharge to ensure you are still doing well after going home. It is strongly encouraged that you quit smoking. You are being prescribed nicotine patches to help you quit. Another resource is the [place] quit line, 1-625-UOFQ-NOW. Smoking increases your risk of developing pneumonia. It was a pleasure taking care of you! Please call if you have any questions or problems. You can reach a [facility] hospitalist on duty at [facility] 24 hours a day by calling [phone]. Take care of yourself. Stefani Andrew, [facility] Hospitalist Pending Studies at Discharge: Yes Studies:: blood cultures pending at time of discharge Stand-Alone Forms: My [facility], Smoking Cessation Medications and DC Order Prescriptions: New doxycycline hyclate 100 mg Capsule 100 mg PO BID Qty: 14 RF: 0 nicotine 21 mg/24 hr patch 24 hour 1 patch TD DAILY Qty: 14 RF: 1 cefdinir 300 mg capsule 300 mg PO BID Qty: 14 RF: 0 No Action celecoxib [Celebrex] 200 mg capsule 200 mg PO DAILY PRN (Reason: Pain) RF: 0 ascorbic acid (vitamin C) [Vitamin C] 1,000 mg Tablet 1,000 mg PO QAM RF: 0 omeprazole 40 mg Capsule,Delayed Release(Dr/Ec) 40 mg PO QAM RF: 0 metformin 1,000 mg Tablet 1,000 mg PO BID RF: 0 glimepiride 4 mg Tablet 4 mg PO QAM RF: 0 digoxin [Digox] 125 mcg Tablet 125 mcg PO DAILY@1600 RF: 0 metoprolol succinate 25 mg Tablet Extended Release 24 Hr 12.5 mg PO BID RF: 0 albuterol sulfate [Ventolin HFA] 90 mcg/actuation Hfa Aerosol Inhaler 2 puff INHALATION Q6H PRN (Reason: Shortness Of Breath) RF: 0 finasteride 5 mg Tablet 5 mg PO QDD RF: 0 Eliquis 5 mg Tablet 5 mg PO BID RF: 0 Jardiance 10 mg Tablet 10 mg PO QAM RF: 0 pravastatin [Pravachol] 20 mg tablet 20 mg PO HS RF: 0 fenofibrate nanocrystallized [Tricor] 48 mg tablet 48 mg PO HS RF: 0 ramipril 5 mg Capsule 5 mg PO BID RF: 0 B-complex with vitamin C [Super B Complex-Vitamin C] Tablet 1 tab PO QPM RF: 0 omega [id number]-fish oil [Fish Oil] 1,000 mg (120 mg-180 mg) Capsule 1 cap PO QDD RF: 0 fluticasone propion-salmeterol [Advair Diskus] 250-50 mcg/dose Blister With Device 1 inh INHALATION BID RF: 0 polyethylene glycol 3350 [Miralax] 17 gram Powder In Packet 17 g PO QAM RF: 0 oxycodone 10 mg tablet 15 mg PO Q6H PRN (Reason: Pain) RF: 0 prednisolone acetate 1 % Drops,Suspension 1 drp OPHTHALMIC (EYE) QID PRN (Reason: REDNESS/IRRITATION) RF: 0 diclofenac sodium 1 % Gel 2 g TOPICAL BID RF: 0 multivitamin Tablet 1 tab PO QAM RF: 0 acetaminophen [Tylenol Extra Strength] 500 mg Tablet 1,000 mg PO Q6H PRN (Reason: Pain) RF: 0 lidocaine 5 % adhesive patch,medicated 1 patch topical UD RF: 0 torsemide 20 mg tablet 20 mg PO MOWEFR RF: 0 nystatin 100,000 unit/gram Ointment 1 applic TOPICAL BID RF: 0 baclofen 10 mg tablet 10 mg PO HS RF: 0 gabapentin [Neurontin] 300 mg capsule 300 mg PO HS RF: 0 gabapentin [Neurontin] 100 mg capsule 100 mg PO BID RF: 0 Calmoseptine 0.44-20.6 % Ointment 1 applic TOPICAL DAILY PRN (Reason: Rash) RF: 0 magnesium oxide 400 mg (241.3 mg magnesium) tablet 400 mg PO HS RF: 0 cholecalciferol (vitamin D3) 2,000 unit tablet 2,000 units PO QPM RF: 0 fentanyl 37.5 mcg/hour patch 72 hour 37.5 mcg transdermal USEASDIRECTD RF: 0 Discharge Orders: Discharge Order (Routine); Ordered 04/15/20 Ordered By: Stefani Malagon/Other Patient Handouts: Managing Type 2 Diabetes Admission Data Admit Date/Time: 04/13/20 18:22 Attending Provider: Stefani Andrew Admit Provider: Asa Fuentes Primary Care Provider: Mohan Perry Other Providers: Asa Fuentes Other Interventions: Discharge Summary Assessment (RN) Last Done: 04/15/20 10:48
[2020-04-15] MEDS ORDERED: OXYCODONE HCL IR 5 MG TAB (IMMEDIATE RELEASE) PO STA (14:24)
[2020-04-15] MEDS ORDERED: INSULIN GLARGINE SOLOSTAR 100 UNITS/ML 3 ML PEN SC SCH (21:00)
== END 2020-04-15 16:09 | disposition home health service (06) | DRG 193 ==
LOC: ED 16:31 → SUATTDRO 18:22 → 2N 18:22

== ENCOUNTER 2020-04-15 22:53 | Inpatient (IN) ==
[2020-04-15] MEDS ORDERED: SODIUM CHLORIDE 0.9% 500 ML IV ONE (23:27)
--- NOTE | 2020-04-15 23:35 | Emergency Department Note ---
History of Present Illness General Chief complaint: Hypotension Stated complaint: BP LOW-HIGH HEART [id number] RELEASED TODAY Time Seen by Provider: 04/15/20 23:08 Source: patient and family Mode of arrival: ambulatory Limitations: no limitations History of Present Illness Provider complaint: Hypotension, tachycardia, recent pneumonia Onset (ago): hour(s) 2 Severity: moderate Maximum Pain Intensity: 7 Associated symptoms: + cough and + shortness of breath; no chest pain and no nausea/vomiting Treatments prior to arrival: none This is a 75-year-old male who was recently admitted to the hospital following an episode of confusion was found to have pneumonia. Patient has a complicated medical history, and does continue to smoke. He does not wear home oxygen. Patient states he was discharged earlier this afternoon went home. Daughter who is on the phone at the time of my interview with the patient states that her sister was helping to care for him at home and he seemed very tired this afternoon. This evening she checked his vital signs and they noticed that his blood pressure was much lower than usual and his oxygen level was also low. Patient has paperwork with him where his family wrote down these numbers and his oxygen went down to 88%, blood pressure went down to a systolic of 76, and heart rate went up into the 1 teens. Patient states he did eat when he got home. The other daughter who is on the phone does not know how much fluid he had. He does normally take medication for high blood pressure and states his usual systolic blood pressure is in the 130s. Family was concerned given recent pneumonia and concern for worsening symptoms, and brought him back to the emergency room. Patient states right now he does not feel any trouble breathing, any chest pain any belly pain, no dizziness. Patient has chronic pain due to his Ofnhxjm-Timwp-Rmvsm deformities. He states it was thought during his recent admission that some of his confusion could have been to a recent increased dose in his fentanyl patch so this was decreased while he was here. Patient is ant icoagulated due to a history of paroxysmal atrial fibrillation. Pt seen during a time of high acuity and national emergency pandemic while wearing PPE. Home Medications Home Medications Medication Instructions Recorded Confirmed Type Eliquis 5 mg PO BID 01/06/19 04/16/20 History Jardiance 10 mg PO QAM 01/06/19 04/16/20 History albuterol sulfate [Ventolin HFA] 2 puff INHALATION Q6H PRN 01/06/19 04/16/20 History ascorbic acid (vitamin C) [Vitamin 1,000 mg PO QAM 01/06/19 04/16/20 History C] digoxin [Digox] 125 mcg PO DAILY@1600 01/06/19 04/16/20 History finasteride 5 mg PO QDD 01/06/19 04/16/20 History glimepiride 4 mg PO QAM 01/06/19 04/16/20 History metformin 1,000 mg PO BID 01/06/19 04/16/20 History metoprolol succinate 12.5 mg PO BID 01/06/19 04/16/20 History omeprazole 40 mg PO QAM 01/06/19 04/16/20 History B-complex with vitamin C [Super B 1 tab PO QPM 07/19/19 04/16/20 History Complex-Vitamin C] fluticasone propion-salmeterol 1 inh INHALATION BID 07/19/19 04/16/20 History [Advair Diskus] omega 4-ppy-kqj-fish oil [Fish Oil] 1 cap PO QDD 07/19/19 04/16/20 History ramipril 5 mg PO BID 07/19/19 04/16/20 History diclofenac sodium 2 g TOPICAL BID 09/27/19 04/16/20 History oxycodone 15 mg PO Q6H PRN 09/27/19 04/16/20 History polyethylene glycol 3350 [Miralax] 17 g PO QAM 09/27/19 04/16/20 History multivitamin 1 tab PO QAM 10/10/19 04/16/20 History fenofibrate nanocrystallized 48 mg PO HS 10/29/19 04/16/20 History [Tricor] pravastatin [Pravachol] 20 mg PO HS 10/29/19 04/16/20 History lidocaine 1 patch TOPICAL UD 11/05/19 04/16/20 History torsemide 20 mg PO MOWEFR 11/05/19 04/16/20 History celecoxib 200 mg capsule 200 mg PO DAILY PRN 11/15/19 04/16/20 History Calmoseptine 1 applic TOPICAL DAILY PRN 04/13/20 04/16/20 History baclofen 10 mg PO HS 04/13/20 04/16/20 History cholecalciferol (vitamin D3) 2,000 units PO QPM 04/13/20 04/16/20 History fentanyl 37.5 mcg TRANSDERMAL USEASDIRECTD 04/13/20 04/16/20 History gabapentin [Neurontin] 100 mg PO BID 04/13/20 04/16/20 History gabapentin [Neurontin] 300 mg PO HS 04/13/20 04/16/20 History magnesium oxide 400 mg PO HS 04/13/20 04/16/20 History cefdinir 300 mg PO BID #14 cap 04/15/20 04/16/20 Rx doxycycline hyclate 100 mg PO BID #14 cap 04/15/20 04/16/20 Rx nicotine 1 patch TD DAILY #14 ea 04/15/20 04/16/20 Rx Allergies Allergy/AdvReac Type Severity Reaction Status Date / Time Penicillins Allergy Intermediate RASH Verified 04/16/20 00:35 sulfamethoxazole AdvReac Mild arf, Verified 04/16/20 00:35 [From Bactrim] hyperkalemia trimethoprim [From Bactrim] AdvReac Mild arf, Verified 04/16/20 00:35 hyperkalemia Past Med/Surg History Medical History 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) Acquired deviated nasal septum Acquired hallux valgus of right foot (Chronic) Atrial fibrillation Atrial flutter (Inactive) Choledocholithiasis (Resolved) Chronic sinusitis CKD (chronic kidney disease), stage III CMT (Ijpcsbj-Oopvl-Rdjbv disease) (Chronic) COPD (chronic obstructive pulmonary disease) (Chronic) Degenerative disc disease 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) Diabetic foot ulcer associated with type 2 diabetes mellitus Diabetic peripheral neuropathy associated with type 2 diabetes mellitus (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) Gastroesophageal reflux disease (Acute) Hallux valgus (acquired), left foot (Chronic) History of infection with vancomycin resistant Enterococcus (VRE) Hyperlipidemia (Chronic) Hypertension Hypertensive heart disease (Acute) Hypertrophy of nasal turbinates Left foot drop (Chronic) Perirectal abscess Pneumonia (Resolved) Right foot drop (Chronic) Spinal stenosis, lumbar region with neurogenic claudication (Chronic) Surgical History H/O reduction of closed fracture nasal bone fracture Hx of tonsillectomy (Inactive) S/P cataract extraction (Resolved) S/P cervical spinal fusion (Inactive) S/P foot surgery, right Status post cholecystectomy (Inactive) Status post left foot surgery Family History Father Diabetes Mother Hypertension Other COPD (chronic obstructive pulmonary disease) Coronary heart disease Hearing loss Heart disease No family history of adverse response to anesthesia No family history of bleeding disorder Social History Smoking Status: Current some day smoker Tobacco Type: Cigarettes packs per day: 0.5; Cigarettes Per Day: 1 every two weeks; Second Hand Exposure: No; Do You Dip or Chew Tobacco: No; Hx Alcohol Use: No Hx Substance Use: No Preferred Language: Tajik Communication Ability: Effective Visual Impairment: Limited Hearing Ability: Hard of Hearing Tick Eradicator Required: No Beliefs That Will Affect Care: None marital status: Current Living Situation: Alone Current Living Situation Comment: "55 and older community" current occupational status: retired How many Children do You have: 2 Other Information That Helps Us Care for You: No Feels Safe at Home: Yes Safety Concerns: Feels Safe At This Time Review of Systems See HPI for pertinent positives & negatives. and A total of 10 systems reviewed and were otherwise negative Physical Exam Vital Signs Vital Signs - 24 hr 04/15/20 22:57 04/15/20 23:14 04/16/20 00:17 Temperature 36.8 C Temperature Source Oral Pulse Rate 104 H 98 H 87 Pulse Rate [Right Radial] Pulse Rate from SpO2 Sensor 99 H 91 H Respiratory Rate 22 17 23 Respiratory Effort / Characteristics Non-Labored Spontaneous Respiratory Depth Normal Blood Pressure 98/65 L 95/43 L 96/49 L Blood Pressure Mean 76 59 57 Blood Pressure Position Sitting Pulse Oximetry 92 92 91 Oxygen Delivery Method Room Air Room Air Room Air Sepsis Recent Fever Within 48 Hours No Sepsis New/Unexplained Change in Mental Status No Sepsis Action Taken by Nursing No Action Required 04/16/20 00:30 04/16/20 01:01 04/16/20 01:21 Temperature Temperature Source Pulse Rate 85 92 H Pulse Rate [Right Radial] 86 Pulse Rate from SpO2 Sensor 79 99 H Respiratory Rate 20 23 20 Respiratory Effort / Characteristics Non-Labored Spontaneous Respiratory Depth Blood Pressure 104/58 L 109/50 L Blood Pressure Mean 63 80 Blood Pressure Position Pulse Oximetry 93 93 93 Oxygen Delivery Method Room Air Room Air Room Air Sepsis Recent Fever Within 48 Hours Sepsis New/Unexplained Change in Mental Status Sepsis Action Taken by Nursing 04/16/20 01:30 Temperature Temperature Source Pulse Rate 92 H Pulse Rate [Right Radial] Pulse Rate from SpO2 Sensor 95 H Respiratory Rate 24 Respiratory Effort / Characteristics Respiratory Depth Blood Pressure 100/52 L Blood Pressure Mean 66 Blood Pressure Position Pulse Oximetry 93 Oxygen Delivery Method Room Air Sepsis Recent Fever Within 48 Hours Sepsis New/Unexplained Change in Mental Status Sepsis Action Taken by Nursing GENERAL: alert, well appearing, well nourished, no distress, non-toxic EYE EXAM: normal conjunctiva, PERRL and EOM's grossly intact OROPHARYNX: no exudate, no erythema, lips, buccal mucosa, and tongue normal and mucous membranes are moist NECK: supple, no nuchal rigidity, no adenopathy, non-tender LUNGS: Clear to auscultation. Normal chest wall mechanics, no w/r/r HEART: no murmurs, S1 normal and S2 normal ABDOMEN: abdomen soft, non-tender, normo-active bowel sounds, no masses, no rebound or guarding. BACK: Back is symmetrical on inspection and there is no deformity, no midline tenderness, no CVA tenderness. SKIN: no rashes and no bruising UPPER EXTREMITIES: upper extremities are grossly normal. FROM, nml pulses b/l. Chronic appearing deformities of bilateral hands. LOWER EXTREMITIES: No pitting edema. FROM, nml pulses b/l. Bilateral lower extremity edema. Mild erythema noted to pretibial regions. There is a dressing /compression sleeve over the right distal lower extremity. Chronic appearing deformity of the great toe. NEURO EXAM: Normal sensorium, cranial nerves II-XII grossly intact, normal speech, no gross weakness of arms, no gross weakness of legs. Gross sensation intact. Course Course 0115: Patient updated on results. Daughter at bedside discussed need for additional inpatient management. 0125: Case discussed with Dr. Voss. Administered Medications Potassium Chloride/Sodium Chloride (Normal Saline W/20 Meq Kcl) 20 meq in 1,000 mls @ 75 mls/hr IV .[id number] BETHANY Stop: 04/17/20 03:59 Last Admin: 04/16/20 04:57 Dose: 75 mls/hr Documented by: [id number] Insulin Aspart (Novolog Flexpen) 0 units SC ACHS BETHANY Stop: 05/16/20 03:54 Last Admin: 04/16/20 05:01 Dose: 1 units Documented by: [id number] Cosigned by: [id number] Ipratropium Haines (Atrovent 0.02% 0.5mg/2.5ml) 0.5 mg INH Q4H PRN PRN Reason: Shortness Of Breath Or Wheezing Stop: 05/16/20 04:06 Last Admin: 04/16/20 06:22 Dose: 0.5 mg Documented by: [id number] Levalbuterol HCl (Xopenex 1.25mg/0.5ml Neb) 1.25 mg INH Q4H PRN PRN Reason: Shortness Of Breath Or Wheezing Stop: 05/16/20 03:54 Last Admin: 04/16/20 06:22 Dose: 1.25 mg Documented by: [id number] Discontinued Medications Albuterol (Duoneb) 3 ml NEB NOW STA Stop: 04/16/20 01:13 Last Admin: 04/16/20 01:19 Dose: 3 ml Documented by: [id number] Albuterol (Duoneb) 3 ml NEB NOW STA Stop: 04/16/20 02:07 Last Admin: 04/16/20 02:20 Dose: 3 ml Documented by: [id number] Gabapentin (Neurontin) 300 mg PO TID STA Stop: 04/16/20 01:20 Last Admin: 04/16/20 01:50 Dose: 300 mg Documented by: [id number] Sodium Chloride (Nss) 500 mls @ 999 mls/hr IV .Q31M ONE Stop: 04/15/20 23:57 Last Infusion: 04/16/20 00:55 Dose: 0 mls/hr Documented by: [id number] Admin: 04/16/20 00:14 Dose: 999 mls/hr Documented by: [id number] Sodium Chloride (Nss 1000ml) 1,000 mls @ 125 mls/hr IV .Q8H BETHANY Stop: 05/16/20 01:14 Last Admin: 04/16/20 02:28 Dose: Not Given Documented by: [id number] Magnesium Sulfate/Dextrose (Magnesium Sulfate / D5w) 1 gm in 100 mls @ 100 mls/hr IV NOW STA Stop: 04/16/20 02:06 Last Infusion: 04/16/20 03:07 Dose: 0 mls/hr Documented by: [id number] Admin: 04/16/20 02:03 Dose: 100 mls/hr Documented by: [id number] Parenteral Electrolytes (Normosol-R) 500 mls @ 999 mls/hr IV .Q31M ONE Stop: 04/16/20 01:58 Last Infusion: 04/16/20 02:33 Dose: 0 mls/hr Documented by: [id number] Admin: 04/16/20 02:02 Dose: 999 mls/hr Documented by: [id number] Ceftriaxone Sodium (Rocephin) 1,000 mg in 50 mls @ 100 mls/hr IV NOW STA Stop: 04/16/20 02:22 Last Infusion: 04/16/20 03:36 Dose: 0 mls/hr Documented by: [id number] Admin: 04/16/20 03:06 Dose: 100 mls/hr Documented by: [id number] Insulin Glargine (Lantus Solostar Pen) 5 units SC NOW STA Stop: 04/16/20 03:56 Last Admin: 04/16/20 05:02 Dose: 5 units Documented by: [id number] Cosigned by: [id number] Miscellaneous (Patient's Height And/Or Weight Needed) 1 ea N/A Q30M BETHANY Stop: 05/16/20 04:14 Last Admin: 04/16/20 05:26 Dose: 1 ea Documented by: [id number] Admin: 04/16/20 05:09 Dose: 1 ea Documented by: [id number] Admin: 04/16/20 05:07 Dose: 1 ea Documented by: [id number] Medical Decision Making Differential Diagnosis Differential Diagnosis includes but is not limited to dehydration, stroke, anemia, hypoglycemia, hyponatremia, hypernatremia, urinary tract infection, pneumonia, bronchitis, sepsis, gastroenteritis, additional abdominal pathology, metabolic abnormalities and infections. Medical Records Attestation: I reviewed the patient's medical records. Home Medications Current Medication List: was personally reviewed by me Laboratory Data Attestation: I reviewed the patient's lab results. Result diagrams: 04/15/20 23:38 04/16/20 02:44 Lab Results 07/04/15/20 04/15/20 Range/Units 23:38 23:38 23:38 WBC 12.67 H (4.8-10.8) K/uL RBC 5.33 (4.7-6.1) M/uL Hgb 12.5 L (14.0-18.0) g/dL Hct 39.6 L (42-52) % MCV 74.3 L (80-100) fL MCH 23.5 L (25-34) pg MCHC 31.6 L (32-36) g/dL RDW Std Deviation 49.1 H (36.4-46.3) fL RDW Coeff of Naomi 18.0 H (11.5-14.5) % Plt Count 238 (130-400) K/uL MPV 11.1 H (7.4-10.4) fL Immature Gran % (Auto) 0.4 % Neut % (Auto) 72.8 % Lymph % (Auto) 16.2 % [place] % (Auto) 8.9 % Eos % (Auto) 1.3 % Baso % (Auto) 0.4 % Neut # (Auto) 9.23 H (1.4-6.5) K/uL Lymph # (Auto) 2.05 (1.2-3.4) K/uL [place] # (Auto) 1.13 H (0.11-0.59) K/uL Eos # (Auto) 0.16 (0-0.5) K/uL Baso # (Auto) 0.05 (0-0.2) K/uL Immature Gran # (Auto) 0.05 H (0.00-0.02) K/uL Sodium 131 L (136-145) mmol/L Potassium 4.2 (3.5-5.1) mmol/L Chloride 95 L (98-107) mmol/L Carbon Dioxide 26 (21-32) mmol/L Anion Gap 10.0 (3-11) BUN 63 H D (7-18) mg/dl Creatinine 2.48 H D (0.6-1.4) mg/dl Est Cr Clr Drug Dosing Not Reportable Est GFR ( Amer) 28.7 Est GFR (Non-Af Amer) 24.8 BUN/Creatinine Ratio 25.6 H (10-20) Glucose 212 H (70-99) mg/dl POC Lactic Acid Brayan (0.90-1.70) mmol/L Calcium 8.9 (8.5-10.1) mg/dl Magnesium 1.6 L (1.8-2.4) mg/dl Total Bilirubin 0.5 (0.2-1) mg/dl AST 30 (15-37) U/L ALT 33 (12-78) U/L Alkaline Phosphatase 89 (45-117) U/L Troponin I 0.033 (0-0.045) ng/ml Total Protein 7.5 (6.4-8.2) gm/dl Albumin 2.7 L (3.4-5.0) gm/dl Globulin 4.8 H (2.5-4.0) gm/dl Albumin/Globulin Ratio 0.6 L (0.9-2) Procalcitonin 0.21 (0-0.5) ng/ml 04/16/20 Range/Units 00:09 WBC (4.8-10.8) K/uL RBC (4.7-6.1) M/uL Hgb (14.0-18.0) g/dL Hct (42-52) % MCV (80-100) fL MCH (25-34) pg MCHC (32-36) g/dL RDW Std Deviation (36.4-46.3) fL RDW Coeff of Naomi (11.5-14.5) % Plt Count (130-400) K/uL MPV (7.4-10.4) fL Immature Gran % (Auto) % Neut % (Auto) % Lymph % (Auto) % [place] % (Auto) % Eos % (Auto) % Baso % (Auto) % Neut # (Auto) (1.4-6.5) K/uL Lymph # (Auto) (1.2-3.4) K/uL [place] # (Auto) (0.11-0.59) K/uL Eos # (Auto) (0-0.5) K/uL Baso # (Auto) (0-0.2) K/uL Immature Gran # (Auto) (0.00-0.02) K/uL Sodium (136-145) mmol/L Potassium (3.5-5.1) mmol/L Chloride (98-107) mmol/L Carbon Dioxide (21-32) mmol/L Anion Gap (3-11) BUN (7-18) mg/dl Creatinine (0.6-1.4) mg/dl Est Cr Clr Drug Dosing Est GFR ( Amer) Est GFR (Non-Af Amer) BUN/Creatinine Ratio (10-20) Glucose (70-99) mg/dl POC Lactic Acid Brayan 1.93 H (0.90-1.70) mmol/L Calcium (8.5-10.1) mg/dl Magnesium (1.8-2.4) mg/dl Total Bilirubin (0.2-1) mg/dl AST (15-37) U/L ALT (12-78) U/L Alkaline Phosphatase (45-117) U/L Troponin I (0-0.045) ng/ml Total Protein (6.4-8.2) gm/dl Albumin (3.4-5.0) gm/dl Globulin (2.5-4.0) gm/dl Albumin/Globulin Ratio (0.9-2) Procalcitonin (0-0.5) ng/ml Blood Pressure Blood Pressure Findings: Low blood pressure MDM Narrative This is a 75-year-old male who was just discharged yesterday after being admitted with pneumonia. Patient brought back by family after hypotension, tachycardia, mild hypoxia noted at home. Patient states he has been feeling fine just tired since being discharged. Patient states he did eat once he got home. Family states they checked his vital signs as a precaution and found the abnormalities. Given the recent infection and the patient's significant past medical history, they brought him back to the emergency room. Patient denied any symptoms at this time. Repeat blood pressure was improved however still low. Patient typically has high blood pressure and is medicated for such. Patient denied any shortness of breath, room air pulse ox was 92%. Patient does have a history of COPD and does continue to smoke. Patient given IV fluid bolus and blood pressure improved. Labs drawn and sent as a precaution given recent known infection. No acute changes noted on chest x-ray. Patient's H&H stable. Unfortunately patient found to have acute kidney injury. UA ordered and was pending at the time of my discussion with the hospitalist. I did discuss all results with the patient and his daughter at bedside and they were in agreement with plan. An order was placed for continuous cardiac monitoring. The monitor shows a rate of 76 with _normal sinus_ rhythm. Impression & Plan TIO (acute kidney injury), Acute hypotension, Tachycardia, Hyperglycemia Discharge Plan Visit Data *Final* Discharge Date/Time: 04/16/20 03:09 Chief Complaint: Hypotension Stated Complaint: BP LOW-HIGH HEART [id number] RELEASED TODAY ED Provider: Nella Seo Discharge Problem: TIO (acute kidney injury), Acute hypotension, Tachycardia, Hyperglycemia Patient Disposition: Admitted As Inpatient Condition: Fair Discharge Instructions Interventions: ED Discharge Assessment Last Done: 04/16/20 03:09
[2020-04-15 23:48] LABS: Basophils # (auto) 0.05 K/uL (0-0.2); Basophils % (auto) 0.4 %; Eosinophils # (auto) 0.16 K/uL (0-0.5); Eosinophils % (auto) 1.3 %; Hematocrit (blood only) 39.6 % (42-52); Hemoglobin 12.5 g/dL (14.0-18.0); Immature Granulocytes # (auto) 0.05 K/uL (0.00-0.02); Immature Granulocytes % (auto) 0.4 %; Lymphocytes # (auto) 2.05 K/uL (1.2-3.4); Lymphocytes % (auto) 16.2 %; Mean Corpuscular Hemoglobin 23.5 pg (25-34); Mean Corpuscular Hgb Conc 31.6 g/dL (32-36); Mean Corpuscular Volume 74.3 fL (80-100); Mean Platelet Volume 11.1 fL (7.4-10.4); Monocytes # (auto) 1.13 K/uL (0.11-0.59); Monocytes % (auto) 8.9 %; Neutrophils # (auto) 9.23 K/uL (1.4-6.5); Neutrophils % (auto) 72.8 %; Platelet Count 238 K/uL (130-400); RDW Standard Deviation 49.1 fL (36.4-46.3); Red Blood Count 5.33 M/uL (4.7-6.1); White Blood Count 12.67 K/uL (4.8-10.8)
[2020-04-16 00:14] LABS: Alanine Aminotransferase 33 U/L (12-78); Albumin Level 2.7 gm/dl (3.4-5.0); Aspartate Aminotransferase 30 U/L (15-37); BUN Creatinine Ratio 25.6 (10-20); Blood Urea Nitrogen 63 mg/dl (7-18); Calcium 8.9 mg/dl (8.5-10.1); Carbon Dioxide 26 mmol/L (21-32); Chloride 95 mmol/L (98-107); Est GFR (African American) 28.7; Est GFR (Non-African American) 24.8; Glucose 212 mg/dl (70-99); Magnesium 1.6 mg/dl (1.8-2.4); Potassium 4.2 mmol/L (3.5-5.1); Sodium 131 mmol/L (136-145)
[2020-04-16 00:19] LABS: Albumin Globulin Ratio 0.6 (0.9-2); Alkaline Phosphatase 89 U/L (45-117); Bilirubin,Total 0.5 mg/dl (0.2-1); Globulin 4.8 gm/dl (2.5-4.0); Total Protein 7.5 gm/dl (6.4-8.2); Troponin I 0.033 ng/ml (0-0.045)
[2020-04-16] MEDS ORDERED: MAGNESIUM SULFATE / D5W 1 GM/100 ML BAG IV STA (01:07)
[2020-04-16] MEDS ORDERED: ALBUT/IPRATROP 3MG/0.5MG NEB 3 ML VIAL NEB STA ×2 (01:12→02:06)
[2020-04-16] MEDS ORDERED: SODIUM CHLORIDE 0.9% 1000ML 1,000 ML IV SCH (01:15)
[2020-04-16] MEDS ORDERED: GABAPENTIN 300 MG CAP PO STA (01:19)
[2020-04-16] MEDS ORDERED: NORMOSOL-R 500 ML IV ONE (01:28)
[2020-04-16] MEDS ORDERED: cefTRIAXone SODIUM 1,000 MG/50 ML BAG IV STA (01:53)
[2020-04-16] MEDS ORDERED: IPRATROPIUM BROMIDE NEB SOLN 0.02% 2.5 ML VIAL INH SCH (02:06)
[2020-04-16] MEDS ORDERED: ACETAMINOPHEN 325 MG TAB PO PRN ×2 (03:04→03:55)
[2020-04-16 03:20] LABS: BUN Creatinine Ratio 28.5 (10-20); Blood Urea Nitrogen 65 mg/dl (7-18); Calcium 8.3 mg/dl (8.5-10.1); Carbon Dioxide 26 mmol/L (21-32); Chloride 96 mmol/L (98-107); Est GFR (Non-African American) 27.6; Glucose 193 mg/dl (70-99); Potassium 3.9 mmol/L (3.5-5.1); Sodium 133 mmol/L (136-145)
[2020-04-16] MEDS ORDERED: CARBOHYDRATES FOR HYPOGLYCEMIA PO PRN (03:55)
[2020-04-16] MEDS ORDERED: GLUCOSE 10 TABS/TUBE PO PRN (03:55)
[2020-04-16] MEDS ORDERED: HYDROmorphone INJ 0.5 MG/0.5 ML SYR IV PRN (03:55)
[2020-04-16] MEDS ORDERED: GLUCAGON FOR INJ 1 MG VIAL SQ PRN (03:55)
[2020-04-16] MEDS ORDERED: LEVALBUTEROL 1.25MG/0.5ML NEB INH PRN (03:55)
[2020-04-16] MEDS ORDERED: INSULIN GLARGINE SOLOSTAR 100 UNITS/ML 3 ML PEN SC STA (03:55)
[2020-04-16] MEDS ORDERED: PROMETHAZINE HCL 12.5 MG in SODIUM CHLORIDE 0.9% 50 ML IV PRN (03:55)
[2020-04-16] MEDS ORDERED: DEXTROSE 50% 50 ML SYRINGE IV PRN (03:55)
[2020-04-16] MEDS ORDERED: XOPENEX/ATROVENT 1.25mg/0.5MG NEB COMBO NEB PRN (03:55)
[2020-04-16] MEDS ORDERED: GLUCOSE 40% GEL 15 GM TUBE PO PRN (03:55)
[2020-04-16] MEDS ORDERED: IPRATROPIUM BROMIDE NEB SOLN 0.02% 2.5 ML VIAL INH PRN (04:07)
--- NOTE | 2020-04-16 04:18 | History & Physical Report ---
Date of Service April 16, 2020 Assessment & Plan (1) Severe sepsis: SIRS plus ARF Recent community-acquired pneumonia discharged on cefdinir and doxycycline Rx Rule out UTI AF/AFL, rate controlled on Eliquis COPD as per records, pulmonary status at baseline PVD as per records DM2 on oral meds, suboptimal control as of recent hemoglobin A1c of 8.4 this month Nsuulau-Udcvi-Ncdzr neuropathy Functional disability ongoing tobacco abuse Medical telemetry Cultures, check lactic acid Ceftriaxone, Doxycycline Baseline UA, monitor creatinine response to IVF Hold diuretics, FLORA inhibitor, home Celebrex until creatinine back to baseline Basal insulin, ISS BG goal [id number], carb count coverage PT OT eval DVT prophylaxis Eliquis dosed for renal function Full code Patient daughter requesting updates from providers. Miss Shantell Cherry, contact #[phone]. Text document was generated using [employer] voice recognition software. It may contain grammatical or spelling errors. Kindly contact undersigned for clarification of any documentation item in question. Admission and Anticipated Discharge Date Admission Date: April 16, 2020 History of Present Illness Chief Complaint: Low blood pressure as per records Primary Care Provider: Mohan Perry MD History obtained from patient, daughter, and records. Medical history significant for AFib/atrial flutter on Eliquis, hypertension, COPD as per records, PVD as per records, DM2 on oral meds, Seesddt-Xjegz-Incaa neuropathy, chronic pain on narcotics, chronic anemia (baseline hemoglobin of 12 ), ongoing tobacco abuse Recent confinement April 13-2019 for encephalopathy attributed to community- acquired pneumonia and narcotic medications. Patient discharged yesterday on cefdinir and doxycycline course. Cough somewhat loosening up at home as per patient. Appetite okay. Patient noted to look tired by family in the afternoon. SBP noted to be 70s. Patient denies chest pain, S OB. Denies aspiration. Denies headache, abdominal pain, diarrhea, dysuria. Patient brought to the ER for evaluation. Initial SBP 90s upon arrival at the ER. MEDICAL HISTORY: As above. SURGERIES: He has had tonsillectomy, neck surgery, cholecystectomy, nasal reconstruction, toe surgery, cataract surgery FAMILY HISTORY: There is a family history of heart disease, COPD, Pnrzmux-Msulp-Qtozq disease. PERSONAL AND SOCIAL HISTORY: Past smoker. Occasional EtOH intake. 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 Allergies Allergy/AdvReac Type Severity Reaction Status Date / Time Penicillins Allergy Intermediate RASH Verified 04/16/20 00:35 sulfamethoxazole AdvReac Mild arf, Verified 04/16/20 00:35 [From Bactrim] hyperkalemia trimethoprim [From Bactrim] AdvReac Mild arf, Verified 04/16/20 00:35 hyperkalemia Home Medications Home Medications Medication Instructions Recorded Confirmed Type Eliquis 5 mg PO BID 01/06/19 04/16/20 History Jardiance 10 mg PO QAM 01/06/19 04/16/20 History albuterol sulfate [Ventolin HFA] 2 puff INHALATION Q6H PRN 01/06/19 04/16/20 History ascorbic acid (vitamin C) [Vitamin 1,000 mg PO QAM 01/06/19 04/16/20 History C] digoxin [Digox] 125 mcg PO DAILY@1600 01/06/19 04/16/20 History finasteride 5 mg PO QDD 01/06/19 04/16/20 History glimepiride 4 mg PO QAM 01/06/19 04/16/20 History metformin 1,000 mg PO BID 01/06/19 04/16/20 History metoprolol succinate 12.5 mg PO BID 01/06/19 04/16/20 History omeprazole 40 mg PO QAM 01/06/19 04/16/20 History B-complex with vitamin C [Super B 1 tab PO QPM 07/19/19 04/16/20 History Complex-Vitamin C] fluticasone propion-salmeterol 1 inh INHALATION BID 07/19/19 04/16/20 History [Advair Diskus] omega 1-syz-uld-fish oil [Fish Oil] 1 cap PO QDD 07/19/19 04/16/20 History ramipril 5 mg PO BID 07/19/19 04/16/20 History diclofenac sodium 2 g TOPICAL BID 09/27/19 04/16/20 History oxycodone 15 mg PO Q6H PRN 09/27/19 04/16/20 History polyethylene glycol 3350 [Miralax] 17 g PO QAM 09/27/19 04/16/20 History multivitamin 1 tab PO QAM 10/10/19 04/16/20 History fenofibrate nanocrystallized 48 mg PO HS 10/29/19 04/16/20 History [Tricor] pravastatin [Pravachol] 20 mg PO HS 10/29/19 04/16/20 History lidocaine 1 patch TOPICAL UD 11/05/19 04/16/20 History torsemide 20 mg PO MOWEFR 11/05/19 04/16/20 History celecoxib 200 mg capsule 200 mg PO DAILY PRN 11/15/19 04/16/20 History Calmoseptine 1 applic TOPICAL DAILY PRN 04/13/20 04/16/20 History baclofen 10 mg PO HS 04/13/20 04/16/20 History cholecalciferol (vitamin D3) 2,000 units PO QPM 04/13/20 04/16/20 History fentanyl 37.5 mcg TRANSDERMAL USEASDIRECTD 04/13/20 04/16/20 History gabapentin [Neurontin] 100 mg PO BID 04/13/20 04/16/20 History gabapentin [Neurontin] 300 mg PO HS 04/13/20 04/16/20 History magnesium oxide 400 mg PO HS 04/13/20 04/16/20 History cefdinir 300 mg PO BID #14 cap 04/15/20 04/16/20 Rx doxycycline hyclate 100 mg PO BID #14 cap 04/15/20 04/16/20 Rx nicotine 1 patch TD DAILY #14 ea 04/15/20 04/16/20 Rx Past Med/Surg History Medical History 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) Acquired deviated nasal septum Acquired hallux valgus of right foot (Chronic) Atrial fibrillation Atrial flutter (Inactive) Choledocholithiasis (Resolved) Chronic sinusitis CKD (chronic kidney disease), stage III CMT (Jvhqlfi-Bldxx-Fnppq disease) (Chronic) COPD (chronic obstructive pulmonary disease) (Chronic) Degenerative disc disease 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) Diabetic foot ulcer associated with type 2 diabetes mellitus Diabetic peripheral neuropathy associated with type 2 diabetes mellitus (Chronic) Gastroesophageal reflux disease (Acute) Hallux valgus (acquired), left foot (Chronic) History of infection with vancomycin resistant Enterococcus (VRE) Hyperlipidemia (Chronic) Hypertension Hypertensive heart disease (Acute) Hypertrophy of nasal turbinates Left foot drop (Chronic) Perirectal abscess Pneumonia (Resolved) Right foot drop (Chronic) Spinal stenosis, lumbar region with neurogenic claudication (Chronic) Surgical History H/O reduction of closed fracture nasal bone fracture Hx of tonsillectomy (Inactive) S/P cataract extraction (Resolved) S/P cervical spinal fusion (Inactive) S/P foot surgery, right Status post cholecystectomy (Inactive) Status post left foot surgery Family History Father Diabetes Mother Hypertension Other COPD (chronic obstructive pulmonary disease) Coronary heart disease Hearing loss Heart disease No family history of adverse response to anesthesia No family history of bleeding disorder Social History Smoking Status: Current some day smoker Tobacco Type: Cigarettes packs per day: 0.5; Cigarettes Per Day: 1 every two weeks; Second Hand Exposure: No; Do You Dip or Chew Tobacco: No; Hx Alcohol Use: No Hx Substance Use: No Preferred Language: Mexican Communication Ability: Effective Visual Impairment: Limited Hearing Ability: Hard of Hearing Tow Motor Driver Required: No Beliefs That Will Affect Care: None marital status: Current Living Situation: Alone Current Living Situation Comment: "55 and older community" current occupational status: retired How many Children do You have: 2 Other Information That Helps Us Care for You: No Feels Safe at Home: Yes Safety Concerns: Feels Safe At This Time Review of Systems Review of Systems: As per HPI, all 10 systems reviewed, all other ROS negative Physical Exam Physical Exam: GENERAL: Slightly uncomfortable, slightly hard of hearing, obese, no respiratory distress SKIN: Pallor , warm HEENT: Pale palpebral conjunctivae, no ptosis, dry buccal mucosa NECK : Supple, short neck, no tenderness CHEST : Decreased breath sounds, expiratory wheezes, no tenderness HEART : RRR, no obvious murmurs ABDOMEN: Some distention, nontender EXTREMITIES : Bilateral LE venous stasis chronic right foot deformity, no other conspicuous deformities noted NEUROLOGIC : Coherent, slightly hard of hearing, no facial asymmetry, gait and stance not assessed Results & Data Results & Data ([facility]) Vital Signs (Past 12 Hours) Vital Signs Temp Pulse Pulse Pulse Resp BP BP 04/16/20 03:57 36.5 C 84 18 109/62 04/16/20 02:30 79 20 110/63 04/16/20 02:21 88 16 04/16/20 01:30 92 H 24 100/52 L 04/16/20 01:21 86 20 04/16/20 01:01 92 H 23 109/50 L 04/16/20 00:30 85 20 104/58 L 04/16/20 00:17 87 23 96/49 L 04/15/20 23:14 98 H 17 95/43 L 04/15/20 22:57 36.8 C 104 H 22 98/65 L Pulse Ox 04/16/20 03:57 94 04/16/20 02:30 94 04/16/20 02:21 94 04/16/20 01:30 93 04/16/20 01:21 93 04/16/20 01:01 93 04/16/20 00:30 93 04/16/20 00:17 91 04/15/20 23:14 92 04/15/20 22:57 92 Laboratory Results Laboratory Results WBC 12.67 K/uL (4.8-10.8) H 04/15/20 23:38 RBC 5.33 M/uL (4.7-6.1) 04/15/20 23:38 Hgb 12.5 g/dL (14.0-18.0) L 04/15/20 23:38 Hct 39.6 % (42-52) L 04/15/20 23:38 MCV 74.3 fL (80-100) L 04/15/20 23:38 MCH 23.5 pg (25-34) L 04/15/20 23:38 MCHC 31.6 g/dL (32-36) L 04/15/20 23:38 RDW Std Deviation 49.1 fL (36.4-46.3) H 04/15/20 23:38 RDW Coeff of Naomi 18.0 % (11.5-14.5) H 04/15/20 23:38 Plt Count 238 K/uL (130-400) 04/15/20 23:38 MPV 11.1 fL (7.4-10.4) H 04/15/20 23:38 Immature Gran % (Auto) 0.4 % 04/15/20 23:38 Neut % (Auto) 72.8 % 04/15/20 23:38 Lymph % (Auto) 16.2 % 04/15/20 23:38 [place] % (Auto) 8.9 % 04/15/20 23:38 Eos % (Auto) 1.3 % 04/15/20 23:38 Baso % (Auto) 0.4 % 04/15/20 23:38 Neut # (Auto) 9.23 K/uL (1.4-6.5) H 04/15/20 23:38 Lymph # (Auto) 2.05 K/uL (1.2-3.4) 04/15/20 23:38 [place] # (Auto) 1.13 K/uL (0.11-0.59) H 04/15/20 23:38 Eos # (Auto) 0.16 K/uL (0-0.5) 04/15/20 23:38 Baso # (Auto) 0.05 K/uL (0-0.2) 04/15/20 23:38 Immature Gran # (Auto) 0.05 K/uL (0.00-0.02) H 04/15/20 23:38 Sodium 133 mmol/L (136-145) L 04/16/20 02:44 Potassium 3.9 mmol/L (3.5-5.1) 04/16/20 02:44 Chloride 96 mmol/L (98-107) L 04/16/20 02:44 Carbon Dioxide 26 mmol/L (21-32) 04/16/20 02:44 Anion Gap 11.0 (3-11) 04/16/20 02:44 BUN 65 mg/dl (7-18) H 04/16/20 02:44 Creatinine 2.27 mg/dl (0.6-1.4) H 04/16/20 02:44 Est Cr Clr Drug Dosing Not Reportable 04/16/20 02:44 Est GFR ( Amer) 32.0 04/16/20 02:44 Est GFR (Non-Af Amer) 27.6 04/16/20 02:44 BUN/Creatinine Ratio 28.5 (10-20) H 04/16/20 02:44 Glucose 193 mg/dl (70-99) H 04/16/20 02:44 POC Lactic Acid Brayan 1.93 mmol/L (0.90-1.70) H 04/16/20 00:09 Lactate 1.1 mmol/L (0.4-2.0) 04/16/20 02:40 Calcium 8.3 mg/dl (8.5-10.1) L 04/16/20 02:44 Magnesium 1.6 mg/dl (1.8-2.4) L 04/15/20 23:38 Total Bilirubin 0.5 mg/dl (0.2-1) 04/15/20 23:38 AST 30 U/L (15-37) 04/15/20 23:38 ALT 33 U/L (12-78) 04/15/20 23:38 Alkaline Phosphatase 89 U/L (45-117) 04/15/20 23:38 Troponin I 0.033 ng/ml (0-0.045) 04/15/20 23:38 Total Protein 7.5 gm/dl (6.4-8.2) 04/15/20 23:38 Albumin 2.7 gm/dl (3.4-5.0) L 04/15/20 23:38 Globulin 4.8 gm/dl (2.5-4.0) H 04/15/20 23:38 Albumin/Globulin Ratio 0.6 (0.9-2) L 04/15/20 23:38 Procalcitonin 0.21 ng/ml (0-0.5) 04/15/20 23:38 Digoxin 1.0 ng/ml (0.8-2.0) 04/16/20 02:44 Diagnostic Findings Chest x-ray as per my interpretation right lobe infiltrate, atelectasis EKG as per my interpretation : Rate 90, NSR, LAD, LAFB, T wave abnormalities inferior leads, low voltage Code Status & VTE Plan VTE Prophylaxis Plan VTE Prophylaxis will be ordered: Yes
[2020-04-16] MEDS: NSS + 20MEQ KCL 20 MEQ/1,000 ML BAG IV SCH ×2 (04:57→17:23)
[2020-04-16] MEDS: INSULIN ASPART 100 UNITS/ML 3 ML PEN SC SCH ×5 (05:01→20:45)
[2020-04-16] MEDS: PATIENT'S HEIGHT AND/OR WEIGHT NEEDED SCH ×3 (05:07→05:26)
--- NOTE | 2020-04-16 07:05 | XRay Report ---
XR chest 1V portable HISTORY: 75 years-old Male cough, hypotension, pna acute cough with hypotension COMPARISON: Chest radiograph 04/13/2020 TECHNIQUE: Portable AP view of the chest FINDINGS: Cardiac silhouette is normal in size. Linear left lung base opacities suggest probable atelectasis. I ll-defined medial right lung base opacities persist. No pneumothorax, large pleural effusion or overt pulmonary edema. Mildly improved aeration of the medial right lung base. Healed remote left-sided ri b fractures. Degenerative changes of the shoulders and spine. Fusion hardware of the cervical spine. IMPRESSION: 1. Mildly improved aeration of the medial right lung base with persistent ill-defined bibasilar opaci ties favoring atelectasis. Pneumonitis considered less likely. ACT 112: Negative or not required by law. The above report was generated using voice recognition software. It may contain grammatical, syntax o r spelling errors. Electronically signed by: Iván Murphy M.D. 04/16/2020 7:04 AM
[2020-04-16] MEDS: FLUTICASONE/VILANTEROL 100/25MCG 14 PUFFS/INHALER INH SCH (07:55)
[2020-04-16] MEDS: MULTIVITAMIN TAB PO SCH (07:56)
[2020-04-16] MEDS: DOXYCYCLINE HYCLATE 100 MG CAP PO SCH ×2 (07:56→20:44)
[2020-04-16] MEDS: NICOTINE 21 MG/24 HR TDSY TD SCH (07:56)
[2020-04-16] MEDS: GABAPENTIN 100 MG CAP PO SCH ×2 (07:57→13:38)
[2020-04-16] MEDS: POLYETHYLENE (MIRALAX) 17 GM PACK PO SCH (07:58)
[2020-04-16] MEDS: INSULIN GLARGINE SOLOSTAR 100 UNITS/ML 3 ML PEN SC SCH ×2 (07:58→20:46)
[2020-04-16] MEDS ORDERED: CHECK FENTANYL PATCH PLACEMENT SCH ×2 (08:00)
[2020-04-16] MEDS: APIXABAN 5 MG TABLET PO SCH ×2 (08:22→20:43)
[2020-04-16 08:27] LABS: Basophils # (auto) 0.04 K/uL (0-0.2); Basophils % (auto) 0.4 %; Eosinophils # (auto) 0.23 K/uL (0-0.5); Eosinophils % (auto) 2.4 %; Hematocrit (blood only) 37.6 % (42-52); Hemoglobin 11.8 g/dL (14.0-18.0); Immature Granulocytes # (auto) 0.03 K/uL (0.00-0.02); Immature Granulocytes % (auto) 0.3 %; Lymphocytes # (auto) 2.28 K/uL (1.2-3.4); Lymphocytes % (auto) 23.9 %; Mean Corpuscular Hemoglobin 23.4 pg (25-34); Mean Corpuscular Hgb Conc 31.4 g/dL (32-36); Mean Corpuscular Volume 74.6 fL (80-100); Monocytes # (auto) 1.06 K/uL (0.11-0.59); Monocytes % (auto) 11.1 %; Neutrophils # (auto) 5.91 K/uL (1.4-6.5); Neutrophils % (auto) 61.9 %; Platelet Count 207 K/uL (130-400); RDW Coefficient of Variation 18.2 % (11.5-14.5); RDW Standard Deviation 49.5 fL (36.4-46.3); Red Blood Count 5.04 M/uL (4.7-6.1); White Blood Count 9.55 K/uL (4.8-10.8)
[2020-04-16] MEDS: OXYCODONE HCL IR 5 MG TAB (IMMEDIATE RELEASE) PO PRN ×2 (08:41→20:42)
[2020-04-16 08:56] LABS: BUN Creatinine Ratio 31.3 (10-20); Calcium 8.7 mg/dl (8.5-10.1); Creatinine Clr Calc Pharmacy 34.8 ml/min; Est GFR (African American) 35.5; Est GFR (Non-African American) 30.7; Magnesium 1.9 mg/dl (1.8-2.4); Potassium 3.4 mmol/L (3.5-5.1)
[2020-04-16] MEDS ORDERED: fentaNYL 12 MCG/HR TDSY TD SCH ×2 (09:00)
[2020-04-16] MEDS ORDERED: fentaNYL 25 MCG/HR TDSY TD SCH (09:00)
[2020-04-16] MEDS ORDERED: LIDOCAINE 5% 1 PATCH TD PRN (09:00)
[2020-04-16] MEDS ORDERED: POTASSIUM CHLORIDE 20 MEQ TABCR PO STA (11:05)
--- NOTE | 2020-04-16 12:35 | Electrocardiogram Report ---
Test Reason : Blood Pressure : / mmHG Vent. Rate : 092 BPM Atrial Rate : 092 BPM P-R Int : 194 ms QRS Dur : 106 ms QT Int : 382 ms P-R-T Axes : 092 -48 114 degrees QTc Int : 472 ms Sinus rhythm with Premature atrial complexes Left anterior fascicular block Anterolateral infarct (cited on or before 06-JAN-2019) Abnormal ECG When compared with ECG of 13-APR-2020 16:46, Sinus rhythm has replaced Atrial fibrillation Nonspecific T wave abnormality now evident in Inferior leads Confirmed by Woo Bernard ([id number]) on 04/16/2020 12:35:45 PM Referred By: REFERRED SELF Confirmed By:Woo Bernard
[2020-04-16] MEDS: CHECK FENTANYL PATCH PLACEMENT SCH (16:09)
[2020-04-16] MEDS: FINASTERIDE 5 MG TAB PO SCH (16:24)
--- NOTE | 2020-04-16 17:05 | Communication Note ---
Date of Service: April 16, 2020 The patient was seen and examined in medical telemetry unit He was admitted with pneumonia and sepsis Has been feeling much better since admission Remains hemodynamically stable Will have full documentation tomorrow. Dr Farrah mcdonough
[2020-04-16 18:09] LABS: Appearance Urine Clear (Clear); Bilirubin Urine Negative (Negative); Blood Urine Negative (Negative); Color Urine Yellow; Glucose Urine UA 1+ (Negative); Ketones Urine Negative (Negative); Leukocyte Esterase Urine Negative (Negative); Nitrite Urine Negative (Negative); Protein Urine 1+ (Negative); Urobilinogen Urine Negative (Negative)
[2020-04-16 18:25] LABS: Bacteria Urine Automated 1+ (Negative); Epithelial Cell Urine Auto >30 /lpf (0-5); RBC Urine Automated 0-4 /hpf (0-4)
[2020-04-16] MEDS ORDERED: BACLOFEN 10 MG TAB PO SCH (21:00)
[2020-04-16] MEDS ORDERED: FENOFIBRATE NANOCRYSTALLIZED 48 MG TABLET PO SCH (21:00)
[2020-04-16] MEDS ORDERED: PRAVASTATIN SOD 20 MG TAB PO SCH (21:00)
[2020-04-16] MEDS ORDERED: GABAPENTIN 300 MG CAP PO SCH (21:00)
[2020-04-17] MEDS: CHECK FENTANYL PATCH PLACEMENT SCH ×3 (00:17→15:45)
[2020-04-17] MEDS ORDERED: cefTRIAXone SODIUM 2,000 MG in DEXTROSE 5% 50 ML IV SCH (01:00)
[2020-04-17] MEDS: DICLOFENAC SOD 1% GEL 100 GM TUBE EXT SCH ×2 (02:17→07:56)
[2020-04-17] MEDS: OXYCODONE HCL IR 5 MG TAB (IMMEDIATE RELEASE) PO PRN (04:10)
[2020-04-17 07:37] LABS: Basophils # (auto) 0.04 K/uL (0-0.2); Basophils % (auto) 0.5 %; Eosinophils # (auto) 0.26 K/uL (0-0.5); Hematocrit (blood only) 36.5 % (42-52); Hemoglobin 11.3 g/dL (14.0-18.0); Immature Granulocytes # (auto) 0.05 K/uL (0.00-0.02); Immature Granulocytes % (auto) 0.6 %; Lymphocytes # (auto) 2.08 K/uL (1.2-3.4); Lymphocytes % (auto) 23.9 %; Mean Corpuscular Hemoglobin 23.5 pg (25-34); Mean Corpuscular Volume 75.9 fL (80-100); Mean Platelet Volume 10.8 fL (7.4-10.4); Monocytes # (auto) 0.87 K/uL (0.11-0.59); Neutrophils # (auto) 5.41 K/uL (1.4-6.5); Platelet Count 195 K/uL (130-400); RDW Coefficient of Variation 18.1 % (11.5-14.5); RDW Standard Deviation 50.2 fL (36.4-46.3); Red Blood Count 4.81 M/uL (4.7-6.1); White Blood Count 8.71 K/uL (4.8-10.8)
[2020-04-17] MEDS: POLYETHYLENE (MIRALAX) 17 GM PACK PO SCH (07:55)
[2020-04-17] MEDS: FLUTICASONE/VILANTEROL 100/25MCG 14 PUFFS/INHALER INH SCH (07:56)
[2020-04-17] MEDS: DOXYCYCLINE HYCLATE 100 MG CAP PO SCH (07:57)
[2020-04-17] MEDS: MULTIVITAMIN TAB PO SCH (07:57)
[2020-04-17] MEDS: APIXABAN 5 MG TABLET PO SCH (07:57)
[2020-04-17] MEDS: GABAPENTIN 100 MG CAP PO SCH ×2 (07:57→14:07)
[2020-04-17] MEDS: NICOTINE 21 MG/24 HR TDSY TD SCH (07:57)
[2020-04-17] MEDS: INSULIN GLARGINE SOLOSTAR 100 UNITS/ML 3 ML PEN SC SCH (07:59)
[2020-04-17] MEDS: INSULIN ASPART 100 UNITS/ML 3 ML PEN SC SCH ×2 (08:01→11:53)
[2020-04-17 08:09] LABS: BUN Creatinine Ratio 37.7 (10-20); Calcium 9.1 mg/dl (8.5-10.1); Creatinine Clr Calc Pharmacy 57.5 ml/min; Est GFR (African American) 64.5; Est GFR (Non-African American) 55.7; Potassium 4.4 mmol/L (3.5-5.1)
[2020-04-17] MEDS ORDERED: fentaNYL 25 MCG/HR TDSY TD SCH (09:00)
[2020-04-17] MEDS ORDERED: fentaNYL 12 MCG/HR TDSY TD SCH (09:00)
[2020-04-17] MEDS: FINASTERIDE 5 MG TAB PO SCH (15:44)
--- NOTE | 2020-04-17 15:52 | Hospitalist Progress Note ---
Date of Service April 17, 2020 Assessment & Plan (1) Severe sepsis: SIRS plus ARF Recent community-acquired pneumonia discharged on cefdinir and doxycycline Rx Chest x-ray showed right basilar infiltrate more than the left but overall improvement compared with prior UTI has been ruled out Blood cultures have been negative so Has been getting intravenous ceftriaxone and doxycycline We will continue with cefdinir and doxycycline as before Other significant past medical conditions remain stable as below: AF/AFL, rate controlled on Eliquis COPD as per records, pulmonary status at baseline PVD as per records DM2 on oral meds, suboptimal control as of recent hemoglobin A1c of 8.4 this mon th Rcuakvf-Zlfjf-Yivmo neuropathy Functional disability ongoing tobacco abuse-strongly advised to quit smoking Patient daughter requesting updates from providers. Miss Shantell Cherry, contact #[phone]. Discussed with the patient daughter and we are all in agreement that he can be discharged this afternoon Admission and Anticipated Discharge Date Admission Date: April 16, 2020 Subjective The patient was seen and examined in medical floor He has been feeling a lot better Only complains his cough without any phlegm and no shortness of breath Has been ambulating well and did very good with physical therapy Review of Systems Review of Systems: All systems reviewed and are unremarkable except as noted below Respiratory: + cough; no dyspnea and no dyspnea on exertion Cardiovascular: no chest pain Physical Exam Physical Exam: Sitting on a chair without any acute distress Constitutional: well developed, well nourished and + obese; no acute distress and not ill appearing Eyes: PERRL, conjunctivae normal, anicteric sclerae ENMT: external ear and nose normal, oropharynx normal Neck: trachea midline, no thyromegaly Respiratory: normal respiratory effort; no respiratory distress Auscultation: + crackles (Minimal crackles right base) Cardiovascular: Rate/Rhythm: regular rate and regular rhythm Heart Sounds: no murmur Gastrointestinal (Abdomen): Inspection/Auscultation: abdomen normal to inspection; abdomen not distended Percussion/Palpation: abdomen soft; abdomen nontender Musculoskeletal: No acute arthritis involving any joints Neurologic: moves all extremities; no focal motor deficits Alert, awake and oriented x3 Results & Data Results & Data ([facility]) Vital Signs (Past 12 Hours) Vital Signs Temp Pulse Pulse Resp BP Pulse Ox 04/17/20 15:32 36.6 C 78 20 159/81 H 96 04/17/20 11:18 36.7 C 83 18 126/74 96 04/17/20 08:39 36.5 C 84 17 157/77 H 93 04/17/20 08:30 78 Laboratory Results Short CBC 04/17/20 Range/Units 07:13 WBC 8.71 (4.8-10.8) K/uL Hgb 11.3 L (14.0-18.0) g/dL Hct 36.5 L (42-52) % Plt Count 195 (130-400) K/uL BMP 04/17/20 07:13 Sodium 135 L Potassium 4.4 D Chloride 102 Carbon Dioxide 27 BUN 48 H Creatinine 1.27 D Glucose 176 H Calcium 9.1 Urine 04/16/20 Range/Units 17:15 Urine Color Yellow Urine Appearance Clear (Clear) Urine pH 5.0 (4.5-7.5) Ur Specific [place] 1.020 (1.000-1.030) Urine Protein 1+ H (Negative) Urine Glucose (UA) 1+ H (Negative) Medications Administered Current Inpatient Medications Acetaminophen (Tylenol) 650 mg PO Q4H PRN PRN Reason: Pain or Fever Stop: 05/16/20 03:54 Last Admin: 04/17/20 00:32 Dose: 650 mg Documented by: Apixaban (Eliquis) 5 mg PO BID [facility] Stop: 05/16/20 08:59 Last Admin: 04/17/20 07:57 Dose: 5 mg Documented by: Baclofen (Lioresal) 10 mg PO [facility] Stop: 05/16/20 20:59 Last Admin: 04/16/20 20:51 Dose: 10 mg Documented by: Dextrose (Dextrose 50%) 25 - 50 ml IV UD PRN; Protocol PRN Reason: Hypoglycemia Protocol Stop: 05/16/20 03:54 Diclofenac Sodium (Voltaren 1% Top) 2 gm EXT BID [facility] Stop: 05/17/20 01:19 Last Admin: 04/17/20 07:56 Dose: 2 gm Documented by: Doxycycline Hyclate (Vibramycin) 100 mg PO BID [facility] Stop: 04/23/20 08:59 Last Admin: 04/17/20 07:57 Dose: 100 mg Documented by: Fenofibrate (Fenofibrate) 48 mg PO [facility] Stop: 05/16/20 20:59 Last Admin: 04/16/20 20:43 Dose: 48 mg Documented by: Fentanyl (Duragesic) 25 mcg TD Q3D [facility] Stop: 05/01/20 08:59 Last Admin: 04/17/20 08:10 Dose: 25 mcg Documented by: Fentanyl (Duragesic) 12 mcg TD Q3D [facility] Stop: 05/01/20 08:59 Last Admin: 04/17/20 08:09 Dose: 12 mcg Documented by: Finasteride (Proscar) 5 mg PO QDD [facility] Stop: 05/16/20 16:29 Last Admin: 04/17/20 15:44 Dose: 5 mg Documented by: Fluticasone/Vilanterol (Breo Ellipta 100/25 Mcg Inh) 1 puffs INH DAILY [facility] Stop: 05/16/20 08:59 Last Admin: 04/17/20 07:56 Dose: 1 puffs Documented by: Gabapentin (Neurontin) 300 mg PO HS [facility] Stop: 05/16/20 20:59 Last Admin: 04/16/20 20:44 Dose: 300 mg Documented by: Gabapentin (Neurontin) 100 mg PO BID@0900,1400 [facility] Stop: 05/16/20 08:59 Last Admin: 04/17/20 14:07 Dose: 100 mg Documented by: Glucagon (Glucagen) 1 mg SQ UD PRN; Protocol PRN Reason: Hypoglycemia Protocol Stop: 05/16/20 03:54 Glucose (Dex4 Glucose) 4 - 8 tabs PO UD PRN; Protocol PRN Reason: Hypoglycemia Protocol Stop: 05/16/20 03:54 Glucose (Glucose 40%) 15 - 30 gm PO UD PRN; Protocol PRN Reason: Hypoglycemia Protocol Stop: 05/16/20 03:54 Hydromorphone HCl (Dilaudid) 0.5 mg IV Q6H PRN PRN Reason: Pain Stop: 04/30/20 03:54 Promethazine HCl 12.5 mg/ (Sodium Chloride) 50.5 mls @ 202 mls/hr IV Q6H PRN PRN Reason: Nausea And Vomiting Stop: 05/16/20 03:54 Ceftriaxone Sodium 2,000 mg/ (Dextrose) 70 mls @ 100 mls/hr IV Q24H [facility]; Protocol Stop: 04/22/20 01:41 Last Infusion: 04/17/20 01:55 Dose: Infused Documented by: Insulin Aspart (Novolog Flexpen) 0 units SC ACHS [facility] Stop: 05/16/20 03:54 Last Admin: 04/17/20 11:53 Dose: 11 units Documented by: Insulin Glargine (Lantus Solostar Pen) 5 units SC BID [facility] Stop: 05/16/20 08:59 Last Admin: 04/17/20 07:59 Dose: 5 units Documented by: Ipratropium [place] (Atrovent 0.02% 0.5mg/2.5ml) 0.5 mg INH Q4H PRN PRN Reason: Shortness Of Breath Or Wheezing Stop: 05/16/20 04:06 Last Admin: 04/16/20 06:22 Dose: 0.5 mg Documented by: Levalbuterol HCl (Xopenex 1.25mg/0.5ml Neb) 1.25 mg INH Q4H PRN PRN Reason: Shortness Of Breath Or Wheezing Stop: 05/16/20 03:54 Last Admin: 04/16/20 06:22 Dose: 1.25 mg Documented by: Lidocaine (Lidoderm 5%) 1 patch TD DAILY PRN PRN Reason: Pain Stop: 05/16/20 08:59 Miscellaneous (Carbohydrates For Hypoglycemia) 15 - 30 gm PO UD PRN PRN Reason: Hypoglycemia Protocol Stop: 05/16/20 03:54 Miscellaneous (Remove Nicoderm Patch) 1 ea N/A DAILY@0859 [facility] Stop: 05/16/20 08:58 Last Admin: 04/17/20 07:55 Dose: 1 ea Documented by: Miscellaneous (Remove Lidoderm Patch) 1 ea N/A DAILY@2100 PRN PRN Reason: Pain Stop: 05/16/20 20:59 Miscellaneous (Fentanyl Patch Remove & Waste) 2 ea N/A Q72H [facility] Stop: 05/17/20 08:58 Last Admin: 04/17/20 08:01 Dose: 2 ea Documented by: Miscellaneous (Fentanyl Patch Check Placement) 2 ea N/A QS [facility] Stop: 05/16/20 15:59 Last Admin: 04/17/20 15:45 Dose: 2 ea Documented by: Multivitamins (Multivitamin Tab) 1 tab PO QAM [facility] Stop: 05/16/20 08:59 Last Admin: 04/17/20 07:57 Dose: 1 tab Documented by: Nicotine (Nicoderm Cq) 21 mg TD DAILY [facility] Stop: 05/16/20 08:59 Last Admin: 04/17/20 07:57 Dose: 21 mg Documented by: Oxycodone HCl (Roxicodone Immediate Rel) 15 mg PO Q6H PRN PRN Reason: Pain Stop: 04/30/20 03:54 Last Admin: 04/17/20 04:10 Dose: 15 mg Documented by: Polyethylene Glycol (Miralax Powder Packet) 17 gm PO QAM [facility] Stop: 05/16/20 08:59 Last Admin: 04/17/20 07:55 Dose: Not Given Documented by: Pravastatin Sodium (Pravachol) 20 mg PO HS [facility] Stop: 05/16/20 20:59 Last Admin: 04/16/20 20:45 Dose: 20 mg Documented by:
--- NOTE | 2020-04-18 07:57 | Discharge Summary ---
Date of Service April 18, 2020 Admission HPI Per Admitting Provider History obtained from patient, daughter, and records. Medical history significant for AFib/atrial flutter on Eliquis, hypertension, COPD as per records, PVD as per records, DM2 on oral meds, Gpsisss-Zjyyd-Yhtbu neuropathy, chronic pain on narcotics, chronic anemia (baseline hemoglobin of 12 ), ongoing tobacco abuse Recent confinement April [id number] for encephalopathy attributed to community- acquired pneumonia and narcotic medications. Patient discharged yesterday on cefdinir and doxycycline course. Cough somewhat loosening up at home as per patient. Appetite okay. Patient noted to look tired by family in the afternoon. SBP noted to be 70s. Patient denies chest pain, S OB. Denies aspiration. Denies headache, abdominal pain, diarrhea, dysuria. Patient brought to the ER for evaluation. Initial SBP 90s upon arrival at the ER. MEDICAL HISTORY: As above. SURGERIES: He has had tonsillectomy, neck surgery, cholecystectomy, nasal reconstruction, toe surgery, cataract surgery FAMILY HISTORY: There is a family history of heart disease, COPD, Zpugdea-Urjfr-Gwbyx disease. PERSONAL AND SOCIAL HISTORY: Past smoker. Occasional EtOH intake. 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 Admission Exam Per Admitting Provider Physical Exam: GENERAL: Slightly uncomfortable, slightly hard of hearing, obese, no respiratory distress SKIN: Pallor , warm HEENT: Pale palpebral conjunctivae, no ptosis, dry buccal mucosa NECK : Supple, short neck, no tenderness CHEST : Decreased breath sounds, expiratory wheezes, no tenderness HEART : RRR, no obvious murmurs ABDOMEN: Some distention, nontender EXTREMITIES : Bilateral LE venous stasis chronic right foot deformity, no other conspicuous deformities noted NEUROLOGIC : Coherent, slightly hard of hearing, no facial asymmetry, gait and stance not assessed Principal Diagnosis Sepsis secondary pneumonia, TIO-improved Discharge Exam Constitutional well developed, well nourished and + obese; no acute distress and not ill appearing Eyes PERRL, conjunctivae normal, anicteric sclerae ENMT external ear and nose normal, oropharynx normal Neck trachea midline, no thyromegaly Respiratory normal respiratory effort; no respiratory distress Auscultation: + crackles (Minimal crackles right base) Cardiovascular Rate/Rhythm: regular rate and regular rhythm Heart Sounds: no murmur Gastrointestinal (Abdomen) Inspection/Auscultation: abdomen normal to inspection; abdomen not distended Percussion/Palpation: abdomen soft; abdomen nontender Neurologic moves all extremities; no focal motor deficits Discharge Data Allergies Allergy/AdvReac Type Severity Reaction Status Date / Time Penicillins Allergy Intermediate RASH Verified 04/16/20 00:35 sulfamethoxazole AdvReac Mild arf, Verified 04/16/20 00:35 [From Bactrim] hyperkalemia trimethoprim [From Bactrim] AdvReac Mild arf, Verified 04/16/20 00:35 hyperkalemia Consultations 04/16/20 01:21 ED Decision to Admit Stat 04/16/20 03:55 Consult Case Management - Discharge Planning Routine Hospital Course (1) Severe sepsis: SIRS plus ARF Recent community-acquired pneumonia discharged on cefdinir and doxycycline Rx Chest x-ray showed right basilar infiltrate more than the left but overall improvement compared with prior UTI has been ruled out Blood cultures have been negative so Has been getting intravenous ceftriaxone and doxycycline We will continue with cefdinir and doxycycline as before Other significant past medical conditions remain stable as below: AF/AFL, rate controlled on Eliquis COPD as per records, pulmonary status at baseline PVD as per records DM2 on oral meds, suboptimal control as of recent hemoglobin A1c of 8.4 this month Biydcod-Camwu-Jpfxm neuropathy Functional disability ongoing tobacco abuse-strongly advised to quit smoking Patient daughter requesting updates from providers. Miss Shantell Cherry, contact #[phone]. Discussed with the patient daughter and we are all in agreement that he can be discharged this afternoon Total Time Total Time Spent Total Time Spent (In Minutes): 35 minutes Total Time Includes: Examination of the Patient, Discharge Planning, Medication Reconciliation and Communication With Other Providers Discharge Plan Discharge Items Patient Disposition: Home - Home Health Services Reason For Visit: SEPSIS, ARF Discharge Diagnosis: Sepsis secondary pneumonia, TIO-improved Condition on Discharge: Fair Activity: Resume your previous activity Non-emergency contact: Primary Care Provider Call non-emergency contact if: you have any medication questions and your symptoms worsen Follow-up/Referrals: Mohan Perry MD [Primary Care Provider] - 04/23/20 4:20 pm Diet: Carb Consistent or DM2 and Heart Healthy Addtl Attending Provider Instructions: Please take precaution to avoid falls Finish your course of antibiotic as prescribed You can take some probiotics [id number] to prevent any antibiotic induced diarrhea. Pending Studies at Discharge: No Stand-Alone Forms: My [facility] Delf[employer], Smoking Cessation Medications and DC Order Prescriptions: Continued celecoxib [Celebrex] 200 mg capsule 200 mg PO DAILY PRN (Reason: Pain) RF: 0 ascorbic acid (vitamin C) [Vitamin C] 1,000 mg Tablet 1,000 mg PO QAM RF: 0 omeprazole 40 mg Capsule,Delayed Release(Dr/Ec) 40 mg PO QAM RF: 0 metformin 1,000 mg Tablet 1,000 mg PO BID RF: 0 glimepiride 4 mg Tablet 4 mg PO QAM RF: 0 digoxin [Digox] 125 mcg Tablet 125 mcg PO DAILY@1600 RF: 0 metoprolol succinate 25 mg Tablet Extended Release 24 Hr 12.5 mg PO BID RF: 0 albuterol sulfate [Ventolin HFA] 90 mcg/actuation Hfa Aerosol Inhaler 2 puff INHALATION Q6H PRN (Reason: Shortness Of Breath) RF: 0 finasteride 5 mg Tablet 5 mg PO QDD RF: 0 Eliquis 5 mg Tablet 5 mg PO BID RF: 0 Jardiance 10 mg Tablet 10 mg PO QAM RF: 0 pravastatin [Pravachol] 20 mg tablet 20 mg PO HS RF: 0 fenofibrate nanocrystallized [Tricor] 48 mg tablet 48 mg PO HS RF: 0 ramipril 5 mg Capsule 5 mg PO BID RF: 0 B-complex with vitamin C [Super B Complex-Vitamin C] Tablet 1 tab PO QPM RF: 0 omega 2-mwm-abn-fish oil [Fish Oil] 1,000 mg (120 mg-180 mg) Capsule 1 cap PO QDD RF: 0 fluticasone propion-salmeterol [Advair Diskus] 250-50 mcg/dose Blister With Device 1 inh INHALATION BID RF: 0 polyethylene glycol 3350 [Miralax] 17 gram Powder In Packet 17 g PO QAM RF: 0 oxycodone 10 mg tablet 15 mg PO Q6H PRN (Reason: Pain) RF: 0 diclofenac sodium 1 % Gel 2 g TOPICAL BID RF: 0 multivitamin Tablet 1 tab PO QAM RF: 0 lidocaine 5 % adhesive patch,medicated 1 patch topical UD RF: 0 torsemide 20 mg tablet 20 mg PO MOWEFR RF: 0 baclofen 10 mg tablet 10 mg PO HS RF: 0 gabapentin [Neurontin] 300 mg capsule 300 mg PO HS RF: 0 gabapentin [Neurontin] 100 mg capsule 100 mg PO BID RF: 0 Calmoseptine 0.44-20.6 % Ointment 1 applic TOPICAL DAILY PRN (Reason: Rash) RF: 0 magnesium oxide 400 mg (241.3 mg magnesium) tablet 400 mg PO HS RF: 0 cholecalciferol (vitamin D3) 2,000 unit tablet 2,000 units PO QPM RF: 0 fentanyl 37.5 mcg/hour patch 72 hour 37.5 mcg transdermal USEASDIRECTD RF: 0 doxycycline hyclate 100 mg Capsule 100 mg PO BID Qty: 14 RF: 0 nicotine 21 mg/24 hr patch 24 hour 1 patch TD DAILY Qty: 14 RF: 1 cefdinir 300 mg capsule 300 mg PO BID Qty: 14 RF: 0 Discharge Orders: Discharge Order (Routine); Ordered 04/17/20 Ordered By: Freeman Telles Admission Data Admit Date/Time: 04/16/20 02:00 Attending Provider: Freeman Telles Admit Provider: Donovan Carey Primary Care Provider: Mohan Perry Other Providers: Donovan Carey Other Interventions: Discharge Summary Assessment (RN) Last Done: 04/17/20 16:09 DC Date/Time DO NOT enter until pt leaves facility: 04/17/20 16:44
== END 2020-04-17 16:44 | disposition home health service (06) | DRG 871 ==
LOC: ED 22:53 → 2W 04-16 02:00 → SUATTDRO 04-16 02:00 → 2W 04-16 03:09

== ENCOUNTER 2020-06-18 07:02 | Inpatient (IN) ==
[2020-06-18] MEDS ORDERED: SODIUM CHLORIDE 0.9% 500 ML IV SCH (07:15)
--- NOTE | 2020-06-18 07:48 | XRay Report ---
XR chest 1V portable HISTORY: 75 years-old Male weakness acute weakness COMPARISON: Chest radiograph 04/15/2020 TECHNIQUE: Portable AP view of the chest FINDINGS: Cardiac silhouette is enlarged. Pulmonary vascular congestion with mild interstitial coarsening. No p neumothorax, pleural effusion or lobar airspace consolidation. Mild bibasilar densities favoring atel ectasis. Healed remote left-sided rib fractures. Degenerative changes of the shoulders and spine. IMPRESSION: 1. Cardiomegaly with pulmonary vascular congestion. 2. Mild bibasilar densities favoring atelectasis. ACT 112: Negative or not required by law. The above report was generated using voice recognition software. It may contain grammatical, syntax o r spelling errors. Electronically signed by: Iván Murphy M.D. 06/18/2020 7:47 AM
--- NOTE | 2020-06-18 08:07 | Emergency Department Note ---
History of Present Illness General Chief complaint: Fall Stated complaint: GLF, Hit head +blood thinners Time Seen by Provider: 06/18/20 07:04 Source: patient, family (daughter), EMS, RN notes reviewed and old records reviewed Mode of arrival: EMS Limitations: no limitations History of Present Illness Provider complaint: multiple falls, left knee pain Onset (ago): day(s) 1 Location: lower extremity and left Severity: moderate Pain Consistency: + intermittent and + colicky Maximum Pain Intensity: 5 Current Pain Intensity: 5 Quality: + aching Relieved By: + immobilization Exacerbated By: + movement Associated symptoms: + other (Commonly falls asleep) Treatments prior to arrival: none This is a 75-year-old male who lives at home who comes into the emergency department over concerns of multiple falls that have been ongoing for the past month. The patient fell last evening and was unable to get up off the floor. EMS was summoned who brought the patient to the emergency department. The patient reports he keeps falling asleep in multiple places and falling over. Last night he fell asleep in his chair, fell out and struck his head. He is also complaining of left knee pain. He describes the pain as a burning sensation with no radiation. He reports movement makes the pain worse however immobilization makes the pain better. Patient reports he has been unable to walk on his legs for quite some time. Home Medications Home Medications Medication Instructions Recorded Confirmed Type Eliquis 5 mg PO BID 01/06/19 06/18/20 History Jardiance 10 mg PO QAM 01/06/19 06/18/20 History albuterol sulfate [Ventolin HFA] 2 puff INHALATION Q6H PRN 01/06/19 06/18/20 History ascorbic acid (vitamin C) [Vitamin 1,000 mg PO QAM 01/06/19 06/18/20 History C] digoxin [Digox] 125 mcg PO DAILY@1600 01/06/19 06/18/20 History finasteride 5 mg PO QDD 01/06/19 06/18/20 History glimepiride 4 mg PO QAM 01/06/19 06/18/20 History metformin 1,000 mg PO BID 01/06/19 06/18/20 History metoprolol succinate 12.5 mg PO BID 01/06/19 06/18/20 History omeprazole 40 mg PO QAM 01/06/19 06/18/20 History B-complex with vitamin C [Super B 1 tab PO QPM 07/19/19 06/18/20 History Complex-Vitamin C] fluticasone propion-salmeterol 1 inh INHALATION BID 07/19/19 06/18/20 History [Advair Diskus] ramipril 5 mg PO BID 07/19/19 06/18/20 History diclofenac sodium 2 g TOPICAL BID 09/27/19 06/18/20 History oxycodone 15 mg PO Q6H PRN MDD 60mg/day 09/27/19 06/18/20 History polyethylene glycol 3350 [Miralax] 17 g PO QAM 09/27/19 06/18/20 History multivitamin 1 tab PO QAM 10/10/19 06/18/20 History fenofibrate nanocrystallized 48 mg PO HS 10/29/19 06/18/20 History [Tricor] pravastatin [Pravachol] 20 mg PO HS 10/29/19 06/18/20 History lidocaine 1 patch TOPICAL UD PRN 11/05/19 06/18/20 History torsemide 20 mg PO TUTH 11/05/19 06/18/20 History celecoxib 200 mg capsule 200 mg PO DAILY PRN 11/15/19 06/18/20 History Calmoseptine 1 applic TOPICAL DAILY PRN 04/13/20 06/18/20 History baclofen 10 mg PO HS 04/13/20 06/18/20 History cholecalciferol (vitamin D3) 2,000 units PO QPM 04/13/20 06/18/20 History fentanyl 37.5 mcg TRANSDERMAL Q72H 04/13/20 06/18/20 History gabapentin [Neurontin] 100 mg PO BID 04/13/20 06/18/20 History gabapentin [Neurontin] 300 mg PO HS 04/13/20 06/18/20 History magnesium oxide 400 mg PO PM 04/13/20 06/18/20 History acetaminophen [Tylenol Extra 1,000 mg PO TID PRN 06/18/20 06/18/20 History Strength] nicotine 1 patch TRANSDERMAL DAILY 06/18/20 06/18/20 History zinc 25 mg PO Q OTHER DAY 06/18/20 06/18/20 History Allergies Allergy/AdvReac Type Severity Reaction Status Date / Time Penicillins Allergy Intermediate RASH Verified 06/18/20 07:29 sulfamethoxazole AdvReac Mild arf, Verified 06/18/20 07:29 [From Bactrim] hyperkalemia trimethoprim [From Bactrim] AdvReac Mild arf, Verified 06/18/20 07:29 hyperkalemia Past Med/Surg History Medical History Acquired claw toe of right foot Acquired deviated nasal septum Acquired hallux valgus of right foot Atrial fibrillation Atrial flutter Choledocholithiasis Chronic sinusitis CKD (chronic kidney disease), stage III CMT (Ffxatxv-Mmrvu-Akntu disease) COPD (chronic obstructive pulmonary disease) Degenerative disc disease 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 Diabetic foot ulcer associated with type 2 diabetes mellitus Diabetic peripheral neuropathy associated with type 2 diabetes mellitus Gastroesophageal reflux disease Hallux valgus (acquired), left foot History of infection with vancomycin resistant Enterococcus (VRE) Hyperlipidemia Hypertension Hypertensive heart disease Hypertrophy of nasal turbinates Left foot drop Perirectal abscess Pneumonia Right foot drop Spinal stenosis, lumbar region with neurogenic claudication Surgical History H/O reduction of closed fracture nasal bone fracture Hx of tonsillectomy S/P cataract extraction S/P cervical spinal fusion S/P foot surgery, right Status post cholecystectomy Status post left foot surgery Family History Father Diabetes Mother Hypertension Other COPD (chronic obstructive pulmonary disease) Coronary heart disease Hearing loss Heart disease No family history of adverse response to anesthesia No family history of bleeding disorder Social History Smoking Status: Current every day smoker Tobacco Type: Cigarettes packs per day: 0.5; Cigarettes Per Day: 1 every two weeks; Second Hand Exposure: No; Do You Dip or Chew Tobacco: No; Tobacco Cessation Education Requested by Patient: No Hx Alcohol Use: No Hx Substance Use: No Preferred Language: Welsh Communication Ability: Effective Visual Impairment: Limited Hearing Ability: Hard of Hearing 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 current occupational status: retired How many Children do You have: 2 Other Information That Helps Us Care for You: No Feels Safe at Home: Yes Safety Concerns: Feels Safe At This Time Assistive Devices: Oxygen - Continuous Review of Systems A total of 10 systems reviewed and were otherwise negative Physical Exam Vital Signs Vital Signs - 24 hr 06/19/20 14:34 06/19/20 15:36 Temperature 36.5 C Temperature Source Oral Pulse Rate 82 Pulse Rate [Finger] 77 Respiratory Rate 18 Blood Pressure [Right Arm] 97/60 L Blood Pressure Mean [Right Arm] 72 Blood Pressure Position [Right Arm] Lying Pulse Oximetry 98 Oxygen Delivery Method Nasal Cannula Oxygen Flow Rate 4 VITAL SIGNS - Vital signs and nursing notes were reviewed. GENERAL - 75-year-old male appearing stated age who is in no acute distress. Communicates well with provider and answers questions appropriately. SKIN - multiple bruises face and arma and legs multiple stages of healing HEAD - bruise left face EYES - PERRL with EOMI bilaterally. Sclera anicteric. Palpebral conjunctiva pink and moist with no injection noted. EARS - No deformities of external structures noted on gross examination bilaterally. No pain elicited with palpation of the tragus bilaterally. External auditory canals without discharge or otorrhea. Tympanic membranes pearly haile without retraction or bulging. No fluid or purulent material visualized behind the TM. Handle of malleus, umbo, cone of light, pars tensa/flaccid all easily visualized. NOSE - Midline and without cyanosis. No epistaxis or purulent drainage noted. Septum midline without deviation or septal hematoma noted. MOUTH/OROPHARYNX - Without perioral cyanosis. Buccal mucosa pink and moist and without leukoplakia. Tongue midline with equal elevation of palate bilaterally. No tonsillar hypertrophy, erythema, or exudates noted. dentition noted. NECK - Neck with FROM. Supple to palpation. lymphadenopathy noted. No nuchal rigidity. LUNGS - Chest wall symmetric without accessory muscle use, intercostals retractions, or central cyanosis. Normal vesicular breath sounds CTA B/L. No wheezes, rales, or rhonchi appreciated. CARDIAC - RRR with S1/S2. No murmur, rubs, or gallops appreciated. ABDOMEN - Abdominal contour without pulsations or visible masses. BS nor moactive all four quadrants. No tenderness, palpable masses, hepatosplenomegaly, or ascites noted. EXTREMITIES - No clubbing or peripheral cyanosis. No pretibial edema present. +3/5 radial, posterior tibial, and dorsalis pedis pulses palpated throughout. +5/5 strength noted in UE/LE bilaterally. NEUROLOGIC - Cranial nerves II through XII grossly intact. Sensory intact to light touch throughout. Patellar reflexes +2/4. PSYCH - A&Ox3 and cooperates fully with examiner. Pt is very pleasant and i nteracts well with examiner. Course Administered Medications Acetaminophen (Acetaminophen 325 Mg Tab) 650 mg PO Q4H PRN PRN Reason: Pain or Fever Stop: 07/18/20 13:22 Last Admin: 06/19/20 21:53 Dose: 650 mg Documented by: [id number] Admin: 06/19/20 08:31 Dose: 650 mg Documented by: [id number] Albuterol (Albut/Ipratrop 3mg/0.5mg Neb 3 Ml Vial) 3 ml NEB QIDR PRN PRN Reason: SOB/Wheezing Stop: 07/18/20 14:59 Last Admin: 06/20/20 03:42 Dose: 3 ml Documented by: [id number] Admin: 06/19/20 17:08 Dose: 3 ml Documented by: [id number] Admin: 06/19/20 08:51 Dose: 3 ml Documented by: [id number] Admin: 06/19/20 05:56 Dose: 3 ml Documented by: [id number] Admin: 06/18/20 19:21 Dose: 3 ml Documented by: [id number] Admin: 06/18/20 17:28 Dose: 3 ml Documented by: [id number] Ascorbic Acid (Ascorbic Acid 500 Mg Tab) 1,000 mg PO QAM [facility] Stop: 07/19/20 08:59 Last Admin: 06/20/20 07:47 Dose: 1,000 mg Documented by: [id number] Admin: 06/19/20 08:20 Dose: 1,000 mg Documented by: [id number] Baclofen (Baclofen 10 Mg Tab) 10 mg PO HS [facility] Stop: 07/18/20 20:59 Last Admin: 06/19/20 21:20 Dose: 10 mg Documented by: [id number] Admin: 06/18/20 20:21 Dose: 10 mg Documented by: [id number] Diclofenac Sodium (Diclofenac Sod 1% Gel 100 Gm Tube) 2 gm EXT BID [facility] Stop: 07/18/20 20:59 Last Admin: 06/20/20 07:44 Dose: 2 gm Documented by: [id number] Admin: 06/19/20 21:23 Dose: 2 gm Documented by: [id number] Admin: 06/19/20 08:19 Dose: 2 gm Documented by: [id number] Admin: 06/18/20 20:22 Dose: 2 gm Documented by: [id number] Digoxin (Digoxin 0.125 Mg Tab) 0.125 mg PO DAILY@1600 [facility] Stop: 07/18/20 15:59 Last Admin: 06/19/20 15:57 Dose: 0.125 mg Documented by: [id number] Admin: 06/18/20 15:40 Dose: 0.125 mg Documented by: [id number] Enalapril Maleate (Enalapril Maleate 10 Mg Tab) 20 mg PO BID [facility]; Protocol Stop: 07/18/20 20:59 Last Admin: 06/20/20 07:48 Dose: 20 mg Documented by: [id number] Admin: 06/19/20 21:21 Dose: 20 mg Documented by: [id number] Admin: 06/19/20 08:21 Dose: 20 mg Documented by: [id number] Admin: 06/18/20 20:21 Dose: 20 mg Documented by: [id number] Fenofibrate (Fenofibrate Nanocrystallized 48 Mg Tablet) 48 mg PO HS [facility] Stop: 07/18/20 20:59 Last Admin: 06/19/20 21:20 Dose: 48 mg Documented by: [id number] Admin: 06/18/20 20:21 Dose: 48 mg Documented by: [id number] Fentanyl (Fentanyl 12 Mcg/Hr Tdsy) 12 mcg TD Q3D [facility] Stop: 07/02/20 14:59 Last Admin: 06/18/20 15:13 Dose: 12 mcg Documented by: [id number] Fentanyl (Fentanyl 25 Mcg/Hr Tdsy) 25 mcg TD Q3D [facility] Stop: 07/02/20 14:59 Last Admin: 06/18/20 15:13 Dose: 25 mcg Documented by: [id number] Finasteride (Finasteride 5 Mg Tab) 5 mg PO QDD [facility] Stop: 07/18/20 16:29 Last Admin: 06/19/20 15:57 Dose: 5 mg Documented by: [id number] Admin: 06/18/20 15:40 Dose: 5 mg Documented by: [id number] Fluticasone/Vilanterol (Fluticasone/Vilanterol 100/25mcg 14 Puffs/Inhaler) 1 puffs INH DAILY [facility]; Protocol Stop: 07/19/20 08:59 Last Admin: 06/20/20 07:40 Dose: 1 puffs Documented by: [id number] Admin: 06/19/20 08:20 Dose: 1 puffs Documented by: [id number] Gabapentin (Gabapentin 100 Mg Cap) 100 mg PO BID@0900,1400 [facility] Stop: 07/19/20 08:59 Last Admin: 06/19/20 14:19 Dose: 100 mg Documented by: [id number] Admin: 06/19/20 08:20 Dose: 100 mg Documented by: [id number] Cefepime HCl 2,000 mg/ Syringe 20 mls @ 5 mls/min IV Q8H [facility]; Protocol Stop: 06/25/20 14:59 Last Admin: 06/20/20 05:42 Dose: 5 mls/min Documented by: [id number] Admin: 06/19/20 21:23 Dose: 5 mls/min Documented by: [id number] Admin: 06/19/20 14:20 Dose: 5 mls/min Documented by: [id number] Admin: 06/19/20 06:22 Dose: 5 mls/min Documented by: [id number] Admin: 06/18/20 23:30 Dose: 5 mls/min Documented by: [id number] Admin: 06/18/20 15:38 Dose: 5 mls/min Documented by: [id number] Daptomycin 475 mg/ Syringe 9.5 mls @ 5 mls/min IV Q24H [facility]; Protocol Stop: 06/26/20 10:59 Last Admin: 06/20/20 10:06 Dose: 5 mls/min Documented by: [id number] Admin: 06/19/20 11:26 Dose: 5 mls/min Documented by: [id number] Insulin Aspart (Insulin Aspart 100 Units/Ml 3 Ml Pen) 0 units SC ACHS [facility] Stop: 07/18/20 13:22 Last Admin: 06/20/20 12:40 Dose: 6 units Documented by: [id number] Cosigned by: [id number] Admin: 06/20/20 08:02 Dose: 7 units Documented by: [id number] Cosigned by: [id number] Admin: 06/19/20 21:25 Dose: 3 units Documented by: [id number] Cosigned by: [id number] Admin: 06/19/20 17:13 Dose: 7 units Documented by: [id number] Cosigned by: [id number] Admin: 06/19/20 12:37 Dose: 5 units Documented by: [id number] Cosigned by: [id number] Admin: 06/19/20 08:18 Dose: 6 units Documented by: [id number] Cosigned by: [id number] Admin: 06/18/20 20:26 Dose: 2 units Documented by: [id number] Cosigned by: [id number] Admin: 06/18/20 17:22 Dose: 5 units Documented by: [id number] Cosigned by: [id number] Admin: 06/18/20 15:53 Dose: Not Given Documented by: [id number] Cosigned by: [id number] Insulin Glargine (Insulin Glargine Solostar 100 Units/Ml 3 Ml Pen) 0 - 10 units SC BID [facility] Stop: 07/18/20 20:59 Last Admin: 06/20/20 07:50 Dose: 10 units Documented by: [id number] Cosigned by: [id number] Admin: 06/19/20 21:24 Dose: 10 units Documented by: [id number] Cosigned by: [id number] Admin: 06/19/20 08:19 Dose: 10 units Documented by: [id number] Cosigned by: [id number] Admin: 06/18/20 20:25 Dose: 10 units Documented by: [id number] Cosigned by: [id number] Magnesium Oxide (Magnesium Oxide 400 Mg Tab) 400 mg PO PM [facility] Stop: 07/18/20 20:59 Last Admin: 06/19/20 21:21 Dose: 400 mg Documented by: [id number] Admin: 06/18/20 23:33 Dose: 400 mg Documented by: [id number] Metoprolol Succinate (Metoprolol Succ 25mg Ext Rel Tab) 12.5 mg PO BID [facility] Stop: 07/18/20 20:59 Last Admin: 06/20/20 07:47 Dose: 12.5 mg Documented by: [id number] Admin: 06/19/20 21:22 Dose: 12.5 mg Documented by: [id number] Admin: 06/19/20 08:21 Dose: 12.5 mg Documented by: [id number] Admin: 06/18/20 20:20 Dose: 12.5 mg Documented by: [id number] Miconazole Nitrate (Miconazole Nitrate Powder 43 Gm) 1 appln EXT BID [facility] Stop: 07/19/20 01:29 Last Admin: 06/20/20 07:40 Dose: 1 appln Documented by: [id number] Admin: 06/19/20 21:20 Dose: 1 appln Documented by: [id number] Admin: 06/19/20 08:22 Dose: 1 appln Documented by: [id number] Admin: 06/19/20 05:46 Dose: 1 appln Documented by: [id number] Miscellaneous (Remove Nicoderm Patch) 1 ea N/A DAILY@0859 [facility] Stop: 07/18/20 14:28 Last Admin: 06/20/20 07:39 Dose: 1 ea Documented by: [id number] Admin: 06/19/20 07:19 Dose: 1 ea Documented by: [id number] Admin: 06/18/20 15:38 Dose: 1 ea Documented by: [id number] Miscellaneous (Fentanyl Patch Remove & Waste) 1 ea N/A Q72H [facility] Stop: 07/18/20 14:58 Last Admin: 06/18/20 15:13 Dose: 1 ea Documented by: [id number] Cosigned by: [id number] Miscellaneous (Check Fentanyl Patch Placement) 1 ea N/A QS [facility] Stop: 07/18/20 15:59 Last Admin: 06/20/20 07:39 Dose: 1 ea Documented by: [id number] Admin: 06/20/20 00:52 Dose: 1 ea Documented by: [id number] Admin: 06/19/20 15:59 Dose: 1 ea Documented by: [id number] Admin: 06/19/20 07:18 Dose: 1 ea Documented by: [id number] Admin: 06/19/20 00:04 Dose: 1 ea Documented by: [id number] Admin: 06/18/20 15:39 Dose: 1 ea Documented by: [id number] Miscellaneous (Fentanyl Patch Remove & Waste) 1 ea N/A Q72H [facility] Stop: 07/18/20 14:58 Last Admin: 06/18/20 15:13 Dose: 1 ea Documented by: [id number] Cosigned by: [id number] Miscellaneous (Check Fentanyl Patch Placement) 1 ea N/A QS [facility] Stop: 07/18/20 15:59 Last Admin: 06/20/20 07:39 Dose: 1 ea Documented by: [id number] Admin: 06/20/20 00:52 Dose: 1 ea Documented by: [id number] Admin: 06/19/20 16:00 Dose: 1 ea Documented by: [id number] Admin: 06/19/20 07:18 Dose: 1 ea Documented by: [id number] Admin: 06/19/20 00:06 Dose: 1 ea Documented by: [id number] Admin: 06/18/20 15:39 Dose: 1 ea Documented by: [id number] Multivitamins (Multivitamin Tab) 1 tab PO QAM [facility] Stop: 07/19/20 08:59 Last Admin: 06/20/20 07:47 Dose: 1 tab Documented by: [id number] Admin: 06/19/20 08:21 Dose: 1 tab Documented by: [id number] Neomycin/Polymyxin/Bacitracin (Neomycin/Polymyx/Bacitr Oint 15 Gm Tube) 1 appln EXT BID [facility] Stop: 07/18/20 13:59 Last Admin: 06/20/20 07:43 Dose: 1 appln Documented by: [id number] Admin: 06/19/20 21:24 Dose: 1 appln Documented by: [id number] Admin: 06/19/20 08:22 Dose: 1 appln Documented by: [id number] Admin: 06/18/20 20:21 Dose: 1 appln Documented by: [id number] Admin: 06/18/20 15:39 Dose: 1 appln Documented by: [id number] Nicotine (Nicotine 21 Mg/24 Hr Tdsy) 21 mg TD QAM [facility] Stop: 07/18/20 14:29 Last Admin: 06/20/20 07:44 Dose: 21 mg Documented by: [id number] Admin: 06/19/20 08:21 Dose: 21 mg Documented by: [id number] Admin: 06/18/20 15:16 Dose: 21 mg Documented by: [id number] Oxycodone HCl (Oxycodone Hcl Ir 5 Mg Tab (Immediate Release)) 10 mg PO Q6H PRN PRN Reason: Pain Stop: 07/02/20 13:22 Last Admin: 06/20/20 12:43 Dose: 10 mg Documented by: [id number] Admin: 06/20/20 00:51 Dose: 10 mg Documented by: [id number] Admin: 06/19/20 18:57 Dose: 10 mg Documented by: [id number] Admin: 06/19/20 11:28 Dose: 10 mg Documented by: [id number] Admin: 06/19/20 05:46 Dose: 10 mg Documented by: [id number] Admin: 06/18/20 23:33 Dose: 10 mg Documented by: [id number] Admin: 06/18/20 14:36 Dose: 10 mg Documented by: [id number] Pantoprazole Sodium ([facility]antoprazole 40 Mg Tab) [facility] [place] [place] Stop: 07/19/20 08:59 Last Admin: 06/20/20 07:47 Dose: 40 mg Documented by: [id number] Admin: 06/19/20 08:21 Dose: 40 mg Documented by: [id number] Polyethylene Glycol (Polyethylene (Miralax) 17 Gm Pack) [facility] [place] Stop: 07/19/20 08:59 Last Admin: 06/20/20 07:40 Dose: 17 gm Documented by: [id number] Admin: 06/19/20 08:22 Dose: 17 gm Documented by: [id number] Torsemide (Torsemide 20 Mg Tab) 20 mg PO TuTh@0900 [facility] Stop: 07/19/20 08:59 Last Admin: 06/19/20 08:21 Dose: 20 mg Documented by: [id number] Vitamin B Complex (Vitamin B Complex Tab) 1 tab PO QPM [facility] Stop: 07/18/20 20:59 Last Admin: 06/19/20 21:22 Dose: 1 tab Documented by: [id number] Admin: 06/18/20 20:20 Dose: 1 tab Documented by: [id number] Vitamin D (Cholecalciferol 1,000 Units 25 Mcg Tab) 2,000 units PO QPM [facility] Stop: 07/18/20 20:59 Last Admin: 06/19/20 21:21 Dose: 2,000 units Documented by: [id number] Admin: 06/18/20 20:20 Dose: 2,000 units Documented by: [id number] Zinc Sulfate (Zinc Sulfate 220 Mg Capsule) 220 mg PO Q2D [facility] Stop: 07/19/20 08:59 Last Admin: 06/19/20 08:21 Dose: 220 mg Documented by: [id number] Discontinued Medications Acetaminophen (Acetaminophen 1000 Mg/100 Ml Iv) Confirm Administered Dose 1,000 mg IV .STK-MED ONE Stop: 06/18/20 08:38 Last Admin: 06/18/20 08:40 Dose: 1,000 mg Documented by: [id number] Gabapentin (Gabapentin 300 Mg Cap) 300 mg PO HS [facility] Stop: 07/18/20 20:59 Last Admin: 06/19/20 21:22 Dose: 300 mg Documented by: [id number] Admin: 06/18/20 20:19 Dose: Not Given Documented by: [id number] Hydromorphone HCl (Hydromorphone Inj 0.5 Mg/0.5 Ml Syr) Confirm Administered Dose 0.5 mg .ROUTE .STK-MED ONE Stop: 06/18/20 08:38 Last Admin: 06/18/20 08:40 Dose: 0.5 mg Documented by: [id number] Sodium Chloride (Nss) 500 mls @ 999 mls/hr IV .Q31M [facility] Stop: 06/18/20 07:45 Last Infusion: 06/18/20 09:10 Dose: 0 mls/hr Documented by: [id number] Admin: 06/18/20 08:35 Dose: 999 mls/hr Documented by: [id number] Acetaminophen (Ofirmev) 1,000 mg in 100 mls @ 400 mls/hr IV NOW STA Stop: 06/18/20 08:50 Last Admin: 06/18/20 08:41 Dose: Not Given Documented by: [id number] Clindamycin Phosphate 300 mg/ (Dextrose) 52 mls @ 100 mls/hr IV ONE ONE Stop: 06/18/20 11:04 Last Admin: 06/18/20 11:33 Dose: Not Given Documented by: [id number] Daptomycin 500 mg/ Syringe 10 mls @ 5 mls/min IV NOW ONE; Protocol Stop: 06/18/20 10:56 Last Admin: 06/18/20 11:30 Dose: 5 mls/min Documented by: [id number] Non-Formulary Medication (Fentanyl) 37.5 mcg TD Q72H [facility] Stop: 07/18/20 13:22 Last Admin: 06/18/20 14:12 Dose: Not Given Documented by: [id number] Ondansetron HCl (Ondansetron Inj 2 Mg/Ml 2 Ml Vial) 4 mg IV NOW STA Stop: 06/18/20 08:37 Last Admin: 06/18/20 08:41 Dose: Not Given Documented by: [id number] Ondansetron HCl (Ondansetron Inj 2 Mg/Ml 2 Ml Vial) Confirm Administered Dose 4 mg .ROUTE .STK-MED ONE Stop: 06/18/20 08:38 Last Admin: 06/18/20 08:40 Dose: 4 mg Documented by: [id number] Medical Decision Making Differential Diagnosis Infection, dehydration, metabolic abnormality, hypo/hyperglycemia, electrolyte disturbance, anemia, hypoxia, cardiac sources, intracerebral event, toxicologic, neurologic, as well as other pathologies. Medical Records Attestation: I reviewed the patient's medical records. Home Medications Current Medication List: was personally reviewed by me Laboratory Data Attestation: I reviewed the patient's lab results. Result diagrams: 06/19/20 07:26 06/19/20 07:26 Lab Results 06/18/20 06/18/20 06/18/20 Range/Units 07:45 07:45 07:45 WBC 12.40 H (4.8-10.8) K/uL RBC 5.25 (4.7-6.1) M/uL Hgb 11.4 L (14.0-18.0) g/dL Hct 38.8 L (42-52) % MCV 73.9 L (80-100) fL MCH 21.7 L (25-34) pg MCHC 29.4 L (32-36) g/dL RDW Std Deviation 49.4 H (36.4-46.3) fL RDW Coeff of Naomi 18.4 H (11.5-14.5) % Plt Count 275 (130-400) K/uL MPV 10.7 H (7.4-10.4) fL Immature Gran % (Auto) 0.4 % Neut % (Auto) 71.5 % Lymph % (Auto) 17.9 % [place] % (Auto) 8.5 % Eos % (Auto) 1.3 % Baso % (Auto) 0.4 % Neut # (Auto) 8.87 H (1.4-6.5) K/uL Lymph # (Auto) 2.22 (1.2-3.4) K/uL [place] # (Auto) 1.05 H (0.11-0.59) K/uL Eos # (Auto) 0.16 (0-0.5) K/uL Baso # (Auto) 0.05 (0-0.2) K/uL Immature Gran # (Auto) 0.05 H (0.00-0.02) K/uL Hypochromasia Present Microcytosis Present PT 11.6 (9.0-12.0) Seconds INR 1.1 (0.9-1.1) Sodium 135 L (136-145) mmol/L Potassium 4.5 (3.5-5.1) mmol/L Chloride 99 (98-107) mmol/L Carbon Dioxide 28 (21-32) mmol/L Anion Gap 8.0 (3-11) BUN 38 H (7-18) mg/dl Creatinine 1.24 (0.6-1.4) mg/dl Est Cr Clr Drug Dosing 61.4 ml/min Est GFR ( Amer) 66.4 Est GFR (Non-Af Amer) 57.3 BUN/Creatinine Ratio 30.4 H (10-20) Glucose 178 H (70-99) mg/dl POC Glucose (70-99) mg/dl Calcium 8.9 (8.5-10.1) mg/dl Magnesium (1.8-2.4) mg/dl Total Bilirubin 0.4 (0.2-1) mg/dl AST 30 (15-37) U/L ALT 31 (12-78) U/L Alkaline Phosphatase 112 (45-117) U/L Total Protein 7.3 (6.4-8.2) gm/dl Albumin 2.9 L (3.4-5.0) gm/dl Globulin 4.4 H (2.5-4.0) gm/dl Albumin/Globulin Ratio 0.7 L (0.9-2) TSH 1.810 (0.300-4.500) uIu/ml Urine Color Urine Appearance (Clear) Urine pH (4.5-7.5) Ur Specific [place] (1.000-1.030) Urine Protein (Negative) Urine Glucose (UA) (Negative) Urine Ketones (Negative) Urine Blood (Negative) Urine Nitrite (Negative) Urine Bilirubin (Negative) Urine Urobilinogen (Negative) Ur Leukocyte Esterase (Negative) Urine WBC (Auto) (0-5) /hpf Urine RBC (Auto) (0-4) /hpf U Hyaline Cast (Auto) (0-5) /lpf U Epithel Cells (Auto) (0-5) /lpf Urine Bacteria (Auto) (Negative) 06/18/20 06/18/20 06/18/20 Range/Units 08:05 13:26 16:43 WBC (4.8-10.8) K/uL RBC (4.7-6.1) M/uL Hgb (14.0-18.0) g/dL Hct (42-52) % MCV (80-100) fL MCH (25-34) pg MCHC (32-36) g/dL RDW Std Deviation (36.4-46.3) fL RDW Coeff of Naomi (11.5-14.5) % Plt Count (130-400) K/uL MPV (7.4-10.4) fL Immature Gran % (Auto) % Neut % (Auto) % Lymph % (Auto) % [place] % (Auto) % Eos % (Auto) % Baso % (Auto) % Neut # (Auto) (1.4-6.5) K/uL Lymph # (Auto) (1.2-3.4) K/uL [place] # (Auto) (0.11-0.59) K/uL Eos # (Auto) (0-0.5) K/uL Baso # (Auto) (0-0.2) K/uL Immature Gran # (Auto) (0.00-0.02) K/uL Hypochromasia Microcytosis PT (9.0-12.0) Seconds INR (0.9-1.1) Sodium (136-145) mmol/L Potassium (3.5-5.1) mmol/L Chloride (98-107) mmol/L Carbon Dioxide (21-32) mmol/L Anion Gap (3-11) BUN (7-18) mg/dl Creatinine (0.6-1.4) mg/dl Est Cr Clr Drug Dosing ml/min Est GFR ( Amer) Est GFR (Non-Af Amer) BUN/Creatinine Ratio (10-20) Glucose (70-99) mg/dl POC Glucose 170 H 201 H (70-99) mg/dl Calcium (8.5-10.1) mg/dl Magnesium (1.8-2.4) mg/dl Total Bilirubin (0.2-1) mg/dl AST (15-37) U/L ALT (12-78) U/L Alkaline Phosphatase (45-117) U/L Total Protein (6.4-8.2) gm/dl Albumin (3.4-5.0) gm/dl Globulin (2.5-4.0) gm/dl Albumin/Globulin Ratio (0.9-2) TSH (0.300-4.500) uIu/ml Urine Color Yellow Urine Appearance Clear (Clear) Urine pH 5.0 (4.5-7.5) Ur Specific Peterson 1.022 (1.000-1.030) Urine Protein 1+ H (Negative) Urine Glucose (UA) 3+ H (Negative) Urine Ketones Negative (Negative) Urine Blood Negative (Negative) Urine Nitrite Negative (Negative) Urine Bilirubin Negative (Negative) Urine Urobilinogen Negative (Negative) Ur Leukocyte Esterase Negative (Negative) Urine WBC (Auto) 0 (0-5) /hpf Urine RBC (Auto) 0-4 (0-4) /hpf U Hyaline Cast (Auto) 0 (0-5) /lpf U Epithel Cells (Auto) 0-5 (0-5) /lpf Urine Bacteria (Auto) Negative (Negative) 06/18/20 06/19/20 06/19/20 Range/Units 20:24 07:26 07:26 WBC 11.62 H (4.8-10.8) K/uL RBC 4.95 (4.7-6.1) M/uL Hgb 10.8 L (14.0-18.0) g/dL Hct 36.9 L (42-52) % MCV 74.5 L (80-100) fL MCH 21.8 L (25-34) pg MCHC 29.3 L (32-36) g/dL RDW Std Deviation 50.3 H (36.4-46.3) fL RDW Coeff of Naomi 18.5 H (11.5-14.5) % Plt Count 242 (130-400) K/uL MPV 10.3 (7.4-10.4) fL Immature Gran % (Auto) 0.3 % Neut % (Auto) 75.0 % Lymph % (Auto) 12.4 % [place] % (Auto) 10.9 % Eos % (Auto) 1.0 % Baso % (Auto) 0.4 % Neut # (Auto) 8.70 H (1.4-6.5) K/uL Lymph # (Auto) 1.44 (1.2-3.4) K/uL [place] # (Auto) 1.27 H (0.11-0.59) K/uL Eos # (Auto) 0.12 (0-0.5) K/uL Baso # (Auto) 0.05 (0-0.2) K/uL Immature Gran # (Auto) 0.04 H (0.00-0.02) K/uL Hypochromasia Present Microcytosis Present PT (9.0-12.0) Seconds INR (0.9-1.1) Sodium 140 (136-145) mmol/L Potassium 4.6 (3.5-5.1) mmol/L Chloride 105 (98-107) mmol/L Carbon Dioxide 27 (21-32) mmol/L Anion Gap 7.0 (3-11) BUN 33 H (7-18) mg/dl Creatinine 1.07 (0.6-1.4) mg/dl Est Cr Clr Drug Dosing 67.8 ml/min Est GFR ( Amer) 79.4 Est GFR (Non-Af Amer) 68.5 BUN/Creatinine Ratio 30.9 H (10-20) Glucose 143 H (70-99) mg/dl POC Glucose 195 H (70-99) mg/dl Calcium 9.4 (8.5-10.1) mg/dl Magnesium 2.2 (1.8-2.4) mg/dl Total Bilirubin (0.2-1) mg/dl AST (15-37) U/L ALT (12-78) U/L Alkaline Phosphatase (45-117) U/L Total Protein (6.4-8.2) gm/dl Albumin (3.4-5.0) gm/dl Globulin (2.5-4.0) gm/dl Albumin/Globulin Ratio (0.9-2) TSH (0.300-4.500) uIu/ml Urine Color Urine Appearance (Clear) Urine pH (4.5-7.5) Ur Specific [place] (1.000-1.030) Urine Protein (Negative) Urine Glucose (UA) (Negative) Urine Ketones (Negative) Urine Blood (Negative) Urine Nitrite (Negative) Urine Bilirubin (Negative) Urine Urobilinogen (Negative) Ur Leukocyte Esterase (Negative) Urine WBC (Auto) (0-5) /hpf Urine RBC (Auto) (0-4) /hpf U Hyaline Cast (Auto) (0-5) /lpf U Epithel Cells (Auto) (0-5) /lpf Urine Bacteria (Auto) (Negative) 06/19/20 06/19/20 06/19/20 Range/Units 07:32 11:33 16:32 WBC (4.8-10.8) K/uL RBC (4.7-6.1) M/uL Hgb (14.0-18.0) g/dL Hct (42-52) % MCV (80-100) fL MCH (25-34) pg MCHC (32-36) g/dL RDW Std Deviation (36.4-46.3) fL RDW Coeff of Naomi (11.5-14.5) % Plt Count (130-400) K/uL MPV (7.4-10.4) fL Immature Gran % (Auto) % Neut % (Auto) % Lymph % (Auto) % [place] % (Auto) % Eos % (Auto) % Baso % (Auto) % Neut # (Auto) (1.4-6.5) K/uL Lymph # (Auto) (1.2-3.4) K/uL [place] # (Auto) (0.11-0.59) K/uL Eos # (Auto) (0-0.5) K/uL Baso # (Auto) (0-0.2) K/uL Immature Gran # (Auto) (0.00-0.02) K/uL Hypochromasia Microcytosis PT (9.0-12.0) Seconds INR (0.9-1.1) Sodium (136-145) mmol/L Potassium (3.5-5.1) mmol/L Chloride (98-107) mmol/L Carbon Dioxide (21-32) mmol/L Anion Gap (3-11) BUN (7-18) mg/dl Creatinine (0.6-1.4) mg/dl Est Cr Clr Drug Dosing ml/min Est GFR ( Amer) Est GFR (Non-Af Amer) BUN/Creatinine Ratio (10-20) Glucose (70-99) mg/dl POC Glucose 188 H 231 H 150 H (70-99) mg/dl Calcium (8.5-10.1) mg/dl Magnesium (1.8-2.4) mg/dl Total Bilirubin (0.2-1) mg/dl AST (15-37) U/L ALT (12-78) U/L Alkaline Phosphatase (45-117) U/L Total Protein (6.4-8.2) gm/dl Albumin (3.4-5.0) gm/dl Globulin (2.5-4.0) gm/dl Albumin/Globulin Ratio (0.9-2) TSH (0.300-4.500) uIu/ml Urine Color Urine Appearance (Clear) Urine pH (4.5-7.5) Ur Specific [place] (1.000-1.030) Urine Protein (Negative) Urine Glucose (UA) (Negative) Urine Ketones (Negative) Urine Blood (Negative) Urine Nitrite (Negative) Urine Bilirubin (Negative) Urine Urobilinogen (Negative) Ur Leukocyte Esterase (Negative) Urine WBC (Auto) (0-5) /hpf Urine RBC (Auto) (0-4) /hpf U Hyaline Cast (Auto) (0-5) /lpf U Epithel Cells (Auto) (0-5) /lpf Urine Bacteria (Auto) (Negative) Imaging Data Radiologist's Impression: [place], [place] [phone] XRay Report Patient: AVINASH LEE Admit Date: 06/18/20 MR#: [id number] Address1: [address] [place] [address] [address] Acct ID:[id number] Address2: Date: 1945 [facility] Zip: [place] [address] Age: 75 Location: ED Sex: M Room/Bed: Att Phy: Diagnosis: GLF, Hit head +blood thinners [place] Phy: Mohan Perry MD Service Date: 06/18/20 [facility] Phy: Interpreting Phy: Richar Murphy Admit Phy: Ordering Phy: Zhang Walker MD cc: ~ XR chest 1V portable HISTORY: 75 years-old Male weakness acute weakness COMPARISON: Chest radiograph 04/15/2020 TECHNIQUE: Portable AP view of the chest FINDINGS: Cardiac silhouette is enlarged. Pulmonary vascular congestion with mild interstitial coarsening. No pneumothorax, pleural effusion or lobar airspace consolidation. Mild bibasilar densities favoring atelectasis. Healed remote left-sided rib fractures. Degenerative changes of the shoulders and spine. IMPRESSION: 1. Cardiomegaly with pulmonary vascular congestion. 2. Mild bibasilar densities favoring atelectasis. ACT 112: Negative or not required by law. The above report was generated using voice recognition software. It may contain grammatical, syntax or spelling errors. Electronically signed by: Iván Murphy M.D. 06/18/2020 7:47 AM Dictated: 06/18/20744 Transcribed: 06/18/20744 ECG Data Attestation: I personally reviewed and interpreted this ECG as follows: Indication: + weakness Rate (beats per minute): 76 Rhythm: + atrial flutter (variable AV block) ECG [place]: + Left axis deviation ECG ST segments: no ST depression and no ST elevation ECG Findings: + Q waves (Anterolateral) Comparison ECG Date: from (04/16/2020) Change: the following changes noted (A flutter has replaced NSR ) MDM Narrative Patient was seen and evaluated as above in room A10. Review was performed of nursing notes and vital signs. I did review pertinent previous visits and patient history. After obtaining a thorough history and physical examination the above work up was performed. This 75-year-old male who presents emergency department complaining of multiple falls. Patient is also complaining of left knee pain. X-rays do not show any evidence of fracture dislocation or subluxation. A lengthy discussion of the p atient with both the patient as well as his daughter. The patient's daughter is concerned enough that she does not want the patient sent home. She is also concerned about hubbard and does not want him sent to a rehabilitation center. They are both requesting that the patient be admitted to the hospital. I did discuss the case with the hospitalist service who did agreed admit the patient. The patient was evaluated during the global COVID-19 pandemic, and that diagnosis was suspected/considered upon their initial presentation. Their evaluation, treatment and testing was consistent with current guidelines for patients who present with complaints or symptoms that may be related to COVID-19 . Impression & Plan Fall, Head injury, Anterior knee pain Discharge Plan Visit Data Chief Complaint: Fall Stated Complaint: GLF, Hit head +blood thinners ED Provider: Zhang Walker Discharge Problem: Fall, Head injury, Anterior knee pain Patient Disposition: Admitted As Inpatient Discharge Instructions Interventions: ED Discharge Assessment Last Done: 06/18/20 12:53 Discharge Problem: Fall Qualifiers: Encounter type: initial encounter Qualified Code(s): W19.XXXA - Unspecified fall, initial encounter Head injury Qualifiers: Encounter type: initial encounter Qualified Code(s): S09.90XA - Unspecified injury of head, initial encounter Anterior knee pain Qualifiers: Laterality: left Qualified Code(s): M25.562 - Pain in left knee
[2020-06-18 08:08] LABS: Basophils # (auto) 0.05 K/uL (0-0.2); Basophils % (auto) 0.4 %; Eosinophils # (auto) 0.16 K/uL (0-0.5); Eosinophils % (auto) 1.3 %; Hematocrit (blood only) 38.8 % (42-52); Hemoglobin 11.4 g/dL (14.0-18.0); Immature Granulocytes # (auto) 0.05 K/uL (0.00-0.02); Immature Granulocytes % (auto) 0.4 %; Lymphocytes # (auto) 2.22 K/uL (1.2-3.4); Lymphocytes % (auto) 17.9 %; Mean Corpuscular Hemoglobin 21.7 pg (25-34); Mean Corpuscular Hgb Conc 29.4 g/dL (32-36); Mean Corpuscular Volume 73.9 fL (80-100); Mean Platelet Volume 10.7 fL (7.4-10.4); Monocytes # (auto) 1.05 K/uL (0.11-0.59); Monocytes % (auto) 8.5 %; Neutrophils # (auto) 8.87 K/uL (1.4-6.5); Neutrophils % (auto) 71.5 %; Platelet Count 275 K/uL (130-400); RDW Coefficient of Variation 18.4 % (11.5-14.5); RDW Standard Deviation 49.4 fL (36.4-46.3); Red Blood Count 5.25 M/uL (4.7-6.1)
[2020-06-18 08:19] LABS: INR 1.1 (0.9-1.1); Prothrombin Time 11.6 Seconds (9.0-12.0)
[2020-06-18 08:21] LABS: Appearance Urine Clear (Clear); Bacteria Urine Automated Negative (Negative); Bilirubin Urine Negative (Negative); Blood Urine Negative (Negative); Cast Urine Automated 0 /lpf (0-5); Color Urine Yellow; Epithelial Cell Urine Auto 0-5 /lpf (0-5); Glucose Urine UA 3+ (Negative); Ketones Urine Negative (Negative); Leukocyte Esterase Urine Negative (Negative); Nitrite Urine Negative (Negative); Protein Urine 1+ (Negative); RBC Urine Automated 0-4 /hpf (0-4); Specific Gravity Urine 1.022 (1.000-1.030); Urobilinogen Urine Negative (Negative); WBC Urine Automated 0 /hpf (0-5)
[2020-06-18 08:26] LABS: Hypochromasia Present; Microcytosis Present
[2020-06-18 08:28] LABS: Albumin Level 2.9 gm/dl (3.4-5.0); BUN Creatinine Ratio 30.4 (10-20); Calcium 8.9 mg/dl (8.5-10.1); Creatinine Clr Calc Pharmacy 61.4 ml/min; Est GFR (African American) 66.4; Est GFR (Non-African American) 57.3; Potassium 4.5 mmol/L (3.5-5.1)
[2020-06-18] MEDS ORDERED: HYDROmorphone INJ 0.5 MG/0.5 ML SYR IV PRN (08:36)
[2020-06-18] MEDS ORDERED: ACETAMINOPHEN 1,000 MG/100 ML VIAL IV STA (08:36)
[2020-06-18] MEDS ORDERED: ONDANSETRON INJ 2 MG/ML 2 ML VIAL IV STA (08:36)
[2020-06-18] MEDS ORDERED: HYDROmorphone INJ 0.5 MG/0.5 ML SYR ONE (08:37)
[2020-06-18] MEDS ORDERED: ONDANSETRON INJ 2 MG/ML 2 ML VIAL ONE (08:37)
[2020-06-18] MEDS ORDERED: ACETAMINOPHEN 1000 MG/100 ML IV IV ONE (08:37)
[2020-06-18 08:38] LABS: Albumin Globulin Ratio 0.7 (0.9-2); Bilirubin,Total 0.4 mg/dl (0.2-1); Globulin 4.4 gm/dl (2.5-4.0); Thyroid Stimulating Hormone 1.81 uIu/ml (0.300-4.500); Total Protein 7.3 gm/dl (6.4-8.2)
--- NOTE | 2020-06-18 08:57 | CT Scan Report ---
CT head/brain wo con CLINICAL HISTORY: Head trauma. Patient on anticoagulants. COMPARISON STUDY: 04/13/2020 TECHNIQUE: Axial CT of the brain is performed from the vertex to the skull base. IV contrast was not administered for this examination. A dose lowering technique was utilized adhering to the principles of ALARA. CT DOSE: 1382.10 mGy.cm FINDINGS: No intra or extra-axial mass lesions are visualized. There is no CT evidence of acute cortical infarc tion. There is no evidence of midline shift. There is no acute hemorrhage. No calvarial fractures ar e visualized. There are minimal white matter hypodensities likely on a small vessel basis. There is no evidence of pathologic ventricular dilatation. There is a polypoid mucosal density within the right maxillary sinus. There is opacification of anter ior ethmoid and frontal sinus air cells. There is moderate air present within the soft tissues. This appears to be venous gas likely secondary to an iatrogenic etiology IMPRESSION: 1. No evidence of acute intracranial injury 2. Multiple gas bubbles within soft tissues. This appears to be venous gas likely secondary to an iat rogenic etiology. ACT 112: Negative or not required by law. Electronically signed by: Justin Israel M.D. 06/18/2020 8:55 AM
[2020-06-18] MEDS ORDERED: CLINDAMYCIN 300 MG in DEXTROSE 5% 50 ML IV ONE (10:33)
--- NOTE | 2020-06-18 10:39 | XRay Report ---
XR knee LT 1 or 2V routine HISTORY: 75 years-old Male Pt c/o left knee pain acute left knee pain without reported trauma COMPARISON: 04/07/2018 TECHNIQUE: 2 views of the left knee FINDINGS: Chondrocalcinosis. Mild to moderate medial with moderate to severe lateral and patellofemoral compart ment osteoarthritis. Large corticated ossification adjacent to the inferior patella redemonstrated me asuring 1.6 cm. Soft tissue thickening in the region of the patellar tendon is unchanged. There is mo derate diffuse soft tissue prominence of the knee, most pronounced laterally. Unchanged area of ill-d efined sclerosis involves the proximal metadiaphyseal central medullary space of the proximal tibia, 3.1 cm. Moderate joint effusion. IMPRESSION: 1. Moderate joint effusion is noted with associated soft tissue swelling. No acute fracture or disloc ation. 2. Chondrocalcinosis with tricompartmental osteoarthritis, moderate to severe within the lateral and patellofemoral compartments. ACT 112: Negative or not required by law. The above report was generated using voice recognition software. It may contain grammatical, syntax o r spelling errors. Electronically signed by: Iván Murphy M.D. 06/18/2020 10:37 AM
[2020-06-18] MEDS ORDERED: DAPTOMYCIN CONSULT ACTIVE PRN (10:55)
[2020-06-18] MEDS ORDERED: DAPTOmycin 500 MG in SYRINGE 0 ML IV ONE (10:55)
--- NOTE | 2020-06-18 11:17 | History & Physical Report ---
Date of Service June 18, 2020 Assessment & Plan (1) Ambulatory dysfunction: (2) Cellulitis: (3) Diabetic ulcer of toe of left foot associated with type 2 diabetes mellitus, limited to breakdown of skin: (4) Diabetic ulcer of toe of right foot associated with type 2 diabetes mellitus, limited to breakdown of skin: (5) Venous ulcers of both lower extremities: This is a 75-year-old male who has significant past medical history of T2DM, HTN, HLD, PAF anticoagulated on Eliquis, CKD stage III, PVD, BPH, neuropathy, bilateral foot drop, amatory dysfunction secondary to spinal stenosis, multiple wounds including pressure wounds to bilateral buttock and venous wounds to lower extremities following wound clinic, Gmxlxth-Pkzbi-Mdrlw, tobacco abuse who presents to ED secondary to frequent falls and weakness x 2 weeks. admit to tele consult wound care IV antibiotics Daptomycin and Cefepime for cellulitis of multiple lower extremity wounds hold Statin while on Daptomycin PT/OT consult case management (6) Paroxysmal atrial fibrillation: Rate controlled on metoprolol and digoxin Continue Eliquis for thrombotic control (7) Hypertension: Blood pressure controlled, 122/64 Continue metoprolol and ramipril Patient is on torsemide 20 mg twice weekly (8) CKD (chronic kidney disease), stage III: baseline cr 1.1 bun/cr 38/ 1.24 Monitor renal function (9) Diabetes mellitus type 2 with complications: Uncontrolled, last A1c 8.2 on 05/16/2020 Hold metformin, glimepiride and Jardiance Place on Lantus/NovoLog per protocol Recommend tighter control of BSG in setting of multiple wounds (10) Effusion, left knee: Traumatic, secondary to fall Ice as needed He is already on high-dose narcotic PT OT (11) Peripheral arterial disease: Patient recently seen and evaluated by vascular medicine Patient with mixed vascular disease. Superficial venous disease amenable to endovenous ablation and recommend bilateral GSV at some point CT ANGIO recommended as outpatient Duplex consistent with bilateral SFA stenosis and right MEG occlusion on Statin, eliquis as outpt (12) COPD (chronic obstructive pulmonary disease): no acute exac Continue Advair and as needed albuterol Advise smoking cessation (13) Zkxnpdb-Qakpr-Kqxub disease: (14) Tobacco use: Encourage smoking cessation Nicotine patch ordered (15) Opioid dependence: Patient on fentanyl patch 37 mcg every 72 hours along with OxyIR Per [facility] patient prescribed oxycodone 10 mg, 1.5 tabs every 6 hours as needed hold pain meds for sedation and will reduce oxy IR to 10mg q6h prn Pt very drowsy and feel like in setting of excess pain meds (16) DVT prophylaxis: eliquis Disposition: Admit to telemetry Follow-up: PCP Dr. Rodney Patient was seen and examined in collaboration with Dr. Oh, please see addendum History of Present Illness Chief Complaint: Frequent falls and weakness x 2 weeks. Primary Care Provider: Mohan Perry MD This is a 75-year-old male who has significant past medical history of T2DM, HTN, HLD, PAF anticoagulated on Eliquis, CKD stage III, PVD, BPH, neuropathy, bilateral foot drop, amatory dysfunction secondary to spinal stenosis, multiple wounds including pressure wounds to bilateral buttock and venous wounds to lower extremities following wound clinic, Xicyxfp-Ylpzc-Ylnrr, tobacco abuse who presents to ED secondary to frequent falls and weakness x 2 weeks. He complains of being very tired and and sleeping well at night. He is mostly wheel chair bound in a motorized scooter. Feels appetite is okay. He denies f/c/s,SOB, Chest pain, abd pain, n/v/d, TELLO, change in bowel or urinary habits. He has a chronic productive cough 2/2 to smoking, described as white and occasionally yellow. Cough is not different than usual. He is moving bowels daily or every other day. Previously had difficulty with narcotic induced constipation. Today he states he was up in the chair and he fell asleep in chair and fell forward. This is the first time this happened. He feels he hit his head and has abrasion to face. Last fall prior to today was 1 week ago. Pt is on high dose narcotics wit Fentanyl patch 37.5mcg Q72hr along with oxycodone 15mg po q6hr prn. Pt states he sometimes takes 20mg. Pt has multiple wounds to buttock and lower ext. He feels buttock wounds are improving but leg/feet wounds are worsening. In ED patient remained hemodynamically stable. Lab work notable for elevated WBC 12.40k, H&H 11.4 and 38.8, platelet 275, sodium 135, BUN 38, creatinine 1.24, glucose 178, albumin 2.9, TSH 1.8. The x-ray reveals left knee moderate effusion, chest x-ray consistent with bibasilar atelectasis and pulmonary vascular congestion. Head CT without acute pathology but does reveal soft tissue gas bubbles likely iatrogenic. Also of note is polypoid mucosal density in right maxillary sinus. In ED patient received IVF, IV Dilaudid, antiemetics and IV daptomycin due to concern for cellulitis. It was felt patient would benefit from rehab although after discussion with patient and family per ED provider they wish for inpatient evaluation due to concern for COVID and SNF. Daughter is from [place] and will be coming up within the next couple days. Allergies Allergy/AdvReac Type Severity Reaction Status Date / Time Penicillins Allergy Intermediate RASH Verified 06/18/20 07:29 sulfamethoxazole AdvReac Mild arf, Verified 06/18/20 07:29 [From Bactrim] hyperkalemia trimethoprim [From Bactrim] AdvReac Mild arf, Verified 06/18/20 07:29 hyperkalemia Home Medications Home Medications Medication Instructions Recorded Confirmed Type Eliquis 5 mg PO BID 01/06/19 06/18/20 History Jardiance 10 mg PO QAM 01/06/19 06/18/20 History albuterol sulfate [Ventolin HFA] 2 puff INHALATION Q6H PRN 01/06/19 06/18/20 History ascorbic acid (vitamin C) [Vitamin 1,000 mg PO QAM 01/06/19 06/18/20 History C] digoxin [Digox] 125 mcg PO DAILY@1600 01/06/19 06/18/20 History finasteride 5 mg PO QDD 01/06/19 06/18/20 History glimepiride 4 mg PO QAM 01/06/19 06/18/20 History metformin 1,000 mg PO BID 01/06/19 06/18/20 History metoprolol succinate 12.5 mg PO BID 01/06/19 06/18/20 History omeprazole 40 mg PO QAM 01/06/19 06/18/20 History B-complex with vitamin C [Super B 1 tab PO QPM 07/19/19 06/18/20 History Complex-Vitamin C] fluticasone propion-salmeterol 1 inh INHALATION BID 07/19/19 06/18/20 History [Advair Diskus] ramipril 5 mg PO BID 07/19/19 06/18/20 History diclofenac sodium 2 g TOPICAL BID 09/27/19 06/18/20 History oxycodone 15 mg PO Q6H PRN MDD 60mg/day 09/27/19 06/18/20 History polyethylene glycol 3350 [Miralax] 17 g PO QAM 09/27/19 06/18/20 History multivitamin 1 tab PO QAM 10/10/19 06/18/20 History fenofibrate nanocrystallized 48 mg PO HS 10/29/19 06/18/20 History [Tricor] pravastatin [Pravachol] 20 mg PO HS 10/29/19 06/18/20 History lidocaine 1 patch TOPICAL UD PRN 11/05/19 06/18/20 History torsemide 20 mg PO TUTH 11/05/19 06/18/20 History celecoxib 200 mg capsule 200 mg PO DAILY PRN 11/15/19 06/18/20 History Calmoseptine 1 applic TOPICAL DAILY PRN 04/13/20 06/18/20 History baclofen 10 mg PO HS 04/13/20 06/18/20 History cholecalciferol (vitamin D3) 2,000 units PO QPM 04/13/20 06/18/20 History fentanyl 37.5 mcg TRANSDERMAL Q72H 04/13/20 06/18/20 History gabapentin [Neurontin] 100 mg PO BID 04/13/20 06/18/20 History gabapentin [Neurontin] 300 mg PO HS 04/13/20 06/18/20 History magnesium oxide 400 mg PO PM 04/13/20 06/18/20 History acetaminophen [Tylenol Extra 1,000 mg PO TID PRN 06/18/20 06/18/20 History Strength] nicotine 1 patch TRANSDERMAL DAILY 06/18/20 06/18/20 History zinc 25 mg PO Q OTHER DAY 06/18/20 06/18/20 History Past Med/Surg History Medical History Acquired claw toe of right foot Acquired deviated nasal septum Acquired hallux valgus of right foot Atrial fibrillation Atrial flutter Choledocholithiasis Chronic sinusitis CKD (chronic kidney disease), stage III CMT (Fsvdoyi-Nqpxo-Kjjer disease) COPD (chronic obstructive pulmonary disease) Degenerative disc disease 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 Diabetic foot ulcer associated with type 2 diabetes mellitus Diabetic peripheral neuropathy associated with type 2 diabetes mellitus Gastroesophageal reflux disease Hallux valgus (acquired), left foot History of infection with vancomycin resistant Enterococcus (VRE) Hyperlipidemia Hypertension Hypertensive heart disease Hypertrophy of nasal turbinates Left foot drop Perirectal abscess Pneumonia Right foot drop Spinal stenosis, lumbar region with neurogenic claudication Surgical History H/O reduction of closed fracture nasal bone fracture Hx of tonsillectomy S/P cataract extraction S/P cervical spinal fusion S/P foot surgery, right Status post cholecystectomy Status post left foot surgery Family History Father Diabetes Mother Hypertension Other COPD (chronic obstructive pulmonary disease) Coronary heart disease Hearing loss Heart disease No family history of adverse response to anesthesia No family history of bleeding disorder Social History Smoking Status: Current every day smoker Tobacco Type: Cigarettes packs per day: 0.5; Cigarettes Per Day: 1 every two weeks; Second Hand Exposure: No; Hx Alcohol Use: No Hx Substance Use: No Preferred Language: Grenadian Communication Ability: Effective Visual Impairment: Limited Hearing Ability: Hard of Hearing Supply Assistant Required: No Beliefs That Will Affect Care: None marital status: Current Living Situation: Alone Current Living Situation Comment: "55 and older community" current occupational status: retired How many Children do You have: 2 Feels Safe at Home: Yes Assistive Devices: Walker Review of Systems Review of Systems: All systems reviewed & are unremarkable except as noted in HPI & below Physical Exam Physical Exam: Constitutional: Elderly appearing, male, sitting up in bed, very drowsy, arouses to verbal stimulation but falls asleep easily, WD/WN, vitals as above, obese, answers questions appropriately Head: Normocephalic, abrasion inferior to left eye Eyes: PERRL, conjunctivae normal, anicteric sclerae ENMT: external ear and nose normal, oropharynx normal, edentulous Neck: trachea midline, no thyromegaly normal visual inspection Respiratory: normal respiratory effort, lungs clear to auscultation, bibasilar rhonchi, no wheeze or rales. Normal insp/exp effort, no accessory muscle use Cardiovascular: Irregular rate, irregular rhythm, normal S1-S2, no edema vessels: no JVD or carotid bruit Chest: normal inspection of chest Abdomen: Protuberant abdomen, normal bowel sounds, soft, nontender, no hepatosplenomegaly Musculoskeletal: Patient with flexure contractures to bilateral hands, Skin: warm and dry normal turgor, bilateral lower extremities with wound dressings in place, erythema, multiple wounds noted to feet Neurologic: PERRL, EOMI, accommodation nl, no face palsy, no dysarthria CN's II-XI intact bilaterally and moves all extremities Psychiatric: A+Ox3, drowsy, euthymic affect Lymphatic: no cervical or axillary lymphadenopathy : deferred Results & Data Results & Data ([facility]) Vital Signs (Past 12 Hours) Vital Signs Temp Pulse Pulse Resp BP BP Pulse Ox 06/18/20 11:04 75 16 122/64 90 06/18/20 09:41 75 16 120/62 89 L 06/18/20 08:42 76 20 131/76 06/18/20 07:15 91 06/18/20 07:06 36.7 C 76 16 141/77 H 93 Laboratory Results Short CBC 06/18/20 Range/Units 07:45 WBC 12.40 H (4.8-10.8) K/uL Hgb 11.4 L (14.0-18.0) g/dL Hct 38.8 L (42-52) % Plt Count 275 (130-400) K/uL BMP 06/18/20 07:45 Sodium 135 L Potassium 4.5 Chloride 99 Carbon Dioxide 28 BUN 38 H Creatinine 1.24 Glucose 178 H Calcium 8.9 Liver Function 06/18/20 Range/Units 07:45 Total Bilirubin 0.4 (0.2-1) mg/dl AST 30 (15-37) U/L ALT 31 (12-78) U/L Alkaline Phosphatase 112 (45-117) U/L Albumin 2.9 L (3.4-5.0) gm/dl Urine 06/18/20 Range/Units 08:05 Urine Color Yellow Urine Appearance Clear (Clear) Urine pH 5.0 (4.5-7.5) Ur Specific [place] 1.022 (1.000-1.030) Urine Protein 1+ H (Negative) Urine Glucose (UA) 3+ H (Negative) Diagnostic Findings Knee Xray: IMPRESSION: 1. Moderate joint effusion is noted with associated soft tissue swelling. No acute fracture or dislocation. 2. Chondrocalcinosis with tricompartmental osteoarthritis, moderate to severe within the lateral and patellofemoral compartments. CXR: IMPRESSION: 1. Cardiomegaly with pulmonary vascular congestion. 2. Mild bibasilar densities favoring atelectasis. Head CT: IMPRESSION: 1. No evidence of acute intracranial injury 2. Multiple gas bubbles within soft tissues. This appears to be venous gas likely secondary to an iatrogenic etiology. Medications Administered Discontinued Medications Acetaminophen (Acetaminophen 1000 Mg/100 Ml Iv) Confirm Administered Dose 1,000 mg IV .STK-MED ONE Stop: 06/18/20 08:38 Last Admin: 06/18/20 08:40 Dose: 1,000 mg Documented by: [id number] Hydromorphone HCl (Hydromorphone Inj 0.5 Mg/0.5 Ml Syr) Confirm Administered Dose 0.5 mg .ROUTE .STK-MED ONE Stop: 06/18/20 08:38 Last Admin: 06/18/20 08:40 Dose: 0.5 mg Documented by: [id number] Sodium Chloride (Nss) 500 mls @ 999 mls/hr IV .Q31M BETHANY Stop: 06/18/20 07:45 Last Infusion: 06/18/20 09:10 Dose: 0 mls/hr Documented by: [id number] Admin: 06/18/20 08:35 Dose: 999 mls/hr Documented by: [id number] Acetaminophen (Ofirmev) 1,000 mg in 100 mls @ 400 mls/hr IV NOW STA Stop: 06/18/20 08:50 Last Admin: 06/18/20 08:41 Dose: Not Given Documented by: [id number] Ondansetron HCl (Ondansetron Inj 2 Mg/Ml 2 Ml Vial) 4 mg IV NOW STA Stop: 06/18/20 08:37 Last Admin: 06/18/20 08:41 Dose: Not Given Documented by: [id number] Ondansetron HCl (Ondansetron Inj 2 Mg/Ml 2 Ml Vial) Confirm Administered Dose 4 mg .ROUTE .[employer]-MED ONE Stop: 06/18/20 08:38 Last Admin: 06/18/20 08:40 Dose: 4 mg Documented by: [id number] ECG Rate (beats per minute): 76 Rhythm: atrial flutter Code Status & VTE Plan Code Status Full Code VTE Prophylaxis Plan VTE Prophylaxis will be ordered: No Reason for no VTE drug order: Contraindicated (Pt is on eliquis) Supervising Physician Co-Signing Physician Notes Mr. Cherry is a 75-year-old male, with history of DM type II, paroxysmal A. fib, on Eliquis, history of PAD, tobacco use, sacral cellulitis, spinal stenosis, history of wounds for which he follows with wound care, lower extremity cellulitis and history of falls. He now presents after falling asleep while in his chair, and falling forward. Reportedly he is also in the process of getting into rehab. CT head was negative in ED for any acute changes. He also complains of right knee pain, x-ray was obtained in the ED, did not show any fractures but some effusion noted. Patient has history of multiple admissions, he has chronic pain, and uses fentanyl and oxycodone. He has been following with wound care. Per their notes, he was seen by vascular as well and identified PAD, 40 to 74% left [employer] stenosis and distal SFA stenosis. He was also recommended to follow-up with Dr. Conde for his spinal stenosis, patient states that he was not a good candidate for surgery. Currently he has no complaints except for chronic pain, now more recent left knee pain. He denies any fevers, chills, increased cough or sputum production. Patient says that he has chronic cough as he is a smoker, he occasionally has sputum production but denies any change in his sputum. Denies any abdominal p ain, or constipation. During one of his admissions, he was found to have opioid-induced constipation. Denies any nausea vomiting diarrhea. Pt is lying in bed, comfortable, and in no acute distress however he is quite somnolent. He is answering questions appropriately though. He has fentanyl patch placed on his left arm, dated for June 15, 2020. He has mild rhonchi noted on lung exam especially at bases. No wheezing noted. Heart sounds seem fairly regular. Abdomen is soft, obese, somewhat distended, nontender to palpation. Patient is able to move his upper and lower extremities, some contractures are noted. There is erythema and excoriations on his lower extremities, some of them are covered with dressings. He has small excoriation on his left upper cheek and forehead. Skin is otherwise warm and dry. Today WBC is slightly elevated at 12.4K, hemoglobin is lower at 11.4 however stable compared to previous labs. CT head was negative in the ED, chest x-ray showed possible vascular congestion/atelectasis. He received Dilaudid and Ofirmev in the emergency room as well as daptomycin. Will add cefepime to cover for cellulitis of lower extremities, will consult wound care, will also consult PT OT and discharge planning for rehab. Recommend spirometer for atelectasis, daily weights. Susan Oh MD
[2020-06-18] MEDS ORDERED: GLUCOSE 10 TABS/TUBE PO PRN (13:23)
[2020-06-18] MEDS ORDERED: ALBUTEROL HFA 8 GM INHALER INH PRN (13:23)
[2020-06-18] MEDS ORDERED: ONDANSETRON INJ 2 MG/ML 2 ML VIAL IV PRN (13:23)
[2020-06-18] MEDS ORDERED: CeleBREX 200 MG CAP PO PRN (13:23)
[2020-06-18] MEDS ORDERED: DEXTROSE 50% 50 ML SYRINGE IV PRN (13:23)
[2020-06-18] MEDS ORDERED: GLUCOSE 40% GEL 15 GM TUBE PO PRN (13:23)
[2020-06-18] MEDS ORDERED: ALUMINUM/MAGNESIUM SUSP 30 ML UDC PO PRN (13:23)
[2020-06-18] MEDS ORDERED: NON-FORMULARY MEDICATION (Fentanyl 37.5 MCG) TD SCH (13:23)
[2020-06-18] MEDS ORDERED: GLUCAGON FOR INJ 1 MG VIAL SQ PRN (13:23)
[2020-06-18] MEDS ORDERED: POLYETHYLENE (MIRALAX) 17 GM PACK PO PRN (13:23)
[2020-06-18] MEDS ORDERED: MAGNESIUM HYDROXIDE SUSP 30 ML UDC PO PRN (13:23)
[2020-06-18] MEDS ORDERED: CARBOHYDRATES FOR HYPOGLYCEMIA PO PRN (13:23)
[2020-06-18] MEDS ORDERED: CEFEPIME CONSULT ACTIVE PRN (13:23)
[2020-06-18] MEDS: OXYCODONE HCL IR 5 MG TAB (IMMEDIATE RELEASE) PO PRN ×2 (14:36→23:33)
[2020-06-18] MEDS: fentaNYL 25 MCG/HR TDSY TD SCH (15:13)
[2020-06-18] MEDS: fentaNYL 12 MCG/HR TDSY TD SCH (15:13)
[2020-06-18] MEDS: NICOTINE 21 MG/24 HR TDSY TD SCH (15:16)
[2020-06-18] MEDS: CEFEPIME 2,000 MG in SYRINGE 0 ML IV SCH ×2 (15:38→23:30)
[2020-06-18] MEDS: NEOMYCIN/POLYMYX/BACITR OINT 15 GM TUBE EXT SCH ×2 (15:39→20:21)
[2020-06-18] MEDS: CHECK FENTANYL PATCH PLACEMENT SCH ×2 (15:39)
[2020-06-18] MEDS: FINASTERIDE 5 MG TAB PO SCH (15:40)
[2020-06-18] MEDS: DIGOXIN 0.125 MG TAB PO SCH (15:40)
[2020-06-18] MEDS: INSULIN ASPART 100 UNITS/ML 3 ML PEN SC SCH ×3 (15:53→20:26)
[2020-06-18] MEDS: ALBUT/IPRATROP 3MG/0.5MG NEB 3 ML VIAL NEB PRN ×2 (17:28→19:21)
[2020-06-18] MEDS: GABAPENTIN 300 MG CAP PO SCH (20:19)
[2020-06-18] MEDS: METOPROLOL SUCC 25MG EXT REL TAB PO SCH (20:20)
[2020-06-18] MEDS: CHOLECALCIFEROL 1,000 UNITS 25 MCG TAB PO SCH (20:20)
[2020-06-18] MEDS: VITAMIN B COMPLEX TAB PO SCH (20:20)
[2020-06-18] MEDS: ENALAPRIL MALEATE 10 MG TAB PO SCH (20:21)
[2020-06-18] MEDS: FENOFIBRATE NANOCRYSTALLIZED 48 MG TABLET PO SCH (20:21)
[2020-06-18] MEDS: BACLOFEN 10 MG TAB PO SCH (20:21)
[2020-06-18] MEDS: DICLOFENAC SOD 1% GEL 100 GM TUBE EXT SCH (20:22)
[2020-06-18] MEDS: INSULIN GLARGINE SOLOSTAR 100 UNITS/ML 3 ML PEN SC SCH (20:25)
[2020-06-18] MEDS ORDERED: GABAPENTIN 100 MG CAP PO SCH (21:00)
[2020-06-18] MEDS: MAGNESIUM OXIDE 400 MG TAB PO SCH ×2 (21:23→23:33)
[2020-06-19] MEDS: CHECK FENTANYL PATCH PLACEMENT SCH ×6 (00:04→16:00)
[2020-06-19] MEDS: MICONAZOLE NITRATE POWDER 43 GM EXT SCH ×3 (05:46→21:20)
[2020-06-19] MEDS: OXYCODONE HCL IR 5 MG TAB (IMMEDIATE RELEASE) PO PRN ×3 (05:46→18:57)
[2020-06-19] MEDS: ALBUT/IPRATROP 3MG/0.5MG NEB 3 ML VIAL NEB PRN ×3 (05:56→17:08)
[2020-06-19] MEDS: CEFEPIME 2,000 MG in SYRINGE 0 ML IV SCH ×3 (06:22→21:23)
[2020-06-19 07:41] LABS: Basophils # (auto) 0.05 K/uL (0-0.2); Basophils % (auto) 0.4 %; Eosinophils # (auto) 0.12 K/uL (0-0.5); Hematocrit (blood only) 36.9 % (42-52); Hemoglobin 10.8 g/dL (14.0-18.0); Immature Granulocytes # (auto) 0.04 K/uL (0.00-0.02); Immature Granulocytes % (auto) 0.3 %; Lymphocytes # (auto) 1.44 K/uL (1.2-3.4); Lymphocytes % (auto) 12.4 %; Mean Corpuscular Hemoglobin 21.8 pg (25-34); Mean Corpuscular Hgb Conc 29.3 g/dL (32-36); Mean Corpuscular Volume 74.5 fL (80-100); Mean Platelet Volume 10.3 fL (7.4-10.4); Monocytes # (auto) 1.27 K/uL (0.11-0.59); Monocytes % (auto) 10.9 %; Platelet Count 242 K/uL (130-400); RDW Coefficient of Variation 18.5 % (11.5-14.5); RDW Standard Deviation 50.3 fL (36.4-46.3); Red Blood Count 4.95 M/uL (4.7-6.1); White Blood Count 11.62 K/uL (4.8-10.8)
[2020-06-19 08:06] LABS: Hypochromasia Present; Microcytosis Present
[2020-06-19] MEDS: INSULIN ASPART 100 UNITS/ML 3 ML PEN SC SCH ×4 (08:18→21:25)
[2020-06-19] MEDS: INSULIN GLARGINE SOLOSTAR 100 UNITS/ML 3 ML PEN SC SCH ×2 (08:19→21:24)
[2020-06-19] MEDS: DICLOFENAC SOD 1% GEL 100 GM TUBE EXT SCH ×2 (08:19→21:23)
[2020-06-19] MEDS: ASCORBIC ACID 500 MG TAB PO SCH (08:20)
[2020-06-19] MEDS: FLUTICASONE/VILANTEROL 100/25MCG 14 PUFFS/INHALER INH SCH (08:20)
[2020-06-19] MEDS: GABAPENTIN 100 MG CAP PO SCH ×2 (08:20→14:19)
[2020-06-19] MEDS: ZINC SULFATE 220 MG CAPSULE PO SCH (08:21)
[2020-06-19] MEDS: NICOTINE 21 MG/24 HR TDSY TD SCH (08:21)
[2020-06-19] MEDS: ENALAPRIL MALEATE 10 MG TAB PO SCH ×2 (08:21→21:21)
[2020-06-19] MEDS: PANTOprazole 40 MG TAB PO SCH (08:21)
[2020-06-19] MEDS: MULTIVITAMIN TAB PO SCH (08:21)
[2020-06-19] MEDS: METOPROLOL SUCC 25MG EXT REL TAB PO SCH ×2 (08:21→21:22)
[2020-06-19] MEDS: POLYETHYLENE (MIRALAX) 17 GM PACK PO SCH (08:22)
[2020-06-19] MEDS: NEOMYCIN/POLYMYX/BACITR OINT 15 GM TUBE EXT SCH ×2 (08:22→21:24)
[2020-06-19] MEDS: ACETAMINOPHEN 325 MG TAB PO PRN ×2 (08:31→21:53)
[2020-06-19 09:00] LABS: BUN Creatinine Ratio 30.9 (10-20); Calcium 9.4 mg/dl (8.5-10.1); Creatinine Clr Calc Pharmacy 67.8 ml/min; Est GFR (African American) 79.4; Est GFR (Non-African American) 68.5; Magnesium 2.2 mg/dl (1.8-2.4); Potassium 4.6 mmol/L (3.5-5.1)
[2020-06-19] MEDS ORDERED: TORSEMIDE 20 MG TAB PO SCH (09:00)
[2020-06-19] MEDS ORDERED: DAPTOmycin 500 MG in SYRINGE 0 ML IV SCH (11:00)
[2020-06-19] MEDS: DAPTOmycin 475 MG in SYRINGE 0 ML IV SCH (11:26)
--- NOTE | 2020-06-19 14:44 | Hospitalist Progress Note ---
Date of Service June 19, 2020 Assessment & Plan (1) Ambulatory dysfunction: Fatigue S/P Fall Pt said that he has been feeling tired since Gabapentin increased Possible related to meds (fentanyl and gabapenti) CT head showed no acute intracranial abnormality Fall precaution PT/OT eval OT recommended SNF Pt refused to go to rehab (2) Cellulitis: (3) Diabetic ulcer of toe of left foot associated with type 2 diabetes mellitus, limited to breakdown of skin: (4) Diabetic ulcer of toe of right foot associated with type 2 diabetes mellitus, limited to breakdown of skin: (5) Venous ulcers of both lower extremities: This is a 75-year-old male who has significant past medical history of T2DM, HTN, HLD, PAF anticoagulated on Eliquis, CKD stage III, PVD, BPH, neuropathy, bilateral foot drop, amatory dysfunction secondary to spinal stenosis, multiple wounds including pressure wounds to bilateral buttock and venous wounds to lower extremities following wound clinic, Bixlptc-Eaubl-Qmrya, tobacco abuse who presents to ED secondary to frequent falls and weakness x 2 weeks. Starting on Dapto and Cefepime Continue daily wound care Wound care nurse on board Continue monitor (6) Paroxysmal atrial fibrillation: Rate controlled on metoprolol and digoxin Continue Eliquis for thrombotic control (7) Hypertension: BP stable Continue metoprolol and ramipril and torsemide 20 mg twice weekly (8) CKD (chronic kidney disease), stage III: Creatinine on admission 1.2, baseline cr 1.1 Creatinine 1.07 today Monitor renal function (9) Diabetes mellitus type 2 with complications: Uncontrolled DM with last A1c 8.2 on 05/16/2020 Continue to hold metformin, glimepiride and Jardiance Continue Lantus/NovoLog per protocol Recommend tighter control of BSG in setting of multiple wounds (10) Effusion, left knee: Due to recent fall Knee xray showed moderate joint effusion is noted with associated soft tissue swelling. No acute fracture or dislocation. Continue pain control (11) Peripheral arterial disease: Patient recently seen and evaluated by vascular medicine Patient with mixed vascular disease. 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: (14) Tobacco use: Counseling on smoking cessation Continue nicotine patch (15) Opioid dependence: On fentanyl patch 37 mcg every 72 hours along with OxyIR Per epic patient prescribed oxycodone 10 mg, 1.5 tabs every 6 hours as needed, but sometimes he takes 2 tabs Will change oxycodone to 10mg q6h for now Will only continue Gabapentin to 300mg HS and D/C the 100mg BID (16) DVT prophylaxis: On eliquis Disposition Will discharge once medically stable Admission and Anticipated Discharge Date Admission Date: June 18, 2020 Subjective Pt was seen and examined Sitting in chair with no distress with daughter present Spoke to his other daughter today and provided update Pt said that he feels very tired during the day He said that he does not sleep at night due to restlessness Pt said that he fell last week and yesterday He is not interested to go to rehab/SNF due to COVID-19 Denies any chest pain, palpitation, dizziness and SOB Physical Exam Physical Exam: General- No acute distress Head- atraumatic Eyes- PERRL, EOMI, ENT- oropharynx clear Neck- supple, no JVD Lungs- clear to auscultation Heart- regular rhythm; no murmur Abdomen- normal bowel sounds, soft, nontender Extremities- no calf tenderness, bilateral lower extremities with wound dressings in place, erythema, multiple wounds noted to feet Neuro- alert, oriented x 3; PERRL, EOMI; no facial palsy; no dysarthria Skin- warm & dry Results & Data Results & Data ([facility]) Vital Signs (Past 12 Hours) Vital Signs Temp Pulse Resp BP Pulse Ox 06/19/20 11:38 36.9 C 83 18 125/63 94 06/19/20 08:53 20 95 06/19/20 07:48 36.8 C 64 18 161/91 H 96 06/19/20 07:46 37.1 C 75 18 118/72 98 06/19/20 05:57 70 18 97 06/19/20 04:05 36.9 C 79 22 103/55 L 97
[2020-06-19] MEDS: DIGOXIN 0.125 MG TAB PO SCH (15:57)
[2020-06-19] MEDS: FINASTERIDE 5 MG TAB PO SCH (15:57)
[2020-06-19] MEDS: FENOFIBRATE NANOCRYSTALLIZED 48 MG TABLET PO SCH (21:20)
[2020-06-19] MEDS: BACLOFEN 10 MG TAB PO SCH (21:20)
[2020-06-19] MEDS: CHOLECALCIFEROL 1,000 UNITS 25 MCG TAB PO SCH (21:21)
[2020-06-19] MEDS: MAGNESIUM OXIDE 400 MG TAB PO SCH (21:21)
[2020-06-19] MEDS: VITAMIN B COMPLEX TAB PO SCH (21:22)
[2020-06-19] MEDS: GABAPENTIN 300 MG CAP PO SCH (21:22)
[2020-06-20] MEDS: OXYCODONE HCL IR 5 MG TAB (IMMEDIATE RELEASE) PO PRN ×3 (00:51→21:40)
[2020-06-20] MEDS: CHECK FENTANYL PATCH PLACEMENT SCH ×6 (00:52→15:04)
[2020-06-20] MEDS: ALBUT/IPRATROP 3MG/0.5MG NEB 3 ML VIAL NEB PRN ×2 (03:42→19:43)
[2020-06-20] MEDS: CEFEPIME 2,000 MG in SYRINGE 0 ML IV SCH ×2 (05:42→14:12)
[2020-06-20] MEDS: FLUTICASONE/VILANTEROL 100/25MCG 14 PUFFS/INHALER INH SCH (07:40)
[2020-06-20] MEDS: POLYETHYLENE (MIRALAX) 17 GM PACK PO SCH (07:40)
[2020-06-20] MEDS: MICONAZOLE NITRATE POWDER 43 GM EXT SCH ×2 (07:40→21:49)
[2020-06-20] MEDS: NEOMYCIN/POLYMYX/BACITR OINT 15 GM TUBE EXT SCH ×2 (07:43→21:42)
[2020-06-20] MEDS: DICLOFENAC SOD 1% GEL 100 GM TUBE EXT SCH ×2 (07:44→21:47)
[2020-06-20] MEDS: NICOTINE 21 MG/24 HR TDSY TD SCH (07:44)
[2020-06-20] MEDS: METOPROLOL SUCC 25MG EXT REL TAB PO SCH ×2 (07:47→21:43)
[2020-06-20] MEDS: PANTOprazole 40 MG TAB PO SCH (07:47)
[2020-06-20] MEDS: ASCORBIC ACID 500 MG TAB PO SCH (07:47)
[2020-06-20] MEDS: MULTIVITAMIN TAB PO SCH (07:47)
[2020-06-20] MEDS: ENALAPRIL MALEATE 10 MG TAB PO SCH ×2 (07:48→21:44)
[2020-06-20] MEDS: INSULIN GLARGINE SOLOSTAR 100 UNITS/ML 3 ML PEN SC SCH ×2 (07:50→21:26)
[2020-06-20] MEDS: INSULIN ASPART 100 UNITS/ML 3 ML PEN SC SCH ×4 (08:02→21:26)
[2020-06-20] MEDS: DAPTOmycin 475 MG in SYRINGE 0 ML IV SCH (10:06)
[2020-06-20] MEDS ORDERED: Nursing to Pharmacy Communication SCH (11:00)
--- NOTE | 2020-06-20 12:03 | Electrocardiogram Report ---
Test Reason : Blood Pressure : / mmHG Vent. Rate : 076 BPM Atrial Rate : 234 BPM P-R Int : 000 ms QRS Dur : 118 ms QT Int : 372 ms P-R-T Axes : 000 -41 094 degrees QTc Int : 418 ms Atrial flutter with variable A-V block Left axis deviation Low voltage QRS Possible Anterolateral infarct (cited on or before 06-JAN-2019) Abnormal ECG When compared with ECG of 16-APR-2020 00:00, No significant change Confirmed by Alber Kennedy ([id number]) on 06/20/2020 12:02:55 PM Referred By: REFERRED SELF Confirmed By:Alber Kennedy
[2020-06-20] MEDS ORDERED: ACETAMINOPHEN 1,000 MG/100 ML VIAL IV ONE (14:48)
--- NOTE | 2020-06-20 15:00 | Hospitalist Progress Note ---
Date of Service June 20, 2020 Assessment & Plan (1) Ambulatory dysfunction: Fatigue S/P Fall Pt said that he has been feeling tired since Gabapentin increased Possible related to meds (fentanyl and gabapenti) CT head showed no acute intracranial abnormality Fall precaution PT/OT eval OT recommended SNF Pt refused to go to rehab (2) Cellulitis: (3) Diabetic ulcer of toe of left foot associated with type 2 diabetes mellitus, limited to breakdown of skin: (4) Diabetic ulcer of toe of right foot associated with type 2 diabetes mellitus, limited to breakdown of skin: (5) Venous ulcers of both lower extremities: This is a 75-year-old male who has significant past medical history of T2DM, HTN, HLD, PAF anticoagulated on Eliquis, CKD stage III, PVD, BPH, neuropathy, bilateral foot drop, amatory dysfunction secondary to spinal stenosis, multiple wounds including pressure wounds to bilateral buttock and venous wounds to lower extremities following wound clinic, Oohaulg-Fofdv-Hcady, tobacco abuse who presents to ED secondary to frequent falls and weakness x 2 weeks. on Dapto and Cefepime Continue daily wound care Wound care nurse on board Will transition to oral abx in am (6) Paroxysmal atrial fibrillation: Rate controlled on metoprolol and digoxin Continue Eliquis for thrombotic control (7) Hypertension: BP stable Continue metoprolol and ramipril and torsemide 20 mg twice weekly (8) CKD (chronic kidney disease), stage III: Creatinine on admission 1.2, baseline cr 1.1 Creatinine 1.07 today Monitor renal function (9) Diabetes mellitus type 2 with complications: Uncontrolled DM with last A1c 8.2 on 05/16/2020 Continue to hold metformin, glimepiride and Jardiance Continue Lantus/NovoLog per protocol Recommend tighter control of BSG in setting of multiple wounds (10) Effusion, left knee: Due to recent fall Knee xray showed moderate joint effusion is noted with associated soft tissue swelling. No acute fracture or dislocation. Continue pain control (11) Peripheral arterial disease: Patient recently seen and evaluated by vascular medicine Patient with mixed vascular disease. Superficial venous disease amenable to endovenous ablation and recommend bilateral GSV at some point CT ANGIO recommended as outpatient Duplex consistent with bilateral SFA stenosis and right MEG occlusion Statin on hold due to the Dapto Continue eliquis as outpt (12) COPD (chronic obstructive pulmonary disease): Continue [place] and as needed albuterol Counseling on smoking cessation (13) Ybxdflh-Anbpn-Qptnk disease: (14) Tobacco use: Counseling on smoking cessation Continue nicotine patch (15) Opioid dependence: On fentanyl patch 37 mcg every 72 hours along with OxyIR Per epic patient prescribed oxycodone 10 mg, 1.5 tabs every 6 hours as needed, but sometimes he takes 2 tabs Continue oxycodone to 10mg q6h for now, but pt has been asking for 20mg Gabapentin changed to 300mg HS and D/C the 100mg BID (16) DVT prophylaxis: On eliquis Disposition Possible discharge once medically stable Admission and Anticipated Discharge Date Admission Date: June 19, 2020 Subjective Pt was seen and examined Pt said that he feel lousy today He said that he fell asleep around 3AM He is asking for more pain medication Denies any chest pain, palpitation, dizziness and SOB Physical Exam Physical Exam: General- No acute distress Head- atraumatic Eyes- PERRL, EOMI, ENT- oropharynx clear Neck- supple, no JVD Lungs- clear to auscultation Heart- regular rhythm; no murmur Abdomen- normal bowel sounds, soft, nontender Extremities- no calf tenderness, bilateral lower extremities with wound dressings in place, erythema, multiple wounds noted to feet Neuro- alert, oriented x 3; PERRL, EOMI; no facial palsy; no dysarthria Skin- warm & dry Results & Data Results & Data ([facility]) Vital Signs (Past 12 Hours) Vital Signs Temp Pulse Pulse Resp BP BP Pulse Ox 06/20/20 11:32 36.6 C 77 18 129/69 94 06/20/20 07:21 78 06/20/20 07:19 36.8 C 76 19 129/77 95 06/20/20 03:43 76 16 97 06/20/20 03:22 36.6 C 77 20 106/64 97
[2020-06-20] MEDS: DIGOXIN 0.125 MG TAB PO SCH (16:14)
[2020-06-20] MEDS: FINASTERIDE 5 MG TAB PO SCH (16:14)
[2020-06-20] MEDS: GABAPENTIN 300 MG CAP PO SCH (18:07)
[2020-06-20] MEDS: FENOFIBRATE NANOCRYSTALLIZED 48 MG TABLET PO SCH (21:41)
[2020-06-20] MEDS: BACLOFEN 10 MG TAB PO SCH (21:42)
[2020-06-20] MEDS: MAGNESIUM OXIDE 400 MG TAB PO SCH (21:42)
[2020-06-20] MEDS: VITAMIN B COMPLEX TAB PO SCH (21:45)
[2020-06-20] MEDS: CHOLECALCIFEROL 1,000 UNITS 25 MCG TAB PO SCH (21:46)
[2020-06-20] MEDS: DOXYCYCLINE HYCLATE 100 MG CAP PO SCH (23:21)
[2020-06-21] MEDS: CEFEPIME 2,000 MG in SYRINGE 0 ML IV SCH ×3 (00:21→14:55)
[2020-06-21] MEDS: CHECK FENTANYL PATCH PLACEMENT SCH ×8 (00:22→23:04)
[2020-06-21] MEDS: ALBUT/IPRATROP 3MG/0.5MG NEB 3 ML VIAL NEB PRN ×2 (02:13→07:12)
[2020-06-21] MEDS: POLYETHYLENE (MIRALAX) 17 GM PACK PO SCH (07:27)
[2020-06-21] MEDS: DOXYCYCLINE HYCLATE 100 MG CAP PO SCH (07:27)
[2020-06-21] MEDS: NEOMYCIN/POLYMYX/BACITR OINT 15 GM TUBE EXT SCH ×2 (07:27→19:59)
[2020-06-21] MEDS: METOPROLOL SUCC 25MG EXT REL TAB PO SCH ×2 (07:27→19:56)
[2020-06-21] MEDS: ENALAPRIL MALEATE 10 MG TAB PO SCH ×2 (07:28→19:57)
[2020-06-21] MEDS: MULTIVITAMIN TAB PO SCH (07:28)
[2020-06-21] MEDS: ASCORBIC ACID 500 MG TAB PO SCH (07:28)
[2020-06-21] MEDS: ZINC SULFATE 220 MG CAPSULE PO SCH (07:28)
[2020-06-21] MEDS: DICLOFENAC SOD 1% GEL 100 GM TUBE EXT SCH ×2 (07:28→19:59)
[2020-06-21] MEDS: NICOTINE 21 MG/24 HR TDSY TD SCH (07:29)
[2020-06-21] MEDS: PANTOprazole 40 MG TAB PO SCH (07:29)
[2020-06-21] MEDS: MICONAZOLE NITRATE POWDER 43 GM EXT SCH ×2 (07:29→20:01)
[2020-06-21] MEDS: FLUTICASONE/VILANTEROL 100/25MCG 14 PUFFS/INHALER INH SCH (07:31)
[2020-06-21] MEDS: INSULIN ASPART 100 UNITS/ML 3 ML PEN SC SCH ×4 (08:02→20:56)
[2020-06-21] MEDS: OXYCODONE HCL IR 5 MG TAB (IMMEDIATE RELEASE) PO PRN ×3 (08:02→22:25)
[2020-06-21] MEDS: INSULIN GLARGINE SOLOSTAR 100 UNITS/ML 3 ML PEN SC SCH ×2 (08:03→20:54)
[2020-06-21 08:12] LABS: Creatinine Clr Calc Pharmacy 67.7 ml/min; Est GFR (African American) 74.3; Est GFR (Non-African American) 64.1
[2020-06-21] MEDS: fentaNYL 25 MCG/HR TDSY TD SCH (14:54)
[2020-06-21] MEDS: fentaNYL 12 MCG/HR TDSY TD SCH (14:54)
[2020-06-21] MEDS: DIGOXIN 0.125 MG TAB PO SCH (16:16)
[2020-06-21] MEDS: FINASTERIDE 5 MG TAB PO SCH (16:16)
--- NOTE | 2020-06-21 18:44 | Hospitalist Progress Note ---
Date of Service June 21, 2020 Assessment & Plan (1) Ambulatory dysfunction: Fatigue S/P Fall Pt said that he has been feeling tired since Gabapentin increased Possible related to meds (fentanyl and gabapenti) CT head showed no acute intracranial abnormality Fall precaution PT/OT eval OT recommended SNF Finally agreed to go to rehab (2) Cellulitis: (3) Diabetic ulcer of toe of left foot associated with type 2 diabetes mellitus, limited to breakdown of skin: (4) Diabetic ulcer of toe of right foot associated with type 2 diabetes mellitus, limited to breakdown of skin: (5) Venous ulcers of both lower extremities: This is a 75-year-old male who has significant past medical history of T2DM, HTN, HLD, PAF anticoagulated on Eliquis, CKD stage III, PVD, BPH, neuropathy, bilateral foot drop, amatory dysfunction secondary to spinal stenosis, multiple wounds including pressure wounds to bilateral buttock and venous wounds to lower extremities following wound clinic, Usqubmt-Alqzv-Mhleq, tobacco abuse who presents to ED secondary to frequent falls and weakness x 2 weeks. 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 Transition to PO abx with cefuroxime PO BID (6) Paroxysmal atrial fibrillation: Rate controlled on metoprolol and digoxin Continue Eliquis for thrombotic control (7) Hypertension: BP stable Continue metoprolol and ramipril and torsemide 20 mg twice weekly (8) CKD (chronic kidney disease), stage III: Creatinine on admission 1.2, baseline cr 1.1 Creatinine 1.07 today Monitor renal function (9) Diabetes mellitus type 2 with complications: Uncontrolled DM with last A1c 8.2 on 05/16/2020 Continue to hold metformin, glimepiride and Jardiance Continue Lantus/NovoLog per protocol Recommend tighter control of BSG in setting of multiple wounds (10) Effusion, left knee: Due to recent fall Knee xray showed moderate joint effusion is noted with associated soft tissue swelling. No acute fracture or dislocation. Continue pain control (11) Peripheral arterial disease: Patient recently seen and evaluated by vascular medicine Patient with mixed vascular disease. Superficial venous disease amenable to endovenous ablation and recommend bilateral GSV at some point CT ANGIO recommended as outpatient Duplex consistent with bilateral SFA stenosis and right MEG occlusion Statin on hold due to the Dapto Continue eliquis as outpt (12) COPD (chronic obstructive pulmonary disease): Continue [place] and as needed albuterol Counseling on smoking cessation (13) Vcrifff-Edwqr-Vbupp disease: (14) Tobacco use: Counseling on smoking cessation Continue nicotine patch (15) Opioid dependence: On fentanyl patch 37 mcg every 72 hours along with OxyIR Per epic patient prescribed oxycodone 10 mg, 1.5 tabs every 6 hours as needed, but sometimes he takes 2 tabs Continue oxycodone to 10mg q6h for now, but pt has been asking for 20mg Gabapentin changed to 300mg HS and D/C the 100mg BID (16) DVT prophylaxis: On eliquis Disposition waiting for placement to rehab Admission and Anticipated Discharge Date Admission Date: June 19, 2020 Subjective Pt was seen and examined Sitting in chair with no distress Pt said that pain is ok He continues taking the narcotic round the clock He finally agreed to go to rehab Denies any chest pain, palpitation, dizziness and SOB Physical Exam Physical Exam: General- No acute distress Head- atraumatic Eyes- PERRL, EOMI, ENT- oropharynx clear Neck- supple, no JVD Lungs- clear to auscultation Heart- regular rhythm; no murmur Abdomen- normal bowel sounds, soft, nontender Extremities- no calf tenderness, bilateral lower extremities with wound dressings in place, erythema, multiple wounds noted to feet Neuro- alert, oriented x 3; PERRL, EOMI; no facial palsy; no dysarthria Skin- warm & dry Results & Data Results & Data ([facility]) Vital Signs (Past 12 Hours) Vital Signs Temp Pulse Pulse Resp BP Pulse Ox 06/21/20 16:16 79 06/21/20 16:00 76 06/21/20 15:29 36.8 C 76 20 116/60 94 06/21/20 11:00 36.6 C 78 20 109/66 94 06/21/20 08:36 76 06/21/20 07:28 36.5 C 75 20 120/69 97
[2020-06-21] MEDS: GABAPENTIN 300 MG CAP PO SCH (19:55)
[2020-06-21] MEDS: ACETAMINOPHEN 325 MG TAB PO PRN (19:56)
[2020-06-21] MEDS: VITAMIN B COMPLEX TAB PO SCH (19:57)
[2020-06-21] MEDS: CHOLECALCIFEROL 1,000 UNITS 25 MCG TAB PO SCH (19:57)
[2020-06-21] MEDS: FENOFIBRATE NANOCRYSTALLIZED 48 MG TABLET PO SCH (19:58)
[2020-06-21] MEDS: BACLOFEN 10 MG TAB PO SCH (20:00)
[2020-06-21] MEDS: MAGNESIUM OXIDE 400 MG TAB PO SCH (20:00)
[2020-06-21] MEDS: cefUROXime axetil 500 MG TAB PO SCH (20:54)
[2020-06-22] MEDS: FLUTICASONE/VILANTEROL 100/25MCG 14 PUFFS/INHALER INH SCH (08:39)
[2020-06-22] MEDS: CHECK FENTANYL PATCH PLACEMENT SCH ×6 (08:39→22:46)
[2020-06-22] MEDS: cefUROXime axetil 500 MG TAB PO SCH ×2 (08:40→21:46)
[2020-06-22] MEDS: INSULIN GLARGINE SOLOSTAR 100 UNITS/ML 3 ML PEN SC SCH ×2 (08:40→21:50)
[2020-06-22] MEDS: MICONAZOLE NITRATE POWDER 43 GM EXT SCH ×2 (08:40→21:47)
[2020-06-22] MEDS: NICOTINE 21 MG/24 HR TDSY TD SCH (08:41)
[2020-06-22] MEDS: NEOMYCIN/POLYMYX/BACITR OINT 15 GM TUBE EXT SCH ×2 (08:41→21:48)
[2020-06-22] MEDS: MULTIVITAMIN TAB PO SCH (08:42)
[2020-06-22] MEDS: POLYETHYLENE (MIRALAX) 17 GM PACK PO SCH (08:42)
[2020-06-22] MEDS: DICLOFENAC SOD 1% GEL 100 GM TUBE EXT SCH ×2 (08:43→21:49)
[2020-06-22] MEDS: ENALAPRIL MALEATE 10 MG TAB PO SCH ×2 (08:44→21:49)
[2020-06-22] MEDS: PANTOprazole 40 MG TAB PO SCH (08:44)
[2020-06-22] MEDS: METOPROLOL SUCC 25MG EXT REL TAB PO SCH ×2 (08:44→21:48)
[2020-06-22] MEDS: OXYCODONE HCL IR 5 MG TAB (IMMEDIATE RELEASE) PO PRN ×3 (08:45→22:46)
[2020-06-22] MEDS: ASCORBIC ACID 500 MG TAB PO SCH (08:45)
[2020-06-22] MEDS: INSULIN ASPART 100 UNITS/ML 3 ML PEN SC SCH ×4 (08:47→21:51)
[2020-06-22] MEDS: ACETAMINOPHEN 325 MG TAB PO PRN (13:41)
[2020-06-22] MEDS: FINASTERIDE 5 MG TAB PO SCH (16:32)
[2020-06-22] MEDS: DIGOXIN 0.125 MG TAB PO SCH (16:32)
[2020-06-22] MEDS: GABAPENTIN 300 MG CAP PO SCH (18:38)
--- NOTE | 2020-06-22 19:15 | Hospitalist Progress Note ---
Date of Service June 22, 2020 Assessment & Plan (1) Ambulatory dysfunction: Fatigue S/P Fall Pt said that he has been feeling tired since Gabapentin increased Possible related to meds (fentanyl and gabapenti) CT head showed no acute intracranial abnormality Fall precaution PT/OT eval OT recommended SNF Finally agreed to go to rehab Waiting for placement to rehab (2) Cellulitis: (3) Diabetic ulcer of toe of left foot associated with type 2 diabetes mellitus, limited to breakdown of skin: (4) Diabetic ulcer of toe of right foot associated with type 2 diabetes mellitus, limited to breakdown of skin: (5) Venous ulcers of both lower extremities: Pressure ulcer of unspecified buttock, stage 2 POA This is a 75-year-old male who has significant past medical history of T2DM, HTN, HLD, PAF anticoagulated on Eliquis, CKD stage III, PVD, BPH, neuropathy, bilateral foot drop, amatory dysfunction secondary to spinal stenosis, multiple wounds including pressure wounds to bilateral buttock and venous wounds to lower extremities following wound clinic, Lkcqszu-Llzdr-Byebv, tobacco abuse who presents to ED secondary to frequent falls and weakness x 2 weeks. 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 Transition to PO abx with cefuroxime PO BID Continue PO cefuroxime (6) Paroxysmal atrial fibrillation: Rate controlled on metoprolol and digoxin Continue Eliquis for thrombotic control (7) Hypertension: BP stable Continue metoprolol and ramipril and torsemide 20 mg twice weekly (8) CKD (chronic kidney disease), stage III: Creatinine on admission 1.2, baseline cr 1.1 Creatinine 1.07 today Monitor renal function (9) Diabetes mellitus type 2 with complications: Uncontrolled DM with last A1c 8.2 on 05/16/2020 Continue to hold metformin, glimepiride and Jardiance Continue Lantus/NovoLog per protocol Recommend tighter control of BSG in setting of multiple wounds (10) Effusion, left knee: Due to recent fall Knee xray showed moderate joint effusion is noted with associated soft tissue swelling. No acute fracture or dislocation. Continue pain control (11) Peripheral arterial disease: Patient recently seen and evaluated by vascular medicine Patient with mixed vascular disease. Superficial venous disease amenable to endovenous ablation and recommend bilateral GSV at some point CT ANGIO recommended as outpatient Duplex consistent with bilateral SFA stenosis and right MEG occlusion Statin on hold due to the Dapto Continue eliquis as outpt (12) COPD (chronic obstructive pulmonary disease): Continue Francis and as needed albuterol Counseling on smoking cessation (13) Wbgvtav-Xliuq-Uqggm disease: (14) Tobacco use: Counseling on smoking cessation Continue nicotine patch (15) Opioid dependence: On fentanyl patch 37 mcg every 72 hours along with OxyIR Per epic patient prescribed oxycodone 10 mg, 1.5 tabs every 6 hours as needed, but sometimes he takes 2 tabs Continue oxycodone to 10mg q6h for now, but pt has been asking for 20mg Gabapentin changed to 300mg HS and D/C the 100mg BID (16) DVT prophylaxis: On eliquis Disposition waiting for placement to rehab Admission and Anticipated Discharge Date Admission Date: June 19, 2020 Subjective Pt was seen and examined Sitting in chair with no distress Pt said that he feels a lot better today He said that his pain control Denies any chest pain, palpitation, dizziness and SOB Physical Exam Physical Exam: General- No acute distress Head- atraumatic Eyes- PERRL, EOMI, ENT- oropharynx clear Neck- supple, no JVD Lungs- clear to auscultation Heart- regular rhythm; no murmur Abdomen- normal bowel sounds, soft, nontender Extremities- no calf tenderness, bilateral lower extremities with wound dressings in place, erythema, multiple wounds noted to feet Neuro- alert, oriented x 3; PERRL, EOMI; no facial palsy; no dysarthria Skin- warm & dry Results & Data Results & Data ([facility]) Vital Signs (Past 12 Hours) Vital Signs Temp Pulse Pulse Resp BP Pulse Ox 06/22/20 16:32 79 06/22/20 14:43 36.8 C 78 20 103/63 94 06/22/20 11:00 36.7 C 77 20 123/69 94 06/22/20 07:38 36.7 C 76 20 133/79 91
[2020-06-22] MEDS ORDERED: BENZONATATE 100 MG CAPSULE PO PRN (20:53)
[2020-06-22] MEDS: BACLOFEN 10 MG TAB PO SCH (21:46)
[2020-06-22] MEDS: MAGNESIUM OXIDE 400 MG TAB PO SCH (21:47)
[2020-06-22] MEDS: FENOFIBRATE NANOCRYSTALLIZED 48 MG TABLET PO SCH (21:47)
[2020-06-22] MEDS: VITAMIN B COMPLEX TAB PO SCH (21:49)
[2020-06-22] MEDS: CHOLECALCIFEROL 1,000 UNITS 25 MCG TAB PO SCH (21:49)
[2020-06-23] MEDS: CHECK FENTANYL PATCH PLACEMENT SCH ×4 (07:59→16:20)
--- NOTE | 2020-06-23 08:01 | XRay Report ---
XR chest 1V portable HISTORY: cough COMPARISON: Chest 06/18/2020. FINDINGS: There are low lung volumes. The heart remains mildly enlarged. No pleural effusions. No pne umothorax. Mild diffuse interstitial thickening. Old, healed left-sided rib fractures. Cervical spina l fusion hardware is noted. IMPRESSION: Cardiomegaly with mild diffuse interstitial thickening. This could be chronic or due to mild congesti ve change. ACT 112: Negative or not required by law. Electronically signed by: Mina Buchanan M.D. 06/23/2020 7:59 AM
[2020-06-23] MEDS: METOPROLOL SUCC 25MG EXT REL TAB PO SCH (08:24)
[2020-06-23] MEDS: cefUROXime axetil 500 MG TAB PO SCH (08:25)
[2020-06-23] MEDS: PANTOprazole 40 MG TAB PO SCH (08:25)
[2020-06-23] MEDS: ZINC SULFATE 220 MG CAPSULE PO SCH (08:25)
[2020-06-23] MEDS: MULTIVITAMIN TAB PO SCH (08:26)
[2020-06-23] MEDS: NICOTINE 21 MG/24 HR TDSY TD SCH (08:26)
[2020-06-23] MEDS: ASCORBIC ACID 500 MG TAB PO SCH (08:26)
[2020-06-23] MEDS: ENALAPRIL MALEATE 10 MG TAB PO SCH (08:27)
[2020-06-23] MEDS: FLUTICASONE/VILANTEROL 100/25MCG 14 PUFFS/INHALER INH SCH (08:28)
[2020-06-23] MEDS: INSULIN GLARGINE SOLOSTAR 100 UNITS/ML 3 ML PEN SC SCH (08:29)
[2020-06-23] MEDS: MICONAZOLE NITRATE POWDER 43 GM EXT SCH (08:30)
[2020-06-23] MEDS: INSULIN ASPART 100 UNITS/ML 3 ML PEN SC SCH ×3 (08:31→17:23)
[2020-06-23] MEDS: POLYETHYLENE (MIRALAX) 17 GM PACK PO SCH (08:33)
[2020-06-23] MEDS: NEOMYCIN/POLYMYX/BACITR OINT 15 GM TUBE EXT SCH (08:36)
[2020-06-23] MEDS: DICLOFENAC SOD 1% GEL 100 GM TUBE EXT SCH (08:41)
[2020-06-23] MEDS: OXYCODONE HCL IR 5 MG TAB (IMMEDIATE RELEASE) PO PRN (12:04)
--- NOTE | 2020-06-23 16:52 | Hospitalist Progress Note ---
Date of Service June 23, 2020 Assessment & Plan (1) Ambulatory dysfunction: Fatigue S/P Fall Pt said that he has been feeling tired since Gabapentin increased Possible related to meds (fentanyl and gabapenti) CT head showed no acute intracranial abnormality Fall precaution PT/OT eval OT recommended SNF Finally agreed to go to rehab Will discharge to [facility] today for rehab (2) Cellulitis: (3) Diabetic ulcer of toe of left foot associated with type 2 diabetes mellitus, limited to breakdown of skin: (4) Diabetic ulcer of toe of right foot associated with type 2 diabetes mellitus, limited to breakdown of skin: (5) Venous ulcers of both lower extremities: Pressure ulcer of unspecified buttock, stage 2 POA This is a 75-year-old male who has significant past medical history of T2DM, HTN, HLD, PAF anticoagulated on Eliquis, CKD stage III, PVD, BPH, neuropathy, bilateral foot drop, amatory dysfunction secondary to spinal stenosis, multiple wounds including pressure wounds to bilateral buttock and venous wounds to lower extremities following wound clinic, Ltgxdow-Hxfsg-Ukgdy, tobacco abuse who presents to ED secondary to frequent falls and weakness x 2 weeks. 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 Transition to PO abx with cefuroxime PO BID Will complete PO cefuroxime course Follow up with wound care (6) Paroxysmal atrial fibrillation: Rate controlled on metoprolol and digoxin Continue Eliquis for thrombotic control (7) Hypertension: BP stable Continue metoprolol and ramipril and torsemide 20 mg twice weekly (8) CKD (chronic kidney disease), stage III: Creatinine on admission 1.2, baseline cr 1.1 Creatinine 1.07 today Monitor renal function (9) Diabetes mellitus type 2 with complications: Uncontrolled DM with last A1c 8.2 on 05/16/2020 Continue to hold metformin, glimepiride and Jardiance Continue Lantus/NovoLog per protocol Recommend tighter control of BSG in setting of multiple wounds (10) Effusion, left knee: Due to recent fall Knee xray showed moderate joint effusion is noted with associated soft tissue swelling. No acute fracture or dislocation. Continue pain control Swelling improved (11) Peripheral arterial disease: Patient recently seen and evaluated by vascular medicine Patient with mixed vascular disease. Superficial venous disease amenable to endovenous ablation and recommend bilateral GSV at some point CT ANGIO recommended as outpatient Duplex consistent with bilateral SFA stenosis and right MEG occlusion Statin on hold due to the Dapto Continue eliquis as outpt (12) COPD (chronic obstructive pulmonary disease): Continue [place] and as needed albuterol Counseling on smoking cessation (13) Zvqraby-Kxfmw-Gaptw disease: (14) Tobacco use: Counseling on smoking cessation Continue nicotine patch (15) Opioid dependence: On fentanyl patch 37 mcg every 72 hours along with OxyIR Per epic patient prescribed oxycodone 10 mg, 1.5 tabs every 6 hours as needed, but sometimes he takes 2 tabs Continue oxycodone to 10mg q6h for now, but pt has been asking for 20mg Gabapentin changed to 300mg HS and Discontinued gabapentin 100mg BID during the day (16) DVT prophylaxis: On eliquis Disposition Discharge to [facility] today Continue follow up with wound care Admission and Anticipated Discharge Date Admission Date: June 19, 2020 Subjective Pt was seen and examined Sitting in chair with no distress Pt said that he feels much better He said that he has been able to sleep at night He said that he is more awake during the day He said that he was able to use the walker to walk to the bathroom today Spoke to her daughter over the phone and provided with update Denies any chest pain, palpitation, dizziness and SOB Physical Exam Physical Exam: General- No acute distress Head- atraumatic Eyes- PERRL, EOMI, ENT- oropharynx clear Neck- supple, no JVD Lungs- clear to auscultation Heart- regular rhythm; no murmur Abdomen- normal bowel sounds, soft, nontender Extremities- no calf tenderness, bilateral lower extremities with wound dressings in place, erythema, multiple wounds noted to feet Neuro- alert, oriented x 3; PERRL, EOMI; no facial palsy; no dysarthria Skin- warm & dry Results & Data Results & Data ([facility]) Vital Signs (Past 12 Hours) Vital Signs Temp Pulse Pulse Resp BP Pulse Ox 06/23/20 14:54 36.5 C 72 16 116/67 94 06/23/20 14:20 72 06/23/20 10:46 36.3 C L 76 16 136/78 96 06/23/20 08:00 36.6 C 60 16 145/79 H 95 06/23/20 07:00 70
[2020-06-23] MEDS: DIGOXIN 0.125 MG TAB PO SCH (17:53)
[2020-06-23] MEDS: FINASTERIDE 5 MG TAB PO SCH (17:54)
--- NOTE | 2020-06-24 09:02 | Discharge Summary ---
Date of Service June 23, 2020 Admission HPI Per Admitting Provider This is a 75-year-old male who has significant past medical history of T2DM, HTN, HLD, PAF anticoagulated on Eliquis, CKD stage III, PVD, BPH, neuropathy, bilateral foot drop, amatory dysfunction secondary to spinal stenosis, multiple wounds including pressure wounds to bilateral buttock and venous wounds to lower extremities following wound clinic, Ticghgb-Mjncl-Ioecw, tobacco abuse who presents to ED secondary to frequent falls and weakness x 2 weeks. He complains of being very tired and and sleeping well at night. He is mostly wheel chair bound in a motorized scooter. Feels appetite is okay. He denies f/c/s,SOB, Chest pain, abd pain, n/v/d, TELLO, change in bowel or urinary habits. He has a chronic productive cough 2/2 to smoking, described as white and occasionally yellow. Cough is not different than usual. He is moving bowels daily or every other day. Previously had difficulty with narcotic induced constipation. Today he states he was up in the chair and he fell asleep in chair and fell forward. This is the first time this happened. He feels he hit his head and has abrasion to face. Last fall prior to today was 1 week ago. Pt is on high dose narcotics wit Fentanyl patch 37.5mcg Q72hr along with oxycodone 15mg po q6hr prn. Pt states he sometimes takes 20mg. Pt has multiple wounds to buttock and lower ext. He feels buttock wounds are improving but leg/feet wounds are worsening. In ED patient remained hemodynamically stable. Lab work notable for elevated WBC 12.40k, H&H 11.4 and 38.8, platelet 275, sodium 135, BUN 38, creatinine 1.24, glucose 178, albumin 2.9, TSH 1.8. The x-ray reveals left knee moderate effusion, chest x-ray consistent with bibasilar atelectasis and pulmonary vascular congestion. Head CT without acute pathology but does reveal soft tissue gas bubbles likely iatrogenic. Also of note is polypoid mucosal density in right maxillary sinus. In ED patient received IVF, IV Dilaudid, antiemetics and IV daptomycin due to concern for cellulitis. It was felt patient would benefit from rehab although after discussion with patient and family per ED provider they wish for inpatient evaluation due to concern for COVID and SNF. Daughter is from [place] and will be coming up within the next couple days. Admission Exam Per Admitting Provider Constitutional: Elderly appearing, male, sitting up in bed, very drowsy, arouses to verbal stimulation but falls asleep easily, WD/WN, vitals as above, obese, answers questions appropriately Head: Normocephalic, abrasion inferior to left eye Eyes: PERRL, conjunctivae normal, anicteric sclerae ENMT: external ear and nose normal, oropharynx normal, edentulous Neck: trachea midline, no thyromegaly normal visual inspection Respiratory: normal respiratory effort, lungs clear to auscultation, bibasilar rhonchi, no wheeze or rales. Normal insp/exp effort, no accessory muscle use Cardiovascular: Irregular rate, irregular rhythm, normal S1-S2, no edema vessels: no JVD or carotid bruit Chest: normal inspection of chest Abdomen: Protuberant abdomen, normal bowel sounds, soft, nontender, no hepatosplenomegaly Musculoskeletal: Patient with flexure contractures to bilateral hands, Skin: warm and dry normal turgor, bilateral lower extremities with wound dressings in place, erythema, multiple wounds noted to feet Neurologic: PERRL, EOMI, accommodation nl, no face palsy, no dysarthria CN's II-XI intact bilaterally and moves all extremities Psychiatric: A+Ox3, drowsy, euthymic affect Lymphatic: no cervical or axillary lymphadenopathy : deferred Principal Diagnosis Ambulatory dysfunction: Fatigue Cellulitis Diabetic ulcer of toe of left foot associated with type 2 diabetes mellitus, li mited to breakdown of skin: Diabetic ulcer of toe of right foot associated with type 2 diabetes mellitus, limited to breakdown of skin: Venous ulcers of both lower extremities: Pressure ulcer of unspecified buttock Paroxysmal atrial fibrillation: Hypertension: CKD (chronic kidney disease), stage III: Diabetes mellitus type 2 with complications: Effusion, left knee: Peripheral arterial disease: COPD (chronic obstructive pulmonary disease): Mimmima-Jwsra-Ijomg disease: Tobacco use: Opioid dependence: Discharge Exam General- No acute distress Head- atraumatic Eyes- PERRL, EOMI, ENT- oropharynx clear Neck- supple, no JVD Lungs- clear to auscultation Heart- regular rhythm; no murmur Abdomen- normal bowel sounds, soft, nontender Extremities- no calf tenderness, bilateral lower extremities with wound dressings in place, erythema, multiple wounds noted to feet Neuro- alert, oriented x 3; PERRL, EOMI; no facial palsy; no dysarthria Skin- warm & dry Discharge Data Allergies Allergy/AdvReac Type Severity Reaction Status Date / Time Penicillins Allergy Intermediate RASH Verified 06/18/20 07:29 sulfamethoxazole AdvReac Mild arf, Verified 06/18/20 07:29 [From Bactrim] hyperkalemia trimethoprim [From Bactrim] AdvReac Mild arf, Verified 06/18/20 07:29 hyperkalemia Consultations 06/18/20 10:55 ED Decision to Admit Stat 06/18/20 13:23 Consult Case Management - Discharge Planning Routine Ordered Studies 06/18/20 07:10 CT head/brain wo con Stat XR chest 1V portable HISTORY: cough COMPARISON: Chest 06/18/2020. FINDINGS: There are low lung volumes. The heart remains mildly enlarged. No pleural effusions. No pneumothorax. Mild diffuse interstitial thickening. Old, healed left-sided rib fractures. Cervical spinal fusion hardware is noted. IMPRESSION: Cardiomegaly with mild diffuse interstitial thickening. This could be chronic or due to mild congestive change. ACT 112: Negative or not required by law. Electronically signed by: Mina Buchanan M.D. 06/23/2020 7:59 AM Dictated: 06/23/20 0759 Transcribed: 06/23/20 0759 XR knee LT 1 or 2V routine HISTORY: 75 years-old Male Pt c/o left knee pain acute left knee pain without reported trauma COMPARISON: 04/07/2018 TECHNIQUE: 2 views of the left knee FINDINGS: Chondrocalcinosis. Mild to moderate medial with moderate to severe lateral and patellofemoral compartment osteoarthritis. Large corticated ossification adjacent to the inferior patella redemonstrated measuring 1.6 cm. Soft tissue thickening in the region of the patellar tendon is unchanged. There is moderate diffuse soft tissue prominence of the knee, most pronounced laterally. Unchanged area of ill-defined sclerosis involves the proximal metadiaphyseal central medullary space of the proximal tibia, 3.1 cm. Moderate joint effusion. IMPRESSION: 1. Moderate joint effusion is noted with associated soft tissue swelling. No acute fracture or dislocation. 2. Chondrocalcinosis with tricompartmental osteoarthritis, moderate to severe within the lateral and patellofemoral compartments. ACT 112: Negative or not required by law. The above report was generated using voice recognition software. It may contain grammatical, syntax or spelling errors. Electronically signed by: Iván Murphy M.D. 06/18/2020 10:37 AM Dictated: 06/18/20 1035 Transcribed: 06/18/20 1035 XR chest 1V portable HISTORY: 75 years-old Male weakness acute weakness COMPARISON: Chest radiograph 04/15/2020 TECHNIQUE: Portable AP view of the chest FINDINGS: Cardiac silhouette is enlarged. Pulmonary vascular congestion with mild interstitial coarsening. No pneumothorax, pleural effusion or lobar airspace consolidation. Mild bibasilar densities favoring atelectasis. Healed remote left-sided rib fractures. Degenerative changes of the shoulders and spine. IMPRESSION: 1. Cardiomegaly with pulmonary vascular congestion. 2. Mild bibasilar densities favoring atelectasis. ACT 112: Negative or not required by law. The above report was generated using voice recognition software. It may contain grammatical, syntax or spelling errors. Electronically signed by: Iván Murphy M.D. 06/18/2020 7:47 AM Dictated: 06/18/20 0745 Transcribed: 06/18/20744 CT head/brain wo con CLINICAL HISTORY: Head trauma. Patient on anticoagulants. COMPARISON STUDY: 04/13/2020 TECHNIQUE: Axial CT of the brain is performed from the vertex to the skull base. IV contrast was not administered for this examination. A dose lowering technique was utilized adhering to the principles of ALARA. CT DOSE: 1382.10 mGy.cm FINDINGS: No intra or extra-axial mass lesions are visualized. There is no CT evidence of acute cortical infarction. There is no evidence of midline shift. There is no ac kendrick hemorrhage. No calvarial fractures are visualized. There are minimal white matter hypodensities likely on a small vessel basis. There is no evidence of pathologic ventricular dilatation. There is a polypoid mucosal density within the right maxillary sinus. There is opacification of anterior ethmoid and frontal sinus air cells. There is moderate air present within the soft tissues. This appears to be venous gas likely secondary to an iatrogenic etiology IMPRESSION: 1. No evidence of acute intracranial injury 2. Multiple gas bubbles within soft tissues. This appears to be venous gas likel y secondary to an iatrogenic etiology. ACT 112: Negative or not required by law. Electronically signed by: Justin Israel M.D. 06/18/2020 8:55 AM Dictated: 06/18/20849 Transcribed: 06/18/20849 Hospital Course (1) Ambulatory dysfunction: Fatigue S/P Fall Pt said that he has been feeling tired since Gabapentin increased Possible related to meds (fentanyl and gabapenti) CT head showed no acute intracranial abnormality Fall precaution PT/OT eval OT recommended SNF Finally agreed to go to rehab Will [facility] to [facility]hab (2) Cellulitis: (3) Diabetic ulcer of toe of left foot associated with type 2 diabetes mellitus, limited to breakdown of skin: (4) Diabetic ulcer of toe of right foot associated with type 2 diabetes mellitus, limited to breakdown of skin: (5) Venous ulcers of both lower extremities: Pressure ulcer of unspecified buttock, stage 2 POA This is a 75-year-old male who has significant past medical history of T2DM, HTN, HLD, PAF anticoagulated on Eliquis, CKD stage III, PVD, BPH, neuropathy, bilateral foot drop, amatory dysfunction secondary to spinal stenosis, multiple wounds including pressure wounds to bilateral buttock and venous wounds to lower extremities following wound clinic, Qnvbftr-Yvxub-Dbken, tobacco abuse who presents to ED secondary to frequent falls and weakness x 2 weeks. 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 Transition to PO abx with cefuroxime PO BID Will complete PO cefuroxime course Follow up with wound care (6) Paroxysmal atrial fibrillation: Rate controlled on metoprolol and digoxin Continue Eliquis for thrombotic control (7) Hypertension: BP stable Continue metoprolol and ramipril and torsemide 20 mg twice weekly (8) CKD (chronic kidney disease), stage III: Creatinine on admission 1.2, baseline cr 1.1 Creatinine 1.07 today Monitor renal function (9) Diabetes mellitus type 2 with complications: Uncontrolled DM with last A1c 8.2 on 05/16/2020 Continue to hold metformin, glimepiride and Jardiance Continue Lantus/NovoLog per protocol Recommend tighter control of BSG in setting of multiple wounds (10) Effusion, left knee: Due to recent fall Knee xray showed moderate joint effusion is noted with associated soft tissue swelling. No acute fracture or dislocation. Continue pain control Swelling improved (11) Peripheral arterial disease: Patient recently seen and evaluated by vascular medicine Patient with mixed vascular disease. Superficial venous disease amenable to endovenous ablation and recommend bilateral GSV at some point CT ANGIO recommended as outpatient Duplex consistent with bilateral SFA stenosis and right MEG occlusion Statin on hold due to the Dapto Continue eliquis as outpt (12) COPD (chronic obstructive pulmonary disease): Continue [place] and as needed albuterol Counseling on smoking cessation (13) Lfophrg-Paith-Jpmsw disease: (14) Tobacco use: Counseling on smoking cessation Continue nicotine patch (15) Opioid dependence: On fentanyl patch 37 mcg every 72 hours along with OxyIR Per epic patient prescribed oxycodone 10 mg, 1.5 tabs every 6 hours as needed, but sometimes he takes 2 tabs Continue oxycodone to 10mg q6h for now, but pt has been asking for 20mg Gabapentin changed to 300mg HS and Discontinued gabapentin 100mg BID during the day (16) DVT prophylaxis: On eliquis Disposition Discharge to [facility] today Continue follow up with wound care Total Time Total Time Spent Total Time Spent (In Minutes): 35 minutes Total Time Includes: Examination of the Patient, Discharge Planning, Medication Reconciliation, Communication With Other Providers and Other Discharge Plan Discharge Items Patient Disposition: Transfer Intermediate Fac Reason For Visit: FALL, LOWER EXTREMITY CELLULITIS Discharge Diagnosis: Ambulatory dysfunction: Fatigue Cellulitis Diabetic ulcer of toe of left foot associated with type 2 diabetes mellitus, limited to breakdown of skin: Diabetic ulcer of toe of right foot associated with type 2 diabetes mellitus, limited to breakdown of skin: Venous ulcers of both lower extremities: Pressure ulcer of unspecified buttock Paroxysmal atrial fibrillation: Hypertension: CKD (chronic kidney disease), stage III: Diabetes mellitus type 2 with complications: Effusion, left knee: Peripheral arterial disease: COPD (chronic obstructive pulmonary disease): Giorcyt-Fouub-Aprjm disease: Tobacco use: Opioid dependence: Activity: Resume your previous activity Non-emergency contact: Primary Care Provider Call non-emergency contact if: you have any medication questions Follow-up/Referrals: Mohan Perry MD [Primary Care Provider] - Diet: Carb Consistent or DM2 Addtl Attending Provider Instructions: Follow up with your primary care provider once discharge from [facility] Continue physical and occupational therapy Follow up with wound care Fall precaution Continue daily wound care/dressing changes Complete the course of the antibiotic with cefuroxime Please hold next dose of any narcotic if you become lethargy or drowsy Do not operate any machine while on any narcotic Counseling on smoking cessation Continue monitor your blood sugar Follow a healthy diabetes diet and limited concentrated sweet intake Pending Studies at Discharge: No Stand-Alone Forms: My [facility] Skilled Items Patient informed of condition?: Yes DNR: No Discharge Level of Care: Skilled Communicable Disease: No Discharge Prognosis: Stable Lines: None Urinary Catheter: No Medications and DC Order Prescriptions: New cefuroxime axetil 500 mg Tablet 500 mg PO BID 5 Days Qty: 10 RF: 0 Continued celecoxib [Celebrex] 200 mg capsule 200 mg PO DAILY PRN (Reason: Pain) RF: 0 ascorbic acid (vitamin C) [Vitamin C] 1,000 mg Tablet 1,000 mg PO QAM RF: 0 omeprazole 40 mg Capsule,Delayed Release(Dr/Ec) 40 mg PO QAM RF: 0 metformin 1,000 mg Tablet 1,000 mg PO BID RF: 0 glimepiride 4 mg Tablet 4 mg PO QAM RF: 0 digoxin [Digox] 125 mcg Tablet 125 mcg PO DAILY@1600 RF: 0 metoprolol succinate 25 mg Tablet Extended Release 24 Hr 12.5 mg PO BID RF: 0 albuterol sulfate [Ventolin HFA] 90 mcg/actuation Hfa Aerosol Inhaler 2 puff INHALATION Q6H PRN (Reason: Shortness Of Breath) RF: 0 finasteride 5 mg Tablet 5 mg PO QDD RF: 0 Eliquis 5 mg Tablet 5 mg PO BID RF: 0 Jardiance 10 mg Tablet 10 mg PO QAM RF: 0 pravastatin [Pravachol] 20 mg tablet 20 mg PO HS RF: 0 fenofibrate nanocrystallized [Tricor] 48 mg tablet 48 mg PO HS RF: 0 acetaminophen [Tylenol Extra Strength] 500 mg Tablet 1,000 mg PO TID PRN (Reason: Pain) RF: 0 zinc 50 mg Tablet 25 mg PO Q OTHER DAY RF: 0 nicotine 21 mg/24 hr patch 24 hour 1 patch transdermal DAILY RF: 0 fentanyl 37.5 mcg/hour patch 72 hour 37.5 mcg transdermal Q72H Qty: 2 RF: 0 ramipril 5 mg Capsule 5 mg PO BID RF: 0 B-complex with vitamin C [Super B Complex-Vitamin C] Tablet 1 tab PO QPM RF: 0 fluticasone propion-salmeterol [Advair Diskus] 250-50 mcg/dose Blister With Device 1 inh INHALATION BID RF: 0 polyethylene glycol 3350 [Miralax] 17 gram Powder In Packet 17 g PO QAM RF: 0 diclofenac sodium 1 % Gel 2 g TOPICAL BID RF: 0 multivitamin Tablet 1 tab PO QAM RF: 0 lidocaine 5 % adhesive patch,medicated 1 patch topical UD PRN (Reason: Pain) RF: 0 torsemide 20 mg tablet 20 mg PO TUTH RF: 0 baclofen 10 mg tablet 10 mg PO HS RF: 0 gabapentin [Neurontin] 300 mg capsule 300 mg PO HS RF: 0 Calmoseptine 0.44-20.6 % Ointment 1 applic TOPICAL DAILY PRN (Reason: Rash) RF: 0 magnesium oxide 400 mg (241.3 mg magnesium) tablet 400 mg PO PM RF: 0 cholecalciferol (vitamin D3) 2,000 unit tablet 2,000 units PO QPM RF: 0 Changed oxycodone 10 mg tablet 20 mg PO Q6H MDD 60mg/day PRN (Reason: Pain) Qty: 10 RF: 0 Discontinued gabapentin [Neurontin] 100 mg capsule 100 mg PO BID RF: 0 Discharge Orders: Discharge Order (Routine); Ordered 06/23/20 Ordered By: Yo Hodges Admission Data Admit Date/Time: 06/19/20 16:39 Attending Provider: Yo Hodges Admit Provider: Adrian Oh Primary Care Provider: Mohan Perry Other Providers: Adrian Oh ; Nathan Ndiaye [facility] ; [facility] Other Interventions: Discharge Summary Assessment (RN) Last Done: 06/23/20 17:15
[2020-06-28] MEDS ORDERED: INFLUENZA ADMINISTRATION CHARGE ONE (09:00)
[2020-06-28] MEDS ORDERED: INFLUENZA VACCINE HIGH DOSE 65+ 0.5 ML SYR IM ONE (09:00)
== END 2020-06-23 18:35 | DRG 638 ==
LOC: ED 07:02 → 2N 07:02 → SUATTDRO 11:02 → 2N 12:53